=== PATIENT | male | born 1950 | race Caucasian/White ===

== ENCOUNTER 2023-10-12 18:34 | Emergency (ER) | payer MEDICARE, SELFPAY ==
[2023-10-12 18:38] VITALS: BP 168/75; PULSE 60; TEMP 36.6; O2SAT 96; BMI 31.6
--- NOTE | 2023-10-12 18:58 | XR_ITS ---
[facility] [id number] Patient Name: JOSÉ LUIS ENRIQUEZ MRN: [id number] date: 1950 Sex: M Assigned Patient Location: ER Current Patient Location: ED.MAIN Accession/Order Number: [id number] Exam Date: 10/12/2023 19:34 Report Date: 10/12/2023 21:35 At the request of: NOEMI BUCKLEY Procedure: XR foot LT min 3V XR foot LT min 3V 10/12/2023 7:34 PM EDT CLINICAL INDICATION: Left foot pain COMPARISON: 05/02/2022 TECHNIQUE: 3 views of the left foot. FINDINGS: Extensive postsurgical changes are redemonstrated with plate and screw fixation involving the mid and hindfoot with osteoarthritic changes. Lucencies are noted surrounding the paired hindfoot screws and compared midfoot screws. There are edematous changes of the lateral foot. No definite lytic lesions are seen. There is soft tissue edema of the lateral foot. Vascular calcifications are also present. XR/XR foot LT min 3V IMPRESSION: No definite lytic changes. There are lucencies noted surrounding the paired hindfoot and midfoot screws which may be related to loosening or infection. Three-phase bone scan as clinically warranted. Electronically authenticated by: RAD GRIGGS Date: 10/12/2023 21:35
[2023-10-12 19:24] LABS: Basophils Absolute Auto 0.1 10^3/uL (0.0-0.1); Basophils Percent Auto 0.9 % (0.2-2.0); Eosinophils Absolute Auto 0.4 10^3/uL (0.0-0.7); Eosinophils Percent Auto 4.4 % (0.9-7.0); Hematocrit 35.1 % (42.0-54.0); Immature Granulocytes Abs Auto 0.07 10^3/uL (0.00-0.03); Immature Granulocytes Pct Auto 0.8 % (0.0-0.5); Lymphocytes Absolute Auto 1.7 10^3/uL (1.2-3.8); Lymphocytes Percent Auto 19.6 % (20.5-60.0); Mean Corpuscular HGB Conc 31.3 g/dL (29.9-35.2); Mean Corpuscular Hemoglobin 28.1 pg (25.9-34.0); Mean Corpuscular Volume 89.8 fL (80.0-94.0); Mean Platelet Volume 8.8 fL (9.5-13.5); Monocytes Absolute Auto 0.6 10^3/uL (0.3-0.8); Monocytes Percent Auto 7.2 % (1.7-12.0); Neutrophils Absolute Auto 5.8 10^3/uL (1.4-6.5); Neutrophils Percent Auto 67.1 % (43.0-75.0); Platelet Count 276 10^3/uL (150-450); Red Blood Count 3.91 10^6/uL (4.70-6.10); Red Cell Distribution Width 15.2 % (11.0-15.0); White Blood Count 8.7 10^3/uL (4.0-11.0)
[2023-10-12 19:44] LABS: Alanine Aminotransferase 24 U/L (16-63); Albumin Globulin Ratio 0.8; Albumin Level 3.5 g/dL (3.4-5.0); Alkaline Phosphatase 91 U/L (46-116); Aspartate Amino Transferase 22 U/L (15-37); BUN Creatinine Ratio 15.7; Bilirubin Total 0.3 mg/dL (0.2-1.0); Calcium 8.9 mg/dL (8.5-10.1); Carbon Dioxide 28.3 mmol/L (21.0-32.0); Chloride 104 mmol/L (98-107); Estimated GFR (African America 54 (>=60); Estimated GFR (Non-African Ame 45 (>=60); Globulin 4.2 g/dL; Glucose 215 mg/dL (74-106); Potassium 4.3 mmol/L (3.5-5.1); Sodium 143 mmol/L (136-145); Total Protein 7.7 g/dL (6.4-8.2)
[2023-10-12] MEDS: VANCOMYCIN HCL 1,000 MG in 0.9 % SODIUM CHLORIDE 250 ML 250 MG IV (19:45)
[2023-10-12 19:47] VITALS: BP 148/74; PULSE 60; O2SAT 96
--- NOTE | 2023-10-12 19:51 | ED_ITS ---
Documented by User: Araceli Izabella 10/12/23 20:41 HPI - Extremity Problem General Chief complaint: Extremity Problem, Nontraumatic Stated complaint: LOWER EXTREMITY PAIN-SORE ON L FOOT/FRANCESCA Time Seen by Provider: 10/12/23 18:58 Source: patient Mode of arrival: Wheelchair History of Present Illness HPI Narrative: -year-old male with a history of peripheral neuropathy and type 2 diabetes presents here with a chief complaint of ulceration to the left lateral aspect of his foot. Patient had history of osteomyelitis with reconstructive surgery to this foot 3 years ago. Patient recently got a new diabetic shoe and had some blistering noted. He has an Measuring 1.5 x 1 cm in length and width of induration. Minimal fluctuance is noted in the sole of the foot. Patient states he Takes amoxicillin daily for this foot. He has seen Dr. Ma for reconstruction in the past. Patient's noted the blood on his sock today. They tried to call Francesca's office but he was closed. Patient denies any nausea fever or chills. Related Data Previous Rx's ?Medication ?Instructions ?Recorded amoxicillin 500 mg-potassium 1 tab PO Q12H #20 tabs 10/12/23 clavulanate 125 mg tablet (Augmentin) sulfamethoxazole 800 1 tab PO BID 10 days #20 tabs 10/12/23 mg-trimethoprim 160 mg tablet (Bactrim DS) Allergies Allergy/AdvReac Type Severity Reaction Status Date / Time No Known Drug Allergies Allergy Verified 10/12/23 18:46 Review of Systems ROS Narrative All Systems are negative except as noted/marked.All systems reviewed and otherwise negative Exam Narrative Exam Narrative: Nurses note and vital signs reviewed and patient is not hypoxic. General: The patient appears well and in no apparent distress. Patient is resting comfortably on cart. Skin: Warm, dry, no pallor noted. There is no rash noted. Head: Normocephalic, atraumatic Eye: Normal conjunctiva, no drainage, EOMI. PERRL Respiratory: Patient is in no distress, no accessory muscle use, lungs are clear to auscultation, no wheezing, rales or rhonchi Back: non-tender, no CVA tenderness bilaterally to percussion. GI: Normal bowel sounds, no tenderness to palpation, no masses appreciated. No rebound, guarding, or rigidity noted. Musculoskeletal: 1.5x1 cm ulceration to the left foot lateral asect. The patient has no evidence of calf tenderness, no pitting edema, symmetrical pulses noted bilaterally Neurological: A&O x4, normal speech Psychiatric: Cooperative Constitutional Vital Signs, click to edit/add: Last Vital Signs Temp 98 F 10/12/23 18:38 Pulse 60 10/12/23 19:47 Resp 18 10/12/23 19:47 BP 148/74 H 10/12/23 19:47 Pulse Ox 96 10/12/23 19:47 O2 Del Method Room Air 10/12/23 19:47 Course Vital Signs Vital signs: Vital Signs Temperature 98 F 10/12/23 18:38 Pulse Rate 60 10/12/23 18:38 Respiratory Rate 20 10/12/23 18:38 Blood Pressure 168/75 H 10/12/23 18:38 Pulse Oximetry 96 10/12/23 18:38 Temperature 98 F 10/12/23 18:38 Pulse Rate 60 10/12/23 19:47 Respiratory Rate 18 10/12/23 19:47 Blood Pressure 148/74 H 10/12/23 19:47 Pulse Oximetry 96 10/12/23 19:47 Oxygen Delivery Method Room Air 10/12/23 19:47 MDM - Extremity (Nontraumatic) Lab Data Labs: Lab Results 10/12/23 Range/Units 19:13 WBC 8.7 (4.0-11.0) 10^3/uL RBC 3.91 L (4.70-6.10) 10^6/uL Hgb 11.0 L (14.0-18.0) g/dL Hct 35.1 L (42.0-54.0) % MCV 89.8 (80.0-94.0) fL MCH 28.1 (25.9-34.0) pg MCHC 31.3 (29.9-35.2) g/dL RDW 15.2 H (11.0-15.0) % Plt Count 276 (150-450) 10^3/uL MPV 8.8 L (9.5-13.5) fL Neut % (Auto) 67.1 (43.0-75.0) % Lymph % (Auto) 19.6 L (20.5-60.0) % Mcpherson % (Auto) 7.2 (1.7-12.0) % Eos % (Auto) 4.4 (0.9-7.0) % Baso % (Auto) 0.9 (0.2-2.0) % Neut # (Auto) 5.8 (1.4-6.5) 10^3/uL Lymph # (Auto) 1.7 (1.2-3.8) 10^3/uL Mcpherson # (Auto) 0.6 (0.3-0.8) 10^3/uL Eos # (Auto) 0.4 (0.0-0.7) 10^3/uL Baso # (Auto) 0.1 (0.0-0.1) 10^3/uL Abs Immat Gran (auto) 0.07 H (0.00-0.03) 10^3/uL Imm/Tot Granulo (auto) 0.8 H (0.0-0.5) % ESR 89 H (<=20) mm/hr Sodium 143 (136-145) mmol/L Potassium 4.3 (3.5-5.1) mmol/L Chloride 104 (98-107) mmol/L Carbon Dioxide 28.3 (21.0-32.0) mmol/L Anion Gap 15.0 BUN 24.0 H (7.0-18.0) mg/dL Creatinine 1.53 H (0.70-1.30) mg/dL Est GFR ( Amer) 54 L (>=60) Est GFR (Non-Af Amer) 45 L (>=60) BUN/Creatinine Ratio 15.7 Glucose 215 H (74-106) mg/dL Calcium 8.9 (8.5-10.1) mg/dL Total Bilirubin 0.3 (0.2-1.0) mg/dL AST 22 (15-37) U/L ALT 24 (16-63) U/L Alkaline Phosphatase 91 (46-116) U/L C-Reactive Protein <0.50 (<=0.50) mg/dL Total Protein 7.7 (6.4-8.2) g/dL Albumin 3.5 (3.4-5.0) g/dL Globulin 4.2 g/dL Albumin/Globulin Ratio 0.8 Imaging Data Foot x-ray: Radiologist's impression: ITS Impressions Foot X-Ray 10/12/23 18:58 IMPRESSION: No definite lytic changes. There are lucencies noted surrounding the paired hindfoot and midfoot screws which may be related to loosening or infection. Three-phase bone scan as clinically warranted. Electronically authenticated by: RAD GRIGGS Date: 10/12/2023 21:35 Discharge Plan Discharge Stand Alone Forms: Portal Instructions Chief Complaint: Extremity Problem, Nontraumatic Clinical Impression: Foot ulcer Patient Disposition: Home, Self-Care Time of Disposition Decision: 21:45 Condition: Good Mode of Transportation: Private Vehicle Prescriptions / Home Meds: New sulfamethoxazole-trimethoprim [Bactrim DS] 800-160 mg tablet 1 tab PO BID 10 Days Qty: 20 0RF amoxicillin-pot clavulanate [Augmentin] 500-125 mg tablet 1 tab PO Q12H Qty: 20 0RF Print Language: Greek Instructions: Foot Ulcers in a Person with Diabetes (ED) Referrals: JANET PAEZ [Primary Care Provider] - 1 week Jude Ma DPM [Physician] - 10/15/23 (call for appointment sunday) Documented by User: Remberto Angeles MD 10/12/23 21:47 HPI - Extremity Problem General Chief complaint: Extremity Problem, Nontraumatic Stated complaint: LOWER EXTREMITY PAIN-SORE ON L FOOT/FRANCESCA Time Seen by Provider: 10/12/23 18:58 Related Data Previous Rx's ?Medication ?Instructions ?Recorded amoxicillin 500 mg-potassium 1 tab PO Q12H #20 tabs 10/12/23 clavulanate 125 mg tablet (Augmentin) sulfamethoxazole 800 1 tab PO BID 10 days #20 tabs 10/12/23 mg-trimethoprim 160 mg tablet (Bactrim DS) Allergies Allergy/AdvReac Type Severity Reaction Status Date / Time No Known Drug Allergies Allergy Verified 10/12/23 18:46 Exam Constitutional Vital Signs, click to edit/add: Last Vital Signs Temp 98 F 10/12/23 18:38 Pulse 60 10/12/23 19:47 Resp 18 10/12/23 19:47 BP 148/74 H 10/12/23 19:47 Pulse Ox 96 10/12/23 19:47 O2 Del Method Room Air 10/12/23 19:47 Course Vital Signs Vital signs: Vital Signs Temperature 98 F 10/12/23 18:38 Pulse Rate 60 10/12/23 18:38 Respiratory Rate 20 10/12/23 18:38 Blood Pressure 168/75 H 10/12/23 18:38 Pulse Oximetry 96 10/12/23 18:38 Temperature 98 F 10/12/23 18:38 Pulse Rate 60 10/12/23 19:47 Respiratory Rate 18 10/12/23 19:47 Blood Pressure 148/74 H 10/12/23 19:47 Pulse Oximetry 96 10/12/23 19:47 Oxygen Delivery Method Room Air 10/12/23 19:47 MDM - Extremity (Nontraumatic) MDM Narrative Medical decision making narrative: Blood work is nonspecific, ESR is elevated and WBC is normal. X-ray findings are discussed with the patient. He was given IV vancomycin here and prescribed Augmentin and Bactrim. He has an appointment with Dr. Ma in 3 days, Sunday, October 14. He will keep that appointment. Treatment diagnosis and follow- up were discussed with the patient Differential Diagnosis Differential diagnosis: Likely other (Abs thus, cellulitis, osteomyelitis) Lab Data Attestation: I reviewed the patient's lab results. Labs: Lab Results 10/12/23 Range/Units 19:13 WBC 8.7 (4.0-11.0) 10^3/uL RBC 3.91 L (4.70-6.10) 10^6/uL Hgb 11.0 L (14.0-18.0) g/dL Hct 35.1 L (42.0-54.0) % MCV 89.8 (80.0-94.0) fL MCH 28.1 (25.9-34.0) pg MCHC 31.3 (29.9-35.2) g/dL RDW 15.2 H (11.0-15.0) % Plt Count 276 (150-450) 10^3/uL MPV 8.8 L (9.5-13.5) fL Neut % (Auto) 67.1 (43.0-75.0) % Lymph % (Auto) 19.6 L (20.5-60.0) % Mcpherson % (Auto) 7.2 (1.7-12.0) % Eos % (Auto) 4.4 (0.9-7.0) % Baso % (Auto) 0.9 (0.2-2.0) % Neut # (Auto) 5.8 (1.4-6.5) 10^3/uL Lymph # (Auto) 1.7 (1.2-3.8) 10^3/uL Mcpherson # (Auto) 0.6 (0.3-0.8) 10^3/uL Eos # (Auto) 0.4 (0.0-0.7) 10^3/uL Baso # (Auto) 0.1 (0.0-0.1) 10^3/uL Abs Immat Gran (auto) 0.07 H (0.00-0.03) 10^3/uL Imm/Tot Granulo (auto) 0.8 H (0.0-0.5) % ESR 89 H (<=20) mm/hr Sodium 143 (136-145) mmol/L Potassium 4.3 (3.5-5.1) mmol/L Chloride 104 (98-107) mmol/L Carbon Dioxide 28.3 (21.0-32.0) mmol/L Anion Gap 15.0 BUN 24.0 H (7.0-18.0) mg/dL Creatinine 1.53 H (0.70-1.30) mg/dL Est GFR ( Amer) 54 L (>=60) Est GFR (Non-Af Amer) 45 L (>=60) BUN/Creatinine Ratio 15.7 Glucose 215 H (74-106) mg/dL Calcium 8.9 (8.5-10.1) mg/dL Total Bilirubin 0.3 (0.2-1.0) mg/dL AST 22 (15-37) U/L ALT 24 (16-63) U/L Alkaline Phosphatase 91 (46-116) U/L C-Reactive Protein <0.50 (<=0.50) mg/dL Total Protein 7.7 (6.4-8.2) g/dL Albumin 3.5 (3.4-5.0) g/dL Globulin 4.2 g/dL Albumin/Globulin Ratio 0.8 Imaging Data Foot x-ray: Radiologist's impression: ITS Impressions Foot X-Ray 10/12/23 18:58
[2023-10-12 19:59] LABS: Erythrocyte Sedimentation Rate 89 mm/hr (<=20)
[2023-10-12 20:00] LABS: C Reactive Protein <0.50 mg/dL (<=0.50)
[2023-10-12 21:58] VITALS: BP 154/70; PULSE 60; O2SAT 96
[2023-10-13 19:22] LABS: A. calcoaceticus-baumannii Cpx NOT DETECTED (NOT DETECTE); Bacteroides fragilis NOT DETECTED (NOT DETECTE); Candida albicans NOT DETECTED (NOT DETECTE); Candida auris NOT DETECTED (NOT DETECTE); Candida glabrata NOT DETECTED (NOT DETECTE); Candida krusei NOT DETECTED (NOT DETECTE); Candida parapsilosis NOT DETECTED (NOT DETECTE); Candida tropicalis NOT DETECTED (NOT DETECTE); Cryptococcus neoformans/gattii NOT DETECTED (NOT DETECTE); Enterobacter cloacae complex NOT DETECTED (NOT DETECTE); Enterobacterales NOT DETECTED (NOT DETECTE); Enterococcus faecalis NOT DETECTED (NOT DETECTE); Enterococcus faecium NOT DETECTED (NOT DETECTE); Haemophilus influenzae NOT DETECTED (NOT DETECTE); Klebsiella aerogenes NOT DETECTED (NOT DETECTE); Klebsiella pneumoniae group NOT DETECTED (NOT DETECTE); Listeria monocytogenes NOT DETECTED (NOT DETECTE); Neisseria meningitidis NOT DETECTED (NOT DETECTE); Proteus spp. NOT DETECTED (NOT DETECTE); Pseudomonas aeruginosa NOT DETECTED (NOT DETECTE); Salmonella spp. NOT DETECTED (NOT DETECTE); Serratia marcescens NOT DETECTED (NOT DETECTE); Staphylococcus epidermidis NOT DETECTED (NOT DETECTE); Staphylococcus lugdunensis NOT DETECTED (NOT DETECTE); Stenotrophomonas maltophilia NOT DETECTED (NOT DETECTE); Streptococcus agalactiae NOT DETECTED (NOT DETECTE); Streptococcus pneumoniae NOT DETECTED (NOT DETECTE); Streptococcus pyogenes NOT DETECTED (NOT DETECTE); Streptococcus spp. NOT DETECTED (NOT DETECTE)
[2023-10-13 20:19] LABS: Staphylococcus spp. DETECTED (NOT DETECTE)
[2023-10-13 20:36] LABS: Source BLOOD
== END 2023-10-12 22:31 | disposition home or self-care (01) ==
PROVIDERS: Physician Assistant; Emergency Provider Emergency Medicine; PCP Student in an Organized Health Care Education/Training Program
DX: E11.621 Type 2 diabetes mellitus with foot ulcer (principal); L97.529 Non-pressure chronic ulcer of other part of left foot with unspecified severity; E11.42 Type 2 diabetes mellitus with diabetic polyneuropathy
CPT/HCPCS: 36415; 73630; 80053; 85025; 85652; 86140; 87040; 87070; 87150; 87186; 96365; 99284; J3370

== ENCOUNTER 2023-10-15 15:12 | Outpatient (OUT) | payer MEDICARE, SELFPAY | END 2023-10-15 15:13 | disposition home or self-care (01) | LOC: WC 15:12 | PROVIDERS: PCP Student in an Organized Health Care Education/Training Program; Visit Provider Physician Assistant | DX: E11.621 Type 2 diabetes mellitus with foot ulcer (principal); L97.422 Non-pressure chronic ulcer of left heel and midfoot with fat layer exposed | CPT/HCPCS: A6213; G0463 ==

== ENCOUNTER 2023-10-22 15:19 | Outpatient (OUT) | payer MEDICARE, SELFPAY | END 2023-10-22 15:20 | disposition home or self-care (01) | LOC: WC 15:19 | PROVIDERS: PCP Student in an Organized Health Care Education/Training Program; Visit Provider Physician Assistant | DX: E11.621 Type 2 diabetes mellitus with foot ulcer (principal); L97.422 Non-pressure chronic ulcer of left heel and midfoot with fat layer exposed | CPT/HCPCS: 29445; A6213 ==

== ENCOUNTER 2023-10-26 09:30 | Outpatient (OUT) | payer MEDICARE, SELFPAY | END 2023-10-26 09:31 | disposition home or self-care (01) | LOC: WC 10-31 09:03 | PROVIDERS: PCP Student in an Organized Health Care Education/Training Program; Visit Provider Podiatrist Foot & Ankle Surgery | DX: E11.621 Type 2 diabetes mellitus with foot ulcer (principal); L97.422 Non-pressure chronic ulcer of left heel and midfoot with fat layer exposed | CPT/HCPCS: A6213; G0463 ==

== ENCOUNTER 2023-11-06 15:44 | Outpatient (OUT) | payer MEDICARE, SELFPAY | END 2023-11-06 15:45 | disposition home or self-care (01) | LOC: WC 15:44 | PROVIDERS: PCP Student in an Organized Health Care Education/Training Program; Visit Provider Podiatrist Foot & Ankle Surgery | DX: E11.621 Type 2 diabetes mellitus with foot ulcer (principal); L97.422 Non-pressure chronic ulcer of left heel and midfoot with fat layer exposed | CPT/HCPCS: 11043; A6213 ==

== ENCOUNTER 2023-11-07 19:40 | Inpatient (IN) | payer MEDICARE, SELFPAY ==
[2023-11-07 19:45] VITALS: BP 134/64; PULSE 60; TEMP 36.8; O2SAT 94; BMI 31.6
--- NOTE | 2023-11-07 19:54 | XR_ITS ---
The [address] [address] Patient Name: JOSÉ LUIS ENRIQUEZ MRN: [id number] date: 1950 Sex: M Assigned Patient Location: ER Current Patient Location: ED.MAIN Accession/Order Number: [id number] Exam Date: 11/07/2023 20:00 Report Date: 11/07/2023 21:17 At the request of: DIMA MATAMOROS Procedure: XR foot LT min 3V EXAM: XR foot LT min 3V , 11/07/2023 HISTORY: foot infection, surgery to diabetic ulcer on 5mtp COMPARISON: Previous x-ray from 10/12/2023 TECHNIQUE: X-rays of the left foot 3 views. FINDINGS: Extensive fixation hardware and surgical changes are seen in the left foot which appears without significant change compared to previous imaging. Underlying osteopenia and degenerative changes are noted. Hallux valgus deformity. Degenerative changes at the interphalangeal and metatarsophalangeal joints of the first digit. No obvious evidence of osteomyelitis. XR/XR foot LT min 3V IMPRESSION: No radiographic evidence of acute osteomyelitis left foot. Extensive postsurgical and degenerative changes with osteopenia left foot. Electronically authenticated by: LORENA BURK Date: 11/07/2023 21:17
--- NOTE | 2023-11-07 19:55 | ED.GENADUL1 ---
HPI HPI - General Adult General Chief complaint: Wound/Laceration Stated complaint: wound check Time Seen by Provider: 11/07/23 19:40 Source: patient Mode of arrival: Wheelchair Limitations: no limitations History of Present Illness HPI narrative: Patient is a 72-year-old male with a history of diabetes and peripheral neuropathy who presents to the emergency department for redness and pain to the left foot. He has a history of Charcot foot, he has had diabetic foot ulcers debrided in the past and does have a history of osteomyelitis. He saw Dr. Tk Aguayo's office yesterday for debridement of a wound to the left lateral foot over the fifth metatarsal. There was minimal surrounding erythema prior to the surgery but today the patient woke up with worsening redness, swelling and pain over the foot. His daughter feels as though the left leg is warm but there has been no redness of the leg. Patient has not had any fevers or vomiting. No drainage. He takes amoxicillin as a chronic maintenance medication and is back on that medication since his surgery in the office yesterday. He was not prescribed any additional or different antibiotics. Related Data Home Medications ?Medication ?Instructions ?Recorded ?Confirmed alprazolam 0.25 mg tablet 0.25 mg PO .Q8 PRN anxiety 11/07/23 11/07/23 amiodarone 200 mg tablet 200 mg PO DAILY 11/07/23 11/07/23 amlodipine 5 mg tablet 5 mg PO DAILY 11/07/23 11/07/23 apixaban 5 mg tablet (Eliquis) 5 mg PO BID 11/07/23 11/07/23 aripiprazole 10 mg tablet 10 mg PO DAILY 11/07/23 11/07/23 atorvastatin 80 mg tablet 80 mg PO DAILY 11/07/23 11/07/23 carbidopa 25 mg-levodopa 100 mg 1 tab PO QID 11/07/23 11/07/23 tablet cyanocobalamin (vitamin B-12) 1,000 mcg IM .Q 30 Days 11/07/23 11/07/23 1,000 mcg/mL injection solution empagliflozin 10 mg tablet 10 mg PO DAILY 11/07/23 11/07/23 (Jardiance) enalapril maleate 10 mg tablet 10 mg PO Q12H 11/07/23 11/07/23 furosemide 20 mg tablet mg 11/07/23 glimepiride 2 mg tablet 2 mg PO TID 11/07/23 11/07/23 insulin aspart U-100 100 unit/mL 10 unit subcut .QHS 11/07/23 11/07/23 (3 mL) subcutaneous pen (Novolog FlexPen U-100 Insulin aspart) isosorbide mononitrate 60 mg 60 mg PO DAILY 11/07/23 11/07/23 tablet,extended release 24 hr lamotrigine 200 mg tablet 200 mg PO DAILY 11/07/23 11/07/23 levothyroxine 150 mcg tablet mcg 11/07/23 levothyroxine 175 mcg tablet 175 mcg PO QAM 11/07/23 11/07/23 metformin 1,000 mg tablet 1,000 mg PO BID 11/07/23 11/07/23 pantoprazole 40 mg tablet,delayed 40 mg PO DAILY 11/07/23 11/07/23 release potassium chloride 20 mEq 20 meq PO DAILY 11/07/23 11/07/23 tablet,extended release spironolactone 25 mg tablet 25 mg PO DAILY 11/07/23 11/07/23 tamsulosin 0.4 mg capsule 0.4 mg PO Q24H 11/07/23 11/07/23 torsemide 20 mg tablet 20 mg PO DAILY 11/07/23 11/07/23 trihexyphenidyl 2 mg tablet 2 mg PO DAILY 11/07/23 11/07/23 umeclidinium 62.5 mcg-vilanterol 1 inh inhalation Q24H 11/07/23 11/07/23 25 mcg/actuation powdr for inhalation (Anoro Ellipta) warfarin 4 mg tablet 4 mg PO DAILY 11/07/23 11/07/23 Previous Rx's ?Medication ?Instructions ?Recorded amoxicillin 500 mg-potassium 1 tab PO Q12H #20 tabs 10/12/23 clavulanate 125 mg tablet (Augmentin) Allergies Allergy/AdvReac Type Severity Reaction Status Date / Time No Known Drug Allergies Allergy Verified 11/07/23 19:45 Opioid HPI Opioid Management Most Recent Opioid Data: No Data to Display Review of Systems ROS Constitutional Denies: fever or chills Ears, nose, mouth, and throat Denies: throat pain or nasal congestion Respiratory Denies: shortness of breath Gastrointestinal Denies: nausea or vomiting Musculoskeletal Denies: back pain Integumentary/Breast Reports: redness, skin pain and skin tenderness; Denies: rash Hematologic/Lymphatic Denies: easy bruising or easy bleeding Exam Narrative Exam Narrative: Gen.: Awake, alert, in no distress Head: Normocephalic, atraumatic ENT: Moist mucous membranes Respiratory: No respiratory distress Extremities: 3 x 2 cm ulcerated area to the left lateral foot over the fifth metatarsal. No bony exposure noted. Blanching erythema and edema noted over the lateral and dorsal aspect of the left foot. No swelling or redness noted to the plantar aspect of the left foot. No red streaking to the leg. Psych: Normal mood and affect Neuro: No focal neuro deficit Skin: Warm, dry, intact Constitutional Vital Signs, click to edit/add: Last Vital Signs Temp 98.2 F 11/07/23 19:45 Pulse 60 11/07/23 19:45 Resp 18 11/07/23 19:45 BP 134/64 11/07/23 19:45 Pulse Ox 94 L 11/07/23 19:45 O2 Del Method Room Air 11/07/23 19:45 Course Vital Signs Vital signs: Vital Signs Temperature 98.2 F 11/07/23 19:45 Pulse Rate 60 11/07/23 19:45 Respiratory Rate 18 11/07/23 19:45 Blood Pressure 134/64 11/07/23 19:45 Pulse Oximetry 94 L 11/07/23 19:45 Oxygen Delivery Method Room Air 11/07/23 19:45 Temperature 98.2 F 11/07/23 19:45 Pulse Rate 60 11/07/23 19:45 Respiratory Rate 18 11/07/23 19:45 Blood Pressure 134/64 11/07/23 19:45 Pulse Oximetry 94 L 11/07/23 19:45 Oxygen Delivery Method Room Air 11/07/23 19:45 Medical Decision Making MDM Narrative Medical decision making narrative: Lab studies show normal white blood cell count although CRP and sed rates are elevated with stable chronic kidney disease. X-rays do not show any evidence of abscess or osteomyelitis at this time. Patient treated with IV Zosyn and vancomycin and case was discussed with Dr. Cruz for podiatry. We will observe the patient overnight for IV antibiotics and podiatry will see the patient in the morning, possible procedure versus conservative management. Patient verbalizes understanding. Stable at time of admission to the hospitalist for observation. Medical Records Medical records reviewed: Yes I reviewed the patient's medical records Lab Data Lab results reviewed: Yes I reviewed the patient's lab results Labs: Lab Results 11/07/23 Range/Units 20:11 WBC 9.2 (4.0-11.0) 10^3/uL RBC 3.65 L (4.70-6.10) 10^6/uL Hgb 10.2 L (14.0-18.0) g/dL Hct 33.3 L (42.0-54.0) % MCV 91.2 (80.0-94.0) fL MCH 27.9 (25.9-34.0) pg MCHC 30.6 (29.9-35.2) g/dL RDW 14.3 (11.0-15.0) % Plt Count 265 (150-450) 10^3/uL MPV 9.2 L (9.5-13.5) fL Neut % (Auto) 70.6 (43.0-75.0) % Lymph % (Auto) 18.1 L (20.5-60.0) % Collin % (Auto) 8.4 (1.7-12.0) % Eos % (Auto) 1.7 (0.9-7.0) % Baso % (Auto) 0.5 (0.2-2.0) % Neut # (Auto) 6.5 (1.4-6.5) 10^3/uL Lymph # (Auto) 1.7 (1.2-3.8) 10^3/uL Collin # (Auto) 0.8 (0.3-0.8) 10^3/uL Eos # (Auto) 0.2 (0.0-0.7) 10^3/uL Baso # (Auto) 0.1 (0.0-0.1) 10^3/uL Abs Immat Gran (auto) 0.06 H (0.00-0.03) 10^3/uL Imm/Tot Granulo (auto) 0.7 H (0.0-0.5) % ESR 107 H (<=20) mm/hr Sodium 140 (136-145) mmol/L Potassium 4.1 (3.5-5.1) mmol/L Chloride 102 (98-107) mmol/L Carbon Dioxide 29.3 (21.0-32.0) mmol/L Anion Gap 12.8 BUN 25.0 H (7.0-18.0) mg/dL Creatinine 1.80 H (0.70-1.30) mg/dL Est GFR ( Amer) 45 L (>=60) Est GFR (Non-Af Amer) 37 L (>=60) BUN/Creatinine Ratio 13.9 Glucose 252 H (74-106) mg/dL Lactate 3.6 H* (0.4-2.0) mmol/L Calcium 8.4 L (8.5-10.1) mg/dL C-Reactive Protein 2.65 H (<=0.50) mg/dL Imaging Data XR foot: Attestation: I have reviewed the pertinent imaging results. Discharge Plan Discharge Chief Complaint: Wound/Laceration Patient Disposition: Admitted as Observation Time of Disposition Decision: 21:03
--- NOTE | 2023-11-07 20:13 | PC.NURSE ---
Wound to left outer foot, round/oval in shape with white center with slight redness surrounding, serous drainage to old dressing.
[2023-11-07 20:38] LABS: Basophils Absolute Auto 0.1 10^3/uL (0.0-0.1); Basophils Percent Auto 0.5 % (0.2-2.0); Eosinophils Absolute Auto 0.2 10^3/uL (0.0-0.7); Eosinophils Percent Auto 1.7 % (0.9-7.0); Hematocrit 33.3 % (42.0-54.0); Hemoglobin 10.2 g/dL (14.0-18.0); Immature Granulocytes Abs Auto 0.06 10^3/uL (0.00-0.03); Immature Granulocytes Pct Auto 0.7 % (0.0-0.5); Lymphocytes Absolute Auto 1.7 10^3/uL (1.2-3.8); Lymphocytes Percent Auto 18.1 % (20.5-60.0); Mean Corpuscular HGB Conc 30.6 g/dL (29.9-35.2); Mean Corpuscular Hemoglobin 27.9 pg (25.9-34.0); Mean Corpuscular Volume 91.2 fL (80.0-94.0); Mean Platelet Volume 9.2 fL (9.5-13.5); Monocytes Absolute Auto 0.8 10^3/uL (0.3-0.8); Monocytes Percent Auto 8.4 % (1.7-12.0); Neutrophils Absolute Auto 6.5 10^3/uL (1.4-6.5); Neutrophils Percent Auto 70.6 % (43.0-75.0); Platelet Count 265 10^3/uL (150-450); Red Blood Count 3.65 10^6/uL (4.70-6.10); Red Cell Distribution Width 14.3 % (11.0-15.0); White Blood Count 9.2 10^3/uL (4.0-11.0)
[2023-11-07 20:41] LABS: Erythrocyte Sedimentation Rate 107 mm/hr (<=20)
[2023-11-07 20:55] LABS: Anion Gap 12.8; BUN Creatinine Ratio 13.9; C Reactive Protein 2.65 mg/dL (<=0.50); Calcium 8.4 mg/dL (8.5-10.1); Carbon Dioxide 29.3 mmol/L (21.0-32.0); Chloride 102 mmol/L (98-107); Estimated GFR (African America 45 (>=60); Estimated GFR (Non-African Ame 37 (>=60); Glucose 252 mg/dL (74-106); Potassium 4.1 mmol/L (3.5-5.1); Sodium 140 mmol/L (136-145)
[2023-11-07 21:02] LABS: Lactate/Lactic Acid 3.6 mmol/L (0.4-2.0)
[2023-11-07] MEDS: PIPERACILLIN SODIUM/TAZOBACTAM 3.375 GM in 0.9 % SODIUM CHLORIDE 50 ML IV (21:27)
[2023-11-07 21:31] VITALS: BP 119/50; PULSE 60; O2SAT 94
[2023-11-07] MEDS: VANCOMYCIN HCL 1,500 MG in 0.9 % SODIUM CHLORIDE 500 ML 250 MG IV (22:08)
[2023-11-07 22:27] VITALS: BP 158/78; PULSE 60; TEMP 36.9; O2SAT 95; BMI 31.8
--- OUTSIDE RECORDS SUMMARY | 2023-11-07 22:27 | XMS_ITS | CCD ---
Author Organization [facility] Care Team Providers Care Mimeographer Name Role Phone Unavailable Unavailable Mona Baker Unavailable Mona Baker MD Primary Care Provider Mona Baker Primary Care Physician [phone] Luna Frank Unavailable Unavailable January Bravo Unavailable Unavailable Giselle Kelly Unavailable Unavailable Mona Baker MD Primary Care Provider [phone] Janusz Ruiz Unavailable MD Mona Baker Primary Care Provider Unavaila MD Janusz Contreras Emergency Provider [phone] DO Janusz Davidson Admit Provider [phone] DO Janusz Davidson Attending Provider [phone] MD Bill Mcgee Other Provider [phone] MD Andi Ware Attending Provider DO Janusz Davidson Other Provider Bill Mcgee Unavailable Dr. Mona Baker Primary Care Unavail able Dr. Jackie Mcginnis Attending Unavailable SnehalDr. Francisco chau Referring Unavailabl e Dr. Mona Baker Primary Care Unavail able Dr. Jackie Mcginnis Attending Unavailable JOHN PAUL PRINCE Admitting Unavailable JOHN PAUL PRINCE Attending Unavailable JANET BAKER Primary Care Unavailable JOHN PAUL PRINCE Admitting Unavailable HIGHLANDER, JOHN PAUL James Attending Unavailable OLIVIA, [facility] Care Unavailable ENOC BACA Consulting Unavailable HIGHLANDER, JOHN PAUL James Consulting Unavailable HIGHLANDER, JOHN PAUL James Admitting Unavailable HIGHLANDER, JOHN PAUL James Attending Unavailable OLIVIA, [facility] Care Unavailable HIGHLANDER, JOHN PAUL James Admitting Unavailable OLIVIA, [facility] Care Unavailable HIGHLANDER, JOHN PAUL James Attending Unavailable HIGHLANDER, JOHN PAUL James Admitting Unavailable HIGHLANDER, JOHN PAUL James Attending Unavailable OLIVIA, [facility] Care Unavailable HIGHLANDER, JOHN PAUL James Admitting Unavailable HIGHLANDER, JOHN PAUL James Attending Unavailable OLIVIA, [facility] Unavailable ZIEBER, DR TERRY Caputo Consulting Unavailable HIGHLANDER, JOHN PAUL James Consulting Unavailable HIGHLANDER, JOHN PAUL James Admitting Unavailable OLIVIA, [facility] Care Unavailable HIGHLANDER, JOHN PAUL James Attending Unavailable HIGHLANDER, JOHN PAUL James Admitting Unavailable OLIVIA, [facility] Care Unavailable HIGHLANDER, JOHN PAUL James Attending Unavailable HIGHLANDER, JOHN PAUL James Admitting Unavailable HIGHLANDER, JOHN PAUL James Attending Unavailable OLIVIA, [facility] Care Unavailable HIGHLANDER, JOHN PAUL James Admitting Unavailable HIGHLANDER, JOHN PAUL James Attending Unavailable OLIVIA, [facility] Care Unavailable HIGHLANDER, JOHN PAUL James Admitting Unavailable HIGHLANDER, JOHN PAUL James Attending Unavailable OLIVIA, [facility] Care Unavailable HIGHLANDER, JOHN PAUL James Admitting Unavailable HIGHLANDER, JOHN PAUL James Attending Unavailable OLIVIA, [facility] Unavailable ZIEBER, DR TERRY Caputo Consulting Unavailable [facility]UL James Consulting Un[facility] [place] [facility], Dr. Mona Jules Primary Care Unavail able Kilbane, Dr. Mejia Attending Unavailable Kilbane, Dr. Mejia Referring Unavailable Olivia, Dr. Mona Jules Primary Care Unavail able Kilbane, Dr. Mejia Attending Unavailable Kilbane, Dr. Mejia Referring Unavailable Olivia, Dr. Mona Jules Primary Care Unavail able Olivia, Dr. Mona Jules Primary Care Unavail able Olivia, Dr. Mona Jules Primary Care Unavail able Olivia, Dr. Mona Jules Primary Care Unavail able Felipa Milligan Attending Unavailable Felipa Milligan Referring Unavailable MilliganFelipa mario Referring Unavailable Olivia, Dr. Mona Jules Primary Care Unavail able Felipa Milligan Attending Unavailable Olivia MD Mona Edwards Primary Care Provider Elly Hayes Unavailable [phone] MD Olivia [place] Primary Care Provider Unavaila MD Lorenzo Quinn Emergency Provider [phone] MD Olivia Mona Primary Care Provider MD Lorenzo Petty Emergency Provider MD Bill Mcgee Attending Provider Bill Mcgee Admitting Unavailable Bill Mcgee Attending Unavailable Olivia, [facility] Care Unavailable Lorenzo Petty Admitting Unavailable Lorenzo Petty Attending Unavailable Olivia, [facility] Care Unavailable KEISHA BRAMBILA Attending Unavailable OLIVIA, [facility] Care Unavailable KEISHA BRAMBILA Attending Unavailable OLIVIA, [facility] Care Unavailable Olivia MD [facility] Primary [facility] Provider JACKIE MCGINNIS Attending Unavailable OLIVIA, [facility] Care Unavailable MILLIGANFELIPA Attending Unavailable EYAD MIMS Referring Unavailable OLIVIA, [facility] Care Unavailable MILLIGANFELIPA Referring Unavailable OLIVIA, [facility] Care Unavailable ABEBA PETTY Attending Unavailable MILLIGANFELIPA Attending Unavailable MILLIGANFELIPA Referring Unavailable OLIVIA, [facility] Care Unavailable OLIVIA, MONA M Attending Unavailable RUSPRINCESS LARSON Attending Unavailable OLIVIA, MONA M Attending Unavailable RUSHERPRINCESS Attending Unavailable OLIVIAMONA M Attending Unavailable OLIVIA, MONA M Attending Unavailable RUSHERPRINCESS Attending Unavailable OLIVIA, MONA M Referring Unavailable OLIVIA, MONA M Attending Unavailable RUSPRINCESS LARSON Attending Unavailable Olivia MD [facility] Provider YE LOBO Attending Unavailable OLIVIA, [facility] Care Unavailable Armani Yarbrough Attending Unavailable Armani Yarbrough Admitting Unavailable Eyad Mims Consulting Unavailable Gissel HINDS Admitting Unavailable Delvin SANTANA Attending Unavailable McGuinn, Eyad P Consulting Unavailable McGuinn, Eyad P Consulting Unavailable McGuinn, Eyad P Consulting Unavailable McGuinn, Eyad P Consulting Unavailable McGuinn, Eyad P Consulting Unavailable McGuinn, Eyad P Consulting Unavailable McGuinn, Eyad P Consulting Unavailable McGuinn, Eyad P Consulting Unavailable Erik Rosi Admitting Unavailable Olaf SINCLAIR Attending Unavailable Blank, Janusz Woods Admitting Unavailable Blank, Janusz Woods Attending Unavailable Armani Yarbrough Attending Unavailable Linnea, Armani Attending Unavailable NONE, XXXX Referring Unavailable Nicolás Diggs Attending Unavailable WARE, Andi R Admitting Unavailable WARE, Andi R Referring Unavailable WARE, Andi R Attending Unavailable WARE, Andi Caputo Attending Unavailable WARE, Andi R Admitting Unavailable WARE, Andi R Referring Unavailable Milligan, Felipa Referring Unavailable Milligan, Felipa Attending Unavailable Milligan, Felipa Admitting Unavailable McGuinn, Eyad P Admitting Unavailable McGuinn, Eyad P Referring Unavailable McGuinn, Eyad P Attending Unavailable McGuinn, Eyad P Attending Unavailable McGuinn, Eyad P Admitting Unavailable McGuinn, Eyad P Referring Unavailable McGuinn, Eyad Leahy Attending Unavailable McGuinn, Eyad P Admitting Unavailable McGuinn, Eyad P Referring Unavailable WARE, Andi R Admitting Unavailable WARE, Andi R Referring Unavailable WARE, Andi R Attending Unavailable NAVJOTIRKEISHA Carter Referring Unavailable QUIRK, KEISHA James Attending Unavailable NAVJOTIRKEISHA Carter Admitting Unavailable OliviaMona kennedy Attending Unavailable OliviaMona Admitting Unavailable Milligan, Felipa Attending Unavailable Milligan, Felipa Admitting Unavailable Blank, Janusz S Attending Unavailable Blank, Janusz S Admitting Unavailable Blank, Janusz Woods Admitting Unavailable Blank, Janusz Woods Attending Unavailable WARE, Andi Caputo Attending Unavailable WARE, Andi R Referring Unavailable QUIRKKEISHA Attending Unavailable QUIRKKEISHA Admitting Unavailable WARE, Andi R Admitting Unavailable WARE, Andi R Attending Unavailable Allergies Allergy Classification Reported Allergen(s) Allergy Type Date of Onset Reaction(s) Facility (6 sources) Piperacillin / tazobactam; Translations: [PIPERACILLIN-HARITHA OBACTAM] Drug Allergy 1 GI Intolerance [facility] (1 source) Piperacillin / tazobactam Drug Allergy 1 [facility] Repository (2 sources) Piperacillin / tazobactam Drug Allergy 1 [facility] [employer] Medications Current Medications Medication Drug Class(es) Dates Sig (Normalized) Sig (Original) acetaminophen 325 mg oral tablet (20 sources) Start: 01-28-2018 End: 05-12-2022 take 2 tablets by mouth every six hours as needed for pain acetaminophen 325 mg Tab 650 mg = 2 tab(s), Oral, q6hr, PRN Pain, Refills(s) 0, Pain Start Date: 01/28/18 Status: Ordered acetaminophen (T ylenol) 325 mg tablet Take by mouth every 6 hours if needed for mild pain (1 - 3). Active [id number] 200 actuat albuterol 0.09 mg/actuat metered dose inhaler (20 sources) beta2-Adrenergic Agonist Start: 02-10-2021 take 2 puff(s) by inhalation every four hours albuterol 90 mcg/actuation inhaler Inhale 2 puffs every 4 hours if needed. 02/10/2021 Active Start: 02-10-2021 take 2 puff(s) by mo uth every four hours as needed Albuterol Sulfate HFA 108 (90 Base) MCG/ACT Inhalation Aerosol Solution INHALE 2 PUFFS BY MOUTH EVERY 4 HOURS NEEDED Quantity: 9 Refills: 0 Ordered: 10-Feb-2021 DO Start : 10-Feb-2021 Active Start: 12-07-2019 take 2 puff(s) by in halation every four hours Pro-Air HFA CFC free 90 mcg/inh MDI 2 puff(s), Inhalation, q4hr Shortness of breath or wheezing, Refill(s) 0 Start Date: 12/07/19 Status: Ordered Start: 02-05-2018 take 1 puff(s) by in halation every four hours Albuterol Sulfate Active 2 PUFF INHALATION Q4H February 05, 2018 12:00am ProAir HFA Activ e take 2 puff(s) by in halation every six hours as needed for wheezing albuterol 108 (90 Base) MCG/ACT inhaler Inhale 2 puffs every 6 hours as needed for wheezing. 0 Active albuterol 0.833 mg/ml / ipratropium bromide 0.167 mg/ml inhalation solution (13 sources) Anticholinergic, beta2-Adrenergic Agonist Start: 03-13-2023 take 3 mL by inhalation four times daily DuoNeb 2.5 mg-0.5 mg/3 mL Soln-Inh 3 mL, Inhalation, QID, 1 EA, Refill(s) 0, [facility], 172.7, cm, 03/09/23 15:05:00 EDT, Height/Length Dosing, 104.5, kg, 03/09/23 15:05:00 EDT, Weight Dosing Start Date: 03/13/23 Status: Ordered ALPRAZolam 0.25 mg oral tablet (20 sources) Benzodiazepine Start: 05-12-2022 End: 09-06-2023 take 1 tablet by mouth twice daily Alprazolam (Xanax) 0.25 mg Tablet Discontinued 0.25 MG PO Twice daily June 17, 2023 1:00am September 06, 2023 7:26am Start: 10-10-2021 End: 10-15-2021 take 1 tablet by mouth twice daily Xanax 0.25 mg Tab 0.25 mg = 1 tab(s), Oral, BID, F41.9 anxiety, X 5 day(s), # 10 tab(s), Refills(s) 0 Start Date: 10/10/21 Stop Date: 10/15/21 Status: Ordered Start: 09-27-2021 End: 10-30-2023 take 1 tablet by mouth three times daily as needed for anxiety alprazolam 0.25 mg Tab 0.25 mg = 1 tab(s), Oral, TID, PRN anxiety, # 30 tab(s), Refills(s) 2, other reason (Rx) Start Date: 02/13/22 Status: Ordered Start: 06-21-2021 End: 09-27-2021 take 1 tablet by mouth twice daily as needed for anxiety ALPRAZolam (XANAX) 0.25 MG tablet Indications: Generalized anxiety disorder Take 1 (one) tablet (0.25 mg total) by mouth 2 (two) times a day as needed for anxiety . 180 tablet 0 06/21/2021 09/27/2021 Discontinued (Reorder) Start: 12-21-2020 take 0.25 mg by mout h once daily Alprazolam Active 0.25 MG PO every day at noon May 12, 2022 12:00am Start: 12-21-2020 ALPRAZolam 0.2 5 MG Oral Tablet Quantity: 60 Refills: 0 Ordered: 21-Dec-2020 DO Start : 21-Dec-2020 Active Start: 02-05-2018 End: 02-24-2021 take 1 tablet by mouth twice daily Alprazolam (Xanax) 0.25 mg Tablet Discontinued 0.25 MG PO Twice daily February 05, 2018 12:00am February 24, 2021 10:57am amiodarone hydrochloride 200 mg oral tablet (20 sources) Antiarrhythmic Start: 03-13-2023 End: 10-17-2023 take 1.5 tablets by mouth once daily amiodarone (Pacerone) 200 mg tablet Indications: Paroxysmal atrial fibrillation (Multi) Take 1.5 tablets (300 mg) by mouth once daily. 135 tablet 1 03/13/2023 10/17/2023 Discontinued (Other) Start: 05-10-2022 take 300 mg by mouth once zhanna y amiodarone 300 mg, Oral, Daily, Refills(s) 0 Start Date: 05/10/22 Status: Ordered Start: 05-10-2021 End: 01-07-2022 Amiodarone (Pacerone) 200 mg tablet Active 300 MG PO Every morning May 10, 2021 12:00am Start: 05-05-2021 take 200 mg by mouth once zhanna y amiodarone 200 mg, Oral, Daily, Refills(s) 0 Start Date: 05/10/22 Status: Ordered Start: 03-16-20[facility] (Pacerone) 200 mg tablet Active 200 MG PO Twice daily May 10, 2021 12:00am Start: 03-15-2021 take 2 tablets by [facility] twice daily Amiodarone HCl - 200 MG Oral Tablet TAKE 2 TABLETS TWO TIMES DAILY Quantity: 120 Refills: 5 Ordered: 15-Mar-2021 Felipa Milligan MD Start : 15-Mar-2021 Active take 3 tablets by mo [facility] once daily amiodarone (Pacerone) 100 MG tablet Take 300 mg by mouth daily. 0 Active take 1.5 tablets by mouth once daily Amiodarone HCl - 200 MG Oral Tablet TAKE 1.5 TABLET Daily Quantity: 135 Refills: 3 Ordered: 22-Sep-2022 Felipa Milligan MD Active amoxicillin 500 mg oral capsule (20 sources) Penicillin-class Antibacterial Start: 02-24-2021 take 500 mg by mouth once daily Amoxicillin Active 500 MG PO Daily February 24, 2021 12:00am Start: 11-03-2020 take 1 capsule by [facility] twice daily amoxicillin 500 mg Cap 500 mg = 1 cap(s), Oral, BID, Dr. Ruiz, Refills(s) 0 Start Date: 02/22/22 Status: Ordered Start: 11-03-2020 Amoxicillin 50 0 MG Oral Capsule Quantity: 180 Refills: 0 Ordered: 25-Feb-2021 DO Start : 03-Nov-2020 Active take 1 tablet by lashawn once daily amoxicillin (Amoxil) 500 MG tablet Take 500 mg by mouth daily. 0 Active Anoro Ellipta 62.5 mcg-25 mc g inhalation powder (20 sources) Start: 04-09-2023 End: 10-06-2023 Anoro Ellipta 62.5 mcg-25 mc g inhalation powder 1 inh, Inhalation, Daily for 30 day(s), 30 blister(s), Refill(s) 5, [facility], 177, cm, 04/09/23 9:40:00 EST, Height/Length Dosing, 99.6, kg, 04/09/23 9:40:00 EST, Weight Dosing Start Date: 04/09/23 Stop Date: 10/06/23 Status: Ordered Start: 03-31-2022 End: 09-27-2022 Anoro Ellipta 62.5 mcg-25 mc g inhalation powder 1 inh, Inhalation, Daily for 30 day(s), 1 packet(s), Refill(s) 5, [facility], 178, cm, 03/31/22 9:44:00 EDT, Height/Length Dosing, 104.5, kg, 03/31/22 9:44:00 EDT, Weight Dosing Start Date: 03/31/22 Stop Date: 09/27/22 Status: Ordered Start: 08-03-2021 Anoro Ellipta 62.5 mcg-25 mcg inhalation powder 1 inh, Inhalation, Daily, 30 blister(s), Refill(s) 5, [facility] 1986, 178, cm, 08/03/21 11:33:00 EST, Height/Length Dosing, 102.7, kg, 08/03/21 11:33:00 EST, Weight Dosing Start Date: 08/03/21 Status: Ordered Start: 08-03-2021 End: 01-30-2022 Anoro Ellipta 62.5 mcg-25 mc g inhalation powder 1 inh, Inhalation, Daily for 30 day(s), 30 blister(s), Refill(s) 5, [facility] 1986, 178, cm, 08/03/21 11:33:00 EST, Height/Length Dosing, 102.7, kg, 08/03/21 11:33:00 EST, Weight Dosing Start Date: 08/03/21 Stop Date: 01/30/22 Status: Ordered Anoro Ellipta 62.5-25 MCG/INH (5 sources) take 1 puff(s) by inhalation once daily Anoro Ellipta 62.5-25 MCG/INH 1 puff Inhalation Once a day Active apixaban 5 mg oral tablet (20 sources) Factor Xa Inhibitor Start: 03-15-20 End: 10-17-19 take 1 tablet by mouth twice daily Eliquis 5 mg oral tablet 5 mg = 1 tab(s), Oral, BID, Refills(s) 0 Start Date: 04/07/21 Status: Ordered ARIPiprazole 10 mg oral tablet (20 sources) Atypical Antipsychotic Start: 10-30-19 take 1 tablet by mouth once daily ARIPiprazole (Abilify) 10 MG tablet Take 1 (one) tablet (10 mg total) by mouth daily . 90 tablet 1 10/30/2023 Active Start: 02-11-2022 take 2 tablets by [facility] once daily aripiprazole 5 mg Tab 10 mg = 2 tab(s), Oral, Daily, Refills(s) 0 Start Date: 02/11/22 Status: Ordered Start: 04-07-2021 End: 09-27-2021 take 15 mg by mouth once daily aripiprazole 15 mg, Ora l, Daily, Refills(s) 0 Start Date: 04/07/21 Status: Ordered Start: 02-04-2021 End: 10-30-2023 take 1 tablet by mouth once daily ARIPiprazole (Abilify) 20 MG tablet Take 1 (one) tablet (20 mg total) by mouth daily . 90 tablet 1 12/27/2021 10/30/2023 Discontinued (Reorder (Suppress CancelRx Message to Pharmacy)) Start: 02-04-2021 ARIPiprazole 2 0 MG Oral Tablet Quantity: 30 Refills: 0 Ordered: 08-Mar-2021 DO Start : 04-Feb-2021 Active Start: 08-02-2020 ARIPiprazole 1 5 MG Oral Tablet Quantity: 30 Refills: 0 Ordered: 24-Aug-2020 DO Start : 02-Aug-2020 Active Start: 02-05-2018 End: 04-04-2023 take 1 tablet by mouth once daily Aripiprazole (Abilify) 10 mg Tablet Active 10 MG PO every day at noon February 05, 2018 12:00am Start: 02-05-2018 Aripiprazole ( Abilify) 10 mg Tablet Active 15 MG PO Every morning February 04, 2018 11:00pm take 1 tablet by lashawn th once daily ARIPiprazole (Abilify) 10 mg disintegrating tablet Take 1 tablet (10 mg) by mouth once daily. Active ARIPiprazole (Abilify) 7.5 MG split tablet (2 sources) take 7 mg by mouth once daily ARIPiprazole (Abilify) 7.5 MG split tablet Take 7 mg by mouth daily. 0 Active aspirin 81 mg delayed release oral tablet (20 sources) Platelet Aggregation Inhibitor, Nonsteroidal Anti-inflammatory Drug Start: 8 End: 3 take 1 tablet by mouth once daily aspirin 81 mg Oral EC Tab 81 mg = 1 tab(s), Oral, Daily, # 30 tab(s), Refills(s) 0, Prophylaxis Start Date: 01/28/18 Status: Ordered Start: 01-28-2018 take 1 tablet by lashawn th once daily aspirin 81 mg Oral EC Tab 81 mg = 1 tab(s), Oral, Daily, # 30 tab(s), Refills(s) 0, Prophylaxis Start Date: 01/28/18 Status: Ordered take 1 tablet by lashawn th every twenty-four hours Aspirin 81 81 MG 1 tablet Orally Once a day Active atorvastatin 80 mg oral tablet (20 sources) HMG-CoA Reductase Inhibitor Start: 01-28-2018 take 1 tablet by mouth at bedtime atorvastatin 80 mg Tab 80 mg = 1 tab(s), Oral, Bedtime, # 30 tab(s), Refills(s) 0, High cholesterol Start Date: 01/28/18 Status: Ordered carbidopa 25 mg / levodopa 100 mg oral tablet (20 sources) Aromatic Amino Acid Decarboxylation Inhibitor, Aromatic Amino Acid Start: 05-12-2022 take 1 tablet by mouth four times daily Carbidopa-Levodop a (Sinemet) 25-100 mg Tablet Active 1 TAB PO Four times daily May 12, 2022 1:00am Start: 02-09-2022 take 1.5 tablets by mouth three times daily carbidopa-levodopa 25 mg-100 mg Tab 1.5 tab(s), Oral, TID, Refill(s) 0 Start Date: 02/09/22 Status: Ordered Start: 02-09-2022 carbidopa-levo dopa 25 mg-100 mg Tab Refill(s) 0 Start Date: 02/09/22 Status: Ordered take 1 tablet by lashawn th every eight hours Sinemet 10-100 MG 1 tablet Orally Three times a day Active carvedilol 25 mg oral tablet (20 sources) alpha-Adrenergic Valerio, beta-Adrenergic Valerio Start: 02-16-2021 Carvedilol 25 MG Oral Tablet Quantity: 180 Refills: 0 Ordered: 17-Feb-2021 DO Start : 16-Feb-2021 Active Start: 02-05-2018 take 1 tablet by lashawn th twice daily carvedilol 25 mg Tab 25 mg = 1 tab(s), Oral, BID, # 120 tab(s), Refills(s) 0, Pharmacy: [facility], 172, cm, 07/17/21 14:15:00 EST, Height/Length Dosing, 113, kg, 07/17/21 14:15:00 EST, Weight Dosing Start Date: 07/22/21 Status: Ordered Centrum Silver (5 sources) Centrum Silver O thiagoly Active cholecalciferol 0.025 mg oral tablet (20 sources) Vitamin D Start: 02-05-2018 take 1 tablet by mouth once daily Cholecalciferol (Vitamin D3) (Vitamin D3) 1,000 unit Tablet Active 1000 UNIT PO Daily February 05, 2018 12:00am cholecalciferol (Vitamin D-3) 25 MCG (1000 UT) capsule Take 1 capsule (25 mcg) by mouth. Active Vitamin D 1000 U NIT CAPS TAKE DIRECTED. Quantity: 0 Refills: 0 Ordered: 31-Jul-2022 DO Active Vitamin D 1000 U NIT CAPS TAKE DIRECTED. Quantity: 0 Refills: 0 Ordered: 29-Jun-2021 DO Active Co-Q10 100 mg oral capsule (20 sources) Start: 12-07-2019 take 1 capsule by mouth once daily Co-Q10 100 mg oral capsule 100 mg = 1 cap(s), Oral, Daily, Refills(s) 0 Start Date: 12/07/19 Status: Ordered Coenzyme S73-Qzysfku E (CoQ10 ST-100) 100-100 MG-UNIT capsule (2 sources) Coenzyme D45-Ouozlqn E (CoQ10 ST-100) 100-100 MG-UNIT capsule Take 100 mg by mouth daily. 0 Active CoQ10 100 MG (6 sources) CoQ10 100 MG as directed Orally Once a day Active empagliflozin 10 mg oral tablet (12 sources) Sodium-Glucose Cotransporter 2 Inhibitor Start: 09-22-2022 End: 04-04-2023 take 1 tablet by mouth once daily empagliflozin (Jardiance) 10 mg Indications: Ischemic cardiomyopathy Take 1 tablet (10 mg) by mouth once daily. 90 tablet 3 03/13/2023 04/04/2023 Discontinued (Ineffective) Start: 05-10-2020 Jardiance 25 M G Oral Tablet Quantity: 30 Refills: 0 Ordered: 07-Jun-2020 DO Start : 10-May-2020 Active enalapril maleate 10 mg oral tablet (20 sources) Angiotensin Converting Enzyme Inhibitor Start: 08-16-2021 take 1 tablet by mouth once daily Enalapril Maleate 10 MG Oral Tablet Take 1 tablet daily Quantity: 180 Refills: 3 Ordered: 16-Aug-2021 Felipa Milligan MD Start : 16-Aug-2021 Active Start: 02-05-2018 take 1 tablet by lashawn th twice daily enalapril 10 mg Tab 10 mg = 1 tab(s), Oral, BID, Refills(s) 0 Start Date: 10/14/21 Status: Ordered ferrous sulfate 325 mg oral tablet (20 sources) Start: 04-08-2021 take 1 tablet by mouth once daily ferrous sulfate 325 mg Tab 325 mg = 1 tab(s), Oral, Daily, # 90 tab(s), Refills(s) 0, Pharmacy: [facility], 176, cm, 04/07/21 11:30:00 EDT, Height/Length Dosing, 103, kg, 04/07/21 11:30:00 EDT, Weight Dosing Start Date: 04/08/21 Status: Ordered Start: 04-08-2021 take 1 tablet by lashawn three times daily ferrous sulfate 325 mg Tab 325 mg = 1 tab(s), Oral, TID, # 90 tab(s), Refills(s) 0, Pharmacy: [facility], 176, cm, 04/07/21 11:30:00 EDT, Height/Length Dosing, 103, kg, 04/07/21 11:30:00 EDT, Weight Dosing Start Date: 04/08/21 Status: Ordered Fish Oils (5 sources) take 1 capsule by mouth once daily Fish Oil [place]-3 1000 MG 1 capsule Orally Once a day Active Flax Seed Oil oral capsule (20 sources) Start: 01-28-2018 take 1 capsule by mouth once daily Flax Seed Oil oral capsule 1,000 mg, Oral, Daily, Refill(s) 0, Prophylaxis Start Date: 01/28/18 Status: Ordered Flaxseed extract (5 sources) Non-Standardized Food Allergenic Extract, Non-Standardized Plant Allergenic Extract Flaxseed (Linseed) 1300 MG Orally Active Flonase 0.05 mg/inh nasal spray (20 sources) Start: 11-04-2019 take 2 spray(s) nasal route once daily Flonase 0.05 mg/inh nasal spray 2 spray(s), Nasal, Daily, Refill(s) 0, each nostril Start Date: 11/04/19 Status: Ordered Start: 11-04-2019 take 1 spray(s) nasa l route twice daily Flonase 0.05 mg/inh nasal spray 1 spray(s), Nasal, BID Allergy symptoms, 16 gram, Refill(s) 0, each nostril Start Date: 11/04/19 Status: Ordered glimepiride 2 mg oral tablet (20 sources) Sulfonylurea Start: 11-22-2020 take 1 tablet by mouth twice daily glimepiride 2 mg Tab 2 mg = 1 tab(s), Oral, BID, Refills(s) 0 Start Date: 04/07/21 Status: Ordered Immodium (3 sources) Start: 07-25-2022 Immodium Activ e 1 TAB PO As Directed July 25, 2022 1:00am Start: 07-25-2022 Immodium Activ e 1 TAB PO As Directed July 25, 2022 12:00am insulin aspart, human (15 sources) Insulin Analog Start: 12-06-2019 inject 10 [IU] by subcutaneous injection once daily as needed NovoLog 10 unit(s), SubCutaneous, Daily, PRN Other (see comment), sliding scale, Refills(s) 0 Start Date: 12/06/19 Status: Ordered NovoLOG PenFill 100 UNIT/ML Subcutaneous Solution Cartridge USE DIRECTED. Quantity: 0 Refills: 0 Ordered: 16-Aug-2021 DO Active 3 ml insulin isophane, human 100 unt/ml pen injector (20 sources) Start: 10-21-2021 NovoLIN N Flex Pen 100 units/mL subcutaneous suspension 20 unit(s), SubCutaneous, BID, Refills(s) 0 Start Date: 10/21/21 Status: Ordered Start: 04-30-2021 NovoLIN N NPH U-100 Insulin 100 unit/mL injection INJECT 60 UNITS SUBCUTANEOUSLY IN THE MORNING AND 30 IN THE EVENING 0 04/30/2021 Active Start: 10-19-2020 insulin NPH, I sophane, (NovoLIN N NPH U-100 Insulin) 100 unit/mL injection Inject under the skin. 10/19/2020 Active Start: 10-19-2020 insulin NPH, I sophane, (NovoLIN N NPH U-100 Insulin) 100 unit/mL injection Inject under the skin. 0 10/19/2020 Active Start: 02-05-2018 inject 10 [IU] by verde bcutaneous injection twice daily Insulin Nph Isoph U-100 Human (Novolin N Nph U-100 Insulin) 100 unit/mL Suspension Active 10 UNIT SUBCUT Twice daily February 05, 2018 12:00am Start: 02-05-2018 End: 05-12-2022 Insulin Nph Isoph U-100 Selena n (Novolin N Nph U-100 Insulin) 100 unit/mL Suspension Discontinued 40 UNIT SUBCUT Every evening February 05, 2018 12:00am May 12, 2022 1:59pm Start: 02-05-2018 Insulin Nph Is oph U-100 Human (Novolin N Nph U-100 Insulin) 100 unit/mL Suspension Active 20 UNIT SUBCUT Twice daily February 04, 2018 11:00pm NovoLIN N 100 UN IT/ML 50 units ( Uses Relion Brand N vial) Subcutaneous bid for 30 days Active NovoLIN N 100 UN IT/ML 50 units ( Uses Relion Brand N vial) Subcutaneous bid for 30 days Active inject 10 [IU] by verde bcutaneous injection in the morning insulin NPH, Isophane, (NovoLIN N) 100 UNIT/ML injection Inject 10 Units under the skin in the morning and 10 Units in the evening. Inject before meals. 0 Active insulin isophane / insulin, regular, human (15 sources) Insulin Start: 10-06-2021 inject 30 [IU] by subcutaneous injection twice daily Novolin 70/30 30 unit(s), SubCutaneous, BID, Refill(s) 0 Start Date: 10/06/21 Status: Ordered Start: 10-06-2021 inject 15 [IU] by verde bcutaneous injection twice daily Novolin 70/30 15 unit(s), SubCutaneous, BID, Refill(s) 0 Start Date: 10/06/21 Status: Ordered Start: 04-07-2021 inject 45 [IU] by verde bcutaneous injection twice daily Novolin 70/30 See Instructions, Refill(s) 0, 45 unit(s) SubQ BID Start Date: 04/07/21 Status: Ordered insulin NPH-insu kevin regular 70/30 (NovoLIN 70/30 U-100 Insulin) 100 unit/mL (70-30) injection 40 units 0 Active Insulin Lispro (Humalog Kwikpen Insulin) 100 unit/mL Insulin Pen (4 sources) Start: 05-10-2021 inject 1 dose by subcutaneous injection three times daily at mealtime Insulin Lispro (Humalog Kwikpen Insulin) 100 unit/mL Insulin Pen Active 1 sliding scale dose SUBCUT 3 times per day with meals May 10, 2021 1:00am sliding scale only Start: 05-10-2021 inject 1 dose by sub cutaneous injection three times daily at mealtime Insulin Lispro (Humalog Kwikpen Insulin) 100 unit/mL Insulin Pen Active 1 sliding scale dose SUBCUT 3 times per day with meals May 10, 2021 12:00am sliding scale only 24 hr isosorbide mononitrate 60 mg extended release oral tablet (20 sources) Nitrate Vasodilator Start: 03-16-2021 isosorbide mononitrate (IMDUR) 60 MG 24 hr tablet Start: 02-05-2018 End: 05-12-2022 take 1 tablet by mouth once daily isosorbide mononitrate 60 mg ER Tab 60 mg = 1 tab(s), Oral, Daily Start Date: 10/14/21 Status: Ordered lamoTRIgine 200 mg oral tablet (20 sources) Mood Stabilizer, Anti-epileptic Agent Start: 08-03-2020 lamoTRIgine 200 MG Oral Tablet Quantity: 90 Refills: 0 Ordered: 17-Feb-2021 DO Start : 03-Aug-2020 Active Start: 02-05-2018 End: 10-30-2023 take 1 tablet by mouth once daily Lamictal 200 mg Tab 200 mg = 1 tab(s), Oral, Daily, Refills(s) 0 Start Date: 04/07/21 Status: Ordered levothyroxine sodium 0.075 mg oral tablet (20 sources) l-Thyroxine Start: 08-29-2023 take 1 tablet by mouth once daily levothyroxine 100 mcg (0.1 mg) Tab 100 mcg = 1 tab(s), Oral, Daily, Refills(s) 0 Start Date: 08/29/23 Status: Ordered Start: 08-29-2023 take 1 tablet by lashawn th once daily levothyroxine 75 mcg (0.075 mg) Tab 75 mcg = 1 tab(s), Oral, Daily, Refills(s) 0 Start Date: 08/29/23 Status: Ordered Start: 03-20-2023 take 175 ug by mouth once zhanna y Levothyroxine Active 175 MCG PO Daily September 06, 2023 12:00am Start: 05-12-2022 End: 09-06-2023 take 75 ug by mouth once daily in the morning Levothyroxine Discontinued 75 MCG PO Every morning May 12, 2022 1:00am September 06, 2023 7:29am Start: 05-12-2022 take 150 ug by mouth once daily in the morning Levothyroxine Active 150 MCG PO Every morning May 12, 2022 12:00am Start: 02-09-2022 take 1 tablet by lashawn th once daily levothyroxine 150 mcg (0.15 mg) Tab 150 mcg = 1 tab(s), Oral, Daily, Refills(s) 0 Start Date: 02/09/22 Status: Ordered Start: 01-27-2022 End: 04-04-2023 take 1 capsule by mouth once daily before mealtime levothyroxine (Tirosint) 150 mcg capsule Indications: High risk medication use , Hypothyroidism, adult Take 1 capsule (150 mcg) by mouth once daily in the morning. Take before meals. ON EMPTY STOMACH 90 capsule 3 03/13/2023 04/04/2023 Discontinued (Other) Start: 12-08-2021 take 1 tablet by lashawn th once daily Levothyroxine Sodium 125 MCG Oral Tablet TAKE 1 TABLET BY MOUTH ONCE DAILY FOR 30 DAYS Quantity: 30 Refills: 0 Ordered: 08-Dec-2021 DO Start : 08-Dec-2021 Active Start: 12-08-2021 End: 01-07-2022 take 1 tablet by mouth once daily levothyroxine 125 mcg (0.125 mg) Tab 125 mcg = 1 tab(s), Oral, Daily, X 30 day(s), # 30 tab(s), Refills(s) 0, Pharmacy: [facility], 177, cm, 12/06/21 20:43:00 EDT, Height/Length Dosing, 107.2, kg, 12/06/21 20:43:00 EDT, Weight Dosing Start Date: 12/08/21 Stop Date: 01/07/22 Status: Ordered Start: 11-29-2021 take 1 tablet by lashawn th once daily Levothyroxine Sodium 200 MCG Oral Tablet TAKE 1 TABLET DAILY DIRECTED. Quantity: 90 Refills: 3 Ordered: 29-Nov-2021 Eyad Mims MD Start : 29-Nov-2021 Active dose increase, fill at patients request. Start: 10-27-2021 take 1 tablet by lashawn th once daily levothyroxine 100 mcg (0.1 mg) Tab 100 mcg = 1 tab(s), Oral, Daily, # 30 tab(s), Refills(s) 0, Pharmacy: [facility], 178, cm, 10/14/21 16:31:00 EDT, Height/Length Dosing, 105, kg, 10/14/21 16:31:00 EDT, Weight Dosing Start Date: 10/27/21 Status: Ordered Start: 10-27-2021 take 1 tablet by lashawn th once daily levothyroxine 100 mcg (0.1 mg) Tab 100 mcg = 1 tab(s), Oral, Daily, # 30 tab(s), Refills(s) 0, Pharmacy: [facility], [facility] 1986, 178, cm, 10/14/21 16:31:00 EDT, Height/Length Dosing, 105, kg, 10/14/21 16:31:00 EDT, Weight Dosing Start Date: 10/27/21 Status: Ordered Start: 07-17-2021 take 75 ug by mouth once daily levothyroxine 75 mcg, Oral, Daily, Refills(s) 0 Start Date: 07/17/21 Status: Ordered Start: 10-19-2020 End: 05-12-2022 take 1 tablet by mouth once daily levothyroxine (SYNTHROID, LEVOTHROID) 75 MCG tablet Take 75 mcg by mouth daily . 0 05/05/2021 Active take 1 tablet by lashawn th every twenty-four hours Levothyroxine Sodium 200 MCG 1 tablet Orally Once a day Not-Taking loperamide hydrochloride 2 mg oral capsule (10 sources) Opioid Agonist End: 04-04-2023 take 1 capsule by mouth every twenty-four hours as needed loperamide (Imodium) 2 mg capsule Take 1 capsule (2 mg) by mouth once daily as needed for diarrhea. 0 04/04/2023 Discontinued (Other) take 1 tablet by lashawn th once as needed for diarrhea loperamide (Imodium A-D) 2 MG tablet Ant e 2 mg by mouth as needed for diarrhea. 0 Active metFORMIN hydrochloride 1000 mg oral tablet (20 sources) Biguanide Start: 10-21-2021 take 0.5 tablet by mouth twice daily metformin 1000 mg Tab See Instructions, 0.5 tab(s) Oral BID, Refills(s) 0 Start Date: 10/21/21 Status: Ordered Start: 10-19-2020 take 1 tablet by lashawn th twice daily at mealtime metFORMIN (GLUCOPHAGE) 1000 MG tablet Take 1,000 mg by mouth 2 (two) times a day with meals . 0 05/05/2021 Active Start: 02-05-2018 End: 02-24-2021 take 500 mg by mouth twice daily Metformin Discontinue d 500 MG PO Twice daily February 05, 2018 12:00am February 24, 2021 11:03am Start: 01-28-2018 take 2 tablets by mo [facility] twice daily metformin 500 mg Tab 1,000 mg = 2 tab(s), Oral, BID, # 60 tab(s), Refills(s) 0, Blood glucose Start Date: 01/28/18 Status: Ordered methylPREDNISolone 4 mg oral tablet (2 sources) Corticosteroid Start: 2021 End: 01-05-2022 Medrol 4 mg Tab = 1 packet(s), Oral, As Directed, as directed on package labeling, X 6 day(s), # 21 tab(s), Refills(s) 0, Pharmacy: [facility] #[id number], 177, cm, 12/30/21 15:24:00 EDT, Height/Length Dosing, 100.5, kg, 12/30/21 15:24:00 EDT, Weight Dosing Start Date: 12/30/21 Stop Date: 01/05/22 Status: Ordered Multiple Vitamins-Minerals (multivitamin with minerals) tablet (2 sources) take 1 tablet by mouth once daily Multiple Vitamins-Minerals (multivitamin with minerals) tablet Take 1 tablet by mouth daily. 0 Active Jlmigqsm-Jhb-Zacox-Vit K-Lycop (Men's 50 Plus Multivitamin) 400-20-370 mcg Tablet (8 sources) Start: 02-24-2021 take 50-400 tablets by mouth once daily in the morning Igcwlcnt-Wcc-Dkcsd -Vit K-Lycop (Men's 50 Plus Multivitamin) 400-20-370 mcg Tablet Active 2 TAB PO Every morning February 24, 2021 12:00am Start: 02-24-2021 take 50-400 tablets by mouth once daily in the morning Kannummg-Gxe-Zadiy-Vit K-Lycop (Men's 50 Plus Multivitamin) 400-20-370 mcg Tablet Active 2 TAB PO Every morning February 23, 2021 11:00pm Multivitamin preparation (1 source) take 1 tablet by mouth once daily Multivitamin - 1 tablet Orally Once a day Active Multivitamins and Minerals (20 sources) Start: 09-14-19 take 1 tablet by mouth once daily Multivitamins and Minerals 1 tablet, Oral, Daily, Prophylaxis Start Date: 09/14/11 Status: Ordered Nitro 0.4 mg Tab (20 sources) Start: 09-14-19 12 Nitro 0.4 mg Tab 1 tablet, SubLingual, q5min, PRN Chest pain, Chest pain Start Date: 09/14/11 Status: Ordered nitroglycerin 0.4 mg sublingual tablet (20 sources) Nitrate Vasodilator Start: 02-06-20 18 Nitroglycerin Active 0.4 MG SUBLINGUAL every 5 to 15 minutes February 05, 2018 12:00am Start: 09-14-2011 Nitro 0.4 mg T ab 1 tablet, SubLingual, q5min, PRN Chest pain, Chest pain Start Date: 09/14/11 Status: Ordered nitroGLYCERIN (N ITROSTAT) 0.4 MG SL tablet See Admin Instructions . 0 Active nitroglycerin (N itrostat) 0.[address] 0.3 mg under the tongue every 5 minutes as needed for chest pain. 0 Active pantoprazole 40 mg delayed release oral tablet (20 sources) Proton Pump Inhibitor Start: 11-16-2020 take 1 tablet by mouth once daily Pantoprazole [address] Tab 40 mg = 1 tab(s), Oral, Daily, Refills(s) 0 Start Date: 10/21/21 Status: Ordered Start: 04-17-2019 take 1 tablet by lashawn th once daily Pantoprazole [address] Tab 40 mg = 1 tab(s), Oral, Daily, Refills(s) 0 Start Date: 10/21/21 Status: Ordered pediatric multivitamin (Claudette i Bear Multivitamin) tablet,chewable (3 sources) pediatric multiv itamin (Gummi Bear Multivitamin) tablet,chewable Chew 2 tablets once daily. Active pediatric multiv itamin (Gummi Bear Multivitamin) tablet,chewable Chew 2 tablets once daily. 0 Active predniSONE 20 mg oral tablet (1 source) take 1 tablet by lashawn th once daily predniSONE (Deltasone) 20 mg tablet Take 1 tablet (20 mg) by mouth once daily. 0 Active Pro-Air HFA CFC free 90 mcg/inh MDI (9 sources) Start: 12-07-2019 take 2 puff(s) by inhalation every four hours Pro-Air HFA CFC free 90 mcg/inh MDI 2 puff(s), Inhalation, q4hr Shortness of breath or wheezing, Refill(s) 0 Start Date: 12/07/19 Status: Ordered saccharomyces boulardii 250 mg oral capsule (20 sources) Start: 03-09-2021 Florastor 250 MG Oral Capsule TAKE DIRECTED. Quantity: 0 Refills: 0 Ordered: 09-Mar-2021 DO Start : 09-Mar-2021 Active Start: 02-24-2021 End: 06-17-2023 take 1 capsule by mouth twice daily Saccharomyces Boulardii (Florastor) 250 mg Capsule Discontinued 250 MG PO Twice daily February 24, 2021 12:00am June 17, 2023 5:15pm Saccharomyces boulardii lyo (20 sources) Start: 02-09-2022 FLORASTOR 250M G CAP FLORASTOR 250MG CAP Start Date: 02/09/22 Status: Ordered Start: 01-16-2022 take 1 capsule by mo uth twice daily Florastor 250 MG 1 capsule Orally Twice a day for 90 days Jan, Active Start: 07-17-2021 take 250 mg by mouth twice navya ly Florastor 250 mg, Oral, BID, Refills(s) 0 Start Date: 07/17/21 Status: Ordered Start: 03-09-2021 Florastor CAPS TAKE 1 CAPSULE TWICE DAILY. Quantity: 0 Refills: 0 Ordered: 09-Mar-2021 DO Start : 09-Mar-2021 Active semaglutide 3 mg oral tablet (2 sources) End: 04-04-2023 take 1 tablet by mouth once daily semaglutide (Rybelsus) 3 mg tablet Take 1 tablet (3 mg) by mouth once daily. 0 04/04/2023 Discontinued (Other) spironolactone 25 mg oral tablet (20 sources) Aldosterone Antagonist Start: 03-13-2023 End: 10-17-2023 take 1 tablet by mouth once daily Aldactone 25 mg Tab 25 mg = 1 tab(s), Oral, Daily, # 30 tab(s), Refills(s) 0, Pharmacy: [facility], 172.7, cm, 03/09/23 15:05:00 EDT, Height/Length Dosing, 104.5, kg, 03/09/23 15:05:00 EDT, Weight Dosing Start Date: 03/13/23 Status: Ordered Start: 12-08-2021 End: 01-07-2022 Aldactone 25 mg Tab 12.5 mg = 0.5 tab(s), Oral, Daily, X 30 day(s), # 15 tab(s), Refills(s) 0, Pharmacy: [facility], 177, cm, 12/06/21 20:43:00 EDT, Height/Length Dosing, 107.2, kg, 12/06/21 20:43:00 EDT, Weight Dosing Start Date: 12/08/21 Stop Date: 01/07/22 Status: Ordered Start: 10-27-2021 take 1 tablet by lashawn th twice daily spironolactone 25 mg Tab 25 mg = 1 tab(s), Oral, BID, # 60 tab(s), Refills(s) 0, Pharmacy: [facility], 178, cm, 10/14/21 16:31:00 EDT, Height/Length Dosing, 105, kg, 10/14/21 16:31:00 EDT, Weight Dosing Start Date: 10/27/21 Status: Ordered Start: 07-22-2021 take 1 tablet by lashawn th twice daily spironolactone 25 mg Tab 25 mg = 1 tab(s), Oral, BID, # 120 tab(s), Refills(s) 0, Pharmacy: [facility], 172, cm, 07/17/21 14:15:00 EST, Height/Length Dosing, 113, kg, 07/17/21 14:15:00 EST, Weight Dosing Start Date: 07/22/21 Status: Ordered Start: 05-10-2021 End: 05-12-2022 take 12.5 mg by mouth once daily in the morning Spironolactone Discontinued 12.5 MG PO Every morning May 10, 2021 1:00am May 12, 2022 1:59pm Start: 05-05-2021 take 0.5 tablet by m outh once daily Spironolactone 25 MG Oral Tablet TAKE 0.5 TABLET Daily Quantity: 45 Refills: 3 Ordered: 05-May-2021 Felipa Milligan MD Start : 05-May-2021 Active new start Spironolactone T ABS take 12.5mg once daily Quantity: 0 Refills: 0 Ordered: 29-Jun-2021 DO Active torsemide 20 mg oral tablet (20 sources) Loop Diuretic Start: 08-29-2023 torsemide 20 m g Tab See Instructions, 1 tab(s) Oral Daily and then addtional 1 tab oral daily as needed for Leg swelling or weight gain of 3 pounds, # 60 tab(s), Refills(s) 0, Pharmacy: [facility], [facility] 1986, 177, cm, 08/27/23 20:45:00 EDT, Height/Length Dosing, 100.6, kg, 08/27/23 20:45:00 EDT, Weight Dosing Start Date: 08/29/23 Status: Ordered Start: 06-08-2023 take 1 tablet by lashawn th once daily torsemide 40 mg tablet Indications: Ischemic cardiomyopathy , Localized edema Take 40 mg by mouth once daily. 90 tablet 3 06/08/2023 Active Start: 03-13-2023 End: 04-04-2023 take 1 tablet by mouth once daily torsemide (Demadex) 20 mg tablet Indications: Hypertension, essential, benign , Ischemic cardiomyopathy Take 1 tablet (20 mg) by mouth once daily. 90 tablet 3 03/13/2023 04/04/2023 Discontinued (Other) Start: 05-14-2022 End: 09-06-2023 Torsemide Discontinued 20 MG PO Every morning 0 May 14, 2022 4:00pm September 06, 2023 7:28am Take Torsemide 20mg twice daily for 4 days then repeat lab work Start: 12-08-2021 End: 05-14-2022 take 20 mg by mouth once daily in the morning Torsemide Discontinued 20 MG PO Every morning May 12, 2022 1:00am May 14, 2022 4:00pm take 1 tablet by lashawn th once daily torsemide (Demadex) 10 mg tablet Take 1 tablet (10 mg) by mouth once daily. Active take 0.5 mg by mouth once daily torsemide (Demadex) 20 mg tablet Take 0.5 mg by mouth once daily. 0 Active take 2 tablets by mo uth once daily torsemide (Demadex) 20 MG tablet Take 40 mg by mouth daily. 0 Active triamcinolone acetonide 1 mg/ml topical cream (3 sources) Corticosteroid Start: 03-09-2022 End: 05-08-2022 triamcinolone topical 0.1% cream 1 eduardo, Topical, BID for 30 day(s), 60 gm, Refill(s) 1, Apply thin film to inside of foreskin twice daily., [facility], 177, cm, 03/09/22 14:32:00 EDT, Height/Length Dosing, 100, kg, 03/09/22 14:32:00 EDT, Weight Dosing Start Date: 03/09/22 Stop Date: 05/08/22 Status: Ordered trihexyphenidyl hydrochloride 2 mg oral tablet (20 sources) Start: 08-03-2020 End: 10-17-2023 take 1 tablet by mouth once daily at dinner trihexyphenidyL (ARTANE) 2 MG tablet Take 1 (one) tablet (2 mg total) by mouth daily with dinner . 30 tablet 2 12/27/2021 Active ubidecarenone 100 mg oral capsule (20 sources) Start: 05-12-2021 Coenzyme Q10 (Co Q-10) 100 mg Capsule Active 100 MG PO Daily May 12, 2021 1:00am Start: 12-07-2019 take 1 capsule by [facility] once daily Co-Q10 100 mg oral capsule 100 mg = 1 cap(s), Oral, Daily, Refills(s) 0 Start Date: 12/07/19 Status: Ordered Start: 02-05-2018 End: 05-12-2021 Coenzyme Q10 (Co Q-10) 150 m g Capsule Discontinued 150 MG PO Every morning February 05, 2018 12:00am May 12, 2021 1:28pm 7 actuat umeclidinium 0.0625 mg/actuat / vilanterol 0.025 mg/actuat dry powder inhaler (20 sources) Anticholinergic, beta2-Adrenergic Agonist Start: 05-12-2022 Umeclidinium-Vilanterol (Anoro Ellipta) 62.5-25 mcg/actuation blister with device Active 1 EACH INHALATION Every evening May 12, 2022 1:00am Start: 08-03-2021 End: 04-04-2023 umeclidinium-vilanteroL (Ano ro Ellipta) 62.5-25 mcg/actuation blister with device Inhale. 0 08/03/2021 04/04/2023 Discontinued (Other) take 1 puff(s) by inhalation once daily umeclidinium-vilanteroL (Anoro Ellipta) 62.5-25 mcg/actuation blister with device Inhale 1 puff once daily. Active take 1 puff(s) by inhalation once daily Anoro Ellipta 62.5-25 MCG/INH 1 puff Inhalation Once a day Active venlafaxine (Effexor) 12.5 MG split tablet (2 sources) venlafaxine (Eff exor) 12.5 MG split tablet Take 18.75 mg by mouth in the morning and 18.75 mg in the evening. Take with meals. 0 Active vitamin b12 1 mg/ml injectable solution (14 sources) Vitamin B12 Start: inject 1000 ug by intramuscular injection every month cyanocobalamin 1000 mcg/mL Inj 1,000 mcg = 1 mL, IntraMuscular, qMonth, syringes for B12 injections-3ml, 25 guage 1 inch quantity sufficient for injections., # 10 mL, Refills(s) 1, Pharmacy: [facility], 177, cm, 04/12/23 9:03:00 EST, Height/Length Dosing, 101.6, kg, 04/12/23 9:03:00 EST, Weight Dosing Start Date: 04/12/23 Status: Ordered Start: 04-12-2023 inject 1000 ug by in tramuscular injection every month cyanocobalamin 1000 mcg/mL Inj 1,000 mcg = 1 mL, IntraMuscular, qMonth, syringes for B12 injections-3ml, 25 guage 1 inch quantity sufficient for injections., # 10 mL, Refills(s) 1, Pharmacy: [facility], 177, cm, 04/12/23 9:03:00 EST, Height/Length Dosing, 101.6, kg, 04/12/23 9:03:00 EST, Weight Dosing Start Date: 04/12/23 Status: Ordered Vitamin B12 100 MCG as directed Orally Active take 1 tablet by mouth once zhanna y cyanocobalamin (Vitamin B-12) 1000 MCG tablet Take 1,000 mcg by mouth daily. 0 Active Vitamin C 500 mg Tab (6 sources) Start: 12-09-2019 Vitamin C 500 mg Tab 500 mg = 1 tab(s), Oral, BIDWM, # 60 tab(s), Refills(s) 0, Pharmacy: [facility], 176, cm, 12/08/19 9:27:00 EDT, Height/Length Measured, 103.8, kg, 12/09/19 5:06:00 EDT, Weight Measured Start Date: 12/09/19 Status: Ordered Vitamin D (6 sources) Start: 07-17-2021 Vitamin D 50,0 00 International_Unit, Oral, Daily, Refills(s) 0 Start Date: 07/17/21 Status: Ordered Vitamin D 2000 UNIT (6 sources) Start: 01-04-2015 Vitamin D 2000 UNIT Orally Jan, Active VITAMIN D, CHOLECALCIFEROL, PO (2 sources) take 1 dose by mouth once Vitamin D3 (11 sources) Start: 01-08-2023 take 1 tablet by mouth once daily Vitamin D3 one tab, Oral, Daily, Refills(s) 0 Start Date: 01/08/23 Status: Ordered Vitamin D3 1000 intl units oral tablet (20 sources) Start: 10-21-2021 take 1 tablet by mouth once daily Vitamin D3 1000 intl units oral tablet 25 mcg = 1 tab(s), Oral, Daily, Refills(s) 0 Start Date: 10/21/21 Status: Ordered warfarin sodium 4 mg oral tablet (1 source) Vitamin K Antagonist Start: 10-17-2023 End: 10-16-2024 warfarin (Coumadin) 4 mg tablet Indications: Paroxysmal atrial fibrillation (Multi) Take as directed per After Visit Summary. 14 tablet 10/17/2023 10/16/2024 Active Completed/Discontinued Medications Medication Drug Class(es) Dates Sig (Normalized) Sig (Original) acetaminophen 325 mg / HYDROcodone bitartrate 5 mg oral tablet (3 sources) Opioid Agonist Start: 07-25-2022 End: 06-17-2023 take 1 tablet by mouth twice daily Hydrocodone-Aceta minophen Discontinued 1 TAB PO Twice daily 7 July 25, 2022 June 17, 2023 5:16pm alendronic acid 70 mg oral tablet (3 sources) Bisphosphonate Start: 06-25-2020 take 1 tablet by mouth every week Alendronate Sodium 70 MG Oral Tablet TAKE 1 TABLET BY MOUTH ONCE A WEEK Quantity: 12 Refills: 0 Ordered: 19-Sep-2020 DO Start : 22-Kem-2021 Active amLODIPine 5 mg oral tablet (20 sources) Dihydropyridine Calcium Channel Valerio Start: 02-08-2021 End: 09-06-2023 take 1 tablet by mouth once daily in the morning Amlodipine (Norvasc) 5 mg tablet Discontinued 5 MG PO Every morning February 24, 2021 12:00am September 06, 2023 7:26am ascorbic acid 100 mg chewable tablet (20 sources) Vitamin C Start: 02-24-2021 End: 07-25-2022 take 300 mg by mouth once daily Ascorbic Acid (Vitamin C) Discontinued 300 MG PO Daily February 24, 2021 12:00am July 25, 2022 10:51am take 1 capsule by mouth twice da akvya ascorbic acid, vitamin C, 500 mg capsule Take 1 capsule by mouth 2 times a day. Active busPIRone hydrochloride 10 mg oral tablet (15 sources) Start: 06-12-2021 End: 06-21-2021 take 1 tablet by mouth twice daily busPIRone (BUSPAR) 10 MG tablet Take 10 mg by mouth 2 (two) times a day . 0 06/12/2021 06/21/2021 Discontinued Start: 05-10-2021 End: 05-12-2022 take 5 mg by mouth twice daily Buspirone Discontinued 5 MG PO Twice daily May 10, 2021 1:00am May 12, 2022 1:58pm ciprofloxacin 500 mg oral tablet (4 sources) Quinolone Antimicrobial Start: 03-23-2022 take 1 tablet by mouth once daily Cipro 500 mg Tab 500 mg = 1 tab(s), Oral, Daily, Take 1 tablet the day before the procedure and 1 tablet after the procedure, # 2 tab(s), Refills(s) 0, Pharmacy: [facility], 177, cm, 05/02/22 10:41:00 EST, Height/Length Dosing, 104.5, kg, 03/31/22 9:44:00 E... Start Date: 05/03/22 Status: Ordered clindamycin 300 mg oral capsule (9 sources) Lincosamide Antibacterial Start: 03-08-2021 take 2 capsules by mouth three times daily Clindamycin HCl - 300 MG Oral Capsule TAKE 2 CAPSULES BY MOUTH THREE TIMES DAILY FOR 2 DAYS Quantity: 12 Refills: 0 Ordered: 08-Mar-2021 DO Start : 08-Mar-2021 Active Start: 03-08-2021 End: 05-10-2021 take 600 mg by mouth three times daily Clindamycin Hcl Discontinued 600 MG PO Three times daily 05 05March 08, 2021 12:00am May 10, 2021 11:00am clopidogrel 75 mg oral tablet (9 sources) [id number] Platelet Inhibitor Start: 02-24-2021 End: 05-10-2021 take 75 mg by mouth once daily Clopidogrel Discontinued 75 MG PO Daily February 24, 2021 12:00am May 10, 2021 11:00am Start: 02-16-2021 Clopidogrel Bi sulfate 75 MG Oral Tablet Quantity: 90 Refills: 0 Ordered: 17-Feb-2021 DO Start : 16-Feb-2021 Active collagenase 0.25 unt/mg topical ointment (1 source) Collagen-specific Enzyme Start: 09-21-2020 Santyl 250 UNIT/GM External Ointment Quantity: 30 Refills: 0 Ordered: 21-Sep-2020 DO Start : 21-Sep-2020 Active Cranberry (20 sources) Non-Standardized Food Allergenic Extract, Non-Standardized Plant Allergenic Extract Start: 05-12-2022 End: 07-25-2022 take 400 mg by mouth twice daily at mealtime Cranberry Discontinued 400 MG PO Twice daily May 12, 2022 1:00am July 25, 2022 10:52am administer with meals Start: 05-12-2022 End: 07-25-2022 take 400 mg by mouth twice daily at mealtime Cranberry Discontinued 400 MG PO Twice daily May 12, 2022 12:00am July 25, 2022 9:52am administer with meals Start: 05-12-2022 take 400 mg by mouth twice daily at mealtime Cranberry Active 400 MG PO Twice daily May 12, 2022 12:00am administer with meals Start: 05-10-2022 take 1 capsule by [facility] once daily cranberry oral capsule See Instructions, Refill(s) 0, takes 1 capsule daily Start Date: 05/10/22 Status: Ordered 24 hr [id number] hydrochloride 120 mg extended release oral capsule (6 sources) Calcium Channel Valerio Start: 03-15-2021 take 1 capsule by mouth once daily dilTIAZem HCl ER Coated Beads 120 MG Oral Capsule Extended Release 24 Hour TAKE 1 CAPSULE ONCE DAILY. Quantity: 90 Refills: 3 Ordered: 15-Mar-2021 Felipa Milligan MD Start : 15-Mar-2021 Active doxazosin 1 mg oral tablet (5 sources) alpha-Adrenergi c Valerio take 1 tablet by mouth every twenty-four hours Doxazosin Mesylate 1 MG 1 tablet Orally Once a day Not-Taking doxycycline hyclate 100 mg oral capsule (17 sources) Tetracycline-cl ass Drug Start: 06-28-2023 take 1 capsule by mouth once daily doxycycline hyclate 100 mg Cap 100 mg = 1 cap(s), Oral, Daily, Take 1 pill the day before the procedure and 1 pill after the procedure, # 2 cap(s), Refills(s) 0, Pharmacy: [facility], 177, martina, 04/12/23 9:03:00 EST, Height/Length Dosing, 101.6, kg, 04/12/23 9:03:00 EST, Weight Dosing Start Date: 06/28/23 Status: Ordered Start: 01-01-2023 take 1 capsule by [facility] once daily doxycycline hyclate 100 mg Cap 100 mg = 1 cap(s), Oral, Daily, Take 1 pill the day before the procedure and 1 pill after the procedure, # 2 cap(s), Refills(s) 0, Pharmacy: [facility], 177, cm, 10/31/22 10:31:00 EDT, Height/Length Dosing, 100, kg, 09/22/22 12:09:00 EDT, Weight Dosing Start Date: 01/01/23 Status: Ordered Start: 10-26-2022 take 1 capsule by [facility] once daily doxycycline hyclate 100 mg Cap 100 mg = 1 cap(s), Oral, Daily, Take 1 pill the day before the procedure and 1 pill after the procedure, # 2 cap(s), Refills(s) 0, Pharmacy: [facility], 177, cm, 09/22/22 12:09:00 EDT, Height/Length Dosing, 100, kg, 09/22/22 12:09:00 EDT, W... Start Date: 10/26/22 Status: Ordered Start: 11-11-2020 take 1 tablet by [facility] once daily Doxycycline Hyclate 100 MG Oral Tablet TAKE 1 TABLET DAILY DIRECTED. Quantity: 0 Refills: 0 Ordered: 11-Nov-2020 DO Start : 11-Nov-2020 Active Start: 11-11-2020 Doxycycline Hy clate 100 MG Oral Tablet Quantity: 2 Refills: 0 Ordered: 11-Nov-2020 DO Start : 11-Nov-2020 Active enalapril maleate 5 mg / hydroCHLOROthiazide 12.5 mg oral tablet (5 sources) Thiazide Diuretic, Angiotensin Converting Enzyme Inhibitor take 1 tablet by mouth every twenty-four hours Enalapril-hydroCHLOROthiazide 5-12.5 MG 1 tablet Orally Once a day Not-Taking ergocalciferol 1.25 mg oral capsule (3 sources) Provitamin D2 Compound Sta rt: 1 take 1 capsule by mouth every week Vitamin D (Ergocalciferol) 1.25 MG (43993 UT) Oral Capsule TAKE 1 CAPSULE BY MOUTH ONCE A WEEK Quantity: 12 Refills: 0 Ordered: 19-Sep-2020 DO Start : 25-Jun-2020 Active fluconazole 200 mg oral tablet (3 sources) Azole Antifungal Sta rt: 1 take 1 tablet by mouth once daily Fluconazole 200 MG Oral Tablet TAKE 1 TABLET DAILY DIRECTED. Quantity: 0 Refills: 0 Ordered: 12-Jul-2020 DO Start : 12-Jul-2020 Active Start: 07-12-2020 Fluconazole 20 0 MG Oral Tablet Quantity: 7 Refills: 0 Ordered: 12-Jul-2020 DO Start : 12-Jul-2020 Active fluticasone propionate 0.05 mg/actuat metered dose nasal spray (20 sources) Corticosteroid Start: 05-12-2022 End: 06-17-2023 take 1 spray(s) nasal route once daily Fluticasone Propionate Discontinued 2 SPRAY INTRANASAL Daily May 12, 2022 1:00am June 17, 2023 5:16pm administer into each nostril Start: 11-04-2019 End: 04-04-2023 take 2 spray(s) nasal route once daily Flonase 0.05 mg/inh nasal spray 2 spray(s), Nasal, Daily, Refill(s) 0, each nostril Start Date: 11/04/19 Status: Ordered take 2 spray(s) nasa l route twice daily fluticasone (Flonase) 50 MCG/ACT nasal spray Administer 2 sprays into each nostril 2 times daily. Shake gently. Before first use, prime pump. After use, clean tip and replace cap. 0 Active Flonase 50 MCG/A CT SUSP USE DIRECTED. Quantity: 0 Refills: 0 Ordered: 22-Sep-2022 DO Active furosemide 20 mg oral tablet (20 sources) Loop Diuretic Start: 06-17-2023 End: 09-06-2023 take 1 tablet by mouth once daily Furosemide (Lasix) 20 mg tablet Discontinued 20 MG PO Daily 12 08June 17, 2023 1:00am September 06, 2023 7:27am Start: 10-27-2021 take 1 tablet by lashawn th once daily furosemide 40 mg Tab 40 mg = 1 tab(s), Oral, Daily, # 60 tab(s), Refills(s) 0, Pharmacy: [facility], 178, cm, 10/14/21 16:31:00 EDT, Height/Length Dosing, 105, kg, 10/14/21 16:31:00 EDT, Weight Dosing Start Date: 10/27/21 Status: Ordered Start: 07-22-2021 take 1 tablet by lashawn th twice daily furosemide 40 mg Tab 40 mg = 1 tab(s), Oral, BID, # 60 tab(s), Refills(s) 0, Pharmacy: [facility], 178, cm, 10/14/21 16:31:00 EDT, Height/Length Dosing, 105, kg, 10/14/21 16:31:00 EDT, Weight Dosing Start Date: 10/27/21 Status: Ordered Start: 12-16-2020 take 1 tablet by lashawn th once daily Furosemide 40 MG Oral Tablet TAKE 1 TABLET DAILY DIRECTED. Quantity: 0 Refills: 0 Ordered: 16-Dec-2020 DO Start : 16-Dec-2020 Active Start: 12-16-2020 Furosemide 40 MG Oral Tablet Quantity: 90 Refills: 0 Ordered: 16-Dec-2020 DO Start : 16-Dec-2020 Active Start: 07-29-2020 Furosemide 20 MG Oral Tablet Quantity: 90 Refills: 0 Ordered: 29-Jul-2020 DO Start : 29-Jul-2020 Active Start: 02-05-2018 End: 05-12-2022 take 2 tablets by mouth once daily in the morning Furosemide (Lasix) 20 mg Tablet Discontinued 40 MG PO Every morning February 05, 2018 12:00am May 12, 2022 1:58pm sodium hypochlorite 2.5 mg/ml topical solution (1 source) Start: 05-05-2020 HySept 0.25 % External Solution Quantity: 473 Refills: 0 Ordered: 03-Jun-2020 DO Start : 05-May-2020 Active Insulin Lispro (20 sources) Insulin Analog Start: 08-29-2023 End: 08-29-2023 Insulin Lispro Sliding Scale 0-10 Unit(s), Injection-Insulin, SubCutaneous, Start date 08/29/23 11:30:00 AM EDT Start Date: 08/29/23 Stop Date: 08/29/23 Status: Completed Start: 08-29-2023 End: 08-29-2023 Insulin Lispro Sliding Scale 0-10 Unit(s), Injection-Insulin, SubCutaneous, Start date 08/29/23 7:30:00 AM EDT Start Date: 08/29/23 Stop Date: 08/29/23 Status: Completed Start: 02-10-2022 End: 02-10-2022 HumaLOG Sliding Scale 0-10 U nits, Injection-Insulin, SubCutaneous, Start date 02/10/22 21:00:00 EDT Start Date: 02/10/22 Stop Date: 02/10/22 Status: Completed Start: 10-19-2021 End: 10-19-2021 Insulin Lispro Sliding Scale 0-10 Units, Injection-Insulin, SubCutaneous, Start date 10/19/21 11:30:00 EDT Start Date: 10/19/21 Stop Date: 10/19/21 Status: Completed Start: 10-13-2021 End: 10-13-2021 HumaLOG Sliding Scale 0-10 U nits, Injection-Insulin, SubCutaneous, Start date 10/13/21 7:30:00 EDT Start Date: 10/13/21 Stop Date: 10/13/21 Status: Completed Start: 10-12-2021 End: 10-12-2021 HumaLOG Sliding Scale 0-10 U nits, Injection-Insulin, SubCutaneous, Start date 10/12/21 21:00:00 EDT Start Date: 10/12/21 Stop Date: 10/12/21 Status: Completed Start: 10-10-2021 End: 10-10-2021 HumaLOG Sliding Scale 0-10 U nits, Injection-Insulin, SubCutaneous, Start date 10/10/21 21:00:00 EDT Start Date: 10/10/21 Stop Date: 10/10/21 Status: Completed Start: 07-17-2021 Humalog See In structions, 0-150 = no coverage 151-200 = 2 units 201-250 = 4 units 251-300 = 6 units 301-350 = 8 units 351-400 = 10 units with breakfast and lunch and dinner NO BEDTIME SCALE, Refills(s) 0 Start Date: 07/17/21 Status: Ordered Start: 05-10-2021 inject 1 dose by sub cutaneous injection three times daily at mealtime Insulin Lispro (Humalog Kwikpen Insulin) 100 unit/mL Insulin Pen Active 10 sliding scale dose SUBCUT 3 times per day with meals May 10, 2021 12:00am Start: 02-05-2018 End: 02-24-2021 Insulin Lispro (Humalog Kwik pen Insulin) 100 unit/mL Insulin Pen Discontinued 6 UNIT SUBCUT As Directed February 05, 2018 12:00am February 24, 2021 11:00am Start: 02-05-2018 End: 02-05-2018 Insulin Lispro (Humalog Ramone or Kwikpen U-100) 100 unit/mL Insulin Pen, Half-Unit Discontinued February 05, 2018 12:00am February 05, 2018 10:02am Start: 10-17-2016 Humalog U100 8 ,10,12 units according to meal size with sliding scale #2 for a total of 50 units Subcut AC for 30 days October, Active insulin lispro 1 00 unit/mL InPn every night at bedtime . 0 Active insulin lispro ( HumaLOG U-100 Insulin) 100 unit/mL injection Inject under the skin. Active Insulin Lispro ( HUMALOG SC) Inject under the skin. 0 Active insulin, regular, human 100 unt/ml injectable solution (16 sources) Insulin Start: 02-05-2018 End: 02-05-2018 Insulin Regular Human (Novolin R Regular U-100 Insuln) 100 unit/mL Solution Discontinued 50 UNIT SUBCUT Daily February 05, 2018 12:00am February 05, 2018 6:31pm Start: 02-05-2018 End: 02-05-2018 inject 30 [IU] by subcutaneous injection once daily at dinner Insulin Regular Human Discontinued 30 UNIT SUBCUT Daily February 05, 2018 12:00am February 05, 2018 6:30pm with dinner isosorbide dinitrate 10 mg oral tablet (4 sources) Nitrate Vasodilator Start: 10-08-2021 End: 10-08-2021 isosorbide dinitrate 10 mg Tab 60 mg = 6 tab(s), Tab, Oral, Start date 10/08/21 9:00:00 EDT, 10/06/21 22:05:00 EDT Start Date: 10/08/21 Stop Date: 10/08/21 Status: Completed Start: 10-16-2018 isosorbide din itrate 30 mg oral tablet 60 mg = 2 tab(s), Oral, Daily, Refills(s) 0, Chest pain Start Date: 10/16/18 Status: Ordered linseed oil 1000 mg oral capsule (20 sources) Start: 02-05-2018 End: 06-17-2023 take 1000 mg by mouth once daily in the morning Flaxseed Oil Discontinued 1000 MG PO Every morning February 05, 2018 12:00am June 17, 2023 5:16pm Flaxseed Oil 100 0 MG Oral Capsule TAKE DIRECTED. Quantity: 0 Refills: 0 Ordered: 29-Jun-2021 DO Active liothyronine sodium 0.05 mg oral tablet (8 sources) l-Triiodothyronine Start: 02-05-2018 End: 02-24-2021 take 50 ug by mouth once daily Liothyronine Discontinued 50 MCG PO Daily February 05, 2018 12:00am February 24, 2021 11:03am magnesium oxide 400 mg oral tablet (20 sources) Start: 02-05-2018 End: 05-12-2022 take 400 mg by mouth once daily in the morning Magnesium Oxide Discontinued 400 MG PO Every morning February 05, 2018 12:00am May 12, 2022 1:59pm Start: 09-14-2011 End: 06-17-2023 take 1 tablet by mouth once daily magnesium oxide 400 mg Tab 400 mg = 1 tab(s), Oral, Daily, Prophylaxis Start Date: 09/14/11 Status: Ordered take 1 capsule by [facility] every twenty-four hours Magnesium Oxide 400 MG 1 capsule Orally Once a day Active magnesium oxide (Mag-Ox) 400 mg tablet 400 mg daily. 0 Active melatonin 10 mg oral tablet (20 sources) Start: 10-23-2021 End: 07-25-2022 take 10 mg by mouth at bedtime Melatonin Discontinued 10 MG PO Bedtime May 12, 2022 1:00am July 25, 2022 10:52am Start: 07-17-2021 take 10 mg by mouth once daily at bedtime melatonin 10 mg, Oral, Once a day (at bedtime), Refills(s) 0 Start Date: 07/17/21 Status: Ordered Multi-Vitamin Gummies CHEW (6 sources) Multi-Vitamin Gu mmies CHEW TAKE 2 TABLET Daily Quantity: 0 Refills: 0 Ordered: 22-Sep-2022 DO Active nebulizer machine (13 sources) Start: 03-13-20 nebulizer machine nebulizer machine, See Instructions, 1 EA, 0, please provide machine with supplies, Supply Start Date: 03/13/23 Status: Ordered [place] 3 1200 MG (5 sources) take 1 capsule by mouth once daily [place] 3 1200 MG 1 capsule Orally Once a day Not-Taking ondansetron 4 mg oral tablet (6 sources) Serotonin-3 Receptor Antagonist Start: 06-25-19 Ondansetron HCl - 4 MG Oral Tablet Quantity: 28 Refills: 0 Ordered: 30-Jun-2020 DO Start : 25-Jun-2020 Active ondansetron (ZOF RAN) 4 MG tablet 1 tablet 0 Active oxyCODONE hydrochloride 5 mg oral tablet (1 source) Opioid Agonist Start: 06-25-2020 oxyCODONE HCl - 5 MG Oral Tablet Quantity: 28 Refills: 0 Ordered: 30-Jun-2020 DO Start : 25-Jun-2020 Active potassium chloride 20 meq powder for oral solution (20 sources) Start: 06-17-2023 End: 09-06-2023 take 20 mEq by mouth once daily Potassium Chloride Discontinued 20 MEQ PO Daily June 17, 2023 1:00am September 06, 2023 7:28am Start: 10-21-2021 take 1 capsule by [facility] once daily potassium chloride 10 mEq Cap-ER 10 mEq = 1 cap(s), Oral, Daily, Refills(s) 0 Start Date: 10/21/21 Status: Ordered Start: 10-21-2021 take 1 capsule by [facility] once daily potassium chloride 10 mEq Cap-ER 10 mEq = 1 cap(s), Oral, Daily, Refills(s) 0 Start Date: 10/21/21 Status: Ordered Start: 07-16-2019 potassium chlo ride 10 MEQ CR tablet Apply 1 tablet to the mouth or throat . 0 07/16/2019 Active Start: 02-05-2018 End: 05-12-2022 take 10 mEq by mouth once daily in the morning Potassium Chloride Discontinued 10 MEQ PO Every morning February 05, 2018 12:00am May 12, 2022 1:59pm sAXagliptin 5 mg oral tablet (5 sources) Dipeptidyl Peptidase 4 Inhibitor take 1 tablet by mouth every twenty-four hours Onglyza 5 MG 1 tablet Orally Once a day Not-Taking Sod Picosulf-Mag Ox-Citric Ac (1 source) Start: 08-15-19 End: 09-06-19 take 1 mL by mouth once daily Sod Picosulf-Mag Ox-Citric Ac (Clenpiq) 10 mg-3.5 gram- 12 gram/175 mL solution Discontinued 175 ML PO Daily 06 04August 15, 2023 12:00am September 06, 2023 7:28am please follow instructions provided by Dr. Mcgee's office. tamsulosin hydrochloride 0.4 mg oral capsule (20 sources) alpha-Adrenergic Valerio Start: 03-23-20 take 1 capsule by mouth once daily tamsulosin 0.4 mg Cap 30 EA, TAKE 1 CAPSULE BY MOUTH ONCE DAILY FOR 30 DAYS, Refills(s) 0 Start Date: 03/23/22 Status: Ordered Start: 02-19-2022 End: 03-21-2022 take 1 capsule by mouth once daily Flomax 0.4 mg Cap 0.4 mg = 1 cap(s), Oral, Daily, X 30 day(s), # 30 cap(s), Refills(s) 0, Pharmacy: [facility], 177.8, cm, 02/08/22 20:58:00 EDT, Height/Length Dosing, 110.4, kg, 02/08/22 20:58:00 EDT, Weight Dosing Start Date: 02/19/22 Stop Date: 03/21/22 Status: Ordered Start: 02-02-2022 End: 02-16-2022 Flomax 0.4 mg Cap 0.4 mg = 1 cap(s), Cap, Oral, Start date 02/11/22 9:00:00 EDT, 02/09/22 10:09:00 EDT Start Date: 02/11/22 Stop Date: 02/11/22 Status: Completed Start: 10-19-2021 End: 10-19-2021 Flomax 0.4 mg Cap 0.4 mg = 1 cap(s), Cap, Oral, Start date 10/19/21 9:00:00 EDT, 10/14/21 21:30:00 EDT Start Date: 10/19/21 Stop Date: 10/19/21 Status: Completed Start: 10-13-2021 End: 10-13-2021 Flomax 0.4 mg Cap 0.4 mg = 1 cap(s), Cap, Oral, Start date 10/13/21 9:00:00 EDT, 10/08/21 13:44:00 EDT Start Date: 10/13/21 Stop Date: 10/13/21 Status: Completed Start: 10-06-2021 take 1 capsule by [facility] once daily Flomax 0.4 mg Cap 0.4 mg = 1 cap(s), Oral, Daily, Refills(s) 0 Start Date: 10/06/21 Status: Ordered ticagrelor 90 mg oral tablet (8 sources) Start: 02-07-2018 End: 02-24-2021 take 1 tablet by mouth twice daily Ticagrelor (Brilinta) 90 mg Tablet Discontinued 90 MG PO Twice daily 180 90 February 07, 2018 12:00am February 24, 2021 11:05am traMADol hydrochloride 50 mg oral tablet (5 sources) Opioid Agonist take 1 tablet by mouth every six hours Ultram 50 MG 1 tablet as needed Orally every 6 hrs Not-Taking ubidecarenone 100 mg / vitamin e 5 unt oral capsule (10 sources) take 1 capsule by mouth once daily CoQ10 100 MG Oral Capsule TAKE 1 CAPSULE Daily Quantity: 0 Refills: 0 Ordered: 31-Jul-2022 DO Active vancomycin 100 mg/ml injectable solution (1 source) Glycopeptide Antibacterial Start: 07-26-2020 Vancomycin HCl - 10 GM Intravenous Solution Reconstituted Quantity: 1 Refills: 0 Ordered: 08-Sep-2020 DO Start : 26-Jul-2020 Active venlafaxine 75 mg oral tablet (20 sources) Serotonin and Norepinephrine Reuptake Inhibitor Start: 10-23-2021 venlafaxine 75 mg Tab 37.5 mg = 0.5 tab(s), Oral, BID, Refills(s) 0 Start Date: 10/23/21 Status: Ordered Start: 06-21-2021 End: 10-30-2023 take 0.5 tablet by mouth twice daily venlafaxine (EFFEXOR) 75 MG tablet 1/2 tab po BID . 45 tablet 1 12/27/2021 10/30/2023 Discontinued Start: 05-31-2021 End: 06-21-2021 take 1 tablet by mouth once daily venlafaxine (EFFEXOR) 75 MG tablet Take 75 mg by mouth daily . 0 05/31/2021 06/21/2021 Discontinued (Reorder) Start: 02-04-2021 End: 04-04-2023 take 0.5 tablet by mouth twice daily venlafaxine (Effexor) 37.5 mg tablet Take 0.5 tablets (18.75 mg) by mouth 2 times a day. 0 02/04/2021 04/04/2023 Discontinued (Other) Start: 02-04-2021 take 1 tablet by lashawn th twice daily Venlafaxine HCl - 37.5 MG Oral Tablet TAKE 1 TABLET BY MOUTH TWICE DAILY Quantity: 60 Refills: 0 Ordered: 08-Mar-2021 DO Start : 04-Feb-2021 Active Start: 03-23-2020 Venlafaxine HC l - 75 MG Oral Tablet TAKE 1 2 (ONE HALF) TABLET BY MOUTH TWICE DAILY Quantity: 90 Refills: 0 Ordered: 24-Apr-2020 DO Start : 23-Mar-2020 Active Start: 02-05-2018 End: 06-17-2023 take 18.75 mg by mouth twice daily Venlafaxine Discontinued 18.75 MG PO Twice daily February 05, 2018 12:00am June 17, 2023 5:15pm Start: 02-05-2018 take 37.5 mg by mout h twice daily Venlafaxine Active 37.5 MG PO Twice daily February 04, 2018 11:00pm Vitamin C CAPS (3 sources) Vitamin C CAPS T MICHELLE 3 CAPSULE Daily Quantity: 0 Refills: 0 Ordered: 29-Jun-2021 DO Active Problems Active Problems Problem Classification Problem Date Documented Da te Episodic/Chronic Acute and unspecified renal failure (2 sources) Acute renal failure syndrome; Translations: [Other acute kidney failure] Onset: 2 Episodic Anxiety disorders (20 sources) Generalized anxiety disorder; Translations: [Generalized anxiety disorder] Onset: 1 Chronic Asthma (7 sources) Seasonal asthma; Translations: [Unspecified asthma, uncomplicated] Onset: 2 Resolved: 8 01-28-2018 Chronic Cancer of bladder (20 sources) Malignant tumor of urinary bladder; Translations: [Malignant neoplasm of bladder, unspecified] Onset: 2 Chronic Cancer of bladder (4 sources) History of malignant neoplasm of bladder; Translations: [Personal history of malignant neoplasm of bladder] Onset: 3 Episodic Cancer; other and unspecified primary (20 sources) H/O: malignant neoplasm 08-02-2022 Episodic Cardiac dysrhythmias (20 sources) Paroxysmal ventricular tachycardia; Translations: [Paroxysmal ventricular tachycardia] Onset: 2 06-21-2021 Chronic Chronic kidney disease (20 sources) Chronic kidney disease stage 3; Translations: [Chronic kidney disease, stage 3 unspecified] Onset: 2 Chronic Chronic kidney disease (2 sources) Chronic kidney disease; Translations: [Chronic kidney disease, stage 3b (CMS/HCC)] Onset: 3 Chronic obstructive pulmonary disease and bronchiectasis (20 sources) Chronic obstructive lung disease; Translations: [Chronic airway obstruction, not elsewhere classified] Onset: 2 Chronic Chronic ulcer of skin (4 sources) Non-pressure chronic ulcer of left heel and midfoot limited to breakdown of skin; Translations: [Non-pressure chronic ulcer of other part of unspecified foot with unspecified severity] Onset: 3 Chronic Complication of device; implant or graft (20 sources) Arteriosclerosis of coronary artery bypass graft; Translations: [Coronary atherosclerosis of unspecified bypass graft] Onset: 3 Chronic Complications of surgical procedures or medical care (12 sources) Postoperative hemorrhage; Translations: [Postoperative hemorrhage] 05-12-2022 Episodic Conduction disorders (20 sources) Automatic implantable cardiac defibrillator in situ; Translations: [Automatic implantable cardiac defibrillator in situ] Onset: 3 12-07-2019 Chronic Congestive heart failure; nonhypertensive (20 sources) Congestive heart failure due to left ventricular systolic dysfunction; Translations: [Systolic heart failure] Onset: 2 Resolved: 8 01-28-2018 Chronic Coronary atherosclerosis and other heart disease (20 sources) Ischemic myocardial dysfunction; Translations: [Other specified forms of chronic ischemic heart disease] Onset: 2 12-07-2019 Chronic Deficiency and other anemia (6 sources) Anemia 11-04-2019 Episodic Deficiency and other anemia (20 sources) Chronic anemia 04-07-2021 Episodic Delirium, dementia, and amnestic and other cognitive disorders (2 sources) Dementia; Translations: [Mild dementia without behavioral disturbance, psychotic disturbance, mood disturbance, or anxiety, unspecified dementia type (HCC)] 03-20-2023 Chronic Diabetes mellitus with complications (20 sources) Type 2 diabetes mellitus with peripheral angiopathy; Translations: [Type 2 diabetes mellitus with diabetic peripheral angiopathy with gangrene] Onset: 2 Resolved: 2 06-21-2021 Chronic Diabetes mellitus without complication (20 sources) Diabetes mellitus; Translations: [Diabetes mellitus without mention of complication, type II or unspecified type, not stated as uncontrolled] Onset: 2 06-01-2020 Chronic Disorders of lipid metabolism (20 sources) Mixed hyperlipidemia; Translations: [Mixed hyperlipidemia] Onset: 2 06-21-2021 Chronic Esophageal disorders (20 sources) Gastroesophageal reflux disease; Translations: [Gastroesophageal reflux disease without esophagitis] Onset: 2 12-07-2019 Chronic Essential hypertension (20 sources) Benign essential hypertension; Translations: [Benign essential hypertension] Onset: 2 06-21-2021 Chronic Gastrointestinal hemorrhage (20 sources) Acute lower gastrointestinal hemorrhage; Translations: [Gastrointestinal hemorrhage, unspecified] Onset: 4 05-12-2022 Episodic Genitourinary symptoms and ill-defined conditions (20 sources) Disorder of urinary tract; Translations: [Dysuria] Onset: 2 10-21-2021 Episodic Hyperplasia of prostate (20 sources) Benign prostatic hypertrophy without outflow obstruction; Translations: [Benign prostatic hyperplasia without lower urinary tract symptoms] Onset: 2 Chronic Hypertension with complications and secondary hypertension (1 source) Hypertensive heart disease without heart failure; Translations: [HTN HEART DISEASE W/O HEART FAIL] Onset: 2 Chronic Infective arthritis and osteomyelitis (except that caused by tuberculosis or sexually transmitted disease) (11 sources) Osteomyelitis; Translations: [Osteomyelitis, unspecified] Onset: 2 Resolved: 2 Chronic Malaise and fatigue (20 sources) Asthenia; Translations: [Weakness] Onset: 2 Episodic Mood disorders (20 sources) Mild mixed bipolar I disorder; Translations: [Bipolar disorder, current episode mixed, mild] Onset: 2 Chronic Nutritional deficiencies (6 sources) Vitamin D deficiency; Translations: [Vitamin D deficiency, unspecified] Chronic Nutritional deficiencies (1 source) Cobalamin deficiency; Translations: [Deficiency of other specified B group vitamins] 03-20-2023 Episodic Occlusion or stenosis of precerebral arteries (20 sources) Carotid artery stenosis 04-07-2021 Chronic Osteoarthritis (2 sources) Primary osteoarthritis, left ankle and foot; Translations: [Unspecified osteoarthritis, unspecified site] Onset: 2 Chronic Other acquired deformities (20 sources) Contracture of ankle joint 02-17-2022 Chronic Other acquired deformities (1 source) Contracture, left ankle; Translations: [CONTRACTURE LEFT ANKLE] Onset: 3 Chronic Other aftercare (20 sources) Drug therapy finding; Translations: [Long-term (current) use of other medications] Episodic Other aftercare (5 sources) H/O: high risk medication; Translations: [Other correction (current) drug therapy] Episodic Other aftercare (6 sources) Long-term current use of insulin; Translations: [snf (current) use of insulin] Episodic Other aftercare (4 sources) snf (current) use of antibiotics Onset: 2 Resolved: 2 Episodic Other aftercare (20 sources) Long-term current use of anticoagulant; Translations: [long term care social worker (current) use of anticoagulants] Onset: 2 Episodic Other aftercare (4 sources) Encounter for follow-up examination after completed treatment for conditions other than malignant neoplasm; Translations: [ENC F/U EX AFTR CMPL TX NOT MAL ARMANDO] Onset: 3 Episodic Other aftercare (1 source) Polypharmacy ; Translations: [Other moth exterminator (current) drug therapy] 02-21-2023 Episodic Other aftercare (4 sources) Taking high risk medication; Translations: [Other correction (current) drug therapy] Onset: 3 02-23-2023 Episodic Other aftercare (1 source) Long-term current use of drug therapy; Translations: [Other moth exterminator (current) drug therapy] Onset: 4 Episodic Other aftercare (4 sources) Other correction (current) drug therapy; Translations: [Other correction (current) drug therapy] Onset: 3 Episodic Other and ill-defined heart disease (1 source) Heart disease, unspecified; Translations: [HEART DISEASE UNSPECIFIED] Onset: 2 Chronic Other and unspecified benign neoplasm (20 sources) Polyp of colon 12-07-2019 Episodic Other connective tissue disease (20 sources) Pain in limb 02-17-2022 Episodic Other connective tissue disease (5 sources) Pain in left foot; Translations: [PAIN IN LEFT FOOT] Onset: 2 Episodic Other diseases of kidney and ureters (2 sources) Urinary tract obstruction; Translations: [Other obstructive and reflux uropathy] Onset: 2 Episodic Other gastrointestinal disorders (1 source) Constipation, unspecified; Translations: [Constipation, unspecified] Onset: 2 Episodic Other gastrointestinal disorders (1 source) Diarrhea, unspecified Episodic Other gastrointestinal disorders (1 source) Diarrhea; Translations: [Diarrhea, unspecified] 08-03-2023 Episodic Other hereditary and degenerative nervous system conditions (12 sources) Restless legs; Translations: [Restless legs syndrome (RLS)] Onset: 3 02-23-2023 Chronic Other liver diseases (6 sources) Alkaline phosphatase raised 04-08-2021 Episodic Other lower respiratory disease (2 sources) Dyspnea; Translations: [Dyspnea, unspecified] Onset: 2 Episodic Other lower respiratory disease (1 source) Disorder of lung; Translations: [Other disorders of lung] Onset: 3 Episodic Other lower respiratory disease (1 source) Shortness of breath; Translations: [Shortness of breath] Onset: 4 Episodic Other male genital disorders (20 sources) Paraphimosis; Translations: [Paraphimosis] Onset: 2 Episodic Other male genital disorders (3 sources) Phimosis; Translations: [Phimosis] 07-25-2022 Episodic Other nervous system disorders (1 source) Metabolic encephalopathy; Translations: [Metabolic encephalopathy] Onset: 2 Chronic Other nervous system disorders (9 sources) Abnormal involuntary movement; Translations: [Abnormal involuntary movements] Episodic Other nervous system disorders (1 source) Tremor, unspecified; Translations: [Tremor, unspecified] Onset: 3 Episodic Other nervous system disorders (1 source) Other abnormal involuntary movements; Translations: [Other abnormal involuntary movements] Onset: 3 Episodic Other nervous system disorders (1 source) Impaired cognition; Translations: [Other symptoms and signs involving cognitive functions and awareness] 03-26-2023 Episodic Other non-traumatic joint disorders (20 sources) Charcot's joint of foot 04-08-2021 Chronic Other non-traumatic joint disorders (5 sources) Charcot's joint, left ankle and foot; Translations: [CHARCOTS JOINT LEFT ANKLE AND FO] Onset: 3 Chronic Other non-traumatic joint disorders (1 source) Pain in left ankle and joints of left foot; Translations: [PAIN IN LEFT ANKLE] Onset: 3 Episodic Other non-traumatic joint disorders (1 source) Stiffness of left foot, not elsewhere classified; Translations: [STIFFNESS LEFT FOOT NEC] Onset: 3 Episodic Other nutritional; endocrine; and metabolic disorders (20 sources) Body mass index 30+ - obesity; Translations: [Body Mass Index 33.0-33.9, adult] Onset: 4 10-16-2018 Chronic Other nutritional; endocrine; and metabolic disorders (20 sources) Obesity; Translations: [Obesity, unspecified] Onset: 2 01-28-2018 Chronic Other nutritional; endocrine; and metabolic disorders (6 sources) Obese class I; Translations: [Body mass index (BMI) 34.0-34.9, adult] Chronic Other nutritional; endocrine; and metabolic disorders (20 sources) Morbid obesity 02-17-2022 Chronic Other nutritional; endocrine; and metabolic disorders (2 sources) Obesity, unspecified; Translations: [Obesity, unspecified] Onset: 3 Chronic Other nutritional; endocrine; and metabolic disorders (2 sources) Body mass index (BMI) 32.0-32.9, adult; Translations: [Body mass index (BMI) 32.0-32.9, adult] Onset: 3 Chronic Other nutritional; endocrine; and metabolic disorders (2 sources) Body mass index (BMI) 33.0-33.9, adult; Translations: [Body mass index (BMI) 33.0-33.9, adult] Onset: 4 Chronic Parkinson`s disease (20 sources) Parkinson's disease; Translations: [Parkinson's disease] Onset: 2 Resolved: 3 Chronic Residual codes; unclassified (20 sources) Obstructive sleep apnea of adult; Translations: [Obstructive sleep apnea (adult)(pediatric)] Onset: 3 02-23-2023 Chronic Residual codes; unclassified (20 sources) Obstructive sleep apnea syndrome; Translations: [Obstructive sleep apnea (adult) (pediatric)] Onset: 2 10-23-2021 Chronic Residual codes; unclassified (1 source) Dependence on enabling machine or device; Translations: [Dependence on other enabling machines and devices] Onset: 2 Chronic Residual codes; unclassified (2 sources) Obstructive sleep apnea (adult) (pediatric); Translations: [Obstructive sleep apnea (adult) (pediatric)] Onset: 3 Chronic Residual codes; unclassified (2 sources) Patient encounter status; Translations: [Other specified health status] Onset: 2 Episodic Residual codes; unclassified (1 source) Procedure carried out on subject; Translations: [Encounter for prophylactic measures, unspecified] Onset: 2 Episodic Residual codes; unclassified (6 sources) Family history of cancer; Translations: [Family history of malignant neoplasm of prostate] Onset: 2 Episodic Residual codes; unclassified (20 sources) Family history of prostate cancer 03-23-2022 Episodic Residual codes; unclassified (1 source) Amnesia; Translations: [Other amnesia] 02-20-2023 Episodic Thyroid disorders (20 sources) Hypothyroidism; Translations: [Unspecified acquired hypothyroidism] Onset: 1 06-21-2021 Chronic Unclassified (4 sources) Parkinsonism; Translations: [Parkinsonism, unspecified Parkinsonism type] Onset: 3 03-26-2023 Chronic Unclassified (20 sources) Long-term current use of insulin 10-23-2021 Unclassified (20 sources) Patient encounter status 03-23-2022 Unclassified (1 source) Other ventricular tachycardia (Multi); Translations: [Other ventricular tachycardia (Multi)] Onset: 3 Unclassified (1 source) Other ventricular tachycardia (CMS/HCC); Translations: [Other ventricular tachycardia (CMS/HCC)] Onset: 3 Unclassified (1 source) Parkinsonism, unspecified; Translations: [Parkinsonism, unspecified] Onset: 3 Past or Other Problems Problem Classification Problem Date Documented Date Episodic/Chronic Acquired foot deformities (1 source) Other acquired deformities of left foot; Translations: [OTHER ACQUIRED DEFORMITIES LT FOOT] Onset: 12-01-2021 Episodic Coronary atherosclerosis and other heart disease (20 sources) Patient post percutaneous transluminal coronary angioplasty; Translations: [Percutaneous transluminal coronary angioplasty status] Onset: 02-23-2023 02-23-2023 Episodic Deficiency and other anemia (1 source) Anemia, unspecified; Translations: [ANEMIA UNSPECIFIED] Onset: 03-29-2022 Episodic Fluid and electrolyte disorders (15 sources) Hyperkalemia; Translations: [Hyperpotassemia] Onset: 02-23-2023 02-23-2023 Episodic Hemorrhoids (20 sources) Hemorrhoids without complication Resolved: 10-21-2021 01-28-2018 Episodic Mood disorders (3 sources) Mood disorders Onset: 12-15-2021 07-16-2022 Other circulatory disease (20 sources) History of atrial flutter; Translations: [Personal history of other diseases of circulatory system] Resolved: 05-05-2021 Episodic Other circulatory disease (20 sources) H/O: angina pectoris; Translations: [Personal history of other diseases of circulatory system] Resolved: 06-29-2021 Episodic Other connective tissue disease (9 sources) Transient neurological symptoms; Translations: [Other symptoms involving nervous and musculoskeletal systems] Onset: 02-23-2023 02-23-2023 Episodic Other connective tissue disease (2 sources) Other symptoms and signs involving the nervous system; Translations: [Other symptoms and signs involving the nervous system] Onset: 02-23-2023 Episodic Other injuries and conditions due to external causes (20 sources) At risk for falls ; Translations: [History of fall] Onset: 02-23-2023 02-23-2023 Episodic Other nervous system disorders (3 sources) Involuntary movement; Translations: [Unspecified abnormal involuntary movements] Onset: 02-23-2023 02-23-2023 Episodic Other nervous system disorders (2 sources) Other symptoms and signs involving cognitive functions and awareness; Translations: [Other symptoms and signs involving cognitive functions and awareness] Onset: 03-26-2023 Episodic Other non-traumatic joint disorders (1 source) Other instability, left foot; Translations: [OTHER INSTABILITY LEFT FOOT] Onset: 05-13-2022 Episodic Other nutritional; endocrine; and metabolic disorders (6 sources) H/O: metabolic disorder; Translations: [Personal history of other endocrine, metabolic, and immunity disorders] Resolved: 09-22-2022 Episodic Other screening for suspected conditions (not mental disorders or infectious disease) (20 sources) Cardiovascular stress test abnormal; Translations: [Other nonspecific abnormal results of function study of cardiovascular system] Onset: 03-23-2022 Resolved: 06-29-2021 Episodic Other skin disorders (5 sources) Corns and callosities; Translations: [CORNS AND CALLOSITIES] Onset: 03-24-2022 Episodic Residual codes; unclassified (2 sources) Other amnesia; Translations: [Other amnesia] Onset: 02-20-2023 Episodic Screening and history of mental health and substance abuse codes (20 sources) H/O: manic depressive disorder; Translations: [Personal history of affective disorders] Onset: 02-23-2023 02-23-2023 Episodic Comment on above: QUIT 11/2001; Unclassified (2 sources) Onset: 04-04-2023 Resolved: 10-17-2023 04-04-2023 Unclassified (1 source) Other ventricular tachycardia (Multi); Translations: [Other ventricular tachycardia (Multi)] Onset: 10-17-2023 Unclassified (1 source) Other ventricular tachycardia (CMS/HCC); Translations: [Other ventricular tachycardia (CMS/HCC)] Onset: 04-04-2023 Unclassified (1 source) Parkinsonism, unspecified; Translations: [Parkinsonism, unspecified] Onset: 03-26-2023 Varicose veins of lower extremity (1 source) Varicose veins of unspecified lower extremity with other complications; Translations: [VARICOSE VEINS OF UNS LE OTH COMP] Onset: 05-13-2022 Episodic Viral infection (1 source) Disease caused by 2019-nCoV; Translations: [COVID-19] Onset: 2021 Results Test Name Value Interpretation Reference Range Facility Pulmonary Function Studieson 11-02-2023 Pulmonary Function Studies [facility] Comment on above: Result Comment: Elec tronically Signed By: Caterina BROUSSARD, Nicolás Chavez\.br\Date and Time Signed: 11/01/23 23:16 EDT Insurance Correspondenceon 0 11-01-2023 Insurance Correspondence [id number]#1.00TIFF Normal [facility] Ambulatory Visit Summaryon 0 10-31-2023 Ambulatory Visit Summary [facility] Consent for Treatmenton 10-03 Consent for Treatment [id number]#1.00TIFF [facility] Oncology Progress Noteon Oncology Progress Note Normal [facility] Reference Lab Reporton 10-30 Reference Lab Report [id number]#1.00TIFF [facility] Consent for Treatmenton 10-03 Consent for Treatment [id number]#1.00TIFF [facility] Pulmonary Function Testson 0 10-24-2023 Pulmonary Function Tests [id number]#1.00TIFF [facility] ECG 12 Leadon 10-17-2023 ECG revealed atrial pacemaker rhythm, IVCD and nonspecific ST and T changes [facility] Work Phone: Erythropoiet Lvlon 4 Erythropoietin (EPO) Qn 27.1 mIU/mL High 2.6-18.5 [facility] Comment on above: Result Comment: ElectroCore UniCel DxI 800 Immunoassay SystemValues obtained with different assay methods or kits cannot be usedinterchangeably. Results cannot be interpreted as absolute evidenceof the presence or absence of malignant disease.Performed at: [facility] [place], [place] [id number] PhD Erick Nielsen Performed By: #### 2 356259, 12995472, 92095248, 535364912, 02218753 ####[facility] [address] [place] [address] Free K+L Lt Chains,Qn,Son Immunoglobulin light chains.kappa.free (S) [Mass/Vol] 51.2 mg/L High 3.3-19.4 [facility] Comment on above: Performed By: #### 2 478577, 75626233, 80723824, 726208692, 10902267 ####[facility] [address] [place] [address] Immunoglobulin light chains.kappa.free/Immu noglobulin light chains.lambda.free (S) [Mass ratio] 1.46 Invalid Interpretation Code 0.26-1.65 [facility] Comment on above: Result Comment: Perf ormed at: [employer] [place], [place] [id number] PhD Erick Neilsen Performed By: #### 2 594707, 81595666, 14396298, 654238485, 93893754 ####[facility] [address] [place] [address] Immunoglobulin light chains.lambda.free [Mass/Vol] 35.0 mg/L High 5.7-26.3 [facility] Comment on above: Performed By: #### 2 295711, 19859797, 41534974, 615938117, 79227504 ####[address] [place] [address] MARGUERITE and PE, Serumon 10-17-19 24 Albumin [Mass/Vol] 3.5 g/dL Invalid Interpretation Code 2.9-4.4 [facility] Comment on above: Performed By: #### 2 660705, 83679960, 40242485, 183643936, 45455201 ####[address] [place] [address] Albumin/Globulin [Mass ratio] 1.0 {ratio} Invalid Interpretation Code 0.7-1.7 [facility] Comment on above: Performed By: #### 2 433200, 17460805, 45323296, 752791581, 05884936 ####[address] [address] Alpha 1 globulin Elph [Mass/Vol] 0.2 g/dL Invalid Interpretation Code 0.0-0.4 [facility] Comment on above: Performed By: #### 2 071596, 45211824, 56730906, 237819229, 64579969 ####[address] [address] Alpha 2 globulin Elph [Mass/Vol] 1.2 g/dL High 0.4-1.0 [facility] Comment on above: Performed By: #### 2 244574, 72129337, 93000256, 321979129, 04444861 ####[address] [place] [address] Beta globulin Elph [Mass/Vol] 1.1 g/dL Invalid Interpretation Code 0.7-1.3 [facility] Comment on above: Performed By: #### 2 454822, 81986342, 57663238, 262540751, 68808586 ####[address] [place] [address] Gamma globulin Elph [Mass/Vol] 1.1 g/dL Invalid Interpretation Code 0.4-1.8 [facility] Comment on above: Performed By: #### 2 877624, 24203212, 76985245, 996398941, 19509108 ####[facility] [address] [place] [address] Globulin (S) [Mass/Vol] 3.6 g/dL Invalid Interpretation Code 2.2-3.9 [facility] Comment on above: Performed By: #### 2 838284, 67378542, 40604089, 066789758, 44284839 ####[facility] [address] [place] [address] IgA [Mass/Vol] 246 mg/dL Invalid Interpretation Code 61-108 [facility] Comment on above: Performed By: #### 2 093022, 21189763, 30213061, 229165104, 37619560 ####[facility] [address] [place] [address] IgG [Mass/Vol] 1031 mg/dL Invalid Interpretation Code 603-4598 [facility] Comment on above: Performed By: #### 2 663637, 13265044, 81530860, 412081331, 46464630 ####[facility] [address] [place] [address] IgM [Mass/Vol] 102 mg/dL Invalid Interpretation Code 15143 [facility] Comment on above: Performed By: #### 2 098174, 29147623, 56815591, 295983424, 54826834 ####[facility] [address] [place] [address] Interpretation IEP [Interp] Comment Invalid Interpretation Code [facility] Comment on above: Result Comment: No m onoclonality detected. Performed By: #### 2 930963, 30380622, 15562396, 544999859, 20266061 ####[facility] [address] [place] [address] Laboratory comment Alonso (Report) Comment Invalid Interpretation Code [facility] Comment on above: Result Comment: Prot ein electrophoresis scan will follow via computer, mail, orcourier delivery.Performed at: [facility] [place], [place] [id number] PhD Erick Nielsen Performed By: #### 2 217015, 66482113, 48922856, 879681441, 58253011 ####[facility] [address] [place] [address] Protein [Mass/Vol] 7.1 g/dL Invalid Interpretation Code 6.0-8.5 [facility] Comment on above: Performed By: #### 2 249808, 84263592, 85973966, 649821496, 65533142 ####[facility] [address] [place] [address] Protein.monoclonal Elph [Mass/Vol] Not Observed Invalid Interpretation Code Not Observed [facility] Comment on above: Performed By: #### 2 081550, 99701393, 09834079, 400667320, 12445586 ####[facility] [address] [place] [address] Methylmalonic Acidon 024 Methylmalonate [Moles/Vol] 178 nmol/L Invalid Interpretation Code 0-378 [facility] Comment on above: Result Comment: This test was developed and its performance characteristicsdetermined by [facility]. It has not been cleared or approvedby the Food and Drug Administration.Performed at: [address] [id number] MD Timoteo Breen Performed By: #### 2 742167, 33400193, 41647141, 715617158, 21849142 ####[facility] [address] [place] [address] Physician Orderon 10-17-2023 Physician Order [id number]#1.00TIFF Normal [facility] CBC w/ Auto Diffon 4 Basophils/100 WBC (Bld) 1.3 % Normal 0.0-2.0 [facility] Comment on above: Performed By: #### 2 262796, 0447247, 2277235, 4563478, 0909011, 5777716, 43827369 ####[address] [place] [address] Basophils/Leukocytes Auto (Bld) [Pure # fraction] 0.1 E9/L Normal 0.0-0.2 [facility] Comment on above: Performed By: #### 2 999783, 4496081, 8193604, 4723704, 7317742, 3013777, 19611952 ####[address] [address] Eosinophils (Bld) [#/Vol] 0.3 E9/L Normal 0.0-0.5 [facility] Comment on above: Performed By: #### 2 074273, 2420194, 1548262, 2591035, 7584027, 7469695, 55208991 ####[address] Eosinophils/100 WBC (Bld) 3.8 % Normal 0.0-8.0 [facility] Comment on above: Performed By: #### 2 019063, 2390994, 3323885, 0846704, 4210825, 4865778, 84544872 ####[id number] Erythrocyte distribution width (RBC) [Ratio] 16.5 % High 10.9-14.2 [facility] Comment on above: Performed By: #### 2 824340, 8278360, 9566724, 9088631, 1771595, 1965813, 17421547 ####[address] [place] [address] Hematocrit (Bld) [Volume fraction] 34.1 % Low 37.7-49.0 [facility] Comment on above: Performed By: #### 2 820880, 9802358, 1157070, 8069085, 1426915, 6120189, 89339583 ####[id number] Hemoglobin (Bld) [Mass/Vol] 11.2 g/dL Low 13.5-17.5 [facility] Comment on above: Performed By: #### 2 922325, 7826358, 7167942, 3989282, 1687513, 0895183, 40034216 ####[facility] [address] [place] [address] Lymphocytes (Bld) [#/Vol] 1.4 E9/L Normal 1.0-4.0 [facility] Comment on above: Performed By: #### 2 598235, 5878456, 3052115, 9292245, 7714344, 0213397, 32737731 ####[facility] [address] [place] [address] Lymphocytes/100 WBC (Bld) 16.6 % Normal 14.0-50.0 [facility] Comment on above: Performed By: #### 2 237147, 8685301, 9201900, 3567100, 1776054, 5497939, 35012107 ####[facility] [address] [place] [address] MCH (RBC) [Entitic mass] 28.6 pg Normal 27.0-34.0 [facility] Comment on above: Performed By: #### 2 658524, 2296398, 2981309, 4782919, 7925143, 2610291, 91463854 ####[facility] [address] [place] [address] MCHC (RBC) [Mass/Vol] 32.9 g/dL Normal 31.4-36.0 [facility] Comment on above: Performed By: #### 2 476410, 5847784, 3554113, 7132298, 7423927, 3026118, 51429399 ####[facility] [address] [place] [address] MCV (RBC) [Entitic vol] 86.9 fL Normal 80.0-100.0 [facility] Comment on above: Performed By: #### 2 832501, 0179555, 2720133, 0805593, 8505522, 0909339, 83694870 ####[address] [place] [address] Monocytes (Bld) [#/Vol] 0.5 E9/L Normal 0.2-1.0 [facility] Comment on above: Performed By: #### 2 484371, 3852984, 7483658, 9712893, 4655831, 4246087, 82815301 ####[address] [address] Neutrophils (Bld) [#/Vol] 5.9 E9/L Normal 2.0-7.5 [facility] Comment on above: Performed By: #### 2 415002, 4739581, 8082157, 7206573, 6622976, 6224135, 19387527 ####[address] [address] Neutrophils/100 WBC (Bld) 72.1 % Normal 36.0-75.0 [facility] Comment on above: Performed By: #### 2 317160, 3229964, 2719210, 4031989, 8800830, 2781431, 04727281 ####[address] [address] Platelet mean volume (Bld) [Entitic vol] 7.0 fL Normal 6.4-10.8 [facility] Comment on above: Performed By: #### 2 946917, 4109316, 6360970, 3346221, 7160711, 7361292, 90991376 ####[address] [address] Platelets (Bld) [#/Vol] 286.0 E9/L Normal 150.0-500. 0 [facility] Comment on above: Performed By: #### 2 745917, 6179707, 5199613, 3454277, 7298198, 9278434, 89899851 ####[address] [address] RBC (Bld) [#/Vol] 3.9 E12/L Low 4.3-5.9 [facility] Comment on above: Performed By: #### 2 791444, 9031461, 0800300, 6045396, 7494633, 4607602, 94651720 ####[facility] [address] [place] [address] WBC corrected for nucl RBC Auto (Bld) [#/Vol] 8.3 E9/L Normal 4.0-11.0 [facility] Comment on above: Performed By: #### 2 145874, 7943034, 7288350, 2264351, 4826685, 6156734, 69901486 ####[facility] [address] [place] [address] CHEMISTRYOrdered By: SYSTEM SYSTEM on 10-13-2023 Albumin [Mass/Vol] 4.2 g/dL Normal 3.3 - 5.0 gm/dL Remisol Chem Albumin/Globulin [Mass ratio] 1.4 {ratio} Normal 1.1 - 2.2 Remisol Chem ALP [Catalytic activity/Vol] 80 [iU]/d Normal 21 - 98 Int._Unit/ L [facility]isol Chem ALT No additional P-5'-P [Catalytic activity/Vol] 16 [iU]/d Normal 6 - 46 Int._Unit/ L [facility] Anion gap [Moles/Vol] 14 mmol/L Normal 6 - 16 mEq/L [facility] AST [Catalytic activity/Vol] 19 [iU]/d Normal 5 - 43 Int._Unit/ L [facility] Bilirubin [Mass/Vol] 0.4 mg/dL Normal 0.0 - 1 .1 mg/dL [facility] Calcium [Mass/Vol] 8.7 mg/dL Low 8.9 - 11. 1 mg/dL [facility] Chloride [Moles/Vol] 105 mmol/L Normal 101 - 1 11 mmol/L [facility] CO2 [Moles/Vol] 29 mmol/L Normal 21 - 31 mmol/L [facility] Creatinine [Mass/Vol] 1.3 mg/dL Normal 0.5 - 1.3 mg/dL [facility] eGFR 57 mL/min/1.73 m2 Low >=59mL/min /1.73 m2 [facility] Ferritin [Mass/Vol] 35 ng/mL Normal 24 - 336 ng/mL [facility] Globulin (S) [Mass/Vol] 3.1 g/dL Normal 1.4 - 4.0 gm/dL [facility] Glucose [Mass/Vol] 204 mg/dL High 55 - 199 mg/dL [facility] Iron [Mass/Vol] 60 ug/dL Normal 35 - 153 mcg/dL [facility] Iron binding capacity [Mass/Vol] 326 ug/dL Normal 250 - 400 mcg/dL [facility] Iron saturation [Mass fraction] 18 % Low 20 - 50 % [facility] Potassium [Moles/Vol] 4.1 mmol/L Normal 3.5 - 5.3 mmol/L [facility] Protein [Mass/Vol] 7.3 g/dL Normal 6.0 - 7.8 gm/dL [facility] Sodium [Moles/Vol] 144 mmol/L Normal 135 - 145 mmol/L [facility] Transferrin [Mass/Vol] 233 mg/dL Normal 200 - 370 mg/dL [facility] Urea nitrogen [Mass/Vol] 21 mg/dL Normal 5 - 21 mg/dL [facility] Urea nitrogen/Creatinine [Mass ratio] 16 mg/mg Normal 10 - 20 Remisol Chem CMPon 10-13-2023 Albumin [Mass/Vol] 4.2 g/dL Normal 3.3-5.0 [facility] Comment on above: Performed By: #### 2 304103, 2650043, 3498366, 0419552, 2247933, 1496402, 64955537 ####[facility] [address] [place] [address] Albumin/Globulin (S) [Mass conc ratio] 1.4 Normal 1.1-2.2 [facility] Comment on above: Performed By: #### 2 757830, 3083127, 0041484, 9203848, 6603932, 7523379, 31511121 ####[facility] [address] [place] [address] ALP [Catalytic activity/Vol] 80 Int._Unit/L Normal 21-98 [facility] Comment on above: Performed By: #### 2 487424, 9513176, 2599146, 4232354, 4319106, 2494489, 00287549 ####[facility] [address] [place] [address] ALT No additional P-5'-P [Catalytic activity/Vol] 16 Int._Unit/L Normal 6-46 [facility] Comment on above: Performed By: #### 2 872940, 1543712, 6238904, 2878764, 4771282, 4739148, 52462543 ####[facility] [address] [place] [address] Anion gap [Moles/Vol] 14 mmol/L Normal 6-16 [facility] Comment on above: Performed By: #### 2 959206, 3803731, 2200244, 5258108, 1371340, 0321051, 71699641 ####[address] [address] AST [Catalytic activity/Vol] 19 Int._Unit/L Normal 5-43 [facility] Comment on above: Performed By: #### 2 823137, 5804453, 7743531, 4642884, 2929223, 6078818, 18758067 ####[facility] [address] [place] [address] Bilirubin [Mass/Vol] 0.4 mg/dL Normal 0.0-1.1 [facility] Comment on above: Performed By: #### 2 416904, 3497577, 5152689, 4336959, 9568825, 9662472, 52104878 ####[facility] [address] [place] [address] Calcium [Mass/Vol] 8.7 mg/dL Low 8.9-11.1 [facility] Comment on above: Performed By: #### 2 691986, 5843168, 9741809, 1020406, 1055882, 3418848, 42748806 ####[facility] [address] [place] [address] Chloride [Moles/Vol] 105 mmol/L Normal 101-111 [facility] Comment on above: Performed By: #### 2 462163, 1688663, 7929333, 7102813, 4055445, 6292858, 76364087 ####[facility] [address] [place] [address] CO2 [Moles/Vol] 29 mmol/L Normal 21-31 [facility] Comment on above: Performed By: #### 2 846381, 1516435, 0758684, 1778297, 2494476, 7575333, 53301376 ####[facility] [address] [place] [address] Creatinine [Mass/Vol] 1.3 mg/dL Normal 0.5-1.3 [facility] Comment on above: Performed By: #### 2 123373, 8299287, 8753937, 5033053, 3898751, 3082899, 04577640 ####[facility] [address] [place] [address] Globulin (S) [Mass/Vol] 3.1 g/dL Normal 1.4-4.0 [facility] Comment on above: Performed By: #### 2 643801, 6218465, 4706100, 2626411, 8772515, 1295364, 99888808 ####[facility] [address] [place] [address] Glucose [Mass/Vol] 204 mg/dL High 55-199 [facility] Comment on above: Performed By: #### 2 809510, 8970443, 1463238, 1629225, 0834549, 2554128, 27208139 ####[facility] [address] [place] [address] Potassium [Moles/Vol] 4.1 mmol/L Normal 3.5-5.3 [facility] Comment on above: Performed By: #### 2 248671, 8313768, 2454492, 1697817, 7601970, 5254738, 68726768 ####[facility] [address] [place] [address] Protein [Mass/Vol] 7.3 g/dL Normal 6.0-7.8 [facility] Comment on above: Performed By: #### 2 790688, 4386199, 7331712, 2036248, 3667685, 0546313, 84213493 ####[facility] [address] [place] [address] Sodium [Moles/Vol] 144 mmol/L Normal 135-145 [facility] Comment on above: Performed By: #### 2 380757, 3404032, 2800845, 8145531, 5909416, 1906514, 86933080 ####[facility] [address] [place] [address] Urea nitrogen [Mass/Vol] 21 mg/dL Normal 5-21 [facility] Comment on above: Performed By: #### 2 982671, 4533218, 4747776, 1682390, 7576223, 5204267, 10584000 ####[facility] [address] [place] [address] Urea nitrogen/Creatinine [Mass ratio] 16 No Units Normal 10-20 [facility] Comment on above: Performed By: #### 2 188466, 9933213, 3482260, 0384595, 1003539, 6583138, 26059620 ####[facility] [address] [place] [address] Consent for Treatmenton 10-02 Consent for Treatment [id number] Normal [facility] Ferritinon 10-13-2023 Ferritin [Mass/Vol] 35 ng/mL Normal 24-336 [facility] Comment on above: Performed By: #### 2 164884, 0754455, 5080299, 2484530, 7862558, 0171578, 11113253 ####[facility] [address] [place] [address] HEMATOLOGYOrdered By: SYSTEM SYSTEM on 10-13-2023 Basophils/100 WBC (Bld) 1.3 % Normal 0.0 - 2.0 % Rem[facility] Heme Basophils/Leukocytes Auto (Bld) [Pure # fraction] 0.1 E9/L Normal 0.0 - 0.2 E9/L [facility] Eosinophils (Bld) [#/Vol] 0.3 E9/L Normal 0.0 - 0.5 E9/L [facility] Eosinophils/100 WBC (Bld) 3.8 % Normal 0.0 - 8.0 % [facility] Erythrocyte distribution width (RBC) [Ratio] 16.5 % High 10.9 - 14.2 % [facility] Hematocrit (Bld) [Volume fraction] 34.1 % Low 37.7 - 49.0 % [facility] Hemoglobin (Bld) [Mass/Vol] 11.2 g/dL Low 13.5 - 17.5 gm/dL [facility] Lymphocytes (Bld) [#/Vol] 1.4 E9/L Normal 1.0 - 4.0 E9/L [facility] Lymphocytes/100 WBC (Bld) 16.6 % Normal 14.0 - 50.0 % [facility] MCH (RBC) [Entitic mass] 28.6 pg Normal 27.0 - 34.0 pg [facility] MCHC (RBC) [Mass/Vol] 32.9 g/dL Normal 31.4 - 36.0 gm/dL [facility] MCV (RBC) [Entitic vol] 86.9 fL Normal 80.0 - 100.0 fL [facility] Monocytes (Bld) [#/Vol] 0.5 E9/L Normal 0.2 - 1.0 E9/L [facility] Monocytes/100 WBC (Bld) 6.2 % Normal 4.0 - 14.0 % [facility] Neutrophils (Bld) [#/Vol] 5.9 E9/L Normal 2.0 - 7.5 E9/L [facility] Neutrophils/100 WBC (Bld) 72.1 % Normal 36.0 - 75.0 % [facility] Platelet mean volume (Bld) [Entitic vol] 7.0 fL Normal 6.4 - 10.8 fL [facility] Platelets (Bld) [#/Vol] 286.0 E9/L Normal 150.0 - 500.0 E9/L [facility] RBC (Bld) [#/Vol] 3.9 E12/L Low 4.3 - 5.9 E12/L [facility] Reticulocytes/100 RBC (Bld) 1.5 % Normal 0.5 - 2.2 % [facility] WBC corrected for nucl RBC Auto (Bld) [#/Vol] 8.3 E9/L Normal 4.0 - 11.0 E9/L [facility] Ironon 10-13-2023 Iron [Mass/Vol] 60 microgram/dL Normal 35-153 [facility] Comment on above: Performed By: #### 2 411722, 3833177, 6882118, 9530225, 4983877, 6888064, 46687668 ####[facility] [address] [place] [address] Iron Saturationon 10-13-2023 Iron binding capacity [Mass/Vol] 326 microgram/dL Normal 250-400 [facility] Comment on above: Performed By: #### 2 053105, 4459255, 6488689, 7195298, 3662651, 9397209, 45914588 ####[address] [place] [address] Iron saturation [Mass fraction] 18 % Low 20-50 [facility] Comment on above: Performed By: #### 2 147189, 6823354, 1125947, 1250369, 2086238, 0510130, 30546734 ####[facility] [address] [place] [address] Retic Counton 10-13-2023 Reticulocytes/100 RBC (Bld) 1.5 % Normal .5-2.2 [facility] Comment on above: Performed By: #### 2 943383, 18251041, 30460697, 912867377, 49149193 ####[facility] [address] [place] [address] Transferrinon 10-13-2023 Transferrin [Mass/Vol] 233 mg/dL Normal 200-370 [facility] Comment on above: Performed By: #### 2 190246, 1124913, 8248055, 6211076, 7400641, 2415775, 42883789 ####[facility] [address] [place] [address] eGFRon 10-13-2023 eGFR 57 mL/min/1.73 m2 Low >=59 [facility] Comment on above: Order Comment: Order added by Discern Expert. Performed By: #### 2 260227, 4168121, 0261983, 9100184, 2967734, 1348548, 30442611 ####[facility] [address] [place] [address] 36on 09-25-2023 36 Left detailed messag e for pharmacy to remove Keisha brambila as prescriber for levothyroxine as this needs to go to his PCP . Normal [facility] 36 Rx sent for 90 days, no refills. PCP should've taken over prescribing this. Can you follow-up with pt's pharmacy to send future refill requests to PCP? Thx Normal [facility] Reminderson 09-25-2023 Reminders Normal [facility] UroVysion Fish and Urine Cyt o ([facility])on 09-25-2023 UVFISH & UC Diagnosis Info Invalid Interpretation Code [facility] Comment on above: Result Comment: A:Ur ine,Urine:Bladder WashDiagnosis Summary - No evidence of high grade urothelial carcinoma identified. Adequate cellularity for evaluation.Diagnosis Summary - The UroVysion FISH study detected normal copy numbers for chromosomes 3, 7, 17, and 9p21. 100 cells were analyzed in this evaluation. No evidence of aneuploidy for chromosomes 3, 7, or 17 or deletion of the 9p21 locus was found in cells present in this specimen. This test does not rule out the possibility of a low grade non-invasive papillary urothelial carcinoma. These findings should be correlated with cytology and cystoscopy results.* CPT 77524, 79449.Microscopic Notes -Microscopic Notes -Abnormal cells 9p21 deletions:Abnormal cells aneploid events:Total cells analyzed: 100Hematuria:Gross DescriptionSite ID:A color Yellow fixative Alcohol Received 100 mls of clear yellow fluid with the patient's name and, Urine on the vial.Electronically signed by : on: 07/23/2023 23:12:06 Performed By: #### 1 [id number] ####[facility] [address] [place] [address] CHEMISTRYOrdered By: SYSTEM SYSTEM on 09-12-2023 Albumin [Mass/Vol] 4.2 g/dL Normal 3.3 - 5.0 gm/dL [facility] Chem Albumin/Globulin [Mass ratio] 1.4 {ratio} Normal 1.1 - 2.2 [facility] Chem ALP [Catalytic activity/Vol] 73 [iU]/d Normal 21 - 98 Int._Unit/ L [facility] Chem ALT No additional P-5'-P [Catalytic activity/Vol] 12 [iU]/d Normal 6 - 46 Int._Unit/ L [facility] Chem Anion gap [Moles/Vol] 14 mmol/L Normal 6 - 16 mEq/L [facility] Chem AST [Catalytic activity/Vol] 11 [iU]/d Normal 5 - 43 Int._Unit/ L [facility] Chem Bilirubin [Mass/Vol] 0.4 mg/dL Normal 0.0 - 1 .1 mg/dL [facility] Chem Calcium [Mass/Vol] 9.2 mg/dL Normal 8.9 - 11. 1 mg/dL [facility] Chem Chloride [Moles/Vol] 103 mmol/L Normal 101 - 1 11 mmol/L [facility] Chem CO2 [Moles/Vol] 27 mmol/L Normal 21 - 31 mmol/L [facility] Chem Creatinine [Mass/Vol] 1.5 mg/dL High 0.5 - 1.3 mg/dL [facility] Chem eGFR 48 mL/min/1.73 m2 Low >=59mL/min /1.73 m2 [facility] Chem Globulin (S) [Mass/Vol] 3.0 g/dL Normal 1.4 - 4.0 gm/dL [facility] Chem Glucose [Mass/Vol] 142 mg/dL Normal 55 - 199 mg/dL [facility] Chem Potassium [Moles/Vol] 4.2 mmol/L Normal 3.5 - 5.3 mmol/L [facility] Chem Protein [Mass/Vol] 7.2 g/dL Normal 6.0 - 7.8 gm/dL [facility] Chem Sodium [Moles/Vol] 140 mmol/L Normal 135 - 145 mmol/L [facility] Chem Urea nitrogen [Mass/Vol] 21 mg/dL Normal 5 - 21 mg/dL [facility] Chem Urea nitrogen/Creatinine [Mass ratio] 14 mg/mg Normal 10 - 20 [facility] Chem CMPon 09-12-2023 Albumin [Mass/Vol] 4.2 g/dL Normal 3.3-5.0 [facility] Comment on above: Performed By: #### 2 611120, 69432947 ####[facility] [address] [place] [address] Albumin/Globulin (S) [Mass conc ratio] 1.4 Normal 1.1-2.2 [facility] Comment on above: Performed By: #### 2 493766, 21596202 ####[facility] [address] [place] [address] ALP [Catalytic activity/Vol] 73 Int._Unit/L Normal 21-98 [facility] Comment on above: Performed By: #### 2 696713, 71618462 ####[facility] [address] [place] [address] ALT No additional P-5'-P [Catalytic activity/Vol] 12 Int._Unit/L Normal 6-46 [facility] Comment on above: Performed By: #### 2 910854, 92162912 ####[facility] [address] [place] [address] Anion gap [Moles/Vol] 14 mmol/L Normal 6-16 [facility] Comment on above: Performed By: #### 2 578521, 02658723 ####[facility] [address] [place] [address] AST [Catalytic activity/Vol] 11 Int._Unit/L Normal 5-43 [facility] Comment on above: Performed By: #### 2 411467, 93269240 ####[facility] [address] [place] [address] Bilirubin [Mass/Vol] 0.4 mg/dL Normal 0.0-1.1 [facility] Comment on above: Performed By: #### 2 555135, 64729972 ####[facility] [address] [place] [address] Calcium [Mass/Vol] 9.2 mg/dL Normal 8.9-11.1 [facility] Comment on above: Performed By: #### 2 950159, 04083370 ####[facility] [address] [place] [address] Chloride [Moles/Vol] 103 mmol/L Normal 101-111 [facility] Comment on above: Performed By: #### 2 531969, 40070057 ####[facility] [address] [place] [address] CO2 [Moles/Vol] 27 mmol/L Normal 21-31 [facility] Comment on above: Performed By: #### 2 210981, 76242325 ####[address] [address] Creatinine [Mass/Vol] 1.5 mg/dL High 0.5-1.3 [facility] Comment on above: Performed By: #### 2 329642, 97273778 ####[facility] [address] [place] [address] Globulin (S) [Mass/Vol] 3.0 g/dL Normal 1.4-4.0 [facility] Comment on above: Performed By: #### 2 246224, 65693575 ####[facility] [address] [place] [address] Glucose [Mass/Vol] 142 mg/dL Normal 55-199 [facility] Comment on above: Performed By: #### 2 580087, 60420328 ####[facility] [address] [place] [address] Potassium [Moles/Vol] 4.2 mmol/L Normal 3.5-5.3 [facility] Comment on above: Performed By: #### 2 352166, 09305401 ####[facility] [address] [place] [address] Protein [Mass/Vol] 7.2 g/dL Normal 6.0-7.8 [facility] Comment on above: Performed By: #### 2 636546, 21587873 ####[facility] [address] [place] [address] Sodium [Moles/Vol] 140 mmol/L Normal 135-145 [facility] Comment on above: Performed By: #### 2 651093, 73305990 ####[facility] [address] [place] [address] Urea nitrogen [Mass/Vol] 21 mg/dL Normal 5-21 [facility] Comment on above: Performed By: #### 2 613182, 88131840 ####[address] [address] Urea nitrogen/Creatinine [Mass ratio] 14 No Units Normal 10-20 [facility] Comment on above: Performed By: #### 2 066638, 41803021 ####[address] [address] Consent for Treatmenton 09-02 Consent for Treatment [id number]#1.00TIFF Normal [facility] Physician Orderon 09-12-2023 Physician Order [id number]#1.00TIFF Normal [facility] eGFRon 09-12-2023 eGFR 48 mL/min/1.73 m2 Low >=59 [facility] Comment on above: Order Comment: Order added by Discern Expert. Performed By: #### 2 220395, 05469615 ####[facility] [address] [place] [address] Lab Reportson 09-07-2023 Lab Reports [id number]#1.00TIFF Normal [facility] Reference Lab Reporton 09-06 Reference Lab Report [id number]#1.00TIFF Normal [facility] Glucose Glucometer (BldC) [M ass/Vol]Ordered By: Bill Mcgee on 09-06-2023 Glucose [Mass/Vol] 126 mg/dL [facility] Comment on above: Random Glucose Refer ence Range is dependent on time and content of last meal. Glucose of more than 200 mg/dL in a nonstressed, ambulatory subject supports the diagnosis of Diabetes Mellitus. Glucose Poct Glucometerson 0 09-06-2023 Commemt1 Glu2: Cleaned Meter Normal [facility] Comment on above: Result Comment: PERF ORMED BY: [facility] [address] [place] [address] PATHOLOGIST INSTRUMENT ASSEMBLER ANUSHA MANCUSO M.D. Performed By: #### G LULS #### Point of Care testing , Glucose [Mass/Vol] 126 mg/dL Normal [facility] Comment on above: Result Comment: [place] om Glucose Reference Range is dependent on time and content of last meal. Glucose of more than 200 mg/dL in a nonstressed, ambulatory subject supports the diagnosis of Diabetes Mellitus. Performed By: #### G LULS #### Point of Care testing , Victor M 09-06-2023 L Specimen: Received: 09/06/23 Status: TAY Martínez Num: [id number] Spec Type: Surgical Subm Dr: Bill Mcgee MD Tissues: A Colon Biopsy (CECAL POLYP) B Colon Biopsy (SIGMOID POLYP) Procedures: HE/4, Gross/Micro L4/2 Age/ Patient Sex Location Account Attending Physician José Luis Faulkner 72/M [id number] Bill Mcgee MD SPEC NUM: RECD: 09/06/23 STATUS: TAY MARTÍNEZ NUM: [id number] BASIA: 09/06/23 DR: Bill Mcgee MD ENTERED: 09/06/[address] [facility] DR: SPEC TYPE: Surgical DEPT: S ORDERED: HE/4, Gross/Micro L4/2 ORDERED: JOSRBulmaro, Gross/Micro L4/2 Pathological Diagnosis A. Polyp, cecum, biopsy: Tubulovillous Adenoma. - Negative For High Grade Dysplasia And Malignancy. B. Polyp, sigmoid colon, biopsy: Tubular adenoma. - Negative For High Grade Dysplasia And Malignancy. Gross Description A. The specimen is labeled cecal polyp. Specimen consists of multiple soft tissue fragments 1 x 1 x 0.2 cm. All in 1 cassette. B. Specimen is labeled sigmoid polyp. Specimen consists of 2 polypoid tissue fragments 2 and 3 mm. All in 1 cassette. CPT Codes 16529g5 Specimen: Received: 09/06/23 Status: TAY Aníbal Num: [id number] Spec Type: Surgical Subm Dr: Bill Mcgee MD Tissues: A Colon Biopsy (CECAL POLYP) B Colon Biopsy (SIGMOID POLYP) Procedures: JOSR/Bulmaro, Gross/Micro L4/2 Patient: José Luis Faulkner [id number] (Continued) Signed (signature on file) Quirino Madrigal MD 09/07/23 1351 Normal [facility] No Panel InformationOrdered By: Bill Mcgee on 09-06-2023 Bedside Glucose Comment Glu2: cleaned meter [facility] General Message Officeon General Message Office Normal [facility] BMPon 08-29-2023 Anion gap [Moles/Vol] 10 mmol/L Normal 6-16 [facility] Comment on above: Performed By: #### 2 518086, 36258555 ####[facility] [address] [place] [address] Calcium [Mass/Vol] 8.1 mg/dL Low 8.9-11.1 [facility] Comment on above: Performed By: #### 2 507753, 13616374 ####[facility] [address] [place] [address] Chloride [Moles/Vol] 109 mmol/L Normal 101-111 [facility] Comment on above: Performed By: #### 2 142177, 55001176 ####[facility] [address] [place] [address] CO2 [Moles/Vol] 24 mmol/L Normal 21-31 [facility] Comment on above: Performed By: #### 2 597882, 98371338 ####[facility] [address] [place] [address] Creatinine [Mass/Vol] 1.4 mg/dL High 0.5-1.3 [facility] Comment on above: Performed By: #### 2 718781, 06146333 ####[facility] [address] [place] [address] Glucose [Mass/Vol] 118 mg/dL Normal 55-199 [facility] Comment on above: Performed By: #### 2 472731, 98408111 ####[facility] [address] [place] [address] Potassium [Moles/Vol] 4.5 mmol/L Normal 3.5-5.3 [facility] Comment on above: Performed By: #### 2 394158, 11628299 ####[facility] [address] [place] [address] Sodium [Moles/Vol] 138 mmol/L Normal 135-145 [facility] Comment on above: Performed By: #### 2 685835, 60426183 ####[facility] [address] [place] [address] Urea nitrogen [Mass/Vol] 26 mg/dL High 5-21 [facility] Comment on above: Performed By: #### 2 046651, 26601947 ####[facility] [address] [place] [address] Urea nitrogen/Creatinine [Mass ratio] 19 No Units Normal 10-20 [facility] Comment on above: Performed By: #### 2 089505, 99233641 ####[facility] [address] [place] [address] CHEMISTRYOrdered By: Lab ROP User on 08-29-2023 Glucose [Mass/Vol] 205 mg/dL High 55 - 99 mg/dL [facility] POC Subsection Comment on above: Result Comment: Kennedy espitia RN/ POC Device SN [id number] 1 Invalid Interpretation Code [facility] P[facility] Subsection POC User ID [id number] 1 Invalid Interpretation Code [facility] POC Subsection POC Username DAWN LANDA Invalid Interpretation Code [facility] P[facility] Subsection Glucose [Mass/Vol] 109 mg/dL High 55 - 99 mg/dL [facility] P[facility] Subsection Comment on above: Result Comment: Repe at Test POC Device SN [id number] 1 Invalid Interpretation Code [facility] POC Subsection POC User ID [id number] 1 Invalid Interpretation Code [facility] POC Subsection POC Username DAWN LANDA Invalid Interpretation Code [facility] P[facility] Subsection CHEMISTRYOrdered By: SYSTEM SYSTEM on 08-29-2023 Anion gap [Moles/Vol] 10 mmol/L Normal 6 - 16 mEq/L [facility] Chem Calcium [Mass/Vol] 8.1 mg/dL Low 8.9 - 11. 1 mg/dL [facility] Chloride [Moles/Vol] 109 mmol/L Normal 101 - 1 11 mmol/L [facility] CO2 [Moles/Vol] 24 mmol/L Normal 21 - 31 mmol/L [facility] Creatinine [Mass/Vol] 1.4 mg/dL High 0.5 - 1.3 mg/dL [facility] Chem eGFR 53 mL/min/1.73 m2 Low >=59mL/min /1.73 m2 [facility] Glucose [Mass/Vol] 118 mg/dL Normal 55 - 199 mg/dL [facility] Potassium [Moles/Vol] 4.5 mmol/L Normal 3.5 - 5.3 mmol/L [facility] Sodium [Moles/Vol] 138 mmol/L Normal 135 - 145 mmol/L [facility] Urea nitrogen [Mass/Vol] 26 mg/dL High 5 - 21 mg/dL [facility] Urea nitrogen/Creatinine [Mass ratio] 19 mg/mg Normal 10 - 20 [facility] Capillary Glucose POCon 08-03 Glucose [Mass/Vol] 205 mg/dL High 55-99 [facility] Comment on above: Result Comment: Kennedy espitia RN/ Performed By: #### 2 [id number] ####[address] [place] [address] Glucose [Mass/Vol] 109 mg/dL High 55-99 [facility] Comment on above: Result Comment: Repe at Test Performed By: #### 2 [id number] ####[address] [place] [address] Discharge Instructionson Discharge Instructions [id number]#1.00TIFF Normal [facility] Discharge Note-Nursingon Discharge Note-Nursing Normal [facility] Education Videoon GetWell Education Video What Is Atrial Fibrillation? Yes Patient Normal [facility] GetWell Education Video Yes Patient Caring for Your Urinary Catheter Normal [facility] GetWell Education Video Care in the Hospital: Preventing a Urinary Catheter Infection Normal [facility] GetWell Education Video Yes Patient Atrial Fibrillation: Managing Your Symptoms Normal [facility] GetWell Education Video Yes Patient Atrial Fibrillation: Living Well Normal [facility] GetWell Education Video Yes Patient Atrial Fibrillation: Feeling More in Control Normal [facility] GetWell Education Video Yes Patient Avoiding Infections in the Hospital Normal [facility] Inpatient Clinical Summaryon 08-29-2023 Inpatient Clinical Summary Normal [facility] Inpatient Patient Summaryon 08-29-2023 Inpatient Patient Summary [facility] Insurance Correspondence Off iceon 08-29-2023 Insurance Correspondence Office [id number]#1.00TIFF [facility] Interdisciplinary Note - Edwardo e Manageron 08-29-2023 Interdisciplinary Note - Dietitian Consultant [facility] Comment on above: Result Comment: Elec tronically Signed By: Estelita Sam RN\.br\Date and Time Signed: 08/29/23 10:35 EDT Message from Medicareon 08-03 Message from Medicare [id number]#1.00TIFF [facility] Monitor Recordon 08-29-2023 Monitor Record [id number]#1.00TIFF [facility] Progress Note-Physicianon Progress Note-Physician [facility] Comment on above: Result Comment: Elec tronically Signed By: JOSE BROUSSARD, Olaf\.br\Date and Time Signed: 08/29/23 09:58 EDT eGFRon 08-29-2023 eGFR 53 mL/min/1.73 m2 Low >=59 [facility] Comment on above: Order Comment: Order added by Discern Expert. Performed By: #### 2 [id number], [id number] ####[facility] [address] [place] [address] BMPon 08-28-2023 Anion gap [Moles/Vol] 15 mmol/L Normal 6-16 [facility] Comment on above: Performed By: #### 1 4485071, 6864484, 14471741, [id number] ####[facility] [address] [place] [address] Calcium [Mass/Vol] 8.3 mg/dL Low 8.9-11.1 [facility] Comment on above: Performed By: #### 1 2550233, 7125347, 61170300, 356767665 ####[facility] [address] [place] [address] Chloride [Moles/Vol] 107 mmol/L Normal 101-111 [facility] Comment on above: Performed By: #### 1 9206759, 6536294, 80163896, 377547974 ####[facility] [address] [address] CO2 [Moles/Vol] 23 mmol/L Normal 21-31 [facility] Comment on above: Performed By: #### 1 8761994, 9562894, 64284785, 127309200 ####[facility] [address] [place] [address] Creatinine [Mass/Vol] 2.1 mg/dL High 0.5-1.3 [facility] Comment on above: Performed By: #### 1 5416185, 0458291, 92883641, 082673512 ####[facility] [address] [place] [address] Glucose [Mass/Vol] 84 mg/dL Normal 55-199 [facility] Comment on above: Performed By: #### 1 2476317, 7264408, 94985047, 466490768 ####[facility] [address] [address] Potassium [Moles/Vol] 4.6 mmol/L Normal 3.5-5.3 [facility] Comment on above: Performed By: #### 1 3337277, 5754561, 39563739, 443767230 ####[facility] [address] [place] [address] Sodium [Moles/Vol] 140 mmol/L Normal 135-145 [facility] Comment on above: Performed By: #### 1 5962639, 9452816, 97670839, [id number] ####[facility] [address] [place] [address] Urea nitrogen [Mass/Vol] 51 mg/dL High 5-21 [facility] Comment on above: Performed By: #### 1 0696230, 9396376, 28384429, 680733421 ####[facility] [address] [place] [address] Urea nitrogen/Creatinine [Mass ratio] 24 No Units High 10-20 [facility] Comment on above: Performed By: #### 1 7714218, 0993119, 30016663, 695148751 ####[facility] [address] [place] [address] CHEMISTRYOrdered By: Lab ROP User on 08-28-2023 Glucose [Mass/Vol] 220 mg/dL High 55 - 99 mg/dL [facility] POC Subsection Comment on above: Result Comment: Kennedy espitia RN/ POC Device SN [id number] Invalid Interpretation Code [facility] POC Subsection POC User ID [id number] 1 Invalid Interpretation Code [facility] POC Subsection POC Username KIAN BROWN Invalid Interpretation Code [facility] POC Subsection CHEMISTRYOrdered By: SYSTEM SYSTEM on 08-28-2023 Anion gap [Moles/Vol] 15 mmol/L Normal 6 - 16 mEq/L [facility] Chem Calcium [Mass/Vol] 8.3 mg/dL Low 8.9 - 11. 1 mg/dL [facility] Chloride [Moles/Vol] 107 mmol/L Normal 101 - 1 11 mmol/L [facility] CO2 [Moles/Vol] 23 mmol/L Normal 21 - 31 mmol/L [facility] Chem Creatinine [Mass/Vol] 2.1 mg/dL High 0.5 - 1.3 mg/dL [facility] Chem eGFR 32 mL/min/1.73 m2 Low >=59mL/min /1.73 m2 [facility] Glucose [Mass/Vol] 84 mg/dL Normal 55 - 199 mg/dL [facility] Potassium [Moles/Vol] 4.6 mmol/L Normal 3.5 - 5.3 mmol/L [facility] Sodium [Moles/Vol] 140 mmol/L Normal 135 - 145 mmol/L [facility] Troponin 18.30 pg/mL Normal 15.90 - 38.40 pg/mL [facility] Comment on above: Interpretive Data: T he 95% CI (Confidence Interval) PPV (Positive Predictive Value) for myocardial infarction in females is 38 pg/mL, in males 51 pg/mL. The results should be used in conjunction with clinical conditions of myocardial infarction. (Access High Sensitivity Troponin I Instructions For Use, [employer], January 2018) Urea nitrogen [Mass/Vol] 51 mg/dL High 5 - 21 mg/dL [facility] Urea nitrogen/Creatinine [Mass ratio] 24 mg/mg High 10 - 20 [facility] Troponin 17.30 pg/mL Normal 15.90 - 38.40 pg/mL [facility] Comment on above: Interpretive Data: T he 95% CI (Confidence Interval) PPV (Positive Predictive Value) for myocardial infarction in females is 38 pg/mL, in males 51 pg/mL. The results should be used in conjunction with clinical conditions of myocardial infarction. (Access High Sensitivity Troponin I Instructions For Use, [employer], January 2018) CHEMISTRYOrdered By: Cris Luis on 08-28-2023 HbA1c (Bld) [Mass fraction] 8.9 % High <=5.9% [facility] ChemAutoSS Capillary Glucose POCon 08-03 Glucose [Mass/Vol] 220 mg/dL High 55-99 [facility] Comment on above: Result Comment: Kennedy SULLIVAN Performed By: #### 2 [id number] ####[facility] [address] [place] [address] Glucose [Mass/Vol] 185 mg/dL High 55-99 [facility] Comment on above: Result Comment: Kennedy SULLIVAN Performed By: #### 2 [id number] ####[facility] [address] [place] [address] Glucose [Mass/Vol] 137 mg/dL High 55-99 [facility] Comment on above: Result Comment: Kennedy espitia RN/ Performed By: #### 2 [id number] ####[facility] [address] [place] [address] Glucose [Mass/Vol] 78 mg/dL Normal 55-99 [facility] Comment on above: Result Comment: Kennedy espitia RN/ Performed By: #### 2 [id number] ####[facility] [address] [place] [address] ED Clinical Summaryon 2023 ED Clinical Summary Normal [facility] ED Note-Physicianon 08-28-19 ED Note-Physician Normal [facility] Comment on above: Result Comment: Elec tronically Signed By: Srinivasa Courtney DO\.br\Date and Time Signed: 08/27/23 23:01 EDT ED Patient Education Noteon 08-28-2023 ED Patient Education Note Normal [facility] ED Patient Summaryon 024 ED Patient Summary Normal [facility] TrfM7gwm 08-28-2023 HbA1c (Bld) [Mass fraction] 8.9 % High <=5.9 [facility] Comment on above: Performed By: #### 1 1107554, 8828659, 17041228, [id number] ####[facility] [address] [place] [address] Insurance Correspondence Off iceon 08-28-2023 Insurance Correspondence Office [id number] Normal [facility] Interdisciplinary Note - Edwardo e Manageron 08-28-2023 Interdisciplinary Note - Dietitian Consultant Normal [facility] Comment on above: Result Comment: Elec tronically Signed By: Estelita Sam RN\.br\Date and Time Signed: 08/28/23 10:51 EDT Interdisciplinary Note - PTo n 08-28-2023 Interdisciplinary Note - PT Normal [facility] Monitor Recordon 08-28-2023 Monitor Record [id number] Normal [facility] Monitor Record [id number] Normal [facility] Progress Note-Nurseon 2023 Progress Note-Nurse Normal Fishe [facility]arshal [facility] Progress Note-Physicianon Progress Note-Physician Normal [facility] Comment on above: Result Comment: Elec tronically Signed By: JOSE BROUSSARD, Olaf\.br\Date and Time Signed: 08/28/23 10:05 EDT Troponin 3 Hr.on 08-28-2023 Troponin 18.60 pg/mL Normal 15.90-38.4 0 [facility] Comment on above: Result Comment: The 95% CI (Confidence Interval) PPV (Positive Predictive Value) for myocardial infarction in females is 38 pg/mL, in males 51 pg/mL. The results should be used in conjunction with clinical conditions of myocardial infarction.(Access High Sensitivity Troponin I Instructions For Use, [employer], January 2018) Performed By: #### 1 [id number] ####[facility] [address] [place] [address] Troponin 6 Hr.on 08-28-2023 Troponin 17.30 pg/mL Normal 15.90-38.4 0 [facility] Comment on above: Result Comment: The 95% CI (Confidence Interval) PPV (Positive Predictive Value) for myocardial infarction in females is 38 pg/mL, in males 51 pg/mL. The results should be used in conjunction with clinical conditions of myocardial infarction.(Access High Sensitivity Troponin I Instructions For Use, [employer], January 2018) Performed By: #### 1 [id number] ####[facility] [address] [place] [address] Troponin 9 Hr.on 08-28-2023 Troponin 18.30 pg/mL Normal 15.90-38.4 0 [facility] Comment on above: Result Comment: The 95% CI (Confidence Interval) PPV (Positive Predictive Value) for myocardial infarction in females is 38 pg/mL, in males 51 pg/mL. The results should be used in conjunction with clinical conditions of myocardial infarction.(Access High Sensitivity Troponin I Instructions For Use, Milagro [place], January 2018) Performed By: #### 1 [id number], 1421753, 43696153, [id number] ####[facility] [address] [place] [address] URINALYSISOrdered By: SYSTEM SYSTEM on 08-28-2023 Color (U) Light-Yellow 1 (08/28/23 5:34 AM) Normal Yellow [facility] Auto SS Comment on above: Interpretive Data: M icroscopic readings are only performed on those samples that meet specific criteria set forth by [facility]. Glucose (U) [Mass/Vol] 4 mg/dL Invalid Interpretation Code Negativemg /dL [facility] Auto SS Ketones Ql (U) Negative Normal Negativemg /dL [facility] Auto SS UA Blood Negative Normal Negativemg /dL [facility] Auto SS UA Clarity Clear (08/28/23 5:34 AM) Normal Clear [facility] Auto SS UA Leuk Est Negative Normal NegativeLe u/uL [facility] Auto SS UA Nitrite Negative Normal Negativemg /dL [facility] Auto SS UA pH 5.0 *NA* (08/28/23 5:34 AM) Invalid Interpretation Code 5.0 - 9.0 [facility] Auto SS UA Protein Negative Normal Negativemg /dL [facility] Auto SS UA Spec Grav 1.017 *NA* (08/28/23 5:34 AM) Invalid Interpretation Code 1.005 - 1.030 [facility] Auto SS UA Urobilinogen Negative Normal Negativemg /dL [facility] Auto SS Urobilinogen (U) [Mass/Vol] Negative Normal Negativemg /dL [facility] Auto SS URINALYSISOrdered By: Alliso n Janet on 08-28-2023 UA Spec Desc Catheter (08/28/23 5:34 AM) Normal [facility] Auto SS US Renalon 08-28-2023 US Renal Normal [facility] XR Chest Single Viewon 08-27 XR Chest Single View Normal Fish [facility] eGFRon 08-28-2023 eGFR 32 mL/min/1.73 m2 Low >=59 [facility] Comment on above: Order Comment: Order added by Discern Expert. Performed By: #### 1 7768230, 3589448, 94837750, [id number] ####[facility] [address] [place] [address] BMPon 08-27-2023 Anion gap [Moles/Vol] 18 mmol/L High 6-16 [facility] Comment on above: Performed By: #### 2 092377, 09690609, 8147609, 6589190, 36773875, 42395182, 47431316 ####[facility] [address] [place] [address] Calcium [Mass/Vol] 8.5 mg/dL Low 8.9-11.1 [facility] Comment on above: Performed By: #### 2 439174, 23280457, 5462977, 4982577, 53788948, 70855637, 26367418 ####[facility] [address] [place] [address] Chloride [Moles/Vol] 103 mmol/L Normal 101-111 [facility] Comment on above: Performed By: #### 2 910259, 61997405, 4178542, 5305379, 59734800, 61704911, 19076372 ####[facility] [address] [place] [address] CO2 [Moles/Vol] 21 mmol/L Normal 21-31 [facility] Comment on above: Performed By: #### 2 307969, 45107608, 1680565, 7259194, 72873443, 29649661, 21569414 ####[facility] [address] [place] [address] Creatinine [Mass/Vol] 2.5 mg/dL High 0.5-1.3 [facility] Comment on above: Performed By: #### 2 796841, 79615978, 7050203, 9602987, 35708531, 41447631, 78811287 ####[facility] [address] [place] [address] Glucose [Mass/Vol] 182 mg/dL Normal 55-199 [facility] Comment on above: Performed By: #### 2 163379, 20654388, 3889359, 5505937, 14243741, 26748667, 50565961 ####[facility] [address] [place] [address] Potassium [Moles/Vol] 4.9 mmol/L Normal 3.5-5.3 [facility] Comment on above: Performed By: #### 2 503735, 05869300, 9914949, 8465730, 36704968, 14871594, 44653371 ####[facility] [address] [place] [address] Sodium [Moles/Vol] 137 mmol/L Normal 135-145 [facility] Comment on above: Performed By: #### 2 732560, 08066683, 7725836, 1521254, 46362924, 56251325, 79263213 ####[facility] [address] [place] [address] Urea nitrogen [Mass/Vol] 55 mg/dL High 5-21 [facility] Comment on above: Performed By: #### 2 239210, 77675295, 6635645, 1745331, 00620134, 86422999, 96808437 ####[facility] [address] [place] [address] Urea nitrogen/Creatinine [Mass ratio] 22 No Units High 10-20 [facility] Comment on above: Performed By: #### 2 356332, 32473182, 2272220, 3067473, 66803683, 94971513, 60744120 ####[facility] [address] [place] [address] BNPon 08-27-2023 Natriuretic peptide B (Bld) [Mass/Vol] 79 pg/mL Normal 5-80 [facility] Comment on above: Performed By: #### 2 182708, 81744398, 3960172, 4228190, 56961083, 60334445, 71760286 ####[facility] [place] 4494757 CBC w/ Auto Diffon 08-26- 4 Basophils/100 WBC (Bld) 1.4 % Normal 0.0-2.0 [facility] Comment on above: Performed By: #### 2 827605, 73865467, 1193817, 2961620, 77434573, 40101212, 05084022 ####[place] [address]2757 Basophils/Leukocytes Auto (Bld) [Pure # fraction] 0.1 E9/L Normal 0.0-0.2 [facility] Comment on above: Performed By: #### 2 889548, 45685562, 2234001, 5040839, 49093638, 09649466, 48991020 ####[place] [address]2757 Eosinophils (Bld) [#/Vol] 0.3 E9/L Normal 0.0-0.5 [facility] Comment on above: Performed By: #### 2 553602, 54257408, 2446820, 9562121, 08006224, 33627068, 13809057 ####[address] [address] Eosinophils/100 WBC (Bld) 3.6 % Normal 0.0-8.0 [facility] Comment on above: Performed By: #### 2 213525, 64651378, 3813250, 8722013, 97908904, 02175245, 83515938 ####[address] [address] Erythrocyte distribution width (RBC) [Ratio] 16.5 % High 10.9-14.2 [facility] Comment on above: Performed By: #### 2 732852, 42635381, 9245553, 6840971, 50736490, 62875775, 95302315 ####[address] [address] Hematocrit (Bld) [Volume fraction] 33.3 % Low 37.7-49.0 [facility] Comment on above: Performed By: #### 2 511301, 86485880, 4815168, 5506263, 19379531, 26803047, 48366056 ####[facility] [address] [place] [address] Hemoglobin (Bld) [Mass/Vol] 10.9 g/dL Low 13.5-17.5 [facility] Comment on above: Performed By: #### 2 702355, 40915911, 6115858, 5473137, 62224468, 32549310, 17464175 ####[facility] [address] [place] [address] Lymphocytes (Bld) [#/Vol] 1.9 E9/L Normal 1.0-4.0 [facility] Comment on above: Performed By: #### 2 678517, 98700792, 0813471, 5568084, 05061421, 08355349, 24453935 ####[address] [address] Lymphocytes/100 WBC (Bld) 23.6 % Normal 14.0-50.0 [facility] Comment on above: Performed By: #### 2 025063, 12711774, 7731686, 3921103, 80821975, 42574920, 06755564 ####[place] [address] [place] [address] MCH (RBC) [Entitic mass] 28.2 pg Normal 27.0-34.0 [facility] Comment on above: Performed By: #### 2 436319, 15869949, 1885531, 5502882, 63424862, 83903328, 02927206 ####[address] [address] MCHC (RBC) [Mass/Vol] 32.6 g/dL Normal 31.4-36.0 [facility] Comment on above: Performed By: #### 2 771078, 91117759, 4214839, 1389685, 22700216, 06555769, 74348038 ####[facility] [address] [place] [address] MCV (RBC) [Entitic vol] 86.4 fL Normal 80.0-100.0 [facility] Comment on above: Performed By: #### 2 740010, 84226409, 2523574, 6561846, 93823341, 46243533, 64513856 ####[place] [address] [place] [address] Monocytes (Bld) [#/Vol] 0.6 E9/L Normal 0.2-1.0 [facility] Comment on above: Performed By: #### 2 281694, 58902439, 5343348, 0497225, 01428608, 11137421, 22792798 ####[address] [address] Neutrophils (Bld) [#/Vol] 5.2 E9/L Normal 2.0-7.5 [facility] Comment on above: Performed By: #### 2 863947, 25443976, 5612472, 6952815, 47324344, 10930952, 02690725 ####[address] [address] Neutrophils/100 WBC (Bld) 63.7 % Normal 36.0-75.0 [facility] Comment on above: Performed By: #### 2 251955, 12842530, 7197944, 4200199, 70178471, 36491604, 78294818 ####[place] [address] [place] [address] Platelet 274.0 E9/L Normal 150.0-500. 0 [facility] Comment on above: Performed By: #### 2 753573, 12652966, 8026291, 5904128, 92464871, 79241121, 46600342 ####[facility] [address] [place] [address] Platelet mean volume (Bld) [Entitic vol] 7.1 fL Normal 6.4-10.8 [facility] Comment on above: Performed By: #### 2 528911, 78158217, 4909268, 8773346, 58577900, 06552822, 95743683 ####[facility] [address] [place] [address] RBC (Bld) [#/Vol] 3.9 E12/L Low 4.3-5.9 [facility] Comment on above: Performed By: #### 2 090541, 63378863, 1199091, 3965274, 58975512, 87404275, 19119664 ####[facility] [address] [place] [address] WBC corrected for nucl RBC Auto (Bld) [#/Vol] 8.1 E9/L Normal 4.0-11.0 [facility] Comment on above: Performed By: #### 2 954980, 16734123, 8602971, 1792934, 70599948, 81898822, 81344259 ####[facility] [address] [place] [address] CHEMISTRYOrdered By: SYSTEM SYSTEM on 08-27-2023 Troponin 18.60 pg/mL Normal 15.90 - 38.40 pg/mL [facility] Comment on above: Interpretive Data: T he 95% CI (Confidence Interval) PPV (Positive Predictive Value) for myocardial infarction in females is 38 pg/mL, in males 51 pg/mL. The results should be used in conjunction with clinical conditions of myocardial infarction. (Access High Sensitivity Troponin I Instructions For Use, [employer] [place], January 2018) Anion gap [Moles/Vol] 18 mmol/L High 6 - 16 mEq/L [facility] Calcium [Mass/Vol] 8.5 mg/dL Low 8.9 - 11. 1 mg/dL [facility] Chloride [Moles/Vol] 103 mmol/L Normal 101 - 1 11 mmol/L [facility] CO2 [Moles/Vol] 21 mmol/L Normal 21 - 31 mmol/L [facility] Creatinine [Mass/Vol] 2.5 mg/dL High 0.5 - 1.3 mg/dL [facility] eGFR 26 mL/min/1.73 m2 Low >=59mL/min /1.73 m2 [facility] Glucose [Mass/Vol] 182 mg/dL Normal 55 - 199 mg/dL [facility] Magnesium [Mass/Vol] 2.3 mg/dL Normal 1.3 - 2 .4 mg/dL [facility] Potassium [Moles/Vol] 4.9 mmol/L Normal 3.5 - 5.3 mmol/L [facility] Sodium [Moles/Vol] 137 mmol/L Normal 135 - 145 mmol/L [facility] Urea nitrogen [Mass/Vol] 55 mg/dL High 5 - 21 mg/dL [facility] Urea nitrogen/Creatinine [Mass ratio] 22 mg/mg High 10 - 20 [facility] CHEMISTRYOrdered By: Dania mejia on 08-27-2023 Natriuretic peptide B (Bld) [Mass/Vol] 79 pg/mL Normal 5 - 80 pg/mL [facility] COAGULATIONOrdered By: Jerrell Corey on 08-27-2023 aPTT Coag (PPP) [Time] 39.2 s High 25.1 - 36.5 second(s) [facility] Auto Coag Comment on above: Interpretive Data: Tosin shearer 15 days - 4 weeks 1 - 5 months 6 - 11 months 1 - 5 years 6 - 10 years 11 - 17 years PTT Mean: 35.4 (27.6-45.6) Mean: 33.5 (24.8-40.7) Mean: 32.4 (25.1-40.7) Mean: 31.6 (24.0-39.2) Mean: 31.6 (26.9-38.7) Mean: 31.0 (24.6-38.4) Pediatric Reference ranges were obtained from a study by Fei Yee et al. prepared from 1437 samples obtained at 7 different centers using the same coagulation reagent and instrumentation as [facility]. Currently there are no coagulation studies available worldwide for children to 14 days, and no normal ranges. Heparin therapeutic range (represented by Anti-Factor Xa activity of 0.2 - 0.4 U/mL) corresponds to PTT of 56.6 - 109.0 sec. INR Coag (PPP) [Relative time] 1.38 {INR} Invalid Interpretation Code [facility] Auto Coag Comment on above: Interpretive Data: I NR results are specifically intended to assess patients stabilized on long-term Anticoagulation therapy suggested INR s Less Intensive Anticoagulation 2.0 3.0 Conventional Range 3.0 4.5 PT Coag (PPP) [Time] 15.5 s High 9.4 - 1 2.5 second(s) [facility] Auto Coag Comment on above: Interpretive Data: 1 5 days - 4 weeks 1 - 5 months 6 -11 months 1-5 years 6-10 years 11 -17 years Mean: 11.2 (9.5-12.6) Mean: 11.0 (9.7-12.8) Mean: 11.0 (9.8-13.0) Mean: 11.3 (9.9-13.4) Mean: 11.7 (10.0-14.6) Mean: 11.8 (10.0 - 14.1) Pediatric Reference ranges were obtained from a study by Fei Yee et al. prepared from 1437 samples obtained at 7 different centers using the same coagulation reagent and instrumentation as [facility]. Currently there are no coagulation studies available worldwide for children to 14 days, and no normal ranges. Consent for Treatmenton 08-03 Consent for Treatment [id number] Normal [facility] HEMATOLOGYOrdered By: SYSTEM SYSTEM on 08-27-2023 Basophils/100 WBC (Bld) 1.4 % Normal 0.0 - 2.0 % [facility]e Basophils/Leukocytes Auto (Bld) [Pure # fraction] 0.1 E9/L Normal 0.0 - 0.2 E9/L [facility] Eosinophils (Bld) [#/Vol] 0.3 E9/L Normal 0.0 - 0.5 E9/L [facility] Eosinophils/100 WBC (Bld) 3.6 % Normal 0.0 - 8.0 % [facility] Erythrocyte distribution width (RBC) [Ratio] 16.5 % High 10.9 - 14.2 % [facility] Hematocrit (Bld) [Volume fraction] 33.3 % Low 37.7 - 49.0 % [facility] Hemoglobin (Bld) [Mass/Vol] 10.9 g/dL Low 13.5 - 17.5 gm/dL [facility] Lymphocytes (Bld) [#/Vol] 1.9 E9/L Normal 1.0 - 4.0 E9/L [facility] Lymphocytes/100 WBC (Bld) 23.6 % Normal 14.0 - 50.0 % [facility] MCH (RBC) [Entitic mass] 28.2 pg Normal 27.0 - 34.0 pg [facility] MCHC (RBC) [Mass/Vol] 32.6 g/dL Normal 31.4 - 36.0 gm/dL [facility] MCV (RBC) [Entitic vol] 86.4 fL Normal 80.0 - 100.0 fL [facility] Monocytes (Bld) [#/Vol] 0.6 E9/L Normal 0.2 - 1.0 E9/L [facility] Monocytes/100 WBC (Bld) 7.7 % Normal 4.0 - 14.0 % [facility] Neutrophils (Bld) [#/Vol] 5.2 E9/L Normal 2.0 - 7.5 E9/L [facility] Neutrophils/100 WBC (Bld) 63.7 % Normal 36.0 - 75.0 % [facility] Platelet 274.0 E9/L Normal 150.0 - 500.0 E9/L [facility] Platelet mean volume (Bld) [Entitic vol] 7.1 fL Normal 6.4 - 10.8 fL [facility] RBC (Bld) [#/Vol] 3.9 E12/L Low 4.3 - 5.9 E12/L [facility] WBC corrected for nucl RBC Auto (Bld) [#/Vol] 8.1 E9/L Normal 4.0 - 11.0 E9/L [facility] Influenza A&B Agon 4 Influenzae A Ag Negative Normal Negative [facility] Comment on above: Performed By: #### 1 [id number], [id number] ####[facility] [address] [place] [address] Influenzae B Ag Negative Normal Negative [facility] Comment on above: Result Comment: Test sensitivity and specificity vary for age group, specimen type, antigen types, and prevalence of disease. Test results must be evaluated in conjunction with other clinical data available to the physician. Individuals who received nasally administered Influenza A vaccine may have positive test results up to 3 days after vaccination. Performed By: #### 1 [id number], [id number] ####[facility] [address] [place] [address] MICRO OTHER TESTSOrdered By: Jerrell Corey on 08-27-2023 Influenzae A Ag Negative (08/27/23 9:02 PM) Normal Negative [facility] Sero Influenzae B Ag Negative 2 (08/27/23 9:02 PM) Normal Negative [facility] Comment on above: Interpretive Data: T est sensitivity and specificity vary for age group, specimen type, antigen types, and prevalence of disease. Test results must be evaluated in conjunction with other clinical data available to the physician. Individuals who received nasally administered Influenza A vaccine may have positive test results up to 3 days after vaccination. Rapid COV Int NEG Ctl Pass (08/27/23 9:02 PM) Normal [facility] Rapid COV Int POS Ctl Pass (08/27/23 9:02 PM) Normal [facility] SARS-CoV+SARS-CoV-2 (COVID-19) Ag IA.rapid Ql (Resp) Not Detected 12 (08/27/23 9:02 PM) Normal Not Detected [facility] Comment on above: Interpretive Data: T he Social [employer] Simplified Veritor System for Rapid Detection of SARS-CoV-2 is a chromatographic digital immunoassay intended for the direct and qualitative detection of SARS-CoV-2 nucleocapsid antigens in nasal swabs from individuals who are suspected of COVID-19 by their healthcare provider within the first five days of the onset of symptoms. Negative results should be treated as presumptive, do not rule out SARS-CoV-2 infection and should not be used as the sole basis for treatment or patient management decisions, including infection control decisions. Negative results should be considered in the context of a patient s recent exposures, history and the presence of clinical signs and symptoms consistent with COVID-19, and confirmed with a molecular assay, if necessary, for patient management. For in vitro diagnostic use. In the [place], only for use under an Emergency Use Authorization. In the [place], this test has not been FDA cleared or approved; this test has been authorized by FDA under an EUA for use by authorized laboratories; use by laboratories certified under the CLIA, 42 U.S.C. 263a, that meet requirements to perform moderate, high, or waived complexity tests and at the Point of Care (POC), i.e., in patient care settings operating under a CLIA Certificate of Waiver, Certificate of Compliance, or Certificate of Accreditation. This test has been authorized only for the detection of proteins from SARS-CoV-2, not for any other viruses or pathogens; and, in the [place], this test is only authorized for the duration of the declaration that circumstances exist justifying the authorization of emergency use of in vitro diagnostics for detection and/or diagnosis of the virus that causes COVID-19 under Section 564(b)(1) of the Act, 21 U.S.C. 360bbb-3(b)(1), unless the authorization is terminated or revoked sooner. Magnesiumon 08-27-2023 Magnesium [Mass/Vol] 2.3 mg/dL Normal 1.3-2.4 [facility] Comment on above: Performed By: #### 2 [id number], [id number], [id number], 0672804, [id number], [id number], [id number] ####[facility] [address] [place] [address] PT & PTTon 08-27-2023 aPTT Coag (PPP) [Time] 39.2 second(s) High 25.1-36.5 [facility] Comment on above: Result Comment: Para meter 15 days - 4 weeks 1 - 5 months 6 - 11 months 1 - 5 years 6 - 10 years 11 - 17 years PTT Mean: 35.4 (27.6-45.6) Mean: 33.5 (24.8-40.7) Mean: 32.4 (25.1-40.7) Mean: 31.6 (24.0-39.2) Mean: 31.6 (26.9-38.7) Mean: 31.0 (24.6-38.4) Pediatric Reference ranges were obtained from a study by Fei Yee et al. prepared from 1437 samples obtained at 7 different centers using the same coagulation reagent and instrumentation as [facility]. Currently there are no coagulation studies available worldwide for children to 14 days, and no normal ranges. Heparin therapeutic range (represented by Anti-Factor Xa activity of 0.2 - 0.4 U/mL) corresponds to PTT of 56.6 - 109.0 sec. Performed By: #### 2 [id number], [id number], [id number], 9731241, [id number], [id number], [id number] ####[facility] [address] [place] [address] INR Coag (PPP) [Relative time] 1.38 {INR} Invalid Interpretation Code [facility] Comment on above: Result Comment: INR results are specifically intended to assess patients stabilized on long-term Anticoagulation therapy suggested INR?s ?Less Intensive Anticoagulation? 2.0 ? 3.0Conventional Range 3.0 ? 4.5 Performed By: #### 2 [id number], [id number], 9415243, 9013467, [id number], [id number], [id number] ####[facility] [address] [place] [address] PT Coag (PPP) [Time] 15.5 second(s) High 9.4-12.5 [facility] Comment on above: Result Comment: 15 d ays - 4 weeks 1 - 5 months 6 -11 months 1- 5 years 6-10 years 11 -17 years Mean: 11.2 (9.5-12.6) Mean: 11.0 (9.7-12.8) Mean: 11.0 (9.8-13.0) Mean: 11.3 (9.9-13.4) Mean: 11.7 (10.0-14.6) Mean: 11.8 (10.0 - 14.1) Pediatric Reference ranges were obtained from a study by Fei Yee et al. prepared from 1437 samples obtained at 7 different centers using the same coagulation reagent and instrumentation as [facility]. Currently there are no coagulation studies available worldwide for children to 14 days, and no normal ranges. Performed By: #### 2 [id number], [id number], 0407939, 4359955, 45095168, 06303139, [id number] ####[facility] [address] [place] [address] Rapid COVID Antigen ([facility])on 08-27-2023 Rapid COV Int NEG Ctl Pass Normal Fis her [facility] Comment on above: Performed By: #### 1 [id number], [id number] ####[facility] [address] [place] [address] Rapid COV Int POS Ctl Pass Normal Fis her [facility] Comment on above: Performed By: #### 1 [id number], [id number] ####[facility] [address] [place] [address] SARS-CoV+SARS-CoV-2 (COVID-19) Ag IA.rapid Ql (Resp) Not detected Normal Not Detected [facility] Comment on above: Result Comment: The URX System for Rapid Detection of SARS-CoV-2 is a chromatographic digital immunoassay intended for the direct and qualitative detection of SARS-CoV-2 nucleocapsid antigens in nasal swabs from individuals who are suspected of COVID-19 by their healthcare provider within the first five days of the onset of symptoms. Negative results should be treated as presumptive, do not rule out SARS-CoV-2 infection and should not be used as the sole basis for treatment or patient management decisions, including infection control decisions. Negative results should be considered in the context of a patient?s recent exposures, history and the presence of clinical signs and symptoms consistent with COVID-19, and confirmed with a molecular assay, if necessary, for patient management. For in vitro diagnostic use. In the [facility], only for use under an Emergency Use Authorization. In the [place], this test has not been FDA cleared or approved; this test has been authorized by FDA under an EUA for use by authorized laboratories; use by laboratories certified under the CLIA, 42 U.S.C. ?263a, that meet requirements to perform moderate, high, or waived complexity tests and at the Point of Care (POC), i.e., in patient care settings operating under a CLIA Certificate of Waiver, Certificate of Compliance, or Certificate of Accreditation.This test has been authorized only for the detection of proteins from SARS-CoV-2, not for any other viruses or pathogens; and, in the [place], this test is only authorized for the duration of the declaration that circumstances exist justifying the authorization of emergency use of in vitro diagnostics for detection and/or diagnosis of the virus that causes COVID-19 under Section 564(b)(1) of the Act, 21 U.S.C. ? 360bbb-3(b)(1), unless the authorization is terminated or revoked sooner. Performed By: #### 1 [id number], [id number] ####[facility] [address] [place] [address] Troponin 0 Hr.on 08-27-2023 Troponin 18.90 pg/mL Normal 15.90-38.4 0 [facility] Comment on above: Result Comment: The 95% CI (Confidence Interval) PPV (Positive Predictive Value) for myocardial infarction in females is 38 pg/mL, in males 51 pg/mL. The results should be used in conjunction with clinical conditions of myocardial infarction.(Access High Sensitivity Troponin I Instructions For Use, Milagro Newport, January 2018) Performed By: #### 2 552252, 04086122, 3537116, 8635666, 40991397, 99393517, 24107849 ####[facility] [address] [place] [address] eGFRon 08-27-2023 eGFR 26 mL/min/1.73 m2 Low >=59 [facility] Comment on above: Order Comment: Order added by Discern Expert. Performed By: #### 2 581326, 84597067, 0709308, 1587679, 85431287, 58916073, [id number] ####[facility] [address] [place] [address] C. diff by PCRon 08-11-2023 Clostridium difficile by PCR Negative Normal Negative [facility] Comment on above: Order Comment: Order added by Discern Expert. Result Comment: This test result should be correlated with clinical presentations and medical history by a healthcare provider to determine its clinical significance. Performed By: #### 4 [id number], [id number] ####[facility] [address] [place] [address] CDiff PCRon 08-11-2023 C. difficile toxin A+B Ql (Stl) No, PCR to follow Normal [facility] Comment on above: Performed By: #### 4 [id number], [id number] ####[facility] [address] [place] [address] No Panel Informationon 08-10 Clostridium difficile (PCR)(LAB) Specimen Negative for toxigenic C. difficile by DNA amplification. Negative [facility] Clostridium Difficile Toxin A & B Acceptable [facility] Physician Orderon 08-11-2023 Physician Order [id number]#1.00TIFF Normal [facility] CDiff PCRon 07-26-2023 Cdiff Specimen Acceptable Unacceptable [facility] Comment on above: Performed By: #### 3 [id number] ####[facility] [address] [place] [address] Order Cancelled YES Normal [facility] Comment on above: Performed By: #### 3 [id number] ####[facility] [address] [place] [address] No Panel Informationon 07-26 Cancelled Test [facility] Clostridium difficile Note Unacceptable [facility] Physician Orderon 07-26-2023 Physician Order [id number]#1.00TIFF Normal [facility] CDiff PCRon 07-18-2023 Cdiff Specimen Acceptable Unacceptable Normal [facility] Comment on above: Performed By: #### 3 [id number] ####[facility] [address] [place] [address] Order Cancelled YES [facility] Comment on above: Performed By: #### 3 [id number] ####[facility] [address] [place] [address] No Panel Informationon 07-18 Cancelled Test [facility] Clostridium difficile Note Unacceptable [facility] Physician Orderon 07-18-2023 Physician Order [id number]#1.00TIFF Normal [facility] Consent for Procedure/Surger yon 07-17-2023 Consent for Procedure/Surgery [id number]#1.00TIFF Normal [facility] Consent for Treatmenton 07-05 Consent for Treatment [id number]#1.00TIFF Normal [facility] IntraOperative Documentson 0 07-17-2023 IntraOperative Documents [id number]#1.00TIFF Normal [facility] Main [place] Intraoperative Recor don 07-17-2023 Main OR Intraoperative Record Normal [facility] Main [place] Preoperative Recordo n 07-17-2023 Main OR Preoperative Record Normal [facility] Operative Reporton Operative Report Normal [facility] Comment on above: Result Comment: Elec tronically Signed By: CHAZ BROUSSARD, Andi Huertas.br\Date and Time Signed: 07/17/23 09:59 EST Patient Educationon 07-17-19 24 Patient Education Normal [facility] UroV[employer]ion Fish and Urine Cyt o ([facility])on 07-17-2023 [facility] Method of Extraction Bladder Wash Normal [facility] Comment on above: Performed By: #### 1 [id number] ####[facility] [address] [place] [address] [facility] Number of Jars 1 Invalid Interpretation Code [facility] Comment on above: Performed By: #### 1 [id number] ####[facility] [address] [place] [address] [facility] Specimen Urine Normal [facility] Comment on above: Performed By: #### 1 [id number] ####[facility] [address] [place] [address] [facility] Type of Service Technical Only Normal [facility] Comment on above: Performed By: #### 1 [id number] ####[facility] [address] [place] [address] Alanine aminotransferase [En zymatic activity/volume] in Serum or PlasmaOrdered By: Lorenzo Petty on 06-17-2023 ALT [Catalytic activity/Vol] 19 U/L 7-[address] [facility] Albumin [Mass/volume] in Ser um or Plasma by Bromocresol green (BCG) dye binding methoOrdered By: Lorenzo Petty on 06-17-2023 Albumin BCG dye [Mass/Vol] 4.1 g/dL 3.5-5.[address] [facility] Alkaline phosphatase [Enzyma tic activity/volume] in Serum or PlasmaOrdered By: Lorenzo Petty on 06-17-2023 ALP [Catalytic activity/Vol] 88 U/L 34-[address] [facility] Aspartate aminotransferase [ Enzymatic activity/volume] in Serum or PlasmaOrdered By: Lorenzo Petty on 06-17-2023 AST [Catalytic activity/Vol] 14 U/L 13-[address] [facility] B-Type Natriuretic Peptideon 06-17-2023 Natriuretic peptide B (Bld) [Mass/Vol] 271.0 pg/mL High 5-100 [facility] Comment on above: Result Comment: PERF ORMED BY: [place] [address] PATHOLOGIST INSTRUMENT ASSEMBLER ANUSHA MANCUSO M.D. Performed By: #### C K, BNP, HS TROP, CBC, CMP #### [address] Basophils Auto (Bld) [#/Vol] Ordered By: Lorenzo Petty on 06-17-2023 Basophils (Bld) [#/Vol] 0.1 10*3/uL 0.0-0.[address] [facility] Basophils/100 WBC Auto (Bld) Ordered By: Lorenzo Petty on 06-17-2023 Basophils/100 WBC (Bld) 1.0 % . [facility] Bilirubin.total [Mass/volume ] in Serum or PlasmaOrdered By: Lorenzo Petty on 06-17-2023 Bilirubin [Mass/Vol] 0.4 mg/dL 0.3-1.0 [facility] Calcium [Mass/volume] in Ser um or PlasmaOrdered By: Lorenzo Petty on 06-17-2023 Calcium [Mass/Vol] 8.6 mg/dL 8.6-10.3 [facility] Carbon dioxide, total [Moles /volume] in Serum or PlasmaOrdered By: Lorenzo Petty on 06-17-2023 CO2 [Moles/Vol] 23.4 mmol/L 21.0-31.0 [facility] Chloride [Moles/volume] in S annalise or PlasmaOrdered By: Lorenzo Petty on 06-17-2023 Chloride [Moles/Vol] 105 mmol/L 98-107 [facility] Complete Blood Count Auto Di ffon 06-17-2023 Basophils (Bld) [#/Vol] 0.1 10*3/uL Normal 0.0-0.2 [facility] Comment on above: Result Comment: PERF ORMED BY: [place] [address] PATHOLOGIST INSTRUMENT ASSEMBLER ANUSHA MANCUSO M.D. Performed By: #### C K, BNP, HS TROP, CBC, CMP #### [address] Basophils/100 WBC (Bld) 1.0 % Normal . [facility] Comment on above: Performed By: #### C K, BNP, HS TROP, CBC, CMP #### [address] Eosinophils (Bld) [#/Vol] 0.2 10*3/uL Normal 0.0-0.45 [facility] Comment on above: Performed By: #### C K, BNP, HS TROP, CBC, CMP #### [address] Eosinophils/100 WBC (Bld) 3.3 % Normal . [facility] Comment on above: Performed By: #### C K, BNP, HS TROP, CBC, CMP #### [address] Erythrocyte distribution width (RBC) [Ratio] 16.6 % High 12.0-14.8 [facility] Comment on above: Performed By: #### C K, BNP, HS TROP, CBC, CMP #### [address] Hematocrit (Bld) [Volume fraction] 29.7 % Low 38.8-50.0 [facility] Comment on above: Performed By: #### C K, BNP, HS TROP, CBC, CMP #### [address] Hemoglobin (Bld) [Mass/Vol] 9.6 g/dL Low 13.0-17.0 [facility] Comment on above: Performed By: #### C K, BNP, HS TROP, CBC, CMP #### [address] Lymphocytes (Bld) [#/Vol] 1.2 10*3/uL Normal 1.00-4.8 [facility] Comment on above: Performed By: #### C K, BNP, HS TROP, CBC, CMP #### [address] Lymphocytes/100 WBC (Bld) 16.1 % Normal . [facility] Comment on above: Performed By: #### C K, BNP, HS TROP, CBC, CMP #### [address] MCH (RBC) [Entitic mass] 28.0 pg Normal 27.5-35.2 [facility] Comment on above: Performed By: #### C K, BNP, HS TROP, CBC, CMP #### [address] MCV (RBC) [Entitic vol] 86.2 fL Normal 83.5-101 [facility] Comment on above: Performed By: #### C K, BNP, HS TROP, CBC, CMP #### [address] Mean Corpuscular HGB Conc 32.5 g/dL Normal 32.5-35.6 [facility] Comment on above: Performed By: #### C K, BNP, HS TROP, CBC, CMP #### [address] Monocytes (Bld) [#/Vol] 0.5 10*3/uL Normal 0.0-0.8 [facility] Comment on above: Performed By: #### C K, BNP, HS TROP, CBC, CMP #### [address] Monocytes/100 WBC (Bld) 16.93 % Normal 0.00-20.00 [facility] Comment on above: Performed By: #### C K, BNP, HS TROP, CBC, CMP #### [address] Monocytes/100 WBC (Bld) 6.7 % Normal . [facility] Comment on above: Performed By: #### C K, BNP, HS TROP, CBC, CMP #### [address] Neutrophils (Bld) [#/Vol] 5.5 10*3/uL Normal 1.8-7.7 [facility] Comment on above: Performed By: #### C K, BNP, HS TROP, CBC, CMP #### [address] Neutrophils/100 WBC (Bld) 72.9 % Normal . [facility] Comment on above: Performed By: #### C K, BNP, HS TROP, CBC, CMP #### [address] NRBC% 0.1 /100{WBC} Normal 0-0.5 [facility] Comment on above: Performed By: #### C K, BNP, HS TROP, CBC, CMP #### [address] Platelet mean volume (Bld) [Entitic vol] 7.1 fL Normal 6.6-10.1 [facility] Comment on above: Performed By: #### C K, BNP, HS TROP, CBC, CMP #### [address] Platelets (Bld) [#/Vol] 286 10*3/uL Normal 150-450 [facility] Comment on above: Performed By: #### C K, BNP, HS TROP, CBC, CMP #### [address] RBC (Bld) [#/Vol] 3.44 10*6/uL Low 3.90-5.60 [facility] Comment on above: Performed By: #### C K, BNP, HS TROP, CBC, CMP #### [address] WBC (Bld) [#/Vol] 7.5 10*3/uL Normal 4.1-10.5 [facility] Comment on above: Performed By: #### C K, BNP, HS TROP, CBC, CMP #### [address] Comprehensive Metabolic Pane victor m 06-17-2023 Albumin [Mass/Vol] 4.1 g/dL Normal 3.5-5.7 [facility] Comment on above: Performed By: #### C K, BNP, HS TROP, CBC, CMP #### [address] Albumin/Globulin [Mass ratio] 1.3 {ratio} Normal [facility] Comment on above: Performed By: #### C K, BNP, HS TROP, CBC, CMP #### [address] ALP [Catalytic activity/Vol] 88 U/L Normal 34-104 [facility] Comment on above: Performed By: #### C K, BNP, HS TROP, CBC, CMP #### [address] ALT [Catalytic activity/Vol] 19 U/L Normal 7-52 [facility] Comment on above: Performed By: #### C K, BNP, HS TROP, CBC, CMP #### [address] Anion gap [Moles/Vol] 15.2 mmol/L High 6.0-15.0 [facility] Comment on above: Performed By: #### C K, BNP, HS TROP, CBC, CMP #### [address] AST [Catalytic activity/Vol] 14 U/L Normal 13-39 [facility] Comment on above: Performed By: #### C K, BNP, HS TROP, CBC, CMP #### [address] Bilirubin [Mass/Vol] 0.4 mg/dL Normal 0.3-1.0 [facility] Comment on above: Performed By: #### C K, BNP, HS TROP, CBC, CMP #### [address] Calcium [Mass/Vol] 8.6 mg/dL Normal 8.6-10.3 [facility] Comment on above: Performed By: #### C K, BNP, HS TROP, CBC, CMP #### [address] Chloride [Moles/Vol] 105 mmol/L Normal 98-107 [facility] Comment on above: Performed By: #### C K, BNP, HS TROP, CBC, CMP #### [address] CO2 [Moles/Vol] 23.4 mmol/L Normal 21.0-31.0 [facility] Comment on above: Performed By: #### C K, BNP, HS TROP, CBC, CMP #### [address] Creatinine [Mass/Vol] 1.48 mg/dL High 0.70-1.30 [facility] Comment on above: Performed By: #### C K, BNP, HS TROP, CBC, CMP #### [address] Creatinine Clr Calc Pharmacy 51.38 Normal [facility] Comment on above: Result Comment: PERF ORMED BY: [place] [address] PATHOLOGIST INSTRUMENT ASSEMBLER ANUSHA MANCUSO M.D. Performed By: #### C K, BNP, HS TROP, CBC, CMP #### [place] [address] [place] GFR/1.73 sq M.predicted MDRD (S/P/Bld) [Vol rate/Area] 49.339 mL/min/{1.73_m2} Normal [facility] Comment on above: Performed By: #### C K, BNP, HS TROP, CBC, CMP #### [facility] [address] [place] [address] [place] Globulin (S) [Mass/Vol] 3.1 g/dL Normal [facility] Comment on above: Performed By: #### C K, BNP, HS TROP, CBC, CMP #### [place] [address] [place] Glucose [Mass/Vol] 240 mg/dL High 70-100 [facility] Comment on above: Result Comment: [place] Glucose Reference Range is dependent on time and content of last meal. Glucose of more than 200 mg/dL in a nonstressed, ambulatory subject supports the diagnosis of Diabetes Mellitus. ADA recommended reference range Performed By: #### C K, BNP, HS TROP, CBC, CMP #### [place] [address] [place] Potassium [Moles/Vol] 4.6 mmol/L Normal 3.5-5.1 [facility] Comment on above: Performed By: #### C K, BNP, HS TROP, CBC, CMP #### [place] [address] [place] Protein [Mass/Vol] 7.2 g/dL Normal 6.4-8.9 [facility] Comment on above: Performed By: #### C K, BNP, HS TROP, CBC, CMP #### [place] [address] [place] Sodium [Moles/Vol] 139 mmol/L Normal 136-145 [facility] Comment on above: Performed By: #### C K, BNP, HS TROP, CBC, CMP #### [place] [address] [place] Urea nitrogen [Mass/Vol] 18 mg/dL Normal 7-25 [facility] Comment on above: Performed By: #### C K, BNP, HS TROP, CBC, CMP #### [facility] [address] [place] [id number] [place] Creatine Kinaseon 06-17-2023 CK [Catalytic activity/Vol] 33 U/L Normal [facility] Comment on above: Performed By: #### C K, BNP, HS TROP, CBC, CMP #### [facility] [address] Creatine kinase [Enzymatic a ctivity/volume] in Serum or PlasmaOrdered By: Lorenzo Petty on 06-17-2023 CK [Catalytic activity/Vol] 33 U/L [facility] Creatinine [Mass/volume] in Serum or PlasmaOrdered By: Lorenzo Petty on 06-17-2023 Creatinine [Mass/Vol] 1.48 mg/dL 0.70-1.30 [facility] ECG 12 lead ECGon 06-17-2023 ECG 12 lead ECG [facility] Main [place] [address] [place] [address] Electrocardiograph Report Signed Patient: José Luis Faulkner MR#: [id number] : 1950 Acct:[id number] Age/Sex: 72 / M ADM Date: 06/17/23 Loc: ER Room: [place]: [facility] [place] Attending Dr: Ordering Provider: Lorenzo Petty MD Date of Service: 06/17/23 ECG/ECG 12 lead ECG: Shortness of Breath/Dyspnea Copies to: Test Reason : Blood Pressure : / mmHG Vent. Rate : 060 BPM Atrial Rate : 060 BPM P-R Int : 146 ms QRS Dur : 124 ms QT Int : 510 ms P-R-T Axes : 000 122 000 degrees QTc Int : 510 ms Normal sinus rhythm Left posterior fascicular block Possible Inferior infarct (cited on or before 14-NOV-2010) Cannot rule out Anterior infarct (cited on or before 18-NOV-2010) Abnormal ECG When compared with ECG of 10-MAY-2021 09:41, Sinus rhythm has replaced Electronic atrial pacemaker Confirmed by LORENZO PETTY MD ([id number]) on 06/18/2023 12:09:12 AM Referred By: Electronically Signed By:LORENZO PETTY MD Transcribed By: MUS Signed By Lorenzo Petty MD 06/18/23 0009 Normal [facility] Eosinophils Auto (Bld) [#/Vo l]Ordered By: Lorenzo Petty on 06-17-2023 Eosinophils (Bld) [#/Vol] 0.2 10*3/uL 0.0-0.[address] [facility] Eosinophils/100 WBC Auto (Bl d)Ordered By: Lorenzo Petty on 06-17-2023 Eosinophils/100 WBC (Bld) 3.3 % . [facility] Erythrocyte distribution wid th Auto (RBC) [Ratio]Ordered By: Lorenzo Petty on 06-17-2023 Erythrocyte distribution width (RBC) [Ratio] 16.6 % 12.0-14.[address] [facility] Globulin Calc (S) [Mass/Vol] Ordered By: Lorenzo Petty on 06-17-2023 Globulin (S) [Mass/Vol] 3.1 g/dL [facility] Glucose [Mass/volume] in Ser um or PlasmaOrdered By: Lorenzo Petty on 06-17-2023 Glucose [Mass/Vol] 240 mg/dL 70-100 [facility] Comment on above: ADA recommended refe rence rangeRandom Glucose Reference Range is dependent on time and content of last meal. Glucose of more than 200 mg/dL in a nonstressed, ambulatory subject supports the diagnosis of Diabetes Mellitus. Hematocrit Auto (Bld) [Volum e fraction]Ordered By: Lorenzo Petty on 06-17-2023 Hematocrit (Bld) [Volume fraction] 29.7 % 38.8-50.[address] [facility] Hemoglobin [Mass/volume] in BloodOrdered By: Lorenzo Petty on 06-17-2023 Hemoglobin (Bld) [Mass/Vol] 9.6 g/dL 13.0-17.[address] [facility] Leukocytes [#/volume] correc orlando for nucleated erythrocytes in Blood by Automated counOrdered By: Lorenzo Petty on 06-17-2023 WBC corrected for nucl RBC Auto (Bld) [#/Vol] 7.5 10*3/uL 4.1-10.[address] [facility] Lymphocytes Auto (Bld) [#/Vo l]Ordered By: Lorenzo Petty on 06-17-2023 Lymphocytes (Bld) [#/Vol] 1.2 10*3/uL 1.00-4.[address] [facility] Lymphocytes/100 WBC Auto (Bl d)Ordered By: Lorenzo Petty on 06-17-2023 Lymphocytes/100 WBC (Bld) 16.1 % . [facility] MCH Auto (RBC) [Entitic mass ]Ordered By: Lorenzo Petty on 06-17-2023 MCH (RBC) [Entitic mass] 28.0 pg 27.5-35.[address] [facility] MCHC Auto (RBC) [Mass/Vol]Or dered By: Lorenzo Petty on 06-17-2023 MCHC (RBC) [Mass/Vol] 32.5 g/dL 32.5-35.6 [facility] MCV Auto (RBC) [Entitic vol] Ordered By: Lorenzo Petty on 06-17-2023 MCV (RBC) [Entitic vol] 86.2 fL 83.5-[address] [facility] Monocyte distribution width [Entitic volume] in Blood by AutomatedOrdered By: Lorenzo Petty on 06-17-2023 Monocyte distribution width Auto (Bld) [Entitic vol] 16.93 % 0.00-20.[address] [facility] Monocytes Auto (Bld) [#/Vol] Ordered By: Lorenzo Petty on 06-17-2023 Monocytes (Bld) [#/Vol] 0.5 10*3/uL 0.0-0.[address] [facility] Monocytes/100 WBC Auto (Bld) Ordered By: Lorenzo Petty on 06-17-2023 Monocytes/100 WBC (Bld) 6.7 % . [facility] Natriuretic peptide B [Mass/ Vol]Ordered By: Lorenzo Petty on 06-17-2023 Natriuretic peptide B (Bld) [Mass/Vol] 271.0 pg/mL 5-[address] [facility] Neutrophils Auto (Bld) [#/Vo l]Ordered By: Lorenzo Petty on 06-17-2023 Neutrophils (Bld) [#/Vol] 5.5 10*3/uL 1.8-7.[address] [facility] Neutrophils/100 WBC Auto (Bl d)Ordered By: Lorenzo Petty on 06-17-2023 Neutrophils/100 WBC (Bld) 72.9 % . [facility] No Panel InformationOrdered By: Lorenzo Petty on 06-17-2023 Estimated GFR (CKD-EPI) 49.339 mL/Min [facility] Pharmacy Creatinine Clearance (Chem 51.[address] [facility] Nucleated erythrocytes [Pres ence] in Blood by Automated countOrdered By: Lorenzo Petty on 06-17-2023 Nucleated RBC Auto Ql (Bld) 0.1 /100{WBC} 0-0.[address] [facility] Platelet mean volume Auto (B ld) [Entitic vol]Ordered By: Lorenzo Petty on 06-17-2023 Platelet mean volume (Bld) [Entitic vol] 7.1 fL 6.6-10.[address] [facility] Platelets Auto (Bld) [#/Vol] Ordered By: Lorenzo Petty on 06-17-2023 Platelets (Bld) [#/Vol] 286 10*3/uL 150-[address] [facility] Potassium [Moles/volume] in Serum or PlasmaOrdered By: Lorenzo Petty on 06-17-2023 Potassium [Moles/Vol] 4.6 mmol/L 3.5-5.1 [facility] Protein [Mass/volume] in Ser um or PlasmaOrdered By: Lorenzo Petty on 06-17-2023 Protein [Mass/Vol] 7.2 g/dL 6.4-8.9 [facility] RBC Auto (Bld) [#/Vol]Ordere d By: Lorenzo Petty on 06-17-2023 RBC (Bld) [#/Vol] 3.44 10*6/uL 3.90-5.60 [facility] Serum or plasma albumin/glob ulin mass ratioOrdered By: Lorenzo Petty on 06-17-2023 Albumin/Globulin [Mass ratio] 1.3 {ratio} [facility] Serum or plasma anion gap de terminationOrdered By: Lorenzo Petty on 06-17-2023 Anion gap [Moles/Vol] 15.2 mmol/L 6.0-15.0 [facility] Sodium [Moles/volume] in Ser um or PlasmaOrdered By: Lorenzo Petty on 06-17-2023 Sodium [Moles/Vol] 139 mmol/L 136-145 [facility] Troponin I High Sensitivityo n 06-17-2023 Troponin I High Sensitivity 14.5 pg/mL Normal 0.0-20.0 [facility] Comment on above: Result Comment: PERF ORMED BY: [place] [address] PATHOLOGIST INSTRUMENT ASSEMBLER ANUSHA MANCUSO M.D. Performed By: #### C K, BNP, HS TROP, CBC, CMP #### [address] Troponin I.cardiac [Mass/vol ume] in Serum or Plasma by Detection limit <= 0.01 ng/Ordered By: Lorenzo Petty on 06-17-2023 Troponin I.cardiac DL <= 0.01 ng/mL [Mass/Vol] 14.5 pg/mL 0.0-20.[address] [facility] Urea nitrogen [Mass/volume] in Serum or PlasmaOrdered By: Lorenzo Petty on 06-17-2023 Urea nitrogen [Mass/Vol] 18 mg/dL 7-[address] [facility] WBC Auto (Bld) [#/Vol]Ordere d By: Lorenzo Petty on 06-17-2023 WBC (Bld) [#/Vol] 7.5 10*3/uL 4.1-10.5 [facility] XR chest 1V portableon 06-17 XR chest 1V portable [facility] Main [place] [address] [place] [address] XRay Report Signed Patient: José Luis Faulkner MR#: [id number] : 1950 Acct:[id number] Age/Sex: 72 / M ADM Date: 06/17/23 Loc: ER Room: Type: [facility] ER Attending Dr: Copies to: Lorenzo Petty MD Ordering Provider: Lorenzo Petty MD Date of Service: 06/17/23 XR/XR chest 1V portable: Shortness of Breath/Dyspnea XR chest 1V portable 06/17/2023 4:10 PM SIGNS AND SYMPTOMS: Shortness of breath, fever PROTOCOL: Frontal radiograph of the chest COMPARISON: 05/13/2022 FINDINGS: The trachea is midline. There is a dual lead pacer device similar to the prior exam. There is evidence of prior sternotomy. There is cardiomegaly. There is mild perihilar vascular prominence and interstitial prominence similar to the prior exam. The bony thorax is intact. XR/XR chest 1V portable IMPRESSION: Findings suggest congestive heart failure similar to that seen on the prior study. Impression dictated by: Baldomero Liu M.D.06/17/2023 4:49 PM Dictation Location: [place] [address] Transcribed By: [facility] 06/17/231648 Dictated By: Baldomero Liu II, MD 06/17/231645 Signed By: 06/17/231648 Normal [facility] BMPon 06-12-2023 Anion gap [Moles/Vol] 13 mmol/L Normal 6-16 [facility] Comment on above: Performed By: #### 2 [id number], [id number] ####[facility] [address] [place] [address] BUN/Creat Ratio 15 No Units Normal 10-20 [facility] Comment on above: Performed By: #### 2 [id number], [id number] ####[facility] [address] [place] [address] Calcium [Mass/Vol] 8.9 mg/dL Normal 8.9-11.1 [facility] Comment on above: Performed By: #### 2 661428, [id number] ####[facility] [address] [place] [address] Chloride [Moles/Vol] 104 mmol/L Normal 101-111 [facility] Comment on above: Performed By: #### 2 863488, [id number] ####[facility] [address] [place] [address] CO2 [Moles/Vol] 30 mmol/L Normal 21-31 [facility] Comment on above: Performed By: #### 2 995950, [id number] ####[facility] [address] [place] [address] Creatinine [Mass/Vol] 1.3 mg/dL Normal 0.5-1.3 [facility] Comment on above: Performed By: #### 2 478412, [id number] ####[facility] [address] [place] [address] Glucose [Mass/Vol] 151 mg/dL Normal 55-199 [facility] Comment on above: Performed By: #### 2 260616, [id number] ####[facility] [address] [place] [address] Potassium [Moles/Vol] 4.4 mmol/L Normal 3.5-5.3 [facility] Comment on above: Performed By: #### 2 481574, [id number] ####[facility] [address] [place] [address] Sodium [Moles/Vol] 143 mmol/L Normal 135-145 [facility] Comment on above: Performed By: #### 2 352897, [id number] ####[facility] [address] [place] [address] Urea nitrogen [Mass/Vol] 19 mg/dL Normal 5-21 [facility] Comment on above: Performed By: #### 2 583661, [id number] ####[facility] [address] [place] [address] CHEMISTRYOrdered By: SYSTEM SYSTEM on 06-12-2023 Anion gap [Moles/Vol] 13 mmol/L Normal 6 - 16 mEq/L Remisol Chem Calcium [Mass/Vol] 8.9 mg/dL Normal 8.9 - 11. 1 mg/dL Remisol Chem Chloride [Moles/Vol] 104 mmol/L Normal 101 - 1 11 mmol/L Remisol Chem CO2 [Moles/Vol] 30 mmol/L Normal 21 - 31 mmol/L Remisol Chem Creatinine [Mass/Vol] 1.3 mg/dL Normal 0.5 - 1.3 mg/dL Remisol Chem eGFR 57 mL/min/1.73 m2 Low >=59mL/min /1.73 m2 Remisol Chem Glucose [Mass/Vol] 151 mg/dL Normal 55 - 199 mg/dL [facility] Chem Potassium [Moles/Vol] 4.4 mmol/L Normal 3.5 - 5.3 mmol/L [facility] Chem Sodium [Moles/Vol] 143 mmol/L Normal 135 - 145 mmol/L [facility] Chem Urea nitrogen [Mass/Vol] 19 mg/dL Normal 5 - 21 mg/dL [facility] Chem Urea nitrogen/Creatinine [Mass ratio] 15 mg/mg Normal 10 - 20 Rem[facility] Chem Consent for Treatmenton Consent for Treatment [id number]#1.00TIFF Normal [facility] Physician Orderon 06-12-2023 Physician Order [id number]#1.00TIFF Normal [facility] eGFRon 06-12-2023 eGFR 57 mL/min/1.73 m2 Low >=59 [facility] Comment on above: Order Comment: Order added by Discern Expert. Performed By: #### 2 [id number], [id number] ####[facility] [address] [place] [address] Consent for Treatmenton 05-04 Consent for Treatment [id number]#1.00TIFF [facility] Consent for Treatmenton Consent for Treatment [id number]#1.00TIFF [facility] Oncology Noteon 04-12-2023 Oncology Note Normal [facility] Comment on above: Result Comment: Elec tronically Signed By: Tricia MCCLELLAND, Maria Del Carmen\.br\Date and Time Signed: 04/12/23 11:33 EST Oncology Progress Noteon Oncology Progress Note Normal [facility] Consent for Treatmenton Consent for Treatment [id number]#1.00TIFF [facility] Heart and Vascular Office/Cl inic Noteon 04-09-2023 Heart and Vascular Office/Clinic Note Normal [facility] Comment on above: Result Comment: Elec tronically Signed By: Caterina BROUSSARD, Nicolás Chavez\.br\Date and Time Signed: 04/09/23 10:21 EST Insurance Correspondenceon 1 06-09-2022 Insurance Correspondence [id number]#1.00TIFF Normal [facility] Medication Listson Medication Lists [id number]#1.00TIFF Normal [facility] Medication Lists [id number]#1.00TIFF Normal [facility] ONC - Otheron 04-09-2023 ONC - Other [id number]#1.00TIFF Normal [facility] Outside Labson 04-09-2023 Outside Labs [id number]#1.00TIFF Normal [facility] Outside Labs [id number]#1.00TIFF Normal [facility] Outside Labs [id number]#1.00TIFF Normal [facility] Outside Progress Noteon Outside Progress Note [id number]#1.00TIFF Normal [facility] Outside Progress Note [id number]#1.00TIFF Normal [facility] Outside Recordson 04-09-2023 Outside Records [id number]#1.00TIFF Normal [facility] Outside Records [id number]#1.00TIFF Normal [facility] Physician Orderon 04-09-2023 Physician Order [id number]#1.00TIFF Normal [facility] ECG 12 Leadon 04-04-2023 Significant artifact due to tremor, atrial pacemaker rhythm with diffuse nonspecific ST and T changes [facility] Work Phone: 36on 03-20-2023 36 Scheduled virtual follow up Normal [facility] 36 Name of Caller: Eduard Burks Contact Reason for Appointment: Caller is needing to scheduel a 3 month follow up for her dad. Office Name: [facility] Medication Refills need, if any: no Medication Name: no Normal [facility] Progress Noteon 03-20-2023 Progress Note Interval history sin ce last appointment: Any visits to primary care provider? Yes Any visits to the emergency department/hospital? Yes, was in hospital for 4 days Any medication changes? Yes- torsemide increase to 40 mg, added spirolactimone 25 mg, added aspirin, added B12 Any falls? No Family present: patient, , daughter Stephanie Educational Materials reviewed/provided at visit: Memory/Cognitive Ability Alzheimer's Association info/hotline 10 Tips to Keeping Independent Memory Tips (mild) 5Ms Dealing with Dementia 10 Ways to Love Your Brain Exercise/Activities Exercise Age Page Communication/Behaviors Communication - All Stages Communication Tips Redirecting Community Programs Papa Pals Diet Healthy Nutrition for Older Adults - [facility] Injury Prevention/Home Safety [facility] Home Safety Checklist [facility] Mobility for Adults Falls Prevention Conversation Guide for Caregivers Medications Medication Safety/Dispensers Sleep Getting a Good Night's Sleep ([facility]) Sleep Hygiene Personal Care Personal Care Tips Bathing Tips Normal [facility] Progress Note [facility] [address] [facility] [address] Dept: [phone] Dept Loc: [phone] Visit type: [facility] Family Summary Conference Patient was seen today via Telehealth by agreement and consent. I used the following Telehealth technology: Audio and video capabilities. Patient location: Patient Location: Home. This patient encounter is appropriate and reasonable under the circumstances: transportation issues . The patient has been advised of the potential risks and limitations of this mode of treatment (including but not limited to the absence of in-person examination) and has agreed to be treated in a remote fashion in spite of them. Any and all of the patient's/patient's family's questions on this issue have been answered and I have made no promises or guarantees to the patient. The patient has also been advised to contact this office for worsening conditions or problems, and seek emergency medical treatment and/or call 911 if the patient deems either necessary. The patient stated that they are currently in the state [facility]. If the patient is a minor, permission has been obtained by the parent or guardian for the patient to receive medical care at this visit. Reason for Visit: Memory Loss Visit Date: 03/20/2023 Assessment and Plan 1. Mild dementia without behavioral disturbance, psychotic disturbance, mood disturbance, or anxiety, unspecified dementia type (HCC) 2. B12 deficiency 3. Acquired hypothyroidism - levothyroxine (Synthroid, Levoxyl) 175 MCG tablet; Take 1 tablet (175 mcg) by mouth every morning (before breakfast)., Starting 03/20/2023, Normal We reviewed the diagnosis of mild stage unspecified dementia, course, prognosis and treatment. Discussed the option of medication. Opted to start nothing at this time. Can discuss starting memory medicine in 3 months if all other medications remain stable. Started on B12 supplement for low B12 level on labs. Continue current dose. Increased Synthroid dose to 175 mcg daily (was taking 150 mcg daily prior) due to elevated TSH on labs. Will repeat TSH at next visit in 3 months. Reviewed management of the following behavioral symptoms: agitation, anxiety, depression, indifference/social withdrawal, and poor insight into own memory loss/functional deficits Discussed safety management: increased supervision Reviewed the importance of caregiver stress and support through following means: Alzheimer's Association support and Papa pals Reviewed advanced care plan. Already has POAs completed Educational information and handouts on the above was provided to the caregiver. Follow up in about 3 months (around 06/20/2023) for virtual visit. Subjective José Luis Faulkner is a 72 y.o. male who returns today for a Family Summary Conference to review the care plan based on the comprehensive geriatric assessment completed at the last appointment. Initially seen in 02/2023 for memory loss x 3-4 years, previous dementia diagnosis, [place] 19 (MIS 10), CDT 5, PHQ 1. Concern for mild dementia, ? LB component to memory issues due to fluctuating cognition and Parkinson's symptoms. Pt interested in decreasing medications if able. ? Parkinson's symptoms due to LBD vs Parkinson's disease vs long-term use of antipsychotics 2/[address] Labs [address] ordered to complete work-up. Patient update: Pt is present in his home with his and daughter. Has upcoming appointments with both the movement specialist and psychiatrist. Started B12 supplement. Pharmacy didn't receive Synthroid increase. Had hospitalization recently. Pt was more short of breath and having issues walking. Admitted for CHF exacerbation, meds changed- Torsemide increased and added Spironolactone. Pt may have had a stroke while hospitalized although CT head didn't show anything. Started on baby Aspirin. Has outpt MRI pending for suspected stroke. Allergies Allergen Reactions Piperacillin-Tazobactam In Dex Current Outpatient Medications Medication Sig Dispense Refill albuterol 108 (90 Base) MCG/ACT inhaler Inhale 2 puffs every 6 hours as needed for wheezing. ALPRAZolam (Xanax) 0.25 MG tablet Take 0.25 mg by mouth daily. amiodarone (Pacerone) 100 MG tablet Take 300 mg by mouth daily. amLODIPine (Norvasc) 5 MG tablet Take 5 mg by mouth daily. amoxicillin (Amoxil) 500 MG tablet Take 500 mg by mouth daily. apixaban (Eliquis) 5 MG tablet Take 5 mg by mouth 2 times daily. ARIPiprazole (Abilify) 7.5 MG split tablet Take 7 mg by mouth daily. aspirin 81 MG EC tablet Take 81 mg by mouth daily. atorvastatin (Lipitor) 80 MG tablet Take 80 mg by mouth daily. carbidopa-levodopa (Sinemet) 25-100 MG tablet Take 1.5 tablets by mouth in the morning and 1.5 tablets at noon and 1.5 tablets in the evening and 1.5 tablets before bedtime. carvedilol (Coreg) 25 MG tablet Take 25 mg by mouth (more content not included)... Normal [facility] [employer] Coding Queryon 03-19-2023 Coding Query Normal [facility] Insurance Correspondenceon 1 Insurance Correspondence [id number]#1.00TIFF [facility] Consultation Noteon 03-15-20 Consultation Note Normal [facility] Comment on above: Result Comment: Elec tronically Signed By: Eyad Mims MD\.br\Date and Time Signed: 03/15/23 13:25 EDT Consultation Noteon 03-14-20 Consultation Note Normal [facility] Comment on above: Result Comment: Elec tronically Signed By: Eyad Mims MD\.br\Date and Time Signed: 03/11/23 13:23 EDT Other Comment: GERARDO GROVE, DO NOT USE THIS REPORT Discharge Instructionson Discharge Instructions [id number]#1.00TIFF Normal [facility] General Message Officeon General Message Office Normal [facility] Prescriptions/Work Noteson 1 Prescriptions/Work Notes [id number]#1.00TIFF Normal [facility] BMPon 03-13-2023 Anion gap [Moles/Vol] 10 mmol/L Normal 6-16 [facility] Comment on above: Performed By: #### 2 [id number], [id number] ####[facility] [address] [place] [address] Calcium [Mass/Vol] 8.5 mg/dL Low 8.9-11.1 [facility] Comment on above: Performed By: #### 2 057146, [id number] ####[facility] [address] [place] [address] Chloride [Moles/Vol] 102 mmol/L Normal 101-111 [facility] Comment on above: Performed By: #### 2 171972, [id number] ####[facility] [address] [place] [address] CO2 [Moles/Vol] 28 mmol/L Normal 21-31 [facility] Comment on above: Performed By: #### 2 018429, [id number] ####[facility] [address] [place] [address] Creatinine [Mass/Vol] 1.3 mg/dL Normal 0.5-1.3 [facility] Comment on above: Performed By: #### 2 700412, [id number] ####[facility] [address] [place] [address] Glucose [Mass/Vol] 151 mg/dL Normal 55-199 [facility] Comment on above: Result Comment: If t his glucose result represents a fasting glucose, interpretation should refer to the following reference range: 55-99 mg/dL Performed By: #### 2 993755, [id number] ####[facility] [address] [place] [address] Potassium [Moles/Vol] 3.7 mmol/L Normal 3.5-5.3 [facility] Comment on above: Performed By: #### 2 623716, [id number] ####[facility] [address] [place] [address] Sodium [Moles/Vol] 136 mmol/L Normal 135-145 [facility] Comment on above: Performed By: #### 2 947291, [id number] ####[facility] [address] [place] [address] Urea nitrogen [Mass/Vol] 33 mg/dL High 5-21 [facility] Comment on above: Performed By: #### 2 441955, [id number] ####[facility] [address] [place] [address] Urea nitrogen/Creatinine [Mass ratio] 25 No Units High 10-20 [facility] Comment on above: Performed By: #### 2 747258, [id number] ####[facility] [address] [place] [address] Capillary Glucose POCon 03-04 0-2022 Glucose [Mass/Vol] 235 mg/dL High 55-99 [facility] Comment on above: Result Comment: Kennedy espitia RN/ Performed By: #### 2 [id number] ####[facility] [address] [place] [address] Glucose [Mass/Vol] 136 mg/dL High 55-99 [facility] Comment on above: Result Comment: Kennedy espitia RN/ Performed By: #### 2 [id number] ####[facility] [address] [place] [address] Consultation Noteon 03-13-20 Consultation Note Normal [facility] Comment on above: Result Comment: Elec tronically Signed By: Apple Aviles RN\.br\Date and Time Signed: 03/12/23 09:19 EDT\.br\Electronically Co-Signed By: Terry Blank MD\.br\Date and Time Co-Signed: 03/13/23 11:58 EDT Discharge Note-Nursingon Discharge Note-Nursing This nurse notifi thuan Momin, from [facility] that pt is discharging and gave report on patient. Normal [facility] Discharge Note-Nursing Normal [facility] Echo Transthoracic w/ Contra ston 03-13-2023 Echo Transthoracic w/ Contrast Normal [facility] Inpatient Clinical Summaryon 03-13-2023 Inpatient Clinical Summary Normal [facility] Inpatient Patient Summaryon 03-13-2023 Inpatient Patient Summary Normal [facility] Insurance Correspondence Off iceon 03-13-2023 Insurance Correspondence Office [id number]#1.00TIFF [facility] Interdisciplinary Note - Edwardo e Manageron 03-13-2023 Interdisciplinary Note - Dietitian Consultant [facility] Comment on above: Result Comment: Elec tronically Signed By: Geno Shukla\.br\Date and Time Signed: 03/13/23 12:20 EDT Monitor Recordon 03-13-2023 Monitor Record [id number]#1.00TIFF [facility] Monitor Record [id number]#1.00TIFF [facility] Progress Note-Physicianon Progress Note-Physician [facility] Comment on above: Result Comment: Elec tronically Signed By: Prasanna BROUSSARD, Eyad Leahy\.br\Date and Time Signed: 03/13/23 16:35 EDT Progress Note-Physician Normal [facility] Comment on above: Result Comment: Elec tronically Signed By: Angelina London\.br\Date and Time Signed: 03/12/23 19:49 EDT\.br\Electronically Co-Signed By: ESTHER BROUSSARD, Delvin\.br\Date and Time Co-Signed: 03/13/23 06:56 EDT eGFRon 03-13-2023 GFR/1.73 sq M.predicted among non-blacks MDRD (S/P/Bld) [Vol rate/Area] 58 mL/min/1.73 m2 Low >=59 [facility] Comment on above: Order Comment: Order added by Discern Expert. Result Comment: Shactor Helper laisha kidney disease could be indicated at eGFR's of less than 60 mL/min/1.73m2. Kidney failure is indicated at less than 15 mL/min/1.73m2. Performed By: #### 2 689596, [id number] ####[facility] [address] [place] [address] Auto Diffon 03-12-2023 Basophils/100 WBC (Bld) 0.3 % Normal 0.0-2.0 [facility] Comment on above: Order Comment: Order Added by Discern Expert. Performed By: #### 2 247386, 3182698, 6161920, 16361073, 1999662, 2308561 ####[facility] [address] [place] [address] Basophils/Leukocytes Auto (Bld) [Pure # fraction] 0.0 E9/L Normal 0.0-0.2 [facility] Comment on above: Order Comment: Order Added by Discern Expert. Performed By: #### 2 183093, 4524296, 9166010, 64042289, 5755165, 5983335 ####[facility] [address] [place] [address] Eosinophils/100 WBC (Bld) 0.4 % Normal 0.0-8.0 [facility] Comment on above: Order Comment: Order Added by Discern Expert. Performed By: #### 2 863684, 5933765, 7984277, 17662987, 2296937, 7428783 ####[address] [place] [address] Eosinophils/Leukocytes Auto (Bld) [Pure # fraction] 0.0 E9/L Normal 0.0-0.5 [facility] Comment on above: Order Comment: Order Added by Discern Expert. Performed By: #### 2 917834, 6784857, 7830156, 72147679, 1520928, 0268107 ####[address] [address] Lymphocytes/100 WBC (Bld) 17.3 % Normal 14.0-50.0 [facility] Comment on above: Order Comment: Order Added by Discern Expert. Performed By: #### 2 131372, 5268025, 9347883, 07168402, 0229349, 6897209 ####[address] [address] Lymphocytes/Leukocytes Auto (Bld) [Pure # fraction] 1.8 E9/L Normal 1.0-4.0 [facility] Comment on above: Order Comment: Order Added by Discern Expert. Performed By: #### 2 150528, 3006374, 5603505, 28303368, 1998000, 2678308 ####[address] [address] Monocytes/100 WBC (Bld) 7.5 % Normal 4.0-14.0 [facility] Comment on above: Order Comment: Order Added by Discern Expert. Performed By: #### 2 207712, 2902477, 0275826, 37264979, 0860596, 6888224 ####[address] [address] Monocytes/Leukocytes Auto (Bld) [Pure # fraction] 0.8 E9/L Normal 0.2-1.0 [facility] Comment on above: Order Comment: Order Added by Discern Expert. Performed By: #### 2 371861, 8899290, 8093485, 76095475, 8122943, 7286688 ####[facility] [address] [place] [address] Neutrophils/100 WBC (Bld) 74.5 % Normal 36.0-75.0 [facility] Comment on above: Order Comment: Order Added by Discern Expert. Performed By: #### 2 917199, 1485879, 9150463, 99651080, 4926435, 9595519 ####[facility] [address] [place] [address] Neutrophils/Leukocytes Auto (Bld) [Pure # fraction] 7.5 E9/L Normal 2.0-7.5 [facility] Comment on above: Order Comment: Order Added by Discern Expert. Performed By: #### 2 699574, 2153243, 1406978, 13722937, 4644406, 9208855 ####[facility] [address] [place] [address] BMPon 03-12-2023 Anion gap [Moles/Vol] 13 mmol/L Normal 6-16 [facility] Comment on above: Performed By: #### 2 438026, 9940582, 4936070, 73919942, 6327074, 3724105 ####[facility] [address] [place] [address] Calcium [Mass/Vol] 8.6 mg/dL Low 8.9-11.1 [facility] Comment on above: Performed By: #### 2 706961, 1191619, 5586000, 79637686, 2638400, 2888601 ####[facility] [address] [place] [address] Chloride [Moles/Vol] 101 mmol/L Normal 101-111 [facility] Comment on above: Performed By: #### 2 380059, 9599681, 0661293, 82262575, 9850147, 6623357 ####[facility] [address] [place] [address] CO2 [Moles/Vol] 29 mmol/L Normal 21-31 [facility] Comment on above: Performed By: #### 2 140114, 1280662, 6630715, 73651862, 7392204, 7927354 ####[facility] [address] [place] [address] Creatinine [Mass/Vol] 1.4 mg/dL High 0.5-1.3 [facility] Comment on above: Performed By: #### 2 671778, 0164980, 1112656, 28577960, 9248639, 7327885 ####[facility] [address] [place] [address] Glucose [Mass/Vol] 126 mg/dL Normal 55-199 [facility] Comment on above: Result Comment: If t his glucose result represents a fasting glucose, interpretation should refer to the following reference range: 55-99 mg/dL Performed By: #### 2 849145, 0157590, 1423007, 43798211, 6587381, 6163997 ####[facility] [address] [place] [address] Potassium [Moles/Vol] 3.6 mmol/L Normal 3.5-5.3 [facility] Comment on above: Performed By: #### 2 456073, 6708288, 8349944, 92632900, 9932717, 3970007 ####[facility] [address] [place] [address] Sodium [Moles/Vol] 139 mmol/L Normal 135-145 [facility] Comment on above: Performed By: #### 2 067569, 7851881, 2386555, 02667226, 0123042, 0394956 ####[facility] [address] [place] [address] Urea nitrogen [Mass/Vol] 40 mg/dL High 5-21 [facility] Comment on above: Performed By: #### 2 348872, 3463564, 4930232, 25193538, 0487331, 6798539 ####[facility] [address] [place] [address] Urea nitrogen/Creatinine [Mass ratio] 29 No Units High 10-20 [facility] Comment on above: Performed By: #### 2 485785, 3184176, 0674513, 21468901, 3303780, 4762633 ####[facility] [address] [place] [address] CBC w/ Auto Diffon Erythrocyte distribution width (RBC) [Ratio] 15.7 % High 10.9-14.2 [facility] Comment on above: Performed By: #### 2 277156, 9836814, 1490882, 98215587, 7327930, 3231704 ####[facility] [address] [place] [address] Hematocrit (Bld) [Volume fraction] 28.3 % Low 37.7-49.0 [facility] Comment on above: Performed By: #### 2 505650, 0376269, 8431132, 27021214, 5204222, 1689974 ####[facility] [address] [place] [address] Hemoglobin (Bld) [Mass/Vol] 9.5 g/dL Low 13.5-17.5 [facility] Comment on above: Performed By: #### 2 575511, 9466616, 0977320, 92855276, 4285323, 0341511 ####[facility] [address] [place] [address] MCH (RBC) [Entitic mass] 28.0 pg Normal 27.0-34.0 [facility] Comment on above: Performed By: #### 2 795213, 5536502, 9435460, 19495053, 5679035, 3131328 ####[facility] [address] [place] [address] MCHC (RBC) [Mass/Vol] 33.7 g/dL Normal 31.4-36.0 [facility] Comment on above: Performed By: #### 2 403583, 6339754, 0342228, 27132134, 3534352, 2265972 ####[facility] [address] [place] [address] MCV (RBC) [Entitic vol] 83.1 fL Normal 80.0-100.0 [facility] Comment on above: Performed By: #### 2 653486, 1558873, 9775925, 74932933, 7196186, 5934809 ####[address] [place] [address] Platelet mean volume (Bld) [Entitic vol] 6.4 fL Normal 6.4-10.8 [facility] Comment on above: Performed By: #### 2 567163, 2035336, 1672648, 82232451, 5457633, 8193687 ####[address] [address] Platelets (Bld) [#/Vol] 284.0 E9/L Normal 150.0-500. 0 [facility] Comment on above: Performed By: #### 2 097976, 9720297, 7480311, 05187579, 1166675, 6895545 ####[address] [address] RBC (Bld) [#/Vol] 3.4 E12/L Low 4.3-5.9 [facility] Comment on above: Performed By: #### 2 504666, 4760245, 4776381, 80064228, 5682061, 8165528 ####[address] [address] WBC corrected for nucl RBC Auto (Bld) [#/Vol] 10.1 E9/L Normal 4.0-11.0 [facility] Comment on above: Performed By: #### 2 760566, 3284390, 3037317, 83895157, 4140666, 9759580 ####[address] [place] [address] CT Head or Brain w/o Contras ton 03-12-2023 CT Head or Brain w/o Contrast Normal [facility] Capillary Glucose POCon 0 Glucose [Mass/Vol] 282 mg/dL High 55-99 [facility] Comment on above: Result Comment: Kennedy SULLIAVN Performed By: #### 2 80727130 ####[facility] [address] [place] [address] Glucose [Mass/Vol] 319 mg/dL High 55-99 [facility] Comment on above: Result Comment: Kennedy SULLIVAN Performed By: #### 2 45676818 ####[facility] [address] [place] [address] Glucose [Mass/Vol] 186 mg/dL High 55-99 [facility] Comment on above: Result Comment: Kennedy SULLIVAN Performed By: #### 2 46283559 ####[facility] [address] [place] [address] Glucose [Mass/Vol] 105 mg/dL High 55-99 [facility] Comment on above: Result Comment: Kennedy SULLIVAN Performed By: #### 2 06251280 ####[facility] [address] [place] [address] Glucose [Mass/Vol] 235 mg/dL High 55-99 [facility] Comment on above: Result Comment: Kennedy SULLIVAN Performed By: #### 2 76848691 ####[facility] [address] [place] [address] Insurance Correspondence Off iceon 03-12-2023 Insurance Correspondence Office [id number]#1.00TIFF [facility] Interdisciplinary Note - Edwardo e Manageron 03-12-2023 Interdisciplinary Note - Dietitian Consultant Normal [facility] Comment on above: Result Comment: Elec tronically Signed By: Jane Maria.ricardo\Date and Time Signed: 03/12/23 14:51 EDT Interdisciplinary Note - Rocky n 03-12-2023 Interdisciplinary Note - OT Normal [facility] Interdisciplinary Note - PTo n 03-12-2023 Interdisciplinary Note - PT Normal [facility] Lipid Panelon 03-12-2023 Cholesterol [Mass/Vol] 122 mg/dL Normal 120-200 [facility] Comment on above: Performed By: #### 2 260514, 0280374, 5921012, 20793394, 9445826, 5201961 ####[facility] [address] [place] [address] Cholesterol in HDL [Mass/Vol] 39 mg/dL Invalid Interpretation Code [facility] Comment on above: Result Comment: HDL > or equal to 60 mg/dL: Low cardiovascular riskHDL < 40 mg/dL : High cardiovascular risk Performed By: #### 2 840148, 1711182, 1093711, 67252957, 2638986, 4988616 ####[facility] [address] [place] [address] Cholesterol in LDL [Mass/Vol] 60 mg/dL Normal <=129 [facility] Comment on above: Performed By: #### 2 956311, 7664666, 3186475, 58730434, 9432518, 9149405 ####[facility] [address] [place] [address] Cholesterol in VLDL [Mass/Vol] 19 mg/dL Normal 7-40 [facility] Comment on above: Performed By: #### 2 911738, 7740278, 5226544, 41203683, 6844189, 7635159 ####[facility] [address]law[address] [address] Triglyceride [Mass/Vol] 95 mg/dL Normal <=149 [facility] Comment on above: Performed By: #### 2 732983, 4973943, 7492788, 10486900, 4159121, 8446207 ####[facility] [address] [place] [address] Magnesiumon 03-12-2023 Magnesium [Mass/Vol] 2.4 mg/dL Normal 1.3-2.4 [facility] Comment on above: Performed By: #### 2 783859, 4362868, 0311734, 13191059, 6528298, 3670675 ####[facility] [address] [place] [address] Message from Medicareon 10-0 Message from Medicare [id number]#1.00TIFF Normal [facility] Progress Note-Physicianon Progress Note-Physician Normal [facility] Comment on above: Result Comment: Elec tronically Signed By: Eyad Mims MD\.br\Date and Time Signed: 03/12/23 18:04 EDT Progress Note-Physician Normal [facility] Comment on above: Result Comment: Elec tronically Signed By: Adni HERNANDEZ DO\.br\Date and Time Signed: 03/12/23 00:59 EDT US Carotid Duplex Bilateralo n 03-12-2023 US Carotid Duplex Bilateral Normal [facility] eGFRon 03-12-2023 GFR/1.73 sq M.predicted among non-blacks MDRD (S/P/Bld) [Vol rate/Area] 53 mL/min/1.73 m2 Low >=59 [facility] Comment on above: Order Comment: Order added by Discern Expert. Result Comment: Shactor Helper laisha kidney disease could be indicated at eGFR's of less than 60 mL/min/1.73m2. Kidney failure is indicated at less than 15 mL/min/1.73m2. Performed By: #### 2 721964, 1076461, 3369155, 91167816, 9825835, 6798025 ####[facility] [address] [place] [address] Auto Diffon 03-11-2023 Basophils/100 WBC (Bld) 0.2 % Normal 0.0-2.0 [facility] Comment on above: Order Comment: Order Added by Discern Expert. Performed By: #### 2 385646, 3262849, 3043992, 83145975 ####[facility] [address] [place] [address] Basophils/Leukocytes Auto (Bld) [Pure # fraction] 0.0 E9/L Normal 0.0-0.2 [facility] Comment on above: Order Comment: Order Added by Discern Expert. Performed By: #### 2 956286, 4014182, 9147636, 70403731 ####[address] [address] Eosinophils/100 WBC (Bld) 0.2 % Normal 0.0-8.0 [facility] Comment on above: Order Comment: Order Added by Jayesh Expert. Performed By: #### 2 455211, 4010735, 2410077, 05825690 ####[address] [address] Eosinophils/Leukocytes Auto (Bld) [Pure # fraction] 0.0 E9/L Normal 0.0-0.5 [facility] Comment on above: Order Comment: Order Added by Jayesh Expert. Performed By: #### 2 398957, 7193758, 8640931, 42087732 ####[address] [address] Lymphocytes/100 WBC (Bld) 12.9 % Low 14.0-50.0 [facility] Comment on above: Order Comment: Order Added by Jayesh Expert. Performed By: #### 2 041305, 8295023, 7313994, 22179613 ####[address] [address] Lymphocytes/Leukocytes Auto (Bld) [Pure # fraction] 1.2 E9/L Normal 1.0-4.0 [facility] Comment on above: Order Comment: Order Added by Jayesh Expert. Performed By: #### 2 226373, 9807314, 4656437, 16715314 ####[address] [place] [address] Monocytes/100 WBC (Bld) 6.5 % Normal 4.0-14.0 [facility] Comment on above: Order Comment: Order Added by Jayesh Expert. Performed By: #### 2 714691, 2384628, 0152723, 27257912 ####[address] [address] Monocytes/Leukocytes Auto (Bld) [Pure # fraction] 0.6 E9/L Normal 0.2-1.0 [facility] Comment on above: Order Comment: Order Added by Discern Expert. Performed By: #### 2 151434, 0735593, 3143459, 16668497 ####[facility] [address] [place] [address] Neutrophils/100 WBC (Bld) 80.2 % High 36.0-75.0 [facility] Comment on above: Order Comment: Order Added by Discern Expert. Performed By: #### 2 968031, 6271010, 4495570, 67058511 ####[facility] [address] [place] [address] Neutrophils/Leukocytes Auto (Bld) [Pure # fraction] 7.6 E9/L High 2.0-7.5 [facility] Comment on above: Order Comment: Order Added by Discern Expert. Performed By: #### 2 058647, 1330371, 8199245, 08385669 ####[facility] [address] [place] [address] BMPon 03-11-2023 Anion gap [Moles/Vol] 17 mmol/L High 6-16 [facility] Comment on above: Performed By: #### 2 953602, 2678902, 5393659, 28873867 ####[facility] [address] [place] [address] Calcium [Mass/Vol] 9.0 mg/dL Normal 8.9-11.1 [facility] Comment on above: Performed By: #### 2 875978, 0521279, 8335993, 17450699 ####[facility] [address] [place] [address] Chloride [Moles/Vol] 99 mmol/L Low 101-111 [facility] Comment on above: Performed By: #### 2 430401, 9041775, 8252296, 15092122 ####[facility] [address] [place] [address] CO2 [Moles/Vol] 26 mmol/L Normal 21-31 [facility] Comment on above: Performed By: #### 2 063384, 4795100, 1124555, 62933797 ####[facility] [address] [place] [address] Creatinine [Mass/Vol] 1.6 mg/dL High 0.5-1.3 [facility] Comment on above: Performed By: #### 2 548553, 7384519, 1522112, 86325510 ####[facility] [address] [place] [address] Glucose [Mass/Vol] 142 mg/dL Normal 55-199 [facility] Comment on above: Result Comment: If t his glucose result represents a fasting glucose, interpretation should refer to the following reference range: 55-99 mg/dL Performed By: #### 2 602401, 7490539, 1133720, 51680772 ####[facility] [address] [place] [address] Potassium [Moles/Vol] 3.7 mmol/L Normal 3.5-5.3 [facility] Comment on above: Performed By: #### 2 587377, 6900022, 6494270, 87187813 ####[facility] [address] [place] [address] Sodium [Moles/Vol] 138 mmol/L Normal 135-145 [facility] Comment on above: Performed By: #### 2 701440, 5561826, 4457923, 57330621 ####[facility] [address] [place] [address] Urea nitrogen [Mass/Vol] 37 mg/dL High 5-21 [facility] Comment on above: Performed By: #### 2 506290, 1027122, 0699580, 15278555 ####[facility] [address] [place] [address] Urea nitrogen/Creatinine [Mass ratio] 23 No Units High 10-20 [facility] Comment on above: Performed By: #### 2 967964, 7412929, 0489820, 94081275 ####[address] [place] [address] CBC w/ Auto Diffon 3 Erythrocyte distribution width (RBC) [Ratio] 15.4 % High 10.9-14.2 [facility] Comment on above: Performed By: #### 2 643982, 7292651, 3689356, 04901506 ####[address] [address] Hematocrit (Bld) [Volume fraction] 30.0 % Low 37.7-49.0 [facility] Comment on above: Performed By: #### 2 763860, 2743724, 6138721, 02454595 ####[address] Hemoglobin (Bld) [Mass/Vol] 9.8 g/dL Low 13.5-17.5 [facility] Comment on above: Performed By: #### 2 547850, 7673316, 2800445, 15033806 ####[address] [address] MCH (RBC) [Entitic mass] 27.6 pg Normal 27.0-34.0 [facility] Comment on above: Performed By: #### 2 673958, 2855021, 6228679, 17291269 ####[address] [address] MCHC (RBC) [Mass/Vol] 32.8 g/dL Normal 31.4-36.0 [facility] Comment on above: Performed By: #### 2 123536, 4057327, 8429317, 82932997 ####[address] [address] MCV (RBC) [Entitic vol] 84.2 fL Normal 80.0-100.0 [facility] Comment on above: Performed By: #### 2 584632, 5844717, 7696310, 73893889 ####[address] [address] Platelet mean volume (Bld) [Entitic vol] 7.1 fL Normal 6.4-10.8 [facility] Comment on above: Performed By: #### 2 059094, 4632473, 7135371, 30906051 ####[facility] [address] [place] [address] Platelets (Bld) [#/Vol] 288.0 E9/L Normal 150.0-500. 0 [facility] Comment on above: Performed By: #### 2 736829, 3139539, 0247704, 22715295 ####[facility] [address] [place] [address] RBC (Bld) [#/Vol] 3.6 E12/L Low 4.3-5.9 [facility] Comment on above: Performed By: #### 2 670430, 2374377, 3043020, 94196002 ####[facility] [address] [place] [address] WBC corrected for nucl RBC Auto (Bld) [#/Vol] 9.5 E9/L Normal 4.0-11.0 [facility] Comment on above: Performed By: #### 2 591716, 9436913, 3055081, 48142812 ####[facility] [address] [place] [address] Capillary Glucose POCon 10-0 Glucose [Mass/Vol] 298 mg/dL High 55-[address] [place] [address] Comment on above: Result Comment: Chela nohemi Meter Performed By: #### 2 02306565 ####[facility] [address] [place] [address] Glucose [Mass/Vol] 318 mg/dL High 55-99 [facility] Comment on above: Result Comment: Kennedy SULLIVAN Performed By: #### 2 55769195 ####[facility] [address] [place] [address] Glucose [Mass/Vol] 268 mg/dL High [address] Comment on above: Result Comment: Kennedy SULLIVAN Performed By: #### 2 47501793 ####[facility] [address] [place] [address] Interdisciplinary Note - Edwardo e Manageron 03-11-2023 Interdisciplinary Note - Dietitian Consultant [facility] Comment on above: Result Comment: Elec tronically Signed By: Geno Shukla\.br\Date and Time Signed: 03/11/23 12:18 EDT Monitor Recordon 03-11-2023 Monitor Record [id number]#1.00TIFF [facility] Monitor Record [id number]#1.00TIFF [facility] Monitor Record [id number]#1.00TIFF [facility] Monitor Record [id number]#1.00TIFF [facility] Progress Note-Physicianon Progress Note-Physician [facility] Comment on above: Result Comment: Elec tronically Signed By: Eyad Mims MD\.br\Date and Time Signed: 03/11/23 15:08 EDT Progress Note-Physician [facility] Comment on above: Result Comment: Elec tronically Signed By: Angelina London\.br\Date and Time Signed: 03/11/23 09:57 EDT\.br\Electronically Co-Signed By: Felix Dc DO\.br\Date and Time Co-Signed: 03/11/23 14:29 EDT eGFRon 03-11-2023 GFR/1.73 sq M.predicted among non-blacks MDRD (S/P/Bld) [Vol rate/Area] 45 mL/min/1.73 m2 Low >=59 [facility] Comment on above: Order Comment: Order added by Discern Expert. Result Comment: Shactor Helper laisha kidney disease could be indicated at eGFR's of less than 60 mL/min/1.73m2. Kidney failure is indicated at less than 15 mL/min/1.73m2. Performed By: #### 2 271440, 3782630, 1102875, 31036972 ####[facility] [address] [place] [address] BMPon 03-10-2023 Anion gap [Moles/Vol] 14 mmol/L Normal 6-16 [facility] Comment on above: Performed By: #### 2 554566, 61243106, 1116801, 2715892 ####[facility] [address] [place] [address] Calcium [Mass/Vol] 8.6 mg/dL Low 8.9-11.1 [facility] Comment on above: Performed By: #### 2 694302, 71718109, 8998451, 2717329 ####[facility] [address] [place] [address] Chloride [Moles/Vol] 98 mmol/L Low 101-111 [facility] Comment on above: Performed By: #### 2 510560, 33345687, 9010901, 5391055 ####[facility] [address] [place] [address] CO2 [Moles/Vol] 28 mmol/L Normal 21-31 [facility] Comment on above: Performed By: #### 2 403836, 70872069, 8733467, 6087875 ####[facility] [address] [place] [address] Creatinine [Mass/Vol] 1.5 mg/dL High 0.5-1.3 [facility] Comment on above: Performed By: #### 2 945816, 62809800, 6182159, 3873576 ####[facility] [address] [place] [address] Glucose [Mass/Vol] 300 mg/dL High 55-199 [facility] Comment on above: Result Comment: If t his glucose result represents a fasting glucose, interpretation should refer to the following reference range: 55-99 mg/dL Performed By: #### 2 408720, 16623600, 2435171, 7929675 ####[facility] [address] [place] [address] Potassium [Moles/Vol] 4.0 mmol/L Normal 3.5-5.3 [facility] Comment on above: Performed By: #### 2 878638, 23766000, 0182723, 9175861 ####[facility] [address] [place] [address] Sodium [Moles/Vol] 136 mmol/L Normal 135-145 [facility] Comment on above: Performed By: #### 2 120981, 81014278, 5308558, 8567144 ####[facility] [address] [place] [address] Urea nitrogen [Mass/Vol] 32 mg/dL High 5-21 [facility] Comment on above: Performed By: #### 2 399183, 05882038, 2536591, 4148879 ####[facility] [address] [place] [address] Urea nitrogen/Creatinine [Mass ratio] 21 No Units High 10-20 [facility] Comment on above: Performed By: #### 2 626264, 99853572, 0618174, 0735047 ####[facility] [address] [place] [address] CBC w/Indiceson 03-10-2023 Erythrocyte distribution width (RBC) [Ratio] 15.6 % High 10.9-14.2 [facility] Comment on above: Performed By: #### 2 008921, 91523526, 3613785, 5566882 ####[facility] [address] [place] [address] Hematocrit (Bld) [Volume fraction] 30.0 % Low 37.7-49.0 [facility] Comment on above: Performed By: #### 2 854163, 66254322, 0320429, 0598795 ####[facility] [address] [place] [address] Hemoglobin (Bld) [Mass/Vol] 10.1 g/dL Low 13.5-17.5 [facility] Comment on above: Performed By: #### 2 265440, 64635690, 9848894, 9043793 ####[facility] [address] [place] [address] MCH (RBC) [Entitic mass] 28.1 pg Normal 27.0-34.0 [facility] Comment on above: Performed By: #### 2 257762, 97255839, 8107551, 3158450 ####[address] [address] MCHC (RBC) [Mass/Vol] 33.6 g/dL Normal 31.4-36.0 [facility] Comment on above: Performed By: #### 2 803911, 62675020, 8060826, 4960280 ####[place] [address] MCV (RBC) [Entitic vol] 83.5 fL Normal 80.0-100.0 [facility] Comment on above: Performed By: #### 2 478338, 13270916, 1461188, 4226362 ####[address] [address] Platelet mean volume (Bld) [Entitic vol] 6.8 fL Normal 6.4-10.8 [facility] Comment on above: Performed By: #### 2 034117, 33571423, 9807554, 9706975 ####[address] [address] Platelets (Bld) [#/Vol] 284.0 E9/L Normal 150.0-500. 0 [facility] Comment on above: Performed By: #### 2 447419, 74189418, 1835072, 9108428 ####[place] [address] [place] [address] RBC (Bld) [#/Vol] 3.6 E12/L Low 4.3-5.9 [facility] Comment on above: Performed By: #### 2 048860, 62337761, 1130111, 7195596 ####[facility] [address] [place] [address] WBC corrected for nucl RBC Auto (Bld) [#/Vol] 9.8 E9/L Normal 4.0-11.0 [facility] Comment on above: Performed By: #### 2 578413, 17744553, 2400792, 1168167 ####[facility] [address] [place] [address] Capillary Glucose POCon 0 Glucose [Mass/Vol] 231 mg/dL High 55-99 [facility] Comment on above: Result Comment: Chela nohemi Meter Performed By: #### 2 76486369 ####[address] [address] [place] [address] Glucose [Mass/Vol] 232 mg/dL High 55-99 [facility] Comment on above: Result Comment: Kennedy espitia RN/ Performed By: #### 2 67004227 ####[facility] [address] [place] [address] Glucose [Mass/Vol] 309 mg/dL High 55-99 [facility] Comment on above: Result Comment: Kennedy SULLIVAN Performed By: #### 2 21878637 ####[facility] [address] [place] [address] Glucose [Mass/Vol] 276 mg/dL High 55-99 [facility] Comment on above: Result Comment: eKnnedy SULLIVAN Performed By: #### 2 77835063 ####[facility] [address] [place] [address] Glucose [Mass/Vol] 420 mg/dL High 55-99 [facility] Comment on above: Result Comment: Kennedy SULLIVAN Performed By: #### 2 12584987 ####[facility] [address] [place] [address] Consultation Noteon 03-10-20 Consultation Note Normal [facility] Comment on above: Result Comment: Elec tronically Signed By: Eayd Mims MD\.br\Date and Time Signed: 03/10/23 18:32 EDT Influenza A&B Agon Influenzae A Ag Negative Normal Negative [facility] Comment on above: Performed By: #### 1 [id number], 93964848, 4567052352 ####[facility] [address] [place] [address] Influenzae B Ag Negative Normal Negative [facility] Comment on above: Result Comment: Test sensitivity and specificity vary for age group, specimen type, antigen types, and prevalence of disease. Test results must be evaluated in conjunction with other clinical data available to the physician. Individuals who received nasally administered Influenza A vaccine may have positive test results up to 3 days after vaccination. Performed By: #### 1 [id number], 62434986, [id number] ####[facility] [address] [place] [address] Interdisciplinary Note - Edwardo e Manageron 03-10-2023 Interdisciplinary Note - Dietitian Consultant Normal [facility] Comment on above: Result Comment: Elec tronically Signed By: Geno Shukla\.br\Date and Time Signed: 03/10/23 12:39 EDT Magnesiumon 03-10-2023 Magnesium [Mass/Vol] 2.1 mg/dL Normal 1.3-2.4 [facility] Comment on above: Performed By: #### 2 913069, 85013354, 3507368, 7243753 ####[facility] [address] [place] [address] Monitor Recordon 03-10-2023 Monitor Record [id number]#1.00TIFF Normal [facility] Monitor Record [id number]#1.00TIFF Normal [facility] Monitor Record [id number]#1.00TIFF Normal [facility] Procalcitoninon 03-10-2023 Procalcitonin <.05 Normal .00-.50 [facility] Comment on above: Result Comment: <0.5 ng/mL Low risk of severe sepsis and/or shock>2.0 ng/mL High risk of severe sepsis and/or shockConcentrations under 0.5 ng/mL do not exclude local infections or systemic infections in their initial stages (e.g.. under six hours from onset of illness). PCT concentrations between 0.5 and 2.0 ng/mL should be interpreted with consideration of the patient's history. In this range, it is recommended to retest PCT within 6 to 24 hours. Performed By: #### 2 [id number], 07975913 ####[facility] [address] [place] [address] Progress Note-Nurseon 2022 Progress Note-Nurse patient unsure of ho me medications. States my daughter Stephanie is a nurse and she manages all of my medications, you can give her a call. This RN attempted to call twice. No answer. Voicemail left. Normal [facility] Progress Note-Physicianon Progress Note-Physician Normal [facility] Comment on above: Result Comment: Elec tronically Signed By: Angelina London\.br\Date and Time Signed: 03/10/23 15:51 EDT\.br\Electronically Co-Signed By: Felix Dc DO\.br\Date and Time Co-Signed: 03/10/23 18:30 EDT Rapid COVID Antigen ([facility])on 03-10-2023 Rapid COV Int NEG Ctl Pass Normal [facility] Comment on above: Performed By: #### 1 [id number], 72747671, 5041060044 ####[facility] [address] [place] [address] Rapid COV Int POS Ctl Pass Normal [facility] Comment on above: Performed By: #### 1 009953977, 34188362, 4691086929 ####[facility] [address] [place] [address] SARS-CoV+SARS-CoV-2 (COVID-19) Ag IA.rapid Ql (Resp) Not detected Normal Not Detected [facility] Comment on above: Result Comment: The [employer] Simplified Veritor? System for Rapid Detection of SARS-CoV-2 is a chromatographic digital immunoassay intended for the direct and qualitative detection of SARS-CoV-2 nucleocapsid antigens in nasal swabs from individuals who are suspected of COVID-19 by their healthcare provider within the first five days of the onset of symptoms. Negative results should be treated as presumptive, do not rule out SARS-CoV-2 infection and should not be used as the sole basis for treatment or patient management decisions, including infection control decisions. Negative results should be considered in the context of a patient?s recent exposures, history and the presence of clinical signs and symptoms consistent with COVID-19, and confirmed with a molecular assay, if necessary, for patient management. For in vitro diagnostic use. In the [place], only for use under an Emergency Use Authorization. In the [place], this test has not been FDA cleared or approved; this test has been authorized by FDA under an EUA for use by authorized laboratories; use by laboratories certified under the CLIA, 42 U.S.C. ?263a, that meet requirements to perform moderate, high, or waived complexity tests and at the Point of Care (POC), i.e., in patient care settings operating under a CLIA Certificate of Waiver, Certificate of Compliance, or Certificate of Accreditation.This test has been authorized only for the detection of proteins from SARS-CoV-2, not for any other viruses or pathogens; and, in the [facility], this test is only authorized for the duration of the declaration that circumstances exist justifying the authorization of emergency use of in vitro diagnostics for detection and/or diagnosis of the virus that causes COVID-19 under Section 564(b)(1) of the Act, 21 U.S.C. ? 360bbb-3(b)(1), unless the authorization is terminated or revoked sooner. Performed By: #### 1 [id number], 39812308, [id number] ####[facility] [address] [place] [address] Respiratory Panel by PCRon 1 Adenovirus DNA JOLANTA+non-probe Ql (Nph) Not detected Normal [facility] Comment on above: Result Comment: Test ing was performed using nucleic acid amplification including Influenza A, Influenza A H1, Influenza A H3, Influenza B, RSV A, RSV B, Adenovirus, Human Metapneumovirus, Parainfluenza 1,2,3, and 4, Rhinovirus, Bordetella parapertussis/bronchiseptica, Bordetella holmesii, and Bordetella pertussis. Performed By: #### 1 392494974, 71114024, [id number] ####[address] [place] [address] B. parapertussis DNA JOLANTA+probe Ql (Upper resp) Not detected Normal Not Detected [facility] Comment on above: Performed By: #### 1 217270579, 79975768, 4612139737 ####[address] [address] B. pertussis DNA JOLANTA+probe Ql (Upper resp) Not detected Normal Not Detected [facility] Comment on above: Performed By: #### 1 824063356, 06540868, 8545072260 ####[address] [address] FLUAV H1 RNA JOLANTA+non-probe Ql (Nph) Not detected Normal [facility] Comment on above: Performed By: #### 1 524365084, 16920745, 4258298784 ####[address] [address] FLUAV H3 RNA JOLANTA+non-probe Ql (Nph) Not detected Normal [facility] Comment on above: Performed By: #### 1 998663423, 81323739, 7418179538 ####[address] [place] [address] FLUAV RNA JOLANTA+non-probe Ql (Nph) Not detected Normal [facility] Comment on above: Performed By: #### 1 940541241, 91804439, 5910853001 ####[address] [place] [address] FLUBV RNA JOLANTA+non-probe Ql (Nph) Not detected Normal [facility] Comment on above: Performed By: #### 1 445150267, 81201508, 1747034206 ####[address] [address] Human Metapneumovirus Not detected Normal [facility] Comment on above: Result Comment: This test result should be correlated with clinical presentations and medical history by a healthcare provider to determine its clinical significance. Performed By: #### 1 259248775, 57594486, 6259715579 ####[place] [address] Parainfluenza virus 1 RNA JOLANTA+non-probe Ql (Nph) Not detected Normal [facility] Comment on above: Performed By: #### 1 505722338, 42099124, 5762980454 ####[place] [address] Parainfluenza virus 2 RNA JOLANTA+non-probe Ql (Nph) Not detected Normal [facility] Comment on above: Performed By: #### 1 207453698, 76943210, 0826220069 ####[place] [address] Parainfluenza virus 3 RNA JOLANTA+non-probe Ql (Nph) Not detected Normal [facility] Comment on above: Performed By: #### 1 701918517, 33010845, 4305971124 ####[place] [address] Parainfluenza virus 4 RNA JOLANTA+non-probe Ql (Nph) Not detected Normal [facility] Comment on above: Performed By: #### 1 115440941, 57560758, 4614986749 ####[address] [address] Resp Panel Intrl QC Pass [facility] Comment on above: Performed By: #### 1 046173037, 58269217, 0269458758 ####[address] [place] [address] Rhinovirus+Enterovirus RNA JOLANTA+non-probe Ql (Nph) Not detected Normal [facility] Comment on above: Performed By: #### 1 949800553, 03897749, 7552689748 ####[facility] [address] [place] [address] RSV RNA JOLANTA+non-probe Ql (Nph) Not detected Normal [facility] Comment on above: Performed By: #### 1 228177625, 16558834, 1064638770 ####[facility] [address] [place] [address] Troponin 9 Hr.on 03-10-2023 Troponin I.cardiac [Mass/Vol] 12.60 pg/mL Low 15.90-38.4 0 [facility] Comment on above: Result Comment: The 95% CI (Confidence Interval) PPV (Positive Predictive Value) for myocardial infarction in females is 38 pg/mL, in males 51 pg/mL. The results should be used in conjunction with clinical conditions of myocardial infarction.(Access High Sensitivity Troponin I Instructions For Use, Milagro Wander, January 2018) Performed By: #### 2 [id number], [id number] ####[address] [address] eGFRon 03-10-2023 GFR/1.73 sq M.predicted among non-blacks MDRD (S/P/Bld) [Vol rate/Area] 49 mL/min/1.73 m2 Low >=59 [facility] Comment on above: Order Comment: Order added by Discern Expert. Result Comment: Shactor Helper laisha kidney disease could be indicated at eGFR's of less than 60 mL/min/1.73m2. Kidney failure is indicated at less than 15 mL/min/1.73m2. Performed By: #### 2 918489, 82260049, 2428770, 2743578 ####[facility] [address] [place] [address] Auto Diffon 03-09-2023 Basophils/100 WBC (Bld) 1.1 % Normal 0.0-2.0 [facility] Comment on above: Order Comment: Order Added by Discern Expert. Performed By: #### 2 278156, 25393216, 09694688, 70290564, 2452770, 2945334, 88127689 ####[facility] [address] [place] [address] Basophils/Leukocytes Auto (Bld) [Pure # fraction] 0.1 E9/L Normal 0.0-0.2 [facility] Comment on above: Order Comment: Order Added by Discern Expert. Performed By: #### 2 759402, 87302251, 24144094, 83954056, 3780646, 6135290, 31752833 ####[address] [place] [address] Eosinophils/100 WBC (Bld) 4.1 % Normal 0.0-8.0 [facility] Comment on above: Order Comment: Order Added by Discern Expert. Performed By: #### 2 686600, 91540142, 23088981, 08203746, 9555873, 9155649, 89694557 ####[address] [place] [address] Eosinophils/Leukocytes Auto (Bld) [Pure # fraction] 0.3 E9/L Normal 0.0-0.5 [facility] Comment on above: Order Comment: Order Added by Discern Expert. Performed By: #### 2 176504, 09444184, 79847613, 38179066, 8583633, 3894899, 41597992 ####[address] [place] [address] Lymphocytes/100 WBC (Bld) 18.5 % Normal 14.0-50.0 [facility] Comment on above: Order Comment: Order Added by Discern Expert. Performed By: #### 2 674485, 66305876, 49899861, 30847751, 8549219, 1322174, 95996516 ####[address] [place] [address] Lymphocytes/Leukocytes Auto (Bld) [Pure # fraction] 1.5 E9/L Normal 1.0-4.0 [facility] Comment on above: Order Comment: Order Added by Discern Expert. Performed By: #### 2 193388, 73128999, 65067402, 18946132, 4301354, 4731522, 04393207 ####[facility] [address] [place] [address] Monocytes/100 WBC (Bld) 7.4 % Normal 4.0-14.0 [facility] Comment on above: Order Comment: Order Added by Discern Expert. Performed By: #### 2 198124, 77764609, 22238950, 15196705, 3457507, 5877262, 56592224 ####[address] [place] [address] Monocytes/Leukocytes Auto (Bld) [Pure # fraction] 0.6 E9/L Normal 0.2-1.0 [facility] Comment on above: Order Comment: Order Added by Jayesh Expert. Performed By: #### 2 245097, 85538051, 75360540, 41386411, 0250783, 7739426, 72808218 ####[facility] [address] [place] [address] Neutrophils/100 WBC (Bld) 68.9 % Normal 36.0-75.0 [facility] Comment on above: Order Comment: Order Added by Jayesh Expert. Performed By: #### 2 201191, 51827017, 35301738, 22193894, 5831086, 5560154, 60184294 ####[facility] [address] [place] [address] Neutrophils/Leukocytes Auto (Bld) [Pure # fraction] 5.6 E9/L Normal 2.0-7.5 [facility] Comment on above: Order Comment: Order Added by Jayesh Expert. Performed By: #### 2 789802, 23393515, 91286151, 16987569, 5868616, 3929795, 85708244 ####[facility] [address] [place] [address] BMPon 03-09-2023 Creatinine [Mass/Vol] 1.4 mg/dL High 0.5-1.3 [facility] Comment on above: Performed By: #### 2 063941, 97355067, 53955133, 92371744, 3039580, 2791436, 32971858 ####[facility] [address] [place] [address] Urea nitrogen [Mass/Vol] 28 mg/dL High 5-21 [facility] Comment on above: Performed By: #### 2 754777, 43512378, 61074971, 99512506, 3979231, 3414900, 68059598 ####[facility] [address] [place] [address] Urea nitrogen/Creatinine [Mass ratio] 20 No Units Normal 10-20 [facility] Comment on above: Performed By: #### 2 904320, 58072804, 25649186, 25583680, 8953020, 4226991, 08254962 ####[facility] [address] [place] [address] Anion gap [Moles/Vol] 12 mmol/L Normal 6-16 [facility] Comment on above: Performed By: #### 2 341677, 84896126, 62228991, 83060927, 5352497, 6644524, 55973537 ####[facility] [address] [place] [address] Calcium [Mass/Vol] 8.8 mg/dL Low 8.9-11.1 [facility] Comment on above: Performed By: #### 2 751826, 14381033, 32357963, 84795915, 5123677, 1150958, 17925643 ####[facility] [address] [place] [address] Chloride [Moles/Vol] 99 mmol/L Low 101-111 [facility] Comment on above: Performed By: #### 2 313154, 40737465, 51642845, 80408180, 9696482, 5786281, 02726110 ####[facility] [address] [place] [address] CO2 [Moles/Vol] 29 mmol/L Normal 21-31 [facility] Comment on above: Performed By: #### 2 440076, 93160440, 16083531, 95546170, 4382277, 9422098, 36006546 ####[facility] [address] [place] [address] Glucose [Mass/Vol] 200 mg/dL High 55-199 [facility] Comment on above: Result Comment: If t his glucose result represents a fasting glucose, interpretation should refer to the following reference range: 55-99 mg/dL Performed By: #### 2 652008, 64507973, 84651613, 64677065, 6759201, 6148278, 21880504 ####[facility] [address] [place] [address] Potassium [Moles/Vol] 4.4 mmol/L Normal 3.5-5.3 [facility] Comment on above: Performed By: #### 2 468452, 84940172, 11434760, 01879590, 1552341, 7394923, 51737312 ####[facility] [address] [place] [address] Sodium [Moles/Vol] 136 mmol/L Normal 135-145 [facility] Comment on above: Performed By: #### 2 147918, 58847740, 35429355, 64890434, 4188659, 1899523, 76939933 ####[facility] [address] [place] [address] BNPon 03-09-2023 Natriuretic peptide B (Bld) [Mass/Vol] 97 pg/mL High 5-80 [facility] Comment on above: Performed By: #### 2 011873, 55748782, 09591570, 64441896, 0289232, 3856136, 51208837 ####[facility] [address] [place] [address] CBC w/ Auto Diffon 3 Erythrocyte distribution width (RBC) [Ratio] 15.8 % High 10.9-14.2 [facility] Comment on above: Performed By: #### 2 610227, 71275676, 77814300, 67789186, 6300735, 5327056, 94244736 ####[facility] [address] [place] [address] Hematocrit (Bld) [Volume fraction] 29.2 % Low 37.7-49.0 [facility] Comment on above: Performed By: #### 2 269573, 56379609, 29456877, 53143932, 7164627, 9934701, 09606943 ####[facility] [address] [place] [address] Hemoglobin (Bld) [Mass/Vol] 9.5 g/dL Low 13.5-17.5 [facility] Comment on above: Performed By: #### 2 022898, 71451405, 10595723, 86622922, 2066911, 2257645, 45995640 ####[facility] [address] [place] [address] MCH (RBC) [Entitic mass] 27.4 pg Normal 27.0-34.0 [facility] Comment on above: Performed By: #### 2 982462, 67525680, 16951131, 99877676, 8152439, 5261768, 08945712 ####[facility] [address] [place] [address] MCHC (RBC) [Mass/Vol] 32.7 g/dL Normal 31.4-36.0 [facility] Comment on above: Performed By: #### 2 867729, 06577266, 00946031, 72489234, 4596068, 0235574, 24383116 ####[facility] [address] [place] [address] MCV (RBC) [Entitic vol] 83.6 fL Normal 80.0-100.0 [facility] Comment on above: Performed By: #### 2 217224, 59018298, 64575541, 60751230, 6299896, 4906366, 13745994 ####[facility] [address] [place] [address] Platelet mean volume (Bld) [Entitic vol] 6.4 fL Normal 6.4-10.8 [facility] Comment on above: Performed By: #### 2 248493, 55488787, 56119125, 84167704, 8090494, 4508336, 15553040 ####[address] [place] [address] Platelets (Bld) [#/Vol] 276.0 E9/L Normal 150.0-500. 0 [facility] Comment on above: Performed By: #### 2 049097, 67850258, 33799023, 63719715, 9039172, 7752842, 13073199 ####[address] [place] [address] RBC (Bld) [#/Vol] 3.5 E12/L Low 4.3-5.9 [facility] Comment on above: Performed By: #### 2 384117, 18570672, 04547321, 67481139, 6177353, 1554376, 78230197 ####[address] [place] [address] WBC corrected for nucl RBC Auto (Bld) [#/Vol] 8.2 E9/L Normal 4.0-11.0 [facility] Comment on above: Performed By: #### 2 148795, 88273565, 74498106, 20410496, 7881733, 9828157, [id number] ####[address] [place] [address] CT Head or Brain w/o Contras ton 03-09-2023 CT Head or Brain w/o Contrast Normal [facility] Consent for Treatmenton 0 Consent for Treatment [id number] Normal [facility] Consent for Treatment [id number] Normal [facility] ED Clinical Summaryon 2022 ED Clinical Summary Normal Scott caputo [facility] ED Note-Physicianon 03-09-20 ED Note-Physician Normal [facility] Comment on above: Result Comment: Elec tronically Signed By: Xavi BROUSSARD, Tyrel\.br\Date and Time Signed: 03/09/23 18:43 EDT ED Patient Education Noteon 03-09-2023 ED Patient Education Note Normal [facility] ED Patient Summaryon 023 ED Patient Summary Normal [facility] Monitor Recordon 03-09-2023 Monitor Record [id number] Normal [facility] Monitor Record [id number]#[id number] Normal [facility] PT & PTTon 03-09-2023 aPTT Coag (PPP) [Time] 37.6 second(s) High 25.1-36.5 [facility] Comment on above: Result Comment: Para meter 15 days - 4 weeks 1 - 5 months 6 - 11 months 1 - 5 years 6 - 10 years 11 - 17 years PTT Mean: 35.4 (27.6-45.6) Mean: 33.5 (24.8-40.7) Mean: 32.4 (25.1-40.7) Mean: 31.6 (24.0-39.2) Mean: 31.6 (26.9-38.7) Mean: 31.0 (24.6-38.4) Pediatric Reference ranges were obtained from a study by Fei Yee et al. prepared from 1437 samples obtained at 7 different centers using the same coagulation reagent and instrumentation as [facility]. Currently there are no coagulation studies available worldwide for children to 14 days, and no normal ranges. Heparin therapeutic range (represented by Anti-Factor Xa activity of 0.2 - 0.4 U/mL) corresponds to PTT of 56.6 - 109.0 sec. Performed By: #### 2 [id number], 02307374, 78372624, 85256074, 6712570, 3273430, 79887552 ####[facility] [address] [place] [address] INR Coag (PPP) [Relative time] 1.4 {INR} Invalid Interpretation Code [facility] Comment on above: Result Comment: INR results are specifically intended to assess patients stabilized on long-term Anticoagulation therapy suggested INR?s ?Less Intensive Anticoagulation? 2.0 ? 3.0Conventional Range 3.0 ? 4.5 Performed By: #### 2 232013, 13211973, 83331519, 92430207, 8189299, 7114949, 74035267 ####[facility] [address] [place] [address] PT Coag (PPP) [Time] 15.9 second(s) High 9.4-12.5 [facility] Comment on above: Result Comment: 15 d ays - 4 weeks 1 - 5 months 6 -11 months 1- 5 years 6-10 years 11 -17 years Mean: 11.2 (9.5-12.6) Mean: 11.0 (9.7-12.8) Mean: 11.0 (9.8-13.0) Mean: 11.3 (9.9-13.4) Mean: 11.7 (10.0-14.6) Mean: 11.8 (10.0 - 14.1) Pediatric Reference ranges were obtained from a study by Fei Yee et al. prepared from 1437 samples obtained at 7 different centers using the same coagulation reagent and instrumentation as [facility]. Currently there are no coagulation studies available worldwide for children to 14 days, and no normal ranges. Performed By: #### 2 689994, 07513150, 97480834, 92603175, 3870907, 0696298, 53176360 ####[facility] [address] [place] [address] Pre-Arrival Noteon Pre-Arrival Note Normal [facility] Troponin 0 Hr.on 03-09-2023 Troponin I.cardiac [Mass/Vol] 14.30 pg/mL Low 15.90-38.4 0 [facility] Comment on above: Result Comment: The 95% CI (Confidence Interval) PPV (Positive Predictive Value) for myocardial infarction in females is 38 pg/mL, in males 51 pg/mL. The results should be used in conjunction with clinical conditions of myocardial infarction.(Access High Sensitivity Troponin I Instructions For Use, [employer], January 2018) Performed By: #### 2 302559, 72398934, 25977594, 12770491, 8866345, 8022777, 86739854 ####[facility] [address] [place] [address] Troponin 3 Hr.on 03-09-2023 Troponin I.cardiac [Mass/Vol] 16.60 pg/mL Normal 15.90-38.4 0 [facility] Comment on above: Result Comment: The 95% CI (Confidence Interval) PPV (Positive Predictive Value) for myocardial infarction in females is 38 pg/mL, in males 51 pg/mL. The results should be used in conjunction with clinical conditions of myocardial infarction.(App[employer]eta High Sensitivity Troponin I Instructions For Use, [employer], January 2018) Performed By: #### 1 [id number] ####[facility] [address] [place] [address] Troponin 6 Hr.on 03-09-2023 Troponin I.cardiac [Mass/Vol] 14.70 pg/mL Low 15.90-38.4 0 [facility] Comment on above: Result Comment: The 95% CI (Confidence Interval) PPV (Positive Predictive Value) for myocardial infarction in females is 38 pg/mL, in males 51 pg/mL. The results should be used in conjunction with clinical conditions of myocardial infarction.(App[employer]eta High Sensitivity Troponin I Instructions For Use, [employer], January 2018) Performed By: #### 1 [id number] ####[facility] [address] [place] [address] XR Chest Single Viewon 03-09 XR Chest Single View Normal [facility] eGFRon 03-09-2023 GFR/1.73 sq M.predicted among non-blacks MDRD (S/P/Bld) [Vol rate/Area] 53 mL/min/1.73 m2 Low >=59 [facility] Comment on above: Order Comment: Order added by Discern Expert. Result Comment: Shactor Helper laisha kidney disease could be indicated at eGFR's of less than 60 mL/min/1.73m2. Kidney failure is indicated at less than 15 mL/min/1.73m2. Performed By: #### 2 015080, 08794967, 89990443, 36849399, 5886430, 3254785, 68610612 ####[facility] [address] [place] [address] CBC w/Indiceson 03-02-2023 Erythrocyte distribution width (RBC) [Ratio] 15.5 % High 10.9-14.2 [facility] Comment on above: Performed By: #### 1 1277239, 7285605, 5073874, 6008341, 8280550, 4638502 ####[facility] [address] [place] [address] Hematocrit (Bld) [Volume fraction] 29.4 % Low 37.7-49.0 [facility] Comment on above: Performed By: #### 1 3262883, 1132522, 3406681, 7893216, 6077129, 2056321 ####[facility] [address] [place] [address] Hemoglobin (Bld) [Mass/Vol] 9.8 g/dL Low 13.5-17.5 [facility] Comment on above: Performed By: #### 1 2407375, 9754556, 3990471, 8689733, 8867826, 7313501 ####[facility] [address] [place] [address] MCH (RBC) [Entitic mass] 28.4 pg Normal 27.0-34.0 [facility] Comment on above: Performed By: #### 1 6312198, 7388104, 2906872, 3719844, 4338197, 6691844 ####[facility] [address] [place] [address] MCHC (RBC) [Mass/Vol] 33.2 g/dL Normal 31.4-36.0 [facility] Comment on above: Performed By: #### 1 8382913, 2478052, 4274848, 6810516, 6894956, 7242187 ####[facility] [address] [place] [address] MCV (RBC) [Entitic vol] 85.6 fL Normal 80.0-100.0 [facility] Comment on above: Performed By: #### 1 1374831, 5086246, 8195963, 1685202, 2260642, 6039679 ####[address] [place] [address] Platelet mean volume (Bld) [Entitic vol] 6.7 fL Normal 6.4-10.8 [facility] Comment on above: Performed By: #### 1 1283155, 8543729, 5659537, 3404823, 6320133, 2951477 ####[address] [address] Platelets (Bld) [#/Vol] 272.0 E9/L Normal 150.0-500. 0 [facility] Comment on above: Performed By: #### 1 9068322, 9525089, 0497145, 0185382, 0100970, 8460661 ####[address] [address] RBC (Bld) [#/Vol] 3.4 E12/L Low 4.3-5.9 [facility] Comment on above: Performed By: #### 1 0509064, 2462978, 9473535, 1563475, 4544993, 6866384 ####[address] [place] [address] WBC corrected for nucl RBC Auto (Bld) [#/Vol] 9.3 E9/L Normal 4.0-11.0 [facility] Comment on above: Performed By: #### 1 0351584, 0095908, 8229707, 2104415, 3839134, 4032631 ####[facility] [address] [place] [address] CHEMISTRYOrdered By: SYSTEM SYSTEM on 03-02-2023 Albumin [Mass/Vol] 3.5 g/dL Normal 3.3 - 5.0 gm/dL [facility] Albumin/Globulin [Mass ratio] 0.9 {ratio} Low 1.1 - 2.2 [facility] ALP [Catalytic activity/Vol] 83 [iU]/d Normal 21 - 98 Int._Unit/ L [facility] ALT No additional P-5'-P [Catalytic activity/Vol] 10 [iU]/d Normal 6 - 46 Int._Unit/ L [facility] Anion gap [Moles/Vol] 12 mmol/L Normal 6 - 16 mEq/L [facility] AST [Catalytic activity/Vol] 20 [iU]/d Normal 5 - 43 Int._Unit/ L [facility] Bilirubin [Mass/Vol] 0.5 mg/dL Normal 0.0 - 1 .1 mg/dL [facility] Calcium [Mass/Vol] 8.8 mg/dL Low 8.9 - 11. 1 mg/dL [facility] Chloride [Moles/Vol] 108 mmol/L Normal 101 - 1 11 mmol/L [facility] CO2 [Moles/Vol] 24 mmol/L Normal 21 - 31 mmol/L [facility] Cobalamin (Vitamin B12) [Mass/Vol] 265 pg/mL Normal 50 - 1500 pg/mL [facility] Creatinine [Mass/Vol] 1.2 mg/dL Normal 0.5 - 1.3 mg/dL [facility] Folate [Mass/Vol] 14.7 ng/mL Normal >=6.7ng/mL [facility] GFR/1.73 sq M.predicted among non-blacks MDRD (S/P/Bld) [Vol rate/Area] 63 mL/min/1.73 m2 Normal >=59mL/min /1.73 m2 [facility] Comment on above: Interpretive Data: C hronic kidney disease could be indicated at eGFR's of less than 60 mL/min/1.73m2. Kidney failure is indicated at less than 15 mL/min/1.73m2. Globulin (S) [Mass/Vol] 3.9 g/dL Normal 1.4 - 4.0 gm/dL [facility] Glucose [Mass/Vol] 302 mg/dL High 55 - 199 mg/dL [facility] Comment on above: Interpretive Data: I f this glucose result represents a fasting glucose, interpretation should refer to the following reference range: 55-99 mg/dL Potassium [Moles/Vol] 4.6 mmol/L Normal 3.5 - 5.3 mmol/L [facility] Protein [Mass/Vol] 7.4 g/dL Normal 6.0 - 7.8 gm/dL [facility] Sodium [Moles/Vol] 139 mmol/L Normal 135 - 145 mmol/L [facility] TSH Qn 9.87 m[IU]/L High 0.34 - 5.60 mcIU/mL [facility] Urea nitrogen [Mass/Vol] 21 mg/dL Normal 5 - 21 mg/dL [facility] Urea nitrogen/Creatinine [Mass ratio] 18 mg/mg Normal 10 - 20 [facility] CMPon 03-02-2023 Albumin [Mass/Vol] 3.5 g/dL Normal 3.3-5.0 [facility] Comment on above: Performed By: #### 1 5784568, 3332509, 7206363, 1920165, 8571402, 6444108 ####[facility] [address] [place] [address] Albumin/Globulin (S) [Mass conc ratio] 0.9 Low 1.1-2.2 [facility] Comment on above: Performed By: #### 1 9127838, 6584776, 7746103, 7728467, 3919578, 1585387 ####[facility] [address] [place] [address] ALP [Catalytic activity/Vol] 83 Int._Unit/L Normal 21-98 [facility] Comment on above: Performed By: #### 1 8107962, 8638334, 8416385, 0820141, 0204519, 0692310 ####[facility] [address] [place] [address] ALT No additional P-5'-P [Catalytic activity/Vol] 10 Int._Unit/L Normal 6-46 [facility] Comment on above: Performed By: #### 1 1889263, 9711712, 1951952, 0112591, 9690697, 1680855 ####[facility] [address] [place] [address] Anion gap [Moles/Vol] 12 mmol/L Normal 6-16 [facility] Comment on above: Performed By: #### 1 9100778, 6858119, 4320291, 9217358, 1859592, 4523756 ####[facility] [address] [place] [address] AST [Catalytic activity/Vol] 20 Int._Unit/L Normal 5-43 [facility] Comment on above: Performed By: #### 1 3591892, 9893542, 1160456, 8173784, 7179634, 7808822 ####[facility] [address] [place] [address] Bilirubin [Mass/Vol] 0.5 mg/dL Normal 0.0-1.1 [facility] Comment on above: Performed By: #### 1 0988655, 1109715, 7832447, 9595903, 0458132, 5791717 ####[facility] [address] [place] [address] Calcium [Mass/Vol] 8.8 mg/dL Low 8.9-11.1 [facility] Comment on above: Performed By: #### 1 8827868, 1729348, 0256180, 8998681, 5087923, 2425892 ####[facility] [address] [place] [address] Chloride [Moles/Vol] 108 mmol/L Normal 101-111 [facility] Comment on above: Performed By: #### 1 1056633, 1313836, 8476492, 2396638, 4558660, 4040700 ####[facility] [address] [place] [address] CO2 [Moles/Vol] 24 mmol/L Normal 21-31 [facility] Comment on above: Performed By: #### 1 0250731, 0454009, 7946021, 9860355, 2441690, 0849042 ####[facility] [address] [place] [address] Creatinine [Mass/Vol] 1.2 mg/dL Normal 0.5-1.3 [facility] Comment on above: Performed By: #### 1 2938878, 3685281, 1608398, 6782324, 0863989, 0527990 ####[facility] [address] [place] [address] Globulin (S) [Mass/Vol] 3.9 g/dL Normal 1.4-4.0 [facility] Comment on above: Performed By: #### 1 1563005, 6863486, 3523200, 3084167, 1597179, 8992277 ####[facility] [address] [place] [address] Glucose [Mass/Vol] 302 mg/dL High 55-199 [facility] Comment on above: Result Comment: If t his glucose result represents a fasting glucose, interpretation should refer to the following reference range: 55-99 mg/dL Performed By: #### 1 0468901, 7191268, 8500091, 8318967, 0401197, 9392758 ####[facility] [address] [place] [address] Potassium [Moles/Vol] 4.6 mmol/L Normal 3.5-5.3 [facility] Comment on above: Performed By: #### 1 1329745, 3097290, 9062936, 5760401, 3416833, 3162667 ####[facility] [address] [place] [address] Protein [Mass/Vol] 7.4 g/dL Normal 6.0-7.8 [facility] Comment on above: Performed By: #### 1 7670868, 8403926, 1896220, 1336533, 0939804, 0144982 ####[facility] [address] [place] [address] Sodium [Moles/Vol] 139 mmol/L Normal 135-145 [facility] Comment on above: Performed By: #### 1 2939766, 5679023, 7464661, 7893946, 8489516, 6162284 ####[facility] [address] [place] [address] Urea nitrogen [Mass/Vol] 21 mg/dL Normal 5-21 [facility] Comment on above: Performed By: #### 1 0310287, 8098570, 5176039, 4662581, 7348125, 8985994 ####[facility] [address] [place] [address] Urea nitrogen/Creatinine [Mass ratio] 18 No Units Normal 10-20 [facility] Comment on above: Performed By: #### 1 9787017, 9758109, 3844090, 4728191, 5475407, 9920516 ####[facility] [address] [place] [address] Consent for Treatmenton 02-03 Consent for Treatment [id number]:127 Normal [facility] Folateon 03-02-2023 Folate [Mass/Vol] 14.7 ng/mL Normal >=6.7 [facility] Comment on above: Performed By: #### 1 7588656, 0377175, 0996381, 1711607, 9173807, 4186008 ####[facility] [address] [place] [address] HEMATOLOGYOrdered By: Jane Rasmussen on 03-02-2023 Erythrocyte distribution width (RBC) [Ratio] 15.5 % High 10.9 - 14.2 % [facility] Hematocrit (Bld) [Volume fraction] 29.4 % Low 37.7 - 49.0 % [facility] Hemoglobin (Bld) [Mass/Vol] 9.8 g/dL Low 13.5 - 17.5 gm/dL [facility] MCH (RBC) [Entitic mass] 28.4 pg Normal 27.0 - 34.0 pg [facility] MCHC (RBC) [Mass/Vol] 33.2 g/dL Normal 31.4 - 36.0 gm/dL [facility] MCV (RBC) [Entitic vol] 85.6 fL Normal 80.0 - 100.0 fL [facility] Platelet mean volume (Bld) [Entitic vol] 6.7 fL Normal 6.4 - 10.8 fL [facility] Platelets (Bld) [#/Vol] 272.0 E9/L Normal 150.0 - 500.0 E9/L [facility] RBC (Bld) [#/Vol] 3.4 E12/L Low 4.3 - 5.9 E12/L [facility] WBC corrected for nucl RBC Auto (Bld) [#/Vol] 9.3 E9/L Normal 4.0 - 11.0 E9/L [facility] Physician Orderon 03-02-2023 Physician Order [id number]#[id number]:127 Normal [facility] TSHon 03-02-2023 TSH Qn 9.87 m[IU]/L High 0.34-5.60 [facility] Comment on above: Performed By: #### 1 2354505, 1160979, 1249708, 1339570, 0557119, 4675011 ####[facility] [address] [place] [address] Vit B12on 03-02-2023 Cobalamin (Vitamin B12) [Mass/Vol] 265 pg/mL Normal 50-1500 [facility] Comment on above: Performed By: #### 1 6871811, 0747984, 6449671, 6667416, 7967174, 5874185 ####[facility] [address] [place] [address] eGFRon 03-02-2023 GFR/1.73 sq M.predicted among non-blacks MDRD (S/P/Bld) [Vol rate/Area] 63 mL/min/1.73 m2 Normal >=59 [facility] Comment on above: Order Comment: Order added by Discern Expert. Result Comment: Shactor Helper laisha kidney disease could be indicated at eGFR's of less than 60 mL/min/1.73m2. Kidney failure is indicated at less than 15 mL/min/1.73m2. Performed By: #### 1 7938730, 5837229, 2306826, 7566524, 7496794, 7399791 ####[facility] [address] [place] [address] Physician Orderon 02-26-2023 Physician Order [id number]:127 Normal [facility] Physician Orderon 02-23-2023 Physician Order [id number]#[id number]:127 Normal [facility] Office Visiton 02-20-2023 Follow-up visit [id number] Daniel Chambers 1950 Date Provider Department Center 02/20/2023 KEISHA STOUT [facility] CS None No family history on file Level of Service:31650 OK OFFICE/OUTPATIENT NEW MODERATE MDM 45-59 MINUTES Reason for Visit and Comments: Memory Loss [66] Normal [facility] Progress Noteon 02-20-2023 Progress Note [facility] [address] [facility] [address] Dept: [phone] Dept Loc: [phone] Visit type: [facility] Initial Assessment Visit Date: 02/21/2023 Reason for Visit: Memory Loss Assessment and Plan 1. Memory loss - CBC - Comprehensive metabolic panel - Vitamin B12 - Folate - TSH - CT head wo IV contrast 2. Parkinsonism, unspecified Parkinsonism type 3. Bipolar disorder, in partial remission, most recent episode mixed (CMS/HCC) (HCC) 4. Polypharmacy - Mental status change with cognitive deficits in the following areas: Visuospatial/executive function, attention, language, delayed recall (MIS 10), orientation which have been slowly progressive over time with subsequent impairment in function. History and exam are concerning for Mild to moderate stage unspecified dementia. ? LB component to memory loss given fluctuating cognition, parkinson's symptoms. Have ordered labs and head CT to complete the assessment. Will review results at the Family Summary Conference. Bipolar disorder- Mood is not well controlled at this time. Suspect multifactorial- from medication adjustments +/- memory issues +/- lack of independence. Defer to psychiatrist for medication adjustment. Pt is frustrated with the lack of communication between his current psychiatrist and movement specialist. Re-establishing with previous psychiatrist in April. Parkinsonism- Unclear if due to LBD, chronic antipsychotics for bipolar, or primary Parkinson's disease. Continue Sinemet at current dose. Follows with movement specialist currently. Polypharmacy- Pt interested in decreasing medication burden. Will discuss in more detail at [facility] with pt and family. Follow up in about 4 weeks (around 03/20/2023) for virtual summary visit. Subjective HPI: José Luis Faulkner is a 72 y.o. male who presents to the [facility] for a comprehensive geriatric assessment. The patient is new to me. Referred to office for dementia. Paper records given to me for pt's visit today. Last seen by Dr. Baker? on 11/21/22. PMH: Afib s/p AICD, DM2, HTN, HLD, hypothyroidism, bipolar disorder (on Abilify x 12 years), parkinsonism, RLS, JASMIN, stage 3B CKD, Vtach (paroxysmal), COPD, anemia, charcot arthritis of left foot, GERD, anxiety, OA L knee, chronic osteomyelitis left foot (MSSA), CHF, urinary retention, previous LAWANDA, h/o ND, bladder cancer- stage 0, chronic diarrhea Pt having worsening tremor despite lowering Abilify dose, responded to Sinemet so suspect underlying Parkinson's disease. Less likely DLB since he isn't having visual hallucinations (though possibly treated with Abilify). Diagnosed with moderate dementia by Neuro in the past. H/o abrupt onset L-sided facial droop and slurred speech but never went to ED. Fluctuating BP readings. Referred to Stroke neurologist. Sinemet increased to 25-100 mg 1.5 tabs TID (7am- 11am- 3pm- 7pm) Continue working with Dr. Massey (psychiatrist) to lower Abilify or wean off if possible. Recommend against driving due to dementia. History obtained from caregiver(s): Pt is here with cousins Raza and Christian. They defer to pt's daughter for questions re: memory concerns and functional deficits. Call to daughter Stephanie today. Short term memory loss: Examples of difficulties patient is experiencing: - Pt does not drive, doctor told him he couldn't drive anymore, happened around the time that he was having issues with foot infection, no specific driving incidents - Dtr Tamara helps pt with his appointments, was having trouble remembering things discussed in appointments - Repetitive with questions, forgets within a few hours but other times he is sharp - Forgets important dates/milestones, like his son's birthday - At times he forgets that he has a young grandson, dtr had to remind him that she had a baby, this is an extreme example of pt's memory issues per dtr - Gets disoriented with dates, sometimes doesn't know the right year - More confused when he's sick - More anxious at times, not sure if it's due to bipolar medications being changed or part of his dementia Severity (as seen by the provider based on caregiver history): mild, Duration- symptoms started over last 3-4 years, Timing- slowly progressive, all day everyday, no difference whether morning or night, fluctuates but most of the time he has some element of forgetfulness, Context- (give details of any yes answers) history of stroke- No, incident of mouth droop and one-sided weakness that happened last summer, went to ED but wasn't able to undergo MRI due to his defibrillator, unknown if he's ever had a stroke, drooping/weakness is more pronounced at times, was referred to a stroke doctor in [place] but doesn't want to go history of head trauma- No, history of seizures- No, history of toxin exposures- No, history o (more content not included)... Normal [facility] Progress Note [facility] Social History Present at visit: patient, on phone- daughter Stephanie Marital status: Children: 2 children (both local) Living arrangement: with spouse, with daughter's family, own home Household safety problems: leaves water running, some falls Concerning Behaviors: Hallucinations when he is in hospital Wandering potential: No Pets: Yes, 2 dogs, 4 cats- daughter cares for pets Guns in the home: None Elder abuse: At Risk, has given out information over the phone, never got scammed Alcohol/Tobacco/Marijuana/D rug Use History: none service: Neither pt or spouse/partner Highest level of education: college 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 Activities: rides scooter outside, visits grandson/family, watches tv/movies/sports, goes to car shows with cousin Exercise: none Finances: has adequate savings, gets Social Security income, assisted Healthcare Power of Industrial Servicer: Yes: spouse- Alicia, then daughter Stephanie Financial Power of Industrial Servicer: Yes: spouse- Alicia, then daughter Stephanie Living Will: Yes Guardian: No Code Status: Full Code Primary Caregiver: daughter Stephanie Current care plan/supervision: family is with patient 24 hours Community resources: None Caregiver stressors: daughter denies too much stress Goals for care: evaluate memory As a Caregiver, What Matters Most to You: Disease education >>02/20/23 Patient and live in home with daughter and family. Daughter is main caregiver and providing much care for patient. He is having memory issues but also has many other medical issues that could be contributing factors. Functional Status (I: Independent, A: Assisted, D: Dependent) ADLs I A D Notes Bathing [] [x] [] Daughter assists patient with bathing, mostly helping in/out Dressing [] [x] [] Daughter assists with dressing Toileting [] [x] [] Some urinary incontinence, uses Depends, some bowel accidents, needs some help with clean up if bowel accident Transfers [] [x] [] Needs some help up/down- has lift chair Feeding [x] [] [] No issues Ambulation [] [x] [] Uses cane or walker Assistive devices: Bedside Commode, Cane, Electric Scooter, Grab bars, Hearing aids, Lift chair, Rollator, Shower chair, Walker, and Wheelchair IADLs I A D Telephone [] [x] [] Can call and answer the phone, family sets up appointments, needs reminders Transportation [] [] [x] Driving safety concerns: Not currently driving, Primary Care Physician told patient not to drive Shopping [] [] [x] Daughter shops Meal prep [] [] [x] Spouse or daughter puts food in front of him Housework [] [] [x] Daughter cleans Medications [] [] [x] Daughter sets up pill box, spouse/daughter reminds, sometimes administers, daughter manages his insulin Finances [] [x] [] Spouse pays bills (always has), patient can use debit card but not using much Educational materials will be provided at next visit: Memory/Cognitive Ability Alzheimer's [employer] info/hotline 10 Tips to Keeping Independent Memory Tips (mild) 5Ms Dealing with Dementia 10 Ways to Love Your Brain Exercise/Activities Exercise Age Page Communication/Behaviors Communication - All Stages Communication Tips Redirecting Community Programs Papa Pals Diet Healthy Nutrition for Older Adults - [facility] Injury Prevention/Home Safety [facility] Home Safety Checklist [facility] Mobility for Adults Falls Prevention Conversation Guide for Caregivers Medications Medication Safety/Dispensers Sleep Getting a Good Night's Sleep ([facility]) Sleep Hygiene Personal Care Personal Care Tips Bathing Tips [address] 02-16-2023 36 Scheduled 02/20/2023. [address] 02-15-2023 36 Name of Caller: Eduard burns Contact Reason for Appointment: New Patient Office Name: [facility] Services Medication Refills need, if any: na Medication Name: Na [facility] Consent for Treatmenton 02-02 Consent for Treatment [id number]:127 [facility] UroVysion Fish and Urine Cyt o ([facility])on 02-06-2023 UVFISH & UC Revision Information Invalid Interpretation Code [facility] Comment on above: Result Comment: Urszula ection Reason -[ Buddy Dawn, 02/06/23 - 08:01 ] Corrected report issued to update PMS/PWS. The diagnosis remains unchanged.Correction Notes - Performed By: #### 1 [id number] ####[facility] [address] [place] [address] Consent for Procedure/Surger yon 01-16-2023 Consent for Procedure/Surgery [id number]#[id number]:127 [facility] Consent for Treatmenton 01-02 Consent for Treatment [id number]:127 Normal [facility] IntraOperative Documentson 0 01-16-2023 IntraOperative Documents [id number]#[id number]:127 Normal [facility] Main OR Intraoperative Recor don 01-16-2023 Main OR Intraoperative Record Normal [facility] Main OR Preoperative Recordo n 01-16-2023 Main OR Preoperative Record Normal [facility] Operative Reporton Operative Report Normal [facility] Comment on above: Result Comment: Elec tronically Signed By: CHAZ BROUSSARD, Andi Huertas.br\Date and Time Signed: 01/16/23 10:39 EDT Outpatient Surgery Discharge Instructionon 01-16-2023 Outpatient Surgery Discharge Instruction [id number]:127 Normal [facility] Patient Educationon 01-17-20 Patient Education Normal [facility] UroVysion Fish and Urine Cyt o ([facility])on 01-16-2023 [facility] Method of Extraction Cystoscopy Normal [facility] Comment on above: Performed By: #### 1 [id number] ####[facility] [address] [place] [address] [facility] Number of Jars 1 Invalid Interpretation Code [facility] Comment on above: Performed By: #### 1 [id number] ####[facility] [address] [place] [address] [facility] Specimen Cystoscopy Normal [facility] Comment on above: Performed By: #### 1 [id number] ####[facility] [address] [place] [address] [facility] Type of Service Technical Only Normal [facility] Comment on above: Performed By: #### 1 [id number] ####[facility] [address] [place] [address] CT Abdomen/Pelvis w/ Contras ton 12-13-2022 CT Abdomen/Pelvis w/ Contrast Normal [facility] Consent for Treatmenton 12-02 Consent for Treatment [id number]#[id number]:127 Normal [facility] Pre-Certification Formon Pre-Certification Form [id number]#[id number]:127 Normal [facility] C Urineon 11-26-2022 Bacteria identified Cx Nom (U) Normal [facility] Comment on above: Performed By: #### 2 [id number] ####[facility] [address] [place] [address] BUNon 11-24-2022 Urea nitrogen [Mass/Vol] 32 mg/dL High 5-21 [facility] Comment on above: Performed By: #### 2 [id number] ####[facility] [address] [place] [address] CHEMISTRYOrdered By: SYSTEM SYSTEM on 11-24-2022 Creatinine [Mass/Vol] 1.3 mg/dL Normal 0.5 - 1.3 mg/dL [facility] Remisol GFR/1.73 sq M.predicted among non-blacks MDRD (S/P/Bld) [Vol rate/Area] 58 mL/min/1.73 m2 Low >=59mL/min /1.73 m2 [facility] Chem S Urea nitrogen [Mass/Vol] 32 mg/dL High 5 - 21 mg/dL [facility] Remisol Consent for Treatmenton 11-03 Consent for Treatment [id number]:127 Normal [facility] Creatinineon 11-24-2022 Creatinine [Mass/Vol] 1.3 mg/dL Normal 0.5-1.3 [facility] Comment on above: Performed By: #### 2 [id number], [id number] ####[facility] [address] [place] [address] eGFRon 11-24-2022 GFR/1.73 sq M.predicted among non-blacks MDRD (S/P/Bld) [Vol rate/Area] 58 mL/min/1.73 m2 Low >=59 [facility] Comment on above: Order Comment: Order added by Discern Expert. Result Comment: Shactor Helper laisha kidney disease could be indicated at eGFR's of less than 60 mL/min/1.73m2. Kidney failure is indicated at less than 15 mL/min/1.73m2. Performed By: #### 2 [id number] ####[facility] [address] [place] [address] Office Visit (Neuro-Movement )on 11-20-2022 Follow-up visit Chief Complaint fuv Adult Risk Screening Initial Fall Risk Screening: JOSÉ LUIS has fallen in the last 6 months. Pain Scale: On a scale of 0 to 10, the patient rates the pain at 5. Tobacco Screening: Has not used tobacco in the past 6 months. Has not tried to quit or thought about quitting tobacco. Depression/Suicide Screening: He does not have a risk of suicide. He has not had thoughts of harming others. Active Problems Problems Abnormal involuntary movements (781.0) (R25.9) AICD (automatic cardioverter/defibrillator) present (V45.02) (Z95.810) Atherosclerosis of coronary artery bypass graft of ass[place] sioux heart without angina pectoris (414.05) (I25.810) Class 1 obesity with body mass index (BMI) of 32.0 to 32.9 in adult (278.00,V85.32) (E66.9,Z68.32) COPD (chronic obstructive pulmonary disease) (496) (J44.9) Diabetes mellitus (250.00) (E11.9) Former smoker (V15.82) (Z87.891) QUIT 11/2001 High risk medication use (V58.69) (Z79.899) History of manic depressive disorder (V11.1) (Z86.59) Hypertension, essential, benign (401.1) (I10) Hypothyroidism, adult (244.9) (E03.9) Ischemic cardiomyopathy (414.8) (I25.5) Mixed hyperlipidemia (272.2) (E78.2) Obstructive sleep apnea, adult (327.23) (G47.33) Paroxysmal atrial fibrillation (427.31) (I48.0) Risk for falls (V15.88) (Z91.81) RLS (restless legs syndrome) (333.94) (G25.81) S/P CABG (coronary artery bypass graft) (V45.81) (Z95.1) S/P PTCA (percutaneous transluminal coronary angioplasty) (V45.82) (Z98.61) Stage 3b chronic kidney disease (585.3) (N18.32) Ventricular tachycardia (paroxysmal) (427.1) (I47.29) Past Medical History Problems History of Abnormal stress test (794.39) (R94.39) Resolved Date: 29 Jun 2021 History of angina pectoris (V12.59) (Z86.79) Resolved Date: 29 Jun 2021 History of atrial flutter (V12.59) (Z86.79) Resolved Date: 05 May 2021 History of hyperkalemia (V12.29) (Z86.39) Resolved Date: 22 Sep 2022 History of Parkinsonism (332.0) (G20) Resolved Date: 22 Sep 2022 Surgical History Problems History of Bladder surgery History of Cardiac catheterization History of Cataract surgery History of Complete colonoscopy Managed By: Guzman Will DO History of Coronary artery bypass graft History of Foot arthrodesis History of Foot surgery LEFT FOOT RECON History of Mastoidectomy History of Pacemaker insertion History of PICC line insertion Family History Mother No pertinent family history Father No pertinent family history Sister Family history of valvular heart disease (V17.49) (Z82.49) Brother No pertinent family history Social History Problems Daily caffeine consumption, 2-3 servings a day YETTI CUP OF COFFEE DAILY, PROTIEN SHAKE WITH COFFEE Former smoker (V15.82) (Z87.891) QUIT 11/2001 No alcohol use No illicit drug use Allergies Medication No Known Drug Allergies Recorded By: Angelina Hoover; 02/28/2021 3:09:25 PM Current Meds Medication NameInstruction Albuterol Sulfate HFA 108 (90 Base) MCG/ACT Inhalation Aerosol SolutionINHALE 2 PUFFS BY MOUTH EVERY 4 HOURS NEEDED Amiodarone HCl - 200 MG Oral TabletTAKE 1.5 TABLET Daily amLODIPine Besylate 5 MG Oral TabletTAKE 1 TABLET BY MOUTH EVERY DAY Amoxicillin 500 MG Oral CapsuleTake 1 capsule twice daily Anoro Ellipta 62.5-25 MCG/INH AEPBas directed ARIPiprazole 10 MG Oral TabletTAKE 1 TABLET DAILY. Atorvastatin Calcium 80 MG Oral Tablettake 1 tablet by mouth at bedtime Carbidopa-Levodopa 25-100 MG Oral TabletTAKE 1.5 TABLET 3 times daily Carvedilol 25 MG Oral TabletTAKE 1 TABLET TWICE DAILY. CoQ10 100 MG Oral CapsuleTAKE 1 CAPSULE Daily Eliquis 5 MG Oral TabletTAKE ONE TABLET TWO TIMES DAILY Enalapril Maleate 10 MG Oral TabletTake 1 tablet twice daily Flaxseed Oil 1000 MG Oral CapsuleTAKE 1 CAPSULE Daily Flomax 0.4 MG Oral Capsule (Tamsulosin HCl)TAKE 1 CAPSULE Daily Flonase 50 MCG/ACT SUSP (Fluticasone Propionate)USE DIRECTED. Florastor CAPSTAKE 1 CAPSULE TWICE DAILY. Glimepiride 2 MG Oral TabletTAKE 1 TABLET BY MOUTH TWICE DAILY HumaLOG 100 UNIT/ML Subcutaneous Solution CartridgeUSE DIRECTED. Imodium 2 MG CAPS (Loperamide HCl)TAKE 1 CAPSULE Daily prn Isosorbide Mononitrate ER 60 MG Oral Tablet Extended Release 24 HourTAKE 1 TABLET Daily Jardiance 10 MG Oral TabletTAKE 1 TABLET BY MOUTH ONCE DAILY lamoTRIgine 200 MG Oral TabletTAKE 1 TABLET DAILY. Levothyroxine Sodium 150 MCG Oral CapsuleTAKE 1 CAPSULE BY MOUTH EVERY MORNING BEFORE BREAKFAST ON EMPTY STOMACH Magnesium Oxide 400 MG Oral TabletTAKE 1 TABLET DAILY. metFORMIN HCl - 1000 MG Oral TabletTAKE 1 TABLET BY MOUTH TWICE DAILY WITH MEALS Multi-Vitamin Gummies CHEWTAKE 2 TABLET Daily Nitroglycerin 0.4 [address] Tablet SublingualPL[address] 1 TABLET UNDER THE TONGUE EVERY 5 MINUTES FOR UP TO 3 DOSES NEEDED FOR CHEST PAIN.CALL 911 IF PAIN PERSISTS. NovoLIN N ReliOn 100 UNIT/ML Subcutaneous SuspensionUSE DIRECTED. Pant (more content not included)... Normal [facility] Follow-up visit Provider Impressions Venkatesh Gil is a 71 year old right-handed male with a history of atrial fibrillation s/p AICD, T2DM, HTN, HLD, hypothyroidism, and bipolar disorder (on Abilify x12 years), who presents for follow up of parkinsonism. Though DaTscan was read as negative, possibly less uptake in the left side. We discussed that this could also be false negative. He continues to have some worsening of tremor despite further lowering Abilify dose and has responded to carbidopa/levodopa, so we still suspect underlying Parkinson's disease. Less likely DLB as he denies VH (though possibly treated with Abilify). He continues to work with his psychiatrist Dr. Massey to lower the dose of Abilify slowly and has remained stable in terms of mood symptoms. For memory, we would like to obtain records from his Neurologist Dr. Martinez as his daughter reports he has had memory testing including MoCA when he was diagnosed with moderate dementia. Report from CT head in October 2021 was previously reviewed, and notes small chronic white matter changes bilaterally. We may consider starting medication for memory at the next visit (will hold off until we get records). The abrupt onset of left-sided facial droop and slurred speech is concerning for possible stroke. He had been advised to go to the ED at the time of symptom onset, but he declined. He has since had fluctuating symptoms which could be blood pressure related (has checked BP during episodes which was about 120 systolic) or metabolic causing recrudescence of symptoms. We will place a referral for Stroke neurologist for evaluation. He is unable to have MRI due to pacemaker. PLAN - Increase carbidopa/levodopa 25-100 mg to 1.5 tabs 4 times daily (7 am - 11 am - 3 pm - 7 pm) - Referral to Stroke neurologist - An important part of the treatment is exercise. We recommend 20-30 minutes of moderate to high intensity cardiovascular exercise at least 3 times per week. Stationary bike can be considered if you have pain or balance issues. - We recommend against driving due to dementia - Follow up in 4 months Patient Discussion/Summary Thank you for your visit today. You were seen by Dr. Clinton and Dr. Mcginnis. The DaTscan was read by radiology as normal, though it is possible that this was a false negative. We still think Parkinson's disease is most likely. We would like to try increasing your carbidopa/levodopa to 1.5 tabs 4 times per day. Continue working with Dr. Massey to lower Abilify or wean off if possible. For the left-sided facial droop and slurred speech that you had, we recommend that you see a stroke doctor as we suspect this might have been due to a stroke. PLAN - Increase carbidopa/levodopa 25-100 mg to 1.5 tabs 4 times daily (7 am - 11 am - 3 pm - 7 pm) - Referral to Stroke neurologist - An important part of the treatment is exercise. We recommend 20-30 minutes of moderate to high intensity cardiovascular exercise at least 3 times per week. Stationary bike can be considered if you have pain or balance issues. - We recommend against driving due to dementia - Follow up in 4 months Attending Note I saw and evaluated the patient. I personally obtained the tay and critical portions of the history and physical exam or was physically present for tay and critical portions performed by the trainee. I reviewed the trainee's documentation and discussed the patient with the trainee. I agree with the trainee's medical decision making, as documented on the trainee's note. Comments/Additional Findings: Parkinsonism - likely partly drug induced, but response to levodopa, and asymmetry on exam argues for IPD as well. Justen scan read as negative, but looks like slightly reduced in putamen on personal review. Had spoken to daughter over weekend in past due to sudden onset facial droop and slurring of speech - advised ED - pt declined. advised again that should go to ed. Plan as listed above. For the Evaluation and Management of this patient, the level of Medical Decision Making for this visit was determined based on the following: The level of COMPLEXITY AND NUMBER OF PROBLEMS ADDRESSED was [ MODERATE,] as determined by: MODERATE: one chronic illnesses with exacerbation, progression or side effect of Rx. The AMOUNT/COMPLEXITY OF DATA TO REVIEW (reviewed, ordered or call for) was [, LIMITED] as determined by: LIMITED: my review of unique test results. The level of RISK OF COMPLICATIONS was [, MODERATE,] as determined by: MODERATE: prescription drug management. Thus, the level of medical decision making (based on the lower of the two highest elements) was determined to be , MODERATE,]. Therefore the appropriate E/M code for this encounter is /91869,. Diagnoses/Problems Assessed Transient neurological symptoms (781.99) (R29.818) Parkinsonism (332.0) (G20) Orders Parkinsonism Renew: Carbidopa-Levodopa 25-100 MG Oral Tablet; TAKE 1.5 TABLET 4 times daily Transient neurological symptoms Neurolo (more content not included)... Normal [facility] Consent for Treatmenton Consent for Treatment [id number]#1.00CD:127 Normal [facility] Office Visit (Cardiology)on 09-22-2022 Follow-up visit Diagnoses/Problems Assessed Diabetes mellitus (250.00) (E11.9) COPD (chronic obstructive pulmonary disease) (496) (J44.9) Ventricular tachycardia (paroxysmal) (427.1) (I47.29) Stage 3b chronic kidney disease (585.3) (N18.32) Paroxysmal atrial fibrillation (427.31) (I48.0) S/P CABG (coronary artery bypass graft) (V45.81) (Z95.1) S/P PTCA (percutaneous transluminal coronary angioplasty) (V45.82) (Z98.61) Obstructive sleep apnea, adult (327.23) (G47.33) Mixed hyperlipidemia (272.2) (E78.2) Ischemic cardiomyopathy (414.8) (I25.5) Hypothyroidism, adult (244.9) (E03.9) Hypertension, essential, benign (401.1) (I10) History of manic depressive disorder (V11.1) (Z86.59) High risk medication use (V58.69) (Z79.899) AICD (automatic cardioverter/defibrillator) present (V45.02) (Z95.810) Atherosclerosis of coronary artery bypass graft of ass[place] and sioux heart without angina pectoris (414.05) (I25.810) Class 1 obesity with body mass index (BMI) of 32.0 to 32.9 in adult (278.00,V85.32) (E66.9,Z68.32) Former smoker (V15.82) (Z87.891) QUIT 11/2001 Abnormal involuntary movements (781.0) (R25.9) Orders Class 1 obesity with body mass index (BMI) of 32.0 to 32.9 in adult Healthy Weight Tips; Status:Complete - Retrospective Authorization; Done: 22Sep2022 Some eating tips that can help you lose weight.; Status:Complete - Retrospective Authorization; Done: 22Sep2022 Diabetes mellitus, Ischemic cardiomyopathy Start: Jardiance 10 MG Oral Tablet; TAKE 1 TABLET BY MOUTH ONCE DAILY Hypertension, essential, benign Renew: amLODIPine Besylate 5 MG Oral Tablet; TAKE 1 TABLET BY MOUTH EVERY DAY Hypothyroidism, adult Renew: Levothyroxine Sodium 150 MCG Oral Capsule; TAKE 1 CAPSULE BY MOUTH EVERY MORNING BEFORE BREAKFAST ON EMPTY STOMACH SocHx: Former smoker Tobacco Use Screening; Status:Complete; Done: [id number] Ventricular tachycardia (paroxysmal) IO EKG Electrocardiogram- 12 Lead; Status:Complete; Done: [id number] Patient Instructions Please bring all medicines, vitamins, and herbal supplements with you when you come to the office. Prescriptions will not be filled unless you are compliant with your follow up appointments or have a follow up appointment scheduled as per instruction of your physician. Refills should be requested at the time of your visit. Amiodarone follow up as directed Follow up in 6-7 months Device check as directed per [facility] protocol Chief Complaint JOSÉ LUIS GIL is being seen for a 6 month follow-up of. Patient is in the office for follow-up for the problems noted below accompanied by his . He was seen by neurology recently and imaging studies revealed no indication of Parkinson's disease but he does have significant tremor in the right upper extremity. The patient has uncontrolled diabetes managed by his PCP. I suggested starting Jardiance if he can afford it 10 mg daily. His device in the pacemaker clinic evaluation was unremarkable he has AICD in place. EKG today confirmed atrial pacemaker rhythm. He is on amiodarone therapy with no ventricular or atrial arrhythmias amiodarone testing has been in place. He does have hyperlipidemia under control and his blood pressure is under control as well. He has no angina orthopnea PND or lower extremity edema. He is ambulating independently using a walker. Has not needed nitroglycerin use lately. ASSESSMENT AND PLAN: 1. Severe coronary artery disease, status post bypass surgery in the remote past, cardiac catheterization May 2021 revealed patent ZAVALA and 2 other vein grafts, the last graft was occluded but there was excellent collaterals. Medical therapy was recommended. We will continue aggressive risk factor management for CAD continue nitrates 2. ischemic cardiomyopathy stage C, functional class II NYHA for CHF, ejection fraction February 2022 was 50-55% significantly better from before, continue Coreg, enalapril and Aldactone 4. AICD in place for primary prevention purposes, being monitored in the Pacemaker Clinic. 5. Diabetes, managed by PCP. A1c is still above target. I suggested adding Jardiance 10 mg daily if he can afford it. 6. Hyperlipidemia, on medical therapy, under control. 7. Hypothyroidism, on replacement therapy. Under control 8. Sleep apnea on CPAP machine. 9. Right upper extremity tremor evaluated by neurology was felt not to be Parkinson's and may be related to his bipolar disorder medication which has been weaned off gradually 10. History of ventricular tachycardia with no recurrent events, currently on amiodarone therapy 11. Paroxysmal atrial fibrillation, currently his EKG showed atrial pacemaker rhythm he is on amiodarone. We will continue Eliquis and amiodarone therapy. We will continue amiodarone surveillance testing 12. COPD stable 13. 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 Obesity, patient was encouraged to reduce caloric consumption especially from snacks 15. High risk medication with (more content not included)... Normal [facility] Tobacco Screening.on 023 Adult depression screening assessment No [facility] shopp 600 DO Work Phone: Fall risk assessment a) No falls within the last year [facility]ista 600 DO Work Phone: Tobacco use status [facility] b) No [facility] sho[address] 600 DO Work Phone: DATSCAN INJECTIONon 08-31-19 23 DATSCAN INJECTION Patient Name: JOSÉ LUIS GIL STUDY: DATSCAN INJECTION; DATSCAN IOFLUPANE IODINE 123; 08/30/2022 2:43 pm INDICATION: right rest tremor, asymmetric rigidity and bradykinesia. on Abilify, parkinson's disease vs drug-induced parkinsonism G20: Parkinsonism. COMPARISON: None. ACCESSION NUMBER(S): [id number]; [id number] ORDERING CLINICIAN: FRANCISCO CLINTON TECHNIQUE: DIVISION OF NUCLEAR MEDICINE Iodine-123 ioflupane (DaTscan) Brain imaging with tomography (SPECT) The patient discontinued possibly interfering medications and received an oral thyroid-blocking agent to minimize thyroid radiopharmaceutical uptake. The patient received an intravenous dose of 4.5 millicuries (mCi) of Iodine-123 ioflupane and emission tomographic (SPECT) images of the brain were acquired at 4 hours and 4 minutes later for striatal dopamine transporter visualization. FINDINGS: There is a normal distribution of radiopharmaceutical activity within the caudate nuclei and putamina bilaterally. This normal pattern lowers the likelihood of a parkinsonian syndrome as a cause of tremor. IMPRESSION: 1. Normal brain I-123 ioflupane (DaTscan) study without evidence of Parkinsonian Syndrome. I personally reviewed the images/study and I agree with the findings as stated. This study was interpreted at [facility], [place], [place]. Electronically signed by: MIRZA TRINH MD Normal [facility] No Panel Informationon 08-30 FINAL REPORT Interpreted by: MIRZA TRINH MD and LUCILA RODRIGUEZ MD 08/30/22 14:54 Patient Name: JOSÉ LUIS GIL STUDY: DATSCAN INJECTION; DATSCAN IOFLUPANE IODINE 123; 08/30/2022 2:43 pm INDICATION: right rest tremor, asy Normal [facility] Work Phone: Office Visit (Neuro-Movement )on 07-31-2022 Follow-up visit Provider Impressions Venkatesh Gil is a 71 year old right-handed male with a history of atrial fibrillation s/p AICD, T2DM, HTN, HLD, hypothyroidism, and bipolar disorder (on Abilify), who presents for evaluation of parkinsonism. On exam, he has findings of asymmetric rest tremor (R>L), rigidity, bradykinesia (L>R), hypomimia, and shuffling gait with absent armswing bilaterally and FOG upon turns and initiation of gait. As his symptoms have progressed despite reduction in Abilify dose, we suspect that he has underlying Parkinson's disease. Less likely DLB as he denies VH (though possibly treated with Abilify), and he has fluctuating cognition. We would like to obtain records from his Neurologist Dr. Martinez as his daughter reports he has had memory testing including MoCA when he was diagnosed with moderate dementia. Report from CT head in October 2021 was reviewed, and notes small chronic white matter changes bilaterally. We may consider starting medication for memory at the next visit. At this time, we will focus on Parkinson's symptoms and increase carbidopa/levodopa. We have also ordered DaTscan to confirm IPD vs drug-induced parkinsonism. As they have been told conflicting information from their psychiatrist and neurologist regarding Abilify, they are interested in speaking with Dr. Jon on whether Abilify would be able to be stopped or whether he still requires this for prevention of manic episodes. PLAN - Increase carbidopa/levodopa 25-100 mg to 1.5 tabs 3 times daily - A referral has been placed to see Dr. Jon who a psychiatrist who frequently sees people with Parkinson's disease. - DaTscan to confirm diagnosis of Parkinson's disease vs drug-induced parkinsonism - Please sign record release form so that we can obtain records including MoCA (memory testing) from your Neurologist Dr. Martinez. - Follow up in 3-4 months Patient Discussion/Summary Thank you for your visit today. You were seen by Dr. Clinton and Dr. Mcginnis. You do have signs of parkinsonism on exam including the rest tremor in your right hand, muscle stiffness, slowed movements, and difficulty with gait and balance. The Abilify may cause some of these symptoms, but as your symptoms have continued to worsen despite reducing the dose of Abilify, we suspect that you have Parkinson's disease. We will obtain a DaTscan which can confirm a diagnosis of underlying Parkinson's disease. Due to fluctuating cognition, dementia with Lewy bodies is also a consideration, but this is considered less likely at this time. To help treat the parkinsonism, we recommend increasing the carbidopa/levodopa to 1.5 tabs 3 times daily. 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 The carbidopa/levodopa may help with the head tilt. For memory, next time we can consider adding a medication for memory. We will only make one change at a time. PLAN - Increase carbidopa/levodopa 25-100 mg to 1.5 tabs 3 times daily - A referral has been placed to see Dr. Jon who a psychiatrist who frequently sees people with Parkinson's disease. - DaTscan to confirm diagnosis of Parkinson's disease vs drug-induced parkinsonism - Please sign record release form so that we can obtain records including MoCA (memory testing) from your Neurologist Dr. Martinez. - Follow up in 3-4 months Attending Note I saw and evaluated the patient. I personally obtained the tay and critical portions of the history and physical exam or was physically present for tay and critical portions performed by the trainee. I reviewed the trainee's documentation and discussed the patient with the trainee. I agree with the trainee's medical decision making, as documented on the trainee's note. Comments/Additional Findings: Here for eval of parkinsonism - suspect neurodegenerative - PD vs DLB and also a contribution from drug induced parkinsonism. Plan as listed above. For the Evaluation and Management of this patient, the level of Medical Decision Making for this visit was determined based on the following: The level of COMPLEXITY AND NUMBER OF PROBLEMS ADDRESSED was [ MODERATE] as determined by: one chronic illnesses with exacerbation, progression or side effect of Rx. The AMOUNT/COMPLEXITY OF DATA TO REVIEW (reviewed, ordered or call for) was [, MODERATE, ] as determined by: MODERATE (need one of the three): my review of prior external notes and testing results as well as ordering a new unique test. The level of RISK OF COMPLICATIONS was [MODERATE,] as determined by: MODERATE: prescription drug management. Thus, the level of medical decision making (based on the lower of the two highest elements) was determined to be [, MODERATE,. Therefore the [place] [address] . Diagnoses/Problems Assessed Parkinsonism (332.0) (G20) Abnormal involuntary movements (781.0) (R25.9) RLS (restless legs syndrome) (333.94) (G25.81) Orders [employer]rosc[employer] (more content not included)... Normal [facility] Activated partial thrombopla stin time (aPTT) in platelet poor plasma by coagulation aOrdered By: Andi Ware on 07-25-2022 aPTT Coag (PPP) [Time] 29.6 s 25.1-36.5 [facility] Glucose Glucometer (BldC) [M ass/Vol]Ordered By: Andi Ware on 07-25-2022 Glucose [Mass/Vol] 194 mg/dL [facility] Comment on above: Random Glucose Refer ence Range is dependent on time and content of last meal. Glucose of more than 200 mg/dL in a nonstressed, ambulatory subject supports the diagnosis of Diabetes Mellitus. Laboratory - CoagulationOrde red By: Andi Ware on 07-25-2022 PT Coag (PPP) [Time] 11.4 s 9.0-12.9 [facility] No Panel InformationOrdered By: Andi Ware on 07-25-2022 Bedside Glucose Comment Glu2: cleaned meter [facility] Platelet poor plasma interna tional normalized ratio (INR) by coagulation assay (relatOrdered By: Andi Ware on 07-25-2022 INR Coag (PPP) [Relative time] 1.0 {INR} [facility] Comment on above: INR Therapeutic Rang e A) Pre- and Peroperative OAT started two weeks before surgery. NOT HIP SURGERY: 1.5 - 2.5 HIP SURGERY: 2 - 3B) Primary and secondary prevention of venous THROMBOSIS: 2 - 3C) Active venous thrombosis, pulmonary embolismand prevention of recurrent venous thrombosis: 2 - 3D) Prevention of arterial thromboembolismincluding patients with mechanical heart valves: 3 - 4.5 Activated partial thrombopla stin time (aPTT) in platelet poor plasma by coagulation aOrdered By: Andi Ware on 07-11-2022 aPTT Coag (PPP) [Time] 34.3 s 25.1-36.5 [facility] Basophils Auto (Bld) [#/Vol] Ordered By: Andi Ware on 07-11-2022 Basophils (Bld) [#/Vol] 0.1 10*3/uL 0.0-0.[address] [facility] Basophils/100 WBC Auto (Bld) Ordered By: Andi Ware on 07-11-2022 Basophils/100 WBC (Bld) 1.0 % . [facility] Creatinine and Glomerular fi ltration rate.predicted panel (S/P/Bld)Ordered By: Andi Ware on 07-11-2022 Creatinine [Mass/Vol] 1.55 mg/dL 0.64-1.27 [facility] Eosinophils Auto (Bld) [#/Vo l]Ordered By: Andi Ware on 07-11-2022 Eosinophils (Bld) [#/Vol] 0.2 10*3/uL 0.0-0.[address] [facility] Eosinophils/100 WBC Auto (Bl d)Ordered By: Andi Ware on 07-11-2022 Eosinophils/100 WBC (Bld) 2.9 % . [facility] Erythrocyte distribution wid th Auto (RBC) [Ratio]Ordered By: Andi Ware on 07-11-2022 Erythrocyte distribution width (RBC) [Ratio] 16.3 % 12.0-14.[address] [facility] Estimated glomerular filtrat ion rate (GFR) non- AmericanOrdered By: Andi Ware on 07-11-2022 GFR/1.73 sq M.predicted among non-blacks MDRD (S/P/Bld) [Vol rate/Area] 44 mL/Min [facility] Hematocrit Auto (Bld) [Volum e fraction]Ordered By: Andi Ware on 07-11-2022 Hematocrit (Bld) [Volume fraction] 32.9 % 38.8-50.[address] [facility] Hemoglobin [Mass/volume] in BloodOrdered By: Andi Ware on 07-11-2022 Hemoglobin (Bld) [Mass/Vol] 10.8 g/dL 13.0-17.[address] [facility] Laboratory - CoagulationOrde red By: Andi Ware on 07-11-2022 PT Coag (PPP) [Time] 14.1 s 9.0-12.9 [facility] Leukocytes [#/volume] correc [place] for nucleated erythrocytes in Blood by Automated counOrdered By: Andi Ware on 07-11-2022 WBC corrected for nucl RBC Auto (Bld) [#/Vol] 8.2 10*3/uL 4.1-10.[address] [facility] Lymphocytes Auto (Bld) [#/Vo l]Ordered By: Andi Ware on 07-11-2022 Lymphocytes (Bld) [#/Vol] 1.6 10*3/uL 1.00-4.[address] [facility] Lymphocytes/100 WBC Auto (Bl d)Ordered By: Andi Ware on 07-11-2022 Lymphocytes/100 WBC (Bld) 19.4 % . [facility] MCH Auto (RBC) [Entitic mass ]Ordered By: Andi Ware on 07-11-2022 MCH (RBC) [Entitic mass] 27.1 pg 27.5-35.[address] [facility] MCHC Auto (RBC) [Mass/Vol]Or dered By: Andi Ware on 07-11-2022 MCHC (RBC) [Mass/Vol] 32.7 g/dL 32.5-35.6 [facility] MCV Auto (RBC) [Entitic vol] Ordered By: Andi Ware on 07-11-2022 MCV (RBC) [Entitic vol] 83.1 fL 83.5-[address] [facility] Monocytes Auto (Bld) [#/Vol] Ordered By: Andi Ware on 07-11-2022 Monocytes (Bld) [#/Vol] 0.6 10*3/uL 0.0-0.[address] [facility] Monocytes/100 WBC Auto (Bld) Ordered By: Andi Ware on 07-11-2022 Monocytes/100 WBC (Bld) 7.3 % . [facility] Neutrophils Auto (Bld) [#/Vo l]Ordered By: Andi Ware on 07-11-2022 Neutrophils (Bld) [#/Vol] 5.7 10*3/uL 1.8-7.[address] [facility] Neutrophils/100 WBC Auto (Bl d)Ordered By: Andi Ware on 07-11-2022 Neutrophils/100 WBC (Bld) 69.4 % . [facility] No Panel InformationOrdered By: Andi Ware on 07-11-2022 Estimated GFR () 53 mL/Min [facility] Comment on above: GFR estimated refere nce range: According to KDOQI guidelines, <60 ml/min/1.73m2 is sufficient to diagnose a patient with chronic kidney disease. Pharmacy Creatinine Clearance (Chem N/A [facility] Nucleated erythrocytes [Pres ence] in Blood by Automated countOrdered By: Andi Ware on 07-11-2022 Nucleated RBC Auto Ql (Bld) 0.1 /100{WBC} 0-0.[address] [facility] Platelet mean volume Auto (B ld) [Entitic vol]Ordered By: Andi Ware on 07-11-2022 Platelet mean volume (Bld) [Entitic vol] 6.9 fL 6.6-10.[address] [facility] Platelet poor plasma interna tional normalized ratio (INR) by coagulation assay (relatOrdered By: Andi Ware on 07-11-2022 INR Coag (PPP) [Relative time] 1.2 {INR} [facility] Comment on above: INR Therapeutic Rang e A) Pre- and Peroperative OAT started two weeks before surgery. NOT HIP SURGERY: 1.5 - 2.5 HIP SURGERY: 2 - 3B) Primary and secondary prevention of venous THROMBOSIS: 2 - 3C) Active venous thrombosis, pulmonary embolismand prevention of recurrent venous thrombosis: 2 - 3D) Prevention of arterial thromboembolismincluding patients with mechanical heart valves: 3 - 4.5 Platelets Auto (Bld) [#/Vol] Ordered By: Andi Ware on 07-11-2022 Platelets (Bld) [#/Vol] 286 10*3/uL 150-[address] [facility] RBC Auto (Bld) [#/Vol]Ordere d By: Andi Ware on 07-11-2022 RBC (Bld) [#/Vol] 3.97 10*6/uL 3.90-5.60 [facility] Serum or plasma anion gap de terminationOrdered By: Andi Ware on 07-11-2022 Anion gap [Moles/Vol] 16.4 mmol/L 6.0-15.0 [facility] Serum or plasma calcium hakan urement (mass/volume)Ordered By: Andi Ware on 07-11-2022 Calcium [Mass/Vol] 9.0 mg/dL 8.2-10.2 [facility] Serum or plasma chloride akbar surement (moles/volume)Ordered By: Andi Waer on 07-11-2022 Chloride [Moles/Vol] 100 mmol/L 95-114 [facility] Serum or plasma glucose hakan urement (mass/volume)Ordered By: Andi Ware on 07-11-2022 Glucose [Mass/Vol] 176 mg/dL 70-100 [facility] Comment on above: ADA recommended refe rence rangeRandom Glucose Reference Range is dependent on time and content of last meal. Glucose of more than 200 mg/dL in a nonstressed, ambulatory subject supports the diagnosis of Diabetes Mellitus. Serum or plasma potassium me asurement (moles/volume)Ordered By: Andi Ware on 07-11-2022 Potassium [Moles/Vol] 4.6 mmol/L 3.5-5.1 [facility] Serum or plasma sodium measu rement (moles/volume)Ordered By: Andi Ware on 07-11-2022 Sodium [Moles/Vol] 136 mmol/L 136-146 [facility] Serum or plasma total carbon dioxide measurement (moles/volume)Ordered By: Andi Ware on 07-11-2022 CO2 [Moles/Vol] 24.2 mmol/L 22.0-30.0 [facility] Serum or plasma urea nitroge n measurement (mass/volume)Ordered By: Andi Ware on 07-11-2022 Urea nitrogen [Mass/Vol] 28 mg/dL 9-[address] [facility] WBC Auto (Bld) [#/Vol]Ordere d By: Andi Ware on 07-11-2022 WBC (Bld) [#/Vol] 8.2 10*3/uL 4.1-10.5 [facility] Activated partial thrombopla stin time (aPTT) in platelet poor plasma by coagulation aOrdered By: Andi Ware on 05-23-2022 aPTT Coag (PPP) [Time] 29.9 s 25.1-36.5 [facility] Glucose Glucometer (BldC) [M ass/Vol]Ordered By: Andi Ware on 05-23-2022 Glucose [Mass/Vol] 200 mg/dL [facility] Comment on above: Random Glucose Refer ence Range is dependent on time and content of last meal. Glucose of more than 200 mg/dL in a nonstressed, ambulatory subject supports the diagnosis of Diabetes Mellitus. Laboratory - CoagulationOrde red By: Andi Ware on 05-23-2022 PT Coag (PPP) [Time] 12.8 s 9.0-12.9 [facility] No Panel InformationOrdered By: Andi Ware on 05-23-2022 Bedside Glucose Comment Glu2: cleaned meter [facility] Platelet poor plasma interna tional normalized ratio (INR) by coagulation assay (relatOrdered By: Andi Ware on 05-23-2022 INR Coag (PPP) [Relative time] 1.1 {INR} [facility] Comment on above: INR Therapeutic Rang e A) Pre- and Peroperative OAT started two weeks before surgery. NOT HIP SURGERY: 1.5 - 2.5 HIP SURGERY: 2 - 3B) Primary and secondary prevention of venous THROMBOSIS: 2 - 3C) Active venous thrombosis, pulmonary embolismand prevention of recurrent venous thrombosis: 2 - 3D) Prevention of arterial thromboembolismincluding patients with mechanical heart valves: 3 - 4.5 Basophils Auto (Bld) [#/Vol] Ordered By: Janusz Davidson on 05-19-2022 Basophils (Bld) [#/Vol] 0.1 10*3/uL 0.0-0.[address] [facility] Basophils/100 WBC Auto (Bld) Ordered By: Janusz Davidson on 05-19-2022 Basophils/100 WBC (Bld) 0.9 % . [facility] COVID-19 SOFIAOrdered By: Jaswinder Ware on 05-19-2022 SARS-CoV+SARS-CoV-2 (COVID-19) Ag IA.rapid Ql (Resp) Negative Negative [facility] Comment on above: This is a duplicate Lelo SARS Antigen (SHAKIRA) result to be used for statistical tracking purpose only. Creatinine and Glomerular fi ltration rate.predicted panel (S/P/Bld)Ordered By: Janusz Davidson on 05-19-2022 Creatinine [Mass/Vol] 1.37 mg/dL 0.64-1.27 [facility] Eosinophils Auto (Bld) [#/Vo l]Ordered By: Janusz Davidson on 05-19-2022 Eosinophils (Bld) [#/Vol] 0.3 10*3/uL 0.0-0.[address] [facility] Eosinophils/100 WBC Auto (Bl d)Ordered By: Janusz Davidson on 05-19-2022 Eosinophils/100 WBC (Bld) 3.8 % . [facility] Erythrocyte distribution wid th Auto (RBC) [Ratio]Ordered By: Janusz Davidson on 05-19-2022 Erythrocyte distribution width (RBC) [Ratio] 16.6 % 12.0-14.[address] [facility] Estimated glomerular filtrat ion rate (GFR) non- AmericanOrdered By: Janusz Davidson on 05-19-2022 GFR/1.73 sq M.predicted among non-blacks MDRD (S/P/Bld) [Vol rate/Area] 51 mL/Min [facility] Hematocrit Auto (Bld) [Volum e fraction]Ordered By: Janusz Davidson on 05-19-2022 Hematocrit (Bld) [Volume fraction] 33.3 % 38.8-50.[address] [facility] Hemoglobin [Mass/volume] in BloodOrdered By: Janusz Davidson on 05-19-2022 Hemoglobin (Bld) [Mass/Vol] 10.6 g/dL 13.0-17.[address] [facility] Leukocytes [#/volume] correc [place] for nucleated erythrocytes in Blood by Automated counOrdered By: Janusz Davidson on 05-19-2022 WBC corrected for nucl RBC Auto (Bld) [#/Vol] 8.2 10*3/uL 4.1-10.[address] [facility] Lymphocytes Auto (Bld) [#/Vo l]Ordered By: Janusz Davidson on 05-19-2022 Lymphocytes (Bld) [#/Vol] 1.3 10*3/uL 1.00-4.[address] [facility] Lymphocytes/100 WBC Auto (Bl d)Ordered By: Janusz Davidson on 05-19-2022 Lymphocytes/100 WBC (Bld) 16.3 % . [facility] MCH Auto (RBC) [Entitic mass ]Ordered By: Janusz Davidson on 05-19-2022 MCH (RBC) [Entitic mass] 26.9 pg 27.5-35.[address] [facility] MCHC Auto (RBC) [Mass/Vol]Or dered By: Janusz Davidson on 05-19-2022 MCHC (RBC) [Mass/Vol] 31.8 g/dL 32.5-35.6 [facility] MCV Auto (RBC) [Entitic vol] Ordered By: Janusz Davidson on 05-19-2022 MCV (RBC) [Entitic vol] 84.5 fL 83.5-[address] [facility] Monocytes Auto (Bld) [#/Vol] Ordered By: Janusz Davidson on 05-19-2022 Monocytes (Bld) [#/Vol] 0.6 10*3/uL 0.0-0.[address] [facility] Monocytes/100 WBC Auto (Bld) Ordered By: Janusz Davidson on 05-19-2022 Monocytes/100 WBC (Bld) 6.9 % . [facility] Neutrophils Auto (Bld) [#/Vo l]Ordered By: Janusz Davidson on 05-19-2022 Neutrophils (Bld) [#/Vol] 5.9 10*3/uL 1.8-7.[address] [facility] Neutrophils/100 WBC Auto (Bl d)Ordered By: Janusz Davidson on 05-19-2022 Neutrophils/100 WBC (Bld) 72.1 % . [facility] No Panel InformationOrdered By: Janusz Davidson on 05-19-2022 Estimated GFR () > 60 mL/Min [facility] Comment on above: GFR estimated refere nce range: According to KDOQI guidelines, <60 ml/min/1.73m2 is sufficient to diagnose a patient with chronic kidney disease. Pharmacy Creatinine Clearance (Chem N/A [facility] No Panel InformationOrdered By: Andi Ware on 05-19-2022 SARS Antigen (LFIA) [facility] SARS Antigen (LFIA) [facility] Nucleated erythrocytes [Pres ence] in Blood by Automated countOrdered By: Janusz Davidson on 05-19-2022 Nucleated RBC Auto Ql (Bld) 0.1 /100{WBC} 0-0.[address] [facility] Platelet mean volume Auto (B ld) [Entitic vol]Ordered By: Janusz Davidson on 05-19-2022 Platelet mean volume (Bld) [Entitic vol] 7.1 fL 6.6-10.[address] [facility] Platelets Auto (Bld) [#/Vol] Ordered By: Janusz Davidson on 05-19-2022 Platelets (Bld) [#/Vol] 315 10*3/uL 150-[address] [facility] RBC Auto (Bld) [#/Vol]Ordere d By: Janusz Davidson on 05-19-2022 RBC (Bld) [#/Vol] 3.94 10*6/uL 3.90-5.60 [facility] Serum or plasma anion gap de terminationOrdered By: Janusz Davidson on 05-19-2022 Anion gap [Moles/Vol] 13.5 mmol/L 6.0-15.0 [facility] Serum or plasma calcium hakan urement (mass/volume)Ordered By: Janusz Davidson on 05-19-2022 Calcium [Mass/Vol] 8.9 mg/dL 8.2-10.2 [facility] Serum or plasma chloride akbar surement (moles/volume)Ordered By: Janusz Davidson on 05-19-2022 Chloride [Moles/Vol] 100 mmol/L 95-114 [facility] Serum or plasma glucose hakan urement (mass/volume)Ordered By: Janusz Davidson on 05-19-2022 Glucose [Mass/Vol] 188 mg/dL 70-100 [facility] Comment on above: ADA recommended refe rence rangeRandom Glucose Reference Range is dependent on time and content of last meal. Glucose of more than 200 mg/dL in a nonstressed, ambulatory subject supports the diagnosis of Diabetes Mellitus. Serum or plasma potassium me asurement (moles/volume)Ordered By: Janusz Davidson on 05-19-2022 Potassium [Moles/Vol] 4.3 mmol/L 3.5-5.1 [facility] Serum or plasma sodium measu rement (moles/volume)Ordered By: Janusz Davidson on 05-19-2022 Sodium [Moles/Vol] 139 mmol/L 136-146 [facility] Serum or plasma total carbon dioxide measurement (moles/volume)Ordered By: Janusz Davidson on 05-19-2022 CO2 [Moles/Vol] 29.8 mmol/L 22.0-30.0 [facility] Serum or plasma urea nitroge n measurement (mass/volume)Ordered By: Janusz Davidson on 05-19-2022 Urea nitrogen [Mass/Vol] 21 mg/dL 9-[address] [facility] WBC Auto (Bld) [#/Vol]Ordere d By: Janusz Davidson on 05-19-2022 WBC (Bld) [#/Vol] 8.2 10*3/uL 4.1-10.5 [facility] Basophils Auto (Bld) [#/Vol] Ordered By: Janusz Davidson on 05-14-2022 Basophils (Bld) [#/Vol] 0.1 10*3/uL 0.0-0.[address] [facility] Basophils/100 WBC Auto (Bld) Ordered By: Janusz Davidson on 05-14-2022 Basophils/100 WBC (Bld) 1.1 % . [facility] Creatinine and Glomerular fi ltration rate.predicted panel (S/P/Bld)Ordered By: Janusz Davidson on 05-14-2022 Creatinine [Mass/Vol] 1.27 mg/dL 0.64-1.27 [facility] Eosinophils Auto (Bld) [#/Vo l]Ordered By: Janusz Davidson on 05-14-2022 Eosinophils (Bld) [#/Vol] 0.2 10*3/uL 0.0-0.[address] [facility] Eosinophils/100 WBC Auto (Bl d)Ordered By: Janusz Davidson on 05-14-2022 Eosinophils/100 WBC (Bld) 2.5 % . [facility] Erythrocyte distribution wid th Auto (RBC) [Ratio]Ordered By: Janusz Davidson on 05-14-2022 Erythrocyte distribution width (RBC) [Ratio] 15.7 % 12.0-14.[address] [facility] Estimated glomerular filtrat ion rate (GFR) non- AmericanOrdered By: Janusz Davidson on 05-14-2022 GFR/1.73 sq M.predicted among non-blacks MDRD (S/P/Bld) [Vol rate/Area] 56 mL/Min [facility] Glucose Glucometer (BldC) [M ass/Vol]Ordered By: Janusz Davidson on 05-14-2022 Glucose [Mass/Vol] 226 mg/dL [facility] Comment on above: Random Glucose Refer ence Range is dependent on time and content of last meal. Glucose of more than 200 mg/dL in a nonstressed, ambulatory subject supports the diagnosis of Diabetes Mellitus. Hematocrit Auto (Bld) [Volum e fraction]Ordered By: Janusz Davidson on 05-14-2022 Hematocrit (Bld) [Volume fraction] 26.8 % 38.8-50.[address] [facility] Hemoglobin [Mass/volume] in BloodOrdered By: Janusz Davidson on 05-14-2022 Hemoglobin (Bld) [Mass/Vol] 8.8 g/dL 13.0-17.[address] [facility] Leukocytes [#/volume] correc [place] for nucleated erythrocytes in Blood by Automated counOrdered By: Janusz Davidson on 05-14-2022 WBC corrected for nucl RBC Auto (Bld) [#/Vol] 6.6 10*3/uL 4.1-10.[address] [facility] Lymphocytes Auto (Bld) [#/Vo l]Ordered By: Janusz Davidson on 05-14-2022 Lymphocytes (Bld) [#/Vol] 1.2 10*3/uL 1.00-4.[address] [facility] Lymphocytes/100 WBC Auto (Bl d)Ordered By: Janusz Davidson on 05-14-2022 Lymphocytes/100 WBC (Bld) 18.1 % . [facility] MCH Auto (RBC) [Entitic mass ]Ordered By: Janusz Davidson on 05-14-2022 MCH (RBC) [Entitic mass] 27.5 pg 27.5-35.[address] [facility] MCHC Auto (RBC) [Mass/Vol]Or dered By: Janusz Davidson on 05-14-2022 MCHC (RBC) [Mass/Vol] 32.9 g/dL 32.5-35.6 [facility] MCV Auto (RBC) [Entitic vol] Ordered By: Janusz Davidson on 05-14-2022 MCV (RBC) [Entitic vol] 83.5 fL 83.5-[address] [facility] Monocytes Auto (Bld) [#/Vol] Ordered By: Janusz Davidson on 05-14-2022 Monocytes (Bld) [#/Vol] 0.5 10*3/uL 0.0-0.[address] [facility] Monocytes/100 WBC Auto (Bld) Ordered By: Janusz Davidson on 05-14-2022 Monocytes/100 WBC (Bld) 7.4 % . [facility] Neutrophils Auto (Bld) [#/Vo l]Ordered By: Janusz Davidson on 05-14-2022 Neutrophils (Bld) [#/Vol] 4.7 10*3/uL 1.8-7.[address] [facility] Neutrophils/100 WBC Auto (Bl d)Ordered By: Janusz Davidson on 05-14-2022 Neutrophils/100 WBC (Bld) 70.9 % . [facility] No Panel InformationOrdered By: Janusz Davidson on 05-14-2022 Bedside Glucose Comment Glu2: cleaned meter [facility] Estimated GFR () > 60 mL/Min [facility] Comment on above: GFR estimated refere nce range: According to KDOQI guidelines, <60 ml/min/1.73m2 is sufficient to diagnose a patient with chronic kidney disease. Pharmacy Creatinine Clearance (Chem 66.[address] [facility] Nucleated erythrocytes [Pres ence] in Blood by Automated countOrdered By: Janusz Davidson on 05-14-2022 Nucleated RBC Auto Ql (Bld) 0.1 /100{WBC} 0-0.[address] [facility] Platelet mean volume Auto (B ld) [Entitic vol]Ordered By: Janusz Davidson on 05-14-2022 Platelet mean volume (Bld) [Entitic vol] 6.9 fL 6.6-10.[address] [facility] Platelets Auto (Bld) [#/Vol] Ordered By: Janusz Davidson on 05-14-2022 Platelets (Bld) [#/Vol] 230 10*3/uL 150-[address] [facility] RBC Auto (Bld) [#/Vol]Ordere d By: Janusz Davidson on 05-14-2022 RBC (Bld) [#/Vol] 3.20 10*6/uL 3.90-5.60 [facility] Serum or plasma anion gap de terminationOrdered By: Janusz Davidson on 05-14-2022 Anion gap [Moles/Vol] 11.0 mmol/L 6.0-15.0 [facility] Serum or plasma calcium hakan urement (mass/volume)Ordered By: Janusz Davidson on 05-14-2022 Calcium [Mass/Vol] 8.3 mg/dL 8.2-10.2 [facility] Serum or plasma chloride akbar surement (moles/volume)Ordered By: Janusz Davidson on 05-14-2022 Chloride [Moles/Vol] 100 mmol/L 95-114 [facility] Serum or plasma glucose hakan urement (mass/volume)Ordered By: Janusz Davidson on 05-14-2022 Glucose [Mass/Vol] 161 mg/dL 70-100 [facility] Comment on above: ADA recommended refe rence rangeRandom Glucose Reference Range is dependent on time and content of last meal. Glucose of more than 200 mg/dL in a nonstressed, ambulatory subject supports the diagnosis of Diabetes Mellitus. Serum or plasma potassium me asurement (moles/volume)Ordered By: Janusz Davidson on 05-14-2022 Potassium [Moles/Vol] 3.9 mmol/L 3.5-5.1 [facility] Serum or plasma sodium measu rement (moles/volume)Ordered By: Janusz Davidson on 05-14-2022 Sodium [Moles/Vol] 136 mmol/L 136-146 [facility] Serum or plasma total carbon dioxide measurement (moles/volume)Ordered By: Janusz Davidson on 05-14-2022 CO2 [Moles/Vol] 28.9 mmol/L 22.0-30.0 [facility] Serum or plasma urea nitroge n measurement (mass/volume)Ordered By: Janusz Davidson on 05-14-2022 Urea nitrogen [Mass/Vol] 18 mg/dL 9-[address] [facility] WBC Auto (Bld) [#/Vol]Ordere d By: Janusz Davidson on 05-14-2022 WBC (Bld) [#/Vol] 6.6 10*3/uL 4.1-10.5 [facility] Activated partial thrombopla stin time (aPTT) in platelet poor plasma by coagulation aOrdered By: Janusz Reed on 05-12-2022 aPTT Coag (PPP) [Time] 37.3 s 25.1-36.5 [facility] Basophils Auto (Bld) [#/Vol] Ordered By: Janusz Reed on 05-12-2022 Basophils (Bld) [#/Vol] 0.1 10*3/uL 0.0-0.[address] [facility] Basophils/100 WBC Auto (Bld) Ordered By: Janusz Reed on 05-12-2022 Basophils/100 WBC (Bld) 1.0 % . [facility] Body fluid albumin measureme nt (mass/volume)Ordered By: Janusz Reed on 05-12-2022 Albumin (Body fld) [Mass/Vol] 3.7 g/dL 3.2-5.[address] [facility] Creatinine and Glomerular fi ltration rate.predicted panel (S/P/Bld)Ordered By: Janusz Reed on 05-12-2022 Creatinine [Mass/Vol] 1.31 mg/dL 0.64-1.27 [facility] Eosinophils Auto (Bld) [#/Vo l]Ordered By: Janusz Reed on 05-12-2022 Eosinophils (Bld) [#/Vol] 0.2 10*3/uL 0.0-0.[address] [facility] Eosinophils/100 WBC Auto (Bl d)Ordered By: Janusz Reed on 05-12-2022 Eosinophils/100 WBC (Bld) 2.4 % . [facility] Erythrocyte distribution wid th Auto (RBC) [Ratio]Ordered By: Janusz Reed on 05-12-2022 Erythrocyte distribution width (RBC) [Ratio] 15.9 % 12.0-14.[address] [facility] Estimated glomerular filtrat ion rate (GFR) non- AmericanOrdered By: Janusz Reed on 05-12-2022 GFR/1.73 sq M.predicted among non-blacks MDRD (S/P/Bld) [Vol rate/Area] 54 mL/Min [facility] Globulin Calc (S) [Mass/Vol] Ordered By: Janusz Reed on 05-12-2022 Globulin (S) [Mass/Vol] 3.6 g/dL [facility] Hematocrit Auto (Bld) [Volum e fraction]Ordered By: Janusz Reed on 05-12-2022 Hematocrit (Bld) [Volume fraction] 29.3 % 38.8-50.[address] [facility] Hemoglobin [Mass/volume] in BloodOrdered By: Janusz Reed on 05-12-2022 Hemoglobin (Bld) [Mass/Vol] 9.4 g/dL 13.0-17.[address] [facility] Laboratory - Chemistry and C hemistry - challengeOrdered By: Janusz Davidson on 05-12-2022 Natriuretic peptide B (Bld) [Mass/Vol] 177.0 pg/mL 5-[address] [facility] Laboratory - CoagulationOrde red By: Janusz Reed on 05-12-2022 PT Coag (PPP) [Time] 19.4 s 9.0-12.9 [facility] Leukocytes [#/volume] correc [place] for nucleated erythrocytes in Blood by Automated counOrdered By: Janusz Reed on 05-12-2022 WBC corrected for nucl RBC Auto (Bld) [#/Vol] 8.0 10*3/uL 4.1-10.[address] [facility] Lymphocytes Auto (Bld) [#/Vo l]Ordered By: Janusz Reed on 05-12-2022 Lymphocytes (Bld) [#/Vol] 1.2 10*3/uL 1.00-4.[address] [facility] Lymphocytes/100 WBC Auto (Bl d)Ordered By: Janusz Reed on 05-12-2022 Lymphocytes/100 WBC (Bld) 15.3 % . [facility] MCH Auto (RBC) [Entitic mass ]Ordered By: Janusz Reed on 05-12-2022 MCH (RBC) [Entitic mass] 27.2 pg 27.5-35.[address] [facility] MCHC Auto (RBC) [Mass/Vol]Or dered By: Janusz Reed on 05-12-2022 MCHC (RBC) [Mass/Vol] 32.1 g/dL 32.5-35.6 [facility] MCV Auto (RBC) [Entitic vol] Ordered By: Janusz Reed on 05-12-2022 MCV (RBC) [Entitic vol] 84.9 fL 83.5-[address] [facility] Monocyte distribution width [Entitic volume] in Blood by AutomatedOrdered By: Janusz Reed on 05-12-2022 Monocyte distribution width Auto (Bld) [Entitic vol] 17.98 % 0.00-20.[address] [facility] Monocytes Auto (Bld) [#/Vol] Ordered By: Janusz Reed on 05-12-2022 Monocytes (Bld) [#/Vol] 0.4 10*3/uL 0.0-0.[address] [facility] Monocytes/100 WBC Auto (Bld) Ordered By: Janusz Reed on 05-12-2022 Monocytes/100 WBC (Bld) 5.6 % . [facility] Neutrophils Auto (Bld) [#/Vo l]Ordered By: Janusz Reed on 05-12-2022 Neutrophils (Bld) [#/Vol] 6.1 10*3/uL 1.8-7.[address] [facility] Neutrophils/100 WBC Auto (Bl d)Ordered By: Janusz Reed on 05-12-2022 Neutrophils/100 WBC (Bld) 75.7 % . [facility] No Panel InformationOrdered By: Janusz Reed on 05-12-2022 Estimated GFR () > 60 mL/Min [facility] Comment on above: GFR estimated refere nce range: According to KDOQI guidelines, <60 ml/min/1.73m2 is sufficient to diagnose a patient with chronic kidney disease. Pharmacy Creatinine Clearance (Chem 59.[address] [facility] Nucleated erythrocytes [Pres ence] in Blood by Automated countOrdered By: Janusz Reed on 05-12-2022 Nucleated RBC Auto Ql (Bld) 0.0 /100{WBC} 0-0.[address] [facility] Platelet mean volume Auto (B ld) [Entitic vol]Ordered By: Janusz Reed on 05-12-2022 Platelet mean volume (Bld) [Entitic vol] 7.2 fL 6.6-10.[address] [facility] Platelet poor plasma interna tional normalized ratio (INR) by coagulation assay (relatOrdered By: Janusz Reed on 05-12-2022 INR Coag (PPP) [Relative time] 1.7 {INR} [facility] Comment on above: INR Therapeutic Rang e A) Pre- and Peroperative OAT started two weeks before surgery. NOT HIP SURGERY: 1.5 - 2.5 HIP SURGERY: 2 - 3B) Primary and secondary prevention of venous THROMBOSIS: 2 - 3C) Active venous thrombosis, pulmonary embolismand prevention of recurrent venous thrombosis: 2 - 3D) Prevention of arterial thromboembolismincluding patients with mechanical heart valves: 3 - 4.5 Platelets Auto (Bld) [#/Vol] Ordered By: Janusz Reed on 05-12-2022 Platelets (Bld) [#/Vol] 264 10*3/uL 150-[address] [facility] Protein [Mass/volume] in Ser um or PlasmaOrdered By: Janusz Reed on 05-12-2022 Protein [Mass/Vol] 7.3 g/dL 6.1-7.9 [facility] RBC Auto (Bld) [#/Vol]Ordere d By: Janusz Reed on 05-12-2022 RBC (Bld) [#/Vol] 3.46 10*6/uL 3.90-5.60 [facility] Serum or plasma alanine del valle otransferase measurement without P-5'-P (enzymatic activiOrdered By: Janusz Reed on 05-12-2022 ALT No additional P-5'-P [Catalytic activity/Vol] 24 U/L 10-[address] [facility] Serum or plasma albumin/glob ulin mass ratioOrdered By: Janusz Reed on 05-12-2022 Albumin/Globulin [Mass ratio] 1.0 {ratio} [facility] Serum or plasma alkaline lula sphatase measurement (enzymatic activity/volume)Ordered By: Janusz Reed on 05-12-2022 ALP [Catalytic activity/Vol] 79 U/L 32-[address] [facility] Serum or plasma anion gap de terminationOrdered By: Janusz Reed on 05-12-2022 Anion gap [Moles/Vol] 17.7 mmol/L 6.0-15.0 [facility] Serum or plasma aspartate am inotransferase measurement (enzymatic activity/volume)Ordered By: Janusz Reed on 05-12-2022 AST [Catalytic activity/Vol] 22 U/L 10-[address] [facility] Serum or plasma calcium hakan urement (mass/volume)Ordered By: Janusz Reed on 05-12-2022 Calcium [Mass/Vol] 8.9 mg/dL 8.2-10.2 [facility] Serum or plasma chloride akbar surement (moles/volume)Ordered By: Janusz Reed on 05-12-2022 Chloride [Moles/Vol] 100 mmol/L 95-114 [facility] Serum or plasma glucose hakan urement (mass/volume)Ordered By: Janusz Reed on 05-12-2022 Glucose [Mass/Vol] 174 mg/dL 70-100 [facility] Comment on above: ADA recommended refe rence rangeRandom Glucose Reference Range is dependent on time and content of last meal. Glucose of more than 200 mg/dL in a nonstressed, ambulatory subject supports the diagnosis of Diabetes Mellitus. Serum or plasma potassium me asurement (moles/volume)Ordered By: Janusz Reed on 05-12-2022 Potassium [Moles/Vol] 4.3 mmol/L 3.5-5.1 [facility] Serum or plasma sodium measu rement (moles/volume)Ordered By: Janusz Reed on 05-12-2022 Sodium [Moles/Vol] 138 mmol/L 136-146 [facility] Serum or plasma total biliru bin measurement (mass/volume)Ordered By: Janusz Reed on 05-12-2022 Bilirubin [Mass/Vol] 0.8 mg/dL 0.3-1.2 [facility] Serum or plasma total carbon dioxide measurement (moles/volume)Ordered By: Janusz Reed on 05-12-2022 CO2 [Moles/Vol] 24.6 mmol/L 22.0-30.0 [facility] Serum or plasma urea nitroge n measurement (mass/volume)Ordered By: Janusz Reed on 05-12-2022 Urea nitrogen [Mass/Vol] 20 mg/dL 9-[address] [facility] WBC Auto (Bld) [#/Vol]Ordere d By: Janusz Reed on 05-12-2022 WBC (Bld) [#/Vol] 8.0 10*3/uL 4.1-10.5 [facility] Office Visit (Cardiology)on 03-15-2022 Follow-up visit Diagnoses/Problems Assessed Stage 3b chronic kidney disease (585.3) (N18.32) Atherosclerosis of coronary artery bypass graft of [place] heart without angina pectoris (414.05) (I25.810) Hypertension, essential, benign (401.1) (I10) Ischemic cardiomyopathy (414.8) (I25.5) Mixed hyperlipidemia (272.2) (E78.2) Paroxysmal atrial fibrillation (427.31) (I48.0) S/P PTCA (percutaneous transluminal coronary angioplasty) (V45.82) (Z98.61) Diabetes mellitus (250.00) (E11.9) AICD (automatic cardioverter/defibrillator) present (V45.02) (Z95.810) Ventricular tachycardia (paroxysmal) (427.1) (I47.29) Class 1 obesity with body mass index (BMI) of 33.0 to 33.9 in adult (278.00,V85.33) (E66.9,Z68.33) High risk medication use (V58.69) (Z79.899) History of manic depressive disorder (V11.1) (Z86.59) Hypothyroidism, adult (244.9) (E03.9) Obstructive sleep apnea, adult (327.23) (G47.33) S/P CABG (coronary artery bypass graft) (V45.81) (Z95.1) Orders Atherosclerosis of coronary artery bypass graft of [place] heart without angina pectoris, Hypertension, essential, benign, Ischemic cardiomyopathy Renew: Enalapril Maleate 10 MG Oral Tablet; Take 1 tablet twice daily Atherosclerosis of coronary artery bypass graft of [place] heart without angina pectoris, Paroxysmal atrial fibrillation Renew: Carvedilol 25 MG Oral Tablet; TAKE 1 TABLET TWICE DAILY Class 1 obesity with body mass index (BMI) of 33.0 to 33.9 in adult Healthy Weight Tips; Status:Complete; Done: [id number] Some eating tips that can help you lose weight.; Status:Complete; Done: [id number] Hypertension, essential, benign Renew: amLODIPine Besylate 5 MG Oral Tablet; TAKE 1 TABLET BY MOUTH EVERY DAY Paroxysmal atrial fibrillation Renew: Eliquis 5 MG Oral Tablet; TAKE ONE TABLET TWO TIMES DAILY IO EKG Electrocardiogram- 12 Lead; Status:Complete; Done: [id number] Patient Instructions Please bring all medicines, vitamins, and herbal supplements with you when you come to the office. Prescriptions will not be filled unless you are compliant with your follow up appointments or have a follow up appointment scheduled as per instruction of your physician. Refills should be requested at the time of your visit. Amiodarone follow-up as scheduled per routine. Pacemaker/Defibrillator Routine Follow-up. Follow up in 6 months Chief Complaint JOSÉ LUIS GIL is being seen for a 4 month follow-up of. Patient is in the office for follow-up for the problems noted below accompanied by his . Today's visit was a good 1 since she is looking better and feeling better and recent echocardiogram from February 2022 showed ejection fraction between 50 and 55%. Which is an improvement from previously. He has had no AICD discharges. His pacemaker check is due. His diabetes is under better control. He has no volume overload and denies any angina. His blood pressure is under control. His kidney function is stable in stage III. His lungs sounded normal his card examination was unremarkable he had no lower extremity edema. Recently his psychiatric medications have been withheld and reduced with improvement of his mental state. His gait is improving and he will be transitioned shortly from the walker to a cane. ASSESSMENT AND PLAN: 1. Severe coronary artery disease, status post bypass surgery in the remote past, cardiac catheterization May 2021 revealed patent ZAVALA and 2 other vein grafts, the last graft was occluded but there was excellent collaterals. Medical therapy was recommended. We will continue aggressive risk factor management for CAD continue nitrates 2. ischemic cardiomyopathy stage C, functional class II NYHA for CHF, ejection fraction February 2022 was 50-55% significantly better from before, continue Coreg, enalapril and Aldactone 4. AICD in place for primary prevention purposes, being monitored in the [facility]. 5. Diabetes, managed by endocrinology. 6. Hyperlipidemia, on medical therapy, under control. 7. Hypothyroidism, on replacement therapy. 8. Sleep apnea on CPAP machine. 9. Significant frailty, physical therapy work with the patient twice weekly, he will be transitioned next week from a walker to a cane, advised patient to avoid falling down since he is anticoagulated 10. History of ventricular tachycardia with no recurrent events, currently on amiodarone therapy 11. Paroxysmal atrial fibrillation, currently his EKG showed atrial pacemaker rhythm he is on amiodarone. We will continue Eliquis and amiodarone therapy. We will continue amiodarone surveillance testing 12. COPD based on recent assessed by pulmonary medicine on medical therapy and stable 13. Manic depressive disorder on medical therapy followed by psychiatry Surgical History Problems History of Cardiac catheterization History of Cataract surgery History of Complete colonoscopy Managed By: Guzman Will DO A History of Coronary artery bypass graft History of Foot arthrodesis Histor (more content not included)... Normal [employer] Tobacco Screening.on 022 Fall risk assessment a) No falls within the last year [facility] [employer] [address] Work Phone: Tobacco use status CP b) [facility] [address] Work Phone: CHEMISTRYOrdered By: Lab ROP User on 02-10-2022 Glucose [Mass/Vol] 89 mg/dL Normal 55 - 99 mg/dL [facility] POC Subsection Comment on above: Result Comment: Kennedy papitothuan RN/MD POC Device SN [id number] Invalid Interpretation Code [facility] POC Subsection POC User ID [id number] Invalid Interpretation Code [facility] POC Subsection POC Username MEDINA MOLINA Invalid Interpretation Code [facility] POC Subsection Glucose [Mass/Vol] 130 mg/dL High 55 - 99 mg/dL [facility] POC Subsection Comment on above: Result Comment: Kennedy papitothuan RN/MD POC Device SN [id number] Invalid Interpretation Code [facility] POC Subsection POC User ID [id number] Invalid Interpretation Code [facility] POC Subsection POC Username MEDINA MOLINA Invalid Interpretation Code [facility] POC Subsection Glucose [Mass/Vol] 113 mg/dL High 55 - 99 mg/dL [facility] POC Subsection Comment on above: Result Comment: Kennedy papitothuan RN/MD POC Device SN [id number] Invalid Interpretation Code [facility] POC Subsection POC User ID [id number] Invalid Interpretation Code [facility] POC Subsection POC Username MEDINA MOLINA Invalid Interpretation Code [facility] POC Subsection CHEMISTRYOrdered By: SYSTEM SYSTEM on 02-10-2022 Anion gap [Moles/Vol] 11 mmol/L Normal 6 - 16 mEq/L [facility] Remisol Calcium [Mass/Vol] 8.4 mg/dL Low 8.9 - 11. 1 mg/dL [facility] Remisol Chloride [Moles/Vol] 104 mmol/L Normal 101 - 1 11 mmol/L [facility] CO2 [Moles/Vol] 29 mmol/L Normal 21 - 31 mmol/L [facility] Remisol Creatinine [Mass/Vol] 1.2 mg/dL Normal 0.5 - 1.3 mg/dL [facility] Remisol GFR/1.73 sq M.predicted among blacks MDRD (S/P/Bld) [Vol rate/Area] mL/min/1.73 m2 Normal >=59mL/min /1.73 m2 [facility] Chem S GFR/1.73 sq M.predicted among non-blacks MDRD (S/P/Bld) [Vol rate/Area] 59 mL/min/1.73 m2 Normal >=59mL/min /1.73 m2 [facility] Chem S Glucose [Mass/Vol] 70 mg/dL Normal 55 - 199 mg/dL [facility] Remisol Magnesium [Mass/Vol] 2.2 mg/dL Normal 1.3 - 2 .4 mg/dL [facility] Remisol Potassium [Moles/Vol] 4.4 mmol/L Normal 3.5 - 5.3 mmol/L [facility] Remisol Sodium [Moles/Vol] 140 mmol/L Normal 135 - 145 mmol/L [facility] Urea nitrogen [Mass/Vol] 22 mg/dL High 5 - 21 mg/dL [facility] Urea nitrogen/Creatinine [Mass ratio] 18 mg/mg Normal 10 - 20 [facility] Remisol CHEMISTRYOrdered By: Spiracur SYSTEM on 02-09-2022 CK [Catalytic activity/Vol] 35 [iU]/d Normal 14 - 261 Int._Unit/ L [facility] Rem[facility] CRP [Mass/Vol] 0.9 mg/dL Normal <=1.9mg/dL [facility] Cholesterol [Mass/Vol] 92 mg/dL Low 120 - 200 mg/dL [facility] Cholesterol in HDL [Mass/Vol] 33 mg/dL Invalid Interpretation Code [facility] Remisol Cholesterol in LDL [Mass/Vol] 38 mg/dL Normal <=129mg/dL [facility] Cholesterol in VLDL [Mass/Vol] 23 mg/dL Normal 7 - 40 mg/dL [facility] Cobalamin (Vitamin B12) [Mass/Vol] 245 pg/mL Normal 50 - 1500 pg/mL [facility] Folate [Mass/Vol] 9.8 ng/mL Normal >=6.7ng/mL [facility] Free T4 [Mass/Vol] 0.55 ng/dL Low 0.58 - 1.64 ng/dL [facility] Triglyceride [Mass/Vol] 114 mg/dL Normal <=149mg/dL [facility] Troponin I.cardiac [Mass/Vol] 17.40 pg/mL Normal 15.90 - 38.40 pg/mL [facility] TSH Qn 70.00 m[IU]/L High 0.34 - 5.60 mcIU/mL [facility] Lactate [Mass/Vol] 2.2 mmol/L Normal 0.5 - 2.2 mmol/L [facility] CHEMISTRYOrdered By: Sohan Arevalo on 02-09-2022 HbA1c (Bld) [Mass fraction] 8.2 % High <=5.9% [facility] ChemAutoSS Reference Laboratory Testing Ordered By: Generated DomainUser on 02-09-2022 Reagin Ab RPR Ql (S) Non-Reactive Invalid Interpretation Code Non Reactive [facility] SendOutsSS Comment on above: Result Comment: Perf ormed at: [facility] [address] [id number] PhD Erick Nielsen CHEMISTRYOrdered By: SYSTEM SYSTEM on 02-08-2022 Albumin [Mass/Vol] 3.4 g/dL Normal 3.3 - 5.0 gm/dL [facility] Remisol Albumin/Globulin [Mass ratio] 0.9 {ratio} Low 1.1 - 2.2 [facility] ALP [Catalytic activity/Vol] 76 [iU]/d Normal 21 - 98 Int._Unit/ L [facility] ALT No additional P-5'-P [Catalytic activity/Vol] 20 [iU]/d Normal 6 - 46 Int._Unit/ L [facility] Anion gap [Moles/Vol] 14 mmol/L Normal 6 - 16 mEq/L [facility] AST [Catalytic activity/Vol] 19 [iU]/d Normal 5 - 43 Int._Unit/ L [facility] Bilirubin [Mass/Vol] 0.2 mg/dL Normal 0.0 - 1 .1 mg/dL [facility] Calcium [Mass/Vol] 8.7 mg/dL Low 8.9 - 11. 1 mg/dL [facility] Chloride [Moles/Vol] 105 mmol/L Normal 101 - 1 11 mmol/L [facility] CO2 [Moles/Vol] 26 mmol/L Normal 21 - 31 mmol/L [facility] Creatinine [Mass/Vol] 1.6 mg/dL High 0.5 - 1.3 mg/dL [facility] Remisol GFR/1.73 sq M.predicted among blacks MDRD (S/P/Bld) [Vol rate/Area] 52 mL/min/1.73 m2 Low >=59mL/min /1.73 m2 [facility] Chem S GFR/1.73 sq M.predicted among non-blacks MDRD (S/P/Bld) [Vol rate/Area] 43 mL/min/1.73 m2 Low >=59mL/min /1.73 m2 [facility] Chem S Globulin (S) [Mass/Vol] 3.8 g/dL Normal 1.4 - 4.0 gm/dL [facility] Glucose [Mass/Vol] 210 mg/dL High 55 - 199 mg/dL [facility] Remisol Lactate [Mass/Vol] 2.9 mmol/L High 0.5 - 2.2 mmol/L [facility] Potassium [Moles/Vol] 4.7 mmol/L Normal 3.5 - 5.3 mmol/L [facility] Protein [Mass/Vol] 7.2 g/dL Normal 6.0 - 7.8 gm/dL [facility] Sodium [Moles/Vol] 140 mmol/L Normal 135 - 145 mmol/L [facility] Urea nitrogen [Mass/Vol] 25 mg/dL High 5 - 21 mg/dL [facility] Urea nitrogen/Creatinine [Mass ratio] 16 mg/mg Normal 10 - 20 [facility] HEMATOLOGYOrdered By: SYSTEM SYSTEM on 02-08-2022 Basophils/100 WBC (Bld) 1.3 % Normal 0.0 - 2.0 % [facility] HemeAutoSS Basophils/Leukocytes Auto (Bld) [Pure # fraction] 0.1 E9/L Normal 0.0 - 0.2 E9/L [facility] HemeAutoSS Eosinophils/100 WBC (Bld) 2.3 % Normal 0.0 - 8.0 % [facility] HemeAutoSS Eosinophils/Leukocytes Auto (Bld) [Pure # fraction] 0.2 E9/L Normal 0.0 - 0.5 E9/L [facility]eAutoSS Lymphocytes/100 WBC (Bld) 19.0 % Normal 14.0 - 50.0 % [facility] HemeAutoSS Lymphocytes/Leukocytes Auto (Bld) [Pure # fraction] 1.6 E9/L Normal 1.0 - 4.0 E9/L [facility]eAutoSS Monocytes/100 WBC (Bld) 6.5 % Normal 4.0 - 14.0 % [facility] HemeAutoSS Monocytes/Leukocytes Auto (Bld) [Pure # fraction] 0.6 E9/L Normal 0.2 - 1.0 E9/L [facility]eAuto[facility] Neutrophils/100 WBC (Bld) 70.9 % Normal 36.0 - 75.0 % [facility] HemeAutoSS Neutrophils/Leukocytes Auto (Bld) [Pure # fraction] 6.0 E9/L Normal 2.0 - 7.5 E9/L [facility] HemeAutoSS HEMATOLOGYOrdered By: Lynn Gonzales on 02-08-2022 Erythrocyte distribution width (RBC) [Ratio] 16.0 % High 10.9 - 14.2 % [facility] HemeAutoSS Hematocrit (Bld) [Volume fraction] 25.6 % Low 37.7 - 49.0 % [facility] HemeAutoSS Hemoglobin (Bld) [Mass/Vol] 8.7 g/dL Low 13.5 - 17.5 gm/dL [facility] MCH (RBC) [Entitic mass] 29.9 pg Normal 27.0 - 34.0 pg [facility] MCHC (RBC) [Mass/Vol] 33.8 g/dL Normal 31.4 - 36.0 gm/dL [facility] MCV (RBC) [Entitic vol] 88.4 fL Normal 80.0 - 100.0 fL [facility] Platelet mean volume (Bld) [Entitic vol] 7.0 fL Normal 6.4 - 10.8 fL [facility] Platelets (Bld) [#/Vol] 292.0 E9/L Normal 150.0 - 500.0 E9/L [facility] RBC (Bld) [#/Vol] 2.9 E12/L Low 4.3 - 5.9 E12/L [facility] Sed Rate Automated 88 mm/h High 0 - 19 mm/hr [facility] WBC corrected for nucl RBC Auto (Bld) [#/Vol] 8.5 E9/L Normal 4.0 - 11.0 E9/L [facility] Comment on above: Result Comment: Slid e reviewed by AD. URINALYSISOrdered By: Jb jeter on 02-08-2022 Bilirubin Ql (U) Negative (02/08/22 9:15 PM) Normal Negative [facility] Clarity (U) Clear (02/08/22 9:15 PM) Normal Clear [facility] Color (U) Yellow (02/08/22 9:15 PM) Normal Yellow [facility] Crystals LM Ql (Urine sed) Present (02/08/22 9:15 PM) Normal [facility] Epithelial cells.squamous LM.HPF (Urine sed) [#/Area] 0-2 /HPF Normal 0-2/HPF [facility] Glucose Test strip (U) [Mass/Vol] 1+ *ABN* (02/08/22 9:15 PM) Invalid Interpretation Code Negative [facility] Hemoglobin Ql (U) Negative (02/08/22 9:15 PM) Normal Negative [facility] Ketones (U) [Mass/Vol] Negative (02/08/22 9:15 PM) Normal Negative [facility] Auto SS [place].plasma/[place] .RBC (Bld) [Mass ratio] 0-3 /HPF Normal 0-3/HPF [facility] Nitrite Ql (U) Negative (02/08/22 9:15 PM) Normal Negative [facility] pH (U) 5.0 *NA* (02/08/22 9:15 PM) Invalid Interpretation Code 5.0 - 9.0 [facility] Protein (U) [Mass/Vol] Negative (02/08/22 9:15 PM) Normal Negative [facility] Specific gravity (U) [Rel density] >=1.030 *NA* (02/08/22 9:15 PM) Invalid Interpretation Code 1.005 - 1.030 [facility] UA Spec Desc Suazo (02/08/22 9:15 PM) Normal [facility] UA Auto SS Urobilinogen Qn (U) [id number] {Gabby'U}/dL Normal 0.0 - 1.0 EU/dL [facility] WBC Auto Ql (U) Negative (02/08/22 9:15 PM) Normal Negative [facility] WBC LM.HPF (Urine sed) [#/Area] 0-5 /HPF Normal 0-5/HPF [facility] CHEMISTRYOrdered By: SYSTEM SYSTEM on 02-02-2022 Anion gap [Moles/Vol] 14 mmol/L Normal 6 - 16 mEq/L [facility] Calcium [Mass/Vol] 8.5 mg/dL Low 8.9 - 11. 1 mg/dL [facility] Chloride [Moles/Vol] 100 mmol/L Low 101 - 1 11 mmol/L [facility] CO2 [Moles/Vol] 27 mmol/L Normal 21 - 31 mmol/L [facility] Creatinine [Mass/Vol] 1.6 mg/dL High 0.5 - 1.3 mg/dL [facility] GFR/1.73 sq M.predicted among blacks MDRD (S/P/Bld) [Vol rate/Area] 52 mL/min/1.73 m2 Low >=59mL/min /1.73 m2 [facility] Chem S GFR/1.73 sq M.predicted among non-blacks MDRD (S/P/Bld) [Vol rate/Area] 43 mL/min/1.73 m2 Low >=59mL/min /1.73 m2 [facility] Chem S Glucose [Mass/Vol] 225 mg/dL High 55 - 199 mg/dL [facility] Potassium [Moles/Vol] 4.8 mmol/L Normal 3.5 - 5.3 mmol/L [facility] Sodium [Moles/Vol] 136 mmol/L Normal 135 - 145 mmol/L [facility] Troponin I.cardiac [Mass/Vol] 16.20 pg/mL Normal 15.90 - 38.40 pg/mL [facility] Urea nitrogen [Mass/Vol] 33 mg/dL High 5 - 21 mg/dL [facility] Urea nitrogen/Creatinine [Mass ratio] 21 mg/mg High 10 - 20 [facility] CHEMISTRYOrdered By: Radha Vera on 02-02-2022 Natriuretic peptide B (Bld) [Mass/Vol] 125 pg/mL High 5 - 80 pg/mL [facility] HEMATOLOGYOrdered By: SYSTEM SYSTEM on 02-02-2022 Basophils/100 WBC (Bld) 0.3 % Normal 0.0 - 2.0 % [facility] Basophils/Leukocytes Auto (Bld) [Pure # fraction] 0.0 E9/L Normal 0.0 - 0.2 E9/L [facility] Eosinophils/100 WBC (Bld) 3.7 % Normal 0.0 - 8.0 % [facility] Eosinophils/Leukocytes Auto (Bld) [Pure # fraction] 0.3 E9/L Normal 0.0 - 0.5 E9/L [facility] Lymphocytes/100 WBC (Bld) 20.4 % Normal 14.0 - 50.0 % [facility] Lymphocytes/Leukocytes Auto (Bld) [Pure # fraction] 1.4 E9/L Normal 1.0 - 4.0 E9/L [facility] Monocytes/100 WBC (Bld) 7.6 % Normal 4.0 - 14.0 % [facility] Monocytes/Leukocytes Auto (Bld) [Pure # fraction] 0.5 E9/L Normal 0.2 - 1.0 E9/L [facility] Neutrophils/100 WBC (Bld) 68.0 % Normal 36.0 - 75.0 % [facility] Neutrophils/Leukocytes Auto (Bld) [Pure # fraction] 4.8 E9/L Normal 2.0 - 7.5 E9/L [facility] HEMATOLOGYOrdered By: Claudy Vera on 02-02-2022 Erythrocyte distribution width (RBC) [Ratio] 15.9 % High 10.9 - 14.2 % [facility] Hematocrit (Bld) [Volume fraction] 27.6 % Low 37.7 - 49.0 % [facility] Hemoglobin (Bld) [Mass/Vol] 9.0 g/dL Low 13.5 - 17.5 gm/dL [facility] MCH (RBC) [Entitic mass] 29.1 pg Normal 27.0 - 34.0 pg [facility] MCHC (RBC) [Mass/Vol] 32.7 g/dL Normal 31.4 - 36.0 gm/dL [facility] MCV (RBC) [Entitic vol] 88.9 fL Normal 80.0 - 100.0 fL [facility] Platelet mean volume (Bld) [Entitic vol] 7.1 fL Normal 6.4 - 10.8 fL [facility] Platelets (Bld) [#/Vol] 233.0 E9/L Normal 150.0 - 500.0 E9/L [facility] RBC (Bld) [#/Vol] 3.1 E12/L Low 4.3 - 5.9 E12/L [facility] WBC corrected for nucl RBC Auto (Bld) [#/Vol] 7.1 E9/L Normal 4.0 - 11.0 E9/L [facility] URINALYSISOrdered By: Samir Brewer on 02-02-2022 Bilirubin Ql (U) Negative (9/1/22 2:54 PM) Normal Negative [facility] Clarity (U) Clear (02/02/22 2:54 PM) Normal Clear [facility] Color (U) Yellow (02/02/22 2:54 PM) Normal Yellow [facility] Epithelial cells.squamous LM.HPF (Urine sed) [#/Area] 0-2 /HPF Normal 0-2/HPF [facility] Glucose Test strip (U) [Mass/Vol] Negative (02/02/22 2:54 PM) Normal Negative [facility] Hemoglobin Ql (U) Negative (02/02/22 2:54 PM) Normal Negative [facility] Ketones (U) [Mass/Vol] Negative (02/02/22 2:54 PM) Normal Negative [facility] Auto SS [place].plasma/[place] .RBC (Bld) [Mass ratio] 0-3 /HPF Normal 0-3/HPF [facility] Nitrite Ql (U) Negative (02/02/22 2:54 PM) Normal Negative [facility] pH (U) 5.5 *NA* (02/02/22 2:54 PM) Invalid Interpretation Code 5.0 - 9.0 [facility] Protein (U) [Mass/Vol] Negative (02/02/22 2:54 PM) Normal Negative [facility] Specific gravity (U) [Rel density] 1.020 *NA* (02/02/22 2:54 PM) Invalid Interpretation Code 1.005 - 1.030 [facility] UA Spec Desc Clean Catch (02/02/22 2:54 PM) Normal [facility] Urobilinogen Qn (U) [id number] {Gabby'U}/dL Normal 0.0 - 1.0 EU/dL [facility] WBC Auto Ql (U) Negative (02/02/22 2:54 PM) Normal Negative [facility] WBC LM.HPF (Urine sed) [#/Area] 0-5 /HPF Normal 0-5/HPF [facility] CHEMISTRYOrdered By: SYSTEM SYSTEM on 01-23-2022 Cobalamin (Vitamin B12) [Mass/Vol] 279 pg/mL Normal 50 - 1500 pg/mL [facility] TSH Qn 39.24 m[IU]/L High 0.34 - 5.60 mcIU/mL [facility] CHEMISTRYOrdered By: SYSTEM SYSTEM on 2021 Troponin I.cardiac [Mass/Vol] 18.90 pg/mL Normal 15.90 - 38.40 pg/mL [facility] Anion gap [Moles/Vol] 14 mmol/L Normal 6 - 16 mEq/L [facility] Calcium [Mass/Vol] 8.4 mg/dL Low 8.9 - 11. 1 mg/dL [facility] Chloride [Moles/Vol] 104 mmol/L Normal 101 - 1 11 mmol/L [facility] CO2 [Moles/Vol] 23 mmol/L Normal 21 - 31 mmol/L [facility] Creatinine [Mass/Vol] 1.8 mg/dL High 0.5 - 1.3 mg/dL [facility] GFR/1.73 sq M.predicted among blacks MDRD (S/P/Bld) [Vol rate/Area] 45 mL/min/1.73 m2 Low >=59mL/min /1.73 m2 [facility] S GFR/1.73 sq M.predicted among non-blacks MDRD (S/P/Bld) [Vol rate/Area] 37 mL/min/1.73 m2 Low >=59mL/min /1.73 m2 [facility] Chem S Glucose [Mass/Vol] 130 mg/dL Normal 55 - 199 mg/dL [facility] Potassium [Moles/Vol] 4.3 mmol/L Normal 3.5 - 5.3 mmol/L [facility] Sodium [Moles/Vol] 137 mmol/L Normal 135 - 145 mmol/L [facility] Troponin I.cardiac [Mass/Vol] 18.90 pg/mL Normal 15.90 - 38.40 pg/mL [facility] Urea nitrogen [Mass/Vol] 37 mg/dL High 5 - 21 mg/dL [facility] Urea nitrogen/Creatinine [Mass ratio] 21 mg/mg High 10 - 20 [facility] COAGULATIONOrdered By: Minerva Hill on 2021 aPTT Coag (PPP) [Time] 37.8 s High 25.1 - 36.5 second(s) [facility] INR Coag (PPP) [Relative time] 1.7 {INR} Invalid Interpretation Code [facility] PT Coag (PPP) [Time] 19.7 s High 10.2 - 12.9 second(s) [facility] HEMATOLOGYOrdered By: SYSTEM SYSTEM on 2021 Basophils/100 WBC (Bld) 0.8 % Normal 0.0 - 2.0 % [facility] Basophils/Leukocytes Auto (Bld) [Pure # fraction] 0.1 E9/L Normal 0.0 - 0.2 E9/L [facility] Eosinophils/100 WBC (Bld) 2.7 % Normal 0.0 - 8.0 % [facility] Eosinophils/Leukocytes Auto (Bld) [Pure # fraction] 0.2 E9/L Normal 0.0 - 0.5 E9/L [facility] Lymphocytes/100 WBC (Bld) 13.5 % Low 14.0 - 50.0 % [facility] Lymphocytes/Leukocytes Auto (Bld) [Pure # fraction] 0.9 E9/L Low 1.0 - 4.0 E9/L [facility] Monocytes/100 WBC (Bld) 10.0 % Normal 4.0 - 14.0 % [facility] Monocytes/Leukocytes Auto (Bld) [Pure # fraction] 0.7 E9/L Normal 0.2 - 1.0 E9/L [facility] Neutrophils/100 WBC (Bld) 73.0 % Normal 36.0 - 75.0 % [facility] Neutrophils/Leukocytes Auto (Bld) [Pure # fraction] 5.1 E9/L Normal 2.0 - 7.5 E9/L [facility] HEMATOLOGYOrdered By: Jane Rasmussen on 2021 Erythrocyte distribution width (RBC) [Ratio] 15.5 % High 10.9 - 14.2 % [facility] Hematocrit (Bld) [Volume fraction] 25.9 % Low 37.7 - 49.0 % [facility] Hemoglobin (Bld) [Mass/Vol] 8.7 g/dL Low 13.5 - 17.5 gm/dL [facility] MCH (RBC) [Entitic mass] 29.7 pg Normal 27.0 - 34.0 pg [facility] MCHC (RBC) [Mass/Vol] 33.4 g/dL Normal 31.4 - 36.0 gm/dL [facility] MCV (RBC) [Entitic vol] 88.7 fL Normal 80.0 - 100.0 fL [facility] Platelet mean volume (Bld) [Entitic vol] 6.6 fL Normal 6.4 - 10.8 fL [facility] Platelets (Bld) [#/Vol] 194.0 E9/L Normal 150.0 - 500.0 E9/L [facility] RBC (Bld) [#/Vol] 2.9 E12/L Low 4.3 - 5.9 E12/L [facility] WBC corrected for nucl RBC Auto (Bld) [#/Vol] 7.0 E9/L Normal 4.0 - 11.0 E9/L [facility] CHEMISTRYOrdered By: SYSTEM SYSTEM on 12-19-2021 Anion gap [Moles/Vol] 16 mmol/L Normal 6 - 16 mEq/L [facility] Calcium [Mass/Vol] 8.5 mg/dL Low 8.9 - 11. 1 mg/dL [facility] Chloride [Moles/Vol] 102 mmol/L Normal 101 - 1 11 mmol/L [facility] CO2 [Moles/Vol] 23 mmol/L Normal 21 - 31 mmol/L [facility] Creatinine [Mass/Vol] 2.0 mg/dL High 0.5 - 1.3 mg/dL [facility] GFR/1.73 sq M.predicted among blacks MDRD (S/P/Bld) [Vol rate/Area] 40 mL/min/1.73 m2 Low >=59mL/min /1.73 m2 [facility] S GFR/1.73 sq M.predicted among non-blacks MDRD (S/P/Bld) [Vol rate/Area] 33 mL/min/1.73 m2 Low >=59mL/min /1.73 m2 [facility] S Glucose [Mass/Vol] 297 mg/dL High 55 - 199 mg/dL [facility] Potassium [Moles/Vol] 6.2 mmol/L Invalid Interpretation Code 3.5 - 5.3 mmol/L [facility] Comment on above: Result Comment: Crit ical Result verified by repeat analysis\Critical Result S_K:6.2 Called to RIVKA SOUZA AT OFFICE by MINERVA HILL And Read Back For Confirmation at: 12/19/2021 14:02:36 Sodium [Moles/Vol] 135 mmol/L Normal 135 - 145 mmol/L [facility] Urea nitrogen [Mass/Vol] 53 mg/dL High 5 - 21 mg/dL [facility] Urea nitrogen/Creatinine [Mass ratio] 26 mg/mg High 10 - 20 [facility] Office Visit (Cardiology)on 12-15-2021 Follow-up visit Diagnoses/Problems Assessed Atherosclerosis of coronary artery bypass graft of [place] heart without angina pectoris (414.05) (I25.810) Ventricular tachycardia (paroxysmal) (427.1) (I47.2) Ischemic cardiomyopathy (414.8) (I25.5) AICD (automatic cardioverter/defibrillator) present (V45.02) (Z95.810) Paroxysmal atrial fibrillation (427.31) (I48.0) High risk medication use (V58.69) (Z79.899) Mixed hyperlipidemia (272.2) (E78.2) Hypertension, essential, benign (401.1) (I10) Diabetes mellitus (250.00) (E11.9) Former smoker (V15.82) (Z87.891) QUIT 11/2001 COPD (chronic obstructive pulmonary disease) (496) (J44.9) History of manic depressive disorder (V11.1) (Z86.59) Hypothyroidism, adult (244.9) (E03.9) Obstructive sleep apnea, adult (327.23) (G47.33) Risk for falls (V15.88) (Z91.81) S/P CABG (coronary artery bypass graft) (V45.81) (Z95.1) S/P PTCA (percutaneous transluminal coronary angioplasty) (V45.82) (Z98.61) Orders Atherosclerosis of coronary artery bypass graft of [place] heart without angina pectoris Renew: Aspirin EC 81 MG Oral Tablet Delayed Release; TAKE 1 TABLET DAILY Atherosclerosis of coronary artery bypass graft of [place] heart without angina pectoris, Ischemic cardiomyopathy, Paroxysmal atrial fibrillation Basic Metabolic Panel; Status:Active - Retrospective Authorization; Requested for:[id number]; Health Maintenance Depression Follow-up Visit Outpatient Patient to followup with pcp if symptoms worsen or persist. Follow with pcp /psych Status: Complete - Retrospective Authorization Done: [id number] Paroxysmal atrial fibrillation IO EKG Electrocardiogram- 12 Lead; Status:Complete; Done: [id number] SocHx: Former smoker Tobacco Use Screening; Status:Complete; Done: [id number] Patient Instructions By signing my name below, Maria Del Carmen Moss Lpn, Scribe, attest that this documentation has been prepared under the direction and in the presence of Dr. Felipa Milligan MD. All medical record entries made by the [place] were at my direction and personally dictated by me. I have reviewed the chart and agree that the record accurately reflects my personal performance of the history, physical exam, discussion and plan. Please bring all medicines, vitamins, and herbal supplements with you when you come to the office. Prescriptions will not be filled unless you are compliant with your follow up appointments or have a follow up appointment scheduled as per instruction of your physician. Refills should be requested at the time of your visit. Patient provided Falls Prevention education sheet. Follow up in 4 months The provider reviewed the following test(s) and result(s) with the patient: ECG Chief Complaint JOSÉ LUIS GIL is being seen for a 4 month follow-up of. Patient is in the office for follow-up for the problems noted below. I saw him in the hospital last weekend when he was there for increasing lower extremity edema and dyspnea. He was switched to torsemide for diuresis and was discharged home in stable condition. He has been declining recently with inability to exercise or to function. His cardiac status has been stable with no indication of decompensated heart failure or active CAD. He has had no further atrial fibrillation on amiodarone and his defibrillator has been stable as well. He has major depression and has bipolar disorder and follows with psychiatry. His depression score came back quite high which is very significant but contributing to his decline. His lungs sounded normal his heart was regular he had no lower extremity edema and his blood pressure was normal. He was very comfortable in his wheelchair. His daughter who is a nurse was with him today and explained to her in details my views of her father's case. I offered no changes in medical therapy for the time being. ASSESSMENT AND PLAN: 1. Severe coronary artery disease, status post bypass surgery in the remote past, cardiac catheterization May 2021 revealed patent ZAVALA and 2 other vein grafts, the last graft was occluded but there was excellent collaterals. Medical therapy was recommended. We will continue aggressive risk factor management for CAD continue nitrates 2. ischemic cardiomyopathy stage C, functional class II NYHA for CHF, continue Coreg, enalapril and Aldactone 4. AICD in place for primary prevention purposes, being monitored in [facility]. 5. Diabetes, managed by endocrinology. 6. Hyperlipidemia, on medical therapy, under control. 7. Hypothyroidism, on replacement therapy. 8. Sleep apnea on CPAP machine. 9. Patient is at risk for falls, education provided to prevent future falls with emphasis on utilizing the walker instead of the cane, physical therapy is working with the patient 10. History of ventricular tachycardia with no recurrent events, currently on amiodarone therapy 11. Paroxysmal atrial fibrillation, currently his EKG showed atrial pacemaker rhythm he is on amiodarone. We will continue Eliquis (more content not included)... Normal [facility] Tobacco Screening.on 022 Adult depression screening assessment Yes [facility] Visto [facility] Work Phone: Fall risk assessment b) One or more fall s in the last year [facility] Visto [facility] Work Phone: Tobacco use status [facility] b) No [facility] plista 600 DO Work Phone: Tobacco Screening. 1-Several days [facility] plista 600 DO Work Phone: [phone] Tobacco Screening. 0-Not at all [facility] [address] DO Work Phone: Tobacco Screening. 3-Nearly every day [facility] plista 600 DO Work Phone: Tobacco Screening. Somewhat Difficult [facility] plista 600 DO Work Phone: CHEMISTRYOrdered By: SYSTEM SYSTEM on 12-06-2021 Anion gap [Moles/Vol] 17 mmol/L High 6 - 16 mEq/L [facility] Calcium [Mass/Vol] 8.8 mg/dL Low 8.9 - 11. 1 mg/dL [facility] Chloride [Moles/Vol] 100 mmol/L Low 101 - 1 11 mmol/L [facility] CO2 [Moles/Vol] 26 mmol/L Normal 21 - 31 mmol/L [facility] Creatinine [Mass/Vol] 1.6 mg/dL High 0.5 - 1.3 mg/dL [facility] GFR/1.73 sq M.predicted among blacks MDRD (S/P/Bld) [Vol rate/Area] 52 mL/min/1.73 m2 Low >=59mL/min /1.73 m2 [facility] S GFR/1.73 sq M.predicted among non-blacks MDRD (S/P/Bld) [Vol rate/Area] 43 mL/min/1.73 m2 Low >=59mL/min /1.73 m2 [facility] Chem S Glucose [Mass/Vol] 196 mg/dL Normal 55 - 199 mg/dL [facility] Potassium [Moles/Vol] 4.6 mmol/L Normal 3.5 - 5.3 mmol/L [facility] Sodium [Moles/Vol] 138 mmol/L Normal 135 - 145 mmol/L [facility] Urea nitrogen [Mass/Vol] 38 mg/dL High 5 - 21 mg/dL [facility] Urea nitrogen/Creatinine [Mass ratio] 24 mg/mg High 10 - 20 [facility] CHEMISTRYOrdered By: SYSTEM SYSTEM on 11-07-2021 Anion gap [Moles/Vol] 16 mmol/L Normal 6 - 16 mEq/L [facility] AST [Catalytic activity/Vol] 26 [iU]/d Normal 5 - 43 Int._Unit/ L [facility] Calcium [Mass/Vol] 8.9 mg/dL Normal 8.9 - 11. 1 mg/dL [facility] Chloride [Moles/Vol] 100 mmol/L Low 101 - 1 11 mmol/L [facility] Cholesterol [Mass/Vol] 132 mg/dL Normal 120 - 200 mg/dL [facility] Cholesterol in HDL [Mass/Vol] 36 mg/dL Invalid Interpretation Code [facility] Cholesterol in LDL [Mass/Vol] 60 mg/dL Normal <=129mg/dL [facility] Cholesterol in VLDL [Mass/Vol] 47 mg/dL High 7 - 40 mg/dL [facility] CO2 [Moles/Vol] 27 mmol/L Normal 21 - 31 mmol/L [facility] Creatinine [Mass/Vol] 1.6 mg/dL High 0.5 - 1.3 mg/dL [facility] GFR/1.73 sq M.predicted among blacks MDRD (S/P/Bld) [Vol rate/Area] 52 mL/min/1.73 m2 Low >=59mL/min /1.73 m2 [facility] Chem S GFR/1.73 sq M.predicted among non-blacks MDRD (S/P/Bld) [Vol rate/Area] 43 mL/min/1.73 m2 Low >=59mL/min /1.73 m2 [facility] Chem S Glucose [Mass/Vol] 173 mg/dL Normal 55 - 199 mg/dL [facility] Potassium [Moles/Vol] 4.7 mmol/L Normal 3.5 - 5.3 mmol/L [facility] Sodium [Moles/Vol] 138 mmol/L Normal 135 - 145 mmol/L [facility] Triglyceride [Mass/Vol] 235 mg/dL High <=149mg/dL [facility] TSH Qn 38.68 m[IU]/L High 0.34 - 5.60 mcIU/mL [facility] Urea nitrogen [Mass/Vol] 24 mg/dL High 5 - 21 mg/dL [facility] Urea nitrogen/Creatinine [Mass ratio] 15 mg/mg Normal 10 - 20 [facility] CHEMISTRYOrdered By: Lab ROP User on 10-19-2021 Glucose [Mass/Vol] 269 mg/dL High 55 - 99 mg/dL [facility] POC Subsection Comment on above: Result Comment: Chela nohemi Meter POC Device SN [id number] Invalid Interpretation Code FT POC Subsection POC User ID [id number] Invalid Interpretation Code FT POC Subsection POC Username HOMA MCCLELLAND Invalid Interpretation Code [facility] POC Subsection Glucose [Mass/Vol] 192 mg/dL High 55 - 99 mg/dL [facility] POC Subsection Comment on above: Result Comment: Chela nohemi Meter POC Device SN [id number] Invalid Interpretation Code FT POC Subsection POC User ID [id number] Invalid Interpretation Code [facility] POC Subsection POC Username HOMA MCCLELLAND Invalid Interpretation Code [facility] POC Subsection CHEMISTRYOrdered By: Lab ROP User on 10-18-2021 Glucose [Mass/Vol] 224 mg/dL High 55 - 99 mg/dL [facility] POC Subsection POC Device SN [id number] Invalid Interpretation Code [facility] POC Subsection POC User ID [id number] Invalid Interpretation Code [facility] POC Subsection POC Username RAY JEAN Invalid Interpretation Code [facility] POC Subsection CHEMISTRYOrdered By: SYSTEM SYSTEM on 10-16-2021 Anion gap [Moles/Vol] 12 mmol/L Normal 6 - 16 mEq/L [facility]isol Calcium [Mass/Vol] 8.8 mg/dL Low 8.9 - 11. 1 mg/dL [facility] Chloride [Moles/Vol] 103 mmol/L Normal 101 - 1 11 mmol/L [facility] CO2 [Moles/Vol] 27 mmol/L Normal 21 - 31 mmol/L [facility] Creatinine [Mass/Vol] 1.1 mg/dL Normal 0.5 - 1.3 mg/dL [facility] Remisol GFR/1.73 sq M.predicted among blacks MDRD (S/P/Bld) [Vol rate/Area] mL/min/1.73 m2 Normal >=59mL/min /1.73 m2 [facility] Chem S GFR/1.73 sq M.predicted among non-blacks MDRD (S/P/Bld) [Vol rate/Area] mL/min/1.73 m2 Normal >=59mL/min /1.73 m2 [facility] Chem S Glucose [Mass/Vol] 214 mg/dL High 55 - 199 mg/dL [facility] Remisol Potassium [Moles/Vol] 4.5 mmol/L Normal 3.5 - 5.3 mmol/L [facility] Remisol Sodium [Moles/Vol] 137 mmol/L Normal 135 - 145 mmol/L [facility] Remisol Urea nitrogen [Mass/Vol] 21 mg/dL Normal 5 - 21 mg/dL [facility] Remisol Urea nitrogen/Creatinine [Mass ratio] 19 mg/mg Normal 10 - 20 [facility] Remisol CHEMISTRYOrdered By: SYSTEM SYSTEM on 10-14-2021 Anion gap [Moles/Vol] 17 mmol/L High 6 - 16 mEq/L [facility] Remisol Calcium [Mass/Vol] 8.6 mg/dL Low 8.9 - 11. 1 mg/dL [facility] Chloride [Moles/Vol] 105 mmol/L Normal 101 - 1 11 mmol/L [facility] CO2 [Moles/Vol] 24 mmol/L Normal 21 - 31 mmol/L [facility] Creatinine [Mass/Vol] 1.5 mg/dL High 0.5 - 1.3 mg/dL [facility] GFR/1.73 sq M.predicted among blacks MDRD (S/P/Bld) [Vol rate/Area] 56 mL/min/1.73 m2 Low >=59mL/min /1.73 m2 [facility] Chem S GFR/1.73 sq M.predicted among non-blacks MDRD (S/P/Bld) [Vol rate/Area] 46 mL/min/1.73 m2 Low >=59mL/min /1.73 m2 [facility] Chem S Glucose [Mass/Vol] 125 mg/dL Normal 55 - 199 mg/dL [facility] Potassium [Moles/Vol] 4.7 mmol/L Normal 3.5 - 5.3 mmol/L [facility] Sodium [Moles/Vol] 141 mmol/L Normal 135 - 145 mmol/L [facility] Remisol Troponin I.cardiac [Mass/Vol] 11.00 pg/mL Low 15.90 - 38.40 pg/mL [facility] Remisol Urea nitrogen [Mass/Vol] 33 mg/dL High 5 - 21 mg/dL [facility] Remisol Urea nitrogen/Creatinine [Mass ratio] 22 mg/mg High 10 - 20 [facility] Remisol HEMATOLOGYOrdered By: SYSTEM SYSTEM on 10-14-2021 Basophils/100 WBC (Bld) 0.8 % Normal 0.0 - 2.0 % [facility] HemeAutoSS Basophils/Leukocytes Auto (Bld) [Pure # fraction] 0.1 E9/L Normal 0.0 - 0.2 E9/L [facility] HemeAutoSS Eosinophils/100 WBC (Bld) 2.8 % Normal 0.0 - 8.0 % [facility] HemeAutoSS Eosinophils/Leukocytes Auto (Bld) [Pure # fraction] 0.2 E9/L Normal 0.0 - 0.5 E9/L [facility] HemeAutoSS Lymphocytes/100 WBC (Bld) 20.8 % Normal 14.0 - 50.0 % [facility] HemeAutoSS Lymphocytes/Leukocytes Auto (Bld) [Pure # fraction] 1.8 E9/L Normal 1.0 - 4.0 E9/L [facility] HemeAutoSS Monocytes/100 WBC (Bld) 8.2 % Normal 4.0 - 14.0 % [facility] HemeAutoSS Monocytes/Leukocytes Auto (Bld) [Pure # fraction] 0.7 E9/L Normal 0.2 - 1.0 E9/L [facility] HemeAutoSS Neutrophils/100 WBC (Bld) 67.4 % Normal 36.0 - 75.0 % [facility] Neutrophils/Leukocytes Auto (Bld) [Pure # fraction] 5.8 E9/L Normal 2.0 - 7.5 E9/L [facility] HEMATOLOGYOrdered By: Pita Monahan on 10-14-2021 Erythrocyte distribution width (RBC) [Ratio] 17.5 % High 10.9 - 14.2 % [facility] Hematocrit (Bld) [Volume fraction] 29.2 % Low 37.7 - 49.0 % [facility] Hemoglobin (Bld) [Mass/Vol] 10.0 g/dL Low 13.5 - 17.5 gm/dL [facility] MCH (RBC) [Entitic mass] 29.6 pg Normal 27.0 - 34.0 pg [facility] MCHC (RBC) [Mass/Vol] 34.1 g/dL Normal 31.4 - 36.0 gm/dL [facility] MCV (RBC) [Entitic vol] 86.7 fL Normal 80.0 - 100.0 fL [facility] Platelet mean volume (Bld) [Entitic vol] 6.3 fL Low 6.4 - 10.8 fL [facility] Platelets (Bld) [#/Vol] 292.0 E9/L Normal 150.0 - 500.0 E9/L [facility] RBC (Bld) [#/Vol] 3.4 E12/L Low 4.3 - 5.9 E12/L [facility] WBC corrected for nucl RBC Auto (Bld) [#/Vol] 8.5 E9/L Normal 4.0 - 11.0 E9/L [facility] CHEMISTRYOrdered By: Yvon Decker on 10-13-2021 Glucose [Mass/Vol] 194 mg/dL High 55 - 99 mg/dL [facility] POC Subsection Comment on above: Result Comment: Kennedy papitothuan RN/MD POC Device SN [id number] Invalid Interpretation Code [facility] POC Subsection POC User ID [id number] Invalid Interpretation Code [facility] POC Subsection POC Username Estelita Hernandez Invalid Interpretation Code [facility] POC Subsection Glucose [Mass/Vol] 170 mg/dL High 55 - 99 mg/dL [facility] POC Subsection Comment on above: Result Comment: Kennedy papitothuan RN/MD POC Device SN [id number] Invalid Interpretation Code [facility] POC Subsection POC User ID [id number] Invalid Interpretation Code [facility] POC Subsection POC Username Estelita Hernandez Invalid Interpretation Code [facility] POC Subsection CHEMISTRYOrdered By: Lab ROP User on 10-12-2021 Glucose [Mass/Vol] 249 mg/dL High 55 - 99 mg/dL [facility] POC Subsection Comment on above: Result Comment: Kennedy papitothuan RN/MD POC Device SN [id number] Invalid Interpretation Code [facility] POC Subsection POC User ID [id number] Invalid Interpretation Code [facility] POC Subsection POC Username KULDEEP HERNANDEZ Invalid Interpretation Code [facility] POC Subsection CHEMISTRYOrdered By: SYSTEM SYSTEM on 10-11-2021 Anion gap [Moles/Vol] 12 mmol/L Normal 6 - 16 mEq/L [facility] Remisol Calcium [Mass/Vol] 9.0 mg/dL Normal 8.9 - 11. 1 mg/dL [facility] Chloride [Moles/Vol] 103 mmol/L Normal 101 - 1 11 mmol/L [facility] CO2 [Moles/Vol] 27 mmol/L Normal 21 - 31 mmol/L [facility] Creatinine [Mass/Vol] 1.1 mg/dL Normal 0.5 - 1.3 mg/dL [facility] GFR/1.73 sq M.predicted among blacks MDRD (S/P/Bld) [Vol rate/Area] mL/min/1.73 m2 Normal >=59mL/min /1.73 m2 [facility] Chem S GFR/1.73 sq M.predicted among non-blacks MDRD (S/P/Bld) [Vol rate/Area] mL/min/1.73 m2 Normal >=59mL/min /1.73 m2 [facility] Chem S Glucose [Mass/Vol] 150 mg/dL Normal 55 - 199 mg/dL [facility] Potassium [Moles/Vol] 4.5 mmol/L Normal 3.5 - 5.3 mmol/L [facility] Sodium [Moles/Vol] 137 mmol/L Normal 135 - 145 mmol/L [facility] Urea nitrogen [Mass/Vol] 26 mg/dL High 5 - 21 mg/dL [facility] Urea nitrogen/Creatinine [Mass ratio] 24 mg/mg High 10 - 20 [facility] HEMATOLOGYOrdered By: Spiracur SYSTEM on 10-11-2021 Basophils/100 WBC (Bld) 0.5 % Normal 0.0 - 2.0 % [facility] Basophils/Leukocytes Auto (Bld) [Pure # fraction] 0.1 E9/L Normal 0.0 - 0.2 E9/L [facility] Eosinophils/100 WBC (Bld) 2.1 % Normal 0.0 - 8.0 % [facility] Eosinophils/Leukocytes Auto (Bld) [Pure # fraction] 0.2 E9/L Normal 0.0 - 0.5 E9/L [facility] Lymphocytes/100 WBC (Bld) 15.3 % Normal 14.0 - 50.0 % [facility] Lymphocytes/Leukocytes Auto (Bld) [Pure # fraction] 1.5 E9/L Normal 1.0 - 4.0 E9/L [facility] Monocytes/100 WBC (Bld) 8.3 % Normal 4.0 - 14.0 % [facility] Monocytes/Leukocytes Auto (Bld) [Pure # fraction] 0.8 E9/L Normal 0.2 - 1.0 E9/L [facility] Neutrophils/100 WBC (Bld) 73.8 % Normal 36.0 - 75.0 % [facility] Neutrophils/Leukocytes Auto (Bld) [Pure # fraction] 7.4 E9/L Normal 2.0 - 7.5 E9/L [facility] HEMATOLOGYOrdered By: Marlee Pacheco on 10-11-2021 Erythrocyte distribution width (RBC) [Ratio] 17.3 % High 10.9 - 14.2 % [facility] Hematocrit (Bld) [Volume fraction] 32.7 % Low 37.7 - 49.0 % [facility] Hemoglobin (Bld) [Mass/Vol] 10.8 g/dL Low 13.5 - 17.5 gm/dL [facility] MCH (RBC) [Entitic mass] 28.8 pg Normal 27.0 - 34.0 pg [facility] MCHC (RBC) [Mass/Vol] 32.9 g/dL Normal 31.4 - 36.0 gm/dL [facility] MCV (RBC) [Entitic vol] 87.5 fL Normal 80.0 - 100.0 fL [facility] Platelet mean volume (Bld) [Entitic vol] 6.8 fL Normal 6.4 - 10.8 fL [facility] Platelets (Bld) [#/Vol] 241.0 E9/L Normal 150.0 - 500.0 E9/L [facility] RBC (Bld) [#/Vol] 3.7 E12/L Low 4.3 - 5.9 E12/L [facility] WBC corrected for nucl RBC Auto (Bld) [#/Vol] 10.0 E9/L Normal 4.0 - 11.0 E9/L [facility] CHEMISTRYOrdered By: Sohan Sosa on 10-08-2021 Anion gap [Moles/Vol] 11 mmol/L Normal 6 - 16 mEq/L [facility] Calcium [Mass/Vol] 8.3 mg/dL Low 8.9 - 11. 1 mg/dL [facility] Chloride [Moles/Vol] 103 mmol/L Normal 101 - 1 11 mmol/L [facility] CO2 [Moles/Vol] 27 mmol/L Normal 21 - 31 mmol/L [facility] Creatinine [Mass/Vol] 1.4 mg/dL High 0.5 - 1.3 mg/dL [facility] Comment on above: Result Comment: Resu lt S_CREA:1.40 Called to MAYURI WOMACK AT 3N by TABATHA SOSA And Read Back For Confirmation at: 10/08/2021 06:06:20 Glucose [Mass/Vol] 132 mg/dL Normal 55 - 199 mg/dL [facility] Potassium [Moles/Vol] 4.6 mmol/L Normal 3.5 - 5.3 mmol/L [facility] Sodium [Moles/Vol] 136 mmol/L Normal 135 - 145 mmol/L [facility] Urea nitrogen [Mass/Vol] 31 mg/dL High 5 - 21 mg/dL [facility] Urea nitrogen/Creatinine [Mass ratio] 22 mg/mg High 10 - 20 [facility] CHEMISTRYOrdered By: SYSTEM SYSTEM on 10-08-2021 GFR/1.73 sq M.predicted among blacks MDRD (S/P/Bld) [Vol rate/Area] 60 mL/min/1.73 m2 Normal >=59mL/min /1.73 m2 [facility] Chem S GFR/1.73 sq M.predicted among non-blacks MDRD (S/P/Bld) [Vol rate/Area] 50 mL/min/1.73 m2 Low >=59mL/min /1.73 m2 [facility] Chem S Laboratory - Microbiology an d Antimicrobial susceptibilityon 10-08-2021 Bacteria identified Cx Nom (U) 2,000 cfu/ml Mixed skin contaminants [facility] CHEMISTRYOrdered By: SYSTEM SYSTEM on 10-07-2021 25-hydroxyvitamin D3 [Mass/Vol] 33.9 ng/mL Normal 30.0 - 100.0 ng/mL [facility] Anion gap [Moles/Vol] 12 mmol/L Normal 6 - 16 mEq/L [facility] Calcium [Mass/Vol] 8.4 mg/dL Low 8.9 - 11. 1 mg/dL [facility] Chloride [Moles/Vol] 102 mmol/L Normal 101 - 1 11 mmol/L [facility] CO2 [Moles/Vol] 30 mmol/L Normal 21 - 31 mmol/L [facility] Cobalamin (Vitamin B12) [Mass/Vol] 249 pg/mL Normal 50 - 1500 pg/mL [facility] Creatinine [Mass/Vol] 1.9 mg/dL High 0.5 - 1.3 mg/dL [facility] Folate [Mass/Vol] 11.0 ng/mL Normal >=6.7ng/mL [facility] GFR/1.73 sq M.predicted among blacks MDRD (S/P/Bld) [Vol rate/Area] 42 mL/min/1.73 m2 Low >=59mL/min /1.73 m2 [facility] Chem S GFR/1.73 sq M.predicted among non-blacks MDRD (S/P/Bld) [Vol rate/Area] 35 mL/min/1.73 m2 Low >=59mL/min /1.73 m2 [facility] Chem S Glucose [Mass/Vol] 135 mg/dL Normal 55 - 199 mg/dL [facility] Magnesium [Mass/Vol] 2.1 mg/dL Normal 1.3 - 2 .4 mg/dL [facility] Potassium [Moles/Vol] 4.7 mmol/L Normal 3.5 - 5.3 mmol/L [facility] Sodium [Moles/Vol] 139 mmol/L Normal 135 - 145 mmol/L [facility] Urea nitrogen [Mass/Vol] 44 mg/dL High 5 - 21 mg/dL [facility] Urea nitrogen/Creatinine [Mass ratio] 23 mg/mg High 10 - 20 [facility] Remisol Reference Laboratory Testing Ordered By: Generated DomainUser on 10-07-2021 Reagin Ab RPR Ql (S) Non-Reactive Invalid Interpretation Code Non Reactive [facility] SendOutsSS Comment on above: Result Comment: Perf ormed at: [facility] [address] [id number] PhD Erick Nielsen URINALYSISOrdered By: Shannon Dobbs on 10-07-2021 Bilirubin Ql (U) Negative (10/07/21 4:00 PM) Normal Negative [facility] UA Auto SS Clarity (U) Clear (10/07/21 4:00 PM) Normal Clear [facility] UA Auto SS Color (U) Yellow (10/07/21 4:00 PM) Normal Yellow [facility] UA Auto SS Epithelial cells.squamous LM.HPF (Urine sed) [#/Area] 0-2 /HPF Normal 0-2/HPF [facility] UA Auto SS Glucose Test strip (U) [Mass/Vol] Negative (10/07/21 4:00 PM) Normal Negative [facility] UA Auto SS Hemoglobin Ql (U) Trace *ABN* (10/07/21 4:00 PM) Invalid Interpretation Code Negative [facility] UA Auto SS Ketones (U) [Mass/Vol] Negative (10/07/21 4:00 PM) Normal Negative [facility] UA Auto SS [place].plasma/[place] .RBC (Bld) [Mass ratio] 0-3 /HPF Normal 0-3/HPF [facility] UA Auto SS Nitrite Ql (U) Negative (10/07/21 4:00 PM) Normal Negative [facility] UA Auto SS pH (U) 6.0 *NA* (10/07/21 4:00 PM) Invalid Interpretation Code 5.0 - 9.0 [facility] UA Auto SS Protein (U) [Mass/Vol] Negative (10/07/21 4:00 PM) Normal Negative [facility] UA Auto SS Specific gravity (U) [Rel density] 1.010 *NA* (10/07/21 4:00 PM) Invalid Interpretation Code 1.005 - 1.030 [facility] UA Auto SS UA Spec Desc Catheter (10/07/21 4:00 PM) Normal [facility] UA Auto SS Urobilinogen Qn (U) 0.4884352 {Gabby'U}/dL Normal 0.0 - 1.0 EU/dL [facility] UA Auto SS WBC Auto Ql (U) Negative (10/07/21 4:00 PM) Normal Negative [facility] UA Auto SS WBC LM.HPF (Urine sed) [#/Area] 0-5 /HPF Normal 0-5/HPF [facility] UA Auto SS CHEMISTRYOrdered By: Jb gant on 10-06-2021 Amphetamines Screen method >1000 ng/mL Ql (U) Negative (10/06/21 8:50 PM) Normal Negative [facility] Barbiturates Screen Ql (U) Negative (10/06/21 8:50 PM) Normal Negative [facility] Benzodiazepines Ql (U) Positive 1 *ABN* (10/06/21 8:50 PM) Invalid Interpretation Code Negative [facility] Comment on above: Result Comment: Crit ical Result verified by repeat analysis\No confirmation requested by Physican\Unconfirmed by alternate method\Critical Result UD_BENZ:POS Called to YADY ABBOTT AT by JB CUEVAS And Read Back For Confirmation at: 10/06/2021 21:26:59 Cocaine Ql (U) Negative (10/06/21 8:50 PM) Normal Negative [facility] Opiates Screen Ql (U) Negative (10/06/21 8:50 PM) Normal Negative [facility] Phencyclidine Screen method >25 ng/mL Ql (U) Negative (10/06/21 8:50 PM) Normal Negative [facility] Tetrahydrocannabinol Screen method >50 ng/mL Ql (U) Negative (10/06/21 8:50 PM) Normal Negative [facility] Albumin [Mass/Vol] 4.0 g/dL Normal 3.3 - 5.0 gm/dL [facility] Albumin/Globulin [Mass ratio] 1.1 {ratio} Normal 1.1 - 2.2 [facility] ALP [Catalytic activity/Vol] 65 [iU]/d Normal 21 - 98 Int._Unit/ L [facility] ALT No additional P-5'-P [Catalytic activity/Vol] 60 [iU]/d High 6 - 46 Int._Unit/ L [facility] Anion gap [Moles/Vol] 15 mmol/L Normal 6 - 16 mEq/L [facility] AST [Catalytic activity/Vol] 27 [iU]/d Normal 5 - 43 Int._Unit/ L [facility] Bilirubin [Mass/Vol] 0.5 mg/dL Normal 0.0 - 1 .1 mg/dL [facility] Calcium [Mass/Vol] 8.6 mg/dL Low 8.9 - 11. 1 mg/dL [facility] Chloride [Moles/Vol] 98 mmol/L Low 101 - 1 11 mmol/L [facility] CO2 [Moles/Vol] 26 mmol/L Normal 21 - 31 mmol/L [facility] Creatinine [Mass/Vol] 2.1 mg/dL High 0.5 - 1.3 mg/dL [facility] Ferritin [Mass/Vol] 233 ng/mL Normal 24 - 336 ng/mL [facility] Globulin (S) [Mass/Vol] 3.6 g/dL Normal 1.4 - 4.0 gm/dL [facility] Glucose [Mass/Vol] 267 mg/dL High 55 - 199 mg/dL [facility] Iron [Mass/Vol] 52 ug/dL Normal 35 - 153 mcg/dL [facility] Iron binding capacity [Mass/Vol] 324 ug/dL Normal 250 - 400 mcg/dL [facility] Iron saturation [Mass fraction] 16 % Low 20 - 50 % [facility] Potassium [Moles/Vol] 4.9 mmol/L Normal 3.5 - 5.3 mmol/L [facility] Protein [Mass/Vol] 7.6 g/dL Normal 6.0 - 7.8 gm/dL [facility] Sodium [Moles/Vol] 134 mmol/L Low 135 - 145 mmol/L [facility] Transferrin [Mass/Vol] 232 mg/dL Normal 200 - 370 mg/dL [facility] Urea nitrogen [Mass/Vol] 49 mg/dL High 5 - 21 mg/dL [facility] Urea nitrogen/Creatinine [Mass ratio] 23 mg/mg High 10 - 20 [facility] Free T4 [Mass/Vol] 0.68 ng/dL Normal 0.58 - 1.64 ng/dL [facility] CHEMISTRYOrdered By: SYSTEM SYSTEM on 10-06-2021 GFR/1.73 sq M.predicted among blacks MDRD (S/P/Bld) [Vol rate/Area] 38 mL/min/1.73 m2 Low >=59mL/min /1.73 m2 [facility] Chem S GFR/1.73 sq M.predicted among non-blacks MDRD (S/P/Bld) [Vol rate/Area] 31 mL/min/1.73 m2 Low >=59mL/min /1.73 m2 [facility] Chem S Albumin [Mass/Vol] 3.9 g/dL Normal 3.3 - 5.0 gm/dL [facility] Albumin/Globulin [Mass ratio] 1.1 {ratio} Normal 1.1 - 2.2 [facility] ALP [Catalytic activity/Vol] 65 [iU]/d Normal 21 - 98 Int._Unit/ L [facility] ALT No additional P-5'-P [Catalytic activity/Vol] 63 [iU]/d High 6 - 46 Int._Unit/ L [facility] AST [Catalytic activity/Vol] 29 [iU]/d Normal 5 - 43 Int._Unit/ L [facility] Bilirubin [Mass/Vol] 0.5 mg/dL Normal 0.0 - 1 .1 mg/dL [facility] Bilirubin.direct [Mass/Vol] mg/dL Normal 0.1 - 0.4 mg/dL [facility] Bilirubin.indirect [Mass or moles/Vol] Unable to Calculate mg/dL Invalid Interpretation Code 0.1 - 0.9 mg/dL [facility] Ethanol [Mass/Vol] mg/dL Normal <=7mg/dL [facility] Globulin (S) [Mass/Vol] 3.6 g/dL Normal 1.4 - 4.0 gm/dL [facility] Magnesium [Mass/Vol] 2.0 mg/dL Normal 1.3 - 2 .4 mg/dL [facility] Protein [Mass/Vol] 7.5 g/dL Normal 6.0 - 7.8 gm/dL [facility] Troponin I.cardiac [Mass/Vol] 13.40 pg/mL Low 15.90 - 38.40 pg/mL [facility] TSH Qn 31.54 m[IU]/L High 0.34 - 5.60 mcIU/mL [facility] COAGULATIONOrdered By: Jose R Dobbs on 10-06-2021 aPTT Coag (PPP) [Time] 37.2 s High 25.1 - 36.5 second(s) [facility] Auto Coag INR Coag (PPP) [Relative time] 1.5 {INR} Invalid Interpretation Code [facility] Auto Coag PT Coag (PPP) [Time] 17.5 s High 10.2 - 12.9 second(s) [facility] Auto Coag FT Blood GasesOrdered By: Ra layne Monique on 10-06-2021 a/A Ratio Art 79.70 % Normal >=0.80% [facility] Resp Auto SS AaDO2 Art 19.4 mm[Hg] High 5.0 - 15.0 mmHg [facility] Resp Auto SS Allens Test Positive (10/06/21 6:03 PM) Normal [facility] Resp Auto SS Base Excess Arterial 1.8 mmol/L Low >=2.8mm ol/ L [facility] Resp Auto SS cCa2+ Art 4.47 mg/dL Normal 4.40 - 5.30 mg/dL [facility] Resp Auto SS cCl- Art 101.0 mmol/L Normal 101.0 - 111.0 mmol/L [facility] Resp Auto SS cGlu Art 269 mg/dL High 55 - 99 mg/dL [facility] Resp Auto SS cK+ Art 5.0 mmol/L Normal 3.5 - 5.3 mmol/L [facility] Resp Auto SS cLac Art 1.9 mmol/L Normal 0.5 - 2.2 mmol/L [facility] Resp Auto SS manager park+ Art 139.0 mmol/L Normal 135.0 - 145.0 mmol/L [facility] Resp Auto SS Drawn by RLG Invalid Interpretation Code [facility] Resp Auto SS FCOHb Art % Low 1.5 - 4.9 % [facility] Resp Auto SS FIO2 BG 21 Invalid Interpretation Code [facility] Resp Auto SS FMetHb Art 0.9 % Normal 0.0 - 1.9 % [facility] Resp Auto SS FO2Hb Art 92.6 % Low 93.0 - 100.0 % [facility] Resp Auto SS HCO3 (Bld) [Moles/Vol] 25.9 mmol/L Normal 22.0 - 26.0 mmol/L [facility] Resp Auto SS Hemoglobin (Bld) [Mass/Vol] 10.6 g/dL Low 12.0 - 17.0 gm/dL [facility] Resp Auto SS P CO2 Arterial 44.8 mm[Hg] Normal 35.0 - 45.0 mmHg [facility] Resp Auto SS P O2 Arterial 75.9 mm[Hg] Low 80.0 - 100.0 mmHg [facility] Resp Auto SS pH Arterial 7.391 Normal 7.350 - 7.450 [facility] Resp Auto SS Sample Site R Radial (10/06/21 6:03 PM) Normal [facility] Resp Auto SS Sample Type Arterial Draw (10/06/21 6:03 PM) Normal [facility] Resp Auto SS HEMATOLOGYOrdered By: SYSTEM SYSTEM on 10-06-2021 Basophils/100 WBC (Bld) 1.0 % Normal 0.0 - 2.0 % [facility]eAutoSS Basophils/Leukocytes Auto (Bld) [Pure # fraction] 0.1 E9/L Normal 0.0 - 0.2 E9/L [facility] Eosinophils/100 WBC (Bld) 3.4 % Normal 0.0 - 8.0 % [facility] Eosinophils/Leukocytes Auto (Bld) [Pure # fraction] 0.2 E9/L Normal 0.0 - 0.5 E9/L [facility] Lymphocytes/100 WBC (Bld) 23.3 % Normal 14.0 - 50.0 % [facility] Lymphocytes/Leukocytes Auto (Bld) [Pure # fraction] 1.6 E9/L Normal 1.0 - 4.0 E9/L [facility] Monocytes/100 WBC (Bld) 7.7 % Normal 4.0 - 14.0 % [facility] Monocytes/Leukocytes Auto (Bld) [Pure # fraction] 0.5 E9/L Normal 0.2 - 1.0 E9/L [facility] Neutrophils/100 WBC (Bld) 64.6 % Normal 36.0 - 75.0 % [facility] Neutrophils/Leukocytes Auto (Bld) [Pure # fraction] 4.5 E9/L Normal 2.0 - 7.5 E9/L [facility] Basophils/100 WBC (Bld) 1.2 % Normal 0.0 - 2.0 % [facility] Basophils/Leukocytes Auto (Bld) [Pure # fraction] 0.1 E9/L Normal 0.0 - 0.2 E9/L [facility] Eosinophils/100 WBC (Bld) 3.3 % Normal 0.0 - 8.0 % [facility] Eosinophils/Leukocytes Auto (Bld) [Pure # fraction] 0.2 E9/L Normal 0.0 - 0.5 E9/L [facility] Lymphocytes/100 WBC (Bld) 21.3 % Normal 14.0 - 50.0 % [facility] Lymphocytes/Leukocytes Auto (Bld) [Pure # fraction] 1.6 E9/L Normal 1.0 - 4.0 E9/L [facility] Monocytes/100 WBC (Bld) 7.0 % Normal 4.0 - 14.0 % [facility] Monocytes/Leukocytes Auto (Bld) [Pure # fraction] 0.5 E9/L Normal 0.2 - 1.0 E9/L [facility] Neutrophils/100 WBC (Bld) 67.2 % Normal 36.0 - 75.0 % [facility] Neutrophils/Leukocytes Auto (Bld) [Pure # fraction] 5.0 E9/L Normal 2.0 - 7.5 E9/L [facility] HEMATOLOGYOrdered By: Minerva Hill on 10-06-2021 Erythrocyte distribution width (RBC) [Ratio] 17.6 % High 10.9 - 14.2 % [facility] Hematocrit (Bld) [Volume fraction] 33.0 % Low 37.7 - 49.0 % [facility] Hemoglobin (Bld) [Mass/Vol] 10.8 g/dL Low 13.5 - 17.5 gm/dL [facility] MCH (RBC) [Entitic mass] 28.6 pg Normal 27.0 - 34.0 pg [facility] MCHC (RBC) [Mass/Vol] 32.7 g/dL Normal 31.4 - 36.0 gm/dL [facility] MCV (RBC) [Entitic vol] 87.5 fL Normal 80.0 - 100.0 fL [facility] Platelet mean volume (Bld) [Entitic vol] 6.8 fL Normal 6.4 - 10.8 fL [facility] Platelets (Bld) [#/Vol] 235.0 E9/L Normal 150.0 - 500.0 E9/L [facility] RBC (Bld) [#/Vol] 3.8 E12/L Low 4.3 - 5.9 E12/L [facility] WBC corrected for nucl RBC Auto (Bld) [#/Vol] 7.0 E9/L Normal 4.0 - 11.0 E9/L [facility] Erythrocyte distribution width (RBC) [Ratio] 17.8 % High 10.9 - 14.2 % [facility] Hematocrit (Bld) [Volume fraction] 32.6 % Low 37.7 - 49.0 % [facility] Hemoglobin (Bld) [Mass/Vol] 10.7 g/dL Low 13.5 - 17.5 gm/dL [facility] MCH (RBC) [Entitic mass] 28.7 pg Normal 27.0 - 34.0 pg [facility] MCHC (RBC) [Mass/Vol] 32.9 g/dL Normal 31.4 - 36.0 gm/dL [facility] MCV (RBC) [Entitic vol] 87.3 fL Normal 80.0 - 100.0 fL [facility] Platelet mean volume (Bld) [Entitic vol] 6.9 fL Normal 6.4 - 10.8 fL [facility] Platelets (Bld) [#/Vol] 233.0 E9/L Normal 150.0 - 500.0 E9/L [facility] RBC (Bld) [#/Vol] 3.7 E12/L Low 4.3 - 5.9 E12/L [facility] HemeAutoSS WBC corrected for nucl RBC Auto (Bld) [#/Vol] 7.4 E9/L Normal 4.0 - 11.0 E9/L [facility] HemeAutoSS Laboratory - Microbiology an d Antimicrobial susceptibilityon 10-06-2021 Bacteria identified Cx Nom (U) 1,000 cfu/ml Mixed skin contaminants [facility] MICRO OTHER TESTSOrdered By: Jb Cuevas on 10-06-2021 Rapid COV Int NEG Ctl Pass (10/06/21 8:55 PM) Normal [facility] Man Sero Rapid COV Int POS Ctl Pass (10/06/21 8:55 PM) Normal [facility] SARS-CoV+SARS-CoV-2 (COVID-19) Ag IA.rapid Ql (Resp) Not Detected (10/06/21 8:55 PM) Normal Not Detected [facility] No Panel Informationon 10-06 Blood Culture Charcoal No growth at 6 da ys. Final to follow at 7 days. [facility] Blood Culture Charcoal No growth at 6 da ys. Final to follow at 7 days. [facility] URINALYSISOrdered By: Jb jeter on 10-06-2021 Bilirubin Ql (U) Negative (10/06/21 8:50 PM) Normal Negative [facility] UA Auto SS Clarity (U) Clear (10/06/21 8:50 PM) Normal Clear [facility] UA Auto SS Color (U) Yellow (10/06/21 8:50 PM) Normal Yellow [facility] UA Auto SS Crystals LM Ql (Urine sed) Present (10/06/21 8:50 PM) Normal [facility] UA Auto SS Epithelial cells.squamous LM.HPF (Urine sed) [#/Area] 0-2 /HPF Normal 0-2/HPF [facility] UA Auto SS Glucose Test strip (U) [Mass/Vol] Trace *ABN* (10/06/21 8:50 PM) Invalid Interpretation Code Negative [facility] UA Auto SS Hemoglobin Ql (U) Negative (10/06/21 8:50 PM) Normal Negative [facility] UA Auto SS Ketones (U) [Mass/Vol] Negative (10/06/21 8:50 PM) Normal Negative [facility] UA Auto SS [place].plasma/[place] .RBC (Bld) [Mass ratio] 0-3 /HPF Normal 0-3/HPF [facility] UA Auto SS Mucus Ql (Urine sed) Trace (10/06/21 8:50 PM) Normal [facility] UA Auto SS Nitrite Ql (U) Negative (10/06/21 8:50 PM) Normal Negative [facility] UA Auto SS pH (U) 5.5 *NA* (10/06/21 8:50 PM) Invalid Interpretation Code 5.0 - 9.0 [facility] UA Auto SS Protein (U) [Mass/Vol] Negative (10/06/21 8:50 PM) Normal Negative [facility] UA Auto SS Specific gravity (U) [Rel density] 1.010 *NA* (10/06/21 8:50 PM) Invalid Interpretation Code 1.005 - 1.030 [facility] UA Auto SS UA Spec Desc Clean Catch (10/06/21 8:50 PM) Normal [facility] UA Auto SS Urobilinogen Qn (U) [id number] {Gabby'U}/dL Normal 0.0 - 1.0 EU/dL [facility] UA Auto SS WBC Auto Ql (U) Trace *ABN* (10/06/21 8:50 PM) Invalid Interpretation Code Negative [facility] UA Auto SS WBC LM.HPF (Urine sed) [#/Area] 0-5 /HPF Normal 0-5/HPF [facility] UA Auto SS CHEMISTRYOrdered By: SYSTEM SYSTEM on 08-31-2021 Albumin [Mass/Vol] 4.3 g/dL Normal 3.3 - 5.0 gm/dL [facility] Remisol Albumin/Globulin [Mass ratio] 1.0 {ratio} Low 1.1 - 2.2 [facility] Remisol ALP [Catalytic activity/Vol] 88 [iU]/d Normal 21 - 98 Int._Unit/ L [facility] Rem[facility] ALT No additional P-5'-P [Catalytic activity/Vol] 54 [iU]/d High 6 - 46 Int._Unit/ L [facility] Rem[facility] Anion gap [Moles/Vol] 15 mmol/L Normal 6 - 16 mEq/L [facility] AST [Catalytic activity/Vol] 32 [iU]/d Normal 5 - 43 Int._Unit/ L [facility] Bilirubin [Mass/Vol] 0.6 mg/dL Normal 0.0 - 1 .1 mg/dL [facility] Calcium [Mass/Vol] 9.2 mg/dL Normal 8.9 - 11. 1 mg/dL [facility] Chloride [Moles/Vol] 98 mmol/L Low 101 - 1 11 mmol/L [facility] CO2 [Moles/Vol] 26 mmol/L Normal 21 - 31 mmol/L [facility] Creatinine [Mass/Vol] 1.3 mg/dL Normal 0.5 - 1.3 mg/dL [facility] Ferritin [Mass/Vol] 297 ng/mL Normal 24 - 336 ng/mL [facility] Remisol GFR/1.73 sq M.predicted among blacks MDRD (S/P/Bld) [Vol rate/Area] mL/min/1.73 m2 Normal >=59mL/min /1.73 m2 [facility] Chem S GFR/1.73 sq M.predicted among non-blacks MDRD (S/P/Bld) [Vol rate/Area] 54 mL/min/1.73 m2 Low >=59mL/min /1.73 m2 [facility] S Globulin (S) [Mass/Vol] 4.4 g/dL High 1.4 - 4.0 gm/dL [facility] Remisol Glucose [Mass/Vol] 134 mg/dL Normal 55 - 199 mg/dL [facility] Iron [Mass/Vol] 59 ug/dL Normal 35 - 153 mcg/dL [facility] Iron binding capacity [Mass/Vol] 329 ug/dL Normal 250 - 400 mcg/dL [facility] Rem[facility] Iron saturation [Mass fraction] 18 % Low 20 - 50 % [facility] Potassium [Moles/Vol] 4.7 mmol/L Normal 3.5 - 5.3 mmol/L [facility] Remisol Protein [Mass/Vol] 8.7 g/dL High 6.0 - 7.8 gm/dL [facility] Sodium [Moles/Vol] 134 mmol/L Low 135 - 145 mmol/L [facility] Transferrin [Mass/Vol] 235 mg/dL Normal 200 - 370 mg/dL [facility] Urea nitrogen [Mass/Vol] 28 mg/dL High 5 - 21 mg/dL [facility] Rem[facility] Urea nitrogen/Creatinine [Mass ratio] 22 mg/mg High 10 - 20 [facility] Remisol HEMATOLOGYOrdered By: SYSTEM SYSTEM on 08-31-2021 Basophils/100 WBC (Bld) 1.3 % Normal 0.0 - 2.0 % [facility] HemeAutoSS Basophils/Leukocytes Auto (Bld) [Pure # fraction] 0.1 E9/L Normal 0.0 - 0.2 E9/L [facility] HemeAutoSS Eosinophils/100 WBC (Bld) 2.1 % Normal 0.0 - 8.0 % [facility] HemeAutoSS Eosinophils/Leukocytes Auto (Bld) [Pure # fraction] 0.2 E9/L Normal 0.0 - 0.5 E9/L [facility] HemeAutoSS Lymphocytes/100 WBC (Bld) 17.4 % Normal 14.0 - 50.0 % [facility] HemeAutoSS Lymphocytes/Leukocytes Auto (Bld) [Pure # fraction] 1.7 E9/L Normal 1.0 - 4.0 E9/L [facility] HemeAutoSS Monocytes/100 WBC (Bld) 6.7 % Normal 4.0 - 14.0 % [facility] HemeAutoSS Monocytes/Leukocytes Auto (Bld) [Pure # fraction] 0.6 E9/L Normal 0.2 - 1.0 E9/L [facility] HemeAutoSS Neutrophils/100 WBC (Bld) 72.5 % Normal 36.0 - 75.0 % [facility] HemeAutoSS Neutrophils/Leukocytes Auto (Bld) [Pure # fraction] 7.0 E9/L Normal 2.0 - 7.5 E9/L [facility] HemeAutoSS HEMATOLOGYOrdered By: [place]a [place] on 08-31-2021 Erythrocyte distribution width (RBC) [Ratio] 18.7 % High 10.9 - 14.2 % [facility] Hematocrit (Bld) [Volume fraction] 35.4 % Low 37.7 - 49.0 % [facility] Hemoglobin (Bld) [Mass/Vol] 11.8 g/dL Low 13.5 - 17.5 gm/dL [facility] MCH (RBC) [Entitic mass] 28.0 pg Normal 27.0 - 34.0 pg [facility] MCHC (RBC) [Mass/Vol] 33.5 g/dL Normal 31.4 - 36.0 gm/dL [facility] MCV (RBC) [Entitic vol] 83.7 fL Normal 80.0 - 100.0 fL [facility] Platelet mean volume (Bld) [Entitic vol] 6.5 fL Normal 6.4 - 10.8 fL [facility] Platelets (Bld) [#/Vol] 312.0 E9/L Normal 150.0 - 500.0 E9/L [facility] RBC (Bld) [#/Vol] 4.2 E12/L Low 4.3 - 5.9 E12/L [facility] WBC corrected for nucl RBC Auto (Bld) [#/Vol] 9.6 E9/L Normal 4.0 - 11.0 E9/L [facility] Tobacco Screening.on 022 Adult depression screening assessment No [facility] shopp 600 DO Work Phone: Fall risk assessment b) One or more fall s in the last year [facility] DO Work Phone: Tobacco use status CPH[facility] b) No [facility] shopp 600 DO Work Phone: Comprehensive Metabolic Pane victor m 08-11-2021 Albumin [Mass/Vol] 4.6 g/dL Normal 3.6-5.1 Susan mcclelland [employer] Comment on above: Performed By: #### C MP #### [facility] [address], [place] [id number] Albumin/Globulin [Mass ratio] 1.6 {ratio} Normal 1.0-2.5 [facility] Specialist Comment on above: Performed By: #### C MP #### [facility] [address], [place] [id number] ALP [Catalytic activity/Vol] 101 U/L Normal 40-129 [facility] Comment on above: Performed By: #### C MP #### [facility] [address], [place] [id number] ALT [Catalytic activity/Vol] 26 U/L Normal 9-46 [facility] [employer] Comment on above: Result Comment: 05/04 Female reference range changed. Performed By: #### C MP #### [facility] [address], [place] [id number] Anion gap [Moles/Vol] 20 mmol/L Normal 12-20 [facility] Comment on above: Result Comment: Effe ctive 06/09/2019 reference range changed. Performed By: #### C MP #### [facility] [address], [place] [id number] AST [Catalytic activity/Vol] 17 U/L Normal 10-40 [facility] Comment on above: Performed By: #### C MP #### [facility] [address], [place] [id number] BUN/CREA 19 Ratio Normal 6-22 [facility] Comment on above: Performed By: #### C MP #### [facility] [address], [place] [id number] Calcium [Mass/Vol] 9.0 mg/dL Normal 8.6-10.2 [facility] Comment on above: Performed By: #### C MP #### [facility] [address], [place] [id number] Chloride [Moles/Vol] 101 mmol/L Normal 98-107 [facility] Comment on above: Performed By: #### C MP #### [facility] [address], [place] [id number] CO2 [Moles/Vol] 24 mmol/L Normal 20-31 [facility] Comment on above: Performed By: #### C MP #### [facility] [address], [place] [id number] Creatinine [Mass/Vol] 1.4 mg/dL Normal 0.7-1.4 [facility] Comment on above: Performed By: #### C MP #### [facility] [address], [place] [id number] eGFRAA 63 mL/min/1.73m2 Normal >60 [facility] Comment on above: Performed By: #### C MP #### [facility] [address], [place] [id number] eGFRNAA 52 mL/min/1.73m2 Low >60 [facility] Comment on above: Performed By: #### C MP #### [facility] [address], [place] [id number] Globulin (S) [Mass/Vol] 2.8 g/dL Normal 1.9-3.7 [facility] Comment on above: Performed By: #### C MP #### [facility] [address], [place] [id number] Glucose [Mass/Vol] 197 mg/dL High 65-99 [facility] Specialist Comment on above: Result Comment: For FASTING Glucose --- ADA reference ranges: Normal 65-99 mg/dl Prediabetes 100-125 Diabetes >/= 126 Performed By: #### C MP #### [facility] [address], [place] [id number] Potassium [Moles/Vol] 5.1 mmol/L Normal 3.5-5.5 [facility] Comment on above: Performed By: #### C MP #### [facility] [address], [place] [id number] Protein [Mass/Vol] 7.4 g/dL Normal 6.1-8.1 [facility] Specialist Comment on above: Performed By: #### C MP #### [facility] [address], [place] [id number] Sodium [Moles/Vol] 140 mmol/L Normal 135-146 [facility] Specialist Comment on above: Performed By: #### C MP #### [facility] [address], [place] [id number] TBIL <0.3 Normal [facility] Comment on above: Performed By: #### C MP #### [facility] [address], [place] [id number] Urea nitrogen [Mass/Vol] 25 mg/dL Normal 7-25 [facility] Comment on above: Performed By: #### C MP #### [facility] [address], [place] [id number] Complete Blood Count with Au to Diffon 07-27-2021 Basophils (Bld) [#/Vol] 0.11 10*3/uL Normal 0.00-0.20 [facility] Comment on above: Performed By: #### C BCAD, CMP #### [facility] [address], [place] [id number] Basophils/100 WBC (Bld) 0.9 % Normal [facility] Comment on above: Performed By: #### Talya HUNT, CMP #### [facility] [address], [place] [id number] Eosinophils (Bld) [#/Vol] 0.24 10*3/uL Normal 0.02-0.50 [facility] [employer] Comment on above: Performed By: #### C MARILEE, CMP #### [facility] [address], [place] [id number] Eosinophils/100 WBC (Bld) 2.1 % Normal [facility] [employer] Comment on above: Performed By: #### Talya HUNT, CMP #### [facility] [address], [place] [id number] Erythrocyte distribution width (RBC) [Ratio] 16.9 % High 11.0-15.0 [facility] [employer] Comment on above: Performed By: #### Talya HUNT, CMP #### [facility] [address], [place] [id number] Hematocrit (Bld) [Volume fraction] 35.1 % Low 38.5-50.0 [facility] [employer] Comment on above: Performed By: #### Talya HUNT, CMP #### [facility] [address], [place] [id number] Hemoglobin (Bld) [Mass/Vol] 10.7 g/dL Low 13.0-17.1 [facility] [employer] Comment on above: Performed By: #### C BCAJacob, CMP #### [facility] [address], [place] [id number] Lymphocytes (Bld) [#/Vol] 2.0 10*3/uL Normal 0.9-3.9 [facility] Comment on above: Performed By: #### C BCAJacob, CMP #### [facility] [address], [place] [id number] Lymphocytes/100 WBC (Bld) 17.4 % Normal [facility] [employer] Comment on above: Performed By: #### C MARILEE, CMP #### [facility] [address], [place] [id number] MCH (RBC) [Entitic mass] 26.8 pg Low 27.0-33.0 [facility] Comment on above: Performed By: #### C MARILEE, CMP #### [facility] [address], [place] [id number] MCHC (RBC) [Mass/Vol] 30.5 g/dL Low 32.0-36.0 [facility] Comment on above: Performed By: #### C BCAJacob, CMP #### [facility] [address], [place] [id number] MCV (RBC) [Entitic vol] 88 fL Normal 80-100 [facility] Comment on above: Performed By: #### C BCAJacob, CMP #### [facility] [address], [place] [id number] Monocytes (Bld) [#/Vol] 0.8 10*3/uL Normal 0.2-0.9 [facility] Comment on above: Performed By: #### C BCAJacob, CMP #### [facility] [address], [place] [id number] Monocytes/100 WBC (Bld) 6.4 % Normal [facility] Comment on above: Performed By: #### C MARILEE, CMP #### [facility] [address], [place] [id number] Neutrophils (Bld) [#/Vol] 8.4 10*3/uL High 1.5-7.8 [facility] Comment on above: Performed By: #### C BCAD, CMP #### [facility] [address], [place] [id number] Neutrophils/100 WBC (Bld) 71.9 % Normal [facility] Comment on above: Performed By: #### C BCAD, CMP #### [facility] [address], [place] [id number] Platelet mean volume (Bld) [Entitic vol] 9.00 fL Normal 7.50-12.50 [facility] Comment on above: Performed By: #### C BCAD, CMP #### [facility] [address], [place] [id number] Platelets (Bld) [#/Vol] 406 10*3/uL High 140-400 [facility] Comment on above: Performed By: #### C BCAD, CMP #### [facility] [address], [place] [id number] RBC (Bld) [#/Vol] 3.99 10*6/uL Low 4.20-5.80 [facility] Comment on above: Performed By: #### C BCAD, CMP #### [facility] [address], [place] [id number] RDW-SD 54.1 fL High 37.0-50.0 [facility] Comment on above: Performed By: #### C BCAD, CMP #### [facility] [address], [place] [id number] WBC (Bld) [#/Vol] 11.7 10*3/uL High 3.8-11.0 [facility] Comment on above: Performed By: #### C BCAD, CMP #### [facility] [address], [place] [id number] Comprehensive Metabolic Pane [facility] 07-27-2021 Albumin [Mass/Vol] 4.7 g/dL Normal 3.6-5.1 [facility] Comment on above: Performed By: #### C BCAD, CMP #### [facility] [address], [place] [id number] Albumin/Globulin [Mass ratio] 1.5 {ratio} Normal 1.0-2.5 [facility] Comment on above: Performed By: #### C BCAD, CMP #### [facility] [address], [place] [id number] ALP [Catalytic activity/Vol] 137 U/L High 40-129 [facility] Comment on above: Performed By: #### C BCAD, CMP #### [facility] [address], [place] [id number] ALT [Catalytic activity/Vol] 43 U/L Normal 9-46 [facility] Comment on above: Result Comment: 05/04 Female reference range changed. Performed By: #### C BCAD, CMP #### [facility] [address], [place] [id number] Anion gap [Moles/Vol] 27 mmol/L High 12-20 [facility] Specialist Comment on above: Result Comment: Effkrystle ctive 06/09/2019 reference range changed. Performed By: #### C BCAD, CMP #### [facility] [address], [place] [id number] AST [Catalytic activity/Vol] 30 U/L Normal 10-40 [facility] Comment on above: Performed By: #### C BCAD, CMP #### [facility] [address], [place] [id number] Bilirubin [Mass/Vol] 0.32 mg/dL Normal 0.30-1.20 [facility] Comment on above: Performed By: #### C BCAD, CMP #### [facility] [address], [place] [id number] BUN/CREA 29 Ratio High 6-22 [facility] Comment on above: Performed By: #### C BCAD, CMP #### [facility] [address], [place] [id number] Calcium [Mass/Vol] 9.3 mg/dL Normal 8.6-10.2 [facility] Comment on above: Performed By: #### C BCAD, CMP #### [facility] [address], [place] [id number] Chloride [Moles/Vol] 93 mmol/L Low 98-107 [facility] Comment on above: Performed By: #### C BCAD, CMP #### [facility] [address], [place] [id number] CO2 [Moles/Vol] 21 mmol/L Normal 20-31 [facility] Comment on above: Performed By: #### C BCAD, CMP #### [facility] [address], [place] [id number] Creatinine [Mass/Vol] 1.7 mg/dL High 0.7-1.4 [facility] Comment on above: Performed By: #### C BCAD, CMP #### [facility] [address], [place] [id number] eGFRAA 49 mL/min/1.73m2 Low >60 [facility] Comment on above: Performed By: #### C BCAD, CMP #### [facility] [address], [place] [id number] eGFRNAA 40 mL/min/1.73m2 Low >60 [facility] Comment on above: Performed By: #### C BCAD, CMP #### [facility] [address], [place] [id number] Globulin (S) [Mass/Vol] 3.2 g/dL Normal 1.9-3.7 [facility] [employer] Comment on above: Performed By: #### C BCAD, CMP #### [facility] [address], [place] [id number] Glucose [Mass/Vol] 260 mg/dL High 65-99 [facility] [employer] Comment on above: Result Comment: For FASTING Glucose --- ADA reference ranges: Normal 65-99 mg/dl Prediabetes 100-125 Diabetes >/= 126 Performed By: #### C BCAD, CMP #### [facility] [address], [place] [id number] Potassium [Moles/Vol] 5.4 mmol/L Normal 3.5-5.5 [facility] Comment on above: Performed By: #### C BCAD, CMP #### [facility] [address], [place] [id number] Protein [Mass/Vol] 7.9 g/dL Normal 6.1-8.1 [facility] [employer] Comment on above: Performed By: #### C BCAD, CMP #### [facility] [address], [place] [id number] Sodium [Moles/Vol] 136 mmol/L Normal 135-146 [facility] [employer] Comment on above: Performed By: #### C BCAD, CMP #### [facility] [address], [place] [id number] Urea nitrogen [Mass/Vol] 49 mg/dL High 7-25 [facility] [employer] Comment on above: Performed By: #### C BCAD, CMP #### [facility] [address], [place] [id number] Tobacco Screening.on 022 Fall risk assessment b) One or more fall s in the last year [facility] Miley oliveros 600 DO Work Phone: Tobacco use status CP b) [facility] Miley oliveros 600 DO Work Phone: Laboratory - Microbiology an d Antimicrobial susceptibilityon 05-10-2021 SARS-CoV-2 (COVID-19) RNA JOLANTA+probe Ql (Unsp spec) [facility] Marcus PattenA [place] Work Phone: Tobacco Screening.on 021 Fall risk assessment a) No falls within the last year [facility] Marcus PattenA [place] Work Phone: Tobacco use status [facility] b) No [facility] [place]attenA [place] Work Phone: No Panel Informationon 04-27 Normal [facility] Marcus PattenA [place] Work Phone: Falls Risk Screeningon 03-15 Fall risk assessment b) One or more fall s in the last year [facility] Marcus Patten DO Work Phone: Heart Rate Bounding [facility] Marcus Patten DO Work Phone: IO EKG Electrocardiogram- 12 Leadon 03-15-2021 IO EKG Electrocardiogram- 12 Lead See Scanned Document [facility] Marcus Patten DO Work Phone: Vital Signs Date Time Vital Sign Value Performing Clinician Facility 10-31-2023 13:56-0400 Body temperature 98.6 [degF] Armani Yarbrough [facility] 10-31-2023 13:56-0400 Diastolic blood pressure 66 mm[Hg] Armani Yarbrough [facility] 10-31-2023 13:56-0400 Heart rate 59 /min Armani Yarbrough [facility] 10-31-2023 13:56-0400 Mean blood pressure 81 mm[Hg] Armani Yarbrough [facility] 10-31-2023 13:56-0400 Respiratory rate 16 /min Armani Yarbrough [facility] 10-31-2023 13:56-0400 SaO2% (BldA) [Mass fraction] 95 % Armani Yarbrough [facility] 10-31-2023 13:56-0400 Systolic blood pressure 112 mm[Hg] Armani Yarbrough [facility] 10-30-2023 11:18-0400 Body height 177.8 cm Ye Lobo MD Work Phone: [facility] 10-30-2023 11:18-0400 Body mass index (BMI) [Ratio] 32.57 kg/m2 Ye Lobo MD Work Phone: [facility] 10-30-2023 11:18-0400 Body weight 102.97 kg Ye Lobo MD Work Phone: [facility] 10-30-2023 11:18-0400 Diastolic blood pressure 63 mm[Hg] Ye Lobo MD Work Phone: [facility] 10-30-2023 11:18-0400 Heart rate 68 /min Ye Lobo MD Work Phone: [facility] 10-30-2023 11:18-0400 Respiratory rate 16 /min Ye Lobo MD Work Phone: [facility] 10-30-2023 11:18-0400 SaO2% (BldA) [Mass fraction] 94 % Ye Lobo MD Work Phone: [facility] 10-30-2023 11:18-0400 Systolic blood pressure 130 mm[Hg] Ye Lobo MD Work Phone: [facility] 10-17-2023 10:38-0400 Body height 177.8 cm Felipa Milligan MD Work Phone: [facility] 10-17-2023 10:38-0400 Body mass index (BMI) [Ratio] 32.28 kg/m2 Felipa Milligan MD Work Phone: [facility] 10-17-2023 10:38-0400 Body weight 102.06 kg Felipa Milligan MD Work Phone: [facility] 10-17-2023 10:38-0400 Diastolic blood pressure 66 mm[Hg] Felipa Milligan MD Work Phone: [facility] 10-17-2023 10:38-0400 Heart rate 60 /min Felipa Milligan MD Work Phone: [facility] 10-17-2023 10:38-0400 Systolic blood pressure 126 mm[Hg] Felipa Milligan MD Work Phone: [facility] 09-06-2023 09:01-0400 Diastolic blood pressure 57 mm[Hg] MD Mona Baker Work Phone: [facility] 09-06-2023 09:01-0400 Heart rate 60 /min MD Mona Baker Work Phone: [facility] 09-06-2023 09:01-0400 Respiratory rate 16 /min MD Mona Baker Work Phone: [facility] 09-06-2023 09:01-0400 SaO2% (BldA) [Mass fraction] 96 % MD Mona Baker Work Phone: [facility] 09-06-2023 09:01-0400 Systolic blood pressure 124 mm[Hg] MD Mona Baker Work Phone: [facility] 09-06-2023 07:29-0400 Body height 177.8 cm MD Mona Baker Work Phone: [facility] 09-06-2023 07:29-0400 Body weight 99.79 kg MD Mona Baker Work Phone: [facility] 08-29-2023 15:00-0400 Hourly Rounding Rosifozia Valencia [facility] 08-29-2023 15:00-0400 Promise to Return [facility] 08-29-2023 14:00-0400 Diastolic blood pressure 61 mm[Hg] [facility] 08-29-2023 14:00-0400 Heart rate 61 /min [facility] 08-29-2023 14:00-0400 Hourly Rounding [facility] 08-29-2023 14:00-0400 Promise to Return [facility] 08-29-2023 14:00-0400 Systolic blood pressure 124 mm[Hg] [facility] 08-29-2023 13:00-0400 Hourly Rounding [facility] 08-29-2023 13:00-0400 Promise to Return [facility] 08-29-2023 11:59-0400 gluc 205 mg/dL [facility] 08-29-2023 11:33-0400 Heart rate 60 /min [facility] 08-29-2023 11:33-0400 SaO2% (BldA) [Mass fraction] 98 % [facility] 08-29-2023 11:32-0400 Respiratory rate 17 /min [facility] 08-29-2023 11:25-0400 Diastolic blood pressure 67 mm[Hg] [facility] 08-29-2023 11:25-0400 Mean blood pressure 90 mm[Hg] [facility] 08-29-2023 11:25-0400 Systolic blood pressure 136 mm[Hg] [facility] 08-29-2023 11:25-0400 Body temperature 98.42 [degF] [facility] 08-29-2023 08:27-0400 gluc 109 mg/dL [facility] 08-29-2023 08:14-0400 Heart rate 60 /min [facility] 08-29-2023 08:14-0400 SaO2% (BldA) [Mass fraction] 96 % [facility] 08-29-2023 08:14-0400 Respiratory rate 20 /min [facility] 08-29-2023 08:08-0400 Diastolic blood pressure 82 mm[Hg] [facility] 08-29-2023 08:08-0400 Mean blood pressure 96 mm[Hg] [facility] 08-29-2023 08:08-0400 Systolic blood pressure 125 mm[Hg] [facility] 08-29-2023 08:08-0400 Body temperature 98.42 [degF] [facility] 08-29-2023 08:08-0400 Mean blood pressure 96 mm[Hg] [facility] 08-29-2023 00:05-0400 Blood Pressure Location [facility] 08-29-2023 00:05-0400 Body temperature 98.42 [degF] [facility] 08-29-2023 00:05-0400 Respiratory rate 16 /min [facility] 08-29-2023 00:05-0400 SaO2% (BldA) [Mass fraction] 94 % [facility] 08-28-2023 20:19-0400 Body temperature 98.06 [degF] [facility] 08-28-2023 20:19-0400 Mean blood pressure 76 mm[Hg] [facility] 08-28-2023 15:00-0400 gluc 185 mg/dL [facility] 08-28-2023 15:00-0400 Respiratory rate 18 /min [facility] 08-28-2023 04:00-0400 Body temperature 98.24 [degF] [facility] 08-28-2023 04:00-0400 Heart rate 60 /min [facility] 08-28-2023 04:00-0400 Mean blood pressure 87 mm[Hg] [facility] 08-28-2023 01:49-0400 Blood Pressure Location [facility] 08-28-2023 01:49-0400 Body temperature 97.52 [degF] [facility] 08-28-2023 01:49-0400 Heart rate 60 /min [facility] 08-28-2023 01:25-0400 Mean blood pressure 88 mm[Hg] [facility] 08-28-2023 01:25-0400 Respiratory rate 10 /min [facility] 08-28-2023 00:45-0400 Respiratory rate 12 /min [facility] 08-27-2023 20:38-0400 Heart rate 60 /min [facility] 07-16-2023 13:15-0500 Body height 177.8 cm Janusz Ruiz Other [employer] Other 07-16-2023 13:15-0500 Body mass index (BMI) [Ratio] 32.71 kg/m2 Janusz Ruiz Other [employer] Other 07-16-2023 13:15-0500 Body temperature 97.4 [degF] Janusz Ruiz Other [employer] Other 07-16-2023 13:15-0500 Body weight 103.42 kg Janusz Ruiz Other [employer] Other 07-16-2023 13:15-0500 Diastolic blood pressure 55 mm[Hg] Janusz Ruiz Other [facility] [employer] Other 07-16-2023 13:15-0500 Systolic blood pressure 146 mm[Hg] Janusz Ruiz Other [employer] [facility] [employer] Other 06-17-2023 16:29-0500 Inhaled oxygen flow rate 2 L/min MD Dunn [facility] 06-17-2023 16:27-0500 SaO2% (BldA) [Mass fraction] 96 % Mona [facility] 06-17-2023 15:56-0500 Heart rate 60 /min [facility]-17-[facility]23 15:53-0500 Body height 172.72 cm [facility] 06-17-2023 15:53-0500 Body weight 104.77 kg [facility] 06-17-2023 15:52-0500 Body temperature 98.3 [degF] MD Mona Baker [facility] 06-17-2023 15:52-0500 Diastolic blood pressure 67 mm[Hg] [facility] 06-17-2023 15:52-0500 Respiratory rate 18 /min Mona [facility] 06-17-2023 15:52-0500 Systolic blood pressure 146 mm[Hg] [facility] 04-12-2023 09:00-0500 Blood Pressure Location Armani Yarbrough [facility] 04-12-2023 09:00-0500 Body temperature 97.88 [degF] Armani Yarbrough [facility] 04-12-2023 09:00-0500 Diastolic blood pressure 64 mm[Hg] Armani Yarbrough [facility] 04-12-2023 09:00-0500 Heart rate 60 /min Armani Yarbrough [facility] 04-12-2023 09:00-0500 Mean blood pressure 80 mm[Hg] Armani Yarbrough [facility] 04-12-2023 09:00-0500 Respiratory rate 18 /min Armani Yarbrough [facility] 04-12-2023 09:00-0500 SaO2% (BldA) [Mass fraction] 95 % Armani Yarbrough [facility] 04-12-2023 09:00-0500 Systolic blood pressure 113 mm[Hg] Armani Yarbrough [facility] 04-09-2023 09:23-0500 Blood Pressure Location Basem Diggs [facility] 04-09-2023 09:23-0500 Diastolic blood pressure 58 mm[Hg] Basem Diggs [facility] 04-09-2023 09:23-0500 Heart rate 60 /min Basem Diggs [facility] 04-09-2023 09:23-0500 SaO2% (BldA) [Mass fraction] 98 % [facility] 04-09-2023 09:23-0500 Systolic blood pressure 105 mm[Hg] Basem Diggs [facility] 04-04-2023 12:08-0400 Body height 177.8 cm Felipa Milligan MD Work Phone: [facility] 04-04-2023 12:08-0400 Body mass index (BMI) [Ratio] 31.71 kg/m2 Felipa Milligan MD Work Phone: [facility] 04-04-2023 12:08-0400 Body weight 100.25 kg Felipa Milligan MD Work Phone: [facility] 04-04-2023 12:08-0400 Diastolic blood pressure 62 mm[Hg] Felipa Milligan MD Work Phone: [facility] 04-04-2023 12:08-0400 Heart rate 60 /min Felipa Milligan MD Work Phone: [facility] 04-04-2023 12:08-0400 Systolic blood pressure 110 mm[Hg] Felipa Milligan MD Work Phone: [facility] 03-26-2023 13:31-0400 Body height 177.8 cm Jackie Mcginnis MD Work Phone: [facility] 03-26-2023 13:31-0400 Body mass index (BMI) [Ratio] 31.71 kg/m2 Jackie Mcginnis MD Work Phone: [facility] 03-26-2023 13:31-0400 Body weight 100.25 kg Jackie Mcginnis MD Work Phone: [facility] 03-26-2023 13:31-0400 Diastolic blood pressure 64 mm[Hg] Jackie Mcginnis MD Work Phone: [facility] 03-26-2023 13:31-0400 Heart rate 58 /min Jackie Mcginnis MD Work Phone: [facility] 03-26-2023 13:31-0400 Systolic blood pressure 139 mm[Hg] Jackie Mcginnis MD Work Phone: [facility] 02-20-2023 14:17-0400 Diastolic blood pressure 67 mm[Hg] Keisha Brambila DELIVERER MERCHANDISE - ONLINE EDITOR Work Phone: [facility] [employer] 02-20-2023 14:17-0400 Heart rate 60 /min Keisha Brambila DELIVERER MERCHANDISE - ONLINE EDITOR Work Phone: [facility] [employer] 02-20-2023 14:17-0400 Systolic blood pressure 146 mm[Hg] Keisha Brambila DELIVERER MERCHANDISE - ONLINE EDITOR Work Phone: [facility] [employer] 02-20-2023 14:16-0400 Body height 172.7 cm Keisha Brambila DELIVERER MERCHANDISE - ONLINE EDITOR Work Phone: [employer] 02-20-2023 14:16-0400 Body mass index (BMI) [Ratio] 34.85 kg/m2 Keisha Brambila DELIVERER MERCHANDISE - ONLINE EDITOR Work Phone: [facility] [employer] 02-20-2023 14:16-0400 Body weight 103.96 kg Keisha Brambila DELIVERER MERCHANDISE - ONLINE EDITOR Work Phone: [employer] 01-15-2023 13:00-0400 Body height 177.8 cm Janusz Ruiz Other [employer] Other 01-15-2023 13:00-0400 Body mass index (BMI) [Ratio] 33.14 kg/m2 Janusz Ruiz Other [employer] Other 01-15-2023 13:00-0400 Body temperature 97.7 [degF] Janusz Ruiz Other [employer] Other 01-15-2023 13:00-0400 Body weight 104.78 kg Janusz Ruiz Other [employer] Other 01-15-2023 13:00-0400 Diastolic blood pressure 56 mm[Hg] Janusz Ruiz Other [employer] Other 01-15-2023 13:00-0400 Systolic blood pressure 145 mm[Hg] Janusz Ruiz Other [employer] Other 11-20-2022 15:12-0400 Body height 177.8 cm Mona Baker Work Phone: [facility]Rlittllpw-Tzewns ke [address] Work Phone: 11-20-2022 15:12-0400 Body mass index (BMI) [Ratio] 32.86 kg/m2 Mona Madrigalgles Work Phone: XY-Szssgbngs-Opvhri ke B 101 Work Phone: 11-20-2022 15:12-0400 Body surface area Derived from formula 2.21 m2 Mona M Olivia Work Phone: YW-Wzfqcdqrp-Ffmnrc ke B 101 Work Phone: 11-20-2022 15:12-0400 Body weight 103.87 kg Mona M Olivia Work Phone: PR-Mdweaghdf-Vmyaua ke B 101 Work Phone: 11-20-2022 15:12-0400 Diastolic blood pressure 54 mm[Hg] Mona M Olivia Work Phone: EJ-Doqvbrdeo-Lxfxhl ke B 101 Work Phone: 11-20-2022 15:12-0400 Heart rate 59 /min Mona M Olivia Work Phone: OC-Ctzsherxo-Spyqwp ke B 101 Work Phone: 11-20-2022 15:12-0400 Systolic blood pressure 128 mm[Hg] Mona M Olivia Work Phone: TM-Yvyzuqaeu-Atlalz ke B [address] Work Phone: 09-22-2022 15:18-0400 Body height 177.8 cm Mona M Olivia Work Phone: [facility] DO Work Phone: 09-22-2022 15:18-0400 Body mass index (BMI) [Ratio] 32 kg/m2 Mona M Olivia Work Phone: [facility] DO Work Phone: 09-22-2022 15:18-0400 Body surface area Derived from formula 2.19 m2 Mona M Olivia Work Phone: [facility] [address] DO Work Phone: 09-22-2022 15:18-0400 Body weight 101.15 kg Mona M Olivia Work Phone: [facility] [address] DO Work Phone: 09-22-2022 15:18-0400 Diastolic blood pressure 66 mm[Hg] Mona M Olivia Work Phone: [facility] [address] DO Work Phone: 09-22-2022 15:18-0400 Heart rate 60 /min Mona M Olivia Work Phone: [facility] [address] DO Work Phone: 09-22-2022 15:18-0400 Systolic blood pressure 128 mm[Hg] Mona M Olivia Work Phone: [facility] [address] DO Work Phone: 09-22-2022 12:02-0400 Blood Pressure Location Andi WARE [facility] 09-22-2022 12:02-0400 Diastolic blood pressure 63 mm[Hg] Andi WARE [facility] 09-22-2022 12:02-0400 Heart rate 69 /min Andi WARE [facility] 09-22-2022 12:02-0400 Respiratory rate 16 /min Andi WARE [facility] 09-22-2022 12:02-0400 Systolic blood pressure 112 mm[Hg] Andi WARE [facility] 08-16-2022 13:35-0400 Blood Pressure Location Andi WARE [facility] 08-16-2022 13:35-0400 Diastolic blood pressure 54 mm[Hg] Andikari WARE [facility] 08-16-2022 13:35-0400 Heart rate 65 /min Andi WARE [facility] 08-16-2022 13:35-0400 Systolic blood pressure 124 mm[Hg] Andi WARE [facility] 08-09-2022 15:39-0500 Blood Pressure Location Andikari WARE [facility] 08-09-2022 15:39-0500 Diastolic blood pressure 67 mm[Hg] Andi WARE [facility] 08-09-2022 15:39-0500 Heart rate 63 /min Andikari WARE [facility] 08-09-2022 15:39-0500 Systolic blood pressure 141 mm[Hg] Andikari WARE [facility] 07-31-2022 11:34-0500 Body height 177.8 cm Mona [employer] Work Phone: SQ-Zsimamlcj-Tlosqb ke B 101 DO Work Phone: 07-31-2022 11:34-0500 Body mass index (BMI) [Ratio] 32.57 kg/m2 Mona [employer] Olivia Work Phone: YL-Ghoezkkhc-Jaaxmq ke B 101 DO Work Phone: 07-31-2022 11:34-0500 Body surface area Derived from formula 2.2 m2 Mona [employer] Olivia Work Phone: SC-Gxjtdfujv-Vbmnnv ke B 101 DO Work Phone: 07-31-2022 11:34-0500 Body weight 102.97 kg Mona Baker Work Phone: [facility] B 101 DO Work Phone: 07-31-2022 11:34-0500 Diastolic blood pressure 62 mm[Hg] Mona Baker Work Phone: [facility] ke B 101 DO Work Phone: 07-31-2022 11:34-0500 Heart rate 58 /min Mona Baker Work Phone: [facility] ke B 101 DO Work Phone: 07-31-2022 11:34-0500 Systolic blood pressure 137 mm[Hg] Mona Baker Work Phone: [facility] B 239 DO Work Phone: 07-25-2022 13:25-0500 Diastolic blood pressure 58 mm[Hg] MD Mona Baker [facility] 07-25-2022 13:25-0500 Heart rate 60 /min MD Mona Baker [facility] 07-25-2022 13:25-0500 Respiratory rate 16 /min MD Mona Baker [facility] 07-25-2022 13:25-0500 SaO2% (BldA) [Mass fraction] 92 % [facility] 07-25-2022 13:25-0500 Systolic blood pressure 117 mm[Hg] MD Mona Baker [facility] 07-25-2022 12:13-0500 Body temperature 98.1 [degF] [facility]-25-[facility]22 12:13-0500 Inhaled oxygen flow rate 8 L/min [facility] 07-25-2022 10:54-0500 Body height 177.8 cm MD [facility] 07-25-2022 10:54-0500 Body mass index (BMI) [Ratio] 32.5 kg/m2 MD Mona Baker [facility] 07-25-2022 10:54-0500 Body weight 102.96 kg MD Mona Baker [facility] 07-17-2022 13:15-0500 Body height 177.8 cm Janusz Ruiz Other [employer] Other 07-17-2022 13:15-0500 Body mass index (BMI) [Ratio] 32.71 kg/m2 Janusz Ruiz Other [employer] [facility] [employer] Other 07-17-2022 13:15-0500 Body temperature 97.4 [degF] Janusz Ruiz Other [employer] Other 07-17-2022 13:15-0500 Body weight 103.42 kg Janusz Ruiz Other [employer] Other 07-17-2022 13:15-0500 Diastolic blood pressure 55 mm[Hg] Janusz Ruiz Other [employer] Other 07-17-2022 13:15-0500 Systolic blood pressure 129 mm[Hg] Janusz Ruiz Other [employer] Other 05-23-2022 12:03-0500 Diastolic blood pressure 65 mm[Hg] MD Mona Baker [facility] 05-23-2022 12:03-0500 Heart rate 60 /min MD Mona Baker [facility] 05-23-2022 12:03-0500 Respiratory rate 14 /min MD Mona Baker [facility] 05-23-2022 12:03-0500 SaO2% (BldA) [Mass fraction] 93 % [facility] 05-23-2022 12:03-0500 Systolic blood pressure 127 mm[Hg] MD Mona Baker [facility] 05-23-2022 10:41-0500 Inhaled oxygen flow rate 6 L/min MD Mona Baker [facility] 05-23-2022 10:36-0500 Body temperature 97 [degF] MD Mona Baker [facility] 05-23-2022 09:07-0500 Body mass index (BMI) [Ratio] 33 kg/m2 MD Mona Baker [facility] 05-23-2022 08:47-0500 Body height 177.8 cm MD Mona Baker [facility] 05-23-2022 08:47-0500 Body weight 104.32 kg MD Mona Baker [facility] 05-14-2022 16:15-0500 Heart rate 63 /min MD Mona Baker [facility] 05-14-2022 16:15-0500 Respiratory rate 20 /min Monaandi Baker [facility] 05-14-2022 16:00-0500 Body temperature 97.8 [degF] MD Mona Baker [facility] 05-14-2022 16:00-0500 Diastolic blood pressure 71 mm[Hg] MD Mona Baker [facility] 05-14-2022 16:00-0500 SaO2% (BldA) [Mass fraction] 95 % MD [facility] 05-14-2022 16:00-0500 Systolic blood pressure 136 mm[Hg] MD Mona Baker [facility] 05-14-2022 08:00-0500 Inhaled oxygen flow rate 3 L/min MD Mona Baker [facility] 05-14-2022 06:00-0500 Body weight 116 kg MD Mona Baker [facility] 05-12-2022 15:19-0500 Body height 177.8 cm MD Mona Baker [facility] 05-12-2022 15:04-0500 Body temperature 97.5 [degF] MD Mona Baker [facility] 05-12-2022 14:30-0500 Diastolic blood pressure 63 mm[Hg] MD Mona [facility] 05-12-2022 14:30-0500 Heart rate 60 /min [facility] 05-12-2022 14:30-0500 Respiratory rate 20 /min MD Mona Madrigalgles [facility] 05-12-2022 14:30-0500 SaO2% (BldA) [Mass fraction] 95 % Mona [facility] 05-12-2022 14:30-0500 Systolic blood pressure 130 mm[Hg] [facility] 05-12-2022 10:46-0500 Body height 175.26 cm Mona [facility] 05-12-2022 10:46-0500 Body weight 104.32 kg Mona [facility] 03-31-2022 09:42-0400 Blood Pressure Location Basem Diggs [facility] 03-31-2022 09:42-0400 Diastolic blood pressure 64 mm[Hg] Basem Diggs [facility] 03-31-2022 09:42-0400 Heart rate 60 /min Basem Diggs [facility] 03-31-2022 09:42-0400 SaO2% (BldA) [Mass fraction] 97 % Basem Diggs [facility] 03-31-2022 09:42-0400 Systolic blood pressure 142 mm[Hg] Basem Diggs [facility] 03-23-2022 09:12-0400 Blood Pressure Location Deshawn Gaffney [facility] 03-23-2022 09:12-0400 Diastolic blood pressure 82 mm[Hg] Deshawn Gaffney [facility] 03-23-2022 09:12-0400 Heart rate 60 /min Deshawn Gaffney [facility] 03-23-2022 09:12-0400 Systolic blood pressure 149 mm[Hg] Deshawn Gaffney [facility] 03-15-2022 10:28-0400 Body height 177.8 cm Mona M [facility] Work Phone: 03-15-2022 10:28-0400 Body mass index (BMI) [Ratio] 33 kg/m2 Mona M Olivia [facility] Work Phone: 03-15-2022 10:28-0400 Body surface area Derived from formula 2.22 m2 Mona M Olivia Work [facility]: [facility] Work Phone: 03-15-2022 10:28-0400 Body weight 104.33 kg Mona M Olivia [facility] Work Phone: 03-15-2022 10:28-0400 Diastolic blood pressure 60 mm[Hg] Mona M Olivia [facility] Work Phone: 03-15-2022 10:28-0400 Heart rate 60 /min [facility]a M [facility] Work Phone: 03-15-2022 10:28-0400 Systolic blood pressure 130 mm[Hg] [facility]a M [facility] Work Phone: 03-09-2022 14:31-0400 Blood Pressure Location Deshawn Gaffney [facility] 03-09-2022 14:31-0400 Diastolic blood pressure 69 mm[Hg] Deshawn Gaffney [facility] 03-09-2022 14:31-0400 Heart rate 60 /min Deshawn Gaffney [facility] 03-09-2022 14:31-0400 Systolic blood pressure 125 mm[Hg] Deshawn Gaffney [facility] 02-11-2022 15:00-0400 Hourly Rounding Ronobir GUZMAN [facility] 02-11-2022 15:00-0400 Promise to Return Ronobir GUZMAN [facility] 02-11-2022 14:00-0400 Body temperature 98.06 [degF] Ronobir GUZMAN [facility] 02-11-2022 14:00-0400 Hourly Rounding Ronobir GUZMAN [facility] 02-11-2022 14:00-0400 Promise to Return Ronobir GUZMAN [facility] 02-11-2022 13:00-0400 Hourly Rounding Ronobir GUZMAN [facility] 02-11-2022 13:00-0400 Promise to Return Ronobir GUZMAN [facility] 02-11-2022 11:27-0400 Blood Pressure Location Ronobir GUZMAN [facility] 02-11-2022 11:27-0400 Body temperature 97.88 [degF] Ronobir GUZMAN [facility] 02-11-2022 11:27-0400 BP/Pulse Patient Position Ronobir GUZMAN [facility] 02-11-2022 11:27-0400 Diastolic blood pressure 71 mm[Hg] Ronobir GUZMAN [facility] 02-11-2022 11:27-0400 Heart rate 60 /min Ronobir GUZMAN [facility] 02-11-2022 11:27-0400 Mean blood pressure 87 mm[Hg] Ronobir GUZMAN [facility] 02-11-2022 11:27-0400 Respiratory rate 18 /min Ronobir GUZMAN [facility] 02-11-2022 11:27-0400 SaO2% (BldA) [Mass fraction] 98 % Ronobir GUZMAN [facility] 02-11-2022 11:27-0400 Systolic blood pressure 119 mm[Hg] Ronobir GUZMAN [facility] 02-11-2022 10:30-0400 Diastolic blood pressure 71 mm[Hg] Ronobir GUZMAN [facility] 02-11-2022 10:30-0400 Heart rate 60 /min Ronobir GUZMAN [facility] 02-11-2022 10:30-0400 Mean blood pressure 87 mm[Hg] Ronobir GUZMAN [facility] 02-11-2022 10:30-0400 Respiratory rate 18 /min Ronobir UGZMAN [facility] 02-11-2022 10:30-0400 Systolic blood pressure 119 mm[Hg] Ronobir GUZMAN [facility] 02-11-2022 08:57-0400 Diastolic blood pressure 67 mm[Hg] Ronobir GUZMAN [facility] 02-11-2022 08:57-0400 Systolic blood pressure 127 mm[Hg] Ronobir GUZMAN [facility] 02-11-2022 07:50-0400 SaO2% (BldA) [Mass fraction] 95 % Ronobir GUZMAN [facility] 02-11-2022 07:40-0400 Body temperature 98.24 [degF] Ronobir GUZMAN [facility] 02-11-2022 07:40-0400 Heart rate 60 /min Ronobir GUZMAN [facility] 02-11-2022 07:40-0400 Mean blood pressure 87 mm[Hg] Ronobir GUZMAN [facility] 02-11-2022 07:40-0400 Respiratory rate 18 /min Ronobir GUZMAN [facility] 02-11-2022 07:40-0400 SaO2% (BldA) [Mass fraction] 96 % Ronobir GUZMAN [facility] 02-11-2022 07:00-0400 gluc 75 mg/dL Ronobir GUZMAN [facility] 02-11-2022 02:14-0400 Heart rate 61 /min Ronobir GUZMAN [facility] 02-11-2022 02:14-0400 Mean blood pressure 78 mm[Hg] Ronobir GUZMAN [facility] 02-10-2022 21:38-0400 gluc 97 mg/dL Ronobir GUZMAN [facility] 02-10-2022 21:38-0400 Heart rate 60 /min Ronobir GUZMAN [facility] 02-10-2022 19:41-0400 Mean blood pressure 74 mm[Hg] Ronobir GUZMAN [facility] 02-09-2022 04:00-0400 Respiratory rate 16 /min Ronobir GUZMAN [facility] 02-09-2022 00:30-0400 Respiratory rate 11 /min Ronobir GUZMAN [facility] 02-08-2022 23:16-0400 Respiratory rate 13 /min Ronobir GUZMAN [facility] 02-02-2022 16:00-0400 Diastolic blood pressure 77 mm[Hg] Lorenzo Zina [facility] 02-02-2022 16:00-0400 Mean blood pressure 95 mm[Hg] Lorenzo Zina [facility] 02-02-2022 16:00-0400 SaO2% (BldA) [Mass fraction] 99 % Lorenzo Zina [facility] 02-02-2022 16:00-0400 Systolic blood pressure 131 mm[Hg] Lorenzo Zina [facility] 02-02-2022 15:00-0400 Diastolic blood pressure 65 mm[Hg] Lorenzo Zina [facility] 02-02-2022 15:00-0400 Mean blood pressure 85 mm[Hg] Lorenzo Zina [facility] 02-02-2022 15:00-0400 Respiratory rate 14 /min Lorenzo Zina [facility] 02-02-2022 15:00-0400 Systolic blood pressure 124 mm[Hg] Lorenzo Zina [facility] 02-02-2022 14:00-0400 Diastolic blood pressure 91 mm[Hg] Lorenzo Zina [facility] 02-02-2022 14:00-0400 Mean blood pressure 99 mm[Hg] Lorenzo Izaguirre [facility] 02-02-2022 14:00-0400 Respiratory rate 13 /min Lorenzo Izaguirre [facility] 02-02-2022 14:00-0400 SaO2% (BldA) [Mass fraction] 98 % Lorenzo Izaguirre [facility] 02-02-2022 14:00-0400 Systolic blood pressure 116 mm[Hg] Lorenzo Izaguirre [facility] 02-02-2022 12:24-0400 Body temperature 98.06 [degF] Lorenzo Izaguirre [facility] 02-02-2022 12:24-0400 Heart rate 60 /min Lorenzo Izaguirre [facility] 02-02-2022 12:24-0400 Respiratory rate 16 /min Lorenzo Izaguirre [facility] 01-16-2022 15:00-0400 Body height 177.8 cm Janusz Ruiz Other [employer] Other 01-16-2022 15:00-0400 Body mass index (BMI) [Ratio] 32.48 kg/m2 Janusz Ruiz Other [employer] Other 01-16-2022 15:00-0400 Body temperature 97.2 [degF] Janusz Ruiz Other [employer] Other 01-16-2022 15:00-0400 Body weight 102.7 kg Janusz Ruiz Other [employer] Other 01-16-2022 15:00-0400 Diastolic blood pressure 54 mm[Hg] Janusz Ruiz Other [employer] Other 01-16-2022 15:00-0400 Respiratory rate 18 /min Janusz Ruiz Other [employer] Other 01-16-2022 15:00-0400 SaO2% (BldA) [Mass fraction] 96 % Janusz Ruiz Other [employer] Other 01-16-2022 15:00-0400 Systolic blood pressure 123 mm[Hg] Janusz Ruiz Other [employer] Other 2021 20:00-0400 Body temperature 98.24 [degF] Lorenzo Rosee [facility] 2021 20:00-0400 Diastolic blood pressure 67 mm[Hg] Lorenzo Zina [facility] 2021 20:00-0400 Mean blood pressure 91 mm[Hg] Lorenzo Zina [facility] 2021 20:00-0400 Respiratory rate 15 /min Lorenzo Zina [facility] 2021 20:00-0400 Systolic blood pressure 140 mm[Hg] Lorenzo Zina [facility] 2021 19:00-0400 Body temperature 98.6 [degF] Lorenzo Zina [facility] 2021 19:00-0400 Diastolic blood pressure 57 mm[Hg] Lorenzo Zina [facility] 2021 19:00-0400 Heart rate 56 /min Lorenzo Zina [facility] 2021 19:00-0400 Mean blood pressure 84 mm[Hg] Lorenzo Rosee [facility] 2021 19:00-0400 Respiratory rate 16 /min Lorenzo Rosee [facility] 2021 19:00-0400 Systolic blood pressure 139 mm[Hg] Lorenzo Zina [facility] 2021 18:30-0400 Diastolic blood pressure 69 mm[Hg] Lorenzo Rosee [facility] 2021 18:30-0400 Heart rate 60 /min Lorenzo Rosee [facility] 2021 18:30-0400 Mean blood pressure 89 mm[Hg] Lorenzo Rosee [facility] 2021 18:30-0400 Respiratory rate 18 /min Lorenzo Rosee [facility] 2021 18:30-0400 SaO2% (BldA) [Mass fraction] 96 % Lorenzo Rosee [facility] 2021 18:30-0400 Systolic blood pressure 128 mm[Hg] Lorenzo Rosee [facility] 2021 17:30-0400 Respiratory rate 18 /min Lorenzo Rosee [facility] 2021 15:30-0400 Heart rate 63 /min Lorenzo Rosee [facility] 2021 15:21-0400 Body temperature 99.14 [degF] Lorenzo Zina [facility] 12-15-2021 11:14-0400 Body height 172.72 cm Mona M Olivia Work Phone: [facility] [address] DO Work Phone: 12-15-2021 11:14-0400 Body mass index (BMI) [Ratio] Medical Reason Not Done Mona Ed Olivia Work Phone: [facility] [address] DO Work Phone: 12-15-2021 11:14-0400 Diastolic blood pressure 58 mm[Hg] Mona Ed Olivia Work Phone: [facility] [address] DO Work Phone: 12-15-2021 11:14-0400 Heart rate 60 /min Mona M Olivia Work Phone: [facility] DO Work Phone: 12-15-2021 11:14-0400 Systolic blood pressure 100 mm[Hg] Mona Ed Olivia Work Phone: [facility] [address] DO Work Phone: 12-15-2021 11:14-0400 11 1 Mona M Olivia Work Phone: [facility] DO Work Phone: Comment on above: [id number] TS 11-07-2021 00:00-0400 60 1 Mona M Olivia Work Phone: [facility] DO Work Phone: Comment on above: [employer] 10-19-2021 15:35-0400 Hourly Rounding Hasan AMIR [facility] 10-19-2021 15:35-0400 Promise to Return Hasan AMIR [facility] 10-19-2021 14:42-0400 Hourly Rounding Hasan AMIR [facility] 10-19-2021 14:42-0400 Promise to Return Hasan AMIR [facility] 10-19-2021 14:10-0400 gluc 269 mg/dL Hasan AMIR [facility] 10-19-2021 11:31-0400 Blood Pressure Location Hasan AMIR [facility] 10-19-2021 11:31-0400 Body temperature 98.06 [degF] Hasan AMIR [facility] 10-19-2021 11:31-0400 BP/Pulse Patient Position Hasan AMIR [facility] 10-19-2021 11:31-0400 Diastolic blood pressure 74 mm[Hg] Hasan AMIR [facility] 10-19-2021 11:31-0400 Heart rate 61 /min Hasan AMIR [facility] 10-19-2021 11:31-0400 Mean blood pressure 95 mm[Hg] Hasan AMIR [facility] 10-19-2021 11:31-0400 SaO2% (BldA) [Mass fraction] 97 % Hasan AMIR [facility] 10-19-2021 11:31-0400 Systolic blood pressure 136 mm[Hg] Hasan AMIR [facility] 10-19-2021 08:27-0400 Diastolic blood pressure 82 mm[Hg] Hasan AMIR [facility] 10-19-2021 08:27-0400 Systolic blood pressure 136 mm[Hg] Hasan AMIR [facility] 10-19-2021 08:12-0400 Blood Pressure Location Hasan AMIR [facility] 10-19-2021 08:12-0400 Body temperature 97.52 [degF] Hasan AMIR [facility] 10-19-2021 08:12-0400 BP/Pulse Patient Position Hasan AMIR [facility] 10-19-2021 08:12-0400 Diastolic blood pressure 67 mm[Hg] Hasan AMIR [facility] 10-19-2021 08:12-0400 Heart rate 60 /min Hasan AMIR [facility] 10-19-2021 08:12-0400 Mean blood pressure 87 mm[Hg] Hasan AMIR [facility] 10-19-2021 08:12-0400 Respiratory rate 16 /min Hasan AMIR [facility] 10-19-2021 08:12-0400 SaO2% (BldA) [Mass fraction] 97 % Hasan AMIR [facility] 10-19-2021 08:12-0400 Systolic blood pressure 129 mm[Hg] Hasan AMIR [facility] 10-19-2021 01:00-0400 Blood Pressure Location Hasan AMIR [facility] 10-19-2021 01:00-0400 Body temperature 98.24 [degF] Hasan AMIR [facility] 10-19-2021 01:00-0400 BP/Pulse Patient Position Hasan AMIR [facility] 10-19-2021 01:00-0400 Heart rate 60 /min Hasan AMIR [facility] 10-19-2021 01:00-0400 Mean blood pressure 88 mm[Hg] Hasan AMIR [facility] 10-19-2021 01:00-0400 Respiratory rate 18 /min Hasan AMIR [facility] 10-19-2021 01:00-0400 SaO2% (BldA) [Mass fraction] 96 % Hasan AMIR [facility] 10-18-2021 20:00-0400 gluc 224 mg/dL Hasan AMIR [facility] 10-18-2021 19:31-0400 Mean blood pressure 87 mm[Hg] Hasan AMIR [facility] 10-18-2021 19:00-0400 Heart rate 65 /min Hasan AMIR [facility] 10-18-2021 07:00-0400 gluc 255 mg/dL Hasan AMIR [facility] 10-18-2021 03:00-0400 Mean blood pressure 86 mm[Hg] Hasan AMIR [facility] 10-16-2021 19:00-0400 Mean blood pressure 94 mm[Hg] Hasan AMIR [facility] 10-14-2021 19:47-0400 Heart rate 60 /min Hasan AMIR [facility] 10-14-2021 16:28-0400 Heart rate 60 /min Hasan AMIR [facility] 10-13-2021 13:46-0400 Hourly Rounding Ronobir GUZMAN [facility] 10-13-2021 13:46-0400 Promise to Return Ronobir GUZMAN [facility] 10-13-2021 12:41-0400 Hourly Rounding Ronobir GUZMAN [facility] 10-13-2021 12:41-0400 Promise to Return Ronobir GUZMAN [facility] 10-13-2021 11:06-0400 Body temperature 98.42 [degF] Ronobir GUZMAN [facility] 10-13-2021 11:06-0400 Diastolic blood pressure 67 mm[Hg] Ronobir GUZMAN [facility] 10-13-2021 11:06-0400 Heart rate 59 /min Ronobir GUZMAN [facility] 10-13-2021 11:06-0400 Mean blood pressure 90 mm[Hg] Ronobir GUZMAN [facility] 10-13-2021 11:06-0400 SaO2% (BldA) [Mass fraction] 94 % Ronobir GUZMAN [facility] 10-13-2021 11:06-0400 Systolic blood pressure 138 mm[Hg] Ronobir GUZMAN [facility] 10-13-2021 08:25-0400 gluc 170 mg/dL Ronobir GUZMAN [facility] 10-13-2021 08:19-0400 Diastolic blood pressure 69 mm[Hg] Ronobir GUZMAN [facility] 10-13-2021 08:19-0400 Systolic blood pressure 129 mm[Hg] Ronobir GUZMAN [facility] 10-13-2021 08:11-0400 Heart rate 61 /min Ronobir GUZMAN [facility] 10-13-2021 08:11-0400 Respiratory rate 18 /min Ronobir GUZMAN [facility] 10-13-2021 08:06-0400 Heart rate 60 /min Ronobir GUZMAN [facility] 10-13-2021 08:06-0400 Respiratory rate 18 /min Ronobir GUZMAN [facility] 10-13-2021 07:21-0400 Blood Pressure Location Ronobir GUZMAN [facility] 10-13-2021 07:21-0400 Body temperature 98.06 [degF] Ronobir GUZMAN [facility] 10-13-2021 07:21-0400 BP/Pulse Patient Position Ronobir GUZMAN [facility] 10-13-2021 07:21-0400 Diastolic blood pressure 69 mm[Hg] Ronobir GUZMAN [facility] 10-13-2021 07:21-0400 Mean blood pressure 89 mm[Hg] Ronobir GUZMAN [facility] 10-13-2021 07:21-0400 Respiratory rate 18 /min Ronobir GUZMAN [facility] 10-13-2021 07:21-0400 SaO2% (BldA) [Mass fraction] 95 % Ronobir GUZMAN [facility] 10-13-2021 07:21-0400 Systolic blood pressure 129 mm[Hg] Ronobir GUZMAN [facility] 10-13-2021 04:00-0400 Body temperature 97.88 [degF] Ronobir GUZMAN [facility] 10-12-2021 20:29-0400 gluc 249 mg/dL Ronobir GUZMAN [facility] 10-12-2021 17:50-0400 Mean blood pressure 80 mm[Hg] Ronobir GUZMAN [facility] 10-12-2021 11:51-0400 Body temperature 97.16 [degF] Ronobir GUZMAN [facility] 10-12-2021 07:51-0400 Blood Pressure Location Ronobir GUZMAN [facility] 10-12-2021 07:51-0400 BP/Pulse Patient Position Ronobir GUZMAN [facility] 10-12-2021 07:51-0400 Mean blood pressure 98 mm[Hg] Ronobir GUZMAN [facility] 10-11-2021 16:06-0400 Blood Pressure Location Ronobir GUZMAN [facility] 10-11-2021 16:06-0400 BP/Pulse Patient Position Ronobir GUZMAN [facility] 10-11-2021 00:18-0400 Mean blood pressure 80 mm[Hg] Ronobir GUZMAN [facility] 10-10-2021 20:54-0400 gluc 194 mg/dL Ronobir GUZMAN [facility] 10-10-2021 19:00-0400 Mean blood pressure 74 mm[Hg] Ronobir GUZMAN [facility] 10-08-2021 08:27-0400 Heart rate 64 /min Ronobir GUZMAN [facility] 10-07-2021 04:15-0400 Heart rate 60 /min Ronobir GUZMAN [facility] 10-07-2021 00:36-0400 Heart rate 60 /min Ronobir GUZMAN [facility] 10-06-2021 18:03-0400 SaO2% (BldA) [Mass fraction] 93.3 % Ronobir GUZMAN [facility] Resp Auto SS 09-27-2021 13:05-0400 Body height 172.7 cm Upsylvain Lobo MD Work Phone: [facility] 09-27-2021 13:05-0400 Diastolic blood pressure 73 mm[Hg] Upsylvain Lobo MD Work Phone: [facility] 09-27-2021 13:05-0400 Heart rate 60 /min Upsylvain Lobo MD Work Phone: [facility] 09-27-2021 13:05-0400 Respiratory rate 16 /min Upsylvain Lobo MD Work Phone: [facility] 09-27-2021 13:05-0400 SaO2% (BldA) [Mass fraction] 94 % Upsylvain Lobo MD Work Phone: [facility] 09-27-2021 13:05-0400 Systolic blood pressure 144 mm[Hg] Ye Lobo MD Work Phone: [facility] 08-16-2021 12:32-0400 Diastolic blood pressure 60 mm[Hg] Mona M Olivia Work Phone: [facility] [employer] 600 DO Work Phone: 08-16-2021 12:32-0400 Systolic blood pressure 105 mm[Hg] Mona M Olivia Work Phone: [facility] [employer] 600 DO Work Phone: 08-16-2021 12:11-0400 Body height 175.26 cm Mona M Olivia Work Phone: [facility] [employer] 600 DO Work Phone: 08-16-2021 12:11-0400 Body mass index (BMI) [Ratio] 34.56 kg/m2 Mona M Olivia Work Phone: [facility] [address] DO Work Phone: 08-16-2021 12:11-0400 Body surface area Derived from formula 2.21 m2 Mona M Olivia Work Phone: [facility] [address] DO Work Phone: 08-16-2021 12:11-0400 Body weight 106.14 kg Mona M Olivia Work Phone: [facility] 600 DO Work Phone: 08-16-2021 12:11-0400 Diastolic blood pressure 74 mm[Hg] [facility] M [facility]: [facility] Work Phone: 08-16-2021 12:11-0400 Heart rate 60 /min [facility] M [facility] Work Phone: 08-16-2021 12:11-0400 Systolic blood pressure 140 mm[Hg] [facility] M [facility] Work Phone: 08-05-2021 13:23-0500 Body height 175.26 cm Mona M Olivia Work Phone: [facility] 600 DO Work Phone: 08-05-2021 13:23-0500 Body mass index (BMI) [Ratio] 33.37 kg/m2 Mona M Olivia [facility]: [facility] DO Work Phone: 08-05-2021 13:23-0500 Body surface area Derived from formula 2.18 m2 Mona M Olivia Work [facility]: [facility] DO Work Phone: 08-05-2021 13:23-0500 Body weight 102.51 kg Mona M Olivia [facility]: [facility] Work Phone: 08-05-2021 13:23-0500 Diastolic blood pressure 65 mm[Hg] Mona M Olivia [facility]: [facility] DO Work Phone: 08-05-2021 13:23-0500 Heart rate 60 /min Mona M Olivia Work [facility]: [facility] Work Phone: 08-05-2021 13:23-0500 Systolic blood pressure 134 mm[Hg] Mona M Olivia Work Phone: [facility] DO Work Phone: 07-19-2021 11:11-0500 40 1 [facility] M [facility] Work Phone: Comment on above: [id number] 06-29-2021 11:08-0500 Body height 175.26 cm Mona M Olivia Work [facility]: [facility] DO Work Phone: 06-29-2021 11:08-0500 Body mass index (BMI) [Ratio] 35.15 kg/m2 Mona M Olivia Work Phone: [facility] DO Work Phone: 06-29-2021 11:08-0500 Body surface area Derived from formula 2.22 m2 Mona M Olivia Work Phone: [facility] 600 DO Work Phone: 06-29-2021 11:08-0500 Body weight 107.96 kg Mona M Olivia Work Phone: [facility] 600 DO Work Phone: 06-29-2021 11:08-0500 Diastolic blood pressure 76 mm[Hg] Mona M Olivia Work Phone: [facility] 600 DO Work Phone: 06-29-2021 11:08-0500 Heart rate 93 /min Mona M Olivia Work Phone: [facility] 600 DO Work Phone: 06-29-2021 11:08-0500 Systolic blood pressure 118 mm[Hg] Mona Ed Olivia Work Phone: [facility] 600 DO Work Phone: 06-21-2021 12:27-0500 Body height 172.7 cm Ye Lobo MD Work Phone: [facility] 06-21-2021 12:27-0500 Body mass index (BMI) [Ratio] 35.61 kg/m2 Ye Lobo MD Work Phone: [facility] 06-21-2021 12:27-0500 Body weight 106.23 kg Ye Lobo MD Work Phone: [facility] 06-21-2021 12:27-0500 Diastolic blood pressure 67 mm[Hg] Ye Lobo MD Work Phone: [facility] 06-21-2021 12:27-0500 Heart rate 95 /min Ye Lobo MD Work Phone: [facility] 06-21-2021 12:27-0500 Respiratory rate 16 /min Ye Lobo MD Work Phone: [facility] 06-21-2021 12:27-0500 SaO2% (BldA) [Mass fraction] 91 % Ye Lobo MD Work Phone: [facility] 06-21-2021 12:27-0500 Systolic blood pressure 119 mm[Hg] Ye Lobo MD Work Phone: [facility] 05-10-2021 09:44-0500 66 1 Mona M Olivia Work Phone: [facility] [address] [place] Work Phone: Comment on above: FSL 05-05-2021 11:38-0500 Body height 172.72 cm Mona M Olivia Work Phone: [facility] [address] [place] Work Phone: 05-05-2021 11:38-0500 Body mass index (BMI) [Ratio] 35.94 kg/m2 Mona [employer] Olivia Work Phone: [facility] [address] [place] Work Phone: 05-05-2021 11:38-0500 Body surface area Derived from formula 2.19 m2 Mona M Olivia Work Phone: [facility] [address] [place] Work Phone: 05-05-2021 11:38-0500 Body weight 107.23 kg Mona M Olivia Work Phone: [facility] [address] [place] Work Phone: 05-05-2021 11:38-0500 Diastolic blood pressure 90 mm[Hg] Mona M Olivia Work Phone: [facility] [address] [place] Work Phone: 05-05-2021 11:38-0500 Heart rate 60 /min Mona M Olivia Work Phone: [facility] [address] [place] Work Phone: 05-05-2021 11:38-0500 Systolic blood pressure 150 mm[Hg] Mona M Olivia Work Phone: [facility] [address] [place] Work Phone: 04-27-2021 12:30-0500 31 1 Mona M Olivia Work Phone: [facility] [address] [place] Work Phone: Comment on above: [id number] 03-22-2021 08:24-0400 Body height 172.72 cm Mona M Olivia Work Phone: [facility] [address] DO Work Phone: 03-22-2021 08:24-0400 Body mass index (BMI) [Ratio] 36.8 kg/m2 Mona Ward Olivia Work Phone: [facility] [address] DO Work Phone: 03-22-2021 08:24-0400 Body surface area Derived from formula 2.22 m2 Mona M Olivia Work Phone: [facility] 250 DO Work Phone: 03-22-2021 08:24-0400 Body weight 109.77 kg Mona M Olivia Work Phone: [facility] 250 DO Work Phone: 03-22-2021 08:24-0400 Diastolic blood pressure 64 mm[Hg] Mona M Olivia Work Phone: [facility] 250 DO Work Phone: 03-22-2021 08:24-0400 Heart rate 80 /min Mona M Olivia Work Phone: [facility] 250 DO Work Phone: 03-22-2021 08:24-0400 Systolic blood pressure 126 mm[Hg] Mona Madrigalgles Work Phone: [facility] [address] DO Work Phone: 03-15-2021 13:59-0400 Diastolic blood pressure 70 mm[Hg] Mona Ward Olivia Work Phone: [facility] [place] 250 DO Work Phone: 03-15-2021 13:59-0400 Systolic blood pressure 100 mm[Hg] Mona Ed Olivia Work Phone: [facility] [place] 250 DO Work Phone: 03-15-2021 13:58-0400 Body height 172.72 cm Mona Madrigalgles Work Phone: [facility] [place] 250 DO Work Phone: 03-15-2021 13:58-0400 Body mass index (BMI) [Ratio] 35.73 kg/m2 Mona Madrigalgles Work Phone: [facility] [place] 250 DO Work Phone: 03-15-2021 13:58-0400 Body surface area Derived from formula 2.19 m2 Mona Ward Olivia Work Phone: [facility] [place] 250 DO Work Phone: 03-15-2021 13:58-0400 Body temperature 98.7 [degF] Mona Ed Olivia Work Phone: [facility] [address] DO Work Phone: 03-15-2021 13:58-0400 Body weight 106.6 kg Mona M Olivia Work Phone: [facility] [place] 250 DO Work Phone: 03-15-2021 13:58-0400 Diastolic blood pressure 78 mm[Hg] Mona M Olivia Work Phone: [facility] [address] DO Work Phone: 03-15-2021 13:58-0400 Heart rate 100 /min Mona M Olivia Work Phone: [facility] 250 DO Work Phone: 03-15-2021 13:58-0400 Systolic blood pressure 118 mm[Hg] Mona M Olivia Work Phone: [facility] 250 DO Work Phone: 03-15-2021 13:48-0400 Diastolic blood pressure 70 mm[Hg] Mona M Olivia Work Phone: [facility] 250 DO Work Phone: 03-15-2021 13:48-0400 Systolic blood pressure 100 mm[Hg] Mona M Olivia Work Phone: [facility] [address] DO Work Phone: 03-15-2021 13:39-0400 Body height 172.72 cm Mona M Olivia Work Phone: [facility] 250 DO Work Phone: 03-15-2021 13:39-0400 Body mass index (BMI) [Ratio] 35.73 kg/m2 Mona M Olivia Work Phone: [facility] 250 DO Work Phone: 03-15-2021 13:39-0400 Body surface area Derived from formula 2.19 m2 Mona M Olivia Work Phone: [facility] 250 DO Work Phone: 03-15-2021 13:39-0400 Body temperature 98.7 [degF] Mona Ward Olivia Work Phone: [facility] [address] DO Work Phone: 03-15-2021 13:39-0400 Body weight 106.6 kg Mona Ed Olivia Work Phone: [facility] 250 DO Work Phone: 03-15-2021 13:39-0400 Diastolic blood pressure 78 mm[Hg] Mona Ward Olivia Work Phone: [facility] 250 DO Work Phone: 03-15-2021 13:39-0400 Heart rate 100 /min Mona Ward Olivia Work Phone: [facility] 250 DO Work Phone: 03-15-2021 13:39-0400 Systolic blood pressure 118 mm[Hg] Mona Ward Olivia Work Phone: [facility] 250 DO Work Phone: 02-09-2021 14:57-0400 72 1 Felipa Milligan MD Work Phone: [facility] 250 DO Work Phone: Comment on above: [id number] Encounters Encounter Date Encounter Type Care Provider Facility Start: 10-31-2023 End: 11-01-2023 ambulatory Armani Yarbrough Facility:[facility] Start: 10-31-2023 End: 10-31-2023 Patient encounter procedure Armani Yarbrough [facility] Start: 10-30-2023 End: 10-30-2023 ambulatory YE LOBO [facility] Start: 10-30-2023 End: 10-30-2023 Office outpatient visit 25 minutes Ye Lobo MD Work Phone: [facility] Comment on above: Bipolar 1 disorder, manic, full remission (HCC) (Primary Dx); Generalized anxiety disorder; Long-term use of high-risk medication Start: 10-26-2023 End: 10-26-2023 ambulatory PRINCESS DOS SANTOS Not Available Start: 10-24-2023 End: 10-25-2023 ambulatory Felipa Milligan Facility:[facility] Start: 10-24-2023 End: 10-24-2023 Patient encounter procedure Felipa Milligan [facility] Start: 10-23-2023 End: 10-23-2023 ambulatory MONA BAKER Not Available Start: 10-17-2023 End: 10-17-2023 ambulatory [facility] Amb[facility] Start: 10-17-2023 End: 10-17-2023 Office outpatient visit 25 minutes Felipa Milligan MD Work Phone: [facility] Comment on above: 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 (Primary Dx); Ventricular tachycardia (paroxysmal) (Multi); Ischemic cardiomyopathy; AICD (automatic cardioverter/defibrillator) present; S/P PTCA (percutaneous transluminal coronary angioplasty); Hypertension, essential, benign; Paroxysmal atrial fibrillation (Multi); Mixed hyperlipidemia; High risk medication use; S/P CABG (coronary artery bypass graft); Type 2 diabetes mellitus without complication, unspecified whether moth exterminator insulin use (Multi); Class 1 obesity without serious comorbidity with body mass index (BMI) of 32.0 to 32.9 in adult, unspecified obesity type; Mild dementia without behavioral disturbance, psychotic disturbance, mood disturbance, or anxiety, unspecified dementia type (Multi) Start: 10-13-2023 End: 10-14-2023 ambulatory Armani Yarbrough Facility:[facility] Start: 10-13-2023 End: 10-13-2023 Patient encounter procedure Armani Yarbrough [facility] Start: 09-24-2023 End: 09-24-2023 ambulatory PRINCESS DOS SANTOS Not Available Start: 09-12-2023 End: 09-13-2023 ambulatory Mona Baker Facility:[facility] Start: 09-12-2023 End: 09-12-2023 Patient encounter procedure Mona Baker [facility] Start: 09-12-2023 End: 09-12-2023 ambulatory MONA BAKER Not Available Start: 09-06-2023 End: 09-06-2023 ambulatory Bill Mcgee Facility:[facility] Start: 09-06-2023 Non-patient / Non-visit MD Travon Baker Work Phone: [facility] Work Phone: Start: 09-06-2023 End: 09-06-2023 Admission to same day surgery center MD Mona Baker Work Phone: [facility] Work Phone: Start: 09-06-2023 End: 09-06-2023 ambulatory MD Mona Baker Work Phone: [facility] Work Phone: Start: 08-27-2023 End: 08-29-2023 Evaluation and management of inpatient Rosi Valencia [facility] Start: 08-27-2023 End: 08-27-2023 ambulatory MONA BAKER Not Available Start: 08-22-2023 End: 08-22-2023 ambulatory PRINCESS DOS SANTOS Not Available Start: 08-11-2023 End: 08-12-2023 ambulatory Janusz Ruiz Facility:[facility] Start: 08-11-2023 End: 08-11-2023 Lab Drop off Janusz Ruiz [facility] Start: 08-11-2023 Non-patient / Non-visit MD Travon Baker Work Phone: [facility] Work Phone: Start: 07-26-2023 End: 07-27-2023 ambulatory Janusz Ruiz Facility:[facility] Start: 07-26-2023 End: 07-26-2023 Lab Drop off Janusz Ruiz [facility] Start: 07-26-2023 Non-patient / Non-visit MD Travon Baker Work Phone: [facility] Work Phone: Start: 07-25-2023 End: 07-25-2023 ambulatory PRINCESS Woods LEVON Not Available Start: 07-20-2023 ambulatory Andi Cashi ty:BARRY Weaver Start: 07-18-2023 End: 07-19-2023 ambulatory Janusz Ruiz Facility:[facility] Start: 07-18-2023 End: 07-18-2023 Lab Drop off Janusz Woods Sara [facility] Start: 07-18-2023 Non-patient / Non-visit MD Travon Baker Work Phone: [facility] Work Phone: Start: 07-17-2023 End: 07-18-2023 ambulatory Andi WARE Facility:[facility] Start: 07-17-2023 End: 07-17-2023 Patient encounter procedure Andi WARE [facility] Start: 07-16-2023 End: 07-16-2023 ambulatory Janusz Ruiz Other [facility] [address] [employer] Other Start: 07-16-2023 Office outpatient vi sit 25 minutes Janusz Ruiz [facility] Start: 06-25-2023 End: 06-25-2023 ambulatory MONA BAKER Not Available Start: 06-20-2023 End: 06-22-2023 ambulatory [facility] Ambulatory Start: 06-17-2023 End: 06-17-2023 Emergency department patient visit Lorenzo Petty Facility:[facility] Start: 06-17-2023 End: 06-17-2023 Emergency department patient visit MD Mona Baker [facility] Work Phone: Start: 06-12-2023 End: 06-13-2023 ambulatory Felipa Milligan Facility:[facility] Start: 06-12-2023 End: 06-12-2023 Patient encounter procedure Felipa Sandovalim [facility] Start: 05-17-2023 End: 05-18-2023 ambulatory Eyad Mims Facility:[facility] Start: 05-17-2023 End: 08-17-2023 Pre-admission assessment Leo [facility] Start: 04-30-2023 End: 04-30-2023 ambulatory MONA BAKER Not Available Start: 04-12-2023 End: 04-13-2023 ambulatory Armani Yarbrough Facility:[facility] Start: 04-12-2023 End: 04-12-2023 Patient encounter procedure Armanijustice Cainflaquito [facility] Start: 04-09-2023 End: 04-10-2023 ambulatory XXXX NONE Facility:[facility] Start: 04-09-2023 End: 04-09-2023 Patient encounter procedure Nicolás Diggs [facility] Start: 04-04-2023 End: 04-04-2023 ambulatory LEO [facility] Ambulatory Start: 04-04-2023 End: 04-04-2023 Office outpatient visit 25 minutes Felipa Milligan MD Work Phone: [facility] Comment on above: 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; S/P PTCA (percutaneous transluminal coronary angioplasty); Ventricular tachycardia (paroxysmal) (CMS/HCC); AICD (automatic cardioverter/defibrillator) present; Hypertension, essential, benign; Ischemic cardiomyopathy; Paroxysmal atrial fibrillation (CMS/HCC); Mixed hyperlipidemia; Stage 3b chronic kidney disease (CMS/HCC); S/P CABG (coronary artery bypass graft); Transient neurological symptoms; Obstructive sleep apnea, adult Start: 03-28-2023 End: 03-28-2023 ambulatory Janusz Ruiz Other [employer] Other Start: 03-28-2023 Telephone encounter Janusz Ruiz [facility] Start: 03-26-2023 End: 03-26-2023 ambulatory [facility] Amb[facility] Start: 03-26-2023 End: 03-26-2023 Office outpatient visit 25 minutes Jackie Mcginnis MD Work Phone: [facility] Comment on above: Parkinsonism, unspec ified Parkinsonism type (Primary Dx); Cognitive impairment Start: 03-20-2023 End: 03-20-2023 ambulatory [facility] [facility] Start: 03-20-2023 End: 03-20-2023 Office outpatient visit 25 minutes Keisha Brambila [employer] - ONLINE [employer]OR Work Phone: [facility] Comment on above: Mild dementia withou t behavioral disturbance, psychotic disturbance, mood disturbance, or anxiety, unspecified dementia type (HCC) (Primary Dx); B12 deficiency; Acquired hypothyroidism Start: 03-09-2023 End: 03-13-2023 Evaluation and management of inpatient Eyad Mims Facility:[facility] Start: 03-09-2023 End: 03-10-2023 ambulatory KEISHA BRAMBILA Facility:[facility] Start: 03-02-2023 End: 03-03-2023 ambulatory KEISHA BRAMBILA Facility:[facility] Start: 03-02-2023 End: 03-02-2023 Patient encounter procedure KEISHA BRAMBILA [facility] Start: 02-20-2023 End: 02-20-2023 ambulatory [facility] Start: 02-20-2023 End: 02-20-2023 Office outpatient new 45 minutes Keisha Brambila DELIVER[employer] - ONLINE EDITOR Work Phone: [facility] Comment on above: Memory loss (Primary Dx); Parkinsonism, unspecified Parkinsonism type; Bipolar disorder, in partial remission, most recent episode mixed (CMS/HCC) (HCC); Polypharmacy Start: 02-15-2023 Telephone encounter Fariba Talya Garner DO Work Phone: [facility] Comment on above: Appointment Start: 02-15-2023 End: 02-16-[address] Mona Baker Facility: Start: 02-15-2023 End: 02-15-2023 Patient encounter procedure Eyad Mims [facility] Start: 01-16-2023 End: 01-17-2023 ambulatory Andi WARE Facility:[facility] Start: 01-16-2023 End: 01-16-2023 Patient encounter procedure Andi WARE [facility] Start: 01-15-2023 End: 01-15-2023 ambulatory Janusz Ruiz Other [employer] Other Start: 01-15-2023 Office outpatient vi sit 25 minutes Janusz Ruiz [facility] Infectious Disease Start: 01-08-2023 Rx Renewal Mona Camarillo s Work Phone: [facility] 250 DO Work Phone: Start: 12-13-2022 Telephone encounter Mona saucedo Work Phone: [facility] 600 DO Work Phone: Start: 12-13-2022 End: 12-14-2022 ambulatory Andi WARE Facility:[facility] Start: 12-13-2022 End: 12-13-2022 Patient encounter procedure Andi WARE [facility] Start: 11-24-2022 End: 11-25-2022 ambulatory Andi WARE Facility:[facility] Start: 11-24-2022 End: 11-24-2022 Patient encounter procedure Andi Harshal WARE [facility] Start: 11-20-2022 Patient encounter procedure Mona Baker Work Phone: QN-Gtzlsqymy-Jeailkpv B 211 Work Phone: Start: 11-20-[address] Mona Carvajal Facility:[id number] Start: 11-09-2022 End: 11-10-[address] Mona Baker Facility: Start: 10-31-2022 End: 10-31-2022 Patient encounter procedure Andi Harshal WARE [facility] Start: 09-22-2022 Office outpatient vi sit 40 minutes Mona Baker Work Phone: [facility] 600 DO Work Phone: Start: 09-22-[address] Mona Carvajal Facility: Start: 09-22-2022 End: 09-22-2022 Patient encounter procedure Andi Harshal WARE [facility] Start: 09-19-2022 End: 09-20-2022 ambulatory JOHN PAUL PRINCE Facility:H1 Start: 09-04-2022 Chart Update Mona Camarillo s Work Phone: UV-Mmzmlgcey-Lploiiyv B 101 Work Phone: Start: 08-30-2022 Telephone encounter Mona saucedo Work Phone: MB-Ipgbehult-Wvzkylbm 204 Movement Disorders Work Phone: Start: 08-30-[address] Francisco yanez [facility] Facility:1 Start: 08-29-2022 End: 08-30-2022 ambulatory [facility] Facility:H1 Start: 08-23-2022 End: 08-23-2022 Patient encounter procedure Andi WARE [facility] Start: 08-22-[address] Mona Carvajal Facility:[id number] Start: 08-18-2022 End: 08-19-2022 ambulatory [facility] Facility:H1 Start: 08-16-2022 End: 08-16-2022 Patient encounter procedure Andi WARE [facility] Start: 08-10-[address] Mona Carvajal Facility:[id number] Start: 08-10-2022 End: 08-10-2022 Patient encounter procedure Eyad Mims [facility] Start: 08-09-2022 End: 08-09-2022 Patient encounter procedure Andi WARE [facility] Start: 08-08-2022 End: 08-09-2022 ambulatory [facility] Facility:H1 Start: 08-01-2022 End: 08-02-2022 ambulatory [facility] Facility:H1 Start: 07-31-2022 Office outpatient ne w 45 minutes Mona Baker Work Phone: PM-Tlobgijnd-FGVRO [place] 5 Work Phone: Start: 07-31-2022 Patient encounter procedure Mona Baker Work Phone: JG-Sharwexmb-Tayvkcgg B 101 DO Work Phone: Start: 07-31-[address] Mona Carvajal Facility:[id number] Start: 07-28-2022 End: 07-29-2022 ambulatory JOHN PAUL PRINCE Facility: Start: 07-25-2022 End: 07-25-2022 Admission to same day surgery center MD Mona Baker [facility] [place] Start: 07-25-2022 End: 07-25-2022 ambulatory MD Mona Baker [facility] Work Phone: Start: 07-24-2022 End: 08-16-2022 Pre-admission assessment Andi WARE [facility] Start: 07-17-2022 End: 07-17-2022 ambulatory Janusz Ruiz Other [employer] Other Start: 07-17-2022 Office outpatient vi sit 25 minutes Janusz Ruiz [facility] Infectious Disease Start: 07-11-2022 End: 07-11-2022 ambulatory MD Mona Baker [facility] Work Phone: Start: 07-11-2022 End: 07-11-2022 Patient encounter procedure MD Mona Baker [facility] Slm-Kdh-Stkoeshg Testing Work Phone: Start: 06-02-2022 End: 06-02-2022 Patient encounter procedure Andi WARE [facility] Start: 05-23-2022 End: 05-23-2022 Admission to same day surgery center MD Mona Baker [facility] [place] Start: 05-23-2022 End: 05-23-2022 ambulatory MD Mona Baker [facility] Work Phone: Start: 05-19-2022 End: 05-19-2022 ambulatory MD Mona Baker [facility] Work Phone: Start: 05-19-2022 End: 05-19-2022 Patient encounter procedure MD Mona [facility] Xsp-Iyr-Jikylibu Testing Start: 05-15-2022 End: 05-15-2022 ambulatory Bill Mcgee Other [facility] 556 Fitness Other Start: 05-15-2022 Telephone encounter Bill Mcgee [facility] G[facility] Start: 05-12-2022 End: 05-14-2022 Evaluation and management of inpatient MD Mona Baker [facility] Start: 05-12-2022 End: 05-14-2022 observation encounter MD Mona Baker [facility] Work Phone: Start: 05-11-2022 End: 06-23-2022 Pre-admission assessment Felipa Milligan [facility] Start: 05-10-2022 Patient encounter procedure Mona Baker Work Phone: [facility] 250 DO Work Phone: Start: 05-08-2022 End: 05-08-2022 Patient encounter procedure Nicolás Diggs [facility] Start: 05-02-2022 End: 05-03-2022 ambulatory [facility] Facility:H1 Start: 03-31-2022 End: 03-31-2022 Patient encounter procedure Nicolás Diggs [facility] Start: 03-24-2022 End: 03-25-2022 ambulatory [facility] Facility:H1 Start: 03-23-2022 End: 03-23-2022 Patient encounter procedure Deshawn Gaffney [facility] Start: 03-15-2022 Office outpatient vi sit 25 minutes Mona Baker Work Phone: [facility] 600 DO Work Phone: Start: 03-15-2022 ambulatory Felipa Sandovalim Facility :[id number] Start: 03-10-2022 End: 03-11-2022 ambulatory [facility] Facility:H1 Start: 03-09-2022 End: 03-09-2022 Patient encounter procedure Deshawn Gaffney [facility] Start: 03-03-2022 End: 03-04-2022 ambulatory [facility] Facility:H1 Start: 02-17-2022 End: 02-17-2022 [facility] Start: 02-13-2022 End: 02-13-2022 Off-Site [facility] Start: 02-08-2022 End: 02-11-2022 Observation Gissel HINDS [facility] Start: 02-07-2022 End: 02-14-2022 Pre-admission assessment Nicolás Diggs [facility] Start: 02-02-2022 End: 02-02-2022 Emergency department patient visit Lorenzo Izaguirre [facility] Start: 01-27-2022 Telephone encounter Mona saucedo Work Phone: [facility] 250 DO Work Phone: Start: 01-16-2022 End: 01-16-2022 ambulatory Janusz Ruiz Other [facility] [address] [employer] Other Start: 01-16-2022 Office outpatient vi sit 25 minutes Janusz Ruiz [facility] Start: 01-04-2022 End: 01-04-2022 Patient encounter procedure Mona De Los Santoses [facility] Start: 2021 End: 2021 Emergency department patient visit Lorenzo Izaguirre [facility] Start: 2021 Telephone encounter Mon[facility]endez lewis [facility] Work Phone: Start: 12-27-2021 End: 12-27-2021 Office outpatient visit 15 minutes Ye Lobo MD Work Phone: [facility] Comment on above: Bipolar 1 disorder, manic, mild (HCC) (Primary Dx); Generalized anxiety disorder; Long-term use of high-risk medication Start: 12-20-2021 Telephone encounter Mona [facility]endez lewis [facility] Work Phone: Start: 12-19-2021 End: 01-24-2022 Recurring Leo Milligan [facility] Start: 12-15-2021 Office outpatient vi sit 40 minutes Mona Baker Work Phone: [facility] 600 DO Work Phone: Start: 12-06-2021 End: 12-06-2021 Patient encounter procedure Mona De Los Santoses [facility] Start: 11-29-2021 AUDIT Mona Madrigalgle s [facility] Work Phone: Start: 11-22-2021 Rx Renewal Mona Madrigalgle s Work Phone: [facility] 250 DO Work Phone: Start: 11-11-2021 End: 11-12-2021 ambulatory [facility] Facility:H1 Start: 11-04-2021 End: 11-05-2021 ambulatory [facility] Facility:H1 Start: 10-28-2021 Rx Renewal Mona woods Work Phone: [facility] 250 DO Work Phone: Start: 10-27-2021 End: 10-27-2021 [facility]Site [facility] Start: 10-20-2021 End: 10-20-2021 Off-Site [facility] Start: 10-14-2021 End: 10-19-2021 Observation Delvin SANTANA [facility] Start: 10-11-2021 End: 11-02-2021 Pre-admission assessment Lawson MATHIS [facility] Start: 10-06-2021 End: 10-13-2021 Observation Gissel HINDS [facility] Start: 09-27-2021 End: 09-27-2021 Office outpatient visit 25 minutes Upsylvain Lobo MD Work Phone: [facility] Comment on above: Bipolar 1 disorder, manic, mild (HCC) (Primary Dx); Generalized anxiety disorder; Long-term use of high-risk medication Start: 09-21-2021 End: 11-08-2021 Pre-admission assessment Felipa Milligan [facility] Start: 09-20-2021 Patient encounter procedure [facility] Work Phone: Start: 09-16-2021 End: 12-09-2021 Pre-admission assessment Eyad Leahy Garyafiabeau [facility] Start: 08-31-2021 End: 08-31-2021 Patient encounter procedure Bess Carpenter [facility] Start: 08-16-2021 Office outpatient vi sit 25 minutes Mona Baker Work Phone: [facility] 600 DO Work Phone: Start: 07-25-2021 Rx Renewal Mona Madrigalkonstantinkrystle s Work Phone: [facility] 250 DO Work Phone: Start: 07-14-2021 End: 10-14-2021 Pre-admission assessment Armani Yarbrough [facility] Start: 06-29-2021 Office outpatient vi sit 25 minutes Mona Baker Work Phone: [facility] 600 DO Work Phone: Start: 06-29-2021 Patient encounter procedure Mona Baker Work Phone: [facility] 600 DO Work Phone: Start: 06-21-2021 End: 06-21-2021 Office outpatient visit 25 minutes Ye Lobo MD Work Phone: [facility] Comment on above: Bipolar 1 disorder, mixed, mild (HCC) (Primary Dx); Generalized anxiety disorder; Long-term use of high-risk medication Start: 06-17-2021 Patient encounter procedure Mona Baker Work Phone: [facility] [address] [place] Work Phone: Start: 05-26-2021 Patient encounter procedure Mona Madrigalgles Work Phone: [facility] [address] [place] Work Phone: Start: 05-12-2021 SURGNONUH, Provider: Felipa Milligan, Status: Pen, Time: 1:00 PM Mona Baker Work Phone: [facility] 250[address] [place] Work Phone: Start: 05-10-2021 Chart Update Mona De Los Santose s Work Phone: [facility] 250[address] [place] Work Phone: Start: 05-05-2021 FUV, Provider: Felipa Milligan, Status: Pen, Time: 11:20 AM Mona Baker Work Phone: [facility] [address] [place] Work Phone: Start: 04-27-2021 Patient encounter procedure Mona De Los Santoses Work Phone: [facility] 250[address] [place] Work Phone: Start: 04-18-2021 Telephone encounter Mona M Ru ggles Work Phone: [facility] 250[address] [place] Work Phone: Start: 03-30-2021 Telephone encounter Mona M Ru ggles Work Phone: [facility] 250 DO Work Phone: Start: 03-22-2021 Patient encounter procedure Mona Ward Olivia Work Phone: [facility] 250 DO Work Phone: Start: 03-16-2021 Telephone encounter Moan Ward Ru ggles Work Phone: [facility] 250 DO Work Phone: Start: 03-15-2021 Office outpatient vi sit 25 minutes Mona Baker Work Phone: [facility] 250 DO Work Phone: Start: 03-11-2021 Rx Renewal Felipa Milligan MD Work Phone: [facility] 600 DO Work Phone: Start: 03-10-2021 Rx Renewal Felipa Milligan MD Work Phone: [facility] 250 DO Work Phone: Procedures Date Procedure Procedure Detail Performing Clinician Start: 10-17-2023 ECG 12-LEAD JACKIE KI LBANE Start: 10-17-2023 FOLLOW UP IN CARDIOLOGY JACKIE MCGINNIS Start: 10-17-2023 Ecg routine ecg w/le ast 12 lds w/i&r Felipa Milligan MD Work Phone: Start: 09-06-2023 [facility] MD Mona duong Work Phone: Start: 06-20-2023 HOLTER OR EVENT CARD IAC MONITOR JACKIE MCGINNIS Start: 06-20-2023 ECG 12-LEAD JACKIE KI LBANE Start: 06-17-2023 Plain chest X-ray MD Bharat Baker Start: 04-04-2023 ECG 12-LEAD JACKIE KI LBANE Start: 04-04-2023 FOLLOW UP IN CARDIOLOGY JACKIE MCGINNIS Start: 04-04-2023 Ecg routine ecg w/le ast 12 lds w/i&r Felipa Milligan MD Work Phone: Start: 02-23-2023 History of coronary artery bypass grafting S/P CABG (coronary artery bypass graft) Jackie Mcginnis MD Work Phone: Start: 02-20-2023 Adult depression scr eening assessment Keisha Brambila DELIVERER [employer] - ONLINE EDITOR Work Phone: Start: 07-25-2022 Circumcision MD Mona duong Start: 07-25-2022 Circumcision Andi CHATTERJEE Start: 05-23-2022 Cystoscopy and transurethral resection of bladder tumor MD Mona Baker Start: 05-23-2022 Transurethral resect ion of bladder neoplasm Andi WARE Start: 05-19-2022 SARS Antigen (LFIA) MD Mona Baker Start: 05-13-2022 Plain chest X-ray MD Bharat Baker Start: 11-10-2021 Cardiac catheterization Mona Baker Start: 04-06-2021 Cardioversion Felipa robertson Start: 03-04-2021 Defibrillator, devic e (physical object) Felipa Milligan Start: 03-04-2021 Pacemaker catheter, device (physical object) Felipa Milligan Start: 12-08-2019 Incision AND drainage H randolph Milligan Comment on above: Left foot Left foot Start: 04-04-2019 Total colonoscopy Fidel Milligan MD Work Phone: Start: 02-25-2018 Placement of stent Jamel Milligan Start: 09-08-2016 Excision skin lesion RUE Felipa Milligan Start: 01-17-2016 Cataract extraction with lens implantation, right eye. Felipa Milligan Start: 04-15-2014 Colonoscopy Jackie cordova MD Work Phone: Arthrodesis of foot Felipa flores MD Work Phone: Cardiac catheterization Jamel Milligan MD Work Phone: Cardiac catheterization Jamel Milligan Cardiovascular stres s test using pharmacologic stress agent Felipa Milligan Cataract surgery Felipa bonilla MD Work Phone: Colonoscopy and biop sy of colon Felipa Milligan Coronary artery bypa ss graft Felipa Milligan MD Work Phone: Coronary artery bypa ss graft Felipa Milligan Comment on above: x4 x4 Coronary artery bypa ss grafts x 4 CABG x 4 - Coronary artery bypass grafts x 4( Confirmed ) Felipa Milligan Cystoscopy Andi WARE Endoscopy and biopsy of upper gastrointestinal tract Felipa Milligan History of coronary artery bypass grafting S/P CABG (coronary artery bypass graft) Felipa Milligan MD Work Phone: History of coronary artery bypass grafting S/P CABG (coronary artery bypass graft) Felipa Milligan MD Work Phone: History of coronary artery bypass grafting S/P CABG (coronary artery bypass graft) Felipa Milligan MD Work Phone: Insertion of pacemak er pulse generator Felipa Milligan MD Work Phone: Insertion of periphe rally inserted central catheter Felipa Milligan MD Work Phone: Mastoidectomy Felipa Milligan MD Work Phone: Mastoidectomy Felipa Milligan Operation on bladder Mona Baker Work Phone: Operative procedure on foot Felipa Milligan MD Work Phone: Comment on above: LEFT FOOT RECON; Placement of stent Stent placeme nt( Confirmed ) Felipa Milligan Plan of Treatment Date Care Activity Detail Author Start: 04-15-2024 Screening for malignant neoplasm of colon [facility] Start: 04-03-2024 End: 04-03-2024 Patient encounter procedure 04/03/2024 11:00 AM EDT Office Visit [facility] [address] [place] [address] [place] [address] Felipa Milligan MD [address] [facility], [place] [address] [place] [address] [facility] Start: 03-12-2024 Echocardiography Echocardiogram [facility] Start: 02-21-2024 Depression Screening Depression Screening [facility] Start: 01-29-2024 End: 01-29-2024 Telemedicine consultation with patient 01/29/2024 11:00 AM EDT Telemedicine [facility] [address] [place] [id number] Ye Lobo MD [address] [address] [facility] Start: 01-17-2024 End: 10-16-2024 Alanine aminotransferase [Enzymatic activity/volume] in Serum or Plasma by With P-5'-P Alanine Aminotransferase Lab Routine Atherosclerosis of coronary artery bypass graft of [place] heart without angina pectoris Mixed hyperlipidemia Expected: 01/17/2024 (Approximate), Expires: 10/16/2024 [facility] Service Area Work Phone: Comment on above: Expected: 01/17/2024 (Approximate), Expi res: 10/16/2024 Start: 01-17-2024 End: 10-16-2024 Aspartate aminotransferase [Enzymatic activity/volume] in Serum or Plasma by With P-5'-P Aspartate Aminotransferase Lab Routine Atherosclerosis of coronary artery bypass graft of [place] si[place] heart without angina pectoris Mixed hyperlipidemia Expected: 01/17/2024 (Approximate), Expires: 10/16/2024 [facility] Work Phone: Comment on above: Expected: 01/17/2024 (Approximate), Expi res: 10/16/2024 Start: 01-17-2024 End: 10-16-2024 Basic metabolic 2000 panel - Serum or Plasma Basic Metabolic Panel Lab Routine Atherosclerosis of coronary artery bypass graft of [place] and si[place] heart without angina pectoris Paroxysmal atrial fibrillation (Multi) High risk medication use Expected: 01/17/2024 (Approximate), Expires: 10/16/2024 [facility] Work Phone: Comment on above: Expected: 01/17/2024 (Approximate), Expi res: 10/16/2024 Start: 01-17-2024 End: 10-16-2024 CBC panel - Blood by Automated count CBC Lab Routine Atherosclerosis of coronary artery bypass graft of [place] si[place] heart without angina pectoris Ischemic cardiomyopathy Paroxysmal atrial fibrillation (Multi) Expected: 01/17/2024 (Approximate), Expires: 10/16/2024 [facility] Work Phone: Comment on above: Expected: 01/17/2024 (Approximate), Expi res: 10/16/2024 Start: 01-17-2024 End: 10-16-2024 Lipid 1996 panel - Serum or Plasma Lipid Panel Lab Routine Atherosclerosis of coronary artery bypass graft of [place] heart without angina pectoris Mixed hyperlipidemia Expected: 01/17/2024 (Approximate), Expires: 10/16/2024 [facility] Work Phone: Comment on above: Expected: 01/17/2024 (Approximate), Expi res: 10/16/2024 Start: 01-17-2024 End: 10-16-2024 Thyrotropin [Units/volume] in Serum or Plasma Thyroid Stimulating Hormone Lab Routine Paroxysmal atrial fibrillation (Multi) S/P CABG (coronary artery bypass graft) Expected: 01/17/2024 (Approximate), Expires: 10/16/2024 [facility] Work Phone: Comment on above: Expected: 01/17/2024 (Approximate), Expi res: 10/16/2024 Start: 11-02-2023 Glaucoma screening Diabetic Eye Exam [facility] Start: 10-17-2023 End: 10-16-2024 Complete Pulmonary Function Test (Spirometry/DLCO/Lung Volumes) Complete Pulmonary Function Test (Spirometry/DLCO/Lung Volumes) PFT Routine Paroxysmal atrial fibrillation (Multi) High risk medication use Expected: 10/17/2023 (Approximate), Expires: 10/16/2024 [facility] Work Phone: Comment on above: Expected: 10/17/2023 (Approximate), Expi res: 10/16/2024 Start: 10-17-2023 End: 10-17-2023 Patient encounter procedure 10/17/2023 10:40 AM EDT Office Visit [facility] [address] [place] [address] [place] [address] Felipa Milligan MD [address] [facility] [place] [address] [place] [address] [facility] Start: 10-01-2023 End: 10-01-2023 Patient encounter procedure 10/01/2023 12:00 PM EDT Office Visit [facility] [address] [facility] [address] [place] [phone] Jackie Mcginnis MD [address] [facility] [address], [place] [address] [place] [address] [facility] Start: 09-06-[address] [facility] Start: 08-21-2023 Depresssion Monitoring Depresssion Monitoring [facility] Start: 07-20-2023 COVID-19 Vaccine ( season) COVID-19 Vaccine ( season) [facility] Start: 06-08-2023 End: 06-08-2023 Patient encounter procedure 06/08/2023 10:45 AM EST Office Visit [facility] [address] [place] [phone] Keisha Brambila, DELIVERER MERCHANDISE - ONLINE EDITOR [address] [place] [address] [place], [place] [id number] [facility] Start: 05-14-2023 Administration of herpes zoster vaccine Zoster Vaccines (2 of 2) [facility] Start: 05-14-2023 COVID-19 Vaccine (6 - Pfizer risk series) COVID-19 Vaccine (6 - Pfizer risk series) [facility] Start: 05-14-2023 COVID-19 Vaccine (6 - Pfizer series) COVID-19 Vaccine (6 - Pfizer series) [facility] Start: 05-14-2023 Zoster Vaccines (2 of 2) Zoster Vaccines (2 of 2) [facility] Start: 04-04-2023 End: 04-04-2023 Patient encounter procedure 04/04/2023 11:30 AM EDT Office Visit [facility] [address] [place] [address] [place] [address] Felipa Milligan MD [facility] [facility] [facility] [place] [address] [place] [address] [facility] Start: 03-26-2023 FUV, Provider: Jackie Mcginnis, Status: Pen, Time: 1:00 PM FUV, Provider: Jackie Mcginnis, Status: Pen, Time: 1:00 PM [facility] B 101 Work Phone: Start: 02-20-2023 End: 02-21-2024 CBC panel - Blood by Automated count CBC Lab Routine Memory loss Expected: 02/20/2023 (Approximate), Expires: 02/21/2024 [facility]: Comment on above: Expected: 02/20/2023 (Approximate), Expi res: 02/21/2024 Start: 02-20-2023 End: 02-21-2024 Cobalamin (Vitamin B12) [Mass/volume] in Serum or Plasma Vitamin B12 Lab Routine Memory loss Expected: 02/20/2023 (Approximate), Expires: 02/21/2024 [facility] [employer] Comment on above: Expected: 02/20/2023 (Approximate), Expi res: 02/21/2024 Start: 02-20-2023 End: 02-21-2024 Comprehensive metabolic 1998 panel - Serum or Plasma Comprehensive metabolic panel Lab Routine Memory loss Expected: 02/20/2023 (Approximate), Expires: 02/21/2024 [facility] [employer] Comment on above: Expected: 02/20/2023 (Approximate), Expi res: 02/21/2024 Start: 02-20-2023 End: 02-21-2024 CT Head WO contrast CT head wo IV contrast Imaging Routine Memory loss Expected: 02/20/2023, Expires: 02/21/2024 [facility] [employer] Comment on above: Expected: 02/20/2023, Expires: Start: 02-20-2023 End: 02-21-2024 Folate [Mass/volume] in Serum or Plasma Folate Lab Routine Memory loss Expected: 02/20/2023 (Approximate), Expires: 02/21/2024 [facility] [employer] Comment on above: Expected: 02/20/2023 (Approximate), Expi res: 02/21/2024 Start: 02-20-2023 End: 02-21-2024 Thyrotropin [Units/volume] in Serum or Plasma TSH Lab Routine Memory loss Expected: 02/20/2023 (Approximate), Expires: 02/21/2024 [facility] [employer] Comment on above: Expected: 02/20/2023 (Approximate), Expi res: 02/21/2024 Start: 02-20-2023 End: 02-20-2023 Patient encounter procedure 02/20/2023 1:45 PM EDT Office Visit [facility] [address] [place] [address] Keisha Brambila, BALTAZAR - ONLINE EDITOR [address] [phone] [facility] Start: 02-02-2023 COVID-19 Vaccine ( season) COVID-19 Vaccine ( season) [facility] Start: 02-02-2023 Influenza vaccination Influenza Vaccine (#1) [facility] Start: 11-20-2022 FUV, Provider: Jackie Mcginnis, Status: Pen, Time: 3:00 PM FUV, Provider: Jackie Mcginnis, Status: Pen, Time: 3:00 PM [facility]sbzysbms-VuafiJenn Aguilar 101 DO Work Phone: Start: 09-22-2022 FUV, Provider: Felipa Milligan, Status: Pen, Time: 3:00 PM FUV, Provider: Felipa Milligan, Status: Pen, Time: 3:00 PM [facility] Work Phone: Start: 09-22-2022 FUV, Provider: Felipa Milligan, Status: Pen, Time: 11:00 AM FUV, Provider: Felipa Milligan, Status: Pen, Time: 11:00 AM [facility] 600 DO Work Phone: Start: 07-31-2022 NPV, Provider: Jackie Mcginnis, Status: Pen, Time: 11:30 AM NPV, Provider: Jackie Mcginnis, Status: Pen, Time: 11:30 AM [facility] 250 DO Work Phone: Start: 07-25-2022 End: 07-25-[address] [facility] Start: 06-26-2022 NPV, Provider: Jackie Mcginnis, Status: Pen, Time: 1:00 PM NPV, Provider: Jackie Mcginnis, Status: Pen, Time: 1:00 PM [facility] 600 DO Work Phone: Start: 05-23-[address] [facility] Start: 05-23-[address] [facility] Start: 05-17-20[address] Blood [address] [facility] Start: 05-17-[address] [facility] Start: 05-16-[address] [facility] Start: 05-16-[address] [facility] Start: 05-15-[address] Blood [address] [facility] Start: 05-15-[address] [facility] Start: 05-14-[address] Blood [address] [facility] Start: 05-14-2022 End: 05-14-[address] [facility] Start: 05-13-20[address] Blood [address] [facility] Start: 05-13-[address] [facility] Start: 05-12-2022 Hospital admission [facility] Start: 05-12-2022 Referral to animal anatomy teacher [facility] Start: 05-12-[address] [facility] Start: 04-04-2022 End: 04-04-2022 Patient encounter procedure 04/04/2022 Office Visit Psychiatry Ye Lobo MD [address] [place] [id number] [facility] Start: 02-02-2022 Influenza vaccination Sequential Influenza Vaccine (#1) [facility] Start: 12-27-2021 End: 12-27-2021 Patient encounter procedure 12/27/2021 Office Visit Psychiatry Ye Lobo MD [address] [place] [id number] [facility] Start: 12-15-2021 FUV, Provider: Felipa Milligan, Status: Pen, Time: 10:40 AM FUV, Provider: Felipa Milligan, Status: Pen, Time: 10:40 AM [facility] 600 DO Work Phone: Start: 11-11-2021 History and physical examination, annual for health maintenance Wellness Visit [facility] Start: 09-27-2021 End: 09-27-2021 Patient encounter procedure 09/27/2021 Office Visit Psychiatry Ye Lobo MD [address] [place] [id number] [facility] Start: 09-20-2021 FUV, Provider: Felipa Milligan, Status: Pen, Time: 10:30 AM FUV, Provider: Felipa Milligan, Status: Pen, Time: 10:30 AM [facility] 250 DO Work Phone: Start: 09-13-2021 DTaP/Tdap/Td Vaccines (2 - Td or Tdap) DTaP/Tdap/Td Vaccines (2 - Td or Tdap) [facility] Start: 09-13-2021 Hemoglobin A1c measurement A1C [facility] Start: 09-13-2021 Tetanus vaccination Tetanus: Every 10yrs [facility] Start: 08-16-2021 FUV, Provider: Felipa Milligan, Status: Pen, Time: 11:30 AM FUV, Provider: Feliap Milligan, Status: Pen, Time: 11:30 AM [facility] 250 DO Work Phone: Start: 08-05-2021 EKG, Provider: RENETTA ALMEIDA CORROSION CONTROL ENGINEER 1,[id number], Status: Pen, Time: 1:30 PM EKG, Provider: RENETTA ALMEIDA CORROSION CONTROL ENGINEER 1,[id number], Status: Pen, Time: 1:30 PM [facility] 250 DO Work Phone: Start: 07-12-2021 FUV, Provider: Eyad Mims, Status: Pen, Time: 10:30 AM FUV, Provider: Eyad Mims, Status: Pen, Time: 10:30 AM [facility] 250 DO Work Phone: Start: 06-29-2021 FUV, Provider: Feilpa Milligan, Status: Pen, Time: 10:30 AM FUV, Provider: Felipa Milligan, Status: Pen, Time: 10:30 AM [facility] [address] [place] Work Phone: Start: 06-20-2021 COVID-19 Vaccine (4 - Booster for Pfizer series) COVID-19 Vaccine (4 - Booster for Pfizer series) [facility] Start: 06-20-2021 COVID-19 Vaccine (6 - Pfizer series) COVID-19 Vaccine (6 - Pfizer series) [facility] Start: 05-05-2021 FUV, Provider: Felipa Milligan, Status: Pen, Time: 11:20 AM FUV, Provider: Felipa Milligan, Status: Pen, Time: 11:20 [facility] [address] [place] Work Phone: Start: 05-02-2021 STRESSNUC2, Provider: ARVIND HHVI NUCLEAR 01,[id number], Status: Pen, Time: 12:30 PM STRESSNUC2, Provider: ARVIND HHVI NUCLEAR 01,[id number], Status: Pen, Time: 12:30 PM [facility] [address] [place] Work Phone: Start: 04-27-2021 STRESSNUC2, Provider: ARVIND HHVI NUCLEAR 01,[id number], Status: Pen, Time: 12:30 PM STRESSNUC2, Provider: ARVIND HHVI NUCLEAR 01,[id number], Status: Pen, Time: 12:30 PM [facility] [address] [place] Work Phone: Start: 03-22-2021 EKG, Provider: RENETTA ALMEIDA CORROSION CONTROL ENGINEER 1,[id number], Status: Pen, Time: 8:00 AM EKG, Provider: RENETTA ALMEIDA CORROSION CONTROL ENGINEER 1,[id number], Status: Pen, Time: 8:00 AM [facility] 250 DO Work Phone: Start: 03-15-2021 BPCHECK, Provider: RENETTA ALMEIDA CORROSION CONTROL ENGINEER 1,[id number], Status: Pen, Time: 1:45 PM BPCHECK, Provider: RENETTA ALMEIDA CORROSION CONTROL ENGINEER 1,[id number], Status: Pen, Time: 1:45 PM [facility] 250 DO Work Phone: Start: 07-16-2020 Pneumococcal Vaccine: 65+ Years (2 - PCV) Pneumococcal Vaccine: 65+ Years (2 - PCV) [facility] Start: 07-16-2020 Pneumococcal Vaccine: Age 65+ (2 - PCV) Pneumococcal Vaccine: Age 65+ (2 - PCV) [facility] Start: 07-16-2020 Pneumococcal Vaccine: Age 65+ (2 of 2 - PCV) Pneumococcal Vaccine: Age 65+ (2 of 2 - PCV) [facility] Start: 2013 Abdominal aortic aneurysm screening Abdominal Aortic Aneurysm (AAA) Screening [facility] Start: 2013 Fall risk assessment Falls Risk Assessment [facility] Start: 2013 Pneumococcal Vaccine: 65+ Years (1 - PCV) Pneumococcal Vaccine: 65+ Years (1 - PCV) [facility] Start: 2008 Hepatitis B Vaccines (1 of 3 - Risk 3-dose series) Hepatitis B Vaccines (1 of 3 - Risk 3-dose series) [facility] Start: 1998 Administration of herpes zoster vaccine Zoster Vaccines (1 of 2) [facility] Start: 1998 Screening for malignant neoplasm of colon [facility] Start: 1998 Zoster Vaccines (1 of 2) Zoster Vaccines (1 of 2) [facility] Start: 1970 DTaP/Tdap/Td Vaccines (1 - Tdap) DTaP/Tdap/Td Vaccines (1 - Tdap) [facility] Start: 12-31-1967 DTaP/Tdap/Td Vaccines (1 - Tdap) DTaP/Tdap/Td Vaccines (1 - Tdap) [facility] Start: 12-31-1967 Urine screening for protein Diabetes: Urine Protein Screening [facility] Start: 1966 Hepatitis C screening Hepatitis C Screening [facility] Start: 1960 Depression Screening Depression Screening [facility] Start: 1958 Diabetic foot examination [facility] Start: 1958 Glaucoma screening Diabetes: Retinopathy Screening [facility] Start: 1958 Microalbumin measurement, urine, quantitative Urine Microalbumin [facility] Start: 1958 Ophthalmic examination and evaluation Ophthalmology Exam [facility] Start: 1958 Preventive dental service Diabetes: Dental Exam [facility] Start: 1958 Urine screening for protein Urine Microalbumin [facility] Start: 12-31-1951 History and physical examination, annual for health maintenance Wellness Visit [facility] Start: 07-02-1949 COVID-19 Vaccine (#1) COVID-19 Vaccine (#1) [facility] Start: 1948 Creatinine measurement Creatinine Level [facility] Start: 1948 Hemoglobin A1c measurement [facility] Start: 1948 Lipid panel Lipid Panel [facility] Start: 1948 Medicare Advantage Annual Wellness Visit (AWV) Medicare Advantage Annual Wellness Visit (AWV) [facility] Start: 1948 Medicare Annual Wellness Visit Medicare Annual Wellness Visit (AWV) [facility] Start: 1948 Potassium measurement Potassium Level [facility] Start: 1948 Prostate specific antigen measurement PSA Level [facility] Start: 1948 Screening for malignant neoplasm of colon [facility] Start: 1948 Tetanus vaccination Tetanus: Every 10yrs [facility] Start: 1948 Thyroid stimulating hormone measurement TSH Level [facility] Patient Education [facility] Work Phone: Patient referral [facility] Work Phone: Immunizations Immunization Date Immunization Notes Care Provider Fa cility 04-03-2022 COVID-19 mRNA Bivale nt Booster (Pfizer) MD Mona Baker [facility] 04-03-2022 Flu vaccine, quadrivalent, high-dose, preservative free, age 65y+ (FLUZONE) Jackie Mcginnis MD Work Phone: [facility] Work Phone: 04-03-2022 influenza virus vacc ine, unspecified formulation Andi WARE [facility] 04-25-2021 Pfizer-BioNTech COVI D-19 Vacc 30 MCG/0.3ML Intramuscular Suspension Mona Baker Work Phone: [facility] 04-11-2021 influenza virus vacc ine, unspecified formulation Andi WARE [facility] 04-11-2021 influenza, injectabl e, quadrivalent, contains preservative [facility] [place] Work Phone: Comment on above: Series: 03-30-2021 Fluzone High-Dose Quadrivalent 0.7 ML Intramuscular Suspension Prefilled Syringe Mona Baker Work Phone: [facility] 600 DO Work Phone: 03-30-2021 influenza virus vacc ine, unspecified formulation Lawson MATHIS [facility] Comment on above: Result Comment: Rout e: Unknown Result Comment: Rout e: Unknown 03-21-2021 Pfizer-BioNTech COVI D-19 Vacc 30 MCG/0.3ML Intramuscular Suspension Mona Ward Olivia Work Phone: [facility] Comment on above: Series: 08-26-2020 Pfizer-BioNTech COVI D-19 Vacc 30 MCG/0.3ML Intramuscular Suspension; Translations: [Pfizer-BioNTech COVID-19 Vaccine] Mona Ward Olivia Work Phone: [facility] 600 DO Work Phone: Comment on above: Reason for Medicatio n: Prophylaxis Reason for Medicatio n: Prophylaxis 08-11-2020 Pfizer-BioNTech COVI D-19 Vacc 30 MCG/0.3ML Intramuscular Suspension Mona Ward Olivia Work Phone: [facility] Comment on above: Series: 07-29-2020 Pfizer-BioNTech COVI D-19 Vacc 30 MCG/0.3ML Intramuscular Suspension; Translations: [Pfizer-BioNTech COVID-19 Vaccine] Mona Ed Olivia Work Phone: [facility] [address] [place] Work Phone: Comment on above: Series: Reason for Medicatio n: Prophylaxis Reason for Medicatio n: Prophylaxis 03-28-2020 influenza virus vacc ine, unspecified formulation Andi WARE [facility] 03-28-2020 influenza, high dose seasonal, preservative-free Monaandi Baker Work Phone: [facility] [address] [place] Work Phone: 03-17-2020 influenza virus vacc ine, unspecified formulation Andi WARE [facility] 03-17-2020 influenza, seasonal, injectable Mona Baker Work Phone: [facility] 600 DO Work Phone: 02-25-2020 influenza virus vacc ine, unspecified formulation Felipa Milligan [facility] 02-21-2020 influenza virus vacc ine, unspecified formulation Andi WARE [facility] 02-21-2020 influenza, high dose seasonal, preservative-free Mona M Olivia Work Phone: [facility] 600 DO Work Phone: 07-16-2019 pneumococcal polysaccharide vaccine, 23 valent Mona M Olivia Work Phone: [facility] 600 DO Work Phone: Comment on above: Result Comment: Andrei dalton: Unknown Result Comment: Rout e: Unknown 03-20-2019 influenza virus vacc ine, unspecified formulation Andi WARE [facility] 03-20-2019 influenza, high dose seasonal, preservative-free Mona M Olivia Work Phone: [facility] 600 DO Work Phone: 03-04-2019 influenza virus vacc ine, unspecified formulation Mona M Olivia [facility] [address] [place] Work Phone: 02-26-2018 influenza virus vacc ine, unspecified formulation [facility]a M Olivia [facility] [place] Work Phone: 03-04-2017 influenza, high dose seasonal, preservative-free Mona M Olivia Work Phone: [facility] [address] [place] Work Phone: 04-04-2016 influenza virus vacc ine, unspecified formulation Mona M Olivia [facility] [place] Work Phone: 03-16-2015 influenza virus vacc ine, unspecified formulation Andi WARE [facility] 03-16-2015 influenza, seasonal, injectable Mona Ed Olivia [facility] DO Work Phone: 03-04-2015 influenza virus vacc ine, unspecified formulation Mona M Olivia [facility]: [facility] [address] [place] Work Phone: 03-04-2014 influenza virus vacc ine, unspecified formulation Mona Wadr Olivia Work Phone: [facility] [address] [place] Work Phone: 03-07-2013 influenza, seasonal, injectable Leo Milligan [facility] Comment on above: Early/Late Reason: N ursing Judgment Early/Late Reason: N ursing Judgment 03-04-2012 influenza virus vacc ine, unspecified formulation Mona Ward Olivia Work Phone: [facility] [address] [place] Work Phone: 09-14-2011 tetanus toxoid, redu kelsea diphtheria toxoid, and acellular pertussis vaccine, adsorbed Leo Milligan [facility] 06-04-2011 tetanus toxoid, adsorbed Cool na M Olivia Work Phone: [facility] [address] [place] Work Phone: 03-04-2011 influenza, high dose seasonal, preservative-free Jackie Mcginnis MD Work Phone: [facility] Work Phone: 03-04-2010 influenza, high dose seasonal, preservative-free Jackie Mcginnis MD Work Phone: [facility] Work Phone: 04-24-2009 novel influenza-H1N1 -09, preservative-free, injectable Mona Baker [facility] DO Work Phone: 06-04-2008 pneumococcal polysaccharide vaccine, 23 valent Mona Baker Work Phone: [facility] [address] [place] Work Phone: influenza virus vacc ine, unspecified formulation Mona Baker Work Phone: [facility] [address] [place] Work Phone: Comment on above: 2010 2009 2008 Payers Date Payer Category Payer Medicare [id number] 2023 Self-pay [id number] 2022 Medicare [id number] 5 1959 Medicare [id number] 2.1 6.840.1.251676.19 1948 Unknown [id number] 2.16.8 40.1.993809.3.579.2.1069 1948 Unknown [id number] 2.16.8 40.1.523931.3.579.2.1068 1948 Unknown [id number] 2.16.84 0.1.346407.3.579.2.593 1948 Unknown [id number] 2.16.84 0.1.894852.3.579.2.593 1948 Unknown [id number] 2.16.84 0.1.504646.3.579.2.593 1948 Unknown [id number] 2.16.84 0.1.977574.3.579.2.593 1948 Unknown [id number] 2.16.84 0.1.663297.3.579.2.593 1948 Unknown [id number] 2.16.84 0.1.852077.3.579.2.593 1948 Unknown [id number] 2.16.84 0.1.269690.3.579.2.593 1948 Unknown [id number] 2.16.84 0.1.181243.3.579.2.593 1948 Unknown [id number] 2.16.84 0.1.665717.3.579.2.593 1948 Unknown [id number] 2.16.84 0.1.888131.3.579.2.593 1948 Unknown [id number] 2.16.84 0.1.377369.3.579.2.593 1948 Unknown [id number] 2.16.84 0.1.120271.3.579.2.593 1948 Unknown [id number] 2. 840.1.533029.3.579.2.356 1948 Unknown [id number] 2. 840.1.631799.3.579.2.356 1948 Unknown [id number] 2. 840.1.217135.3.579.2.356 1948 Unknown [id number] .16 840.1.826424.3.579.2.356 1948 Unknown [id number] 2.16 840.1.999462.3.579.2.356 1948 Unknown [id number] 2. 840.1.516191.3.579.2.356 1948 Unknown [id number] 2.16. 840.1.630573.3.579.2.356 1948 Unknown [id number] 2.16.8 40.1.365821.3.579.2.1244 1948 Unknown [id number] 2.16.8 40.1.893401.3.579.2.1244 1948 Unknown [id number] 2.16.8 40.1.673649.3.579.2.1244 1948 Unknown [id number] 2.16.8 40.1.291440.3.579.2.1244 1948 Unknown [id number] 2.16.8 40.1.569302.3.579.2.1244 1948 Unknown [id number] 2.16.84 0.1.838936.3.579.2.1259 1948 Unknown [id number] 2.16.84 0.1.715589.3.579.2.125 1948 Unknown [id number] 2.16.84 0.1.926341.3.579.2.1259 1948 Unknown [id number] 2.16.84 0.1.445487.3.579.2.1259 1948 Unknown [id number] 2.16.84 0.1.992169.3.579.2.1259 1948 Unknown [id number] 2.16.84 0.1.445787.3.579.2.1259 1948 Unknown [id number] 2.16.84 0.1.463153.3.579.2.1259 1948 Unknown [id number] 2.16.84 0.1.023386.3.579.2.1259 1948 Unknown [id number] 2.16.840 .1.080310.3.579.2.1259 1948 Unknown [id number] 2.16. 840.1.641957.3.579.2.903 1948 Unknown [id number] 2.16.8 40.1.826161.3.579.2.72 1948 Unknown [id number] 2.16.8 40.1.932051.3.579.2. 1948 Unknown [id number] 2.16.8 40.1.481682.3.579.2.72 1948 Unknown [id number] 2.16.8 40.1.858333.3.579.2. 1948 Unknown [id number] 2.16.8 40.1.569830.3.579.2. 1948 Unknown [id number] 2.16.8 40.1.148645.3.579.2. 1948 Unknown [id number] 2.16.8 40.1.229912.3.579.2 1948 Unknown [id number] 2.16.8 40.1.488508.3.579.2. 1948 Unknown [id number] 2.16.8 40.1.597779.3.579.2. 1948 Unknown [id number] 2.16.8 40.1.607218.3.579.2. 1948 Unknown [id number] 2.16.8 40.1.414463.3.579.2. 1948 Unknown [id number] 2.16.8 40.1.220232.3.579.2. 1948 Unknown [id number] 2.16.8 40.1.926035.3.579.2. 1948 Unknown [id number] 2.16.8 40.1.949462.3.579.2. 1948 Unknown [id number] 2.16.8 40.1.321300.3.579.2 1948 Unknown [id number] 2.16.8 40.1.749384.3.579.2.727 1948 Unknown [id number] 2.16.8 40.1.244365.3.579.2.727 1948 Unknown [id number] 2.16.8 40.1.578778.3.579.2.72 1948 Unknown [id number] 2.16.8 40.1.813773.3.579.2.727 1948 Unknown [id number] 2.16.8 40.1.340666.3.579.2.727 1948 Unknown [id number] 2.16.8 40.1.645039.3.579.2.727 1948 Unknown [id number] 2.16.8 40.1.858274.3.579.2.727 Unknown Unknown HCAP/HFA/FAP Active [id number] Unknown [id number] 2.16.8 40.1.641025.3.579.2.531 Unknown [id number] 2.16.8 40.1.862663.3.579.2.531 Social History Date Type Detail Facility Start: 03-20-2023 End: 10-30-2023 No alcohol use No alcohol use [facility] Comment on above: QUIT 11/2001; YETTI CUP OF COFFEE DAILY, PROTIEN SHAKE WITH COFFEE; Start: 06-21-2021 End: 03-26-2023 Tobacco smoking status NHIS Never smoked tobacco [facility] Start: 06-21-2021 End: 10-17-2023 Tobacco use and exposure Smokeless tobacco non-user [facility] Start: 06-21-2021 End: 10-30-2023 Alcohol intake Ex-drinker (finding) [facility] Start: 1950 Sex Assigned At Not on file [facility] Start: 09-17-2021 End: 10-17-2023 Exposure to SARS-CoV-2 (event) Not sure [facility] Tobacco [facility] Comment on above: deies DENIES denies Start: 03-20-2023 End: 10-30-2023 Sex Assigned At Male [facility] Tobacco smoking status No Smoking Status Entered [facility] Start: 03-23-2022 End: 10-31-2023 Tobacco smoking status Ex-smoker (finding) [facility] Comment on above: The patient states, I quit smoking 22 years ago. Tobacco smoking status Never [facility] Comment on above: The patient states, I quit smoking 22 years ago. Start: 1950 Sex Assigned At Male Geron[facility] Tobacco smoking status NHIS Tobacco smoking consumption unknown [facility] [employer] End: 06-04-2000 History of tobacco use Current smoker [facility] End: 06-04-2000 History of tobacco use Cigarette Smoker [facility] Start: 03-26-2023 End: 10-17-2023 Alcohol intake Lifetime non-drinker (finding) [facility] Work Phone: Medical Equipment Procedure Code Equipment Code Equipment Origin al Text Equipment Identifier Dates Insertion, pacemaker Dual-chamber implantable defibrillator [id number] FDA Start: 03-08-2021 CL CLOSURE DEVIC E EXOSEAL 6F FDA Start: 02-05-2018 CL STENT SUSANNA 3.5 X 15 FDA Start: 02-06-2018 CL CLOSURE DEVIC E EXOSEAL 6F FDA Start: 02-05-2018 CL STENT SUSANNA 3.5 X 15 FDA Start: 02-06-2018 CL CLOSURE DEVIC E EXOSEAL 6F FDA Start: 02-05-2018 CL STENT SUSANNA 3.5 X 15 FDA Start: 02-06-2018 CL CLOSURE DEVIC E EXOSEAL 6F FDA Start: 02-05-2018 CL STENT SUSANNA 3.5 X 15 FDA Start: 02-06-2018 CL CLOSURE DEVIC E EXOSEAL 6F FDA Start: 02-05-2018 CL STENT SUSANNA 3.5 X 15 FDA Start: 02-06-2018 CL CLOSURE DEVIC E EXOSEAL 6F FDA Start: 02-05-2018 CL STENT SUSANNA 3.5 X 15 FDA Start: 02-06-2018 CL CLOSURE DEVIC E EXOSEAL 6F FDA Start: 02-05-2018 CL STENT SUSANNA 3.5 X 15 FDA Start: 02-06-2018 CL CLOSURE DEVIC E EXOSEAL 6F FDA Start: 02-05-2018 CL STENT SUSANNA 3.5 X 15 FDA Start: 02-06-2018 Goals Date Patient Goal Desired Activity /State Functional Status Date Assessment Result Facility 08-28-2023 Functional Status N/A [facility] 08-27-2023 Functional Status [facility] 07-17-2023 Functional Status N/A [facility] 04-09-2023 Functional Status No [facility] 01-08-2023 Functional Status N/A [facility] 09-22-2022 Functional Status N/A [facility] 08-23-2022 Functional Status N/A [facility] 08-16-2022 Functional Status N/A [facility] 08-09-2022 Functional Status N/A [facility] 06-02-2022 Functional Status N/A [facility] 05-14-2022 Functional status [facility] at [facility] Work Phone: 05-12-2022 Functional status Patient at [facility] Work Phone: 03-31-2022 Functional Status No [facility] 03-23-2022 Functional Status N/A [facility] 03-09-2022 Functional Status N/A [facility] 02-09-2022 Functional Status No [facility] 02-08-2022 Functional Status [facility] 02-02-2022 Functional Status N/A [facility] 2021 Functional Status Yes [facility] 12-15-2021 PHQ-9 [id number] Moderate (10-14) -[facility] DO Work Phone: Mental Status Date Assessment Result Facility 05-14-2022 Cognitive function Cognitive Sta s Patient at [facility] Work Phone: 05-12-2022 Cognitive function Cognitive Sta s Patient at [facility] Work Phone: Clinical Notes 07-23-2019 to 10-30-2023 Ye Lobo MD - 10/30/2023 11:21 AM Fiorella Milligan MD - 10/17/2023 10:40 AM EDTPatient Instructions Note Date & Type Note Facility 10-30-2023 Note BEHAVIORAL HEALTH PS YCHIATRIC PROGRESS NOTE Patient is here for psychotropic medication management visit. Date of service: 10/30/2023 Interval History: Patient is seen with his sibling. Patient reports with his last adjustments in his medications he is doing really well. He reports stable moods. He is denying any pervasive irritability or inflated moods. He is not endorsing any racing thoughts or flight of ideas. Sleep quality and quantity has been fair. His parkinsonian symptoms are being managed by his neurology. He has very mild tremor of upper extremities. Patient denies any falls. He denies pervasive sadness or anhedonia. He is enjoying his time with his family and friends. He is not withdrawn or isolated. He denies any feelings of hopelessness, helplessness or worthlessness. Hygiene and grooming has been fair. Patient needs minimal help with his ADLs. Denies any ongoing psychosis. His anxiety is managed fairly well with the help of as needed Xanax. Denies any ongoing drug or alcohol abuse. Patient denies any memory impairment. 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 Patient has been compliant. We will continue the current plan. Goals and objectives of treatment: Main mood stability Maintain good anxiety control Continue to monitor side effects Treatment compliance The following portions of the patient's history were reviewed and updated as appropriate: allergies, current medications, past family history, past medical history, past social history, past surgical history and problem list. Review of Systems Constitutional: Negative. HENT: Negative. Eyes: Negative. Respiratory: Negative. Cardiovascular: Negative. Gastrointestinal: Negative. Endocrine: Negative. Genitourinary: Negative. Allergic/Immunologic: Negative. Neurological: Positive for tremors. Hematological: Negative. AIMS exam completed: No abnormal involuntary movements noted PSYCHIATRIC EXAM: Grooming & Hygiene: Age appropriate, fair eye contact, fair grooming and hygiene , patient is using a wheelchair General Behavior: Cooperative and better engaged Psychomotor Activity: Upper extremity tremor mild Speech: Normal rate and tone Flow to Thought: Denies any ongoing racing thoughts or flight of ideas Thought Associations: Intact Content of Thought: No evidence of suicidal ideations / homicidal ideations / delusions / obsessions Mood: Good Affect: Appropriate and full range Insight: fair Judgment: fair Orientation: alert and oriented to person, place, time Memory: Recent intact Attention: Fair Concentration: Fair Language: Average Fund of Knowledge: Average Labs/ Diagnostic Imaging reviewed: None ASSESSMENT AND PLAN: Follow-up plan was discussed with patient. Impression/ Plan: Bipolar disorder type I, manic, mildin full remission Generalized anxiety disorder Diabetes type 2, hypertension, hyperlipidemia Current Global assessment of functionin Recommendations: Treatment Plan: Pharmacological management: Alternative medication plans were discussed with the patient/guardian. All relevant side effects and potential adverse effects were discussed with the patient/guardian. Standard cautions and potential benefits were discussed. FDA label and OFF label uses of medications were discussed. Patient/Guardian consented to the start/continuation of the following: Continue Abilify 10 mg p.o. daily Continue lamotrigine 200 mg p.o. daily Continue Xanax 0.25 mg p.o. 3 times daily as needed for anxiety Will monitor side effects and progress and adjust medications appropriately Crisis Intervention plan was discussed and agreed upon. Patient/Guardian will call 911 in case of emergency. Emergency contact information was provided to the patient/guardian. Laboratory and other tests: See orders. Psychotherapy: None Follow up as scheduled or return early if needed. School or community referral:: None Treatment Goals and Objectives discussed. Other Referrals/Consults/Psychological Testing: None Ye Lobo MD AUTHENTICATED BY YE LOBO, ON 10/30/2023 11:28:45 [facility] 10-30-2023 History of Present illness Narrative BEHAVIORAL HEALTH PSYCHIATRIC PROGRESS NOTE Patient is here for psychotropic medication management visit. Date of service: 10/30/2023 Interval History: Patient is seen with his sibling. Patient reports with his last adjustments in his medications he is doing really well. He reports stable moods. He is denying any pervasive irritability or inflated moods. He is not endorsing any racing thoughts or flight of ideas. Sleep quality and quantity has been fair. His parkinsonian symptoms are being managed by his neurology. He has very mild tremor of upper extremities. Patient denies any falls. He denies pervasive sadness or anhedonia. He is enjoying his time with his family and friends. He is not withdrawn or isolated. He denies any feelings of hopelessness, helplessness or worthlessness. Hygiene and grooming has been fair. Patient needs minimal help with his ADLs. Denies any ongoing psychosis. His anxiety is managed fairly well with the help of as needed Xanax. Denies any ongoing drug or alcohol abuse. Patient denies any memory impairment. 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 Patient has been compliant. We will continue the current plan. Goals and objectives of treatment: Main mood stability Maintain good anxiety control Continue to monitor side effects Treatment compliance The following portions of the patient's history were reviewed and updated as appropriate: allergies, current medications, past family history, past medical history, past social history, past surgical history and problem list. Review of Systems Constitutional: Negative. HENT: Negative. Eyes: Negative. Respiratory: Negative. Cardiovascular: Negative. Gastrointestinal: Negative. Endocrine: Negative. Genitourinary: Negative. Allergic/Immunologic: Negative. Neurological: Positive for tremors. Hematological: Negative. AIMS exam completed: No abnormal involuntary movements noted PSYCHIATRIC EXAM: Grooming & Hygiene: Age appropriate, fair eye contact, fair grooming and hygiene , patient is using a wheelchair General Behavior: Cooperative and better engaged Psychomotor Activity: Upper extremity tremor mild Speech: Normal rate and tone Flow to Thought: Denies any ongoing racing thoughts or flight of ideas Thought Associations: Intact Content of Thought: No evidence of suicidal ideations / homicidal ideations / delusions / obsessions Mood: Good Affect: Appropriate and full range Insight: fair Judgment: fair Orientation: alert and oriented to person, place, time Memory: Recent intact Attention: Fair Concentration: Fair Language: Average Fund of Knowledge: Average Labs/ Diagnostic Imaging reviewed: None ASSESSMENT AND PLAN: Follow-up plan was discussed with patient. Impression/ Plan: Bipolar disorder type I, manic, mildin full remission Generalized anxiety disorder Diabetes type 2, hypertension, hyperlipidemia Current Global assessment of functionin Recommendations: Treatment Plan: Pharmacological management: Alternative medication plans were discussed with the patient/guardian. All relevant side effects and potential adverse effects were discussed with the patient/guardian. Standard cautions and potential benefits were discussed. FDA label and OFF label uses of medications were discussed. Patient/Guardian consented to the start/continuation of the following: Continue Abilify 10 mg p.o. daily Continue lamotrigine 200 mg p.o. daily Continue Xanax 0.25 mg p.o. 3 times daily as needed for anxiety Will monitor side effects and progress and adjust medications appropriately Crisis Intervention plan was discussed and agreed upon. Patient/Guardian will call 911 in case of emergency. Emergency contact information was provided to the patient/guardian. Laboratory and other tests: See orders. Psychotherapy: None Follow up as scheduled or return early if needed. School or community referral:: None Treatment Goals and Objectives discussed. Other Referrals/Consults/Psychological Testing: None Ye Lobo MD documented in this encounter [facility] 10-17-2023 History of Present illness Narrative Cristo Gil is a 72 y.o. male Chief Complaint Follow-up HPI Patient is in the office for follow-up for the problems noted below. He has had no cardiac events since his last visit but was admitted to [facility] in August 2023 for symptoms of dyspnea. We were not consulted during the admission. His records were reviewed and the patient apparently at the time had advanced kidney disease but was not seen by nephrology. There was no adjustment of cardiac medications made. He is presently without any symptoms of volume overload no orthopnea PND or lower extremity edema no chest pain or angina pectoris. He has no fever he has a defibrillator in place which has been followed closely and has been in normal function. His kidney function requires adjustment of his diabetes medicine which I brought his attention and suggested following up with his PCP to make the adjustment specially in regard to the Jardiance and metformin. The patient cannot afford Eliquis anymore due to cost and therefore he will be switched to Coumadin therapy to be managed by the Coumadin clinic. EKG today revealed atrial pacemaker rhythm. He is on amiodarone to prevent atrial fibrillation. ASSESSMENT AND PLAN: 1. Severe coronary artery disease, status post bypass surgery in the remote past, cardiac catheterization May 2021 revealed patent ZAVALA and 2 other vein grafts, the last graft was occluded but there was excellent collaterals. Medical therapy was recommended. We will continue aggressive risk factor management for CAD continue nitrates 2. ischemic cardiomyopathy stage C, functional class II NYHA for CHF, ejection fraction March 2023 was 50-55%, current medical therapy will be left unchanged 4. AICD in place for primary prevention purposes, being monitored in the [facility]. 5. Diabetes, managed by PCP. A1c is on target 6. Hyperlipidemia, on medical therapy, under control. 7. Hypothyroidism, on replacement therapy. Under control, thyroid function will be followed periodically while on amiodarone 8. Sleep apnea on CPAP machine. 9. Parkinson's disease stable 10. History of ventricular tachycardia with no recurrent events, currently on amiodarone therapy 11. Paroxysmal atrial fibrillation, currently his EKG showed atrial pacemaker rhythm he is on amiodarone. At his request we will switch from Eliquis to Coumadin due to cost. 12. CVA with mild left-sided residual deficit followed by neurology 13. 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 Class I obesity, patient was encouraged to reduce caloric consumption especially from snacks 15. High risk medication with anticoagulation and amiodarone both have been monitored closely. 16. Early dementia with forgetfulness but no behavior changes Review of Systems Respiratory: Positive for shortness of breath. Neurological: Positive for dizziness. All other systems reviewed and are negative. EKG done in office today Vitals: 10/17/23 1038 BP: 126/66 BP Location: Left arm Patient Position: Sitting Pulse: 60 Weight: 102 kg (225 lb) Height: 1.778 m (5' 10 ) Objective Physical Exam Constitutional: Appearance: Normal appearance. HENT: Nose: Nose normal. Neck: Vascular: No carotid bruit. Cardiovascular: Rate and Rhythm: Normal rate. Pulses: Normal pulses. Heart sounds: Normal heart sounds. Pulmonary: Effort: Pulmonary effort is normal. Abdominal: General: Bowel sounds are normal. Palpations: Abdomen is soft. Musculoskeletal: General: Normal range of motion. Cervical back: Normal range of motion. Right lower leg: No edema. Left lower leg: No edema. Skin: General: Skin is warm and dry. Neurological: General: No focal deficit present. Mental Status: He is alert. Psychiatric: Mood and Affect: Mood normal. Behavior: Behavior normal. Thought Content: Thought content normal. Judgment: Judgment normal. Allergies Patient has no known allergies. Current Medications Current Outpatient Medications: acetaminophen (Tylenol) 325 mg tablet, Take by mouth every 6 hours if needed for mild pain (1 - 3)., Disp: , Rfl: albuterol 90 mcg/actuation inhaler, Inhale 2 puffs every 4 hours if needed., Disp: , Rfl: ALPRAZolam (Xanax) 0.25 mg tablet, Take 1 tablet (0.25 mg) by mouth 3 times a day as needed., Disp: , Rfl: amiodarone (Pacerone) 200 mg tablet, Take 1 tablet (200 mg) by mouth once daily., Disp: , Rfl: ARIPiprazole (Abilify) 10 mg disintegrating tablet, Take 1 tablet (10 mg) by mouth once daily., Disp: , Rfl: ascorbic acid, vitamin C, 500 mg capsule, Take 1 capsule by mouth 2 times a day., Disp: , Rfl: aspirin 81 mg EC tablet, Take 1 tablet (81 mg) by mouth once daily., Disp: , Rfl: atorvastatin (Lipitor) 80 mg tablet, Take 1 tablet (80 mg) by mouth once daily at bedtime., Disp: 90 tablet, Rfl: 3 carbidopa-levodopa (Sinemet) 25-100 mg tablet, Take 1.5 tablets by mouth 4 times a day., Disp: , Rfl: carvedilol (Coreg) 25 mg tablet, Take 1 tablet (25 mg) by mouth 2 times a day., Disp: 180 tablet, Rfl: 3 cholecalciferol (Vitamin D-3) 25 MCG (1000 UT) capsule, Take 1 capsule (25 mcg) by mouth., Disp: , Rfl: coenzyme Q-10 100 mg capsule, Take 1 capsule (100 mg) by mouth once daily., Disp: , Rfl: empagliflozin (Jardiance) 10 mg, Take 1 tablet (10 mg) by mouth once daily., Disp: , Rfl: enalapril (Vasotec) 10 mg tablet, Take 1 tablet (10 mg) by mouth 2 times a day., Disp: 180 tablet, Rfl: 3 glimepiride (Amaryl) 2 mg tablet, Take 1 tablet (2 mg) by mouth 2 times a day., Disp: , Rfl: insulin lispro (HumaLOG U-100 Insulin) 100 unit/mL injection, Inject under the skin., Disp: , Rfl: insulin NPH, Isophane, (NovoLIN N NPH U-100 Insulin) 100 unit/mL injection, Inject under the skin., Disp: , Rfl: isosorbide mononitrate ER (Imdur) 60 mg 24 hr tablet, Take 1 tablet (60 mg) by mouth once daily., Disp: 90 tablet, Rfl: 3 lamoTRIgine (LaMICtal) 200 mg tablet, Take 1 tablet (200 mg) by mouth once daily., Disp: , Rfl: levothyroxine (Synthroid, Levoxyl) 175 mcg tablet, Take 1 tablet (175 mcg) by mouth once daily in the morning. Take before meals., Disp: , Rfl: magnesium oxide (Mag-Ox) 400 mg (241.3 mg magnesium) tablet, Take 1 tablet (400 mg) by mouth once daily., Disp: , Rfl: metFORMIN (Glucophage) 1,000 mg tablet, Take 1 tablet (1,000 mg) by mouth 2 times daily (morning and late afternoon)., Disp: , Rfl: nitroglycerin (Nitrostat) 0.4 mg SL tablet, Place 1 tablet (0.4 mg) under the tongue every [address] 1 TABLET UNDER THE TONGUE EVERY 5 MINUTES FOR UP TO 3 DOSES NEEDED FOR CHEST PAIN.CALL 911 IF PAIN PERSISTS., Disp: , Rfl: pantoprazole (ProtoNix) 40 mg EC tablet, Take 1 tablet (40 mg) by mouth once daily., Disp: 90 tablet, Rfl: 3 pediatric multivitamin (Gummi Bear Multivitamin) tablet,chewable, Chew 2 tablets once daily., Disp: , Rfl: tamsulosin (Flomax) 0.4 mg 24 hr capsule, Take 1 capsule (0.4 mg) by mouth once daily., Disp: , Rfl: torsemide (Demadex) 10 mg tablet, Take 1 tablet (10 mg) by mouth once daily., Disp: , Rfl: torsemide 40 mg tablet, Take 40 mg by mouth once daily. (Patient taking differently: Take 10 mg by mouth once daily.), Disp: 90 tablet, Rfl: 3 umeclidinium-vilanteroL (Anoro Ellipta) 62.5-25 mcg/actuation blister with device, Inhale 1 puff once daily., Disp: , Rfl: warfarin (Coumadin) 4 mg tablet, Take as directed per After Visit Summary., Disp: 14 tablet, Rfl: 0 Assessment/Plan 1. Atherosclerosis of coronary artery bypass graft of [place] heart without angina pectoris Follow Up In Cardiology Follow Up In Cardiology Alanine Aminotransferase Aspartate Aminotransferase Basic Metabolic Panel CBC Lipid Panel 2. Ventricular tachycardia (paroxysmal) (Multi) Follow Up In Cardiology 3. Ischemic cardiomyopathy CBC 4. AICD (automatic cardioverter/defibrillator) present 5. S/P PTCA (percutaneous transluminal coronary angioplasty) Follow Up In Cardiology 6. Hypertension, essential, benign 7. Paroxysmal atrial fibrillation (Multi) ECG 12 Lead Basic Metabolic Panel CBC Thyroid Stimulating Hormone warfarin (Coumadin) 4 mg tablet Complete Pulmonary Function Test (Spirometry/DLCO/Lung Volumes) 8. Mixed hyperlipidemia Alanine Aminotransferase Aspartate Aminotransferase Lipid Panel 9. High risk medication use Basic Metabolic Panel Complete Pulmonary Function Test (Spirometry/DLCO/Lung Volumes) 10. S/P CABG (coronary artery bypass graft) Thyroid Stimulating Hormone 11. Type 2 diabetes mellitus without complication, unspecified whether correction insulin use (Multi) 12. Class 1 obesity without serious comorbidity with body mass index (BMI) of 32.0 to 32.9 in adult, unspecified obesity type 13. Mild dementia without behavioral disturbance, psychotic disturbance, mood disturbance, or anxiety, unspecified dementia type (Multi) Scribe Attestation By signing my name below, Maria Del Carmen Moss LPN, Scribe attest that this documentation has been prepared under the direction and in the presence of Felipa Milligan MD. Provider Attestation - Scribe documentation All medical record entries made by the Scribe were at my direction and personally dictated by me. I have reviewed the chart and agree that the record accurately reflects my personal performance of the history, physical exam, discussion and plan. documented in this encounter [facility] Work Phone: 10-17-2023 Instructions Maria Del Carmen Campbell LPN - 10/17/2023 10:40 AM EDT Please bring all medicines, vitamins, and herbal supplements with you when you come to the office. Prescriptions will not be filled unless you are compliant with your follow up appointments or have a follow up appointment scheduled as per instruction of your physician. Refills should be requested at the time of your visit. Coumadin 4 mg daily at night INR 5 days later at [facility] Start coumadin 2 days before running out of Eliquis. Follow up 6 months BMI was above normal measurement. Current weight: 102 kg (225 lb) Weight change since last visit (-) denotes wt loss -6.2 lbs Weight loss needed to achieve BMI 25: 51.1 Lbs Weight loss needed to achieve BMI 30: 16.4 Lbs Provided instructions on dietary changes. documented in this encounter [facility] Work Phone: 09-06-2023 Procedure note [facility] 08-29-2023 Note [facility] Comment on above: Result Comment: Elec tronically Signed By: Olaf SINCLAIR MD\.br\Date and Time Signed: 08/29/23 13:22 EDT 08-29-2023 Evaluation + Plan note [facility] [place] from: Title:Discharge Note Author:Olaf SINCLAIR MD ate:08/29/23 Stable. Home. Discharge Diet(s): Calorie Controlled- 1800 Calorie Diet, Low Sodium- 2000 mg (08/29/23 10:04:00) Prescriptions Aldactone 25 mg Tab, 25 mg= 1 tab(s), Oral, Daily alprazolam 0.25 mg Tab, 0.25 mg= 1 tab(s), Oral, TID, PRN, 2 refills, Still taking, not as prescribed: BID scheduled 0800 and 1600 Anoro Ellipta 62.5 mcg-25 mcg inhalation powder, 1 inh, Inhalation, Daily, 5 refills carvedilol 25 mg Tab, 25 mg= 1 tab(s), Oral, BID cyanocobalamin 1000 mcg/mL Inj, 1000 mcg= 1 mL, IntraMuscular, qMonth, 1 refills DuoNeb 2.5 mg-0.5 mg/3 mL Soln-Inh, 3 mL, Inhalation, QID nebulizer machine, See Instructions torsemide 20 mg Tab, See Instructions Home acetaminophen 325 mg Tab, 650 mg= 2 tab(s), Oral, q6hr, PRN amiodarone, 300 mg, Oral, Daily amoxicillin 500 mg Cap, 500 mg= 1 cap(s), Oral, BID aripiprazole 5 mg Tab, 10 mg= 2 tab(s), Oral, Daily aspirin 81 mg Oral EC Tab, 81 mg= 1 tab(s), Oral, Daily atorvastatin 80 mg Tab, 80 mg= 1 tab(s), Oral, Bedtime carbidopa-levodopa 25 mg-100 mg Tab, 1.5 tab(s), Oral, TID, Still taking, not as prescribed: QID 0800, 1200, 1600, 2000 Co-Q10 100 mg oral capsule, 100 mg= 1 cap(s), Oral, Daily Eliquis 5 mg oral tablet, 5 mg= 1 tab(s), Oral, BID enalapril 10 mg Tab, 10 mg= 1 tab(s), Oral, BID glimepiride 2 mg Tab, 2 mg= 1 tab(s), Oral, BID Humalog, See Instructions isosorbide mononitrate 60 mg ER Tab, 60 mg= 1 tab(s), Oral, Daily Lamictal 200 mg Tab, 200 mg= 1 tab(s), Oral, Daily levothyroxine 100 mcg (0.1 mg) Tab, 100 mcg= 1 tab(s), Oral, Daily levothyroxine 75 mcg (0.075 mg) Tab, 75 mcg= 1 tab(s), Oral, Daily magnesium oxide 400 mg Tab, 400 mg= 1 tab(s), Oral, Daily metformin 1000 mg Tab, 1000 mg= 1 tab(s), Oral, BID Multivitamins and Minerals, 1 tablet, Oral, Daily Nitro 0.4 mg Tab, 1 tablet, SubLingual, q5min, PRN NovoLIN N FlexPen 100 units/mL subcutaneous suspension, 20 unit(s), SubCutaneous, BID, Not taking: holding d/t hypoglycemia with jardiance per Dr. Baker Pantoprazole [address] Tab, 40 mg= 1 tab(s), Oral, Daily Pro-Air HFA CFC free 90 mcg/inh MDI, 2 puff(s), Inhalation, q4hr, PRN tamsulosin 0.4 mg Cap Vitamin D3 1000 intl units oral tablet, 25 mcg= 1 tab(s), Oral, Daily With When Contact Information Felipa Milligan Within 2 to 4 weeks [facility] [address] [place] [address]- Business (1) Additional Instructions: Call for followup appointment Mona Baker Within 5 to 7 days [address] [place] [address]- Business (1) Additional Instructions: Call for followup appointment Hypertension, Adult Acute Kidney Injury, Adult Extracted from: Title:APSO Note Author:JOSE BROUSSARD, Mbanefo Date: 72-year-old male with histor y of coronary artery disease, chronic systolic congestive heart failure status post AICD placement, Parkinson's disease, COPD, bipolar disorder, paroxysmal atrial fibrillation, hypertension, chronic kidney disease, chronic osteomyelitis 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 1. LAWANDA (acute kidney injury) (N17.9: Acute kidney failure, unspecified) Acute kidney injury on chronic kidney disease secondary to ATN from diuretics and ADWOA inhibitor. Present on admission. Resolved. Treated with IV fluid. Renal ultrasound negative. Ordered: Hospital Discharge Day > 30 Min 10028 2. Dyspnea (R06.00: Dyspnea, unspecified) Related to generalized weakness. Resolved. Ordered: Hospital Discharge Day > 30 Min 27979 3. Hypertension (I10: Essential (primary) hypertension) Blood pressure well-controlled. Continue on Coreg, isosorbide. Enalapril on hold.-May resume at discharge. Ordered: Hospital Discharge Day > 30 Min 38466 4. PAF (paroxysmal atrial fibrillation) (I48.0: Paroxysmal atrial fibrillation) Rate controlled. Continue on amiodarone, Coreg and Eliquis. Ordered: 5. Chronic systolic heart failure (I50.22: Chronic systolic (congestive) heart failure) Clinically stable. Continue on isosorbide. May resume Aldactone and Bumex at discharge. Ordered: Hospital Discharge Day > 30 Min 99487 6. CAD (coronary artery disease) (I25.10: Atherosclerotic heart disease of [place] coronary artery without angina pectoris) Status post CABG. Continue on aspirin, Lipitor and Coreg. 7. Parkinsonian syndrome (G20: Parkinson's disease) On Sinemet. 8. Bipolar I disorder, mild, current or most recent episode depressed, in full remission, with mixed features (F31.76: Bipolar disorder, in full remission, most recent episode depressed) On Lamictal. 9. Presence of combination internal cardiac defibrillator (ICD) and pacemaker (Z95.810: Presence of automatic (implantable) cardiac defibrillator) Supportive care. 10. Stage III chronic kidney disease (N18.30: Chronic kidney disease, stage 3 unspecified) Secondary to hypertensive and diabetic nephropathy. 11. Obese (E66.9: Obesity, unspecified) Recommend therapeutic lifestyle modification changes. 12. On deep vein thrombosis (DVT) prophylaxis (Z79.899: Other moth exterminator (current) drug therapy) Eliquis. Disposition: Home today. 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 1. LAWANDA (acute kidney injury) (N17.9: Acute kidney failure, unspecified) Acute kidney injury on chronic kidney disease secondary to ATN from diuretics and ADWOA I. Present on admission. Improving. Avoiding nephrotoxic drugs. Treating with IV fluid. Renal ultrasound pending. Ordered: [facility] Hospital Care/Day Moderate 35 Minutes 59141 2. Dyspnea (R06.00: Dyspnea, unspecified) Related to generalized weakness. Improved. Ordered: [facility] Hospital Care/Day Moderate 35 Minutes 42516 3. Hypertension (I10: Essential (primary) hypertension) Blood pressure well-controlled. Continue on Coreg, isosorbide. Enalapril on hold. Ordered: [facility] Hospital Care/Day Moderate 35 Minutes 21348 4. PAF (paroxysmal atrial fibrillation) (I48.0: Paroxysmal atrial fibrillation) Rate controlled. Continue on amiodarone, Coreg and Eliquis. Ordered: [facility] Hospital Care/Day Moderate 35 Minutes 15737 5. Chronic systolic heart failure (I50.22: Chronic systolic (congestive) heart failure) Clinically dry. Continue on isosorbide. Aldactone on hold. Bumex on hold. Ordered: [facility] Hospital Care/Day Moderate 35 Minutes 44577 6. CAD (coronary artery disease) (I25.10: Atherosclerotic heart disease of [place] coronary artery without angina pectoris) Status post CABG. Continue on aspirin, Lipitor and Coreg. 7. Parkinsonian syndrome (G20: Parkinson's disease) On Sinemet. 8. Bipolar I disorder, mild, current or most recent episode depressed, in full remission, with mixed features (F31.76: Bipolar disorder, in full remission, most recent episode depressed) On Lamictal. 9. Presence of combination internal cardiac defibrillator (ICD) and pacemaker (Z95.810: Presence of automatic (implantable) cardiac defibrillator) Chronic. Supportive care. 10. Stage III chronic kidney disease (N18.30: Chronic kidney disease, stage 3 unspecified) Secondary to hypertensive and diabetic nephropathy. 11. Obese (E66.9: Obesity, unspecified) Recommend therapeutic lifestyle modification changes. 12. On deep vein thrombosis (DVT) prophylaxis (Z79.899: Other moth exterminator (current) drug therapy) Eliquis. Disposition: Hopefully home in a.m after adequate hydration and improvement in renal functions. I discussed the diagnosis and plan of care with the patient at the bedside. Moderate level of MDM based on addressing above issues. This documentation was transcribed using voice recognition software. Several attempts were made to ensure accuracy. However inadvertent computerized quarry plant crusher operator errors may be present. Olaf Sinclair. Hospitalist. Orders: albuterol-ipratropium, 3 mL, Soln-Inh, Inhalation, QID PRN Shortness of breath or wheezing, Routine, Start date 08/28/23 8:21:00 EDT alprazolam, 0.25 mg = 1 tab(s), Tab, Oral, TID PRN Anxiety, Routine, Start date 08/28/23 8:21:00 EDT, 08/28/23 8:21:00 EDT amiodarone, 200 mg = 1 tab(s), Tab, Oral, Daily, Routine, Start date 08/28/23 9:00:00 EDT, 08/28/23 8:21:00 EDT amoxicillin, 500 mg = 1 cap(s), Cap, Oral, BID, Routine, Start date 08/28/23 9:00:00 EDT apixaban, 5 mg = 1 tab(s), Tab, Oral, BID, Routine, Start date 08/28/23 9:00:00 EDT, 08/28/23 8:22:00 EDT aripiprazole, 10 mg = 2 tab(s), Tab, Oral, Daily, Routine, Start date 08/28/23 9:00:00 EDT, 08/28/23 8:22:00 EDT aspirin, 81 mg = 1 tab(s), Tab-EC, Oral, Daily, Routine, Start date 08/28/23 9:00:00 EDT, 08/28/23 8:22:00 EDT atorvastatin, 80 mg = 2 tab(s), Tab, Oral, Bedtime, Routine, Start date 08/28/23 21:00:00 EDT, 08/28/23 8:22:00 EDT carbidopa-levodopa, 1.5 tab(s), Tab, Oral, QID, NOW, Start date 08/28/23 8:46:00 EDT carvedilol, 25 mg = 1 tab(s), Tab, Oral, BID, Routine, Start date 08/28/23 9:00:00 EDT, 08/28/23 8:23:00 EDT cholecalciferol, 25 mcg = 1 tab(s), Tab, Oral, Daily, Routine, Start date 08/28/23 9:00:00 EDT, 08/28/23 8:23:00 EDT glimepiride, 2 mg = 1 tab(s), Tab, Oral, BID, Routine, Start date 08/28/23 9:00:00 EDT, 08/28/23 8:24:00 EDT isosorbide mononitrate, 60 mg = 1 tab(s), Tab-ER, Oral, Daily, Routine, Start date 08/28/23 9:00:00 EDT, 08/28/23 8:24:00 EDT lamotrigine, 200 mg = 1 tab(s), Tab, Oral, Daily, Routine, Start date 08/28/23 9:00:00 EDT, 08/28/23 8:24:00 EDT levothyroxine, 100 mcg = 1 tab(s), Tab, Oral, Daily, Routine, Start date 08/29/23 6:30:00 EDT, 08/28/23 8:24:00 EDT levothyroxine, 75 mcg = 1 tab(s), Tab, Oral, Daily for 30 day(s), Stop date 09/28/23 6:29:00 EDT, Start date 08/29/23 6:30:00 EDT magnesium oxide, 400 mg = 1 tab(s), Tab, Oral, Daily, Routine, Start date 08/28/23 9:00:00 EDT, 08/28/23 8:24:00 EDT pantoprazole, 40 mg = 1 tab(s), Tab-DR, Oral, Daily, Routine, Start date 08/28/23 9:00:00 EDT Extracted from: Title:Admission H & P Author:Rosi Valencia MD Date:08/28/23 1. Dyspnea (R06.00: Dyspnea, unspecified) Subjective complaint. Possibly related to weakness. No hypoxia. Flu and COVID negative. BNP normal. EF 50-55%. On Eliquis so risk of PE low. 2. LAWANDA (acute kidney injury) (N17.9: Acute kidney failure, unspecified) Possibly related to dehydration. Creatinine 2.5 (baseline 1.3) Ordered NS at 100 cc/hr Bladder scan ordered. Home meds unknown. Hold any nephrotoxic meds including diuretics 3. Hypertension (I10: Essential (primary) hypertension) Normotensive 4. PAF (paroxysmal atrial fibrillation) (I48.0: Paroxysmal atrial fibrillation) Rate controlled Amiodarone, Eliquis 5. Chronic systolic heart failure (I50.22: Chronic systolic (congestive) heart failure) BNP normal. Last EF 50-55% Torsemide, Aldactone s/p ICD and pacer Follows with [facility] 6. CAD (coronary artery disease) (I25.10: Atherosclerotic heart disease of [place] coronary artery without angina pectoris) With hx bypass 7. Parkinsonian syndrome (G20: Parkinson's disease) Sinemet 8. Bipolar I disorder, mild, current or most recent episode depressed, in full remission, with mixed features (F31.76: Bipolar disorder, in full remission, most recent episode depressed) Continue home meds 9. Presence of combination internal cardiac defibrillator (ICD) and pacemaker (Z95.810: Presence of automatic (implantable) cardiac defibrillator) Addendum by Romel Valencia MD on August 28, 2023 04:55:50 EDT Bladder scan 665cc. Suazo ordered. Patient reports issues with retention in the past. Has needed a Suazo before. Extracted from: Title:ED Note Author:Srinivasa Courtney DO Date :08/27/23 LAWANDA (acute kidney injury) (N 17.9: Acute kidney failure, unspecified) Dyspnea (R06.00: Dyspnea, unspecified) Orders: Sodium Chloride 0.9% intravenous solution 500 mL, 500 mL, IV, 500 mL/hr, STAT, Start date 08/27/23 21:37:00 EDT, 1 hour(s), Total volume (mL): 500, 100.6 kg, 2.22, m2 B-Type Natriuretic Peptide Basic Metabolic Panel CBC w/ Auto Diff ECG 12 Lead Adult ECG 12 Lead Adult ED Cardiac Monitoring eGFR Extra SST Tube Influenza A&B Ag Magnesium Level Oxygen Saturation Oxygen Therapy PT & PTT Rapid COVID Antigen ([facility] [place] Saline Lock Insert Troponin 0 Hr. Troponin 3 Hr. Troponin 6 Hr. Troponin 9 Hr. XR Chest Single View Future Appointments Appointment Date:10/11/2023 02:15:00 PM Scheduled Provider:Armani Yarbrough DO Location:[facility]ONCOLOGY Appointment Type:ONC Office Visit 30 ([facility]) Appointment Date:10/22/2023 10:30:00 AM Scheduled Provider:Caterina BROUSSARD, Nicolás Chavez Location:[facility] Appointment Type:Pulmonary Follow Up ([facility]) Future Scheduled Tests Laboratory* Erythropoietin Level 07/13/23 * MARGUERITE and PE, Serum 07/13/23 * Methylmalonic Acid 07/13/23 * Free K+L Lt Chains,Qn,S 07/13/23 * CBC w/ Auto Diff 07/13/23 * CBC w/ Auto Diff 10/11/23 * Comprehensive Metabolic Panel 07/13/23 * Comprehensive Metabolic Panel 10/11/23 * Ferritin 07/13/23 * Ferritin 10/11/23 * Iron Level 07/13/23 * Iron Level 10/11/23 * Iron Percent Saturation 07/13/23 * Iron Percent Saturation 10/11/23 * Reticulocyte Count 07/13/23 * Transferrin 07/13/23 * Transferrin 10/11/23 Radiology* CT Chest w/o Contrast 04/09/23 * MRI Brain w/o Contrast 03/15/23 [facility]03-27-2024 Hospital Discharge instructions Patient Education 08/29/2023 11:38:59 Hypertension, Adult Hypertension, Adult High blood pressure (hypertension) is when the force of blood pumping through the arteries is too strong. The arteries are the blood vessels that carry blood from the heart throughout the body. Hypertension forces the heart to work harder to pump blood and may cause arteries to become narrow or stiff. Untreated or uncontrolled hypertension can lead to a heart attack, heart failure, a stroke, kidney disease, and other problems. A blood pressure reading consists of a higher number over a lower number. Ideally, your blood pressure should be below 120/80. The first ( top ) number is called the systolic pressure. It is a measure of the pressure in your arteries as your heart beats. The second ( bottom ) number is called the diastolic pressure. It is a measure of the pressure in your arteries as the heart relaxes. What are the causes? The exact cause of this condition is not known. There are some conditions that result in high bloodpressure. What increases the risk? Certain factors may make you more likely to develop high blood pressure. Some of these risk factorsare under your control, including: Smoking. Not getting enough exercise or physical activity. Being overweight. Having too much fat, sugar, calories, or salt (sodium) in your diet. Drinking too much alcohol. Other risk factors include: Having a personal history of heart disease, diabetes, high cholesterol, or kidney disease. Stress. Having a family history of high blood pressure and high cholesterol. Having obstructive sleep apnea. Age. The risk increases with age. What are the signs or symptoms? High blood pressure may not cause symptoms. Very high blood pressure (hypertensive crisis) may cause: Headache. Fast or irregular heartbeats (palpitations). Shortness of breath. Nosebleed. Nausea and vomiting. Vision changes. Severe chest pain, dizziness, and seizures. How is this diagnosed? This condition is diagnosed by measuring your blood pressure while you are seated, with your arm resting on a flat surface, your legs uncrossed, and your feet flat on the floor. The cuff of the bloodpressure monitor will be placed directly against the skin of your upper arm at the level of your heart. Blood pressure should be measured at least twice using the same arm. Certain conditions can cause a difference in blood pressure between your right and left arms. If you have a high blood pressure reading during one visit or you have normal blood pressure with other risk factors, you may be asked to: Return on a different day to have your blood pressure checked again. Monitor your blood pressure at home for 1 week or longer. If you are diagnosed with hypertension, you may have other blood or imaging tests to help your health care provider understand your overall risk for other conditions. How is this treated? This condition is treated by making healthy lifestyle changes, such as eating healthy foods, exercising more, and reducing your alcohol intake. You may be referred for counseling on a healthy diet and physical activity. Your health care provider may prescribe medicine if lifestyle changes are not enough to get your blood pressure under control and if: Your systolic blood pressure is above 130. Your diastolic blood pressure is above 80. Your personal target blood pressure may vary depending on your medical conditions, your age, and other factors. Follow these instructions at home: Eating and drinking Eat a diet that is high in fiber and potassium, and low in sodium, added sugar, and fat. An exampleof this eating plan is called the DASH diet. DASH stands for Dietary Approaches to Stop Hypertension. To eat this way: ?Eat plenty of fresh fruits and vegetables. Try to fill one half of your plate at each meal with fruits and vegetables. ?Eat whole grains, such as whole-wheat pasta, brown rice, or whole-grain bread. Fill about one fourth of your plate with whole grains. ?Eat or drink low-fat dairy products, such as skim milk or low-fat yogurt. ?Avoid fatty cuts of meat, processed or cured meats, and poultry with skin. Fill about one fourth of your plate with lean proteins, such as fish, chicken without skin, beans, eggs, or tofu. ?Avoid pre-made and processed foods. These tend to be higher in sodium, added sugar, and fat. Reduce your daily sodium intake. Many people with hypertension should eat less than 1,500 mg of sodium a day. Do not drink alcohol if: ?Your health care provider tells you not to drink. ?You are , may be , or are planning to become . If you drink alcohol: ?Limit how much you have to: ?0 1 drink a day for women. ?0 2 drinks a day for men. ?Know how much alcohol is in your drink. In the [place] one drink equals one 12 oz bottle of beer (355 mL), one 5 oz glass of wine (148 mL), or one 1 oz glass of hard liquor (44 mL). Lifestyle Work with your health care provider to maintain a healthy body weight or to lose weight. Ask what an ideal weight is for you. Get at least 30 minutes of exercise that causes your heart to beat faster (aerobic exercise) most days of the week. Activities may include walking, swimming, or biking. Include exercise to strengthen your muscles (resistance exercise), such as Pilates or lifting weights, as part of your weekly exercise routine. Try to do these types of exercises for 30 minutes at least 3 days a week. Do not use any products that contain nicotine or tobacco. These products include cigarettes, chewing tobacco, and vaping devices, such as e-cigarettes. If you need help quitting, ask your health careprovider. Monitor your blood pressure at home as told by your health care provider. Keep all follow-up visits. This is important. Medicines Take [id number] and prescription medicines only as told by your health care provider. Follow directions carefully. Blood pressure medicines must be taken as prescribed. Do not skip doses of blood pressure medicine. Doing this puts you at risk for problems and can makethe medicine less effective. Ask your health care provider about side effects or reactions to medicines that you should watch for. Contact a health care provider if you: Think you are having a reaction to a medicine you are taking. Have headaches that keep coming back (recurring). Feel dizzy. Have swelling in your ankles. Have trouble with your vision. Get help right away if you: Develop a severe headache or confusion. Have unusual weakness or numbness. Feel faint. Have severe pain in your chest or abdomen. Vomit repeatedly. Have trouble breathing. These symptoms may be an emergency. Get help right away. Call 911. Do not wait to see if the symptoms will go away. Do not drive yourself to the hospital. Summary Hypertension is when the force of blood pumping through your arteries is too strong. If this condition is not controlled, it may put you at risk for serious complications. Your personal target blood pressure may vary depending on your medical conditions, your age, and other factors. For most people, a normal blood pressure is less than 120/80. Hypertension is treated with lifestyle changes, medicines, or a combination of both. Lifestyle changes include losing weight, eating a healthy, low-sodium diet, exercising more, and limiting alcohol. This information is not intended to replace advice given to you by your health care provider. Make sure you discuss any questions you have with your health care provider. Document Revised: 03/28/2022 Document Reviewed: 03/28/2022 [employer] Patient Education 2022 [employer]. 08/29/2023 11:38:50 Acute Kidney Injury, Adult Acute Kidney Injury, Adult Acute kidney injury is a sudden worsening of kidney function. The kidneys are a pair of organs thatdo many important jobs in the body, including: Make urine. Make hormones. Keep the right amount of fluids and chemicals in the body. This condition ranges from mild to severe. Over time, it may develop into long- lasting (chronic) kidney disease. Finding it and treating it early may keep it from becoming a long-lasting disease. What are the causes? Common causes of this condition include: A problem with blood flow to the kidneys. This may be caused by: ?Low blood pressure or shock. ?Blood loss. ?Heart and blood vessel disease. ?Severe abbott. ?Liver disease. Direct damage to the kidneys. This may be caused by: ?Certain medicines. ?A kidney infection. ?Poisoning. ?Being around or in contact with toxic substances. ?A wound from surgery. ?A hard, direct hit to the kidney area. A sudden block in urine flow. This may be caused by: ?Cancer. ?Kidney stones. ?An enlarged prostate. What increases the risk? Being older than age 65. Being female. Being in the hospital. This is especially true if you are very sick. Having certain conditions, such as: ?Long-lasting kidney or liver disease. ?Diabetes. ?Heart disease and heart failure. ?Lung disease. What are the signs or symptoms? This condition may not cause symptoms until it becomes severe. Symptoms can include: Feeling very tired or having trouble staying awake. Nausea or vomiting. Swelling (edema) of the face, legs, ankles, or feet. Pain in the belly or pain along the side of your stomach (flank). Urine changes, such as: ?Making little or no urine. ?Passing urine with a weak flow. Muscle twitches and cramps, most often in the legs. Confusion or trouble concentrating. Not feeling the urge to eat. Fever. How is this diagnosed? This condition may be diagnosed based on: Your symptoms. Your medical history. A physical exam. You may have other tests, such as: Blood tests. Urine tests. Imaging tests. A kidney biopsy. This involves removing a sample of kidney tissue to be looked at under a microscope. How is this treated? Treatment depends on the cause and how severe the condition is. In mild cases, treatment may not beneeded. The kidneys may heal on their own. In severe cases, treatment may include: Treating the cause of the kidney injury. This may mean that you have to change your medicines or the doses you take. Getting fluids through an IV tube. Having a small, thin tube (catheter) put in. This tube will drain urine and prevent blockages. Trying to keep problems from starting. This may mean not using certain medicines or not having tests done that could cause more kidney injury. In some cases, these treatments are also needed: Dialysis or continuous renal replacement therapy (CRRT). This treatment uses a machine to do the job of the kidneys. Surgery. This may be done to repair a damaged kidney. It could also be done to remove a blockage inthe urinary tract. Follow these instructions at home: Medicines Take [id number] and prescription medicines only as told by your health care provider. Do not take any new medicines unless approved by your health care provider. Many medicines can makekidney damage worse. Do not take any vitamin or mineral supplements unless approved by your health care provider. Some of these can make kidney damage worse. Lifestyle Make changes to your diet as told by your health care provider. You may need to eat less protein. Get to, and stay at, a healthy weight. If you need help, ask your health care provider. Start or keep up an exercise plan. Exercise at least 30 minutes a day, 5 days a week. Do not smoke or use any products that contain nicotine or tobacco. If you need help quitting, ask your health care provider. General instructions Keep track of your blood pressure. Tell your health care provider if you notice any changes. Keep your vaccines up to date. Ask your health care provider which vaccines you need. Keep all follow-up visits. Where to find more information [employer]: www.aakp.org National Kidney Foundation: www.kidney.org [employer]: www.akfinc.org Medical Education [place]: ?[employer]: www.lifeoptions.org ?[employer]: www.kidneyschool.org Contact a health care provider if: Your symptoms get worse. You have new symptoms such as: ?Headaches. ?Skin that is darker or canvas goods fabricator than normal. ?Easy bruising. ?Itchiness. ?Hiccups. ?Lack of menstrual periods. You have a fever. Get help right away if: You have symptoms of worsening kidney disease, such as: ?Chest pain. ?Shortness of breath. ?Seizures. ?Confusion or trouble thinking. ?Belly or back pain. You have pain or bleeding when you pass urine. You are making little or no urine. These symptoms may be an emergency. Get help right away. Call 911. Do not wait to see if the symptoms will go away. Do not drive yourself to the hospital. Summary Acute kidney injury is a sudden worsening of kidney function. This condition can be caused by problems with blood flow to the kidneys, damage to the kidneys, or a sudden block in urine flow. This condition may not cause symptoms until it becomes severe. Acute kidney injury can be diagnosed with blood tests, urine tests, imaging tests, and other tests. Treatment depends on the cause and how severe the condition is. This information is not intended to replace advice given to you by your health care provider. Make sure you discuss any questions you have with your health care provider. Document Revised: 08/28/2022 Document Reviewed: 03/30/2020 [employer] Patient Education 2022 [employer]. Follow Up Care 08/27/2023 20:36:44 With:Felipa Milligan Address: [facility] [address] [place] [address]- Business (1) When:2 to 4 weeks Comments:Call for followup appointment With:Mona Baker Address: [address] [place] [address]- Business (1) When:5 to 7 days Comments:Call for followup appointment [facility]03-26-2024 NoteFisher [facility] Of [facility] Medical CenterComment on above:Result Comment: Electronically Signed By: Erik BROUSSARD, Rosi\.br\Date and Time Signed: 08/28/23 04:56 [id number] Note [id number] [facility] Medical Center [facility]23 Hospital Discharge instructions Patient Education 07/17/2023 09:56:47 EU - Cystoscopy Discharge Instructions (CUSTOM) Cystoscopy Voiding after the procedure: there may be some pain, burning, urgency, frequency and blood tinged urine following the procedure. These symptoms usually resolve within 2-5 days. Drink the amount of fluid it takes to keep the urine pink to yellow or clear in color. Drinking enough water and fluids will help to ease any discomfort after your procedure. If you are having problems that seem out of the ordinary, please call. If unable to contact your physician and you feel it is an emergency, go to the nearest emergency room or call 911 Diet you may resume your normal diet. Activity you may resume your normal activities Call if you have a fever over 100 degrees. Follow Up Care 06/28/2023 13:30:26 With:Andi WARE Address: [facility] [address], [place] [address]- Business (1) When: Unknown Comments:Office will call to schedule follow up [facility]02-12-2024 Evaluation note* Encounter Date Diagnosis Assessment Notes Treatment Notes Treatment Clinical Notes Jul, Osteomyelitis of ankle and foot (ICD-10 - M86.9) Foot doing great with regard to concern of infection. Awating brace. Refills given. Jul, Charcot foot due to diabetes mellitus (ICD-10 - E11.610) Jul, Chronic antibiotic suppression (ICD-10 - Z79.2) Jul, Diarrhea of presumed infectious origin (ICD-10 - R19.7) Given lack of # of BM as well as other symptoms not sure if C.diff is reasonable given that he has been on this amoxicillin for quite some time. With the change of shoe coverer thought worthwhile checking. Told patient to hold off on imodium while this test is going to be done. Visto Other [id number] Hospital Discharge instructions Follow Up Care 04/12/2023 09:57:26 With:Armani Yarbrough DO, ONC Address: [facility] [address] [place] [phone]- [phone] Fax Business (1) When: Unknown Comments:plan iv iron. 2 or 3 doses.f/u in 1 year.epo cbc, cmp iron studies every three months. [facility]11-01-2023 History of Present illness Narrative* Felipa Milligan MD - 04/04/2023 11:30 AM EDT Subjective José Luis Gil is a 72 y.o. male Chief Complaint Hospital Follow-up HPI Patient is in the office with his for follow-up for the problems noted below. He was in the hospital last month with dyspnea. Also had a stroke and was seen by neurology. He is scheduled to havebrain MRI in the near future and follow-up with neurology. He still have mild residual deficit in the left upper/lower extremity. His Parkinson's is stable and he follows with neurology for that. He has no symptoms of heart failure at the present time and no lower extremity edema or pulmonary congestion his cardiac and pulm examinations were normal. Medical therapy was reviewed with him. His diabetes is under very good control on his present medical therapy. When he was in the hospital last month ejection fraction was measured at 50-55% ASSESSMENT AND PLAN: 1. Severe coronary artery disease, status post bypass surgery in the remote past, cardiac catheterization May 2021 revealed patent ZAVALA and 2 other vein grafts, the last graft was occluded but there was excellent collaterals. Medical therapy was recommended. We will continue aggressive risk factor management for CAD continue nitrates 2. ischemic cardiomyopathy stage C, functional class II NYHA for CHF, ejection fraction March 2023 was 50-55%, current medical therapy will be left unchanged 4. AICD in place for primary prevention purposes, being monitored in the [facility]. 5. Diabetes, managed by PCP. A1c is on target 6. Hyperlipidemia, on medical therapy, under control. 7. Hypothyroidism, on replacement therapy. Under control 8. Sleep apnea on CPAP machine. 9. Right upper extremity tremor evaluated by neurology was felt not to be Parkinson's and may be related to his bipolar disorder medication which has been weaned off gradually 10. History of ventricular tachycardia with no recurrent events, currently on amiodarone therapy 11. Paroxysmal atrial fibrillation, currently his EKG showed atrial pacemaker rhythm he is on amiodarone. We will continue Eliquis and amiodarone therapy. We will continue amiodarone surveillance testing 12. CVA occurred recently with mild left-sided residual deficit followed by neurology 13. 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 Class I obesity, patient was encouraged to reduce caloric consumption especially from snacks 15. High risk medication with Eliquis and amiodarone both have been monitored closely. 16. Parkinson's disease. Presently with ongoing tremor in the upper and lower extremities followed by PCP Review of Systems All other systems reviewed and are negative. Visit Vitals BP 110/62 (BP Location: Left arm, Patient Position: Sitting) Pulse 60 Ht 1.778 m (5' 10 ) Wt 100 kg (221 lb) BMI 31.71 kg/m Smoking Status Former BSA 2.22 m EKG done in office today Objective Physical Exam Constitutional: Appearance: Normal appearance. He is normal weight. HENT: Nose: Nose normal. Neck: Vascular: No carotid bruit. Cardiovascular: Rate and Rhythm: Normal rate. Pulses: Normal pulses. Heart sounds: Normal heart sounds. Pulmonary: Effort: Pulmonary effort is normal. Abdominal: General: Bowel sounds are normal. Palpations: Abdomen is soft. Genitourinary: Rectum: Normal. Musculoskeletal: General: Normal range of motion. Cervical back: Normal range of motion. Right lower leg: No edema. Left lower leg: No edema. Skin: General: Skin is warm and dry. Neurological: General: No focal deficit present. Mental Status: He is alert. Psychiatric: Mood and Affect: Mood normal. Behavior: Behavior normal. Thought Content: Thought content normal. Judgment: Judgment normal. Current Medications Current Outpatient Medications: acetaminophen (Tylenol) 325 mg tablet, Take by mouth every 6 hours if needed for mild pain (1 - 3)., Disp: , Rfl: albuterol 90 mcg/actuation inhaler, Inhale 2 puffs every 4 hours if needed., Disp: , Rfl: ALPRAZolam (Xanax) 0.25 mg tablet, Take 1 tablet (0.25 mg) by mouth once daily., Disp: , Rfl: amiodarone (Pacerone) 200 mg tablet, Take 1.5 tablets (300 mg) by mouth once daily., Disp: 135 tablet, Rfl: 1 amLODIPine (Norvasc) 5 mg tablet, Take 1 tablet (5 mg) by mouth once daily., Disp: 90 tablet, Rfl: 3 apixaban (Eliquis) 5 mg tablet, Take 1 tablet (5 mg) by mouth 2 times a day., Disp: 180 tablet, Rfl: 3 aspirin 81 mg EC tablet, Take 1 tablet (81 mg) by mouth once daily., Disp: , Rfl: atorvastatin (Lipitor) 80 mg tablet, Take 1 tablet (80 mg) by mouth once daily at bedtime., Disp: 90 tablet, Rfl: 3 carbidopa-levodopa (Sinemet) 25-100 mg tablet, Take 1.5 tablets by mouth 4 times a day., Disp: , Rfl: carvedilol (Coreg) 25 mg tablet, Take 1 tablet (25 mg) by mouth 2 times a day., Disp: 180 tablet, Rfl: 3 cholecalciferol (Vitamin D-3) 25 MCG (1000 UT) capsule, Take 1 capsule (25 mcg) by mouth., Disp: , Rfl: coenzyme Q-10 100 mg capsule, Take 1 capsule (100 mg) by mouth once daily., Disp: , Rfl: empagliflozin (Jardiance) 10 mg, Take 1 tablet (10 mg) by mouth once daily., Disp: , Rfl: enalapril (Vasotec) 10 mg tablet, Take 1 tablet (10 mg) by mouth 2 times a day., Disp: 180 tablet, Rfl: 3 glimepiride (Amaryl) 2 mg tablet, Take 1 tablet (2 mg) by mouth 2 times a day., Disp: , Rfl: insulin lispro (HumaLOG U-100 Insulin) 100 unit/mL injection, Inject under the skin., Disp: , Rfl: insulin NPH, Isophane, (NovoLIN N NPH U-100 Insulin) 100 unit/mL injection, Inject under the skin.,Disp: , Rfl: isosorbide mononitrate ER (Imdur) 60 mg 24 hr tablet, Take 1 tablet (60 mg) by mouth once daily., Disp: 90 tablet, Rfl: 3 lamoTRIgine (LaMICtal) 200 mg tablet, Take 1 tablet (200 mg) by mouth once daily., Disp: , Rfl: magnesium oxide (Mag-Ox) 400 mg (241.3 mg magnesium) tablet, Take 1 tablet (400 mg) by mouth once daily., Disp: , Rfl: metFORMIN (Glucophage) 1,000 mg tablet, Take 1 tablet (1,000 mg) by mouth 2 times a day with meals., Disp: , Rfl: nitroglycerin (Nitrostat) 0.4 mg SL tablet, Place 1 tablet (0.4 mg) under the tongue every [address] 1 TABLET UNDER THE TONGUE EVERY 5 MINUTES FOR UP TO 3 DOSES NEEDED FOR CHEST PAIN.CALL 911 IF PAIN PERSISTS., Disp: , Rfl: pantoprazole (ProtoNix) 40 mg EC tablet, Take 1 tablet (40 mg) by mouth once daily., Disp: 90 tablet, Rfl: 3 pediatric multivitamin (Gummi Bear Multivitamin) tablet,chewable, Chew 2 tablets once daily., Disp:, Rfl: predniSONE (Deltasone) 20 mg tablet, Take 1 tablet (20 mg) by mouth once daily., Disp: , Rfl: spironolactone (Aldactone) 25 mg tablet, Take 1 tablet (25 mg) by mouth once daily., Disp: , Rfl: tamsulosin (Flomax) 0.4 mg 24 hr capsule, Take 1 capsule (0.4 mg) by mouth once daily., Disp: , Rfl: torsemide (Demadex) 20 mg tablet, Take 0.5 mg by mouth once daily., Disp: , Rfl: ARIPiprazole (Abilify) 10 mg disintegrating tablet, Take 1 tablet (10 mg) by mouth once daily., Disp: , Rfl: ascorbic acid, vitamin C, 500 mg capsule, Take 1 capsule by mouth 2 times a day., Disp: , Rfl: levothyroxine (Synthroid, Levoxyl) 150 mcg tablet, Take 1 tablet (150 mcg) by mouth once daily in the morning. Take before meals., Disp: , Rfl: Assessment/Plan 1. Atherosclerosis of coronary artery bypass graft of assiniboine and sioux heart without angina pectoris Follow Up In Cardiology 2. S/P PTCA (percutaneous transluminal coronary angioplasty) 3. Ventricular tachycardia (paroxysmal) (CMS/HCC) 4. AICD (automatic cardioverter/defibrillator) present 5. Hypertension, essential, benign 6. Ischemic cardiomyopathy 7. Paroxysmal atrial fibrillation (CMS/HCC) 8. Mixed hyperlipidemia 9. Stage 3b chronic kidney disease (CMS/HCC) 10. S/P CABG (coronary artery bypass graft) 11. Transient neurological symptoms 12. Obstructive sleep apnea, adult [facility] Work Phone: [phone]) 682-487111-01-2023 Instructions* Patient Instructions* Maria Del Carmen Campbell LPN - 04/04/2023 11:30 AM EDT Please bring all medicines, vitamins, and herbal supplements with you when you come to the office. Prescriptions will not be filled unless you are compliant with your follow up appointments or have a follow up appointment scheduled as per instruction of your physician. Refills should be requested at the time of your visit. EKG done in office today Follow up 6 months [facility] Work Phone: 1([phone]) 252-350810-27-2023 Hospital Discharge instructions Follow Up Care 03/30/2023 14:59:20 With:Armani Yarbrough Address: [facility] [address] [place], [place] [address] [address]- [phone] Fax Business (1) When: Unknown Comments:iron studies epo. retic count, spep sflc, simmunfIXATION, mma in 3 months. f/u in 6 months cbc, cmp, iron studies prior . start iron every other day orally. b12 shot monthly, can be at home. [facility]10-25-2023 Evaluation note* Encounter Date Diagnosis Assessment Notes Treatment Notes Treatment Clinical Notes Mar, Osteomyelitis of ankle and foot (ICD-10 - M86.9) Visto Other [id number] History of Present illness Narrative* Jackie Mcginnis MD - 03/26/2023 1:30 PM EDT Subjective José Luis Gil is a right handed 72 y.o. year old male who presents with Parkinson's Disease. Patient is accompanied by: child daughter Visit type: follow up visit HPI Since last visit he was admitted to [facility] for CHF, during that time had an episode of transient L side of weakness/numbness. He has CT scan as well as CTA and carotid ultrasounds etc. He is due to have an MRI of the brain. He is on Asa 81 mg daily. He has now been seeing a Statistical Assistant as well. Prior hx: R handed male w bipolar disorder (on Abilify x12 years). He had tremor >10 years, and was previously diagnosed with Parkinson's disease vs drug-induced parkinsonism by Dr. Zac Martinez in 2021 and was started on carbidopa/levodopa. DaTscan in August was read as negative for parkinsonian syn drome ( He is accompanied by his daughter Stephanie who is an RN) PD medication regimen: Carbidopa/levodopa 25-100 mg to 1.5 tabs 4 times daily (7 am - 11 am - 3 pm - 7 pm) Onset 30 minutes. Wears off after about 5 hours. Has worsening tremor when he wears off, he does not always notice wearing off prior to his next dose. No nausea, or dyskinesias. Some orthostatic lightheadedness, stands slowly up slowly and does okay. VH - ? Has seen his daughter out by sangeeta, when she was not even home. This has occurred once, and then one episode of waking up from a nap - thought had pills ready - not sure if he was dreaming. Always happens around the time he has been sleeping. Motor symptoms review: Denies slowness of movements and states he feels his reaction time is still good. He states he was a little slow straight after the hospitalization. Denies muscle stiffness. Difficulty with balance in the morning.. Uses a walker and sometimes also a cane. No falls. Does not exercise other than walking. Non motor symptoms: Denies hyposmia/anosmia. No dysphagia or drooling. Denies hypophonia. No constipation or urinary symptoms (since bladder tumors removed in May 2022). Sleep is good. Sleeps in a recliner as he is able to breathe better. Uses O2 at nighttime as he used to remove CPAP during his sleep. Denies RBD symptoms. Daughter says he talks in his sleep and sometimes moves his upper body. Mood is fairly good. He states his mood has not worsened despite lowering of Abilify. Diagnosed with dementia within the last year, denies any changes. Saw geriatrics this year - diagnosed with moderate dementia. B12 was 279 (low) in January. TSH high at 30.12 in December 2021. Previous PD meds: -Trihexiphenidyl: stopped due to side effect of urinary retention Review of Systems All other system have been reviewed and are negative for complaint. Objective Neurological Exam MDS UPDRS 1st Score: Motor Examination Is the patient on medication for treating the symptoms of Parkinson's Disease?: Yes Patients receiving medication for treating the symptoms of Parkinson's Disease, baldomero the patient's clinical state.: On Is the patient on Levodopa?: Yes Speech: 0 Facial Expression: 1 Rigidty Neck: 1 Rigidty RUE: 2 Rigidity - LUE: 1 Rigidity RLE: 0 Rigidity LLE: 0 Finger Tapping Right Hand: 1 Finger Tapping Left Hand: 2 Hand Movements- Right Hand: 1 Hand Movements- Left Hand: 0 Pronatiaon-Supination Movments - Right Hand: 0 Pronatiaon-Supination Movments Left Hand: 0 Toe Tapping Right Foot: 2 Toe Tapping - Left Foot: 3 Leg Agility - Right Le Leg Agility - Left le Arising from Chair: 2 Gait: 3 Freezing of Gait: 0 Postural Stability: 2 Posture: 2 Global Spontanteity of Movment ( Body Bradykinesia): 1 Postural Tremor - Right Hand: 0 Postural Tremor - Left hand: 0 Kinetic Tremor - Right hand: 0 Kinetic Tremor - Left hand: 0 Rest Tremor Amplitude - RUE: 2 Rest Tremor Amplitude - LUE: 0 Rest Tremor Amplitude - RLE: 1 Rest Tremor Amplitude - LLE: 0 Rest Tremor Amplitude - Lip/Jaw: 0 Constancy of Rest Tremor: 3 MDS UPDRS Total Score: 35 Were dyskinesias (chorea or dystonia) present during examination?: No Hoen and Yahr Stage: 3 Assessment/Plan Diagnoses and all orders for this visit: Parkinsonism, unspecified Parkinsonism type Cognitive impairment 72 year old right-handed male with a history of atrial fibrillation s/p AICD, T2DM, HTN, HLD, hypothyroidism, and bipolar disorder (on Abilify x12 years), who presents for follow up of parkinsonism. Though DaTscan was read as negative, possibly less uptake in the left side. He has responded to carbidopa/levodopa. Drug induced parkinsonism clearly remains part of this, but could also be underlyingPD. . Less likely DLB as he denies VH (though possibly treated with Abilify). He continues to work with his psychiatrist Dr. Massey. Since last visit he has had an episode of L sided weakness, w residual L sided numbness. CT scan is negative, as is main stroke work up , has out patient MRI brain pending. His parkinsonism appears stable. Has had cognitive testing since last visit, so the family will bring these, in. As per daughter, the testing diagnosed him w moderate dementia. Can consider Cholinesterase inhibitor once have reviewed outside records. Plan: 1 . carbidopa/levodopa 25-100 mg to 1.5 tabs 4 times daily (7 am - 11 am - 3 pm - 7 pm) 2. Try to exercise as much as you can 3. Please send records from the memory test/switchboard and control room operator. 4. RTC in 6 months documented in this [facility] Work Phone: [phone]) 521-839710-23-2023 Instructions* Patient Instructions* Jackie Mcginnis MD - 03/26/2023 1:30 PM EDT It was nice to see you today. Plan: Continue current dose of carbidopa/levodopa 25/100 - one and half tab 4 times a day Try to exercise as much as you can Please send records from the memory test/switchboard and control room operator. RTC in 6 months documented in this [facility] Work Phone: 1(306) 707-106110-23-2023 NoteFishMt. Washington Pediatric HospitalComment on above:Result Comment: Electronically Signed By: Angelina London\.br\Date and Time Signed: 03/19/23 19:54 EDT\.br\Electronically Co-Signed By: Delvin SANTANA MD\.br\Date and Time Co-Signed: 03/26/23 07:00 [id number] History of Present illness Narrative* MONO Donaldson - 03/20/2023 8:45 AM EDT Interval history since last appointment: Any visits to primary care provider? Yes Any visits to the emergency department/hospital? Yes, was in hospital for 4 days Any medication changes? Yes- torsemide increase to 40 mg, added spirolactimone 25 mg, added aspirin, added B12 Any falls? No Family present: patient, , daughter Stephanie Educational Materials reviewed/provided at visit: Memory/Cognitive Ability Alzheimer's Association info/hotline 10 Tips to Keeping Independent Memory Tips (mild) 5Ms Dealing with Dementia 10 Ways to Love Your Brain Exercise/Activities Exercise Age Page Communication/Behaviors Communication - All Stages Communication Tips Redirecting Community Programs Papa Pals Diet Healthy Nutrition for Older Adults - [facility] Injury Prevention/Home Safety Summ Home Safety Checklist [facility] Mobility for Adults Falls Prevention Conversation Guide for Caregivers Medications Medication Safety/Dispensers Sleep Getting a Good Night's Sleep ([facility]) Sleep Hygiene Personal Care Personal Care Tips Bathing Tips * Keisha Brambila APRN - ABBY - 03/20/2023 8:45 AM EDT [facility] [address] [place] [address] Dept: [phone] Dept Loc: [phone] Visit type: [facility] Family Summary Conference Patient was seen today via Telehealth by agreement and consent. I used the following Telehealth technology: Audio and video capabilities. Patient location: Patient Location: Home. This patient encounter is appropriate and reasonable under the circumstances: transportation issues . The patient has been advised of the potential risks and limitations of this mode of treatment (including but not limited to the absence of in-person examination) and has agreed to be treated in a remote fashion in spite of them. Any and all of the patient's/patient's family's questions on this issue have been answered and I have made no promises or guarantees to the patient. The patient has also been advised tocontact this office for worsening conditions or problems, and seek emergency medical treatment and/or call 911 if the patient deems either necessary. The [facility] If the patient is a minor, permission has been obtained by the parent or guardian for the patient to receive medical care at this visit. Reason for Visit: Memory Loss Visit Date: 03/20/2023 Assessment and Plan 1. Mild dementia without behavioral disturbance, psychotic disturbance, mood disturbance, or anxiety, unspecified dementia type (HCC) 2. B12 deficiency 3. Acquired hypothyroidism - levothyroxine (Synthroid, Levoxyl) 175 MCG tablet; Take 1 tablet (175 mcg) by mouth every morning(before breakfast)., Starting Sun03/20/2023, Normal We reviewed the diagnosis of mild stage unspecified dementia, course, prognosis and treatment. Discussed the option of medication. Opted to start nothing at this time. Can discuss starting memory medicine in 3 months if all other medications remain stable. Started on B12 supplement for low B12 level on labs. Continue current dose. Increased Synthroid dose to 175 mcg daily (was taking 150 mcg daily prior) due to elevated TSH on labs. Will repeat TSH at next visit in 3 months. Reviewed management of the following behavioral symptoms: agitation, anxiety, depression, indifference/social withdrawal, and poor insight into own memory loss/functional deficits Discussed safety management: increased supervision Reviewed the importance of caregiver stress and support through following means: Alzheimer's Association support and Papa pals Reviewed advanced care plan. Already has POAs completed Educational information and handouts on the above was provided to the caregiver. Follow up in about 3 months (around 06/20/2023) for virtual visit. Cristo Sanchezellen Faulkner is a 72 y.o. male who returns today for a Family Summary Conference to review the care plan based on the comprehensive geriatric assessment completed at the last appointment. Initially seen in 02/2023 for memory loss x 3-4 years, previous dementia diagnosis, [place] 19 (MIS 10), CDT 5, PHQ 1. Concern for mild dementia, ? LB component to memory issues due to fluctuating cognition and Parkinson's symptoms. Pt interested in decreasing medications if able. ? Parkinson's symptoms due to LBD vs Parkinson's disease vs long-term use of antipsychotics 2/[address] ordered to complete work-up. Patient update: Pt is present in his home with his and daughter. Has upcoming appointments with both the movement specialist and psychiatrist. Started B12 supplement. Pharmacy didn't receive Synthroid increase. Had hospitalization recently. Pt was more short of breath and having issues walking. Admitted for CHF exacerbation, meds changed- Torsemide increased and added Spironolactone. Pt may have had a stroke while hospitalized although CT head didn't show anything. Started on baby Aspirin.Has outpt MRI pending for suspected stroke. Allergies Allergen Reactions Piperacillin-Tazobactam In Dex Current Outpatient Medications Medication Sig Dispense Refill albuterol 108 (90 Base) MCG/ACT inhaler Inhale 2 puffs every 6 hours as needed for wheezing. ALPRAZolam (Xanax) 0.25 MG tablet Take 0.25 mg by mouth daily. amiodarone (Pacerone) 100 MG tablet Take 300 mg by mouth daily. amLODIPine (Norvasc) 5 MG tablet Take 5 mg by mouth daily. amoxicillin (Amoxil) 500 MG tablet Take 500 mg by mouth daily. apixaban (Eliquis) 5 MG tablet Take 5 mg by mouth 2 times daily. ARIPiprazole (Abilify) 7.5 MG split tablet Take 7 mg by mouth daily. aspirin 81 MG EC tablet Take 81 mg by mouth daily. atorvastatin (Lipitor) 80 MG tablet Take 80 mg by mouth daily. carbidopa-levodopa (Sinemet) 25-100 MG tablet Take 1.5 tablets by mouth in the morning and 1.5 tablets at noon and 1.5 tablets in the evening and 1.5 tablets before bedtime. carvedilol (Coreg) 25 MG tablet Take 25 mg by mouth in the morning and 25 mg in the evening. Take with meals. Coenzyme T04-Igjepfu E (CoQ10 ST-100) 100-100 MG-UNIT capsule Take 100 mg by mouth daily. cyanocobalamin (Vitamin B-12) 1000 MCG tablet Take 1,000 mcg by mouth daily. enalapril (Vasotec) 10 MG tablet Take 10 mg by mouth in the morning and 10 mg in the evening. Flaxseed, Linseed, (Flaxseed Oil) 1000 MG capsule Take 1,000 mg by mouth daily. fluticasone (Flonase) 50 MCG/ACT nasal spray Administer 2 sprays into each nostril 2 times daily. Shake gently. Before first use, prime pump. After use, clean tip and replace cap. glimepiride (Amaryl) 2 MG tablet Take 2 mg by mouth in the morning and 2 mg in the evening. Insulin Lispro (HUMALOG SC) Inject under the skin. insulin NPH, Isophane, (NovoLIN N) 100 UNIT/ML injection Inject 10 Units under the skin in the morning and 10 Units in the evening. Inject before meals. Isosorbide Mononitrate (IMDUR PO) Take 60 mg by mouth daily. lamoTRIgine (LaMICtal) 200 MG tablet Take 200 mg by mouth daily. levothyroxine (Synthroid, Levoxyl) 175 MCG tablet Take 1 tablet (175 mcg) by mouth every morning (before breakfast). 90 tablet 1 loperamide (Imodium A-D) 2 MG tablet Take 2 mg by mouth as needed for diarrhea. magnesium oxide (Mag-Ox) 400 mg tablet 400 mg daily. metFORMIN (Glucophage) 1000 MG tablet Take 1,000 mg by mouth in the morning and 1,000 mg in the evening. Take with meals. Multiple Vitamins-Minerals (multivitamin with minerals) tablet Take 1 tablet by mouth daily. nitroglycerin (Nitrostat) 0.[address] 0.3 mg under the tongue every 5 minutes as needed for chest pain. pantoprazole (ProtoNix) 40 MG EC tablet Take 40 mg by mouth every morning (before breakfast). Do not crush, chew, or split. spironolactone (Aldactone) 25 MG tablet Take 25 mg by mouth daily. tamsulosin (Flomax) 0.4 MG 24 hr capsule Take 0.4 mg by mouth daily. torsemide (Demadex) 20 MG tablet Take 40 mg by mouth daily. umeclidinium-vilanterol (Anoro Ellipta) 62.5-25 MCG/ACT aerosol powder Inhale 1 puff Nightly. venlafaxine (Effexor) 12.5 MG split tablet Take 18.75 mg by mouth in the morning and 18.75 mg in the evening. Take with meals. VITAMIN D, CHOLECALCIFEROL, PO Take by mouth. Unknown dose No current facility-administered medications for this visit. Past Medical History: Diagnosis Date LAWANDA (acute kidney injury) ([facility]) Allergies Anemia Anxiety Arthritis Asthma Atrial fibrillation and flutter (HCC) Bipolar 1 disorder (HCC) Bladder cancer (HCC) CHF (congestive heart failure) (HCC) COPD (chronic obstructive pulmonary disease) (HCC) Coronary artery disease Dementia (HCC) Diabetes mellitus (HCC) Diarrhea GERD (gastroesophageal reflux disease) Hyperlipemia Hypertension Hypothyroidism Old myocardial infarction Osteoarthritis Osteomyelitis (HCC) Parkinson's disease Urinary retention Social History Tobacco Use Smoking status: Former Types: Cigarettes Smokeless tobacco: Never Substance Use Topics Alcohol use: Not on file Past Surgical History: Procedure Laterality Date BLADDER SURGERY CATARACT EXTRACTION Bilateral COLONOSCOPY CORONARY ARTERY BYPASS GRAFT CORONARY STENT PLACEMENT EGD (HISTORICAL) FOOT SURGERY Left 2020 triple arthrodesis and fusion/reconstruction to repair Charcot foot I&D PERIRECTAL ABSCESS (HISTORICAL) Left left foot abscess fron bone spur removal INSERT / REPLACE / REMOVE PACEMAKER replaced in 2008 and 2020 MASTOIDECTOMY (HISTORICAL) No family history on file. No family status information on file. Objective No physical exam performed Discussion only Data Reviewed and Summarized Problems and recommendations from initial assessment reviewed, Medications reviewed, Recent laboratory tests reviewed, and Recent diagnostic imaging reviewed Labs: No results found for: WBC , HGB , HCT , MCV , PLT No results found for: NA , K , CL , CO2 , BUN , CREATININE , GLUCOSE , CALCIUM , PROT , BILITOT , ALKPHOS , AST , ALT , LABGLOM , AGRATIO , GLOB No results found for: TSH No results found for: FOLATE No results found for: [id number] No results found for: RPR Imaging: head CT reviewed Testing: I reviewed the [place] CognitiveAssessment from the initial assessment with the patient and family. Total score was 19 out of 30. I spent total time of 39 minutes face to face with the patient and/or family discussing the diagnosis and importance of compliance with the treatment plan as well as documenting on the day of the visit. In addition, that total time includes the following: -Reviewing previous notes, -Reviewing labs, -Reviewing previous cognitive tests, -Obtaining and/or reviewing separately obtained history, -Ordering prescription medications, tests and procedures, -Communicating results to the patient/family/caregiver, -Counseling/educating the patient/family/caregiver, - Documenting clinical information in the patients electronic record, and - Coordination of care for the patient documented in this [facility]10-10-2023 Hospital Discharge instructions Follow Up Care 03/13/2023 15:59:25 With:Caterina BROUSSARD, Nicolás Chavez, [facility], AYAH Address: When:6 months [facility]10-07-2023 [facility] HospitalComment on above:Result Comment: Electronically Signed By: Gissel HINDS DO\.br\Date and Time Signed: 03/10/23 00:24 [id number] NoteMr. Chambers was seen today for memory/geriatric evaluation. Memory testing was below expected for age/education level. Before I can diagnose a memory problem, I need to rule out that something else isn't causing it. Blood work was ordered today to be drawn at lab convenient to you. Order printed today. Our referrals coordinator will work on getting you scheduled for head CT at your local hospital. I will have Ida call you or your daughter today to discuss details. Return in 4-6 weeks for Virtual summary visit via phone or [facility]09-19-2023 History of Present illness Narrative* MONO Donaldson - 02/20/2023 1:45 PM EDT Senior Services/Geriatrics Social History Present at visit: patient, on phone- daughter Stephanie Marital status: Children: 2 children (both local) Living arrangement: with spouse, with daughter's family, own home Household safety problems: leaves water running, some falls Concerning Behaviors: Hallucinations when he is in hospital Wandering potential: No Pets: Yes, 2 dogs, 4 cats- daughter cares for pets Guns in the home: None Elder abuse: At Risk, has given out information over the phone, never got scammed Alcohol/Tobacco/Marijuana/Drug Use History: none service: Neither pt or spouse/partner Highest level of education: college 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 Activities: rides scooter outside, visits grandson/family, watches tv/movies/sports, goes to car shows with cousin Exercise: none Finances: has adequate savings, gets Social Security income, assisted Healthcare Power of Industrial Servicer: Yes: spouse- Alicia, then daughter Stephanie Financial Power of Industrial Servicer: Yes: spouse- Alicia, then daughter Stephanie Living Will: Yes Guardian: No Code Status: Full Code Primary Caregiver: evon Raymundo Current care plan/supervision: family is with patient 24 hours Community resources: None Caregiver stressors: daughter denies too much stress Goals for care: evaluate memory As a Caregiver, What Matters Most to You: Disease education >>02/20/23 Patient and live in home with daughter and family. Daughter is main caregiverand providing much care for patient. He is having memory issues but also has many other medical issues that could be contributing factors. Functional Status (I: Independent, A: Assisted, D: Dependent) ADLs I A D Notes Bathing [] [x] [] Daughter assists patient with bathing, mostly helping in/out Dressing [] [x] [] Daughter assists with dressing Toileting [] [x] [] Some urinary incontinence, uses Depends, some bowel accidents, needs some help with clean up if bowel accident Transfers [] [x] [] Needs some help up/down- has lift chair Feeding [x] [] [] No issues Ambulation [] [x] [] Uses cane or walker Assistive devices: Bedside Commode, Cane, Electric Scooter, Grab bars, Hearing aids, Lift chair, Rollator, Shower chair, Walker, and Wheelchair IADLs I A D Telephone [] [x] [] Can call and answer the phone, family sets up appointments, needs reminders Transportation [] [] [x] Driving safety concerns: Not currently driving, Primary Care Physician told patient not to drive Shopping [] [] [x] Daughter shops Meal prep [] [] [x] Spouse or daughter puts food in front of him Housework [] [] [x] Daughter cleans Medications [] [] [x] Daughter sets up pill box, spouse/daughter reminds, sometimes administers, daughter manages his insulin Finances [] [x] [] Spouse pays bills (always has), patient can use debit card but not using much Educational materials will be provided at next visit: Memory/Cognitive Ability Alzheimer's Association info/hotline 10 Tips to Keeping Independent Memory Tips (mild) 5Ms Dealing with Dementia 10 Ways to Love Your Brain Exercise/Activities Exercise Age Page Communication/Behaviors Communication - All Stages Communication Tips Redirecting Community Programs Papa Pals Diet Healthy Nutrition for Older Adults - [facility] Injury Prevention/Home Safety Summ Home Safety Checklist [facility] Mobility for Adults Falls Prevention Conversation Guide for Caregivers Medications Medication Safety/Dispensers Sleep Getting a Good Night's Sleep ([facility]) Sleep Hygiene Personal Care Personal Care Tips Bathing Tips * Keisha Brambila APRN - ABBY - 02/20/2023 1:45 PM EDT Images from the original note were not included. [facility] [address] [id number] Dept: [phone] Dept Loc: [phone] Visit type: [facility] Initial Assessment Visit Date: 02/21/2023 Reason for Visit: Memory Loss Assessment and Plan 1. Memory loss - CBC - Comprehensive metabolic panel - Vitamin B12 - Folate - TSH - CT head wo IV contrast 2. Parkinsonism, unspecified Parkinsonism type 3. Bipolar disorder, in partial remission, most recent episode mixed (CMS/HCC) ([facility]) 4. Polypharmacy - Mental status change with cognitive deficits in the following areas: Visuospatial/executive function, attention, language, delayed recall (MIS 10), orientation which have been slowly progressive over time with subsequent impairment in function. History and exam are concerning for Mild to moderate stage unspecified dementia. ? LB component to memory loss given fluctuating cognition, parkinson's symptoms. Have ordered labs and head CT to complete the assessment. Will review results at the Family Summary Conference. Bipolar disorder- Mood is not well controlled at this time. Suspect multifactorial- from medicationadjustments +/- memory issues +/- lack of independence. Defer to psychiatrist for medication adjustment. Pt is frustrated with the lack of communication between his current psychiatrist and movement s pecialist. Re-establishing with previous psychiatrist in April. Parkinsonism- Unclear if due to LBD, chronic antipsychotics for bipolar, or primary Parkinson's disease. Continue Sinemet at current dose. Follows with movement specialist currently. Polypharmacy- Pt interested in decreasing medication burden. Will discuss in more detail at [facility] with pt and family. Follow up in about 4 weeks (around 03/20/2023) for virtual summary visit. Subjective HPI: José Luis Faulkner is a 72 y.o. male who presents to the [facility] for a comprehensive geriatric assessment. The patient is new to me. Referred to office for dementia. Paper records given to me for pt's visit today. Last seen by Dr. Baker? on 11/21/22. PMH: Afib s/p AICD, DM2, HTN, HLD, hypothyroidism, bipolar disorder (on Abilify x 12 years), parkinsonism, RLS, JASMIN, stage 3B CKD, Vtach (paroxysmal), COPD, anemia, charcot arthritis of left foot, GERD, anxiety, OA L knee, chronic osteomyelitis left foot (MSSA), CHF, urinary retention, previous LAWANDA, h/o ND, bladder cancer- stage 0, chronic diarrhea Pt having worsening tremor despite lowering Abilify dose, responded to Sinemet so suspect underlying Parkinson's disease. Less likely DLB since he isn't having visual hallucinations (though possibly treated with Abilify). Diagnosed with moderate dementia by Neuro in the past. H/o abrupt onset L-sided facial droop and slurred speech but never went to ED. Fluctuating BP readings. Referred to Strokeneurologist. Sinemet increased to 25-100 mg 1.5 tabs TID (7am- 11am- 3pm- 7pm) Continue working with Dr. Massey (psychiatrist) to lower Abilify or wean off if possible. Recommend against driving due to dementia. History obtained from caregiver(s): Pt is here with cousins Raza and Christian. They defer to pt's daughter for questions re: memory concerns and functional deficits. Call to daughter Stephanie today. Short term memory loss: Examples of difficulties patient is experiencing: - Pt does not drive, doctor told him he couldn't drive anymore, happened around the time that he was having issues with foot infection, no specific driving incidents - Dtr Tamara helps pt with his appointments, was having trouble remembering things discussed in appointments - Repetitive with questions, forgets within a few hours but other times he is sharp - Forgets important dates/milestones, like his son's birthday - At times he forgets that he has a young grandson, dtr had to remind him that she had a baby, thisis an extreme example of pt's memory issues per dtr - Gets disoriented with dates, sometimes doesn't know the right year - More confused when he's sick - More anxious at times, not sure if it's due to bipolar medications being changed or part of his dementia Severity (as seen by the provider based on caregiver history): mild, Duration- symptoms started over last 3-4 years, Timing- slowly progressive, all day everyday, no difference whether morning or night, fluctuates but most of the time he has some element of forgetfulness, Context- (give details of any yes answers) history of stroke- No, incident of mouth droop and one-sided weakness that happened last summer, went to ED but wasn't able to undergo MRI due to his defibrillator, unknown if he's ever had a stroke,drooping/weakness is more pronounced at times, was referred to a stroke doctor in [place] but doesn't want to go history of head trauma- No, history of seizures- No, history of toxin exposures- No, history of hospitalization or surgery that made memory worse- No History of COVID-19- Yes - in December 2021, symptoms: fever, cough, sore throat, headaches, body aches, had him on home oxygen already and treated at home History of cancer? - Yes - bladder cancer, stage 0, diagnosed in Fall 2021 and surgically removed tumor in April 2022 Hearing Loss? - Yes - has hearing aids but doesn't wear them Hearing Aids? -yes Associated signs and symptoms- delusions or hallucinations- Yes - hallucinations in the hospital but not at home; for example, he would see people and animals that aren't there paranoia- Yes - worries about someone breaking into the home, getting more extreme than his baseline, wants to lock up his tools in the garage Trouble sleeping? Yes - goes through periods of times when he doesn't sleep well and then other periods of time he can sleep fine; more daytime napping REM-related sleep disorder- yes - will move and talk in his sleep in the past History obtained from patient: Tremor started about 2 years ago. Seems to have improved a little with Sinemet but not a lot. Mood- up and down. Frustrated that he can't do what he used to. Upset thathe's no longer able to be independent anymore. More anxiety with medication changes. Appetite- OK. Sleep- good. Feels rested most of the time. Hearing Screen: HHIE-S: Able to identify : yes Current events: Current President? Biden Why were we wearing masks? GENE Reviewed progress notes completed by DOUGLAS (ROS)and social work. Allergies Allergen Reactions Piperacillin-Tazobactam In Dex Current Outpatient Medications Medication Sig Dispense Refill albuterol 108 (90 Base) MCG/ACT inhaler Inhale 2 puffs every 6 hours as needed for wheezing. ALPRAZolam (Xanax) 0.25 MG tablet Take 0.25 mg by mouth daily. amiodarone (Pacerone) 100 MG tablet Take 300 mg by mouth daily. amLODIPine (Norvasc) 5 MG tablet Take 5 mg by mouth daily. amoxicillin (Amoxil) 500 MG tablet Take 500 mg by mouth daily. apixaban (Eliquis) 5 MG tablet Take 5 mg by mouth 2 times daily. ARIPiprazole (Abilify) 7.5 MG split tablet Take 7 mg by mouth daily. atorvastatin (Lipitor) 80 MG tablet Take 80 mg by mouth daily. carbidopa-levodopa (Sinemet) 25-100 MG tablet Take 1 tablet by mouth 3 times daily. carvedilol (Coreg) 25 MG tablet Take 25 mg by mouth in the morning and 25 mg in the evening. Take with meals. Coenzyme Q96-Nbzlmwp E (CoQ10 ST-100) 100-100 MG-UNIT capsule Take 100 mg by mouth daily. enalapril (Vasotec) 10 MG tablet Take 10 mg by mouth in the morning and 10 mg in the evening. Flaxseed, Linseed, (Flaxseed Oil) 1000 MG capsule Take 1,000 mg by mouth daily. fluticasone (Flonase) 50 MCG/ACT nasal spray Administer 2 sprays into each nostril 2 times daily. Shake gently. Before first use, prime pump. After use, clean tip and replace cap. glimepiride (Amaryl) 2 MG tablet Take 2 mg by mouth in the morning and 2 mg in the evening. Insulin Lispro (HUMALOG SC) Inject under the skin. insulin NPH, Isophane, (NovoLIN N) 100 UNIT/ML injection Inject 10 Units under the skin in the morning and 10 Units in the evening. Inject before meals. Isosorbide Mononitrate (IMDUR PO) Take 60 mg by mouth daily. lamoTRIgine (LaMICtal) 200 MG tablet Take 200 mg by mouth daily. levothyroxine (Tirosint) 150 MCG capsule Take 150 mcg by mouth every morning (before breakfast). loperamide (Imodium A-D) 2 MG tablet Take 2 mg by mouth as needed for diarrhea. magnesium oxide (Mag-Ox) 400 mg tablet 400 mg daily. metFORMIN (Glucophage) 1000 MG tablet Take 1,000 mg by mouth in the morning and 1,000 mg in the evening. Take with meals. Multiple Vitamins-Minerals (multivitamin with minerals) tablet Take 1 tablet by mouth daily. nitroglycerin (Nitrostat) 0.[address] 0.3 mg under the tongue every 5 minutes as needed for chest pain. pantoprazole (ProtoNix) 40 MG EC tablet Take 40 mg by mouth every morning (before breakfast). Do not crush, chew, or split. tamsulosin (Flomax) 0.4 MG 24 hr capsule Take 0.4 mg by mouth daily. torsemide (Demadex) 20 MG tablet Take 20 mg by mouth daily. umeclidinium-vilanterol (Anoro Ellipta) 62.5-25 MCG/ACT aerosol powder Inhale 1 puff Nightly. venlafaxine (Effexor) 12.5 MG split tablet Take 18.75 mg by mouth in the morning and 18.75 mg in the evening. Take with meals. VITAMIN D, CHOLECALCIFEROL, PO Take by mouth. Unknown dose No current facility-administered medications for this visit. Past Medical History: Diagnosis Date LAWANDA (acute kidney injury) ([facility]) ([facility]) Allergies Anemia Anxiety Arthritis Asthma Atrial fibrillation and flutter (HCC) Bipolar 1 disorder (HCC) Bladder cancer (HCC) CHF (congestive heart failure) ([facility]) (HCC) COPD (chronic obstructive pulmonary disease) (HCC) Coronary artery disease Dementia (HCC) Diabetes mellitus (HCC) Diarrhea GERD (gastroesophageal reflux disease) Hyperlipemia Hypertension Hypothyroidism Old myocardial infarction Osteoarthritis Osteomyelitis (HCC) Parkinson's disease (HCC) Urinary retention Social History Tobacco Use Smoking status: Former Types: Cigarettes Smokeless tobacco: Never Substance Use Topics Alcohol use: Not on file Past Surgical History: Procedure Laterality Date BLADDER SURGERY CATARACT EXTRACTION Bilateral COLONOSCOPY CORONARY ARTERY BYPASS GRAFT CORONARY STENT PLACEMENT EGD (HISTORICAL) FOOT SURGERY Left 2020 triple arthrodesis and fusion/reconstruction to repair Charcot foot I&D PERIRECTAL ABSCESS (HISTORICAL) Left left foot abscess fron bone spur removal INSERT / REPLACE / REMOVE PACEMAKER replaced in 2008 and 2020 MASTOIDECTOMY (HISTORICAL) No family history on file. No family status information on file. Objective Vitals: 02/20/23 1416 02/20/23 1417 BP: 134/54 (!) 146/67 BP Location: Left arm Left arm Patient Position: Sitting Standing BP Cuff Size: Adult long Adult long Pulse: 60 60 Weight: 229 lb 3.2 oz (104 kg) Height: 5' 8 (1.727 m) Wt Readings from Last 3 Encounters: 02/20/23 229 lb 3.2 oz (104 kg) Physical Exam Constitutional: General: He is not in acute distress. Appearance: He is not ill-appearing. Comments: Elderly male. Pleasant and cooperative. Well kempt, well nourished. HENT: Head: Normocephalic. Comments: No glasses. Bilat hearing aids. Right Ear: External ear normal. Left Ear: External ear normal. Cardiovascular: Rate and Rhythm: Normal rate and regular rhythm. Heart sounds: Normal heart sounds. No murmur heard. Pulmonary: Effort: Pulmonary effort is normal. No respiratory distress. Breath sounds: Normal breath sounds. Abdominal: General: Abdomen is flat. Bowel sounds are normal. Palpations: Abdomen is soft. Tenderness: There is no abdominal tenderness. Musculoskeletal: General: Swelling (1+ BLE) present. Comments: Muscle strength 4/5 BLE, 4/5 BUE. Gait- normal step length and clearance. Pace slowed. Slightly kyphotic posture over rollator. Balance intact with standing and turns. Unable to assess arm swing due to rollator use. Skin: General: Skin is warm and dry. Neurological: General: No focal deficit present. Cranial Nerves: Cranial nerve deficit (hearing loss) present. Sensory: No sensory deficit. Motor: Weakness (see MS exam) present. Coordination: Coordination normal. Gait: Gait abnormal (see MS exam). Comments: Alert and oriented x 2(to self and time, doesn't know place but not familiar to this area). Knows current events and 911. Speech clear and appropriate. Follows commands. Resting, pill rolling tremor in R hand; tremor in R leg. Cogwheeling rigidity in BUE R>L. Psychiatric: Comments: Appropriate affect and behavior. Data Reviewed and Summarized Old records reviewed and summarized here: CT head- done 02/2022; IMPRESSION: THERE ARE NO ACUTE INTRACRANIAL CHANGES, NO SIGNIFICANT CHANGE SINCE THE PREVIOUS STUDY. No mass effect. Moderate prominence of sulci and ventricles similar to previous study indicating global cerebral atrophy. No acute ischemia, loss of hall-white matter differentiation or hypodense lesion. Labs: No results found for: WBC, HGB, HCT, MCV, PLT No results found for: NA, K, CL, CO2, BUN, CREATININE, GLUCOSE, CALCIUM, PROT, BILITOT, ALKPHOS, AST, ALT, LABGLOM, AGRATIO, GLOB No results found for: TSH No results found for: FOLATE No results found for: [id number] No results found for: RPR Testing: The following tests were performed at today's visit and scanned in to the chart: MoCA score: 19, MIS score: 10 Clock drawing score: 5 PHQ-9 score: 1 YARELIS score: not done I independently reviewed the [place] Cognitive Assessment from 02/21/2023. Test scanned in to the chart. I spent total time of 59 minutes face to face with the patient and/or family discussing the diagnosis and importance of compliance with the treatment plan as well as documenting on the day of the visit. In addition, that total time includes the following: -Reviewing previous notes, -Reviewing labs, -Obtaining and/or reviewing separately obtained history, -Ordering prescription medications, tests and procedures, -Counseling/educating the patient/family/caregiver, -Documenting clinical information in the patients electronic record, -Coordination of care for the patient, and -Performing a medically appropriate exam and/or evaluation documented in this [facility]09-19-2023 Instructions* Patient Instructions* BALTAZAR Bae CNP - 02/20/2023 1:45 PM EDT Mr. Chambers was seen today for memory/geriatric evaluation. Memory testing was below expected for age/education level. Before I can diagnose a memory problem, I need to rule out that something else isn't causing it. Blood work was ordered today to be drawn at lab convenient to you. Order printed today. Our referrals coordinator will work on getting you scheduled for head CT at your local hospital. I will have Ida call you or your daughter today to discuss details. Return in 4-6 weeks for Virtual summary visit via phone or MyChart. documented in this [facility]09-15-2023 Telephone encounter Note* Telephone Encounter - Ida Mosher - 02/16/2023 5:18 PM EDT Scheduled 02/20/2023. [id number] Miscellaneous Notes* Telephone Encounter - Ida Mosher - 02/16/2023 5:18 PM EDT Scheduled 02/20/2023. * Telephone Encounter - Michelle Blackmon - 02/15/2023 11:35 AM EDT Name of Caller: Stephanie Contact Reason for Appointment: New Patient Office Name: [facility] Medication Refills need, if any: na Medication Name: Andi documented in this [id number] Telephone encounter Note* Telephone Encounter - Michelle Blackmon - 02/15/2023 11:35 AM EDT Name of Caller: Stephanie Contact Reason for Appointment: New Patient Office Name: [facility] Medication Refills need, if any: na Medication Name: Na [facility] [id number] [id number] [facility]08-15-2023 Hospital Discharge instructions Patient Education 01/16/2023 10:37:42 [facility] - Cystoscopy Discharge Instructions (CUSTOM) Cystoscopy Voiding after the procedure: there may be some pain, burning, urgency, frequency and blood tinged urine following the procedure. These symptoms usually resolve within 2-5 days. Drink the amount of fluid it takes to keep the urine pink to yellow or clear in color. Drinking enough water and fluids will help to ease any discomfort after your procedure. If you are having problems that seem out of the ordinary, please call. If unable to contact your physician and you feel it is an emergency, go to the nearest emergency room or call 911 Diet you may resume your normal diet. Activity you may resume your normal activities Call if you have a fever over 100 degrees. Follow Up Care 01/01/2023 13:32:34 With:Andi WARE Address: [facility] [address], [place] [address]- Business (1) When: Unknown Comments:Office will call to schedule follow up [facility]08-14-2023 Evaluation note* Encounter Date Diagnosis Assessment Notes Treatment Notes Treatment Clinical Notes Jan, Osteomyelitis of ankle and foot (ICD-10 - M86.9) Once daily amoxicillin refilled. Probiotic refilled. No changes. Doing well clinically. Jan, Charcot foot due to diabetes mellitus (ICD-10 - E11.610) Jan, Chronic antibiotic suppression (ICD-10 - Z79.2) [facility] Other 05-30-2023 Hospital Discharge instructions Patient Education 10/31/2022 11:00:45 [facility] - Cystoscopy Discharge Instructions (CUSTOM) Cystoscopy Voiding after the procedure: there may be some pain, burning, urgency, frequency and blood tinged urine following the procedure. These symptoms usually resolve within 2-5 days. Drink the amount of fluid it takes to keep the urine pink to yellow or clear in color. Drinking enough water and fluids will help to ease any discomfort after your procedure. If you are having problems that seem out of the ordinary, please call. If unable to contact your physician and you feel it is an emergency, go to the nearest emergency room or call 911 Diet you may resume your normal diet. Activity you may resume your normal activities Call if you have a fever over 100 degrees. Follow Up Care 10/26/2022 09:53:51 With:Andi WARE Address: [facility] [address] [place] [address] Business (1) When:01/31/2023 11:00:22 Comments:For next cystoscopy in 3 months [facility]04-20-2023 Hospital Discharge instructions Patient Education 09/21/2022 16:03:12 Cancer Screening for Men Cancer Screening for Men A cancer screening is a test or exam that checks for cancer. Your health care provider will recommend specific cancer screenings based on your age, medical history (including risk factors), and family history of cancer. Work with your health care provider to create a cancer screening schedule that protects your health. Who should have screening? All men should be considered for screening of certain cancers, including colorectal cancer, prostate cancer, lung cancer, and skin cancer. Your health care provider may recommend screenings for othertypes of cancer if: You had cancer before. You have a family member with cancer. You have abnormal genes that could increase the risk of cancer. You have risk factors for certain cancers, such as current or past use of tobacco products, or being overweight. When you should be screened for cancer depends on: Your age. Your medical history and your family's medical history. Certain lifestyle factors, such as smoking or other use of tobacco products. Environmental exposure, such as to asbestos. How is screening done? Colorectal cancer All adults should have screenings starting at age 45 and continuing until age 75. Your health care provider may recommend screening before age 45. You will have tests every 1 10 years, depending on your results and the type of screening test. People at increased risk should start screening at an earlier age. Talk with your health care provider about which screening test is right for you and how often you should be screened. Colorectal cancer screening looks for cancer or for growths called polyps that often form before cancer starts. Tests to look for cancer or polyps include: Colonoscopy or flexible sigmoidoscopy. For these procedures, a flexible tube with a small camera isinserted into the rectum. CT colonography. This test uses X-rays and a contrast dye to check the colon for polyps. If a polypis found, you may need to have a colonoscopy so the polyp can be located and removed. Tests to look for cancer in the stool (feces) include: Guaiac-based fecal occult blood test (FOBT). This test can find blood in stool. It can be done at home with a kit. Fecal immunochemical test (FIT). This test can find blood in stool. For this test, you will need tocollect stool samples at home. Stool DNA test. This test looks for blood in stool and any changes in DNA that can lead to colon cancer. For this test, you will need to collect a stool sample at home and send it to a lab. Prostate cancer Prostate cancer screening for men with average risk may start at age 50. Men with risk factors may need to be screened earlier, at ages 40 45. Talk with your health care provider about whether screening is right for you and, if so, how often you should be screened. Prostate cancer screening is done with blood tests and a digital rectal exam. During this exam, a health care provider uses a gloved finger to check prostate size. You may need to be screened for prostate cancer if: You have risk factors for prostate cancer, such as being or having a close family member with prostate cancer. You have had gene changes or a genetic condition that was passed on to you from a parent (inherited). These gene changes or genetic conditions include BRCA1 or BRCA2 gene mutations or Miles syndrome. You have symptoms of prostate cancer, such as problems urinating or problems getting or keeping an erection (erectile dysfunction). When you have been screened for prostate cancer, future screening may be recommended based on the results of your blood tests. Lung cancer Lung cancer screening is done with a CT scan that looks for abnormal changes in the lungs. Discuss lung cancer screening with your health care provider if you are 50 80 years old and if any of the following apply to you: You currently smoke. You used to smoke heavily. You have a smoking history of 1 pack of cigarettes a day for 20 years or 2 packs a day for 10 years. You have quit smoking within the past 15 years. You may need to be screened every year if you smoke heavily or if you used to smoke. Skin cancer Skin cancer screening is done by checking the skin for unusual moles or spots and any changes in existing moles. Your health care provider should check your skin for signs of skin cancer at every physical exam. You should check your skin every month and tell your health care provider right away if anything looks unusual. Men with a xazgdi-malz-udnyyi risk for skin cancer may want to see a outreach specialist (pharmacognosist) for an annual body check. What are the benefits of screening? Cancer screening is done to look for cancer in the very early stages, before it spreads and becomesharder to treat and before you would start to notice symptoms. Finding cancer early improves the chances of successful treatment. It may save your life. Where to find more information [employer]: www.cancer.org Centers for Disease Control and Prevention: www.cdc.gov National Cancer [place]: www.cancer.gov Contact a health care provider if: You have concerns about any signs or symptoms of cancer. These may include: Skin problems. You may have: ?Moles of an unusual shape or color. ?Changes in existing moles. ?A sore on your skin that does not heal. Tiredness (fatigue) that does not go away. Losing weight without trying. Blood in your urine or stool. Problems with urination. You may have: ?Changes in urination habits. ?Painful urination. Painful ejaculation. Problems with coughing or breathing. These may include: ?Coughing or trouble breathing that does not go away. ?Coughing up blood. Frequent pain or cramping in your abdomen. Summary Your health care provider will recommend specific cancer screenings based on your age, medical history, and family history of cancer. Work with your health care provider to create a cancer screening schedule that protects your health. Finding cancer early improves the chances of successful treatment. It may save your life. Contact a health care provider if you have concerns about any signs or symptoms of cancer. This information is not intended to replace advice given to you by your health care provider. Make sure you discuss any questions you have with your health care provider. Document Revised: 10/17/2021 Document Reviewed: 04/16/2020 [employer] Patient Education 2022 [employer]. Follow Up Care 08/23/2022 10:38:51 With:CHAZ BROUSSARD, Andi Caputo, URL Address: [facility] [address] , [place] [address]- When: Unknown [facility] 03-22-2023 Hospital Discharge instructions Patient Education 08/23/2022 10:32:18 Paraphimosis Paraphimosis Paraphimosis is a serious condition that happens when the fold of skin that stretches over the tip of the penis (foreskin) becomes stuck when it is pulled back. This condition blocks blood from flowing away from the penis tip, and that causes swelling that gets worse and worse. Paraphimosis needs to be treated right away. What are the causes? This condition may be caused by: Leaving the foreskin pulled back after a procedure, such as after the placement of a catheter. A foreskin that is tighter than normal. A foreskin that has been pulled back for too long. A forceful pulling back of the foreskin. Infection under the foreskin. Trauma to the area, such as a hard hit to the tip of the penis. Having sex or masturbating. Hair or clothing that gets wrapped around the penis. What increases the risk? You are more likely to develop this condition if you: Have not had all of your foreskin removed. Have had frequent urological procedures. Have poor hygiene. Need help with daily hygiene from a caregiver. What are the signs or symptoms? Symptoms of this condition include: A foreskin that cannot be returned to its normal position. Pain, often at the tip of the penis. Swelling of the penis. Trouble urinating. Skin that is red or bluish at the tip of the penis. How is this diagnosed? This condition may be diagnosed based on your symptoms and a physical exam. How is this treated? This condition may be treated with: A procedure in which your health care provider manually moves the foreskin back into position over the tip of the penis. Swelling may first be reduced by: ?Applying ice to the area. ?Wrapping a bandage tightly around the penis. ?Using needles to drain any pus or blood that is causing the swelling. ?Applying a gauze soaked with certain medicines or solutions. ?Applying granulated sugar to the area. ?Injecting medicine into the foreskin to reduce swelling. Medicine to relieve pain. Medicine may be given by mouth, through an IV, or by an injection to the base of the penis (nerve block). A procedure in which a small incision is made in the tightened foreskin to free it and allow it to be pulled back into place (dorsal slit procedure). Surgery to remove the foreskin (circumcision). This may be done if the foreskin cannot be moved back into place. Most of the time, treatment can be done in a clinic or a health care provider's office. Follow these instructions at home: Lifestyle Follow instructions from your health care provider about avoiding sexual activity. Wear loose undergarments to avoid applying pressure to the area. General instructions Take myri-dih-fgrzkwc and prescription medicines only as told by your health care provider. Apply any creams to the affected area only as told by your health care provider. Follow instructions from your health care provider about how to take care of your wound. Make sure you: ?Wash your hands with soap and water before and after you change your bandage (dressing) if you were given one. If soap and water are not available, use hand supervisor bonding. ?Ask when you should remove your dressing. ?Ask whether the area can get wet. Keep all follow-up visits as told by your health care provider. This is important. Contact a health care provider if: The treated area of skin does not heal or it becomes more irritated, red, or bloody. Urination is difficult or painful. Pain in the penis continues, even after you take medicine for pain. You develop a fever. Summary Paraphimosis is a serious condition that happens when the fold of skin that stretches over the tip of the penis (foreskin) becomes stuck when it is pulled back. Paraphimosis needs to be treated rightaway. Take ntwj-ioj-galxwun and prescription medicines only as told by your health care provider. Apply any creams to the affected area only as told by your health care provider. Contact a health care provider if urination is difficult or painful, or if pain in the penis continues even after you take medicine for pain. Keep all follow-up visits as told by your health care provider. This is important. This information is not intended to replace advice given to you by your health care provider. Make sure you discuss any questions you have with your health care provider. Document Released: 03/18/2010 Document Revised: 10/30/2018 Document Reviewed: 10/30/2018 [employer] Patient Education 2020 [employer]. Follow Up Care 08/16/2022 14:04:38 With:CHAZ BROUSSARD, Andi Caputo, URL Address: [facility] [address] [place] [address]- [phone] When:09/23/2022 [facility] 03-15-2023 Hospital Discharge instructions Patient Education 08/16/2022 13:49:43 Paraphimosis Paraphimosis Paraphimosis is a serious condition that happens when the fold of skin that stretches over the tip of the penis (foreskin) becomes stuck when it is pulled back. This condition blocks blood from flowing away from the penis tip, and that causes swelling that gets worse and worse. Paraphimosis needs to be treated right away. What are the causes? This condition may be caused by: Leaving the foreskin pulled back after a procedure, such as after the placement of a catheter. A foreskin that is tighter than normal. A foreskin that has been pulled back for too long. A forceful pulling back of the foreskin. Infection under the foreskin. Trauma to the area, such as a hard hit to the tip of the penis. Having sex or masturbating. Hair or clothing that gets wrapped around the penis. What increases the risk? You are more likely to develop this condition if you: Have not had all of your foreskin removed. Have had frequent urological procedures. Have poor hygiene. Need help with daily hygiene from a caregiver. What are the signs or symptoms? Symptoms of this condition include: A foreskin that cannot be returned to its normal position. Pain, often at the tip of the penis. Swelling of the penis. Trouble urinating. Skin that is red or bluish at the tip of the penis. How is this diagnosed? This condition may be diagnosed based on your symptoms and a physical exam. How is this treated? This condition may be treated with: A procedure in which your health care provider manually moves the foreskin back into position over the tip of the penis. Swelling may first be reduced by: ?Applying ice to the area. ?Wrapping a bandage tightly around the penis. ?Using needles to drain any pus or blood that is causing the swelling. ?Applying a gauze soaked with certain medicines or solutions. ?Applying granulated sugar to the area. ?Injecting medicine into the foreskin to reduce swelling. Medicine to relieve pain. Medicine may be given by mouth, through an IV, or by an injection to the base of the penis (nerve block). A procedure in which a small incision is made in the tightened foreskin to free it and allow it to be pulled back into place (dorsal slit procedure). Surgery to remove the foreskin (circumcision). This may be done if the foreskin cannot be moved back into place. Most of the time, treatment can be done in a clinic or a health care provider's office. Follow these instructions at home: Lifestyle Follow instructions from your health care provider about avoiding sexual activity. Wear loose undergarments to avoid applying pressure to the area. General instructions Take rrwc-fer-mgsvcyy and prescription medicines only as told by your health care provider. Apply any creams to the affected area only as told by your health care provider. Follow instructions from your health care provider about how to take care of your wound. Make sure you: ?Wash your hands with soap and water before and after you change your bandage (dressing) if you were given one. If soap and water are not available, use hand supervisor bonding. ?Ask when you should remove your dressing. ?Ask whether the area can get wet. Keep all follow-up visits as told by your health care provider. This is important. Contact a health care provider if: The treated area of skin does not heal or it becomes more irritated, red, or bloody. Urination is difficult or painful. Pain in the penis continues, even after you take medicine for pain. You develop a fever. Summary Paraphimosis is a serious condition that happens when the fold of skin that stretches over the tip of the penis (foreskin) becomes stuck when it is pulled back. Paraphimosis needs to be treated rightaway. Take syor-cav-byqpxkf and prescription medicines only as told by your health care provider. Apply any creams to the affected area only as told by your health care provider. Contact a health care provider if urination is difficult or painful, or if pain in the penis continues even after you take medicine for pain. Keep all follow-up visits as told by your health care provider. This is important. This information is not intended to replace advice given to you by your health care provider. Make sure you discuss any questions you have with your health care provider. Document Released: 03/18/2010 Document Revised: 10/30/2018 Document Reviewed: 10/30/2018 [employer] Patient Education 2020 [employer]. Follow Up Care 08/09/2022 16:13:36 With:CHAZ BROUSSARD, Andi Caputo, URL Address: [facility] [address] , [place] [address]- When: Unknown [facility] 03-08-2023 Hospital Discharge instructions Patient Education 08/09/2022 15:57:56 Cancer Screening for Men Cancer Screening for Men A cancer screening is a test or exam that checks for cancer. Your health care provider will recommend specific cancer screenings based on your age, personal history, and family history of cancer. Work with your health care provider to create a cancer screening schedule that protects your health. Why is cancer screening done? Cancer screening is done to look for cancer in the very early stages, before it spreads and becomesharder to treat and before you would start to notice symptoms. Finding cancer early improves the chances of successful treatment. It may save your life. Who should be screened for cancer? All men should be screened for colorectal cancer and skin cancer. Your health care provider may recommend screenings for other types of cancer if: You had cancer before. You have a family member with cancer. You have abnormal genes that could increase the risk of cancer. You have risk factors for certain cancers, such as smoking. When you should be screened for cancer depends on: Your age. Your medical history and your family's medical history. Certain lifestyle factors, such as smoking. Environmental exposure, such as to asbestos. What are some common cancer screenings? Lung cancer Lung cancer screening is done with a CT scan that looks for abnormal cells in the lungs. Discuss lung cancer screening with your health care provider if you are 55 74 years old and if any of the following apply to you: You currently smoke. You used to smoke heavily. You have a smoking history of 1 pack a day for 30 years or 2 packs a day for 15 years. You have quit smoking within the past 15 years. If you smoke heavily or if you used to smoke, you may need to be screened every year. Prostate cancer Prostate cancer screening is done with blood tests and an exam in which a health care provider usesa gloved finger to check prostate size (digital rectal exam). You may need to be screened for prostate cancer if: You have risk factors of prostate cancer, such as being or having a close family member with prostate cancer. You have inherited gene changes or a genetic condition, including BRCA1 or BRCA2 gene mutations or Miles syndrome. You have symptoms of prostate cancer, such as problems urinating or erectile dysfunction. Prostate cancer screening for men with average risk may start at age 50. Men with risk factors may need to be screened earlier at age 40 45. Once you have been screened for prostate cancer, future screening may be recommended based on the results of your blood tests. Colorectal cancer All adults should have screening for colorectal cancer starting at age 50 and continuing until age 75. Your health care provider may recommend screening at age 45. You will have tests every 1 10 years, depending on your results and the type of screening test. If you have a family history of colon or rectal cancer or other risk factors, you may need to start having screenings earlier. Talk with your health care provider about which screening test is right for you and how often you should be screened. Colorectal cancer screening looks for cancer or for growths called polyps that often form before cancer starts. Tests to look for cancer or polyps include: Colonoscopy or flexible sigmoidoscopy. For these procedures, a flexible tube with a small camera isinserted into the rectum. CT colonography. This test uses X-rays and a contrast dye to check the colon for polyps. If a polypis found, you may need to have a colonoscopy so the polyp can be located and removed. Tests to look for cancer in the stool (feces) include: Guaiac-based fecal occult blood test (FOBT). This test detects blood in stool. It can be done at home with a kit. Fecal immunochemical test (FIT). This test detects blood in stool. For this test, you will need to collect stool samples at home. Stool DNA test. This test looks for blood in stool and any changes in DNA that can lead to colon cancer. For this test, you will need to collect a stool sample at home and send it to a lab. Skin cancer Skin cancer screening is done by checking the skin for unusual moles or spots and any changes in existing moles. Your health care provider should check your skin for signs of skin cancer at every physical exam. You should check your skin every month and tell your health care provider right away if anything looks unusual. Men with a tsyswt-alpe-khwvcw risk for skin cancer may want to see a outreach specialist (pharmacognosist) for an annual body check. Where to find more information [employer] Cancer [place]: https://www.cancer.gov/about-cancer/screening Centers for Disease Control and Prevention: https://www.cdc.gov/cancer/dcpc/prevention/screening.htm [employer]: https://www.cancer.org/latest-news/4-hodsdn-ugophszbs-rhxou-aec-hek.html Contact a health care provider if: You have concerns about any signs or symptoms of cancer, such as: ?Moles that have an unusual shape or color. ?Changes in existing moles. ?A sore on your skin that does not heal. ?Blood in your urine or stool. ?Fatigue that does not go away. ?Frequent pain or cramping in your abdomen. ?Coughing or trouble breathing that does not go away. ?Coughing up blood. ?Losing weight without trying. ?Changes in urination habits. ?Painful urination or ejaculation. Summary Be aware of and watch for signs and symptoms of cancer, especially symptoms of lung cancer, prostate cancer, colorectal cancer, and skin cancer. Early detection of cancer with cancer screening may save your life. Talk with your health care provider about your specific cancer risks. Work together with your health care provider to create a cancer screening plan that is right for you. This information is not intended to replace advice given to you by your health care provider. Make sure you discuss any questions you have with your health care provider. Document Released: 02/15/2017 Document Revised: 02/07/2019 Document Reviewed: 02/15/2017 [employer] Patient Education 2020 [employer]. Follow Up Care 08/09/2022 14:31:53 With:CHAZ BROUSSARD, Andi Caputo, URL Address: [facility] [address] [place] [address]- When: Unknown [facility] 03-01-2023 History of Present illness Narrative* Venkatesh Gil is a 71 year old right-handed male with bipolar disorder (on Abilify x12 years),who presents for follow up of parkinsonism. He had tremor >10 years, and was previously diagnosed with Parkinson's disease vs drug-induced parkinsonism by Dr. Zac Martinez in 2021 and was started on carbidopa/levodopa. DaTscan in August was negative for parkinsonian syndrome. DaTscan in August was read as negative for parkinsonian syndrome (. He is accompanied by his daughter Stephanie who is an RN. * Since last visit, he states the Abilify has been further reduced to 7.5 mg without any improvement in his rest tremor. He feels that the carbidopa/levodopa helps with his tremor, though he continues to have tremor. * Daughter states he had a left facial droop and slurred speech for which she called into the movement clinic and was advised to go to the ED for evaluation. He declined, and has since had some fluctuating left-sided facial droop and slurring of speech. He cannot get an MRI due to pacemaker. * He tried to schedule an appointment with Dr. Jon, but he was unable to get an appointment. He continues to see his psychiatrist Dr. Tejas Massey in [place]. * Denies slowness of movements and states he feels his reaction time is still good. Denies muscle stiffness. * Difficulty with balance in the morning. He fell over while sitting on his walker while he was gardening last month.He states this was because the handle of his walker fell. Does not exercise other than walking. Had 3 years of PT between home health and outpatient. His daughter states he was discharged due to poor balance. * Denies hyposmia/anosmia. * No dysphagia or drooling. Denies hypophonia. * No constipation or urinary symptoms (since bladder tumors removed in May). * Sleep is good. Sleeps in a recliner as he is able to breathe better. Uses O2 at nighttime as he used to remove CPAP during his sleep. Denies RBD symptoms. * Mood is fairly good. He states his mood has not worsened despite lowering of Abilify. * Diagnosed with dementia within the last year, denies any changes. No VH. B12 was 279 (low) in January. TSH high at 30.12 in December 2021. * Current PD meds: * -Carbidopa/levodopa 25-100 mg 1.5 tab TID (7-8 am, 12 pm, 4 pm) * Onset 60-90 minutes. Wears off after about 3 hours. Has worsening tremor when he wears off, he doesnot always notice wearing off prior to his next dose. No nausea, VH, or dyskinesias. Some orthostatic lightheadedness, stands slowly. * Previous PD meds: * -Trihexiphenidyl stopped due to side effect of urinary retention RM-Ojzhowbjd-Hlslamug B [facility] Work Phone: 1(192) 807-406002-13-2023 Evaluation note* Encounter Date Diagnosis Assessment Notes Treatment Notes Treatment Clinical Notes Jul, Osteomyelitis of ankle and foot (ICD-10 - M86.9) Decrease Amoxicillin to once daily dosing now. Maintain this dose as his new dose. Jul, Charcot foot due to diabetes mellitus (ICD-10 - E11.610) Jul, Chronic antibiotic suppression (ICD-10 - Z79.2) [facility] Other 2022 Hospital Discharge instructions Patient Education 06/02/2022 12:17:10 Circumcision Information Circumcision Information Boys are born with a fold of skin that covers the head of the penis (foreskin). This fold of skin is often removed shortly after with a surgery that is called circumcision. A circumcision may be done by health care providers who are involved in care. It may also be done by a specialist who cares for the urinary tract (urologist). Who should be circumcised? The decision to leave the foreskin on or to have it removed is a personal one. It is often based onreligious, social, or cultural beliefs. Circumcision is most often done in the first few days of life, but it may also be done later in life. In general: All healthy boys with a normal penis formation can be circumcised in the first few days after . Boys who are born early (prematurely) or who are ill should not be circumcised until they are olderand stronger. Boys with certain deformities of the penis or deformities of the opening of the penis (urethra) should not be circumcised. How is circumcision done? The penis and the area around it are cleansed well. An injection is given to numb the area. A numbing cream may be applied to the area. A special clamp or ring is attached to the penis and used to remove the foreskin. The area is then cleansed well again. Medicine and gauze are applied to it. What are the benefits of circumcision? When the foreskin is removed: The head of the penis is easier to wash. This lowers the risk for odors, swelling, and infection. Some men are less likely to: ?Carry the virus that causes genital warts (human papillomavirus or HPV). ?Contract HIV (human immunodeficiency virus). ?Develop cancer of the penis. ?Get urinary infections. ?Develop inflammation of the penis. What are the risks of circumcision? Circumcision is a safe procedure. However, problems may occur, including: Infection. Bleeding. Removal of too much or too little foreskin. This affects the appearance of the penis. Irritation and narrowing of the urinary opening. This is usually temporary. Scarring of the penis. This may affect the way the penis functions. Summary Boys are born with a fold of skin that covers the head of the penis (foreskin). This fold of skin is often removed shortly after with a surgery that is called circumcision. When the foreskin is removed, the head of the penis is easier to wash and keep clean. Some men who are circumcised are less likely to carry viruses, get urinary infections, or develop cancer of the penis. Circumcision is a safe procedure. However, problems may occur, including infection, bleeding, scarring, and irritation and narrowing of the opening of the penis. This information is not intended to replace advice given to you by your health care provider. Make sure you discuss any questions you have with your health care provider. Document Released: 05/18/2001 Document Revised: 11/04/2018 Document Reviewed: 11/04/2018 [employer] Patient Education 2020 [employer]. Follow Up Care 05/17/2022 11:48:41 With:CHAZ BROUSSARD, Andi Caputo, URL Address: [address] [place] [address]- When: Unknown [facility] [place] 12-11-2022 Discharge summary Author Janusz Davidson [facility] May 14, 2022 3:11pm Note Date/Time May 14, 2022 3:11pm [facility] [address] [place] [address] Discharge Summary Signed Patient: José Luis Faulkner MR #: [id number] : 1950 Acct:[id number] Age/Sex: 71 / M Adm Date: 2 Loc: Room: [address] [place] [address]: Janusz Davidson DO Copies to: Mona Davidson, ~ Providers Date of Discharge: 05/14/22 Discharging Provider: Janusz Davidson Primary Care Provider: Mona Baker Consults: 05/12/22 13:31 Consult to Gastroenterology Routine Discharge Diagnosis (1) Haemorrhage postprocedure: (2) Rectal bleeding: (3) Acute lower GI bleeding: Final Diagnosis Final Discharge Diagnosis: In addition to the above diagnoses: 4. Chronic kidney disease stage III 5. Peripheral edema 6. Chronic systolic congestive heart failure 7. Atrial fibrillation 8. Hypothyroidism 9. Parkinson's disease Summary Hospital Course Hospital course: This patient is a 71-year-old male who presented to the emergency department on 05/12/2022 with a chief complaint of rectal bleeding. Initial hemoglobin was noted to be 9.4. Hemodynamically remained stable. He was admitted for further observation and his home apixaban and aspirin were both held. Gastroenterology was consulted to see the patient. Recommended continued observation. This pastTuesday the patient and underwent a urologic procedure which was evaluating recorded bladder tumors. There was reportedly instrumentation within his rectumduring this procedure. The day following this he developed blood clots and had continued bleeding prompting his presentation to the ER. Over the duration of his stay his vitals remained stable. Clinically he reported no further bleeding. At this time it is recommended for him to continue holding his aspirin and Eliquis on discharge. He can resume his Eliquis in 5 days on 05/19/2022. He will have labs performed this same day including a BMP and CBC. He reports a large amount of weight gain and is exhibiting peripheral edema. Hehas no severe shortness of breath or hypoxia. He does have mild congestion on chest x-ray and an elevated BNP level. I advised him to take his torsemide 20 mg twice daily and then resume his regular 20 mg daily dosing on 05/19/2022. His renal function can be evaluated on BMP. His H&H has been relatively stable although has down trended a bit to 8.8 which I suspect is a delayed equilibration of his blood counts from his bleeding earlier on. I advised the patient to call gastroenterology office for his colonoscopy scheduling however at this time instrumentation could likely worsen his bleeding. I did offer him stool softeners however the patient and his family feel that the chronic antibiotics he takes keep his stools loose enough. He does not seem extremely constipated but has not had a bowel movement on day of discharge. I do not feelthat he is at risk for any more severe or ongoing bleeding. He should return tothe ER should he develop any severe refractory bleeding. Physical Examination: GENERAL APPEARANCE: Alert, up in bed AAOx3 CARDIAC: Normal S1 and S2. No S3, S4 or murmurs. LUNGS: Clear to auscultation bilaterally. no wheeze/rhonchi/rales ABDOMEN: Positive bowel sounds. Soft, nontender. No guarding or signs of an acute abdomen MUSCULOSKELETAL: No joint erythema or tenderness. EXTREMITIES: No clubbing, cyanosis.? 1-2+ pitting edema bilateral lower extremities. NEUROLOGICAL: No focal deficits SKIN: Skin normal color, texture and turgor with no lesions or eruptions. PSYCHIATRIC: Appropriate mood and affect 45 minutes were spent coordinating the discharge of this patient Time Spent with Patient Time spent providing/coordinating discharge services (# min): 45 Diagnostic Studies Completed and Pending Studies Pending studies at discharge: 05/15/22 05:00 Basic Metabolic Panel [CHEM] IN AM Complete Blood Count Auto Diff IN AM 05/16/22 05:00 Basic Metabolic Panel [CHEM] IN AM Complete Blood Count Auto Diff IN AM 05/17/22 05:00 Basic Metabolic Panel [CHEM] IN AM Complete Blood Count Auto Diff IN AM Labs on day of discharge: 05/14/22 11:38: POC Glucose 282, POC Glucose Comment Glu2: cleaned meter 05/14/22 07:29: POC Glucose 152, POC Glucose Comment Glu2: cleaned meter 05/14/22 05:59: PHA Creatinine Clear 66.09, Sodium 136, Potassium 3.9, Chloride 100, Carbon Dioxide 28.9, Anion Gap 11.0, BUN 18, Creatinine 1.27, Est GFR ( Amer) > 60, Est GFR (Non-Af Amer) 56, Glucose 161 H, Calcium 8.3 05/14/22 05:59: Corrected WBC 6.6, Uncorrected WBC Count 6.6, RBC 3.20 L, Hgb 8.8 L, Hct 26.8 L, MCV 83.5, MCH 27.5, MCHC 32.9, RDW 15.7 H, Plt Count 230, MPV 6.9, Neut % (Auto) 70.9, Lymph % (Auto) 18.1, Woods % (Auto) 7.4, Eos % (Auto) 2.5, Baso % (Auto) 1.1, Nucleat RBC Rel Count 0.1, Neut # (Auto) 4.7, Lymph # (Auto) 1.2, Woods # (Auto) 0.5, Eos # (Auto) 0.2, Baso # (Auto) 0.1 05/13/22 21:26: POC Glucose 255 05/13/22 16:28: POC Glucose 190, POC Glucose Comment Glu2: cleaned meter Exam Physical Exam Vital Signs: Temp Pulse Resp BP Pulse Ox O2 Del Method O2 Flow Rate 97.6 F 66 16 114/54 L 93 L Room Air 3 05/14/22 12:00 05/14/22 12:38 05/14/22 12:38 05/14/22 12:00 05/14/22 12:00 05/14/22 12:00 05/14/22 08:00 Discharge Plan Discharge Plan Patient Disposition: Home Prescriptions: Continued atorvastatin 80 mg Tablet 80 mg PO QHS carvedilol 25 mg Tablet 25 mg PO BID lamotrigine 200 mg Tablet 200 mg PO QAM enalapril maleate 10 mg Tablet 10 mg PO BID flaxseed oil 1,000 mg Capsule 1,000 mg PO QAM aripiprazole [Abilify] 10 mg Tablet 15 mg PO QAM albuterol sulfate 90 mcg/actuation Aerosol Powdr Breath Activated 2 puff INHALATION Q4H PRN (Reason: Shortness Of Breath Or Wheezing) venlafaxine 75 mg Tablet 37.5 mg PO BID nitroglycerin 0.4 mg Tablet, Sublingual 0.4 mg SUBLINGUAL Q5-15M PRN (Reason: Chest Pain) cholecalciferol (vitamin D3) [Vitamin D3] 1,000 unit Tablet 1,000 unit PO DAILY Novolin N NPH U-100 Insulin 100 unit/mL Suspension 20 unit SUBCUT BID metformin 1,000 mg Tablet 1,000 mg PO BID Hold Instructions: Resume on 05/14/21. amoxicillin 500 mg Capsule 500 mg PO BID glimepiride 2 mg tablet 2 mg PO BID Label Comments: TAKE 1 TABLET BY MOUTH TWICE DAILY pantoprazole 40 mg Tablet,Delayed Release (Dr/Ec) 40 mg PO QAM ascorbic acid (vitamin C) 100 mg Tablet,Chewable 300 mg PO DAILY Saccharomyces boulardii [Florastor] 250 mg Capsule 250 mg PO BID Men's 50 Plus Multivitamin 400-20-370 mcg Tablet 2 tab PO QAM amlodipine [Norvasc] 5 mg tablet 5 mg PO QAM Label Comments: TAKE 1 TABLET BY MOUTH ONCE DAILY amiodarone [Pacerone] 200 mg tablet 300 mg PO QAM insulin lispro [Humalog KwikPen Insulin] 100 unit/mL Insulin Pen 10 sliding scale dose SUBCUT TIDWMEAL PRN (Reason: dm) coenzyme Q10 [Co Q-10] 100 mg Capsule 100 mg PO DAILY cranberry 400 mg Capsule 400 mg PO BID Rx Instructions: administer with meals fluticasone propionate 50 mcg/actuation [place],Suspension 2 spray INTRANASAL DAILY PRN (Reason: Unknown) Rx Instructions: administer into each nostril torsemide 20 mg tablet 20 mg PO QAM Label Comments: TAKE 1 TABLET BY MOUTH ONCE DAILY DIRECTED isosorbide mononitrate 60 mg Tablet Extended Release 24 Hr 60 mg PO DAILY alprazolam 0.25 mg tablet 0.25 mg PO TID PRN (Reason: Unknown) Label Comments: TAKE 1 TABLET BY MOUTH THREE TIMES DAILY NEEDED FOR ANXIETY magnesium oxide 400 mg (241.3 mg magnesium) Tablet 400 mg PO DAILY tamsulosin [Flomax] 0.4 mg Capsule 0.4 mg PO DAILY levothyroxine 150 mcg tablet 150 mcg PO QAM Label Comments: TAKE 1 TABLET BY MOUTH IN THE MORNING BEFORE BREAKFAST ON AN EMPTY STOMACH carbidopa-levodopa [Sinemet] 25-100 mg Tablet 1 tab PO TID melatonin 10 mg Tablet 10 mg PO HS Anoro Ellipta 62.5-25 mcg/actuation blister with device 1 ea INHALATION QPM Label Comments: INHALE 1 PUFF BY MOUTH ONCE DAILY Held aspirin 81 mg Tablet,Delayed Release (Dr/Ec) 81 mg PO QAM Hold Instructions: hold until advised by PCP Eliquis 5 mg tablet 5 mg PO BID Hold Instructions: Resume on 05/19/22. Other Ambulatory Orders: Basic Metabolic Panel (Routine) Timeframe: 20220519 Location: Determined by Patient Ordered By: Janusz Davidson Complete Blood Count Auto Diff (Routine) Timeframe: 20220519 Location: Determined by Patient Ordered By: Janusz Davidson Follow Up: Andi Ware MD [Active Staff] - (Call office on Sunday to schedule follow-up with Urologist. ) Janusz Davidson DO [Active Staff - D.O.] - Bill Mcgee MD [Active Staff] - Mona Baker MD [Primary Care Provider] - (Call office on Sunday to schedule follow-up with your Primary Care Provider in 3-5 days. ) Documented By: Janusz Davidson DO 05/14/22 14 59 Signed By: <Electronically signed by Janusz Davidson DO> 05/14/[address] [place] [address] Work Phone: 1(446) 178-786012-11-2022 Progress note Author Bill Mcgee [facility] May 14, 2022 11:29am Note Date/Time May 14, 2022 11:29am [facility] [address] [place] [address] Gastroenterology PN Signed Patient: José Luis Faulkner MR #: [id number] : 1950 Acct:[id number] Age/Sex: 71 / M Adm Date: 2 Loc: Room: [address] [place] [address] Type: ADM INOo Attending Dr: Janusz Davidson DO Copies to: MD Mona Barakat MD, DO~ Date of Service: 05/14/2022 Subjective Subjective Narrative: No further bleeding overnight. No BM yet today Exam Physical Exam Vital Signs: Temp Pulse Resp BP Pulse Ox O2 Del Method O2 Flow Rate 97.2 F L 60 16 116/63 98 Room Air 3 05/14/22 08:00 05/14/22 08:22 05/14/22 08:22 05/14/22 08:00 05/14/22 08:00 05/14/22 08:28 05/14/22 08:00 Objective Allergies and Medications Allergies/Adverse Reactions: Allergies Allergy/AdvReac Type Severity Reaction Status Date / Time No Known Allergies Allergy Verified 05/12/22 10:55 Active Meds: Active Medications Generic Name Dose Route Start Last Admin Trade Name Freq PRN Reason Stop Dose Admin Albuterol 2.5 mg 05/12/22 15:06 Albuterol Neb 2.5 Mg/3 Ml Vial.Neb INHALATION 05/12/23 15:05 Q4H PRN Shortness Of Breath Or Wheezing Alprazolam 0.25 mg 05/12/22 13:26 Alprazolam 0.25 Mg Tablet PO 11/08/22 13:25 TID PRN Unknown Amiodarone HCl 300 mg 05/13/22 09:00 05/14/22 08:37 Amiodarone 100 Mg Tablet PO 05/13/23 08:59 300 mg QAM MELANIE Administration Amlodipine Besylate 5 mg 05/13/22 09:00 05/14/22 08:37 Amlodipine 5 Mg Tablet PO 05/13/23 08:59 5 mg QAM MELANIE Administration Amoxicillin 500 mg 05/12/22 21:00 05/14/22 08:37 Amoxicillin 500 Mg Capsule PO 500 mg BID MELANIE Administration Aripiprazole 15 mg 05/13/22 09:00 05/14/22 08:37 Aripiprazole 15 Mg Tablet PO 05/13/23 08:59 15 mg QAM MELANIE Administration Ascorbic Acid 500 mg 05/13/22 09:00 05/14/22 08:37 Ascorbic Acid 500 Mg Tablet PO 05/13/23 08:59 500 mg DAILY MELANIE Administration Atorvastatin Calcium 80 mg 05/12/22 22:00 05/13/22 22:12 Atorvastatin 80 Mg Tablet PO 05/12/23 21:59 80 mg QHS MELANIE Administration Carbidopa/Levodopa 1 tab 05/12/22 16:00 05/14/22 08:38 Carbidopa/Levodopa 25-100 Mg 1 Tab Tablet PO 05/12/23 15:59 1 tab TID@0800,1200,1600 MELANIE Administration Carvedilol 25 mg 05/12/22 21:00 05/14/22 08:37 Carvedilol 25 Mg Tablet PO 05/12/23 20:59 25 mg BID MELANIE Administration Enalapril Maleate 10 mg 05/12/22 21:00 05/14/22 08:37 Enalapril Maleate 10 Mg Tablet PO 05/12/23 20:59 10 mg BID MELANIE Administration Fluticasone Propionate 2 spray 05/12/22 13:26 Fluticasone Propionate Racine 120 Racine/16 Gm Bottle INTRANASAL 05/12/23 13:25 DAILY PRN Unknown Furosemide 40 mg 05/13/22 18:45 05/14/22 08:38 Furosemide 40 Mg/4 Ml Vial IV-PUSH 05/13/23 18:44 40 mg BID@0800,1600 MELANIE Administration Magnesium Sulfate 2 gm in 50 mls @ 25 mls/hr 05/12/22 13:30 Magnesium Sulf 2gm-*Swfi* IV 05/12/23 13:29 DAILY PRN Magnesium < 1.6 Insulin Human NPH 20 units 05/12/22 21:00 05/14/22 08:38 Insulin Nph Human Isophane 300 Units/3 Ml Insuln.Pen SUBCUT 05/12/23 20:59 20 units BID MELANIE Administration Ipratropium Howe 0.5 mg 05/12/22 16:00 05/14/22 08:22 Ipratropium Howe 0.5 Mg/2.5 Ml Vial.Neb INHALATION 05/12/23 15:59 0.5 mg QID.RESP MELANIE Administration Isosorbide Mononitrate 60 mg 05/13/22 06:00 05/14/22 05:46 Isosorbide Mononitrate 24hr Er 60 Mg Tab.Er.24h PO 05/13/23 05:59 60 mg DAILY.6A MELANIE Administration Lamotrigine 200 mg 05/13/22 09:00 05/14/22 08:38 Lamotrigine 100 Mg Tablet PO 05/13/23 08:59 200 mg QAM MELANIE Administration Levothyroxine Sodium 150 mcg 05/13/22 06:30 05/14/22 05:46 Levothyroxine 150 Mcg Tablet PO 05/13/23 06:29 150 mcg DAILY@0630 MELANIE Administration Melatonin 10 mg 05/12/22 22:00 05/13/22 22:12 Melatonin 5 Mg Tablet PO 05/12/23 21:59 10 mg QHS MELANIE Administration Nitroglycerin 0.4 mg 05/12/22 13:26 Nitroglycerin 0.4 Mg Tab.Subl SUBLINGUAL 05/12/23 13:25 Q5M PRN Chest Pain Omeprazole 20 mg 05/13/22 09:00 05/14/22 08:37 Omeprazole 20 Mg Capsule.Dr PO 05/13/23 08:59 20 mg DAILY MELANIE Administration Ondansetron HCl 4 mg 05/12/22 13:30 Ondansetron 4 Mg/2 Ml Vial IV-PUSH 05/12/23 13:29 Q4H PRN Nausea And Vomiting Potassium Chloride 40 meq 05/12/22 13:30 Potassium Chloride Er 20 Meq Tab.Er.Prt PO 05/12/23 13:29 DAILY PRN Hypokalemia Potassium Chloride 40 meq 05/12/22 13:30 Potassium Chloride Liquid 20 Meq/15 Ml Udc PO 05/12/23 13:29 DAILY PRN K < 3.8 Saccharomyces Boulardii 250 mg 05/12/22 21:00 05/14/22 08:38 Saccharomyces Boulardii 250 Mg Capsule PO 05/12/23 20:59 250 mg BID MELANIE Administration Fluticasone/Salmeterol 1 puff 05/12/22 21:00 05/14/22 08:22 Fluticasone/Salmeterol 113-14 Mcg 60 Puff Inhaler INHALATION 05/12/23 20:59 1 puff BID MELANIE Administration Sodium Chloride 0 ml 05/12/22 10:55 05/12/22 12:02 Sodium Chloride 0.9 % 10 Ml Syringe IV-PUSH 05/12/23 10:54 10 ml PRN PRN Administration Flush Tamsulosin HCl 0.4 mg 05/13/22 09:00 05/14/22 08:37 Tamsulosin 0.4 Mg Cap.Er.24h PO 05/13/23 08:59 0.4 mg DAILY MELANIE Administration Venlafaxine HCl 37.5 mg 05/12/22 21:00 05/14/22 08:37 Venlafaxine 37.5 Mg Tablet PO 05/12/23 20:59 37.5 mg BID MELANIE Administration Vitamin D 25 mcg 05/13/22 09:00 05/14/22 08:37 Cholecalciferol 25 Mcg (1,000 Units) Tablet PO 05/13/23 08:59 25 mcg DAILY MELANIE Administration A&P - Gastroenterology Assessment/Plan (1) Haemorrhage postprocedure: Status: Acute (2) Rectal bleeding: Code(s): K62.5 - Hemorrhage of anus and rectum Status: Acute (3) Acute lower GI bleeding: Code(s): K92.2 - Gastrointestinal hemorrhage, unspecified Status: Acute Plan Most likely his bleeding has stopped. I did speak with his urologist, Dr. Rico it appears he underwent transrectal bx. Mostly likely bleeding was from thisin the setting of resumption of his AC. If he has no further bleeding today, he is okay for discharge from a GI standpoint. I would recommend holding his Eliquis for an additional 5 days to allow healing in the rectum. He should continue follow up with his urologist and does not need GI follow up outpatient as this bleeding seems to have all been post-procedural. Thank you for this consult, I will peripherally follow pending discharge. Documented By: Bill Mcgee MD 05/14/221125 Signed By: <Electronically signed by Bill Mcgee MD> 05/14/221128 [facility] Work Phone: 1(298) 711-115212-10-2022 Progress note Author Janusz Davidson [facility] May 13, 2022 5:57pm Note Date/Time May 13, 2022 5:57pm [facility] [address] [place] [address] Hospitalist Progress Note Signed Patient: José Luis Faulkner MR #: [id number] : 1950 Acct:[id number] Age/Sex: 71 / M Adm Date: 2 Loc: Room: [address] [place] [address] Type: ADM INOo Attending Dr: Janusz Davidson DO Copies to: ~ Date of Service: 05/13/2022 Subjective Subjective Narrative: Patient was seen examined the bedside. No acute events overnight. He complainsof some mild left-sided facial droop that has been waxing and waning since his diagnosis of Parkinson's disease earlier this year. Physical Examination: GENERAL APPEARANCE: Alert, up in bed AAOx3 CARDIAC: Normal S1 and S2. No S3, S4 or murmurs. LUNGS: Clear to auscultation bilaterally. no wheeze/rhonchi/rales ABDOMEN: Positive bowel sounds. Soft, nontender. No guarding or signs of an acute abdomen MUSCULOSKELETAL: No joint erythema or tenderness. EXTREMITIES: No clubbing, cyanosis. 1-2+ pitting edema bilateral lower extremities. NEUROLOGICAL: No focal deficits SKIN: Skin normal color, texture and turgor with no lesions or eruptions. PSYCHIATRIC: Appropriate mood and affect Assessment and plan: 1. Lower GI bleed Hold aspirin and apixaban. CBC stable. Appreciate GI recommendations 2. Peripheral edema with history of congestive heart failure Brain natruretic peptide level is mildly elevated. No baseline to compare this to however. His chest x-ray appears stable in comparison to March 2021 film. Chronic CHF. Overall he seems to be on the volume overloaded side and received some IV fluids yesterday briefly. We will start IV Lasix monitor kidney function, electrolytes. 3. Chronic kidney disease stage III Appears to be pretty close to baseline. Will monitor with a.m. labs. 4. Atrial fibrillation Continue home amiodarone and carvedilol. Hold anticoagulation. 5. Hypothyroidism Continue home levothyroxine 150 mcg daily. 6. Parkinson's disease Mild resting tremor noted. Continue home carbidopa levodopa 1 tab 3 times daily. Exam Physical Exam Vital Signs: Temp Pulse Resp BP Pulse Ox O2 Del Method O2 Flow Rate 97.8 F 58 L 20 128/64 94 L Room Air 3 05/13/22 15:59 05/13/22 16:24 05/13/22 16:24 05/13/22 15:59 05/13/22 16:00 05/13/22 16:00 05/13/22 09:09 Objective Lab Results CBC & Chem 7: 05/13/22 04:47 05/13/22 04:47 Meds Allergies and Active Meds Allergies No Known Allergies Allergy (Verified 05/12/22 10:55) Active Meds: Active Medications Generic Name Dose Route Start Last Admin Trade Name Crystal PRN Reason Stop Dose Admin Albuterol 2.5 mg 05/12/22 15:06 Albuterol Neb 2.5 Mg/3 Ml Vial.Neb INHALATION 05/12/23 15:05 Q4H PRN Shortness Of Breath Or Wheezing Alprazolam 0.25 mg 05/12/22 13:26 Alprazolam 0.25 Mg Tablet PO 11/08/22 13:25 TID PRN Unknown Amiodarone HCl 300 mg 05/13/22 09:00 05/13/22 08:23 Amiodarone 100 Mg Tablet PO 05/13/23 08:59 300 mg QAM MELANIE Administration Amlodipine Besylate 5 mg 05/13/22 09:00 05/13/22 08:24 Amlodipine 5 Mg Tablet PO 05/13/23 08:59 5 mg QAM MELANIE Administration Amoxicillin 500 mg 05/12/22 21:00 05/13/22 08:26 Amoxicillin 500 Mg Capsule PO 500 mg BID MELANIE Administration Aripiprazole 15 mg 05/13/22 09:00 05/13/22 08:26 Aripiprazole 15 Mg Tablet PO 05/13/23 08:59 15 mg QAM MELANIE Administration Ascorbic Acid 500 mg 05/13/22 09:00 05/13/22 08:24 Ascorbic Acid 500 Mg Tablet PO 05/13/23 08:59 500 mg DAILY MELANIE Administration Atorvastatin Calcium 80 mg 05/12/22 22:00 05/12/22 21:12 Atorvastatin 80 Mg Tablet PO 05/12/23 21:59 80 mg QHS MELANIE Administration Carbidopa/Levodopa 1 tab 05/12/22 16:00 05/13/22 15:19 Carbidopa/Levodopa 25-100 Mg 1 Tab Tablet PO 05/12/23 15:59 1 tab TID@0800,1200,1600 MELANIE Administration Carvedilol 25 mg 05/12/22 21:00 05/13/22 08:24 Carvedilol 25 Mg Tablet PO 05/12/23 20:59 25 mg BID MELANIE Administration Enalapril Maleate 10 mg 05/12/22 21:00 05/13/22 08:24 Enalapril Maleate 10 Mg Tablet PO 05/12/23 20:59 10 mg BID MELANIE Administration Fluticasone Propionate 2 spray 05/12/22 13:26 Fluticasone Propionate Racine 120 Racine/16 Gm Bottle INTRANASAL 05/12/23 13:25 DAILY PRN Unknown Furosemide 40 mg 05/13/22 18:45 Furosemide 40 Mg/4 Ml Vial IV-PUSH 05/13/23 18:44 BID@0800,1600 MELANIE Magnesium Sulfate 2 gm in 50 mls @ 25 mls/hr 05/12/22 13:30 Magnesium Sulf 2gm-*Swfi* IV 05/12/23 13:29 DAILY PRN Magnesium < 1.6 Insulin Human NPH 20 units 05/12/22 21:00 05/13/22 08:26 Insulin Nph Human Isophane 300 Units/3 Ml Insuln.Pen SUBCUT 05/12/23 20:59 20 units BID MELANIE Administration Ipratropium Howe 0.5 mg 05/12/22 16:00 05/13/22 16:17 Ipratropium Howe 0.5 Mg/2.5 Ml Vial.Neb INHALATION 05/12/23 15:59 0.5 mg QID.RESP MELANIE Administration Isosorbide Mononitrate 60 mg 05/13/22 06:00 05/13/22 05:42 Isosorbide Mononitrate 24hr Er 60 Mg Tab.Er.24h PO 05/13/23 05:59 60 mg DAILY.6A MELANIE Administration Lamotrigine 200 mg 05/13/22 09:00 05/13/22 08:25 Lamotrigine 100 Mg Tablet PO 05/13/23 08:59 200 mg QAM MELANIE Administration Levothyroxine Sodium 150 mcg 05/13/22 06:30 05/13/22 05:42 Levothyroxine 150 Mcg Tablet PO 05/13/23 06:29 150 mcg DAILY@0630 MELANIE Administration Melatonin 10 mg 05/12/22 22:00 05/12/22 21:12 Melatonin 5 Mg Tablet PO 05/12/23 21:59 10 mg QHS MELANIE Administration Nitroglycerin 0.4 mg 05/12/22 13:26 Nitroglycerin 0.4 Mg Tab.Subl SUBLINGUAL 05/12/23 13:25 Q5M PRN Chest Pain Omeprazole 20 mg 05/13/22 09:00 05/13/22 08:25 Omeprazole 20 Mg Capsule.Dr PO 05/13/23 08:59 20 mg DAILY MELANIE Administration Ondansetron HCl 4 mg 05/12/22 13:30 Ondansetron 4 Mg/2 Ml Vial IV-PUSH 05/12/23 13:29 Q4H PRN Nausea And Vomiting Potassium Chloride 40 meq 05/12/22 13:30 Potassium Chloride Er 20 Meq Tab.Er.Prt PO 05/12/23 13:29 DAILY PRN Hypokalemia Potassium Chloride 40 meq 05/12/22 13:30 Potassium Chloride Liquid 20 Meq/15 Ml Udc PO 05/12/23 13:29 DAILY PRN K < 3.8 Saccharomyces Boulardii 250 mg 05/12/22 21:00 05/13/22 08:24 Saccharomyces Boulardii 250 Mg Capsule PO 05/12/23 20:59 250 mg BID MELANIE Administration Fluticasone/Salmeterol 1 puff 05/12/22 21:00 05/13/22 09:08 Fluticasone/Salmeterol 113-14 Mcg 60 Puff Inhaler INHALATION 05/12/23 20:59 1 puff BID MELANIE Administration Sodium Chloride 0 ml 05/12/22 10:55 05/12/22 12:02 Sodium Chloride 0.9 % 10 Ml Syringe IV-PUSH 05/12/23 10:54 10 ml PRN PRN Administration Flush Tamsulosin HCl 0.4 mg 05/13/22 09:00 05/13/22 08:23 Tamsulosin 0.4 Mg Cap.Er.24h PO 05/13/23 08:59 0.4 mg DAILY MELANIE Administration Venlafaxine HCl 37.5 mg 05/12/22 21:00 05/13/22 08:24 Venlafaxine 37.5 Mg Tablet PO 05/12/23 20:59 37.5 mg BID MELANIE Administration Vitamin D 25 mcg 05/13/22 09:00 05/13/22 08:24 Cholecalciferol 25 Mcg (1,000 Units) Tablet PO 05/13/23 08:59 25 mcg DAILY MELANIE Administration Documented By: Janusz Davidson DO 05/13/22 17 54 Signed By: <Electronically signed by Janusz Davidson DO> 05/13/22 7561 [facility] Work Phone: [phone] 269-956112-09-2022 History and physical note Author Janusz Davidson [facility] May 12, 2022 8:50pm Note Date/Time May 12, 2022 8 :50pm [facility] [address] [place] [address] Hospitalist H&P Signed Patient: José Luis Faulkner MR #: [id number] : 1950 Acct:[id number] Age/Sex: 71 / M Adm Date: 2 Loc: 4N Room: [address] [place] [address] Type: ADM IN Attending Dr: Janusz Davidson DO Copies to: Mona Davidson, ~ HPI DATE OF EXAMINATION: 05/12/22 CHIEF COMPLAINT: Rectal bleeding HISTORY OF PRESENT ILLNESS: This patient is a 71-year-old male who presented to the emergency department earlier today with complaints of rectal bleeding. He reportedly had a proceduredone with urology in which there was instrumentation of the rectum. Following this he had ongoing rectal bleeding that has persisted. In the emergency department he had stable vital signs and was breathing comfortably on room air. Chemistries showed mild renal insufficiency with a BUN and creatinine of 20/1.31. His daughter reports to me he has a history of chronic kidney disease stage III. Hemoglobin was reported at 9.4. Given the refractory nature of his bleeding and the fact that he takes aspirin and Eliquis he was admitted for further management of lower GI bleeding. Prior to my encounter with the patienthe was able to be seen by gastroenterology who recommended holding of his blood thinners and continued monitoring. The patient denies any increase in shortnessof breath, fatigue or dizziness. He does endorse worsening edema. He states hewas transitioned to torsemide for his kidney function but has recently had a fair degree of weight gain. Physical Examination: GENERAL APPEARANCE: Alert, up in bed AAOx3 CARDIAC: Normal S1 and S2. No S3, S4 or murmurs. LUNGS: Clear to auscultation bilaterally. no wheeze/rhonchi/rales ABDOMEN: Positive bowel sounds. Soft, nontender. No guarding or signs of an acute abdomen MUSCULOSKELETAL: No joint erythema or tenderness. EXTREMITIES: No clubbing, cyanosis. 1-2+ pitting edema bilateral lower extremities. NEUROLOGICAL: No focal deficits SKIN: Skin normal color, texture and turgor with no lesions or eruptions. PSYCHIATRIC: Appropriate mood and affect Assessment and plan: 1. Lower GI bleed Hold aspirin and apixaban. Monitor on telemetry. Check a.m. CBC. No signs of serious hemorrhage. Blood pressure and heart rate are both stable. 2. Peripheral edema with history of congestive heart failure Stop IV fluids initiated in the ED. Add on BNP level and check chest x-ray. Hehas no other symptoms of congestive heart failure at this time but he is agreeable to diuresis intravenously while inpatient to improve his recent weightgain. 3. Chronic kidney disease stage III Appears to be pretty close to baseline. Will monitor with a.m. labs. 4. Atrial fibrillation Continue home amiodarone and carvedilol. Hold anticoagulation. 5. Hypothyroidism Continue home levothyroxine 150 mcg daily. 6. Parkinson's disease Mild resting tremor noted. Continue home carbidopa levodopa 1 tab 3 times daily. Review of Systems Review of Systems All other systems reviewed & are negative unless noted below or in HPI PMFSH Vaccinated for COVID-19?: Yes Medical History (Updated 05/12/22 @ 15:52 by Bill Mcgee MD) Afib Anxiety Asthma Bipolar disorder Coronary artery disease Diabetes GERD (gastroesophageal reflux disease) Hearing impaired Hyperlipidemia Hypertension Hypothyroidism Ischemic cardiomyopathy Moderate dementia Myocardial infarct On home oxygen therapy 2-3lpm prn during the day, continuous at night Parkinson disease Seasonal allergies Sleep apnea does not uses CPAP Urinary retention Ventricular tachycardia Wears hearing aid in both ears Surgical History AICD (automatic cardioverter/defibrillator) present History of cardiac catheterization History of phacoemulsification of cataract of both eyes with intraocular lens implantation S/P CABG x 4 2000 S/P foot surgery, left h/o Charcot Stented coronary artery 2018 Family History Mother HTN (hypertension) Hyperlipidemia Colon cancer Father Prostate cancer Social History Smoking Status: Former smoker Tobacco Type: cigarettes Substance Use Type: None Social History Comments: Patient and spouse stay in in- law suite at [facility] home Meds Medications and Allergies Allergies No Known Allergies Allergy (Verified 05/12/22 10:55) Home Medications albuterol sulfate 90 mcg/actuation breath activated powder inhaler 2 puff inhalation Q4H PRN Shortness Of Breath Or Wheezing 02/05/18 [History Confirmed 05/12/22] aripiprazole 10 mg tablet (Abilify) 15 mg PO QAM bipolar disorder 02/05/18 [History Confirmed 05/12/22] aspirin 81 mg tablet,delayed release 81 mg PO QAM 02/05/18 [History Confirmed 05/12/22] atorvastatin 80 mg tablet 80 mg PO QHS hyperlipidemia 02/05/18 [History Confirmed 05/12/22] carvedilol 25 mg tablet 25 mg PO BID 02/05/18 [History Confirmed 05/12/22] cholecalciferol (vitamin D3) 25 mcg (1,000 unit) tablet (Vitamin D3) 1,000 unit PO DAILY 02/05/18 [History Confirmed 05/12/22] enalapril maleate 10 mg tablet 10 mg PO BID htn 02/05/18 [History Confirmed 05/12/22] flaxseed oil 1,000 mg capsule 1,000 mg PO QAM 02/05/18 [History Confirmed 05/12/22] insulin NPH isoph U-100 human 100 unit/mL subcutaneous suspension (Novolin N NPHU-100 Insulin isophane) 20 unit subcut BID diabetes 02/05/18 [History Confirmed 05/12/22] lamotrigine 200 mg tablet 200 mg PO QAM bipolar disorder 02/05/18 [History Confirmed 05/12/22] nitroglycerin 0.4 mg sublingual tablet 0.4 mg sublingual Q5-15M PRN Chest Pain 02/05/18 [History Confirmed 05/12/22] venlafaxine 75 mg tablet 37.5 mg PO BID bipolar disorder 02/05/18 [History Confirmed 05/12/22] Saccharomyces boulardii 250 mg capsule (Florastor) 250 mg PO BID colon health 02/24/21 [History Confirmed 05/12/22] amlodipine 5 mg tablet (Norvasc) 5 mg PO QAM 02/24/21 [History Confirmed 05/12/22] amoxicillin 500 mg capsule 500 mg PO BID h/o bone graft infection 02/24/21 [History Confirmed 05/12/22] ascorbic acid (vitamin C) 100 mg chewable tablet 300 mg PO DAILY 02/24/21 [History Confirmed 05/12/22] glimepiride 2 mg tablet 2 mg PO BID diabetes 02/24/21 [History Confirmed 05/12/22] metformin 1,000 mg tablet 1,000 mg PO BID diabetes 02/24/21 [History Confirmed 05/12/22] lndkoevvbcvd-xmw-vwlli acid-vit K-lycop 400 mcg-20 mcg-370 mcg tablet (Men's 50 Plus Multivitamin) 2 tab PO QAM 02/24/21 [History Confirmed 05/12/22] pantoprazole 40 mg tablet,delayed release 40 mg PO QAM 02/24/21 [History Confirmed 05/12/22] amiodarone 200 mg tablet (Pacerone) 300 mg PO QAM 05/10/21 [History Confirmed 05/12/22] apixaban 5 mg tablet (Eliquis) 5 mg PO BID 05/10/21 [History Confirmed 05/12/22] insulin lispro 100 unit/mL subcutaneous pen (Humalog KwikPen (U-100) Insulin) 10sliding scale dose subcut TIDWMEAL PRN dm 05/10/21 [History Confirmed 05/12/22] coenzyme Q10 100 mg capsule (Co Q-10) 100 mg PO DAILY 05/12/21 [History Confirmed 05/12/22] alprazolam 0.25 mg tablet 0.25 mg PO TID PRN Unknown 05/12/22 [History Confirmed 05/12/22] carbidopa 25 mg-levodopa 100 mg tablet (Sinemet) 1 tab PO TID 05/12/22 [History Confirmed 05/12/22] cranberry 400 mg capsule 400 mg PO BID 05/12/22 [History Confirmed 05/12/22] fluticasone propionate 50 mcg/actuation nasal spray,suspension 2 spray intranasal DAILY PRN Unknown 05/12/22 [History Confirmed 05/12/22] isosorbide mononitrate 60 mg tablet,extended release 24 hr 60 mg PO DAILY 05/12/22 [History Confirmed 05/12/22] levothyroxine 150 mcg tablet 150 mcg PO QAM 05/12/22 [History Confirmed 05/12/22] magnesium oxide 400 mg (241.3 mg magnesium) tablet 400 mg PO DAILY 05/12/22 [History Confirmed 05/12/22] melatonin 10 mg tablet 10 mg PO HS 05/12/22 [History Confirmed 05/12/22] tamsulosin 0.4 mg capsule (Flomax) 0.4 mg PO DAILY 05/12/22 [History Confirmed 05/12/22] torsemide 20 mg tablet 20 mg PO QAM 05/12/22 [History Confirmed 05/12/22] umeclidinium 62.5 mcg-vilanterol 25 mcg/actuation powdr for inhalation (Anoro Ellipta) 1 ea inhalation QPM 05/12/22 [History Confirmed 05/12/22] Exam Physical Exam Vital Signs: Temp Pulse Resp BP Pulse Ox O2 Del Method 97.6 F 58 L 18 138/62 95 Room Air 05/12/22 19:30 05/12/22 19:30 05/12/22 19:30 05/12/22 19:30 05/12/22 19:30 05/12/22 19:30 Results Lab Results Labs: Laboratory Last Values Corrected WBC 8.0 X10E3/uL (4.1-10.5) 05/12/22 11:45 Uncorrected WBC Count 8.0 x10E3/uL (4.1-10.5) 05/12/22 11:45 RBC 3.46 X10E6/uL (3.90-5.60) L 05/12/22 11:45 Hgb 9.4 g/dL (13.0-17.0) L 05/12/22 11:45 Hct 29.3 % (38.8-50.0) L 05/12/22 11:45 MCV 84.9 fl (83.5-101) 05/12/22 11:45 MCH 27.2 pg (27.5-35.2) L 05/12/22 11:45 MCHC 32.1 g/dL (32.5-35.6) L 05/12/22 11:45 RDW 15.9 % (12.0-14.8) H 05/12/22 11:45 Plt Count 264 x10E3/uL (150-450) 05/12/22 11:45 MPV 7.2 fl (6.6-10.1) 05/12/22 11:45 Neut % (Auto) 75.7 % (.) 05/12/22 11:45 Lymph % (Auto) 15.3 % (.) 05/12/22 11:45 Woods % (Auto) 5.6 % (.) 05/12/22 11:45 Eos % (Auto) 2.4 % (.) 05/12/22 11:45 Baso % (Auto) 1.0 % (.) 05/12/22 11:45 Nucleat RBC Rel Count 0.0 /100 WBC (0-0.5) 05/12/22 11:45 Neut # (Auto) 6.1 x10E3/uL (1.8-7.7) 05/12/22 11:45 Lymph # (Auto) 1.2 x10E3/uL (1.00-4.8) 05/12/22 11:45 Woods # (Auto) 0.4 x10E3/uL (0.0-0.8) 05/12/22 11:45 Eos # (Auto) 0.2 x10E3/uL (0.0-0.45) 05/12/22 11:45 Baso # (Auto) 0.1 x10E3/uL (0.0-0.2) 05/12/22 11:45 Monocyte Dist Width 17.98 % (0.00-20.00) 05/12/22 11:45 PT 19.4 Seconds (9.0-12.9) H 05/12/22 11:45 INR 1.7 05/12/22 11:45 APTT 37.3 Seconds (25.1-36.5) H 05/12/22 11:45 PHA Creatinine Clear 59.78 05/12/22 11:45 Sodium 138 mmol/L (136-146) 05/12/22 11:45 Potassium 4.3 mmol/L (3.5-5.1) 05/12/22 11:45 Chloride 100 mmol/L (95-114) 05/12/22 11:45 Carbon Dioxide 24.6 mmol/L (22.0-30.0) 05/12/22 11:45 Anion Gap 17.7 mEq/L (6.0-15.0) H 05/12/22 11:45 BUN 20 mg/dL (9-23) 05/12/22 11:45 Creatinine 1.31 mg/dL (0.64-1.27) H 05/12/22 11:45 Est GFR ( Amer) > 60 mL/Min 05/12/22 11:45 Est GFR (Non-Af Amer) 54 mL/Min 05/12/22 11:45 Glucose 174 mg/dL (70-100) H 05/12/22 11:45 POC Glucose 88 mg/dl 05/12/22 16:06 Calcium 8.9 mg/dL (8.2-10.2) 05/12/22 11:45 Total Bilirubin 0.8 mg/dL (0.3-1.2) 05/12/22 11:45 AST 22 U/L (10-42) 05/12/22 11:45 ALT 24 U/L (10-60) 05/12/22 11:45 Alkaline Phosphatase 79 U/L (32-92) 05/12/22 11:45 Total Protein 7.3 gm/dL (6.1-7.9) 05/12/22 11:45 Albumin 3.7 gm/dL (3.2-5.5) 05/12/22 11:45 Globulin 3.6 gm/dL 05/12/22 11:45 Albumin/Globulin Ratio 1.0 05/12/22 11:45 Blood Type A Positive 05/12/22 11:45 Blood Type Recheck A Positive 05/12/22 12: Antibody Screen Negative 05/12/22 11:45 Documented By: Janusz Davidson DO 05/12/22 20 43 Signed By: <Electronically signed by Janusz Davidson DO> 05/12/222049 [facility] Work Phone: [phone](665) 673-556912-09-2022 Consult note Author Bill Mcgee [facility] May 12, 2022 3:53pm Note Date/Time May 12, 2022 3 :46pm [facility] [address] [place] [address] Gastroenterology Consult Note Signed Patient: José Luis Faulkner MR #: [id number] : 1950 Acct:[id number] Age/Sex: 71 / M Adm Date: 2 Loc: 4N Room: [address] [place] [address] Type: ADM IN Attending Dr: Janusz Daivdson DO Copies to: MD Mona Barakat MD, ~ HPI Data of Consult Date of Consultation: 05/12/22 Requesting Physician: Janusz Davidson DO Consult Narrative History of present illness: Mr. Faulkner is a 71 year old male who was admitted with hematochezia. Whom Matt consulted for hematochezia. The patient has Parkinson's dementia and is not the greatest historian, however his daughter who is a nurse is at bedside and provides supplemental history. 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 Apparently these were biopsied. Per the daughter he also underwent a rectal procedure that required bowel prep by urology, she is not entirely sure but describes it as a rectal tube . The nextday he developed significant rectal bleeding with some blood clots. This continued for approximately 24 hours and he went to [facility]. He was placedin observation there and told by his urologist this was probably due to irritation and would resolve on its own. He was also evaluated by gastroenterology there who stated he did not need a scope and just needed outpatient follow-up. He has had about a gram drop in hemoglobin and continued to have rectal bleeding with passing of blood clots. He is on Eliquis. cc:: CC: Janusz Davidson DO Review of Systems Review of Systems Unobtainable due to mental condition PMFSH Vaccinated for COVID-19?: Yes Medical History (Updated 05/12/22 @ 15:52 by Bill Mcgee MD) Afib Anxiety Asthma Bipolar disorder Coronary artery disease Diabetes GERD (gastroesophageal reflux disease) Hearing impaired Hyperlipidemia Hypertension Hypothyroidism Ischemic cardiomyopathy Moderate dementia Myocardial infarct On home oxygen therapy 2-3lpm prn during the day, continuous at night Parkinson disease Seasonal allergies Sleep apnea does not uses CPAP Urinary retention Ventricular tachycardia Wears hearing aid in both ears Surgical History AICD (automatic cardioverter/defibrillator) present History of cardiac catheterization History of phacoemulsification of cataract of both eyes with intraocular lens implantation S/P CABG x 4 2000 S/P foot surgery, left h/o Charcot Stented coronary artery 2018 Family History Mother HTN (hypertension) Hyperlipidemia Colon cancer Father Prostate cancer Social History Smoking Status: Former smoker Tobacco Type: cigarettes Substance Use Type: None Social History Comments: Patient and spouse stay in in- law suite at daughters home Meds Medications and Allergies Allergies No Known Allergies Allergy (Verified 05/12/22 10:55) Home Medications albuterol sulfate 90 mcg/actuation breath activated powder inhaler 2 puff inhalation Q4H PRN Shortness Of Breath Or Wheezing 02/05/18 [History Confirmed 05/12/22] aripiprazole 10 mg tablet (Abilify) 15 mg PO QAM bipolar disorder 02/05/18 [History Confirmed 05/12/22] aspirin 81 mg tablet,delayed release 81 mg PO QAM 02/05/18 [History Confirmed 05/12/22] atorvastatin 80 mg tablet 80 mg PO QHS hyperlipidemia 02/05/18 [History Confirmed 05/12/22] carvedilol 25 mg tablet 25 mg PO BID 02/05/18 [History Confirmed 05/12/22] cholecalciferol (vitamin D3) 25 mcg (1,000 unit) tablet (Vitamin D3) 1,000 unit PO DAILY 02/05/18 [History Confirmed 05/12/22] enalapril maleate 10 mg tablet 10 mg PO BID htn 02/05/18 [History Confirmed 05/12/22] flaxseed oil 1,000 mg capsule 1,000 mg PO QAM 02/05/18 [History Confirmed 05/12/22] insulin NPH isoph U-100 human 100 unit/mL subcutaneous suspension (Novolin N NPHU-100 Insulin isophane) 20 unit subcut BID diabetes 02/05/18 [History Confirmed 05/12/22] lamotrigine 200 mg tablet 200 mg PO QAM bipolar disorder 02/05/18 [History Confirmed 05/12/22] nitroglycerin 0.4 mg sublingual tablet 0.4 mg sublingual Q5-15M PRN Chest Pain 02/05/18 [History Confirmed 05/12/22] venlafaxine 75 mg tablet 37.5 mg PO BID bipolar disorder 02/05/18 [History Confirmed 05/12/22] Saccharomyces boulardii 250 mg capsule (Florastor) 250 mg PO BID colon health 02/24/21 [History Confirmed 05/12/22] amlodipine 5 mg tablet (Norvasc) 5 mg PO QAM 02/24/21 [History Confirmed 05/12/22] amoxicillin 500 mg capsule 500 mg PO BID h/o bone graft infection 02/24/21 [History Confirmed 05/12/22] ascorbic acid (vitamin C) 100 mg chewable tablet 300 mg PO DAILY 02/24/21 [History Confirmed 05/12/22] glimepiride 2 mg tablet 2 mg PO BID diabetes 02/24/21 [History Confirmed 05/12/22] metformin 1,000 mg tablet 1,000 mg PO BID diabetes 02/24/21 [History Confirmed 05/12/22] rhhysuaqmmxx-pct-shymd acid-vit K-lycop 400 mcg-20 mcg-370 mcg tablet (Men's 50 Plus Multivitamin) 2 tab PO QAM 02/24/21 [History Confirmed 05/12/22] pantoprazole 40 mg tablet,delayed release 40 mg PO QAM 02/24/21 [History Confirmed 05/12/22] amiodarone 200 mg tablet (Pacerone) 300 mg PO QAM 05/10/21 [History Confirmed 05/12/22] apixaban 5 mg tablet (Eliquis) 5 mg PO BID 05/10/21 [History Confirmed 05/12/22] insulin lispro 100 unit/mL subcutaneous pen (Humalog KwikPen (U-100) Insulin) 10sliding scale dose subcut TIDWMEAL PRN dm 05/10/21 [History Confirmed 05/12/22] coenzyme Q10 100 mg capsule (Co Q-10) 100 mg PO DAILY 05/12/21 [History Confirmed 05/12/22] alprazolam 0.25 mg tablet 0.25 mg PO TID PRN Unknown 05/12/22 [History Confirmed 05/12/22] carbidopa 25 mg-levodopa 100 mg tablet (Sinemet) 1 tab PO TID 05/12/22 [History Confirmed 05/12/22] cranberry 400 mg capsule 400 mg PO BID 05/12/22 [History Confirmed 05/12/22] fluticasone propionate 50 mcg/actuation nasal spray,suspension 2 spray intranasal DAILY PRN Unknown 05/12/22 [History Confirmed 05/12/22] isosorbide mononitrate 60 mg tablet,extended release 24 hr 60 mg PO DAILY 05/12/22 [History Confirmed 05/12/22] levothyroxine 150 mcg tablet 150 mcg PO QAM 05/12/22 [History Confirmed 05/12/22] magnesium oxide 400 mg (241.3 mg magnesium) tablet 400 mg PO DAILY 05/12/22 [History Confirmed 05/12/22] melatonin 10 mg tablet 10 mg PO HS 05/12/22 [History Confirmed 05/12/22] tamsulosin 0.4 mg capsule (Flomax) 0.4 mg PO DAILY 05/12/22 [History Confirmed 05/12/22] torsemide 20 mg tablet 20 mg PO QAM 05/12/22 [History Confirmed 05/12/22] umeclidinium 62.5 mcg-vilanterol 25 mcg/actuation powdr for inhalation (Anoro Ellipta) 1 ea inhalation QPM 05/12/22 [History Confirmed 05/12/22] Exam Physical Exam Vital Signs: Temp Pulse Resp BP Pulse Ox O2 Del Method 97.8 F 60 18 132/69 96 Room Air 05/12/22 15:19 05/12/22 15:19 05/12/22 15:19 05/12/22 15:19 05/12/22 15:19 05/12/22 15:19 Const General: cooperative and comfortable HEENT Head: normocephalic and atraumatic Eyes Sclera: sclerae normal EOM: EOM intact bilaterally Neck Neck: normal visual inspection and trachea midline Resp Effort & Inspection: normal respiratory effort and able to speak in complete sentences GI Palpation: soft and nontender Other: On ERNESTINE in the right lateral decubitus position he has mucosal defect along the anterior rectal wall. There is some old blood in the rectal vault with scant bright red blood. Skin General: turgor normal and dry skin Neuro General: patient alert and patient awake Results Labs Labs: Laboratory Results - last 24 hr 05/12/22 05/12/22 05/12/22 11:45 11:45 11:45 Corrected WBC 8.0 Uncorrected WBC Count 8.0 RBC 3.46 L Hgb 9.4 L Hct 29.3 L MCV 84.9 MCH 27.2 L MCHC 32.1 L RDW 15.9 H Plt Count 264 MPV 7.2 Neut % (Auto) 75.7 Lymph % (Auto) 15.3 Woods % (Auto) 5.6 Eos % (Auto) 2.4 Baso % (Auto) 1.0 Nucleat RBC Rel Count 0.0 Neut # (Auto) 6.1 Lymph # (Auto) 1.2 Woods # (Auto) 0.4 Eos # (Auto) 0.2 Baso # (Auto) 0.1 Monocyte Dist Width 17.98 PT 19.4 H INR 1.7 APTT 37.3 H PHA Creatinine Clear 59.78 Sodium 138 Potassium 4.3 Chloride 100 Carbon Dioxide 24.6 Anion Gap 17.7 H BUN 20 Creatinine 1.31 H Est GFR ( Amer) > 60 Est GFR (Non-Af Amer) 54 Glucose 174 H Calcium 8.9 Total Bilirubin 0.8 AST 22 ALT 24 Alkaline Phosphatase 79 Total Protein 7.3 Albumin 3.7 Globulin 3.6 Albumin/Globulin Ratio 1.0 Blood Type Blood Type Recheck Antibody Screen 05/12/22 05/12/22 11:45 12:20 Corrected WBC Uncorrected WBC Count RBC Hgb Hct MCV MCH MCHC RDW Plt Count MPV Neut % (Auto) Lymph % (Auto) Woods % (Auto) Eos % (Auto) Baso % (Auto) Nucleat RBC Rel Count Neut # (Auto) Lymph # (Auto) Woods # (Auto) Eos # (Auto) Baso # (Auto) Monocyte Dist Width PT INR APTT PHA Creatinine Clear Sodium Potassium Chloride Carbon Dioxide Anion Gap BUN Creatinine Est GFR ( Amer) Est GFR (Non-Af Amer) Glucose Calcium Total Bilirubin AST ALT Alkaline Phosphatase Total Protein Albumin Globulin Albumin/Globulin Ratio Blood Type A Positive Blood Type Recheck A Positive Antibody Screen Negative A&P - Gastroenterology Assessment/Plan (1) Rectal bleeding: Code(s): K62.5 - Hemorrhage of anus and rectum Status: Acute (2) Haemorrhage postprocedure: Status: Acute Plan It is not entirely clear the procedure that he underwent. I suspect he may haveundergone transrectal biopsy and this is what has caused his bleeding while on Eliquis. There is only scant bright red blood in the rectal vault with palpablemucosal defect along the anterior wall of the rectum. I suspect the bleeding isslowing down at this point. I will try to contact his urologist Dr. Ware and obtain his operative report. -We will recommend we hold his aspirin and Eliquis through the weekend, monitor for further bleeding -If he continues to bleed through the then can consider flexible sigmoidoscopy for possible defect closure on Sunday. Thank you for this consult, I will peripherally follow through the . Documented By: Bill Mcgee MD 05/12/22 1536 Signed By: <Electronically signed by Bill Mcgee MD> 05/12/22 [id number] [facility] Work Phone: [phone] 103-808811-30-2022 NotePROCEDURE: XR FOOT LT MIN 3 VIEWS HISTORY: Pain in left foot COMPARISON: XR foot left 03/10/2022 FINDINGS: BONES:Mechanical fusion of the hindfoot, midfoot, and first tarsal-metatarsal joint via multiple screws and medial plate. Loss of plantar arch. SOFT TISSUES:Mild soft tissue swelling. EFFUSION:None visible. OTHER: Negative. IMPRESSION: 1. Stable surgical changes and advanced degenerative changes; no appreciable hardware fracture or acute bone abnormality. Electronically authenticated by: TERRY SHETTY Date: 2022-05-03 07:09[facility]10-20-2022 Evaluation + Plan note Future Scheduled Tests Laboratory* PSA Total 03/23/22 [facility]10-20-2022 Hospital Discharge instructions Patient Education 03/23/2022 09:56:58 Prostate Cancer Screening Prostate Cancer Screening The prostate is a walnut-sized gland that is located below the bladder and in front of the rectum in males. The function of the prostate (prostate gland) is to add fluid to semen during ejaculation. Prostate cancer is the second most common type of cancer in men. A screening test for cancer is a test that is done before cancer symptoms start. Screening can helpto identify cancer at an early stage, when the cancer can be treated more easily. The recommended prostate cancer screening test is a blood test called the prostate-specific antigen (PSA) test. PSA is a protein that is made in the prostate. As you age, your prostate naturally produces more PSA. Abnormally high PSA levels may be caused by: Prostate cancer. An enlarged prostate that is not caused by cancer (benign prostatic hyperplasia, BPH). This condition is very common in older men. A prostate gland infection (prostatitis). Medicines to assist with hair growth, such as finasteride. Depending on the PSA results, you may need more tests, such as: A physical exam to check the size of your prostate gland. Blood and imaging tests. A procedure to remove tissue samples from your prostate gland for testing (biopsy). Who should have screening? Screening recommendations vary based on age. If you are younger than age 40, screening is not recommended. If you are age 40 54 and you have no risk factors, screening is not recommended. If you are younger than age 55, ask your health care provider if you need screening if you have oneof these risk factors: ?Being of -[place] descent. ?Having a family history of prostate cancer. If you are age 55 69, talk with your health care provider about your need for screening and how often screening should be done. If you are older than age 70, screening is not recommended. This is because the risks that screening can cause are greater than the benefits that it may provide (risks outweigh the benefits). If you are at high risk for prostate cancer, your health care provider may recommend that you have screenings more often or start screening at a younger age. You may be at high risk if you: Are older than age 55. Are -Vincentian. Have a father, brother, or uncle who has been diagnosed with prostate cancer. The risk may be higher if your family member's cancer occurred at an early age. What are the benefits of screening? There is a small chance that screening may lower your risk of dying from prostate cancer. The chance is small because prostate cancer is typically a slow-growing cancer, and most men with prostate cancer from a different cause. What are the risks of screening? The main risk of prostate cancer screening is diagnosing and treating prostate cancer that would never have caused any symptoms or problems (overdiagnosis and overtreatment). PSA screening cannot tell you if your PSA is high due to cancer or a different cause. A prostate biopsy is the only procedure to diagnose prostate cancer. Even the results of a biopsy may not tell you if your cancer needs johnny treated. Slow-growing prostate cancer may not need any treatment other than monitoring, so diagnosing and treating it may cause unnecessary stress or other side effects. A prostate biopsy may also cause: Infection or fever. A false negative. This is a result that shows that you do not have prostate cancer when you actually do have prostate cancer. Questions to ask your health care provider When should I start prostate cancer screening? What is my risk for prostate cancer? How often do I need screening? What type of screening tests do I need? How do I get my test results? What do my results mean? Do I need treatment? Contact a health care provider if: You have difficulty urinating. You have pain when you urinate or ejaculate. You have blood in your urine or semen. You have pain in your back or in the area of your prostate. You have trouble getting or maintaining an erection (erectile dysfunction, ED). Summary Prostate cancer is a common type of cancer in men. The prostate (prostate gland) is located below the bladder and in front of the rectum. This gland adds fluid to semen during ejaculation. Prostate cancer screening may identify cancer at an early stage, when the cancer can be treated more easily. The prostate-specific antigen (PSA) test is the recommended screening test for prostate cancer. Discuss the risks and benefits of prostate cancer screening with your health care provider. If you are age 70 or older, screening is likely to lead to more risks than benefits (risks outweigh the benefits). This information is not intended to replace advice given to you by your health care provider. Make sure you discuss any questions you have with your health care provider. Document Released: 03/01/2018 Document Revised: 05/03/2018 Document Reviewed: 03/01/2018 [employer] Patient Education 2020 [employer]. [facility] 10-14-2022 Hospital Discharge instructions Follow Up Care 03/17/2022 12:37:20 With:Caterina BROUSSARD, Nicolás Chavez, PUL, AYAH Address: When:6 months [facility]10-07-2022 NotePROCEDURE: XR FOOT LT MIN 3 VIEWS COMPARISON: 11/04/2021 HISTORY: Pain FINDINGS: BONES:Stable postsurgical changes with subtalar fusion utilizing 2 screws. Forefoot, midfoot hindfoot fusion with multiple plates and screws . No acute fracture, dislocation or mechanical failure. There is lateral subluxation of the metatarsals in relation to the tarsal bones, unchanged SOFT TISSUES:Negative. No visible soft tissue swelling. EFFUSION:None visible. OTHER: Negative. IMPRESSION: Stable postsurgical and degenerative changes Electronically authenticated by: ENOC BACA Date: 2022-03-10 10:54[facility]10-06-2022 Hospital Discharge instructions Patient Education 03/09/2022 15:32:50 Acute Urinary Retention, Male, Woms-yy-Wesc Acute Urinary Retention, Male Acute urinary retention means that you cannot pee (urinate) at all, or that you pee too little and your bladder is not emptied completely. If it is not treated, it can lead to kidney damage or other serious problems. Follow these instructions at home: Take mlgd-bwa-wmdijma and prescription medicines only as told by your doctor. Ask your doctor what medicines you should stay away from. Do not take any medicine unless your doctor says it is okay to do so. If you were sent home with a tube that drains the bladder (catheter), take care of it as told by your doctor. Drink enough fluid to keep your pee clear or pale yellow. If you were given an antibiotic, take it as told by your doctor. Do not stop taking the antibiotic even if you start to feel better. Do not use any products that contain nicotine or tobacco, such as cigarettes and e-cigarettes. If you need help quitting, ask your doctor. Watch for changes in your symptoms. Tell your doctor about them. If told, track changes in your blood pressure at home. Tell your doctor about them. Keep all follow-up visits as told by your doctor. This is important. Contact a doctor if: You have spasms or you leak pee when you have spasms. Get help right away if: You have chills or a fever. You have a tube that drains the bladder and: ?The tube stops draining pee. ?The tube falls out. You have blood in your pee. Summary Acute urinary retention means that you have problems peeing. It may mean that you cannot pee at all, or that you pee too little. If this condition is not treated, it can lead to kidney damage or other serious problems. If you were sent home with a tube that drains the bladder, take care of it as told by your doctor. Monitor any changes in your symptoms. Tell your doctor about any changes. This information is not intended to replace advice given to you by your health care provider. Make sure you discuss any questions you have with your health care provider. Document Released: 11/06/2008 Document Revised: 08/07/2019 Document Reviewed: 06/22/2017 [employer] Patient Education 2020 [employer]. 03/09/2022 15:32:45 Paraphimosis Paraphimosis Paraphimosis is a serious condition that happens when the fold of skin that stretches over the tip of the penis (foreskin) becomes stuck when it is pulled back. This condition blocks blood from flowing away from the penis tip, and that causes swelling that gets worse and worse. Paraphimosis needs to be treated right away. What are the causes? This condition may be caused by: Leaving the foreskin pulled back after a procedure, such as after the placement of a catheter. A foreskin that is tighter than normal. A foreskin that has been pulled back for too long. A forceful pulling back of the foreskin. Infection under the foreskin. Trauma to the area, such as a hard hit to the tip of the penis. Having sex or masturbating. Hair or clothing that gets wrapped around the penis. What increases the risk? You are more likely to develop this condition if you: Have not had all of your foreskin removed. Have had frequent urological procedures. Have poor hygiene. Need help with daily hygiene from a caregiver. What are the signs or symptoms? Symptoms of this condition include: A foreskin that cannot be returned to its normal position. Pain, often at the tip of the penis. Swelling of the penis. Trouble urinating. Skin that is red or bluish at the tip of the penis. How is this diagnosed? This condition may be diagnosed based on your symptoms and a physical exam. How is this treated? This condition may be treated with: A procedure in which your health care provider manually moves the foreskin back into position over the tip of the penis. Swelling may first be reduced by: ?Applying ice to the area. ?Wrapping a bandage tightly around the penis. ?Using needles to drain any pus or blood that is causing the swelling. ?Applying a gauze soaked with certain medicines or solutions. ?Applying granulated sugar to the area. ?Injecting medicine into the foreskin to reduce swelling. Medicine to relieve pain. Medicine may be given by mouth, through an IV, or by an injection to the base of the penis (nerve block). A procedure in which a small incision is made in the tightened foreskin to free it and allow it to be pulled back into place (dorsal slit procedure). Surgery to remove the foreskin (circumcision). This may be done if the foreskin cannot be moved back into place. Most of the time, treatment can be done in a clinic or a health care provider's office. Follow these instructions at home: Lifestyle Follow instructions from your health care provider about avoiding sexual activity. Wear loose undergarments to avoid applying pressure to the area. General instructions Take woaw-xyj-piyujzd and prescription medicines only as told by your health care provider. Apply any creams to the affected area only as told by your health care provider. Follow instructions from your health care provider about how to take care of your wound. Make sure you: ?Wash your hands with soap and water before and after you change your bandage (dressing) if you were given one. If soap and water are not available, use hand supervisor bonding. ?Ask when you should remove your dressing. ?Ask whether the area can get wet. Keep all follow-up visits as told by your health care provider. This is important. Contact a health care provider if: The treated area of skin does not heal or it becomes more irritated, red, or bloody. Urination is difficult or painful. Pain in the penis continues, even after you take medicine for pain. You develop a fever. Summary Paraphimosis is a serious condition that happens when the fold of skin that stretches over the tip of the penis (foreskin) becomes stuck when it is pulled back. Paraphimosis needs to be treated rightaway. Take daic-fct-zuibukj and prescription medicines only as told by your health care provider. Apply any creams to the affected area only as told by your health care provider. Contact a health care provider if urination is difficult or painful, or if pain in the penis continues even after you take medicine for pain. Keep all follow-up visits as told by your health care provider. This is important. This information is not intended to replace advice given to you by your health care provider. Make sure you discuss any questions you have with your health care provider. Document Released: 03/18/2010 Document Revised: 10/30/2018 Document Reviewed: 10/30/2018 [employer] Patient Education 2020 [employer]. Follow Up Care 02/08/2022 09:36:02 With:[place] PA, Lannette A, URL Address:Unknown When: Unknown [facility] 09-10-2022 Evaluation + Plan noteExtracted from: Title:Discharge Note Author:MOIRA BROUSSARD, James Campuzano e:02/11/22 Discharge To, Anticipated II - Alf Unit Discharged to - Home with family care Discharge Diet(s): Calorie Controlled- 1800 Calorie Diet (02/11/22 11:19:00) Prescriptions alprazolam 0.25 mg Tab, 0.25 mg= 1 tab(s), Oral, TID Anoro Ellipta 62.5 mcg-25 mcg inhalation powder, 1 inh, Inhalation, Daily, 5 refills carvedilol 25 mg Tab, 25 mg= 1 tab(s), Oral, BID ferrous sulfate 325 mg Tab, 325 mg= 1 tab(s), Oral, Daily, Not taking Flomax 0.4 mg Cap, 0.4 mg= 1 cap(s), Oral, Daily torsemide 20 mg Tab, 20 mg= 1 tab(s), Oral, Daily Home acetaminophen 325 mg Tab, 650 mg= 2 tab(s), Oral, q6hr, PRN aripiprazole 20 mg oral tablet, 20 mg= 1 tab(s), Oral, Daily aspirin 81 mg Oral EC Tab, 81 mg= 1 tab(s), Oral, Daily atorvastatin 80 mg Tab, 80 mg= 1 tab(s), Oral, Bedtime carbidopa-levodopa 25 mg-100 mg Tab Co-Q10 100 mg oral capsule, 100 mg= 1 cap(s), Oral, Daily Eliquis 5 mg oral tablet, 5 mg= 1 tab(s), Oral, BID enalapril 10 mg Tab, 10 mg= 1 tab(s), Oral, BID Flax Seed Oil oral capsule, 1000 mg, Oral, Daily Flomax 0.4 mg Cap, 0.4 mg= 1 cap(s), Oral, Daily Flonase 0.05 mg/inh nasal spray, 2 spray(s), Nasal, Daily Florastor 250 mg oral capsule, 250 mg= 1 cap(s), Oral, BID FLORASTOR 250MG CAP, 0 glimepiride 2 mg Tab, 2 mg= 1 tab(s), Oral, BID Humalog, See Instructions isosorbide mononitrate 60 mg ER Tab, 60 mg= 1 tab(s), Oral, Daily Lamictal 200 mg Tab, 200 mg= 1 tab(s), Oral, Bedtime levothyroxine 150 mcg (0.15 mg) Tab magnesium oxide 400 mg Tab, 400 mg= 1 tab(s), Oral, Daily melatonin 10 mg oral tablet, 10 mg= 1 tab(s), Oral, Once a day (at bedtime) metformin 1000 mg Tab, 1000 mg= 1 tab(s), Oral, BID Multivitamins and Minerals, 1 tablet, Oral, Daily Nitro 0.4 mg Tab, 1 tablet, SubLingual, q5min, PRN NovoLIN N FlexPen 100 units/mL subcutaneous suspension, 20 unit(s), SubCutaneous, BID Pantoprazole [address] Tab, 40 mg= 1 tab(s), Oral, Daily potassium chloride 10 mEq Cap-ER, 10 mEq= 1 cap(s), Oral, Daily Pro-Air HFA CFC free 90 mcg/inh MDI, 2 puff(s), Inhalation, q4hr, PRN trihexyphenidyl 2 mg Tab, 2 mg= 1 tab(s), Oral, Daily venlafaxine 75 mg Tab, 37.5 mg= 0.5 tab(s), Oral, BID Vitamin D3 1000 intl units oral tablet, 25 mcg= 1 tab(s), Oral, Daily With When Contact Information Abhay BROUSSARD, ELVER Wood Within 2 to 4 weeks [address] [place] [id number] [place] [address]- Additional Instructions: Parkinson's Disease Acute Urinary Retention, Male discharge time >30 min Extracted from: Title:APSO Note- Neurology Author:Jeff Almeida RN Date:02/10/22 Reason for consult: Multiple ASSESSMENT: 1. Parkinsonism. Could just be drug-induced parkinsonism related to the aripiprazole 20 mg daily. His right upper extremity resting tremor has vanished with the slight increase in aripiprazole. Previously he was told he has tardive dyskinesia. He does have lipsmacking movements. Mildly increased tone. The left leaning could be postural changes. 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 He is concurrently on dopamine antagonist medication and dopamine agonist medication which I find problematic. 2. Acute on chronic weakness in the left lower extremity greater than the right lower extremity. Low suspicion for statin induced myopathy, myositis, polymyalgia rheumatica. CRP is negative. CK 35. LFTs are fine. 3. Urinary retention. Relatively low suspicion for any ERP ENGINEER cause. Cannot have MRI studies here because of defibrillator. CT of thoracic spine does not show any extraneous cause of any potential myelopathy. Reflexes mildly increased in the legs compared to the upper extremities but he has no sensory level and overall does not seem myelopathic. 4. Probable dementia, subtype unclear. PLAN: 1. He will need an outpatient MRI of his brain at least somewhere after discharge if his AICD is MRI conditional. 2. The CT head was unremarkable 3. The CT thoracic spine is unremarkable 4. Continue the Sinemet 25 100 mg 3 times daily with meals for now 5. Decrease the aripiprazole from 15 mg down to 10 mg, which is half of his home dose of 20 mg. Long-term, discontinuation of this medication should be considered. It sounds like he has some previous significant manic episodes that this medication did prevent/treat though. 6. The trihexyphenidyl has been discontinued in case it is contributing to urinary retention. 7. Outpatient neurology follow-up; no other inpatient recommendations from neurology at this time 8. I did recommend to him and his daughter Stephanie, who I spoke with on the phone twice and was updated, that at some point he seek a movement disorder neurology subspecialist evaluation given the presence of dopamine blocking medications, dopamine boosting medications, the possible cervical dystonia, and history of tardive dyskinesia. 1. Weakness (R53.1: Weakness) 2. Urinary retention (R33.9: Retention of urine, unspecified) 3. Parkinsons (G20: Parkinson's disease) 4. PAF (paroxysmal atrial fibrillation) (I48.0: Paroxysmal atrial fibrillation) 5. BPH with obstruction/lower urinary tract symptoms (N40.1: Benign prostatic hyperplasia with lower urinary tract symptoms) 6. Chronic GERD (K21.9: Gastro-esophageal reflux disease without esophagitis) 7. Hyperlipidemia, unspecified (E78.5: Hyperlipidemia, unspecified) 8. Hypertension (I10: Essential (primary) hypertension) 9. Hypothyroid (E03.9: Hypothyroidism, unspecified) 10. JASMIN on CPAP (G47.33: Obstructive sleep apnea (adult) (pediatric)) 11. DM2 (diabetes mellitus, type 2) (E11.9: Type 2 diabetes mellitus without complications) 12. DVT prophylaxis (Z29.9: Encounter for prophylactic measures, unspecified) Acute systolic CHF (congestive heart failure) (I50.21: Acute systolic (congestive) heart failure) Dependence on other enabling machines and devices (Z99.89: Dependence on other enabling machines and devices) Other obstructive and reflux uropathy (N13.8: Other obstructive and reflux uropathy) Extracted from: Title:Urology Consult Note Author:Radha WARE MD Date:02/09/22 Impression and Plan Impression: #1. This gentleman has acute urinary retention. The cause of this is unknown but I am sure is in part from Parkinson's disease. Plan: #1. I would definitely keep his Suazo catheter indwelling for a solid month. As an outpatient, we will put him through cystoscopy and urodynamics and then we will be able to make a good management plan for him. 20 minutes of clinical time was spent reviewing his chart and talking with the patient. Thank you for letting me take part in his care. Extracted from: Title:Consult Note-neurology Author:Beau Aviles RN Date:02/09/22 Reason for consult: ASSESSMENT: 1. Parkinsonism. Could just be drug-induced parkinsonism related to the aripiprazole 20 mg daily. Previously he was told he has tardive dyskinesia. He does have lipsmacking movements. He has right unilateral upper extremity resting tremor. Mildly increased tone. The left leaning could be postural changes. 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 He is concurrently on dopamine antagonist medication and dopamine agonist medication which I find problematic. 2. Acute on chronic weakness in the left lower extremity greater than the right lower extremity. Low suspicion for statin induced myopathy, myositis, polymyalgia rheumatica, though the latter two have to be a consideration with the ESR being 88. 3. Urinary retention. Could be prostatic. With everything else going on we will consider ERP ENGINEER causes such as brain pathology or thoracic myelopathy. He does have mildly increased reflexes in the lower extremities compared to the uppers. 4. Probable dementia, subtype unclear. PLAN: 1. He will need an MRI if his defibrillator is compatible. Unfortunately this cannot be done here. 2. CT head is revealed CT head is reviewed and is unremarkable 3. CT thoracic spine without contrast 4. Continue the Sinemet 25 100 mg 3 times daily with meals for now 5. Decrease the aripiprazole from 20 mg daily down to 15 mg daily. Long-term, discontinuation of this medication should be considered. It sounds like he has some previous significant manic episodes that this medication did prevent/treat though. 6. Stop the trihexyphenidyl in case it is contributing to urinary retention 7. Checking a CK. ESR 88. Checking CRP. 1. Weakness (R53.1: Weakness) 2. Urinary retention (R33.9: Retention of urine, unspecified) 3. Parkinsons (G20: Parkinson's disease) 4. PAF (paroxysmal atrial fibrillation) (I48.0: Paroxysmal atrial fibrillation) 5. BPH with obstruction/lower urinary tract symptoms (N40.1: Benign prostatic hyperplasia with lower urinary tract symptoms) 6. Chronic GERD (K21.9: Gastro-esophageal reflux disease without esophagitis) 7. Hyperlipidemia, unspecified (E78.5: Hyperlipidemia, unspecified) 8. Hypertension (I10: Essential (primary) hypertension) 9. Hypothyroid (E03.9: Hypothyroidism, unspecified) 10. JASMIN on CPAP (G47.33: Obstructive sleep apnea (adult) (pediatric)) 11. DM2 (diabetes mellitus, type 2) (E11.9: Type 2 diabetes mellitus without complications) 12. DVT prophylaxis (Z29.9: Encounter for prophylactic measures, unspecified) Dependence on other enabling machines and devices (Z99.89: Dependence on other enabling machines and devices) Other obstructive and reflux uropathy (N13.8: Other obstructive and reflux uropathy) Extracted from: Title:Admission H & P Author:Gissel HINDS DO Date:02/08/22 1. Weakness (R53.1: Weakness ) Unclear cause. Will consult neurology. Will check MRI/MRA head, brain, neck without contrast. Echocardiogram. Will check vitamin B12, folate, RPR, TSH with morning labs. Will check hemoglobin A1c and fasting lipid panel for risk stratification. We will have physical therapy and Occupational Therapy work with patient. 2. Urinary retention (R33.9: Retention of urine, unspecified) Suazo catheter placed in the emergency department. Patient did have 400 mL urine retained. We will ask urology to see patient. 3. Parkinsons (G20: Parkinson's disease) Supportive care. Await neurology input 4. PAF (paroxysmal atrial fibrillation) (I48.0: Paroxysmal atrial fibrillation) Currently normal sinus rhythm. Continue DOAC 5. BPH with obstruction/lower urinary tract symptoms (N40.1: Benign prostatic hyperplasia with lower urinary tract symptoms) Resume home medications once reconciled. 6. Chronic GERD (K21.9: Gastro-esophageal reflux disease without esophagitis) Continue PPI 7. Hyperlipidemia, unspecified (E78.5: Hyperlipidemia, unspecified) Resume home statin dose 8. Hypertension (I10: Essential (primary) hypertension) Hydralazine iv prn. see orders. Resume home medications once reconciled. 9. Hypothyroid (E03.9: Hypothyroidism, unspecified) Resume home Synthroid dose 10. JASMIN on CPAP (G47.33: Obstructive sleep apnea (adult) (pediatric)) Oxygen as needed. Patient states that he is noncompliant with the CPAP. 11. DM2 (diabetes mellitus, type 2) (E11.9: Type 2 diabetes mellitus without complications) Diabetic diet. Sliding scale insulin. 12. DVT prophylaxis (Z29.9: Encounter for prophylactic measures, unspecified) SCD, DOAC Orders: acetaminophen, 650 mg = 2 tab(s), Tab, Oral, q6hr PRN Pain, Routine, Start date 02/09/22 2:02:00 EDT, 02/09/22 2:02:00 EDT albuterol-ipratropium, 3 mL, Soln-Inh, Inhalation, QID PRN Dyspnea for 30 day(s), Stop date 03/11/22 1:55:00 EDT, Routine, Start date 02/09/22 1:56:00 EDT diphenhydrAMINE, 25 mg = 1 cap(s), Cap, Oral, q6hr PRN Itching, Routine, Start date 02/09/22 2:02:00 EDT, 02/09/22 2:02:00 EDT glucose, 50 mL, Soln-IV, IV Push, Once PRN Blood glucose, Routine, Start date 02/09/22 2:00:00 EDT hydrALAZINE, 10 mg = 0.5 mL, Injection, IV Push, q6hr PRN Other (see comment), Routine, Start date 02/09/22 2:02:00 EDT, 02/09/22 2:02:00 EDT ibuprofen, 800 mg = 1 tab(s), Tab, Oral, TID PRN Pain, Routine, Start date 02/09/22 2:02:00 EDT, 02/09/22 2:02:00 EDT insulin lispro, 0-10 Units, Injection-Insulin, SubCutaneous, QIDACHS, Routine, Start date 02/09/22 7:30:00 EDT ondansetron, 4 mg = 2 mL, Injection, IV Push, q6hr PRN Nausea, Routine, Start date 02/09/22 2:02:00 EDT, 02/09/22 2:02:00 EDT promethazine, 12.5 mg = 0.5 mL, Injection, IV Push, q6hr PRN Nausea, Routine, Start date 02/09/22 2:02:00 EDT, 02/09/22 2:02:00 EDT Ambulate with Assistance Below the Knee Intermittent Pneumatic Compression Device Cardiac Monitoring Communication Order Communication Order Physician to Nursing Consult to Neurology Consult to Urology Dysphagia Screen Echo Transthoracic Complete Evaluate Need For Continued Telemetry Folate Level HgbA1c Hypoglycemia Protocol Responsive Patient Hypoglycemia Protocol Unresponsive Patient Lipid Panel MRA Head w/o Contrast MRA Neck w/o Contrast MRI Brain w/o Contrast Neurological Assessment Neurological Assessment Notify Provider Vital Signs Notify Provider Vital Signs Occupational Therapy Evaluate Patient, Develop a Plan of Care and Implement Plan Oxygen Protocol Physical Therapy Evaluate Patient, Develop a Plan of Care and Implement Plan Place in Status Precautions Resuscitation Status - Full Routine Capillary Glucose POC RPR with Conf Rfx Stroke Education Stroke Quality Measures Troponin TSH With T4fr Reflex Vital Signs Vitamin B12 Level Weight Anticipated stay less than 2 midnights. Patient will be observation status. Extracted from: Title:ED Note Author:Matthew FOOTE, Prieto Babin Justen e:02/08/22 Parkinsons (G20: Parkinson's disease) Urinary retention (R33.9: Retention of urine, unspecified) Weakness (R53.1: Weakness) Orders: Automated Diff CBC w/ Auto Diff Comprehensive Metabolic Panel CT Head or Brain w/o Contrast ED Physician consult Hospitalist for continued care eGFR Extra Blue Tube Extra SST Tube Lactic Acid Lactic Acid Sedimentation Rate Automated UA With Cult Reflex Urinary Catheter Insertion XR Chest Single View Future Appointments Appointment Date:02/13/2022 02:00:00 PM Scheduled Provider:Nicolás Diggs MD Location[facility] Appointment Type:Pulmonary Follow Up (FT) Appointment Date:02/15/2022 02:30:00 PM Scheduled Provider: Location:.[facility] Appointment Type:PUL Pulmonary Function Test (FT) Appointment Date:02/15/2022 03:30:00 PM Scheduled Provider: Location:.XRAY Appointment Type:XR Chest (FT) Appointment Date:02/20/2022 10:00:00 AM Scheduled Provider:Deshawn Salinas Location:[facility] Appointment Type:URO New Patient Future Scheduled Tests Radiology* XR Chest 2 Views 02/15/22 [facility]09-10-2022 Hospital Discharge instructions Patient Education 02/11/2022 11:20:03 Parkinson's Disease Parkinson's Disease Parkinson's disease is a type of movement disorder. It is a long-term condition that gets worse over time (is progressive). Each person with Parkinson's disease is affected differently. This condition limits your ability to control movements and move your body normally. The condition can range from mild to severe. Parkinson's disease tends to get worse slowly over several years. What are the causes? Parkinson's disease results from a loss of brain cells (neurons) that make a brain chemical called dopamine. Dopamine is needed to control movement. As the condition gets worse, neurons make less dopamine. This makes it hard to move or control your movements. The exact cause of the loss of neurons and why they make less dopamine is not known. Factors related to genes and the environment may contribute to the cause of Parkinson's disease. What increases the risk? The following factors may make you more likely to develop this condition: Being male. Being age 60 or older. Having a family history of Parkinson's disease. Having had a traumatic brain injury. Having experienced depression. Having been exposed to toxins, such as pesticides. What are the signs or symptoms? Symptoms of this condition can vary. The main symptoms are related to movement. These include: A tremor or shaking while you are resting that you cannot control. Stiffness in your neck, arms, and legs (rigidity). Slowing of movement. You may lose facial expressions and have trouble making small movements that are needed to button clothing or brush your teeth. An abnormal walk. You may walk with short, shuffling steps. Loss of balance and stability when standing. You may sway, fall backward, and have trouble making turns. Other symptoms include: Mental or cognitive changes including depression, anxiety, having false beliefs (delusions), or seeing, hearing, or feeling things that do not exist (hallucinations). Trouble speaking or swallowing. Changes in bowel or bladder functions including constipation, having to go urgently or frequently, or not being able to control your bowel or bladder. Changes in sleep habits or trouble sleeping. Parkinson's disease may be graded by severity of your condition as mild, moderate, or advanced. Parkinson's disease progression is different for everyone. You may not progress to the advanced stage. Mild Parkinson's disease involves: ?Movement problems that do not affect daily activities. ?Movement problems on one side of the body. Moderate Parkinson's disease involves: ?Movement problems on both sides of the body. ?Slowing of movement. ?Coordination and balance problems. Advanced Parkinson's disease involves: ?Extreme difficulty walking. ?Inability to live alone safely. ?Signs of dementia, such as having trouble remembering things, doing daily tasks such as getting dressed, and problem solving. How is this diagnosed? This condition is diagnosed by a specialist. A diagnosis may be made based on symptoms, your medical history, and a physical exam. You may also have brain imaging tests to check for a loss of dopamine-producing areas of the brain. How is this treated? There is no cure for Parkinson's disease. Treatment focuses on managing your symptoms. Treatment may include: Medicines. Everyone responds to medicines differently. Your response may change advisor time. Work with your health care provider to find the best medicines for you. Speech, occupational, and physical therapy. Deep brain stimulation surgery to reduce tremors and other involuntary movements. Follow these instructions at home: Medicines Take qyxp-grl-wzlycdb and prescription medicines only as told by your health care provider. Avoid taking medicines that can affect thinking, such as pain or sleeping medicines. Eating and drinking Follow instructions from your health care provider about eating or drinking restrictions. Do not drink alcohol. Activity Talk with your health care provider about if it is safe for you to drive. Do exercises as told by your health care provider or physical therapist. Lifestyle Install grab bars and railings in your home to prevent falls. Do not use any products that contain nicotine or tobacco, such as cigarettes, e- cigarettes, and chewing tobacco. If you need help quitting, ask your health care provider. Consider joining a support group for people with Parkinson's disease. General instructions Work with your health care provider to determine what you need help with and what your safety needsare. Keep all follow-up visits as told by your health care provider, including any visits with a physical therapist, speech therapist, or occupational therapist. This is important. Contact a health care provider if: Medicines do not help your symptoms. You are unsteady or have fallen at home. You need more support to function well at home. You have trouble swallowing. You have severe constipation. You are having problems with side effects from your medicines. You feel confused, anxious, or depressed. Get help right away if you: Are injured after a fall. See or hear things that are not real. Cannot swallow without choking. Have chest pain or trouble breathing. Do not feel safe at home. Have thoughts about hurting yourself or others. If you ever feel like you may hurt yourself or others, or have thoughts about taking your own life,get help right away. You can go to your nearest emergency department or call: Your local emergency services (911 in the [place] A suicide crisis helpline, such as the National Suicide Prevention Lifeline at . Thisis open 24 hours a day. Summary Parkinson's disease is a long-term condition that gets worse over time. This condition limits your ability to control your movements and move your body normally. There is no cure for Parkinson's disease. Treatment focuses on managing your symptoms. Work with your health care provider to determine what you need help with and what your safety needsare. Keep all follow-up visits as told by your health care provider, including any visits with a physical therapist, speech therapist, or occupational therapist. This is important. This information is not intended to replace advice given to you by your health care provider. Make sure you discuss any questions you have with your health care provider. Document Released: 05/18/2001 Document Revised: 08/07/2019 Document Reviewed: 08/07/2019 [employer] Patient Education 2020 [employer]. 02/11/2022 11:19:59 Acute Urinary Retention, Male Acute Urinary Retention, Male Acute urinary retention is a condition in which a person is unable to pass urine. This can last fora short time or for a long time. If left untreated, it can result in kidney damage or other seriouscomplications. What are the causes? This condition may be caused by: Obstruction or narrowing of the tube that drains the bladder (urethra). This may be caused by surgery or problems with nearby organs, such as the prostate gland, which can press or squeeze the urethra. Problems with the nerves in the bladder. These can be caused by diseases, such as multiple sclerosis, or by spinal cord injuries. Certain medicines. Tumors in the area of the pelvis, bladder, or urethra. Diabetes. Degenerative cognitive conditions such as delirium or dementia. Bladder or urinary tract infection. Constipation. Blood in the urine (hematuria). Injury to the bladder or urethra. Psychological (psychogenic) conditions. Someone may hold his urine due to trauma or because he doesnot want to use the bathroom. What increases the risk? This condition is more likely to develop in older men. As men age, their prostate may become largerand may start pressing or squeezing on the bladder or the urethra. What are the signs or symptoms? Symptoms of this condition include: Trouble urinating. Pain in the lower abdomen. Symptoms usually come on slowly over a long period of time. How is this diagnosed? This condition is diagnosed based on a physical exam and a medical history. You may also have othertests, including: An ultrasound of the bladder or kidneys or both. Blood tests. A urine analysis. Additional tests may be needed such as an MRI, kidney, or bladder function tests. How is this treated? Treatment for this condition may include: Medicines. Placing a thin, sterile tube (catheter) into the bladder to drain urine out of the body. This is called an indwelling urinary catheter. After being inserted, the catheter is held in place with a small balloon that is filled with sterile water. Urine drains from the catheter into a collection bag outside of the body. Behavioral therapy. Treatment for any underlying conditions. If needed, you may be treated in the hospital for kidney function problems or to manage other complications. Follow these instructions at home: Take xhdx-hsl-bwsbywr and prescription medicines only as told by your health care provider. Avoid certain medicines, such as decongestants, antihistamines, and some prescription medicines. Do not take any medicine unless your health care provider has approved. If you were given an indwelling urinary catheter, take care of it as told by your health care provider. Drink enough fluid to keep your urine clear or pale yellow. If you were prescribed an antibiotic, take it as told by your health care provider. Do not stop taking the antibiotic even if you start to feel better. Do not use any products that contain nicotine or tobacco, such as cigarettes and e-cigarettes. If you need help quitting, ask your health care provider. Monitor any changes in your symptoms. Tell your health care provider about any changes. If instructed, monitor your blood pressure at home. Report changes as told by your health care provider. Keep all follow-up visits as told by your health care provider. This is important. Contact a health care provider if: You have uncomfortable bladder contractions that you cannot control (spasms) or you leak urine withthe spasms. Get help right away if: You have chills or fever. You have blood in your urine. You have a catheter and: ?Your catheter stops draining urine. ?Your catheter falls out. Summary Acute urinary retention is a condition in which a person is unable to pass urine. If left untreated, it can result in kidney damage or other serious complications. The cause of this condition may include an enlarged prostate. As men age, their prostate gland may become larger and may start pressing or squeezing on the bladder or the urethra. Treatment for this condition may include medicines and placement of an indwelling urinary catheter. Monitor any changes in your symptoms. Tell your health care provider about any changes. This information is not intended to replace advice given to you by your health care provider. Make sure you discuss any questions you have with your health care provider. Document Released: 08/27/2001 Document Revised: 05/03/2018 Document Reviewed: 06/22/2017 [employer] Patient Education 2020 [employer]. Follow Up Care 02/08/2022 20:46:13 With:Abhay BROUSSARD, ELVER Wood Address: [address] [address]- When:2 to 4 weeks [facility]09-01-2022 Hospital Discharge instructions Patient Education 02/02/2022 16:55:48 Dysuria Dysuria Dysuria is pain or discomfort while urinating. The pain or discomfort may be felt in the part of your body that drains urine from the bladder (urethra) or in the surrounding tissue of the genitals. The pain may also be felt in the groin area, lower abdomen, or lower back. You may have to urinate frequently or have the sudden feeling that you have to urinate (urgency). Dysuria can affect both men and women, but it is more common in women. Dysuria can be caused by many different things, including: Urinary tract infection. Kidney stones or bladder stones. Certain sexually transmitted infections (STIs), such as chlamydia. Dehydration. Inflammation of the tissues of the vagina. Use of certain medicines. Use of certain soaps or scented products that cause irritation. Follow these instructions at home: General instructions Watch your condition for any changes. Urinate often. Avoid holding urine for long periods of time. After a bowel movement or urination, women should cleanse from front to back, using each tissue only once. Urinate after sexual intercourse. Keep all follow-up visits as told by your health care provider. This is important. If you had any tests done to find the cause of dysuria, it is up to you to get your test results. Ask your health care provider, or the department that is doing the test, when your results will be ready. Eating and drinking Drink enough fluid to keep your urine pale yellow. Avoid caffeine, tea, and alcohol. They can irritate the bladder and make dysuria worse. In men, alcohol may irritate the prostate. Medicines Take vecq-dfn-occuxzr and prescription medicines only as told by your health care provider. If you were prescribed an antibiotic medicine, take it as told by your health care provider. Do notstop taking the antibiotic even if you start to feel better. Contact a health care provider if: You have a fever. You develop pain in your back or sides. You have nausea or vomiting. You have blood in your urine. You are not urinating as often as you usually do. Get help right away if: Your pain is severe and not relieved with medicines. You cannot eat or drink without vomiting. You are confused. You have a rapid heartbeat while at rest. You have shaking or chills. You feel extremely weak. Summary Dysuria is pain or discomfort while urinating. Many different conditions can lead to dysuria. If you have dysuria, you may have to urinate frequently or have the sudden feeling that you have tourinate (urgency). Watch your condition for any changes. Keep all follow-up visits as told by your health care provider. Make sure that you urinate often and drink enough fluid to keep your urine pale yellow. This information is not intended to replace advice given to you by your health care provider. Make sure you discuss any questions you have with your health care provider. 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 I ordered Florastor given somehow this had fallen off over the last 9 months and they feel it helped with regard to the frequency and consistency of his stools. Follow-up in 6 months unless sooner appointment is needed based on how his left foot is doing. At this point time we are just simply treating with chronic suppression due to his underlying hardware Jan, Charcot foot due to diabetes mellitus (ICD-10 - E11.610) Jan, Chronic antibiotic suppression (ICD-10 - Z79.2) [facility] Other 07-29-2022 Hospital Discharge instructions Patient Education 2021 20:32:43 Shortness of Breath, Adult Shortness of Breath, Adult Shortness of breath is when a person has trouble breathing enough air or when a person feels like she or he is having trouble breathing in enough air. Shortness of breath could be a sign of a medicalproblem. Follow these instructions at home: Pay attention to any changes in your symptoms. Do not use any products that contain nicotine or tobacco, such as cigarettes, e- cigarettes, and chewing tobacco. Do not smoke. Smoking is a common cause of shortness of breath. If you need help quitting, ask yourhealth care provider. Avoid things that can irritate your airways, such as: ?Mold. ?Dust. ?Air pollution. ?Chemical fumes. ?Things that can cause allergy symptoms (allergens), if you have allergies. Keep your living space clean and free of mold and dust. Rest as needed. Slowly return to your usual activities. Take czor-tjd-nrraxwc and prescription medicines only as told by your health care provider. This includes oxygen therapy and inhaled medicines. Keep all follow-up visits as told by your health care provider. This is important. Contact a health care provider if: Your condition does not improve as soon as expected. You have a hard time doing your normal activities, even after you rest. You have new symptoms. Get help right away if: Your shortness of breath gets worse. You have shortness of breath when you are resting. You feel light-headed or you faint. You have a cough that is not controlled with medicines. You cough up blood. You have pain with breathing. You have pain in your chest, arms, shoulders, or abdomen. You have a fever. You cannot walk up stairs or exercise the way that you normally do. These symptoms may represent a serious problem that is an emergency. Do not wait to see if the symptoms will go away. Get medical help right away. Call your local emergency services (911 in the [place] Do not drive yourself to the hospital. Summary Shortness of breath is when a person has trouble breathing enough air. It can be a sign of a medical problem. Avoid things that irritate your lungs, such as smoking, pollution, mold, and dust. Pay attention to changes in your symptoms and contact your health care provider if you have a hard time completing daily activities because of shortness of breath. This information is not intended to replace advice given to you by your health care provider. Make sure you discuss any questions you have with your health care provider. Document Released: 02/13/2002 Document Revised: 10/21/2018 Document Reviewed: 10/21/2018 [employer] Patient Education 2020 [employer]. 2021 20:32:43 COVID-19: How to Protect Yourself and Others - [facility] COVID-19: How to Protect Yourself and Others Know how it spreads There is currently no vaccine to prevent coronavirus disease 2019 (COVID-19). The best way to prevent illness is to avoid being exposed to this virus. The virus is thought to spread mainly from qvqnrj-jh-qadvps. ?Between people who are in close contact with one another (within about 6 feet). ?Through respiratory droplets produced when an infected person coughs, sneezes or talks. ?These droplets can land in the mouths or noses of people who are nearby or possibly be inhaled into the lungs. ?Some recent studies have suggested that COVID-19 may be spread by people who are not showing symptoms. Everyone should Clean your hands often Wash your hands often with soap and water for at least 20 seconds especially after you have been justice public place, or after blowing your nose, coughing, or sneezing. If soap and water are not readily available, use a hand supervisor bonding that contains at least 60% alcohol. Cover all surfaces of your hands and rub them together until they feel dry. Avoid touching your eyes, nose, and mouth with unwashed hands. Avoid close contact Limit contact with others as much as possible. Avoid close contact with people who are sick. Put distance between yourself and other people. ?Remember that some people without symptoms may be able to spread virus. ?This is especially important for people who are at higher risk of getting very sick.www.cdc.gov/cor onavirus/2019-ncov/rcmv-falxu-pderzclpibr/ashdlh-ov-sgsslz-risk.html Cover your mouth and nose with a cloth face cover when around others You could spread COVID-19 to others even if you do not feel sick. Everyone should wear a cloth face covering in public settings and when around people not living in their household, especially when social distancing is difficult to maintain. ?Cloth face coverings should not be placed on young children under age 2, anyone who has trouble breathing, or is unconscious, incapacitated or otherwise unable to remove the mask without assistance. The cloth face cover is meant to protect other people in case you are infected. Do NOT use a facemask meant for a healthcare worker. Continue to keep about 6 feet between yourself and others. The cloth face cover is not a substitutefor social distancing. Cover coughs and sneezes Always cover your mouth and nose with a tissue when you cough or sneeze or use the inside of your elbow. Throw used tissues in the trash. Immediately wash your hands with soap and water for at least 20 seconds. If soap and water are not readily available, clean your hands with a hand supervisor bonding that contains at least 60% alcohol. Clean and disinfect Clean AND disinfect frequently touched surfaces daily. This includes tables, doorknobs, light switches, countertops, handles, desks, phones, keyboards, toilets, faucets, and sinks. www.cdc.gov/coronav irus/2019-ncov/gnhdysx-jwfcqyc-mubw/beyvoeichzbm-rdxq-hhru.html If surfaces are dirty, clean them: Use detergent or soap and water prior to disinfection. Then, use a household disinfectant. You can see a list of EPA-registered household disinfectants here. cdc.gov/coronavirus 12/02/2019 This information is not intended to replace advice given to you by your health care provider. Make sure you discuss any questions you have with your health care provider. Document Released: 09/16/2019 Document Revised: 12/11/2019 Document Reviewed: 12/11/2019 [employer] Patient Education 2019 [employer] 2021 20:32:43 COVID-19 Frequently Asked Questions COVID-19 Frequently Asked Questions COVID-19 (coronavirus disease) is an infection that is caused by a large family of viruses. Some viruses cause illness in people and others cause illness in animals like camels, cats, and bats. In some cases, the viruses that cause illness in animals can spread to humans. Where did the coronavirus come from? In May 2019, [place] told the World Health Organization (WHO) of several cases of lung disease (human respiratory illness). These cases were linked to an open seafood and livestock market in the city of [facility]. The link to the seafood and livestock market suggests that the virus may have spread from animals to humans. However, since that first outbreak in May, the virus has also been shownto spread from person to person. What is the name of the disease and the virus? Disease name Early on, this disease was called novel coronavirus. This is because scientists determined that thedisease was caused by a new (novel) respiratory virus. The World Health Organization (WHO) has now named the disease COVID-19, or coronavirus disease. Virus name The virus that causes the disease is called severe acute respiratory syndrome coronavirus 2 (SARS-CoV-2). More information on disease and virus naming World Health Organization (WHO): www.who.int/emergencies/diseases/uokun-xynlqowrrwu-5356/technical-g uidance/zsrnlh-dmk-ixhkefzthyx-disease-(covid-2019)-tgv-csm-cmpxz-gxwk-hnnwsj-za Who is at risk for complications from coronavirus disease? Some people may be at higher risk for complications from coronavirus disease. This includes older adults and people who have chronic diseases, such as heart disease, diabetes, and lung disease. If you are at higher risk for complications, take these extra precautions: Avoid close contact with people who are sick or have a fever or cough. Stay at least 3 6 ft (1 2 m)away from them, if possible. Wash your hands often with soap and water for at least 20 seconds. Avoid touching your face, mouth, nose, or eyes. Keep supplies on hand at home, such as food, medicine, and cleaning supplies. Stay home as much as possible. Avoid social gatherings and travel. How does coronavirus disease spread? The virus that causes coronavirus disease spreads easily from person to person (is contagious). There are also cases of community-spread disease. This means the disease has spread to: People who have no known contact with other infected people. People who have not traveled to areas where there are known cases. It appears to spread from one person to another through droplets from coughing or sneezing. Can I get the virus from touching surfaces or objects? There is still a lot that we do not know about the virus that causes coronavirus disease. Scientists are basing a lot of information on what they know about similar viruses, such as: Viruses cannot generally survive on surfaces for long. They need a human body (host) to survive. It is more likely that the virus is spread by close contact with people who are sick (direct contact), such as through: ?Shaking hands or hugging. ?Breathing in respiratory droplets that travel through the air. This can happen when an infected person coughs or sneezes on or near other people. It is less likely that the virus is spread when a person touches a surface or object that has the virus on it (indirect contact). The virus may be able to enter the body if the person touches a surface or object and then touches his or her face, eyes, nose, or mouth. Can a person spread the virus without having symptoms of the disease? It may be possible for the virus to spread before a person has symptoms of the disease, but this ismost likely not the main way the virus is spreading. It is more likely for the virus to spread by being in close contact with people who are sick and breathing in the respiratory droplets of a sick person's cough or sneeze. What are the symptoms of coronavirus disease? Symptoms vary from person to person and can range from mild to severe. Symptoms may include: Fever. Cough. Tiredness, weakness, or fatigue. Fast breathing or feeling short of breath. These symptoms can appear anywhere from 2 to 14 days after you have been exposed to the virus. If you develop symptoms, call your health care provider. People with severe symptoms may need hospital care. If I am exposed to the virus, how long does it take before symptoms start? Symptoms of coronavirus disease may appear anywhere from 2 to 14 days after a person has been exposed to the virus. If you develop symptoms, call your health care provider. Should I be tested for this virus? Your health care provider will decide whether to test you based on your symptoms, history of exposure, and your risk factors. How does a health care provider test for this virus? Health care providers will collect samples to send for testing. Samples may include: Taking a swab of fluid from the nose. Taking fluid from the lungs by having you cough up mucus (sputum) into a sterile cup. Taking a blood sample. Taking a stool or urine sample. Is there a treatment or vaccine for this virus? Currently, there is no vaccine to prevent coronavirus disease. Also, there are no medicines like antibiotics or antivirals to treat the virus. A person who becomes sick is given supportive care, which means rest and fluids. A person may also relieve his or her symptoms by using bkzl-pmc-mrwnsbi medicines that treat sneezing, coughing, and runny nose. These are the same medicines that a person takes for the common cold. If you develop symptoms, call your health care provider. People with severe symptoms may need hospital care. What can I do to protect myself and my family from this virus? You can protect yourself and your family by taking the same actions that you would take to prevent the spread of other viruses. Take the following actions: Wash your hands often with soap and water for at least 20 seconds. If soap and water are not available, use alcohol-based hand supervisor bonding. Avoid touching your face, mouth, nose, or eyes. Cough or sneeze into a tissue, sleeve, or elbow. Do not cough or sneeze into your hand or the air. ?If you cough or sneeze into a tissue, throw it away immediately and wash your hands. Disinfect objects and surfaces that you frequently touch every day. Avoid close contact with people who are sick or have a fever or cough. Stay at least 3 6 ft (1 2 m)away from them, if possible. Stay home if you are sick, except to get medical care. Call your health care provider before you get medical care. Make sure your vaccines are up to date. Ask your health care provider what vaccines you need. What should I do if I need to travel? Follow travel recommendations from your local health authority, the CDC, and WHO. Travel information and advice Centers for Disease Control and Prevention (CDC): www.cdc.gov/coronavirus/2019-ncov/travelers/index.html World Health Organization (WHO): www.who.int/emergencies/diseases/vrmdx-dnwyyqwdgqk-5619/travel-advice Know the risks and take action to protect your health You are at higher risk of getting coronavirus disease if you are traveling to areas with an outbreak or if you are exposed to travelers from areas with an outbreak. Wash your hands often and practice good hygiene to lower the risk of catching or spreading the virus. What should I do if I am sick? General instructions to stop the spread of infection Wash your hands often with soap and water for at least 20 seconds. If soap and water are not available, use alcohol-based hand supervisor bonding. Cough or sneeze into a tissue, sleeve, or elbow. Do not cough or sneeze into your hand or the air. If you cough or sneeze into a tissue, throw it away immediately and wash your hands. Stay home unless you must get medical care. Call your health care provider or local health authority before you get medical care. Avoid public areas. Do not take public transportation, if possible. If you can, wear a mask if you must go out of the house or if you are in close contact with someonewho is not sick. Keep your home clean Disinfect objects and surfaces that are frequently touched every day. This may include: ?Counters and tables. ?Doorknobs and light switches. ?Sinks and faucets. ?Electronics such as phones, remote controls, keyboards, computers, and tablets. Wash dishes in hot, soapy water or use a fire protection equipment technician. Air-dry your dishes. Wash laundry in hot water. Prevent infecting other household members Let healthy household members care for children and pets, if possible. If you have to care for children or pets, wash your hands often and wear a mask. Sleep in a different bedroom or bed, if possible. Do not share personal items, such as razors, toothbrushes, deodorant, parks, brushes, towels, and washcloths. Where to find more information Centers for Disease Control and Prevention (CDC) Information and news updates: www.cdc.gov/coronavirus/2019-ncov World Health Organization (WHO) Information and news updates: www.who.int/emergencies/diseases/pkmfo-pdatqfxtfja-7891 Coronavirus health topic: www.who.int/health-topics/coronavirus Questions and answers on COVID-19: www.who.int/news-room/q-a-detail/w-n-qpgcnffaaxord Global tracker: [employer] (AAP) Information for families: www.healthychildren.org/[place]/health-issues/conditions/chest-lungs/Pages /3478-Ydzjz-Nnvhpwerczg.aspx The coronavirus situation is changing rapidly. Check your local health authority website or the CDCand WHO websites for updates and news. When should I contact a health care provider? Contact your health care provider if you have symptoms of an infection, such as fever or cough, andyou: ?Have been near anyone who is known to have coronavirus disease. ?Have come into contact with a person who is suspected to have coronavirus disease. ?Have traveled outside of the country. When should I get emergency medical care? Get help right away by calling your local emergency services (911 in the [place] if you have: ?Trouble breathing. ?Pain or pressure in your chest. ?Confusion. ?Blue-tinged lips and fingernails. ?Difficulty waking from sleep. ?Symptoms that get worse. Let the emergency medical personnel know if you think you have coronavirus disease. Summary A new respiratory virus is spreading from person to person and causing COVID-19 (coronavirus disease). The virus that causes COVID-19 appears to spread easily. It spreads from one person to another through droplets from coughing or sneezing. Older adults and those with chronic diseases are at higher risk of disease. If you are at higher risk for complications, take extra precautions. There is currently no vaccine to prevent coronavirus disease. There are no medicines, such as antibiotics or antivirals, to treat the virus. You can protect yourself and your family by washing your hands often, avoiding touching your face, and covering your coughs and sneezes. This information is not intended to replace advice given to you by your health care provider. Make sure you discuss any questions you have with your health care provider. Document Released: 09/16/2019 Document Revised: 09/16/2019 Document Reviewed: 09/16/2019 [employer] Patient Education 2019 [employer]. 2021 20:32:43 COVID-19 COVID-19 COVID-19 is a respiratory infection that is caused by a virus called severe acute respiratory syndrome coronavirus 2 (SARS-CoV-2). The disease is also known as coronavirus disease or novel coronavirus. In some people, the virus may not cause any symptoms. In others, it may cause a serious infection. The infection can get worse quickly and can lead to complications, such as: Pneumonia, or infection of the lungs. Acute respiratory distress syndrome or ARDS. This is fluid build-up in the lungs. Acute respiratory failure. This is a condition in which there is not enough oxygen passing from thelungs to the body. Sepsis or septic shock. This is a serious bodily reaction to an infection. Blood clotting problems. Secondary infections due to bacteria or fungus. The virus that causes COVID-19 is contagious. This means that it can spread from person to person through droplets from coughs and sneezes (respiratory secretions). What are the causes? This illness is caused by a virus. You may catch the virus by: Breathing in droplets from an infected person's cough or sneeze. Touching something, like a table or a doorknob, that was exposed to the virus (contaminated) and then touching your mouth, nose, or eyes. What increases the risk? Risk for infection You are more likely to be infected with this virus if you: Live in or travel to an area with a COVID-19 outbreak. Come in contact with a sick person who recently traveled to an area with a COVID-19 outbreak. Provide care for or live with a person who is infected with COVID-19. Risk for serious illness You are more likely to become seriously ill from the virus if you: Are 65 years of age or older. Have a long-term disease that lowers your body's ability to fight infection (immunocompromised). Live in a alf or long-term care facility. Have a long-term (chronic) disease such as: ?Chronic lung disease, including chronic obstructive pulmonary disease or asthma ?Heart disease. ?Diabetes. ?Chronic kidney disease. ?Liver disease. Are obese. What are the signs or symptoms? Symptoms of this condition can range from mild to severe. Symptoms may appear any time from 2 to 14days after being exposed to the virus. They include: A fever. A cough. Difficulty breathing. Chills. Muscle pains. A sore throat. Loss of taste or smell. Some people may also have stomach problems, such as nausea, vomiting, or diarrhea. Other people may not have any symptoms of COVID-19. How is this diagnosed? This condition may be diagnosed based on: Your signs and symptoms, especially if: ?You live in an area with a COVID-19 outbreak. ?You recently traveled to or from an area where the virus is common. ?You provide care for or live with a person who was diagnosed with COVID-19. A physical exam. Lab tests, which may include: ?A nasal swab to take a sample of fluid from your nose. ?A throat swab to take a sample of fluid from your throat. ?A sample of mucus from your lungs (sputum). ?Blood tests. Imaging tests, which may include, X-rays, CT scan, or ultrasound. How is this treated? At present, there is no medicine to treat COVID-19. Medicines that treat other diseases are being used on a trial basis to see if they are effective against COVID-19. Your health care provider will talk with you about ways to treat your symptoms. For most people, the infection is mild and can be managed at home with rest, fluids, and yuyp-fxj-yquuqzc medicines. Treatment for a serious infection usually takes places in a hospital intensive care unit (ICU). It may include one or more of the following treatments. These treatments are given until your symptoms improve. Receiving fluids and medicines through an IV. Supplemental oxygen. Extra oxygen is given through a tube in the nose, a face mask, or a godwin. Positioning you to lie on your stomach (prone position). This makes it easier for oxygen to get into the lungs. Continuous positive airway pressure (CPAP) or bi-level positive airway pressure (BPAP) machine. This treatment uses mild air pressure to keep the airways open. A tube that is connected to a motor delivers oxygen to the body. Ventilator. This treatment moves air into and out of the lungs by using a tube that is placed in your windpipe. Tracheostomy. This is a procedure to create a hole in the neck so that a breathing tube can be inserted. Extracorporeal membrane oxygenation (ECMO). This procedure gives the lungs a chance to recover by taking over the functions of the heart and lungs. It supplies oxygen to the body and removes carbon dioxide. Follow these instructions at home: Lifestyle If you are sick, stay home except to get medical care. Your health care provider will tell you how long to stay home. Call your health care provider before you go for medical care. Rest at home as told by your health care provider. Do not use any products that contain nicotine or tobacco, such as cigarettes, e- cigarettes, and chewing tobacco. If you need help quitting, ask your health care provider. Return to your normal activities as told by your health care provider. Ask your health care provider what activities are safe for you. General instructions Take sleg-rcl-hxrjfcc and prescription medicines only as told by your health care provider. Drink enough fluid to keep your urine pale yellow. Keep all follow-up visits as told by your health care provider. This is important. How is this prevented? There is no vaccine to help prevent COVID-19 infection. However, there are steps you can take to protect yourself and others from this virus. To protect yourself: Do not travel to areas where COVID-19 is a risk. The areas where COVID-19 is reported change often.To identify high-risk areas and travel restrictions, check the [facility] travel website: wwwnc.cdc.gov/travel/notices If you live in, or must travel to, an area where COVID-19 is a risk, take precautions to avoid infection. ?Stay away from people who are sick. ?Wash your hands often with soap and water for 20 seconds. If soap and water are not available, usean alcohol-based hand supervisor bonding. ?Avoid touching your mouth, face, eyes, or nose. ?Avoid going out in public, follow guidance from your state and local health authorities. ?If you must go out in public, wear a cloth face covering or face mask. ?Disinfect objects and surfaces that are frequently touched every day. This may include: ?Counters and tables. ?Doorknobs and light switches. ?Sinks and faucets. ?Electronics, such as phones, remote controls, keyboards, computers, and tablets. To protect others: If you have symptoms of COVID-19, take steps to prevent the virus from spreading to others. If you think you have a COVID-19 infection, contact your health care provider right away. Tell yourhealth care team that you think you may have a COVID-19 infection. Stay home. Leave your house only to seek medical care. Do not use public transport. Do not travel while you are sick. Wash your hands often with soap and water for 20 seconds. If soap and water are not available, use alcohol-based hand supervisor bonding. Stay away from other members of your household. Let healthy household members care for children andpets, if possible. If you have to care for children or pets, wash your hands often and wear a mask.If possible, stay in your own room, separate from others. Use a different bathroom. Make sure that all people in your household wash their hands well and often. Cough or sneeze into a tissue or your sleeve or elbow. Do not cough or sneeze into your hand or into the air. Wear a cloth face covering or face mask. Where to find more information Centers for Disease Control and Prevention: www.cdc.gov/coronavirus/2019-ncov/index.html World Health Organization: www.who.int/health-topics/coronavirus Contact a health care provider if: You live in or have traveled to an area where COVID-19 is a risk and you have symptoms of the infection. You have had contact with someone who has COVID-19 and you have symptoms of the infection. Get help right away if: You have trouble breathing. You have pain or pressure in your chest. You have confusion. You have bluish lips and fingernails. You have difficulty waking from sleep. You have symptoms that get worse. These symptoms may represent a serious problem that is an emergency. Do not wait to see if the symptoms will go away. Get medical help right away. Call your local emergency services (911 in the [place] Do not drive yourself to the hospital. Let the emergency medical personnel know if you think you have COVID-19. Summary COVID-19 is a respiratory infection that is caused by a virus. It is also known as coronavirus disease or novel coronavirus. It can cause serious infections, such as pneumonia, acute respiratory distress syndrome, acute respiratory failure, or sepsis. The virus that causes COVID-19 is contagious. This means that it can spread from person to person through droplets from coughs and sneezes. You are more likely to develop a serious illness if you are 65 years of age or older, have a weak immunity, live in a alf, or have chronic disease. There is no medicine to treat COVID-19. Your health care provider will talk with you about ways to treat your symptoms. Take steps to protect yourself and others from infection. Wash your hands often and disinfect objects and surfaces that are frequently touched every day. Stay away from people who are sick and wear amask if you are sick. This information is not intended to replace advice given to you by your health care provider. Make sure you discuss any questions you have with your health care provider. Document Released: 06/26/2019 Document Revised: 10/16/2019 Document Reviewed: 06/26/2019 [employer] Patient Education 2020 [employer]. Follow Up Care 2021 15:21:06 With:Mona Baker Address: [address] [place] [address]- Business (1) When:01/02/2022 19:16:15 Comments:Follow-up with your primary care provider in 3 to 5 days. If symptoms worsen, do not improve, or new symptoms arise please report back to emergency department for further evaluation. [facility]07-26-2022 History of Present illness Narrative* Ye Lobo MD - 12/27/2021 12:46 PM EDT BEHAVIORAL HEALTH PSYCHIATRIC PROGRESS NOTE Date of service: 12/27/2021 Interval History: Seen alone in session. Patient is doing significantly better with the adjustments. Patient reports he is feeling good, denies any irritability or agitation. Patient notes no persistent racing thoughts or flight of ideas. Motor activity is now within normal. He is not feeling restless or tense. Denies any ongoing increased busyness. Speech is not pressured Denies any ongoing sadness or depressive mood symptoms feeling helpless hopeless or worthless. Patient denies any ongoing active or passive morbid thoughts denies any ongoing suicidal ideation. Patient has had no new falls. Upper extremity tremor has reduced in frequency and intensity. Current denies ongoing drug abuse. Anxiety control is good. 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 Patient has been compliant. Patient is compliant. We will stay on the plan Goals and objectives of treatment: Main mood stability Maintain good anxiety control Continue to monitor side effects Treatment compliance The following portions of the patient's history were reviewed and updated as appropriate: allergies, current medications, past family history, past medical history, past social history, past surgicalhistory and problem list. Review of Systems Constitutional: Negative. HENT: Negative. Eyes: Negative. Respiratory: Negative. Cardiovascular: Negative. Gastrointestinal: Negative. Endocrine: Negative. Genitourinary: Negative. Allergic/Immunologic: Negative. Neurological: Positive for tremors. Hematological: Negative. AIMS exam completed: No abnormal involuntary movements noted PSYCHIATRIC EXAM: Grooming & Hygiene: Age appropriate, fair eye contact, fair grooming and hygiene , patient is using a wheelchair General Behavior: Cooperative and better engaged Psychomotor Activity: Upper extremity tremor reduced in intensity and frequency Speech: Normal rate and tone Flow to Thought: Denies any ongoing racing thoughts or flight of ideas Thought Associations: Intact Content of Thought: No evidence of suicidal ideations / homicidal ideations / delusions / obsessions Mood: Better Affect: Pleasant Insight: fair Judgment: fair Orientation: alert and oriented to person, place, time Memory: Recent intact Attention: Fair Concentration: Fair Language: Average Fund of Knowledge: Average Labs/ Diagnostic Imaging reviewed: None ASSESSMENT AND PLAN: Follow-up plan was discussed with patient. 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 All relevant side effects and potential adverse effects were discussed with the patient/guardian. Standard cautions and potential benefits were discussed. FDA label and OFF label uses of medications were discussed. Patient/Guardian consented to the start/continuation of the following: Continue Abilify to 20 mg p.o. daily Continue lamotrigine 200 mg p.o. daily Continue Artane 2 mg daily p.m. Continue Xanax 0.25 mg p.o. 3 times daily as needed for anxiety Will monitor side effects and progress and adjust medications appropriately Crisis Intervention plan was discussed and agreed upon. Patient/Guardian will call 911 in case of emergency. Emergency contact information was provided to the patient/guardian. Laboratory and other tests: See orders. Psychotherapy: None Follow up as scheduled or return early if needed. School or community referral:: None Treatment Goals and Objectives discussed. Other Referrals/Consults/Psychological Testing: None Ye Lobo documented in this [id number] NotePROCEDURE: XR FOOT LT MIN 3 VIEWS HISTORY: Pain in left foot ; open wound posterior to the heel COMPARISON: XR foot left 01/26/2021 FINDINGS: BONES:Prior midfoot and hindfoot fusion without evidence of hardware fracture or loosening. Advanced degenerative changes of the midfoot. No fracture or dislocation. No findings along the posterior calcaneus to suggest osteomyelitis. SOFT TISSUES:No visible soft tissue swelling. EFFUSION:None visible. OTHER: Negative. IMPRESSION: 1. Stable surgical changes without evidence of hardware failure or change in alignment. 2. No evidence of osteomyelitis. Electronically authenticated by: TERRY SHETTY Date: 2021-11-04 17:19[facility]05-25-2022 Hospital Discharge instructions Follow Up Care 10/26/2021 09:06:29 With:Mona Baker MD Address: [address] [place] [address]- When: Unknown [facility] 05-17-2022 Evaluation + Plan noteExtracted from: Title:Discharge Note Author:James PIZARRO MD Justen e:10/18/21 1. General weakness (R53.1: Weakness) 2. Diabetes (E11.9: Type 2 diabetes mellitus without complications) 3. Hypertension (I10: Essential (primary) hypertension) 4. CKD (chronic kidney disease), stage III (N18.30: Chronic kidney disease, stage 3 unspecified) 5. Hyperlipidemia (E78.5: Hyperlipidemia, unspecified) 6. Coronary artery disease (I25.10: Atherosclerotic heart disease of [place] coronary artery without angina pectoris) 7. PAF (paroxysmal atrial fibrillation) (I48.0: Paroxysmal atrial fibrillation) 8. Bipolar depression (F31.9: Bipolar disorder, unspecified) 9. Hypothyroid (E03.9: Hypothyroidism, unspecified) 10. BPH without urinary obstruction (N40.0: Benign prostatic hyperplasia without lower urinary tract symptoms) 11. Chronic GERD (K21.9: Gastro-esophageal reflux disease without esophagitis) 12. Obesity due to excess calories (E66.09: Other obesity due to excess calories) 13. No contraindication to deep vein thrombosis (DVT) prophylaxis (Z78.9: Other specified health status) Acute systolic CHF (congestive heart failure) (I50.21: Acute systolic (congestive) heart failure) COPD without exacerbation (J44.9: Chronic obstructive pulmonary disease, unspecified) Orders: alprazolam, 0.25 mg = 1 tab(s), Oral, TID, # 9 tab(s), Refills(s) 0 good TCU Prescriptions alprazolam 0.25 mg Tab, 0.25 mg= 1 tab(s), Oral, TID Anoro Ellipta 62.5 mcg-25 mcg inhalation powder, 1 inh, Inhalation, Daily, 5 refills carvedilol 25 mg Tab, 25 mg= 1 tab(s), Oral, BID ferrous sulfate 325 mg Tab, 325 mg= 1 tab(s), Oral, TID, Not taking furosemide 40 mg Tab, 40 mg= 1 tab(s), Oral, BID spironolactone 25 mg Tab, 25 mg= 1 tab(s), Oral, BID Vitamin C 500 mg Tab, 500 mg= 1 tab(s), Oral, BIDWM Home acetaminophen 325 mg Tab, 650 mg= 2 tab(s), Oral, q6hr, PRN amiodarone 200 mg Tab, 200 mg= 1 tab(s), Oral, BID amoxicillin 500 mg Cap, 500 mg= 1 cap(s), Oral, BID aripiprazole, 15 mg, Oral, Daily, Not taking: duplication aripiprazole 20 mg oral tablet, 20 mg= 1 tab(s), Oral, Daily aspirin 81 mg Oral EC Tab, 81 mg= 1 tab(s), Oral, Daily atorvastatin 80 mg Tab, 80 mg= 1 tab(s), Oral, Bedtime Co-Q10 100 mg oral capsule, 100 mg= 1 cap(s), Oral, Daily Eliquis 5 mg oral tablet, 5 mg= 1 tab(s), Oral, BID enalapril 10 mg Tab, 10 mg= 1 tab(s), Oral, BID Flax Seed Oil oral capsule, 1000 mg, Oral, Daily Flomax 0.4 mg Cap, 0.4 mg= 1 cap(s), Oral, Daily Flonase 0.05 mg/inh nasal spray, 1 spray(s), Nasal, BID, PRN Florastor, 250 mg, Oral, BID glimepiride 2 mg Tab, 2 mg= 1 tab(s), Oral, BID Humalog, See Instructions isosorbide mononitrate 60 mg ER Tab, 60 mg= 1 tab(s), Oral, Daily Lamictal 200 mg Tab, 200 mg= 1 tab(s), Oral, Daily levothyroxine, 75 mcg, Oral, Daily magnesium oxide 400 mg Tab, 400 mg= 1 tab(s), Oral, Daily melatonin, 10 mg, Oral, Once a day (at bedtime) metformin 500 mg Tab, 1000 mg= 2 tab(s), Oral, BID Multivitamins and Minerals, 1 tablet, Oral, Daily Nitro 0.4 mg Tab, 1 tablet, SubLingual, q5min, PRN Novolin 70/30, See Instructions, Not taking: duplication Novolin 70/30, 30 unit(s), SubCutaneous, BID, Self Directed NovoLog, 10 unit(s), SubCutaneous, Daily, PRN, Not taking pantoprazole, 40 mg, Oral, Daily Pro-Air HFA CFC free 90 mcg/inh MDI, 2 puff(s), Inhalation, q4hr, PRN trihexyphenidyl 2 mg Tab, 2 mg= 1 tab(s), Oral, Daily venlafaxine 37.5 mg Tab, 37.5 mg= 1 tab(s), Oral, BID Vitamin D, [address] International_Unit, Oral, Daily With When Contact Information Mona Olivia Within 3 to [address] [place] [address]- Business (1) Additional Instructions: Weakness, [id number] Weakness, Zbwl-ha-Pnwn discharge time > 30 min Extracted from: Title:APSO Note Author:ESTHER BROUSSARD, Delvin Date: 1. General weakness (R53.1: Weakness) - recent hospital admission, failed home health, PT/OT - CRM to assist with placement 2. Diabetes (E11.9: Type 2 diabetes mellitus without complications) - 70/30, SSI 3. Hypertension (I10: Essential (primary) hypertension) - coreg, imdur 4. CKD (chronic kidney disease), stage III (N18.30: Chronic kidney disease, stage 3 unspecified) - stable 5. Hyperlipidemia (E78.5: Hyperlipidemia, unspecified) - atorvastatin 6. Coronary artery disease (I25.10: Atherosclerotic heart disease of [place] coronary artery without angina pectoris) - ASA, coreg, imdur, statin 7. PAF (paroxysmal atrial fibrillation) (I48.0: Paroxysmal atrial fibrillation) - amiodarone, eliquis 8. Bipolar depression (F31.9: Bipolar disorder, unspecified) - lamictal, effexor, abilify, xanax 9. Hypothyroid (E03.9: Hypothyroidism, unspecified) - synthroid 10. BPH without urinary obstruction (N40.0: Benign prostatic hyperplasia without lower urinary tract symptoms) - flomax 11. Chronic GERD (K21.9: Gastro-esophageal reflux disease without esophagitis) - protonix 12. Obesity due to excess calories (E66.09: Other obesity due to excess calories) - BMI 32 - lifestyle modification, outpatient PCP follow up 13. No contraindication to deep vein thrombosis (DVT) prophylaxis (Z78.9: Other specified health status) - SCDs eliquis Orders: Basic Metabolic Panel Capillary Glucose POC Capillary Glucose POC Capillary Glucose POC eGFR Extra Lav Tube Incentive Spirometry Referral to Resource Center Referral to Resource Center Extracted from: Title:APSO Note Author:Delvin SANTANA MD Date: 1. General weakness (R53.1: Weakness) - recent hospital admission, failed home health, PT/OT - CRM to assist with placement Ordered: Initial Observation Care/Day Straight Fwd 30 min [id number] 2. Diabetes (E11.9: Type 2 diabetes mellitus without complications) - 70/30, SSI 3. Hypertension (I10: Essential (primary) hypertension) - coreg, imdur 4. CKD (chronic kidney disease), stage III (N18.30: Chronic kidney disease, stage 3 unspecified) - stable 5. Hyperlipidemia (E78.5: Hyperlipidemia, unspecified) - atorvastatin 6. Coronary artery disease (I25.10: Atherosclerotic heart disease of [place] coronary artery without angina pectoris) - ASA, coreg, imdur, statin 7. PAF (paroxysmal atrial fibrillation) (I48.0: Paroxysmal atrial fibrillation) - amiodarone, eliquis 8. Bipolar depression (F31.9: Bipolar disorder, unspecified) - lamictal, effexor, abilify, xanax 9. Hypothyroid (E03.9: Hypothyroidism, unspecified) - synthroid 10. BPH without urinary obstruction (N40.0: Benign prostatic hyperplasia without lower urinary tract symptoms) - flomax 11. Chronic GERD (K21.9: Gastro-esophageal reflux disease without esophagitis) - protonix 12. Obesity due to excess calories (E66.09: Other obesity due to excess calories) - BMI 32 - lifestyle modification, outpatient PCP follow up 13. No contraindication to deep vein thrombosis (DVT) prophylaxis (Z78.9: Other specified health status) - Janie eliquis Acute systolic CHF (congestive heart failure) (I50.21: Acute systolic (congestive) heart failure) COPD without exacerbation (J44.9: Chronic obstructive pulmonary disease, unspecified) Orders: acetaminophen, 650 mg = 2 tab(s), Tab, Oral, q6hr PRN Pain, Routine, Start date 10/14/21 17:46:00 EDT, 10/14/21 17:46:00 EDT Al hydroxide/Mg hydroxide/simethicone, 30 mL, Susp-Oral, Oral, q6hr PRN Indigestion, STAT, Start date 10/14/21 17:46:00 EDT bisacodyl, 10 mg = 1 supp, Supp, Rectal, Daily PRN Constipation, Routine, Start date 10/14/21 17:48:00 EDT, 10/14/21 17:48:00 EDT glucose, 40 mL, Soln-IV, IV Push, Once PRN Blood glucose, STAT, Start date 10/14/21 17:47:00 EDT insulin lispro, 0-10 Units, Injection-Insulin, SubCutaneous, QIDACHS, Routine, Start date 10/14/21 21:00:00 EDT magnesium hydroxide, 30 mL, Susp-Oral, Oral, q6hr PRN Constipation, STAT, Start date 10/14/21 17:46:00 EDT ondansetron, 4 mg = 2 mL, Injection, IV Push, q6hr PRN Nausea, Routine, Start date 10/14/21 17:46:00 EDT, 10/14/21 17:46:00 EDT polyethylene glycol 3350, 17 gram = 1 EA, Powder-Recon, Oral, Daily, Routine, Start date 10/14/21 17:47:00 EDT, 10/14/21 17:47:00 EDT Ambulate with Assistance Basic Metabolic Panel Below the Knee Intermittent Pneumatic Compression Device Capillary Glucose POC Capillary Glucose POC Diabetic/Calorie Control Diet Hypoglycemia Protocol Responsive Patient Hypoglycemia Protocol Unresponsive Patient Intake and Output Notify Provider Vital Signs Notify Provider Vital Signs Observation Care Discharge Day Occupational Therapy Evaluate Patient, Develop a Plan of Care and Implement Plan Oxygen Protocol Physical Therapy Evaluate Patient, Develop a Plan of Care and Implement Plan Place in Status Pulse Oximetry Referral to Resource Center Routine Capillary Glucose POC Vital Signs Weight Extracted from: Title:Admission H & P Author:Delvin SANTANA MD Date :10/14/21 1. General weakness (R53.1: Weakness) - recent hospital admission, failed home health, PT/OT - CRM to assist with placement 2. Diabetes (E11.9: Type 2 diabetes mellitus without complications) - 70/30, SSI 3. Hypertension (I10: Essential (primary) hypertension) - coreg, imdur 4. CKD (chronic kidney disease), stage III (N18.30: Chronic kidney disease, stage 3 unspecified) - stable 5. Hyperlipidemia (E78.5: Hyperlipidemia, unspecified) - atorvastatin 6. Coronary artery disease (I25.10: Atherosclerotic heart disease of [place] coronary artery without angina pectoris) - ASA, coreg, imdur, statin 7. PAF (paroxysmal atrial fibrillation) (I48.0: Paroxysmal atrial fibrillation) - amiodarone, eliquis 8. Bipolar depression (F31.9: Bipolar disorder, unspecified) - lamictal, effexor, abilify, xanax 9. Hypothyroid (E03.9: Hypothyroidism, unspecified) - synthroid 10. BPH without urinary obstruction (N40.0: Benign prostatic hyperplasia without lower urinary tract symptoms) - flomax 11. Chronic GERD (K21.9: Gastro-esophageal reflux disease without esophagitis) - protonix 12. Obesity due to excess calories (E66.09: Other obesity due to excess calories) - BMI 32 - lifestyle modification, outpatient PCP follow up 13. No contraindication to deep vein thrombosis (DVT) prophylaxis (Z78.9: Other specified health status) - SCDs, eliquis pt will be admitted for observation possible discharge in next 24 hours Orders: Observation Care Discharge Day Extracted from: Title:ED Note Author:Irvin Saldivar PA-C te:10/14/21 1. General weakness (R53.1: Weakness) Orders: ED Physician consult Hospitalist for continued care Future Appointments Appointment Date:11/07/2021 12:30:00 PM Scheduled Provider: Location:[facility]ARDIO Appointment Type:PUL Pulmonary Function Test (FT) Appointment Date:11/07/2021 01:30:00 PM Scheduled Provider: Location:[facility].XRAY Appointment Type:XR Chest (FT) Appointment Date:12/08/2021 10:00:00 AM Scheduled Provider: Location:[facility]ARDIO Appointment Type:NCV ICD (FT) Future Scheduled Tests Radiology* XR Chest 2 Views 11/07/21 [facility]05-16-2022 Hospital Discharge instructions Patient Education 10/17/2021 09:37:43 Weakness, Lflv-px-Yiwn Weakness Weakness is a lack of strength. You may feel weak all over your body (generalized), or you may feelweak in one part of your body (focal). There are many potential causes of weakness. Sometimes, the cause of your weakness may not be known. Some causes of weakness can be serious, so it is important to see your doctor. Follow these instructions at home: Activity Rest as needed. Try to get enough sleep. Most adults need 7 8 hours of sleep each night. Talk to your doctor about how much sleep you need each night. Do exercises, such as arm curls and leg raises, for 30 minutes at least 2 days a week or as told byyour doctor. Think about working with a physical therapist or skills trainer to help you get stronger. General instructions Take ejua-mcy-vpwjvqk and prescription medicines only as told by your doctor. Eat a healthy, well-balanced diet. This includes: ?Proteins to build muscles, such as lean meats and fish. ?Fresh fruits and vegetables. ?Carbohydrates to boost energy, such as whole grains. Drink enough fluid to keep your pee (urine) pale yellow. Keep all follow-up visits as told by your doctor. This is important. Contact a doctor if: Your weakness does not get better or it gets worse. Your weakness affects your ability to: ?Think clearly. ?Do your normal daily activities. Get help right away if you: Have sudden weakness on one side of your face or body. Have chest pain. Have trouble breathing or shortness of breath. Have problems with your vision. Have trouble talking or swallowing. Have trouble standing or walking. Are light-headed. Pass out (lose consciousness). Summary Weakness is a lack of strength. You may feel weak all over your body or just in one part of your body. There are many potential causes of weakness. Sometimes, the cause of your weakness may not be known. Rest as needed, and try to get enough sleep. Most adults need 7 8 hours of sleep each night. Eat a healthy, well-balanced diet. This information is not intended to replace advice given to you by your health care provider. Make sure you discuss any questions you have with your health care provider. Document Released: 05/03/2009 Document Revised: 12/25/2018 Document Reviewed: 12/25/2018 [employer] Patient Education 2020 [employer] 10/17/2021 09:37:43 Weakness, Dzhv-tm-Hodb Weakness Weakness is a lack of strength. You may feel weak all over your body (generalized), or you may feelweak in one part of your body (focal). There are many potential causes of weakness. Sometimes, the cause of your weakness may not be known. Some causes of weakness can be serious, so it is important to see your doctor. Follow these instructions at home: Activity Rest as needed. Try to get enough sleep. Most adults need 7 8 hours of sleep each night. Talk to your doctor about how much sleep you need each night. Do exercises, such as arm curls and leg raises, for 30 minutes at least 2 days a week or as told byyour doctor. Think about working with a physical therapist or skills trainer to help you get stronger. General instructions Take ijis-hgz-uhjghwz and prescription medicines only as told by your doctor. Eat a healthy, well-balanced diet. This includes: ?Proteins to build muscles, such as lean meats and fish. ?Fresh fruits and vegetables. ?Carbohydrates to boost energy, such as whole grains. Drink enough fluid to keep your pee (urine) pale yellow. Keep all follow-up visits as told by your doctor. This is important. Contact a doctor if: Your weakness does not get better or it gets worse. Your weakness affects your ability to: ?Think clearly. ?Do your normal daily activities. Get help right away if you: Have sudden weakness on one side of your face or body. Have chest pain. Have trouble breathing or shortness of breath. Have problems with your vision. Have trouble talking or swallowing. Have trouble standing or walking. Are light-headed. Pass out (lose consciousness). Summary Weakness is a lack of strength. You may feel weak all over your body or just in one part of your body. There are many potential causes of weakness. Sometimes, the cause of your weakness may not be known. Rest as needed, and try to get enough sleep. Most adults need 7 8 hours of sleep each night. Eat a healthy, well-balanced diet. This information is not intended to replace advice given to you by your health care provider. Make sure you discuss any questions you have with your health care provider. Document Released: 05/03/2009 Document Revised: 12/25/2018 Document Reviewed: 12/25/2018 [employer] Patient Education 2020 [employer] Follow Up Care 10/14/2021 16:14:12 With:Mona Baker Address: [address] [place] [address]- Business (1) When:3 to 5 days [facility]05-12-2022 Hospital Discharge instructions Patient Education 10/13/2021 12:21:24 Weakness Weakness Weakness is a lack of strength. You may feel weak all over your body (generalized), or you may feelweak in one specific part of your body (focal). Common causes of weakness include: Infection and immune system disorders. Physical exhaustion. Internal bleeding or other blood loss that results in a lack of red blood cells (anemia). Dehydration. An imbalance in mineral (electrolyte) levels, such as potassium. Heart disease, circulation problems, or stroke. Other causes include: Some medicines or cancer treatment. Stress, anxiety, or depression. Nervous system disorders. Thyroid disorders. Loss of muscle strength because of age or inactivity. Poor sleep quality or sleep disorders. The cause of your weakness may not be known. Some causes of weakness can be serious, so it is important to see your health care provider. Follow these instructions at home: Activity Rest as needed. Try to get enough sleep. Most adults need 7 8 hours of quality sleep each night. Talk to your health care provider about how much sleep you need each night. Do exercises, such as arm curls and leg raises, for 30 minutes at least 2 days a week or as told byyour health care provider. This helps build muscle strength. Consider working with a physical therapist or skills trainer who can develop an exercise plan to help you gain muscle strength. General instructions Take qaji-lts-fjohwff and prescription medicines only as told by your health care provider. Eat a healthy, well-balanced diet. This includes: ?Proteins to build muscles, such as lean meats and fish. ?Fresh fruits and vegetables. ?Carbohydrates to boost energy, such as whole grains. Drink enough fluid to keep your urine pale yellow. Keep all follow-up visits as told by your health care provider. This is important. Contact a health care provider if your weakness: Does not improve or gets worse. Affects your ability to think clearly. Affects your ability to do your normal daily activities. Get help right away if you: Develop sudden weakness, especially on one side of your face or body. Have chest pain. Have trouble breathing or shortness of breath. Have problems with your vision. Have trouble talking or swallowing. Have trouble standing or walking. Are light-headed or lose consciousness. Summary Weakness is a lack of strength. You may feel weak all over your body or just in one specific part of your body. Weakness can be caused by a variety of things. In some cases, the cause may be unknown. Rest as needed, and try to get enough sleep. Most adults need 7 8 hours of quality sleep each night. Eat a healthy, well-balanced diet. This information is not intended to replace advice given to you by your health care provider. Make sure you discuss any questions you have with your health care provider. Document Released: 05/21/2006 Document Revised: 12/25/2018 Document Reviewed: 12/25/2018 [employer] Patient Education 2020 [employer]. Follow Up Care 10/06/2021 17:41:21 With:Mona Baker Address: [place] [address]- Business (1) When:10/17/2021 10:40:00 [facility]05-12-2022 Evaluation + Plan noteExtracted from: Title:APSO Note Author:Delvin SANTANA MD Date: 1. Other acute kidney failur e (N17.8: Other acute kidney failure) - secondary to pre-renal causes - Cr decreased with IVF - acute kidney injury on CKD on admission as above Ordered: Sbsq Observation Care/Day Moderate 25 min 23920 2. CKD (chronic kidney disease), stage III (N18.30: Chronic kidney disease, stage 3 unspecified) - as above 3. Constipation in male (K59.00: Constipation, unspecified) - miralax daily - dulcolax suppository daily prn d/w patient and RN, will be given today 4. Acute metabolic encephalopathy (G93.41: Metabolic encephalopathy) - secondary to above, mental status at baseline 5. General weakness (R53.1: Weakness) - secondary to above - PT/OT recommends snf, CRM to assist with placement - pt has appeal with his insurance 6. Hypertension (I10: Essential (primary) hypertension) - coreg, imdur 7. Diabetes (E11.9: Type 2 diabetes mellitus without complications) - 70/30, SSI 8. Hyperlipidemia (E78.5: Hyperlipidemia, unspecified) - atorvastatin 9. Coronary artery disease (I25.10: Atherosclerotic heart disease of [place] coronary artery without angina pectoris) - ASA, coreg, imdur, statin 10. PAF (paroxysmal atrial fibrillation) (I48.0: Paroxysmal atrial fibrillation) - amiodarone, eliquis 11. Bipolar depression (F31.9: Bipolar disorder, unspecified) - lamictal, effexor, abilify, xanax 12. Hypothyroid (E03.9: Hypothyroidism, unspecified) - synthroid 13. BPH without urinary obstruction (N40.0: Benign prostatic hyperplasia without lower urinary tract symptoms) - flomax 14. Chronic GERD (K21.9: Gastro-esophageal reflux disease without esophagitis) - protonix 15. Obesity due to excess calories (E66.09: Other obesity due to excess calories) - BMI 32 - lifestyle modification, outpatient PCP follow up 16. No contraindication to deep vein thrombosis (DVT) prophylaxis (Z78.9: Other specified health status) - SCDs, eliquis Orders: bisacodyl, 10 mg = 1 supp, Supp, Rectal, Daily PRN Constipation, Routine, Start date 10/12/21 9:17:00 EDT, 10/12/21 9:17:00 EDT polyethylene glycol 3350, 17 gram = 1 EA, Powder-Recon, Oral, Daily, Routine, Start date 10/12/21 9:28:00 EDT Discharge with Home Health Extracted from: Title:APSO Note Author:ESTHER BROUSSARD, Delvin Date: 1. Other acute kidney failur e (N17.8: Other acute kidney failure) - secondary to pre-renal causes - Cr decreased with IVF - acute kidney injury on CKD on admission as above 2. CKD (chronic kidney disease), stage III (N18.30: Chronic kidney disease, stage 3 unspecified) - as above 3. Constipation in male (K59.00: Constipation, unspecified) - miralax daily - dulcolax suppository daily prn 4. Acute metabolic encephalopathy (G93.41: Metabolic encephalopathy) - secondary to above, mental status at baseline 5. General weakness (R53.1: Weakness) - secondary to above - PT/OT recommends snf, CRM to assist with placement 6. Hypertension (I10: Essential (primary) hypertension) - coreg, imdur 7. Diabetes (E11.9: Type 2 diabetes mellitus without complications) - 70/30, SSI 8. Hyperlipidemia (E78.5: Hyperlipidemia, unspecified) - atorvastatin 9. Coronary artery disease (I25.10: Atherosclerotic heart disease of [place] coronary artery without angina pectoris) - ASA, coreg, imdur, statin 10. PAF (paroxysmal atrial fibrillation) (I48.0: Paroxysmal atrial fibrillation) - amiodarone, eliquis 11. Bipolar depression (F31.9: Bipolar disorder, unspecified) - lamictal, effexor, abilify, xanax 12. Hypothyroid (E03.9: Hypothyroidism, unspecified) - synthroid 13. BPH without urinary obstruction (N40.0: Benign prostatic hyperplasia without lower urinary tract symptoms) - flomax 14. Chronic GERD (K21.9: Gastro-esophageal reflux disease without esophagitis) - protonix 15. Obesity due to excess calories (E66.09: Other obesity due to excess calories) - BMI 32 - lifestyle modification, outpatient PCP follow up 16. No contraindication to deep vein thrombosis (DVT) prophylaxis (Z78.9: Other specified health status) - SCDs, eliquis Orders: bisacodyl, 10 mg = 1 supp, Supp, Rectal, Daily PRN Constipation, Routine, Start date 10/12/21 9:17:00 EDT, 10/12/21 9:17:00 EDT polyethylene glycol 3350, 17 gram = 1 EA, Powder-Recon, Oral, Daily, Routine, Start date 10/12/21 9:17:00 EDT, 10/12/21 9:17:00 EDT Extracted from: Title:APSO Note Author:ESTHER BROUSSARD, Delvin Date: 1. Other acute kidney failur e (N17.8: Other acute kidney failure) - secondary to pre-renal causes - Cr decreased with IVF - acute kidney injury on CKD on admission as above Ordered: Sbsq Observation Care/Day Moderate 25 min 96276 2. CKD (chronic kidney disease), stage III (N18.30: Chronic kidney disease, stage 3 unspecified) - as above 3. Acute metabolic encephalopathy (G93.41: Metabolic encephalopathy) - secondary to above, mental status at baseline 4. General weakness (R53.1: Weakness) - secondary to above - PT/OT recommends snf, CRM to assist with placement 5. Hypertension (I10: Essential (primary) hypertension) - coreg, imdur 6. Diabetes (E11.9: Type 2 diabetes mellitus without complications) - 70/30, SSI 7. Hyperlipidemia (E78.5: Hyperlipidemia, unspecified) - atorvastatin 8. Coronary artery disease (I25.10: Atherosclerotic heart disease of [place] coronary artery without angina pectoris) - ASA, coreg, imdur, statin 9. PAF (paroxysmal atrial fibrillation) (I48.0: Paroxysmal atrial fibrillation) - amiodarone, eliquis 10. Bipolar depression (F31.9: Bipolar disorder, unspecified) - lamictal, effexor, abilify, xanax 11. Hypothyroid (E03.9: Hypothyroidism, unspecified) - synthroid 12. BPH without urinary obstruction (N40.0: Benign prostatic hyperplasia without lower urinary tract symptoms) - flomax 13. Chronic GERD (K21.9: Gastro-esophageal reflux disease without esophagitis) - protonix 14. Obesity due to excess calories (E66.09: Other obesity due to excess calories) - BMI 32 - lifestyle modification, outpatient PCP follow up 15. No contraindication to deep vein thrombosis (DVT) prophylaxis (Z78.9: Other specified health status) - Janie eliquis Extracted from: Title:APSO Note Author:ESTHER BROUSSARD, Hasshantell Date: 2 1. Other acute kidney failur e (N17.8: Other acute kidney failure) - secondary to pre-renal causes - Cr decreased with IVF - acute kidney injury on CKD on admission as above 2. CKD (chronic kidney disease), stage III (N18.30: Chronic kidney disease, stage 3 unspecified) - as above 3. Acute metabolic encephalopathy (G93.41: Metabolic encephalopathy) - secondary to above, mental status at baseline 4. General weakness (R53.1: Weakness) - secondary to above - PT/OT recommends snf, CRM to assist with placement 5. Hypertension (I10: Essential (primary) hypertension) - coreg, imdur 6. Diabetes (E11.9: Type 2 diabetes mellitus without complications) - 70/30, SSI 7. Hyperlipidemia (E78.5: Hyperlipidemia, unspecified) - atorvastatin 8. Coronary artery disease (I25.10: Atherosclerotic heart disease of [place] coronary artery without angina pectoris) - ASA, coreg, imdur, statin 9. PAF (paroxysmal atrial fibrillation) (I48.0: Paroxysmal atrial fibrillation) - amiodarone, eliquis 10. Bipolar depression (F31.9: Bipolar disorder, unspecified) - lamictal, effexor, abilify, xanax 11. Hypothyroid (E03.9: Hypothyroidism, unspecified) - synthroid 12. BPH without urinary obstruction (N40.0: Benign prostatic hyperplasia without lower urinary tract symptoms) - flomax 13. Chronic GERD (K21.9: Gastro-esophageal reflux disease without esophagitis) - protonix 14. Obesity due to excess calories (E66.09: Other obesity due to excess calories) - BMI 32 - lifestyle modification, outpatient PCP follow up 15. No contraindication to deep vein thrombosis (DVT) prophylaxis (Z78.9: Other specified health status) - SCDs, eliquis Orders: alprazolam, 0.25 mg = 1 tab(s), Oral, BID, F41.9 anxiety, X 5 day(s), # 10 tab(s), Refills(s) 0 Extracted from: Title:Admission H & P Author:Gissel HINDS DO Date:10/06/21 1. Acute kidney injury super imposed on chronic kidney disease (N17.9: Acute kidney failure, unspecified) Will hold nephrotoxic drugs. Recheck with morning labs. 2. Hypoxia (R09.02: Hypoxemia) Normal pulse oximetry here in the emergency department. Will monitor as noted. 3. JASMIN (obstructive sleep apnea) (G47.33: Obstructive sleep apnea (adult) (pediatric)) Patient states that his last sleep study was about 2 to 3 years ago. States that he has compliant with his CPAP at home. Patient states that he does not use oxygen with his CPAP. We will check nocturnal pulse oximetry to see if patient becomes hypoxic during the night. Patient will likely need a formal outpatient PSG. 4. Weakness (R53.1: Weakness) Unclear cause. We will ask physical therapy and Occupational Therapy to evaluate patient. Found 5. Penile bleeding (N48.89: Other specified disorders of penis) No evidence of active bleeding. Will monitor for recurrence. Urinalysis shows no hematuria. Will send urine culture. 6. Altered mental status (R41.82: Altered mental status, unspecified) At time of my exam patient's mentation appears to be completely appropriate. Will check TSH, vitamin B12, RPR, folate, vitamin D. Supportive care. 7. CKD (chronic kidney disease), stage III (N18.30: Chronic kidney disease, stage 3 unspecified) Baseline GFR 50-60 mils per minute and 8. Atrial fibrillation (I48.91: Unspecified atrial fibrillation) Currently normal sinus rhythm. Continue home medications. Continue DOAC. 9. Benign essential HTN (I10: Essential (primary) hypertension) Hydralazine iv prn. see orders. Resume home medications with holding parameters as noted. 10. CAD (coronary artery disease) (I25.10: Atherosclerotic heart disease of [place] coronary artery without angina pectoris) No active anginal complaints. Continue beta-valerio, statin, nitrate antiplatelet, DOAC. 11. Bipolar I disorder, mild, current or most recent episode depressed, in full remission, with mixed features (F31.76: Bipolar disorder, in full remission, most recent episode depressed) Supportive care. Continue home medications 12. Chronic GERD (K21.9: Gastro-esophageal reflux disease without esophagitis) Continue PPI 13. Hyperlipemia, mixed (E78.2: Mixed hyperlipidemia) Continue statin 14. Hypothyroid (E03.9: Hypothyroidism, unspecified) Continue Synthroid 15. Insulin use (long-term) in type 2 diabetes (E11.9: Type 2 diabetes mellitus without complications) Hold oral diabetic medications because of LAWANDA. Diabetic diet. Continue insulin as ordered. 16. DVT prophylaxis (Z29.9: Encounter for prophylactic measures, unspecified) SCD, DOAC Orders: acetaminophen, 650 mg = 2 tab(s), Tab, Oral, q6hr PRN Pain, Routine, Start date 10/06/21 22:12:00 EDT, 10/06/21 22:12:00 EDT albuterol-ipratropium, 3 mL, Soln-Inh, Inhalation, QID, Routine, Start date 10/07/21 8:00:00 EDT amiodarone, 200 mg = 1 tab(s), Tab, Oral, BID, NOW, Start date 10/06/21 22:02:00 EDT, 10/06/21 22:02:00 EDT apixaban, 5 mg = 1 tab(s), Tab, Oral, BID, NOW, Start date 10/06/21 22:02:00 EDT, 10/06/21 22:02:00 EDT aripiprazole, 20 mg = 4 tab(s), Tab, Oral, Daily, Routine, Start date 10/07/21 9:00:00 EDT, 10/06/21 22:03:00 EDT aspirin, 81 mg = 1 tab(s), Tab-EC, Oral, Daily, Routine, Start date 10/07/21 9:00:00 EDT, 10/06/21 22:03:00 EDT atorvastatin, 80 mg = 2 tab(s), Tab, Oral, Bedtime, NOW, Start date 10/06/21 22:03:00 EDT, 10/06/21 22:03:00 EDT diphenhydrAMINE, 25 mg = 1 cap(s), Cap, Oral, q6hr PRN Itching, Routine, Start date 10/06/21 22:12:00 EDT, 10/06/21 22:12:00 EDT enalapril, 10 mg = 1 tab(s), Tab, Oral, Daily, Routine, Start date 10/07/21 9:00:00 EDT, 10/06/21 22:04:00 EDT glucose, 40 mL, Soln-IV, IV Push, Once PRN Blood glucose, Routine, Start date 10/06/21 22:11:00 EDT hydrALAZINE, 10 mg = 0.5 mL, Injection, IV Push, q6hr PRN Other (see comment), Routine, Start date 10/06/21 22:12:00 EDT, 10/06/21 22:12:00 EDT insulin isophane-insulin regular, 15 unit(s) = 0.15 mL, Injection-Insulin, SubCutaneous, BID, NOW, Start date 10/06/21 22:04:00 EDT, 10/06/21 22:04:00 EDT insulin lispro, 0-10 Units, Injection-Insulin, SubCutaneous, QIDACHS, Routine, Start date 10/07/21 7:30:00 EDT isosorbide dinitrate, 60 mg = 6 tab(s), Tab, Oral, Daily, Routine, Start date 10/07/21 9:00:00 EDT, 10/06/21 22:05:00 EDT lamotrigine, 200 mg = 1 tab(s), Tab, Oral, Daily, Routine, Start date 10/07/21 9:00:00 EDT, 10/06/21 22:05:00 EDT levothyroxine, 75 microgram = 1 tab(s), Tab, Oral, Daily, Routine, Start date 10/07/21 6:30:00 EDT, 10/06/21 22:05:00 EDT magnesium oxide, 400 mg = 1 tab(s), Tab, Oral, Daily, Routine, Start date 10/07/21 9:00:00 EDT, 10/06/21 22:05:00 EDT melatonin, 9 mg = 3 tab(s), Tab, Oral, Bedtime PRN Insomnia, Routine, Start date 10/06/21 22:06:00 EDT, 10/06/21 22:06:00 EDT ondansetron, 4 mg = 2 mL, Injection, IV Push, q6hr PRN Nausea, Routine, Start date 10/06/21 22:12:00 EDT, 10/06/21 22:12:00 EDT pantoprazole, 40 mg, Tab-EC, Oral, Daily, Routine, Start date 10/07/21 9:00:00 EDT, 10/06/21 22:06:00 EDT promethazine, 12.5 mg = 0.5 mL, Injection, IV Push, q6hr PRN Nausea, Routine, Start date 10/06/21 22:12:00 EDT, 10/06/21 22:12:00 EDT tamsulosin, 0.4 mg = 1 cap(s), Cap, Oral, Daily, Routine, Start date 10/07/21 9:00:00 EDT, 10/06/21 22:06:00 EDT trihexyphenidyl, 2 mg = 1 tab(s), Tab, Oral, Daily, Routine, Start date 10/07/21 9:00:00 EDT, 10/06/21 22:06:00 EDT venlafaxine, 37.5 mg = 1 tab(s), Tab, Oral, BID, Routine, Start date 10/07/21 9:00:00 EDT, 10/06/21 22:06:00 EDT Ambulate with Assistance Basic Metabolic Panel Below the Knee Intermittent Pneumatic Compression Device Cardiac Monitoring Continuous Pulse Oximetry COVID-19 ([facility] [place] Diabetic/Calorie Control Diet Education Fall Risk Folate Level Hypoglycemia Protocol Responsive Patient Hypoglycemia Protocol Unresponsive Patient Magnesium Level Notify Provider Vital Signs Notify Provider Vital Signs Occupational Therapy Evaluate Patient, Develop a Plan of Care and Implement Plan Physical Therapy Evaluate Patient, Develop a Plan of Care and Implement Plan Place in Status Precautions Precautions Rapid COVID Antigen ([facility] [place]) Resuscitation Status - Full Routine Capillary Glucose POC RPR with Conf Rfx Urine Culture Vital Signs Vitamin B12 Level Vitamin D 25 Hydroxy Weight Anticipated stay less than 2 midnights. Patient will be observation status. Extracted from: Title:ED Note Author:Cecily Manzano, Annemarie Mtz te:10/06/21 1. Altered mental status (R4 1.82: Altered mental status, unspecified) 2. Weakness (R53.1: Weakness) 3. Acute kidney injury superimposed on chronic kidney disease (N17.9: Acute kidney failure, unspecified) Chronic kidney disease, unspecified (N18.9: Chronic kidney disease, unspecified) Orders: Automated Diff Basic Metabolic Panel Blood Culture Charcoal Blood Culture Charcoal Blood Gas Art, with Lytes, Gluc, Lact CBC w/ Auto Diff Continuous Pulse Oximetry CT Head or Brain w/o Contrast Drug Screen Urine ED Cardiac Monitoring eGFR Ethanol Level Extra SST Tube Free T4 Hepatic Function Panel Magnesium Level Orthostatic Vitals Signs Oxygen Therapy PT & PTT Routine Capillary Glucose POC Troponin 0 Hr. TSH With T4fr Reflex UA With Cult Reflex XR Chest Single View Future Appointments Appointment Date:10/14/2021 07:30:00 AM Scheduled Provider:Lawson MATHIS MD Location:Extended Care Appointment Type:EC TCU Appointment Date:10/20/2021 10:30:00 AM Scheduled Provider: Location:FT.CARDIO Appointment Type:PUL Pulmonary Function Test (FT) Appointment Date:10/20/2021 11:30:00 AM Scheduled Provider: Location:FT.XRAY Appointment Type:XR Chest (FT) Appointment Date:12/08/2021 10:00:00 AM Scheduled Provider: Location:FT.CARDIO Appointment Type:NCV ICD (FT) Future Scheduled Tests Radiology* XR Chest 2 Views 10/20/21 [facility]04-28-2022 History of Present illness Narrative* Ye Lobo MD - 09/29/2021 7:31 PM EDT BEHAVIORAL HEALTH PSYCHIATRIC PROGRESS NOTE Date of service: 09/27/2021 Interval History: Seen alone in session. Patient's daughter was on phone call during the interview For the last month or so patient has not been doing well according to her daughter. Patient has been more irritable, is having difficulty falling asleep, endorses increased racing thoughts and distractibility. Daughter also reported that patient has been more argumentative. Patient speech hyperverbal and the patient reports increased psychomotor agitation. He also has increased distractibility and reduced attention span and concentration. Denies any ongoing sadness or depressive mood symptoms denies any ongoing feelings of hopelessness or helplessness. Denies any ongoing active or passive suicidal ideation. Anxiety distress is mildly elevated. Appetite is still adequate. Patient has had a couple falls recently and he is using a walker. His tremors have not increased in intensity or frequency. Denies any ongoing drug abuse. 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 Patient has been compliant. We will optimize treatment. Patient has been compliant Goals and objectives of treatment: Improve and stabilize mood Improve anxiety control Treatment compliance The following portions of the patient's history were reviewed and updated as appropriate: allergies, current medications, past family history, past medical history, past social history, past surgicalhistory and problem list. Review of Systems Constitutional: Negative. HENT: Negative. Eyes: Negative. Respiratory: Negative. Cardiovascular: Negative. Gastrointestinal: Negative. Endocrine: Negative. Genitourinary: Negative. Allergic/Immunologic: Negative. Neurological: Positive for tremors. Hematological: Negative. AIMS exam completed: No abnormal involuntary movements noted PSYCHIATRIC EXAM: Grooming & Hygiene: Age appropriate, fair eye contact, fair grooming and hygiene General Behavior: Cooperative Psychomotor Activity: Tremor right > L upper extremity, restless Speech: Hyperverbal Flow to Thought: Increased racing thoughts Thought Associations: Intact Content of Thought: No evidence of suicidal ideations / homicidal ideations / delusions / obsessions Mood: Irritable Affect: Irritable Insight: fair Judgment: fair Orientation: alert and oriented to person, place, time Memory: Recent intact Attention: Distractible Concentration: Reduced Language: Average Fund of Knowledge: Average Labs/ Diagnostic Imaging reviewed: None ASSESSMENT AND PLAN: Follow-up plan was discussed with patient. 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 Patient was to stay on the Abilify Diabetes type 2, hypertension, hyperlipidemia Current Global assessment of functionin Recommendations: Treatment Plan: Pharmacological management: Alternative medication plans were discussed with the patient/guardian. All relevant side effects and potential adverse effects were discussed with the patient/guardian. Standard cautions and potential benefits were discussed. FDA label and OFF label uses of medications were discussed. Patient/Guardian consented to the start/continuation of the following: Increase Abilify to 20 mg p.o. daily Continue lamotrigine 200 mg p.o. daily Continue Artane 2 mg daily p.m. Adjust Xanax 0.25 mg p.o. 3 times daily as needed for anxiety Will monitor side effects and progress and adjust medications appropriately Crisis Intervention plan was discussed and agreed upon. Patient/Guardian will call 911 in case of emergency. Emergency contact information was provided to the patient/guardian. Laboratory and other tests: See orders. Psychotherapy: None Follow up as scheduled or return early if needed. School or community referral:: None Treatment Goals and Objectives discussed. Other Referrals/Consults/Psychological Testing: None Ye Lobo documented in this [id number] History of Present illness Narrative* Ye Lobo MD - 06/21/2021 12:26 PM EST BEHAVIORAL HEALTH PSYCHIATRIC PROGRESS NOTE 06/21/2021 José Luis Gil, a 70 y.o. male, to reestablish care at [facility]. Patient is a previously known patient, who was under my care for 8 years at [facility] Patient is referred by Mona Baker MD . Interval History: Patient is a 70-year-old , retired white male who resides in [facility] with his spouse. Patient was under my care for almost 7 years in [facility]. Patient stated that he was seeing psychNP who stopped his Xanax and started him on BuSpar and also did not prescribe Artane. Patient reported that over the last couple of months his moods have been more unstable with feelingmore irritable, at times depressed, reported having difficulty falling asleep and staying asleep, reports mild racing thoughts and distractibility. He has been feeling helpless and worthless but denies any ongoing feelings of hopelessness or any suicidal ideation intent or plan. Appetite is okay. Patient stated that this is the most unstable he has felt in the last 4-5 years. Reported excessive worrying, stated that BuSpar is not helping but rather affecting his moods negatively. Patient reported increasing breakthrough anxiety. Reports excessive worrying has made him feel more fatigued and tired during the day. Also reports feeling more tense and restless. Denies any ongoing increased goal-directed activities. Speech was within normal limits. Patient certainly has fairly anxious affect today. Patient denies any ongoing psychotic features. Patient denies any ongoingactive homicidal ideation. Denies any ongoing drug or alcohol abuse. Patient denies any worsening of his Abilify induced Parkinson's symptoms since he was last seen in [place]. No new stressors reported. Interpersonal issues were discussed: Support was provided Medications assessed: Patient is compliant. We will discontinue BuSpar and restart him on Xanax andArtane. Patient takes very low dose of Xanax 0.25 mg p.o. twice daily and that helps his anxiety control and improves his quality of life. Patient verbalized understanding of his mild Parkinson symptoms because Abilify. Patient destabilized in the past when his dose was reduced from 15 mg daily, that keeps patient's mood fairly stable. Patient wants to continue the same dose Goals and objectives of treatment: Improve and stabilize mood Improve anxiety control Treatment compliance The following portions of the patient's history were reviewed and updated as appropriate: allergies, current medications, past family history, past medical history, past social history, past surgicalhistory and problem list. Review of Systems Constitutional: Negative. HENT: Negative. Eyes: Negative. Respiratory: Negative. Cardiovascular: Negative. Gastrointestinal: Negative. Endocrine: Negative. Genitourinary: Negative. Allergic/Immunologic: Negative. Neurological: Positive for tremors. Hematological: Negative. AIMS exam completed: No abnormal involuntary movements noted PSYCHIATRIC EXAM: Grooming & Hygiene: Age appropriate, fair eye contact, fair grooming and hygiene General Behavior: Cooperative Psychomotor Activity: Walks with a cane, mild tremor of upper extremity R>L Speech: Normal rate and tone Flow to Thought: Racing thoughts Thought Associations: Intact Content of Thought: No evidence of suicidal ideations / homicidal ideations / delusions / obsessions Mood: Irritable, anxious Affect: anxious Insight: fair Judgment: fair Orientation: alert and oriented to person, place, time Memory: Recent intact Attention: Mildly distractible Concentration: Adequate Language: Average Fund of Knowledge: Average Labs/ Diagnostic Imaging reviewed: None ASSESSMENT AND PLAN: Follow-up plan was discussed with patient. 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 All relevant side effects and potential adverse effects were discussed with the patient/guardian. Standard cautions and potential benefits were discussed. FDA label and OFF label uses of medications were discussed. Patient/Guardian consented to the start/continuation of the following: Continue Abilify 15 mg p.o. daily Continue lamotrigine 200 mg p.o. daily Discontinue BuSpar Restart Artane 2 mg daily p.m. Restart Xanax 0.25 mg p.o. twice daily Will monitor side effects and progress and adjust medications appropriately Crisis Intervention plan was discussed and agreed upon. Patient/Guardian will call 911 in case of emergency. Emergency contact information was provided to the patient/guardian. Laboratory and other tests: See orders. Psychotherapy: None Follow up as scheduled or return early if needed. School or community referral:: None Treatment Goals and Objectives discussed. Other Referrals/Consults/Psychological Testing: None Ye Lobo documented in this [id number] Evaluation + Plan note Future Appointments Appointment Date:09/08/2021 10:00:00 AM Scheduled Provider: Location:FT.CARDIO Appointment Type:NCV ICD (FT) Appointment Date:10/13/2021 02:30:00 PM Scheduled Provider:Armani Yarbrough DO Location:.ONCOLOGY Appointment Type:ONC Office Visit 15 (FT) Future Scheduled Tests Laboratory* CBC w/ Auto Diff 10/11/21 * Comprehensive Metabolic Panel 10/11/21 * Ferritin 10/11/21 * Iron Level 10/11/21 * Iron Percent Saturation 10/11/21 [facility]05-09-2020 Evaluation + Plan note Future Appointments Appointment Date:08/16/2023 10:00:00 AM Scheduled Provider: Location:.CARDIO Appointment Type:NCV ICD (FT) Appointment Date:10/11/2023 02:15:00 PM Scheduled Provider:Armani Yarbrough DO Location:.ONCOLOGY Appointment Type:ONC Office Visit 30 (FT) Appointment Date:10/22/2023 10:30:00 AM Scheduled Provider:Nicolás Diggs MD Location[facility] Clinic Appointment Type:Pulmonary Follow Up (FT) Diagnostic Tests Pending * UroVysion Fish and Urine Cyto ([facility]) 07/17/23 Future Scheduled Tests Laboratory* Erythropoietin Level 07/13/23 * MARGUERITE and PE, Serum 07/13/23 * Methylmalonic Acid 07/13/23 * Free K+L Lt Chains,Qn,S 07/13/23 * CBC w/ Auto Diff 07/13/23 * CBC w/ Auto Diff 10/11/23 * Comprehensive Metabolic Panel 07/13/23 * Comprehensive Metabolic Panel 10/11/23 * Ferritin 07/13/23 * Ferritin 10/11/23 * Iron Level 07/13/23 * Iron Level 10/11/23 * Iron Percent Saturation 07/13/23 * Iron Percent Saturation 10/11/23 * Reticulocyte Count 07/13/23 * Transferrin 07/13/23 * Transferrin 10/11/23 Radiology* CT Chest w/o Contrast 04/09/23 * MRI Brain w/o Contrast 03/15/23 [facility]05-09-2020 Evaluation + Plan note Future Appointments Appointment Date:08/16/2023 10:00:00 AM Scheduled Provider: Location:.CARDIO Appointment Type:NCV ICD (FT) Appointment Date:10/11/2023 02:15:00 PM Scheduled Provider:Armani Yarbrough DO Location:.ONCOLOGY Appointment Type:ONC Office Visit 30 (FT) Appointment Date:10/22/2023 10:30:00 AM Scheduled Provider:Nicolás Diggs MD Location[facility] Appointment Type:Pulmonary Follow Up (FT) Future Scheduled Tests Laboratory* Erythropoietin Level 07/13/23 * MARGUERITE and PE, Serum 07/13/23 * Methylmalonic Acid 07/13/23 * Free K+L Lt Chains,Qn,S 07/13/23 * CBC w/ Auto Diff 07/13/23 * CBC w/ Auto Diff 10/11/23 * Comprehensive Metabolic Panel 07/13/23 * Comprehensive Metabolic Panel 10/11/23 * Ferritin 07/13/23 * Ferritin 10/11/23 * Iron Level 07/13/23 * Iron Level 10/11/23 * Iron Percent Saturation 07/13/23 * Iron Percent Saturation 10/11/23 * Reticulocyte Count 07/13/23 * Transferrin 07/13/23 * Transferrin 10/11/23 Radiology* CT Chest w/o Contrast 04/09/23 * MRI Brain w/o Contrast 03/15/23 [facility]03-15-2020 Evaluation + Plan note Future Appointments Appointment Date:08/10/2022 09:30:00 AM Scheduled Provider: [facility] Type:NCV ICD (FT) Appointment Date:08/16/2022 01:00:00 PM Scheduled Provider:Andi WARE MD Location:[facility] Appointment Type:URO Office Visit Appointment Date:08/30/2022 01:00:00 PM Scheduled Provider:Andi WARE MD Location:[facility] Appointment Type:URO Office Visit Future Scheduled Tests Laboratory* PSA Total 03/23/22 [facility] 02-19-2020 Evaluation + Plan note Future Appointments Appointment Date:02/15/2023 10:30:00 AM Scheduled Provider: [facility] Type:NCV ICD (FT) Appointment Date:07/23/2023 12:15:00 PM Scheduled Provider:Andi WARE MD Location:[facility] Appointment Type:URO Office Visit Diagnostic Tests Pending * UroVysion Fish and Urine Cyto ([facility]) 01/16/23 Future Scheduled Tests Laboratory* PSA Total 03/23/22 [facility]02-19-2020 Evaluation + Plan note Future Appointments Appointment Date:05/17/2023 10:30:00 AM Scheduled Provider: Location:.CARDIO Appointment Type:NCV ICD (FT) Appointment Date:07/23/2023 12:15:00 PM Scheduled Provider:Andi WARE MD Location:[facility] Appointment Type:URO Office Visit Appointment Date:10/11/2023 02:15:00 PM Scheduled Provider:Armani Yarbrough DO [facility] Type:ONC Office Visit 30 (FT) Appointment Date:10/22/2023 10:30:00 AM Scheduled Provider:Nicolás Diggs MD Location[facility] Appointment Type:Pulmonary Follow Up (FT) Future Scheduled Tests Laboratory* Erythropoietin Level 07/13/23 * MARGUERITE and PE, Serum 07/13/23 * Methylmalonic Acid 07/13/23 * Free K+L Lt Chains,Qn,S 07/13/23 * CBC w/ Auto Diff 07/13/23 * CBC w/ Auto Diff 10/11/23 * Comprehensive Metabolic Panel 07/13/23 * Comprehensive Metabolic Panel 10/11/23 * Ferritin 07/13/23 * Ferritin 10/11/23 * Iron Level 07/13/23 * Iron Level 10/11/23 * Iron Percent Saturation 07/13/23 * Iron Percent Saturation 10/11/23 * Reticulocyte Count 07/13/23 * Transferrin 07/13/23 * Transferrin 10/11/23 Radiology* CT Chest w/o Contrast 04/09/23 * MRI Brain w/o Contrast 03/15/23 [facility] - Reported* Parkinsonism * Neurologic Evaluation. [id number] [address] DO Work Phone: chiuw complaint Narrative - Reported* Parkinsonism * Neurologic Evaluation. [id number] [place] [address] Work Phone: chief complaint+Reason for visit Narrative* Chief Complaint rectal bleeding Reason for Visit Acute lower GI bleed ing Haemorrhage postprocedure Rectal bleeding [facility] Work Phone: Evaluation + Plan note Future Appointments Appointment Date:10/20/2021 10:30:00 AM Scheduled Provider: Location:.CARDIO Appointment Type:PUL Pulmonary Function Test (FT) Appointment Date:10/20/2021 11:30:00 AM Scheduled Provider: Location:FT.XRAY Appointment Type:XR Chest (FT) Appointment Date:12/08/2021 10:00:00 AM Scheduled Provider: Location:.CARDIO Appointment Type:NCV ICD (FT) Future Scheduled Tests Radiology* XR Chest 2 Views 10/20/21 [facility] Future Appointments Appointment Date:11/07/2021 12:30:00 PM Scheduled Provider: Location:FT.CARDIO Appointment Type:PUL Pulmonary Function Test (FT) Appointment Date:11/07/2021 01:30:00 PM Scheduled Provider: Location:.XRAY Appointment Type:XR Chest (FT) Appointment Date:12/08/2021 10:00:00 AM Scheduled Provider: Location:.CARDIO Appointment Type:NCV ICD (FT) Future Scheduled Tests Radiology* XR Chest 2 Views 11/07/21 [facility] Evaluation + Plan note Future Appointments Appointment Date:12/08/2021 10:00:00 AM Scheduled Provider: Location:.CARDIO Appointment Type:NCV ICD (FT) [facility] Future Appointments Appointment Date:02/20/2022 10:00:00 AM Scheduled Provider:Deshawn Salinas Location:[facility] Appointment Type:[facility]O [facility] + Plan [facility] Future Appointments Appointment Date:03/09/2022 02:00:00 PM Scheduled Provider:Deshawn Salinas Location:[facility] Future Appointments Appointment Date:03/23/2022 09:00:00 AM Scheduled Provider:Deshawn Salinas Location:[facility] Appointment Type:URO Office Visit [facility] Evaluation + Plan note Future Appointments Appointment Date:03/31/2022 09:30:00 AM Scheduled Provider:Nicolás Diggs MD Location:FT.Pulmonary Clinic Appointment Type:Pulmonary Follow Up (FT) Future Scheduled Tests Laboratory* PSA Total 03/23/22 [facility] Evaluation + Plan note Future Appointments Appointment Date:05/09/2022 10:30:00 AM Scheduled Provider: Location:[facility] Appointment Type:Urology FT Appointment Date:05/09/2022 11:45:00 AM Scheduled Provider: Location:[facility] Appointment Type:Urology FT Future Scheduled Tests Laboratory* PSA Total 03/23/22 [facility] Future Appointments Appointment Date:06/22/2022 12:45:00 PM Scheduled Provider: Location:.CARDIO Appointment Type:PUL Pulmonary Function Test (FT) Appointment Date:06/22/2022 01:45:00 PM Scheduled Provider: [facility] Type:XR Chest (FT) Appointment Date:07/20/2022 01:45:00 PM Scheduled Provider:Landon WILL MD Location[facility] Appointment Type:BAD Follow Up Future Scheduled Tests Laboratory* PSA Total 03/23/22 Radiology* XR Chest 2 Views 06/22/22 [facility] evaluation + Plan note Future Appointments Appointment Date:07/20/2022 01:45:00 PM Scheduled Provider:Landon WILL MD Location:[facility] Appointment Type:BADH Follow Up Future Scheduled Tests Laboratory* PSA Total 03/23/22 [facility] Future Appointments Appointment Date:08/16/2022 01:00:00 PM Scheduled Provider:Andi WARE MD Location:[facility] Appointment Type:URO Office Visit Appointment Date:08/30/2022 01:00:00 PM Scheduled Provider:Andi WARE MD Location:[facility] Appointment Type:URO Office Visit Future Scheduled Tests Laboratory* PSA Total 03/23/22 [facility] Future Appointments Appointment Date:08/23/2022 10:15:00 AM Scheduled Provider:Andi WARE MD Location:[facility] Appointment Type:URO Office Visit Appointment Date:08/30/2022 01:00:00 PM Scheduled Provider:Andi WARE MD Location:[facility] Appointment Type:URO Office Visit Appointment Date:11/09/2022 10:30:00 AM Scheduled Provider: Location:.CARDIO Appointment Type:NCV ICD (FT) Future Scheduled Tests Laboratory* PSA Total 03/23/22 [facility] Future Appointments Appointment Date:09/25/2022 11:15:00 AM Scheduled Provider:Andi WARE MD Location:[facility] Appointment Type:URO Office Visit Appointment Date:11/09/2022 10:30:00 AM Scheduled Provider: [facility] Type:NCV ICD (FT) Future Scheduled Tests Laboratory* PSA Total 03/23/22 [facility] Evaluation + Plan note Future Appointments Appointment Date:11/09/2022 10:30:00 AM Scheduled Provider: Location:.CARDIO Appointment Type:NCV ICD (FT) Future Scheduled Tests Laboratory* PSA Total 03/23/22 [facility] evaluation + Plan note Future Appointments Appointment Date:11/09/2022 10:30:00 AM Scheduled Provider: Location:FT.CARDIO Appointment Type:NCV ICD (FT) Diagnostic Tests Pending * UroVysion Fish and Urine Cyto ([facility]) 10/31/22 Future Scheduled Tests Laboratory* PSA Total 03/23/22 [facility] Future Appointments Appointment Date:02/15/2023 10:30:00 AM Scheduled Provider: Location:FT.CARDIO Appointment Type:NCV ICD (FT) Diagnostic Tests Pending * Urine Culture 11/24/22 Future Scheduled Tests Laboratory* PSA Total 03/23/22 Radiology* CT Abdomen/Pelvis w/ Contrast 11/24/22 [facility] Future Appointments Appointment Date:02/15/2023 10:30:00 AM Scheduled Provider: [facility] Type:NCV ICD (FT) Future Scheduled Tests Laboratory* PSA Total 03/23/22 [facility] + Plan note Future Appointments Appointment Date:07/23/2023 12:15:00 PM Scheduled Provider:Andi WARE MD [facility] Appointment Type:URO Office Visit Future Scheduled Tests Laboratory* PSA Total 03/23/22 [facility] + Plan note Future Appointments Appointment Date:03/09/2023 10:00:00 AM Scheduled Provider: [facility] Type:CT Head/Neck (FT) Appointment Date:05/17/2023 10:30:00 AM Scheduled Provider: [facility] Type:NCV ICD () Appointment Date:07/23/2023 12:15:00 PM Scheduled Provider:[facility] Office Visit Future Scheduled Tests Laboratory* PSA Total 03/23/22 Radiology* CT Head or Brain w/o Contrast 03/09/23 [facility] + Plan note Future Appointments Appointment Date:04/12/2023 09:00:00 AM Scheduled Provider:Armani Yarbrough DO [facility] Type:ONC Office Visit 30 (FT) Appointment Date:05/17/2023 10:30:00 AM Scheduled Provider: [facility] Type:NCV ICD (FT) Appointment Date:07/23/2023 12:15:00 PM Scheduled Provider:Andi WARE MD Location[facility] Appointment Type:URO Office Visit Appointment Date:10/22/2023 10:30:00 AM Scheduled Provider:Priya Diggs MD Kathy [facility] Type:Pulmonary Follow Up (FT) Future Scheduled Tests Radiology* CT Chest w/o Contrast 04/09/23 * MRI Brain w/o Contrast 03/15/23 [facility] + Plan note Future Appointments Appointment Date:07/23/2023 12:15:00 PM Scheduled Provider:Andi WARE MD Location:[facility] Appointment Type:URO Office Visit Appointment Date:08/16/2023 10:00:00 AM Scheduled Provider: [facility] Type:NCV ICD (FT) Appointment Date:10/11/2023 02:15:00 PM Scheduled Provider:Armani Yarbrough DO [facility] Type:ONC Office Visit 30 (FT) Appointment Date:10/22/2023 10:30:00 AM Scheduled Provider:Nicolás Diggs MD Location:.Pulmonary Clinic Appointment Type:Pulmonary Follow Up (FT) Future Scheduled Tests Laboratory* Erythropoietin Level 07/13/23 * MARGUERITE and PE, Serum 07/13/23 * Methylmalonic Acid 07/13/23 * Free K+L Lt Chains,Qn,S 07/13/23 * CBC w/ Auto Diff 07/13/23 * CBC w/ Auto Diff 10/11/23 * Comprehensive Metabolic Panel 07/13/23 * Comprehensive Metabolic Panel 10/11/23 * Ferritin 07/13/23 * Ferritin 10/11/23 * Iron Level 07/13/23 * Iron Level 10/11/23 * Iron Percent Saturation 07/13/23 * Iron Percent Saturation 10/11/23 * Reticulocyte Count 07/13/23 * Transferrin 07/13/23 * Transferrin 10/11/23 Radiology* CT Chest w/o Contrast 04/09/23 * MRI Brain w/o Contrast 03/15/23 [facility] Future Appointments Appointment Date:10/11/2023 02:15:00 PM Scheduled Provider:Armani Yarbrough DO [facility] Type:ONC Office Visit 30 (FT) Appointment Date:10/22/2023 10:30:00 AM Scheduled Provider:Nicolás Diggs MD Location:.P[facility] Clinic Appointment Type:Pulmonary Follow Up (FT) Future Scheduled Tests Laboratory* Erythropoietin Level 07/13/23 * MARGUERITE and PE, Serum 07/13/23 * Methylmalonic Acid 07/13/23 * Free K+L Lt Chains,Qn,S 07/13/23 * CBC w/ Auto Diff 07/13/23 * CBC w/ Auto Diff 10/11/23 * Comprehensive Metabolic Panel 07/13/23 * Comprehensive Metabolic Panel 10/11/23 * Ferritin 07/13/23 * Ferritin 10/11/23 * Iron Level 07/13/23 * Iron Level 10/11/23 * Iron Percent Saturation 07/13/23 * Iron Percent Saturation 10/11/23 * Reticulocyte Count 07/13/23 * Transferrin 07/13/23 * Transferrin 10/11/23 Radiology* CT Chest w/o Contrast 04/09/23 * MRI Brain w/o Contrast 03/15/23 [facility] Future Appointments Appointment Date:10/31/2023 01:45:00 PM Scheduled Provider:Armani Yarbrough DO [facility] Type:ONC Office Visit 30 (FT) Diagnostic Tests Pending * MARGUERITE and PE, Serum 10/13/23 * Erythropoietin Level 10/13/23 * Free K+L Lt Chains,Qn,S 10/13/23 * Methylmalonic Acid 10/13/23 Future Scheduled Tests Laboratory* CBC w/ Auto Diff 07/13/23 * Comprehensive Metabolic Panel 07/13/23 * Ferritin 07/13/23 * Iron Level 07/13/23 * Iron Percent Saturation 07/13/23 * Transferrin 07/13/23 Radiology* CT Chest w/o Contrast 04/09/23 * MRI Brain w/o Contrast 03/15/23 [facility] Future Appointments Appointment Date:10/31/2023 01:45:00 PM Scheduled Provider:Armani Yarbrough DO [facility] Type:ONC Office Visit 30 (FT) Appointment Date:11/09/2023 09:00:00 AM Scheduled Provider: [facility] Type:Anticoagulation Initial Assessment 58 (F Future Scheduled Tests Laboratory* CBC w/ Auto Diff 07/13/23 * Comprehensive Metabolic Panel 07/13/23 * Ferritin 07/13/23 * Iron Level 07/13/23 * Iron Percent Saturation 07/13/23 * Transferrin 07/13/23 Radiology* CT Chest w/o Contrast 04/09/23 * MRI Brain w/o Contrast 03/15/23 [facility] Future Appointments Appointment Date:11/09/2023 09:00:00 AM Scheduled Provider: [facility] Type:Anticoagulation Initial Assessment 58 (F Appointment Date:12/05/2023 10:00:00 AM Scheduled Provider:Nicolás Diggs MD Location:FT.Pulmonary Clinic Appointment Type:Pulmonary Follow Up (FT) Appointment Date:10/30/2024 01:45:00 PM Scheduled Provider:Armani Yarbrough DO Location:.ONCOLOGY Appointment Type:ONC Office Visit 30 (FT) Future Scheduled Tests Laboratory* Erythropoietin Level 01/24/24 * Erythropoietin Level 04/25/24 * Erythropoietin Level 07/26/24 * Erythropoietin Level 10/23/24 * CBC w/ Auto Diff 01/24/24 * CBC w/ Auto Diff 04/25/24 * CBC w/ Auto Diff 07/26/24 * CBC w/ Auto Diff 10/23/24 * Comprehensive Metabolic Panel 01/24/24 * Comprehensive Metabolic Panel 04/25/24 * Comprehensive Metabolic Panel 07/26/24 * Comprehensive Metabolic Panel 10/23/24 * Ferritin 01/24/24 * Ferritin 04/25/24 * Ferritin 07/26/24 * Ferritin 10/23/24 * Iron Level 01/24/24 * Iron Level 04/25/24 * Iron Level 07/26/24 * Iron Level 10/23/24 * Iron Percent Saturation 01/24/24 * Iron Percent Saturation 04/25/24 * Iron Percent Saturation 07/26/24 * Iron Percent Saturation 10/23/24 * Transferrin 01/24/24 * Transferrin 04/25/24 * Transferrin 07/26/24 * Transferrin 10/23/24 Radiology* CT Chest w/o Contrast 04/09/23 * MRI Brain w/o Contrast 03/15/23 [facility] Diagnosis Bipolar 1 disorder, mixed, mild (HCC)- Primary Generalized anxiety disorder Long-term use of high-risk medication [facility] Diagnosis Bipolar 1 disorder, manic, mild (HCC)- Primary Generalized anxiety disorder Long-term use of high-risk medication [facility]* Diagnosis Bipolar 1 disorder, manic, mild (HCC)- Primary Generalized anxiety disorder Long-term use of high-risk medication [facility]* Diagnosis Onset Date Resolution Status Acute lower GI bleeding acut e [facility] Work Phone: Evaluation note* Diagnosis Onset Date Resolution Status Acute lower GI bleeding acut e Haemorrhage postprocedure ac [place] Rectal bleeding acute [facility] Work Phone: Evaluation noteNo InformationNo[facility] [place] Other Evaluation note* Diagnosis Memory loss- Primary Parkinsonism, unspecified Parkinsonism type Bipolar disorder, in partial remission, most recent episode mixed (CMS/HCC) (HCC) Polypharmacy Issue of repeat prescriptions [facility] Diagnosis Mild dementia without behavioral disturbance, psychotic disturbance, mood disturbance, or anxiety, unspecified dementia type ([facility])- Primary B12 deficiency Acquired hypothyroidism Unspecified hypothyroidism [facility]* Diagnosis Parkinsonism, unspecified Parkinsonism type- Primary Cognitive impairment Unspecified persistent mental disorders due to conditions classified elsewhere documented in this encounter [facility] Work Phone: Evaluation note* Diagnosis Atherosclerosis of coronary artery bypass graft of [place] heart without angina pectoris S/P PTCA (percutaneous transluminal coronary angioplasty) Postsurgical percutaneous transluminal coronary angioplasty status Ventricular tachycardia (paroxysmal) (CMS/HCC) Paroxysmal ventricular tachycardia AICD (automatic cardioverter/defibrillator) present Automatic implantable cardiac defibrillator in situ Hypertension, essential, benign Essential hypertension, benign Ischemic cardiomyopathy Other specified forms of chronic ischemic heart disease Paroxysmal atrial fibrillation (CMS/HCC) Atrial fibrillation Mixed hyperlipidemia Stage 3b chronic kidney disease (CMS/HCC) S/P CABG (coronary artery bypass graft) Postsurgical aortocoronary bypass status Transient neurological symptoms Obstructive sleep apnea, adult documented in this encounter [facility] Work Phone: Evaluation noteNo assessment information available [facility] Work Phone: Evaluation note* Diagnosis Atherosclerosis of coronary artery bypass graft of [place] heart without angina pectoris- Primary Ventricular tachycardia (paroxysmal) (Multi) Paroxysmal ventricular tachycardia Ischemic cardiomyopathy Other specified forms of chronic ischemic heart disease AICD (automatic cardioverter/defibrillator) present Automatic implantable cardiac defibrillator in situ S/P PTCA (percutaneous transluminal coronary angioplasty) Postsurgical percutaneous transluminal coronary angioplasty status Hypertension, essential, benign Essential hypertension, benign Paroxysmal atrial fibrillation (Multi) Atrial fibrillation Mixed hyperlipidemia High risk medication use S/P CABG (coronary artery bypass graft) Postsurgical aortocoronary bypass status Type 2 diabetes mellitus without complication, unspecified whether correction insulin use (Multi) Class 1 obesity without serious comorbidity with body mass index (BMI) of 32.0 to 32.9 in adult, unspecified obesity type Mild dementia without behavioral disturbance, psychotic disturbance, mood disturbance, or anxiety, unspecified dementia type (Multi) documented in this encounter [facility] Work Phone: Evaluation note* Diagnosis Bipolar 1 disorder, manic, full remission (HCC)- Primary Generalized anxiety disorder Long-term use of high-risk medication [facility] Author Bill Mcgee [facility] September 06, 2023 8:14am Note Date/Time September 06, 2023 8:13 am [facility] [address] [place] [address] Gastroenterology H&P Signed Patient: José Luis Faulkner MR #: [id number] : 1950 Acct:[id number] Age/Sex: 72 / M Adm Date: 4 Loc: Room: Type: [facility] Attending Dr: Bill Mcgee MD Copies to: MD Mona Barakat MD~ Date of Service: 09/06/2023 HISTORY & PHYSICAL: Patient's history with special attention to the cardiovascular, pulmonary systems and the current problem was reviewed with the patient immediately prior to the procedure. Present medications and doses reviewed in the EMR. Allergies and pertinent laboratory tests were also reviewedat this time in the EMR. The physical examination, as below, was then performed. Indication, assessment and HPI: 72-year-old male presents for colonoscopy to evaluate history of rectal bleeding, on Eliquis. Family history of GI malignancy? No PHYSICAL EXAMINATION Mouth and Pharynx : Moist mucus membranes, normal dentition Cardiac: Regular rate, regular rhythm Pulmonary: Clear to auscultation bilaterally, no wheezing Neurological: Alert and oriented x3, no focal deficits noted Abdomen: Abdomen soft, non-tender REVIEW OF SYSTEMS Constitutional: Denies malaise, fevers Cardiovascular: Denies chest pain, palpitations Respiratory: Denies shortness of breath, wheezing Gastrointestinal: Per HPI Genitourinary: Denies dysuria, polyuria Musculoskeletal: Denies joint swelling, joint stiffness Neurological: Denies numbness, tingling Integumentary: Denies rashes, skin lesions Endocrine: Denies fatigue, weight loss Written informed consent obtained from the patient. Risks (including but not limited to perforation, infection, bloating, bleeding, need for emergent surgeryand loss of life), benefits and alternatives explained and questions answered. The patient verbalized understanding. Based on history patient is an appropriate candidate for the procedure. Bill Mcgee MD Documented By: Bill Mcgee MD 09/06/23 0812 Signed By: <Electronically signed by Bill Mcgee MD> 09/06/23 0814 [facility] Work Phone: Hisbthe general Narrative - Reported* Type Description Date Medical History CAD Medical History HYPOTHYROIDISM Medical History DEPRESSION Medical History TYPE II DIABETS Medical History AUTONOMIC DYSFUNCTION Medical History BRADYCARDIA Medical History HTN Medical History BI POLAR Medical History ASTHMA Medical History ANEMIA Medical History CHARCOT ARTHRITIS L FOOT Medical History OSTEO L KNEE Medical History PACEMAKER/DEFIB Medical History OSTEO L FOOT Medical History TARDIVE DYSKINESIA Surgical History QUAD BY PASS 2001 Surgical History HEART STENT X'S 2 SURGERY Surgical History PACEMAKER Surgical History CATARACT RT eye Surgical History EAR SURGERY RT Surgical History EGD Surgical History CATARACT LEFT Hospitalization History SEE ABOVE SURGERY Hospitalization History HYPOTENSION 07/2016 [facility] Other History of Present illness Narrative* Venkatehs Gil is a 71 year old right-handed male with a history of atrial fibrillation s/p AICD, T2DM, HTN, HLD, hypothyroidism, and bipolar disorder (on Abilify), who presents for evaluation ofparkinsonism. He is accompanied by his daughter Stephanie who is an RN. * Per daughter, he was seen at OSH for left sided weakness and right sided tremor. CT head and CTA head and neck were unremarkable. He was unable to have MRI due to pacemaker. He was seen by Dr. Zac Martinez who diagnosed him with Parkinson s disease vs drug-induced parkinsonism. He was started on carbidopa/levodopa. * Today, daughter states he had tremor for >10 years. They were told by psychiatrist that this could be a side effect of Abilify. He was started on trihexyphenidyl, but this was stopped due to side effect of urinary retention (had bladder tumors removed in May). He states the tremor is in theright hand and is present only at rest. Tremor goes away with activity or holding objects. Tremor is worse in the afternoon. * He endorses slowness of movements for the last 2 years. He denies any muscle stiffness. * He reports difficulty with balance. He reports FOG 2-3x per week, and mostly occurs when initiatinggait. Reports multiple falls, at least 1-2x per week (less frequently since starting carbidopa/levodopa). He uses a walker 60% of the time, and uses the cane during the morning when he feels better. He was discharged from home health due to motor decline. * Denies hyposmia/anosmia. * No dysphagia or drooling. Denies hypophonia. * No constipation or urinary symptoms (since bladder tumors removed in May). * Sleep is good. Sleeps in a recliner as he is able to breathe better. Uses O2 at nighttime as he used to remove CPAP during his sleep. Denies RBD symptoms. * Mood is fairly good. He has had decline in memory at least over the last year, and this has been fluctuating. While in the hospital, he could not remember that he had a grandchild, otherwise mostly short term memory problems. Diagnosed with dementia within the last year. No VH. B12 was 279 (low) in January. TSH high at 30.12 in December 2021. * Has been on Abilify for the last 12 years for Bipolar disorder. The dose was reduced from 20 mg to 10 mg over the summer. He continues to have motor decline despite the dose reduction. * Current PD meds: * -Carbidopa/levodopa 25-100 mg 1 tab TID (7-8 am, 12 pm, 4 pm) * Onset 45 60 minutes. Has worsening tremor when he wears off, he does not always notice wearing off prior to his next dose. * Previous PD meds: * -Trihexiphenidyl stopped due to side effect of urinary retention * Review of Systems: * - Pertinent positives: tremor, falls, slowness of movement * - Pertinent negatives: as per HPI * - 14 point ROS reviewed and otherwise negative except as stated above * Past Medical/Surgical History: * - Atrial fibrillation * - Bipolar disorder * - CAD * - COPD * - Diabetes mellitus type 2 * - HTN * - HLD * - Hypothyroidism * - Ischemic cardiomyopathy * - Sleep apnea on CPAP * - s/p CABG * - s/p AICD * - s/p mastoidectomy * Home Meds: * -Albuterol inhaler 2 puffs prn * -Alprazolam 0.25 mg prn * -Amiodarone 200 mg 1.5 tabs qd * -Amlodipine 5 mg qd * -Amoxicillin 500 mg BID * -Anoro Ellipta 62.5-25 mg * -Aripiprazole 10 mg qd * -ASA 81 mg qd * -Atorvastatin 80 mg qhs * -Carbidopa/levodopa 25-100 mg 1 tab TID * -Carvedilol 25 mg BID * -CoQ10 100 mg qd * -Eliquis 5 mg BID * -Enalapril 10 mg BID * -Flaxseed oil * -Flomax 0.4 mg qd * -Florastor 250 mg qd * -Glimepiride 2 mg BID * -Humalog 100 mg take as directed * -Isosorbide mononitrate ER 60 mg qd * -Lamotrigine 200 mg qd * -Levothyroxine 150 mcg qd * -Magnesium oxide 400 mg qd * -Metformin 1,000 mg BID * -Nitroglycerin 0.4 mg prn * -Novolin take as directed * -Pantoprazole 40 mg qd * -Torsemide 20 mg qd * -Venlafaxine 37.5 mg BID * -Vitamin C supplement * -Vitamin D supplement * Allergies: NKDA * Social History: * - Living situation: Lives with , daughter, son-in-law, and 2 grandkids. Lives in an in-law suite. * - Baseline function: Needs assistance with dressing, getting in and out of the shower. Able to toilet and feed self. manages finances. Stopped driving about 1 year ago. 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 * - Tobacco use: Quit smoking cigarettes in 2000. * - Alcohol use: None * - Illicit drug use: None * Family History: * - No family history of Parkinson s disease or tremor. Possibly dementia in older sister. [id number] [address] DO Work Phone: History of Present illness Narrative* Venkatesh Gil is a 71 year old right-handed male with a history of atrial fibrillation s/p AICD, T2DM, HTN, HLD, hypothyroidism, and bipolar disorder (on Abilify), who presents for evaluation ofparkinsonism. He is accompanied by his daughter Stephanie who is an RN. * Per daughter, he was seen at OSH for left sided weakness and right sided tremor. CT head and CTA head and neck were unremarkable. He was unable to have MRI due to pacemaker. He was seen by Dr. Zac Martinez who diagnosed him with Parkinson s disease vs drug-induced parkinsonism. He was started on carbidopa/levodopa. * Today, daughter states he had tremor for >10 years. They were told by psychiatrist that this could be a side effect of Abilify. He was started on trihexyphenidyl, but this was stopped due to side effect of urinary retention (had bladder tumors removed in May). He states the tremor is in theright hand and is present only at rest. Tremor goes away with activity or holding objects. Tremor is worse in the afternoon. * He endorses slowness of movements for the last 2 years. He denies any muscle stiffness. * He reports difficulty with balance. He reports FOG 2-3x per week, and mostly occurs when initiatinggait. Reports multiple falls, at least 1-2x per week (less frequently since starting carbidopa/levodopa). He uses a walker 60% of the time, and uses the cane during the morning when he feels better. He was discharged from home health due to motor decline. * Denies hyposmia/anosmia. * No dysphagia or drooling. Denies hypophonia. * No constipation or urinary symptoms (since bladder tumors removed in May). * Sleep is good. Sleeps in a recliner as he is able to breathe better. Uses O2 at nighttime as he used to remove CPAP during his sleep. Denies RBD symptoms. * Mood is fairly good. He has had decline in memory at least over the last year, and this has been fluctuating. While in the hospital, he could not remember that he had a grandchild, otherwise mostly short term memory problems. Diagnosed with dementia within the last year. No VH. B12 was 279 (low) in January. TSH high at 30.12 in December 2021. * Has been on Abilify for the last 12 years for Bipolar disorder. The dose was reduced from 20 mg to 10 mg over the summer. He continues to have motor decline despite the dose reduction. * Current PD meds: * -Carbidopa/levodopa 25-100 mg 1 tab TID (7-8 am, 12 pm, 4 pm) * Onset 45 60 minutes. Has worsening tremor when he wears off, he does not always notice wearing off prior to his next dose. * Previous PD meds: * -Trihexiphenidyl stopped due to side effect of urinary retention * Review of Systems: * - Pertinent positives: tremor, falls, slowness of movement * - Pertinent negatives: as per HPI * - 14 point ROS reviewed and otherwise negative except as stated above * Past Medical/Surgical History: * - Atrial fibrillation * - Bipolar disorder * - CAD * - COPD * - Diabetes mellitus type 2 * - HTN * - HLD * - Hypothyroidism * - Ischemic cardiomyopathy * - Sleep apnea on CPAP * - s/p CABG * - s/p AICD * - s/p mastoidectomy * Home Meds: * -Albuterol inhaler 2 puffs prn * -Alprazolam 0.25 mg prn * -Amiodarone 200 mg 1.5 tabs qd * -Amlodipine 5 mg qd * -Amoxicillin 500 mg BID * -Anoro Ellipta 62.5-25 mg * -Aripiprazole 10 mg qd * -ASA 81 mg qd * -Atorvastatin 80 mg qhs * -Carbidopa/levodopa 25-100 mg 1 tab TID * -Carvedilol 25 mg BID * -CoQ10 100 mg qd * -Eliquis 5 mg BID * -Enalapril 10 mg BID * -Flaxseed oil * -Flomax 0.4 mg qd * -Florastor 250 mg qd * -Glimepiride 2 mg BID * -Humalog 100 mg take as directed * -Isosorbide mononitrate ER 60 mg qd * -Lamotrigine 200 mg qd * -Levothyroxine 150 mcg qd * -Magnesium oxide 400 mg qd * -Metformin 1,000 mg BID * -Nitroglycerin 0.4 mg prn * -Novolin take as directed * -Pantoprazole 40 mg qd * -Torsemide 20 mg qd * -Venlafaxine 37.5 mg BID * -Vitamin C supplement * -Vitamin D supplement * Allergies: NKDA * Social History: * - Living situation: Lives with , daughter, son-in-law, and 2 grandkids. Lives in an in-law suite. * - Baseline function: Needs assistance with dressing, getting in and out of the shower. Able to toilet and feed self. manages finances. Stopped driving about 1 year ago. 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 * - Tobacco use: Quit smoking cigarettes in 2000. * - Alcohol use: None * - Illicit drug use: None * Family History: * - No family history of Parkinson s disease or tremor. Possibly dementia in older sister. [id number] [place] [address] Work Phone: Hospital course Narrative No data available for this section [facility] Discharge instructions No data available for this section [facility] Discharge instructions Additional Instructions Take Torsemide 20mg twice daily for 4 days then resume home dose and repeat labs [facility] Work Phone: Hospital Discharge instructions Additional Instructions DISCHARGE INSTRUCTIONS FOR BLADDER TUMOR, BLADDER BIOPSY -Even though there are no visible incisions, the bladder is quite raw on the inside, and you need to follow some instructions to minimize the risks of bleeding and disturbing the area over the next six weeks. -The catheter in the bladder will be irritating, sometimes causing a strong desire to urinate. Often patients will experience urine leakage around the catheter, as well as some blood in the urine. These same symptoms may persist even after the catheter is removed. -You have a leg bag to hold the urine, which will need to be emptied to avoid a urine backup. You may wash around the catheter entrance site with soap and water. You may also use an antibiotic ointment, such as Bacitracin or Neomycin. DIET -You may resume your normal diet, but you may want to avoid alcohol, carbonated drinks, caffeine, and spicy foods, which may increase the irritation from the surgery and the catheter. Drink plenty of water to keep the urine clear. ACTIVITY -You should limit any physical activity, especially over the first two weeks. -No heavy lifting or straining (10 pound limit). -No driving a car and limit long car rides for 1-2 weeks. -Showering is OK, even while the catheter is in. -Light activity, such as walking, is encouraged; as you are able (stairs are OK). BOWELS -Try to keep your bowel movements soft to minimize straining to have a bowel movement. -You may use a stool softener or over the counter laxative if needed. -Difficult bowel movements may lead to straining and bleeding from the prostate. MEDICATIONS -You may resume your home medications unless instructed otherwise. -[You may hold aspirin, ibuprofen, Coumadin (warfarin), and other blood thinners (we will discuss when to resume these medications).] -Take your prescribed medications as directed, including your antibiotics. THINGS TO WATCH FOR WHICH WOULD REQUIRE AN EMERGENCY ROOM VISIT OR CALL 911: (This is not a complete list) -Persistent or heavy bleeding or blood clots clogging the catheter. -Inability to urinate. -Fever over 101.5 degrees Farhenheit with or without chills. -Severe drug reactions, with itching, hives, or rash. FOLLOW UP -Please call the office to arrange for your post-operative appointment and to remove the catheter. [ ][facility] Work Phone: Hospital Discharge instructions Additional Instructions DISCHARGE INSTRUCTIONS FOR CIRCUMCISIONS The following instructions must be followed very closely: -If you need pain pills, start before pain becomes intense. Antibiotics and pain pills are frequently less upsetting to your stomach if you take them with food such as crackers or bread. -If you are having excessive or persistent pain, swelling, bleeding, nausea, vomiting, or any other problems, you should first call your surgeon for advice. If you are unable to contact your surgeon, seek help from a hospital emergency room. If you were given drugs to make you drowsy and/or pain medication, follow these instructions: -You should spend the remainder of the day and evening resting. -You should not attempt to walk, including going to the bathroom, without assistance. You may be lightheaded from the medications you received. -Eat light today to avoid nausea. You should be able to return to your normal diet 24-36 hours after surgery. -For the next 24 hours you should not consume alcohol, attempt to drive, use any power tools, sign important documents or make important personal or business decisions After that, do so if you feel perfectly normal and alert. -Follow carefully any verbal or written instructions your surgeon may have given you. FOLLOW UP -[Call the office to schedule a follow up appointment.] [ ][facility] Work Phone: Progress note No data available for this section [facility] Family History No Family History Records FoundUnknown Family Member Name Dates Details Family history of valvular h eart disease: Sister(V17.49, Z82.49) Status:Active No pertinent family history: Mother, Father, Brother(V49.89, Z78.9) Status:Active Unknown Family Member Name Dates Details Family history of valvular h eart disease: Sister(V17.49, Z82.49) Status:Active No pertinent family history: Mother, Father, Brother(V49.89, Z78.9) Status:Active Unknown Family Member Name Dates Details Family history of valvular h eart disease: Sister(V17.49, Z82.49) Status:Active No pertinent family history: Mother, Father, Brother(V49.89, Z78.9) Status:Active Unknown Family Member Name Dates Details Family history of valvular h eart disease: Sister(V17.49, Z82.49) Status:Active No pertinent family history: Mother, Father, Brother(V49.89, Z78.9) Status:Active Unknown Family Member Name Dates Details Family history of valvular h eart disease: Sister(V17.49, Z82.49) Status:Active No pertinent family history: Mother, Father, Brother(V49.89, Z78.9) Status:Active Unknown Family Member Name Dates Details Family history of valvular h eart disease: Sister(V17.49, Z82.49) Status:Active No pertinent family history: Mother, Father, Brother(V49.89, Z78.9) Status:Active Unknown Family Member Name Dates Details No pertinent family history: Mother, Father, Brother(V49.89, Z78.9) Status:Active Family history of valvular h eart disease: Sister(V17.49, Z82.49) Status:Active Unknown Family Member Name Dates Details Family history of valvular h eart disease: Sister(V17.49, Z82.49) Status:Active No pertinent family history: Mother, Father, Brother(V49.89, Z78.9) Status:Active Unknown Family Member Name Dates Details Family history of valvular h eart disease: Sister(V17.49, Z82.49) Status:Active No pertinent family history: Mother, Father, Brother(V49.89, Z78.9) Status:Active Unknown Family Member Name Dates Details No pertinent family history: Mother, Father, Brother(V49.89, Z78.9) Status:Active Family history of valvular h eart disease: Sister(V17.49, Z82.49) Status:Active Unknown Family Member Name Dates Details No pertinent family history: Mother, Father, Brother(V49.89, Z78.9) Status:Active Family history of valvular h eart disease: Sister(V17.49, Z82.49) Status:Active Unknown Family Member Name Dates Details Family history of valvular h eart disease: Sister(V17.49, Z82.49) Status:Active No pertinent family history: Mother, Father, Brother(V49.89, Z78.9) Status:Active Unknown Family Member Name Dates Details No pertinent family history: Mother, Father, Brother(V49.89, Z78.9) Status:Active Family history of valvular h eart disease: Sister(V17.49, Z82.49) Status:Active Unknown Family Member Name Dates Details Family history of valvular h eart disease: Sister(V17.49, Z82.49) Status:Active No pertinent family history: Mother, Father, Brother(V49.89, Z78.9) Status:Active Unknown Family Member Name Dates Details Family history of valvular h eart disease: Sister(V17.49, Z82.49) Status:Active No pertinent family history: Mother, Father, Brother(V49.89, Z78.9) Status:Active Unknown Family Member Name Dates Details Family history of valvular h eart disease: Sister(V17.49, Z82.49) Status:Active No pertinent family history: Mother, Father, Brother(V49.89, Z78.9) Status:Active Unknown Family Member Name Dates Details Family history of valvular h eart disease: Sister(V17.49, Z82.49) Status:Active No pertinent family history: Mother, Father, Brother(V49.89, Z78.9) Status:Active Unknown Family Member Name Dates Details No pertinent family history: Mother, Father, Brother(V49.89, Z78.9) Status:Active Family history of valvular h eart disease: Sister(V17.49, Z82.49) Status:Active Unknown Family Member Name Dates Details No pertinent family history: Mother, Father, Brother(V49.89, Z78.9) Status:Active Family history of valvular h eart disease: Sister(V17.49, Z82.49) Status:Active Unknown Family Member Name Dates Details Family history of valvular h eart disease: Sister(V17.49, Z82.49) Status:Active No pertinent family history: Mother, Father, Brother(V49.89, Z78.9) Status:Active Unknown Family Member Name Dates Details No pertinent family history: Mother, Father, Brother(V49.89, Z78.9) Status:Active Family history of valvular h eart disease: Sister(V17.49, Z82.49) Status:Active Unknown Family Member Name Dates Details No pertinent family history: Mother, Father, Brother(V49.89, Z78.9) Status:Active Family history of valvular h eart disease: Sister(V17.49, Z82.49) Status:Active Unknown Family Member Name Dates Details Family history of valvular h eart disease: Sister(V17.49, Z82.49) Status:Active No pertinent family history: Mother, Father, Brother(V49.89, Z78.9) Status:Active Unknown Family Member Name Dates Details Family history of valvular h eart disease: Sister(V17.49, Z82.49) Status:Active No pertinent family history: Mother, Father, Brother(V49.89, Z78.9) Status:Active Unknown Family Member Name Dates Details Family history of valvular h eart disease: Sister(V17.49, Z82.49) Status:Active No pertinent family history: Mother, Father, Brother(V49.89, Z78.9) Status:Active Relationship Condition Age at Onset Recorded Date/T lina Not Specified Hypertension Unknown Hyperlipidemia Unknown Malignant neoplasm of colon Unknown father Malignant neoplasm of prostate Unknown Relationship Condition Age at Onset Recorded Date/T ilna Not Specified Malignant neoplasm of colon Unknown Hyperlipidemia Unknown Hypertension Unknown father Malignant neoplasm of prostate Unknown brother Malignant neoplasm Unknown sister Malignant neoplasm Unknown brother Malignant neoplasm of prostate Unknown sister Type 2 diabetes mellitus Unknown sister Atrial fibrillation Unknown Unknown Family Member Name Dates Details Family history of valvular h eart disease: Sister(V17.49, Z82.49) Status:Active No pertinent family history: Mother, Father, Brother(V49.89, Z78.9) Status:Active Unknown Family Member Name Dates Details Family history of valvular h eart disease: Sister(V17.49, Z82.49) Status:Active No pertinent family history: Mother, Father, Brother(V49.89, Z78.9) Status:Active Unknown Family Member Name Dates Details Family history of valvular h eart disease: Sister(V17.49, Z82.49) Status:Active No pertinent family history: Mother, Father, Brother(V49.89, Z78.9) Status:Active Unknown Family Member Name Dates Details Family history of valvular h eart disease: Sister(V17.49, Z82.49) Status:Active No pertinent family history: Mother, Father, Brother(V49.89, Z78.9) Status:Active Unknown Family Member Name Dates Details Family history of valvular h eart disease: Sister(V17.49, Z82.49) Status:Active No pertinent family history: Mother, Father, Brother(V49.89, Z78.9) Status:Active Unknown Family Member Name Dates Details Family history of valvular h eart disease: Sister(V17.49, Z82.49) Status:Active No pertinent family history: Mother, Father, Brother(V49.89, Z78.9) Status:Active Relationship Condition Age at Onset Recorded Date/T lina Not Specified Malignant neoplasm of colon Unknown Hyperlipidemia Unknown Hypertension Unknown Unknown Malignant neoplasm Unknown father Malignant neoplasm of prostate Unknown brother Malignant neoplasm Unknown sister Malignant neoplasm Unknown brother Malignant neoplasm of prostate Unknown sister Type 2 diabetes mellitus Unknown sister Atrial fibrillation Unknown brother Diabetes mellitus Unknown sister Diabetes mellitus Unknown Chief Complaint * JOSÉ LUIS GIL is being seen for hypertension. * Patient was in the office today for follow-up for hypertension management. His blood pressure was noted to be normal. His heart rate was fast and he was totally asymptomatic. I did an EKG and I foundthat he was in atrial flutter with a heart rate 118 bpm. This is the first time we discover atrial flutter. The patient was advised to start taking amiodarone 200 mg twice daily along with Eliquis 5 mg twice daily. We will stop the Plavix and leave the aspirin. We will stop the amlodipine and use Cardizem CD 120 mg daily. ECG will be done next week. Follow-up cardioversion will be done if necessary. His lungs sounded normal. He had no cardiac murmurs. He had no significant lower extremity edema. Had no symptoms of chest pain or palpitations or dyspnea. Patient drove himself to the office today without a problem. I discussed the case on the phone with the patient's daughter who is a nurse. She understands completely the present situation. The patient is aware of what is happening his questions were answered to his satisfaction. He left the office in stable condition with no complaints. * Patient here for EKG due to Aflutter. Patient complains of SOB. Medication list reviewed and updated. * to Abeba Jones NP for review in Dr. Felipa Milligan MD absence * to Dr. Felipa Milligan MD for review upon return. * Enclosed you will find an order form to have your Pulmonary Functions Test done at [facility]. The specific time and date of your testing is indicated on the form. It is also necessary for you to have a chest x-ray as well as lab work. These tests are needed if you are on one of the following medications: Cordarone, Pacerone, or Amiodarone. * (If your testing is being performed at [facility] - please enter through the [facility] entrance - NOT the Emergency Room entrance. ) * If you are unable to keep the appointment that has been made for you, please contact our office at [phone] and press option #3 so that we may assist you in rescheduling. * Thank you for your compliance with this testing, * The Staff * [facility] * Note: You MAY NOT USE inhalers for 4 hours PRIOR to your Pulmonary Function Test. * [facility] 06/16/2021 @ 10:30 AM * Enclosed you will find an order form to have your Pulmonary Functions Test done at [facility]. The specific time and date of your testing is indicated on the form. It is also necessary for you to have a chest x-ray as well as lab work. These tests are needed if you are on one of the following medications: Cordarone, Pacerone, or Amiodarone. * (If your testing is being performed at [facility] - please enter through the [facility] entrance - NOT the Emergency Room entrance. ) * If you are unable to keep the appointment that has been made for you, please contact our office at [phone] and press option #3 so that we may assist you in rescheduling. * Thank you for your compliance with this testing, * The Staff * [facility] * Note: You MAY NOT USE inhalers for 4 hours PRIOR to your Pulmonary Function Test * [facility] 07/21/2021 @ 12:45 pm CATH RESULTS.* CATH RESULTS. * Patient is in the office accompanied by his after having recent cardiac catheterization by myself revealing that 3 bypasses were wide open and the fourth 1 was not working however his collaterals have been excellent and there is no myocardium at risk. He has no angina pectoris but has tendencyto fall and was encouraged to utilize a walker instead of the cane. His diabetes under better control. His pressure is normal. His ejection fraction around 45%. His rhythm is sinus rhythm confirmed by EKG today. He is currently on anticoagulation with Eliquis along with amiodarone therapy.. His lungs sounded normal he has no significant lower extremity edema and his blood pressure is normal. He reports no angina and his defibrillator has been followed closely in the pacemaker clinic. His labs have been followed closely with nephrology as well. * ASSESSMENT AND PLAN: * 1. Severe coronary artery disease, status post bypass surgery in the * remote past, it included ZAVALA graft to the LAD which was patent by cath 2018, saphenous vein graft to the right coronary artery which is patent and vein graft to the obtuse marginal which was patent in 2018. The patient has occluded mid LAD, proximal circumflex and proximal RCA. Currently there is no myocardium at risk, secondary prevention measures are in place and the patient has been compliant * 2. ischemic cardiomyopathy stage C, functional class III. Left ventricle ejection fraction is 45%. He is currently on guideline directed medical therapy for chronic systolic heart failure, the patient cannot afford Entresto. * 3. hypertension. Currently controlled. * 4. AICD in place for primary prevention purposes, being monitored in the Pacemaker Clinic. Battery change was done recently * 5. Diabetes, managed by endocrinology. * 6. Hyperlipidemia, on medical therapy, under control. * 7. Hypothyroidism, on replacement therapy. * 8. Sleep apnea on CPAP machine. * 9. Patient is at risk for falls, education provided to prevent future falls with emphasis on utilizing the walker instead of the cane * 10. History of ventricular tachycardia with no recurrent events, currently on amiodarone therapy * 11. Paroxysmal atrial fibrillation status post recent cardioversion April 2021. We will continueEliquis * Felipa Milligan MD, FACC * JOSÉ LUIS GIL is being seen for [facility]. * Is in the office for follow-up for recent admission to the hospital where he was seen by my associate Dr. Mims and the amiodarone was increased leading to return of rhythm to sinus from atrial fibrillation. His EKG revealed ventricular pacemaker rhythm. The patient has been stable relatively speaking and utilizes the walker for ambulation at home. I spoke on the phone with his daughter who is a nurse regarding my assessment and the next step in the planning. There has been no indication of worsening heart failure and no angina or AICD discharges. His weight apparently increased several pounds from when he left the hospital and apparently he is sneaking fluid above and beyond his limits. Education was provided that regard to the patient. He is currently anticoagulated. He was seen by pulmonary medicine and was told he has COPD and has been given therapy for that. His examination todayrevealed clear lungs. His card examination was normal. Most recent ejection fraction was 40%. Was ta dariusz off of the enalapril when he was in the hospital and will need to resume it given his LV dysfunction and hypertension. * ASSESSMENT AND PLAN: * 1. Severe coronary artery disease, status post bypass surgery in the remote past, cardiac catheterization May 2021 revealed patent ZAVALA and 2 other vein grafts, the last graft was occluded but there was excellent collaterals. Medical therapy was recommended. We will continue aggressive risk factor management for CAD * 2. ischemic cardiomyopathy stage C, functional class II NYHA for CHF, continue Coreg and Aldactone and add enalapril that was recently discontinued * 4. AICD in place for primary prevention purposes, being monitored in the Pacemaker Clinic. * 5. Diabetes, managed by endocrinology. * 6. Hyperlipidemia, on medical therapy, under control. * 7. Hypothyroidism, on replacement therapy. * 8. Sleep apnea on CPAP machine. * 9. Patient is at risk for falls, education provided to prevent future falls with emphasis on utilizing the walker instead of the cane * 10. History of ventricular tachycardia with no recurrent events, currently on amiodarone therapy * 11. Paroxysmal atrial fibrillation status post recent cardioversion April 2021. We will continueEliquis and amiodarone therapy. We will continue amiodarone surveillance testing * 12. COPD based on recent assessed by pulmonary medicine on medical therapy and stable * Enclosed you will find an order form to have your Pulmonary Functions Test done at [facility]. The specific time and date of your testing is indicated on the form. It is also necessary for you to have a chest x-ray as well as lab work. These tests are needed if you are on one of the following medications: Cordarone, Pacerone, or Amiodarone. * (If your testing is being performed at [facility] - please enter through the [facility] entrance - NOT the Emergency Room entrance. ) * If you are unable to keep the appointment that has been made for you, please contact our office at [phone] and press option #3 so that we may assist you in rescheduling. * Thank you for your compliance with this testing, * The Staff * [facility] * Note: You MAY NOT USE inhalers for 4 hours PRIOR to your Pulmonary Function Test * [facility] 10/20/2021 @ 10:30 AM * JOSÉ LUIS GIL is being seen for a 4 month follow-up of. * Patient is in the office for follow-up for the problems noted below. I saw him in the hospital lastweekend when he was there for increasing lower extremity edema and dyspnea. He was switched to torsemide for diuresis and was discharged home in stable condition. He has been declining recently with i nability to exercise or to function. His cardiac status has been stable with no indication of decompensated heart failure or active CAD. He has had no further atrial fibrillation on amiodarone and his defibrillator has been stable as well. He has major depression and has bipolar disorder and follows with psychiatry. His depression score came back quite high which is very significant but contributing to his decline. His lungs sounded normal his heart was regular he had no lower extremity edema and his blood pressure was normal. He was very comfortable in his wheelchair. His daughter who is a nurse was with him today and explained to her in details my views of her father's case. I offered no changes in medical therapy for the time being. * ASSESSMENT AND PLAN: * 1. Severe coronary artery disease, status post bypass surgery in the remote past, cardiac catheterization May 2021 revealed patent ZAVALA and 2 other vein grafts, the last graft was occluded but there was excellent collaterals. Medical therapy was recommended. We will continue aggressive risk factor management for CAD continue nitrates * 2. ischemic cardiomyopathy stage C, functional class II NYHA for CHF, continue Coreg, enalapril andAldactone * 4. AICD in place for primary prevention purposes, being monitored in the Pacemaker Clinic. * 5. Diabetes, managed by endocrinology. * 6. Hyperlipidemia, on medical therapy, under control. * 7. Hypothyroidism, on replacement therapy. * 8. Sleep apnea on CPAP machine. * 9. Patient is at risk for falls, education provided to prevent future falls with emphasis on utilizing the walker instead of the cane, physical therapy is working with the patient * 10. History of ventricular tachycardia with no recurrent events, currently on amiodarone therapy * 11. Paroxysmal atrial fibrillation, currently his EKG showed atrial pacemaker rhythm he is on amiodarone. We will continue Eliquis and amiodarone therapy. We will continue amiodarone surveillance testing * 12. COPD based on recent assessed by pulmonary medicine on medical therapy and stable * 13. High depression score on the background of bipolar disorder. Advised the daughter to check withpsychiatry on other changes needed in medical therapy. * 14. Severe debilitation caused by combination of factors. There is no decompensation on the cardiovascular and, emphasized the need for physical therapy and management of depression * JOSÉ LUIS GIL is being seen for a 4 month follow-up of. * Patient is in the office for follow-up for the problems noted below accompanied by his . Today's visit was a good 1 since she is looking better and feeling better and recent echocardiogram from February 2022 showed ejection fraction between 50 and 55%. Which is an improvement from previously. He has had no AICD discharges. His pacemaker check is due. His diabetes is under better control. He has no volume overload and denies any angina. His blood pressure is under control. His kidney function is stable in stage III. His lungs sounded normal his card examination was unremarkable he had no lower extremity edema. Recently his psychiatric medications have been withheld and reduced with improvement of his mental state. His gait is improving and he will be transitioned shortly from the walker to a cane. * ASSESSMENT AND PLAN: * 1. Severe coronary artery disease, status post bypass surgery in the remote past, cardiac catheterization May 2021 revealed patent ZAVALA and 2 other vein grafts, the last graft was occluded but there was excellent collaterals. Medical therapy was recommended. We will continue aggressive risk factor management for CAD continue nitrates * 2. ischemic cardiomyopathy stage C, functional class II NYHA for CHF, ejection fraction February 2022 was 50-55% significantly better from before, continue Coreg, enalapril and Aldactone * 4. AICD in place for primary prevention purposes, being monitored in the Pacemaker Clinic. * 5. Diabetes, managed by endocrinology. * 6. Hyperlipidemia, on medical therapy, under control. * 7. Hypothyroidism, on replacement therapy. * 8. Sleep apnea on CPAP machine. * 9. Significant frailty, physical therapy work with the patient twice weekly, he will be transitioned next week from a walker to a cane, advised patient to avoid falling down since he is anticoagulated * 10. History of ventricular tachycardia with no recurrent events, currently on amiodarone therapy * 11. Paroxysmal atrial fibrillation, currently his EKG showed atrial pacemaker rhythm he is on amiodarone. We will continue Eliquis and amiodarone therapy. We will continue amiodarone surveillance testing * 12. COPD based on recent assessed by pulmonary medicine on medical therapy and stable * 13. Manic depressive disorder on medical therapy followed by psychiatry * Enclosed you will find an order form to have your Pulmonary Functions Test done at [facility]. The specific time and date of your testing is indicated on the form. It is also necessary for you to have a chest x-ray as well as lab work. These tests are needed if you are on one of the following medications: Cordarone, Pacerone, or Amiodarone. * (If your testing is being performed at [facility] - please enter through the [facility] entrance - NOT the Emergency Room entrance. ) * If you are unable to keep the appointment that has been made for you, please contact our office at [phone] and press option #3 so that we may assist you in rescheduling. * Thank you for your compliance with this testing, * The Staff * [facility] * Note: You MAY NOT USE inhalers for 4 hours PRIOR to your Pulmonary Function Test * [facility] 06/08/2022 @ 12:45 pm * JOSÉ LUIS GIL is being seen for a 6 month follow-up of. * Patient is in the office for follow-up for the problems noted below accompanied by his . He wasseen by neurology recently and imaging studies revealed no indication of Parkinson's disease but hedoes have significant tremor in the right upper extremity. The patient has uncontrolled diabetes man aged by his PCP. I suggested starting Jardiance if he can afford it 10 mg daily. His device in the pacemaker clinic evaluation was unremarkable he has AICD in place. EKG today confirmed atrial pacemaker rhythm. He is on amiodarone therapy with no ventricular or atrial arrhythmias amiodarone testinghas been in place. He does have hyperlipidemia under control and his blood pressure is under control as well. He has no angina orthopnea PND or lower extremity edema. He is ambulating independently using a walker. Has not needed nitroglycerin use lately. * ASSESSMENT AND PLAN: * 1. Severe coronary artery disease, status post bypass surgery in the remote past, cardiac catheterization May 2021 revealed patent ZAVALA and 2 other vein grafts, the last graft was occluded but there was excellent collaterals. Medical therapy was recommended. We will continue aggressive risk factor management for CAD continue nitrates * 2. ischemic cardiomyopathy stage C, functional class II NYHA for CHF, ejection fraction February 2022 was 50-55% significantly better from before, continue Coreg, enalapril and Aldactone * 4. AICD in place for primary prevention purposes, being monitored in the Pacemaker Clinic. * 5. Diabetes, managed by PCP. A1c is still above target. I suggested adding Jardiance 10 mg daily ifhe can afford it. * 6. Hyperlipidemia, on medical therapy, under control. * 7. Hypothyroidism, on replacement therapy. Under control * 8. Sleep apnea on CPAP machine. * 9. Right upper extremity tremor evaluated by neurology was felt not to be Parkinson's and may be related to his bipolar disorder medication which has been weaned off gradually * 10. History of ventricular tachycardia with no recurrent events, currently on amiodarone therapy * 11. Paroxysmal atrial fibrillation, currently his EKG showed atrial pacemaker rhythm he is on amiodarone. We will continue Eliquis and amiodarone therapy. We will continue amiodarone surveillance testing * 12. COPD stable * 13. Manic depressive disorder on medical therapy followed by psychiatry * 14. Obesity, patient was encouraged to reduce caloric consumption especially from snacks 15. High risk medication with Eliquis and amiodarone both have been monitored closely. follow up for Parkinsonism. 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 Advance Directives and Living Will Advance Directive Response Recorded Date/ Time Advance Directives No February 01, 2018 10:21am Advance Directive Response Recorded Date/ Time Advance Directives No February 01, 2018 11:21am Summary Purpose Chief Complaint and Reason for Visit Chief Complaint rectal bleeding Reason for Visit Acute lower GI bleed ing Chief Complaint rectal bleeding bladder lesions, hematuria Reason for Visit Acute lower GI bleed ing Haemorrhage postprocedure Rectal bleeding Chief Complaint rectal bleeding bladder lesions, hematuria bladder lesions, hematuria Reason for Visit Acute lower GI bleed ing Haemorrhage postprocedure Rectal bleeding Chief Complaint rectal bleeding bladder lesions, hematuria bladder lesions, hematuria Phimosis Reason for Visit Acute lower GI bleed ing Haemorrhage postprocedure Rectal bleeding Chief Complaint rectal bleeding bladder lesions, hematuria bladder lesions, hematuria Phimosis Phimosis Reason for Visit Acute lower GI bleed ing Haemorrhage postprocedure Rectal bleeding Chief Complaint SOB Chief Complaint SOB rectal bleeding and diarrhea rectal bleeding and diarrhea Reason for Referral Specialty Diagnoses / Procedures Referred By Gutierrez hobbs Referred To Contact Diagnoses Paroxysmal atrial fibrillation (CMS/HCC) Procedures ECG 12 Lead Felipa Mliligan MD [address] [address], [place] [address] Referral ID Status Reason Start Date Expiration Date V isits Requested Visits Authorized [id number] Pending Review 04/04/2023 04/03/2024 1 1 Specialty Diagnoses / Procedures Referred By Gutierrez hobbs Referred To Contact Cardiology Diagnoses Atherosclerosis of coronary artery bypass graft of [place] heart without angina pectoris S/P PTCA (percutaneous transluminal coronary angioplasty) Ventricular tachycardia (paroxysmal) (CMS/HCC) Procedures Follow Up In Cardiology Felipa Milligan MD [address] [facility] 2, [address] [address] Felipa Milligan MD [address] [facility] 2, [address] [address] Referral ID Status Reason Start Date Expiration Date V isits Requested Visits Authorized [id number] Authorized 04/04/2023 04/03/2024 1 1 Specialty Diagnoses / Procedures Referred By Contac t Referred To Contact Radiology Diagnoses Memory loss Procedures CT head wo IV contrast Keisha Brambila, DEL[facility] [address] [address] Referral ID Status Reason Start Date Expiration Date V isits Requested Visits Authorized [id number] Pending Review 02/20/2023 08/19/2023 1 1 Additional Source Comments Reason for Visit (unrecogniz ed section and content) Reason Comments Medication Management Reason Onset Date Comments Appointment 02/15/2023 Reason Comments Memory Loss Specialty Diagnoses / Procedures Referred By Contac t Referred To Contact Geriatric Medicine Diagnoses dementia (per stephanie) Procedures geriatric assessment [facility] [address] [address] [facility] [address] [address] Referral ID Status Reason Start Date Expiration Date Visits Re quested Visits Authorized [id number] Closed 02/16/2023 08/15/2023 1 1 Reason Comments Memory Loss Reason Comments Parkinson's Disease Reason Comments Hospital Follow-up Specialty Diagnoses / Procedures Referred By Contac t Referred To Contact Cardiology Diagnoses Atherosclerosis of coronary artery bypass graft of [place] heart without angina pectoris Procedures Follow Up In Cardiology Eyad Mims MD [address] [facility] [address], [address] [address] Referral ID Status Reason Start Date Expiration Date V isits Requested Visits Authorized [id number] Authorized 03/14/2023 09/10/2023 1 1 Reason Comments Follow-up 6m Specialty Diagnoses / Procedures Referred By Contac t Referred To Contact Cardiology Diagnoses Atherosclerosis of coronary artery bypass graft of [place] heart without angina pectoris S/P PTCA (percutaneous transluminal coronary angioplasty) Ventricular tachycardia (paroxysmal) (Multi) Procedures Follow Up In Cardiology Felipa Milligan MD [address] [facility], [address] [place] [address] Felipa Milligan MD [address] [facility], [address] [place] [address] Referral ID Status Reason Start Date Expiration Date V isits Requested Visits Authorized [id number] Authorized 04/04/2023 04/03/2024 1 1 Care Teams (unrecognized sec tion and content) Mimeographer Relationship Specialty Start Date End Date Mona Baker MD [address] [place] [address] PCP - General Family Medicine 06/21/21 Mimeographer Relationship Specialty Start Date End Date Mona Baker MD [address] [place] [address] PCP - General Family Medicine 06/21/21 Team Status: Active Member Role Status Yanna Baker MD Primary Care Provider Active Janusz Reed MD Emergency Provider Active Janusz Davidson DO Admit Provider, Attending Provider Active Bill Mcgee MD Other Provider Active Team Status: Active Member Role Status Yanna Baker MD Primary Care Provider Active Team Status: Inactive Member Role Status Yanna Baker MD Primary Care Provider Active Janusz Reed MD Emergency Provider Active Janusz Davidson DO Admit Provider, Attending Provider Active Bill Mcgee MD Other Provider Active Team Status: Inactive Member Role Status Yanna Baker MD Primary Care Provider Active Andi Ware MD Attending Provider Active Janusz Davidson DO Other Provider Active Team Status: Inactive Member Role Status Yanna Baker MD Primary Care Provider Active Andi Ware MD Attending Provider Active Mimeographer Relationship Specialty Start Date End Date Mona Baker [address] [place] [address] PCP - General Family Medicine 02/16/23 Mimeographer Relationship Specialty Start Date End Date Mona Baker [address] [place] [address] PCP - General Family Medicine 02/16/23 Mimeographer Relationship Specialty Start Date End Date Mona Baker [address] [place] [address] PCP - General Family Medicine 02/16/23 Mimeographer Relationship Specialty Start Date End Date Mona Baker MD [address] [place] [address] PCP - General 06/04/14 Mimeographer Relationship Specialty Start Date End Date Mona Baker MD [address] [place] [address] PCP - General 06/04/14 Elly Hill, DELIVERER [employer]CH[employer]ISE[employer]ONLINE EDITOR [address] [facility], [address] [place] [address] [place] [address] Nurse Practitioner Neurology 03/30/23 Team Status: Inactive Member Role Status Dates Mona Baker MD Primary Care Provider Active Lorenzo Petty MD Emergency Provider Active Team Status: Inactive Member Role Status Dates Mona Baker MD Primary Care Provider Active Start: June 17, 2023 End: June 17, 2023 Lorenzo Petty MD Emergency Provider Active Star t: June 17, 2023 End: June 17, 2023 Team Status: Active Member Role Status Dates Mona Baker MD Primary Care Provider Active Start: July 18, 2023 Janusz Ruiz MD Attending Provider Active Sta rt: July 18, 2023 Team Status: Active Member Role Status Dates Mona Baker MD Primary Care Provider Active Start: July 26, 2023 Janusz Ruiz MD Attending Provider Active Sta rt: July 26, 2023 Team Status: Active Member Role Status Dates Mona Baker MD Primary Care Provider Active Start: August 11, 2023 Janusz Ruiz MD Attending Provider Active Sta rt: August 11, 2023 Team Status: Inactive Member Role Status Dates Mona Baker MD Primary Care Provider Active Start: September 06, 2023 End: September 06, 2023 Bill Mcgee MD Attending Provider Active S tart: September 06, 2023 End: September 06, 2023 Team Status: Active Member Role Status Dates Mona Baker MD Primary Care Provider Active Start: September 06, 2023 Bill Mcgee MD Attending Provider, Other Provide r Active Start: September 06, 2023 Mimeographer Relationship Specialty Start Date End Date Mona Baker MD [address] [place] [address] PCP - General 06/04/14 Elly Hill, DELIVERER [employer] EDITOR [address] [place] [address], [address] [place] [address] Nurse Practitioner Neurology 03/30/23 Mimeographer Relationship Specialty Start Date End Date Mona Baker MD [address] [place] [address] PCP - General Family Medicine 06/21/21 (unrecognized sect ion and content) No Status Records FoundNo Status Records FoundNo Status Records FoundNo Status Records FoundNo Status Records FoundNo Status Records FoundNo Status Records FoundNo Status Records FoundNo Status Records FoundNo Status Records FoundNo Status Records FoundNo Status Records Found INFORMATION SOURCE (unrecogn ized section and content) DATE CREATED AUTHOR 08/13/2021 [facility] DATE CREATED AUTHOR AUTHOR'S ORGANIZ ATION 08/22/2022 [facility] DATE CREATED AUTHOR AUTHOR'S ORGANIZ ATION 09/03/2022 [facility] DATE CREATED AUTHOR AUTHOR'S ORGANIZ ATION 10/05/2022 [facility] DATE CREATED AUTHOR AUTHOR'S ORGANIZ ATION 11/21/2022 [facility] DATE CREATED AUTHOR AUTHOR'S ORGANIZ ATION 03/08/2023 [facility] DATE CREATED AUTHOR AUTHOR'S ORGANIZ ATION 09/16/2023 [facility] DATE CREATED AUTHOR AUTHOR'S ORGANIZ ATION 09/26/2023 [facility] DATE CREATED AUTHOR AUTHOR'S ORGANIZ ATION 10/19/2023 [facility] DATE CREATED AUTHOR AUTHOR'S ORGANIZ ATION 10/28/2023 [facility] EP[facility] DATE CREATED AUTHOR AUTHOR'S ORGANIZ ATION 10/31/2023 [facility] DATE CREATED AUTHOR AUTHOR'S ORGANIZ ATION 11/02/2023 [facility] Goals (unrecognized section and content) Goals may be documented in a n alternate section FOR RECORDS PERTAINING TO PATIENTS WHO ARE OR HAVE BEEN ENROLLED IN A CHEMICAL DEPENDENCY/SUBSTANCEABUSE PROGRAM, SOME INFORMATION MAY BE OMITTED. This clinical summary was aggregated from multiple sources. Caution should be exercised in using it in the provision of clinical care. This summary normalizes information from multiple sources, and as a consequence, information in this document may materially change the coding, format and clinical context of patient data. In addition, data may be omitted in some cases. CLINICAL DECISIONS SHOULD BE BASED ON THE PRIMARY CLINICAL RECORDS. [employer] provides no warranty or guarantee of the accuracy or completeness of information in this document.
[2023-11-07 22:38] LABS: Glucometer 253 mg/dL (74-106)
[2023-11-07] MEDS: IPRATROPIUM/ALBUTEROL SULFATE 3 ML AMPUL.NEB IH (23:24)
[2023-11-07 23:30] VITALS: PULSE 60; O2SAT 95
[2023-11-07 23:31] VITALS: PULSE 60; O2SAT 98
[2023-11-07 23:46] LABS: Lactate/Lactic Acid 3.2 mmol/L (0.4-2.0)
[2023-11-08] VITALS (58 sets, daily range): BP systolic 144–167; BP diastolic 64–75; PULSE 59–76; TEMP 36.2–36.9; O2SAT 91–98
[2023-11-08] MEDS: CARBIDOPA/LEVODOPA 25 MG-100 MG TABLET 1 TAB PO (00:19)
[2023-11-08] MEDS: 0.9 % SODIUM CHLORIDE 1,000 ML 100 ML IV ×3 (01:00→23:38)
[2023-11-08] MEDS: IPRATROPIUM/ALBUTEROL SULFATE 3 ML AMPUL.NEB IH ×3 (04:02→22:32)
[2023-11-08] MEDS: PIPERACILLIN SODIUM/TAZOBACTAM 3.375 GM in 0.9 % SODIUM CHLORIDE 50 ML IV ×3 (04:11→21:52)
[2023-11-08 04:54] LABS: Basophils Absolute Auto 0.1 10^3/uL (0.0-0.1); Basophils Percent Auto 0.6 % (0.2-2.0); Eosinophils Absolute Auto 0.2 10^3/uL (0.0-0.7); Eosinophils Percent Auto 2.9 % (0.9-7.0); Hemoglobin 8.7 g/dL (14.0-18.0); Immature Granulocytes Abs Auto 0.05 10^3/uL (0.00-0.03); Immature Granulocytes Pct Auto 0.6 % (0.0-0.5); Lymphocytes Percent Auto 23.7 % (20.5-60.0); Mean Corpuscular HGB Conc 31.1 g/dL (29.9-35.2); Mean Corpuscular Hemoglobin 28.2 pg (25.9-34.0); Mean Corpuscular Volume 90.9 fL (80.0-94.0); Mean Platelet Volume 8.7 fL (9.5-13.5); Monocytes Absolute Auto 0.8 10^3/uL (0.3-0.8); Monocytes Percent Auto 9.1 % (1.7-12.0); Neutrophils Absolute Auto 5.3 10^3/uL (1.4-6.5); Neutrophils Percent Auto 63.1 % (43.0-75.0); Platelet Count 220 10^3/uL (150-450); Red Blood Count 3.08 10^6/uL (4.70-6.10); Red Cell Distribution Width 14.3 % (11.0-15.0); White Blood Count 8.3 10^3/uL (4.0-11.0)
[2023-11-08 05:17] LABS: Chol HDL Ratio 2.9; Cholesterol 125 mg/dL (<=200); HDL Cholesterol 43 mg/dL (40-60); LDL Cholesterol Calculated 55.4 mg/dL; Triglycerides 133 mg/dL (<=150); VLDL CHOLESTEROL 26.6 mg/dL
[2023-11-08 05:57] LABS: Glucometer 163 mg/dL (74-106)
[2023-11-08] MEDS: LACTATED RINGER'S SOLUTION 1,000 ML 50 ML IV (09:38)
[2023-11-08 09:43] LABS: Glucometer 140 mg/dL (74-106)
--- NOTE | 2023-11-08 09:44 | PM.CN ---
Consult Note: [facility] Data of Consult Consult date: 11/08/23 Requesting Physician: Shaikh Tiburcio MD Primary Care Provider: JANET PAEZ Consult Narrative Reason for consult: Left foot infection Narrative: Patient is a 72-year-old male with diabetes and history of left foot Charcot who is well-known to my practice and previously underwent left foot reconstruction years ago. He was last seen in the wound center approximately 2 weeks ago due to a new wound on his left fifth metatarsal base secondary to new diabetic shoes. At that visit he had no signs of infection and was treated with local wound care/debridement however patient relates that approximately week ago he started having increased redness, and swelling around the wound. He is on chronic suppression amoxicillin as managed by Dr. Ruiz from infectious disease. He presented to the emergency department yesterday due to this increased redness around his wound for concern of infection. He was ultimately admitted to the hospitalist but vital signs were stable and was afebrile. He had no leukocytosis but severe elevation in inflammatory markers which are concerning for deep space infection including acute osteomyelitis. X-rays upon admission were negative for acute osteo. He was admitted to the hospitalist and made n.p.o. overnight and was started on broad-spectrum IV antibiotics cc:: CC: Shaikh Tiburcio MD Review of Systems ROS Status of ROS 10 or more systems reviewed and unremarkable except as noted in history and below Constitutional Reports: fatigue and malaise Integumentary/Breast Reports: redness and non-healing lesion (Left foot wound with surrounding redness) [facility] Medical History (Updated 11/08/23 @ 09:52 by Jude Ma DPM) Hypothyroid ?E03.9 - Hypothyroidism, unspecified (ICD-10) Presence of combination internal cardiac defibrillator (ICD) and pacemaker ?Z95.810 - Presence of automatic (implantable) cardiac defibrillator (ICD-10) Bladder cancer ?C67.9 - Malignant neoplasm of bladder, unspecified (ICD-10) A-fib ?I48.91 - Unspecified atrial fibrillation (ICD-10) Chronic osteomyelitis ?M86.60 - Other chronic osteomyelitis, unspecified site (ICD-10) Asthma ?J45.909 - Unspecified asthma, uncomplicated (ICD-10) COPD (chronic obstructive pulmonary disease) ?J44.9 - Chronic obstructive pulmonary disease, unspecified (ICD-10) Bipolar 1 disorder ?F31.9 - Bipolar disorder, unspecified (ICD-10) HTN (hypertension) ?I10 - Essential (primary) hypertension (ICD-10) Heart attack ?I21.9 - Acute myocardial infarction, unspecified (ICD-10) Diabetes ?E11.9 - Type 2 diabetes mellitus without complications (ICD-10) Dementia ?F03.90 - Unspecified dementia, unspecified severity, without behavioral disturbance, psychotic disturbance, mood disturbance, and anxiety (ICD-10) Parkinsons disease ?G20.A1 - Parkinson's disease without dyskinesia, without mention of fluctuations (ICD-10) Surgical History (Updated 11/07/23 @ 22:44 by Sujata Richards) Hx of CABG ?Z95.1 - Presence of aortocoronary bypass graft (ICD-10) Hx of heart artery stent ?Z95.5 - Presence of coronary angioplasty implant and graft (ICD-10) Family History (Updated 11/07/23 @ 22:48 by Sujata Richards) Other Family history of cancer Family history of diabetes mellitus Family history of hypertension Social History (Updated 11/07/23 @ 22:49 by Sujata Richards) Within the past year, how often did you have a drink containing alcohol: never Within the past year, how many standard drinks containing alcohol did you have on a typical day: 1 or 2 Within the past year, how often did you have six or more drinks on one occasion: never Total score: 0 Score interpretation: A score less than 4 is consistent with normal alcohol consumption. Smoking status: Former smoker Non-prescribed substance use: denies use Previous occupational history: retired Highest level of school completed/degree received: Associate degree: academic program Are you now , , , , never or living with a partner: In a typical week, how many times do you talk on the telephone with family, friends, or neighbors: 3 or more times per week How often do you get together with friends or relatives: 3 or more times per week Little interest or pleasure in doing things: not at all Feeling down, depressed, or hopeless: not at all Feel stressed/tense/nervous/anxious/difficulty sleeping: not at all Do you think of yourself as: straight/heterosexual Gender Identity: male Meds Home Medications and Allergies Home Medications ?Medication ?Instructions ?Recorded ?Confirmed ?Type amoxicillin 500 mg-potassium 1 tab PO Q12H #20 tabs 10/12/23 11/07/23 Rx clavulanate 125 mg tablet (Augmentin) alprazolam 0.25 mg tablet 0.25 mg PO .Q8 PRN anxiety 11/07/23 11/07/23 History amiodarone 200 mg tablet 200 mg PO DAILY 11/07/23 11/07/23 History aripiprazole 10 mg tablet 10 mg PO DAILY 11/07/23 11/07/23 History aspirin 81 mg capsule 81 mg PO DAILY 11/07/23 11/07/23 History atorvastatin 80 mg tablet 80 mg PO DAILY 11/07/23 11/07/23 History carbidopa 25 mg-levodopa 100 mg 1 tab PO QID 11/07/23 11/07/23 History tablet cyanocobalamin (vitamin B-12) 1,000 mcg IM .Q 30 Days 11/07/23 11/07/23 History 1,000 mcg/mL injection solution enalapril maleate 10 mg tablet 10 mg PO Q12H 11/07/23 11/07/23 History glimepiride 2 mg tablet 1 mg PO TID 11/07/23 11/07/23 History insulin aspart U-100 100 unit/mL 10 unit subcut .QHS 11/07/23 11/07/23 History (3 mL) subcutaneous pen (Novolog FlexPen U-100 Insulin aspart) isosorbide mononitrate 60 mg 60 mg PO DAILY 11/07/23 11/07/23 History tablet,extended release 24 hr lamotrigine 200 mg tablet 200 mg PO DAILY 11/07/23 11/07/23 History levothyroxine 175 mcg tablet 175 mcg PO QAM 11/07/23 11/07/23 History metformin 1,000 mg tablet 500 mg PO BID 11/07/23 11/07/23 History pantoprazole 40 mg tablet,delayed 40 mg PO DAILY 11/07/23 11/07/23 History release tamsulosin 0.4 mg capsule 0.4 mg PO Q24H 11/07/23 11/07/23 History torsemide 20 mg tablet 20 mg PO DAILY 11/07/23 11/07/23 History trihexyphenidyl 2 mg tablet 2 mg PO DAILY 11/07/23 11/07/23 History umeclidinium 62.5 mcg-vilanterol 1 inh inhalation Q24H 11/07/23 11/07/23 History 25 mcg/actuation powdr for inhalation (Anoro Ellipta) Allergies Allergy/AdvReac Type Severity Reaction Status Date / Time No Known Drug Allergies Allergy Verified 11/07/23 19:45 Exam Narrative Exam Narrative: Skin: Full-thickness ulceration over the left fifth metatarsal base. Wound base is primarily fibrotic with 5 cm of surrounding erythema. There is no fluctuance or purulent drainage Vascular: Pedal pulses are faintly palpable, digital hair growth is absent, no calf pain on squeeze Neuro absent protective and vibratory sensation. No pain out of proportion Musculoskeletal: No hindfoot or medial column range of motion. There is prominence of the fifth metatarsal base. Ankle joint range of motion is without pain Constitutional Vital Signs, click to edit/add: Last Vital Signs Temp 98.2 F 11/08/23 08:16 Pulse 60 11/08/23 08:16 Resp 18 11/08/23 08:16 BP 167/75 H 11/08/23 08:16 Pulse Ox 94 L 11/08/23 08:16 O2 Del Method Nasal Cannula 11/08/23 08:16 O2 Flow Rate 2 11/08/23 08:16 Results Labs Labs: Short CBC 11/07/23 11/08/23 Range/Units 20:11 04:41 WBC 9.2 8.3 (4.0-11.0) 10^3/uL Hgb 10.2 L 8.7 L (14.0-18.0) g/dL Hct 33.3 L 28.0 L (42.0-54.0) % Plt Count 265 220 (150-450) 10^3/uL BMP 11/07/23 20:11 Sodium 140 Potassium 4.1 Chloride 102 Carbon Dioxide 29.3 BUN 25.0 H Creatinine 1.80 H Glucose 252 H Calcium 8.4 L Assessment and Plan Assessment and Plan (1) Cellulitis of left foot: (2) Ulcer of left foot with fat layer exposed: (3) Type 2 diabetes mellitus with foot ulcer: (4) Type 2 diabetes mellitus with diabetic polyneuropathy: Plan Patient seen and evaluated and patient has been n.p.o. since midnight I recommended operative I&D and written and verbal consent was obtained Patient is at high risk for deep space infection and need for major amputation Continue vancomycin and Zosyn Given the severe elevation inflammatory markers there is concern for acute osteomyelitis however x-rays obtained upon admission were inconclusive Will follow
--- NOTE | 2023-11-08 09:54 | PM.ORONB ---
Brief Operative Note Date of procedure: 11/08/23 Pre-op diagnosis general: Left foot ulcer with cellulitis possible osteomyelitis Post-op diagnosis: other (Left foot ulcer with cellulitis and acute osteomyelitis) Procedure: Procedure performed: Left foot ostectomy of fifth metatarsal, debridement of ulcer down to and including bone, application of short leg splint Indications for procedure: Please see consultation note Intraoperative findings: Wound with fibrotic base measured 3.1 x 2.5 cm. Erythema surrounding the wound measured 5 cm. Upon excision of the wound base there was a sinus that tracked down to the fifth metatarsal base. Upon debriding bone bone was soft and was prominent plantarly as well as laterally. The prominence was removed and the brevis tendon was debrided and its insertion left intact due to healthy appearing tendon. Bone of the fifth metatarsal was soft and osteopenic but there was no purulence or discoloration of the bone. Wound edges did bleed appropriately. Procedure in detail: Patient was identified in preoperative holding at which time correct side and site were marked and consent was obtained. Patient is receiving vancomycin and Zosyn on the floor therefore no additional antibiotics were given. Patient was brought back to the operating theater placed on table in supine position and general anesthesia was administered. The left foot and ankle were then prepped and draped in usual sterile fashion and a tourniquet was placed but was not inflated during the procedure. Formal timeout was performed. Attention to the wound on the left lateral foot the wound was excised and a 3-1 ellipse and upon excising the wound base a sinus was noted to track to the fifth metatarsal base. All nonviable soft tissue was completely excised to healthy bleeding tissue. The incision was extended slightly exposing the peroneus brevis tendon which had healthy appearing tendon. The bone exposed from the wound was then curetted and was notably soft therefore decision was made to excise the prominence of the fifth metatarsal and doing so dissection was taken plantarly along the surface of the fifth metatarsal base. An osteotome was then used to remove a portion of the lateral and plantar aspects of the fifth metatarsal which was then passed the back table to be sent to pathology. Surgical site was then irrigated with 3 L normal saline on pulse lavage. Outer gloves were removed and a clean rongeur was used to obtain a proximal specimen of the fifth metatarsal to be sent to microbiology. 1 g of vancomycin powder was placed onto the surgical site after irrigation then the wound edges were closed in 1 layer and several retention sutures were placed for hemostasis but the wound was left open to allow for any drainage. A dry sterile dressing followed by multiple layers of cast padding were applied from the forefoot to the popliteal fossa followed by a loosely applied layer of Leroy wrap's then additional layers of cast padding were applied followed by a posterior plaster splint which was held in place by Leroy wrap's. The foot and ankle were held in the neutral position was allowed to dry. Patient tolerated the procedure and anesthesia well was transferred to the recovery room. Postoperative plan: Transfer to medical surgical unit under the care of the hospitalist Continue broad-spectrum antibiotics Nonweightbearing while in the splint but will hopefully transition the patient to a total contact cast prior to discharge I discussed case with Dr. Ruiz (ID) who recommended augmentin and cipro upon d/c (while discontinuing amoxacillin) - will adjust antibiotics as outpatient based on culture results Will follow Anesthesia: General-LMA Surgeon: Jude Ma Label Remover: Darrel Cruz Estimated blood loss (mL): 25 Tourniquet time (min): 0 Pathology: other (bone from 5th metatarsal to pathology & microbiology) Condition: stable Disposition: PACU
--- NOTE | 2023-11-08 10:29 | CM.NOTE ---
Rounds made with Dr. Dey. To OR today with podiatry. Pt to remain in house and changed to Inpatient status due to failed outpatient treatment. No discharge today.
[2023-11-08] MEDS: BUPIVACAINE HCL 0.5% PF 50 MG/10 ML VIAL INJ (10:31)
[2023-11-08] MEDS: LIDOCAINE HCL 1% 100 MG/10 ML MDV INJ (10:32)
--- NOTE | 2023-11-08 10:39 | P.HP_ITS ---
HPI H&P: HPI History of Present Illness Chief complaint: wound check CELLULITIS LEFT FOOT Narrative: 72 y o male presented to ED last night swelling/pain/erythema around left foot ulcer. 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 He is also on oral augmentin for chronic supressive therapy for chronic OM of left foot. Patient was seen in ED for left foot diabetic ulcer last month and that's when he had just developed this ulcer around his left ankle. He follows up with pod as outpatient. 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 Upon evaluation in ED, he was noted to have elevated ESR, CRP, lactic acidosis and was admitted for treatment for cellulitis, diabetci foot infection/infected chronic diabetic ulcer. He was started on IV vancomycin/zosyn as he failed outpatient abx therapy and has multiple risk factors including T2DM, foot deformity and is at high risk of poor outcome, relapse and if untreated can lead to amputation. Patient was initially admitted as observation but given his prior hx, presentation, and the fact that he has failed outpatient therapy, already had ED visit for similar problem and underwent debridement for it, he was switched to inpatient as we anticipate that he will need inpatient stay, IV abx for >2 MN. He was being taken to OR this morning when I evaluated him this morning. Opioid HPI Opioid Management Most Recent Opioid Data: Last Pain Assessment 11/08/23 09:08 Last ORT Total Score 0 11/07/23 22:27 Last ORT Risk Category Low Risk 11/07/23 22:27 Review of Systems ROS Status of ROS 10 or more systems reviewed and unremark able except as noted in history and below [facility] Medical History (Updated 11/08/23 @ 10:59 by Shaikh Tiburcio MD) On Coumadin for atrial fibrillation ?I48.91 - Unspecified atrial fibrillation (ICD-10) ?Z79.01 - [facility] (current) use of anticoagulants (ICD-10) Hypothyroid ?E03.9 - Hypothyroidism, unspecified (ICD-10) Presence of combination internal cardiac defibrillator (ICD) and pacemaker ?Z95.810 - Presence of automatic (implantable) cardiac defibrillator (ICD-10) Bladder cancer ?C67.9 - Malignant neoplasm of bladder, unspecified (ICD-10) A-fib ?I48.91 - Unspecified atrial fibrillation (ICD-10) Chronic osteomyelitis ?M86.60 - Other chronic osteomyelitis, unspecified site (ICD-10) Asthma ?J45.909 - Unspecified asthma, uncomplicated (ICD-10) COPD (chronic obstructive pulmonary disease) ?J44.9 - Chronic obstructive pulmonary disease, unspecified (ICD-10) Bipolar 1 disorder ?F31.9 - Bipolar disorder, unspecified (ICD-10) HTN (hypertension) ?I10 - Essential (primary) hypertension (ICD-10) Heart attack ?I21.9 - Acute myocardial infarction, unspecified (ICD-10) Diabetes ?E11.9 - Type 2 diabetes mellitus without complications (ICD-10) Dementia ?F03.90 - Unspecified dementia, unspecified severity, without behavioral disturbance, psychotic disturbance, mood disturbance, and anxiety (ICD-10) Parkinsons disease ?G20.A1 - Parkinson's disease without dyskinesia, without mention of fluctuations (ICD-10) Surgical History (Updated 11/07/23 @ 22:44 by Sujata Richards) Hx of CABG ?Z95.1 - Presence of aortocoronary bypass graft (ICD-10) Hx of heart artery stent ?Z95.5 - Presence of coronary angioplasty implant and graft (ICD-10) Family History (Updated 11/07/23 @ 22:48 by Sujata Richards) Other Family history of cancer Family history of diabetes mellitus Family history of hypertension Social History (Updated 11/07/23 @ 22:49 by Sujata Richards) Within the past year, how often did you have a drink containing alcohol: never Within the past year, how many standard drinks containing alcohol did you have on a typical day: 1 or 2 Within the past year, how often did you have six or more drinks on one occasion: never Total score: 0 Score interpretation: A score less than 4 is consistent with normal alcohol consumption. Smoking status: Former smoker Non-prescribed substance use: denies use Previous occupational history: retired Highest level of school completed/degree received: Associate degree: academic program Are you now , , , , never or living with a partner: In a typical week, how many times do you talk on the telephone with family, friends, or neighbors: 3 or more times per week How often do you get together with friends or relatives: 3 or more times per week Little interest or pleasure in doing things: not at all Feeling down, depressed, or hopeless: not at all Feel stressed/tense/nervous/anxious/difficulty sleeping: not at all Do you think of yourself as: straight/heterosexual Gender Identity: male Meds Home Medications and Allergies Home Medications ?Medication ?Instructions ?Recorded ?Confirmed ?Type alprazolam 0.25 mg tablet 0.25 mg PO .Q8 PRN anxiety 11/07/23 11/07/23 History amiodarone 200 mg tablet 200 mg PO DAILY 11/07/23 11/07/23 History aripiprazole 10 mg tablet 10 mg PO DAILY 11/07/23 11/07/23 History aspirin 81 mg capsule 81 mg PO DAILY 11/07/23 11/07/23 History atorvastatin 80 mg tablet 80 mg PO DAILY 11/07/23 11/07/23 History carbidopa 25 mg-levodopa 100 mg 1.5 tab PO QID 11/07/23 11/08/23 History tablet cyanocobalamin (vitamin B-12) 1,000 mcg IM .Q 30 Days 11/07/23 11/07/23 History 1,000 mcg/mL injection solution enalapril maleate 10 mg tablet 10 mg PO Q12H 11/07/23 11/07/23 History glimepiride 2 mg tablet 1 mg PO BIDWM 11/07/23 11/08/23 History insulin aspart U-100 100 unit/mL 10 unit subcut .QHS 11/07/23 11/07/23 History (3 mL) subcutaneous pen (Novolog FlexPen U-100 Insulin aspart) isosorbide mononitrate 60 mg 60 mg PO DAILY 11/07/23 11/07/23 History tablet,extended release 24 hr lamotrigine 200 mg tablet 200 mg PO DAILY 11/07/23 11/07/23 History levothyroxine 175 mcg tablet 175 mcg PO QAM 11/07/23 11/07/23 History metformin 1,000 mg tablet 500 mg PO BID 11/07/23 11/07/23 History pantoprazole 40 mg tablet,delayed 40 mg PO DAILY 11/07/23 11/07/23 History release tamsulosin 0.4 mg capsule 0.4 mg PO Q24H 11/07/23 11/07/23 History torsemide 20 mg tablet 20 mg PO DAILY 11/07/23 11/07/23 History trihexyphenidyl 2 mg tablet 2 mg PO DAILY 11/07/23 11/07/23 History umeclidinium 62.5 mcg-vilanterol 1 inh inhalation Q24H 11/07/23 11/07/23 History 25 mcg/actuation powdr for inhalation (Anoro Ellipta) carvedilol 25 mg tablet 25 mg PO BID 11/08/23 11/08/23 History collagenase clostridium histo. 250 1 applic topical DAILY 11/08/23 11/08/23 History unit/gram topical ointment (Santyl) warfarin 4 mg tablet 4 mg PO .QD 11/08/23 11/08/23 History Allergies Allergy/AdvReac Type Severity Reaction Status Date / Time No Known Drug Allergies Allergy Verified 11/07/23 19:45 Exam Constitutional Vital Signs, click to edit/add: Last Vital Signs Temp 98.2 F 11/08/23 08:16 Pulse 60 11/08/23 08:16 Resp 18 11/08/23 08:16 BP 167/75 H 11/08/23 08:16 Pulse Ox 94 L 11/08/23 08:16 O2 Del Method Nasal Cannula 11/08/23 08:16 O2 Flow Rate 2 11/08/23 08:16 Documenting provider has reviewed patient's vital signs: yes Common normals: no apparent distress, average body habitus and oriented x3 General appearance: cooperative and comfortable Respiratory Common normals: normal respiratory effort, no use of accessory muscles and clear to auscultation bilaterally Effort & inspection: able to speak in complete sentences Cardio Common normals: no JVD, S1 normal heart sound and S2 normal heart sound GI Common normals: Normal to inspection, nondistended, normoactive bowel sounds present Extremity Other: left foot -charcots arthopathy/deformity. Ulcer at left lateral malleollus, painful with surrounding erythema. No discharge noted but according to patient had greyish/purulent discharge Neuro Common normals: oriented x3, moves all extremities and no focal motor deficits Psych Common normals: mental status grossly normal, denies homicidal ideation and denies suicidal ideation Results Labs Labs: Short CBC 11/07/23 11/08/23 Range/Units 20:11 04:41 WBC 9.2 8.3 (4.0-11.0) 10^3/uL Hgb 10.2 L 8.7 L (14.0-18.0) g/dL Hct 33.3 L 28.0 L (42.0-54.0) % Plt Count 265 220 (150-450) 10^3/uL [facility] 11/07/23 20:11 Sodium 140 Potassium 4.1 Chloride 102 Carbon Dioxide 29.3 BUN 25.0 H Creatinine 1.80 H Glucose 252 H Calcium 8.4 L Assessment and Plan Assessment and Plan (1) Cellulitis of left foot: Assessment and Plan: Left foot cellulitis, associated left foot ulcer, failed outpatient abx therapy. Podiatry consulted, patient taken to OR - awaiting operative report and further plan of care as per Pod (2) Ulcer of left foot with fat layer exposed: Assessment and Plan: No evidence of OM on XR. Podiatry on board. Patient taken to OR for debridement, floroscopic exam, possible I&D, bone biopsy. Awaiting OR report. On broad spectrum abx, c/w vanc/zosyn. (3) Type 2 diabetes mellitus with foot ulcer: Assessment and Plan: Diaebtic, on oral medications. D/c oral meds. SSI while inpatient. Monitor Blodo glucose closely. Qualifiers: Diabetes mellitus equipment operator intermodal yard insulin use: without equipment operator intermodal yard use Qualified Code(s): E11.621 - Type 2 diabetes mellitus with foot ulcer; L97.509 - Non-pressure chronic ulcer of other part of unspecified foot with unspecified severity (4) LAWANDA (acute kidney injury): Assessment and Plan: Serum cr elevated, likely LAWANDA. Monitor. On IVF. Hold torsemide (5) Anemia: Assessment and Plan: Anemia on work up, ordered iron profile. baseline Hb is 10-11 Qualifiers: Anemia type: unspecified type Qualified Code(s): D64.9 - Anemia, unspecified (6) Type 2 diabetes mellitus with diabetic polyneuropathy: Assessment and Plan: SSI while inpatient. Check A1C Qualifiers: Diabetes mellitus equipment operator intermodal yard insulin use: without group home use Qualified Code(s): E11.42 - Type 2 diabetes mellitus with diabetic polyneuropathy (7) Hypothyroid: Assessment and Plan: c/w synthyroid Qualifiers: Hypothyroidism type: unspecified Qualified Code(s): E03.9 - Hypothyroidism, unspecified (8) A-fib: Assessment and Plan: on amiodarone. Coumadin for stroke px. Qualifiers: Atrial fibrillation type: paroxysmal Qualified Code(s): I48.0 - Paroxysmal atrial fibrillation (9) COPD (chronic obstructive pulmonary disease): Assessment and Plan: Stable. No wheezing. duonebs as needed. Qualifiers: COPD type: unspecified COPD Qualified Code(s): J44.9 - Chronic obstructive pulmonary disease, unspecified (10) Bipolar 1 disorder: Assessment and Plan: Stable mood. C/w home medications (11) HTN (hypertension): Assessment and Plan: Stable. C/w home medications/. Qualifiers: Hypertension type: primary hypertension Qualified Code(s): I10 - Essential (primary) hypertension (12) Parkinsons disease: Assessment and Plan: Stable. C/w home meds Qualifiers: Dyskinesia presence: without dyskinesia Fluctuating manifestations: without fluctuating manifestations Qualified Code(s): G20.A1 - Parkinson's disease without dyskinesia, without mention of fluctuations (13) On Coumadin for atrial fibrillation: Assessment and Plan: Check INR. Pharmacy consulted for coumadin dosing. (14) Lactic acidosis: Assessment and Plan: improved with hydration. C/w IVF. Plan c/w IVF for LAWANDA, Broad spectrum IV abx for cellulitis, diabetic foot ulcer, follow up cultures. Monitor closely.
--- NOTE | 2023-11-08 10:46 | PC.NURSE ---
bovie pad and tourniquet applied but not used
[2023-11-08] MEDS: VANCOMYCIN HCL 1,000 MG VIAL 1000 MG TOPICAL (10:55)
[2023-11-08 11:11] LABS: Glucometer 165 mg/dL (74-106)
--- NOTE | 2023-11-08 11:13 | XR_ITS ---
The [address] [address] Patient Name: JOSÉ LUIS ENRIQUEZ MRN: [id number] date: 1950 Sex: M Assigned Patient Location: [place] Current Patient Location: [place] Accession/Order Number: [id number] Exam Date: 11/08/2023 12:00 Report Date: 11/08/2023 14:22 At the request of: JOHN COLLADO Procedure: XR foot LT min 3V EXAM: XR foot LT min 3V HISTORY: postop xr COMPARISON: 10/12/2023 FINDINGS/IMPRESSION: 1. No acute fracture or dislocation 2. Plate and screw fixation of the left mid foot extending to the first tarsometatarsal joint. There are other calcaneal and midfoot surgical fusion screws. No apparent hardware complication. 3. No ankle joint effusion. 4. No subcutaneous soft tissue edema about the foot. Electronically authenticated by: JERE REDDY Date: 11/08/2023 14:22
--- NOTE | 2023-11-08 11:17 | SWNOTE1 ---
SW attempted to see pt, but he was in the OR. SW to assess later today.
[2023-11-08 12:23] LABS: Glucometer 170 mg/dL (74-106)
[2023-11-08] MEDS: POTASSIUM CHLORIDE 10 MEQ ER TABLET 20 MEQ PO (13:06)
[2023-11-08] MEDS: OMEPRAZOLE 20 MG CAPSULE.DR PO (13:07)
[2023-11-08] MEDS: ASPIRIN 81 MG TAB.CHEW PO (13:07)
[2023-11-08] MEDS: LAMOTRIGINE 100 MG TABLET 200 MG PO (13:07)
[2023-11-08] MEDS: ISOSORBIDE MONONITRATE 60 MG TAB.ER.24H PO (13:07)
[2023-11-08] MEDS: AMIODARONE HCL 200 MG TABLET PO (13:07)
[2023-11-08] MEDS: INSULIN ASPART 300 UNIT/3 ML PEN SUBQ ×3 (13:08→21:48)
[2023-11-08 13:35] LABS: INR 1.02; Partial Thromboplastin Time 30.2 sec (22.3-36.2); Prothrombin Time 10.8 sec (9.0-11.6)
--- NOTE | 2023-11-08 14:34 | SWNOTE1 ---
GORDON met with pt, pt's , and pt's daughter in room. Pt is at home with his . Daughter also assists at the home as well. Pt has a ramp to get in to the home. Pt also has a lift chair, wheelchair, bedside commode, scooter, lift chair, and grab bars in the bathroom. Pt sleeps in the recliner at home. Pt has about 15-20 feet from chair to his bathroom. Pt was able to pivot transfer to chair to wheelchair. Family also voices on some days he can get up and walk with his walker as well. voiced he has Parkinson's and it depends on the day. SW spoke to them about discahrge planning. Pt's daughter voiced that he is supposed get a cast put on so that he can bear weight prior to being discharged. Pt has not worked with therapy yet, btu as of now he is NWB. She voiced with him being NWB right now, he may struggle with therapy. If he does get cast prior to discharge and is able to bear weight he may be alright to go home. Pt and family voiced the goal is for him to return home. Daughter did state he has been to rehab before, he went to [facility]. Pt has also had HH in past, but daughter and voiced he did the exercises when HH was there, but they could not get him to do them when HH was gone. is not to sure about having HH come back in. At this time I expressed to pt and family that we will see how therapy goes and then determine discharge plans. Important Message from Medicare reviewed and discussed with patient. Pt. verbalized understanding and signed the form. Original given to patient and copy placed in patient?s chart.
[2023-11-08 15:08] LABS: Percent Iron Saturation 13.6 %
[2023-11-08 15:10] LABS: Estimated Average Glucose 186 mg/dL; Glycohemoglobin A1C 8.1 % (4.5-6.2)
[2023-11-08 16:17] LABS: Glucometer 309 mg/dL (74-106)
[2023-11-08] MEDS: ATORVASTATIN CALCIUM 40 MG TABLET 80 MG PO (16:59)
[2023-11-08] MEDS: CARBIDOPA/LEVODOPA 25 MG-100 MG TABLET 1.5 TAB PO ×2 (16:59→20:22)
[2023-11-08] MEDS: ARIPIPRAZOLE 5 MG TABLET 10 MG PO (16:59)
[2023-11-08] MEDS: CARVEDILOL 25 MG TABLET PO (17:00)
[2023-11-08] MEDS: WARFARIN SODIUM 3 MG TABLET 6 MG PO (17:00)
[2023-11-08] MEDS: VANCOMYCIN HCL 1,250 MG in 0.9 % SODIUM CHLORIDE 250 ML 166.667000000000002 MG IV (17:02)
[2023-11-08 20:17] LABS: Glucometer 308 mg/dL (74-106)
[2023-11-08] MEDS: PREGABALIN 75 MG CAPSULE PO (20:22)
[2023-11-09] VITALS (16 sets, daily range): BP systolic 130–185; BP diastolic 63–85; PULSE 58–66; TEMP 36.7–37.3; O2SAT 91–97
[2023-11-09 04:08] LABS: Transferrin 195 mg/dL (177-329)
[2023-11-09] MEDS: IPRATROPIUM/ALBUTEROL SULFATE 3 ML AMPUL.NEB IH ×3 (04:15→16:35)
[2023-11-09 04:47] LABS: Basophils Percent Auto 0.1 % (0.2-2.0); Hematocrit 27.6 % (42.0-54.0); Hemoglobin 8.9 g/dL (14.0-18.0); Immature Granulocytes Abs Auto 0.07 10^3/uL (0.00-0.03); Immature Granulocytes Pct Auto 0.7 % (0.0-0.5); Lymphocytes Percent Auto 10.8 % (20.5-60.0); Mean Corpuscular HGB Conc 32.2 g/dL (29.9-35.2); Mean Corpuscular Hemoglobin 28.7 pg (25.9-34.0); Mean Platelet Volume 9.1 fL (9.5-13.5); Monocytes Absolute Auto 0.5 10^3/uL (0.3-0.8); Monocytes Percent Auto 5.5 % (1.7-12.0); Neutrophils Absolute Auto 7.9 10^3/uL (1.4-6.5); Neutrophils Percent Auto 82.9 % (43.0-75.0); Platelet Count 239 10^3/uL (150-450); Red Cell Distribution Width 13.9 % (11.0-15.0); White Blood Count 9.5 10^3/uL (4.0-11.0)
[2023-11-09 05:08] LABS: INR 1.03; Prothrombin Time 10.9 sec (9.0-11.6)
[2023-11-09 05:37] LABS: Alanine Aminotransferase 16 U/L (16-63); Albumin Globulin Ratio 0.7; Albumin Level 2.7 g/dL (3.4-5.0); Alkaline Phosphatase 89 U/L (46-116); Anion Gap 13.3; Aspartate Amino Transferase 23 U/L (15-37); BUN Creatinine Ratio 14.1; Bilirubin Total 0.4 mg/dL (0.2-1.0); Calcium 7.8 mg/dL (8.5-10.1); Carbon Dioxide 24.8 mmol/L (21.0-32.0); Chloride 105 mmol/L (98-107); Estimated GFR (African America 59 (>=60); Estimated GFR (Non-African Ame 49 (>=60); Glucose 180 mg/dL (74-106); Potassium 4.1 mmol/L (3.5-5.1); Sodium 139 mmol/L (136-145); Total Protein 6.7 g/dL (6.4-8.2)
[2023-11-09] MEDS: LEVOTHYROXINE SODIUM 175 MCG TABLET PO (05:51)
[2023-11-09] MEDS: PIPERACILLIN SODIUM/TAZOBACTAM 3.375 GM in 0.9 % SODIUM CHLORIDE 50 ML IV (05:52)
--- NOTE | 2023-11-09 08:23 | SWNOTE1 ---
SW checked PT note from yesterday and it is recommended for pt to have Home Health at discharge. SW to speak with pt and family today.
[2023-11-09] MEDS: AMIODARONE HCL 200 MG TABLET PO (09:29)
[2023-11-09] MEDS: INSULIN ASPART 300 UNIT/3 ML PEN SUBQ ×3 (09:29→17:48)
[2023-11-09] MEDS: TAMSULOSIN HCL 0.4 MG CAPSULE 0.400000000000000022 MG PO (09:29)
[2023-11-09] MEDS: ASPIRIN 81 MG TAB.CHEW PO (09:29)
[2023-11-09] MEDS: PREGABALIN 75 MG CAPSULE PO (09:30)
[2023-11-09] MEDS: OMEPRAZOLE 20 MG CAPSULE.DR PO (09:30)
[2023-11-09] MEDS: CARVEDILOL 25 MG TABLET PO ×2 (09:30→17:45)
[2023-11-09] MEDS: LAMOTRIGINE 100 MG TABLET 200 MG PO (09:30)
[2023-11-09] MEDS: ISOSORBIDE MONONITRATE 60 MG TAB.ER.24H PO (09:30)
[2023-11-09] MEDS: POTASSIUM CHLORIDE 10 MEQ ER TABLET 20 MEQ PO (09:30)
[2023-11-09] MEDS: CARBIDOPA/LEVODOPA 25 MG-100 MG TABLET 1.5 TAB PO ×3 (09:30→17:45)
--- NOTE | 2023-11-09 10:23 | W.PM.WC_ITS ---
Wound Consult Note Assessment and Plan (1) Cellulitis of left foot: (2) Ulcer of left foot with fat layer exposed: (3) Type 2 diabetes mellitus with foot ulcer: Qualifiers: Diabetes mellitus long term acute care registered nurse insulin use: without fpc use Qualified Code(s): E11.621 - Type 2 diabetes mellitus with foot ulcer; L97.509 - Non-pressure chronic ulcer of other part of unspecified foot with unspecified severity (4) LAWANDA (acute kidney injury): (5) Anemia: Qualifiers: Anemia type: unspecified type Qualified Code(s): D64.9 - Anemia, unspecified (6) Type 2 diabetes mellitus with diabetic polyneuropathy: Qualifiers: Diabetes mellitus long term acute care registered nurse insulin use: without fpc use Qualified Code(s): E11.42 - Type 2 diabetes mellitus with diabetic polyneuropathy (7) Hypothyroid: Qualifiers: Hypothyroidism type: unspecified Qualified Code(s): E03.9 - Hypothyroidism, unspecified (8) A-fib: Qualifiers: Atrial fibrillation type: paroxysmal Qualified Code(s): I48.0 - Paroxysmal atrial fibrillation (9) COPD (chronic obstructive pulmonary disease): Qualifiers: COPD type: unspecified COPD Qualified Code(s): J44.9 - Chronic obstructive pulmonary disease, unspecified (10) Bipolar 1 disorder: (11) HTN (hypertension): Qualifiers: Hypertension type: primary hypertension Qualified Code(s): I10 - Essential (primary) hypertension (12) Parkinsons disease: Qualifiers: Dyskinesia presence: without dyskinesia Fluctuating manifestations: without fluctuating manifestations Qualified Code(s): G20.A1 - Parkinson's disease without dyskinesia, without mention of fluctuations (13) On Coumadin for atrial fibrillation: (14) Lactic acidosis: Plan Consult: Apply TCC (Total Contact Cast) per Dr. Ma's orders Instructed by Dr. Ma to apply TCC post operatively to Mr. Faulkner. Removed RUBEN splint without complications. Patient had blood strike through on post op dressing. Removed dressing down to xeroform gauze. No odor, redness, pain noted. New gauze applied and TCC applied as per prefitter's directions. Patient tolerated well. Patient called family to bring his TCC boot to be applied around cast at discharge to assist with mobility/transfers. Updated Dr. Ma and Dr. Cruz regarding encounter. Merrill Ayoub MJN, RN, CWON
[2023-11-09] MEDS: ONDANSETRON PF 4 MG/2 ML VIAL IV (10:38)
--- NOTE | 2023-11-09 11:23 | SWNOTE1 ---
Total contact cast has been applied. SW to see how pt does with therapy.
[2023-11-09 11:37] LABS: Glucometer 202 mg/dL (74-106)
--- NOTE | 2023-11-09 11:46 | PM.DS1 ---
DS: Providers Provider Date of admission: 11/08/23 09:54 Primary care physician: JANET BAKER Admitting clinician: Shaikh Tiburcio Attending physician on admission: Shaikh Tiburcio Consults: 11/07/23 21:31 Consult to Podiatry Routine Consulting Provider: Jude Ma Reason for consultation: Cellulitis L foot Has provider been notified: Yes 11/08/23 11:13 Consult to Racking Machine Operator Routine Reason for consult:: Nursing Home Other reason:: Possible SNF, anticipate DC home Physical Therapy Eval and Treat Routine Reason for consultation: postop gait eval/fall risk, nwb LLE Attending physician on discharge: Shaikh Tiburcio Discharging clinician: Shaikh Tiburcio Anticipated date of discharge: 11/09/23 DS: Diagnosis Discharge Diagnosis (1) Cellulitis of left foot: Assessment and plan: s/p Left foot ostectomy of fifth metatarsal, debridement of ulcer down to and including bone, application of short leg splint, treated with IV vancomycin/zosyn. Podiatry discussed with ID provider that patient follows - added cipro/switched amoxicillin to augmentin for chronic suppressive therapy. he will need to f/u with ID and podiatry as outpatient. (2) Ulcer of left foot with fat layer exposed: Assessment and plan: s/p Left foot ostectomy of fifth metatarsal, debridement of ulcer down to and including bone, application of short leg splint F/u with Podiatry, ID. F/u bone cultures. (3) Type 2 diabetes mellitus with foot ulcer: Assessment and plan: Stable for discharge. No further inpatient work up /treatment necessary. F/u with Podiatry/ID as outpatient. Qualifiers: Diabetes mellitus nursing home insulin use: without nursing home use Qualified Code(s): E11.621 - Type 2 diabetes mellitus with foot ulcer; L97.509 - Non-pressure chronic ulcer of other part of unspecified foot with unspecified severity (4) LAWANDA (acute kidney injury): Assessment and plan: Resolved. (5) Anemia: Assessment and plan: Stable. More or less at baseline. Monitor/work up as outpaitent. Qualifiers: Anemia type: unspecified type Qualified Code(s): D64.9 - Anemia, unspecified (6) Type 2 diabetes mellitus with diabetic polyneuropathy: Assessment and plan: Polyneuropathy from T2 DM. At high risk of amputation/poor outcome from diabetic foot infection because of neuropathy and charcots deformity. Qualifiers: Diabetes mellitus nursing home insulin use: without intermediate manager use Qualified Code(s): E11.42 - Type 2 diabetes mellitus with diabetic polyneuropathy (7) Hypothyroid: Assessment and plan: c/w synthyroid Qualifiers: Hypothyroidism type: unspecified Qualified Code(s): E03.9 - Hypothyroidism, unspecified (8) A-fib: Assessment and plan: On amiodoarone and coumadin Qualifiers: Atrial fibrillation type: paroxysmal Qualified Code(s): I48.0 - Paroxysmal atrial fibrillation (9) COPD (chronic obstructive pulmonary disease): Assessment and plan: stable Qualifiers: COPD type: unspecified COPD Qualified Code(s): J44.9 - Chronic obstructive pulmonary disease, unspecified (10) Bipolar 1 disorder: Assessment and plan: c/w home medications (11) HTN (hypertension): Assessment and plan: c/w home medications/ Qualifiers: Hypertension type: primary hypertension Qualified Code(s): I10 - Essential (primary) hypertension (12) Parkinsons disease: Assessment and plan: well controlled. Qualifiers: Dyskinesia presence: without dyskinesia Fluctuating manifestations: without fluctuating manifestations Qualified Code(s): G20.A1 - Parkinson's disease without dyskinesia, without mention of fluctuations (13) On Coumadin for atrial fibrillation: Assessment and plan: c/w coumadin. will need close INR monitoring because of ciprofloxacin. (14) Lactic acidosis: Assessment and plan: resolved DS: Summary Hospital Course Hospital Course: 72 y o male presented to ED last night swelling/pain/erythema around left foot ulcer. He had outpatient debridement performed by his client care manager about a week ago and was treated with bactrim. He is also on oral augmentin for chronic suppressive therapy for chronic OM of left foot. Patient was seen in ED for left foot diabetic ulcer last month and that's when he had just developed this ulcer around his left ankle. Upon evaluation in ED, he was noted to have elevated ESR, CRP, lactic acidosis and was admitted for treatment for cellulitis, diabetic foot infection/infected chronic diabetic ulcer. He was started on IV vancomycin/zosyn as he failed outpatient abx therapy and has multiple risk factors including T2DM, foot deformity, neuropathy and is at high risk of poor outcome, relapse and if untreated can lead to amputation. Patient was initially admitted as observation but given his prior hx, presentation, and the fact that he has failed outpatient therapy, already had ED visit for similar problem and underwent debridement for it, he was switched to inpatient. Patient was taken to OR on 11/08/23 and underwent Left foot ostectomy of fifth metatarsal, debridement of ulcer down to and including bone, application of short leg splint Podiatry discussed his abx therapy with ID provider that patient follows as outpatient - he will be discharged on oral ciprofloxacin and his amoxicillin switched to augmentin. He will need to follow up with Podiatry and ID as outpatient and will need close monitoring of INR, renal function while on chronic abx. Bone cultures obtained will also need follow up and abx changed according to the cultures. Status at Discharge Overall status at discharge: patient is back to baseline Time Spent with Patient Time attestation: Total time spent providing and/or coordinating discharge services: Time spent: greater than 30 minutes Exam Constitutional Vital Signs, click to edit/add: Last Vital Signs Temp 98.0 F 11/09/23 08:24 Pulse 60 11/09/23 11:30 Resp 18 11/09/23 08:24 BP 165/78 H 11/09/23 08:24 Pulse Ox 93 L 11/09/23 11:30 O2 Del Method Room Air 11/09/23 11:30 O2 Flow Rate 2 11/09/23 04:15 Documenting provider has reviewed patient's vital signs: yes Common normals: no apparent distress, average body habitus and oriented x3 General appearance: cooperative and comfortable Respiratory Common normals: normal respiratory effort, no use of accessory muscles and clear to auscultation bilaterally Effort & inspection: able to speak in complete sentences Cardio Common normals: no JVD, S1 normal heart sound and S2 normal heart sound Extremity Other: left foot in post op dressing/cast Neuro Common normals: oriented x3, moves all extremities and no focal motor deficits Psych Common normals: mental status grossly normal, denies homicidal ideation and denies suicidal ideation DS: Data Data Completed and Pending Labs on day of discharge: Labs from last 24 hours 11/09/23 11/09/23 11/08/23 11:35 04:30 20:15 WBC 9.5 RBC 3.10 L Hgb 8.9 L Hct 27.6 L MCV 89.0 MCH 28.7 MCHC 32.2 RDW 13.9 Plt Count 239 MPV 9.1 L Neut % (Auto) 82.9 H Lymph % (Auto) 10.8 L [place] % (Auto) 5.5 Eos % (Auto) 0.0 L Baso % (Auto) 0.1 L Neut # (Auto) 7.9 H Lymph # (Auto) 1.0 L [place] # (Auto) 0.5 Eos # (Auto) 0.0 Baso # (Auto) 0.0 Abs Immat Gran (auto) 0.07 H Imm/Tot Granulo (auto) 0.7 H PT 10.9 INR 1.03 APTT Sodium 139 Potassium 4.1 Chloride 105 Carbon Dioxide 24.8 Anion Gap 13.3 BUN 20.0 H Creatinine 1.42 H Est GFR ( Amer) 59 L Est GFR (Non-Af Amer) 49 L BUN/Creatinine Ratio 14.1 Glucose 180 H Estimat Average Glucose Hemoglobin A1c Calcium 7.8 L Iron TIBC % Saturation Transferrin Ferritin Total Bilirubin 0.4 AST 23 ALT 16 Alkaline Phosphatase 89 Total Protein 6.7 Albumin 2.7 L Globulin 4.0 Albumin/Globulin Ratio 0.7 Vitamin B12 Folate POC Glucose 202 H 308 H 11/08/23 11/08/23 11/08/23 16:15 13:11 12:21 WBC RBC Hgb Hct MCV MCH MCHC RDW Plt Count MPV Neut % (Auto) Lymph % (Auto) [place] % (Auto) Eos % (Auto) Baso % (Auto) Neut # (Auto) Lymph # (Auto) [place] # (Auto) Eos # (Auto) Baso # (Auto) Abs Immat Gran (auto) Imm/Tot Granulo (auto) PT 10.8 INR 1.02 APTT 30.2 Sodium Potassium Chloride Carbon Dioxide Anion Gap BUN Creatinine Est GFR ( Amer) Est GFR (Non-Af Amer) BUN/Creatinine Ratio Glucose Estimat Average Glucose Hemoglobin A1c Calcium Iron 30.0 L TIBC 221.0 L % Saturation 13.6 Transferrin 195 Ferritin 111.0 Total Bilirubin AST ALT Alkaline Phosphatase Total Protein Albumin Globulin Albumin/Globulin Ratio Vitamin B12 589.0 Folate 13.20 POC Glucose 309 H 170 H 11/08/23 04:41 WBC RBC Hgb Hct MCV MCH MCHC RDW Plt Count MPV Neut % (Auto) Lymph % (Auto) [place] % (Auto) Eos % (Auto) Baso % (Auto) Neut # (Auto) Lymph # (Auto) [place] # (Auto) Eos # (Auto) Baso # (Auto) Abs Immat Gran (auto) Imm/Tot Granulo (auto) PT INR APTT Sodium Potassium Chloride Carbon Dioxide Anion Gap BUN Creatinine Est GFR ( Amer) Est GFR (Non-Af Amer) BUN/Creatinine Ratio Glucose Estimat Average Glucose 186 Hemoglobin A1c 8.1 H Calcium Iron TIBC % Saturation Transferrin Ferritin Total Bilirubin AST ALT Alkaline Phosphatase Total Protein Albumin Globulin Albumin/Globulin Ratio Vitamin B12 Folate POC Glucose Preliminary micro results at discharge 11/08/23 10:45 - Preliminary Bone Discharge Plan Discharge Disposition: Home, Self-Care Condition: Good Discharge Medications: New amoxicillin-pot clavulanate [Augmentin] 500-125 mg tablet 1 tab PO DAILY Qty: 30 0RF ciprofloxacin HCl [Cipro] 250 mg tablet 250 mg PO BID Qty: 60 0RF Continued alprazolam 0.25 mg tablet 0.25 mg PO .Q8 PRN (Reason: anxiety) amiodarone 200 mg tablet 200 mg PO DAILY aripiprazole 10 mg tablet 10 mg PO DAILY atorvastatin 80 mg tablet 80 mg PO DAILY Patient Comments: takes at dinner carbidopa-levodopa 25-100 mg tablet 1.5 tab PO QID Patient Comments: 0800,1200,1600,2000 cyanocobalamin (vitamin B-12) 1,000 mcg/mL solution 1,000 mcg IM .Q 30 Days enalapril maleate 10 mg tablet 10 mg PO BIDWM glimepiride 2 mg tablet 1 mg PO BIDWM insulin aspart U-100 [Novolog FlexPen U-100 Insulin] 100 unit/mL (3 mL) insulin pen 10 unit SUBCUT .QHS isosorbide mononitrate 60 mg tablet extended release 24 hr 60 mg PO DAILY lamotrigine 200 mg tablet 200 mg PO DAILY levothyroxine 175 mcg tablet 175 mcg PO QAM metformin 1,000 mg tablet 500 mg PO BID pantoprazole 40 mg tablet,delayed release (DR/EC) 40 mg PO DAILY tamsulosin 0.4 mg capsule 0.4 mg PO QAM torsemide 20 mg tablet 20 mg PO DAILY trihexyphenidyl 2 mg tablet 2 mg PO DAILY Patient Comments: at dinner Anoro Ellipta 62.5-25 mcg/actuation blister with device 1 inh INHALATION Q24H aspirin 81 mg capsule 81 mg PO DAILY carvedilol 25 mg tablet 25 mg PO BID Santyl 250 unit/gram ointment 1 applic TOPICAL DAILY warfarin 4 mg tablet 4 mg PO .QD Rx Instructions: VO DR BOYLE - [facility] TO DOSE ferrous sulfate [Feosol] 325 mg (65 mg iron) tablet 325 mg PO DAILY cholecalciferol (vitamin D3) [Vitamin D3] 25 mcg (1,000 unit) capsule 1,000 unit PO DAILY coenzyme Q10 [CoQ-10] 100 mg capsule 100 mg PO DAILY magnesium oxide 400 mg magnesium tablet 400 mg PO DAILY nitroglycerin 0.4 mg tablet, sublingual 0.4 mg sublingual Q5M PRN (Reason: chest pain) Rx Instructions: do not exceed 3 doses per episode insulin aspart U-100 [Novolog FlexPen U-100 Insulin] 100 unit/mL (3 mL) insulin pen 2 - 10 sliding scale dose subcut ACHS Discontinued amoxicillin 500 mg capsule 500 mg PO DAILY Activity: increase activity as tolerated Diet: advance to your usual diet Print Language: Ukrainian Forms: Portal Instructions Follow Up Appointments: November 11 @ 2:20pm with Dr. Baker [phone] November 16 @ 10:30am with [facility] [address] [place] [address] Owen Reddy [phone]
--- NOTE | 2023-11-09 11:51 | PT.DAILY ---
Physical Therapy Daily Note PT Daily Note/Assess Start: 11/09/23 11:46 Freq: Status: Active Protocol: Document 11/09/23 11:30 VICENTE (Rec: 11/09/23 11:50 VICENTE [id number]) Visit Not Completed Visit Not Completed Visit Not Completed Due to: Other Other Reason Visit Not Completed Patient now with cast. Awaiting daughter to bring in boot to allow for WB. Nursing and social work want patient seen to see how he tolerates WB, however boot is not in facility this AM. Social work to call and daughter and see if they can get boot here sooner. Physical Therapy Daily Note/Assessment Time In/Time Out Time In 11:30 Time Out 11:30 GG. Functional Abilities and Goals-Complete for Swing Bed Patients Only [id number]. Self-Care [id number]. Mobility
--- NOTE | 2023-11-09 12:06 | CM.NOTE ---
Rounds made with Dr. Dey. Potential discharge later today after seen by Podiatry.
--- NOTE | 2023-11-09 13:18 | SWNOTE1 ---
GORDON spoke to Sravani and pt can't bear weight until family brings in boot. SW let nursing know and therapy. GORDON spoke to pt's in regards to discharge. Pt was able to stand yesterday with walker without bearing weight. GORDON did let pt's know that he will be discharged today. GORDON asked her about home health. She again voiced that he will do it when they come in, but will not do exercises once they are gone. She is not sure about HH and would like GORDON to talk to her daughter. GORDON to call daughter after lunch.
[2023-11-09] MEDS: HYDRALAZINE HCL 20 MG/ML VIAL 10 MG IVP (13:42)
--- NOTE | 2023-11-09 14:06 | SWNOTE1 ---
SW called and left message for pt's daughter in regards to HH.
--- NOTE | 2023-11-09 14:57 | SWNOTE1 ---
Pt's daughter left voicemail for SW. She voiced she spoke to her father and at this time they do not want home health coming in. They decided he will be able to bear weight with boot and be able to pivot transfer. She stated in voicemail if they decide they want HH, they will reach out to PCP.
--- NOTE | 2023-11-09 17:17 | DIETREC ---
Recommend 30 mL PRO-stat BID, 1 packet Jonel BID, and 237 mL Ensure Original BID to ensure adequate nutrients for healing. [place] text to Dr. Dey.
[2023-11-09] MEDS: ARIPIPRAZOLE 5 MG TABLET 10 MG PO (17:44)
[2023-11-09] MEDS: WARFARIN SODIUM 3 MG TABLET 6 MG PO (17:45)
[2023-11-09] MEDS: TRIHEXYPHENIDYL HCL 2 MG TABLET PO (17:48)
[2023-11-09] MEDS: ATORVASTATIN CALCIUM 40 MG TABLET 80 MG PO (17:48)
[2023-11-09 17:55] LABS: Glucometer 189 mg/dL (74-106)
--- NOTE | 2023-11-16 12:31 | CM.DCFOLLOWU ---
Person spoke with:daughter How are you feeling? Better How is your pain? no complaints. Did you understand your discharge instructions? yes Do you have any questions about your discharge instructions? no Were you given any prescriptions at discharge? yes Were you able to get your prescriptions filled? yes Do you understand how to take your medications as ordered? yes Do you have any questions about your follow up appointment and do you plan to keep your follow up appointment? Yes. Dr. Ma seen yesterday. Is there anything else that you would like to discuss? No. Thank you. Questions/Comments/Concerns/Other:
== END 2023-11-09 19:37 | disposition home or self-care (01) | DRG 629 ==
LOC: ER 21:13 → MS 22:19
PROVIDERS: Nurse Practitioner Acute Care; Physician Assistant; Podiatrist Foot & Ankle Surgery; Admitting Provider Internal Medicine; Emergency Provider Emergency Medicine; PCP Student in an Organized Health Care Education/Training Program; Visit Provider Internal Medicine
PROC: 0QBP0ZZ Excision of Left Metatarsal, Open Approach (ICD-10-PCS; principal; 2023-11-08 11:55)
DX: E11.621 Type 2 diabetes mellitus with foot ulcer (principal); E87.20 Acidosis, unspecified; L03.116 Cellulitis of left lower limb; M86.672 Other chronic osteomyelitis, left ankle and foot; L97.422 Non-pressure chronic ulcer of left heel and midfoot with fat layer exposed; L97.522 Non-pressure chronic ulcer of other part of left foot with fat layer exposed; N17.9 Acute kidney failure, unspecified; D64.9 Anemia, unspecified; E11.42 Type 2 diabetes mellitus with diabetic polyneuropathy; E03.9 Hypothyroidism, unspecified; I48.0 Paroxysmal atrial fibrillation; J44.9 Chronic obstructive pulmonary disease, unspecified; F31.9 Bipolar disorder, unspecified; I10 Essential (primary) hypertension; F02.80 Dementia in other diseases classified elsewhere, unspecified severity, without behavioral disturbance, psychotic disturbance, mood disturbance, and anxiety; G20.A1 Parkinson's disease without dyskinesia, without mention of fluctuations; E11.69 Type 2 diabetes mellitus with other specified complication; G47.33 Obstructive sleep apnea (adult) (pediatric); E78.5 Hyperlipidemia, unspecified; B96.4 Proteus (mirabilis) (morganii) as the cause of diseases classified elsewhere; B95.61 Methicillin susceptible Staphylococcus aureus infection as the cause of diseases classified elsewhere; Z79.899 Other long term (current) drug therapy; Z87.891 Personal history of nicotine dependence; Z95.810 Presence of automatic (implantable) cardiac defibrillator; Z85.51 Personal history of malignant neoplasm of bladder; I25.2 Old myocardial infarction; Z95.1 Presence of aortocoronary bypass graft; Z95.5 Presence of coronary angioplasty implant and graft; Z79.82 Long term (current) use of aspirin; Z79.01 Long term (current) use of anticoagulants; Z79.4 Long term (current) use of insulin; Z79.890 Hormone replacement therapy; Z79.84 Long term (current) use of oral hypoglycemic drugs
CPT/HCPCS: 11043; 36415; 73630; 80048; 80053; 80061; 82607; 82728; 82746; 82948; 83036; 83540; 83550; 83605; 84466; 85025; 85610; 85652; 85730; 86140; 87040; 87070; 87102; 87116; 87150; 87186; 87205; 87206; 88304; 94640; 94761; 96361; 96365; 96366; 96367; 96375; 96376; 97110; 97162; 99285; 99999; A6213; G0378; J0131; J0360; J0665; J1100; J1885; J2405; J2543; J2704; J3010; J3370

== ENCOUNTER 2023-11-16 11:41 | Outpatient (OUT) | payer MEDICARE, SELFPAY | END 2023-11-16 11:42 | disposition home or self-care (01) | LOC: WC 11:41 | PROVIDERS: PCP Student in an Organized Health Care Education/Training Program; Visit Provider Podiatrist Foot & Ankle Surgery | DX: E11.621 Type 2 diabetes mellitus with foot ulcer (principal); L97.422 Non-pressure chronic ulcer of left heel and midfoot with fat layer exposed | CPT/HCPCS: 29445 ==

== ENCOUNTER 2023-11-23 11:37 | Outpatient (OUT) | payer MEDICARE, SELFPAY | END 2023-11-23 11:38 | disposition home or self-care (01) | LOC: WC 11:37 | PROVIDERS: PCP Student in an Organized Health Care Education/Training Program; Visit Provider Podiatrist Foot & Ankle Surgery | DX: E11.621 Type 2 diabetes mellitus with foot ulcer (principal); L97.422 Non-pressure chronic ulcer of left heel and midfoot with fat layer exposed | CPT/HCPCS: 29445 ==

== ENCOUNTER 2023-11-30 10:59 | Outpatient (OUT) | payer MEDICARE, SELFPAY | END 2023-11-30 11:00 | disposition home or self-care (01) | LOC: WC 10:59 | PROVIDERS: PCP Student in an Organized Health Care Education/Training Program; Visit Provider Podiatrist Foot & Ankle Surgery | DX: E11.621 Type 2 diabetes mellitus with foot ulcer (principal); L97.422 Non-pressure chronic ulcer of left heel and midfoot with fat layer exposed | CPT/HCPCS: G0463 ==

== ENCOUNTER 2023-12-21 11:54 | Outpatient (OUT) | payer MEDICARE, SELFPAY | END 2023-12-21 11:55 | disposition home or self-care (01) | LOC: WC 11:54 | PROVIDERS: PCP Student in an Organized Health Care Education/Training Program; Visit Provider Podiatrist Foot & Ankle Surgery | DX: E11.621 Type 2 diabetes mellitus with foot ulcer (principal); L97.422 Non-pressure chronic ulcer of left heel and midfoot with fat layer exposed; L84 Corns and callosities; E11.65 Type 2 diabetes mellitus with hyperglycemia | CPT/HCPCS: G0463 ==

== ENCOUNTER 2024-03-15 17:47 | Emergency (ER) | payer MEDICARE, SELFPAY ==
[2024-03-15 17:55] VITALS: BP 157/64; PULSE 60; TEMP 36.9; O2SAT 95; BMI 31.6
--- OUTSIDE RECORDS SUMMARY | 2024-03-15 18:01 | XMS_ITS | CCD ---
Author Organization [facility] Care Team Providers Care Supervisor Orchard Name Role Phone Unavailable Unavailable Mona Baker Unavailable Mona Baker MD Primary Care Provider [phone] Mona Baker Primary Care Physician Luna Frank Unavailable Unavailable January Bravo Unavailable Unavailable Giselle Kelly Unavailable Unavailable Mona Baker MD Primary Care Provider Janusz Ruiz Unavailable MD Mona Baker Primary Care Provider Unavaila MD Janusz Contreras Emergency Provider DO Janusz Davidson Admit Provider [phone] DO Janusz Davidson Attending Provider MD Bill Mcgee Other Provider [phone] MD Andi Ware Attending Provider DO Janusz Davidson Other Provider Bill Mcgee Unavailable Dr. Mona Baker Primary Care Unavail able Dr. Jackie Mcginnis Attending Unavailable SnehalDr. Francisco wade Referring Unavailabl e Dr. Mona Baker Primary Care Unavail able Dr. Jackie Mcginnis Attending Unavailable JOHN PAUL PRINCE Admitting Unavailable JOHN PAUL PRINCE Attending Unavailable JANET BAKER Primary Care Unavailable JOHN PAUL PRINCE Admitting Unavailable JOHN PAUL PRINCE Attending Unavailable JANET BAKER Primary Care Unavailable WEST[place] Consulting Unavailable HIGHLANDER, JOHN PAUL James Consulting Unavailable HIGHLANDER, JOHN PAUL James Admitting Unavailable HIGHLANDER, JOHN PAUL James Attending Unavailable OLIVIA, [facility] Care Unavailable HIGHLANDER, JOHN PAUL James Admitting Unavailable OLIVIA, [facility] Care Unavailable HIGHLANDER, JOHN PAUL James Attending Unavailable HIGHLANDER, JOHN PAUL James Admitting Unavailable HIGHLANDER, JOHN PAUL James Attending Unavailable OLIVIA, [facility] Care Unavailable HIGHLANDER, JOH NPAUL James Admitting Unavailable HIGHLANDER, JOHN PAUL James Attending Unavailable OLIVIA, [facility] Unavailable ZIEBERDR TERRY Consulting Unavailable HIGHLANDER, JOHN PAUL James Consulting Unavailable HIGHLANDER, JOHN PAUL James Admitting Unavailable OLIVIA, [facility] Care Unavailable HIGHLANDER, JOHN PAUL James Attending Unavailable HIGHLANDER, JOHN PAUL James Admitting Unavailable OLIVIA, [facility] Care Unavailable HIGHLANDER, JOHN PAUL James Attending Unavailable HIGHLANDER, JOHN PAUL James Admitting Unavailable HIGHLANDER, JOHN PAUL James Attending Unavailable OLIVIA, [facility] Care Unavailable HIGHLANDER, JOHN PAUL James Admitting Unavailable HIGHLANDER, JOHN PAUL James Attending Unavailable OLIVIA, [facility] Care Unavailable HIGHLANDER, JOHN PAUL James Admitting Unavailable HIGHLANDER, JOHN PAUL James Attending Unavailable OLIVIA, [facility] Care Unavailable HIGHLANDER, JOHN PAUL James Admitting Unavailable HIGHLANDER, JOHN PAUL James Attending Unavailable OLIVIA, [facility] Care Unavailable ZIEBERDR TERRY Consulting Unavailable HIGHLANDER, JOHN PAUL James Consulting [facility] Olivia, Dr. Mona Jules Primary Care [...] Unavailable MilliganFelipa mario Referring Unavailable Olivia, Dr. Moan Jules Primary Care Unavail able Felipa Milligan Attending Unavailable Olivia Mona BROUSSARD Primary Care Provider Sergio JACKN-ABBY Elly J Unavailable MD Olivia [place] Primary Care Provider Unavaila MD Cayden Quinn Emergency Provider [phone] MD Mona Baker Primary Care Provider [phone] MD Cayden Petty Emergency Provider [phone] MD Bill Mcgee Attending Provider KEISHA BRAMBILA Attending Unavailable OLIVIA, MONA Primary Care Unavailable KEISHA BRAMBILA Attending Unavailable OLIVIA, [facility] Care Unavailable Mona Baker MD Jane Primary Care Provider Olivia BROUSSARD Mona Primary Care Provider MD Olivia Mona Primary Care Provider [phone] HOA Prince Attending Provider [phone] Olivia, Mona Primary Care Unavailable Bill Mcgee Admitting Unavailable Bill Mcgee Attending Unavailable Olivia, Mona Primary Care Unavailable Cayden Petty Admitting Unavailable Cayden Petty Attending Unavailable John Paul Prince Admitting Unavailable John Paul Prince Attending Unavailable Olivia, Mona Primary Care Unavailable Armani Yarbrough Attending Unavailable Diggs, Basem G. Referring Unavailable Diggs, Basem G. Attending Unavailable Caterina Basem GOri Admitting Unavailable MD Olivia Mona Primary Care Provider Diggs, Basem G. Admitting Unavailable Diggs, Basem G. Attending Unavailable Diggs, Basem G. Referring Unavailable Milligan, Leo Referring Unavailable Milligan, Leo Attending Unavailable Milligan, Leo Admitting Unavailable NONE, XXXX Referring Unavailable Diggs, Basem G. Admitting Unavailable Diggs, Basem G. Attending Unavailable Diggs, Basem G. Attending Unavailable NONE, XXXX Referring Unavailable GEHLOT, UPENDER Attending Unavailable OLIVIA, MONA Primary Care Unavailable OLIVIA, MONA Primary Care Unavailable GEHLOT, UPENDER Attending Unavailable GEHLOT, UPENDER Attending Unavailable OLIVIA, MONA Primary Care Unavailable Armani Yarbrough Attending Unavailable Armani Yarbrough Admitting Unavailable WARE, Andi R Referring Unavailable WARE, Andi R Attending Unavailable Blank, Janusz S Admitting Unavailable Blank, Janusz S Attending Unavailable McGuinn, Jeremías P Referring Unavailable McGuinn, Jeremías P Attending Unavailable McGuinn, Jeremías P Admitting Unavailable McGuinn, Jeremías P Referring Unavailable McGuinn, Jeremías P Attending Unavailable McGuinn, Jeremías P Admitting Unavailable QUIRKKEISHA D Attending Unavailable QUIRKKEISHA D Admitting Unavailable Blank, Janusz S Attending Unavailable Blank, Janusz S Admitting Unavailable Blank, Janusz S Admitting Unavailable Blank, Janusz S Attending Unavailable OliviaMona kennedy Attending Unavailable Mona Baker Admitting Unavailable AntowiczArmani Attending Unavailable Armani Yarbrough Attending Unavailable MilliganFelipa Attending Unavailable Milligan, Leo Admitting Unavailable DO Gissel HINDS Admitting Unavailabl e McGuinn, Jeremías P Consulting Unavailable Delvin SANTANA Attending Unavailable McGuinn, Jeremías P Consulting Unavailable McGuinn, Jeremías P Consulting Unavailable McGuinn, Jeremías P Consulting Unavailable McGuinn, Jeremías P Consulting Unavailable McGuinn, Jeremías P Consulting Unavailable McGuinn, Jeremías P Consulting Unavailable McGuinn, Jeremías P Consulting Unavailable McGuinn, Jeremías P Consulting Unavailable Rosi Valencia Admitting Unavailable Olaf SINCLAIR Attending Unavailable Armani Yarbrough Attending Unavailable Nicolás Diggs Attending Unavailable NONE, XXXX Referring Unavailable WARE, Andi R Referring Unavailable WARERadhaAndi R Attending Unavailable CHAZ, Andi R Admitting Unavailable January Kaplan Attending Unavailable January Kaplan Admitting Unavailable January Kaplan Referring Unavailable MilliganJamelan Referring Unavailable MilliganFelipa Attending Unavailable MilliganFelipa Admitting Unavailable QUIRKKEISHA D Referring Unavailable QUIRKEISHA Carter Attending Unavailable KEISHA BRAMBILA Admitting Unavailable NONE, XXXX Referring Unavailable Nicolás Diggs Attending Unavailable WARE, Andi R Admitting Unavailable WARE, Andi R Attending Unavailable WARE, Andi R Referring Unavailable Nicolás Diggs Referring Unavailable Nicolás Diggs Attending Unavailable Annemarie Tony Attending Unavailable MD Paul Samaniego Admitting Unavaila ble MD Paul Samaniego Attending Unavaila ble [facility], XXXX Consulting Unavailable Boaz Teresa Attending Unavailable Olivia Mona BROUSSARD Primary Care Provider MD Paul Samaniego Admitting Unavaila ble Boaz Teresa Attending Unavailable [facility], [facility] Consulting Unavailable Milligan, Leo Consulting Unavailable MD Felipa Milligan Consulting Unavailable Milligan, Leo Consulting Unavailable Milligan, Leo Consulting Unavailable Milligan, Leo Consulting Unavailable Milligan, Leo Consulting Unavailable Milligan, Leo Consulting Unavailable Milligan, Leo Consulting Unavailable Milligan, Leo Consulting Unavailable Milligan, Leo Consulting Unavailable JACKIE MCGINNIS Attending Unavailable OLIVIA, MONA JANE Primary Care Unavailable MILLIGANFELIPA Attending Unavailable JEREMÍAS MIMS Referring Unavailable [facility] Unavailable MILLIGAN, FELIPA M Referring Unavailable [facility], [facility] Primary Care Unavailable ABEBA PETTY Attending Unavailable MILLIGANFELIPA Attending Unavailable MILLIGAN, FELIPA M Referring Unavailable [facility], [facility] Primary Care Unavailable OLIVIAOMNA Attending Unavailable RUSHERPRINCESS Attending Unavailable OLIVIAMONA Attending Unavailable RUSHERPRINCESS Attending Unavailable OLIVIAMONA Attending Unavailable OLIVIAMONA Attending Unavailable RUSHERPRINCESS S Attending Unavailable OLIVIAMONA Referring Unavailable OLIVIA, MONA Ward Attending Unavailable RUSHERPRINCESS Attending Unavailable OLIVIAMONA Attending Unavailable MICAELA TIWARI Attending Unavailable OLIVIAMONA Attending Unavailable CHAYO FERNANDEZ Attending Unavailable Allergies Allergy Classification Reported Allergen(s) Allergy Type Date of Onset Reaction(s) Facility (8 sources) Piperacillin / tazobactam; Translations: [PIPERACILLIN-TA ZOBACTAM] Drug Allergy 1 GI Intolerance [facility] (1 source) Piperacillin / tazobactam Drug Allergy 1 [facility] (2 sources) Piperacillin / tazobactam Drug Allergy 1 [facility] (3 sources) Piperacillin Sod-Tazobactam So Drug Intolerance 1 [facility] Medications Current Medications Medication Drug Class(es) Dates [...] for mild pain (1 - 3). Active [id number] 200 actuat albuterol 0.09 mg/actuat metered dose [...] PUFF INHALATION Q4H February 05, 2018 12:00am albuterol HFA (P roAir HFA) 90 mcg/act inhaler 2 puffs Active ProAir HFA Activ e take 2 puff(s) by in halation every six hours as needed for wheezing albuterol 108 (90 Base) MCG/ACT inhaler Inhale 2 puffs every 6 hours as needed for wheezing. 0 Active albuterol 0.833 mg/ml / ipratropium bromide 0.167 mg/ml inhalation solution (20 sources) Anticholinergic, beta2-Adrenergic Agonist Start: 04-02-2023 ipratropium-albuterol (Duo-Neb) 0.5-2.5 mg/3 mL nebulizer solution Indications: Mixed simple and mucopurulent chronic bronchitis (CMS/HCC) Take 3 mL by nebulization in the morning and 3 mL in the evening and 3 mL before bedtime. 180 mL 3 04/02/2023 Active Start: 03-13-2023 take 3 mL by inhalat ion four times daily DuoNeb 2.5 mg-0.5 mg/3 mL Soln-Inh 3 mL, Inhalation, QID, 1 EA, Refill(s) 0, [facility], 172.7, cm, 03/09/23 15:05:00 EDT, Height/Length Dosing, 104.5, kg, 03/09/23 15:05:00 EDT, Weight Dosing Start Date: 03/13/23 Status: Ordered ALPRAZolam 0.25 mg oral tablet (20 sources) Benzodiazepine Start: 09-25-2023 take 1 tablet by mouth in the morning ALPRAZolam (Xanax) 0.25 MG tablet Indications: Bipolar 1 disorder (CMS/HCC) Take 1 tablet (0.25 mg) by mouth in the morning and 1 tablet (0.25 mg) before bedtime. 60 tablet 09/25/2023 Active Start: 05-12-2022 End: 09-06-2023 take 1 tablet [...] Date: 10/15/21 Status: Ordered Start: 09-27-2021 End: 01-29-2024 take 1 tablet by mouth three times [...] morning May 10, 2021 12:00am Start: 05-05-2021 End: 09-11-2024 take 1 tablet by mouth in the morning amiodarone (Pacerone) 200 MG tablet Indications: PAF (paroxysmal atrial fibrillation) (CMS/HCC) Take 1 tablet (200 mg) by mouth in the morning. 09/12/2023 09/11/2024 Active Start: 03-16-2021 take 1 tablet by lashawn th twice daily Amiodarone (Pacerone) 200 mg tablet Active 200 MG PO Twice daily May 10, 2021 12:00am Start: 03-15-2021 take 2 tablets by mo ut twice daily Amiodarone HCl - 200 MG Oral Tablet TAKE 2 TABLETS TWO TIMES DAILY Quantity: 120 Refills: 5 Ordered: 15-Mar-2021 Felipa Milligan MD Start : 15-Mar-2021 Active take 3 tablets by mo ut once daily amiodarone (Pacerone) 100 MG tablet Take 300 mg by mouth daily. 0 Active take 1.5 tablets by mouth once daily Amiodarone HCl - 200 MG Oral Tablet TAKE 1.5 TABLET Daily Quantity: 135 Refills: 3 Ordered: 22-Sep-2022 Felipa Milligan MD Active amoxicillin 500 mg oral capsule (20 sources) Penicillin-class Antibacterial Start: 02-24-2021 End: 10-18-2023 take 500 mg by mouth once daily Amoxicillin Active 500 MG PO Daily 90 90 October 18, 2023 3:53pm Start: 11-03-2020 take 1 capsule by mo ut twice daily amoxicillin 500 mg Cap 500 mg = 1 cap(s), Oral, BID, Dr. Ruiz, Refills(s) 0 Start Date: 02/22/22 Status: Ordered Start: 11-03-2020 Amoxicillin 50 0 MG Oral Capsule Quantity: 180 Refills: 0 Ordered: 25-Feb-2021 DO Start : 03-Nov-2020 Active take 1 tablet by lashawn th once daily amoxicillin (Amoxil) 500 MG tablet Take 500 mg by mouth daily. 0 Active Anoro Ellipta 62.5 mcg-25 mc g inhalation powder (20 sources) Start: 04-09-2023 End: 10-06-2023 Anoro Ellipta 62.5 mcg-25 mc g inhalation powder 1 inh, Inhalation, Daily for 30 day(s), 30 blister(s), Refill(s) 5, [facility], 177, cm, 04/09/23 9:40:00 EST, Height/Length Dosing, 99.6, kg, 04/09/23 9:40:00 EST, Weight Dosing Start Date: 04/09/23 Stop Date: 10/06/23 Status: Ordered Start: 03-31-2022 End: 09-27-2022 Anoro Ellipta 62.5 mcg-25 mc g inhalation powder 1 inh, Inhalation, Daily for 30 day(s), 1 packet(s), Refill(s) 5, [facility], 178, cm, 03/31/22 9:44:00 EDT, Height/Length Dosing, 104.5, kg, 03/31/22 9:44:00 EDT, Weight Dosing Start Date: 03/31/22 Stop Date: 09/27/22 Status: Ordered Start: 08-03-2021 Anoro Ellipta 62.5 mcg-25 mcg inhalation powder 1 inh, Inhalation, Daily, 30 blister(s), Refill(s) 5, [facility], 178, cm, 08/03/21 11:33:00 EST, Height/Length Dosing, 102.7, kg, 08/03/21 11:33:00 EST, Weight Dosing Start Date: 08/03/21 Status: Ordered Start: 08-03-2021 End: 01-30-2022 Anoro Ellipta 62.5 mcg-25 mc g inhalation powder 1 inh, Inhalation, Daily for 30 day(s), 30 blister(s), Refill(s) 5, [facility], 178, cm, 08/03/21 11:33:00 EST, Height/Length Dosing, 102.7, kg, 08/03/21 11:33:00 EST, Weight Dosing Start Date: 08/03/21 Stop Date: 01/30/22 Status: Ordered Anoro Ellipta 62.5-25 MCG/INH (5 sources) take 1 puff(s) by inhalation once daily Anoro Ellipta 62.5-25 MCG/INH 1 puff Inhalation Once a day Active apixaban 5 mg oral tablet (20 sources) Factor Xa Inhibitor Start: 03-15-20 End: 03-06-20 take 1 tablet by mouth twice daily Eliquis 5 mg oral tablet 5 mg = 1 tab(s), Oral, BID, Refills(s) 0 Start Date: 04/07/21 Status: Ordered ARIPiprazole 10 mg oral tablet (20 sources) Atypical Antipsychotic Start: 09-25-19 End: 01-29-20 take 1 tablet by mouth once daily ARIPiprazole (Abilify) 10 MG tablet Indications: Bipolar 1 disorder (CMS/HCC) Take 1 tablet (10 mg) by mouth Daily 30 tablet 09/25/2023 Active Start: 02-11-2022 take 2 tablets by [facility] once daily aripiprazole 5 mg Tab 10 [...] 04, 2018 11:00pm [facility] ARIP[facility]ole (Abilify) 10 mg disintegrating tablet Take 1 tablet (10 mg) by mouth once daily. Active ARIPiprazole (Abilify) 7.5 MG split tablet (2 sources) take 7 mg by mouth once daily ARIPiprazole (Abilify) 7.5 MG split tablet Take 7 mg by mouth daily. 0 Active aspirin 81 mg delayed release oral tablet (20 sources) Platelet Aggregation Inhibitor, Nonsteroidal Anti-inflammatory Drug Start: End: 3 take 1 tablet by mouth [...] Acid Decarboxylation Inhibitor, Aromatic Amino Acid Start: 11-21-2023 End: 11-20-2024 carbidopa-levodopa (Sinemet) 25-100 MG tablet Indications: Parkinson's disease with dyskinesia and fluctuating manifestations (CMS/HCC) Take 1.5 tablets by mouth in the morning and 1.5 tablets at noon and 1.5 tablets in the evening and 1.5 tablets before bedtime. 540 tablet 3 11/21/2023 11/20/2024 Active Start: 05-12-2022 take 1 tablet by lashawn th four times daily Carbidopa-Levodopa (Sinemet) 25-100 mg Tablet Active 1 TAB PO Four times daily May 12, 2022 1:00am Start: 02-09-2022 take 1.5 tablets by mouth three times daily carbidopa-levodopa 25 mg-100 mg Tab 1.5 tab(s), Oral, TID, Refill(s) 0 Start Date: 02/09/22 Status: Ordered Start: 02-09-2022 carbidopa-levo dopa 25 mg-100 mg Tab Refill(s) 0 Start Date: 02/09/22 Status: Ordered take 1 tablet by lashawn every eight hours Sinemet 10-100 MG 1 tablet Orally Three times a day Active carvedilol 25 mg oral tablet (20 sources) alpha-Adrenergic Valerio, beta-Adrenergic Valerio Start: 02-16-2021 Carvedilol 25 MG Oral Tablet Quantity: 180 Refills: 0 Ordered: 17-Feb-2021 DO Start : 16-Feb-2021 Active Start: 02-05-2018 take 1 tablet by lashawn twice daily carvedilol 25 mg Tab 25 mg = 1 tab(s), Oral, BID, # 120 tab(s), Refills(s) 0, Pharmacy: [facility], 172, cm, 07/17/21 14:15:00 EST, Height/Length Dosing, 113, kg, 07/17/21 14:15:00 EST, Weight Dosing Start Date: 07/22/21 Status: Ordered carvedilol (Core g) 25 MG tablet every 12 (twelve) hours. Active Centrum Silver (5 sources) Centrum Silver O rally Active cholecalciferol 0.025 mg oral tablet (20 sources) Vitamin D Start: 02-05-2018 take 1 tablet by mouth once daily Cholecalciferol (Vitamin D3) (Vitamin D3) 1,000 unit Tablet Active 1000 UNIT PO Daily February 05, 2018 12:00am Cholecalciferol (VITAMIN D3 GUMMIES ADULT PO) Take by mouth. Active cholecalciferol (Vitamin D-3) 25 MCG (1000 UT) capsule Take 1 capsule (25 mcg) by mouth. Active Vitamin D 1000 U NIT CAPS TAKE DIRECTED. Quantity: 0 Refills: 0 Ordered: 31-Jul-2022 DO Active Vitamin D 1000 U NIT CAPS TAKE DIRECTED. Quantity: 0 Refills: 0 Ordered: 29-Jun-2021 DO Active ciprofloxacin 500 mg oral tablet (10 sources) Quinolone Antimicrobial Start: 01-23-2024 take 1 tablet by mouth once daily ciprofloxacin 500 mg Tab TAKE 1 TABLET BY MOUTH ONCE DAILY Start Date: 01/23/24 Status: Ordered Start: 12-26-2023 take 500 mg by mouth once daily Ciprofloxacin Hcl Active 500 MG PO Daily December 26, 2023 12:43pm Start: 11-26-2023 End: 11-26-2023 Ciprofloxacin Hcl Discontinu ed 250 MG PO November 26, 2023 12:00am November 26, 2023 4:07pm Start: 11-26-2023 End: 12-26-2023 take 500 mg by mouth twice daily Ciprofloxacin Hcl Discontinued 500 MG PO Twice daily November 26, 2023 12:00am December 26, 2023 12:43pm Start: 03-23-2022 take 1 tablet by lashawn th once daily Cipro 500 mg Tab 500 mg = 1 tab(s), Oral, Daily, Take 1 tablet the day before the procedure and 1 tablet after the procedure, # 2 tab(s), Refills(s) 0, Pharmacy: [facility], 177, cm, 05/02/22 10:41:00 EST, Height/Length Dosing, 104.5, kg, 03/31/22 9:44:00 E... Start Date: 05/03/22 Status: Ordered Co-Q10 100 mg oral capsule (20 sources) Start: 12-07-2019 take 1 capsule by mouth once daily Co-Q10 100 mg oral capsule 100 mg = 1 cap(s), Oral, Daily, Refills(s) 0 Start Date: 12/07/19 Status: Ordered Coenzyme F60-Bekgcup E (CoQ10 ST-100) 100-100 MG-UNIT capsule (2 sources) Coenzyme T46-Xjgejso E (CoQ10 ST-100) 100-100 MG-UNIT capsule Take 100 mg by mouth daily. 0 Active Continuous Blood Gluc Sensor (FreeStyle Sunny 2 Sensor) misc (3 sources) Start: 06-05-2023 Continuous Blo od Gluc Sensor (FreeStyle Sunny 2 Sensor) [facility] Indications: Type 2 diabetes mellitus without complication, without long-term current use of insulin ([facility]) 1 each every 14 (fourteen) days 6 each 3 06/05/2023 Active CoQ10 100 MG (6 sources) CoQ10 100 MG as directed Orally Once a day Active enalapril maleate 10 mg oral tablet (20 sources) Angiotensin Converting Enzyme Inhibitor Start: 08-16-2021 take 1 tablet by mouth once daily Enalapril Maleate 10 MG Oral Tablet Take 1 tablet daily Quantity: 180 Refills: 3 Ordered: 16-Aug-2021 Felipa Milligan MD Start : 16-Aug-2021 Active Start: 02-05-2018 take 1 tablet by lashawn twice daily enalapril 10 mg Tab 10 mg = 1 tab(s), Oral, BID, Refills(s) 0 Start Date: 10/14/21 Status: Ordered enalapril (Vasot ec) 10 MG tablet every 12 (twelve) hours. Active ferrous sulfate 325 mg oral tablet (20 sources) Start: 04-08-2021 take 1 tablet by mouth once daily ferrous sulfate 325 mg Tab 325 mg = 1 tab(s), Oral, Daily, # 90 tab(s), Refills(s) 0, Pharmacy: [facility], 176, cm, 04/07/21 11:30:00 EDT, Height/Length Dosing, 103, kg, 04/07/21 11:30:00 EDT, Weight Dosing Start Date: 04/08/21 Status: Ordered Start: 04-08-2021 take 1 tablet by [facility] three times daily ferrous sulfate 325 mg Tab 325 mg = 1 tab(s), Oral, TID, # 90 tab(s), Refills(s) 0, Pharmacy: [facility], 176, cm, 04/07/21 11:30:00 EDT, Height/Length Dosing, 103, kg, 04/07/21 11:30:00 EDT, Weight Dosing Start Date: 04/08/21 Status: Ordered Fish Oils (5 sources) take 1 capsule by mouth once daily Fish Oil [place]-3 1000 MG 1 capsule Orally Once a [...] each nostril Start Date: 11/04/19 Status: Ordered Immodium (6 sources) Start: 07-25-2022 Immodium Activ e 1 TAB PO As Directed July 25, 2022 1:00am Start: 07-25-2022 Immodium Activ e 1 TAB PO As Directed July 25, 2022 12:00am 3 ml insulin aspart, human 100 unt/ml pen injector (18 sources) Insulin Analog Start: 02-25-2024 inject 10 [IU] by subcutaneous injection once daily at bedtime NovoLOG FlexPen ReliOn 100 UNIT/ML pen Indications: Type 2 diabetes mellitus with other specified complication, with long-term current use of insulin ([facility]) INJECT 10 UNITS SUBCUTANEOUSLY ONCE DAILY AT BEDTIME 15 mL 02/25/2024 Active Start: 12-06-2019 inject 10 [IU] by verde bcutaneous injection once daily as needed NovoLog 10 [...] THE MORNING AND 30 IN THE EVENING 04/30/2021 Active Start: 10-19-2020 insulin NPH, I [...] Active insulin isophane / insulin, regular, human (17 sources) Insulin Start: 10-06-2021 inject 30 [IU] [...] Insulin) 100 unit/mL (70-30) injection 40 units Active Insulin Lispro (Humalog Kwikpen Insulin) 100 unit/mL Insulin Pen (7 sources) Start: 05-10-2021 inject 1 dose by [...] May 10, 2021 12:00am sliding scale only insulin syringe U-100 1 mL misc (3 sources) Start: 03-19-2023 End: 03-18-2024 inject 1 dose by subcutaneous injection in the morning insulin syringe U-100 1 mL misc Indications: Type 2 diabetes mellitus without complication, without long-term current use of insulin (CMS/HCC) Inject 1 each under the skin in the morning and 1 each before bedtime. Use as instructed. 180 each 3 03/19/2023 03/18/2024 Active 24 hr isosorbide mononitrate 60 mg extended release oral tablet (20 sources) Nitrate Vasodilator Start: 03-16-2021 isosorbide mononitrate (IMDUR) 60 MG 24 hr tablet 03/16/2021 Active Start: 02-05-2018 End: 05-12-2022 take 1 tablet by mouth once daily isosorbide mononitrate 60 mg ER Tab 60 mg = 1 tab(s), Oral, Daily Start Date: 10/14/21 Status: Ordered lamoTRIgine 200 mg oral tablet (20 sources) Mood Stabilizer, Anti-epileptic Agent Start: 08-03-2020 lamoTRIgine 200 MG Oral Tablet Quantity: 90 Refills: 0 Ordered: 17-Feb-2021 DO Start : 03-Aug-2020 Active Start: 02-05-2018 End: 01-29-2024 take 1 tablet by mouth once daily lamoTRIgine (LaMICtal) 200 MG tablet Indications: Bipolar 1 disorder (CMS/HCC) Take 1 tablet (200 mg) by mouth 1 (one) time each day at the same time 30 tablet 09/25/2023 Active levothyroxine sodium 0.175 mg oral tablet (20 sources) l-Thyroxine Start: [...] Date: 08/29/23 Status: Ordered Start: 03-20-2023 take 1 tablet by lashawn th before mealtime levothyroxine (Synthroid, Levoxyl) 175 MCG tablet Indications: Acquired hypothyroidism (CMS/HCC) Take 1 tablet (175 mcg) by mouth in the morning. Take before meals. 90 tablet 12/26/2023 Active Start: 05-12-2022 End: 09-06-2023 take 75 ug [...] day(s), # 30 tab(s), Refills(s) 0, Pharmacy: [facility], 177, cm, 12/06/21 20:43:00 EDT, Height/Length Dosing, 107.2, kg, 12/06/21 20:43:00 EDT, Weight Dosing Start Date: 12/08/21 Stop Date: 01/07/22 Status: Ordered Start: 11-29-2021 take 1 tablet by lashawn th once daily Levothyroxine Sodium 200 MCG Oral Tablet TAKE 1 TABLET DAILY DIRECTED. Quantity: 90 Refills: 3 Ordered: 29-Nov-2021 Jeremías Mims MD Start : 29-Nov-2021 Active dose increase, fill at patients request. Start: 10-27-2021 take 1 tablet by lashawn th once daily levothyroxine 100 mcg (0.1 mg) Tab 100 mcg = 1 tab(s), Oral, Daily, # 30 tab(s), Refills(s) 0, Pharmacy: [facility], 178, cm, 10/14/21 16:31:00 EDT, Height/Length Dosing, 105, kg, 10/14/21 16:31:00 EDT, Weight Dosing Start Date: 10/27/21 Status: Ordered Start: 10-27-2021 take 1 tablet by lashawn th once daily levothyroxine 100 mcg (0.1 mg) Tab 100 mcg = 1 tab(s), Oral, Daily, # 30 tab(s), Refills(s) 0, Pharmacy: [facility], 178, cm, 10/14/21 16:31:00 EDT, Height/Length Dosing, [...] Take 75 mcg by mouth daily . 05/05/2021 Active take 1 tablet by lashawn th every twenty-four hours Levothyroxine Sodium 200 MCG 1 tablet Orally Once a day Not-Taking loperamide hydrochloride 2 mg oral capsule (13 sources) Opioid Agonist End: 04-04-2023 take 1 capsule by mouth every twenty-four hours as needed loperamide (Imodium) 2 MG capsule Take 2 mg by mouth Daily as needed. Active take 1 tablet by lashawn th once as needed for diarrhea loperamide (Imodium A-D) 2 MG tablet Ant e 2 mg by mouth as needed for diarrhea. 0 Active memantine hydrochloride 5 mg oral tablet (3 sources) L-gfisxm-O-aspartate Receptor Antagonist Start: 11-21-2023 End: 11-20-2024 take 1 tablet by mouth in the morning memantine (Namenda) 5 MG tablet Indications: Mild Lewy body dementia without behavioral disturbance, psychotic disturbance, mood disturbance, or anxiety (CMS/HCC) Take 1 tablet (5 mg) by mouth in the morning and 1 tablet (5 mg) before bedtime. 120 tablet 2 11/21/2023 11/20/2024 Active metFORMIN hydrochloride 1000 mg oral tablet (20 sources) Biguanide Start: 02-19-2024 take 1 tablet by mouth twice daily at mealtime metFORMIN (Glucophage) 1000 MG tablet Indications: Type 2 diabetes mellitus with other specified complication, with long-term current use of insulin (CMS/HCC) TAKE 1 TABLET BY MOUTH TWICE DAILY WITH MEALS 180 tablet 02/19/2024 Active Start: 10-21-2021 take 0.5 tablet by m outh twice daily metformin 1000 mg Tab See Instructions, 0.5 tab(s) Oral BID, Refills(s) 0 Start Date: 10/21/21 Status: Ordered Start: 10-19-2020 take 1 tablet by lashawn th twice daily at mealtime metFORMIN (GLUCOPHAGE) 1000 MG tablet Take 1,000 mg by mouth 2 (two) times a day with meals . 05/05/2021 Active Start: 02-05-2018 End: 02-24-2021 take 500 mg by mouth twice daily Metformin Discontinued 500 MG PO Twice daily February 05, 2018 12:00am February 24, 2021 11:03am Start: 01-28-2018 take 2 tablets by [facility] twice daily metformin 500 mg Tab [...] 21 tab(s), Refills(s) 0, Pharmacy: [facility] #[id number], 177, cm, 12/30/21 15:24:00 EDT, Height/Length Dosing, 100.5, kg, 12/30/21 15:24:00 EDT, Weight Dosing Start Date: 12/30/21 Stop Date: 01/05/22 Status: Ordered Multiple Vitamins-Minerals (MULTI-VITAMIN GUMMIES PO) (3 sources) Multiple Vitamins-Minerals (MULTI-VITAMIN GUMMIES PO) Take by mouth. Active Multiple Vitamins-Minerals (multivitamin with minerals) tablet (2 sources) take 1 tablet by mouth once daily Multiple Vitamins-Minerals (multivitamin with minerals) tablet Take 1 tablet by mouth daily. 0 Active Atrewbbh-Zah-Fqski-Vit K-Lycop (Men's 50 Plus Multivitamin) 400-20-370 mcg Tablet (11 sources) Start: 02-24-2021 take 50-400 tablets by mouth once daily in the morning Uzypavsz-Aav-Sohii -Vit K-Lycop (Men's 50 Plus Multivitamin) 400-20-370 mcg Tablet Active 2 TAB PO Every morning February 24, 2021 12:00am Start: 02-24-2021 take 50-400 tablets by mouth once daily in the morning Vforgtyl-Fuz-Zbohx-Vit K-Lycop (Men's 50 Plus Multivitamin) 400-20-370 mcg [...] 0.4 mg Tab (20 sources) Start: 09-14-19 Nitro 0.4 mg Tab 1 tablet, SubLingual, q5min, PRN Chest pain, Chest pain Start Date: 09/14/11 Status: Ordered nitroglycerin 0.4 mg sublingual tablet (20 sources) Nitrate Vasodilator Start: 02-06-20 Nitroglycerin Active 0.4 MG SUBLINGUAL every 5 to 15 minutes February 05, 2018 12:00am Start: 09-14-2011 Nitro 0.4 mg T ab 1 tablet, SubLingual, q5min, PRN Chest pain, Chest pain Start Date: 09/14/11 Status: Ordered nitroGLYCERIN (N ITROSTAT) 0.4 MG SL tablet See Admin Instructions . Active nitroglycerin (N itrostat) 0.3 MG SL [...] Chew 2 tablets once daily. 0 Active Physical therapy (1 source) Start: 03-04-2024 Physical thera py Physical therapy, PT - evaluate, develop and implement treatment plan, Print Requisition, Supply Start Date: 03/04/24 Status: Ordered predniSONE 20 mg oral tablet (1 source) take 1 tablet by mouth once daily predniSONE (Deltasone) 20 mg tablet [...] Start: 01-16-2022 take 1 capsule by mo ut twice daily Florastor 250 MG 1 capsule [...] Daily, # 30 tab(s), Refills(s) 0, Pharmacy: [facility], 172.7, cm, 03/09/23 15:05:00 EDT, Height/Length Dosing, 104.5, kg, 03/09/23 15:05:00 EDT, Weight Dosing Start Date: 03/13/23 Status: Ordered Start: 12-08-2021 End: 01-07-2022 Aldactone 25 mg Tab 12.5 mg = 0.5 tab(s), Oral, Daily, X 30 day(s), # 15 tab(s), Refills(s) 0, Pharmacy: [facility], 177, cm, 12/06/21 20:43:00 EDT, Height/Length Dosing, 107.2, kg, 12/06/21 20:43:00 EDT, Weight Dosing Start Date: 12/08/21 Stop Date: 01/07/22 Status: Ordered Start: 10-27-2021 take 1 tablet by lashawn th twice daily spironolactone 25 mg Tab 25 mg = 1 tab(s), Oral, BID, # 60 tab(s), Refills(s) 0, Pharmacy: [facility], 178, cm, 10/14/21 16:31:00 EDT, Height/Length Dosing, 105, kg, 10/14/21 16:31:00 EDT, Weight Dosing Start Date: 10/27/21 Status: Ordered Start: 07-22-2021 take 1 tablet by lashawn th twice daily spironolactone 25 mg Tab 25 mg = 1 tab(s), Oral, BID, # 120 tab(s), Refills(s) 0, Pharmacy: [facility], 172, cm, 07/17/21 14:15:00 EST, Height/Length Dosing, 113, kg, 07/17/21 14:15:00 EST, Weight Dosing Start Date: 07/22/21 Status: Ordered Start: 05-10-2021 End: 05-12-2022 take 12.5 mg by mouth once daily in the morning Spironolactone Discontinued 12.5 MG PO Every morning May 10, 2021 1:00am May 12, 2022 1:59pm Start: 05-05-2021 take 0.5 tablet by m out once daily Spironolactone 25 MG Oral Tablet [...] pounds, # 60 tab(s), Refills(s) 0, Pharmacy: [facility], 177, cm, 08/27/23 20:45:00 EDT, Height/Length [...] daily. 0 Active take 2 tablets by [facility] once daily torsemide (Demadex) 20 MG tablet Take 40 mg by mouth daily. 0 Active triamcinolone acetonide 1 mg/ml topical cream (3 sources) Corticosteroid Start: 03-09-2022 End: 05-08-2022 triamcinolone topical 0.1% cream 1 eduardo, Topical, BID for 30 day(s), 60 gm, Refill(s) 1, Apply thin film to inside of foreskin twice daily., [facility], 177, cm, 03/09/22 14:32:00 EDT, Height/Length Dosing, 100, kg, 03/09/22 14:32:00 EDT, Weight Dosing Start Date: 03/09/22 Stop Date: 05/08/22 Status: Ordered trihexyphenidyl hydrochloride 2 mg oral tablet (20 sources) Start: 08-03-2020 End: 01-29-2024 take 1 tablet by mouth once daily trihexyphenidyl (Artane) 2 MG tablet Indications: Bipolar 1 disorder (CMS/HCC) Take 1 tablet (2 mg) by mouth Daily 30 tablet 09/25/2023 Active ubidecarenone 100 mg oral capsule (20 sources) Start: 05-12-2021 Coenzyme Q10 (Co Q-10) 100 mg Capsule Active 100 MG PO Daily May 12, 2021 1:00am Start: 12-07-2019 take 1 capsule by [facility] once daily Co-Q10 100 mg oral [...] Active vitamin b12 1 mg/ml injectable solution (20 sources) Vitamin B12 Start: 01-03-2024 Cyanocobalamin (Vitamin B-12 ) Active MCG IM January 03, 2024 12:00am Start: 04-12-2023 inject 1000 ug by in tramuscular injection every month cyanocobalamin 1000 mcg/mL Inj 1,000 mcg = 1 mL, IntraMuscular, qMonth, syringes for B12 injections-3ml, 25 guage 1 inch quantity sufficient for injections., # 10 mL, Refills(s) 1, Pharmacy: [facility], 177, cm, 04/12/23 9:03:00 EST, Height/Length Dosing, 101.6, kg, 04/12/23 9:03:00 EST, Weight Dosing Start Date: 04/12/23 Status: Ordered Start: 04-12-2023 inject 1000 ug by in tramuscular injection every month cyanocobalamin 1000 mcg/mL Inj 1,000 mcg = 1 mL, IntraMuscular, qMonth, syringes for B12 injections-3ml, 25 guage 1 inch quantity sufficient for injections., # 10 mL, Refills(s) 1, Pharmacy: [facility], 177, cm, 04/12/23 9:03:00 [...] BIDWM, # 60 tab(s), Refills(s) 0, Pharmacy: [facility], 176, cm, 12/08/19 9:27:00 [...] Ordered warfarin sodium 4 mg oral tablet (11 sources) Vitamin K Antagonist Start: 11-19-2023 Coumadin 4 mg Tab See Instructions, take 6mg on sunday, take 4m g all other days, # 96 tab(s), Refills(s) 1, Pharmacy: [facility], 172, cm, 10/31/23 14:00:00 EDT, Height/Length Dosing, 101.2, kg, 10/31/23 14:00:00 EDT, Weight Dosing Start Date: 11/19/23 Status: Ordered Start: 10-17-2023 End: 10-16-2024 warfarin (Coumadin) 4 mg tab let Indications: Paroxysmal atrial fibrillation (Multi) Take as directed per After Visit Summary. 14 tablet 10/17/2023 10/16/2024 Active Completed/Discontinued Medications Medication Drug Class(es) Dates Sig (Normalized) Sig (Original) acetaminophen 325 mg / HYDROcodone bitartrate 5 mg oral tablet (6 sources) Opioid Agonist Start: 07-25-2022 End: 06-17-2023 [...] Ordered: 19-Sep-2020 DO Start : 25-Jun-2020 Active amLODIPine 5 mg oral tablet (20 sources) Dihydropyridine Calcium Channel Valerio Start: 02-08-2021 End: 09-06-2023 take 1 tablet by mouth once daily in the morning Amlodipine (Norvasc) 5 mg tablet Discontinued 5 MG PO Every morning February 24, 2021 12:00am September 06, 2023 7:26am amoxicillin 500 mg / clavulanate 125 mg oral tablet (2 sources) Penicillin-class Antibacterial Start: 11-26-2023 End: 01-03-2024 take 1 tablet by mouth once daily Amoxicillin-Pot Clavulanate Discontinued 1 TAB PO Daily November 26, 2023 12:00am January 03, 2024 2:50pm ascorbic acid 100 mg chewable tablet (20 sources) Vitamin C Start: 02-24-2021 End: 07-25-2022 take 300 mg by mouth once daily Ascorbic Acid (Vitamin C) Discontinued 300 MG PO Daily February 24, 2021 12:00am July 25, 2022 10:51am take 1 capsule by mouth twice da kavya ascorbic acid, vitamin C, 500 mg capsule Take 1 capsule by mouth 2 times a day. Active busPIRone hydrochloride 10 mg oral tablet (18 sources) Start: 06-12-2021 End: 06-21-2021 take 1 tablet by mouth twice daily busPIRone (BUSPAR) 10 MG tablet Take 10 mg by mouth 2 (two) times a day . 0 06/12/2021 06/21/2021 Discontinued Start: 05-10-2021 End: 05-12-2022 take 5 mg by mouth twice daily Buspirone Discontinued 5 MG PO Twice daily May 10, 2021 1:00am May 12, 2022 1:58pm clindamycin 300 mg oral capsule (12 sources) Lincosamide Antibacterial Start: 03-08-2021 take 2 capsules by mouth three times daily Clindamycin HCl - 300 MG Oral Capsule TAKE 2 CAPSULES BY MOUTH THREE TIMES DAILY FOR 2 DAYS Quantity: 12 Refills: 0 Ordered: 08-Mar-2021 DO Start : 08-Mar-2021 Active Start: 03-08-2021 End: 05-10-2021 take 600 mg by mouth three times daily Clindamycin Hcl Discontinued 600 MG PO Three times daily 12 March 08, 2021 12:00am May 10, 2021 11:00am clopidogrel 75 mg oral tablet (12 sources) [id number] Platelet Inhibitor Start: 02-24-2021 End: [...] meals Start: 05-10-2022 take 1 capsule by [facility] once daily cranberry oral capsule See [...] day Not-Taking doxycycline hyclate 100 mg oral tablet (20 sources) Tetracycline-cl ass Drug Start: 12-11-2023 take 1 tablet by mouth twice daily doxycycline hyclate 100 mg Tab 100 mg = 1 tab(s), Oral, BID, Take 1 tablet the day before procedure and 1 tablet after procedure, # 2 tab(s), Refills(s) 0, Pharmacy: [facility], 172, cm, 12/05/23 10:16:00 EDT, Height/Length Dosing, 107.6, kg, 12/05/23 10:16:00 EDT, Weight Dosing Start Date: 12/11/23 Status: Ordered Start: 06-28-2023 take 1 capsule by [facility] once daily doxycycline hyclate 100 mg Cap 100 mg = 1 cap(s), Oral, Daily, Take 1 pill the day before the procedure and 1 pill after the procedure, # 2 cap(s), Refills(s) 0, Pharmacy: [facility], 177, cm, 04/12/23 9:03:00 EST, Height/Length Dosing, 101.6, kg, 04/12/23 9:03:00 EST, Weight Dosing Start Date: 06/28/23 Status: Ordered Start: 01-01-2023 take 1 capsule by [facility] once daily doxycycline hyclate 100 mg Cap 100 mg = 1 cap(s), Oral, Daily, Take 1 pill the day before the procedure and 1 pill after the procedure, # 2 cap(s), Refills(s) 0, Pharmacy: [facility], Neda, martina, 10/31/22 10:31:00 EDT, Height/Length Dosing, 100, kg, 09/22/22 12:09:00 EDT, Weight Dosing Start Date: 01/01/23 Status: Ordered Start: 10-26-2022 take 1 capsule by [facility] once daily doxycycline hyclate 100 mg Cap 100 mg = 1 cap(s), Oral, Daily, Take 1 pill the day before the procedure and 1 pill after the procedure, # 2 cap(s), Refills(s) 0, Pharmacy: [facility], 177, martina, 09/22/22 12:09:00 EDT, Height/Length Dosing, 100, kg, 09/22/22 12:09:00 EDT, W... Start Date: 10/26/22 Status: Ordered Start: 11-11-2020 take 1 tablet by [facility] once daily Doxycycline Hyclate 100 MG Oral Tablet TAKE 1 TABLET DAILY DIRECTED. Quantity: 0 Refills: 0 Ordered: 11-Nov-2020 DO Start : 11-Nov-2020 Active Start: 11-11-2020 Doxycycline Hy clate 100 MG Oral Tablet Quantity: 2 Refills: 0 Ordered: 11-Nov-2020 DO Start : 11-Nov-2020 Active empagliflozin 10 mg oral tablet (15 sources) Sodium-Glucose Cotransporter 2 Inhibitor Start: 06-25-2023 End: 06-24-2024 take 1 tablet by mouth in the morning empagliflozin (Jardiance) 10 MG Indications: Type 2 diabetes mellitus with other specified complication, with long-term current use of insulin (CMS/HCC) Take 1 tablet (10 mg) by mouth in the morning. 100 tablet 3 06/25/2023 03/06/2024 Discontinued (Therapy completed) Start: 09-22-2022 End: 04-04-2023 take 1 tablet by mouth once daily empagliflozin (Jardiance) 10 mg Indications: Ischemic cardiomyopathy Take 1 tablet (10 mg) by mouth once daily. 90 tablet 3 03/13/2023 04/04/2023 Discontinued (Ineffective) Start: 05-10-2020 Jardiance 25 M G Oral Tablet Quantity: 30 Refills: 0 Ordered: 07-Jun-2020 DO Start : 10-May-2020 Active enalapril maleate 5 mg / hydroCHLOROthiazide 12.5 mg oral tablet (5 sources) Thiazide Diuretic, Angiotensin Converting Enzyme Inhibitor take 1 tablet by mouth every twenty-four hours Enalapril-hydroCHLOROthiazide 5-12.5 MG 1 tablet Orally Once a day Not-Taking ergocalciferol 1.25 mg oral capsule (3 sources) Provitamin D2 Compound Sta rt: 1 take 1 capsule by mouth every week Vitamin D (Ergocalciferol) 1.25 MG (02478 UT) Oral Capsule TAKE 1 CAPSULE BY [...] each nostril Start Date: 11/04/19 Status: Ordered fluticasone (Jones nase) 50 MCG/ACT nasal spray Administer into each nostril. Shake gently. Before first use, prime pump. After use, clean tip and replace cap. Active take 2 spray(s) nasa l route twice [...] Start: 10-27-2021 take 1 tablet by lashawn once daily furosemide 40 mg Tab 40 mg = 1 tab(s), Oral, Daily, # 60 tab(s), Refills(s) 0, Pharmacy: [facility], 178, cm, 10/14/21 16:31:00 EDT, Height/Length Dosing, 105, kg, 10/14/21 16:31:00 EDT, Weight Dosing Start Date: 10/27/21 Status: Ordered Start: 07-22-2021 take 1 tablet by lashawn twice daily furosemide 40 mg Tab 40 mg = 1 tab(s), Oral, BID, # 60 tab(s), Refills(s) 0, Pharmacy: [facility], 178, cm, 10/14/21 16:31:00 EDT, Height/Length Dosing, 105, kg, 10/14/21 16:31:00 EDT, Weight Dosing Start Date: 10/27/21 Status: Ordered Start: 12-16-2020 take 1 tablet by lashawn once daily Furosemide 40 MG Oral Tablet [...] 05, 2018 12:00am May 12, 2022 1:58pm glimepiride 2 mg oral tablet (20 sources) Sulfonylurea Start: 11-22-2020 End: 06-24-2024 take 1 tablet by mouth in the morning glimepiride (Amaryl) 2 MG tablet Indications: Type 2 diabetes mellitus with other specified complication, with long-term current use of insulin (CMS/[facility]) Take 1 tablet (2 mg) by mouth in the morning and 1 tablet (2 mg) before bedtime. 200 tablet 3 06/25/2023 03/06/2024 Discontinued sodium hypochlorite 2.5 mg/ml topical solution (1 [...] for 30 days October, Active insulin lispro ( HumaLOG KWIKPEN) 100 UNIT/ML injection 1 (one) time each day at the same time. Active insulin lispro ( HumaLOG U-100 Insulin) 100 unit/mL injection Inject under the skin. Active Insulin Lispro ( HUMALOG SC) Inject under the skin. 0 Active insulin, regular, human 100 unt/ml injectable solution (20 sources) Insulin Start: 02-05-2018 End: 02-05-2018 Insulin [...] Active liothyronine sodium 0.05 mg oral tablet (11 sources) l-Triiodothyronine Start: 02-05-2018 End: 02-24-2021 take [...] 09/14/11 Status: Ordered take 1 capsule by [facility] every twenty-four hours Magnesium Oxide 400 [...] 0 Ordered: 22-Sep-2022 DO Active nebulizer machine (20 sources) Start: 03-13-20 nebulizer machine nebulizer machine, See Instructions, 1 EA, 0, please provide machine with supplies, Supply Start Date: 03/13/23 Status: Ordered [place] 3 1200 MG (5 sources) take 1 capsule by mouth once daily [place] 3 1200 MG 1 capsule Orally Once a day Not-Taking ondansetron 4 mg oral tablet (8 sources) Serotonin-3 Receptor Antagonist Start: 06-25-19 Ondansetron HCl - 4 MG Oral Tablet Quantity: 28 Refills: 0 Ordered: 30-Jun-2020 DO Start : 25-Jun-2020 Active ondansetron (ZOF RAN) 4 MG tablet 1 tablet Active oxyCODONE hydrochloride 5 mg oral tablet [...] 7:28am Start: 10-21-2021 take 1 capsule by [facility] once daily potassium chloride 10 mEq Cap-ER 10 mEq = 1 cap(s), Oral, Daily, Refills(s) 0 Start Date: 10/21/21 Status: Ordered Start: 10-21-2021 take 1 capsule by [facility] once daily potassium chloride 10 mEq Cap-ER 10 mEq = 1 cap(s), Oral, Daily, Refills(s) 0 Start Date: 10/21/21 Status: Ordered Start: 07-16-2019 potassium chlo ride 10 MEQ CR tablet Apply 1 tablet to the mouth or throat . 07/16/2019 Active Start: 02-05-2018 End: 05-12-2022 take [...] a day Not-Taking Sod Picosulf-Mag Ox-Citric Ac (4 sources) Start: 08-15-19 End: 09-06-19 take 1 mL by mouth once daily Sod Picosulf-Mag Ox-Citric Ac (Clenpiq) 10 mg-3.5 gram- 12 gram/175 mL solution Discontinued 175 ML PO Daily 06 04August 15, 2023 12:00am September 06, 2023 7:28am please follow instructions provided by Dr. Mcgee's office. tamsulosin hydrochloride 0.4 mg oral capsule (20 sources) alpha-Adrenergic Valerio Start: 03-04-20 End: 03-04-20 tamsulosin 0.4 mg Cap 0.4 mg = 1 cap(s), Cap, Oral, Start date 03/04/24 9:00:00 AM EDT, 03/02/24 17:59:00 EDT Start Date: 03/04/24 Stop Date: 03/04/24 Status: Completed Start: 03-23-2022 End: 09-11-2024 take 1 capsule by mouth once daily tamsulosin (Flomax) 0.4 MG 24 hr capsule Indications: Benign prostatic hyperplasia, unspecified whether lower urinary tract symptoms present Take 1 capsule (0.4 mg) by mouth Daily 90 capsule 3 09/12/2023 09/11/2024 Active Start: 02-19-2022 End: 03-21-2022 take 1 capsule by mouth once daily Flomax 0.4 mg Cap 0.4 mg = 1 cap(s), Oral, Daily, X 30 day(s), # 30 cap(s), Refills(s) 0, Pharmacy: [facility], 177.8, cm, 02/08/22 20:58:00 [...] Completed Start: 10-06-2021 take 1 capsule by [facility] once daily Flomax 0.4 mg Cap 0.4 mg = 1 cap(s), Oral, Daily, Refills(s) 0 Start Date: 10/06/21 Status: Ordered ticagrelor 90 mg oral tablet (11 sources) Start: 02-07-2018 End: 02-24-2021 take 1 [...] Classification Problem Date Documented Da te Episodic/Chronic Acquired foot deformities (3 sources) Acquired hammer toe of left foot; Translations: [Other hammer toe(s) (acquired), left foot] Onset: 3 03-09-2023 Chronic Acquired foot deformities (3 sources) Acquired hammer toe of right foot; Translations: [Other hammer toe(s) (acquired), right foot] Onset: 3 03-09-2023 Chronic Acute and unspecified renal failure (2 sources) Acute renal failure syndrome; Translations: [Other acute kidney failure] Onset: 2 Episodic Acute cerebrovascular disease (3 sources) Cerebrovascular accident; Translations: [Cerebral infarction, unspecified] Onset: 3 11-17-2023 Chronic Anxiety disorders (20 sources) Generalized anxiety disorder; [...] Onset: 2 Chronic Chronic ulcer of skin (5 sources) Non-pressure chronic ulcer of left heel and midfoot limited to breakdown of skin; Translations: [Non-pressure chronic ulcer of other part of unspecified foot with unspecified severity] Onset: 3 Chronic Complication of device; implant or graft (20 sources) Arteriosclerosis of coronary artery bypass graft; Translations: [Coronary atherosclerosis of unspecified bypass graft] Onset: 3 Chronic Complications of surgical procedures or medical care (15 sources) Postoperative hemorrhage; Translations: [Postoperative hemorrhage] 05-12-2022 [...] dementia, and amnestic and other cognitive disorders (5 sources) Dementia; Translations: [Mild dementia without behavioral disturbance, psychotic disturbance, mood disturbance, or anxiety, unspecified dementia type (HCC)] Onset: 2 03-20-2023 Chronic Diabetes mellitus with complications (20 [...] Chronic Hypertension with complications and secondary hypertension (8 sources) Hypertensive heart disease without heart failure; Translations: [Hypertensive crisis, unspecified] Onset: 2 Chronic Infective arthritis and osteomyelitis (except that caused by tuberculosis or sexually transmitted disease) (18 sources) Osteomyelitis; Translations: [Osteomyelitis, unspecified] Onset: 2 [...] sources) Carotid artery stenosis 04-07-2021 Chronic Osteoarthritis (8 sources) Primary osteoarthritis, left ankle and foot; Translations: [Unspecified osteoarthritis, unspecified site] Onset: 2 03-09-2023 Chronic Other acquired deformities (20 sources) Contracture of ankle joint 02-17-2022 Chronic Other acquired deformities (1 source) Contracture, left ankle; Translations: [CONTRACTURE LEFT ANKLE] Onset: 3 Chronic Other acquired deformities (3 sources) Contracture of joint of left ankle; Translations: [Contracture, left ankle] Onset: 3 03-09-2023 Chronic Other aftercare (20 sources) Drug therapy finding; Translations: [Long-term (current) use of other medications] Episodic Other aftercare (6 sources) H/O: high risk medication; Translations: [Other [facility] (current) drug therapy] Episodic Other aftercare (6 sources) Long-term current use of insulin; Translations: [intermodal dispatcher (current) use of insulin] Episodic Other aftercare (7 sources) skilled nursing (current) use of antibiotics; Translations: [Long-term (current) use of antibiotics] Onset: 2 Resolved: 2 Episodic Other aftercare (20 sources) Long-term current use of anticoagulant; Translations: [skilled nursing (current) use of anticoagulants] Onset: 2 Episodic Other aftercare (4 sources) Encounter for follow-up examination after completed treatment for conditions other than malignant neoplasm; Translations: [ENC F/U EX AFTR CMPL TX NOT MAL ARMANDO] Onset: 3 Episodic Other aftercare (1 source) Polypharmacy ; Translations: [Other intermodal dispatcher (current) drug therapy] 02-21-2023 Episodic Other aftercare (4 sources) Taking high risk medication; Translations: [Other [facility] (current) drug therapy] Onset: 3 02-23-2023 Episodic Other aftercare (1 source) Long-term current use of drug therapy; Translations: [Other intermodal dispatcher (current) drug therapy] Onset: 4 Episodic Other aftercare (3 sources) Long-term current use of antibiotic; Translations: [intermodal dispatcher (current) use of antibiotics] 10-18-2023 Episodic Other aftercare (2 sources) Post-discharge follow-up; Translations: [Encounter for follow-up examination after completed treatment for conditions other than malignant neoplasm] 03-06-2024 Episodic Other and ill-defined heart disease (1 [...] source) Diarrhea, unspecified Episodic Other gastrointestinal disorders (4 sources) Diarrhea; Translations: [Diarrhea, unspecified] 08-03-2023 Episodic Other hereditary and degenerative nervous system conditions (15 sources) Restless legs; Translations: [Restless legs syndrome (RLS)] Onset: 3 02-23-2023 Chronic Other liver diseases (6 sources) Alkaline phosphatase raised 04-08-2021 Episodic Other lower respiratory disease (2 sources) Dyspnea; Translations: [Dyspnea, unspecified] Onset: 2 Episodic Other lower respiratory disease (2 sources) Disorder of lung; Translations: [Other disorders of lung] Onset: 3 Episodic Other lower respiratory disease (7 sources) Restrictive lung disease 12-05-2023 Episodic Other lower respiratory disease (1 source) Solitary nodule of lung; Translations: [Solitary pulmonary nodule] Onset: 4 Episodic Other lower respiratory disease (3 sources) Nodule of lung 01-23-2024 Episodic Other male genital disorders (20 sources) Paraphimosis; Translations: [Paraphimosis] Onset: 2 Episodic Other male genital disorders (6 sources) Phimosis; Translations: [Phimosis] 07-25-2022 Episodic Other [...] Onset: 3 Chronic Other non-traumatic joint disorders (3 sources) Arthropathy associated with a neurological disorder; Translations: [Charcot's joint, unspecified site] Onset: 3 03-09-2023 Chronic Other non-traumatic joint disorders (1 source) [...] Chronic Other nutritional; endocrine; and metabolic disorders (8 sources) Obese class I; Translations: [Body mass index (BMI) 34.0-34.9, adult] 03-06-2024 Chronic Other nutritional; endocrine; and metabolic disorders [...] [Parkinson's disease] Onset: 2 Resolved: 3 Chronic Peripheral and visceral atherosclerosis (2 sources) Atherosclerosis of aorta; Translations: [Atherosclerosis of aorta] 03-06-2024 Chronic Residual codes; unclassified (20 sources) Obstructive [...] source) Amnesia; Translations: [Other amnesia] 02-20-2023 Episodic Respiratory failure; insufficiency; arrest (adult) (2 sources) [id number] respiratory failure; Translations: [Acute and chronic respiratory failure with hypoxia] Onset: 4 Chronic Respiratory failure; insufficiency; arrest (adult) (2 sources) Acute respiratory failure; Translations: [Acute respiratory failure with hypoxia] 03-06-2024 Episodic Thyroid disorders (20 sources) Hypothyroidism; Translations: [Unspecified acquired hypothyroidism] Onset: 1 06-21-2021 Chronic Unclassified (7 sources) Parkinsonism; Translations: [Parkinsonism, unspecified Parkinsonism type] [...] sources) Mood disorders Onset: 12-15-2021 07-16-2022 Other aftercare (4 sources) Other intermodal dispatcher (current) drug therapy; Translations: [Other mcc (current) drug therapy] Onset: 02-23-2023 Episodic Other circulatory disease (20 sources) History of atrial flutter; Translations: [Personal history of other diseases of circulatory system] Resolved: 05-05-2021 Episodic Other circulatory disease (20 sources) H/O: angina pectoris; Translations: [Personal history of other diseases of circulatory system] Resolved: 06-29-2021 Episodic Other connective tissue disease (12 sources) Transient neurological symptoms; Translations: [Other symptoms involving nervous and musculoskeletal systems] Onset: 02-23-2023 02-23-2023 Episodic Other connective tissue disease (2 sources) Other symptoms and signs involving the nervous system; Translations: [Other symptoms and signs involving the nervous system] Onset: 02-23-2023 Episodic Other diseases of veins and lymphatics (3 sources) Peripheral venous insufficiency; Translations: [Venous insufficiency (chronic) (peripheral)] Onset: 03-29-2023 03-29-2023 Episodic Other injuries and conditions due to external causes (20 sources) At risk for falls ; Translations: [History of fall] Onset: 02-23-2023 02-23-2023 Episodic Other lower respiratory disease (1 source) Shortness of breath; Translations: [Shortness of breath] Onset: 06-17-2023 Episodic Other nervous system disorders (6 sources) Involuntary movement; Translations: [Unspecified abnormal involuntary movements] Onset: 02-23-2023 02-23-2023 Episodic Other nervous system disorders (3 sources) Abnormal gait; Translations: [Unspecified abnormalities of gait and mobility] Onset: 03-09-2023 03-09-2023 Episodic Other nervous system disorders (2 sources) [...] Test Name Value Interpretation Reference Range Facility Coding Queryon 03-07-2024 Coding Query Coding Query From: Ophelia Hutton RN To: Boaz Teresa III, DO; Sent: 03/04/2024 15:19:24 EDT ! Subject: Coding Query Due Date/Time: 03/05/2024 15:19:00 EDT Caller Name: JOSÉ LUIS FAULKNER; Caller Number: Mauro , Jens The following labs are documented in the medical record: Date : 03/02 03/03 03/04 BUN : 18 29 31 CR : 1.1 1.5 1.4 eGFR: 70 48 52 03/04 Progress note :Lasix twice daily. Changed to daily/hold tonight's dose with the significant increase in creatinine Treatments: monitoring Based on your medical judgment, can you please clarify which, if any, of the following conditions are present? Select all that apply: [___]Acute kidney failure, unspecified [___]Other: In responding to this request, please exercise your independent professional judgement. The fact that a question is asked does not imply that any particular answer is desired or expected. Thank you!ophelia [id number] iatrogenic mild LAWANDA/azotemia due to diuresis From: Boaz Teresa III, DO To: Ophelia Hutton RN; Sent: 03/07/2024 15:08:41 EDT Subject: RE: Coding Query Caller Name: JOSÉ LUIS FAULKNER; Caller Number: Mauro , Jens [facility] General Message Officeon General Message Office General Message O ffice --- --- --- --- --- --- --- --- --- From: [facility] DirectInbox To: JOSÉ LUIS FAULKNER Sent: 03/05/24 02:30:26 AM EDT Subject: Discharge Summary Ready to View A summary regarding your recent visit is available in the Documents section of your health record. Normal [facility] BMPon 03-04-2024 Anion gap [Moles/Vol] 12 mmol/L Normal 6-16 [facility] Comment on above: Performed By: #### 2 [id number] #### [facility] [address] [place] [address] Calcium [Mass/Vol] 8.8 mg/dL Low 8.9-11.1 [facility] Comment on above: Performed By: #### 2 [id number] #### [facility] [address] [place] [address] Chloride [Moles/Vol] 100 mmol/L Low 101-111 [facility] Comment on above: Performed By: #### 2 [id number] #### [facility] [address] [place] [address] CO2 [Moles/Vol] 33 mmol/L High 21-31 [facility] Comment on above: Performed By: #### 2 [id number] #### [facility] [address] [place] [address] Creatinine [Mass/Vol] 1.4 mg/dL High 0.5-1.3 [facility] Comment on above: Performed By: #### 2 [id number] #### [facility] [address] [place] [address] Glucose [Mass/Vol] 137 mg/dL Normal 55-199 [facility] Comment on above: Performed By: #### 2 [id number] #### [facility] [address] [place] [address] Potassium [Moles/Vol] 3.7 mmol/L Normal 3.5-5.3 [facility] Comment on above: Performed By: #### 2 [id number] #### [facility] [address] [place] [address] Sodium [Moles/Vol] 141 mmol/L Normal 135-145 [facility] Comment on above: Performed By: #### 2 [id number] #### [facility] [address] [place] [address] Urea nitrogen [Mass/Vol] 31 mg/dL High 5-21 [facility] Comment on above: Performed By: #### 2 [id number] #### [facility] [address] [place] [address] Urea nitrogen/Creatinine [Mass ratio] 22 No Units High 10-20 [facility] Comment on above: Performed By: #### 2 [id number] #### [facility] [address] [place] [address] CBC w/ Auto Diffon 4 Basophils/100 WBC (Bld) 0.7 % Normal 0.0-2.0 [facility] Comment on above: Performed By: #### 2 [id number] #### [facility] [address] [place] [address] Basophils/Leukocytes Auto (Bld) [Pure # fraction] 0.1 E9/L Normal 0.0-0.2 [facility] Comment on above: Performed By: #### 2 [id number] #### [facility] [address] [place] [address] Eosinophils (Bld) [#/Vol] 0.2 E9/L Normal 0.0-0.5 [facility] Comment on above: Performed By: #### 2 [id number] #### [facility] [address] [place] [address] Eosinophils/100 WBC (Bld) 1.6 % Normal 0.0-8.0 [facility] Comment on above: Performed By: #### 2 [id number] #### [facility] [address] [place] [address] Erythrocyte distribution width (RBC) [Ratio] 15.4 % High 10.9-14.2 [facility] Comment on above: Performed By: #### 2 [id number] #### [facility] [address] [place] [address] Hematocrit (Bld) [Volume fraction] 28.9 % Low 37.7-49.0 [facility] Comment on above: Performed By: #### 2 [id number] #### [facility] [address] [place] [address] Hemoglobin (Bld) [Mass/Vol] 9.7 g/dL Low 13.5-17.5 [facility] Comment on above: Performed By: #### 2 [id number] #### [facility] [address] [place] [address] Lymphocytes (Bld) [#/Vol] 1.7 E9/L Normal 1.0-4.0 [facility] Comment on above: Performed By: #### 2 [id number] #### [facility] [address] [place] [address] Lymphocytes/100 WBC (Bld) 15.8 % Normal 14.0-50.0 [facility] Comment on above: Performed By: #### 2 [id number] #### [facility] [address] [place] [address] MCH (RBC) [Entitic mass] 29.4 pg Normal 27.0-34.0 [facility] Comment on above: Performed By: #### 2 [id number] #### [facility] [address] [place] [address] MCHC (RBC) [Mass/Vol] 33.6 g/dL Normal 31.4-36.0 [facility] Comment on above: Performed By: #### 2 [id number] #### [facility] [address] [place] [address] MCV (RBC) [Entitic vol] 87.7 fL Normal 80.0-100.0 [facility] Comment on above: Performed By: #### 2 [id number] #### [facility] [address] [place] [address] Monocytes (Bld) [#/Vol] 0.8 E9/L Normal 0.2-1.0 [facility] Comment on above: Performed By: #### 2 [id number] #### [facility] [address] [place] [address] Neutrophils (Bld) [#/Vol] 8.3 E9/L High 2.0-7.5 [facility] Comment on above: Performed By: #### 2 [id number] #### [facility] [address] [place] [address] Neutrophils/100 WBC (Bld) 75.0 % Normal 36.0-75.0 [facility] Comment on above: Performed By: #### 2 [id number] #### [facility] [address] [place] [address] Platelet mean volume (Bld) [Entitic vol] 6.4 fL Normal 6.4-10.8 [facility] Comment on above: Performed By: #### 2 [id number] #### [facility] [address] [place] [address] Platelets (Bld) [#/Vol] 319.0 E9/L Normal 150.0-500. 0 [facility] Comment on above: Performed By: #### 2 [id number] #### [facility] [address] [place] [address] RBC (Bld) [#/Vol] 3.3 E12/L Low 4.3-5.9 [facility] Comment on above: Performed By: #### 2 [id number] #### [facility] [address] [place] [address] WBC corrected for nucl RBC Auto (Bld) [#/Vol] 11.0 E9/L Normal 4.0-11.0 [facility] Comment on above: Performed By: #### 2 [id number] #### [facility] [address] [place] [address] CHEMISTRYOrdered By: Lab ROP User on 03-04-2024 Glucose [Mass/Vol] 249 mg/dL High 55 - 99 mg/dL [facility] [place] Subsection Comment on above: Result Comment: Kennedy espitia RN/ POC Device SN [id number] 1 Invalid Interpretation Code [facility] POC Subsection POC User ID [id number] 1 Invalid Interpretation Code FT POC Subsection POC Username DARLENE MCGARRY Invalid Interpretation Code [facility] POC Subsection Glucose [Mass/Vol] 141 mg/dL High 55 - 99 mg/dL [facility] POC Subsection Comment on above: Result Comment: Kennedy espitia RN/ POC Device SN [id number] 1 Invalid Interpretation Code [facility] POC Subsection POC User ID [id number] 1 Invalid Interpretation Code [facility] POC Subsection POC Username DARLENE MCGARRY Invalid Interpretation Code [facility] POC Subsection CHEMISTRYOrdered By: SYSTEM SYSTEM on 03-04-2024 Anion gap [Moles/Vol] 12 mmol/L Normal 6 - 16 mEq/L [facility] Calcium [Mass/Vol] 8.8 mg/dL Low 8.9 - 11. 1 mg/dL [facility] Chloride [Moles/Vol] 100 mmol/L Low 101 - 1 11 mmol/L [facility] CO2 [Moles/Vol] 33 mmol/L High 21 - 31 mmol/L [facility] Creatinine [Mass/Vol] 1.4 mg/dL High 0.5 - 1.3 mg/dL [facility] eGFR 52 mL/min/1.73 m2 Low >=59mL/min /1.73 m2 [facility] Glucose [Mass/Vol] 137 mg/dL Normal 55 - 199 mg/dL [facility] Potassium [Moles/Vol] 3.7 mmol/L Normal 3.5 - 5.3 mmol/L [facility] Sodium [Moles/Vol] 141 mmol/L Normal 135 - 145 mmol/L [facility] Urea nitrogen [Mass/Vol] 31 mg/dL High 5 - 21 mg/dL [facility] Urea nitrogen/Creatinine [Mass ratio] 22 mg/mg High 10 - 20 [facility] COAGULATIONOrdered By: Latasha Gonzales on 03-04-2024 INR Coag (PPP) [Relative time] 2.71 {INR} Invalid Interpretation Code [facility] Auto Coag Comment on above: Interpretive Data: I NR results are specifically intended to assess patients stabilized on long-term Anticoagulation therapy suggested INR s Less Intensive Anticoagulation 2.0 3.0 Conventional Range 3.0 4.5 PT Coag (PPP) [Time] 30.7 s High 9.4 - 1 2.5 second(s) [facility] Auto Coag Comment on above: Interpretive Data: [...] the same coagulation reagent and instrumentation as [facility]. Currently there are no coagulation studies available worldwide for children to 14 days, and no normal ranges. Capillary Glucose POCon 10-0 Glucose [Mass/Vol] 249 mg/dL High 55-99 [facility] Comment on above: Result Comment: Kennedy SULLIVAN Performed By: #### 2 [id number] #### [facility] [address] [place] [address] Glucose [Mass/Vol] 141 mg/dL High 55-99 [facility] Comment on above: Result Comment: Kennedy SULLIVAN Performed By: #### 2 [id number] #### [facility] [address] [place] [address] Discharge Note-Nursingon Discharge Note-Nursing Discharge Note-Nu rsing JOSÉ LUIS FAULKNER :1950 Visit Date:03/02/2024 Inpatient Discharge Instructions Your Care Team Admitting Physician - Aden BROUSSARD, Paul Regalado Consulting Physician - Danna BROUSSARD, Felipa [facility] Reason for Your Visit Shortness of breath Your Diagnosis Acute on chronic respiratory failure with hypoxia Acute on chronic heart failure with preserved ejection fraction COPD exacerbation Hypertensive crisis Hyperlipidemia, unspecified, Hyperlipidemia, unspecified PAF (paroxysmal atrial fibrillation) Parkinsonian syndrome Type 2 diabetes mellitus with hyperlipidemia Hypertension Diabetic foot ulcer Non-pressure chronic ulcer of other part of unspecified foot with unspecified severity Shortness of breath Tests Performed Echo Transthoracic w/ Contrast XR Chest Single View This Is Your Medications List Misc Prescription (Physical therapy) Misc Prescription (nebulizer machine) acetaminophen (acetaminophen 325 mg Tab) albuterol (Pro-Air HFA CFC free 90 mcg/inh MDI) albuterol-ipratropium (DuoNeb 2.5 mg-0.5 mg/3 mL Soln-Inh) alprazolam (alprazolam 0.25 mg Tab) amiodarone aripiprazole (aripiprazole 5 mg Tab) aspirin (aspirin 81 mg Oral EC Tab) atorvastatin (atorvastatin 80 mg Tab) carbidopa-levodopa (carbidopa-levodopa 25 mg-100 mg Tab) carvedilol (carvedilol 25 mg Tab) cholecalciferol (Vitamin D3 1000 intl units oral tablet) cyanocobalamin (cyanocobalamin 1000 mcg/mL Inj) enalapril (enalapril 10 mg Tab) glimepiride (glimepiride 2 mg Tab) isosorbide mononitrate (isosorbide mononitrate 60 mg ER Tab) lamotrigine (Lamictal 200 mg Tab) levothyroxine (levothyroxine 100 mcg (0.1 mg) Tab) levothyroxine (levothyroxine 75 mcg (0.075 mg) Tab) magnesium oxide (magnesium oxide 400 mg Tab) metformin (metformin 1000 mg Tab) multivitamin with minerals (Multivitamins and Minerals) nitroglycerin (Nitro 0.4 mg Tab) pantoprazole (Pantoprazole [address] Tab) tamsulosin (tamsulosin 0.4 mg Cap) torsemide (torsemide 20 mg Tab) trihexyphenidyl (trihexyphenidyl 2 mg Tab) ubiquinone (Co-Q10 100 mg oral capsule) warfarin (Coumadin 4 mg Tab) [Image Removed: STOP]Stop taking these medications apixaban (Eliquis 5 mg oral tablet) ciprofloxacin (ciprofloxacin 500 mg Tab) insulin isophane (NovoLIN N FlexPen 100 units/mL subcutaneous suspension) insulin lispro (Humalog) spironolactone (Aldactone 25 mg Tab) Procedure History Circumcision (07/25/2022), TURBT - Transurethral resection of bladder tumor (05/23/2022), Cardiac catheterisation (11/10/2021), Cardioversion (04/06/2021), Defibrillator, device (03/04/2021), Pacemaker catheter, device (03/04/2021), Incision AND drainage (12/08/2019), Stent placement (02/25/2018), Excision skin lesion RUE (09/08/2016), Cataract extraction with lens implantation, right eye. (01/17/2016), CABG - Coronary artery bypass graft, Cardiovascular stress test using pharmacologic stress agent, Colonoscopy and biopsy of colon, Cystoscopy, Esophagogastroduodenoscopy and biopsy, Mastoidectomy. Discharge Vitals Temperature (Axillary) 37 ?C Heart Rate (Monitored) 68 Respiratory Rate 20 Blood Pressure 106/64 Weight 100.3 kg What to do next Instructions From Your Doctor Event Name Event Result Discharge Activity Ambulate as tolerated Discharge Diet(s) Low Sodium- 2000 mg Pending Diagnostic Test Results None Discharge Instructions resume home medications, check weight daily and keep a log, return to ER if symptoms return or worsen Previously Scheduled Follow-Up Appointments Sunday 2:00 PM EDT With: Where: [facility] 2023 11:00 AM EST With: Where: [facility] 2024 1:40 PM EDT With: Armani Yarbrough DO Where: [facility] New Follow Up Appointments after Discharge Follow Up with Mona Baker When: 03/06/2024 01:20 PM EDT Where: [address] [place] [address]- Business (1) Follow Up with Mona Baker When: Within 7 to 10 days Comments: Call for followup appointment Where: [address] [place] [address]- Business (1) Medications What How Much When Why Instructions Next Dose New Misc Prescription (Physical therapy) 0 Parkinsonian syndrome PT - evaluate, develop and implement treatment plan Printed Prescription Unchanged acetaminophen (acetaminophen 325 mg Tab) 2 Tablets By Mouth Every 6 hours as needed for Pain As needed Unchanged albuterol (Pro-Air HFA CFC free 90 mcg/ inh MDI) 2 Puffs Inhalation Every 4 hours as needed for Shortness of breath or wheezing As needed after 4:00 PM Unchanged albuterol-ipratropium (DuoNeb 2.5 mg-0.5 mg/ 3 mL Soln-Inh) 3 Milliliter Inhalation 4 times a day Today at 4:00 PM Unchanged alprazolam (alprazolam 0.25 mg Tab) 1 Tablets By Mouth 3 times a day as needed for anxiety As needed Unchan (more content not included)... Normal [facility] HEMATOLOGYOrdered By: SYSTEM SYSTEM on 03-04-2024 Basophils/100 WBC (Bld) 0.7 % Normal 0.0 - 2.0 % [facility] Basophils/Leukocytes Auto (Bld) [Pure # fraction] 0.1 E9/L Normal 0.0 - 0.2 E9/L [facility] Eosinophils (Bld) [#/Vol] 0.2 E9/L Normal 0.0 - 0.5 E9/L [facility] Eosinophils/100 WBC (Bld) 1.6 % Normal 0.0 - 8.0 % [facility] Erythrocyte distribution width (RBC) [Ratio] 15.4 % High 10.9 - 14.2 % [facility] Hematocrit (Bld) [Volume fraction] 28.9 % Low 37.7 - 49.0 % [facility] Hemoglobin (Bld) [Mass/Vol] 9.7 g/dL Low 13.5 - 17.5 gm/dL [facility] Lymphocytes (Bld) [#/Vol] 1.7 E9/L Normal 1.0 - 4.0 E9/L [facility] Lymphocytes/100 WBC (Bld) 15.8 % Normal 14.0 - 50.0 % [facility] MCH (RBC) [Entitic mass] 29.4 pg Normal 27.0 - 34.0 pg [facility] MCHC (RBC) [Mass/Vol] 33.6 g/dL Normal 31.4 - 36.0 gm/dL [facility] MCV (RBC) [Entitic vol] 87.7 fL Normal 80.0 - 100.0 fL [facility] Monocytes (Bld) [#/Vol] 0.8 E9/L Normal 0.2 - 1.0 E9/L [facility] Monocytes/100 WBC (Bld) 6.9 % Normal 4.0 - 14.0 % [facility] Neutrophils (Bld) [#/Vol] 8.3 E9/L High 2.0 - 7.5 E9/L [facility] Neutrophils/100 WBC (Bld) 75.0 % Normal 36.0 - 75.0 % [facility] Platelet mean volume (Bld) [Entitic vol] 6.4 fL Normal 6.4 - 10.8 fL [facility] Platelets (Bld) [#/Vol] 319.0 E9/L Normal 150.0 - 500.0 E9/L [facility] RBC (Bld) [#/Vol] 3.3 E12/L Low 4.3 - 5.9 E12/L [facility] WBC corrected for nucl RBC Auto (Bld) [#/Vol] 11.0 E9/L Normal 4.0 - 11.0 E9/L [facility] Inpatient Clinical Summaryon 03-04-2024 Inpatient Clinical Summary Inpatient Clinical Summary [address] [address] Clinical Summary Person Information: Name: JOSÉ LUIS FAULKNER Age: 73 Years : 1950 Sex: Male PCP: Mona Baker MD Marital Status: Phone: [phone] Race: White Ethnicity: Non- or Language: Comoran Visit Id: Visit Reason: Shortness of breath; SOB Speciality: Acuity: Enc Type: Inpatient Med Service: Medical Arrival: 03/02/2024 08:07:40 Discharge: Dispo Type: Admitted as IP to this Hosp Address: [address] [place] [phone] Provider Notes: Diagnosis: 1:Acute on chronic respiratory failure with hypoxia; 2:Acute on chronic heart failure with preserved ejection fraction; 5:Hyperlipidemia, unspecified; 6:PAF (paroxysmal atrial fibrillation); 7:Parkinsonian syndrome; 8:Type 2 diabetes mellitus with hyperlipidemia; 9:Hypertension; 10:Diabetic foot ulcer; Hyperlipidemia, unspecified; Non-pressure chronic ulcer of other part of unspecified foot with unspecified severity Problems Active Pulmonary nodule JASMIN (obstructive sleep apnea) Restrictive lung disease COPD without exacerbation History of bladder cancer Bladder cancer Family history of prostate cancer Screening PSA (prostate specific antigen) Chronic anticoagulation Paraphimosis Urinary retention Pain in limb Morbid obesity Contracture of ankle joint Other obstructive and reflux uropathy Parkinsonian syndrome JASMIN on CPAP skilled nursing (current) use of insulin Weakness generalized BPH with obstruction/lower urinary tract symptoms Type 2 diabetes mellitus with hyperlipidemia Hyperlipidemia, unspecified Chronic systolic heart failure Hypertension PAF (paroxysmal atrial fibrillation) Charcot's joint of foot due to diabetes Chronic anemia Carotid artery stenosis Colon polyps CAD (coronary artery disease) Bipolar I disorder, mild, current or most recent episode depressed, in full remission, with mixed features Hypothyroid Chronic GERD Generalized anxiety disorder Obesity Presence of combination internal cardiac defibrillator (ICD) and pacemaker Smoking Status: Former Smoker Functional Status: Sensory Deficits: Hearing deficit, left ear, Hearing deficit, right ear History of Falls: Within last three months Mobility Assistance Prior to Admission: Independent ADLs: Independent Current Level of Assistance for Self-Care/Mobility: Cognitive Status: Oriented x 3 Allergies No Known Allergies Measurements: Height: 177.80 cm Weight: 100.3 kg Blood Pressure: 106 mmHg / 64 mmHg BMI: 33.02 kg/m2 Procedures No Procedures Documented Immunizations No Immunizations Documented This Visit Final Med List: acetaminophen (acetaminophen 325 mg Tab) 2 Tablets By Mouth every 6 hours as needed Pain. albuterol (Pro-Air HFA CFC free 90 mcg/inh MDI) 2 Puffs Inhalation every 4 hours as needed Shortness of breath or wheezing. albuterol-ipratropium (DuoNeb 2.5 mg-0.5 mg/3 mL Soln-Inh) 3 Milliliter Inhalation 4 times a day. Refills: 0. alprazolam (alprazolam 0.25 mg Tab) 1 Tablets By Mouth 3 times a day as needed anxiety. Refills: 2. amiodarone 200 Milligram By Mouth every day. aripiprazole (aripiprazole 5 mg Tab) 2 Tablets By Mouth every day. aspirin (aspirin 81 mg Oral EC Tab) 1 Tablets By Mouth every day. atorvastatin (atorvastatin 80 mg Tab) 1 Tablets By Mouth at bedtime. carbidopa-levodopa (carbidopa-levodopa 25 mg-100 mg Tab) 1.5 Tablets By Mouth 3 times a day. carvedilol (carvedilol 25 mg Tab) 1 Tablets By Mouth 2 times a day. Refills: 0. cholecalciferol (Vitamin D3 1000 intl units oral tablet) 1 Tablets By Mouth every day. cyanocobalamin (cyanocobalamin 1000 mcg/mL Inj) 1 Milliliter Intramuscular once a month. syringes for B12 injections-3ml, 25 guage 1 inch quantity sufficient for injections.. Refills: 1. enalapril (enalapril 10 mg Tab) 1 Tablets By Mouth 2 times a day. glimepiride (glimepiride 2 mg Tab) 1 Tablets By Mouth 2 times a day. isosorbide mononitrate (isosorbide mononitrate 60 mg ER Tab) 1 Tablets By Mouth every day. lamotrigine (Lamictal 200 mg Tab) 1 Tablets By Mouth every day. levothyroxine (levothyroxine 100 mcg (0.1 mg) Tab) 1 Tablets By Mouth every day. levothyroxine (levothyroxine 75 mcg (0.075 mg) Tab) 1 Tablets By Mouth every day. magnesium oxide (magnesium oxide 400 mg Tab) 1 Tablets By Mouth every day. metformin (metformin 1000 mg Tab) 0.5 tab(s) Oral BID. Misc Prescription (nebulizer machine) please provide machine with supplies. Refills: 0. Misc Prescription (Physical therapy) 0. PT - evaluate, develop and implement treatment plan. Refills: 0. multivitamin with minerals (Multivitamins and Minerals) 1 tablet By Mouth every day. nitroglycerin (Nitro 0.4 mg Tab) 1 tablet Sublingual every 5 minutes as needed Chest pain. (more content not included)... Normal [facility] Inpatient Patient Summaryon 03-04-2024 Inpatient Patient Summary Inpatient Patient Summary [place] [address] Patient Discharge Instructions PERSON INFORMATION Name: JOSÉ LUIS FAULKNER Date of : 1950 Current Date: 03/04/2024 13:35:29 PHYSICIANS Admitting Physician: Paul Samaniego MD Primary Care Physician: Mona Baker MD PCP Comment: Discharge Diagnosis: 1:Acute on chronic respiratory failure with hypoxia; 2:Acute on chronic heart failure with preserved ejection fraction; 5:Hyperlipidemia, unspecified; 6:PAF (paroxysmal atrial fibrillation); 7:Parkinsonian syndrome; 8:Type 2 diabetes mellitus with hyperlipidemia; 9:Hypertension; 10:Diabetic foot ulcer; Hyperlipidemia, unspecified; Non-pressure chronic ulcer of other part of unspecified foot with unspecified severity Condition at Discharge: Improved JOSÉ LUIS FAULKNER has been given the following list of follow-up instructions, prescriptions, and patient education materials: PATIENT FOLLOW-UP INFORMATION Diet: Low Sodium- 2000 mg Discharge Activity: Ambulate as tolerated Discharge Restrictions: Wound Care Instructions: Remove Your Dressing In Days Call Your Doctor For: IF UNABLE TO CONTACT YOUR PHYSICIAN AND YOU FEEL IT IS AN EMERGENCY, GO TO THE NEAREST EMERGENCY ROOM OR CALL 911 Home Treatment: Blood glucose monitoring Devices/Equipment: None, Blood glucose monitor Special Services: Additional Instructions: resume home medications, check weight daily and keep a log, return to ER if symptoms return or worsen Primary Care Physician to provide the following pending test results: None Follow up: With: Address: When: Mona [place] [address] [facility] (1) 03/06/2024 1:20 PM With: Address: When: [place] [address] [place] [address] [facility] (1) Within 7 to 10 days Comments: Call for followup appointment In the event that this physician does not participate in your insurance network, please consult with your insurance company to find a nearby participating provider. Type Location Start Finish State Anticoagulation Follow Up 15 (FT) FT.CARDIO 03/14/2024 2:00 PM 03/14/2024 2:15 PM Confirmed NCV Pacemaker (FT) FT.CARDIO 04/10/2024 11:00 AM 04/10/2024 11:15 AM Confirmed ONC Office Visit 30 (FT) FT.ONCOLOGY 10/30/2024 1:40 PM 10/30/2024 2:00 PM Confirmed Comment: MELY Moss NICOLAAS A, have received the attached patient education materials/instructions and have verbalized understanding: Patient Signature Date Clinican/Nurse Signature Date HERE ARE THE MEDICATION CHANGES THAT OCCURRED DURING YOUR HOSPITAL STAY New Medications Printed Prescriptions Misc Prescription (Physical therapy) 0. PT - evaluate, develop and implement treatment plan. Refills: 0. Last Dose: Ne xt Dose: Medications to Continue with No Changes Other Medications acetaminophen (acetaminophen 325 mg Tab) 2 Tablets By Mouth every 6 hours as needed Pain. Last Dose: Ne xt Dose: albuterol (Pro-Air HFA CFC free 90 mcg/inh MDI) 2 Puffs Inhalation every 4 hours as needed Shortness of breath or wheezing. Last Dose: Ne xt Dose: albuterol-ipratropium (DuoNeb 2.5 mg-0.5 mg/3 mL Soln-Inh) 3 Milliliter Inhalation 4 times a day. Refills: 0. Last Dose: Ne xt Dose: alprazolam (alprazolam 0.25 mg Tab) 1 Tablets By Mouth 3 times a day as needed anxiety. Refills: 2. Last Dose: Ne xt Dose: amiodarone 200 Milligram By Mouth every day. Last Dose: Ne xt Dose: aripiprazole (aripiprazole 5 mg Tab) 2 Tablets By Mouth every day. Last Dose: Ne xt Dose: aspirin (aspirin 81 mg Oral EC Tab) 1 Tablets By Mouth every day. Last Dose: Ne xt Dose: atorvastatin (atorvastatin 80 mg Tab) 1 Tablets By Mouth at bedtime. Last Dose: Ne xt Dose: carbidopa-levodopa (carbidopa-levodopa 25 mg-100 mg Tab) 1.5 Tablets By Mouth 3 times a day. Last Dose: Ne xt Dose: carvedilol (carvedilol 25 mg Tab) 1 Tablets By Mouth 2 times a day. Refills: 0. Last Dose: Ne xt Dose: cholecalciferol (Vitamin D3 1000 intl units oral tablet) 1 Tablets By Mouth every day. Last Dose: Ne xt Dose: cyanocobalamin (cyanocobalamin 1000 mcg/mL Inj) 1 Milliliter Intramuscular once a month. syringes for B12 injections-3ml, 25 guage 1 inch quantity sufficient for injections.. Refills: 1. Last Dose: (more content not included)... Normal [facility] Interdisciplinary Note - Edwardo e Manageron 03-04-2024 Interdisciplinary Note - Manager Of Software Development Interdisciplinary Note - Manager Of Software Development Patient is awake and alert in bed, previously rounded with Dr. Teresa and Cardiology to see. Pt is up in chair, off oxygen at this time. Pt does not have home oxygen. Pt is from home with and daughter, ANTON and grandchildren live in separate area of home. Declines any concerns or DC needs. PT= OPPT, pt is unsure if able to work around his daughter schedule whoe works from home, and states he and his no longer drive. Discussed over options of transportation and transportation list provided. PT has used senior bus in past., and will consider using again if needed. Declines any further concerns or DC needs. Declines any HH services or paramedicine. CRM following . PCP verified and insurance information reviewed and DME discussed. Contact information provided and white board updated. Normal [facility] Comment on above: Result Comment: Elec tronically Signed By: Flaco MCCLELLAND, Estelita\.br\Date and Time Signed: 03/04/24 09:09 EDT PTon 03-04-2024 INR Coag (PPP) [Relative time] 2.71 {INR} Invalid Interpretation Code [facility] Comment on above: Result Comment: INR results are specifically intended to assess patients stabilized on long-term Anticoagulation therapy suggested INR?s ?Less Intensive Anticoagulation? 2.0 ? 3.0 Conventional Range 3.0 ? 4.5 Performed By: #### 2 [id number] #### [facility] [address] [place] [address] PT Coag (PPP) [Time] 30.7 second(s) High 9.4-12.5 [facility] Comment on above: Result Comment: 15 d ays - 4 weeks 1 - 5 months 6 -11 months 1- 5 years 6-10 years 11 -17 years Mean: 11.2 (9.5-12.6) Mean: 11.0 (9.7-12.8) Mean: 11.0 (9.8-13.0) Mean: 11.3 (9.9-13.4) Mean: 11.7 (10.0-14.6) Mean: 11.8 (10.0 - 14.1) Pediatric Reference ranges were obtained from a study by bob Cortés al. prepared from 1437 samples obtained at 7 different centers using the same coagulation reagent and instrumentation as [facility]. Currently there are no coagulation studies available worldwide for children to 14 days, and no normal ranges. Performed By: #### 2 [id number] #### [facility] [address] [place] [address] eGFRon 03-04-2024 eGFR 52 mL/min/1.73 m2 Low >=59 [facility] Comment on above: Performed By: #### 1 [id number] #### [facility] [address] [place] [address] BMPOrdered By: SYSTEM SYSTEM on 03-03-2024 Anion gap [Moles/Vol] 12 mmol/L Normal 6 - 16 mEq/L [facility] Comment on above: Performed By: #### 2 [id number] #### [facility] [address] [place] [address] Calcium [Mass/Vol] 8.8 mg/dL Low 8.9 - 11. 1 mg/dL [facility] Comment on above: Performed By: #### 2 [id number] #### [facility] [address] [place] [address] Chloride [Moles/Vol] 99 mmol/L Low 101 - 1 11 mmol/L [facility] Comment on above: Performed By: #### 2 [id number] #### [facility] [address] [place] [address] CO2 [Moles/Vol] 32 mmol/L High 21 - 31 mmol/L [facility] Comment on above: Performed By: #### 2 [id number] #### [facility] [address] [place] [address] Creatinine [Mass/Vol] 1.5 mg/dL High 0.5 - 1.3 mg/dL [facility] Comment on above: Performed By: #### 2 [id number] #### [facility] [address] [place] [address] Glucose [Mass/Vol] 241 mg/dL High 55 - 199 mg/dL [facility] Comment on above: Performed By: #### 2 [id number] #### [facility] [address] [place] [address] Potassium [Moles/Vol] 4.3 mmol/L Normal 3.5 - 5.3 mmol/L [facility] Comment on above: Performed By: #### 2 [id number] #### [facility] [address] [place] [address] Sodium [Moles/Vol] 139 mmol/L Normal 135 - 145 mmol/L [facility] Comment on above: Performed By: #### 2 [id number] #### [facility] [address] [place] [address] Urea nitrogen [Mass/Vol] 29 mg/dL High 5 - 21 mg/dL [facility] Comment on above: Performed By: #### 2 [id number] #### [facility] [address] [place] [address] BMPon 03-03-2024 Urea nitrogen/Creatinine [Mass ratio] 19 No Units Normal 10-20 [facility] Comment on above: Performed By: #### 2 [id number] #### [facility] [address] [place] [address] CBC w/ Auto DiffOrdered By: SYSTEM SYSTEM on 03-03-2024 Basophils/100 WBC (Bld) 0.2 % Normal 0.0 - 2.0 % [facility] Comment on above: Performed By: #### 2 [id number] #### [facility] [address] [place] [address] Basophils/Leukocytes Auto (Bld) [Pure # fraction] 0.0 E9/L Normal 0.0 - 0.2 E9/L [facility] Comment on above: Performed By: #### 2 [id number] #### [facility] [address] [place] [address] Eosinophils (Bld) [#/Vol] 0.0 E9/L Normal 0.0 - 0.5 E9/L [facility] Comment on above: Performed By: #### 2 [id number] #### [facility] [address] [place] [address] Eosinophils/100 WBC (Bld) 0.0 % Normal 0.0 - 8.0 % [facility] Comment on above: Performed By: #### 2 [id number] #### [facility] [address] [place] [address] Erythrocyte distribution width (RBC) [Ratio] 15.5 % High 10.9 - 14.2 % [facility] Comment on above: Performed By: #### 2 [id number] #### [facility] [address] [place] [address] Hematocrit (Bld) [Volume fraction] 27.9 % Low 37.7 - 49.0 % [facility] Comment on above: Performed By: #### 2 [id number] #### [facility] [address] [place] [address] Hemoglobin (Bld) [Mass/Vol] 9.4 g/dL Low 13.5 - 17.5 gm/dL [facility] Comment on above: Performed By: #### 2 [id number] #### [facility] [address] [place] [address] Lymphocytes (Bld) [#/Vol] 0.8 E9/L Low 1.0 - 4.0 E9/L [facility] Comment on above: Performed By: #### 2 [id number] #### [facility] [address] [place] [address] Lymphocytes/100 WBC (Bld) 9.7 % Low 14.0 - 50.0 % [facility] Comment on above: Performed By: #### 2 [id number] #### [facility] [address] [place] [address] MCH (RBC) [Entitic mass] 29.4 pg Normal 27.0 - 34.0 pg [facility] Comment on above: Performed By: #### 2 [id number] #### [facility] [address] [place] [address] MCHC (RBC) [Mass/Vol] 33.7 g/dL Normal 31.4 - 36.0 gm/dL [facility] Comment on above: Performed By: #### 2 [id number] #### [facility] [address] [place] [address] MCV (RBC) [Entitic vol] 87.3 fL Normal 80.0 - 100.0 fL [facility] Comment on above: Performed By: #### 2 [id number] #### [facility] [address] [place] [address] Monocytes (Bld) [#/Vol] 0.7 E9/L Normal 0.2 - 1.0 E9/L [facility] Comment on above: Performed By: #### 2 [id number] #### [facility] [address] [place] [address] Neutrophils (Bld) [#/Vol] 7.1 E9/L Normal 2.0 - 7.5 E9/L [facility] Comment on above: Performed By: #### 2 [id number] #### [facility] [address] [place] [address] Neutrophils/100 WBC (Bld) 82.0 % High 36.0 - 75.0 % [facility] Comment on above: Performed By: #### 2 [id number] #### [facility] [address] [place] [address] 16025 Platelet mean volume (Bld) [Entitic vol] 6.7 fL Normal 6.4 - 10.8 fL [facility] Comment on above: Performed By: #### 2 [id number] #### [facility] [address] [place] [address] Platelets (Bld) [#/Vol] 323.0 E9/L Normal 150.0 - 500.0 E9/L [facility] Comment on above: Performed By: #### 2 [id number] #### [facility] [address] [place] [address] RBC (Bld) [#/Vol] 3.2 E12/L Low 4.3 - 5.9 E12/L [facility] Comment on above: Performed By: #### 2 [id number] #### [facility] [address] [place] [address] WBC corrected for nucl RBC Auto (Bld) [#/Vol] 8.7 E9/L Normal 4.0 - 11.0 E9/L [facility] Comment on above: Performed By: #### 2 [id number] #### [facility] [address] [place] [address] CHEMISTRYOrdered By: Lab ROP User on 03-03-2024 Glucose [Mass/Vol] 262 mg/dL High 55 - 99 mg/dL [facility] POC Subsection Comment on above: Result Comment: Kennedy SULLIVAN POC Device SN [id number] 1 Invalid Interpretation Code [facility] POC Subsection POC User ID [id number] 1 Invalid Interpretation Code [facility] POC Subsection POC Username LUIS ENRIQUE POWERS Invalid Interpretation Code [facility] POC Subsection CHEMISTRYOrdered By: SYSTEM SYSTEM on 03-03-2024 Urea nitrogen/Creatinine [Mass ratio] 19 mg/mg Normal 10 - 20 [facility] COAGULATIONOrdered By: Zay Saab on 03-03-2024 PT Coag (PPP) [Time] 23.0 s High 9.4 - 1 2.5 second(s) [facility] Auto Coag Comment on above: Interpretive Data: 1 5 days - 4 weeks 1 - 5 months 6 -11 months 1 5 years 6 10 years 11 -17 years Mean: 11.2 (9.5 12.6) Mean: 11.0 (9.7 12.8) Mean: 11.0 (9.8 13.0) Mean: 11.3 (9.9 13.4) Mean: 11.7 (10.0 14.6) Mean: 11.8 (10.0 - 14.1) Pediatric Reference ranges were obtained from a study by Fei Yee et al. prepared from 1437 samples obtained at 7 different centers using the same coagulation reagent and instrumentation as [facility]. Currently there are no coagulation studies available worldwide for children to 14 days, and no normal ranges. Capillary Glucose POCon 02-04 Glucose [Mass/Vol] 262 mg/dL High 55-99 [facility] Comment on above: Result Comment: Kennedy SULLIVAN Performed By: #### 2 [id number] #### [facility] [address] [place] [address] Glucose [Mass/Vol] 168 mg/dL High 55-99 [facility] Comment on above: Result Comment: Kennedy SULLIVAN Performed By: #### 2 [id number] #### [facility] [address] [place] [address] Glucose [Mass/Vol] 205 mg/dL High 55-99 [facility] Comment on above: Result Comment: Kennedy SULLIVAN Performed By: #### 2 [id number] #### [facility] [address] [place] [address] Glucose [Mass/Vol] 211 mg/dL High 55-99 [facility] Comment on above: Result Comment: Kennedy SULLIVAN Performed By: #### 2 [id number] #### [facility] [address] [place] [address] Free [id number] By: SYSTEM SY STEM on 03-03-2024 Free T4 [Mass/Vol] 1.07 ng/dL Normal 0.58 - 1.64 ng/dL [facility] Comment on above: Performed By: #### 2 [id number] #### [facility] [address] [place], [place] [id number] HEMATOLOGYOrdered By: SYSTEM SYSTEM on 03-03-2024 Monocytes/100 WBC (Bld) 8.1 % Normal 4.0 - 14.0 % [facility] Inpatient Clinical Summaryon 03-03-2024 Inpatient Clinical Summary Inpatient Clinical Summary [address] [address] Clinical Summary Person Information: Name: JOSÉ LUIS FAULKNER Age: 73 Years : 1950 Sex: Male PCP: Mona Baker MD Marital Status: Phone: [phone] Race: White Ethnicity: Non- or Language: Comoran Visit Id: Visit Reason: Shortness of breath; SOB Speciality: Acuity: Enc Type: Inpatient Med Service: Medical Arrival: 03/02/2024 08:07:40 Discharge: Dispo Type: Admitted as IP to this Hosp Address: [address] [place] [id number] Provider Notes: Diagnosis: 1:Acute on chronic respiratory failure with hypoxia; 2:Acute on chronic heart failure; 5:Hyperlipidemia, unspecified; 6:PAF (paroxysmal atrial fibrillation); 7:Parkinsonian syndrome; 8:Type 2 diabetes mellitus with hyperlipidemia; 9:Hypertension; 10:Diabetic foot ulcer; Acute systolic CHF (congestive heart failure); Hyperlipidemia, unspecified; Non-pressure chronic ulcer of other part of unspecified foot with unspecified severity Problems Active Pulmonary nodule JASMIN (obstructive sleep apnea) Restrictive lung disease COPD without exacerbation History of bladder cancer Bladder cancer Family history of prostate cancer Screening PSA (prostate specific antigen) Chronic anticoagulation Paraphimosis Urinary retention Pain in limb Morbid obesity Contracture of ankle joint Other obstructive and reflux uropathy Parkinsonian syndrome 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 Weakness generalized BPH with obstruction/lower urinary tract symptoms Type 2 diabetes mellitus with hyperlipidemia Hyperlipidemia, unspecified Chronic systolic heart failure Hypertension PAF (paroxysmal atrial fibrillation) Charcot's joint of foot due to diabetes Chronic anemia Carotid artery stenosis Colon polyps CAD (coronary artery disease) Bipolar I disorder, mild, current or most recent episode depressed, in full remission, with mixed features Hypothyroid Chronic GERD Generalized anxiety disorder Obesity Presence of combination internal cardiac defibrillator (ICD) and pacemaker Smoking Status: Former Smoker Functional Status: Sensory Deficits: Hearing deficit, left ear, Hearing deficit, right ear History of Falls: Within last three months Mobility Assistance Prior to Admission: Independent ADLs: Independent Current Level of Assistance for Self-Care/Mobility: Cognitive Status: Oriented x 3 Allergies No Known Allergies Measurements: Height: 177.80 cm Weight: 104.4 kg Blood Pressure: 149 mmHg / 69 mmHg BMI: 33.02 kg/m2 Procedures No Procedures Documented Immunizations No Immunizations Documented This Visit Final Med List: acetaminophen (acetaminophen 325 mg Tab) 2 Tablets By Mouth every 6 hours as needed Pain. albuterol (Pro-Air HFA CFC free 90 mcg/inh MDI) 2 Puffs Inhalation every 4 hours as needed Shortness of breath or wheezing. albuterol-ipratropium (DuoNeb 2.5 mg-0.5 mg/3 mL Soln-Inh) 3 Milliliter Inhalation 4 times a day. Refills: 0. alprazolam (alprazolam 0.25 mg Tab) 1 Tablets By Mouth 3 times a day as needed anxiety. Refills: 2. amiodarone 200 Milligram By Mouth every day. apixaban (Eliquis 5 mg oral tablet) 1 Tablets By Mouth 2 times a day. aripiprazole (aripiprazole 5 mg Tab) 2 Tablets By Mouth every day. aspirin (aspirin 81 mg Oral EC Tab) 1 Tablets By Mouth every day. atorvastatin (atorvastatin 80 mg Tab) 1 Tablets By Mouth at bedtime. carbidopa-levodopa (carbidopa-levodopa 25 mg-100 mg Tab) 1.5 Tablets By Mouth 3 times a day. carvedilol (carvedilol 25 mg Tab) 1 Tablets By Mouth 2 times a day. Refills: 0. cholecalciferol (Vitamin D3 1000 intl units oral tablet) 1 Tablets By Mouth every day. ciprofloxacin (ciprofloxacin 500 mg Tab) 1 Tablets. cyanocobalamin (cyanocobalamin 1000 mcg/mL Inj) 1 Milliliter Intramuscular once a month. syringes for B12 injections-3ml, 25 guage 1 inch quantity sufficient for injections.. Refills: 1. enalapril (enalapril 10 mg Tab) 1 Tablets By Mouth 2 times a day. glimepiride (glimepiride 2 mg Tab) 1 Tablets By Mouth 2 times a day. insulin isophane (NovoLIN N FlexPen 100 units/mL subcutaneous suspension) 20 Units Subcutaneous 2 times a day. insulin lispro (Humalog) 0-150 = no coverage 151-200 = 2 units 201-250 = 4 units 251-300 = 6 units 301-350 = 8 units 351-400 = 10 units with breakfast and lunch and dinner NO BEDTIME SCALE. isosorbide mononitrate (isosorbide mononitrate 60 mg ER Tab) 1 Tablets By Mouth every day. lamotrigine (Lamictal 200 mg Tab) 1 Tablets By Mouth every day. levothyroxine (levothyroxine 100 mcg (0.1 mg) Tab) 1 Tablets By Mouth every day. levothyroxine (levothyroxine 75 mcg (0.075 mg) Tab) 1 Tablets By Mouth every day. magnesium oxide (magnesium oxide 400 mg Tab) 1 Tabl (more content not included)... Normal [facility] Inpatient Patient Summaryon 03-03-2024 Inpatient Patient Summary Inpatient Patient Summary [address] [address] Patient Discharge Instructions PERSON INFORMATION Name: JOSÉ LUIS FAULKNER Date of : 1950 Current Date: 03/03/2024 09:43:23 PHYSICIANS Admitting Physician: Aden BROUSSARD, Paul Regalado Primary Care Physician: Mona Baker MD PCP Comment: Discharge Diagnosis: 1:Acute on chronic respiratory failure with hypoxia; 2:Acute on chronic heart failure; 5:Hyperlipidemia, unspecified; 6:PAF (paroxysmal atrial fibrillation); 7:Parkinsonian syndrome; 8:Type 2 diabetes mellitus with hyperlipidemia; 9:Hypertension; 10:Diabetic foot ulcer; Acute systolic CHF (congestive heart failure); Hyperlipidemia, unspecified; Non-pressure chronic ulcer of other part of unspecified foot with unspecified severity Condition at Discharge: JOSÉ LUIS FAULKNER has been given the following list of follow-up instructions, prescriptions, and patient education materials: PATIENT FOLLOW-UP INFORMATION Diet: Discharge Activity: Discharge Restrictions: Wound Care Instructions: Remove Your Dressing In Days Call Your Doctor For: IF UNABLE TO CONTACT YOUR PHYSICIAN AND YOU FEEL IT IS AN EMERGENCY, GO TO THE NEAREST EMERGENCY ROOM OR CALL 911 Home Treatment: Blood glucose monitoring Devices/Equipment: None, Blood glucose monitor Special Services: Additional Instructions: Primary Care Physician to provide the following pending test results: Follow up: In the event that this physician does not participate in your insurance network, please consult with your insurance company to find a nearby participating provider. Type Location Start Finish State Anticoagulation Follow Up 15 (FT) FT.CARDIO 03/14/2024 2:00 PM 03/14/2024 2:15 PM Confirmed NCV Pacemaker (FT) FT.CARDIO 04/10/2024 11:00 AM 04/10/2024 11:15 AM Confirmed ONC Office Visit 30 (FT) FT.ONCOLOGY 10/30/2024 1:40 PM 10/30/2024 2:00 PM Confirmed Comment: I, JOSÉ LUIS FAULKNER, have received the attached patient education materials/instructions and have verbalized understanding: Patient Signature Date Clinican/Nurse Signature Date HERE ARE THE MEDICATION CHANGES THAT OCCURRED DURING YOUR HOSPITAL STAY Medications to Continue with No Changes Other Medications acetaminophen (acetaminophen 325 mg Tab) 2 Tablets By Mouth every 6 hours as needed Pain. Last Dose: Ne xt Dose: albuterol (Pro-Air HFA CFC free 90 mcg/inh MDI) 2 Puffs Inhalation every 4 hours as needed Shortness of breath or wheezing. Last Dose: Ne xt Dose: albuterol-ipratropium (DuoNeb 2.5 mg-0.5 mg/3 mL Soln-Inh) 3 Milliliter Inhalation 4 times a day. Refills: 0. Last Dose: Ne xt Dose: alprazolam (alprazolam 0.25 mg Tab) 1 Tablets By Mouth 3 times a day as needed anxiety. Refills: 2. Last Dose: Ne xt Dose: amiodarone 200 Milligram By Mouth every day. Last Dose: Ne xt Dose: apixaban (Eliquis 5 mg oral tablet) 1 Tablets By Mouth 2 times a day. Last Dose: Ne xt Dose: aripiprazole (aripiprazole 5 mg Tab) 2 Tablets By Mouth every day. Last Dose: Ne xt Dose: aspirin (aspirin 81 mg Oral EC Tab) 1 Tablets By Mouth every day. Last Dose: Ne xt Dose: atorvastatin (atorvastatin 80 mg Tab) 1 Tablets By Mouth at bedtime. Last Dose: Ne xt Dose: carbidopa-levodopa (carbidopa-levodopa 25 mg-100 mg Tab) 1.5 Tablets By Mouth 3 times a day. Last Dose: Ne xt Dose: carvedilol (carvedilol 25 mg Tab) 1 Tablets By Mouth 2 times a day. Refills: 0. Last Dose: Ne xt Dose: cholecalciferol (Vitamin D3 1000 intl units oral tablet) 1 Tablets By Mouth every day. Last Dose: Ne xt Dose: ciprofloxacin (ciprofloxacin 500 mg Tab) 1 Tablets. Last Dose: Ne xt Dose: cyanocobalamin (cyanocobalamin 1000 mcg/mL Inj) 1 Milliliter Intramuscular once a month. syringes for B12 injections-3ml, 25 guage 1 inch quantity sufficient for injections.. Refills: 1. Last Dose: Ne xt Dose: enalapril (enalapril 10 mg Tab) 1 Tablets By Mouth 2 times a day. Last Dose: Ne xt Dose: glimepiride (glimepiride 2 mg Tab) 1 Tablets By Mouth 2 times a day. Last Dose: Ne xt Dose: insulin isophane (NovoLIN N FlexPen 100 units/mL subcutaneous suspension) 20 Unit (more content not included)... [facility] Interdisciplinary Note - Edwardo e Manageron 03-03-2024 Interdisciplinary Note - Manager Of Software Development Interdisciplinary Note - Manager Of Software Development Patient is alert in bed, previously rounded with Dr. Teresa. Pt is inpt admit with CHF exacerbation. PT is from home with and also daughter, NATON and 2 grandchildren live in a separate part of the house. Declines any anticipated concerns or DC needs. Pt had home oxygen from [facility], was recently taken away a few weeks ago as it was determined pt no longer needed at home. Pt is currently on 2L. will need to wean off oxygen or desat prior to DC. Pending therapy evals, Medicare rights reviewed, CRM folliowing. . PCP verified and insurance information reviewed and DME discussed. Contact information provided and white board updated. CRM returned to pt room to discuss therapy evals and OPPT vs HH at [facility] Comment on above: Result Comment: Elec tronically Signed By: Flaco MCCLELLAND, Estelita\.ricardo\Date and Time Signed: 03/03/24 14:55 EDT Interdisciplinary Note - Manager Of Software Development Interdisciplinary Note - Manager Of Software Development Patient is alert in bed, previously rounded with Dr. Teresa. Pt is inpt admit with CHF exacerbation. PT is from home with and also daughter, ANTON and 2 grandchildren live in a separate part of the house. Declines any anticipated concerns or DC needs. Pt had home oxygen from [employer], was recently taken away a few weeks ago as it was determined pt no longer needed at home. Pt is currently on 2L. will need to wean off oxygen or desat prior to DC. Pending therapy evals, Medicare rights reviewed, CRM folliowing. . PCP verified and insurance information reviewed and DME discussed. Contact information provided and white board updated. Normal [facility] Comment on above: Result Comment: Elec tronically Signed By: Flaco MCCLELLAND, Estelita\.ricardo\Date and Time Signed: 03/03/24 09:34 EDT Interdisciplinary Note - Rocky n 03-03-2024 Interdisciplinary Note - OT Interdisciplinary Note - OT OT AM-PAC six clicks score: . Pt completes ADL functional transfers CGA and tasks setup A. Pt has necessary bathroom DME for safety and family support. Pt's is present during eval and reports Pt has had multiple falls do to balance issues. It is recommended Pt receives an outpatient PT evaluation to further assess balance deficits. OT to follow Sunday-Sunday progressing as tolerates. No OT needs recommended at this time for discharge. Normal [facility] MagnesiumOrdered By: SYSTEM SYSTEM on 03-03-2024 Magnesium [Mass/Vol] 2.2 mg/dL Normal 1.3 - 2 .4 mg/dL [facility] Comment on above: Performed By: #### 2 [id number] #### [facility] [address] [place] [address] PTOrdered By: Sheree yanez on 03-03-2024 INR Coag (PPP) [Relative time] 2.04 {INR} Invalid Interpretation Code [facility] Auto Coag Comment on above: Result Comment: INR results are specifically intended to assess patients stabilized on long-term Anticoagulation therapy suggested INR?s ?Less Intensive Anticoagulation? 2.0 ? 3.0 Conventional Range 3.0 ? 4.5 Performed By: #### 2 [id number] #### [facility] [address] [place] [address] Interpretive Data: I NR results are specifically intended to assess patients stabilized on long-term Anticoagulation therapy suggested INR s Less Intensive Anticoagulation 2.0 3.0 Conventional Range 3.0 4.5 PTon 03-03-2024 PT Coag (PPP) [Time] 23.0 second(s) High 9.4-12.5 [facility] Comment on above: Result Comment: 15 d ays - 4 weeks 1 - 5 months 6 -11 months 1 ? 5 years 6 ? 10 years 11 -17 years Mean: 11.2 (9.5 ? 12.6) Mean: 11.0 (9.7 ? 12.8) Mean: 11.0 (9.8 ? 13.0) Mean: 11.3 (9.9 ? 13.4) Mean: 11.7 (10.0 ? 14.6) Mean: 11.8 (10.0 - 14.1) Pediatric Reference ranges were obtained from a study by Fei Yee et al. prepared from 1437 samples obtained at 7 different centers using the same coagulation reagent and instrumentation as [facility]. Currently there are no coagulation studies available worldwide for children to 14 days, and no normal ranges. Performed By: #### 2 [id number] #### [facility] [address] [place] [address] TSH With T4fr ReflexOrdered By: SYSTEM SYSTEM on 03-03-2024 TSH Qn 6.84 m[IU]/L High 0.34 - 5.60 mcIU/mL [facility] Comment on above: Performed By: #### 1 [id number] #### [facility] [address] [place] [address] eGFROrdered By: SYSTEM SYSTE M on 03-03-2024 eGFR 48 mL/min/1.73 m2 Low >=59mL/min /1.73 m2 [facility] Comment on above: Performed By: #### 1 [id number] #### [facility] [address] [place] [address] BMPon 03-02-2024 Anion gap [Moles/Vol] 13 mmol/L Normal 6-16 [facility] Comment on above: Performed By: #### 2 [id number] #### [facility] [address] [place] [address] Calcium [Mass/Vol] 8.6 mg/dL Low 8.9-11.1 [facility] Comment on above: Performed By: #### 2 [id number] #### [facility] [address] [place] [address] Chloride [Moles/Vol] 103 mmol/L Normal 101-111 [facility] Comment on above: Performed By: #### 2 [id number] #### [facility] [address] [place] [address] CO2 [Moles/Vol] 27 mmol/L Normal 21-31 [facility] Comment on above: Performed By: #### 2 [id number] #### [facility] [address] [place] [address] Creatinine [Mass/Vol] 1.1 mg/dL Normal 0.5-1.3 [facility] Comment on above: Performed By: #### 2 [id number] #### [facility] [address] [place] [address] Glucose [Mass/Vol] 178 mg/dL Normal 55-199 [facility] Comment on above: Performed By: #### 2 [id number] #### [facility] [address] [place] [address] Potassium [Moles/Vol] 4.2 mmol/L Normal 3.5-5.3 [facility] Comment on above: Performed By: #### 2 [id number] #### [facility] [address] [place] [address] Sodium [Moles/Vol] 139 mmol/L Normal 135-145 [facility] Comment on above: Performed By: #### 2 [id number] #### [facility] [address] [place] [address] Urea nitrogen [Mass/Vol] 18 mg/dL Normal 5-21 [facility] Comment on above: Performed By: #### 2 [id number] #### [facility] [address] [place] [address] Urea nitrogen/Creatinine [Mass ratio] 16 No Units Normal 10-20 [facility] Comment on above: Performed By: #### 2 [id number] #### [facility] [address] [place] [address] BNPon 03-02-2024 Int Ctr BNP Pass Normal [facility] Comment on above: Performed By: #### 1 [id number] #### [facility] [address] [place] [address] Natriuretic peptide B (Bld) [Mass/Vol] 454 pg/mL High 5-80 [facility] Comment on above: Performed By: #### 1 [id number] #### [facility] [address] [place] [address] Blood Gas Art, with Lytes, G satish, [place] 03-02-2024 a/A Ratio Art 45.20 % Normal >=0.80 [facility] Comment on above: Performed By: #### 4 [id number] #### [facility] [address] [place] [address] AaDO2 Art 77.0 mmHg High 5.0-15.0 [facility] Comment on above: Performed By: #### 4 [id number] #### [facility] [address] [place] [address] Allens Test Positive Normal [facility] Comment on above: Performed By: #### 4 [id number] #### [facility] [address] [place] [address] Base Excess Arterial 1.8 mmol/L Low >=2.8 [facility] Comment on above: Performed By: #### 4 [id number] #### [facility] [address] [place] [address] cCa2+ Art 4.60 mg/dL Normal 4.40-5.30 [facility] Comment on above: Performed By: #### 4 [id number] #### [facility] [address] [place] [address] cCl- Art 104.0 mmol/L Normal 101.0-111. 0 [facility] Comment on above: Performed By: #### 4 [id number] #### [facility] [address] [place] [address] cGlu Art 198 mg/dL High 55-99 [facility] Comment on above: Performed By: #### 4 [id number] #### [facility] [address] [place] [address] cK+ Art 4.4 mmol/L Normal 3.5-5.3 [facility] Comment on above: Performed By: #### 4 [id number] #### [facility] [address] [place] [address] cLac Art .7 mmol/L Normal .5-2.2 [facility] Comment on above: Performed By: #### 4 [id number] #### [facility] [address] [place] [address] disciplinary hearing officer+ Art 143.0 mmol/L Normal 135.0-145. 0 [facility] Comment on above: Performed By: #### 4 [id number] #### [facility] [address] [place] [address] Drawn by Norma Johnson Invalid Interpretation Code [facility] Comment on above: Performed By: #### 4 [id number] #### [facility] [address] [place] [address] FCOHb Art 1.4 % Low 1.5-4.9 [facility] Comment on above: Result Comment: Refe rence range Nonsmoker <1.5% Smoker <5.0% Heavy Smoker <9.0% Performed By: #### 4 [id number] #### [facility] [address] [place] [address] FIO2 BG 28 Invalid Interpretation Code [facility] Comment on above: Performed By: #### 4 [id number] #### [facility] [address] [place] [address] FMetHb Art <1.0 Normal 0.0-1.9 [facility] Comment on above: Performed By: #### 4 [id number] #### [facility] [address] [place] [address] FO2Hb Art 91.2 % Low 93.0-100.0 [facility] Comment on above: Performed By: #### 4 [id number] #### [facility] [address] [place] [address] HCO3 (Bld) [Moles/Vol] 25.9 mmol/L Normal 22.0-26.0 [facility] Comment on above: Performed By: #### 4 [id number] #### [facility] [address] [place] [address] Hemoglobin (Bld) [Mass/Vol] 9.9 g/dL Low 12.0-17.0 [facility] Comment on above: Performed By: #### 4 [id number] #### [facility] [address] [place] [address] Oxygen saturation in Blood 92.8 % Low 95.0-100.0 [facility] Comment on above: Performed By: #### 4 [id number] #### [facility] [address] [place] [address] P CO2 Arterial 47.2 mmHg High 35.0-45.0 [facility] Comment on above: Performed By: #### 4 [id number] #### [facility] [address] [place] [address] P O2 Arterial 63.5 mmHg Low 80.0-100.0 [facility] Comment on above: Performed By: #### 4 [id number] #### [facility] [address] [place] [address] pH Arterial 7.373 Normal 7.350-7.45 0 [facility] Comment on above: Performed By: #### 4 [id number] #### [facility] [address] [place] [address] Sample Site R Radial Normal [facility] Comment on above: Performed By: #### 4 [id number] #### [facility] [address] [place] [address] Sample Type Arterial Draw Normal [facility] Comment on above: Performed By: #### 4 [id number] #### [facility] [address] [place] [address] CBC w/ Auto Diffon 4 Basophils/100 WBC (Bld) 0.9 % Normal 0.0-2.0 [facility] Comment on above: Performed By: #### 2 [id number] #### [facility] [address] [place] [address] Basophils/Leukocytes Auto (Bld) [Pure # fraction] 0.1 E9/L Normal 0.0-0.2 [facility] Comment on above: Performed By: #### 2 [id number] #### [facility] [address] [place] [address] Eosinophils (Bld) [#/Vol] 0.2 E9/L Normal 0.0-0.5 [facility] Comment on above: Performed By: #### 2 [id number] #### [facility] [address] [place] [address] Eosinophils/100 WBC (Bld) 1.7 % Normal 0.0-8.0 [facility] Comment on above: Performed By: #### 2 [id number] #### [facility] [address] [place] [address] Erythrocyte distribution width (RBC) [Ratio] 15.6 % High 10.9-14.2 [facility] Comment on above: Performed By: #### 2 [id number] #### [facility] [address] [place] [address] Hematocrit (Bld) [Volume fraction] 30.2 % Low 37.7-49.0 [facility] Comment on above: Performed By: #### 2 [id number] #### [facility] [address] [place] [address] Hemoglobin (Bld) [Mass/Vol] 10.2 g/dL Low 13.5-17.5 [facility] Comment on above: Performed By: #### 2 [id number] #### [facility] [address] [place] [address] Lymphocytes (Bld) [#/Vol] 1.7 E9/L Normal 1.0-4.0 [facility] Comment on above: Performed By: #### 2 [id number] #### [facility] [address] [place] [address] Lymphocytes/100 WBC (Bld) 17.8 % Normal 14.0-50.0 [facility] Comment on above: Performed By: #### 2 [id number] #### [facility] [address] [place] [address] MCH (RBC) [Entitic mass] 29.9 pg Normal 27.0-34.0 [facility] Comment on above: Performed By: #### 2 [id number] #### [facility] [address] [place] [address] MCHC (RBC) [Mass/Vol] 33.9 g/dL Normal 31.4-36.0 [facility] Comment on above: Performed By: #### 2 [id number] #### [facility] [address] [place] [address] MCV (RBC) [Entitic vol] 88.1 fL Normal 80.0-100.0 [facility] Comment on above: Performed By: #### 2 [id number] #### [facility] [address] [place] [address] Monocytes (Bld) [#/Vol] 0.7 E9/L Normal 0.2-1.0 [facility] Comment on above: Performed By: #### 2 [id number] #### [facility] [address] [place] [address] Neutrophils (Bld) [#/Vol] 7.0 E9/L Normal 2.0-7.5 [facility] Comment on above: Performed By: #### 2 [id number] #### [facility] [address] [place] [address] Neutrophils/100 WBC (Bld) 72.7 % Normal 36.0-75.0 [facility] Comment on above: Performed By: #### 2 [id number] #### [facility] [address] [place] [address] Platelet 319.0 E9/L Normal 150.0-500. 0 [facility] Comment on above: Performed By: #### 2 [id number] #### [facility] [address] [place] [address] Platelet mean volume (Bld) [Entitic vol] 6.3 fL Low 6.4-10.8 [facility] Comment on above: Performed By: #### 2 [id number] #### [facility] [address] [place] [address] RBC (Bld) [#/Vol] 3.4 E12/L Low 4.3-5.9 [facility] Comment on above: Performed By: #### 2 [id number] #### [facility] [address] [place] [address] WBC corrected for nucl RBC Auto (Bld) [#/Vol] 9.6 E9/L Normal 4.0-11.0 [facility] Comment on above: Performed By: #### 2 [id number] #### [facility] [address] [place] [address] CHEMISTRYOrdered By: SYSTEM SYSTEM on 03-02-2024 Troponin HS 26.40 pg/mL Normal 15.90 - 38.40 pg/mL [facility] Comment on above: Interpretive Data: T he 95% CI (Confidence Interval) PPV (Positive Predictive Value) for myocardial infarction in females is 38 pg/mL, in males 51 pg/mL. The results should be used in conjunction with clinical conditions of myocardial infarction. (Access High Sensitivity Troponin I Instructions For Use, Milagro Spalding, January 2018) Anion gap [Moles/Vol] 13 mmol/L Normal 6 - 16 mEq/L [facility] Calcium [Mass/Vol] 8.6 mg/dL Low 8.9 - 11. 1 mg/dL [facility] Chloride [Moles/Vol] 103 mmol/L Normal 101 - 1 11 mmol/L [facility] CO2 [Moles/Vol] 27 mmol/L Normal 21 - 31 mmol/L [facility] Creatinine [Mass/Vol] 1.1 mg/dL Normal 0.5 - 1.3 mg/dL [facility] eGFR 70 mL/min/1.73 m2 Normal >=59mL/min /1.73 m2 [facility] Glucose [Mass/Vol] 178 mg/dL Normal 55 - 199 mg/dL [facility] Lactic Acid Lvl 1.1 mmol/L Normal 0.5 - 2.2 mmol/L [facility] Potassium [Moles/Vol] 4.2 mmol/L Normal 3.5 - 5.3 mmol/L [facility] Sodium [Moles/Vol] 139 mmol/L Normal 135 - 145 mmol/L Remisol Chem Troponin HS 26.00 pg/mL Normal 15.90 - 38.40 pg/mL [facility] Comment on above: Interpretive Data: T he 95% CI (Confidence Interval) PPV (Positive Predictive Value) for myocardial infarction in females is 38 pg/mL, in males 51 pg/mL. The results should be used in conjunction with clinical conditions of myocardial infarction. (Access High Sensitivity Troponin I Instructions For Use, Milagro Wander, January 2018) Urea nitrogen [Mass/Vol] 18 mg/dL Normal 5 - 21 mg/dL [facility] Urea nitrogen/Creatinine [Mass ratio] 16 mg/mg Normal 10 - 20 [facility] CHEMISTRYOrdered By: Sohan Sosa on 03-02-2024 Natriuretic peptide B (Bld) [Mass/Vol] 454 pg/mL High 5 - 80 pg/mL [facility] HemeManSS COAGULATIONOrdered By: Chioma Sosa on 03-02-2024 aPTT Coag (PPP) [Time] 46.0 s High 25.1 - 36.5 second(s) [facility] Auto Coag Comment on above: Interpretive Data: P arameter 15 days - 4 weeks 1 - 5 months 6 - 11 months 1 - 5 years 6 - 10 years 11 - 17 years PTT Mean: 35.4 (27.6-45.6) Mean: 33.5 (24.8-40.7) Mean: 32.4 (25.1-40.7) Mean: 31.6 (24.0-39.2) Mean: 31.6 (26.9-38.7) Mean: 31.0 (24.6-38.4) Pediatric Reference ranges were obtained from a study by bob Cortés al. prepared from 1437 samples obtained at 7 different centers using the same coagulation reagent and instrumentation as [facility]. Currently there are no coagulation studies available worldwide for children to 14 days, and no normal ranges. Heparin therapeutic range (represented by Anti-Factor Xa activity of 0.2 - 0.4 U/mL) corresponds to PTT of 56.6 - 109.0 sec. INR Coag (PPP) [Relative time] 2.23 {INR} Invalid Interpretation Code [facility] Comment on above: Interpretive Data: I NR results are specifically intended to assess patients stabilized on long-term Anticoagulation therapy suggested INR s Less Intensive Anticoagulation 2.0 3.0 Conventional Range 3.0 4.5 PT Coag (PPP) [Time] 25.2 s High 9.4 - 1 2.5 second(s) [facility] Auto Co[facility] Comment on above: Interpretive Data: 1 5 days - 4 weeks 1 - 5 months 6 -11 months 1-5 years 6-10 years 11 -17 years Mean: 11.2 (9.5-12.6) Mean: 11.0 (9.7-12.8) Mean: 11.0 (9.8-13.0) Mean: 11.3 (9.9-13.4) Mean: 11.7 (10.0-14.6) Mean: 11.8 (10.0 - 14.1) Pediatric Reference ranges were obtained from a study by bob Cortés al. prepared from 1437 samples obtained at 7 different centers using the same coagulation reagent and instrumentation as [facility]. Currently there are no coagulation studies available worldwide for children to 14 days, and no normal ranges. Capillary Glucose POCon 02-03 Glucose [Mass/Vol] 350 mg/dL High 55-99 [facility] Comment on above: Result Comment: Kennedy espitia RN/ Performed By: #### 2 [id number] #### [facility] [address] [place] [address] ED Clinical Summaryon 2023 ED Clinical Summary ED Clinical Summary [facility] [address] [place], [place] [address] ED Clinical Summary Person Information Name: JOSÉ LUIS FAULKNER [place] Age: 73 Years : 1950 Sex: Male Language: Comoran PCP: Mona Baker MD Marital Status: Phone: [phone] Visit Id: Visit Reason: Shortness of breath; SOB Speciality: Acuity: 1 Enc Type: Inpatient Med Service: Medical Arrival: 03/02/2024 08:07:40 Discharge: LOS: 000 04:14 Checkin: 03/02/2024 08:07:40 Checkout: 03/02/2024 12:21:02 Dispo Type: Admitted as IP to this [facility] EVENTS: Event Name Event Status Request Date/Time Start Date/Time Complete Date/Time Arrive Complete 03/02/2024 08:07:40 03/02/2024 08:07:40 03/02/2024 08:07:40 Document Home Meds Request 03/02/2024 08:07:40 Triage Complete 03/02/2024 08:07:40 03/02/2024 08:17:58 03/02/2024 08:17:58 Bed Assign Complete 03/02/2024 08:08:49 03/02/2024 08:08:49 03/02/2024 08:08:49 Dr Exam Complete 03/02/2024 08:08:49 03/02/2024 08:10:13 03/02/2024 08:10:13 RN Exam Complete 03/02/2024 08:08:49 03/02/2024 08:43:12 03/02/2024 08:43:12 EKG Complete 03/02/2024 08:09:18 03/02/2024 08:13:33 Registration Complete 03/02/2024 08:10:13 03/02/2024 08:18:53 03/02/2024 08:18:53 Pending Labs Inlab 03/02/2024 08:11:44 RT Tx/ABG Request 03/02/2024 08:11:44 Lab Inlab 03/02/2024 08:11:44 Meds Admin Complete 03/02/2024 08:11:44 03/02/2024 08:21:45 Patient Care Request 03/02/2024 08:11:44 X-Ray Complete 03/02/2024 08:11:44 03/02/2024 08:33:58 03/02/2024 08:48:18 RT Request 03/02/2024 08:11:44 RT Tx/ABG Request 03/02/2024 08:11:45 RT Tx/ABG Request 03/02/2024 08:11:45 Reg Complete Request 03/02/2024 08:18:53 Reg Bed Request Complete 03/02/2024 08:18:53 03/02/2024 08:18:53 03/02/2024 08:18:53 Pending Labs Complete 03/02/2024 08:29:27 03/02/2024 08:29:27 03/02/2024 08:50:53 Lab Complete 03/02/2024 08:29:27 03/02/2024 08:29:27 03/02/2024 08:50:53 Fall Risk Request 03/02/2024 08:43:13 Wet Read Request 03/02/2024 08:48:18 Meds Admin Complete 03/02/2024 08:55:36 03/02/2024 11:30:49 Consult Request 03/02/2024 09:16:18 Hospitalist Consult Request 03/02/2024 09:16:18 Pending Labs Complete 03/02/2024 09:23:11 03/02/2024 10:03:33 Admit Request 03/02/2024 09:27:28 Patient Care Request 03/02/2024 09:27:28 Patient Care Request 03/02/2024 09:27:30 Patient Care Request 03/02/2024 09:27:30 Patient Care Request 03/02/2024 09:27:30 Patient Care Request 03/02/2024 09:27:30 Medicare Form Complete 03/02/2024 09:27:31 03/02/2024 10:13:04 Patient Care Request 03/02/2024 09:27:31 Patient Care Request 03/02/2024 09:27:32 Meds Admin Request 03/02/2024 11:16:34 Patient Care Request 03/02/2024 11:21:29 Consult Request 03/02/2024 11:21:29 Pending Labs Request 03/02/2024 11:21:29 Lab Request 03/02/2024 11:21:29 Meds Admin Request 03/02/2024 11:21:29 RT Request 03/02/2024 11:21:29 Echo Request 03/02/2024 11:37:23 Inpatient Bed Ready Complete 03/02/2024 12:21:02 03/02/2024 12:21:02 03/02/2024 12:21:02 ADDRESS: [address] [place] [address] [place] [id number] PHYS DOC NOTES: MEDICAL INFORMATION: Prescriptions Given: Medications to Continue with No Changes Other Medications acetaminophen (acetaminophen 325 mg Tab) 2 Tablets By Mouth every 6 hours as needed Pain. albuterol (Pro-Air HFA CFC free 90 mcg/inh MDI) 2 Puffs Inhalation every 4 hours as needed Shortness of breath or wheezing. albuterol-ipratropium (DuoNeb 2.5 mg-0.5 mg/3 mL Soln-Inh) 3 Milliliter Inhalation 4 times a day. Refills: 0. alprazolam (alprazolam 0.25 mg Tab) 1 Tablets By Mouth 3 times a day as needed anxiety. Refills: 2. amiodarone 200 Milligram By Mouth every day. apixaban (Eliquis 5 mg oral tablet) 1 Tablets By Mouth 2 times a day. aripiprazole (aripiprazole 5 mg Tab) 2 Tablets By Mouth every day. aspirin (aspirin 81 mg Oral EC Tab) 1 Tablets By Mouth every day. atorvastatin (atorvastatin 80 mg Tab) 1 Tablets By Mouth at bedtime. carbidopa-levodopa (carbidopa-levodopa 25 mg-100 mg Tab) 1.5 Tablets By Mouth 3 times a day. carvedilol (carvedilol 25 mg Tab) 1 Tablets By Mouth 2 times a day. Refills: 0. cholecalciferol (Vitamin D3 1000 intl units oral tablet) 1 Tablets By Mouth every day. ciprofloxacin (ciprofloxacin 500 mg Tab) TAKE 1 TABLET BY MOUTH ONCE DAILY. ciprofloxacin (ciprofloxacin 500 mg Tab) 1 Tablets. cyanocobalamin (cyanocobalamin 1000 mcg/mL Inj) 1 Milliliter Intramuscular once a month. syringes for B12 injections-3ml, 25 guage 1 inch quantity sufficient for injections.. Refills: 1. doxycycline (doxycycline hyclate 100 mg Tab) 1 Tablets By Mouth 2 times a day. Take 1 tablet the day before procedure and 1 tablet after procedure. Refills: 0. enalapril (enalapril 10 mg Tab) 1 Tablets By Mouth 2 times a day. glimepiride (glimepiride 2 mg Tab) 1 Tablets By Mouth 2 times a day. insulin isophane (NovoLIN N FlexPen 100 units/mL subcutaneous suspension) 20 Units Subcutaneous 2 times a day. ins (more content not included)... Normal [facility] ED Note-Physicianon 03-02-20 ED Note-Physician ED Note-Physician Basic Information Time Seen: Annemarie Tony M.D. 03/02/2024 08:10 Chief Complaint Patient presents with several days of SOB with hx of COPD. pt recently taken off O2 about 3 weeks ago. Solumedrol given per [facility] History of Present Illness The patient is a 73-year-old male past medical history of COPD, restrictive lung disease, coronary artery disease, status post CABG, atrial fibrillation on Coumadin obstructive sleep apnea, hypertension, hyperlipidemia, diabetes mellitus, who presented to the emergency room via EMS for shortness of breath. The patient states he has been short of breath for past couple of days. His shortness of breath is worse with exertion. The patient denies any cough. The patient states he used to be on oxygen at nighttime, however he had a CT of his chest and they took him off of the oxygen. The patient denies any chest pain. He does report leg swelling. Per EMS the patient was found 89% on room air. He was put on 3 L of oxygen and saturation improved. EMS had given patient 125 mg of Solu-Medrol. The patient is saturating 88% on room air in the emergency room. The daughter states that he has been short of breath for past couple of days. She states the leg swelling is new for the past couple of days. She states he takes torsemide 20 mg daily. The patient denies any other associated symptoms. Review of Systems Additional ROS info: Except as noted in the above Review of Systems and in the History of Present Illness all other systems have been reviewed and are negative or noncontributory. Physical Exam Vitals & Measurements T: 36.9 ?C(Oral) HR: 62(Monitored) RR: 20 BP: 191/92 SpO2: 94% HT: 177 cm WT: 103 kg BMI: 32.88 General: alert, mild to moderate distress Skin: warm, dry, Head: no trauma, normocephalic Neck: Trachea midline, no tenderness, supple Eye: normal conjunctiva, sclera clear, PERRL, EOMI, vision unchanged ENMT: Oral mucosa moist, no pharyngeal erythema or exudate Cardiovascular: regular rate and rhythm, Respiratory: Lungs CTA, respirations non labored, breath sounds equal, Gastrointestinal: soft, non distended, no tenderness, no guarding Extremities: no deformity, no trauma, bilateral pitting edema, diabetic foot ulcer at the bottom of left foot. No signs of infection. Neurological: Alert and oriented, motor strength equal & normal bilaterally, sensation equal & normal bilaterally, speech normal, no focal neuro deficits Psychiatric: cooperative, affect appropriate for age, Medical Decision Making MEDICAL DECISION MAKING Number and Complexity of Problems Differential Diagnosis: [] [facility] Data External documents reviewed: [] My EKG interpretation: [] My CT interpretation: [] My X-ray interpretation: [] My Ultrasound interpretation: [] Decision rules/scores evaluated: [] Discussed with: Hospitalist Treatment and Disposition ED Course: The patient presented with shortness of breath. He was found to be hypoxic. The patient was put on 2 L of oxygen and his saturation improved. Blood gas reviewed. The chest x-ray shows pulmonary venous congestion. More likely his shortness of breath is due to exacerbation of his heart failure as well as COPD. The BN peptide is elevated. White count is normal. The EKG shows no acute ischemic changes. The patient was given breathing treatment. He has received Solu-Medrol by EMS. The patient was given Lasix 40 mg IV. He was given nitroglycerin. His blood pressure was elevated upon arrival which is improved with nitroglycerin. The case is discussed with the hospitalist and the patient will be admitted to the hospitalist services. Shared decision making: [] Code status: [] Critical Care Time: 40 minutes, critical care time is separate from any procedures that are performed. The following was considered in the determination of critical care but not limited to the level medical decision-making, intensive cardiac and/or respiratory monitor, frequent vital sign monitoring, evaluation of laboratory studies, evaluation of a radiographic studies, oxygen monitoring and constant monitoring. Assessment/Plan 1. Acute on chronic respiratory failure with hypoxia (J96.21: Acute and chronic respiratory failure with hypoxia) 2. Acute on chronic heart failure (I50.9: Heart failure, unspecified) COPD exacerbation (J44.1: Chronic obstructive pulmonary disease with (acute) exacerbation) Hypertensive crisis (I16.9: Hypertensive crisis, unspecified) Orders: albuterol-ipratropium, 3 mL, Soln-Inh, Inhalation, Once, Stop date 03/02/24 8:11:00 EDT, STAT, Start date 03/02/24 8:11:00 EDT furosemide, 40 mg = 4 mL, Injection, IV Push, Once, Stop date 03/02/24 8:54:00 EDT, STAT, Start date 03/02/24 8:54:00 EDT, 03/02/24 8:54:00 EDT nitroglycerin, 0.4 mg = 1 tab(s), Tab, SubLingual, q5min PRN Chest pain for 3 dose(s), Stop date Limited # of times, STAT, Start date 03/02/24 8:54:00 EDT, 03/02/24 8:54:00 EDT B-Type Natriuret (more content not included)... Normal [facility] Comment on above: Result Comment: Elec tronically Signed By: Annemarie Tony M.D.\.ricardo\Date and Time Signed: 03/02/24 12:11 EDT ED Patient Education Noteon 03-02-2024 ED Patient Education Note ED Patient Education Note Normal [facility] ED Patient Summaryon 024 ED Patient Summary ED Patient Summary [place] [id number] Patient Discharge Instructions Person Information Name: JOSÉ LUIS FAULKNER Age: 73 Years Arrival Date: 03/02/2024 08:07:40 Discharge Diagnosis: 1:Acute on chronic respiratory failure with hypoxia; 2:Acute on chronic heart failure; 5:Hyperlipidemia, unspecified; 6:PAF (paroxysmal atrial fibrillation); 7:Parkinsonian syndrome; 8:Type 2 diabetes mellitus with hyperlipidemia; 9:Hypertension; 10:Diabetic foot ulcer; Hyperlipidemia, unspecified; Non-pressure chronic ulcer of other part of unspecified foot with unspecified severity Primary Care Physician: Mona Baker MD Provider Information Primary Provider: Annemarie Tony M.D. Advanced Director:None The exam and treatment you received in the Emergency Department were for an urgent problem and are not intended as complete care. It is important that you follow up with a doctor, nurse practitioner, or physician?s assistant director of security for ongoing care. If your symptoms become worse or you do not improve as expected and you are unable to reach your usual health care provider, you should return to the Emergency Department. We are available 24 hours a day. JOSÉ LUIS FAULKNER has been given the following list of patient education materials, prescriptions and follow-up instructions: Follow-up Instructions: In the event that this physician does not participate in your insurance network, please consult with your insurance company to find a nearby participating provider. Patient Education Materials: A MESSAGE TO ALL PATIENTS REGARDING OPIOIDS PRESCRIPTION OPIOIDS: WHAT YOU NEED TO KNOW Prescription opioids can be used to help relieve [id number] pain and are often prescribed following a surgery or injury, or for certain health conditions. These medications can be an important part of the treatment but also come with serious risks. It is important to work with your healthcare provider to make sure you are getting the safest, most effective care. WHAT ARE THE RISKS AND SIDE EFFECTS OF OPIOID USE? Prescription opioids carry serious risks of addiction and overdose, especially with prolonged use. An opioid overdose, often marked by slowed breathing, can cause sudden . The use of prescription opioids can have a number of side effects as well, even when taken as directed: ? Tolerance?meaning you might need to take more of the medication for the same pain relief ? Physical dependence?meaning you have symptoms of withdrawal when a medication is stopped ? Increased sensitivity to pain ? Constipation ? Nausea, vomiting, and dry mouth ? Sleepiness and dizziness ? Confusion ? Depression ? Low levels of testosterone that can result in lower sex drive, energy, and strength ? Itching and sweating RISKS ARE GREATER WITH: ? History of drug misuse, substance use disorder, or overdose ? Mental health conditions (such as depression or anxiety) ? Sleep apnea ? Older age (65 years and older) ? Avoid alcohol while taking prescription opioids. Also, unless specifically advised by your health care provider, medications to avoid include: ? Benzodiazepines (such as Xanax or Valium) ? Muscle relaxants (such as Soma or Flexeril) ? Hypnotics (such as Ambien or Lunesta) ? Other prescription opioids KNOW YOUR OPTIONS Talk to your health care provider about ways to manage your pain that don?t involve prescription opioids. Some of these options may actually work better and have fewer risks and side effects. Options may include: ? Pain relievers such as acetaminophen, ibuprofen, and naproxen ? Some medication that are also used for depression or seizures ? Physical therapy and exercise ? Cognitive behavioral therapy, a psychological, goal-directed approach, in which patients learn how to modify physical, behavioral, and emotional triggers of pain and stress. IF YOU ARE PRESCRIBED OPIOIDS FOR PAIN: ? Never take opioids in greater amounts or more often than prescribed. ? Follow up with your primary health care provider. o Work together to create a plan on how to manage your pain. o Talk about ways to help manage your pain that don?t involve prescription opioids. o Talk about any and all concerns and side effects. ? Help prevent misuse and abuse o Never sell or share prescription opioids. o Never use another person?s prescription opioids. ? Store prescription opioids in a secure place and out of reach of others (this may include visitors, children, friends, and family). ? Safely dispose of unused prescription opioids: Find your community drug take-back program or your pharmacy mail-back program, or flush them down the toilet, following guidance from the Food and Drug Administration (www.fda.gov/Drugs/Resource sForYou). ? Visit www.cdc.gov/drugoverdose to learn (more content not included)... Normal [facility] FT Blood GasesOrdered By: Bill Lozano on 03-02-2024 a/A Ratio Art 45.20 % Normal >=0.80% [facility] Resp Auto SS AaDO2 Art 77.0 mm[Hg] High 5.0 - 15.0 mmHg [facility] Resp Auto SS Allens Test Positive (03/02/24 8:25 AM) Normal [facility] Resp Auto SS Base Excess Arterial 1.8 mmol/L Low >=2.8mm ol/ L FT Resp Auto SS cCa2+ Art 4.60 mg/dL Normal 4.40 - 5.30 mg/dL FT Resp Auto SS cCl- Art 104.0 mmol/L Normal 101.0 - 111.0 mmol/L [facility] Resp Auto SS cGlu Art 198 mg/dL High 55 - 99 mg/dL FT Resp Auto SS cK+ Art 4.4 mmol/L Normal 3.5 - 5.3 mmol/L [facility] Resp Auto SS cLac Art 0.7 mmol/L Normal 0.5 - 2.2 mmol/L [facility] Resp Auto SS disciplinary hearing officer+ Art 143.0 mmol/L Normal 135.0 - 145.0 mmol/L [facility] Resp Auto SS Drawn by Norma Johnson Invalid Interpretation Code [facility] Resp Auto SS FCOHb Art 1.4 % Low 1.5 - 4.9 % [facility] Resp Auto SS Comment on above: Interpretive Data: R eference range Nonsmoker <1.5% Smoker <5.0% Heavy Smoker <9.0% FIO2 BG 28 1 Invalid Interpretation Code [facility] Resp Auto SS FMetHb Art % Normal 0.0 - 1.9 % [facility] Resp Auto SS FO2Hb Art 91.2 % Low 93.0 - 100.0 % [facility] Resp Auto SS HCO3 (Bld) [Moles/Vol] 25.9 mmol/L Normal 22.0 - 26.0 mmol/L [facility] Resp Auto SS Hemoglobin (Bld) [Mass/Vol] 9.9 g/dL Low 12.0 - 17.0 gm/dL [facility] Resp Auto SS P CO2 Arterial 47.2 mm[Hg] High 35.0 - 45.0 mmHg [facility] Resp Auto SS P O2 Arterial 63.5 mm[Hg] Low 80.0 - 100.0 mmHg [facility] Resp Auto SS pH (Bld) 7.373 [pH] Normal 7.350 - 7.450 [facility] Resp Auto SS Sample Site R Radial (03/02/24 8:25 AM) Normal [facility] Resp Auto SS Sample Type Arterial Draw (03/02/24 8:25 AM) Normal [facility] Resp Auto SS HEMATOLOGYOrdered By: SYSTEM SYSTEM on 03-02-2024 Basophils/100 WBC (Bld) 0.9 % Normal 0.0 - 2.0 % Remisol Heme Basophils/Leukocytes Auto (Bld) [Pure # fraction] 0.1 E9/L Normal 0.0 - 0.2 E9/L Remisol Heme Eosinophils (Bld) [#/Vol] 0.2 E9/L Normal 0.0 - 0.5 E9/L Remisol Heme Eosinophils/100 WBC (Bld) 1.7 % Normal 0.0 - 8.0 % Remisol Heme Erythrocyte distribution width (RBC) [Ratio] 15.6 % High 10.9 - 14.2 % [facility] Heme Hematocrit (Bld) [Volume fraction] 30.2 % Low 37.7 - 49.0 % Remisol Heme Hemoglobin (Bld) [Mass/Vol] 10.2 g/dL Low 13.5 - 17.5 gm/dL [facility] Heme Lymphocytes (Bld) [#/Vol] 1.7 E9/L Normal 1.0 - 4.0 E9/L [facility] Heme Lymphocytes/100 WBC (Bld) 17.8 % Normal 14.0 - 50.0 % [facility] Heme MCH (RBC) [Entitic mass] 29.9 pg Normal 27.0 - 34.0 pg Remisol Heme MCHC (RBC) [Mass/Vol] 33.9 g/dL Normal 31.4 - 36.0 gm/dL Rem[facility] Heme MCV (RBC) [Entitic vol] 88.1 fL Normal 80.0 - 100.0 fL Rem[facility] Heme Monocytes (Bld) [#/Vol] 0.7 E9/L Normal 0.2 - 1.0 E9/L Remisol Heme Monocytes/100 WBC (Bld) 6.9 % Normal 4.0 - 14.0 % [facility] Heme Neutrophils (Bld) [#/Vol] 7.0 E9/L Normal 2.0 - 7.5 E9/L [facility] Heme Neutrophils/100 WBC (Bld) 72.7 % Normal 36.0 - 75.0 % [facility] Heme Platelet 319.0 E9/L Normal 150.0 - 500.0 E9/L [facility] Heme Platelet mean volume (Bld) [Entitic vol] 6.3 fL Low 6.4 - 10.8 fL Remisol Heme RBC (Bld) [#/Vol] 3.4 E12/L Low 4.3 - 5.9 E12/L Remisol Heme WBC corrected for nucl RBC Auto (Bld) [#/Vol] 9.6 E9/L Normal 4.0 - 11.0 E9/L Remisol Heme Lactic Acidon 03-02-2024 Lactic Acid Lvl 1.1 mmol/L Normal 0.5-2.2 [facility] Comment on above: Performed By: #### [id number] #### [facility] [address] [place] [address] MICRO OTHER TESTSOrdered By: Jyothi Marcella on 03-02-2024 Rapid COV Int NEG Ctl Pass (03/02/24 8:32 AM) Normal [facility] Man Sero Rapid COV Int POS Ctl Pass (03/02/24 8:32 AM) Normal [facility] SARS-CoV+SARS-CoV-2 (COVID-19) Ag IA.rapid Ql (Resp) Not Detected 15 (03/02/24 8:32 AM) Normal Not Detected [facility] Comment on above: Interpretive Data: [employer] Veritor System for Rapid Detection of SARS-CoV-2 [...] the authorization is terminated or revoked sooner. No Panel InformationOrdered By: [facility] MICROBIOLOGY on 03-02-2024 Blood Culture Charcoal No growth at 2 da ys. Final to follow at 7 days. [facility] Blood Culture Charcoal No growth at 2 da ys. Final to follow at 7 days. [facility] PT & PTTon 03-02-2024 aPTT Coag (PPP) [Time] 46.0 second(s) High 25.1-36.5 [facility] Comment on above: Result Comment: Para [...] the same coagulation reagent and instrumentation as [facility]. Currently there are no coagulation studies available worldwide for children to 14 days, and no normal ranges. Heparin therapeutic range (represented by Anti-Factor Xa activity of 0.2 - 0.4 U/mL) corresponds to PTT of 56.6 - 109.0 sec. Performed By: #### 1 [id number] #### [facility] [address] [place] [address] INR Coag (PPP) [Relative time] 2.23 {INR} Invalid Interpretation Code [facility] Comment on above: Result Comment: INR results are specifically intended to assess patients stabilized on long-term Anticoagulation therapy suggested INR?s ?Less Intensive Anticoagulation? 2.0 ? 3.0 Conventional Range 3.0 ? 4.5 Performed By: #### 1 [id number] #### [facility] [address] [place] [address] PT Coag (PPP) [Time] 25.2 second(s) High 9.4-12.5 [facility] Comment on above: Result Comment: 15 d ays - 4 weeks 1 - 5 months 6 -11 months 1- 5 years 6-10 years 11 -17 years Mean: 11.2 (9.5-12.6) Mean: 11.0 (9.7-12.8) Mean: 11.0 (9.8-13.0) Mean: 11.3 (9.9-13.4) Mean: 11.7 (10.0-14.6) Mean: 11.8 (10.0 - 14.1) Pediatric Reference ranges were obtained from a study by bob Cortés al. prepared from 1437 samples obtained at 7 different centers using the same coagulation reagent and instrumentation as [facility]. Currently there are no coagulation studies available worldwide for children to 14 days, and no normal ranges. Performed By: #### 1 [id number] #### [facility] [address] [place] [address] Pre-Arrival Noteon Pre-Arrival Note Pre-Arrival Note Pre-Arrival Summary Name: , [facility] Current Date: 03/02/2024 08:19:59 EDT Gender: Date of : Age: 73 Pre-Arrival Type: EMS ETA: 03/02/2024 08:27:00 EDT Primary Care Physician: Presenting Problem: SOB Pre-Arrival User: Leo MCCLELLAND, Eron Sotelo Referring Source: Location: [place] Completion Date/Time: 03/02/2024 07:57:00 [facility] Emergency Department Pre-Hospital Report Form Vital Signs: Pre-Hospital Report: Treatment in Route: Response to Treatment: Misc. Issues: Normal [facility] Rapid COVID Antigen ([facility])on 03-02-2024 Rapid COV Int NEG Ctl Pass Normal [facility] Comment on above: Performed By: #### 2 [id number] #### [facility] [address] [place] [address] Rapid COV Int POS Ctl Pass Normal [facility] Comment on above: Performed By: #### 2 [id number] #### [facility] [address] [place] [address] SARS-CoV+SARS-CoV-2 (COVID-19) Ag IA.rapid Ql (Resp) Not detected Normal Not Detected [facility] Comment on above: Result Comment: The [employer]? System for Rapid Detection of SARS-CoV-2 is [...] terminated or revoked sooner. Performed By: #### 2 [id number] #### [facility] [address] [place] [address] Troponin 0 Hr.on 03-02-2024 Troponin HS 26.00 pg/mL Normal 15.90-38.4 0 [facility] Comment on above: Result Comment: The 95% CI (Confidence Interval) PPV (Positive Predictive Value) for myocardial infarction in females is 38 pg/mL, in males 51 pg/mL. The results should be used in conjunction with clinical conditions of myocardial infarction. (Access High Sensitivity Troponin I Instructions For Use, [place], January 2018) Performed By: #### 1 [id number] #### [facility] [address] [place] [address] Troponin 1 Hr.on 03-02-2024 Troponin HS 26.40 pg/mL Normal 15.90-38.4 0 [facility] Comment on above: Order Comment: due @ 0919 Result Comment: The 95% CI (Confidence Interval) PPV (Positive Predictive Value) for myocardial infarction in females is 38 pg/mL, in males 51 pg/mL. The results should be used in conjunction with clinical conditions of myocardial infarction. (Access High Sensitivity Troponin I Instructions For Use, [place], January 2018) Performed By: #### 1 [id number] #### [facility] [address] [place] [address] UA with Cult Rflxon 03-02-20 24 Bilirubin Ql (U) Negative Normal Negative [facility] Comment on above: Performed By: #### 4 [id number] #### [facility] [address] [place] [address] Clarity (U) Clear Normal [facility] Comment on above: Performed By: #### 4 [id number] #### [facility] [address] [place] [address] Color (U) Light-Yellow Normal Yellow [facility] Comment on above: Result Comment: Micr oscopic readings are only performed on those samples that meet specific criteria set forth by [facility]. Performed By: #### 4 [id number] #### [facility] [address] [place] [address] Glucose Ql (U) Trace Abnormal Negative [facility] Comment on above: Performed By: #### 4 [id number] #### [facility] [address] [place] [address] Hemoglobin Auto test strip (U) [Mass/Vol] Negative Normal Negative [facility] Comment on above: Performed By: #### 4 [id number] #### [facility] [address] [place] [address] Ketones Auto test strip Ql (U) Negative Normal Negative [facility] Comment on above: Performed By: #### 4 [id number] #### [facility] [address] [place] [address] Leukocyte esterase Auto test strip Ql (U) Negative Normal Negative [facility] Comment on above: Performed By: #### 4 [id number] #### [facility] [address] [place] [address] Mucus Auto Ql (U) Trace Normal Negative [facility] Comment on above: Performed By: #### 4 [id number] #### [facility] [address] [place] [address] Nitrite Auto test strip Ql (U) Negative Normal Negative [facility] Comment on above: Performed By: #### 4 [id number] #### [facility] [address] [place] [address] pH (U) 5.5 [pH] Invalid Interpretation Code 5.0-9.0 [facility] Comment on above: Performed By: #### 4 [id number] #### [facility] [address] [place] [address] Protein Ql (U) 1+ mg/dL Abnormal Negative [facility] Comment on above: Performed By: #### 4 [id number] #### [facility] [address] [place] [address] RBC Ql (U) 0-3 Normal 0-3 [facility] Comment on above: Performed By: #### 4 [id number] #### [facility] [address] [place], [place] [id number] Specific gravity (U) [Rel density] 1.015 Invalid Interpretation Code 1.005-1.03 0 [facility] Comment on above: Performed By: #### 4 [id number] #### [facility] [address] [place] [address] Urobilinogen (U) [Mass/Vol] Negative Normal Negative [facility] Comment on above: Performed By: #### 4 [id number] #### [facility] [address] [place], [place] [id number] WBC Auto (Urine sed) [#/Area] 0-5 Normal 0-5 [facility] Comment on above: Performed By: #### 4 [id number] #### [facility] [address] [place] [address] Type of Urine collection method Clean Catch Normal [facility] Comment on above: Performed By: #### 4 [id number] #### [facility] [address] [place], [place] [id number] URINALYSISOrdered By: SYSTEM SYSTEM on 03-02-2024 Bilirubin Ql (U) Negative Normal Negativemg /dL [facility] [place] Auto SS Clarity (U) Clear (03/02/24 9:24 AM) Normal Clear [facility] Auto SS Color (U) Light-Yellow 1 (03/02/24 9:24 AM) Normal Yellow [facility] Auto SS Comment on above: Interpretive Data: M icroscopic readings are only performed on those samples that meet specific criteria set forth by [facility]. Glucose Ql (U) Trace mg/dL Invalid Interpretation Code Negativemg /dL [facility]A Auto SS Hemoglobin Auto test strip (U) [Mass/Vol] Negative Normal Negativemg /dL [facility] Auto SS Ketones Auto test strip Ql (U) Negative Normal Negativemg /dL [facility]A Auto SS Leukocyte esterase Auto test strip Ql (U) Negative Normal NegativeLe u/uL [facility] UA Auto SS Mucus Auto Ql (U) Trace graded/LPF Normal Negati vegr aded/LPF [facility] UA Auto SS Nitrite Auto test strip Ql (U) Negative Normal Negativemg /dL [facility]A Auto SS pH (U) 5.5 *NA* (03/02/24 9:24 AM) Invalid Interpretation Code 5.0 - 9.0 [facility]A Auto SS Protein Ql (U) 1+ mg/dL Invalid Interpretation Code Negativemg /dL [facility] Auto SS RBC Ql (U) 0-3 graded/HPF Normal 0-3graded/ HPF [facility] Auto SS Specific gravity (U) [Rel density] 1.015 *NA* (03/02/24 9:24 AM) Invalid Interpretation Code 1.005 - 1.030 [facility] UA Auto SS Urobilinogen (U) [Mass/Vol] Negative Normal Negativemg /dL [facility] UA Auto SS WBC Auto (Urine sed) [#/Area] 0-5 graded/HPF Normal 0-5graded/ HPF [facility] UA Auto SS URINALYSISOrdered By: Eron Bailey on 03-02-2024 UA Spec Desc Clean Catch (03/02/24 9:24 AM) Normal [facility] UA Auto SS XR Chest Single Viewon 03-02 XR Chest Single View Exam Date/Time: 03/02/2024 08:48 EDT Reason for Exam: Difficulty breathing Report IMPRESSION: CARDIOMEGALY WITH INTERSTITIAL EDEMA. CLINICAL HISTORY: Difficulty breathing COMPARISON: 08/27/2023 FINDINGS: Median sternotomy. Pacemaker generator and wires unchanged.. Cardiopericardial silhouette enlarged and unchanged. Pulmonary vasculature indistinct. Ordering Provider: Annemarie Tony FINAL REPORT Dictated: 03/02/2024 11:21 am Maxi Davis MD Signed (Electronic Signature): 03/02/2024 11:21 am Signed by: Maxi Davis MD Transcribed by: JUAN Technologist: HERIBERTO Technical Comments Radiation Dose: Ka,r in mGy = . DAP = . Normal [facility] eGFRon 03-02-2024 eGFR 70 mL/min/1.73 m2 Normal >=59 [facility] Comment on above: Performed By: #### 1 [id number] #### [facility] [address] [place] [address] POCT PT/INRon 02-22-2024 POCT INR 1.9 High .7-1.2 [facility] Comment on above: Performed By: #### 2 [id number] #### [facility] [address] [place] [address] POCT PT 21.1 second(s) High 8.0-15.0 [facility] Comment on above: Performed By: #### 2 [id number] #### [facility] [address] [place] [address] POCT INR 1.0 Normal .7-1.2 [facility] Comment on above: Performed By: #### 2 [id number] #### [facility] [address] [place] [address] POCT PT 12.1 second(s) Normal 8.0-15.0 [facility] Comment on above: Performed By: #### 2 [id number] #### [facility] [address] [place] [address] [facility] Fish and Urine Cyt o ([facility])on 02-19-2024 UVFISH & UC Diagnosis Info Invalid Interpretation Code [facility] Comment on above: Result Comment: A:Ur ine,Urine:Catheterized Interpretation - Adequate cellularity for evaluation. Interpretation - The [facility] FISH study detected normal copy numbers for chromosomes 3, 7, 17, and 9p21. 200 cells were analyzed in this evaluation. No evidence of aneuploidy for chromosomes 3, 7, or 17 or deletion of the 9p21 locus was found in cells present in this specimen. This test does not rule out the possibility of a low grade non-invasive papillary urothelial carcinoma. These findings should be correlated with cytology and cystoscopy results.* MicroScopic Description - MicroScopic Description - Electronically signed by : on: 02/19/2024 17:39:17 Performed By: #### 1 [id number] #### [facility] [address] [place] [address] Pulmonology Office/Clinic Radha tamez 02-15-2024 Pulmonology Office/Clinic Note Pulmonology Office/Clinic Note History of Present Illness Here for follow-up for COPD and post PET scan. The patient reports that his SOB has been relatively unchanged and is mostly with moderate to significant activities recently but still with limited activity. He denies wheezing, significant cough or sputum production. He had some weight gain recently but overall had lost a lot of weight over the past few years. He is compliant with his diuretics. He has as needed albuterol which he uses occasionally with some help. Quite smoking 1998. Review of Systems Constitutional: no fever, no chills, no sweats Respiratory: as per HPI Cardiovascular: no chest pain, no palpitations, no edema Gastrointestinal: no nausea, no vomiting, no diarrhea, no GI bleeding Genitourinary: no dysuria, no hematuria, no discharge, no pain Musculoskeletal: no back pain, no trauma Neurologic: no headache, no dizziness, no numbness, no weakness Heme/Lymph: no bleeding tendency, no bruising tendency, no petechiae, no swollen nodes Additional ROS info: Except as noted in the above Review of Systems and in the History of Present Illness all other systems have been reviewed and are negative or noncontributory. Physical Exam General: Awake and alert in no acute distress HEENT: NC, AT Neck: Supple no JVD Respiratory: Good breath sounds to both lung [place] without wheezing or crackles Cardiovascular: regular rate and rhythm, no murmurs Extremities: No edema. Procedure (02/06/2024 16:00 EDT NM PET w/ CT Scan Skull Base to Midthigh) IMPRESSION: LOW LIKELIHOOD OF MALIGNANCY OF AN APPROXIMATELY 2 CM RIGHT LOWER LOBE PULMONARY NODULE. A FOLLOW-UP LOW DOSE CHEST CT IS SUGGESTED IN 6 MONTHS. SMALL COLLECTION OF GAS WITHIN THE URINARY BLADDER, NOTED. NO OTHER SIGNIFICANT CHANGES FROM PRIOR STUDIES IDENTIFIED. [1] Assessment/Plan 1. COPD without exacerbation (J44.9: Chronic obstructive pulmonary disease, unspecified) PFT results were reviewed and predominantly suggestive of restrictive lung disease. Respiratory symptoms have been relatively stable with intermittent need for albuterol. Now off Anoro and off oxygen supplementation without significant issues. Will continue with as needed albuterol and monitor his respiratory status for any changes. 2. Pulmonary nodule (R91.1: Solitary pulmonary nodule) Total body PET scan was reviewed with the patient and his today. Minimal if any uptake was noted in the right lower lobe nodule, thus making malignancy unlikely. Given the above I will hold off on biopsy for now we will continue monitoring every 6 months for a total of 2 years to assure stabilization. Ordered: CT Chest w/o Contrast Follow-up With When Contact Information Caterina BROUSSARD, Nicolás Chavez, PUL, AYAH Within 6 months Additional Instructions: Problem List/Past Medical History Ongoing Bipolar I disorder, mild, current or most recent episode depressed, in full remission, with mixed features Bladder cancer BPH with obstruction/lower urinary tract symptoms CAD (coronary artery disease) Carotid artery stenosis Charcot's joint of foot due to diabetes Chronic anemia Chronic anticoagulation Chronic GERD Chronic systolic heart failure Colon polyps Contracture of ankle joint COPD without exacerbation Family history of prostate cancer Generalized anxiety disorder History of bladder cancer Hyperlipidemia, unspecified Hypertension 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 Morbid obesity Obesity JASMIN (obstructive sleep apnea) JASMIN on CPAP Other obstructive and reflux uropathy PAF (paroxysmal atrial fibrillation) Pain in limb Paraphimosis Parkinsonian syndrome Presence of combination internal cardiac defibrillator (ICD) and pacemaker Pulmonary nodule Restrictive lung disease Screening PSA (prostate specific antigen) Type 2 diabetes mellitus with hyperlipidemia Urinary retention Weakness generalized 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 (01/17/2016), CABG - Coronary artery bypass graft, Cardiovascular stress test using pharmacologic stress agent, Colonoscopy and biopsy of colon, Cystoscopy, Esophagogastroduodenoscopy and biopsy, Mastoidectomy. Medications acetaminophen 325 mg Tab, 650 mg= 2 tab(s), Oral, q6hr, PRN Aldactone 25 mg Tab, 25 mg= 1 tab(s), Oral, Daily alprazolam 0.25 mg Tab, 0.25 mg= 1 tab(s), Oral, TID, PRN, 2 refills amiodarone, 200 mg, (more content not included)... Normal [facility] NM PET w/ CT Scan Skull Base to Midthighon 02-10-2024 NM PET w/ CT Scan Skull Base to Midthigh Exam Date/Time: 02/06/2024 16:00 EDT Reason for Exam: Pulmonary nodule Report IMPRESSION: LOW LIKELIHOOD OF MALIGNANCY OF AN APPROXIMATELY 2 CM RIGHT LOWER LOBE PULMONARY NODULE. A FOLLOW-UP LOW DOSE CHEST CT IS SUGGESTED IN 6 MONTHS. SMALL COLLECTION OF GAS WITHIN THE URINARY BLADDER, NOTED. NO OTHER SIGNIFICANT CHANGES FROM PRIOR STUDIES IDENTIFIED. EXAM: NM PET w/ CT Scan Skull Base to Midthigh DATE: 02/06/2024 4:00 PM CLINICAL HISTORY: Pulmonary nodule. COMPARISON: Chest CT 12/20/[address] abdomen and pelvis 12/13/2022. TECHNIQUE: Following the administration of 14.02 millicuries of O01-Vceaclyyjuhxujrsjv (FDG), scans were obtained from the base of the skull to the mid thigh on a dedicated PET CT unit. Using the glassblower\X2019\s standard software, data were reconstructed using filtered back projection with and without attenuation correction. A low dose, noncontrast CT provided attenuation correction and anatomic localization. The patient\X2019\s baseline blood glucose was 118. FINDINGS: Mild hypermetabolism is present within an approximately 2 cm right lower lobe pulmonary nodule (SUV max 1.8), most likely postinflammatory/infectious rather than malignancy. A follow-up low dose chest CT is suggested in 6 months. A small collection of gas within the mild to moderately distended but otherwise unremarkable-appearing urinary bladder, possibly related to recent instrumentation/catheteriza tion or uncomplicated cystitis. There are no other abnormal areas of hypermetabolism are identified elsewhere within the chest, neck, abdomen or pelvis. Previously described and chronic findings have not significantly changed from the prior studies. Report Ordering Provider: Nicolás Diggs FINAL REPORT Dictated: 02/10/2024 9:21 am Per Arnold MD Signed (Electronic Signature): 02/10/2024 9:21 am Signed by: Per Arnold MD Transcribed by: JUAN Technologist: JEET Technical Comments Dose (mCi F-18 FDG): 13.5 Imaging Post Administration (mins): 50 Normal [facility] POCT PT/INRon 02-08-2024 POCT INR 1.7 High .7-1.2 [facility] Comment on above: Performed By: #### 2 [id number] #### [facility] [address] [place] [address] POCT PT 18.6 second(s) High 8.0-15.0 [facility] Comment on above: Performed By: #### 2 [id number] #### [facility] [address] [place] [address] Main OR Intraoperative Recor don 02-05-2024 Main OR Intraoperative Record Main OR Intraoperative Record IntraOp Document Type [facility] Summary Primary Physician: Andi WARE MD Finalized Date/Time: 02/05/24 11:34:06 Pt. Name: JOSÉ LUIS FAULKNER/Sex: 1950 Male Med Rec #: [id number] Physician: Andi WARE MD Financial #: [id number] Pt. Type: O Room/Bed: / Admit/Disch: 02/05/24 10:25:59 - Institution: Case Times FT[facility]O Entry 1 Patient Times In Room 02/05/24 11:26:00 Out Room 02/05/24 11:39:00 Procedure Times Start 02/05/24 11:28:00 Stop 02/05/24 11:32:00 Anesthesia Times Last Modified By: Jana MCCLELLAND, Linda Leahy 02/05/24 11:33:46 Case Attendance FT[facility]O Entry 1 Entry 2 Entry 3 Case Attendee CHAZ BROUSSARD, Andi Bates RN, Shahana Tuttle Role Performed Surgeon - Primary Pulmonary Function Technician - Primary Scrub - Primary Time In 02/05/24 11:26:00 02/05/24 11:26:00 02/05/24 11:26:00 Time Out 02/05/24 11:39:00 02/05/24 11:39:00 02/05/24 11:39:00 Procedure CYSTOSCOPY LOCAL(.) CYSTOSCOPY LOCAL(.) CYSTOSCOPY LOCAL(.) Comments Last Modified By: Jana MCCLELLAND, Linda Bates RN, Linda Bates RN, Linda Leahy 02/05/24 Marina Leahy 02/05/24 Marina Leahy 02/05/24 11:33:57 11:33:57 11:33:57 Surgical Procedures FT[facility]O Entry 1 Procedure Description Procedure CYSTOSCOPY LOCAL Modifiers . Surgeon Description CYSTOCOPY WITH FISH AND CYTOLOGY Primary Procedure Yes Primary Surgeon Andi WARE MD Start 02/05/24 11:28:00 Stop 02/05/24 11:32:00 Anesthesia Type Local Surgical Service Urology Wound Class 2 - Clean-Contaminated Last Modified By: Jana MCCLELLAND, Linda Leahy 02/05/24 11:33:56 General Case Data [facility] Pre-Care Text: Classifies surgical wound, implements aseptic technique, initiates traffic control Entry 1 Case Information OR URO 1 FT Case Level None Wound Class 2 - Clean-Contaminated Specialty Urology Preop Diagnosis HISTORY OF BLADDER Postop Same As Preop Yes CANCER Postop Diagnosis HISTORY OF BLADDER Outcomes Met? Yes CANCER Last Modified By: Jana MCCLELLAND, Linda Leahy 02/05/24 11:25:47 Post-Care Text: The patient is free from signs and symptoms of infection EU IntraOp - [facility] Pre-Care Text: Implements protective measures prior to operative or invasive procedure, confirms identity before the operative or invasive procedure, verifies operative procedure, surgical site, and laterality Entry 1 EU Perioperative Protocols Procedure(s) CYSTOSCOPY LOCAL(.) Patient Identity Birthday, ID Band Verified (select at Check, Patient least 2): Participation Consents / H and P H&P, Surgery/Procedure Operative Site N/A Verified Consent Marking Verified Surgical Site Yes Laterality Verified n/a Verified Procedure Verified Yes Correct Patient Yes Position Verified Availability Equipment, Medication Time Out Andi WARE MD, Verified (If Participants Jana MCCLELLAND, Linda Applicable) Kojo Shin Laura C Time Out Complete 02/05/24 11:28:00 Allergies Reviewed? Yes Allergies Reviewed Self/Patient With Body Position Supine Prep Area PENIS Prep Agents Betadine Solution Skin. Condition Unable to Visualize Description PARTIALLY CLOTHED Additional FISH Specimens Comment AND CYTOLOGY Specimens Collected Vitals - EU Blood Pressure 155/70 Pulse 60 bpm Respirations 18 br/min SPO2 I&O - EU Outcomes Met? Yes Last Modified By: Linda Bates RN 02/05/24 11:30:11 Post-Care Text: The patient is free from signs and symptoms of injury caused by extraneous objects Sign Out [facility] Entry 1 Before Patient Leaves OR Nurse verbally Yes Nurse verbally Yes confirms with the confirms with the team the name of team that the procedure(s) instrument, sponge, recorded and needle counts are correct (or N/A) Nurse verbally Yes Nurse verbally n/a confirms with the confirms with the team how the team whether there specimen is labeled are any equipment (including patient problems to be name), if applicable addressed Sign Out Complete 02/05/24 11:32:00 Last Modified By: Linda Bates RN 02/05/24 11:33:53 Case Comments Finalized By: Linda Bates RN Document Signatures Signed By: Linda Bates RN 02/05/24 11:34 Normal [facility] Main OR Preoperative Recordo n 02-05-2024 Main OR Preoperative Record Main OR Preoperative Record Holding Area Document Type [facility] Summary Primary Physician: Andi WARE MD Finalized Date/Time: 02/05/24 11:27:03 Pt. Name: JOSÉ LUIS FAULKNER/Sex: 1950 Male Med Rec #: [id number] Physician: Andi WARE MD Financial #: [id number] Pt. Type: O Room/Bed: / Admit/Disch: 02/05/24 10:25:59 - Institution: Case Times Holding [facility] Pre-Care Text: Verifies consent for planned procedure, identifies individual values and wishes concerning care, includes family members in perioperative teaching Secures patient's records' belongings, and valuables, maintains patient's dignity and privacy, and maintains patient confidentiality Entry 1 In Holding 02/05/24 10:44:00 Outcomes Met? Yes Last Modified By: Darlene Barroso LPN 02/05/24 10:44:10 Post-Care Text: The patient participates in decisions affecting his or her perioperative plan of care The patient's right to privacy is maintained Surgery Checklist FT[facility]O Entry 1 Patient Birthday, ID Band Procedure History and Physical, Identification: Check, Patient Verification: Surgical Consent, With Participation Patient NPO after Midnight: n/a Personal Items: Cataract Lens Implant, Defibrilator, Dentures, Pacemaker Limitations: stand by assist Skin Integrity Intact, Walker, Warm, & Dry Vitals - EU Blood Pressure 155/70 Pulse 60 bpm Respirations 18 br/min SPO2 Additional MIKE MCCLELLAND Reviewed Yes Specimens Collected Last Modified By: Linda Bates RN 02/05/24 11:27:02 Finalized By: Linda Bates RN Document Signatures Signed By: Darlene Barroso LPN 02/05/24 10:46 Linda Bates RN 02/05/24 11:27 Normal [facility] Operative Reporton Operative Report Operative Report Patient: JOSÉ LUIS FAULKNER Age: 73 years Sex: Male : 1950 Associated Diagnoses: None Author: Andi WARE MD Procedure Operative Information Details: Date/ Time: 02/05/2024 11:35:00. Pre-Op Dx: Hx of Bladder CA - Z85.51. Post-Op Dx: Same. Anesthesia Type: Local. Procedure: Local Cystoscopy. Complications: None. Risks/Benefits/Informed Consent: Surgical risks, benefits, details of the procedure have been explained to the patient, Full informed consent has been obtained. Intraoperative Information Prepped: Patient is brought back to the endoscopy suite, Patient is placed in supine position, Patient prepped in the usual fashion with Betadine solution, 2% Xylocaine Jelly is placed per Urethra, After waiting several minutes the Cystoscope is introduced. The Urethra is: Normal. The Prostatic Urethra is: Unobstructed. The Bladder is: Trabeculated (Mild (1), No bladder tumors.). The ureteral orifices: Show efflux of clear urine. Specimens Removed: Voided specimen sent for cytology. Devices Implanted: None. Removal: Cystoscope is removed, The patient tolerated it well. Postoperative Information Discharge: Patient is discharged home with antibiotic coverage, Follow up arranged. Normal [facility] Comment on above: Result Comment: Elec tronically Signed By: CHAZ BROUSSARD, Andi Mar\Date and Time Signed: 02/05/24 11:36 EDT Reminderson 02-05-2024 Reminders Normal [facility] Reminders Normal [facility] Uro[facility] Fish and Urine Cyt o ([facility])on 02-05-2024 [facility] Method of Extraction Catheterized Normal [facility] Comment on above: Performed By: #### 1 [id number] #### [facility] [address] [place] [address] [facility] Number of Jars 1 Invalid Interpretation Code [facility] Comment on above: Performed By: #### 1 [id number] #### [facility] [address] [place] [address] [facility] Specimen Urine Normal [facility] Comment on above: Performed By: #### 1 [id number] #### [facility] [address] [place] [address] [facility] Type of Service Technical Only Normal [facility] Comment on above: Performed By: #### 1 [id number] #### [facility] [address] [place] [address] Pulmonology Office/Clinic No joi 01-23-2024 Pulmonology Office/Clinic Note Pulmonology Office/Clinic Note Chief Complaint testing results History of Present Illness Here for follow-up for COPD and post CT of the chest and sleep study. The patient reports that his SOB has been relatively unchanged and is mostly with moderate to significant activities recently but still with limited activity. He denies wheezing, significant cough or sputum production. He had some weight gain recently but overall had lost a lot of weight over the past few years. He is compliant with his diuretics. He has as needed albuterol which he uses occasionally with some help. Still using oxygen as needed since his recent hospitalization. Quite smoking 1998. Still poorly compliant with his CPAP machine as he was removing his mask at night and is only. He is using oxygen at night with help and denies significant fatigue or daytime sleepiness. Review of Systems PHQ Score Initial Depression Screen Score: 0 SCORE Constitutional: no fever, no chills, no sweats Respiratory: as per HPI Cardiovascular: no chest pain, no palpitations, no edema Gastrointestinal: no nausea, no vomiting, no diarrhea, no GI bleeding Genitourinary: no dysuria, no hematuria, no discharge, no pain Musculoskeletal: no back pain, no trauma Neurologic: no headache, no dizziness, no numbness, no weakness Heme/Lymph: no bleeding tendency, no bruising tendency, no petechiae, no swollen nodes Additional ROS info: Except as noted in the above Review of Systems and in the History of Present Illness all other systems have been reviewed and are negative or noncontributory. Physical Exam Vitals & Measurements HR: 60(Peripheral) BP: 125/70 SpO2: 97% HT: 68 in HT: 172 cm WT: 107 kg WT: 235.4 lb BMI: 36.17 General: Awake and alert in no acute distress HEENT: NC, AT Neck: Supple no JVD Respiratory: Good breath sounds to both lung calhoun without wheezing or crackles Cardiovascular: regular rate and rhythm, no murmurs Extremities: No edema. Procedure IMPRESSION: Pulmonary function test results are suggestive of a mild degree of restrictive lung disease with a mild decrease in the diffusion capacity. This can be seen in intrinsic lung disease such as pulmonary fibrosis. When compared to the patient's prior pulmonary function test performed on May 08, 2022, there has been a mild improvement in the total lung capacity and the diffusion capacity since then. [1] (12/20/2023 12:[address] Chest w/o Contrast) IMPRESSION: 1.9 CM RIGHT LOWER LOBE NODULE. RECOMMEND FOLLOW-UP CT OF THE CHEST WITHOUT CONTRAST IN 3 MONTHS, PET/CT, OR TISSUE SAMPLING. [2] Assessment/Plan 1. COPD without exacerbation (J44.9: Chronic obstructive pulmonary disease, unspecified) PFT results were reviewed and predominantly suggestive of restrictive lung disease. Respiratory symptoms have been relatively stable with intermittent need for albuterol. Now off Anoro without significant issues. Will continue same. The patient's oxygen saturation is 97% on room air. He had no significant oxygen desaturation while asleep on his most recent sleep study. Okay to discontinue oxygen supplementation 2. Pulmonary nodule (R91.1: Solitary pulmonary nodule) CT scan of the chest was reviewed with the patient, and daughter today. There is a 1.9 cm right lower lobe nodule with relatively smooth edges. Based on the appearance it is somewhat less likely to be cancerous in nature. There is no prior CTs available except for the report from a CAT scan in 2011 which described atelectatic changes in the right base. Discussed with the patient treatment options. We decided to proceed with a total body PET scan and decide on biopsy versus observation based on the results. Ordered: NM PET w/ CT Scan Skull Base to Midthigh 3. JASMIN (obstructive sleep apnea) (G47.33: Obstructive sleep apnea (adult) (pediatric)) His sleep study results were reviewed and discussed with the patient today. No evidence of significant obstructive sleep apnea was noted. I suspect there is significant weight loss has helped with his underlying obstructive sleep apnea. Will discontinue CPAP. Follow-up With When Contact Information Caterina BROUSSARD, Nicolás Chavez, PUL, AYAH [address] [facility] ([facility]) [place] [address]- Additional Instructions: after his testing is completed Problem List/Past Medical History Ongoing Bipolar I disorder, mild, current or most recent episode depressed, in full remission, with mixed features Bladder cancer BPH with obstruction/lower urinary tract symptoms CAD (coronary artery disease) Carotid artery stenosis Charcot's joint of foot due to diabetes Chronic anemia Chronic anticoagulation Chronic GERD Chronic systolic heart failure Colon polyps Contracture of ankle joint COPD without exacerbation Family history of prostate cancer Generalized anxiety disorder History of bladder cancer Hyperlipidemia, unspecified Hypertension Hypothyroid (more content not included)... Normal [facility] POCT PT/INRon 01-11-2024 POCT INR 2.3 High .7-1.2 [facility] Comment on above: Performed By: #### 2 [id number] #### [facility] [address] [place] [address] POCT PT 23.6 second(s) High 8.0-15.0 [facility] Comment on above: Performed By: #### 2 [id number] #### [facility] [address] [place] [address] POCT PT/INRon 12-28-2023 POCT INR 2.1 High .7-1.2 [facility] Comment on above: Performed By: #### 2 [id number] #### [facility] [address] [place] [address] POCT PT 22.0 second(s) High 8.0-15.0 [facility] Comment on above: Performed By: #### 2 [id number] #### [facility] [address] [place] [address] CT Chest w/o Contraston 12-03 CT Chest w/o Contrast Exam Date/Time: 12/20/2023 12:20 EDT Reason for Exam: J44.9;Other (please specify) Report IMPRESSION: 1.9 CM RIGHT LOWER LOBE NODULE. RECOMMEND FOLLOW-UP CT OF THE CHEST WITHOUT CONTRAST IN 3 MONTHS, PET/CT, OR TISSUE SAMPLING. EXAM: CT Chest w/o Contrast History: COPD. History of smoking. Technique: Multiple contiguous axial images were obtained of the thorax from the thoracic inlet through the upper abdomen without IV contrast. Multiplanar reformats were obtained. Unless otherwise stated, incidental findings identified in this report do not require routine follow-up imaging. Comparison: Chest radiograph 03/09/2023 Findings: Visualized portion of the thyroid gland is within normal limits. No axillary, mediastinal, or hilar lymphadenopathy. No thoracic aortic aneurysm. Atherosclerotic calcification of the thoracic aorta. Heart size is mildly enlarged. No significant pericardial effusion. Postsurgical changes of CABG. Coronary artery calcifications/postsurgical changes are identified. Esophagus is within normal limits. A 1.9 cm pulmonary nodule of the right lower lobe partially abuts the posterior pleura. No consolidation, pleural effusion, or pneumothorax. Visualized upper abdomen demonstrates no acute abnormality. No acute osseous abnormality. No distinct bone lesion. Degenerative changes of the thoracic spine. All CT scans at this facility use dose modulation, iterative reconstruction, and/or weight based dosing when appropriate to reduce radiation dose to as low as reasonably achievable. Report Ordering Provider: Nicolás Diggs FINAL REPORT Dictated: 12/24/2023 12:39 pm Miguel Young DO Signed (Electronic Signature): 12/24/2023 12:39 pm Signed by: Miguel Young DO Transcribed by: JUAN Technologist: Normal [facility] POCT PT/INRon 12-21-2023 POCT INR 2.5 High .7-1.2 [facility] Comment on above: Performed By: #### 2 [id number] #### [facility] [address] [facility] [place] [address] POCT PT 25.8 second(s) High 8.0-15.0 [facility] Comment on above: Performed By: #### 2 [id number] #### [facility] [address] [facility] [place] [address] POCT PT/INRon 12-14-2023 POCT INR 4.0 High .7-1.2 [facility] Comment on above: Performed By: #### 2 [id number] #### [facility] [address] [facility] [place] [address] POCT PT 39.3 second(s) High 8.0-15.0 [facility] Comment on above: Performed By: #### 2 [id number] #### [facility] [address] [facility] [place] [address] Reminderson 12-11-2023 Reminders Normal [facility] Office/Cl inic Noteon 12-05-2023 Heart and Vascular Office/Clinic Note [facility] Office/Clinic Note Chief Complaint her for PFT results History of Present Illness Here for follow-up for COPD and JASMIN. Here with and with his daughter over the phone as well on speaker (poor historian as he is becoming more forgetful). The patient reports that his SOB has been relatively unchanged and is mostly with moderate to significant activities recently but still with limited activity. He denies wheezing, significant cough or sputum production. He had some weight gain since his last visit. He is compliant with his diuretics. He has been using Anoro and as needed albuterol with some help. Now using oxygen as needed since his recent hospitalization. He has been having issues with the cost of Anoro recently. Quite smoking 1998. Still poorly compliant with his CPAP machine as he was removing his mask at night and is only. He is using oxygen at night with help and denies significant fatigue or daytime sleepiness Review of Systems Constitutional: no fever, no chills, no sweats Respiratory: as per HPI Cardiovascular: no chest pain, no palpitations, no edema Gastrointestinal: no nausea, no vomiting, no diarrhea, no GI bleeding Genitourinary: no dysuria, no hematuria, no discharge, no pain Musculoskeletal: no back pain, no trauma Heme/Lymph: no bleeding tendency, no bruising tendency, no petechiae, no swollen nodes Additional ROS info: Except as noted in the above Review of Systems and in the History of Present Illness all other systems have been reviewed and are negative or noncontributory. Physical Exam Vitals & Measurements HR: 61(Peripheral) RR: 16 BP: 126/70 SpO2: 96% HT: 68 in HT: 172 cm WT: 107.6 kg WT: 236.72 lb BMI: 36.37 General: Awake and alert in no acute distress HEENT: NC, AT Neck: Supple no JVD Respiratory: Good breath sounds to both lung calhoun without wheezing or crackles Cardiovascular: regular rate and rhythm, no murmurs Extremities: No edema. Procedure IMPRESSION: Pulmonary function test results are suggestive of a mild degree of restrictive lung disease with a mild decrease in the diffusion capacity. This can be seen in intrinsic lung disease such as pulmonary fibrosis. When compared to the patient's prior pulmonary function test performed on May 08, 2022, there has been a mild improvement in the total lung capacity and the diffusion capacity since then. [1] (08/27/2023 21:14 EDT XR Chest Single View) IMPRESSION: NO EVIDENCE OF ACTIVE CARDIOPULMONARY DISEASE, BY PORTABLE CHEST RADIOGRAPHY. [2] Assessment/Plan 1. COPD without exacerbation (J44.9: Chronic obstructive pulmonary disease, unspecified) With repeated PFTs again showing no significant obstructive lung disease with mostly restrictive lung disease component. Did not get a CT of the chest to evaluate his lung parenchyma yet. Given the high cost of Anoro and the above, I will discontinue Anoro for now and use albuterol on as-needed basis. Will reevaluate if his symptoms change. Ordered: CT Chest w/o Contrast 2. Restrictive lung disease (J98.4: Other disorders of lung) PFT results were reviewed and discussed with the patient. Mild restrictive lung disease with a mild decrease in diffusion capacity, however this has somewhat improved when compared to his most recent PFT back in May 2022. His most recent chest x-ray was reviewed and appeared unremarkable. He did not get his CAT scan done yet for unclear reasons. I will reorder his CT to rule out pulmonary fibrosis due to amiodarone use and reevaluate based on that. Ordered: CT Chest w/o Contrast CT Chest w/o Contrast 3. JASMIN (obstructive sleep apnea) (G47.33: Obstructive sleep apnea (adult) (pediatric)) With poor compliance and tolerance to CPAP. Significant underlying cardiac issues. He is interested in pursuing alternative treatment such as inspire. I will repeat his sleep study to evaluate the severity and decide on treatment based on the results. In the meantime he was encouraged to continue to try to use CPAP as tolerated. 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 Normal [facility] Comment on above: Result Comment: Elec tronically Signed By: Nicolás Diggs MD\.br\Date and Time Signed: 12/05/23 10:47 EDT POCT PT/INRon 12-04-2023 POCT INR 2.4 High .7-1.2 [facility] Comment on above: Performed By: #### 2 [id number] #### [facility] [address] [place] [address] POCT PT 25.0 second(s) High 8.0-15.0 [facility] Comment on above: Performed By: #### 2 [id number] #### [facility] [address] [address] Coding Summary.on 11-26-2023 Coding Summary. PNULOxrn54NWd9yEs+PG hlYWQ+P C7BPREvS31izAErbC3gI2WQLGnF UqypYVSDHIoPVtOssfFjZT8vfLG jZXJu IC8+VC9lKALjXglyrWHwi4X8sUU 5V52wut7sXCvuwTX9VNUnPzXjmp tvw6gghOv2CYgjHjicNhHy XKTwgH83OPG8pQ02Gx80lVMxpJY da3ohvHq9WuExCEZxEAW3zVpnGY xvp5BoILHlA59djNVmj1F6 ZUEeiKvwgFXnRfNoxFT5cL7rONv tgjxvj2rgxhsxQqj7ka03jCHim1 X0qPL5Z6YemwF7OYSjqULg UglfnSUXqE5zpoxnz7skqtupSfA lALAwNMx0GCg7PATqwYeyEfSfCU 36WSG9KPKkytXjY0RvEJOo vKhjXbG0k7B8Cd2PW5FURljpM4G NTUFSWTwvdGQ+CU81au17A9PzGw rfVro8DWWmJPV8tXN9rX2e CDDvLMpfn5H1eHO9I0PjhgGecx3 qy6xcWKItDOxkC38dgGAvj3W8FR WdwWP1IFBtgVhyLhItcJ31 Oyc+ZBKnkZreg9AxVainz1bpo6n ykAd8AeovYQHmogMtbKzrLCS0v4 TkZo9eQQPgtIG0fCI5tP2i CtOyMuU9NDdqC160SoBhhGGhSlc xW84gI8WleMV+TCCaFuw8ORKctI tiGJ7hG8XqLZXotcfptGAd iAhmNQ4hIFMylpmqITBxbD6uMFE kW0z3OwVeTjI2IPptT3YrLSZgsy jvOe59hK1hIwUmVqW8EHgq Y1CzciH5ECQnuIEiYIynRWH4F62 vt9I1BIDkJLRfBOE7rRU6eT8coF lnbjogbGVmdDsgdmVydGlj HZyqPWgqY342HOBzxDjwYnFtSIe uZyBEYXRlOiAgMDYvMjQvMjAyND wvdGQ+EAFdOPL2mYqoLNXj mDRtXEhmLz9tqXsktOkfDT9yTZN tmzegKKOuyP4wQYMkgNGjgVnoWP 4dJBQyomnxv936BvCeYMR6 DKNexEUwB2OpyZ0gIoGuGQOkMPA iU4DxpFMsBIegO655IGtlKqS5JA ZjevTjD8DjMNGrkFpkDnK3 y3D0Ui6Fa9ZdvqnkR1QiiLZjCxH fQcyiMDe5P7JvTrucxZR+PC90YW FvON01GEe0ECI5xDjpNBbs VTFmZ3KthD7pCiRdKXGzOMXyVjr +PHRhYmxlIHdpZHRoPScxMDAlJy QbgQwiTQ8dNp3xCVSjUDMp uBmlfTAjMaQcs8pyZLBpWFfbTX8 cjFtyC0UhsCJ9JUFnq0r9By08M0 3gC7PreOE+DMAncHB1rOR7 iC9tUvKgZmH2VXueI918TiIyyTQ jLqipo6glt5kwjGp8ZlP2CUQocs JubNgwWSN2m5UlEj65W42u IHdpZHRoPSIxNSUiIHZhbGlnbj0 kjY1gUa5+FLIbnQG7mUE8tL0rWv VxKoJ5PRicB072YrPhtUCq Ycyed3aqk1fddZl3XcQoKCRsfcZ syOilEUO4p3UcRr06B3BaoRnjf6 TzDpj5zr40cWMxe2V5eEU1 A2VaTRWsbpzugLZnvGhvJX8hBWG rgqamTQWefJ0wTGEkX2q4XdJrJf N5KRqaN2SrjvD3OHCmqJUc OMSsjYRAeO9vkwvve2xjxhplOkV gSZLrFVz7ZQn1OSZhiYnaFcJkHB R7BqK8TEE3iOTsnH4nbMmj ighdmB3fXbo+JXF1tAFstSLCEG0 lOjwvdGQ+ANLwPWW6zLxrTXslIQ RtxB8fOBVkP6c6XiHaUyQ0 VNpxW9QqliG3GKWxjDGeVFBwlFP WdG0bntrat7ktyejtAvErJWZfNW g1BGk9OFVlgBnaPzZnKYJ3 IxV0NPA3dONbsJ0tyOzevoemhO0 wOyc+YtercJguBCY7LZk0J8IxGj a9JRCjpUonAX5bqRFuBTjc Kx1fnFiafQxsMW4zDOMdczlvg37 0HiLre5vhPFXoiMAbFKhoCTK1G3 6an4F4TEShYNQeYVL7yGZ8 pG9jzWioqsaegFMurGpymvLcmFv zCXmjJEcjV021OYErtRqmOqEzHE x8N4GoIff6RTKapAviNY4b xKReIDmoSk6yuIsnuUrpYO2qQNI dwvcpt676IiEop9yrLDOplNDnNA oqFOM3Q36xi5E9JXTnOIXq VFP4eUY7eA9rfSuzwarlrWMkqSe yqoPwwNokIRcdVRicJ934AZHbzO avSoVemWf7N6TcDpt6YZGk mMyaSU7ekAHkWYheKg8nrSsbtLh fTO8hHWPzwcijr280KmAnb2xmXM MqdGTpUWqbDHR5C29mv7G7 UCGnPZQrZHQ3pVP1rK8ebCleqam gbGVmdDsgdmVydGljYWwtYWxpZ2 46IHRvcDsnPlBhdGllbnQg NQptPFc8W4NeDcbaeBZ+UZ43QDC yFY01oPJruEDth0pmmNw5HhNuSL FeTSY3zJyeQKjxo8ZsVHGb V27ghDQpg8J1YTRrfLrpeHIqPxW ipTU0qW9wIKvexlrkf3nuhzwfTb rod1huhc01fN22I50jXMvp YAFfTNBcHLHuQBQsuXsdsd2ggF9 wIi8+SAOjiAG0wKX9kV2rOMJaOx R5ADbpQ683OuDkfYXlThzm h3gmo3vvjDr7ElE6YLLigvRzcQc gVKK1h4KjPa67Q22sGGqdOKRaMK KjBLGzZYMvkSunkx1mxP3h Ii8+CXVaiLQ7vSB6oS9nFgAiOhX 8SGfsJ808PeZrfTJeRljiG91kI5 JvdXA+ZQMyUdb9EXHuaNqn XM1nwSEkNOxtQv3mIOB2WmUeFuK vQVfnB3WwUZJwqxgvyarzrGP7WR OiBPCtcF06Wl9rpZtfYDGo pUWBlD5kterws5ygqwndDxOvVZK eZLq0CCa7EIMltGszLnSrVMJ1Kv N8USP0dMWlxF4anFvhichd yI7cU8FtNICkzxucWo58vJ7bSrO oSqI2ABnlPzc+VkFOIEdJRVNFTi rjEpmRQ4pTHAFdBYoxhIV+ JWCzCYC3zWbmNYtrHPAgwB0fVWK dB6e3IsOeFpO9TJftF5MpQCVfik uxGa96pU9tGlPdQvX8ULst F7BhgxH5UBZjeFEhYXmmDCZ7R21 jn8U1XUMgXGHnQAV5hAZ8fK7guP lnbjogbGVmdDsgdmVydGlj SGjsPHroQ132DQAhfUfjHoU1SlJ 3IoQ5OCm4C1FnOvc2GVCnnBpoKR 0bcSXfDQjqNf8ljYlcxDon AS2rXHZzzdxbSMLnfV9lCRTnzHY olMbePK0nFWVebmxvi305NgSaBS B5YFYzjDWzN0ZccG4aGnEw ZBWdERAlT6MkrHWzJQcsM757DUe aBfW3TKKolsJdP2DlRYWjdPjwFe Z9n3N8Rb62VOOWIRNkuceh dGQ+QYGfDSF4fAwyHBhzMNLdwD3 qJWLpY3m9TyIiAyM5UActQ0RrOT LszcirPw48jW1nAhJxBbJ9 SEniI5LdqdH0FSMmjRGdZNncECQ 2T99yr8Z5GIGdOMWvHID3dUU8lZ 1hbGlnbjogbGVmdDsgdmVy aJjxGWekPYotZ582OHIuyNlxTt9 yzOR1R8GbLoa5FGXhlPmxQY6miA EgSXhyEw3eqMlimJxxAD4x MOWnnnoxTCYnnW8rLJCulRWqcLz kPU3qVOFcgwbmk600WzIdROY4QT NtyBLaH8GnzV0wRiYtXRVl CTHhH8QpkZKjGYjlA392FQtxQkU 7KSBszgQfM7EkNFAzgHefFrX0q4 C0Hn9LwJRtGZAaAS56PR41 GC64Z9ZgFazpyFLccAV+PHRhYmx lIHdpZHRoPScxMDAlJyBzdHlsZT 3rTk2fCZRvQGUdnNhedUOx RxIwm2wgXXFwVVsjEP4pvYpuP7S xdIA2BPEdy8w1Gu22C09sA8DsoR A+YTNliTG6pJB4tZ2gUnGf ZrQ2FIotE047XaHmeCBnCvvmd8v qy4dhqIo4JsGeOCQzkgDacExaVF N2j2AoFr44M24jPEqbGUMk RMJmTLJpSYIazYcvyr7nwM7fHl7 +XAHuiGY4aRE7lG6yVaFsQvA1VH roX117ExSlaEAkXefrH46q L9BajPS+UKHcRem9UPFkvVedBL7 zkDMqXRubVv5mWOT3GeXnTnYwCS ozB3TxTRQxcawghccfxIZ7 OWMzLLBrcT07Wg9jmYypNp0gXEI oQXE3KEPaySCdW0YjbV0tOnJqKE FyHMKjI9KkoKRfWZbxV245 IBtoOxM3KIFwsfGpI8JkEZHubLf gLeY4t8M3Qh7AoPwdfACrWE7aZs PxOJv5R0PdPtx0FYGzlPun XG7mjNBqRKmuIz4emRkavDkaJU9 wLYGwcsazl810OeLbr8llYVTstD DbGEwaOLQ5Z30nt5K6MRPw RYEnMYP8jLE7jP2bnMreelcutYU ysBdmewQuoSczNUwzATzvA983MS QxsSqzNsLCPlu2Z3AoTes3 OQUavTuvFO2llWOkTLbvFu2fgAa ecIflTA8iAUOphkqia006ZeHej1 suWXRjgEFiADonQHB0M45i e0E0XKJxSNZcAYV5cYX8jV1rkQd nbjogbGVmdDsgdmVydGljYWwtYW mjH816DLPulYycJn6KLbb5 V2DiVbx4AFAwmWkbQK4meWUaSIs sNm5uoXbsoFojVY4zYKSoqmqmm1 50EoWrg5slXOUswTTkTEgf RRC9X62zg9E6FUVnORDnKWP3qJI 8lQ7rrHsofyvsyDYufCrxdwRekI yyEStvMTvlN421OFArqLpk PlBheWVyOjwvdGQ+NB93ip29G1F sMcwiLdm3NDOqKOA9lDV0gV6jIG QrDLqka8H5iKP8A7DhkeUt wm9ir7cnERRcH (more content not included)... Normal [facility] POCT PT/INRon 11-23-2023 POCT INR 1.5 High .7-1.2 [facility] Comment on above: Performed By: #### 2 [id number] #### [facility] [address] [place] [address] POCT PT 16.5 second(s) High 8.0-15.0 [facility] Comment on above: Performed By: #### 2 [id number] #### [facility] [address] [place] [address] Consent for Treatmenton 11-03 Consent for Treatment [id number] Normal [facility] Medication Refillon 11-19-19 Medication Refill Patient: JOSÉ LUIS FAULKNER Age: 72 years Sex: Male : 1950 Associated Diagnoses: None Author: January Wells Subjective Coumadin refill, 4mg, 96 tabs, 1 refill Health Status Allergies: Allergic Reactions (Selected) No Known Allergies, Allergies (1) Active Severity Reaction No Known Allergies None Documented Current medications: (Selected) Inpatient Medications Ordered Zero Hour: Day of Tx Future Sodium Chloride 0.9% Maintenance (DoT) 250 mL: 250 mL, IV, 20 mL/hr, for 12 hour(s), Stop date 11/23/23 1:59:00 EDT, Routine, Start date 11/22/23 14:00:00 EDT, 12.5 hour(s), Total volume (mL): 250, 101.2 kg, 2.2, m2, Days 8 Zero Hour: Day of Tx ferric carboxymaltose (DoT): 750 mg = 15 mL, Injection, IV Piggyback, Day of Tx, Routine, Start date 11/22/23, 460 mL/hr, Infuse over 15 minute(s) heparin lock flush 100 units/mL (DoT): 500 unit(s) = 5 mL, Soln-IV, IV Push, REGIMEN As Directed PRN Other (see comment) for 12 hour(s), Stop date 11/23/23 1:59:00 EDT, Routine, Start date 11/22/23 14:00:00 EDT, 0 Prescriptions Prescribed Aldactone 25 mg Tab: 25 mg = 1 tab(s), Oral, Daily, # 30 tab(s), Refills(s) 0, Pharmacy: [facility], 172.7, cm, 03/09/23 15:05:00 EDT, Height/Length Dosing, 104.5, kg, 03/09/23 15:05:00 EDT, Weight Dosing Coumadin 4 mg Tab: See Instructions, take 6mg on sunday, take 4m g all other days, # 96 tab(s), Refills(s) 1, Pharmacy: [facility], 172, cm, 10/31/23 14:00:00 EDT, Height/Length Dosing, 101.2, kg, 10/31/23 14:00:00 EDT, Weight Dosing DuoNeb 2.5 mg-0.5 mg/3 mL Soln-Inh: 3 mL, Inhalation, QID, 1 EA, Refill(s) 0, [facility], 172.7, cm, 03/09/23 15:05:00 EDT, Height/Length Dosing, 104.5, kg, 03/09/23 15:05:00 EDT, Weight Dosing alprazolam 0.25 mg Tab: 0.25 mg = 1 tab(s), Oral, TID, PRN anxiety, # 30 tab(s), Refills(s) 2, other reason (Rx) carvedilol 25 mg Tab: 25 mg = 1 tab(s), Oral, BID, # 120 tab(s), Refills(s) 0, Pharmacy: [facility], 172, cm, 07/17/21 14:15:00 EST, Height/Length Dosing, 113, kg, 07/17/21 14:15:00 EST, Weight Dosing cyanocobalamin 1000 mcg/mL Inj: 1,000 mcg = 1 mL, IntraMuscular, qMonth, syringes for B12 injections-3ml, 25 guage 1 inch quantity sufficient for injections., # 10 mL, Refills(s) 1, Pharmacy: [facility], 177, cm, 04/12/23 9:03:00 EST, Height/Length Dosing, 101.6, kg, 11/0... nebulizer machine: nebulizer machine, See Instructions, 1 EA, 0, please provide machine with supplies, Supply torsemide 20 mg Tab: See Instructions, 1 tab(s) Oral Daily and then addtional 1 tab oral daily as needed for Leg swelling or weight gain of 3 pounds, # 60 tab(s), Refills(s) 0, Pharmacy: [facility], 177, cm, 08/27/23 20:45:00 EDT, Height/Length Dosing, 100.6, k... Documented Medications Documented Co-Q10 100 mg oral capsule: 100 mg = 1 cap(s), Oral, Daily, Refills(s) 0 Eliquis 5 mg oral tablet: 5 mg = 1 tab(s), Oral, BID, Refills(s) 0 Humalog: See Instructions, 0-150 = no coverage 151-200 = 2 units 201-250 = 4 units 251-300 = 6 units 301-350 = 8 units 351-400 = 10 units with breakfast and lunch and dinner NO BEDTIME SCALE, Refills(s) 0 Lamictal 200 mg Tab: 200 mg = 1 tab(s), Oral, Daily, Refills(s) 0 Multivitamins and Minerals: 1 tablet, Oral, Daily, Prophylaxis Nitro 0.4 mg Tab: 1 tablet, SubLingual, q5min, PRN Chest pain, Chest pain NovoLIN N FlexPen 100 units/mL subcutaneous suspension: 20 unit(s), SubCutaneous, BID, Refills(s) [address] Tab: 40 mg = 1 tab(s), Oral, Daily, Refills(s) 0 Pro-Air HFA CFC free 90 mcg/inh MDI: 2 puff(s), Inhalation, q4hr Shortness of breath or wheezing, Refill(s) 0 Vitamin D3 1000 intl units oral tablet: 25 mcg = 1 tab(s), Oral, Daily, Refills(s) 0 acetaminophen 325 mg Tab: 650 mg = 2 tab(s), Oral, q6hr, PRN Pain, Refills(s) 0, Pain amiodarone: 200 mg, Oral, Daily, Refills(s) 0 amoxicillin 500 mg Cap: 500 mg = 1 cap(s), Oral, BID, Dr. Ruiz, Refills(s) 0 aripiprazole 5 mg Tab: 10 mg = 2 tab(s), Oral, Daily, Refills(s) 0 aspirin 81 mg Oral EC Tab: 81 mg = 1 tab(s), Oral, Daily, # 30 tab(s), Refills(s) 0, Prophylaxis atorvastatin 80 mg Tab: 80 mg = 1 tab(s), Oral, Bedtime, # 30 tab(s), Refills(s) 0, High cholesterol carbidopa-levodopa 25 mg-100 mg Tab: 1.5 tab(s), Oral, TID, Refill(s) 0 enalapril 10 mg Tab: 10 mg = 1 tab(s), Oral, BID, Refills(s) 0 glimepiride 2 mg Tab: 2 mg = 1 tab(s), Oral, BID, Refills(s) 0 isosorbide mononitrate 60 mg ER Tab: 60 mg = 1 tab(s), Oral, Daily levothyroxine 100 mcg (0.1 mg) Tab: 100 mcg = 1 tab(s), Oral, Daily, Refills(s) 0 levothyroxine 75 mcg (0.075 mg) Tab: 75 mcg = 1 tab(s), Oral, Daily, Refills(s) 0 magnesium oxide 400 mg Tab: 400 mg = 1 tab(s), Oral, Daily, Prophylaxis metformin 1000 mg Tab: See Instructions, 0.5 tab(s) Oral BID, Refills(s) 0 tamsulosin 0.4 mg Cap: 30 EA, TAKE 1 CAPSULE BY MOUTH ONCE DAILY FOR 30 DAYS, Refills(s) 0, Home Medications (33) Active adwoa (more content not included)... Normal [facility] Physician Orderon 11-19-2023 Physician Order [id number]#1.00TIFF [facility] Consent for Treatmenton 11-02 Consent for Treatment [id number]#1.00TIFF [facility] POCT PT/INRon 11-16-2023 POCT INR 1.8 High .7-1.2 [facility] Comment on above: Performed By: #### 2 [id number] #### [facility] Laboratory [address] [place] [address] POCT PT 19.4 second(s) High 8.0-15.0 [facility] Comment on above: Performed By: #### 2 [id number] #### [facility] Laboratory [address] [place] [address] Consent for Treatmenton 11-02 Consent for Treatment [id number]#1.00TIFF [facility] Insurance Correspondenceon 11-01-2023 Insurance Correspondence [id number]#1.00TIFF [facility] Pulmonary Function Studieson 11-01-2023 Pulmonary Function Studies [facility] Comment on above: Result Comment: Elec tronically Signed By: Caterina BROUSSARD, Nicolás Chavez\.br\Date and Time Signed: 11/01/23 23:16 EDT Ambulatory Visit Summaryon 10-31-2023 Ambulatory Visit Summary [facility] Consent for Treatmenton 10-03 Consent for Treatment [id number]#1.00TIFF [facility] Oncology Progress Noteon Oncology Progress Note Normal [facility] Reference Lab Reporton 10-30 Reference Lab Report [id number]#1.00TIFF Normal [facility] Consent for Treatmenton 05-2 Consent for Treatment [id number]#1.00TIFF Normal [facility] Pulmonary Function Testson 0 10-24-2023 Pulmonary Function Tests [id number]#1.00TIFF Normal [facility] ECG 12 Leadon 10-17-2023 ECG revealed atrial pacemaker rhythm, IVCD and nonspecific ST and T changes [facility] Work Phone: Erythropoiet Lvlon 4 Erythropoietin (EPO) Qn 27.1 mIU/mL High 2.6-18.5 [facility] Comment on above: Result Comment: Bacula Systemsel DxI 800 Immunoassay SystemValues obtained with different assay methods or kits cannot be usedinterchangeably. Results cannot be interpreted as absolute evidenceof the presence or absence of malignant disease.Performed at: [facility] [place], [place] [id number] PhD Erick Nielsen Performed By: #### 2 702534, 45753244, 34760783, 037932878, 79307016 ####[facility] [address] [place] [address] Free K+L Lt Chains,Qn,Son Immunoglobulin light chains.kappa.free (S) [Mass/Vol] 51.2 mg/L High 3.3-19.4 [facility] Comment on above: Performed By: #### 2 398991, 67068973, 69942326, 801996982, 87515163 ####[facility] [address] [place] [address] Immunoglobulin light chains.kappa.free/Immu noglobulin light chains.lambda.free (S) [Mass ratio] 1.46 Invalid Interpretation Code 0.26-1.65 [facility] Comment on above: Result Comment: Perf ormed at: [facility] [place], [place] [id number] PhD Erick Nielsen Performed By: #### 2 383335, 57390070, 19780678, 852871683, 53472216 ####[address] [place] [address] Immunoglobulin light chains.lambda.free [Mass/Vol] 35.0 mg/L High 5.7-26.3 [facility] Comment on above: Performed By: #### 2 944749, 16625936, 59849603, 333696921, 89971823 ####[address] [address] MARGUERITE and PE, Serumon 10-17-19 Albumin [Mass/Vol] 3.5 g/dL Invalid Interpretation Code 2.9-4.4 [facility] Comment on above: Performed By: #### 2 136087, 13690726, 66671415, 322425415, 37898348 ####[address] [address] Albumin/Globulin [Mass ratio] 1.0 {ratio} Invalid Interpretation Code 0.7-1.7 [facility] Comment on above: Performed By: #### 2 553940, 35854380, 94457344, 085900994, 56536757 ####[address] [address] Alpha 1 globulin Elph [Mass/Vol] 0.2 g/dL Invalid Interpretation Code 0.0-0.4 [facility] Comment on above: Performed By: #### 2 705325, 05569027, 17705662, 294168489, 66487144 ####[address] [place] [address] Alpha 2 globulin Elph [Mass/Vol] 1.2 g/dL High 0.4-1.0 [facility] Comment on above: Performed By: #### 2 822260, 67961916, 05287041, 134062444, 25656576 ####[address] [place] [address] Beta globulin Elph [Mass/Vol] 1.1 g/dL Invalid Interpretation Code 0.7-1.3 [facility] Comment on above: Performed By: #### 2 397734, 95296540, 01309699, 998076142, 08594207 ####[facility] [address] [place] [address] Gamma globulin Elph [Mass/Vol] 1.1 g/dL Invalid Interpretation Code 0.4-1.8 [facility] Comment on above: Performed By: #### 2 124823, 95400142, 04767192, 660531838, 55512534 ####[facility] [address] [place] [address] Globulin (S) [Mass/Vol] 3.6 g/dL Invalid Interpretation Code 2.2-3.9 [facility] Comment on above: Performed By: #### 2 118541, 72278154, 35175295, 989069716, 93832145 ####[facility] [address] [place] [address] IgA [Mass/Vol] 246 mg/dL Invalid Interpretation Code 61-574 [facility] Comment on above: Performed By: #### 2 676407, 26686620, 11966297, 569288376, 28425544 ####[facility] [address] [place] [address] IgG [Mass/Vol] 1031 mg/dL Invalid Interpretation Code 6031617 [facility] Comment on above: Performed By: #### 2 730727, 06571491, 42905876, 789927411, 84081088 ####[facility] [address] [facility] [place] [address] IgM [Mass/Vol] 102 mg/dL Invalid Interpretation Code 15-143 [facility] Comment on above: Performed By: #### 2 812473, 11520206, 87166548, 736774728, 37601019 ####[facility] [address] [place] [address] Interpretation IEP [Interp] Comment Invalid Interpretation Code [facility] Comment on above: Result Comment: No m onoclonality detected. Performed By: #### 2 259349, 69635630, 64604458, 958142399, 66104757 ####[facility] [address] [place] [address] Laboratory comment Alonso (Report) Comment Invalid Interpretation Code [facility] Comment on above: Result Comment: Prot ein electrophoresis scan will follow via computer, mail, orcourier delivery.Performed at: [employer] [id number] PhD Erick Nielsen Performed By: #### 2 636454, 84430245, 33829934, 534584138, 80150407 ####[address] [place] [address] Protein [Mass/Vol] 7.1 g/dL Invalid Interpretation Code 6.0-8.5 [facility] Comment on above: Performed By: #### 2 574912, 11926315, 97702524, 218084837, 28184950 ####[facility] [address] [place] [address] Protein.monoclonal Elph [Mass/Vol] Not Observed Invalid Interpretation Code Not Observed [facility] Comment on above: Performed By: #### 2 375065, 48908405, 73924744, 211765902, 94486964 ####[facility] [address] [place] [address] Methylmalonic Acidon 024 Methylmalonate [Moles/Vol] 178 nmol/L Invalid Interpretation Code 0-378 [facility] Comment on above: Result Comment: This test was developed and its performance characteristicsdetermined by [employer]. It has not been cleared or approvedby the Food and Drug Administration.Performed at: [address] [id number] MD Timoteo Breen Performed By: #### 2 189048, 56327332, 03370754, 766879787, 92715217 ####[address] [place] [address] Physician Orderon 10-17-2023 Physician Order [id number]#1.00TIFF Normal [facility] CBC w/ Auto Diffon 4 Basophils/100 WBC (Bld) 1.3 % Normal 0.0-2.0 [facility] Comment on above: Performed By: #### 2 089928, 6619201, 8356389, 2485224, 4779637, 8952030, 87281365 ####[address] [address] Basophils/Leukocytes Auto (Bld) [Pure # fraction] 0.1 E9/L Normal 0.0-0.2 [facility] Comment on above: Performed By: #### 2 618326, 7816708, 6279421, 2715555, 3155032, 3168256, 70567798 ####[address] [address] Eosinophils (Bld) [#/Vol] 0.3 E9/L Normal 0.0-0.5 [facility] Comment on above: Performed By: #### 2 112203, 7584047, 6973841, 5057574, 3761255, 7394999, 66186502 ####[address] [address] Eosinophils/100 WBC (Bld) 3.8 % Normal 0.0-8.0 [facility] Comment on above: Performed By: #### 2 658190, 9961730, 8215383, 5184142, 7786175, 1374696, 11645367 ####[address] [address] Erythrocyte distribution width (RBC) [Ratio] 16.5 % High 10.9-14.2 [facility] Comment on above: Performed By: #### 2 354513, 5655058, 8411498, 4550937, 7320296, 0686329, 00263216 ####[facility] [address] [place] [address] Hematocrit (Bld) [Volume fraction] 34.1 % Low 37.7-49.0 [facility] Comment on above: Performed By: #### 2 162452, 7516753, 1621740, 3359303, 3626202, 8857842, 29547857 ####[address] [address] Hemoglobin (Bld) [Mass/Vol] 11.2 g/dL Low 13.5-17.5 [facility] Comment on above: Performed By: #### 2 394022, 9445177, 1524329, 5407157, 5363621, 1148509, 49465111 ####[address] [address] Lymphocytes (Bld) [#/Vol] 1.4 E9/L Normal 1.0-4.0 [facility] Comment on above: Performed By: #### 2 484473, 0062804, 0175072, 1300484, 4498854, 9525023, 43628751 ####[address] [address] Lymphocytes/100 WBC (Bld) 16.6 % Normal 14.0-50.0 [facility] Comment on above: Performed By: #### 2 298331, 5519300, 0894529, 9862467, 3121904, 6068602, 79538883 ####[facility] [address] [place] [address] MCH (RBC) [Entitic mass] 28.6 pg Normal 27.0-34.0 [facility] Comment on above: Performed By: #### 2 288506, 7116874, 0799845, 2839574, 3991468, 6764120, 57292114 ####[address] [address] MCHC (RBC) [Mass/Vol] 32.9 g/dL Normal 31.4-36.0 [facility] Comment on above: Performed By: #### 2 457119, 4558720, 3004570, 9872079, 0021459, 3427140, 65108977 ####[facility] [address] [place] [address] MCV (RBC) [Entitic vol] 86.9 fL Normal 80.0-100.0 [facility] Comment on above: Performed By: #### 2 708385, 8988907, 9633775, 7552690, 0113350, 4739390, 66550356 ####[address] [place] [address] Monocytes (Bld) [#/Vol] 0.5 E9/L Normal 0.2-1.0 [facility] Comment on above: Performed By: #### 2 698529, 0919997, 7516831, 3654249, 8266180, 5440082, 18448357 ####[address] [address] Neutrophils (Bld) [#/Vol] 5.9 E9/L Normal 2.0-7.5 [facility] Comment on above: Performed By: #### 2 797584, 9814420, 7771897, 8405409, 1225689, 0075461, 47806242 ####[address] [address] Neutrophils/100 WBC (Bld) 72.1 % Normal 36.0-75.0 [facility] Comment on above: Performed By: #### 2 409553, 6516175, 4849100, 4901952, 2791745, 5728947, 64679171 ####[address] [place] [address] Platelet mean volume (Bld) [Entitic vol] 7.0 fL Normal 6.4-10.8 [facility] Comment on above: Performed By: #### 2 065367, 8306186, 6475592, 2984441, 6372665, 7619549, 31036470 ####[facility] [address] [place] [address] Platelets (Bld) [#/Vol] 286.0 E9/L Normal 150.0-500. 0 [facility] Comment on above: Performed By: #### 2 904183, 6266415, 4864846, 4963435, 7539555, 3475156, 78212585 ####[facility] [address] [place] [address] RBC (Bld) [#/Vol] 3.9 E12/L Low 4.3-5.9 [facility] Comment on above: Performed By: #### 2 830582, 0110587, 4257549, 6271723, 9903858, 1761126, 89212539 ####[facility] [address] [place] [address] WBC corrected for nucl RBC Auto (Bld) [#/Vol] 8.3 E9/L Normal 4.0-11.0 [facility] Comment on above: Performed By: #### 2 094678, 9155012, 5039592, 7947054, 0980556, 4384914, 08819661 ####[facility] [address] [place] [address] CHEMISTRYOrdered By: SYSTEM SYSTEM on 10-13-2023 Albumin [...] 10-13-2023 Albumin [Mass/Vol] 4.2 g/dL Normal 3.3-5.0 [facility] Comment on above: Performed By: #### 2 628808, 4748318, 4809674, 0381871, 7821210, 3994625, 32998363 ####[facility] [address] [place] [address] Albumin/Globulin (S) [Mass conc ratio] 1.4 Normal 1.1-2.2 [facility] Comment on above: Performed By: #### 2 768930, 2807046, 3694091, 3228161, 6487143, 9546530, 33156523 ####[address] [place] [address] ALP [Catalytic activity/Vol] 80 Int._Unit/L Normal 21-98 [facility] Comment on above: Performed By: #### 2 351865, 5480219, 9602891, 1991187, 1074864, 8078152, 01164911 ####[address] [address] ALT No additional P-5'-P [Catalytic activity/Vol] 16 Int._Unit/L Normal 6-46 [facility] Comment on above: Performed By: #### 2 022501, 2368933, 7871147, 2144754, 8202092, 2104000, 34828609 ####[facility] [address] [place] [address] Anion gap [Moles/Vol] 14 mmol/L Normal 6-16 [facility] Comment on above: Performed By: #### 2 737461, 9710660, 9624849, 5362983, 8605428, 7098554, 15235813 ####[address] [address] AST [Catalytic activity/Vol] 19 Int._Unit/L Normal 5-43 [facility] Comment on above: Performed By: #### 2 888862, 9569880, 5256724, 7691028, 0501285, 1435438, 36205435 ####[facility] [address] [place] [address] Bilirubin [Mass/Vol] 0.4 mg/dL Normal 0.0-1.1 [facility] Comment on above: Performed By: #### 2 171305, 0369360, 6874560, 4592692, 5462132, 1001336, 21514922 ####[facility] [address] [place] [address] Calcium [Mass/Vol] 8.7 mg/dL Low 8.9-11.1 [facility] Comment on above: Performed By: #### 2 576675, 8528947, 2922497, 1298963, 2313239, 9694307, 96572744 ####[facility] [address] [place] [address] Chloride [Moles/Vol] 105 mmol/L Normal 101-111 [facility] Comment on above: Performed By: #### 2 992341, 0803811, 5360716, 5001861, 6002089, 8610761, 66158059 ####[facility] [address] [place] [address] CO2 [Moles/Vol] 29 mmol/L Normal 21-31 [facility] Comment on above: Performed By: #### 2 472838, 0592123, 1319483, 6101544, 1079863, 2994049, 79325042 ####[facility] [address] [place] [address] Creatinine [Mass/Vol] 1.3 mg/dL Normal 0.5-1.3 [facility] Comment on above: Performed By: #### 2 177763, 0143191, 8613744, 7038863, 4528117, 9220719, 01201398 ####[facility] [address] [place] [address] Globulin (S) [Mass/Vol] 3.1 g/dL Normal 1.4-4.0 [facility] Comment on above: Performed By: #### 2 011431, 4138291, 2802414, 8076382, 5949053, 1369988, 11813200 ####[facility] [address] [place] [address] Glucose [Mass/Vol] 204 mg/dL High 55-199 [facility] Comment on above: Performed By: #### 2 227068, 4395091, 8728875, 8173000, 2134043, 7456301, 79128153 ####[facility] [address] [place] [address] Potassium [Moles/Vol] 4.1 mmol/L Normal 3.5-5.3 [facility] Comment on above: Performed By: #### 2 733687, 0866421, 0508906, 7955231, 8328377, 0572644, 73014168 ####[facility] [address] [place] [address] Protein [Mass/Vol] 7.3 g/dL Normal 6.0-7.8 [facility] Comment on above: Performed By: #### 2 261930, 7846592, 5827909, 7318830, 1251508, 8775125, 93124979 ####[facility] [address] [place] [address] Sodium [Moles/Vol] 144 mmol/L Normal 135-145 [facility] Comment on above: Performed By: #### 2 646755, 1396455, 8396687, 0791098, 8899068, 5929842, 83791071 ####[facility] [address] [place] [address] Urea nitrogen [Mass/Vol] 21 mg/dL Normal 5-21 [facility] Comment on above: Performed By: #### 2 091467, 0617645, 0399503, 1663709, 9008475, 5050270, 59588490 ####[facility] [address] [place] [address] Urea nitrogen/Creatinine [Mass ratio] 16 No Units Normal 10-20 [facility] Comment on above: Performed By: #### 2 064082, 3560379, 7073198, 3486226, 4137159, 8119060, 00034679 ####[address] [place] [address] Consent for Treatmenton 10-02 Consent for Treatment [id number]#1.00TIFF Normal [facility] Ferritinon 10-13-2023 Ferritin [Mass/Vol] 35 ng/mL Normal 24-336 Fishkrystle caputo [facility] Comment on above: Performed By: #### 2 219224, 0240980, 1345764, 5532316, 8002817, 2827617, 71303533 ####[facility] [address] [place] [address] HEMATOLOGYOrdered By: SYSTEM SYSTEM on 10-13-2023 Basophils/100 [...] 10-13-2023 Iron [Mass/Vol] 60 microgram/dL Normal 35-153 [facility] Comment on above: Performed By: #### 2 457842, 4150520, 1893150, 3491967, 6442370, 7905039, 41480804 ####[facility] [address] [place] [address] Iron Saturationon 10-13-2023 Iron binding capacity [Mass/Vol] 326 microgram/dL Normal 250-400 [facility] Comment on above: Performed By: #### 2 866925, 6149246, 0919630, 4642854, 7195508, 6151649, 85742316 ####[facility] [address] [place] [address] Iron saturation [Mass fraction] 18 % Low 20-50 [facility] Comment on above: Performed By: #### 2 812819, 5318782, 2171867, 1359347, 9333331, 2734014, 12438351 ####[facility] [address] [place] [address] Retic Counton 10-13-2023 Reticulocytes/100 RBC (Bld) 1.5 % Normal .5-2.2 [facility] Comment on above: Performed By: #### 2 180560, 45044768, 32781294, 054627104, 94524300 ####[facility] [address] [place] [address] Transferrinon 10-13-2023 Transferrin [Mass/Vol] 233 mg/dL Normal 200-370 [facility] Comment on above: Performed By: #### 2 331958, 0467780, 5389962, 5458612, 4336321, 7229548, 13264442 ####[facility] [address] [place] [address] eGFRon 10-13-2023 eGFR 57 mL/min/1.73 m2 Low >=59 [facility] Comment on above: Order Comment: Order added by Discern Expert. Performed By: #### 2 934082, 2668762, 1510261, 8329470, 4253631, 6418264, 48728613 ####[facility] [address] [place] [address] 36on 09-25-2023 36 Left detailed messag e for pharmacy to remove Keisha brambila as prescriber for levothyroxine as this needs to go to his PCP . [facility] 36 Rx sent for 90 days, no refills. PCP should've taken over prescribing this. Can you follow-up with pt's pharmacy to send future refill requests to PCP? Thx Normal [facility] UroVysion Fish and Urine Cyt o ([facility])on 09-25-2023 UVFISH & UC Diagnosis Info Invalid Interpretation Code [facility] Comment on above: Result Comment: A:Ur [...] correlated with cytology and cystoscopy results.* CPT 93918, 74560.Microscopic Notes -Microscopic Notes -Abnormal cells 9p21 deletions:Abnormal cells aneploid events:Total cells analyzed: 100Hematuria:Gross DescriptionSite ID:A color Yellow fixative Alcohol Received 100 mls of clear yellow fluid with the patient's name and, Urine on the vial.Electronically signed by : on: 07/23/2023 23:12:06 Performed By: #### 1 [id number] ####[facility] [address] [place] [address] CHEMISTRYOrdered By: SYSTEM SYSTEM on 09-12-2023 Albumin [...] 09-12-2023 Albumin [Mass/Vol] 4.2 g/dL Normal 3.3-5.0 [facility] Comment on above: Performed By: #### 2 465262, 26539915 ####[facility] [address] [place] [address] Albumin/Globulin (S) [Mass conc ratio] 1.4 Normal 1.1-2.2 [facility] Comment on above: Performed By: #### 2 269134, 91223217 ####[facility] [address] [place] [address] ALP [Catalytic activity/Vol] 73 Int._Unit/L Normal 21-98 [facility] Comment on above: Performed By: #### 2 244164, 56454557 ####[facility] [address] [place] [address] ALT No additional P-5'-P [Catalytic activity/Vol] 12 Int._Unit/L Normal 6-46 [facility] Comment on above: Performed By: #### 2 000533, 61327596 ####[facility] [address] [place] [address] Anion gap [Moles/Vol] 14 mmol/L Normal 6-16 [facility] Comment on above: Performed By: #### 2 529376, 50778617 ####[facility] [address] [place] [address] AST [Catalytic activity/Vol] 11 Int._Unit/L Normal 5-43 [facility] Comment on above: Performed By: #### 2 144434, 42414495 ####[facility] [address] [place] [address] Bilirubin [Mass/Vol] 0.4 mg/dL Normal 0.0-1.1 [facility] Comment on above: Performed By: #### 2 747122, 71409583 ####[address] [address] Calcium [Mass/Vol] 9.2 mg/dL Normal 8.9-11.1 [facility] Comment on above: Performed By: #### 2 944278, 23457745 ####[address] [address] Chloride [Moles/Vol] 103 mmol/L Normal 101-111 [facility] Comment on above: Performed By: #### 2 240917, 86942148 ####[facility] [address] [place] [address] CO2 [Moles/Vol] 27 mmol/L Normal 21-31 [facility] Comment on above: Performed By: #### 2 539570, 30261120 ####[facility] [address] [place] [address] Creatinine [Mass/Vol] 1.5 mg/dL High 0.5-1.3 [facility] Comment on above: Performed By: #### 2 776094, 12810911 ####[facility] [address] [place] [address] Globulin (S) [Mass/Vol] 3.0 g/dL Normal 1.4-4.0 [facility] Comment on above: Performed By: #### 2 158308, 98077968 ####[facility] [address] [place] [address] Glucose [Mass/Vol] 142 mg/dL Normal 55-199 [facility] Comment on above: Performed By: #### 2 725784, 00019932 ####[facility] [address] [place] [address] Potassium [Moles/Vol] 4.2 mmol/L Normal 3.5-5.3 [facility] Comment on above: Performed By: #### 2 754492, 92817686 ####[facility] [address] [place] [address] Protein [Mass/Vol] 7.2 g/dL Normal 6.0-7.8 [facility] Comment on above: Performed By: #### 2 291422, [id number] ####[facility] [address] [place] [address] Sodium [Moles/Vol] 140 mmol/L Normal 135-145 [facility] Comment on above: Performed By: #### 2 546601, 39601819 ####[facility] [address] [place] [address] Urea nitrogen [Mass/Vol] 21 mg/dL Normal 5-21 [facility] Comment on above: Performed By: #### 2 311607, 20160669 ####[facility] [address] [place] [address] Urea nitrogen/Creatinine [Mass ratio] 14 No Units Normal 10-20 [facility] Comment on above: Performed By: #### 2 194311, 07889355 ####[facility] [address] [place] [address] Consent for Treatmenton 09-02 Consent for Treatment [id number]#1.00TIFF Normal [facility] Physician Orderon 09-12-2023 Physician Order [id number]#1.00TIFF Normal [facility] eGFRon 09-12-2023 eGFR 48 mL/min/1.73 m2 Low >=59 [facility] Comment on above: Order Comment: Order added by Discern Expert. Performed By: #### 2 762129, [id number] ####[facility] [address] [place] [address] Lab Reportson 09-07-2023 Lab Reports [id number]#1.00TIFF Normal [facility] Reference Lab Reporton 09-06 Reference Lab Report [id number]#1.00TIFF Normal [facility] Capillary blood glucose hakan urement by glucometer (mass/volume)Ordered By: Bill Mcgee on 09-06-2023 Glucose [Mass/Vol] 126 mg/dL [facility] Comment on above: Random Glucose Refer ence Range is dependent on time and content of last meal. Glucose of more than 200 mg/dL in a nonstressed, ambulatory subject supports the diagnosis of Diabetes Mellitus. Result Comment: [place] om Glucose Reference Range is dependent on time and content of last meal. Glucose of more than 200 mg/dL in a nonstressed, ambulatory subject supports the diagnosis of Diabetes Mellitus. Performed By: #### G LULS #### Point of Care testing , Glucose Poct Glucometerson 0 09-06-2023 Commemt1 Glu2: Cleaned Meter Normal [facility] Comment on above: Result Comment: PERF ORMED BY: [facility] [address] [place] [address] PATHOLOGIST COLD MILL INSPECTOR ANUSHA MANCUSO M.D. Performed By: #### G LULS #### Point of Care testing , Victor M 09-06-2023 L Specimen: Received: 09/06/23 Status: TAY Martínez Num: [id number] Spec Type: Surgical Subm Dr: Bill Mcgee MD Tissues: A Colon Biopsy (CECAL POLYP) B Colon Biopsy (SIGMOID POLYP) Procedures: HE/4, Gross/Micro L4/2 Age/ Patient Sex Location Account Attending Physician José Luis Faulkner 72/M [id number] Bill Mcgee MD SPEC NUM: RECD: 09/06/23 STATUS: TAY MARTÍNEZ NUM: [id number] BASIA: 09/06/23 DR: Bill Mcgee MD ENTERED: 09/06/[address] [facility] [address]: SPEC TYPE: Surgical DEPT: S ORDERED: HE/4, Gross/Micro L4/2 ORDERED: HE/4, Gross/Micro L4/2 Pathological Diagnosis A. Polyp, cecum, [...] mm. All in 1 cassette. CPT Codes 61479y9 Specimen: Received: 09/06/23 Status: TAY Aníbal Num: [id number] Spec Type: Surgical Subm Dr: Bill Mcgee MD Tissues: A Colon Biopsy (CECAL POLYP) B Colon Biopsy (SIGMOID POLYP) Procedures: HE/4, Gross/Micro L4/2 Patient: José Luis Faulkner [id number] (Continued) Signed (signature on file) Quirino Madrigal MD 09/07/23 1351 Normal [facility] No Panel InformationOrdered By: Bill Mcgee on 09-06-2023 Bedside Glucose Comment Glu2: cleaned meter [facility] General Message Officeon General Message Office Normal [facility] BMPon 08-29-2023 Anion gap [Moles/Vol] 10 mmol/L Normal 6-16 [facility] Comment on above: Performed By: #### 2 842263, [id number] ####[facility] [address] [place] [address] Calcium [Mass/Vol] 8.1 mg/dL Low 8.9-11.1 [facility] Comment on above: Performed By: #### 2 590696, 04300717 ####[facility] [address] [place] [address] Chloride [Moles/Vol] 109 mmol/L Normal 101-111 [facility] Comment on above: Performed By: #### 2 840659, 51642608 ####[facility] [address] [place] [address] CO2 [Moles/Vol] 24 mmol/L Normal 21-31 [facility] Comment on above: Performed By: #### 2 970239, 71099463 ####[facility] [address] [place] [address] Creatinine [Mass/Vol] 1.4 mg/dL High 0.5-1.3 [facility] Comment on above: Performed By: #### 2 607550, 96732827 ####[facility] [address] [place] [address] Glucose [Mass/Vol] 118 mg/dL Normal 55-199 [facility] Comment on above: Performed By: #### 2 739512, 86658307 ####[facility] [address] [place] [address] Potassium [Moles/Vol] 4.5 mmol/L Normal 3.5-5.3 [facility] Comment on above: Performed By: #### 2 942527, 17566269 ####[facility] [address] [place] [address] Sodium [Moles/Vol] 138 mmol/L Normal 135-145 [facility] Comment on above: Performed By: #### 2 415877, 58936633 ####[facility] [address] [place] [address] Urea nitrogen [Mass/Vol] 26 mg/dL High 5-21 [facility] Comment on above: Performed By: #### 2 636307, 28893478 ####[facility] [address] [place] [address] Urea nitrogen/Creatinine [Mass ratio] 19 No Units Normal 10-20 [facility] Comment on above: Performed By: #### 2 091483, 08725053 ####[facility] [address] [place] [address] CHEMISTRYOrdered By: Yvon LI User on 08-29-2023 Glucose [Mass/Vol] 205 mg/dL High 55 - 99 mg/dL [facility] P[facility] Subsection Comment on above: Result Comment: Kennedy espitia RN/ POC Device SN [id number] 1 Invalid Interpretation Code [facility] POC Subsection POC User ID [id number] 1 Invalid Interpretation Code [facility] POC Subsection POC Username DAWN LANDA Invalid Interpretation Code [facility] POC Subsection Glucose [Mass/Vol] 109 mg/dL High 55 - 99 mg/dL [facility] POC Subsection Comment on above: Result Comment: Repe at Test POC Device SN [id number] 1 Invalid Interpretation Code [facility] POC Subsection POC User ID [id number] 1 Invalid Interpretation Code [facility] POC Subsection POC Username DAWN LANDA JUSTIN Invalid Interpretation Code [facility] POC Subsection CHEMISTRYOrdered By: SYSTEM SYSTEM on [...] 08-03 Glucose [Mass/Vol] 205 mg/dL High 55-99 [facility] Comment on above: Result Comment: Kennedy espitia RN/ Performed By: #### 2 [id number] ####Alex [facility] [address] [place] [address] Glucose [Mass/Vol] 109 mg/dL High 55-99 [facility] Comment on above: Result Comment: Repe at Test Performed By: #### 2 [id number] ####[facility] [address] [place] [address] Discharge Instructionson Discharge Instructions [id number]#1.00TIFF [facility] Discharge Note-Nursingon Discharge Note-Nursing Normal [facility] GetWell Education Videoon GetWell Education Video What Is Atrial Fibrillation? Yes Patient Normal [facility] SpontaneouslyWell Education Video Yes Patient Caring for Your Urinary Catheter Normal [facility] GetWell Education Video Care in the Hospital: Preventing a Urinary Catheter Infection Normal [facility] SpontaneouslyWell Education Video Yes Patient Atrial Fibrillation: Managing Your Symptoms Normal [facility] SpontaneouslyWell Education Video Yes Patient Atrial Fibrillation: Living Well Normal [facility] SpontaneouslyWell Education Video Yes Patient Atrial Fibrillation: Feeling More in Control Normal [facility] SpontaneouslyWell Education Video Yes Patient Avoiding Infections in the Hospital Normal [facility] Inpatient Clinical Summaryon 08-29-2023 Inpatient Clinical Summary [facility] Inpatient Patient Summaryon 08-29-2023 Inpatient Patient Summary [facility] Insurance Correspondence Off iceon 08-29-2023 Insurance Correspondence Office [id number]#1.00TIFF [facility] Interdisciplinary Note - Edwardo e Manageron 08-29-2023 Interdisciplinary Note - Manager Of Software Development [facility] Comment on above: Result Comment: Elec tronically Signed By: Flaco MCCLELLAND, Estelita\.ricardo\Date and Time Signed: 08/29/23 10:35 EDT Message from Medicareon 08-03 Message from Medicare [id number]#1.00TIFF [facility] Monitor Recordon 08-29-2023 Monitor Record [id number]#1.00TIFF [facility] Progress Note-Physicianon Progress Note-Physician [facility] Comment on above: Result Comment: Elec tronically Signed By: JOSE BROUSSARD, Olaf\.br\Date and Time Signed: 08/29/23 09:58 EDT eGFRon 08-29-2023 eGFR 53 mL/min/1.73 m2 Low >=59 [facility] Comment on above: Order Comment: Order added by Discern Expert. Performed By: #### 2 333115, 07783032 ####[facility] [address] [place] [address] BMPon 08-28-2023 Anion gap [Moles/Vol] 15 mmol/L Normal 6-16 [facility] Comment on above: Performed By: #### 1 4777662, 1174530, 86987775, 262469321 ####[facility] [address] [place] [address] Calcium [Mass/Vol] 8.3 mg/dL Low 8.9-11.1 [facility] Comment on above: Performed By: #### 1 2344732, 9295863, 20383926, 052933609 ####[facility] [address] [place] [address] Chloride [Moles/Vol] 107 mmol/L Normal 101-111 [facility] Comment on above: Performed By: #### 1 9996846, 2878244, 58237510, 554871505 ####[facility] [address] [place] [address] CO2 [Moles/Vol] 23 mmol/L Normal 21-31 [facility] Comment on above: Performed By: #### 1 9991805, 0306638, 98255315, 994665667 ####[facility] [address] [place] [address] Creatinine [Mass/Vol] 2.1 mg/dL High 0.5-1.3 [facility] Comment on above: Performed By: #### 1 7303958, 9370023, 61551085, 273591215 ####[facility] [address] [place] [address] Glucose [Mass/Vol] 84 mg/dL Normal 55-199 [facility] Comment on above: Performed By: #### 1 3862324, 0246755, 85024248, 836485739 ####[facility] [address] [facility] [place] [address] Potassium [Moles/Vol] 4.6 mmol/L Normal 3.5-5.3 [facility] Comment on above: Performed By: #### 1 6645312, 9976871, 14301559, 236676413 ####[facility] [address] [place] [address] Sodium [Moles/Vol] 140 mmol/L Normal 135-145 [facility] Comment on above: Performed By: #### 1 1515020, 7561274, 80921498, 632295783 ####[facility] [address] [place] [address] Urea nitrogen [Mass/Vol] 51 mg/dL High 5-21 [facility] Comment on above: Performed By: #### 1 6413100, 1497642, 57746609, 600153716 ####[facility] [address] [place] [address] Urea nitrogen/Creatinine [Mass ratio] 24 No Units High 10-20 [facility] Comment on above: Performed By: #### 1 0746909, 7287013, 00663400, 983425991 ####[facility] [address] [place] [address] CHEMISTRYOrdered By: Lab ROP User on 08-28-2023 Glucose [Mass/Vol] 220 mg/dL High 55 - 99 mg/dL [facility] POC Subsection Comment on above: Result Comment: Kennedy espitia RN/ POC Device SN [id number] 1 Invalid Interpretation Code [facility] POC Subsection POC User ID [id number] 1 Invalid Interpretation Code [facility] POC Subsection POC Username KIAN BROWN Invalid Interpretation Code [facility] POC Subsection CHEMISTRYOrdered By: SYSTEM SYSTEM on [...] Sensitivity Troponin I Instructions For Use, [employer], January 2018) Urea nitrogen [Mass/Vol] 51 mg/dL [...] Sensitivity Troponin I Instructions For Use, [employer], January 2018) CHEMISTRYOrdered By: Cris Luis on 08-28-2023 HbA1c (Bld) [Mass fraction] 8.9 % High <=5.9% [facility] ChemAutoSS Capillary Glucose POCon 08-03 Glucose [Mass/Vol] 220 mg/dL High 55-99 [facility] Comment on above: Result Comment: Kennedy espitia RN/ Performed By: #### 2 [id number] ####[facility] [address] [place] [address] Glucose [Mass/Vol] 185 mg/dL High 55-99 [facility] Comment on above: Result Comment: Kennedy espitia RN/ Performed By: #### 2 93518066 ####[facility] [address] [place] [address] Glucose [Mass/Vol] 137 mg/dL High 55-99 [facility] Comment on above: Result Comment: Kennedy SULLIVAN Performed By: #### 2 18971910 ####[facility] [address] [place] [address] Glucose [Mass/Vol] 78 mg/dL Normal 55-99 [facility] Comment on above: Result Comment: Kennedy SULLIVAN Performed By: #### 2 47669305 ####[facility] [address] [place] [address] ED Clinical Summaryon 2023 ED Clinical Summary Normal [facility] ED Patient Education Noteon 08-28-2023 ED Patient Education Note Normal [facility] ED Patient Summaryon 024 ED Patient Summary Normal [facility] CwrA8bjn 08-28-2023 HbA1c (Bld) [Mass fraction] 8.9 % High <=5.9 [facility] Comment on above: Performed By: #### 1 4428368, 5828883, 87545356, 388029094 ####[facility] [address] [place] [address] Insurance Correspondence Off iceon 08-28-2023 Insurance Correspondence Office [id number]#1.00TIFF Normal [facility] Interdisciplinary Note - Edwardo e Manageron 08-28-2023 Interdisciplinary Note - Manager Of Software Development Normal [facility] Comment on above: Result Comment: Elec tronically Signed By: Flaco MCCLELLAND, Estelita\.br\Date and Time Signed: 08/28/23 10:51 EDT Interdisciplinary Note - PTo n 08-28-2023 Interdisciplinary Note - PT Normal [facility] Monitor Recordon 08-28-2023 Monitor Record [id number]#1.00TIFF Normal [facility] Monitor Record [id number]#1.00TIFF Normal [facility] Progress Note-Nurseon 2023 Progress Note-Nurse Normal [facility] Progress Note-Physicianon Progress Note-Physician Normal [facility] Comment on above: Result Comment: Elec tronically Signed By: JOSE BROUSSARD, Diazfo\.br\Date and Time Signed: 08/28/23 10:05 EDT Troponin 6 Hr.on 08-28-2023 Troponin 17.30 pg/mL Normal 15.90-38.4 0 [facility] Comment on above: Result Comment: The 95% CI (Confidence Interval) PPV (Positive Predictive Value) for myocardial infarction in females is 38 pg/mL, in males 51 pg/mL. The results should be used in conjunction with clinical conditions of myocardial infarction.(Access High Sensitivity Troponin I Instructions For Use, [employer], January 2018) Performed By: #### 1 [id number] ####[facility] [address] [place] [address] Troponin 9 Hr.on 08-28-2023 Troponin 18.30 pg/mL Normal 15.90-38.4 0 [facility] Comment on above: Result Comment: The 95% CI (Confidence Interval) PPV (Positive Predictive Value) for myocardial infarction in females is 38 pg/mL, in males 51 pg/mL. The results should be used in conjunction with clinical conditions of myocardial infarction.([employer] High Sensitivity Troponin I Instructions For Use, [employer], January 2018) Performed By: #### 1 9200917, 5092893, 08259118, [id number] ####[facility] [address] [place] [address] URINALYSISOrdered By: SYSTEM SYSTEM on 08-28-2023 Color (U) Light-Yellow 1 (08/28/23 5:34 AM) Normal Yellow [facility] UA Auto SS Comment on above: Interpretive Data: M icroscopic readings are only performed on those samples that meet specific criteria set forth by [facility] Laboratory. Glucose (U) [Mass/Vol] 4 mg/dL Invalid Interpretation Code Negativemg /dL [facility] UA Auto SS Ketones Ql (U) Negative Normal Negativemg /dL [facility] UA Auto SS UA Blood Negative Normal Negativemg /dL FT UA Auto SS UA Clarity Clear (08/28/23 5:34 AM) Normal Clear FT UA Auto SS UA Leuk Est Negative Normal NegativeLe u/uL FT UA Auto SS UA Nitrite Negative Normal Negativemg /dL [facility] UA Auto SS UA pH 5.0 *NA* (08/28/23 5:34 AM) Invalid Interpretation Code 5.0 - 9.0 [facility] UA Auto SS UA Protein Negative Normal Negativemg /dL [facility] UA Auto SS UA Spec Grav 1.017 *NA* (08/28/23 5:34 AM) Invalid Interpretation Code 1.005 - 1.030 [facility] UA Auto SS UA Urobilinogen Negative Normal Negativemg /dL [facility] UA Auto SS Urobilinogen (U) [Mass/Vol] Negative Normal Negativemg /dL [facility] UA Auto SS URINALYSISOrdered By: Lynn Gonzales on 08-28-2023 UA Spec Desc Catheter (08/28/23 5:34 AM) Normal [facility] UA Auto SS US Renalon 08-28-2023 US Renal Normal [facility] XR Chest Single Viewon 08-27 XR Chest Single View Normal Fish [facility] eGFRon 08-28-2023 eGFR 32 mL/min/1.73 m2 Low >=59 [facility] Comment on above: Order Comment: Order added by Discern Expert. Performed By: #### 1 8304128, 1626776, 59432336, 912181927 ####[facility] [address] [place] [address] BMPon 08-27-2023 Anion gap [Moles/Vol] 18 mmol/L High 6-16 [facility] Comment on above: Performed By: #### 2 636541, 5478172, 57751833, 84542981, 65749937, 8529996, 01622241 ####[facility] [address] [place] [address] Calcium [Mass/Vol] 8.5 mg/dL Low 8.9-11.1 [facility] Comment on above: Performed By: #### 2 817302, 0782465, 21325047, 54363982, 95276944, 4407847, 76073690 ####[facility] [address] [place] [address] Chloride [Moles/Vol] 103 mmol/L Normal 101-111 [facility] Comment on above: Performed By: #### 2 635078, 7557068, 19505200, 17759581, 24986682, 4966637, 59288361 ####[facility] [address] [place] [address] CO2 [Moles/Vol] 21 mmol/L Normal 21-31 [facility] Comment on above: Performed By: #### 2 940154, 6058045, 95986398, 66690163, 52959794, 5340061, 30309940 ####[facility] [address] [place] [address] Creatinine [Mass/Vol] 2.5 mg/dL High 0.5-1.3 [facility] Comment on above: Performed By: #### 2 997339, 8740200, 79573942, 72294510, 90463768, 3607925, 18204608 ####[facility] [address] [place] [address] Glucose [Mass/Vol] 182 mg/dL Normal 55-199 [facility] Comment on above: Performed By: #### 2 524823, 6995153, 44266449, 62211408, 95869189, 4980588, 99834980 ####[facility] [address] [place] [address] Potassium [Moles/Vol] 4.9 mmol/L Normal 3.5-5.3 [facility] Comment on above: Performed By: #### 2 958737, 6867399, 58054970, 31351950, 28778384, 9580730, 15358870 ####[facility] [address] [place] [address] Sodium [Moles/Vol] 137 mmol/L Normal 135-145 [facility] Comment on above: Performed By: #### 2 911609, 8718470, 40588833, 55500917, 99364177, 7629794, 05658699 ####[facility] [address] [place] [address] Urea nitrogen [Mass/Vol] 55 mg/dL High 5-21 [facility] Comment on above: Performed By: #### 2 657736, 8592053, 55905980, 19948630, 26431128, 2718775, 88749798 ####[facility] [address] [place] [address] Urea nitrogen/Creatinine [Mass ratio] 22 No Units High 10-20 [facility] Comment on above: Performed By: #### 2 179302, 6372105, 18630464, 00132858, 91894926, 0887669, 21498309 ####[facility] [address] [place] [address] BNPon 08-27-2023 Natriuretic peptide B (Bld) [Mass/Vol] 79 pg/mL Normal 5-80 [facility] Comment on above: Performed By: #### 2 784237, 6351175, 98101649, 77416509, 93001395, 4873689, 31670456 ####[facility] [address] [place] [address] CBC w/ Auto Diffon 4 Basophils/100 WBC (Bld) 1.4 % Normal 0.0-2.0 [facility] Comment on above: Performed By: #### 2 204835, 7961377, 00164654, 77689552, 45849086, 5337169, 77622516 ####[facility] [address] [place] [address] Basophils/Leukocytes Auto (Bld) [Pure # fraction] 0.1 E9/L Normal 0.0-0.2 [facility] Comment on above: Performed By: #### 2 068310, 8497535, 70198311, 29088033, 96902546, 7031168, 14537963 ####[address] [place] [address] Eosinophils (Bld) [#/Vol] 0.3 E9/L Normal 0.0-0.5 [facility] Comment on above: Performed By: #### 2 344901, 2763823, 33359604, 76396167, 81606963, 4168015, 04435425 ####[address] [place] [address] Eosinophils/100 WBC (Bld) 3.6 % Normal 0.0-8.0 [facility] Comment on above: Performed By: #### 2 114868, 3591741, 67007695, 08373277, 42785074, 5625065, 90183334 ####[address] [place] [address] Erythrocyte distribution width (RBC) [Ratio] 16.5 % High 10.9-14.2 [facility] Comment on above: Performed By: #### 2 389272, 8946585, 39018678, 41324626, 29571515, 1143759, 45070363 ####[address] [place] [address] Hematocrit (Bld) [Volume fraction] 33.3 % Low 37.7-49.0 [facility] Comment on above: Performed By: #### 2 961583, 2960762, 40745905, 61449424, 43562446, 2513256, 01524684 ####[address] [place] [address] Hemoglobin (Bld) [Mass/Vol] 10.9 g/dL Low 13.5-17.5 [facility] Comment on above: Performed By: #### 2 608567, 1553800, 63488227, 33849795, 88063870, 8694438, 95790856 ####[facility] [address] [place] [address] Lymphocytes (Bld) [#/Vol] 1.9 E9/L Normal 1.0-4.0 [facility] Comment on above: Performed By: #### 2 114190, 8548278, 68213908, 53942216, 46474235, 9140542, 97226395 ####[address] [place] [address] Lymphocytes/100 WBC (Bld) 23.6 % Normal 14.0-50.0 [facility] Comment on above: Performed By: #### 2 517568, 4953214, 87533177, 15567158, 93715276, 5038616, 68419096 ####[address] [address] MCH (RBC) [Entitic mass] 28.2 pg Normal 27.0-34.0 [facility] Comment on above: Performed By: #### 2 333170, 6275080, 83627189, 18971175, 98819387, 1002265, 01291594 ####[address] [address] MCHC (RBC) [Mass/Vol] 32.6 g/dL Normal 31.4-36.0 [facility] Comment on above: Performed By: #### 2 553362, 4870942, 59657472, 78663279, 95233140, 0225154, 64097806 ####[address] [address] MCV (RBC) [Entitic vol] 86.4 fL Normal 80.0-100.0 [facility] Comment on above: Performed By: #### 2 297343, 7904685, 05631364, 23593543, 99221549, 7821524, 63841007 ####[facility] [address] [place] [address] Monocytes (Bld) [#/Vol] 0.6 E9/L Normal 0.2-1.0 [facility] Comment on above: Performed By: #### 2 451538, 9102340, 64480493, 45367243, 23998461, 6344397, 31827291 ####[address] [place] [address] Neutrophils (Bld) [#/Vol] 5.2 E9/L Normal 2.0-7.5 [facility] Comment on above: Performed By: #### 2 739062, 2771902, 16315404, 97964585, 80532365, 1233518, 70217323 ####[address] [address] Neutrophils/100 WBC (Bld) 63.7 % Normal 36.0-75.0 [facility] Comment on above: Performed By: #### 2 511041, 3205600, 28768315, 61546563, 25908905, 0367782, 07185079 ####[address] [place] [address] Platelet 274.0 E9/L Normal 150.0-500. 0 [facility] Comment on above: Performed By: #### 2 559665, 2774988, 53147327, 18156541, 91183307, 0061338, 57708501 ####[address] [place] [address] Platelet mean volume (Bld) [Entitic vol] 7.1 fL Normal 6.4-10.8 [facility] Comment on above: Performed By: #### 2 713680, 2189565, 59265157, 02145860, 69459387, 6285634, 11113900 ####[facility] [address] [place] [address] RBC (Bld) [#/Vol] 3.9 E12/L Low 4.3-5.9 [facility] Comment on above: Performed By: #### 2 286099, 3512307, 56142584, 08037348, 14861179, 6881941, 48159473 ####[facility] [address] [place] [address] WBC corrected for nucl RBC Auto (Bld) [#/Vol] 8.1 E9/L Normal 4.0-11.0 [facility] Comment on above: Performed By: #### 2 379593, 3632765, 69780752, 97986055, 30525825, 0352306, 33023806 ####[facility] [address] [place] [address] CHEMISTRYOrdered By: SYSTEM SYSTEM on 08-27-2023 Troponin [...] Instructions For Use, Milagro Wander, January 2018) Anion gap [Moles/Vol] 18 mmol/L [...] 79 pg/mL Normal 5 - 80 pg/mL [facility] HemeAuburnSS COAGULATIONOrdered By: Jerrell Croey on 08-27-2023 aPTT Coag (PPP) [Time] 39.2 s High 25.1 - 36.5 second(s) [facility] Comment on above: Interpretive Data: [...] the same coagulation reagent and instrumentation as [facility]. Currently there are no coagulation studies available worldwide for children to 14 days, and no normal ranges. Heparin therapeutic range (represented by Anti-Factor Xa activity of 0.2 - 0.4 U/mL) corresponds to PTT of 56.6 - 109.0 sec. INR Coag (PPP) [Relative time] 1.38 {INR} Invalid Interpretation Code [facility] Comment on above: Interpretive Data: I NR results are specifically intended to assess patients stabilized on long-term Anticoagulation therapy suggested INR s Less Intensive Anticoagulation 2.0 3.0 Conventional Range 3.0 4.5 PT Coag (PPP) [Time] 15.5 s High 9.4 - 1 2.5 second(s) [facility] Comment on above: Interpretive Data: 1 5 days - 4 weeks 1 - 5 months 6 -11 months 1-5 years 6-10 years 11 -17 years Mean: 11.2 (9.5-12.6) Mean: 11.0 (9.7-12.8) Mean: 11.0 (9.8-13.0) Mean: 11.3 (9.9-13.4) Mean: 11.7 (10.0-14.6) Mean: 11.8 (10.0 - 14.1) Pediatric Reference ranges were obtained from a study by bob Cortés al. prepared from 1437 samples obtained at 7 different centers using the same coagulation reagent and instrumentation as [facility]. Currently there are no coagulation studies available worldwide for children to 14 days, and no normal ranges. Consent for Treatmenton 08-03 Consent for Treatment [id number]#1.00TIFF Normal [facility] ED Note-Physicianon 08-27-19 ED Note-Physician Normal [facility] Comment on above: Result Comment: Elec tronically Signed By: Srinivasa Courtney DObr\Date and Time Signed: 08/27/23 23:01 EDT HEMATOLOGYOrdered By: SYSTEM SYSTEM on 08-27-2023 Basophils/100 [...] 4 Influenzae A Ag Negative Normal Negative [facility] Comment on above: Performed By: #### 1 6744090, [id number] ####[facility] [address] [place] [address] Influenzae B Ag Negative Normal Negative [facility] Comment on above: Result Comment: Test sensitivity and specificity vary for age group, specimen type, antigen types, and prevalence of disease. Test results must be evaluated in conjunction with other clinical data available to the physician. Individuals who received nasally administered Influenza A vaccine may have positive test results up to 3 days after vaccination. Performed By: #### 1 8250528, [id number] ####[facility] [address] [place] [address] MICRO OTHER TESTSOrdered By: Jerrell Corey on 08-27-2023 Influenzae A Ag Negative (08/27/23 9:02 PM) Normal Negative [facility] Influenzae B Ag Negative 2 (08/27/23 9:02 PM) Normal Negative [facility] Comment on above: Interpretive [...] NEG Ctl Pass (08/27/23 9:02 PM) Normal [facility] Rapid COV Int POS Ctl Pass (08/27/23 9:02 PM) Normal [facility] SARS-CoV+SARS-CoV-2 (COVID-19) Ag IA.rapid Ql (Resp) Not Detected 12 (08/27/23 9:02 PM) Normal Not Detected [facility] Comment on above: Interpretive Data: T he Xcerion Veritor System for Rapid Detection of SARS-CoV-2 [...] in patient care settings operating under a [place] Certificate of Waiver, Certificate of Compliance, or [...] 08-27-2023 Magnesium [Mass/Vol] 2.3 mg/dL Normal 1.3-2.4 [facility] Comment on above: Performed By: #### 2 186515, 9575057, 03537139, 57575587, 49766205, 6212043, 66727879 ####[facility] [address] [place] [address] PT & PTTon 08-27-2023 aPTT Coag (PPP) [Time] 39.2 second(s) High 25.1-36.5 [facility] Comment on above: Result Comment: Para [...] the same coagulation reagent and instrumentation as [facility]. Currently there are no coagulation studies available worldwide for children to 14 days, and no normal ranges. Heparin therapeutic range (represented by Anti-Factor Xa activity of 0.2 - 0.4 U/mL) corresponds to PTT of 56.6 - 109.0 sec. Performed By: #### 2 511813, 3593815, 34651681, 85976908, 33052799, 9061152, 46486061 ####[facility] [address] [place] [address] INR Coag (PPP) [Relative time] 1.38 {INR} Invalid Interpretation Code [facility] Comment on above: Result Comment: INR results are specifically intended to assess patients stabilized on long-term Anticoagulation therapy suggested INR?s ?Less Intensive Anticoagulation? 2.0 ? 3.0Conventional Range 3.0 ? 4.5 Performed By: #### 2 209624, 3506011, 98066290, 43533057, 77088050, 8270888, 59342746 ####[facility] [address] [place] [address] PT Coag (PPP) [Time] 15.5 second(s) High 9.4-12.5 [facility] Comment on above: Result Comment: 15 [...] the same coagulation reagent and instrumentation as [facility]. Currently there are no coagulation studies available worldwide for children to 14 days, and no normal ranges. Performed By: #### 2 972292, 5050006, 50747259, 90675557, 88822661, 5277076, 74337429 ####[facility] [address] [place] [address] Rapid COVID Antigen ([facility])on 08-27-2023 Rapid COV Int NEG Ctl Pass Normal Fis [facility] Comment on above: Performed By: #### 1 0917688, [id number] ####Alex [facility] [address] [place] [address] Rapid COV Int POS Ctl Pass Normal Fis her [facility] Comment on above: Performed By: #### 1 5169204, [id number] ####[facility] [address] [place] [address] SARS-CoV+SARS-CoV-2 (COVID-19) Ag IA.rapid Ql (Resp) Not detected Normal Not Detected [facility] Comment on above: Result Comment: The Component[employer]? System for Rapid Detection of SARS-CoV-2 is [...] or revoked sooner. Performed By: #### 1 2973432, [id number] ####[facility] [address] [place] [address] Troponin 0 Hr.on 08-27-2023 Troponin 18.90 pg/mL Normal 15.90-38.4 0 [facility] Comment on above: Result Comment: The 95% CI (Confidence Interval) PPV (Positive Predictive Value) for myocardial infarction in females is 38 pg/mL, in males 51 pg/mL. The results should be used in conjunction with clinical conditions of myocardial infarction.(Access High Sensitivity Troponin I Instructions For Use, [place], January 2018) Performed By: #### 2 000822, 4419668, 90631249, 83626086, 63883846, 7047401, 41932042 ####[address] [place] [address] Troponin 3 Hr.on 08-27-2023 Troponin 18.60 pg/mL Normal 15.90-38.4 0 [facility] Comment on above: Result Comment: The 95% CI (Confidence Interval) PPV (Positive Predictive Value) for myocardial infarction in females is 38 pg/mL, in males 51 pg/mL. The results should be used in conjunction with clinical conditions of myocardial infarction.(Access High Sensitivity Troponin I Instructions For Use, [place], January 2018) Performed By: #### 1 [id number] ####[facility] [address] [place] [address] eGFRon 08-27-2023 eGFR 26 mL/min/1.73 m2 Low >=59 [facility] Comment on above: Order Comment: Order added by Discern Expert. Performed By: #### 2 100393, 1587541, 91637736, 65606049, 07580002, 8461882, 72143153 ####[facility] [address] [place] [address] C. diff by PCRon 08-11-2023 Clostridium difficile by PCR Negative Normal Negative [facility] Comment on above: Order Comment: Order added by Discern Expert. Result Comment: This test result should be correlated with clinical presentations and medical history by a healthcare provider to determine its clinical significance. Performed By: #### 3 [id number], [id number] ####[facility] [address] [place] [address] CDiff PCRon 08-11-2023 C. difficile toxin A+B Ql (Stl) No, PCR to follow Normal [facility] Comment on above: Performed By: #### 3 [id number], [id number] ####[facility] [address] [place] [address] No Panel Informationon 08-10 Clostridium difficile (PCR)(LAB) Specimen Negative for toxigenic C. difficile by DNA amplification. Negative [facility] Clostridium Difficile Toxin A & B Acceptable [facility] Physician Orderon 08-11-2023 Physician Order [id number]#1.00TIFF Normal [facility] CDiff PCRon 07-26-2023 Cdiff Specimen Acceptable Unacceptable Normal [facility] Comment on above: Performed By: #### 3 [id number] ####[facility] [address] [place] [address] Order Cancelled YES Normal [facility] Comment on above: Performed By: #### 3 [id number] ####[facility] [address] [place] [address] No Panel Informationon 07-26 Cancelled Test [facility] Clostridium difficile Note Unacceptable [facility] Physician Orderon 07-26-2023 Physician Order [id number]#1.00TIFF Normal [facility] CDiff PCRon 07-18-2023 Cdiff Specimen Acceptable Unacceptable Normal [facility] Comment on above: Performed By: #### 3 [id number] ####[facility] [address] [place] [address] Order Cancelled YES Normal [facility] Comment on above: Performed By: #### 3 [id number] ####[facility] [address] [place] [address] No Panel Informationon 07-18 Cancelled Test [facility] Clostridium difficile Note Unacceptable [facility] Physician Orderon 07-18-2023 Physician Order [id number]#1.00TIFF Normal [facility] Consent for Procedure/Surger yon 07-17-2023 Consent for Procedure/Surgery [id number]#1.00TIFF Normal [facility] Consent for Treatmenton 07-05 Consent for Treatment [id number]#1.00TIFF [facility] IntraOperative Documentson 0 07-17-2023 IntraOperative Documents [id number]#1.00TIFF Normal [facility] Main [place] Intraoperative Recor don 07-17-2023 Main OR Intraoperative Record Normal [facility] Main [place] Preoperative Recordo n 07-17-2023 Main [place] Preoperative Record Normal [facility] Operative Reporton Operative Report Normal [facility] Comment on above: Result Comment: Elec tronically Signed By: CHAZ BROUSSARD, Andi Huertas.br\Date and Time Signed: 07/17/23 09:59 EST Patient Educationon 07-17-19 24 Patient Education Normal [facility] UroVysion Fish and Urine Cyt o ([facility])on 07-17-2023 [facility] Method of Extraction Bladder Wash Normal [facility] Comment on above: Performed By: #### 1 [id number] ####[facility] [address] [place] [address] [facility] Number of Jars 1 Invalid Interpretation Code [facility] Comment on above: Performed By: #### 1 [id number] ####[facility] [address] [place] [address] [facility] Specimen Urine Normal [facility] Comment on above: Performed By: #### 1 [id number] ####[facility] [address] [place] [address] [facility] Type of Service Technical Only Normal [facility] Comment on above: Performed By: #### 1 [id number] ####[facility] [address] Alanine aminotransferase [En zymatic activity/volume] in Serum or PlasmaOrdered By: Cayden Petty on 06-17-2023 ALT [Catalytic activity/Vol] 19 U/L Normal 7-52 [facility] Comment on above: Performed By: #### C K, BNP, HS TROP, CBC, CMP #### [facility] [address] [place] [address] [place] Albumin [Mass/volume] in Ser um or Plasma by Bromocresol green (BCG) dye binding methoOrdered By: Cayden Petty on 06-17-2023 Albumin BCG dye [Mass/Vol] 4.1 g/dL 3.5-5.7 [facility] Alkaline phosphatase [Enzyma tic activity/volume] in Serum or PlasmaOrdered By: Cayden Petty on 06-17-2023 ALP [Catalytic activity/Vol] 88 U/L Normal 34-104 [facility] Comment on above: Performed By: #### C K, BNP, HS TROP, CBC, CMP #### [facility] [address] Aspartate aminotransferase [ Enzymatic activity/volume] in Serum or PlasmaOrdered By: Cayden Petty on 06-17-2023 AST [Catalytic activity/Vol] 14 U/L Normal 13-39 [facility] Comment on above: Performed By: #### C K, BNP, HS TROP, CBC, CMP #### [facility] [address] [place] [address] [place] Automated basophil %Ordered By: Cayden Petty on 06-17-2023 Basophils/100 WBC (Bld) 1.0 % Normal . [facility] Comment on above: Performed By: #### C K, BNP, HS TROP, CBC, CMP #### [facility] [address] [place] [address] [place] Automated basophil countOrde red By: Cayden Petty on 06-17-2023 Basophils (Bld) [#/Vol] 0.1 10*3/uL Normal 0.0-0.2 [facility] Comment on above: Result Comment: PERF ORMED BY: [place] [address] PATHOLOGIST [employer] INSPECTOR ANUSHA MANCUSO M.D. Performed By: #### C K, BNP, HS TROP, CBC, CMP #### [address] Automated blood monocyte cou ntOrdered By: Cayden Petty on 06-17-2023 Monocytes (Bld) [#/Vol] 0.5 10*3/uL Normal 0.0-0.8 [facility] Comment on above: Performed By: #### C K, BNP, HS TROP, CBC, CMP #### [address] Automated eosinophil %Ordere d By: Cayden Petty on 06-17-2023 Eosinophils/100 WBC (Bld) 3.3 % Normal . [facility] Comment on above: Performed By: #### C K, BNP, HS TROP, CBC, CMP #### [address] Automated eosinophil countOr dered By: Cayden Petty on 06-17-2023 Eosinophils (Bld) [#/Vol] 0.2 10*3/uL Normal 0.0-0.45 [facility] Comment on above: Performed By: #### C K, BNP, HS TROP, CBC, CMP #### [address] Automated monocyte %Ordered By: Cayden Petty on 06-17-2023 Monocytes/100 WBC (Bld) 6.7 % Normal . [facility] Comment on above: Performed By: #### C K, BNP, HS TROP, CBC, CMP #### [address] Automated neutrophil %Ordere d By: Cayden Petty on 06-17-2023 Neutrophils/100 WBC (Bld) 72.9 % Normal . [facility] Comment on above: Performed By: #### C K, BNP, HS TROP, CBC, CMP #### [address] BNP ser/plasOrdered By: Cayden Petty on 06-17-2023 Natriuretic peptide B (Bld) [Mass/Vol] 271.0 pg/mL High 5-100 [facility] Comment on above: Result Comment: PERF ORMED BY: [place] [address] PATHOLOGIST [employer] M[employer] INSPECTOR ANUSHA MANCUSO M.D. Performed By: #### C K, BNP, HS TROP, CBC, CMP #### [address] Bilirubin.total [Mass/volume ] in Serum or PlasmaOrdered By: Cayden Petty on 06-17-2023 Bilirubin [Mass/Vol] 0.4 mg/dL Normal 0.3-1.0 [facility] Comment on above: Performed By: #### C K, BNP, HS TROP, CBC, CMP #### [address] Calcium [Mass/volume] in Ser um or PlasmaOrdered By: Cayden Petty on 06-17-2023 Calcium [Mass/Vol] 8.6 mg/dL Normal 8.6-10.3 [facility] Comment on above: Performed By: #### C K, BNP, HS TROP, CBC, CMP #### [place] [address] [place] Carbon dioxide, total [Moles /volume] in Serum or PlasmaOrdered By: Cayden Petty on 06-17-2023 CO2 [Moles/Vol] 23.4 mmol/L Normal 21.0-31.0 [facility] Comment on above: Performed By: #### C K, BNP, HS TROP, CBC, CMP #### [place] [address] [place] Chloride [Moles/volume] in S annalise or PlasmaOrdered By: Cayden Petty on 06-17-2023 Chloride [Moles/Vol] 105 mmol/L Normal 98-107 [facility] Comment on above: Performed By: #### C K, BNP, HS TROP, CBC, CMP #### [address] Complete Blood Count Auto Di ffon 06-17-2023 Mean Corpuscular HGB Conc 32.5 g/dL Normal 32.5-35.6 [facility] Comment on above: Performed By: #### C K, BNP, HS TROP, CBC, CMP #### [address] Monocytes/100 WBC (Bld) 16.93 % Normal 0.00-20.00 [facility] Comment on above: Performed By: #### C K, BNP, HS TROP, CBC, CMP #### [address] NRBC% 0.1 /100{WBC} Normal 0-0.5 [facility] Comment on above: Performed By: #### C K, BNP, HS TROP, CBC, CMP #### [address] Comprehensive Metabolic Pane victor m 06-17-2023 Albumin [Mass/Vol] 4.1 g/dL Normal 3.5-5.7 [facility] Comment on above: Performed By: #### C K, BNP, HS TROP, CBC, CMP #### [address] Creatinine Clr Calc Pharmacy 51.38 Normal [facility] Comment on above: Result Comment: PERF ORMED BY: [place] [address] PATHOLOGIST C[employer] M[employer] INSPECTOR ANUSHA MANCUSO M.D. Performed By: #### C K, BNP, HS TROP, CBC, CMP #### [address] GFR/1.73 sq M.predicted MDRD (S/P/Bld) [Vol rate/Area] 49.339 mL/min/{1.73_m2} Normal [facility] Comment on above: Performed By: #### C K, BNP, HS TROP, CBC, CMP #### [facility] [address] [place] [id number] [facility] Creatine kinase [Enzymatic a ctivity/volume] in Serum or PlasmaOrdered By: Cayden Petty on 06-17-2023 CK [Catalytic activity/Vol] 33 U/L Normal 30-223 [facility] Comment on above: Performed By: #### C K, BNP, HS TROP, CBC, CMP #### [facility] [address] Creatinine [Mass/volume] in Serum or PlasmaOrdered By: Cayden Petty on 06-17-2023 Creatinine [Mass/Vol] 1.48 mg/dL High 0.70-1.30 [facility] Comment on above: Performed By: #### C K, BNP, HS TROP, CBC, CMP #### [facility] [address] ECG 12 lead ECGon 06-17-2023 ECG 12 lead ECG [facility] Main [place] [address] [place] [address] Electrocardiograph Report Signed Patient: José Luis Faulkner MR#: [id number] : 1950 Acct:[id number] Age/Sex: 72 / M ADM Date: 06/17/23 Loc: ER Room: Type: [facility] ER Attending Dr: Ordering Provider: Cayden Petty MD Date of Service: 06/17/23 ECG/ECG [...] has replaced Electronic atrial pacemaker Confirmed by CAYDEN PETTY MD ([id number]) on 06/18/2023 12:09:12 AM Referred By: Electronically Signed By:CAYDEN PETTY MD Transcribed By: MUS Signed By Cayden Petty MD 06/18/23 0009 Normal [facility] Erythrocyte distribution wid th [Ratio] by Automated countOrdered By: Cayden Petty on 06-17-2023 Erythrocyte distribution width (RBC) [Ratio] 16.6 % High 12.0-14.8 [facility] Comment on above: Performed By: #### C K, BNP, HS TROP, CBC, CMP #### [facility] [address] Erythrocytes [#/volume] in B lood by Automated countOrdered By: Cayden Petty on 06-17-2023 RBC (Bld) [#/Vol] 3.44 10*6/uL Low 3.90-5.60 [facility] Comment on above: Performed By: #### C K, BNP, HS TROP, CBC, CMP #### [facility] [address] Glucose [Mass/volume] in Ser um or PlasmaOrdered By: Cayden Petty on 06-17-2023 Glucose [Mass/Vol] 240 mg/dL High 70-100 [facility] Comment on above: ADA recommended refe rence rangeRandom Glucose Reference Range is dependent on time and content of last meal. Glucose of more than 200 mg/dL in a nonstressed, ambulatory subject supports the diagnosis of Diabetes Mellitus. Result Comment: [place] om Glucose Reference Range is dependent on time and content of last meal. Glucose of more than 200 mg/dL in a nonstressed, ambulatory subject supports the diagnosis of Diabetes Mellitus. ADA recommended reference range Performed By: #### C K, BNP, HS TROP, CBC, CMP #### [facility] [address] Hematocrit [Volume Fraction] of Blood by Automated countOrdered By: Cayden Petty on 06-17-2023 Hematocrit (Bld) [Volume fraction] 29.7 % Low 38.8-50.0 [facility] Comment on above: Performed By: #### C K, BNP, HS TROP, CBC, CMP #### [facility] [address] [place] [address] [place] Hemoglobin [Mass/volume] in BloodOrdered By: Cayden Petty on 06-17-2023 Hemoglobin (Bld) [Mass/Vol] 9.6 g/dL Low 13.0-17.0 [facility] Comment on above: Performed By: #### C K, BNP, HS TROP, CBC, CMP #### [address] Leukocytes [#/volume] correc [place] for nucleated erythrocytes in Blood by Automated counOrdered By: Cayden Petty on 06-17-2023 WBC corrected for nucl RBC Auto (Bld) [#/Vol] 7.5 10*3/uL 4.1-10.5 [facility] Leukocytes [#/volume] in Blo od by Automated countOrdered By: Cayden Petty on 06-17-2023 WBC (Bld) [#/Vol] 7.5 10*3/uL Normal 4.1-10.5 [facility] Comment on above: Performed By: #### C K, BNP, HS TROP, CBC, CMP #### [address] Lymphocytes [#/volume] in Bl ood by Automated countOrdered By: Cayden Petty on 06-17-2023 Lymphocytes (Bld) [#/Vol] 1.2 10*3/uL Normal 1.00-4.8 [facility] Comment on above: Performed By: #### C K, BNP, HS TROP, CBC, CMP #### [place] [address] [place] Lymphocytes/100 leukocytes i n Blood by Automated countOrdered By: Cayden Petty on 06-17-2023 Lymphocytes/100 WBC (Bld) 16.1 % Normal . [facility] Comment on above: Performed By: #### C K, BNP, HS TROP, CBC, CMP #### [address] MCH [Entitic mass] by Automa orlando countOrdered By: Cayden Petty on 06-17-2023 MCH (RBC) [Entitic mass] 28.0 pg Normal 27.5-35.2 [facility] Comment on above: Performed By: #### C K, BNP, HS TROP, CBC, CMP #### [facility] [address] MCHC Auto (RBC) [Mass/Vol]Or dered By: Cayden Petty on 06-17-2023 MCHC (RBC) [Mass/Vol] 32.5 g/dL 32.5-35.6 [facility] MCV [Entitic volume] by Auto mated countOrdered By: Cayden Petty on 06-17-2023 MCV (RBC) [Entitic vol] 86.2 fL Normal 83.5-101 [facility] Comment on above: Performed By: #### C K, BNP, HS TROP, CBC, CMP #### [facility] [address] [place] [address] Monocyte distribution width [Entitic volume] in Blood by AutomatedOrdered By: Cayden Petty on 06-17-2023 Monocyte distribution width Auto (Bld) [Entitic vol] 16.93 % 0.00-20.00 [facility] Neutrophils [#/volume] in Bl ood by Automated countOrdered By: Cayden Petty on 06-17-2023 Neutrophils (Bld) [#/Vol] 5.5 10*3/uL Normal 1.8-7.7 [facility] Comment on above: Performed By: #### C K, BNP, HS TROP, CBC, CMP #### [facility] [address] [place] [address] No Panel InformationOrdered By: Cayden Petty on 06-17-2023 Estimated GFR (CKD-EPI) 49.339 mL/Min [facility] Creatinine Clearance (Chem 51.38 [facility] Nucleated erythrocytes [Pres ence] in Blood by Automated countOrdered By: Cayden Petty on 06-17-2023 Nucleated RBC Auto Ql (Bld) 0.1 /100{WBC} 0-0.5 [facility] Platelet mean volume [Entiti c volume] in Blood by Automated countOrdered By: Cayden Petty on 06-17-2023 Platelet mean volume (Bld) [Entitic vol] 7.1 fL Normal 6.6-10.1 [facility] Comment on above: Performed By: #### C K, BNP, HS TROP, CBC, CMP #### [address] Platelets [#/volume] in Bloo d by Automated countOrdered By: Cayden Petty on 06-17-2023 Platelets (Bld) [#/Vol] 286 10*3/uL Normal 150-450 [facility] Comment on above: Performed By: #### C K, BNP, HS TROP, CBC, CMP #### [address] Potassium [Moles/volume] in Serum or PlasmaOrdered By: Cayden Petty on 06-17-2023 Potassium [Moles/Vol] 4.6 mmol/L Normal 3.5-5.1 [facility] Comment on above: Performed By: #### C K, BNP, HS TROP, CBC, CMP #### [address] Protein [Mass/volume] in Ser um or PlasmaOrdered By: Cayden Petty on 06-17-2023 Protein [Mass/Vol] 7.2 g/dL Normal 6.4-8.9 [facility] Comment on above: Performed By: #### C K, BNP, HS TROP, CBC, CMP #### [address] Serum globulin measurement b y calculation (mass/volume)Ordered By: Cayden Petty on 06-17-2023 Globulin (S) [Mass/Vol] 3.1 g/dL [facility] Comment on above: Performed By: #### C K, BNP, HS TROP, CBC, CMP #### [address] Serum or plasma albumin/glob ulin mass ratioOrdered By: Cayden Petty on 06-17-2023 Albumin/Globulin [Mass ratio] 1.3 {ratio} [facility] Comment on above: Performed By: #### C K, BNP, HS TROP, CBC, CMP #### [address] Serum or plasma anion gap de terminationOrdered By: Cayden Petty on 06-17-2023 Anion gap [Moles/Vol] 15.2 mmol/L High 6.0-15.0 [facility] Comment on above: Performed By: #### C K, BNP, HS TROP, CBC, CMP #### [facility] [address] Sodium [Moles/volume] in Ser um or PlasmaOrdered By: Cayden Petty on 06-17-2023 Sodium [Moles/Vol] 139 mmol/L Normal 136-145 [facility] Comment on above: Performed By: #### C K, BNP, HS TROP, CBC, CMP #### [address] Troponin I High Sensitivityo n 06-17-2023 Troponin I High Sensitivity 14.5 pg/mL Normal 0.0-20.0 [facility] Comment on above: Result Comment: PERF ORMED BY: [place] [address] PATHOLOGIST COLD MILL INSPECTOR ANUSHA MANCUSO M.D. Performed By: #### C K, BNP, HS TROP, CBC, CMP #### [address] Troponin I.cardiac [Mass/vol ume] in Serum or Plasma by Detection limit <= 0.01 ng/Ordered By: Cayden Petty on 06-17-2023 Troponin I.cardiac DL <= 0.01 ng/mL [Mass/Vol] 14.5 pg/mL 0.0-20.0 [facility] Urea nitrogen [Mass/volume] in Serum or PlasmaOrdered By: Cayden Petty on 06-17-2023 Urea nitrogen [Mass/Vol] 18 mg/dL Normal 7-25 [facility] Comment on above: Performed By: #### C K, BNP, HS TROP, CBC, CMP #### [address] XR chest 1V portableon 06-17 XR chest 1V portable [facility] [address] [place] [address] XRay Report Signed Patient: José Luis Faulkner MR#: [id number] : 1950 Acct:[id number] Age/Sex: 72 / M ADM Date: 06/17/23 Loc: ER Room: Type: [facility] ER Attending Dr: Copies to: Cayden Petty MD Ordering Provider: Cyaden Petty MD Date of Service: 06/17/23 XR/XR [...] on the prior study. Impression dictated by: Carmen Liu M.D.06/17/2023 4:49 PM Dictation Location: [place] [address] Transcribed By: [facility] 06/17/231648 Dictated By: Carmen Liu II, MD 06/17/231645 Signed By: 06/17/231648 Normal [facility] BMPon 06-12-2023 Anion gap [Moles/Vol] 13 mmol/L Normal 6-16 [facility] Comment on above: Performed By: #### 2 206857, [id number] ####[facility] [address] [place] [address] BUN/Creat Ratio 15 No Units Normal 10-20 [facility] Comment on above: Performed By: #### 2 315636, [id number] ####[facility] [address] [place] [address] Calcium [Mass/Vol] 8.9 mg/dL Normal 8.9-11.1 [facility] Comment on above: Performed By: #### 2 379660, 49765074 ####[facility] [address] [place] [address] Chloride [Moles/Vol] 104 mmol/L Normal 101-111 [facility] Comment on above: Performed By: #### 2 579426, 42847618 ####[facility] [address] [place] [address] CO2 [Moles/Vol] 30 mmol/L Normal 21-31 [facility] Comment on above: Performed By: #### 2 608117, 15867635 ####[facility] [address] [place] [address] Creatinine [Mass/Vol] 1.3 mg/dL Normal 0.5-1.3 [facility] Comment on above: Performed By: #### 2 588807, 49703464 ####[facility] [address] [place] [address] Glucose [Mass/Vol] 151 mg/dL Normal 55-199 [facility] Comment on above: Performed By: #### 2 265515, 25073063 ####[facility] [address] [place] [address] Potassium [Moles/Vol] 4.4 mmol/L Normal 3.5-5.3 [facility] Comment on above: Performed By: #### 2 918787, 14505886 ####[facility] [address] [place] [address] Sodium [Moles/Vol] 143 mmol/L Normal 135-145 [facility] Comment on above: Performed By: #### 2 445863, 15524603 ####[facility] [address] [place] [address] Urea nitrogen [Mass/Vol] 19 mg/dL Normal 5-21 [facility] Comment on above: Performed By: #### 2 021135, 31185659 ####[facility] [address] [place] [address] CHEMISTRYOrdered By: SYSTEM SYSTEM on 06-12-2023 Anion [...] Consent for Treatmenton Consent for Treatment [id number]#1.00TIFF [facility] Physician Orderon 06-12-2023 Physician Order [id number]#1.00TIFF [facility] eGFRon 06-12-2023 eGFR 57 mL/min/1.73 m2 Low >=59 [facility] Comment on above: Order Comment: Order added by Discern Expert. Performed By: #### 2 160720, [id number] ####[facility] [address] [place] [address] Consent for Treatmenton 05-04 Consent for Treatment [id number]#1.00TIFF [facility] Consent for Treatmenton Consent for Treatment [id number]#1.00TIFF [facility] Oncology Noteon 04-12-2023 Oncology Note Normal [facility] Comment on above: Result Comment: Elec tronically Signed By: Maria Del Carmen Clarke RN\.br\Date and Time Signed: 04/12/23 11:33 EST Oncology Progress Noteon Oncology Progress Note Normal [facility] Consent for Treatmenton Consent for Treatment [id number]#1.00TIFF Normal [facility] Heart and Vascular Office/Cl inic Noteon 04-09-2023 Heart and Vascular Office/Clinic Note Normal [facility] Comment on above: Result Comment: Elec tronically Signed By: Caterina BROUSSARD, Nicolás Chavez\.br\Date and Time Signed: 04/09/23 10:21 EST Insurance Correspondenceon 1 06-09-2022 Insurance Correspondence [id number]#1.00TIFF Normal [facility] Medication Listson Medication Lists [id number]#1.00TIFF Normal [facility] Medication Lists [id number]#1.00TIFF Normal [facility] ONC - Otheron 04-09-2023 ONC - Other [id number]#1.00TIFF Normal [facility] Outside Labson 04-09-2023 Outside Labs [id number]#1.00TIFF Normal [facility] Outside Labs [id number]#1.00TIFF Normal [facility] Outside Labs [id number]#1.00TIFF Normal [facility] Outside Progress Noteon Outside Progress Note [id number]#1.00TIFF Normal [facility] Outside Progress Note [id number]#1.00TIFF Normal [facility] Outside Recordson 04-09-2023 Outside Records [id number]#1.00TIFF Normal [facility] Physician Orderon 04-09-2023 Physician Order [id number]#1.00TIFF Normal [facility] ECG 12 Leadon 04-04-2023 Significant artifact due to tremor, atrial pacemaker rhythm with diffuse nonspecific ST and T changes [facility] Work Phone: 36on 03-20-2023 36 Scheduled virtual follow up Normal [facility] 36 Name of Caller: Eduard Burks Contact Reason for Appointment: Caller is needing to scheduel a 3 month follow up for her dad. Office Name: Senior Services Medication Refills need, if any: no Medication Name: no Normal [facility] Progress Noteon 03-20-2023 Progress Note Interval history sin ce last appointment: Any visits to primary care provider? Yes Any visits to the emergency department/hospital? Yes, was in hospital for 4 days Any medication changes? Yes- torsemide increase to 40 mg, added spirolactimone 25 mg, added aspirin, added B12 Any falls? No Family present: patient, , daughter Zackary Educational Materials reviewed/provided at visit: Memory/Cognitive Ability [employer] info/hotline 10 Tips to Keeping Independent Memory Tips (mild) 5Ms Dealing with Dementia 10 Ways to Love Your Brain Exercise/Activities Exercise Age Page Communication/Behaviors Communication - All Stages Communication Tips Redirecting Community Programs Papa Pals Diet Healthy Nutrition for Older Adults - [facility] Injury Prevention/Home Safety [facility] Home Safety Checklist [facility] Mobility for Adults Falls Prevention Conversation Guide for Caregivers Medications Medication Safety/Dispensers Sleep [facility] a [facility] Sleep Hygiene Personal Care Personal Care Tips Bathing Tips Normal [facility] Progress Note [facility] [place] [address] Dept: [phone] Dept Loc: [phone] Visit type: [facility] Family Summary Conference Patient [...] stated that they are currently in the [facility]. If the patient is a minor, permission [...] by mouth every morning (before breakfast)., Starting Sun03/20/2023, Normal We reviewed the [...] loss x 3-4 years, previous dementia diagnosis, Daniels 19 (MIS 10), CDT 5, PHQ 1. [...] by mouth (more content not included)... Normal [facility] Coding Queryon 03-19-2023 Coding Query Normal [facility] Insurance Correspondenceon 1 Insurance Correspondence [id number]#1.00TIFF [facility] Consultation Noteon 03-15-20 Consultation Note Normal [facility] Comment on above: Result Comment: Elec tronically Signed By: Jeremías Mims MD\.br\Date and Time Signed: 03/15/23 13:25 EDT Consultation Noteon 03-14-20 Consultation Note Normal [facility] Comment on above: Result Comment: Elec tronically Signed By: Jeremías Mims MD\.br\Date and Time Signed: 03/11/23 13:23 EDT Other Comment: [employer] [place], DO NOT USE THIS REPORT Discharge Instructionson Discharge Instructions [id number]#1.00TIFF [facility] General Message Officeon General Message Office [facility] Prescriptions/Work Noteson Prescriptions/Work Notes [id number]#1.00TIFF [facility] BMPon 03-13-2023 Anion gap [Moles/Vol] 10 mmol/L Normal 11-17 [facility] Comment on above: Performed By: #### 2 246451, [id number] ####[facility] [address] [place] [address] Calcium [Mass/Vol] 8.5 mg/dL Low 8.9-11.1 [facility] Comment on above: Performed By: #### 2 570450, 25712471 ####[facility] [address] [place] [address] Chloride [Moles/Vol] 102 mmol/L Normal 101-111 [facility] Comment on above: Performed By: #### 2 901758, 56929842 ####[facility] [address] [place] [address] CO2 [Moles/Vol] 28 mmol/L Normal 21-31 [facility] Comment on above: Performed By: #### 2 578571, 81749653 ####[facility] [address] [place] [address] Creatinine [Mass/Vol] 1.3 mg/dL Normal 0.5-1.3 [facility] Comment on above: Performed By: #### 2 377638, 68113980 ####[facility] [address] [place] [address] Glucose [Mass/Vol] 151 mg/dL Normal 55-199 [facility] Comment on above: Result Comment: If t his glucose result represents a fasting glucose, interpretation should refer to the following reference range: 55-99 mg/dL Performed By: #### 2 209905, 23340882 ####[facility] [address] [place] [address] Potassium [Moles/Vol] 3.7 mmol/L Normal 3.5-5.3 [facility] Comment on above: Performed By: #### 2 863727, 04047591 ####[facility] [address] [place] [address] Sodium [Moles/Vol] 136 mmol/L Normal 135-145 [facility] Comment on above: Performed By: #### 2 470848, 08185170 ####[facility] [address] [place] [address] Urea nitrogen [Mass/Vol] 33 mg/dL High 5-21 [facility] Comment on above: Performed By: #### 2 657663, 18112503 ####[facility] [address] [place] [address] Urea nitrogen/Creatinine [Mass ratio] 25 No Units High 10-20 [facility] Comment on above: Performed By: #### 2 998014, 25250623 ####[facility] [address] [place] [address] Capillary Glucose POCon 03-04 Glucose [Mass/Vol] 235 mg/dL High 55- [facility] Comment on above: Result Comment: Kennedy espitia RN/ Performed By: #### 2 [id number] ####[facility] [address] [place] [address] Glucose [Mass/Vol] 136 mg/dL High 55-99 [facility] Comment on above: Result Comment: Kennedy espitia RN/ Performed By: #### 2 [id number] ####[facility] [address] [place] [address] Consultation Noteon 03-13-20 Consultation Note Normal [facility] Comment on above: Result Comment: Elec tronically Signed By: Apple Aviles RN\.br\Date and Time Signed: 03/12/23 09:19 EDT\.br\Electronically Co-Signed By: Terry Blank MD\.br\Date and Time Co-Signed: 03/13/23 11:58 EDT Discharge Note-Nursingon Discharge Note-Nursing This nurse notifi thuan Momni, from [facility] that pt is discharging and gave report on patient. Normal [facility] Discharge Note-Nursing Normal [facility] Echo Transthoracic w/ Contra ston 03-13-2023 Echo Transthoracic w/ Contrast Normal [facility] Inpatient Clinical Summaryon 03-13-2023 Inpatient Clinical Summary Normal [facility] Inpatient Patient Summaryon 03-13-2023 Inpatient Patient Summary Normal [facility] Insurance Correspondence Off iceon 03-13-2023 Insurance Correspondence Office [id number]#1.00TIFF [facility] Interdisciplinary Note - Edwardo e Manageron 03-13-2023 Interdisciplinary Note - Manager Of Software Development [facility] Comment on above: Result Comment: Elec tronically Signed By: Geno Shukla\.br\Date and Time Signed: 03/13/23 12:20 EDT Monitor Recordon 03-13-2023 Monitor Record [id number]#1.00TIFF Normal [facility] Monitor Record [id number]#1.00TIFF Normal [facility] Progress Note-Physicianon Progress Note-Physician Normal [facility] Comment on above: Result Comment: Elec tronically Signed By: Jeremías Mims MD\.br\Date and Time Signed: 03/13/23 16:35 EDT Progress Note-Physician Normal [facility] Comment on above: Result Comment: Elec tronically Signed By: Angelina London\.br\Date and Time Signed: 03/12/23 19:49 EDT\.br\Electronically Co-Signed By: Delvin SANTANA MD\.br\Date and Time Co-Signed: 03/13/23 06:56 EDT eGFRon 03-13-2023 GFR/1.73 sq M.predicted among non-blacks MDRD (S/P/Bld) [Vol rate/Area] 58 mL/min/1.73 m2 Low >=59 [facility] Comment on above: Order Comment: Order added by Discern Expert. Result Comment: Inspector Multifocal Lens laisha kidney disease could be indicated at eGFR's of less than 60 mL/min/1.73m2. Kidney failure is indicated at less than 15 mL/min/1.73m2. Performed By: #### 2 709449, [id number] ####[facility] [address] [place] [address] Auto Diffon 03-12-2023 Basophils/100 WBC (Bld) 0.3 % Normal 0.0-2.0 [facility] Comment on above: Order Comment: Order Added by Discern Expert. Performed By: #### 2 512724, 3269748, 0496997, 59470376, 8565138, 8097923 ####[facility] [address] [place] [address] Basophils/Leukocytes Auto (Bld) [Pure # fraction] 0.0 E9/L Normal 0.0-0.2 [facility] Comment on above: Order Comment: Order Added by Discern Expert. Performed By: #### 2 081233, 8454222, 7782274, 08316786, 0566079, 5212828 ####[facility] [address] [place] [address] Eosinophils/100 WBC (Bld) 0.4 % Normal 0.0-8.0 [facility] Comment on above: Order Comment: Order Added by Discern Expert. Performed By: #### 2 362504, 3233399, 2850705, 60016328, 0271686, 8867970 ####[address] [address] Eosinophils/Leukocytes Auto (Bld) [Pure # fraction] 0.0 E9/L Normal 0.0-0.5 [facility] Comment on above: Order Comment: Order Added by Jayesh Expert. Performed By: #### 2 945178, 4075535, 7586751, 58088607, 6346342, 3278200 ####[address] [place] [address] Lymphocytes/100 WBC (Bld) 17.3 % Normal 14.0-50.0 [facility] Comment on above: Order Comment: Order Added by Jayesh Expert. Performed By: #### 2 895576, 3037975, 1767655, 70172690, 0062546, 5234858 ####[address] [place] [address] Lymphocytes/Leukocytes Auto (Bld) [Pure # fraction] 1.8 E9/L Normal 1.0-4.0 [facility] Comment on above: Order Comment: Order Added by Jayesh Expert. Performed By: #### 2 291557, 5725479, 7525368, 77911738, 4420991, 2860917 ####[address] [place] [address] Monocytes/100 WBC (Bld) 7.5 % Normal 4.0-14.0 [facility] Comment on above: Order Comment: Order Added by Jayesh Expert. Performed By: #### 2 253062, 7361708, 3479933, 98597440, 7979796, 9851691 ####[facility] [address] [place] [address] Monocytes/Leukocytes Auto (Bld) [Pure # fraction] 0.8 E9/L Normal 0.2-1.0 [facility] Comment on above: Order Comment: Order Added by Discern Expert. Performed By: #### 2 053644, 0213737, 4954275, 69139135, 1619866, 5401936 ####[address] [place] [address] Neutrophils/100 WBC (Bld) 74.5 % Normal 36.0-75.0 [facility] Comment on above: Order Comment: Order Added by Jayesh Expert. Performed By: #### 2 709355, 9095176, 2262219, 51377184, 0142520, 3975028 ####[facility] [address] [place] [address] Neutrophils/Leukocytes Auto (Bld) [Pure # fraction] 7.5 E9/L Normal 2.0-7.5 [facility] Comment on above: Order Comment: Order Added by Jayesh Expert. Performed By: #### 2 149131, 6681142, 2537842, 65736101, 8117787, 1001127 ####[facility] [address] [place] [address] BMPon 03-12-2023 Anion gap [Moles/Vol] 13 mmol/L Normal 6-16 [facility] Comment on above: Performed By: #### 2 983937, 9406416, 1810652, 24563099, 4970863, 6082604 ####[facility] [address] [place] [address] Calcium [Mass/Vol] 8.6 mg/dL Low 8.9-11.1 [facility] Comment on above: Performed By: #### 2 821749, 7139870, 6674689, 91401864, 0710193, 3490710 ####[facility] [address] [place] [address] Chloride [Moles/Vol] 101 mmol/L Normal 101-111 [facility] Comment on above: Performed By: #### 2 005442, 8982313, 6636580, 31148568, 4367493, 7004972 ####[facility] [address] [place] [address] CO2 [Moles/Vol] 29 mmol/L Normal 21-31 [facility] Comment on above: Performed By: #### 2 106127, 0010200, 2535635, 88418740, 1179997, 1724051 ####[facility] [address] [place] [address] Creatinine [Mass/Vol] 1.4 mg/dL High 0.5-1.3 [facility] Comment on above: Performed By: #### 2 138108, 2280271, 0455063, 96896566, 9416696, 6281379 ####[facility] [address] [place] [address] Glucose [Mass/Vol] 126 mg/dL Normal 55-199 [facility] Comment on above: Result Comment: If t his glucose result represents a fasting glucose, interpretation should refer to the following reference range: 55-99 mg/dL Performed By: #### 2 215863, 8635822, 5451888, 69728720, 1678416, 7915979 ####[facility] [address] [place] [address] Potassium [Moles/Vol] 3.6 mmol/L Normal 3.5-5.3 [facility] Comment on above: Performed By: #### 2 929588, 1869754, 9666903, 69434212, 1459195, 1187464 ####[facility] [address] [place] [address] Sodium [Moles/Vol] 139 mmol/L Normal 135-145 [facility] Comment on above: Performed By: #### 2 005041, 1863231, 8896514, 23490839, 3711384, 2397102 ####[facility] [address] [place] [address] Urea nitrogen [Mass/Vol] 40 mg/dL High 5-21 [facility] Comment on above: Performed By: #### 2 122161, 0289306, 8182660, 41352936, 1082713, 4801529 ####[facility] [address] [place] [address] Urea nitrogen/Creatinine [Mass ratio] 29 No Units High 10-20 [facility] Comment on above: Performed By: #### 2 854582, 6743084, 1455786, 52538029, 1351425, 3430403 ####[facility] [address] [place] [address] CBC w/ Auto Diffon Erythrocyte distribution width (RBC) [Ratio] 15.7 % High 10.9-14.2 [facility] Comment on above: Performed By: #### 2 748926, 3476370, 3513176, 49795620, 2874113, 6990285 ####[facility] [address] [place] [address] Hematocrit (Bld) [Volume fraction] 28.3 % Low 37.7-49.0 [facility] Comment on above: Performed By: #### 2 558065, 0479927, 3507292, 76611434, 1973296, 1546046 ####[facility] [address] [place] [address] Hemoglobin (Bld) [Mass/Vol] 9.5 g/dL Low 13.5-17.5 [facility] Comment on above: Performed By: #### 2 740592, 6071743, 3622456, 82038158, 9049871, 6736778 ####[facility] [address] [place] [address] MCH (RBC) [Entitic mass] 28.0 pg Normal 27.0-34.0 [facility] Comment on above: Performed By: #### 2 868805, 5971414, 9517074, 62274315, 8112662, 3913510 ####[place] [address] MCHC (RBC) [Mass/Vol] 33.7 g/dL Normal 31.4-36.0 [facility] Comment on above: Performed By: #### 2 533039, 4528147, 5800178, 80872163, 1947968, 9769182 ####[place] [address] MCV (RBC) [Entitic vol] 83.1 fL Normal 80.0-100.0 [facility] Comment on above: Performed By: #### 2 653141, 1579801, 5009729, 66796831, 9715184, 2888645 ####[place] [address] Platelet mean volume (Bld) [Entitic vol] 6.4 fL Normal 6.4-10.8 [facility] Comment on above: Performed By: #### 2 021911, 8562559, 4490135, 56332528, 5997824, 6567817 ####[place] [address] Platelets (Bld) [#/Vol] 284.0 E9/L Normal 150.0-500. 0 [facility] Comment on above: Performed By: #### 2 404445, 9560383, 5398608, 37541441, 6079626, 3376603 ####[place] [address] RBC (Bld) [#/Vol] 3.4 E12/L Low 4.3-5.9 [facility] Comment on above: Performed By: #### 2 676437, 7278827, 3105488, 93022577, 9509205, 5228913 ####[facility] [address] [place] [address] WBC corrected for nucl RBC Auto (Bld) [#/Vol] 10.1 E9/L Normal 4.0-11.0 [facility] Comment on above: Performed By: #### 2 466452, 3370830, 1101223, 67082483, 2366313, 6115831 ####[facility] [address] [place] [address] CT Head or Brain w/o Contras ton 03-12-2023 CT Head or Brain w/o Contrast Normal [facility] Capillary Glucose POCon Glucose [Mass/Vol] 282 mg/dL High 55-99 [facility] Comment on above: Result Comment: Kennedy SULLIVAN Performed By: #### 2 99996154 ####[facility] [address] [place] [address] Glucose [Mass/Vol] 319 mg/dL High 55-99 [facility] Comment on above: Result Comment: Kennedy SULLIVAN Performed By: #### 2 43933609 ####[facility] [address] [place] [address] Glucose [Mass/Vol] 186 mg/dL High 55-99 [facility] Comment on above: Result Comment: Kennedy SULLIVAN Performed By: #### 2 49874585 ####[facility] [address] [place] [address] Glucose [Mass/Vol] 105 mg/dL High 55-99 [facility] Comment on above: Result Comment: Kennedy SULLIVAN Performed By: #### 2 04148731 ####[facility] [address] [place] [address] Insurance Correspondence Off iceon 03-12-2023 Insurance Correspondence Office [id number]#1.00TIFF [facility] Interdisciplinary Note - Edwardo e Manageron 03-12-2023 Interdisciplinary Note - Manager Of Software Development Normal [facility] Comment on above: Result Comment: Elec tronically Signed By: Downs, Jane R\.br\Date and Time Signed: 03/12/23 14:51 EDT Interdisciplinary Note - Rocky n 03-12-2023 Interdisciplinary Note - OT Normal [facility] Interdisciplinary Note - PTo n 03-12-2023 Interdisciplinary Note - PT Normal [facility] Lipid Panelon 03-12-2023 Cholesterol [Mass/Vol] 122 mg/dL Normal 120-200 [facility] Comment on above: Performed By: #### 2 340862, 9159446, 1482056, 59318024, 3479128, 8323368 ####[facility] [address] [place] [address] Cholesterol in HDL [Mass/Vol] 39 mg/dL Invalid Interpretation Code [facility] Comment on above: Result Comment: HDL > or equal to 60 mg/dL: Low cardiovascular riskHDL < 40 mg/dL : High cardiovascular risk Performed By: #### 2 096956, 5837280, 8365179, 30996626, 8184444, 4170276 ####[facility] [address] [place] [address] Cholesterol in LDL [Mass/Vol] 60 mg/dL Normal <=129 [facility] Comment on above: Performed By: #### 2 546294, 3107106, 4136316, 32902231, 9012403, 5675650 ####[facility] [address] [place] [address] Cholesterol in VLDL [Mass/Vol] 19 mg/dL Normal 7-40 [facility] Comment on above: Performed By: #### 2 605435, 7569181, 1408959, 75164477, 4392272, 7749606 ####[facility] [address] [place] [address] Triglyceride [Mass/Vol] 95 mg/dL Normal <=149 [facility] Comment on above: Performed By: #### 2 293176, 6578645, 9944583, 54386253, 1750209, 1648154 ####[facility] [address] [place] [address] Magnesiumon 03-12-2023 Magnesium [Mass/Vol] 2.4 mg/dL Normal 1.3-2.4 [facility] Comment on above: Performed By: #### 2 179078, 8202211, 2393529, 07241736, 0622840, 8595435 ####[facility] [address] [place] [address] Message from Medicareon Message from Medicare [id number]#1.00TIFF Normal [facility] Progress Note-Physicianon Progress Note-Physician Normal [facility] Comment on above: Result Comment: Elec tronically Signed By: Prasanna BROUSSARD, Jeremías Leahy\.br\Date and Time Signed: 03/12/23 18:04 EDT Progress Note-Physician Normal [facility] Comment on above: Result Comment: Elec tronically Signed By: Andi HERNANDEZ DO\.br\Date and Time Signed: 03/12/23 00:59 EDT US Carotid Duplex Bilateralo n 03-12-2023 US Carotid Duplex Bilateral Normal [facility] eGFRon 03-12-2023 GFR/1.73 sq M.predicted among non-blacks MDRD (S/P/Bld) [Vol rate/Area] 53 mL/min/1.73 m2 Low >=59 [facility] Comment on above: Order Comment: Order added by Discern Expert. Result Comment: Inspector Multifocal Lens laisha kidney disease could be indicated at eGFR's of less than 60 mL/min/1.73m2. Kidney failure is indicated at less than 15 mL/min/1.73m2. Performed By: #### 2 057453, 1719279, 9231358, 68929510, 6651492, 9162349 ####[facility] [address] [place] [address] Auto Diffon 03-11-2023 Basophils/100 WBC (Bld) 0.2 % Normal 0.0-2.0 [facility] Comment on above: Order Comment: Order Added by Discern Expert. Performed By: #### 2 074845, 3305589, 0675491, 69009464 ####[place] [address] [place] [address] Basophils/Leukocytes Auto (Bld) [Pure # fraction] 0.0 E9/L Normal 0.0-0.2 [facility] Comment on above: Order Comment: Order Added by Discern Expert. Performed By: #### 2 159983, 9063193, 2248789, 42756139 ####[address] [address] Eosinophils/100 WBC (Bld) 0.2 % Normal 0.0-8.0 [facility] Comment on above: Order Comment: Order Added by Discern Expert. Performed By: #### 2 847284, 0581874, 9585952, 25144490 ####[address] [address] Eosinophils/Leukocytes Auto (Bld) [Pure # fraction] 0.0 E9/L Normal 0.0-0.5 [facility] Comment on above: Order Comment: Order Added by Discern Expert. Performed By: #### 2 452074, 2283950, 8599228, 97627457 ####[address] [address] Lymphocytes/100 WBC (Bld) 12.9 % Low 14.0-50.0 [facility] Comment on above: Order Comment: Order Added by Jayesh Expert. Performed By: #### 2 867192, 6050990, 6475708, 64194232 ####[address] [address] Lymphocytes/Leukocytes Auto (Bld) [Pure # fraction] 1.2 E9/L Normal 1.0-4.0 [facility] Comment on above: Order Comment: Order Added by Jayesh Expert. Performed By: #### 2 530920, 0951540, 2933983, 83754887 ####[address] [address] Monocytes/100 WBC (Bld) 6.5 % Normal 4.0-14.0 [facility] Comment on above: Order Comment: Order Added by Discern Expert. Performed By: #### 2 191121, 2012919, 7325631, 65120576 ####[facility] [address] [place] [address] Monocytes/Leukocytes Auto (Bld) [Pure # fraction] 0.6 E9/L Normal 0.2-1.0 [facility] Comment on above: Order Comment: Order Added by Discern Expert. Performed By: #### 2 025442, 4073106, 0023397, 17918579 ####[facility] [address] [place] [address] Neutrophils/100 WBC (Bld) 80.2 % High 36.0-75.0 [facility] Comment on above: Order Comment: Order Added by Jayesh Expert. Performed By: #### 2 456428, 4664752, 3333753, 02241325 ####[facility] [address] [place] [address] Neutrophils/Leukocytes Auto (Bld) [Pure # fraction] 7.6 E9/L High 2.0-7.5 [facility] Comment on above: Order Comment: Order Added by Jayesh Expert. Performed By: #### 2 009349, 9335165, 7146310, 37472497 ####[facility] [address] [place] [address] BMPon 03-11-2023 Anion gap [Moles/Vol] 17 mmol/L High 6-16 [facility] Comment on above: Performed By: #### 2 861844, 4252980, 7819676, 20128671 ####[facility] [address] [place] [address] Calcium [Mass/Vol] 9.0 mg/dL Normal 8.9-11.1 [facility] Comment on above: Performed By: #### 2 035039, 3608623, 7414520, 99378971 ####[facility] [address] [place] [address] Chloride [Moles/Vol] 99 mmol/L Low 101-111 [facility] Comment on above: Performed By: #### 2 626365, 3138217, 8078409, 63679004 ####[facility] [address] [place] [address] CO2 [Moles/Vol] 26 mmol/L Normal 21-31 [facility] Comment on above: Performed By: #### 2 023472, 1501754, 2657108, 32227785 ####[facility] [address] [place] [address] Creatinine [Mass/Vol] 1.6 mg/dL High 0.5-1.3 [facility] Comment on above: Performed By: #### 2 488587, 7416302, 4495095, 36103727 ####[facility] [address] [place] [address] Glucose [Mass/Vol] 142 mg/dL Normal 55-199 [facility] Comment on above: Result Comment: If t his glucose result represents a fasting glucose, interpretation should refer to the following reference range: 55-99 mg/dL Performed By: #### 2 269417, 7222689, 9783656, 97738529 ####[facility] [address] [place] [address] Potassium [Moles/Vol] 3.7 mmol/L Normal 3.5-5.3 [facility] Comment on above: Performed By: #### 2 046789, 4443653, 1730822, 40563948 ####[facility] [address] [place] [address] Sodium [Moles/Vol] 138 mmol/L Normal 135-145 [facility] Comment on above: Performed By: #### 2 569175, 0123159, 8418311, 96396572 ####[facility] [address] [place] [address] Urea nitrogen [Mass/Vol] 37 mg/dL High 5-21 [facility] Comment on above: Performed By: #### 2 067040, 1025404, 0397592, 80880545 ####[facility] [address] [place] [address] Urea nitrogen/Creatinine [Mass ratio] 23 No Units High 10-20 [facility] Comment on above: Performed By: #### 2 969613, 3568368, 4185326, 48554340 ####[address] [address] CBC w/ Auto Diffon Erythrocyte distribution width (RBC) [Ratio] 15.4 % High 10.9-14.2 [facility] Comment on above: Performed By: #### 2 167051, 8978785, 0612723, 01331418 ####[address] [address] Hematocrit (Bld) [Volume fraction] 30.0 % Low 37.7-49.0 [facility] Comment on above: Performed By: #### 2 583538, 7006944, 8324554, 59255740 ####[address] [address] Hemoglobin (Bld) [Mass/Vol] 9.8 g/dL Low 13.5-17.5 [facility] Comment on above: Performed By: #### 2 102581, 3341448, 5868093, 87978984 ####[address] [address] MCH (RBC) [Entitic mass] 27.6 pg Normal 27.0-34.0 [facility] Comment on above: Performed By: #### 2 939942, 2265151, 9170335, 17949353 ####[address] [address] MCHC (RBC) [Mass/Vol] 32.8 g/dL Normal 31.4-36.0 [facility] Comment on above: Performed By: #### 2 484179, 1175523, 2326798, 14368151 ####[address] [address] MCV (RBC) [Entitic vol] 84.2 fL Normal 80.0-100.0 [facility] Comment on above: Performed By: #### 2 964143, 4441246, 3971881, 04873959 ####[facility] [address] [place] [address] Platelet mean volume (Bld) [Entitic vol] 7.1 fL Normal 6.4-10.8 [facility] Comment on above: Performed By: #### 2 517089, 9954249, 7410398, 12366606 ####[facility] [address] [place] [address] Platelets (Bld) [#/Vol] 288.0 E9/L Normal 150.0-500. 0 [facility] Comment on above: Performed By: #### 2 995238, 0271290, 1762632, 39879876 ####[address] [address] RBC (Bld) [#/Vol] 3.6 E12/L Low 4.3-5.9 [facility] Comment on above: Performed By: #### 2 724309, 2638429, 5308146, 91509073 ####[address] [address] WBC corrected for nucl RBC Auto (Bld) [#/Vol] 9.5 E9/L Normal 4.0-11.0 [facility] Comment on above: Performed By: #### 2 923512, 4142603, 4311171, 09150705 ####[place] [address] [place] [address] Capillary Glucose POCon 100 Glucose [Mass/Vol] 235 mg/dL High 55-99 [facility] Comment on above: Result Comment: Kennedy espitia RN/ Performed By: #### 2 20879288 ####[facility] [address] [place] [address] Glucose [Mass/Vol] 298 mg/dL High 55-99 [facility] Comment on above: Result Comment: Chela nohemi Meter Performed By: #### 2 15782540 ####[facility] [address] [place] [address] Glucose [Mass/Vol] 318 mg/dL High [address] Comment on above: Result Comment: Kennedy espitia RN/ Performed By: #### 2 46111285 ####[facility] [address] [place] [address] Glucose [Mass/Vol] 268 mg/dL High 55-99 [facility] Comment on above: Result Comment: Kennedy espitia RN/ Performed By: #### 2 23088747 ####[facility] [address] [place] [address] Interdisciplinary Note - Edwardo e Manageron 03-11-2023 Interdisciplinary Note - Manager Of Software Development [facility] Comment on above: Result Comment: Elec tronically Signed By: Geno Shukla\.br\Date and Time Signed: 03/11/23 12:18 EDT Monitor Recordon 03-11-2023 Monitor Record [id number]#1.00TIFF [facility] Monitor Record [id number]#1.00TIFF [facility] Monitor Record [id number]#1.00TIFF [facility] Monitor Record [id number]#1.00TIFF [facility] Progress Note-Physicianon Progress Note-Physician [facility] Comment on above: Result Comment: Elec tronically Signed By: Prasanna BROUSSARD, Jeremías Leahy\.br\Date and Time Signed: 03/11/23 15:08 EDT Progress Note-Physician [facility] Comment on above: Result Comment: Elec tronically Signed By: Angelina London\.br\Date and Time Signed: 03/11/23 09:57 EDT\.br\Electronically Co-Signed By: Felix Dc DO.br\Date and Time Co-Signed: 03/11/23 14:29 EDT eGFRon 03-11-2023 GFR/1.73 sq M.predicted among non-blacks MDRD (S/P/Bld) [Vol rate/Area] 45 mL/min/1.73 m2 Low >=59 [facility] Comment on above: Order Comment: Order added by Discern Expert. Result Comment: Inspector Multifocal Lens laisha kidney disease could be indicated at eGFR's of less than 60 mL/min/1.73m2. Kidney failure is indicated at less than 15 mL/min/1.73m2. Performed By: #### 2 552014, 7725877, 8345787, 47160584 ####[facility] [address] [place] [address] BMPon 03-10-2023 Anion gap [Moles/Vol] 14 mmol/L Normal 6-16 [facility] Comment on above: Performed By: #### 2 999295, 16873920, 3465801, 6250712 ####[facility] [address] [place] [address] Calcium [Mass/Vol] 8.6 mg/dL Low 8.9-11.1 [facility] Comment on above: Performed By: #### 2 990803, 46839315, 6344046, 9271745 ####[facility] [address] [place] [address] Chloride [Moles/Vol] 98 mmol/L Low 101-111 [facility] Comment on above: Performed By: #### 2 673845, 81001278, 2655808, 7812692 ####[facility] [address] [place] [address] CO2 [Moles/Vol] 28 mmol/L Normal 21-31 [facility] Comment on above: Performed By: #### 2 269129, 85842823, 5373744, 5936020 ####[facility] [address] [place] [address] Creatinine [Mass/Vol] 1.5 mg/dL High 0.5-1.3 [facility] Comment on above: Performed By: #### 2 116997, 71810104, 8030953, 8661603 ####[facility] [address] [place] [address] Glucose [Mass/Vol] 300 mg/dL High 55-199 [facility] Comment on above: Result Comment: If t his glucose result represents a fasting glucose, interpretation should refer to the following reference range: 55-99 mg/dL Performed By: #### 2 975717, 68172121, 6317729, 2976071 ####[facility] [address] [place] [address] Potassium [Moles/Vol] 4.0 mmol/L Normal 3.5-5.3 [facility] Comment on above: Performed By: #### 2 907462, 96753296, 4074027, 4670213 ####[facility] [address] [place] [address] Sodium [Moles/Vol] 136 mmol/L Normal 135-145 [facility] Comment on above: Performed By: #### 2 243588, 45450258, 6153809, 3799152 ####[facility] [address] [place] [address] Urea nitrogen [Mass/Vol] 32 mg/dL High 5-21 [facility] Comment on above: Performed By: #### 2 241971, 56922336, 3693196, 5631024 ####[facility] [address] [place] [address] Urea nitrogen/Creatinine [Mass ratio] 21 No Units High 10-20 [facility] Comment on above: Performed By: #### 2 293386, 88054650, 9730339, 0586868 ####[facility] [address] [place] [address] CBC w/Indiceson 03-10-2023 Erythrocyte distribution width (RBC) [Ratio] 15.6 % High 10.9-14.2 [facility] Comment on above: Performed By: #### 2 115504, 60915702, 5776276, 3104303 ####[facility] [address] [place] [address] Hematocrit (Bld) [Volume fraction] 30.0 % Low 37.7-49.0 [facility] Comment on above: Performed By: #### 2 232398, 70281365, 3758457, 4001123 ####[place] [address] Hemoglobin (Bld) [Mass/Vol] 10.1 g/dL Low 13.5-17.5 [facility] Comment on above: Performed By: #### 2 227820, 54224757, 0623353, 9685197 ####[place] [address] MCH (RBC) [Entitic mass] 28.1 pg Normal 27.0-34.0 [facility] Comment on above: Performed By: #### 2 514113, 20019791, 8375686, 0510633 ####[place] [address] MCHC (RBC) [Mass/Vol] 33.6 g/dL Normal 31.4-36.0 [facility] Comment on above: Performed By: #### 2 874720, 21046600, 2435032, 4294417 ####[place] [address] MCV (RBC) [Entitic vol] 83.5 fL Normal 80.0-100.0 [facility] Comment on above: Performed By: #### 2 120697, 39042733, 8411632, 5005204 ####[address] [address] Platelet mean volume (Bld) [Entitic vol] 6.8 fL Normal 6.4-10.8 [facility] Comment on above: Performed By: #### 2 559336, 22713039, 2219662, 1642989 ####[facility] [address] [place] [address] Platelets (Bld) [#/Vol] 284.0 E9/L Normal 150.0-500. 0 [facility] Comment on above: Performed By: #### 2 974813, 63808989, 4925992, 5623045 ####[facility] [address] [place] [address] RBC (Bld) [#/Vol] 3.6 E12/L Low 4.3-5.9 [facility] Comment on above: Performed By: #### 2 203024, 97830838, 0592911, 4186578 ####[facility] [address] [place] [address] WBC corrected for nucl RBC Auto (Bld) [#/Vol] 9.8 E9/L Normal 4.0-11.0 [facility] Comment on above: Performed By: #### 2 701295, 78927106, 9012876, 8432917 ####[facility] [address] [place] [address] Capillary Glucose POCon 10-0 Glucose [Mass/Vol] 231 mg/dL High 55-99 [facility] Comment on above: Result Comment: Chela nohemi Meter Performed By: #### 2 82174501 ####[facility] [address] [place] [address] Glucose [Mass/Vol] 232 mg/dL High 55-99 [facility] Comment on above: Result Comment: Kennedy SULLIVAN Performed By: #### 2 17462234 ####[facility] [address] [place] [address] Glucose [Mass/Vol] 309 mg/dL High 55-99 [facility] Comment on above: Result Comment: Kennedy SULLIVAN Performed By: #### 2 90214443 ####[facility] [address] [place] [address] Glucose [Mass/Vol] 276 mg/dL High 55-99 [facility] Comment on above: Result Comment: Kennedy SULLIVAN Performed By: #### 2 66597234 ####[facility] [address] [place] [address] Glucose [Mass/Vol] 420 mg/dL High 55-99 [facility] Comment on above: Result Comment: Kennedy SULLIVAN Performed By: #### 2 [id number] ####[facility] [address] [place] [address] Consultation Noteon 03-10-20 Consultation Note Normal [facility] Comment on above: Result Comment: Elec tronically Signed By: Prasanna BROUSSARD, Jeremías Leahy\mary\Date and Time Signed: 03/10/23 18:32 EDT Influenza A&B Agon 3 Influenzae A Ag Negative Normal Negative [facility] Comment on above: Performed By: #### 1 [id number], 02652906, [id number] ####[address] [place] [address] Influenzae B Ag Negative Normal Negative [facility] Comment on above: Result Comment: Test sensitivity and specificity vary for age group, specimen type, antigen types, and prevalence of disease. Test results must be evaluated in conjunction with other clinical data available to the physician. Individuals who received nasally administered Influenza A vaccine may have positive test results up to 3 days after vaccination. Performed By: #### 1 [id number], 47654515, [id number] ####[address] [place] [address] Interdisciplinary Note - Edwardo e Manageron 03-10-2023 Interdisciplinary Note - Manager Of Software Development Normal [facility] Comment on above: Result Comment: Elec tronically Signed By: Geno Shukla\mary\Date and Time Signed: 03/10/23 12:39 EDT Magnesiumon 03-10-2023 Magnesium [Mass/Vol] 2.1 mg/dL Normal 1.3-2.4 [facility] Comment on above: Performed By: #### 2 549373, 56251586, 8873287, 1527033 ####[facility] [address] [place] [address] Monitor Recordon 03-10-2023 Monitor Record [id number]#1.00TIFF Normal [facility] Monitor Record [id number]#1.00TIFF Normal [facility] Monitor Record [id number]#1.00TIFF Normal [facility] Procalcitoninon 03-10-2023 Procalcitonin <.05 Normal .00-.50 [facility] Comment on above: Result Comment: <0.5 [...] 6 to 24 hours. Performed By: #### 1 [id number], [id number] ####[facility] [address] [place] [address] Progress Note-Physicianon Progress Note-Physician Normal [facility] Comment on above: Result Comment: Elec tronically Signed By: Angelina London\.br\Date and Time Signed: 03/10/23 15:51 EDT\.br\Electronically Co-Signed By: Felix Dc DO.br\Date and Time Co-Signed: 03/10/23 18:30 EDT Rapid COVID Antigen ([facility])on 03-10-2023 Rapid COV Int NEG Ctl Pass Normal [facility] Comment on above: Performed By: #### 1 [id number], 27264263, [id number] ####[facility] [address] [place] [address] Rapid COV Int POS Ctl Pass Normal [facility] Comment on above: Performed By: #### 1 [id number], 87485066, [id number] ####[facility] [address] [place] [address] SARS-CoV+SARS-CoV-2 (COVID-19) Ag IA.rapid Ql (Resp) Not detected Normal Not Detected [facility] Comment on above: Result Comment: The ComponentLab? System for Rapid Detection of SARS-CoV-2 is [...] or revoked sooner. Performed By: #### 1 [id number], 80541766, [id number] ####[address] [place] [address] Respiratory Panel by PCRon Adenovirus DNA JOLANTA+non-probe Ql (Nph) Not detected Normal [facility] Comment on above: Result Comment: Test ing was performed using nucleic acid amplification including Influenza A, Influenza A H1, Influenza A H3, Influenza B, RSV A, RSV B, Adenovirus, Human Metapneumovirus, Parainfluenza 1,2,3, and 4, Rhinovirus, Bordetella parapertussis/bronchiseptica, Bordetella holmesii, and Bordetella pertussis. Performed By: #### 1 [id number], 44566849, [id number] ####[address] [address] B. parapertussis DNA JOLANTA+probe Ql (Upper resp) Not detected Normal Not Detected [facility] Comment on above: Performed By: #### 1 [id number], 48524088, 9883753610 ####[address] [place] [address] B. pertussis DNA JOLANTA+probe Ql (Upper resp) Not detected Normal Not Detected [facility] Comment on above: Performed By: #### 1 955137415, 53848820, 4285959847 ####[address] [place] [address] FLUAV H1 RNA JOLANTA+non-probe Ql (Nph) Not detected Normal [facility] Comment on above: Performed By: #### 1 391832619, 04340679, 8756929196 ####[address] [place] [address] FLUAV H3 RNA JLOANTA+non-probe Ql (Nph) Not detected Normal [facility] Comment on above: Performed By: #### 1 541573329, 50866788, 0687400043 ####[address] [address] FLUAV RNA JOLANTA+non-probe Ql (Nph) Not detected Normal [facility] Comment on above: Performed By: #### 1 681112836, 45050569, 0266693747 ####[facility] [address] [place] [address] FLUBV RNA JOLANTA+non-probe Ql (Nph) Not detected Normal [facility] Comment on above: Performed By: #### 1 856655341, 27092988, 4083868432 ####[address] [place] [address] Human Metapneumovirus Not detected Normal F [facility] Comment on above: Result Comment: This test result should be correlated with clinical presentations and medical history by a healthcare provider to determine its clinical significance. Performed By: #### 1 [id number], 36569325, [id number] ####[address] [address] Parainfluenza virus 1 RNA JOLANTA+non-probe Ql (Nph) Not detected Normal [facility] Comment on above: Performed By: #### 1 835702082, 62691424, 9366510850 ####[address] [place] [address] Parainfluenza virus 2 RNA JOLANTA+non-probe Ql (Nph) Not detected Normal [facility] Comment on above: Performed By: #### 1 787577149, 34686873, 2606495355 ####[address] [place] [address] Parainfluenza virus 3 RNA JOLANTA+non-probe Ql (Nph) Not detected Normal [facility] Comment on above: Performed By: #### 1 598737132, 21586216, 0695370639 ####[address] [place] [address] Parainfluenza virus 4 RNA JOLANTA+non-probe Ql (Nph) Not detected Normal [facility] Comment on above: Performed By: #### 1 836814393, 21554718, 1523688237 ####[facility] [address] [place] [address] Resp Panel Intrl QC Pass Normal [facility] Comment on above: Performed By: #### 1 [id number], 97785847, 1667877344 ####[facility] [address] [place] [address] Rhinovirus+Enterovirus RNA JOLANTA+non-probe Ql (Nph) Not detected Normal [facility] Comment on above: Performed By: #### 1 724752394, 57596374, 3950803270 ####[facility] [address] [place] [address] RSV RNA JOLANTA+non-probe Ql (Nph) Not detected Normal [facility] Comment on above: Performed By: #### 1 [id number], 58408636, 3378587878 ####[address] [place] [address] Troponin 9 Hr.on 03-10-2023 Troponin I.cardiac [Mass/Vol] 12.60 pg/mL Low 15.90-38.4 0 [facility] Comment on above: Result Comment: The 95% CI (Confidence Interval) PPV (Positive Predictive Value) for myocardial infarction in females is 38 pg/mL, in males 51 pg/mL. The results should be used in conjunction with clinical conditions of myocardial infarction.(Access High Sensitivity Troponin I Instructions For Use, Milagro Wander, January 2018) Performed By: #### 1 [id number], [id number] ####[facility] [address] [place] [address] eGFRon 03-10-2023 GFR/1.73 sq M.predicted among non-blacks MDRD (S/P/Bld) [Vol rate/Area] 49 mL/min/1.73 m2 Low >=59 [facility] Comment on above: Order Comment: Order added by Discern Expert. Result Comment: Inspector Multifocal Lens laisha kidney disease could be indicated at eGFR's of less than 60 mL/min/1.73m2. Kidney failure is indicated at less than 15 mL/min/1.73m2. Performed By: #### 2 611522, 74476352, 9138983, 3278650 ####[facility] [address] [place] [address] Auto Diffon 03-09-2023 Basophils/100 WBC (Bld) 1.1 % Normal 0.0-2.0 [facility] Comment on above: Order Comment: Order Added by Discern Expert. Performed By: #### 1 9388508, 68803286, 18085060, 5263837, 1027750, 90078684, 8557488 ####[address] [address] Basophils/Leukocytes Auto (Bld) [Pure # fraction] 0.1 E9/L Normal 0.0-0.2 [facility] Comment on above: Order Comment: Order Added by Discern Expert. Performed By: #### 1 9382904, 95490450, 90299671, 5859645, 8582350, 15095509, 8970326 ####[address] [address] Eosinophils/100 WBC (Bld) 4.1 % Normal 0.0-8.0 [facility] Comment on above: Order Comment: Order Added by Discern Expert. Performed By: #### 1 7421118, 48043623, 52852092, 2875767, 2536656, 04055483, 6985918 ####[address] [address] Eosinophils/Leukocytes Auto (Bld) [Pure # fraction] 0.3 E9/L Normal 0.0-0.5 [facility] Comment on above: Order Comment: Order Added by Discern Expert. Performed By: #### 1 5445583, 82404111, 99044110, 9133310, 0112078, 59661521, 1433087 ####[address] [address] Lymphocytes/100 WBC (Bld) 18.5 % Normal 14.0-50.0 [facility] Comment on above: Order Comment: Order Added by Discern Expert. Performed By: #### 1 6452288, 08334233, 34949582, 4771654, 2085627, 52630016, 5682287 ####[address] [place] [address] Lymphocytes/Leukocytes Auto (Bld) [Pure # fraction] 1.5 E9/L Normal 1.0-4.0 [facility] Comment on above: Order Comment: Order Added by Discern Expert. Performed By: #### 1 5030040, 61215884, 39275241, 4608552, 1656748, 11321984, 5079419 ####[address] [place] [address] Monocytes/100 WBC (Bld) 7.4 % Normal 4.0-14.0 [facility] Comment on above: Order Comment: Order Added by Discern Expert. Performed By: #### 1 0919747, 81757357, 54618794, 1080684, 2388984, 50013703, 6929219 ####[address] [address] Monocytes/Leukocytes Auto (Bld) [Pure # fraction] 0.6 E9/L Normal 0.2-1.0 [facility] Comment on above: Order Comment: Order Added by Discern Expert. Performed By: #### 1 6386455, 65136069, 31671372, 4032198, 0752570, 57394799, 8269166 ####[address] [address] Neutrophils/100 WBC (Bld) 68.9 % Normal 36.0-75.0 [facility] Comment on above: Order Comment: Order Added by Discern Expert. Performed By: #### 1 1006344, 86728733, 12006650, 1865125, 4271966, 95951813, 5303245 ####[address] [place] [address] Neutrophils/Leukocytes Auto (Bld) [Pure # fraction] 5.6 E9/L Normal 2.0-7.5 [facility] Comment on above: Order Comment: Order Added by Discern Expert. Performed By: #### 1 9969255, 30140931, 71365501, 5615318, 9780971, 29116468, 5581385 ####[facility] [address] [place] [address] BMPon 03-09-2023 Creatinine [Mass/Vol] 1.4 mg/dL High 0.5-1.3 [facility] Comment on above: Performed By: #### 1 2068926, 75774700, 85528883, 5205626, 0953300, 70943453, 2061961 ####[facility] [address] [place] [address] Urea nitrogen [Mass/Vol] 28 mg/dL High 5-21 [facility] Comment on above: Performed By: #### 1 1680807, 91738057, 95761703, 2695499, 5683980, 36209971, 3053528 ####[facility] [address] [place] [address] Urea nitrogen/Creatinine [Mass ratio] 20 No Units Normal 10-20 [facility] Comment on above: Performed By: #### 1 7981615, 12136603, 12439796, 2307590, 4905752, 40149202, 9461111 ####[facility] [address] [place] [address] Anion gap [Moles/Vol] 12 mmol/L Normal 6-16 [facility] Comment on above: Performed By: #### 1 8303562, 74063376, 68353124, 7071656, 9957678, 14479526, 3376341 ####[facility] [address] [place] [address] Calcium [Mass/Vol] 8.8 mg/dL Low 8.9-11.1 [facility] Comment on above: Performed By: #### 1 4735355, 95144378, 57152427, 0201292, 1637904, 39172468, 1555442 ####[facility] [address] [place] [address] Chloride [Moles/Vol] 99 mmol/L Low 101-111 [facility] Comment on above: Performed By: #### 1 9255070, 35947050, 17549207, 9526936, 2551787, 42553811, 5032581 ####[facility] [address] [place] [address] CO2 [Moles/Vol] 29 mmol/L Normal 21-31 [facility] Comment on above: Performed By: #### 1 4066161, 84484958, 07957400, 4794385, 1966413, 26527157, 6741987 ####[facility] [address] [place] [address] Glucose [Mass/Vol] 200 mg/dL High 55-199 [facility] Comment on above: Result Comment: If t his glucose result represents a fasting glucose, interpretation should refer to the following reference range: 55-99 mg/dL Performed By: #### 1 6926869, 54196038, 12570975, 3461204, 7853009, 53389012, 8755931 ####[facility] [address] [place] [address] Potassium [Moles/Vol] 4.4 mmol/L Normal 3.5-5.3 [facility] Comment on above: Performed By: #### 1 3240313, 09269888, 40850799, 4593310, 3769474, 34013226, 4830949 ####[facility] [address] [place] [address] Sodium [Moles/Vol] 136 mmol/L Normal 135-145 [facility] Comment on above: Performed By: #### 1 6449465, 51107892, 73820076, 8240149, 0546743, 23152254, 2592401 ####[facility] [address] [place] [address] BNPon 03-09-2023 Natriuretic peptide B (Bld) [Mass/Vol] 97 pg/mL High 5-80 [facility] Comment on above: Performed By: #### 1 3581200, 47404720, 53275210, 2156032, 6265562, 81897981, 6036534 ####[facility] [address] [place] [address] CBC w/ Auto Diffon 3 Erythrocyte distribution width (RBC) [Ratio] 15.8 % High 10.9-14.2 [facility] Comment on above: Performed By: #### 1 4863228, 48554692, 95116975, 3968452, 8306385, 28761276, 7999799 ####[facility] [address] [place] [address] Hematocrit (Bld) [Volume fraction] 29.2 % Low 37.7-49.0 [facility] Comment on above: Performed By: #### 1 0305213, 71313792, 56947594, 0889334, 5847217, 78546349, 0656013 ####[facility] [address] [place] [address] Hemoglobin (Bld) [Mass/Vol] 9.5 g/dL Low 13.5-17.5 [facility] Comment on above: Performed By: #### 1 8775658, 48732691, 93293131, 3369378, 8279122, 43966143, 7110270 ####[facility] [address] [place] [address] MCH (RBC) [Entitic mass] 27.4 pg Normal 27.0-34.0 [facility] Comment on above: Performed By: #### 1 8402543, 61354890, 51910734, 1377676, 6136218, 75956430, 8473724 ####[address] [place] [address] MCHC (RBC) [Mass/Vol] 32.7 g/dL Normal 31.4-36.0 [facility] Comment on above: Performed By: #### 1 5962661, 15830360, 43215172, 9939927, 8938905, 51051882, 6867619 ####[address] [place] [address] MCV (RBC) [Entitic vol] 83.6 fL Normal 80.0-100.0 [facility] Comment on above: Performed By: #### 1 9882579, 84643855, 99141155, 3550318, 3462990, 81394245, 0433163 ####[address] [place] [address] Platelet mean volume (Bld) [Entitic vol] 6.4 fL Normal 6.4-10.8 [facility] Comment on above: Performed By: #### 1 9235563, 04287503, 72367872, 5056305, 3332144, 12758552, 9808020 ####[address] [address] Platelets (Bld) [#/Vol] 276.0 E9/L Normal 150.0-500. 0 [facility] Comment on above: Performed By: #### 1 0363767, 49888377, 56615071, 4650315, 9846159, 22147638, 2026644 ####[address] [address] RBC (Bld) [#/Vol] 3.5 E12/L Low 4.3-5.9 [facility] Comment on above: Performed By: #### 1 7261752, 20033456, 94704466, 5600582, 1014050, 03884781, 2052752 ####[address] [place] [address] WBC corrected for nucl RBC Auto (Bld) [#/Vol] 8.2 E9/L Normal 4.0-11.0 [facility] Comment on above: Performed By: #### 1 2914195, 94013061, 93037622, 5516318, 4241468, 92764325, 0018139 ####[address] [address] [address] Head or Brain w/o Contras ton 03-09-2023 CT Head or Brain w/o Contrast Normal [facility] Consent for Treatmenton 0 Consent for Treatment [id number]#1.00TIFF Normal [facility] Consent for Treatment [id number]#1.00TIFF Normal [facility] ED Clinical Summaryon 2022 ED Clinical Summary Normal Mikee maría [facility] ED Note-Physicianon 03-09-20 ED Note-Physician Normal [facility] Comment on above: Result Comment: Elec tronically Signed By: Xavi BROUSSARD, Tyrel\.br\Date and Time Signed: 03/09/23 18:43 EDT ED Patient Education Noteon 03-09-2023 ED Patient Education Note Normal [facility] ED Patient Summaryon 023 ED Patient Summary Normal [facility] Monitor Recordon 03-09-2023 Monitor Record [id number]#1.00TIFF Normal [facility] Monitor Record [id number]#1.00TIFF Normal [facility] PT & PTTon 03-09-2023 aPTT Coag (PPP) [Time] 37.6 second(s) High 25.1-36.5 [facility] Comment on above: Result Comment: Para meter 15 days - 4 weeks 1 - 5 months 6 - 11 months 1 - 5 years 6 - 10 years 11 - 17 years PTT Mean: 35.4 (27.6-45.6) Mean: 33.5 (24.8-40.7) Mean: 32.4 (25.1-40.7) Mean: 31.6 (24.0-39.2) Mean: 31.6 (26.9-38.7) Mean: 31.0 (24.6-38.4) Pediatric Reference ranges were obtained from a study by bob Cortés al. prepared from 1437 samples obtained at 7 different centers using the same coagulation reagent and instrumentation as [facility]. Currently there are no coagulation studies available worldwide for children to 14 days, and no normal ranges. Heparin therapeutic range (represented by Anti-Factor Xa activity of 0.2 - 0.4 U/mL) corresponds to PTT of 56.6 - 109.0 sec. Performed By: #### 1 8264013, 83542414, 10756843, 0768340, 0942167, 31129379, 1678555 ####[facility] [address] [place] [address] INR Coag (PPP) [Relative time] 1.4 {INR} Invalid Interpretation Code [facility] Comment on above: Result Comment: INR results are specifically intended to assess patients stabilized on long-term Anticoagulation therapy suggested INR?s ?Less Intensive Anticoagulation? 2.0 ? 3.0Conventional Range 3.0 ? 4.5 Performed By: #### 1 7607211, 13553837, 34299142, 1241768, 2853374, 54278323, 5699930 ####[facility] [address] [place] [address] PT Coag (PPP) [Time] 15.9 second(s) High 9.4-12.5 [facility] Comment on above: Result Comment: 15 [...] the same coagulation reagent and instrumentation as [facility]. Currently there are no coagulation studies available worldwide for children to 14 days, and no normal ranges. Performed By: #### 1 0714420, 03352744, 53206455, 6183273, 2197471, 20627597, 9972748 ####[facility] [address] [place] [address] Pre-Arrival Noteon 3 Pre-Arrival Note Normal [facility] Progress Note-Nurseon 2022 Progress Note-Nurse patient unsure of ho me medications. States my daughter Zackary is a nurse and she manages all of my medications, you can give her a call. This RN attempted to call twice. No answer. Voicemail left. Normal [facility] Troponin 0 Hr.on 03-09-2023 Troponin I.cardiac [Mass/Vol] 14.30 pg/mL Low 15.90-38.4 0 [facility] Comment on above: Result Comment: The 95% CI (Confidence Interval) PPV (Positive Predictive Value) for myocardial infarction in females is 38 pg/mL, in males 51 pg/mL. The results should be used in conjunction with clinical conditions of myocardial infarction.(Over[employer]fm High Sensitivity Troponin I Instructions For Use, [place], January 2018) Performed By: #### 1 1721333, 98165039, 24972976, 3095071, 7895158, 76223839, 9872885 ####[facility] [address] [place] [address] Troponin 3 Hr.on 03-09-2023 Troponin I.cardiac [Mass/Vol] 16.60 pg/mL Normal 15.90-38.4 0 [facility] Comment on above: Result Comment: The 95% CI (Confidence Interval) PPV (Positive Predictive Value) for myocardial infarction in females is 38 pg/mL, in males 51 pg/mL. The results should be used in conjunction with clinical conditions of myocardial infarction.(Access High Sensitivity Troponin I Instructions For Use, [place], January 2018) Performed By: #### 1 [id number] ####[facility] [address] [place] [address] Troponin 6 Hr.on 03-09-2023 Troponin I.cardiac [Mass/Vol] 14.70 pg/mL Low 15.90-38.4 0 [facility] Comment on above: Result Comment: The 95% CI (Confidence Interval) PPV (Positive Predictive Value) for myocardial infarction in females is 38 pg/mL, in males 51 pg/mL. The results should be used in conjunction with clinical conditions of myocardial infarction.(Access High Sensitivity Troponin I Instructions For Use, Milagro Wander, January 2018) Performed By: #### 1 [id number] ####[facility] [address] [place] [address] XR Chest Single Viewon 03-09 XR Chest Single View Normal Fish er [facility] eGFRon 03-09-2023 GFR/1.73 sq M.predicted among non-blacks MDRD (S/P/Bld) [Vol rate/Area] 53 mL/min/1.73 m2 Low >=59 [facility] Comment on above: Order Comment: Order added by Discern Expert. Result Comment: Inspector Multifocal Lens laisha kidney disease could be indicated at eGFR's of less than 60 mL/min/1.73m2. Kidney failure is indicated at less than 15 mL/min/1.73m2. Performed By: #### 1 6186689, 98916080, 27593467, 5308230, 7602480, 79147603, 1438163 ####[address] [place] [address] CBC w/Indiceson 03-02-2023 Erythrocyte distribution width (RBC) [Ratio] 15.5 % High 10.9-14.2 [facility] Comment on above: Performed By: #### 2 058903, 7976419, 27873621, 2949603, 9926102, 3484115 ####[address] [place] [address] Hematocrit (Bld) [Volume fraction] 29.4 % Low 37.7-49.0 [facility] Comment on above: Performed By: #### 2 570431, 5799169, 70903848, 2228742, 9314091, 3604114 ####[address] [place] [address] Hemoglobin (Bld) [Mass/Vol] 9.8 g/dL Low 13.5-17.5 [facility] Comment on above: Performed By: #### 2 227575, 3474838, 09452319, 5459330, 1941008, 4019068 ####[facility] [address] [address] MCH (RBC) [Entitic mass] 28.4 pg Normal 27.0-34.0 [facility] Comment on above: Performed By: #### 2 740865, 2360803, 31685993, 4229313, 7998293, 9605329 ####[address] [address] MCHC (RBC) [Mass/Vol] 33.2 g/dL Normal 31.4-36.0 [facility] Comment on above: Performed By: #### 2 737148, 3503644, 98733016, 2099066, 8269816, 1158031 ####[address] MCV (RBC) [Entitic vol] 85.6 fL Normal 80.0-100.0 [facility] Comment on above: Performed By: #### 2 665952, 2308292, 19449662, 4633464, 1517200, 5281960 ####[address] [address] Platelet mean volume (Bld) [Entitic vol] 6.7 fL Normal 6.4-10.8 [facility] [facility] Comment on above: Performed By: #### 2 388817, 2670153, 33723259, 1412620, 5107818, 7281076 ####[place] [id number] Platelets (Bld) [#/Vol] 272.0 E9/L Normal 150.0-500. 0 [facility] Comment on above: Performed By: #### 2 899669, 6785856, 08961501, 9090362, 5041908, 1928799 ####[place] [id number] RBC (Bld) [#/Vol] 3.4 E12/L Low 4.3-5.9 [facility] Comment on above: Performed By: #### 2 472117, 3142327, 38350093, 8784636, 9717031, 1816228 ####[facility] [address] [place] [address] WBC corrected for nucl RBC Auto (Bld) [#/Vol] 9.3 E9/L Normal 4.0-11.0 [facility] Comment on above: Performed By: #### 2 208807, 3028514, 72046051, 8779556, 9599866, 3775341 ####[facility] [address] [place] [address] CHEMISTRYOrdered By: SYSTEM SYSTEM on 03-02-2023 Albumin [...] 63 mL/min/1.73 m2 Normal >=59mL/min /1.73 m2 [facility] Chem S Comment on above: Interpretive Data: C hronic kidney disease could be indicated at eGFR's of less than 60 mL/min/1.73m2. Kidney failure is indicated at less than 15 mL/min/1.73m2. Globulin (S) [Mass/Vol] 3.9 g/dL Normal 1.4 - 4.0 gm/dL [facility] Remisol Glucose [Mass/Vol] 302 mg/dL High 55 - 199 mg/dL [facility] Comment on above: Interpretive Data: I [...] 21 mg/dL Normal 5 - 21 mg/dL [facility] Remisol Urea nitrogen/Creatinine [Mass ratio] 18 mg/mg Normal 10 - 20 [facility] CMPon 03-02-2023 Albumin [Mass/Vol] 3.5 g/dL Normal 3.3-5.0 [facility] Comment on above: Performed By: #### 2 388689, 6747021, 55793969, 9731723, 1311340, 8736946 ####[facility] [address] [place] [address] Albumin/Globulin (S) [Mass conc ratio] 0.9 Low 1.1-2.2 [facility] Comment on above: Performed By: #### 2 553365, 4997965, 15847691, 0997006, 3203237, 8645794 ####[facility] [address] [place] [address] ALP [Catalytic activity/Vol] 83 Int._Unit/L Normal 21-98 [facility] Comment on above: Performed By: #### 2 528618, 7408545, 76720591, 7656101, 4987962, 2278639 ####[facility] [address] [place] [address] ALT No additional P-5'-P [Catalytic activity/Vol] 10 Int._Unit/L Normal 6-46 [facility] Comment on above: Performed By: #### 2 591990, 0180897, 94971749, 2513094, 4927628, 2354605 ####[facility] [address] [place] [address] Anion gap [Moles/Vol] 12 mmol/L Normal 6-16 [facility] Comment on above: Performed By: #### 2 719326, 1640375, 54199563, 4027259, 2728199, 1619410 ####[facility] [address] [place] [address] AST [Catalytic activity/Vol] 20 Int._Unit/L Normal 5-43 [facility] Comment on above: Performed By: #### 2 770404, 0314455, 68597774, 7078932, 9330140, 0396312 ####[facility] [address] [place] [address] Bilirubin [Mass/Vol] 0.5 mg/dL Normal 0.0-1.1 [facility] Comment on above: Performed By: #### 2 503603, 2906789, 49768598, 1855152, 4091821, 6073609 ####[facility] [address] [place] [address] Calcium [Mass/Vol] 8.8 mg/dL Low 8.9-11.1 [facility] Comment on above: Performed By: #### 2 116032, 0907962, 43165931, 1391650, 7590211, 8170826 ####[facility] [address] [place] [address] Chloride [Moles/Vol] 108 mmol/L Normal 101-111 [facility] Comment on above: Performed By: #### 2 561582, 4186080, 07305704, 0436900, 3502209, 1946836 ####[facility] [address] [place] [address] CO2 [Moles/Vol] 24 mmol/L Normal 21-31 [facility] Comment on above: Performed By: #### 2 304353, 6198586, 13156012, 0165289, 5029060, 8555657 ####[facility] [address] [place] [address] Creatinine [Mass/Vol] 1.2 mg/dL Normal 0.5-1.3 [facility] Comment on above: Performed By: #### 2 151970, 0167083, 09594692, 4448577, 5997852, 4206262 ####[facility] [address] [place] [address] Globulin (S) [Mass/Vol] 3.9 g/dL Normal 1.4-4.0 [facility] Comment on above: Performed By: #### 2 132302, 7424090, 40047838, 6444613, 0020144, 0909833 ####[facility] [address] [place] [address] Glucose [Mass/Vol] 302 mg/dL High 55-199 [facility] Comment on above: Result Comment: If t his glucose result represents a fasting glucose, interpretation should refer to the following reference range: 55-99 mg/dL Performed By: #### 2 832648, 1942628, 93363929, 4343999, 3727019, 8936960 ####[facility] [address] [place] [address] Potassium [Moles/Vol] 4.6 mmol/L Normal 3.5-5.3 [facility] Comment on above: Performed By: #### 2 828741, 6830724, 53287901, 0372463, 3805363, 8368325 ####[facility] [address] [place] [address] Protein [Mass/Vol] 7.4 g/dL Normal 6.0-7.8 [facility] Comment on above: Performed By: #### 2 656068, 1060141, 86427119, 6761849, 2982347, 7629532 ####[facility] [address] [place] [address] Sodium [Moles/Vol] 139 mmol/L Normal 135-145 [facility] Comment on above: Performed By: #### 2 263384, 8373316, 66867470, 4997485, 0997311, 1621756 ####[place] [address] [place] [address] Urea nitrogen [Mass/Vol] 21 mg/dL Normal 5-21 [facility] Comment on above: Performed By: #### 2 024617, 7536091, 13043951, 8613814, 7816892, 1908405 ####[facility] [address] [place] [address] Urea nitrogen/Creatinine [Mass ratio] 18 No Units Normal 10-20 [facility] Comment on above: Performed By: #### 2 810081, 6891302, 15724097, 8237111, 5462515, 0852924 ####[facility] [address] [place] [address] Consent for Treatmenton 02-03 Consent for Treatment [id number]:127 Normal [facility] Folateon 03-02-2023 Folate [Mass/Vol] 14.7 ng/mL Normal >=6.7 [facility] Comment on above: Performed By: #### 2 836645, 0571686, 19930922, 6699140, 1633698, 7771205 ####[facility] [address] [place] [address] HEMATOLOGYOrdered By: Jane Rasmussen on 03-02-2023 Erythrocyte distribution width (RBC) [Ratio] 15.5 % High 10.9 - 14.2 % [facility] HemeAutoSS Hematocrit (Bld) [Volume fraction] 29.4 % Low 37.7 - 49.0 % [facility]eAutoSS Hemoglobin (Bld) [Mass/Vol] 9.8 g/dL Low 13.5 - 17.5 gm/dL [facility]eAutoSS MCH (RBC) [Entitic mass] 28.4 pg Normal 27.0 - 34.0 pg [facility]eAutoSS MCHC (RBC) [Mass/Vol] 33.2 g/dL Normal 31.4 - 36.0 gm/dL [facility]eAutoSS MCV (RBC) [Entitic vol] 85.6 fL Normal 80.0 - 100.0 fL [facility]eAuto[facility] Platelet mean volume (Bld) [Entitic vol] 6.7 fL Normal 6.4 - 10.8 fL [facility]eAutoSS Platelets (Bld) [#/Vol] 272.0 E9/L Normal 150.0 - 500.0 E9/L [facility]eAutoSS RBC (Bld) [#/Vol] 3.4 E12/L Low 4.3 - 5.9 E12/L [facility]eAutoSS WBC corrected for nucl RBC Auto (Bld) [#/Vol] 9.3 E9/L Normal 4.0 - 11.0 E9/L [facility]eAutoSS Physician Orderon 03-02-2023 Physician Order [id number]#[id number]:127 Normal [facility] TSHon 03-02-2023 TSH Qn 9.87 m[IU]/L High 0.34-5.60 [facility] Comment on above: Performed By: #### 2 369089, 5831103, 51912819, 4287183, 3835569, 1980921 ####[facility] [address] [place] [address] Vit B12on 03-02-2023 Cobalamin (Vitamin B12) [Mass/Vol] 265 pg/mL Normal 50-1500 [facility] Comment on above: Performed By: #### 2 825019, 6067156, 09503445, 8863892, 8806764, 9766417 ####[facility] [address] [place] [address] eGFRon 03-02-2023 GFR/1.73 sq M.predicted among non-blacks MDRD (S/P/Bld) [Vol rate/Area] 63 mL/min/1.73 m2 Normal >=59 [facility] Comment on above: Order Comment: Order added by Discern Expert. Result Comment: Inspector Multifocal Lens laisha kidney disease could be indicated at eGFR's of less than 60 mL/min/1.73m2. Kidney failure is indicated at less than 15 mL/min/1.73m2. Performed By: #### 2 467747, 4644404, 73266516, 0937507, 8776936, 9007335 ####[facility] [address] [place] [address] Physician Orderon 02-26-2023 Physician Order [id number]#[id number]:127 Normal [facility] Physician Orderon 02-23-2023 Physician Order [id number]#[id number]:127 Normal [facility] Office Visiton 02-20-2023 Follow-up visit [id number] Daniel Chambers 1950 M Date Provider Department Center 02/20/2023 [facility] None No family history on file Level of Service:[address] [place] OFFICE/OUTPATIENT NEW MODERATE MDM 45-59 MINUTES Reason for Visit and Comments: Memory Loss [66] Normal [facility] Progress Noteon 02-20-2023 Progress Note [facility] [address] [place] [address] Dept: [phone] Dept Loc: [phone] Visit type: [facility] Initial Assessment Visit Date: 02/21/2023 Reason for Visit: Memory Loss Assessment and Plan 1. Memory loss - CBC - Comprehensive metabolic panel - Vitamin B12 - Folate - TSH - CT head wo IV contrast 2. Parkinsonism, unspecified Parkinsonism type 3. Bipolar disorder, in partial remission, most recent episode mixed (CMS/HCC) ([facility]) 4. Polypharmacy - Mental status change with [...] burden. Will discuss in more detail at [facility] with pt and family. Follow up in about 4 weeks (around 03/20/2023) for virtual summary visit. Subjective HPI: José Luis Faulkner is a 72 y.o. male who presents to the [facility] for a comprehensive geriatric [...] (MSSA), CHF, urinary retention, previous LAWANDA, h/o DE, bladder cancer- stage 0, chronic diarrhea Pt [...] concerns and functional deficits. Call to daughter Zackary today. Short term memory loss: Examples of [...] was referred to a stroke doctor in [place] but doesn't want to go history of head trauma- No, history of seizures- No, history of toxin exposures- No, history o (more content not included)... 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 Activities: rides scooter outside, visits grandson/family, watches tv/movies/sports, goes to car shows with cousin Exercise: none Finances: has adequate savings, gets Social Security income, [facility] Power of Snowmaker: Yes: spouse- Alicia, then daughter Zackary Financial Power of Snowmaker: Yes: spouse- Alicia, then daughter Zackary Living Will: Yes Guardian: No Code Status: [...] Diet Healthy Nutrition for Older Adults - [facility] Injury Prevention/Home Safety [facility] Home Safety Checklist [facility] Mobility for Adults Falls Prevention Conversation Guide for Caregivers Medications Medication Safety/Dispensers Sleep Getting a Good Night's Sleep ([facility]) Sleep Hygiene Personal Care Personal Care Tips Bathing Tips Normal [place] [address]on 02-16-2023 36 Scheduled 02/20/2023. Normal [place] [address]on 02-15-2023 36 Name of Caller: Eduard burns Contact Reason for Appointment: New Patient Office Name: [facility] Services Medication Refills need, if any: na Medication Name: Na Normal [facility] Consent for Treatmenton 02-02 Consent for Treatment [id number]#[id number]:127 Normal [facility] CHEMISTRYOrdered By: SYSTEM SYSTEM on 11-24-2022 Creatinine [Mass/Vol] 1.3 mg/dL Normal 0.5 - 1.3 mg/dL [facility] Remisol GFR/1.73 sq M.predicted among non-blacks MDRD (S/P/Bld) [Vol rate/Area] 58 mL/min/1.73 m2 Low >=59mL/min /1.73 m2 [facility] Chem S Urea nitrogen [Mass/Vol] 32 mg/dL High 5 - 21 mg/dL [facility] Remisol Office Visit (Neuro-Movement )on 11-20-2022 Follow-up visit [...] 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 Pant (more content not included)... Normal [facility] Follow-up visit Provider Impressions Venkatesh Gil [...] appropriate E/M code for this encounter is /77587,. Diagnoses/Problems Assessed Transient neurological symptoms (781.99) (R29.818) Parkinsonism (332.0) (G20) Orders Parkinsonism Renew: Carbidopa-Levodopa 25-100 MG Oral Tablet; TAKE 1.5 TABLET 4 times daily Transient neurological symptoms Neurolo (more content not included)... 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) Class 1 obesity with body mass index (BMI) of 32.0 to 32.9 in adult (278.00,V85.32) (E66.9,Z68.32) Former smoker (V15.82) (Z87.891) QUIT 11/2001 Abnormal involuntary movements (781.0) (R25.9) Orders Class 1 obesity with body mass index (BMI) of 32.0 to 32.9 in adult Healthy Weight Tips; Status:Complete - Retrospective Authorization; Done: [id number] Some eating tips that can help you lose weight.; Status:Complete - Retrospective Authorization; Done: [id number] Diabetes mellitus, Ischemic cardiomyopathy Start: Jardiance 10 MG Oral Tablet; TAKE 1 TABLET BY MOUTH ONCE DAILY Hypertension, essential, benign Renew: amLODIPine Besylate 5 MG Oral Tablet; TAKE 1 TABLET BY MOUTH EVERY DAY Hypothyroidism, adult Renew: Levothyroxine Sodium 150 MCG Oral Capsule; TAKE 1 CAPSULE BY MOUTH EVERY MORNING BEFORE BREAKFAST ON EMPTY STOMACH SocHx: Former smoker Tobacco Use Screening; Status:Complete; Done: [id number] Ventricular tachycardia (paroxysmal) IO EKG Electrocardiogram- 12 Lead; Status:Complete; Done: [id number] Patient Instructions Please bring all medicines, vitamins, [...] 6-7 months Device check as directed per [facility] protocol Chief Complaint JOSÉ LUIS GIL [...] medication with (more content not included)... Normal [facility] Tobacco Screening.on 023 Adult depression screening assessment No [facility] [place] [address] DO Work Phone: Fall risk assessment a) No falls within the last year [facility] lk 600 DO Work Phone: Tobacco use status [facility] b) No [facility] lk 600 DO Work Phone: DATSCAN INJECTIONon 08-31-19 23 DATSCAN INJECTION Patient Name: JOSÉ LUIS GIL STUDY: DATSCAN INJECTION; DATSCAN IOFLUPANE IODINE 123; 08/30/2022 2:43 pm INDICATION: right rest tremor, asymmetric rigidity and bradykinesia. on Abilify, parkinson's disease vs drug-induced parkinsonism G20: Parkinsonism. COMPARISON: None. ACCESSION NUMBER(S): [id number]; [id number] ORDERING CLINICIAN: FRANCISCO CLINTON TECHNIQUE: DIVISION OF [...] as stated. This study was interpreted at [facility], [place], [place]. Electronically signed by: MIRZA TRINH MD Normal [facility] No Panel Informationon 08-30 FINAL REPORT Interpreted by: MIRZA TRINH MD and LUCILA RODRIGUEZ MD 08/30/22 14:54 Patient Name: JOSÉ LUIS GIL STUDY: DATSCAN INJECTION; DATSCAN IOFLUPANE IODINE 123; 08/30/2022 2:43 pm INDICATION: right rest tremor, asy Normal [facility] [address] Work Phone: Office Visit (Neuro-Movement )on [...] appropriate [place] [address] . Diagnoses/Problems Assessed Parkinsonism (332.0) (G20) Abnormal involuntary movements (781.0) (R25.9) RLS (restless legs syndrome) (333.94) (G25.81) Orders Atheroscle (more content not included)... Normal [facility] Activated partial thrombopla stin time (aPTT) in platelet poor plasma by coagulation aOrdered By: Andi Ware on 07-25-2022 aPTT Coag (PPP) [Time] 29.6 s 25.1-36.5 Fi [facility] Glucose Glucometer (BldC) [M ass/Vol]Ordered By: Andi Ware on 07-25-2022 Glucose [Mass/Vol] 194 mg/dL [facility] Comment on above: Random Glucose Refer ence Range is dependent on time and content of last meal. Glucose of more than 200 mg/dL in a nonstressed, ambulatory subject supports the diagnosis of Diabetes Mellitus. Laboratory - CoagulationOrde red By: Andi Ware on 07-25-2022 PT Coag (PPP) [Time] 11.4 s 9.0-12.9 [facility] No Panel InformationOrdered By: Andi Ware on 07-25-2022 Bedside Glucose Comment Glu2: cleaned meter [facility] Platelet poor plasma interna tional normalized ratio (INR) by coagulation assay (relatOrdered By: Andi Ware on 07-25-2022 INR Coag (PPP) [Relative time] 1.0 {INR} [facility] Comment on above: INR Therapeutic Rang e [...] Coag (PPP) [Time] 34.3 s 25.1-36.5 Fi [facility] Basophils Auto (Bld) [#/Vol] Ordered By: Andi Ware on 07-11-2022 Basophils (Bld) [#/Vol] 0.1 10*3/uL 0.0-0.2 [facility] Basophils/100 WBC Auto (Bld) Ordered By: Andi Ware on 07-11-2022 Basophils/100 WBC (Bld) 1.0 % . [facility] Creatinine and Glomerular fi ltration rate.predicted panel (S/P/Bld)Ordered By: Andi Ware on 07-11-2022 Creatinine [Mass/Vol] 1.55 mg/dL 0.64-1.27 [facility] Eosinophils Auto (Bld) [#/Vo l]Ordered By: Andi Ware on 07-11-2022 Eosinophils (Bld) [#/Vol] 0.2 10*3/uL 0.0-0.45 [facility] Eosinophils/100 WBC Auto (Bl d)Ordered By: Andi Ware on 07-11-2022 Eosinophils/100 WBC (Bld) 2.9 % . [facility] Erythrocyte distribution wid th Auto (RBC) [Ratio]Ordered By: Andi Ware on 07-11-2022 Erythrocyte distribution width (RBC) [Ratio] 16.3 % 12.0-14.8 [facility] Estimated glomerular filtrat ion rate (GFR) non- AmericanOrdered By: Andi Ware on 07-11-2022 GFR/1.73 sq M.predicted among non-blacks MDRD (S/P/Bld) [Vol rate/Area] 44 mL/Min [facility] Hematocrit Auto (Bld) [Volum e fraction]Ordered By: Andi Ware on 07-11-2022 Hematocrit (Bld) [Volume fraction] 32.9 % 38.8-50.0 [facility] Hemoglobin [Mass/volume] in BloodOrdered By: Andi Ware on 07-11-2022 Hemoglobin (Bld) [Mass/Vol] 10.8 g/dL 13.0-17.0 [facility] Laboratory - CoagulationOrde red By: Andi Ware on 07-11-2022 PT Coag (PPP) [Time] 14.1 s 9.0-12.9 [facility] Leukocytes [#/volume] correc [place] for nucleated erythrocytes in Blood by Automated counOrdered By: Andi Ware on 07-11-2022 WBC corrected for nucl RBC Auto (Bld) [#/Vol] 8.2 10*3/uL 4.1-10.5 [facility] Lymphocytes Auto (Bld) [#/Vo l]Ordered By: Andi Ware on 07-11-2022 Lymphocytes (Bld) [#/Vol] 1.6 10*3/uL 1.00-4.8 [facility] Lymphocytes/100 WBC Auto (Bl d)Ordered By: Andi Ware on 07-11-2022 Lymphocytes/100 WBC (Bld) 19.4 % . [facility] MCH Auto (RBC) [Entitic mass ]Ordered By: Andi Ware on 07-11-2022 MCH (RBC) [Entitic mass] 27.1 pg 27.5-35.2 [facility] MCHC Auto (RBC) [Mass/Vol]Or dered By: Andi Ware on 07-11-2022 MCHC (RBC) [Mass/Vol] 32.7 g/dL 32.5-35.6 [facility] MCV Auto (RBC) [Entitic vol] Ordered By: Andi Ware on 07-11-2022 MCV (RBC) [Entitic vol] 83.1 fL 83.5-101 [facility] Monocytes Auto (Bld) [#/Vol] Ordered By: Andi Ware on 07-11-2022 Monocytes (Bld) [#/Vol] 0.6 10*3/uL 0.0-0.8 [facility] Monocytes/100 WBC Auto (Bld) Ordered By: Andi Ware on 07-11-2022 Monocytes/100 WBC (Bld) 7.3 % . [facility] Neutrophils Auto (Bld) [#/Vo l]Ordered By: Andi Ware on 07-11-2022 Neutrophils (Bld) [#/Vol] 5.7 10*3/uL 1.8-7.7 [facility] Neutrophils/100 WBC Auto (Bl d)Ordered By: Andi Ware on 07-11-2022 Neutrophils/100 WBC (Bld) 69.4 % . [facility] No Panel InformationOrdered By: Andi Ware on 07-11-2022 Estimated GFR () 53 mL/Min [facility] Comment on above: GFR estimated refere nce range: According to KDOQI guidelines, <60 ml/min/1.73m2 is sufficient to diagnose a patient with chronic kidney disease. Pharmacy Creatinine Clearance (Chem N/A [facility] Nucleated erythrocytes [Pres ence] in Blood by Automated countOrdered By: Andi Ware on 07-11-2022 Nucleated RBC Auto Ql (Bld) 0.1 /100{WBC} 0-0.5 [facility] Platelet mean volume Auto (B ld) [Entitic vol]Ordered By: Andi Ware on 07-11-2022 Platelet mean volume (Bld) [Entitic vol] 6.9 fL 6.6-10.1 [facility] Platelet poor plasma interna tional normalized ratio (INR) by coagulation assay (relatOrdered By: Andi Ware on 07-11-2022 INR Coag (PPP) [Relative time] 1.2 {INR} [facility] Comment on above: INR Therapeutic Rang e [...] 07-11-2022 Platelets (Bld) [#/Vol] 286 10*3/uL 150-450 [facility] RBC Auto (Bld) [#/Vol]Ordere d By: Andi Ware on 07-11-2022 RBC (Bld) [#/Vol] 3.97 10*6/uL 3.90-5.60 [facility] Serum or plasma anion gap de terminationOrdered By: Andi Ware on 07-11-2022 Anion gap [Moles/Vol] 16.4 mmol/L 6.0-15.0 [facility] Serum or plasma calcium hakan urement (mass/volume)Ordered By: Andi Ware on 07-11-2022 Calcium [Mass/Vol] 9.0 mg/dL 8.2-10.2 [facility] Serum or plasma chloride akbar surement (moles/volume)Ordered By: Andi Ware on 07-11-2022 Chloride [Moles/Vol] 100 mmol/L 95-114 [facility] Serum or plasma glucose hakan urement (mass/volume)Ordered By: Andi Ware on 07-11-2022 Glucose [Mass/Vol] 176 mg/dL 70-100 [facility] Comment on above: ADA recommended refe rence rangeRandom Glucose Reference Range is dependent on time and content of last meal. Glucose of more than 200 mg/dL in a nonstressed, ambulatory subject supports the diagnosis of Diabetes Mellitus. Serum or plasma potassium me asurement (moles/volume)Ordered By: Andi Ware on 07-11-2022 Potassium [Moles/Vol] 4.6 mmol/L 3.5-5.1 [facility] Serum or plasma sodium measu rement (moles/volume)Ordered By: Andi Ware on 07-11-2022 Sodium [Moles/Vol] 136 mmol/L 136-146 [facility] Serum or plasma total carbon dioxide measurement (moles/volume)Ordered By: Adni Ware on 07-11-2022 CO2 [Moles/Vol] 24.2 mmol/L 22.0-30.0 [facility] Serum or plasma urea nitroge n measurement (mass/volume)Ordered By: Andi Ware on 07-11-2022 Urea nitrogen [Mass/Vol] 28 mg/dL 9-23 [facility] WBC Auto (Bld) [#/Vol]Ordere d By: Andi Ware on 07-11-2022 WBC (Bld) [#/Vol] 8.2 10*3/uL 4.1-10.5 [facility] Activated partial thrombopla stin time (aPTT) in platelet poor plasma by coagulation aOrdered By: Andi Ware on 05-23-2022 aPTT Coag (PPP) [Time] 29.9 s 25.1-36.5 [facility] Glucose Glucometer (BldC) [M ass/Vol]Ordered By: Andi Ware on 05-23-2022 Glucose [Mass/Vol] 200 mg/dL [facility] Comment on above: Random Glucose Refer ence Range is dependent on time and content of last meal. Glucose of more than 200 mg/dL in a nonstressed, ambulatory subject supports the diagnosis of Diabetes Mellitus. Laboratory - CoagulationOrde red By: Andi Ware on 05-23-2022 PT Coag (PPP) [Time] 12.8 s 9.0-12.9 [facility] No Panel InformationOrdered By: Andi Ware on 05-23-2022 Bedside Glucose Comment Glu2: cleaned meter [facility] Platelet poor plasma interna tional normalized ratio (INR) by coagulation assay (relatOrdered By: Andi Ware on 05-23-2022 INR Coag (PPP) [Relative time] 1.1 {INR} [facility] Comment on above: INR Therapeutic Rang e [...] 05-19-2022 Basophils (Bld) [#/Vol] 0.1 10*3/uL 0.0-0.2 [facility] Basophils/100 WBC Auto (Bld) Ordered By: Janusz Davidson on 05-19-2022 Basophils/100 WBC (Bld) 0.9 % . [facility] COVID-19 SOFIAOrdered By: Jaswinder Ware on 05-19-2022 SARS-CoV+SARS-CoV-2 (COVID-19) Ag IA.rapid Ql (Resp) Negative Negative [facility] Comment on above: This is a duplicate Lelo SARS Antigen (SHAKIRA) result to be used for statistical tracking purpose only. Creatinine and Glomerular fi ltration rate.predicted panel (S/P/Bld)Ordered By: Janusz Davidson on 05-19-2022 Creatinine [Mass/Vol] 1.37 mg/dL 0.64-1.27 [facility] Eosinophils Auto (Bld) [#/Vo l]Ordered By: Janusz Davidson on 05-19-2022 Eosinophils (Bld) [#/Vol] 0.3 10*3/uL 0.0-0.45 [facility] Eosinophils/100 WBC Auto (Bl d)Ordered By: Janusz Davidson on 05-19-2022 Eosinophils/100 WBC (Bld) 3.8 % . [facility] Erythrocyte distribution wid th Auto (RBC) [Ratio]Ordered By: Janusz Davidson on 05-19-2022 Erythrocyte distribution width (RBC) [Ratio] 16.6 % 12.0-14.8 [facility] Estimated glomerular filtrat ion rate (GFR) non- AmericanOrdered By: Janusz Davidson on 05-19-2022 GFR/1.73 sq M.predicted among non-blacks MDRD (S/P/Bld) [Vol rate/Area] 51 mL/Min [facility] Hematocrit Auto (Bld) [Volum e fraction]Ordered By: Janusz Davidson on 05-19-2022 Hematocrit (Bld) [Volume fraction] 33.3 % 38.8-50.0 [facility] Hemoglobin [Mass/volume] in BloodOrdered By: Janusz Davidson on 05-19-2022 Hemoglobin (Bld) [Mass/Vol] 10.6 g/dL 13.0-17.0 [facility] Leukocytes [#/volume] correc [place] for nucleated erythrocytes in Blood by Automated counOrdered By: Janusz Davidson on 05-19-2022 WBC corrected for nucl RBC Auto (Bld) [#/Vol] 8.2 10*3/uL 4.1-10.5 [facility] Lymphocytes Auto (Bld) [#/Vo l]Ordered By: Janusz Davidson on 05-19-2022 Lymphocytes (Bld) [#/Vol] 1.3 10*3/uL 1.00-4.8 [facility] Lymphocytes/100 WBC Auto (Bl d)Ordered By: Janusz Davidson on 05-19-2022 Lymphocytes/100 WBC (Bld) 16.3 % . [facility] MCH Auto (RBC) [Entitic mass ]Ordered By: Janusz Davidson on 05-19-2022 MCH (RBC) [Entitic mass] 26.9 pg 27.5-35.2 [facility] MCHC Auto (RBC) [Mass/Vol]Or dered By: Janusz Davidson on 05-19-2022 MCHC (RBC) [Mass/Vol] 31.8 g/dL 32.5-35.6 [facility] MCV Auto (RBC) [Entitic vol] Ordered By: Janusz Davidson on 05-19-2022 MCV (RBC) [Entitic vol] 84.5 fL 83.5-101 [facility] Monocytes Auto (Bld) [#/Vol] Ordered By: Janusz Davidson on 05-19-2022 Monocytes (Bld) [#/Vol] 0.6 10*3/uL 0.0-0.8 [facility] Monocytes/100 WBC Auto (Bld) Ordered By: Janusz Davidson on 05-19-2022 Monocytes/100 WBC (Bld) 6.9 % . [facility] Neutrophils Auto (Bld) [#/Vo l]Ordered By: Janusz Davidson on 05-19-2022 Neutrophils (Bld) [#/Vol] 5.9 10*3/uL 1.8-7.7 [facility] Neutrophils/100 WBC Auto (Bl d)Ordered By: Janusz Davidson on 05-19-2022 Neutrophils/100 WBC (Bld) 72.1 % . [facility] No Panel InformationOrdered By: Janusz Davidson on 05-19-2022 Estimated GFR () > 60 mL/Min [facility] Comment on above: GFR estimated refere nce range: According to KDOQI guidelines, <60 ml/min/1.73m2 is sufficient to diagnose a patient with chronic kidney disease. Pharmacy Creatinine Clearance (Chem N/A [facility] No Panel InformationOrdered By: Andi Ware on 05-19-2022 SARS Antigen (LFIA) [facility] SARS Antigen (LFIA) [facility] Nucleated erythrocytes [Pres ence] in Blood by Automated countOrdered By: Janusz Davidson on 05-19-2022 Nucleated RBC Auto Ql (Bld) 0.1 /100{WBC} 0-0.5 [facility] Platelet mean volume Auto (B ld) [Entitic vol]Ordered By: Janusz Davidson on 05-19-2022 Platelet mean volume (Bld) [Entitic vol] 7.1 fL 6.6-10.1 [facility] Platelets Auto (Bld) [#/Vol] Ordered By: Janusz Davidson on 05-19-2022 Platelets (Bld) [#/Vol] 315 10*3/uL 150-450 [facility] RBC Auto (Bld) [#/Vol]Ordere d By: Janusz Davidson on 05-19-2022 RBC (Bld) [#/Vol] 3.94 10*6/uL 3.90-5.60 [facility] Serum or plasma anion gap de terminationOrdered By: Janusz Davidson on 05-19-2022 Anion gap [Moles/Vol] 13.5 mmol/L 6.0-15.0 [facility] Serum or plasma calcium hakan urement (mass/volume)Ordered By: Janusz Davidson on 05-19-2022 Calcium [Mass/Vol] 8.9 mg/dL 8.2-10.2 [facility] Serum or plasma chloride akbar surement (moles/volume)Ordered By: Janusz Davidson on 05-19-2022 Chloride [Moles/Vol] 100 mmol/L 95-114 [facility] Serum or plasma glucose hakan urement (mass/volume)Ordered By: Janusz Davidson on 05-19-2022 Glucose [Mass/Vol] 188 mg/dL 70-100 [facility] Comment on above: ADA recommended refe rence rangeRandom Glucose Reference Range is dependent on time and content of last meal. Glucose of more than 200 mg/dL in a nonstressed, ambulatory subject supports the diagnosis of Diabetes Mellitus. Serum or plasma potassium me asurement (moles/volume)Ordered By: Janusz Davidson on 05-19-2022 Potassium [Moles/Vol] 4.3 mmol/L 3.5-5.1 [facility] Serum or plasma sodium measu rement (moles/volume)Ordered By: Janusz Davidson on 05-19-2022 Sodium [Moles/Vol] 139 mmol/L 136-146 [facility] Serum or plasma total carbon dioxide measurement (moles/volume)Ordered By: Janusz Davidson on 05-19-2022 CO2 [Moles/Vol] 29.8 mmol/L 22.0-30.0 [facility] Serum or plasma urea nitroge n measurement (mass/volume)Ordered By: Janusz Davidson on 05-19-2022 Urea nitrogen [Mass/Vol] 21 mg/dL 9-23 [facility] WBC Auto (Bld) [#/Vol]Ordere d By: Janusz Davidson on 05-19-2022 WBC (Bld) [#/Vol] 8.2 10*3/uL 4.1-10.5 [facility] Basophils Auto (Bld) [#/Vol] Ordered By: Janusz Davidson on 05-14-2022 Basophils (Bld) [#/Vol] 0.1 10*3/uL 0.0-0.2 [facility] Basophils/100 WBC Auto (Bld) Ordered By: Janusz Davidson on 05-14-2022 Basophils/100 WBC (Bld) 1.1 % . [facility] Creatinine and Glomerular fi ltration rate.predicted panel (S/P/Bld)Ordered By: aJnusz Davidson on 05-14-2022 Creatinine [Mass/Vol] 1.27 mg/dL 0.64-1.27 [facility] Eosinophils Auto (Bld) [#/Vo l]Ordered By: Janusz Davidson on 05-14-2022 Eosinophils (Bld) [#/Vol] 0.2 10*3/uL 0.0-0.45 [facility] Eosinophils/100 WBC Auto (Bl d)Ordered By: Janusz Davidson on 05-14-2022 Eosinophils/100 WBC (Bld) 2.5 % . [facility] Erythrocyte distribution wid th Auto (RBC) [Ratio]Ordered By: Janusz Davidson on 05-14-2022 Erythrocyte distribution width (RBC) [Ratio] 15.7 % 12.0-14.8 [facility] Estimated glomerular filtrat ion rate (GFR) non- AmericanOrdered By: Janusz Davidson on 05-14-2022 GFR/1.73 sq M.predicted among non-blacks MDRD (S/P/Bld) [Vol rate/Area] 56 mL/Min [facility] Glucose Glucometer (BldC) [M ass/Vol]Ordered By: Janusz Davidson on 05-14-2022 Glucose [Mass/Vol] 226 mg/dL [facility] Comment on above: Random Glucose Refer ence Range is dependent on time and content of last meal. Glucose of more than 200 mg/dL in a nonstressed, ambulatory subject supports the diagnosis of Diabetes Mellitus. Hematocrit Auto (Bld) [Volum e fraction]Ordered By: Janusz Davidson on 05-14-2022 Hematocrit (Bld) [Volume fraction] 26.8 % 38.8-50.0 [facility] Hemoglobin [Mass/volume] in BloodOrdered By: Janusz Davidson on 05-14-2022 Hemoglobin (Bld) [Mass/Vol] 8.8 g/dL 13.0-17.0 [facility] Leukocytes [#/volume] correc [place] for nucleated erythrocytes in Blood by Automated counOrdered By: Janusz Davidson on 05-14-2022 WBC corrected for nucl RBC Auto (Bld) [#/Vol] 6.6 10*3/uL 4.1-10.5 [facility] Lymphocytes Auto (Bld) [#/Vo l]Ordered By: Janusz Davidson on 05-14-2022 Lymphocytes (Bld) [#/Vol] 1.2 10*3/uL 1.00-4.8 [facility] Lymphocytes/100 WBC Auto (Bl d)Ordered By: Janusz Davidson on 05-14-2022 Lymphocytes/100 WBC (Bld) 18.1 % . [facility] MCH Auto (RBC) [Entitic mass ]Ordered By: Janusz Davidson on 05-14-2022 MCH (RBC) [Entitic mass] 27.5 pg 27.5-35.2 [facility] MCHC Auto (RBC) [Mass/Vol]Or dered By: Janusz Davidson on 05-14-2022 MCHC (RBC) [Mass/Vol] 32.9 g/dL 32.5-35.6 [facility] MCV Auto (RBC) [Entitic vol] Ordered By: Janusz Davidson on 05-14-2022 MCV (RBC) [Entitic vol] 83.5 fL 83.5-101 [facility] Monocytes Auto (Bld) [#/Vol] Ordered By: Janusz Davidson on 05-14-2022 Monocytes (Bld) [#/Vol] 0.5 10*3/uL 0.0-0.8 [facility] Monocytes/100 WBC Auto (Bld) Ordered By: Janusz Davidson on 05-14-2022 Monocytes/100 WBC (Bld) 7.4 % . [facility] Neutrophils Auto (Bld) [#/Vo l]Ordered By: Janusz Davidson on 05-14-2022 Neutrophils (Bld) [#/Vol] 4.7 10*3/uL 1.8-7.7 [facility] Neutrophils/100 WBC Auto (Bl d)Ordered By: Janusz Davidson on 05-14-2022 Neutrophils/100 WBC (Bld) 70.9 % . [facility] No Panel InformationOrdered By: Janusz Davidson on 05-14-2022 Bedside Glucose Comment Glu2: cleaned meter [facility] Estimated GFR () > 60 mL/Min [facility] Comment on above: GFR estimated refere nce range: According to KDOQI guidelines, <60 ml/min/1.73m2 is sufficient to diagnose a patient with chronic kidney disease. Pharmacy Creatinine Clearance (Chem 66.09 [facility] Nucleated erythrocytes [Pres ence] in Blood by Automated countOrdered By: Janusz Davidson on 05-14-2022 Nucleated RBC Auto Ql (Bld) 0.1 /100{WBC} 0-0.5 [facility] Platelet mean volume Auto (B ld) [Entitic vol]Ordered By: Janusz Davidson on 05-14-2022 Platelet mean volume (Bld) [Entitic vol] 6.9 fL 6.6-10.1 [facility] Platelets Auto (Bld) [#/Vol] Ordered By: Janusz Davidson on 05-14-2022 Platelets (Bld) [#/Vol] 230 10*3/uL 150-450 [facility] RBC Auto (Bld) [#/Vol]Ordere d By: Janusz Davidson on 05-14-2022 RBC (Bld) [#/Vol] 3.20 10*6/uL 3.90-5.60 [facility] Serum or plasma anion gap de terminationOrdered By: Janusz Davidson on 05-14-2022 Anion gap [Moles/Vol] 11.0 mmol/L 6.0-15.0 [facility] Serum or plasma calcium hakan urement (mass/volume)Ordered By: Janusz Davidson on 05-14-2022 Calcium [Mass/Vol] 8.3 mg/dL 8.2-10.2 [facility] Serum or plasma chloride akbar surement (moles/volume)Ordered By: Janusz Davidson on 05-14-2022 Chloride [Moles/Vol] 100 mmol/L 95-114 [facility] Serum or plasma glucose hakan urement (mass/volume)Ordered By: Janusz Davidson on 05-14-2022 Glucose [Mass/Vol] 161 mg/dL 70-100 [facility] Comment on above: ADA recommended refe rence rangeRandom Glucose Reference Range is dependent on time and content of last meal. Glucose of more than 200 mg/dL in a nonstressed, ambulatory subject supports the diagnosis of Diabetes Mellitus. Serum or plasma potassium me asurement (moles/volume)Ordered By: Janusz Davidson on 05-14-2022 Potassium [Moles/Vol] 3.9 mmol/L 3.5-5.1 [facility] Serum or plasma sodium measu rement (moles/volume)Ordered By: Janusz Davidson on 05-14-2022 Sodium [Moles/Vol] 136 mmol/L 136-146 [facility] Serum or plasma total carbon dioxide measurement (moles/volume)Ordered By: Janusz Davidson on 05-14-2022 CO2 [Moles/Vol] 28.9 mmol/L 22.0-30.0 [facility] Serum or plasma urea nitroge n measurement (mass/volume)Ordered By: Janusz Davidson on 05-14-2022 Urea nitrogen [Mass/Vol] 18 mg/dL 9-23 [facility] WBC Auto (Bld) [#/Vol]Ordere d By: Janusz Davidson on 05-14-2022 WBC (Bld) [#/Vol] 6.6 10*3/uL 4.1-10.5 [facility] Activated partial thrombopla stin time (aPTT) in platelet poor plasma by coagulation aOrdered By: Janusz Reed on 05-12-2022 aPTT Coag (PPP) [Time] 37.3 s 25.1-36.5 [facility] Basophils Auto (Bld) [#/Vol] Ordered By: Janusz Reed on 05-12-2022 Basophils (Bld) [#/Vol] 0.1 10*3/uL 0.0-0.2 [facility] Basophils/100 WBC Auto (Bld) Ordered By: Janusz Reed on 05-12-2022 Basophils/100 WBC (Bld) 1.0 % . [facility] Body fluid albumin measureme nt (mass/volume)Ordered By: Janusz Reed on 05-12-2022 Albumin (Body fld) [Mass/Vol] 3.7 g/dL 3.2-5.5 [facility] Creatinine and Glomerular fi ltration rate.predicted panel (S/P/Bld)Ordered By: Janusz Reed on 05-12-2022 Creatinine [Mass/Vol] 1.31 mg/dL 0.64-1.27 [facility] Eosinophils Auto (Bld) [#/Vo l]Ordered By: Janusz Reed on 05-12-2022 Eosinophils (Bld) [#/Vol] 0.2 10*3/uL 0.0-0.45 [facility] Eosinophils/100 WBC Auto (Bl d)Ordered By: Janusz Reed on 05-12-2022 Eosinophils/100 WBC (Bld) 2.4 % . [facility] Erythrocyte distribution wid th Auto (RBC) [Ratio]Ordered By: Janusz Reed on 05-12-2022 Erythrocyte distribution width (RBC) [Ratio] 15.9 % 12.0-14.8 [facility] Estimated glomerular filtrat ion rate (GFR) non- AmericanOrdered By: Janusz Reed on 05-12-2022 GFR/1.73 sq M.predicted among non-blacks MDRD (S/P/Bld) [Vol rate/Area] 54 mL/Min [facility] Globulin Calc (S) [Mass/Vol] Ordered By: Janusz Reed on 05-12-2022 Globulin (S) [Mass/Vol] 3.6 g/dL [facility] Hematocrit Auto (Bld) [Volum e fraction]Ordered By: Janusz Reed on 05-12-2022 Hematocrit (Bld) [Volume fraction] 29.3 % 38.8-50.0 [facility] Hemoglobin [Mass/volume] in BloodOrdered By: Janusz Reed on 05-12-2022 Hemoglobin (Bld) [Mass/Vol] 9.4 g/dL 13.0-17.0 [facility] - Chemistry and C hemistry - challengeOrdered By: Janusz Davidson on 05-12-2022 Natriuretic peptide B (Bld) [Mass/Vol] 177.0 pg/mL 5-100 [facility] - CoagulationOrde red By: Janusz Reed on 05-12-2022 PT Coag (PPP) [Time] 19.4 s 9.0-12.9 [facility] Leukocytes [#/volume] correc [place] for nucleated erythrocytes in Blood by Automated counOrdered By: Janusz Reed on 05-12-2022 WBC corrected for nucl RBC Auto (Bld) [#/Vol] 8.0 10*3/uL 4.1-10.5 [facility] Lymphocytes Auto (Bld) [#/Vo l]Ordered By: Janusz Reed on 05-12-2022 Lymphocytes (Bld) [#/Vol] 1.2 10*3/uL 1.00-4.8 [facility] Lymphocytes/100 WBC Auto (Bl d)Ordered By: Janusz Reed on 05-12-2022 Lymphocytes/100 WBC (Bld) 15.3 % . [facility] MCH Auto (RBC) [Entitic mass ]Ordered By: Janusz Reed on 05-12-2022 MCH (RBC) [Entitic mass] 27.2 pg 27.5-35.2 [facility] MCHC Auto (RBC) [Mass/Vol]Or dered By: Janusz Reed on 05-12-2022 MCHC (RBC) [Mass/Vol] 32.1 g/dL 32.5-35.6 [facility] MCV Auto (RBC) [Entitic vol] Ordered By: Janusz Reed on 05-12-2022 MCV (RBC) [Entitic vol] 84.9 fL 83.5-101 [facility] Monocyte distribution width [Entitic volume] in Blood by AutomatedOrdered By: Janusz Reed on 05-12-2022 Monocyte distribution width Auto (Bld) [Entitic vol] 17.98 % 0.00-20.00 [facility] Monocytes Auto (Bld) [#/Vol] Ordered By: Janusz Reed on 05-12-2022 Monocytes (Bld) [#/Vol] 0.4 10*3/uL 0.0-0.8 [facility] Monocytes/100 WBC Auto (Bld) Ordered By: Janusz Reed on 05-12-2022 Monocytes/100 WBC (Bld) 5.6 % . [facility] Neutrophils Auto (Bld) [#/Vo l]Ordered By: Janusz Reed on 05-12-2022 Neutrophils (Bld) [#/Vol] 6.1 10*3/uL 1.8-7.7 [facility] Neutrophils/100 WBC Auto (Bl d)Ordered By: Janusz Reed on 05-12-2022 Neutrophils/100 WBC (Bld) 75.7 % . [facility] No Panel InformationOrdered By: Janusz Reed on 05-12-2022 Estimated GFR () > 60 mL/Min [facility] Comment on above: GFR estimated refere nce range: According to KDOQI guidelines, <60 ml/min/1.73m2 is sufficient to diagnose a patient with chronic kidney disease. Pharmacy Creatinine Clearance (Chem 59.78 [facility] Nucleated erythrocytes [Pres ence] in Blood by Automated countOrdered By: Janusz Reed on 05-12-2022 Nucleated RBC Auto Ql (Bld) 0.0 /100{WBC} 0-0.5 [facility] Platelet mean volume Auto (B ld) [Entitic vol]Ordered By: Janusz Reed on 05-12-2022 Platelet mean volume (Bld) [Entitic vol] 7.2 fL 6.6-10.1 [facility] Platelet poor plasma interna tional normalized ratio (INR) by coagulation assay (relatOrdered By: Janusz Reed on 05-12-2022 INR Coag (PPP) [Relative time] 1.7 {INR} [facility] Comment on above: INR Therapeutic Rang e [...] 05-12-2022 Platelets (Bld) [#/Vol] 264 10*3/uL 150-450 [facility] Protein [Mass/volume] in Ser um or PlasmaOrdered By: Janusz Reed on 05-12-2022 Protein [Mass/Vol] 7.3 g/dL 6.1-7.9 [facility] RBC Auto (Bld) [#/Vol]Ordere d By: Janusz Reed on 05-12-2022 RBC (Bld) [#/Vol] 3.46 10*6/uL 3.90-5.60 [facility] Serum or plasma alanine del valle otransferase measurement without P-5'-P (enzymatic activiOrdered By: Janusz Reed on 05-12-2022 ALT No additional P-5'-P [Catalytic activity/Vol] 24 U/L 10-60 [facility] Serum or plasma albumin/glob ulin mass ratioOrdered By: Janusz Reed on 05-12-2022 Albumin/Globulin [Mass ratio] 1.0 {ratio} [facility] Serum or plasma alkaline lula sphatase measurement (enzymatic activity/volume)Ordered By: Janusz Reed on 05-12-2022 ALP [Catalytic activity/Vol] 79 U/L 32-92 [facility] Serum or plasma anion gap de terminationOrdered By: Janusz Reed on 05-12-2022 Anion gap [Moles/Vol] 17.7 mmol/L 6.0-15.0 [facility] Serum or plasma aspartate am inotransferase measurement (enzymatic activity/volume)Ordered By: Janusz Reed on 05-12-2022 AST [Catalytic activity/Vol] 22 U/L 10-42 [facility] Serum or plasma calcium hakan urement (mass/volume)Ordered By: Janusz Reed on 05-12-2022 Calcium [Mass/Vol] 8.9 mg/dL 8.2-10.2 [facility] Serum or plasma chloride akbar surement (moles/volume)Ordered By: Janusz Reed on 05-12-2022 Chloride [Moles/Vol] 100 mmol/L 95-114 [facility] Serum or plasma glucose hakan urement (mass/volume)Ordered By: Janusz Reed on 05-12-2022 Glucose [Mass/Vol] 174 mg/dL 70-100 [facility] Comment on above: ADA recommended refe rence rangeRandom Glucose Reference Range is dependent on time and content of last meal. Glucose of more than 200 mg/dL in a nonstressed, ambulatory subject supports the diagnosis of Diabetes Mellitus. Serum or plasma potassium me asurement (moles/volume)Ordered By: Janusz Reed on 05-12-2022 Potassium [Moles/Vol] 4.3 mmol/L 3.5-5.1 [facility] Serum or plasma sodium measu rement (moles/volume)Ordered By: Janusz Reed on 05-12-2022 Sodium [Moles/Vol] 138 mmol/L 136-146 [facility] Serum or plasma total biliru bin measurement (mass/volume)Ordered By: Janusz Reed on 05-12-2022 Bilirubin [Mass/Vol] 0.8 mg/dL 0.3-1.2 [facility] Serum or plasma total carbon dioxide measurement (moles/volume)Ordered By: Janusz Reed on 05-12-2022 CO2 [Moles/Vol] 24.6 mmol/L 22.0-30.0 [facility] Serum or plasma urea nitroge n measurement (mass/volume)Ordered By: Janusz Reed on 05-12-2022 Urea nitrogen [Mass/Vol] 20 mg/dL 02-24 [facility] WBC Auto (Bld) [#/Vol]Ordere d By: Janusz Reed on 05-12-2022 WBC (Bld) [#/Vol] 8.0 10*3/uL 4.1-10.5 [facility] Office Visit (Cardiology)on 03-15-2022 Follow-up visit Diagnoses/Problems Assessed Stage 3b chronic kidney disease (585.3) (N18.32) 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 (414.05) (I25.810) Hypertension, [...] 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, Hypertension, essential, benign, Ischemic cardiomyopathy Renew: Enalapril Maleate 10 MG Oral Tablet; Take 1 tablet twice daily 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, Paroxysmal atrial fibrillation Renew: Carvedilol 25 MG Oral Tablet; TAKE 1 TABLET TWICE DAILY Class 1 obesity with body mass index (BMI) of 33.0 to 33.9 in adult Healthy Weight Tips; Status:Complete; Done: 15Mar2022 Some eating tips that can help you lose weight.; Status:Complete; Done: 15Mar2022 Hypertension, essential, benign Renew: amLODIPine Besylate 5 MG Oral Tablet; TAKE 1 TABLET BY MOUTH EVERY DAY Paroxysmal atrial fibrillation Renew: Eliquis 5 MG Oral Tablet; TAKE ONE TABLET TWO TIMES DAILY IO EKG Electrocardiogram- 12 Lead; Status:Complete; Done: 15Mar2022 Patient Instructions Please bring all medicines, vitamins, [...] arthrodesis Histor (more content not included)... Normal [facility] Tobacco Screening.on 022 Fall risk assessment a) No falls within the last year [facility] [employer] 600 DO Work Phone: Tobacco use status [facility] b) No [facility] [employer] 600 DO Work Phone: CHEMISTRYOrdered By: Lab ROP User on 02-10-2022 Glucose [Mass/Vol] 89 mg/dL Normal 55 - 99 mg/dL [facility] [place] Subsection Comment on above: Result Comment: Kennedy SULLIVAN POC Device SN [id number] Invalid Interpretation Code [facility] POC Subsection POC User ID [id number] Invalid Interpretation Code [facility] POC Subsection POC Username MEDINA MOLINA Invalid Interpretation Code [facility] POC Subsection Glucose [Mass/Vol] 130 mg/dL High 55 - 99 mg/dL [facility] Subsection Comment on above: Result Comment: Kennedy espitia RN/ POC Device SN [id number] Invalid Interpretation Code [facility] POC Subsection POC User ID [id number] Invalid Interpretation Code [facility] POC Subsection POC Username MEDINA MOLINA Invalid Interpretation Code [facility] POC Subsection Glucose [Mass/Vol] 113 mg/dL High 55 - 99 mg/dL [facility] Subsection Comment on above: Result Comment: Kennedy espitia RN/ POC Device SN [id number] Invalid Interpretation Code [facility] POC Subsection POC User ID [id number] Invalid Interpretation Code [facility] POC Subsection POC Username MEDINA MOLINA Invalid Interpretation Code [facility] [place] Subsection CHEMISTRYOrdered By: SYSTEM SYSTEM on 02-10-2022 Anion gap [Moles/Vol] 11 mmol/L Normal 6 - 16 mEq/L [facility] Calcium [Mass/Vol] 8.4 mg/dL Low 8.9 - 11. 1 mg/dL [facility] Chloride [Moles/Vol] 104 mmol/L Normal 101 - 1 11 mmol/L [facility] CO2 [Moles/Vol] 29 mmol/L Normal 21 - 31 mmol/L [facility] Creatinine [Mass/Vol] 1.2 mg/dL Normal 0.5 - 1.3 mg/dL [facility] Remisol GFR/1.73 sq M.predicted among blacks MDRD (S/P/Bld) [Vol rate/Area] mL/min/1.73 m2 Normal >=59mL/min /1.73 m2 [facility] Chem S GFR/1.73 sq M.predicted among non-blacks MDRD (S/P/Bld) [Vol rate/Area] 59 mL/min/1.73 m2 Normal >=59mL/min /1.73 m2 [facility] Chem S Glucose [Mass/Vol] 70 mg/dL Normal 55 - 199 mg/dL [facility] Magnesium [Mass/Vol] 2.2 mg/dL Normal 1.3 - 2 .4 mg/dL [facility] Potassium [Moles/Vol] 4.4 mmol/L Normal 3.5 - 5.3 mmol/L [facility] Sodium [Moles/Vol] 140 mmol/L Normal 135 - 145 mmol/L [facility] Urea nitrogen [Mass/Vol] 22 mg/dL High 5 - 21 mg/dL [facility] Urea nitrogen/Creatinine [Mass ratio] 18 mg/mg Normal 10 - 20 [facility] Remisol CHEMISTRYOrdered By: SYSTEM SYSTEM on 02-09-2022 CK [Catalytic activity/Vol] 35 [...] (S) Non-Reactive Invalid Interpretation Code Non Reactive [facility] SendOutsSS Comment on above: Result Comment: Perf ormed at: [facility] [address] [id number] PhD Erick Nielsen CHEMISTRYOrdered By: SYSTEM SYSTEM [...] 43 mL/min/1.73 m2 Low >=59mL/min /1.73 m2 [facility] S Globulin (S) [Mass/Vol] 3.8 g/dL Normal 1.4 - 4.0 gm/dL [facility] Remisol Glucose [Mass/Vol] 210 mg/dL High 55 [...] ratio] 16 mg/mg Normal 10 - 20 [facility] Remisol HEMATOLOGYOrdered By: SYSTEM SYSTEM on 02-08-2022 [...] 1.0 E9/L [facility] HemeAutoSS Neutrophils/100 WBC (Bld) 70.9 % Normal 36.0 - 75.0 % [facility] HemeAutoSS Neutrophils/Leukocytes Auto (Bld) [Pure # fraction] 6.0 E9/L Normal 2.0 - 7.5 E9/L [facility] HemeAutoSS HEMATOLOGYOrdered By: Lynn Gonzales on 02-08-2022 Erythrocyte distribution width (RBC) [Ratio] 16.0 % High 10.9 - 14.2 % [facility] HemeAutoSS Hematocrit (Bld) [Volume fraction] 25.6 % Low 37.7 - 49.0 % [facility] HemeAutoSS Hemoglobin (Bld) [Mass/Vol] 8.7 g/dL Low 13.5 - 17.5 gm/dL [facility] HemeAutoSS MCH (RBC) [Entitic mass] 29.9 pg Normal 27.0 - 34.0 pg [facility] HemeAutoSS MCHC (RBC) [Mass/Vol] 33.8 g/dL Normal 31.4 - 36.0 gm/dL [facility] HemeAutoSS MCV (RBC) [Entitic vol] 88.4 fL Normal 80.0 - 100.0 fL [facility] HemeAutoSS Platelet mean volume (Bld) [Entitic vol] 7.0 fL Normal 6.4 - 10.8 fL [facility] [...] PM) Normal Negative [facility] UA Auto SS [place].plasma/[place] .RBC (Bld) [Mass ratio] 0-3 /HPF Normal [...] [facility] UA Auto SS UA Spec Desc Suazo (02/08/22 9:15 PM) Normal [facility] UA Auto SS Urobilinogen Qn (U) 0.0040332 {Gabby'U}/dL Normal 0.0 - 1.0 EU/dL [facility] [...] 43 mL/min/1.73 m2 Low >=59mL/min /1.73 m2 [facility] Chem S Glucose [Mass/Vol] 225 mg/dL High [...] 125 pg/mL High 5 - 80 pg/mL [facility] HemeManSS HEMATOLOGYOrdered By: SYSTEM SYSTEM on 02-02-2022 [...] 27.6 % Low 37.7 - 49.0 % [facility] HemeAutoSS Hemoglobin (Bld) [Mass/Vol] 9.0 g/dL Low [...] Brewer on 02-02-2022 Bilirubin Ql (U) Negative (02/02/22 2:54 PM) Normal [...] PM) Normal Negative [facility] UA Auto SS [place].plasma/[place] .RBC (Bld) [Mass ratio] 0-3 /HPF Normal [...] [facility] UA Auto SS Urobilinogen Qn (U) 0.3983332 {Gabby'U}/dL Normal 0.0 - 1.0 EU/dL [facility] [...] mg/dL Low 8.9 - 11. 1 mg/dL [facility] Remisol Chloride [Moles/Vol] 104 mmol/L Normal 101 - 1 11 mmol/L [facility] CO2 [Moles/Vol] 23 mmol/L Normal 21 - 31 mmol/L [facility] Creatinine [Mass/Vol] 1.8 mg/dL High 0.5 - 1.3 mg/dL [facility] GFR/1.73 sq M.predicted among blacks MDRD (S/P/Bld) [Vol rate/Area] 45 mL/min/1.73 m2 Low >=59mL/min /1.73 m2 [facility] Chem S GFR/1.73 sq M.predicted among non-blacks MDRD (S/P/Bld) [Vol rate/Area] 37 mL/min/1.73 m2 Low >=59mL/min /1.73 m2 [facility] Chem S Glucose [Mass/Vol] 130 mg/dL Normal 55 - 199 mg/dL [facility] Potassium [Moles/Vol] 4.3 mmol/L Normal 3.5 - 5.3 mmol/L [facility] Sodium [Moles/Vol] 137 mmol/L Normal 135 - 145 mmol/L [facility] Troponin I.cardiac [Mass/Vol] 18.90 pg/mL Normal 15.90 - 38.40 pg/mL [facility] Urea nitrogen [Mass/Vol] 37 mg/dL High 5 - 21 mg/dL [facility] [...] 0.8 % Normal 0.0 - 2.0 % [facility] HemeAutoSS Basophils/Leukocytes Auto (Bld) [Pure # fraction] [...] 33 mL/min/1.73 m2 Low >=59mL/min /1.73 m2 [facility] Chem S Glucose [Mass/Vol] 297 mg/dL High [...] 135 mmol/L Normal 135 - 145 mmol/L [facility] Urea nitrogen [Mass/Vol] 53 mg/dL High 5 - 21 mg/dL [facility] Rem[facility] Urea nitrogen/Creatinine [Mass ratio] 26 mg/mg High 10 - 20 [facility] Remisol Office Visit (Cardiology)on 12-15-2021 Follow-up visit Diagnoses/Problems Assessed 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 (414.05) (I25.810) Ventricular [...] 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 Renew: Aspirin EC 81 MG Oral Tablet Delayed Release; TAKE 1 TABLET DAILY 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, Ischemic cardiomyopathy, Paroxysmal atrial fibrillation Basic Metabolic Panel; Status:Active - Retrospective Authorization; Requested for:[id number]; Health Maintenance Depression Follow-up Visit Outpatient Patient to followup with pcp if symptoms worsen or persist. Follow with pcp /psych Status: Complete - Retrospective Authorization Done: [id number] Paroxysmal atrial fibrillation IO EKG Electrocardiogram- 12 Lead; Status:Complete; Done: [id number] SocHx: Former smoker Tobacco Use Screening; Status:Complete; Done: [id number] Patient Instructions By signing my name below, Maria Del Carmen Moss Lpn,Scribe, attest that this documentation has been prepared [...] he is on amiodarone. We will continue Bryant (more content not included)... Normal [facility] Tobacco Screening.on 022 Adult depression screening assessment Yes [facility] [employer] luc[employer]na 600 DO Work Phone: Fall risk assessment b) One or more fall s in the last year [facility] [employer] lucierna 600 DO Work Phone: Tobacco use status CPHS b) No [facility] [employer] oliveros 600 DO Work Phone: [phone] Tobacco Screening. 1-Several days [facility] [employer] oliveros 600 DO Work Phone: [phone] Tobacco Screening. 0-Not at all [facility] [employer] lucierna 600 DO Work Phone: Tobacco Screening. 3-Nearly every day [facility] [employer] oliveros 600 DO Work Phone: Tobacco Screening. Somewhat Difficult [facility] [employer] oliveros 600 DO Work Phone: CHEMISTRYOrdered By: SYSTEM SYSTEM on 12-06-2021 Anion gap [Moles/Vol] 17 mmol/L High 6 - 16 mEq/L [facility] Remisol Calcium [Mass/Vol] 8.8 mg/dL Low [...] 43 mL/min/1.73 m2 Low >=59mL/min /1.73 m2 [facility] Chem S Glucose [Mass/Vol] 196 mg/dL Normal 55 - 199 mg/dL [facility] [...] 47 mg/dL High 7 - 40 mg/dL [facility] CO2 [Moles/Vol] 27 mmol/L Normal 21 - 31 mmol/L [facility] Creatinine [Mass/Vol] 1.6 mg/dL High 0.5 - 1.3 mg/dL [facility] GFR/1.73 sq M.predicted among blacks MDRD (S/P/Bld) [Vol rate/Area] 52 mL/min/1.73 m2 Low >=59mL/min /1.73 m2 [facility] Chem S GFR/1.73 sq M.predicted among non-blacks MDRD (S/P/Bld) [Vol rate/Area] 43 mL/min/1.73 m2 Low >=59mL/min /1.73 m2 [facility] Chem S Glucose [Mass/Vol] 173 mg/dL Normal 55 - 199 mg/dL [facility] Remisol Potassium [Moles/Vol] 4.7 mmol/L Normal 3.5 - 5.3 mmol/L [facility] Sodium [Moles/Vol] 138 mmol/L Normal 135 - 145 mmol/L [facility] Remisol Triglyceride [Mass/Vol] 235 mg/dL High <=149mg/dL [facility] Remisol TSH Qn 38.68 m[IU]/L High 0.34 - 5.60 mcIU/mL [facility] Remisol Urea nitrogen [Mass/Vol] 24 mg/dL High 5 - 21 mg/dL [facility] Remisol Urea nitrogen/Creatinine [Mass ratio] 15 mg/mg Normal 10 - 20 [facility] Remisol CHEMISTRYOrdered By: Lab ROP User on 10-19-2021 Glucose [Mass/Vol] 269 mg/dL High 55 - 99 mg/dL [facility] POC Subsection Comment on above: Result Comment: Hcela nohemi Meter POC Device SN [id number] Invalid Interpretation Code [facility] POC Subsection POC User ID [id number] Invalid Interpretation Code [facility] POC Subsection POC Username HOMA MCCLELLAND Invalid Interpretation Code [facility] POC Subsection Glucose [Mass/Vol] 192 mg/dL High 55 - 99 mg/dL [facility] POC Subsection Comment on above: Result Comment: Chela nohemi Meter POC Device SN [id number] Invalid Interpretation Code [facility] POC Subsection POC User ID [id number] Invalid Interpretation Code [facility] POC Subsection POC Username HOMA MCCLELLAND Invalid Interpretation Code [facility] POC Subsection CHEMISTRYOrdered By: Lab ROP User on 10-18-2021 Glucose [Mass/Vol] 224 mg/dL High 55 - 99 mg/dL [facility] POC Subsection POC Device SN [id number] Invalid Interpretation Code [facility] POC Subsection POC User ID [id number] Invalid Interpretation Code [facility] POC Subsection POC Username RAY JEAN Invalid Interpretation Code [facility] POC Subsection CHEMISTRYOrdered By: SYSTEM SYSTEM on 10-16-2021 Anion gap [Moles/Vol] 12 mmol/L Normal 6 - 16 mEq/L [facility] Calcium [Mass/Vol] 8.8 mg/dL Low 8.9 - 11. 1 mg/dL [facility] Chloride [Moles/Vol] 103 mmol/L Normal 101 - 1 11 mmol/L [facility] CO2 [Moles/Vol] 27 mmol/L Normal 21 - 31 mmol/L [facility] Creatinine [Mass/Vol] 1.1 mg/dL Normal 0.5 - 1.3 mg/dL [facility] GFR/1.73 sq M.predicted among blacks MDRD (S/P/Bld) [Vol rate/Area] mL/min/1.73 m2 Normal >=59mL/min /1.73 m2 [facility] Chem S GFR/1.73 sq M.predicted among non-blacks MDRD (S/P/Bld) [Vol rate/Area] mL/min/1.73 m2 Normal >=59mL/min /1.73 m2 [facility] Chem S Glucose [Mass/Vol] 214 mg/dL High 55 - 199 mg/dL [facility] Potassium [Moles/Vol] 4.5 mmol/L Normal 3.5 - 5.3 mmol/L [facility] Sodium [Moles/Vol] 137 mmol/L Normal 135 - 145 mmol/L [facility] Urea nitrogen [Mass/Vol] 21 mg/dL Normal 5 - 21 mg/dL [facility] Urea nitrogen/Creatinine [Mass ratio] 19 mg/mg Normal 10 - 20 [facility] CHEMISTRYOrdered By: SYSTEM SYSTEM on 10-14-2021 Anion gap [Moles/Vol] 17 mmol/L High 6 - 16 mEq/L [facility] Calcium [Mass/Vol] 8.6 mg/dL Low [...] 56 mL/min/1.73 m2 Low >=59mL/min /1.73 m2 [facility] Chem S GFR/1.73 sq M.predicted among non-blacks MDRD (S/P/Bld) [Vol rate/Area] 46 mL/min/1.73 m2 Low >=59mL/min /1.73 m2 [facility] Chem S Glucose [Mass/Vol] 125 mg/dL Normal 55 - 199 mg/dL [facility] Potassium [Moles/Vol] 4.7 mmol/L Normal 3.5 - 5.3 mmol/L [facility] Sodium [Moles/Vol] 141 mmol/L Normal 135 - 145 mmol/L [facility] Troponin I.cardiac [Mass/Vol] 11.00 pg/mL Low 15.90 - 38.40 pg/mL [facility] Urea nitrogen [Mass/Vol] 33 mg/dL High 5 - 21 mg/dL [facility] Urea nitrogen/Creatinine [Mass ratio] 22 mg/mg [...] 5.8 E9/L Normal 2.0 - 7.5 E9/L [facility] HemeAutoSS HEMATOLOGYOrdered By: Pita Monahan on 10-14-2021 Erythrocyte distribution width (RBC) [Ratio] 17.5 % High 10.9 - 14.2 % [facility] HemeAutoSS Hematocrit (Bld) [Volume fraction] 29.2 % Low 37.7 - 49.0 % [facility] HemeAutoSS Hemoglobin (Bld) [Mass/Vol] 10.0 g/dL Low [...] 11.0 E9/L [facility] HemeAutoSS CHEMISTRYOrdered By: Yvon ROP User on 10-13-2021 Glucose [Mass/Vol] 194 mg/dL High 55 - 99 mg/dL [facility] POC Subsection Comment on above: Result Comment: Kennedy espitia RN/ POC Device SN [id number] Invalid Interpretation Code [facility] POC Subsection POC User ID [id number] Invalid Interpretation Code [facility] POC Subsection POC Username Gabinoelvia Estelita Invalid Interpretation Code [facility] POC Subsection Glucose [Mass/Vol] 170 mg/dL High 55 - 99 mg/dL [facility] POC Subsection Comment on above: Result Comment: Kennedy espitia RN/ POC Device SN [id number] Invalid Interpretation Code [facility] POC Subsection POC User ID [id number] Invalid Interpretation Code [facility] POC Subsection POC Username Estelita Hernandez Invalid Interpretation Code [facility] POC Subsection CHEMISTRYOrdered By: Lab ROP User on 10-12-2021 Glucose [Mass/Vol] 249 mg/dL High 55 - 99 mg/dL [facility] POC Subsection Comment on above: Result Comment: Kennedy espitia RN/ POC Device SN [id number] Invalid Interpretation Code [facility] POC Subsection POC User ID [id number] Invalid Interpretation Code [facility] POC Subsection POC Username KULDEEP HERNANDEZ Invalid Interpretation Code [facility] POC Subsection CHEMISTRYOrdered By: SYSTEM SYSTEM on 10-11-2021 Anion gap [Moles/Vol] 12 mmol/L Normal 6 - 16 mEq/L [facility] Calcium [Mass/Vol] 9.0 mg/dL Normal 8.9 - 11. 1 mg/dL [facility] Chloride [Moles/Vol] 103 mmol/L Normal 101 - 1 11 mmol/L [facility] CO2 [Moles/Vol] 27 mmol/L Normal 21 - 31 mmol/L [facility] Creatinine [Mass/Vol] 1.1 mg/dL Normal 0.5 - 1.3 mg/dL [facility] GFR/1.73 sq M.predicted among blacks MDRD (S/P/Bld) [Vol rate/Area] mL/min/1.73 m2 Normal >=59mL/min /1.73 m2 [facility] Chem S GFR/1.73 sq M.predicted among non-blacks MDRD (S/P/Bld) [Vol rate/Area] mL/min/1.73 m2 Normal >=59mL/min /1.73 m2 [facility] Chem S Glucose [Mass/Vol] 150 mg/dL Normal 55 - 199 mg/dL [facility] Potassium [Moles/Vol] 4.5 mmol/L Normal 3.5 - 5.3 mmol/L [facility] Sodium [Moles/Vol] 137 mmol/L Normal 135 - 145 mmol/L [facility] Urea nitrogen [Mass/Vol] 26 mg/dL High 5 - 21 mg/dL [facility] Urea nitrogen/Creatinine [Mass ratio] 24 mg/mg High 10 - 20 [facility] HEMATOLOGYOrdered By: SYSTEM SYSTEM on 10-11-2021 Basophils/100 WBC (Bld) 0.5 [...] 136 mmol/L Normal 135 - 145 mmol/L [facility] Urea nitrogen [Mass/Vol] 31 mg/dL High 5 - 21 mg/dL [facility] Urea nitrogen/Creatinine [Mass ratio] 22 mg/mg High 10 - 20 [facility] CHEMISTRYOrdered By: SYSTEM SYSTEM on 10-08-2021 GFR/1.73 sq M.predicted among blacks MDRD (S/P/Bld) [Vol rate/Area] 60 mL/min/1.73 m2 Normal >=59mL/min /1.73 m2 [facility] Chem S GFR/1.73 sq M.predicted among non-blacks MDRD (S/P/Bld) [Vol rate/Area] 50 mL/min/1.73 m2 Low >=59mL/min /1.73 m2 [facility] Chem S Laboratory - Microbiology an d Antimicrobial susceptibilityon 10-08-2021 Bacteria identified Cx Nom (U) 2,000 cfu/ml Mixed skin contaminants [facility] CHEMISTRYOrdered By: SYSTEM SYSTEM on 10-07-2021 25-hydroxyvitamin [...] Rem[facility] Folate [Mass/Vol] 11.0 ng/mL Normal >=6.7ng/mL [facility] GFR/1.73 sq M.predicted among blacks MDRD (S/P/Bld) [Vol rate/Area] 42 mL/min/1.73 m2 Low >=59mL/min /1.73 m2 [facility] Chem S GFR/1.73 sq M.predicted among non-blacks MDRD (S/P/Bld) [Vol rate/Area] 35 mL/min/1.73 m2 Low >=59mL/min /1.73 m2 [facility] Chem S Glucose [Mass/Vol] 135 mg/dL Normal 55 - 199 mg/dL [facility] Magnesium [Mass/Vol] 2.1 mg/dL Normal 1.3 - 2 .4 mg/dL [facility] Potassium [Moles/Vol] 4.7 mmol/L Normal 3.5 - 5.3 mmol/L [facility] Sodium [Moles/Vol] 139 mmol/L Normal 135 - 145 mmol/L [facility] Urea nitrogen [Mass/Vol] 44 mg/dL High 5 - 21 mg/dL [facility] Urea nitrogen/Creatinine [Mass ratio] 23 mg/mg High 10 - 20 [facility] Reference Laboratory Testing Ordered By: Ember DomainUser on 10-07-2021 Reagin Ab RPR Ql (S) Non-Reactive Invalid Interpretation Code Non Reactive [facility] SendOutsSS Comment on above: Result Comment: Perf ormed at: [facility] [address] [id number] PhD Erick Nielsen URINALYSISOrdered By: Shannon Dobbs [...] PM) Normal Negative [facility] UA Auto SS [place].plasma/[place] .RBC (Bld) [Mass ratio] 0-3 /HPF Normal [...] [facility] UA Auto SS Urobilinogen Qn (U) 0.2646690 {Gabby'U}/dL Normal 0.0 - 1.0 EU/dL [facility] [...] Result UD_BENZ:POS Called to YADY ABBOTT AT ER by JB CUEVAS And Read Back For [...] 38 mL/min/1.73 m2 Low >=59mL/min /1.73 m2 [facility] Chem S GFR/1.73 sq M.predicted among non-blacks MDRD (S/P/Bld) [Vol rate/Area] 31 mL/min/1.73 m2 Low >=59mL/min /1.73 m2 [facility] Chem S Albumin [Mass/Vol] 3.9 g/dL Normal [...] 1.9 mmol/L Normal 0.5 - 2.2 mmol/L [facility] Resp Auto SS disciplinary hearing officer+ Art 139.0 mmol/L Normal 135.0 - 145.0 mmol/L [facility] Resp Auto SS Drawn by RLG Invalid Interpretation Code [facility] Resp Auto SS FCOHb Art % Low 1.5 - 4.9 % [facility] Resp Auto SS FIO2 BG 21 Invalid Interpretation Code [facility] Resp Auto SS FMetHb Art 0.9 % Normal 0.0 - 1.9 % [facility] Resp Auto SS FO2Hb Art 92.6 % Low 93.0 - 100.0 % [facility] Resp Auto SS HCO3 (Bld) [Moles/Vol] 25.9 mmol/L Normal 22.0 - 26.0 mmol/L [facility] Resp Auto SS Hemoglobin (Bld) [Mass/Vol] 10.6 g/dL Low 12.0 - 17.0 gm/dL [facility] Resp Auto SS P CO2 Arterial 44.8 mm[Hg] Normal 35.0 - 45.0 mmHg FT Resp Auto SS P O2 Arterial 75.9 mm[Hg] Low 80.0 - 100.0 mmHg [facility] Resp Auto SS pH Arterial 7.391 Normal 7.350 - 7.450 [facility] Resp Auto SS Sample Site R Radial (10/06/21 6:03 PM) Normal [facility] Resp Auto SS Sample Type Arterial Draw (10/06/21 6:03 PM) Normal [facility] Resp Auto SS HEMATOLOGYOrdered By: SYSTEM SYSTEM on 10-06-2021 Basophils/100 WBC (Bld) 1.0 % Normal 0.0 - 2.0 % [facility] HemeAutoSS Basophils/Leukocytes Auto (Bld) [Pure # fraction] 0.1 E9/L Normal 0.0 - 0.2 E9/L [facility] HemeAutoSS Eosinophils/100 WBC (Bld) 3.4 % Normal 0.0 - 8.0 % [facility] HemeAutoSS Eosinophils/Leukocytes Auto (Bld) [Pure # fraction] 0.2 E9/L Normal 0.0 - 0.5 E9/L [facility] HemeAutoSS Lymphocytes/100 WBC (Bld) 23.3 % Normal 14.0 - 50.0 % [facility] [...] 7.4 E9/L Normal 4.0 - 11.0 E9/L [facility] HemeAutoSS Laboratory - Microbiology an d Antimicrobial susceptibilityon 10-06-2021 Bacteria identified Cx Nom (U) 1,000 cfu/ml Mixed skin contaminants [facility] MICRO OTHER TESTSOrdered By: Jb Cuevas on 10-06-2021 Rapid COV Int NEG Ctl Pass (10/06/21 8:55 PM) Normal [facility] Man Sero Rapid COV Int POS Ctl Pass (10/06/21 8:55 PM) Normal [facility] Man Sero SARS-CoV+SARS-CoV-2 (COVID-19) Ag IA.rapid Ql (Resp) Not Detected (10/06/21 8:55 PM) Normal Not Detected [facility] Man Sero No Panel Informationon 10-06 Blood Culture Charcoal No growth at 6 da ys. Final to follow at 7 days. [facility] Blood Culture Charcoal No growth at 6 da ys. Final to follow at 7 days. [facility] URINALYSISOrdered By: Jb jeter on 10-06-2021 Bilirubin [...] PM) Normal Negative [facility] UA Auto SS [place].plasma/[place] .RBC (Bld) [Mass ratio] 0-3 /HPF Normal [...] [facility] UA Auto SS Urobilinogen Qn (U) 0.0738797 {Gabby'U}/dL Normal 0.0 - 1.0 EU/dL [facility] [...] 54 mL/min/1.73 m2 Low >=59mL/min /1.73 m2 [facility] Chem S Globulin (S) [Mass/Vol] 4.4 g/dL [...] 83.7 fL Normal 80.0 - 100.0 fL [facility] HemeAutoSS Platelet mean volume (Bld) [Entitic vol] 6.5 fL Normal 6.4 - 10.8 fL [facility] HemeAutoSS Platelets (Bld) [#/Vol] 312.0 E9/L Normal 150.0 - 500.0 E9/L [facility] HemeAutoSS RBC (Bld) [#/Vol] 4.2 E12/L Low 4.3 - 5.9 E12/L [facility] HemeAutoSS WBC corrected for nucl RBC Auto (Bld) [#/Vol] 9.6 E9/L Normal 4.0 - 11.0 E9/L [facility] HemeAutoSS Tobacco Screening.on 022 Adult depression screening assessment No [facility] domo 600 DO Work Phone: Fall risk assessment b) One or more fall s in the last year [facility] dom[facility] 600 DO Work Phone: Tobacco use status CPHS b) No [facility] domo 600 DO Work Phone: Comprehensive Metabolic Pane victor m 08-11-2021 Albumin [Mass/Vol] 4.6 g/dL Normal 3.6-5.[address] [facility] [address] [facility] Comment on above: Performed By: #### C MP #### [facility] [address], [place] [id number] Albumin/Globulin [Mass ratio] 1.6 {ratio} Normal 1.0-2.5 [facility] Comment on above: Performed By: #### C MP #### [facility] [address], [place] [id number] ALP [Catalytic activity/Vol] 101 U/L Normal 40-129 [facility] Comment on above: Performed By: #### C MP #### [facility] [address], [place] [id number] ALT [Catalytic activity/Vol] 26 U/L Normal 9-46 [facility] Comment on above: Result Comment: 05/04 Female reference range changed. Performed By: #### C MP #### [facility] [address], [place] [id number] Anion gap [Moles/Vol] 20 mmol/L Normal 12-20 [facility] Comment on above: Result Comment: Effe ctive 06/09/2019 reference range changed. Performed By: #### C MP #### [facility] [address], [place] [id number] AST [Catalytic activity/Vol] 17 U/L Normal 10-40 [facility] Comment on above: Performed By: #### C MP #### [facility] [address] [place], [place] [id number] BUN/CREA 19 Ratio Normal 6-22 [facility] Comment on above: Performed By: #### C MP #### [facility] [address], [place] [id number] Calcium [Mass/Vol] 9.0 mg/dL Normal 8.6-10.2 [facility] [address] [facility] Comment on above: Performed By: #### C MP #### [facility] [address], [place] [id number] Chloride [Moles/Vol] 101 mmol/L Normal 98-107 [facility] Comment on above: Performed By: #### C MP #### [facility] [address], [place] [id number] CO2 [Moles/Vol] 24 mmol/L Normal 20-31 [facility] Comment on above: Performed By: #### C MP #### [facility] [address], [place] [id number] Creatinine [Mass/Vol] 1.4 mg/dL Normal 0.7-1.4 [facility] Comment on above: Performed By: #### C MP #### [facility] [address], [place] [id number] eGFRAA 63 mL/min/1.73m2 Normal >60 [facility] Comment on above: Performed By: #### C MP #### [facility] [address], [place] [id number] eGFRNAA 52 mL/min/1.73m2 Low >60 [facility] Comment on above: Performed By: #### C MP #### [facility] [address], [place] [id number] Globulin (S) [Mass/Vol] 2.8 g/dL Normal 1.9-3.7 [facility] Comment on above: Performed By: #### C MP #### [facility] [address], [place] [id number] Glucose [Mass/Vol] 197 mg/dL High 65-99 [facility] [address] [facility] Comment on above: Result Comment: For FASTING Glucose --- ADA reference ranges: Normal 65-99 mg/dl Prediabetes 100-125 Diabetes >/= 126 Performed By: #### C MP #### [facility] [address], [place] [id number] Potassium [Moles/Vol] 5.1 mmol/L Normal 3.5-5.5 [facility] Comment on above: Performed By: #### C MP #### [facility] [address], [place] [id number] Protein [Mass/Vol] 7.4 g/dL Normal 6.1-8.1 [facility] Specialist Comment on above: Performed By: #### C MP #### [facility] [address], [place] [id number] Sodium [Moles/Vol] 140 mmol/L Normal 135-146 [facility] Specialist Comment on above: Performed By: #### C MP #### [facility] [address], [place] [id number] TBIL <0.3 Normal [facility] Comment on above: Performed By: #### C MP #### [facility] [address], [place] [id number] Urea nitrogen [Mass/Vol] 25 mg/dL Normal 7-25 [facility] Comment on above: Performed By: #### C MP #### [facility] [address], [place] [id number] Complete Blood Count with Au to Diffon 07-27-2021 Basophils (Bld) [#/Vol] 0.11 10*3/uL Normal 0.00-0.20 [facility] Comment on above: Performed By: #### C BCAD, CMP #### [facility] [address], [place] [id number] Basophils/100 WBC (Bld) 0.9 % Normal [facility] Comment on above: Performed By: #### C BCAD, CMP #### [facility] [address], [place] [id number] Eosinophils (Bld) [#/Vol] 0.24 10*3/uL Normal 0.02-0.50 [facility] Comment on above: Performed By: #### C BCAD, CMP #### [facility] [address], [place] [id number] Eosinophils/100 WBC (Bld) 2.1 % Normal [facility] Comment on above: Performed By: #### C MARILEE, CMP #### [facility] [address], [place] [id number] Erythrocyte distribution width (RBC) [Ratio] 16.9 % High 11.0-15.0 [facility] Comment on above: Performed By: #### C MARILEE, CMP #### [facility] [address], [place] [id number] Hematocrit (Bld) [Volume fraction] 35.1 % Low 38.5-50.0 [facility] Comment on above: Performed By: #### C MARILEE, CMP #### [facility] [address], [place] [id number] Hemoglobin (Bld) [Mass/Vol] 10.7 g/dL Low 13.0-17.1 [facility] Comment on above: Performed By: #### C MARILEE, CMP #### [facility] [address], [place] [id number] Lymphocytes (Bld) [#/Vol] 2.0 10*3/uL Normal 0.9-3.9 [facility] Comment on above: Performed By: #### C MARILEE, CMP #### [facility] [address], [place] [id number] Lymphocytes/100 WBC (Bld) 17.4 % Normal [facility] Comment on above: Performed By: #### C MARILEE, CMP #### [facility] [address], [place] [id number] MCH (RBC) [Entitic mass] 26.8 pg Low 27.0-33.0 [facility] Comment on above: Performed By: #### C BCAJacob, CMP #### [facility] [address], [place] [id number] MCHC (RBC) [Mass/Vol] 30.5 g/dL Low 32.0-36.0 [facility] Comment on above: Performed By: #### C MARILEE, CMP #### [facility] [address], [place] [id number] MCV (RBC) [Entitic vol] 88 fL Normal 80-100 [facility] Comment on above: Performed By: #### Talya HUNT, CMP #### [facility] [address], [place] [id number] Monocytes (Bld) [#/Vol] 0.8 10*3/uL Normal 0.2-0.9 [facility] Comment on above: Performed By: #### Talya HUNT, CMP #### [facility] [address], [place] [id number] Monocytes/100 WBC (Bld) 6.4 % Normal [facility] Comment on above: Performed By: #### Talya HUNT, CMP #### [facility] Laboratory [address], [place] [id number] Neutrophils (Bld) [#/Vol] 8.4 10*3/uL High 1.5-7.8 [facility] Comment on above: Performed By: #### Talya HUNT, CMP #### [facility] [address], [place] [id number] Neutrophils/100 WBC (Bld) 71.9 % Normal [facility] Comment on above: Performed By: #### Talya HUNT, CMP #### [facility] [address], [place] [id number] Platelet mean volume (Bld) [Entitic vol] 9.00 fL Normal 7.50-12.50 [facility] Comment on above: Performed By: #### Talya HUNT, CMP #### [facility] [address], [place] [id number] Platelets (Bld) [#/Vol] 406 10*3/uL High 140-400 [facility] Comment on above: Performed By: #### Talya HUNT, CMP #### [facility] [address], [place] [id number] RBC (Bld) [#/Vol] 3.99 10*6/uL Low 4.20-5.80 [facility] Specialist Comment on above: Performed By: #### Talya HUNT, CMP #### [facility] [address], [place] [id number] RDW-SD 54.1 fL High 37.0-50.0 [facility] Comment on above: Performed By: #### C BCAD, CMP #### [facility] [address], [place] [id number] WBC (Bld) [#/Vol] 11.7 10*3/uL High 3.8-11.[address] [facility] Comment on above: Performed By: #### C BCAD, CMP #### [facility] [address], [place] [id number] Comprehensive Metabolic Pane victor m 07-27-2021 Albumin [Mass/Vol] 4.7 g/dL Normal 3.6-5.1 [facility] Comment on above: Performed By: #### C BCAD, CMP #### [facility] [address], [place] [id number] Albumin/Globulin [Mass ratio] 1.5 {ratio} Normal 1.0-2.5 [facility] Specialist Comment on above: Performed By: #### C BCAD, CMP #### [facility] [address], [place] [id number] ALP [Catalytic activity/Vol] 137 U/L High 40-129 [facility] Specialist Comment on above: Performed By: #### C BCAD, CMP #### [facility] [address], [place] [id number] ALT [Catalytic activity/Vol] 43 U/L Normal 9-46 [facility] Specialist Comment on above: Result Comment: 05/04 Female reference range changed. Performed By: #### C BCAD, CMP #### [facility] [address], [place] [id number] Anion gap [Moles/Vol] 27 mmol/L High 12-20 [facility] Comment on above: Result Comment: Effe ctive 06/09/2019 reference range changed. Performed By: #### C BCAD, CMP #### [facility] [address], [place] [id number] AST [Catalytic activity/Vol] 30 U/L Normal 10-40 [facility] Specialist Comment on above: Performed By: #### C BCAD, CMP #### [facility] [address], [place] [id number] Bilirubin [Mass/Vol] 0.32 mg/dL Normal 0.30-1.20 [facility] Comment on above: Performed By: #### C BCAD, CMP #### [facility] [address], [place] [id number] BUN/CREA 29 Ratio High 6-22 [facility] Comment on above: Performed By: #### C BCAD, CMP #### [facility] [address], [place] [id number] Calcium [Mass/Vol] 9.3 mg/dL Normal 8.6-10.2 [facility] Comment on above: Performed By: #### C BCAD, CMP #### [facility] [address], [place] [id number] Chloride [Moles/Vol] 93 mmol/L Low 98-107 [facility] Comment on above: Performed By: #### C BCAD, CMP #### [facility] [address], [place] [id number] CO2 [Moles/Vol] 21 mmol/L Normal 20-31 [facility] Comment on above: Performed By: #### C BCAD, CMP #### [facility] [address], [place] [id number] Creatinine [Mass/Vol] 1.7 mg/dL High 0.7-1.4 [facility] Comment on above: Performed By: #### C BCAD, CMP #### [facility] [address], [place] [id number] eGFRAA 49 mL/min/1.73m2 Low >60 [facility] Comment on above: Performed By: #### C BCAD, CMP #### [facility] [address], [place] [id number] eGFRNAA 40 mL/min/1.73m2 Low >60 [facility] Comment on above: Performed By: #### C BCAD, CMP #### [facility] [address], [place] [id number] Globulin (S) [Mass/Vol] 3.2 g/dL Normal 1.9-3.[address] [facility] [address] [facility] Comment on above: Performed By: #### C BCAD, CMP #### [facility] [address], [place] [id number] Glucose [Mass/Vol] 260 mg/dL High 65-[address] [facility] Comment on above: Result Comment: For FASTING Glucose --- ADA reference ranges: Normal 65-99 mg/dl Prediabetes 100-125 Diabetes >/= 126 Performed By: #### C BCAD, CMP #### [facility] [address], [place] [id number] Potassium [Moles/Vol] 5.4 mmol/L Normal 3.5-5.5 [facility] Specialist Comment on above: Performed By: #### C BCAD, CMP #### [facility] [address], [place] [id number] Protein [Mass/Vol] 7.9 g/dL Normal 6.1-8.[address] [facility] Comment on above: Performed By: #### C BCAD, CMP #### [facility] [address], [place] [id number] Sodium [Moles/Vol] 136 mmol/L Normal 135-[address] [facility] [address] [facility] Comment on above: Performed By: #### C BCAD, CMP #### [facility] [address], [place] [id number] Urea nitrogen [Mass/Vol] 49 mg/dL High 7-[address] [facility] [address] [facility] Comment on above: Performed By: #### C BCAD, CMP #### [facility] [address], [place] [id number] Tobacco Screening.on 022 Fall risk assessment b) One or more fall s in the last year [facility] 600 DO Work Phone: Tobacco use status [facility] b) No [facility] lucierna 600 DO Work Phone: Laboratory - Microbiology an d Antimicrobial susceptibilityon 05-10-2021 SARS-CoV-2 (COVID-19) RNA JOLANTA+probe Ql (Unsp spec) [facility] [address] [place] Work Phone: Tobacco Screening.on 021 Fall risk assessment a) No falls within the last year [facility] Marcus PattenA [place] Work Phone: Tobacco use status CP b) No [facility] PattenA [place] Work Phone: No Panel Informationon 04-27 Normal [facility] Marcus PattenA [place] Work Phone: Falls Risk Screeningon 03-15 Fall risk assessment b) One or more fall s in the last year [facility] [employer] Patten DO Work Phone: Heart Rate Bounding [facility] Marcus Patten DO Work Phone: IO EKG Electrocardiogram- 12 Leadon 03-15-2021 IO EKG Electrocardiogram- 12 Lead See Scanned Document [facility] [employer] NetworksEwelina Patten DO Work Phone: Vital Signs Date Time Vital Sign Value Performing Clinician Facility 03-06-2024 13:46-0400 Body height 177.8 cm Mona Baker MD Work Phone: [facility] 03-06-2024 13:46-0400 Body mass index (BMI) [Ratio] 31.6 kg/m2 Mona Baker MD Work Phone: [facility] 03-06-2024 13:46-0400 Body temperature 97.81 [degF] Mona Baker MD Work Phone: [facility] 03-06-2024 13:46-0400 Body weight 99.88 kg Mona Baker MD Work Phone: [facility] 03-06-2024 13:46-0400 Diastolic blood pressure 70 mm[Hg] Moan Baker MD Work Phone: [facility] 03-06-2024 13:46-0400 Heart rate 60 /min Mona Baker MD Work Phone: [facility] 03-06-2024 13:46-0400 SaO2% (BldA) [Mass fraction] 97 % Mona Baker MD Work Phone: [facility] 03-06-2024 13:46-0400 Systolic blood pressure 120 mm[Hg] Mona Baker MD Work Phone: [facility] 03-04-2024 14:00-0400 Hourly Rounding [facility] 03-04-2024 14:00-0400 Promise to Return [facility] 03-04-2024 13:23-0400 Hourly Rounding [facility] 03-04-2024 13:23-0400 Promise to Return [facility] 03-04-2024 12:45-0400 Heart rate 68 /min [facility] 03-04-2024 12:45-0400 Respiratory rate 20 /min [facility] 03-04-2024 12:38-0400 Heart rate 67 /min [facility] 03-04-2024 12:38-0400 Respiratory rate 20 /min [facility] 03-04-2024 12:00-0400 Hourly Rounding [facility] 03-04-2024 12:00-0400 Promise to Return [facility] 03-04-2024 11:15-0400 Heart rate 60 /min [facility] 03-04-2024 11:15-0400 SaO2% (BldA) [Mass fraction] 94 % [facility] 03-04-2024 11:14-0400 Diastolic blood pressure 64 mm[Hg] [facility] 03-04-2024 11:14-0400 Mean blood pressure 78 mm[Hg] [facility] 03-04-2024 11:14-0400 Systolic blood pressure 106 mm[Hg] [facility] 03-04-2024 11:13-0400 Body temperature 98.6 [degF] [facility] 03-04-2024 09:34-0400 SaO2% (BldA) [Mass fraction] 94 % [facility] 03-04-2024 08:41-0400 Respiratory rate 18 /min [facility] 03-04-2024 08:41-0400 SaO2% (BldA) [Mass fraction] 100 % [facility] 03-04-2024 08:16-0400 Diastolic blood pressure 70 mm[Hg] [facility] 03-04-2024 08:16-0400 Systolic blood pressure 144 mm[Hg] [facility] 03-04-2024 07:44-0400 Diastolic blood pressure 70 mm[Hg] [facility] 03-04-2024 07:44-0400 Mean blood pressure 95 mm[Hg] [facility] 03-04-2024 07:44-0400 Systolic blood pressure 144 mm[Hg] [facility] 03-04-2024 07:44-0400 Body temperature 98.06 [degF] [facility] 03-04-2024 02:21-0400 Blood Pressure Location [facility] 03-04-2024 02:21-0400 Body temperature 98.24 [degF] [facility] 03-04-2024 02:21-0400 Mean blood pressure 84 mm[Hg] [facility] 03-03-2024 21:42-0400 Mean blood pressure 89 mm[Hg] [facility] 03-03-2024 21:41-0400 Body temperature 98.06 [degF] [facility] 03-03-2024 05:00-0400 Blood Pressure Location [facility] 03-03-2024 05:00-0400 Body temperature 97.52 [degF] [facility] 03-03-2024 05:00-0400 Mean blood pressure 113 mm[Hg] [facility] 03-03-2024 05:00-0400 Respiratory rate 18 /min [facility] 03-03-2024 00:00-0400 Blood Pressure Location [facility] 03-03-2024 00:00-0400 Mean blood pressure 107 mm[Hg] [facility] 03-03-2024 00:00-0400 Respiratory rate 18 /min [facility] 03-02-2024 12:30-0400 Body temperature 98.24 [degF] [facility] 03-02-2024 12:30-0400 Heart rate 63 /min [facility] 03-02-2024 11:54-0400 Respiratory rate 20 /min [facility] 03-02-2024 08:25-0400 SaO2% (BldA) [Mass fraction] 92.8 % [facility] 03-02-2024 08:08-0400 Heart rate 67 /min [facility] 01-23-2024 11:34-0400 Blood Pressure Location Nicolás Diggs [facility] 01-23-2024 11:34-0400 Diastolic blood pressure 70 mm[Hg] Nicolás Diggs [facility] 01-23-2024 11:34-0400 Heart rate 60 /min Basem Diggs [facility] 01-23-2024 11:34-0400 SaO2% (BldA) [Mass fraction] 97 % Basem Diggs [facility] 01-23-2024 11:34-0400 Systolic blood pressure 125 mm[Hg] Basem Diggs [facility] 01-03-2024 14:51-0400 Body height 177.8 cm MD Mona Baker Work Phone: [facility] 01-03-2024 14:51-0400 Body mass index (BMI) [Ratio] 32.5 kg/m2 MD Mona Baker Work Phone: [facility] 01-03-2024 14:51-0400 Body temperature 97.8 [degF] MD Mona Baker Work Phone: [facility] 01-03-2024 14:51-0400 Body weight 102.96 kg MD Mona Baker Work Phone: [facility] 01-03-2024 14:51-0400 Diastolic blood pressure 73 mm[Hg] MD Mona Baker Work Phone: [facility] 01-03-2024 14:51-0400 Heart rate 60 /min MD Mona Baker Work Phone: [facility] 01-03-2024 14:51-0400 Systolic blood pressure 160 mm[Hg] MD Mona Baker Work Phone: [facility] 12-05-2023 10:09-0400 Diastolic blood pressure 70 mm[Hg] Basem Diggs [facility] 12-05-2023 10:09-0400 Heart rate 61 /min Basem Diggs [facility] 12-05-2023 10:09-0400 Respiratory rate 16 /min Basem Diggs [facility] 12-05-2023 10:09-0400 SaO2% (BldA) [Mass fraction] 96 % Basem Diggs [facility] 12-05-2023 10:09-0400 Systolic blood pressure 126 mm[Hg] Basem Diggs [facility] 11-26-2023 13:56-0400 Body height 177.8 cm MD Mona Baker Work Phone: [facility] 11-26-2023 13:56-0400 Body mass index (BMI) [Ratio] 33 kg/m2 MD Mona Baker Work Phone: [facility] 11-26-2023 13:56-0400 Body temperature 98.5 [degF] MD Mona Baker Work Phone: [facility] 11-26-2023 13:56-0400 Body weight 104.32 kg MD Mona Baker Work Phone: [facility] 11-26-2023 13:56-0400 Diastolic blood pressure 52 mm[Hg] MD Mona Baker Work Phone: [facility] 11-26-2023 13:56-0400 Heart rate 59 /min MD Mona Baker Work Phone: [facility] 11-26-2023 13:56-0400 Systolic blood pressure 125 mm[Hg] MD Mona Baker Work Phone: [facility] 11-22-2023 14:00-0400 Blood Pressure Location Aramni Yarbrough [facility] 11-22-2023 14:00-0400 Body temperature 98.24 [degF] Armani Yarbrough [facility] 11-22-2023 14:00-0400 Diastolic blood pressure 71 mm[Hg] Armani Yarbrough [facility] 11-22-2023 14:00-0400 Heart rate 59 /min [facility] 11-22-2023 14:00-0400 Respiratory rate 18 /min [facility] 11-22-2023 14:00-0400 SaO2% (BldA) [Mass fraction] 92 % [facility] 11-22-2023 14:00-0400 Systolic blood pressure 145 mm[Hg] [facility] 11-15-2023 14:42-0400 Blood Pressure [facility] 11-15-2023 14:42-0400 Body temperature 98.6 [degF] [facility] 11-15-2023 14:42-0400 Diastolic blood pressure 73 mm[Hg] [facility] 11-15-2023 14:42-0400 Heart rate 58 /min [facility] 11-15-2023 14:42-0400 Mean blood pressure 99 mm[Hg] Armanijustice Yarbrough [facility] 11-15-2023 14:42-0400 Respiratory rate 16 /min Armanijustice Yarbrough [facility] 11-15-2023 14:42-0400 SaO2% (BldA) [Mass fraction] 94 % [facility] 11-15-2023 14:42-0400 Systolic blood pressure 152 mm[Hg] [facility] 10-31-2023 13:56-0400 Body temperature 98.6 [degF] [facility] 10-31-2023 13:56-0400 Diastolic blood pressure 66 mm[Hg] [facility] 10-31-2023 13:56-0400 Heart rate 59 /min Armani Yarbrough [facility] 10-31-2023 13:56-0400 Mean blood pressure 81 mm[Hg] Armani Yarbrough [facility] 10-31-2023 13:56-0400 Respiratory rate 16 /min Armani Yarbrough [facility] 10-31-2023 13:56-0400 SaO2% (BldA) [Mass fraction] 95 % Armani Yarbrough [facility] 10-31-2023 13:56-0400 Systolic blood pressure 112 mm[Hg] Armani Yarbrough [facility] 10-30-2023 11:18-0400 Body height 177.8 cm Ye Lobo MD Work Phone: [facility] 10-30-2023 11:18-0400 Body mass index (BMI) [Ratio] 32.57 kg/m2 Ye Lobo MD Work Phone: [facility] 10-30-2023 11:18-0400 Body weight 102.97 kg Ye Lobo MD Work Phone: [facility] 10-30-2023 11:18-0400 Diastolic blood pressure 63 mm[Hg] Ye Lobo MD Work Phone: [facility] 10-30-2023 11:18-0400 Heart rate 68 /min Ye Lobo MD Work Phone: [facility] 10-30-2023 11:18-0400 Respiratory rate 16 /min Ye Lobo MD Work Phone: [facility] 10-30-2023 11:18-0400 SaO2% (BldA) [Mass fraction] 94 % Ye Lobo MD Work Phone: [facility] 10-30-2023 11:18-0400 Systolic blood pressure 130 mm[Hg] Ye Lobo MD Work Phone: [facility] 10-18-2023 15:30-0400 Body height 177.8 cm MD Mona Baker Work Phone: [facility] 10-18-2023 15:30-0400 Body mass index (BMI) [Ratio] 32.5 kg/m2 MD Mona Baker Work Phone: [facility] 10-18-2023 15:30-0400 Body temperature 97.8 [degF] MD Mona Baker Work Phone: [facility] 10-18-2023 15:30-0400 Body weight 103 kg MD Mona Baker Work Phone: [facility] 10-18-2023 15:30-0400 Diastolic blood pressure 59 mm[Hg] MD Mona Baker Work Phone: [facility] 10-18-2023 15:30-0400 Heart rate 59 /min MD Mona Baker Work Phone: [facility] 10-18-2023 15:30-0400 Systolic blood pressure 134 mm[Hg] MD Mona Baker Work Phone: [facility] 10-17-2023 10:38-0400 Body height 177.8 cm Felipa Milligan MD Work Phone: [facility] 10-17-2023 10:38-0400 Body mass index (BMI) [Ratio] 32.28 kg/m2 Felipa Milligan MD Work Phone: [facility] 10-17-2023 10:38-0400 Body weight 102.06 kg Felipa Milligan MD Work Phone: [facility] 10-17-2023 10:38-0400 Diastolic blood pressure 66 mm[Hg] Felipa Milligan MD Work Phone: [facility] 10-17-2023 10:38-0400 Heart rate 60 /min Felipa Milligan MD Work Phone: [facility] 10-17-2023 10:38-0400 Systolic blood pressure 126 mm[Hg] Felipa Milligan MD Work Phone: [facility] 09-06-2023 09:01-0400 Diastolic blood pressure 57 mm[Hg] MD Mona Baker Work Phone: [facility] 09-06-2023 09:01-0400 Heart rate 60 /min MD Mona Baker Work Phone: [facility] 09-06-2023 09:01-0400 Respiratory rate 16 /min MD Mona Baker Work Phone: [facility] 09-06-2023 09:01-0400 SaO2% (BldA) [Mass fraction] 96 % MD Mona Bakre Work Phone: [facility] 09-06-2023 09:01-0400 Systolic blood pressure 124 mm[Hg] MD Mona Baker Work Phone: [facility] 09-06-2023 07:29-0400 Body height 177.8 cm MD Mona Baker Work Phone: [facility] 09-06-2023 07:29-0400 Body weight 99.79 kg MD Mona Baker Work Phone: [facility] 08-29-2023 15:00-0400 Hourly Rounding [facility] 08-29-2023 15:00-0400 Promise to Return [facility] 08-29-2023 14:00-0400 Diastolic blood pressure 61 mm[Hg] [facility] 08-29-2023 14:00-0400 Heart rate 61 /min [facility] 08-29-2023 14:00-0400 Hourly Rounding [facility] 08-29-2023 14:00-0400 Promise to Return [facility] 08-29-2023 14:00-0400 Systolic blood pressure 124 mm[Hg] [facility] 08-29-2023 13:00-0400 Hourly Rounding [facility] 08-29-2023 13:00-0400 Promise to Return [facility] 08-29-2023 11:59-0400 gluc 205 mg/dL [facility] 08-29-2023 11:33-0400 Heart rate 60 /min [facility] 08-29-2023 11:33-0400 SaO2% (BldA) [Mass fraction] 98 % [facility] 08-29-2023 11:32-0400 Respiratory rate 17 /min [facility] 08-29-2023 11:25-0400 Diastolic blood pressure 67 mm[Hg] [facility] 08-29-2023 11:25-0400 Mean blood pressure 90 mm[Hg] [facility] 08-29-2023 11:25-0400 Systolic blood pressure 136 mm[Hg] [facility] 08-29-2023 11:25-0400 Body temperature 98.42 [degF] [facility] 08-29-2023 08:27-0400 gluc 109 mg/dL [facility] 08-29-2023 08:14-0400 Heart rate 60 /min [facility] 08-29-2023 08:14-0400 SaO2% (BldA) [Mass fraction] 96 % [facility] 08-29-2023 08:14-0400 Respiratory rate 20 /min [facility] 08-29-2023 08:08-0400 Diastolic blood pressure 82 mm[Hg] [facility] 08-29-2023 08:08-0400 Mean blood pressure 96 mm[Hg] [facility] 08-29-2023 08:08-0400 Systolic blood pressure 125 mm[Hg] [facility] 08-29-2023 08:08-0400 Body temperature 98.42 [degF] [facility] 08-29-2023 08:08-0400 Mean blood pressure 96 mm[Hg] [facility] 08-29-2023 00:05-0400 Blood Pressure Location [facility] 08-29-2023 00:05-0400 Body temperature 98.42 [degF] [facility] 08-29-2023 00:05-0400 Respiratory rate 16 /min [facility] 08-29-2023 00:05-0400 SaO2% (BldA) [Mass fraction] 94 % [facility] 08-28-2023 20:19-0400 Body temperature 98.06 [degF] [facility] 08-28-2023 20:19-0400 Mean blood pressure 76 mm[Hg] [facility] 08-28-2023 15:00-0400 gluc 185 mg/dL [facility] 08-28-2023 15:00-0400 Respiratory rate 18 /min [facility] 08-28-2023 04:00-0400 Body temperature 98.24 [degF] [facility] 08-28-2023 04:00-0400 Heart rate 60 /min [facility] 08-28-2023 04:00-0400 Mean blood pressure 87 mm[Hg] [facility] 08-28-2023 01:49-0400 Blood Pressure Location [facility] 08-28-2023 01:49-0400 Body temperature 97.52 [degF] [facility] 08-28-2023 01:49-0400 Heart rate 60 /min Rosi [facility] 08-28-2023 01:25-0400 Mean blood pressure 88 mm[Hg] Rosi [facility] 08-28-2023 01:25-0400 Respiratory rate 10 /min [facility] 08-28-2023 00:45-0400 Respiratory rate 12 /min [facility] 08-27-2023 20:38-0400 Heart rate 60 /min [facility] 07-16-2023 13:15-0500 Body height 177.8 cm Janusz Ruiz Other [employer] [facility] [employer] Other 07-16-2023 13:15-0500 Body mass index (BMI) [Ratio] 32.71 kg/m2 Janusz Ruiz Other [employer] Other 07-16-2023 13:15-0500 Body temperature 97.4 [degF] Janusz Ruiz Other [employer] Other 07-16-2023 13:15-0500 Body weight 103.42 kg Janusz Ruiz Other [employer] Other 07-16-2023 13:15-0500 Diastolic blood pressure 55 mm[Hg] Janusz Ruiz Other [employer] Other 07-16-2023 13:15-0500 Systolic blood pressure 146 mm[Hg] Janusz Ruiz Other [employer] Other 06-17-2023 16:29-0500 Inhaled oxygen flow rate 2 L/min MD Mona Baker [facility] 06-17-2023 16:27-0500 SaO2% (BldA) [Mass fraction] 96 % MD Mona [facility] 06-17-2023 15:56-0500 Heart rate 60 /min Monaandi Baker [facility] 06-17-2023 15:53-0500 Body height 172.72 cm Monaandi Baker [facility] 06-17-2023 15:53-0500 Body weight 104.77 kg Mona Olivia [facility] 06-17-2023 15:52-0500 Body temperature 98.3 [degF] MD Mona Baker [facility] 06-17-2023 15:52-0500 Diastolic blood pressure 67 mm[Hg] [facility] 06-17-[facility]23 15:52-0500 Respiratory rate 18 /min MD Mona Baker [facility] 06-17-2023 15:52-0500 Systolic blood pressure 146 mm[Hg] Mona [facility] 04-12-2023 09:00-0500 [facility] 04-12-[facility] 09:00-0500 Body temperature 97.88 [degF] [facility] 04-12-2023 09:00-0500 Diastolic blood pressure 64 mm[Hg] [facility] 04-12-2023 09:00-0500 Heart rate 60 /min [facility] 04-12-2023 09:00-0500 Mean blood pressure 80 mm[Hg] [facility] 04-12-2023 09:00-0500 Respiratory rate 18 /min [facility] 04-12-2023 09:00-0500 SaO2% (BldA) [Mass fraction] 95 % [facility] 04-12-2023 09:00-0500 Systolic blood pressure 113 mm[Hg] [facility] 04-09-2023 09:23-0500 Blood Pressure Location Basem [facility] 04-09-2023 09:23-0500 Diastolic blood pressure 58 mm[Hg] [employer] [facility] 04-09-2023 09:23-0500 Heart rate 60 /min [employer] [facility] 04-09-2023 09:23-0500 SaO2% (BldA) [Mass fraction] 98 % [employer] [facility] 04-09-2023 09:23-0500 Systolic blood pressure 105 mm[Hg] [employer] [facility] 04-04-2023 12:08-0400 Body height 177.8 cm Felipa Milligan MD Work Phone: [facility] 04-04-2023 12:08-0400 Body mass index (BMI) [Ratio] 31.71 kg/m2 Felipa Milligan MD Work Phone: [facility] 04-04-2023 12:08-0400 Body weight 100.25 kg Felipa Milligan MD Work Phone: [facility] 04-04-2023 12:08-0400 Diastolic blood pressure 62 mm[Hg] Felipa Milligan MD Work Phone: [facility] 04-04-2023 12:08-0400 Heart rate 60 /min Felipa Milligan MD Work Phone: [facility] 04-04-2023 12:08-0400 Systolic blood pressure 110 mm[Hg] Felipa Milligan MD Work Phone: [facility] 03-26-2023 13:31-0400 Body height 177.8 cm Jackie Mcginnis MD Work Phone: [facility] 03-26-2023 13:31-0400 Body mass index (BMI) [Ratio] 31.71 kg/m2 Jackie Mcginnis MD Work Phone: [facility] 03-26-2023 13:31-0400 Body weight 100.25 kg Jackie Mcginnis MD Work Phone: [facility] 03-26-2023 13:31-0400 Diastolic blood pressure 64 mm[Hg] Jackie Mcginnis MD Work Phone: [facility] 03-26-2023 13:31-0400 Heart rate 58 /min Jackie Mcginnis MD Work Phone: [facility] 03-26-2023 13:31-0400 Systolic blood pressure 139 mm[Hg] Jackie Mcginnis MD Work Phone: [facility] 02-20-2023 14:17-0400 Diastolic blood pressure 67 mm[Hg] Keisha Littleirk MANAGER AGRICULTURAL - FURNITURE SANDER Work Phone: [employer] 02-20-2023 14:17-0400 Heart rate 60 /min Keisha Littleirk MANAGER AGRICULTURAL - FURNITURE SANDER Work Phone: [employer] 02-20-2023 14:17-0400 Systolic blood pressure 146 mm[Hg] Keisha Littleirk MANAGER AGRICULTURAL - FURNITURE SANDER Work Phone: [employer] 02-20-2023 14:16-0400 Body height 172.7 cm Keisha Littleirk MANAGER AGRICULTURAL - FURNITURE SANDER Work Phone: [employer] 02-20-2023 14:16-0400 Body mass index (BMI) [Ratio] 34.85 kg/m2 Keisha Littleiremma MANAGER AGRICULTURAL - FURNITURE SANDER Work Phone: [employer] 02-20-2023 14:16-0400 Body weight 103.96 kg Keisha Littleiremma MANAGER AGRICULTURAL - FURNITURE SANDER Work Phone: [employer] 01-15-2023 13:00-0400 Body height 177.8 cm Janusz Ruiz Other [employer] Other 01-15-2023 13:00-0400 Body mass index (BMI) [Ratio] 33.14 kg/m2 Janusz Ruiz Other [employer] Other 01-15-2023 13:00-0400 Body temperature 97.7 [degF] Janusz Ruiz Other [employer] Other 01-15-2023 13:00-0400 Body weight 104.78 kg Jnausz Ruiz Other [employer] Other 01-15-2023 13:00-0400 Diastolic blood pressure 56 mm[Hg] Janusz Ruiz Other [employer] Other 01-15-2023 13:00-0400 Systolic blood pressure 145 mm[Hg] Janusz Ruiz Other [employer] Other 11-20-2022 15:12-0400 Body height 177.8 cm Mona Jens Olivia Work Phone: IX-Vnpcuaiwm-Jffomf ke B 101 Work Phone: 11-20-2022 15:12-0400 Body mass index (BMI) [Ratio] 32.86 kg/m2 Mona M Olivia Work Phone: ER-Prdckhmgm-Vkvnqp ke B 101 Work Phone: 11-20-2022 15:12-0400 Body surface area Derived from formula 2.21 m2 Mona M Olivia Work Phone: PP-Gpdybxqkj-Rztpvp ke B 101 Work Phone: 11-20-2022 15:12-0400 Body weight 103.87 kg Mona M Olivia Work Phone: WN-Cslaqgdbs-Ifkrcz ke B 101 Work Phone: 11-20-2022 15:12-0400 Diastolic blood pressure 54 mm[Hg] Mona M Olivia Work Phone: XE-Udmqjqwnr-Egwpfh ke B 101 Work Phone: 11-20-2022 15:12-0400 Heart rate 59 /min Mona M Olivia Work Phone: IA-Ttddruvol-Bxnbfk ke B 101 Work Phone: 11-20-2022 15:12-0400 Systolic blood pressure 128 mm[Hg] Mona M Olivia Work Phone: FB-Foslitwih-Ndgmgi ke B 101 Work Phone: 09-22-2022 15:18-0400 Body height 177.8 cm Mona M Olivia Work Phone: [facility] 600 DO Work Phone: 09-22-2022 15:18-0400 Body mass index (BMI) [Ratio] 32 kg/m2 Mona M Olivia Work Phone: [facility] 600 DO Work Phone: 09-22-2022 15:18-0400 Body surface area Derived from formula 2.19 m2 Mona M Olivia Work Phone: [facility] 600 DO Work Phone: 09-22-2022 15:18-0400 Body weight 101.15 kg Mona M Olivia Work Phone: [facility] 600 DO Work Phone: 09-22-2022 15:18-0400 Diastolic blood pressure 66 mm[Hg] Mona M Olivia Work Phone: [facility] 600 DO Work Phone: 09-22-2022 15:18-0400 Heart rate 60 /min [facility] M [facility] 600 DO Work Phone: 09-22-2022 15:18-0400 Systolic blood pressure 128 mm[Hg] Mona Baker Work Phone: [facility] 600 DO Work Phone: 09-22-2022 12:02-0400 Blood Pressure Location Andi WARE [facility] 09-22-2022 12:02-0400 Diastolic blood pressure 63 mm[Hg] Andi WARE [facility] 09-22-2022 12:02-0400 Heart rate 69 /min Andi WARE [facility] 09-22-2022 12:02-0400 Respiratory rate 16 /min Andi WARE [facility] 09-22-2022 12:02-0400 Systolic blood pressure 112 mm[Hg] Andi WARE [facility] 08-16-2022 13:35-0400 Blood Pressure Location Andi WARE [facility] 08-16-2022 13:35-0400 Diastolic blood pressure 54 mm[Hg] Andi WARE [facility] 08-16-2022 13:35-0400 Heart rate 65 /min Andi WARE [facility] 08-16-2022 13:35-0400 Systolic blood pressure 124 mm[Hg] Andi WARE [facility] 08-09-2022 15:39-0500 Blood Pressure Location Andi WARE [facility] 08-09-2022 15:39-0500 Diastolic blood pressure 67 mm[Hg] Andi WARE [facility] 08-09-2022 15:39-0500 Heart rate 63 /min Andi WARE [facility] 08-09-2022 15:39-0500 Systolic blood pressure 141 mm[Hg] Andi WARE [facility] 07-31-2022 11:34-0500 Body height 177.8 cm Mona M Olivia Work Phone: OJ-Azvntaody-Asjgrv ke B 101 DO Work Phone: 07-31-2022 11:34-0500 Body mass index (BMI) [Ratio] 32.57 kg/m2 Mona M Olivia Work Phone: VH-Gkcdvavtv-Jeyfbk ke B 101 DO Work Phone: 07-31-2022 11:34-0500 Body surface area Derived from formula 2.2 m2 Mona M Olivia Work Phone: AC-Qhgansibn-Keuopp ke B 101 DO Work Phone: 07-31-2022 11:34-0500 Body weight 102.97 kg Mona M Olivia Work Phone: ZW-Rivbzdawc-Rbrbqi ke B 101 DO Work Phone: 07-31-2022 11:34-0500 Diastolic blood pressure 62 mm[Hg] Mona M Olivia Work Phone: FO-Ftfyvdsfz-Dbibfd ke B 101 DO Work Phone: 07-31-2022 11:34-0500 Heart rate 58 /min Mona M Olivia Work Phone: NJ-Wjtucxzwz-Gyanma ke B 101 DO Work Phone: 07-31-2022 11:34-0500 Systolic blood pressure 137 mm[Hg] Mona Baker Work Phone: [facility] 101 DO Work Phone: 07-25-2022 13:25-0500 Diastolic blood pressure 58 mm[Hg] [facility] 13:25-0500 Heart rate 60 /min Mona Olivia [facility] 07-25-2022 13:25-0500 Respiratory rate 16 /min Mona [facility] 07-25-2022 13:25-0500 SaO2% (BldA) [Mass fraction] 92 % Mona [facility] 07-25-2022 13:25-0500 Systolic blood pressure 117 mm[Hg] Mona [facility] 07-25-2022 12:13-0500 Body temperature 98.1 [degF] MD Dunn [facility] 07-25-2022 12:13-0500 Inhaled oxygen flow rate 8 L/min Mona [facility] 07-25-2022 10:54-0500 Body height 177.8 cm MD Dunn Olivia [facility] 07-25-2022 10:54-0500 Body mass index (BMI) [Ratio] 32.5 kg/m2 MD Dunn [facility] 07-25-2022 10:54-0500 Body weight 102.96 kg Mona [facility] 07-17-2022 13:15-0500 Body height 177.8 cm Janusz Ruiz Other [employer] Other 07-17-2022 13:15-0500 Body mass index (BMI) [Ratio] 32.71 kg/m2 Janusz Ruiz Other [employer] Other 07-17-2022 13:15-0500 Body temperature 97.4 [degF] Janusz Ruiz Other [employer] Other 07-17-2022 13:15-0500 Body weight 103.42 kg Janusz Ruiz Other [employer] Other 07-17-2022 13:15-0500 Diastolic blood pressure 55 mm[Hg] Janusz Ruiz Other [employer] Other 07-17-2022 13:15-0500 Systolic blood pressure 129 mm[Hg] Janusz Ruiz Other [employer] Other 05-23-2022 12:03-0500 Diastolic blood pressure 65 mm[Hg] MD Mona Baker [facility] 05-23-2022 12:03-0500 Heart rate 60 /min MD Mona Baker [facility] 05-23-2022 12:03-0500 Respiratory rate 14 /min [facility]-23-[facility]22 12:03-0500 SaO2% (BldA) [Mass fraction] 93 % [facility]-23-[facility]22 12:03-0500 Systolic blood pressure 127 mm[Hg] MD Mona Baker [facility] 05-23-2022 10:41-0500 Inhaled oxygen flow rate 6 L/min MD Mona Baker [facility] 05-23-2022 10:36-0500 Body temperature 97 [degF] MD Mona Baker [facility] 05-23-2022 09:07-0500 Body mass index (BMI) [Ratio] 33 kg/m2 MD Mona Baker [facility] 05-23-2022 08:47-0500 Body height 177.8 cm MD Mona Baker [facility] 05-23-2022 08:47-0500 Body weight 104.32 kg [facility]-14-2022 16:15-0500 Heart rate 63 /min MD Mona Baker [facility] 05-14-2022 16:15-0500 Respiratory rate 20 /min MD Mona Baker [facility] 05-14-2022 16:00-0500 Body temperature 97.8 [degF] MD Mona Baker [facility] 05-14-2022 16:00-0500 Diastolic blood pressure 71 mm[Hg] MD Mona Baker [facility] 05-14-2022 16:00-0500 SaO2% (BldA) [Mass fraction] 95 % MD Mona Baker [facility] 05-14-2022 16:00-0500 Systolic blood pressure 136 mm[Hg] MD Mona Baker [facility] 05-14-2022 08:00-0500 Inhaled oxygen flow rate 3 L/min MD Mona Baker [facility] 05-14-2022 06:00-0500 Body weight 116 kg MD Mona Baker [facility] 05-12-2022 15:19-0500 Body height 177.8 cm MD Mona Baker [facility] 05-12-2022 15:04-0500 Body temperature 97.5 [degF] MD Mona Baker [facility] 05-12-2022 14:30-0500 Diastolic blood pressure 63 mm[Hg] MD Mona Baker [facility] 05-12-2022 14:30-0500 Heart rate 60 /min MD Mona Baker [facility] 05-12-2022 14:30-0500 Respiratory rate 20 /min MD Mona Baker [facility] 05-12-2022 14:30-0500 SaO2% (BldA) [Mass fraction] 95 % MD Mona Baker [facility] 05-12-2022 14:30-0500 Systolic blood pressure 130 mm[Hg] MD Mona Baker [facility] 05-12-2022 10:46-0500 Body height 175.26 cm MD Mona Baker [facility] 05-12-2022 10:46-0500 Body weight 104.32 kg MD Mona Baker [facility] 03-31-2022 09:42-0400 Blood Pressure Location Basem [facility] 03-31-2022 09:42-0400 Diastolic blood pressure 64 mm[Hg] [facility] 03-31-2022 09:42-0400 Heart rate 60 /min [facility] 03-31-2022 09:42-0400 SaO2% (BldA) [Mass fraction] 97 % [facility] 03-31-2022 09:42-0400 Systolic blood pressure 142 mm[Hg] [facility] 03-23-2022 09:12-0400 Blood Pressure Location Deshawn Gaffney [facility] 03-23-2022 09:12-0400 Diastolic blood pressure 82 mm[Hg] Deshawn Gaffney [facility] 03-23-2022 09:12-0400 Heart rate 60 /min Deshawn Gaffney [facility] 03-23-2022 09:12-0400 Systolic blood pressure 149 mm[Hg] Deshawn Gaffney [facility] 03-15-2022 10:28-0400 Body height 177.8 cm Mona Madrigalgles Work Phone: [facility] 600 DO Work Phone: 03-15-2022 10:28-0400 Body mass index (BMI) [Ratio] 33 kg/m2 Mona [facility]les Work Phone: [facility] 600 DO Work Phone: 03-15-2022 10:28-0400 Body surface area Derived from formula 2.22 m2 Mona M Olivia Work [facility]: [facility] 600 DO Work Phone: 03-15-2022 10:28-0400 Body weight 104.33 kg Mona M Olivia Work Phone: [facility] 600 DO Work Phone: 03-15-2022 10:28-0400 Diastolic blood pressure 60 mm[Hg] Mona M Olivia Work Phone: [facility] DO Work Phone: 03-15-2022 10:28-0400 Heart rate 60 /min Mona M Olivia Work Phone: [facility] DO Work Phone: 03-15-2022 10:28-0400 Systolic blood pressure 130 mm[Hg] Mona M Olivia Work Phone: [facility] DO Work Phone: 03-09-2022 14:31-0400 Blood Pressure Location Deshawn Gaffney [facility] 03-09-2022 14:31-0400 Diastolic blood pressure 69 mm[Hg] Deshawn Gaffney [facility] 03-09-2022 14:31-0400 Heart rate 60 /min Deshawn Gaffney [facility] 03-09-2022 14:31-0400 Systolic blood pressure 125 mm[Hg] Deshawn Gaffney [facility] 02-11-2022 15:00-0400 Hourly Rounding Gissel HINDS [facility] 02-11-2022 15:00-0400 Promise to Return Ronobir GUZMAN [facility] 02-11-2022 14:00-0400 Body temperature 98.06 [degF] Ronobir GUZMAN [facility] 02-11-2022 14:00-0400 Hourly Rounding Ronobir GUZMAN [facility] 02-11-2022 14:00-0400 Promise to Return Ronobir GUZMAN [facility] 02-11-2022 13:00-0400 Hourly Rounding Ronobir GUZMAN [facility] 02-11-2022 13:00-0400 Promise to Return Ronobir GUZMAN [facility] 02-11-2022 11:27-0400 Blood Pressure Location Ronobir GUZMAN [facility] 02-11-2022 11:27-0400 Body temperature 97.88 [degF] Ronobir GUZMAN [facility] 02-11-2022 11:27-0400 BP/Pulse Patient Position Ronobir GUZMAN [facility] 02-11-2022 11:27-0400 Diastolic blood pressure 71 mm[Hg] Ronobir GUZMAN [facility] 02-11-2022 11:27-0400 Heart rate 60 /min Ronobir GUZMAN [facility] 02-11-2022 11:27-0400 Mean blood pressure 87 mm[Hg] Ronobir GUZMAN [facility] 02-11-2022 11:27-0400 Respiratory rate 18 /min Ronobir GUZMAN [facility] 02-11-2022 11:27-0400 SaO2% (BldA) [Mass fraction] 98 % Ronobir GUZMAN [facility] 02-11-2022 11:27-0400 Systolic blood pressure 119 mm[Hg] Ronobir GUZMAN [facility] 02-11-2022 10:30-0400 Diastolic blood pressure 71 mm[Hg] Ronobir GUZMAN [facility] 02-11-2022 10:30-0400 Heart rate 60 /min Ronobir GUZMAN [facility] 02-11-2022 10:30-0400 Mean blood pressure 87 mm[Hg] Ronobir GUZMAN [facility] 02-11-2022 10:30-0400 Respiratory rate 18 /min Ronobir GUZMAN [facility] 02-11-2022 10:30-0400 Systolic blood pressure 119 mm[Hg] Ronobir GUZMAN [facility] 02-11-2022 08:57-0400 Diastolic blood pressure 67 mm[Hg] Ronobir GUZMAN [facility] 02-11-2022 08:57-0400 Systolic blood pressure 127 mm[Hg] Ronobir GUZMAN [facility] 02-11-2022 07:50-0400 SaO2% (BldA) [Mass fraction] 95 % Ronobir GUZMAN [facility] 02-11-2022 07:40-0400 Body temperature 98.24 [degF] Ronobir GUZMAN [facility] 02-11-2022 07:40-0400 Heart rate 60 /min Ronobir GUZMAN [facility] 02-11-2022 07:40-0400 Mean blood pressure 87 mm[Hg] Ronobir GUZMAN [facility] 02-11-2022 07:40-0400 Respiratory rate 18 /min Ronobir GUZMAN [facility] 02-11-2022 07:40-0400 SaO2% (BldA) [Mass fraction] 96 % Ronobir GUZMAN [facility] 02-11-2022 07:00-0400 gluc 75 mg/dL Ronobir GUZMAN [facility] 02-11-2022 02:14-0400 Heart rate 61 /min Ronobir GUZMAN [facility] 02-11-2022 02:14-0400 Mean blood pressure 78 mm[Hg] Ronobir GUZMAN [facility] 02-10-2022 21:38-0400 gluc 97 mg/dL Ronobir GUZMAN [facility] 02-10-2022 21:38-0400 Heart rate 60 /min Ronobir GUZMAN [facility] 02-10-2022 19:41-0400 Mean blood pressure 74 mm[Hg] Ronobir GUZMAN [facility] 02-09-2022 04:00-0400 Respiratory rate 16 /min Ronobir GUZMAN [facility] 02-09-2022 00:30-0400 Respiratory rate 11 /min Ronobir GUZMAN [facility] 02-08-2022 23:16-0400 Respiratory rate 13 /min Ronobir GUZMAN [facility] 02-02-2022 16:00-0400 Diastolic blood pressure 77 mm[Hg] Cayden Zina [facility] 02-02-2022 16:00-0400 Mean blood pressure 95 mm[Hg] Cayden Zina [facility] 02-02-2022 16:00-0400 SaO2% (BldA) [Mass fraction] 99 % Cayden Zina [facility] 02-02-2022 16:00-0400 Systolic blood pressure 131 mm[Hg] Cayden Zina [facility] 02-02-2022 15:00-0400 Diastolic blood pressure 65 mm[Hg] Cayden Zina [facility] 02-02-2022 15:00-0400 Mean blood pressure 85 mm[Hg] Cayden Zina [facility] 02-02-2022 15:00-0400 Respiratory rate 14 /min Cayden Zina [facility] 02-02-2022 15:00-0400 Systolic blood pressure 124 mm[Hg] Cayden Zina [facility] 02-02-2022 14:00-0400 Diastolic blood pressure 91 mm[Hg] Cayden Zina [facility] 02-02-2022 14:00-0400 Mean blood pressure 99 mm[Hg] Cayden Zina [facility] 02-02-2022 14:00-0400 Respiratory rate 13 /min Cayden Zina [facility] 02-02-2022 14:00-0400 SaO2% (BldA) [Mass fraction] 98 % Cayden Zina [facility] 09-01-2022 14:00-0400 Systolic blood pressure 116 mm[Hg] Cayden Izaguirre [facility] 02-02-2022 12:24-0400 Body temperature 98.06 [degF] Cayden Izaguirre [facility] 02-02-2022 12:24-0400 Heart rate 60 /min Cayden Izaguirre [facility] 02-02-2022 12:24-0400 Respiratory rate 16 /min Cayden Izaguirre [facility] 01-16-2022 15:00-0400 Body height 177.8 cm Janusz Ruiz Other [employer] [facility] [employer] Other 01-16-2022 15:00-0400 Body mass index (BMI) [Ratio] 32.48 kg/m2 Janusz Ruiz Other [employer] Other 01-16-2022 15:00-0400 Body temperature 97.2 [degF] Janusz Ruiz Other [employer] Other 01-16-2022 15:00-0400 Body weight 102.7 kg Janusz Ruiz Other [employer] Other 01-16-2022 15:00-0400 Diastolic blood pressure 54 mm[Hg] Janusz Ruiz Other [employer] Other 01-16-2022 15:00-0400 Respiratory rate 18 /min Janusz Ruiz Other [employer] Other 01-16-2022 15:00-0400 SaO2% (BldA) [Mass fraction] 96 % Janusz Ruiz Other [employer] Other 01-16-2022 15:00-0400 Systolic blood pressure 123 mm[Hg] Janusz Ruiz Other [facility] [employer] Other 2021 20:00-0400 Body temperature 98.24 [degF] Cayden Zina [facility] 2021 20:00-0400 Diastolic blood pressure 67 mm[Hg] Cayden Zina [facility] 2021 20:00-0400 Mean blood pressure 91 mm[Hg] Cayden Zina [facility] 2021 20:00-0400 Respiratory rate 15 /min Cayden Zina [facility] 2021 20:00-0400 Systolic blood pressure 140 mm[Hg] Cayden Zina [facility] 2021 19:00-0400 Body temperature 98.6 [degF] Cayden Zina [facility] 2021 19:00-0400 Diastolic blood pressure 57 mm[Hg] Cayden Zina [facility] 2021 19:00-0400 Heart rate 56 /min Cayden Zina [facility] 2021 19:00-0400 Mean blood pressure 84 mm[Hg] Cayden Zina [facility] 2021 19:00-0400 Respiratory rate 16 /min Cayden Zina [facility] 2021 19:00-0400 Systolic blood pressure 139 mm[Hg] Cayden Zina [facility] 2021 18:30-0400 Diastolic blood pressure 69 mm[Hg] Acyden Zina [facility] 2021 18:30-0400 Heart rate 60 /min Cayden Izaguirre [facility] 2021 18:30-0400 Mean blood pressure 89 mm[Hg] Cayden Izaguirre [facility] 2021 18:30-0400 Respiratory rate 18 /min Cayden Izaguirre [facility] 2021 18:30-0400 SaO2% (BldA) [Mass fraction] 96 % Cayden Izaguirre [facility] 2021 18:30-0400 Systolic blood pressure 128 mm[Hg] Cayden Izaguirre [facility] 2021 17:30-0400 Respiratory rate 18 /min Cayden Izaguirre [facility] 2021 15:30-0400 Heart rate 63 /min Cayden Izaguirre [facility] 2021 15:21-0400 Body temperature 99.14 [degF] Cayden Izaguirre [facility] 12-15-2021 11:14-0400 Body height 172.72 cm Mona Ward [employer] Work Phone: [facility] [employer] 600 DO Work Phone: 12-15-2021 11:14-0400 Body mass index (BMI) [Ratio] Medical Reason Not Done Mona M [employer] Work Phone: [facility] [employer] 600 DO Work Phone: 12-15-2021 11:14-0400 Diastolic blood pressure 58 mm[Hg] Mona Ward Olivia Work Phone: [facility] [employer] 600 DO Work Phone: 12-15-2021 11:14-0400 Heart rate 60 /min Mona M Olivia Work Phone: [facility] 600 DO Work Phone: 12-15-2021 11:14-0400 Systolic blood pressure 100 mm[Hg] Mona M Olivia Work Phone: [facility] 600 DO Work Phone: 12-15-2021 11:14-0400 11 1 Mona M Olivia Work Phone: [facility] 600 DO Work Phone: Comment on above: [id number] TS 11-07-2021 00:00-0400 60 1 Mona M Olivia Work Phone: [facility] 250 DO Work Phone: Comment on above: [facility]SL[facility] 10-19-2021 15:35-0400 Hourly Rounding Hasan AMIR [facility] 10-19-2021 15:35-0400 Promise to Return Hasan AMIR [facility] 10-19-2021 14:42-0400 Hourly Rounding Hasan [facility]IR [facility] 10-19-2021 14:42-0400 Promise to Return Hasan [facility]IR [facility] 10-19-2021 14:10-0400 gluc 269 mg/dL Hasan [facility] 10-19-2021 11:31-0400 Blood Pressure Location Hasan [facility] 10-19-2021 11:31-0400 Body temperature 98.06 [degF] Hasan [facility] 10-19-2021 11:31-0400 BP/Pulse Patient Position [facility]an [facility] 10-19-2021 11:31-0400 Diastolic blood pressure 74 mm[Hg] Hasan [facility] 10-19-2021 11:31-0400 Heart rate 61 /min Hasan [facility] 10-19-2021 11:31-0400 Mean blood pressure 95 mm[Hg] Hasan [facility] 10-19-2021 11:31-0400 SaO2% (BldA) [Mass fraction] 97 % Hasan [facility] 10-19-2021 11:31-0400 Systolic blood pressure 136 mm[Hg] Hasan [facility] 10-19-2021 08:27-0400 Diastolic blood pressure 82 mm[Hg] Hasan [facility] 10-19-2021 08:27-0400 Systolic blood pressure 136 mm[Hg] Hasan [facility] 10-19-2021 08:12-0400 Blood Pressure Location Hasan [facility] 10-19-2021 08:12-0400 Body temperature 97.52 [degF] [facility]an [facility] 10-19-2021 08:12-0400 BP/Pulse Patient Position Hasan [facility] 10-19-2021 08:12-0400 Diastolic blood pressure 67 mm[Hg] Hasan [facility] 10-19-2021 08:12-0400 Heart rate 60 /min Hasan [facility] 10-19-2021 08:12-0400 Mean blood pressure 87 mm[Hg] [facility]an [facility] 10-19-2021 08:12-0400 Respiratory rate 16 /min Hasan [facility] 10-19-2021 08:12-0400 SaO2% (BldA) [Mass fraction] 97 % Hasan [facility] 10-19-2021 08:12-0400 Systolic blood pressure 129 mm[Hg] [facility]an [facility] 10-19-2021 01:00-0400 Blood Pressure Location [facility]an [facility] 10-19-2021 01:00-0400 Body temperature 98.24 [degF] [facility]an [facility] 10-19-2021 01:00-0400 BP/Pulse Patient Position [facility]an [facility] 10-19-2021 01:00-0400 Heart rate 60 /min Hasan [facility] 10-19-2021 01:00-0400 Mean blood pressure 88 mm[Hg] [facility] 10-19-2021 01:00-0400 Respiratory rate 18 /min Hasan [facility] 10-19-2021 01:00-0400 SaO2% (BldA) [Mass fraction] 96 % Hasan [facility] 10-18-2021 20:00-0400 gluc 224 mg/dL Hasan [facility] 10-18-2021 19:31-0400 Mean blood pressure 87 mm[Hg] [facility] 10-18-2021 19:00-0400 Heart rate 65 /min [facility]an [facility] 10-18-2021 07:00-0400 gluc 255 mg/dL [facility]an [facility] 10-18-2021 03:00-0400 Mean blood pressure 86 mm[Hg] [facility] 10-16-2021 19:00-0400 Mean blood pressure 94 mm[Hg] [facility] 10-14-2021 19:47-0400 Heart rate 60 /min Hasan [facility] 10-14-2021 16:28-0400 Heart rate 60 /min [facility]an [facility] 10-13-2021 13:46-0400 Hourly Rounding Ronobir GUZMAN [facility] 10-13-2021 13:46-0400 Promise to Return Ronobir GUZMAN [facility] 10-13-2021 12:41-0400 Hourly Rounding Ronobir GUZMAN [facility] 10-13-2021 12:41-0400 Promise to Return Ronobir GUZMAN [facility] 10-13-2021 11:06-0400 Body temperature 98.42 [degF] Ronobir GUZMAN [facility] 10-13-2021 11:06-0400 Diastolic blood pressure 67 mm[Hg] Ronobir GUZMAN [facility] 10-13-2021 11:06-0400 Heart rate 59 /min Ronobir GUZMAN [facility] 10-13-2021 11:06-0400 Mean blood pressure 90 mm[Hg] Ronobir GUZMAN [facility] 10-13-2021 11:06-0400 SaO2% (BldA) [Mass fraction] 94 % Ronobir GUZMAN [facility] 10-13-2021 11:06-0400 Systolic blood pressure 138 mm[Hg] Ronobir GUZMAN [facility] 10-13-2021 08:25-0400 gluc 170 mg/dL Ronobir GUZMAN [facility] 10-13-2021 08:19-0400 Diastolic blood pressure 69 mm[Hg] Ronobir GUZMAN [facility] 10-13-2021 08:19-0400 Systolic blood pressure 129 mm[Hg] Ronobir GUZMAN [facility] 10-13-2021 08:11-0400 Heart rate 61 /min Ronobir GUZMAN [facility] 10-13-2021 08:11-0400 Respiratory rate 18 /min Ronobir GUZMAN [facility] 10-13-2021 08:06-0400 Heart rate 60 /min Ronobir GUZMAN [facility] 10-13-2021 08:06-0400 Respiratory rate 18 /min Ronobir GUZMAN [facility] 10-13-2021 07:21-0400 Blood Pressure Location Ronobir GUZMAN [facility] 10-13-2021 07:21-0400 Body temperature 98.06 [degF] Ronobir GUZMAN [facility] 10-13-2021 07:21-0400 BP/Pulse Patient Position Ronobir GUZMAN [facility] 10-13-2021 07:21-0400 Diastolic blood pressure 69 mm[Hg] Ronobir GUZMAN [facility] 10-13-2021 07:21-0400 Mean blood pressure 89 mm[Hg] Ronobir GUZMAN [facility] 10-13-2021 07:21-0400 Respiratory rate 18 /min Ronobir GUZMAN [facility] 10-13-2021 07:21-0400 SaO2% (BldA) [Mass fraction] 95 % Ronobir GUZMAN [facility] 10-13-2021 07:21-0400 Systolic blood pressure 129 mm[Hg] Ronobir GUZMAN [facility] 10-13-2021 04:00-0400 Body temperature 97.88 [degF] Ronobir GUZMAN [facility] 10-12-2021 20:29-0400 gluc 249 mg/dL Ronobir GUZMAN [facility] 10-12-2021 17:50-0400 Mean blood pressure 80 mm[Hg] Ronobir GUZMAN [facility] 10-12-2021 11:51-0400 Body temperature 97.16 [degF] Ronobir GUZMAN [facility] 10-12-2021 07:51-0400 Blood Pressure Location Ronobir GUZMAN [facility] 10-12-2021 07:51-0400 BP/Pulse Patient Position Ronobir GUZMAN [facility] 10-12-2021 07:51-0400 Mean blood pressure 98 mm[Hg] Ronobir GUZMAN [facility] 10-11-2021 16:06-0400 Blood Pressure Location Ronobir GUZMAN [facility] 10-11-2021 16:06-0400 BP/Pulse Patient Position Ronobir GUZMAN [facility] 10-11-2021 00:18-0400 Mean blood pressure 80 mm[Hg] Ronobir GUZMAN [facility] 10-10-2021 20:54-0400 gluc 194 mg/dL Ronobir GUZMAN [facility] 10-10-2021 19:00-0400 Mean blood pressure 74 mm[Hg] Ronobir GUZMAN [facility] 10-08-2021 08:27-0400 Heart rate 64 /min Ronobir GUZMAN [facility] 10-07-2021 04:15-0400 Heart rate 60 /min Ronobir GUZMAN [facility] 10-07-2021 00:36-0400 Heart rate 60 /min Ronobir GUZMAN [facility] 10-06-2021 18:03-0400 SaO2% (BldA) [Mass fraction] 93.3 % Ronobir GUZMAN [facility] Auto SS 09-27-2021 13:05-0400 Body height 172.7 cm Upender Yamil BROUSSARD Work Phone: [facility] 09-27-2021 13:05-0400 Diastolic blood pressure 73 mm[Hg] Upender Gehlot MD Work Phone: [facility] 09-27-2021 13:05-0400 Heart rate 60 /min Ye Lobo MD Work Phone: [facility] 09-27-2021 13:05-0400 Respiratory rate 16 /min Ye Lobo MD Work Phone: [facility] 09-27-2021 13:05-0400 SaO2% (BldA) [Mass fraction] 94 % Ye Lobo MD Work Phone: [facility] 09-27-2021 13:05-0400 Systolic blood pressure 144 mm[Hg] Ye Lobo MD Work Phone: [facility] 08-16-2021 12:32-0400 Diastolic blood pressure 60 mm[Hg] Mona Ward Olivia Work Phone: [facility] [employer] [address] DO Work Phone: 08-16-2021 12:32-0400 Systolic blood pressure 105 mm[Hg] Mona Jens Olivia Work Phone: [facility] [employer] [address] DO Work Phone: 08-16-2021 12:11-0400 Body height 175.26 cm Mona M Olivia Work Phone: [facility] [employer] [address] DO Work Phone: 08-16-2021 12:11-0400 Body mass index (BMI) [Ratio] 34.56 kg/m2 Mona M Olivia Work Phone: [facility] [employer] [address] DO Work Phone: 08-16-2021 12:11-0400 Body surface area Derived from formula 2.21 m2 Mona M Olivia Work Phone: [facility] [employer] [address] DO Work Phone: 08-16-2021 12:11-0400 Body weight 106.14 kg Mona M Olivia Work Phone: [facility] [address] DO Work Phone: 08-16-2021 12:11-0400 Diastolic blood pressure 74 mm[Hg] Mona M Olivia Work Phone: [facility] [address] DO Work Phone: 08-16-2021 12:11-0400 Heart rate 60 /min Mona M Olivia Work Phone: [facility] [address] DO Work Phone: 08-16-2021 12:11-0400 Systolic blood pressure 140 mm[Hg] Mona M [facility] [address] DO Work Phone: 08-05-2021 13:23-0500 Body height 175.26 cm Mona M Olivia Work [facility]: [facility] [address] DO Work Phone: 08-05-2021 13:23-0500 Body mass index (BMI) [Ratio] 33.37 kg/m2 Mona M Olivia Work Phone: [facility] Work Phone: 08-05-2021 13:23-0500 Body surface area Derived from formula 2.18 m2 Mona M Olivia Work Phone: [facility] Work Phone: 08-05-2021 13:23-0500 Body weight 102.51 kg Mona M Olivia Work Phone: [facility] 600 DO Work Phone: 08-05-2021 13:23-0500 Diastolic blood pressure 65 mm[Hg] Mona M Olivia Work Phone: [facility] [address] DO Work Phone: 08-05-2021 13:23-0500 Heart rate 60 /min Mona M Olivia Work Phone: [facility] [address] DO Work Phone: 08-05-2021 13:23-0500 Systolic blood pressure 134 mm[Hg] Mona M Olivia Work Phone: [facility] 600 DO Work Phone: 07-19-2021 11:11-0500 40 1 Mona M Olivia Work Phone: [facility] 250 DO Work Phone: Comment on above: [id number] 06-29-2021 11:08-0500 Body height 175.26 cm Mona M Olivia Work Phone: [facility] [address] DO Work Phone: 06-29-2021 11:08-0500 Body mass index (BMI) [Ratio] 35.15 kg/m2 Mona M Olivia Work Phone: [facility] 600 DO Work Phone: 06-29-2021 11:08-0500 Body surface area Derived from formula 2.22 m2 Mona M Olivia Work Phone: [facility] 600 DO Work Phone: 06-29-2021 11:08-0500 Body weight 107.96 kg Mona M Olivia Work Phone: [facility] 600 DO Work Phone: 06-29-2021 11:08-0500 Diastolic blood pressure 76 mm[Hg] Mona M Olivia [facility]: [facility] [address] DO Work Phone: 06-29-2021 11:08-0500 Heart rate 93 /min Mona M Olivia Work Phone: [facility] 600 DO Work Phone: 06-29-2021 11:08-0500 Systolic blood pressure 118 mm[Hg] Mona M Olivia Work Phone: [facility] 600 DO Work Phone: 06-21-2021 12:27-0500 Body height 172.7 cm Upsylvain Lobo MD Work Phone: [facility] 06-21-2021 12:27-0500 Body mass index (BMI) [Ratio] 35.61 kg/m2 Ye Lobo MD Work Phone: [facility] 06-21-2021 12:27-0500 Body weight 106.23 kg Upsylvain Lobo MD Work Phone: [facility] 06-21-2021 12:27-0500 Diastolic blood pressure 67 mm[Hg] Ye Lobo MD Work Phone: [facility] 06-21-2021 12:27-0500 Heart rate 95 /min Ye Lobo MD Work Phone: [facility] 06-21-2021 12:27-0500 Respiratory rate 16 /min Ye Lobo MD Work Phone: [facility] 06-21-2021 12:27-0500 SaO2% (BldA) [Mass fraction] 91 % Ye oLbo MD Work Phone: [facility] 06-21-2021 12:27-0500 Systolic blood pressure 119 mm[Hg] Ye Lobo MD Work Phone: [facility] 05-10-2021 09:44-0500 66 1 Mona M Olivia Work Phone: [facility] [address] [place] Work Phone: Comment on above: [facility]SL[facility] 05-05-2021 11:38-0500 Body height 172.72 cm Mona M Olivia Work Phone: [facility] [address] [place] Work Phone: 05-05-2021 11:38-0500 Body mass index (BMI) [Ratio] 35.94 kg/m2 Mona M Olivia Work Phone: [facility] [address] [place] Work Phone: 05-05-2021 11:38-0500 Body surface area Derived from formula 2.19 m2 Mona M Olivia Work Phone: [facility] [address] [place] Work Phone: 05-05-2021 11:38-0500 Body weight 107.23 kg Mona M Olivia Work Phone: [facility] [address] [place] Work Phone: 05-05-2021 11:38-0500 Diastolic blood pressure 90 mm[Hg] Mona M Olivia Work Phone: [facility] [address] [place] Work Phone: 05-05-2021 11:38-0500 Heart rate 60 /min Mona M Olivia Work Phone: [facility] [address] [place] Work Phone: 05-05-2021 11:38-0500 Systolic blood pressure 150 mm[Hg] Mona M Olivia Work Phone: [facility] [address] [place] Work Phone: 04-27-2021 12:30-0500 31 1 Mona M Olivia Work Phone: [facility] [address] [place] Work Phone: Comment on above: [id number] 03-22-2021 08:24-0400 Body height 172.72 cm Mona M Olivia Work Phone: [facility] [address] [place] Work Phone: 03-22-2021 08:24-0400 Body mass index (BMI) [Ratio] 36.8 kg/m2 Mona M Olivia Work Phone: [facility] [address] Work Phone: 03-22-2021 08:24-0400 Body surface area Derived from formula 2.22 m2 Mona M Olivia Work Phone: [facility] [address] Work Phone: 03-22-2021 08:24-0400 Body weight 109.77 kg Mona M Olivia Work Phone: [facility] [address] Work Phone: 03-22-2021 08:24-0400 Diastolic blood pressure 64 mm[Hg] Mona M Olivia Work Phone: [facility] [address] [place] Work Phone: 03-22-2021 08:24-0400 Heart rate 80 /min Mona M Olivia Work Phone: [facility] [address] Work Phone: 03-22-2021 08:24-0400 Systolic blood pressure 126 mm[Hg] Mona M Olivia Work Phone: [facility] [address] [place] Work Phone: 03-15-2021 13:59-0400 Diastolic blood pressure 70 mm[Hg] Mona M Olivia Work Phone: [facility] [address] Work Phone: 03-15-2021 13:59-0400 Systolic blood pressure 100 mm[Hg] Mona M Olivia Work Phone: [facility] [address] DO Work Phone: 03-15-2021 13:58-0400 Body height 172.72 cm Mona M Olivia Work Phone: [facility] [address] Work Phone: 03-15-2021 13:58-0400 Body mass index (BMI) [Ratio] 35.73 kg/m2 Mona M Olivia Work Phone: [facility] [address] Work Phone: 03-15-2021 13:58-0400 Body surface area Derived from formula 2.19 m2 Mona M Olivia Work Phone: [facility] [address] Work Phone: 03-15-2021 13:58-0400 Body temperature 98.7 [degF] Mona M Olivia Work Phone: [facility] [address] Work Phone: 03-15-2021 13:58-0400 Body weight 106.6 kg Mona M Olivia Work Phone: [facility] [address] Work Phone: 03-15-2021 13:58-0400 Diastolic blood pressure 78 mm[Hg] Mona M Olivia Work Phone: [facility] [address] Work Phone: 03-15-2021 13:58-0400 Heart rate 100 /min Mona M Olivia Work Phone: [facility] [address] DO Work Phone: 03-15-2021 13:58-0400 Systolic blood pressure 118 mm[Hg] Mona M Olivia Work Phone: [facility] [address] DO Work Phone: 03-15-2021 13:48-0400 Diastolic blood pressure 70 mm[Hg] Mona M Olivia Work Phone: [facility] [address] Work Phone: 03-15-2021 13:48-0400 Systolic blood pressure 100 mm[Hg] Mona M Olivia Work Phone: [facility] [address] Work Phone: 03-15-2021 13:39-0400 Body height 172.72 cm Mona M Olivia Work Phone: [facility] [address] Work Phone: 03-15-2021 13:39-0400 Body mass index (BMI) [Ratio] 35.73 kg/m2 Mona M Olivia Work Phone: [facility] [address] Work Phone: 03-15-2021 13:39-0400 Body surface area Derived from formula 2.19 m2 Mona M Olivia Work Phone: [facility] [address] Work Phone: 03-15-2021 13:39-0400 Body temperature 98.7 [degF] Mona M Olivia Work Phone: [facility] [address] Work Phone: 03-15-2021 13:39-0400 Body weight 106.6 kg Mona M Olivia Work Phone: [facility] [address] DO Work Phone: 03-15-2021 13:39-0400 Diastolic blood pressure 78 mm[Hg] Mona M Olivia Work Phone: [facility] [address] DO Work Phone: 03-15-2021 13:39-0400 Heart rate 100 /min Mona Baker Work Phone: [facility] [address] DO Work Phone: 03-15-2021 13:39-0400 Systolic blood pressure 118 mm[Hg] Mona Baker Work Phone: [facility] [address] Work Phone: 02-09-2021 14:57-0400 72 1 Felipa Milligan MD Work Phone: [facility] [address] Work Phone: Comment on above: FSLDL Encounters Encounter Date Encounter Type Care Provider Facility Start: 03-12-2024 End: 03-12-2024 ambulatory CHAYO FERNANDEZ Not Available Start: 03-06-2024 End: 03-06-2024 ambulatory MONA Ward OLIVIA Not Available Start: 03-06-2024 End: 03-06-2024 Transitional care manage srvc 7 day discharge Mona Baker MD Work Phone: [facility] Comment on above: Hospital discharge f ollow-up (Primary Dx); Acute hypoxic respiratory failure (CMS/HCC); Acute on chronic heart failure, unspecified heart failure type (CMS/HCC); Stage 3a chronic kidney disease (HCC) (CMS/HCC); BMI 31.0-31.9,adult; Obesity (BMI 30.0-34.9); Atherosclerosis of aorta (CMS/HCC) Start: 03-04-2024 End: 03-04-2024 Telephone encounter Mona Baker MD Work Phone: [facility] Comment on above: Hospital Follow-up Start: 03-02-2024 End: 03-04-2024 Evaluation and management of inpatient MD Paul Samaniego [place] Start: 03-02-2024 Emergency department patient visit Annemarie Tony Facility[place] Start: 03-02-2024 End: 03-04-2024 Evaluation and management of inpatient Paul Samaniego [facility] Start: 02-15-2024 End: 02-15-2024 ambulatory XXXX NONE [place] Start: 02-06-2024 ambulatory Nicolás Diggs Facilit y:[facility] Start: 02-05-2024 End: 02-05-2024 ambulatory Andi WARE Facility[place] Start: 02-05-2024 End: 02-05-2024 Patient encounter procedure Andi WARE [facility] Start: 01-29-2024 End: 01-29-2024 Office outpatient visit 15 minutes Ye Lobo MD Work Phone: [facility] Comment on above: Bipolar 1 disorder, manic, full remission (HCC) (Primary Dx); Long-term use of high-risk medication; Generalized anxiety disorder Start: 01-29-2024 End: 01-29-2024 ambulatory [facility] Start: 01-29-2024 End: 01-29-2024 Telemedicine consultation with patient Ye Lobo MD Work Phone: [facility] Comment on above: Generalized anxiety disorder (Primary Dx) Start: 01-23-2024 End: 01-23-2024 ambulatory Nicolás Caballerod Facility[place] Start: 01-23-2024 End: 01-23-2024 Patient encounter procedure Nicolás Caballerod [facility] Start: 01-10-2024 End: 01-10-2024 ambulatory Leo Milligan Facility[place] Start: 01-10-2024 End: 01-10-2024 Patient encounter procedure Felipa Milligan [facility] Start: 01-03-2024 End: 01-03-2024 ambulatory MD Mona Baker Work Phone: [facility] Work Phone: Start: 01-03-2024 End: 01-03-2024 Patient encounter procedure MD Mona Baker Work Phone: [facility] Infectious Disease Work Phone: Start: 12-27-2023 End: 12-27-2023 ambulatory Nicolás Diggs Facility[place] Start: 12-27-2023 End: 12-27-2023 Patient encounter procedure Nicolás Diggs [facility] Start: 12-20-2023 End: 12-20-2023 ambulatory Nicolás Diggs [place] Start: 12-20-2023 End: 12-20-2023 Patient encounter procedure Nicolás Diggs [facility] Start: 12-05-2023 End: 12-05-2023 ambulatory XXXX NONE Facility[place] Start: 12-05-2023 End: 12-05-2023 Patient encounter procedure Nicolás Diggs [facility] Start: 11-26-2023 End: 11-26-2023 ambulatory MD Mona Baker Work Phone: [facility] Work Phone: Start: 11-26-2023 End: 11-26-2023 Patient encounter procedure MD Mona Baker Work Phone: [facility] Work Phone: Start: 11-22-2023 End: 11-22-2023 ambulatory Armani Yarbrough Facility[place] Start: 11-22-2023 End: 11-22-2023 Patient encounter procedure Armani Yarbrough [facility] Start: 11-21-2023 End: 11-21-2023 ambulatory MICAELA TIWARI Not Available Start: 11-16-2023 ambulatory January Kaplan Facility: [facility] Start: 11-15-2023 End: 11-15-2023 ambulatory Armani Yarbrough Facility[place] Start: 11-15-2023 End: 11-15-2023 Patient encounter procedure Armani Yarbrough [facility] Start: 11-12-2023 End: 11-12-2023 ambulatory MONA BAKER Not Available Start: 11-08-2023 End: 11-08-2023 ambulatory MD Mona Baker Work Phone: [facility] Work Phone: Start: 11-08-2023 End: 11-08-2023 Departed Referred MD Mona Baker Work Phone: [facility] Start: 10-31-2023 End: 10-31-2023 ambulatory Armani Yarbrough Facility[place] Start: 10-31-2023 End: 10-31-2023 Patient encounter procedure Armanijustice Yarbrough [facility] Start: 10-30-2023 End: 10-30-2023 Office outpatient visit 25 minutes Ye Lobo MD Work Phone: [facility] Comment on above: Bipolar 1 disorder, manic, full remission (HCC) (Primary Dx); Generalized anxiety disorder; Long-term use of high-risk medication Start: 10-30-2023 End: 10-30-2023 ambulatory YE LOBO [facility] Start: 10-26-2023 End: 10-26-2023 ambulatory PRINCESS DOS SANTOS Not Available Start: 10-24-2023 End: 10-24-2023 ambulatory Felipa Milligan [place] Start: 10-24-2023 End: 10-24-2023 Patient encounter procedure Felipa Milligan [facility] Start: 10-23-2023 End: 10-23-2023 ambulatory MONA BAKER Not Available Start: 10-18-2023 End: 10-18-2023 Patient encounter procedure MD Mona Baker Work Phone: [facility] Infectious Disease Work Phone: Start: 10-17-2023 End: 10-17-2023 Office outpatient visit 25 minutes Felipa Milligan MD Work Phone: [facility] Comment on above: 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 of [place] heart without angina pectoris (Primary Dx); Ventricular tachycardia (paroxysmal) (Multi); Ischemic cardiomyopathy; AICD (automatic cardioverter/defibrillator) present; S/P PTCA (percutaneous transluminal coronary angioplasty); Hypertension, essential, benign; Paroxysmal atrial fibrillation (Multi); Mixed hyperlipidemia; High risk medication use; S/P CABG (coronary artery bypass graft); Type 2 diabetes mellitus without complication, unspecified whether intermodal dispatcher insulin use (Multi); Class 1 obesity without serious comorbidity with body mass index (BMI) of 32.0 to 32.9 in adult, unspecified obesity type; Mild dementia without behavioral disturbance, psychotic disturbance, mood disturbance, or anxiety, unspecified dementia type (Multi) Start: 10-17-2023 End: 10-17-2023 ambulatory [facility] Ambulatory Start: 10-13-2023 End: 10-13-2023 ambulatory Armani Yarbrough Facility[place] Start: 10-13-2023 End: 10-13-2023 Patient encounter procedure Armani Yarbrough [facility] Start: 09-24-2023 End: 09-24-2023 ambulatory PRINCESS DOS SANTOS Not Available Start: 09-12-2023 End: 09-12-2023 ambulatory Mona Baker Facility[place] Start: 09-12-2023 End: 09-12-2023 Patient encounter procedure Mona Baker [facility] Start: 09-12-2023 End: 09-12-2023 ambulatory MONA Jens BAKER Not Available Start: 09-06-2023 Non-patient / Non-visit MD Travon Baker Work Phone: [facility] Gastroenterology Work Phone: Start: 09-06-2023 End: 09-06-2023 Admission to same day surgery center MD Mona Baker Work Phone: [facility] Work Phone: Start: 09-06-2023 End: 09-06-2023 ambulatory MD Mona Baker Work Phone: [facility] Work Phone: Start: 08-27-2023 End: 08-29-2023 Evaluation and management of inpatient Rosi Valencia [facility] Start: 08-27-2023 End: 08-27-2023 ambulatory MONA BAKER Not Available Start: 08-22-2023 End: 08-22-2023 ambulatory PRINCESS S LEVON Not Available Start: 08-11-2023 End: 08-11-2023 ambulatory Janusz S Blank Facility[place] Start: 08-11-2023 End: 08-11-2023 Lab Drop off Janusz S Blank [facility] Start: 08-11-2023 Non-patient / Non-visit MD Travon Baker Work Phone: [facility] Work Phone: Start: 07-26-2023 End: 07-26-2023 ambulatory Janusz S Blank Facility[place] Start: 07-26-2023 End: 07-26-2023 Lab Drop off Janusz S Blank [facility] Start: 07-26-2023 Non-patient / Non-visit MD Travon Baker Work Phone: [facility] Work Phone: Start: 07-25-2023 End: 07-25-2023 ambulatory PRINCESS Jamil LEVON Not Available Start: 07-20-2023 ambulatory Andi WARE Facili ty:[facility]ARR[facility] Start: 07-18-2023 End: 07-18-2023 ambulatory Janusz Ruiz [place] Start: 07-18-2023 End: 07-18-2023 Lab Drop off Janusz Ruiz [facility] Start: 07-18-2023 Non-patient / Non-visit MD Travon Baker Work Phone: [facility] Work Phone: Start: 07-17-2023 End: 07-17-2023 ambulatory Andi WARE Facility[place] Start: 07-17-2023 End: 07-17-2023 Patient encounter procedure Andi WARE [facility] Start: 07-16-2023 End: 07-16-2023 ambulatory Janusz Ruiz Other [facility] [employer]™ Other Start: 07-16-2023 Office outpatient vi sit 25 minutes Janusz Ruiz [facility] Infectious Disease Start: 06-25-2023 End: 06-25-2023 ambulatory MONA BAKER Not Available Start: 06-20-2023 End: 06-22-2023 ambulatory [facility] Ambulatory Start: 06-17-2023 End: 06-17-2023 Emergency department patient visit MD Mona Baker [facility] Work Phone: Start: 06-12-2023 End: 06-12-2023 ambulatory Felipa Milligan Facility[place] Start: 06-12-2023 End: 06-12-2023 Patient encounter procedure Felipa Milligan [facility] Start: 05-17-2023 End: 08-17-2023 Pre-admission assessment Felipa Milligan [facility] Start: 05-17-2023 End: 05-17-2023 ambulatory Jeremías Mims Facility[place] Start: 04-30-2023 End: 04-30-2023 ambulatory MONA Ward OLIVIA Not Available Start: 04-12-2023 End: 04-12-2023 ambulatory Armani Yarbrough Facility[place] Start: 04-12-2023 End: 04-12-2023 Patient encounter procedure Armani Yarbrough [facility] Start: 04-09-2023 End: 04-09-2023 ambulatory Priyajens MendozaOri Diggs Facility:[facility] Start: 04-09-2023 End: 04-09-2023 Patient encounter procedure Nicolás Caballerod [facility] Start: 04-04-2023 End: 04-04-2023 Office outpatient visit 25 minutes Felipa Milligan MD Work Phone: [facility] Comment on above: 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 of [place] heart without angina pectoris; S/P PTCA (percutaneous transluminal coronary angioplasty); Ventricular tachycardia (paroxysmal) (CMS/HCC); AICD (automatic cardioverter/defibrillator) present; Hypertension, essential, benign; Ischemic cardiomyopathy; Paroxysmal atrial fibrillation (CMS/HCC); Mixed hyperlipidemia; Stage 3b chronic kidney disease (CMS/HCC); S/P CABG (coronary artery bypass graft); Transient neurological symptoms; Obstructive sleep apnea, adult Start: 04-04-2023 End: 04-04-2023 [facility] Start: 03-28-2023 End: 03-28-2023 ambulatory Janusz Ruiz Other [employer] Other Start: 03-28-2023 Telephone encounter Janusz Mendoza Infectious Disease Start: 03-26-2023 End: 03-26-2023 Office outpatient visit 25 minutes Jackie Mcginnis MD Work Phone: [facility] Comment on above: Parkinsonism, unspec ified Parkinsonism type (Primary Dx); Cognitive impairment Start: 03-26-2023 End: 03-26-2023 ambulatory [facility] Start: 03-20-2023 End: 03-20-2023 ambulatory KEISHA [facility] Start: 03-20-2023 End: 03-20-2023 Office outpatient visit 25 minutes Keisha Brambila MANAGER AGRICULTURAL - FURNITURE SANDER Work Phone: [facility] Comment on above: Mild dementia withou t behavioral disturbance, psychotic disturbance, mood disturbance, or anxiety, unspecified dementia type (HCC) (Primary Dx); B12 deficiency; Acquired hypothyroidism Start: 03-09-2023 End: 03-13-2023 Evaluation and management of inpatient DO Gissel HINDS Facility[place] Start: 03-09-2023 End: 03-09-2023 ambulatory KEISHA BRAMBILA Facility[place] Start: 03-02-2023 End: 03-02-2023 ambulatory KEISHA BRAMBILA Facility:[facility] Start: 03-02-2023 End: 03-02-2023 Patient encounter procedure KEISHA BRAMBILA [facility] Start: 02-20-2023 End: 02-20-2023 ambulatory KEISHA NIMAEmma [facility] Start: 02-20-2023 End: 02-20-2023 Office outpatient new 45 minutes Keisha Brambila MANAGER AGRICULTURAL - FURNITURE SANDER Work Phone: [facility] Ger[facility] Comment on above: Memory loss (Primary Dx); Parkinsonism, unspecified Parkinsonism type; Bipolar disorder, in partial remission, most recent episode mixed (CMS/HCC) (HCC); Polypharmacy Start: 02-15-2023 Telephone encounter Fariba Garner DO Work Phone: [facility] Ger[facility] Comment on above: Appointment Start: 02-15-[address] Mona Carvajal Facility: Start: 02-15-2023 End: 02-15-2023 ambulatory Jeremías Mims Facility[place] Start: 02-15-2023 End: 02-15-2023 Patient encounter procedure Jeremías Mims [facility] Start: 01-16-2023 End: 01-16-2023 Patient encounter procedure Andi WARE [facility] Start: 01-15-2023 End: 01-15-2023 ambulatory Janusz Ruiz Other [employer] Other Start: 01-15-2023 Office outpatient vi sit 25 minutes Janusz Ruiz [facility] Infectious Disease Start: 01-08-2023 Rx Renewal Mona Camarillo s Work Phone: [facility] 250 DO Work Phone: Start: 12-13-2022 Telephone encounter Mona saucedo Work Phone: [facility] 600 DO Work Phone: Start: 12-13-2022 End: 12-13-2022 Patient encounter procedure Andi WARE [facility] Start: 11-24-2022 End: 11-24-2022 Patient encounter procedure Andi WARE [facility] Start: 11-20-2022 Patient encounter procedure Mona Baker Work Phone: [facility] [address] Work Phone: Start: 11-20-[address] Mona Carvajal Facility:[id number] Start: 11-09-[address] Mona Carvajal Facility: Start: 10-31-2022 End: 10-31-2022 Patient encounter procedure Andi WARE [facility] Start: 09-22-2022 Office outpatient vi sit 40 minutes Mona Baker Work Phone: [facility] 600 DO Work Phone: Start: 09-22-[address] Mona Carvajal Facility: Start: 09-22-2022 End: 09-22-2022 Patient encounter procedure Andi WARE [facility] Start: 09-19-2022 End: 09-20-2022 ambulatory JOHN PAUL James [facility] Facility:H1 Start: 09-04-2022 Chart Update Mona Camarillo s Work Phone: NP-Jpaxgkevs-Sfgqxxie B 101 Work Phone: Start: 08-30-2022 Telephone encounter Mona saucedo Work Phone: MS-Huhiviuqb-Urixdnrz 204 Movement Disorders Work Phone: Start: 08-30-[address] Francisco yanez Snehal Facility:7 Start: 08-29-2022 End: 08-30-2022 ambulatory JOHN PAUL James [facility] Facility:H1 Start: 08-23-2022 End: 08-23-2022 Patient encounter procedure Andi WARE [facility] Kevin Start: 08-22-[address] Mona Carvajal Facility:[id number] Start: 08-18-2022 End: 08-19-2022 ambulatory JOHN PAUL James [facility] Facility:H1 Start: 08-16-2022 End: 08-16-2022 Patient encounter procedure Andi WARE [facility] Kevin Start: 08-10-[address] Mona Carvajal Facility:[id number] Start: 08-10-2022 End: 08-10-2022 Patient encounter procedure Jeremías Mims [facility] Start: 08-09-2022 End: 08-09-2022 Patient encounter procedure Andi WARE [facility] Kevin Start: 08-08-2022 End: 08-09-2022 ambulatory JOHN PAUL James [facility] Facility:H1 Start: 08-01-2022 End: 08-02-2022 ambulatory JOHN PAUL James [facility] Facility:H1 Start: 07-31-2022 Office outpatient ne w 45 minutes Mona Baker Work Phone: [facility]-Phhwgqdwg-XREUK [place] 5 Work Phone: Start: 07-31-2022 Patient encounter procedure Mona Baker Work Phone: EO-Tbgbzcsir-Pqjfsxhm B 101 DO Work Phone: Start: 07-31-[address] Mona Carvajal Facility:[id number] Start: 07-28-2022 End: 07-29-2022 ambulatory JOHN PAUL James [facility] Facility:H1 Start: 07-25-2022 End: 07-25-2022 Admission to same day surgery center MD Mona Baker [facility] [place] Start: 07-25-2022 End: 07-25-2022 ambulatory MD Mona Baker [facility] Work Phone: Start: 07-24-2022 End: 08-16-2022 Pre-admission assessment Andi WARE [facility] Start: 07-17-2022 End: 07-17-2022 ambulatory Janusz Ruiz Other [employer] Other Start: 07-17-2022 Office outpatient vi sit 25 minutes Janusz LUCAS Infectious Disease Start: 07-11-2022 End: 07-11-2022 ambulatory MD oMna Baker [facility] Work Phone: Start: 07-11-2022 End: 07-11-2022 Patient encounter procedure MD Mona Baker [facility] Ytp-Mhj-Imqzwopl Testing Work Phone: Start: 06-02-2022 End: 06-02-2022 Patient encounter procedure Andi Caputo [facility] Start: 05-23-2022 End: 05-23-2022 Admission to same day surgery center MD Mona Baker [facility] [place] Start: 05-23-2022 End: 05-23-2022 ambulatory MD Mona Baker [facility] Work Phone: Start: 05-19-2022 End: 05-19-2022 ambulatory MD Mona Baker [facility] Work Phone: Start: 05-19-2022 End: 05-19-2022 Patient encounter procedure MD Mona Baker [facility] Vnp-Sxj-Nfutkxsy Testing Start: 05-15-2022 End: 05-15-2022 ambulatory Bill Mcgee Other [employer] Other Start: 05-15-2022 Telephone encounter Bill Mcgee [facility] G[facility] Start: 05-12-2022 End: 05-14-2022 Evaluation and management of inpatient MD Mona Baker [facility] Start: 05-12-2022 End: 05-14-2022 observation encounter MD Mona Baker [facility] Work Phone: Start: 05-11-2022 End: 06-23-2022 Pre-admission assessment Felipa Milligan [facility] Start: 05-10-2022 Patient encounter procedure Mona Madrigalgles Work Phone: [facility] DO Work Phone: Start: 05-08-2022 End: 05-08-2022 Patient encounter procedure Nicolás Diggs [facility] Start: 05-02-2022 End: 05-03-2022 ambulatory [facility] Facility:H1 Start: 03-31-2022 End: 03-31-2022 Patient encounter procedure Nicolás Diggs [facility] Start: 03-24-2022 End: 03-25-2022 ambulatory [facility] Facility:H1 Start: 03-23-2022 End: 03-23-2022 Patient encounter procedure Deshawn Gaffney [facility] [place] Start: 03-15-2022 Office outpatient vi sit 25 minutes Mona Baker Work Phone: [facility] DO Work Phone: Start: 03-15-2022 ambulatory Felipa Milligan Facility :[id number] Start: 03-10-2022 End: 03-11-2022 ambulatory [facility] Facility:H1 Start: 03-09-2022 End: 03-09-2022 Patient encounter procedure Deshawn Gaffney [facility] Start: 03-03-2022 End: 03-04-2022 ambulatory [facility] Facility:H1 Start: 02-17-2022 End: 02-17-2022 [facility] Start: 02-13-2022 End: 02-13-2022 Off-Site [facility] Start: 02-08-2022 End: 02-11-2022 Observation Gissel HINDS [facility] Start: 02-07-2022 End: 02-14-2022 Pre-admission assessment Nicolás Diggs [facility] Start: 02-02-2022 End: 02-02-2022 Emergency department patient visit Cayden Izaguirre [facility] Start: 01-27-2022 Telephone encounter Mona saucedo Work Phone: [facility] 250 DO Work Phone: Start: 01-16-2022 End: 01-16-2022 ambulatory Janusz Ruiz Other [facility] [employer]™ Other Start: 01-16-2022 Office outpatient vi sit 25 minutes Janusz LUCAS Infectious Disease Start: 01-04-2022 End: 01-04-2022 Patient encounter procedure Mona Baker [facility] Start: 2021 End: 2021 Emergency department patient visit Cayden Izaguirre [facility] Start: 2021 Telephone encounter Mona saucedo Work Phone: [facility] DO Work Phone: Start: 12-27-2021 End: 12-27-2021 Office outpatient visit 15 minutes Ye Lobo MD Work Phone: [facility] Comment on above: Bipolar 1 disorder, manic, mild (HCC) (Primary Dx); Generalized anxiety disorder; Long-term use of high-risk medication Start: 12-20-2021 Telephone encounter Mona saucedo Work Phone: [facility] 250 DO Work Phone: Start: 12-19-2021 End: 01-24-2022 Recurring Felipa Sandovalim [facility] Start: 12-15-2021 Office outpatient vi sit 40 minutes Mona Baker Work Phone: [facility] 600 DO Work Phone: Start: 12-06-2021 End: 12-06-2021 Patient encounter procedure Mona Baker [facility] Start: 11-29-2021 AUDIT Mona Ward Ruggle s Work Phone: [facility] 250 DO Work Phone: Start: 11-22-2021 Rx Renewal Mona Ward Ruggle s Work Phone: [facility] 250 DO Work Phone: Start: 11-11-2021 End: 11-12-2021 ambulatory [facility] Facility:H1 Start: 11-04-2021 End: 11-05-2021 ambulatory [facility] Facility:H1 Start: 10-28-2021 Rx Renewal Mona Ward Ruggle s Work Phone: [facility] 250 DO Work Phone: Start: 10-27-2021 End: 10-27-2021 [facility]Site [facility] Start: 10-20-2021 End: 10-20-2021 Off-Site [facility] Start: 10-14-2021 End: 10-19-2021 Observation Delvin METCALFMaría [facility] Start: 10-11-2021 End: 11-02-2021 Pre-admission assessment Lawson MATHIS [facility] Start: 10-06-2021 End: 10-13-2021 Observation Gissel HINDS [facility] Start: 09-27-2021 End: 09-27-2021 Office outpatient visit 25 minutes Ye Lobo MD Work Phone: [facility] Comment on above: Bipolar 1 disorder, manic, mild (HCC) (Primary Dx); Generalized anxiety disorder; Long-term use of high-risk medication Start: 09-21-2021 End: 11-08-2021 Pre-admission assessment Felipa Milligan [facility] Start: 09-20-2021 Patient encounter procedure Mona Baker Work Phone: [facility] 600 DO Work Phone: Start: 09-16-2021 End: 12-09-2021 Pre-admission assessment Jeremías Mims [facility] Start: 08-31-2021 End: 08-31-2021 Patient encounter procedure Bess Serrano Jayden [facility] Start: 08-16-2021 Office outpatient vi sit 25 minutes Mona Baker Work Phone: [facility] 600 DO Work Phone: Start: 07-25-2021 Rx Renewal Mona De Los Santose s Work Phone: [facility] 250 DO Work Phone: Start: 07-14-2021 End: 10-14-2021 Pre-admission assessment Armani Cainflaquito [facility] Start: 06-29-2021 Office outpatient vi sit 25 minutes Mona Madrigalgles Work Phone: [facility] 600 DO Work Phone: Start: 06-29-2021 Patient encounter procedure Mona De Los Santoses Work Phone: [facility] 600 DO Work Phone: Start: 06-21-2021 End: 06-21-2021 Office outpatient visit 25 minutes Ye Lobo MD Work Phone: [facility] Comment on above: Bipolar 1 disorder, mixed, mild (HCC) (Primary Dx); Generalized anxiety disorder; Long-term use of high-risk medication Start: 06-17-2021 Patient encounter procedure Mona Madrigalgles Work Phone: [facility] [address] [place] Work Phone: Start: 05-26-2021 Patient encounter procedure Mona Madrigalgles Work Phone: [facility] [address] [place] Work Phone: Start: 05-12-2021 [facility], Provider: Felipa Milligan, Status: Pen, Time: 1:00 PM Mona Madrigalgles Work Phone: [facility] [address] [place] Work Phone: Start: 05-10-2021 Chart Update Mona Madrigalgle s Work Phone: [facility] [place] Work Phone: Start: 05-05-2021 [facility], Provider: Felipa Milligan, Status: Pen, Time: 11:20 AM Mona Madrigalgles Work Phone: [facility] [address] [place] Work Phone: Start: 04-27-2021 Patient encounter procedure Mona Madrigalgles Work Phone: [facility] [address] [place] Work Phone: Start: 04-18-2021 Telephone encounter Mona Mendez ggles Work Phone: [facility] [address] [place] Work Phone: Start: 03-30-2021 Telephone encounter Mona Mendez ggles Work Phone: [facility] 250 DO Work Phone: Start: 03-22-2021 Patient encounter procedure Mona Madrigalgles Work Phone: [facility] 250 DO Work Phone: Start: 03-16-2021 Telephone encounter Mona Mendez ggles Work Phone: [facility] 250 DO Work Phone: Start: 03-15-2021 Office outpatient vi sit 25 minutes Mona Madrigalgles Work Phone: [facility] 250 DO Work Phone: Start: 03-11-2021 Rx Renewal Felipa Milligan MD Work Phone: [facility] 600 DO Work Phone: Start: 03-10-2021 Rx Renewal Felipa Milligan MD Work Phone: [facility] 250 DO Work Phone: Procedures Date Procedure Procedure Detail Performing Clinician Start: 10-17-2023 ECG 12-LEAD JACKIE CORDOVA Start: 10-17-2023 FOLLOW UP IN CARDIOLOGY JACKIE MCGINNIS Start: 10-17-2023 Ecg routine ecg w/le ast 12 lds w/i&r Felipa Milligan MD Work Phone: Start: 09-06-2023 Colonoscopy MD Mona duong Work Phone: Start: 06-20-2023 HOLTER OR EVENT CARD IAC MONITOR JACKIE MCGINNIS Start: 06-20-2023 ECG 12-LEAD JACKIE ANDERSONANE Start: 06-17-2023 Plain chest X-ray MD Bharat Baker Start: 04-04-2023 ECG 12-LEAD JACKIE CORDOVA Start: 04-04-2023 FOLLOW UP IN CARDIOLOGY JACKIE MCGINNIS Start: 04-04-2023 Ecg routine ecg w/le ast 12 lds w/i&r Felipa Milligan MD Work Phone: Start: 02-23-2023 History of coronary artery bypass grafting S/P CABG (coronary artery bypass graft) Jackie Mcginnis MD Work Phone: Start: 02-20-2023 Adult depression scr eening assessment Keisha Brambila MANAGER AGRICULTURAL - FURNITURE SANDER Work Phone: Start: 07-25-2022 Circumcision MD Mona [...] on above: Left foot Left foot Start: 07-30-2019 Colonoscopy Mona vazquez MD Work Phone: Start: 04-04-2019 Total colonoscopy Fidel Milligan MD [...] Mastoidectomy Felipa Milligan Operation on bladder Mona Ward Olivia Work Phone: Operative procedure on foot Felipa Milligan MD Work Phone: Comment on above: LEFT FOOT RECON; Placement of stent Stent placeme nt( Confirmed ) Felipa Milligan Plan of Treatment Date Care Activity Detail Author Start: 07-30-2029 Screening for malignant neoplasm of colon [facility] Start: 06-12-2024 Urine screening for protein Diabetes: Urine Protein Screening [facility] Start: 04-15-2024 Screening for malignant neoplasm of colon [facility] Start: 04-03-2024 End: 04-03-2024 Patient encounter procedure 04/03/2024 11:00 AM EDT Office Visit [place] [address] [place] [address] [place] [address] Felipa Milligan MD [address] [facility], [place] [address] [place] [address] [facility] Start: 03-12-2024 Echocardiography Echocardiogram [facility] Start: 03-12-2024 End: 03-12-2024 Patient encounter procedure 03/12/2024 10:40 AM EDT Office Visit [facility] [address] [place] [address] Chayo Fernandez PA [address] [place] [address] [facility] Start: 03-06-2024 End: 03-06-2024 Patient encounter procedure 03/06/2024 1:20 PM EDT Office Visit [facility] [address] [place] [address] Mona Baker MD [address] [place] [address] [facility] Start: 02-28-2024 Hemoglobin A1c measurement A1C [facility] Start: 02-21-2024 Depression Screening Depression Screening [facility] Start: 02-03-2024 Influenza vaccination Influenza Vaccine (#1) [facility] Start: 01-29-2024 End: 01-29-2024 Telemedicine consultation with patient 01/29/2024 11:00 AM EDT Telemedicine [facility] [address] [place] [id number] Ye Lobo MD [facility] Alejo Liriano [address] [id number] [facility] Start: 01-17-2024 End: 10-16-2024 Alanine aminotransferase [Enzymatic activity/volume] in Serum or Plasma by With P-5'-P Alanine Aminotransferase Lab Routine 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 Mixed hyperlipidemia Expected: 01/17/2024 (Approximate), Expires: 10/16/2024 [facility] Service Area Work Phone: Comment on above: Expected: 01/17/2024 (Approximate), Expi res: 10/16/2024 Start: 01-17-2024 End: 10-16-2024 Aspartate aminotransferase [Enzymatic activity/volume] in Serum or Plasma by With P-5'-P Aspartate Aminotransferase Lab Routine 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 Mixed hyperlipidemia Expected: 01/17/2024 (Approximate), Expires: 10/16/2024 [facility] Work Phone: Comment on above: Expected: 01/17/2024 (Approximate), Expi res: 10/16/2024 Start: 01-17-2024 End: 10-16-2024 Basic metabolic 2000 panel - Serum or Plasma Basic Metabolic Panel Lab Routine 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 Paroxysmal atrial fibrillation (Multi) High risk medication use Expected: 01/17/2024 (Approximate), Expires: 10/16/2024 [facility] Work Phone: Comment on above: Expected: 01/17/2024 (Approximate), Expi res: 10/16/2024 Start: 01-17-2024 End: 10-16-2024 CBC panel - Blood by Automated count CBC Lab Routine 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 Ischemic cardiomyopathy Paroxysmal atrial fibrillation (Multi) Expected: 01/17/2024 (Approximate), Expires: 10/16/2024 [facility] Work Phone: Comment on above: Expected: 01/17/2024 (Approximate), Expi res: 10/16/2024 Start: 01-17-2024 End: 10-16-2024 Lipid 1996 panel - Serum or Plasma Lipid Panel Lab Routine 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 Mixed hyperlipidemia Expected: 01/17/2024 (Approximate), Expires: 10/16/2024 [facility] Work Phone: Comment on above: Expected: 01/17/2024 (Approximate), Expi res: 10/16/2024 Start: 01-17-2024 End: 10-16-2024 Thyrotropin [Units/volume] in Serum or Plasma Thyroid Stimulating Hormone Lab Routine Paroxysmal atrial fibrillation (Multi) S/P CABG (coronary artery bypass graft) Expected: 01/17/2024 (Approximate), Expires: 10/16/2024 [facility] Work Phone: Comment on above: Expected: 01/17/2024 (Approximate), Expi res: 10/16/2024 Start: 11-28-2023 Hemoglobin A1c measurement Diabetes: Hemoglobin A1C [facility] Start: 11-02-2023 Glaucoma screening [facility] Start: 10-17-2023 End: 10-16-2024 Complete Pulmonary Function Test (Spirometry/DLCO/Lung Volumes) Complete Pulmonary Function Test (Spirometry/DLCO/Lung Volumes) PFT Routine Paroxysmal atrial fibrillation (Multi) High risk medication use Expected: 10/17/2023 (Approximate), Expires: 10/16/2024 [facility] Work Phone: Comment on above: Expected: 10/17/2023 (Approximate), Expi res: 10/16/2024 Start: 10-17-2023 End: 10-17-2023 Patient encounter procedure 10/17/2023 10:40 AM EDT Office Visit [place] [address] [place] [address] [place] [address] Felipa Milligan MD [address] [facility] [address], [place] [address] [place] [address] [facility] Start: 10-01-2023 End: 10-01-2023 Patient encounter procedure 10/01/2023 12:00 PM EDT Office Visit [facility] [address] [place] [address] [place] [phone] Jackie Mcginnis MD [address] [facility] [place] [address] [place] [address] [facility] Start: 09-06-2023 [facility] Start: 08-21-2023 Depresssion Monitoring Depresssion Monitoring [facility] Start: 07-20-2023 COVID-19 Vaccine ( season) COVID-19 Vaccine ( season) [facility] Start: 06-08-2023 End: 06-08-2023 Patient encounter procedure 06/08/2023 10:45 AM EST Office Visit [facility] [address] [place] [phone] Keisha Brambila, MANAGER AGRICULTURAL - FURNITURE SANDER [address] [place] [address] [place] [address] [facility] Start: 05-14-2023 Administration of herpes zoster vaccine Zoster Vaccines (2 of 2) [facility] Start: 05-14-2023 COVID-19 Vaccine (6 - Pfizer risk series) COVID-19 Vaccine (6 - Pfizer risk series) [facility] Start: 05-14-2023 COVID-19 Vaccine (6 - Pfizer series) COVID-19 Vaccine (6 - Pfizer series) [facility] Start: 05-14-2023 Zoster Vaccines (2 of 2) Zoster Vaccines (2 of 2) [facility] Start: 04-04-2023 End: 04-04-2023 Patient encounter procedure 04/04/2023 11:30 AM EDT Office Visit [address] [place] [address] [place] [address] Felipa Milligan MD [address] [facility] [address], [place] [address] [place] [address] [facility] Start: 03-26-2023 FUV, Provider: Jackie Mcginnis, Status: Pen, Time: 1:00 PM FUV, Provider: Jackie Mcginnis, Status: Pen, Time: 1:00 PM O[facility]-Krttjvheu-Vxzrv ake [address] Work Phone: Start: 02-20-2023 End: 02-21-2024 CBC panel - Blood by Automated count CBC Lab Routine Memory loss Expected: 02/20/2023 (Approximate), Expires: 02/21/2024 [facility] [employer] [facility] Work Phone: Comment on above: Expected: 02/20/2023 (Approximate), Expi res: 02/21/2024 Start: 02-20-2023 End: 02-21-2024 Cobalamin (Vitamin B12) [Mass/volume] in Serum or Plasma Vitamin B12 Lab Routine Memory loss Expected: 02/20/2023 (Approximate), Expires: 02/21/2024 [facility] [employer] Comment on above: Expected: 02/20/2023 (Approximate), Expi res: 02/21/2024 Start: 02-20-2023 End: 02-21-2024 Comprehensive metabolic 1998 panel - Serum or Plasma Comprehensive metabolic panel Lab Routine Memory loss Expected: 02/20/2023 (Approximate), Expires: 02/21/2024 [facility] [employer] Comment on above: Expected: 02/20/2023 (Approximate), Expi res: 02/21/2024 Start: 02-20-2023 End: 02-21-2024 CT Head WO contrast CT head wo IV contrast Imaging Routine Memory loss Expected: 02/20/2023, Expires: 02/21/2024 [facility] [employer] Comment on above: Expected: 02/20/2023, Expires: Start: 02-20-2023 End: 02-21-2024 Folate [Mass/volume] in Serum or Plasma Folate Lab Routine Memory loss Expected: 02/20/2023 (Approximate), Expires: 02/21/2024 [facility] [employer] Comment on above: Expected: 02/20/2023 (Approximate), Expi res: 02/21/2024 Start: 02-20-2023 End: 02-21-2024 Thyrotropin [Units/volume] in Serum or Plasma TSH Lab Routine Memory loss Expected: 02/20/2023 (Approximate), Expires: 02/21/2024 [facility] [employer] Comment on above: Expected: 02/20/2023 (Approximate), Expi res: 02/21/2024 Start: 02-20-2023 End: 02-20-2023 Patient encounter procedure 02/20/2023 1:45 PM EDT Office Visit [facility] [address] [place] [address] Keisha Brambila, BALTAZAR - FURNITURE SANDER [address] [address] [facility] Start: 02-02-2023 COVID-19 Vaccine () [facility] Start: 02-02-2023 Influenza vaccination Influenza Vaccine (#1) [facility] Start: 11-20-2022 FUV, Provider: Jackie Mcginnis, Status: Pen, Time: 3:00 PM FUV, Provider: Jackie Mcginnis, Status: Pen, Time: 3:[address]Mselfsmeo-Ovlyw michelle [address] DO Work Phone: Start: 09-22-2022 FUV, Provider: Felipa Milligan, Status: Pen, Time: 3:00 PM FUV, Provider: Felipa Milligan, Status: Pen, Time: 3:00 PM NI-Weomnabxt-Kbhlz michelle B 101 DO Work Phone: Start: 09-22-2022 FUV, Provider: Felipa Milligan, Status: Pen, Time: 11:00 AM FUV, Provider: Felipa Milligan, Status: Pen, Time: 11:00 AM [facility] 600 DO Work Phone: Start: 07-31-2022 NPV, Provider: Jackie Mcginnis, Status: Pen, Time: 11:30 AM NPV, Provider: Jackie Mcginnis, Status: Pen, Time: 11:30 AM [facility] 250 DO Work Phone: Start: 07-25-2022 End: 07-25-2022 [facility] Start: 06-26-2022 NPV, Provider: Jackie Mcginnis, Status: Pen, Time: 1:00 PM NPV, Provider: Jackie Mcginnis, Status: Pen, Time: 1:00 PM [facility] Work Phone: Start: 05-23-2022 [facility] Start: 05-23-2022 [facility] Start: 05-17-2022 Blood chemistry [facility] Start: 05-17-2022 [facility] Start: 05-16-2022 Blood chemistry [facility] Start: 05-16-2022 [facility] Start: 05-15-2022 Blood chemistry [facility] Start: 05-15-2022 [facility] Start: 05-14-2022 Blood chemistry [facility] Start: 05-14-2022 End: 05-14-2022 [facility] Start: 05-13-2022 Blood chemistry [facility] Start: 05-13-2022 [facility] Start: 05-12-2022 Hospital admission [facility] Start: 05-12-2022 Referral to warehouse guard [facility] Start: 05-12-2022 [facility] Start: 04-04-2022 End: 04-04-2022 Patient encounter procedure 04/04/2022 Office Visit Psychiatry Ye Lobo MD [address] [facility] [address] [place] [id number] [facility] Start: 02-02-2022 Influenza vaccination Sequential Influenza Vaccine (#1) [facility] Start: 12-27-2021 End: 12-27-2021 Patient encounter procedure 12/27/2021 Office Visit Ye Ramirez MD [address] [facility] [address] [place] [address] [facility] Start: 12-15-2021 FUV, Provider: Felipa Milligan, Status: Pen, Time: 10:40 AM FUV, Provider: Felipa Milligan, Status: Pen, Time: 10:40 AM [facility] 600 DO Work Phone: Start: 11-11-2021 History and physical examination, annual for health maintenance Wellness Visit [facility] Start: 09-27-2021 End: 09-27-2021 Patient encounter procedure 09/27/2021 Office Visit Ye Ramirez MD [address] [facility] [address] [place] [address] [facility] Start: 09-20-2021 FUV, Provider: Felipa Milligan, Status: Pen, Time: 10:30 AM FUV, Provider: Felipa Milligan, Status: Pen, Time: 10:30 AM [facility] 250 DO Work Phone: Start: 09-13-2021 DTaP/Tdap/Td Vaccines (2 - Td or Tdap) DTaP/Tdap/Td Vaccines (2 - Td or Tdap) [facility] Start: 09-13-2021 Hemoglobin A1c measurement A1C [facility] Start: 09-13-2021 Tetanus vaccination Tetanus: Every 10yrs [facility] Start: 08-16-2021 FUV, Provider: Felipa Milligan, Status: Pen, Time: 11:30 AM FUV, Provider: Felipa Milligan, Status: Pen, Time: 11:30 AM [facility] 250 DO Work Phone: Start: 08-05-2021 EKG, Provider: RENETTA ALMEIDA INSPECTOR AND SORTER 1,[id number], Status: Pen, Time: 1:30 PM EKG, Provider: RENETTA ALMEIDA INSPECTOR AND SORTER 1,[id number], Status: Pen, Time: 1:30 PM [facility] 250 DO Work Phone: Start: 07-12-2021 FUV, Provider: Jeremías Mims, Status: Pen, Time: 10:30 AM FUV, Provider: Jeremías Mims, Status: Pen, Time: 10:30 AM [facility] 250 DO Work Phone: Start: 06-29-2021 FUV, Provider: Felipa Milligan, Status: Pen, Time: 10:30 AM FUV, Provider: Felipa Milligan, Status: Pen, Time: 10:30 AM [facility] [address] [place] Work Phone: Start: 06-20-2021 COVID-19 Vaccine (4 - Booster for Pfizer series) COVID-19 Vaccine (4 - Booster for Pfizer series) [facility] Start: 06-20-2021 COVID-19 Vaccine (6 - Pfizer series) COVID-19 Vaccine (6 - Pfizer series) [facility] Start: 05-05-2021 FUV, Provider: Felipa Milligan, Status: Pen, Time: 11:20 AM FUV, Provider: Felipa Milligan, Status: Pen, Time: 11:20 AM [facility] [address] [place] Work Phone: Start: 05-02-2021 STRESSNUC2, Provider: KEVIN HHVI NUCLEAR 01,[id number], Status: Pen, Time: 12:30 PM STRESSNUC2, Provider: KEVIN HHVI NUCLEAR 01,[id number], Status: Pen, Time: 12:30 PM [facility] [address] [place] Work Phone: Start: 04-27-2021 STRESSNUC2, Provider: KEVIN HHVI NUCLEAR 01,[id number], Status: Pen, Time: 12:30 PM STRESSNUC2, Provider: KEVIN HHVI NUCLEAR 01,[id number], Status: Pen, Time: 12:30 PM [facility] [address] [place] Work Phone: Start: 03-22-2021 EKG, Provider: RENETTA ALMEIDA INSPECTOR AND SORTER 1,[id number], Status: Pen, Time: 8:00 AM EKG, Provider: RENETTA ALMEIDA INSPECTOR AND SORTER 1,[id number], Status: Pen, Time: 8:00 AM [facility] 250 DO Work Phone: Start: 03-15-2021 BPCHECK, Provider: RENETTA ALMEIDA INSPECTOR AND SORTER 1,[id number], Status: Pen, Time: 1:45 PM BPCHECK, Provider: RENETTA ALMEIDA INSPECTOR AND SORTER 1,[id number], Status: Pen, Time: 1:45 PM [facility] 250 DO Work Phone: Start: 07-16-2020 Pneumococcal Vaccine: 65+ Years (2 - PCV) Pneumococcal Vaccine: 65+ Years (2 - PCV) [facility] Start: 07-16-2020 Pneumococcal Vaccine: Age 65+ (2 - PCV) Pneumococcal Vaccine: Age 65+ (2 - PCV) [facility] Start: 07-16-2020 Pneumococcal Vaccine: Age 65+ (2 of 2 - PCV) Pneumococcal Vaccine: Age 65+ (2 of 2 - PCV) [facility] Start: 2013 Abdominal aortic aneurysm screening Abdominal Aortic Aneurysm (AAA) Screening [facility] Start: 2013 Fall risk assessment Falls Risk Assessment [facility] Start: 2013 Pneumococcal Vaccine: 65+ Years (1 - PCV) Pneumococcal Vaccine: 65+ Years (1 - PCV) [facility] Start: 2008 Hepatitis B Vaccines (1 of 3 - Risk 3-dose series) Hepatitis B Vaccines (1 of 3 - Risk 3-dose series) [facility] Start: 1998 Administration of herpes zoster vaccine Zoster Vaccines (1 of 2) [facility] Start: 1998 Screening for malignant neoplasm of colon [facility] Start: 1998 Zoster Vaccines (1 of 2) Zoster Vaccines (1 of 2) [facility] Start: 1970 DTaP/Tdap/Td Vaccines (1 - Tdap) DTaP/Tdap/Td Vaccines (1 - Tdap) [facility] Start: 12-31-1967 DTaP/Tdap/Td Vaccines (1 - Tdap) DTaP/Tdap/Td Vaccines (1 - Tdap) [facility] Start: 12-31-1967 Urine screening for protein Diabetes: Urine Protein Screening [facility] Start: 1966 Hepatitis C screening Hepatitis C Screening [facility] Start: 1960 Depression Screening Depression Screening [facility] Start: 1958 Diabetic foot examination [facility] Start: 1958 Glaucoma screening Diabetes: Retinopathy Screening [facility] Start: 1958 Microalbumin measurement, urine, quantitative Urine Microalbumin [facility] Start: 1958 Ophthalmic examination and evaluation Ophthalmology Exam [facility] Start: 1958 Preventive dental service Diabetes: Dental Exam [facility] Start: 1958 Urine screening for protein Urine Microalbumin [facility] Start: 12-31-1951 History and physical examination, annual for health maintenance Wellness Visit [facility] Start: 12-31-1951 Medicare Wellness Visit Medicare Wellness Visit [facility] Start: 07-02-1949 COVID-19 Vaccine (#1) COVID-19 Vaccine (#1) [facility] Start: 1948 Creatinine measurement Creatinine Level [facility] Start: 1948 Hemoglobin A1c measurement [facility] Start: 1948 Lipid panel Lipid Panel [facility] Start: 1948 Medicare Advantage Annual Wellness Visit (AWV) Medicare Advantage Annual Wellness Visit (AWV) [facility] Start: 1948 Medicare Annual Wellness Visit Medicare Annual Wellness Visit (AWV) [facility] Start: 1948 Potassium measurement Potassium Level [facility] Start: 1948 Prostate specific antigen measurement PSA Level [facility] Start: 1948 Screening for malignant neoplasm of colon [facility] Start: 1948 Tetanus vaccination Tetanus: Every 10yrs [facility] Start: 1948 Thyroid stimulating hormone measurement TSH Level [facility] Patient Education [facility] Work Phone: Patient referral [facility] Work Phone: Immunizations Immunization Date Immunization Notes Care Provider [facility] 02-24-2024 influenza, high dose seasonal, preservative-free Mona Baker MD Work Phone: [facility] 02-24-2024 RSV, recombinant, protein subunit RSVpreF, adjuvant reconstitu, 120mcg/0.5mL, PF (Arexvy) Mona Baker MD Work Phone: [facility] 02-24-2024 zoster vaccine recombinant Mona Baker MD Work Phone: [facility] 03-19-2023 RSV, recombinant, protein subunit RSVpreF, adjuvant reconstitu, 120mcg/0.5mL, PF (Arexvy) Mona Baker MD Work Phone: [facility] 03-19-2023 SARS-COV-2 (COVID-19 ) vaccine, mRNA, spike protein, LNP, PF, 50 mcg/0.5 mL Mona Baker MD Work Phone: [facility] 03-19-2023 zoster vaccine recombinant Mona Baker MD Work Phone: [facility] 03-14-2023 Influenza, High-dose Seasonal, Quadrivalent, Preservative Free Mona Baker MD Work Phone: [facility] 03-14-2023 Pneumococcal Conjuga te PCV 20 Mona Baker MD Work Phone: [facility] 03-14-2023 influenza virus vacc ine, unspecified formulation Ye Lobo MD Work Phone: [facility] 04-03-2022 COVID-19 mRNA Bivale nt Booster (Pfizer) MD Mona Baker [facility] 04-03-2022 Flu vaccine, quadrivalent, high-dose, preservative free, age 65y+ (FLUZONE) Jackie Mcginnis MD Work Phone: [facility] Work Phone: 04-03-2022 influenza virus vacc ine, unspecified formulation Andi WARE [facility] 04-25-2021 Pfizer-BioNTech COVI D-19 Vacc 30 MCG/0.3ML Intramuscular Suspension Mona Baker Work Phone: [facility] 04-11-2021 influenza virus vacc ine, unspecified formulation Andi WARE [facility] 04-11-2021 influenza, injectabl e, quadrivalent, contains preservative [facility]a Baker [facility]: [facility] [place] Work Phone: Comment on above: Series: 03-30-2021 Fluzone High-Dose Quadrivalent 0.7 ML Intramuscular Suspension Prefilled Syringe Mona Baker Work Phone: [facility] DO Work Phone: 03-30-2021 influenza virus vacc ine, unspecified formulation Lawson MATHIS [facility] Comment on above: Result Comment: Rout e: Unknown Result Comment: Rout e: Unknown 03-21-2021 Pfizer-BioNTech COVI D-19 Vacc 30 MCG/0.3ML Intramuscular Suspension Mona Baker Work Phone: [facility] Comment on above: Series: 08-26-2020 Pfizer-BioNTech COVI D-19 Vacc 30 MCG/0.3ML Intramuscular Suspension; Translations: [Pfizer-BioNTech COVID-19 Vaccine] Mona Baker Work Phone: [facility] 600 DO Work Phone: Comment on above: Reason for Medicatio n: Prophylaxis Reason for Medicatio n: Prophylaxis 08-11-2020 Pfizer-BioNTech COVI D-19 Vacc 30 MCG/0.3ML Intramuscular Suspension Mona Baker Work Phone: [facility] Comment on above: Series: 07-29-2020 Pfizer-BioNTech COVI D-19 Vacc 30 MCG/0.3ML Intramuscular Suspension; Translations: [Pfizer-BioNTech COVID-19 Vaccine] Mona Baker Work Phone: [facility] [address] [place] Work Phone: Comment on above: Series: Reason for Medicatio n: Prophylaxis Reason for Medicatio n: Prophylaxis 03-28-2020 influenza virus vacc ine, unspecified formulation Andi WARE [facility] 03-28-2020 influenza, high dose seasonal, preservative-free Mona Madrigalgles Work Phone: [facility] [address] [place] Work Phone: 03-17-2020 influenza virus vacc ine, unspecified formulation Andi WARE [facility] 03-17-2020 influenza, seasonal, injectable Mona M Olivia Work Phone: [facility] 600 DO Work Phone: 02-25-2020 influenza virus vacc ine, unspecified formulation Felipa Sandovalim [facility] 02-21-2020 influenza virus vacc ine, unspecified formulation Andi WARE [facility] 02-21-2020 influenza, high dose seasonal, preservative-free Mona M Olivia Work Phone: [facility] 600 DO Work Phone: 07-16-2019 pneumococcal polysaccharide vaccine, 23 valent Mona Jens Olivia Work Phone: [facility] 600 DO Work Phone: Comment on above: Result Comment: Rout e: Unknown Result Comment: Rout e: Unknown 04-07-2019 influenza, seasonal, injectable, preservative free Mona Baker MD Work Phone: [facility] 03-20-2019 influenza virus vacc ine, unspecified formulation Andi WARE [facility] 03-20-2019 influenza, high dose seasonal, preservative-free Mona M Olivia [facility] Phone[facility] DO Work Phone: 03-04-2019 influenza virus vacc ine, unspecified formulation Mona M Olivia Work Phone: [facility] [address] [place] Work Phone: 02-26-2018 influenza virus vacc ine, unspecified formulation Mona M Olviia Work Phone: [facility] [place] Work Phone: 03-04-2017 influenza, high dose seasonal, preservative-free Mona Jens [facility] [place] Work Phone: 04-04-2016 influenza virus vacc ine, unspecified formulation Mona Jens Olivia Work Phone: [facility] [place] Work Phone: 03-16-2015 influenza virus vacc ine, unspecified formulation Andi WARE [facility] 03-16-2015 influenza, seasonal, injectable Mona Jens Olivia Work Phone: [facility] Work Phone: 03-04-2015 influenza virus vacc ine, unspecified formulation Mona Jens Olivia Work Phone: [facility] [address] [place] Work Phone: 03-04-2014 influenza virus vacc ine, unspecified formulation Mona Ward Olivia Work Phone: [facility] [address] [place] Work Phone: 03-07-2013 influenza, seasonal, injectable Leo Milligan [facility] Comment on above: Early/Late Reason: N ursing Judgment Early/Late Reason: N ursing Judgment 03-04-2012 influenza virus vacc ine, unspecified formulation Mona Jens Olivia Work Phone: [facility] [address] [place] Work Phone: 09-14-2011 tetanus toxoid, redu kelsea diphtheria toxoid, and acellular pertussis vaccine, adsorbed Leo Milligan [facility] 06-04-2011 tetanus toxoid, adsorbed Cool na M Olivia Work Phone: [facility] [address] [place] Work Phone: 03-04-2011 influenza, high dose seasonal, preservative-free Jackie Mcginnis MD Work Phone: [facility] Work Phone: 03-04-2010 influenza, high dose seasonal, preservative-free Jackie Mcginnis MD Work Phone: [facility] Work Phone: 04-24-2009 novel influenza-H1N1 -09, preservative-free, injectable Mona Jens Olivia Work Phone: [facility] DO Work Phone: 06-04-2008 pneumococcal polysaccharide vaccine, 23 valent Mona M Olivia Work Phone: [facility] [address] [place] Work Phone: influenza virus vacc ine, unspecified formulation Mona M Olivia Work Phone: [facility] [address] [place] Work Phone: Comment on above: 2010 2009 2008 Payers Date Payer Category Payer Medicare [id number] 2023 Self-pay [id number] 2022 Medicare [id number] 5 1959 Medicare [id number] 2.1 6.840.1.964280.19 1948 Unknown [id number] 2.16.8 40.1.951991.3.579.2.1069 1948 Unknown [id number] 2.16.8 40.1.613414.3.579.2.1068 1948 Unknown [id number] 2.16.84 0.1.755241.3.579.2.593 1948 Unknown [id number] 2.16.84 0.1.622698.3.579.2.593 1948 Unknown [id number] 2.16.84 0.1.401850.3.579.2.593 1948 Unknown [id number] 2.16.84 0.1.157682.3.579.2.593 1948 Unknown [id number] 2.16.84 0.1.289446.3.579.2.593 1948 Unknown [id number] 2.16.84 0.1.031904.3.579.2.593 1948 Unknown [id number] 2.16.84 0.1.686097.3.579.2.593 1948 Unknown [id number] 2.16.84 0.1.844302.3.579.2.593 1948 Unknown [id number] 2.16.84 0.1.229472.3.579.2.593 1948 Unknown [id number] 2.16.84 0.1.503863.3.579.2.593 1948 Unknown [id number] 2.16.84 0.1.308981.3.579.2.593 1948 Unknown [id number] 2.16.84 0.1.910292.3.579.2.593 1948 Unknown [id number] 2.16. 840.1.481527.3.579.2.356 1948 Unknown [id number] 2.16. 840.1.143330.3.579.2.356 1948 Unknown [id number] 2.16. 840.1.325154.3.579.2.356 1948 Unknown [id number] 2.16. 840.1.940367.3.579.2.356 1948 Unknown [id number] 2.16. 840.1.875900.3.579.2.356 1948 Unknown [id number] 2. 840.1.664545.3.579.2.356 1948 Unknown [id number] 2.16. 840.1.417139.3.579.2.356 1948 Unknown [id number] 2.16.8 40.1.594854.3.579.2.72 1948 Unknown [id number] 2.16.8 40.1.146312.3.579.2.72 1948 Unknown [id number] 2.16.8 40.1.399679.3.579.2.72 1948 Unknown [id number] 2.16.8 40.1.861878.3.579.2.72 1948 Unknown [id number] 2.16.8 40.1.206112.3.579.2.72 1948 Unknown [id number] 2.16.8 40.1.423115.3.579.2.72 1948 Unknown [id number] . 840.1.050826.3.579.2.903 1948 Unknown [id number] . 840.1.733976.3.579.2.903 1948 Unknown [id number] . 840.1.732824.3.579.2.903 1948 Unknown [id number] 2.16.8 40.1.943652.3.579.2.727 1948 Unknown [id number] 2.16.8 40.1.824577.3.579.2.72 1948 Unknown [id number] 2.16.8 40.1.405119.3.579.2.727 1948 Unknown [id number] 2.16.8 40.1.864145.3.579.2.727 1948 Unknown [id number] 2.16.8 40.1.592563.3.579.2.72 1948 Unknown [id number] 2.16.8 40.1.885927.3.579.2.72 1948 Unknown [id number] 2.16.8 40.1.024900.3.579.2. 1948 Unknown [id number] 2.16.8 40.1.520288.3.579.2. 1948 Unknown [id number] 2.16.8 40.1.541240.3.579.2. 1948 Unknown [id number] 2.16.8 40.1.246884.3.579.2 1948 Unknown [id number] 2.16.8 40.1.999071.3.579.2 1948 Unknown [id number] 2.16.8 40.1.208187.3.579.2. 1948 Unknown [id number] 2.16.8 40.1.672021.3.579.2. 1948 Unknown [id number] 2.16.8 40.1.403362.3.579.2.72 1948 Unknown [id number] 2.16.8 40.1.887287.3.579.2. 1948 Unknown [id number] 2.16.8 40.1.389539.3.579.2. 1948 Unknown [id number] 2.16.8 40.1.909174.3.579.2. 1948 Unknown [id number] 2.16.8 40.1.062631.3.579.2. 1948 Unknown [id number] 2.16.8 40.1.755118.3.579.2 1948 Unknown [id number] 2.16.8 40.1.718167.3.579.2.727 1948 Unknown [id number] 2.16.8 40.1.406392.3.579.2.727 1948 Unknown [id number] 2.16.8 40.1.463124.3.579.2.72 1948 Unknown [id number] 2.16.8 40.1.192006.3.579.2.72 1948 Unknown [id number] 2.16.8 40.1.769488.3.579.2.72 1948 Unknown [id number] 2.16.8 40.1.051874.3.579.2.72 1948 Unknown [id number] 2.16.8 40.1.055156.3.579.2.72 1948 Unknown [id number] 2.16.8 40.1.501771.3.579.2.727 1948 Unknown [id number] 2.16.8 40.1.019655.3.579.2.72 1948 Unknown [id number] 2.16.8 40.1.549527.3.579.2.727 1948 Unknown [id number] 2.16.8 40.1.799828.3.579.2.72 1948 Unknown [id number] 2.16.8 40.1.231168.3.579.2.72 1948 Unknown [id number] 2.16.8 40.1.882936.3.579.2.1244 1948 Unknown [id number] 2.16.8 40.1.910753.3.579.2.1244 1948 Unknown [id number] 2.16.8 40.1.956319.3.579.2.124 1948 Unknown [id number] 2.16.8 40.1.641780.3.579.2.1244 1948 Unknown [id number] 2.16.8 40.1.261334.3.579.2.1244 1948 Unknown [id number] 2.16.84 0.1.343471.3.579.2.1259 1948 Unknown [id number] 2.16.84 0.1.548803.3.579.2.1259 1948 Unknown [id number] 2.16.84 0.1.493982.3.579.2.125 1948 Unknown [id number] 2.16.84 0.1.076781.3.579.2.125 1948 Unknown [id number] 2.16.84 0.1.019611.3.579.2.9 1948 Unknown [id number] 2.16.84 0.1.267170.3.579.2.125 1948 Unknown [id number] 2.16.84 0.1.860162.3.579.2.125 1948 Unknown [id number] 2.16.84 0.1.139076.3.579.2.1258 1948 Unknown [id number] 2.16.84 0.1.454918.3.579.2.125 1948 Unknown [id number] 2.16.84 0.1.144217.3.579.2.125 1948 Unknown [id number] 2.16.84 0.1.354535.3.579.2.125 1948 Unknown [id number] 2.16.84 0.1.990087.3.579.2.125 1948 Unknown [id number] 2.16.840 .1.495487.3.579.2.1259 Unknown Unknown HCAP/HFA/FAP Active [id number] Unknown [id number] 2.16.8 40.1.600802.3.579.2.531 Unknown [id number] 2.16.8 40.1.737325.3.579.2.531 Unknown [id number] 2.16.8 40.1.027233.3.579.2.531 Social History Date Type Detail Facility Start: 03-20-2023 End: 04-30-2023 No alcohol use No alcohol use [facility] Comment on above: QUIT 11/2001; YETTI CUP OF COFFEE DAILY, PROTIEN SHAKE WITH COFFEE; Start: 06-21-2021 End: 12-05-2023 Tobacco smoking status NHIS Never smoked tobacco [facility] Start: 06-21-2021 End: 11-09-2022 Tobacco use and exposure Smokeless tobacco non-user [facility] Start: 06-21-2021 End: 01-29-2024 Alcohol intake Ex-drinker (finding) [facility] Start: 1950 Sex Assigned At Not on file [facility] Start: 09-17-2021 End: 10-17-2023 Exposure to SARS-CoV-2 (event) Not sure [facility] Tobacco [facility] Comment on above: deies DENIES denies Start: 03-20-2023 End: 04-30-2023 Sex Assigned At Male [facility] Tobacco smoking status No Smokin g Status Entered [facility] Start: 03-23-2022 End: 11-09-2022 Tobacco smoking status Ex-smoker (finding) [facility] Comment on above: The patient states, I quit smoking 22 years ago. Tobacco smoking status Never [facility] Comment on above: The patient states, I quit smoking 22 years ago. Start: 1950 Sex Assigned At Male [facility] Tobacco smoking stat NHIS Tobacco smoking consumption unknown [facility] End: 06-04-2000 History of tobacco use Current smoker [facility] End: 06-04-2000 History of tobacco use Cigarette Smoker [facility] Start: 03-26-2023 End: 03-06-2024 Alcohol intake Lifetime non-drinker (finding) [facility] Work Phone: Within the last year , have you been afraid of your partner or ex-partner? No [facility] Are you now , , , , never or living with a partner? [facility] How often to you hav e a drink containing alcohol? Monthly or less [facility] How many standard drinks containing alcohol do you have on a typical day? 1 or 2 [facility] How often do you hav e 6 or more drinks on 1 occasion? Never [facility] Do you feel stress - tense, restless, nervous, or anxious, or unable to sleep at night because your mind is troubled all the time - these days [OSQ] Not at all [facility] (I/We) worried wheth er (my/our) food would run out before (I/we) got money to buy more. Never true [facility] Start: 03-14-2023 Alcohol Comment Caffeine intak e: 1-2 cups per day [facility] Medical Equipment Procedure Code Equipment Code Equipment Origin al Text Equipment Identifier Dates Insertion, pacemaker Dual-chamber implantable defibrillator [id number] FDA Start: 03-08-2021 CL CLOSURE DEVIC E [...] /State Functional Status Date Assessment Result Facility 03-02-2024 Functional Status No [facility] 03-02-2024 Functional Status [facility] 02-05-2024 Functional Status N/A [facility] 01-23-2024 Functional Status N/A [facility] 12-05-2023 Functional Status N/A [facility] 08-28-2023 Functional Status N/A [facility] 08-27-2023 Functional Status [facility] 07-17-2023 Functional Status N/A [facility] 04-09-2023 Functional Status No [facility] 01-08-2023 Functional Status N/A [facility] 09-22-2022 Functional Status N/A [facility] 08-23-2022 Functional Status N/A [facility] 08-16-2022 Functional Status N/A [facility] 08-09-2022 Functional Status N/A [facility] 06-02-2022 Functional Status N/A [facility] 05-14-2022 Functional status Patient at Baseline [facility] Work Phone: 05-12-2022 Functional status Patient at Baseline [facility] Work Phone: 03-31-2022 Functional Status No [facility] 03-23-2022 Functional Status N/A [facility] 03-09-2022 Functional Status N/A [facility] 02-09-2022 Functional Status No [facility] 02-08-2022 Functional Status [facility] 02-02-2022 Functional Status N/A [facility] 2021 Functional Status Yes [facility] 12-15-2021 PHQ-9 [id number] Moderate (-) [facility] 600 DO Work Phone: Mental Status Date Assessment Result Facility 05-14-2022 Cognitive function Cognitive Sta tus Patient at Baseline [facility] Work Phone: 05-12-2022 Cognitive function Cognitive Sta tus Patient at Baseline [facility] Work Phone: Clinical Notes 07-23-2019 to 03-09-2024 Mona Baker MD - 03/06/2024 1:20 PM EDT Note Date & Type Note Facility 03-09-2024 Note Microbiology PROCEDURE: Blood Culture Charcoal [R1] SOURCE: Blood BODY SITE: Arm R COLLECTED DATE/TIME: 03/02/2024 08:19 EDT RECEIVED DATE/TIME: 03/02/2024 09:43 EDT START DATE/TIME: 03/02/2024 09:43 EDT FREE TEXT SOURCE: rt dorothy Tony M.D., Annemarie Tony M.D., Annemarie Wade FINAL REPORTS Final Report [] Verified Date/Time: 03/09/2024 11:46 EDT No growth at 7 days. Performing Locations R1: This test was performed at: [facility], [address] [place] [address], [id number], [facility] Comment on above: Performed By: #### 1 [id number] #### [facility] [address] [place] [id number] 03-09-2024 Note Microbiology PROCEDURE: Blood Culture Charcoal [R1] SOURCE: Blood BODY SITE: Arm L COLLECTED DATE/TIME: 03/02/2024 08:28 EDT RECEIVED DATE/TIME: 03/02/2024 09:43 EDT START DATE/TIME: 03/02/2024 09:43 EDT FREE TEXT SOURCE: lt ac Cecily Manzano, Annemarie Tony M.D., Annemarie Wade FINAL REPORTS Final Report [] Verified Date/Time: 03/09/2024 11:46 EDT No growth at 7 days. Performing Locations R1: This test was performed at: [facility], [address] [place] [address], [id number] [place] [address], [facility] Comment on above: Performed By: #### 1 [id number] #### [facility] [address] [place] [id number] 03-06-2024 History of Present illness Narrative Images from the original note were not included. Patient: José Luis Gil : 1950 PCP: Mona Baker MD José Luis Gil is a 73 y.o. male presenting today for follow-up after being discharged from the hospital 2 days ago. The main problem requiring admission was A/CRF 2/2 HF. The discharge summary and/or Transitional Care Management documentation was reviewed. Medication reconciliation was performed as indicated via the Carmen as Reviewed timestamp. José Luis Gil was contacted by Transitional Care Management services two days after his discharge. This encounter and supporting documentation was reviewed. Flowsheet Row Patient Outreach from 03/06/[address] [facility] with Kalpana Gomez LPN Hospital Information ED, Hospital or Fpc Facility Discharge? Hospital Patient has been contacted within two business days of discharge No Have two attempts been made to contact the patient within two business days of being discharged? Yes Diagnosis Acute on chronic respiratory failure with hypoxia, acute on chronic heart failure, COPD exacerbation, hypertensive crisis, PAF, Parkinson Syndrome, Type 2 DM with HLD, diabetic foot ulcer Discharge Date 03/04/24 Discharged To: Home Setting Discharge Hospital [facility] Engagement Admission Date 03/02/24 Medications Appointments Self Management Patient Teaching Wrap Up Wrap Up Additional Comments Had labs, CXR, Echo Review of Systems General: Denies fever, chills, fatigue, MCCARTHY or weight loss/gain CV: Denies CP, palpitations Resp: denies cough, SOB or wheezing GI: Denies abd pain/n/v/c/d Skin: Denies rash Neuro: Denies LH or dizziness Objective Vitals: 03/06/24 1346 BP: 120/70 Pulse: 60 Temp: 97.8 F SpO2: 97% Body mass index is 31.6 kg/m . Physical Exam General: alert & oriented, NAD Head: NC/AT Oral Cavity: MMM Skin: warm, dry Heart: RRR, No m/r/g, S1S2 nml Lungs: CTA b/l Abdomen: soft, ND/NT, BS wnl Musculoskeletal: walker use Extremities: no clubbing, cyanosis or edema Neurological: nonfocal, speech slowed at times Psych: mood/affect full range Assessment/Plan José Luis was seen today for hospital follow-up. Diagnoses and all orders for this visit: Hospital discharge follow-up (Primary) - Reviewed hospital course with pt and daughter Discussed sx tx, side effects of meds and concerning sx to monitor for. No changes in meds at this time Encouraged follow up with specialist as scheduled - Samples of farxiga given to pt and they are unable to afford jardiance - encouraged family to discuss with cardiology Acute hypoxic respiratory failure (CMS/HCC) - as above Acute on chronic heart failure, unspecified heart failure type (CMS/HCC) - as above Stage 3a chronic kidney disease (HCC) (CMS/HCC) - as above BMI 31.0-31.9,adult Obesity (BMI 30.0-34.9) - continue to monitor weight Follow up if symptoms worsen or fail to improve. documented in this encounter [facility] 03-04-2024 Hospital Discharge instructions Patient Education 03/04/2024 13:35:42 Heart Failure Exacerbation Heart Failure Exacerbation Heart failure is a condition in which the heart has trouble pumping blood. This may mean that the heart cannot pump enough blood out to the body or that the heart does not fill up with enough blood. When this happens, parts of the body do not get the blood and oxygen they need to function properly. This can cause symptoms such as breathing problems, tiredness (fatigue), swelling, and confusion. Heart failure exacerbation refers to heart failure symptoms that get worse. The symptoms may get worse suddenly or develop slowly over time. Heart failure exacerbation is a serious medical problem that should be treated right away. What are the causes? A heart failure exacerbation can be triggered by: Not taking your heart failure medicines correctly. Infections. Eating an unhealthy diet or a diet that is high in salt (sodium). Drinking too much fluid. Drinking alcohol. Using drugs, such as cocaine or methamphetamine. Not exercising. Other causes include: Other heart conditions such as an irregular heart rhythm (arrhythmia). Worsening heart valve function. Low blood counts (anemia). Other medical problems, such as kidney failure, thyroid problems, or diabetes mellitus. Sometimes the cause of the exacerbation is not known. What are the signs or symptoms? When heart failure symptoms suddenly or slowly get worse, this may be a sign of heart failure exacerbation. Symptoms of heart failure include: Shortness of breath during activity or exercise. A cough that does not go away. Swelling of the legs, ankles, feet, or abdomen. Losing or gaining weight for no reason. Trouble breathing when lying down. Increased heart rate or irregular heartbeat. Fatigue. Feeling light-headed, dizzy, or close to fainting. Nausea or lack of appetite. How is this diagnosed? This condition is diagnosed based on: Your symptoms and medical history. A physical exam. You may also have tests, including: Electrocardiogram (ECG). This test measures the electrical activity of your heart. Echocardiogram. This test uses sound waves to take a picture of your heart to see how well it works. Blood tests. Imaging tests, such as: ?Chest X-ray. ?MRI. ?Ultrasound. Stress test. This test examines how well your heart functions while you exercise on a treadmill or exercise bike. If you cannot exercise, medicines may be used to increase your heartbeat in place of exercise. Cardiac catheterization. During this test, a thin, flexible tube (catheter) is inserted into a blood vessel and threaded up to your heart. This test allows your health care provider to check the arteries that lead to your heart (coronary arteries). Right heart catheterization. During this test, the pressure in your heart is measured. How is this treated? This condition may be treated by: Adjusting your heart medicines. Maintaining a healthy lifestyle. This includes: ?Eating a heart-healthy diet that is low in sodium. ?Not using products that contain nicotine or tobacco. ?Regular exercise. ?Monitoring your fluid intake. ?Monitoring your weight and reporting changes to your health care provider. ?Not using alcohol or drugs. Treating sleep apnea, if you have this condition. Surgery. This may include: ?Placing a pacemaker to improve heart function (cardiac resynchronization therapy). ?Implanting a device that can correct heart rhythm problems (implantable cardioverter defibrillator). ?Implanting a pulmonary arterial pressure monitor to monitor your fluid balance. ?Connecting a device to your heart to help it pump blood (ventricular assist device). ?Heart transplant. Follow these instructions at home: Medicines Take invq-pfp-jzyswdx and prescription medicines only as told by your health care provider. Do not stop taking your medicines or change the amount you take. If you are having problems or side effects from your medicines, talk to your health care provider. If you are having difficulty paying for your medicines, contact a social worker masters or your clinic. There are many programs to assist with medicine costs. Talk to your health care provider before starting any new medicines or supplements. Make sure your health care provider and pharmacist have a list of all the medicines you are taking. Eating and drinking Avoid drinking alcohol. Eat a heart-healthy diet as told by your health care provider. This includes: ?Plenty of fruits and vegetables. ?Lean proteins. ?Low-fat dairy. ?Whole grains. ?Foods that are low in sodium. Activity Exercise regularly as told by your health care provider. Balance exercise with rest. Ask your health care provider what activities are safe for you. This includes sexual activity, exercise, and daily tasks at home or work. Lifestyle Do not use any products that contain nicotine or tobacco. These products include cigarettes, chewing tobacco, and vaping devices, such as e-cigarettes. If you need help quitting, ask your health care provider. Maintain a healthy weight. Ask your health care provider what weight is healthy for you. Consider joining a patient support group. This can help with emotional problems you may have, such as stress and anxiety. Do not use drugs. General instructions Stay up to date with vaccines. Talk to your health care provider about flu and pneumonia vaccines. Keep a list of medicines that you are taking. This may help in emergency situations. Keep all follow-up visits. This is important. Contact a health care provider if: You have questions about your medicines or you miss a dose. You feel anxious, depressed, or stressed. You develop swelling in your feet, ankles, legs, or abdomen. You develop a cough. You have a fever. You have trouble sleeping. You gain 2 3 lb (1 1.4 kg) in 24 hours or 5 lb (2.3 kg) in a week. Get help right away if: You have chest pain or pressure. You have shortness of breath while resting. You have severe fatigue. You are confused. You have severe dizziness. You have a rapid or irregular heartbeat. You have nausea or you vomit. You have a cough that is worse at night or you cannot lie flat. You have severe depression or sadness. These symptoms may represent a serious problem that is an emergency. Do not wait to see if the symptoms will go away. Get medical help right away. Call your local emergency services (911 in the [place] Do not drive yourself to the hospital. Summary When heart failure symptoms get worse, it is called heart failure exacerbation. Common causes of this condition include taking medicines incorrectly, infections, and drinking alcohol. This condition may be treated by adjusting medicines, maintaining a healthy lifestyle, or surgery. Do not stop taking your medicines or change the amount you take. If you are having problems or side effects from your medicines, talk to your health care provider. This information is not intended to replace advice given to you by your health care provider. Make sure you discuss any questions you have with your health care provider. Document Revised: 08/29/2022 Document Reviewed: 12/11/2020 [employer] Patient Education 2023 [employer]. Follow Up Care 03/02/2024 08:08:14 With:Mona Baker Address: [address] [place] [address]- Business (1) When:03/06/2024 13:20:00 With:Mona Baker Address: [address] [place] [address]- Business (1) When:7 to 10 days Comments:Call for followup appointment [facility] 03-04-2024 Note GetWell Learning Par ticipants Patient GetWell Understands Education Yes GetWell Education Video Avoiding COPD Triggers [facility] 03-04-2024 Note GetWell Learning Par ticipants Patient GetWell Understands Education Yes GetWell Education Video Heart Failure: Limiting Sodium [facility] 03-04-2024 Note GetWell Education Vi miguel COPD: How to Use a Nebulizer [employer] Learning Participants Patient GetWell Understands Education Yes [facility] 03-04-2024 Note GetWell Learning Par ticipants Patient GetWell Understands Education I need more education GetWell Education Video Avoiding Infections in the Hospital [facility] 03-04-2024 Evaluation + Plan note [place] from: Title:Progress Note * Author:Felipa Milligan MD Date:03/04/24 Impression and Plan 1 decompensated heart failure with near normal ejection fraction without acute ischemia or tachyarrhythmias. There could be an element of dietary nonadherence or medication nonadherence. Diastolic dysfunction simply can play a significant role in this presentation. Stop IV Lasix and use Demadex 40 mg daily. Home today 2 history of coronary artery bypass surgery and PCI with no recent intervention or indication of ischemia on noninvasive testing. He is on GDMT for chronic ischemic heart disease 3 s/p AICD and normal function. 4 longstanding type 2 diabetes with end organ damage 5 stage III chronic kidney disease with no progression 6 essential hypertension, currently controlled 7 mixed dyslipidemia on medical therapy under control 8 history of cerebrovascular disease and previous TIAs and strokes with minimal residual deficit, continue antiplatelet therapy and high intensity statin Extracted from: Title:Discharge Note Author:Virgil Teresa III, DO Date:03/04/24 Discharge To, Anticipated II - Home with responsible caregiver Discharged to - Home with family care Discharge Diet(s): Low Sodium- 2000 mg (03/04/24 13:33:00) Prescriptions alprazolam 0.25 mg Tab, 0.25 mg= 1 tab(s), Oral, TID, PRN, 2 refills carvedilol 25 mg Tab, 25 mg= 1 tab(s), Oral, BID Coumadin 4 mg Tab, See Instructions, 1 refills cyanocobalamin 1000 mcg/mL Inj, 1000 mcg= 1 mL, IntraMuscular, qMonth, 1 refills DuoNeb 2.5 mg-0.5 mg/3 mL Soln-Inh, 3 mL, Inhalation, QID nebulizer machine, See Instructions Physical therapy, 0 torsemide 20 mg Tab, See Instructions Home acetaminophen 325 mg Tab, 650 mg= 2 tab(s), Oral, q6hr, PRN amiodarone, 200 mg, Oral, Daily aripiprazole 5 mg Tab, 10 mg= 2 tab(s), Oral, Daily aspirin 81 mg Oral EC Tab, 81 mg= 1 tab(s), Oral, Daily atorvastatin 80 mg Tab, 80 mg= 1 tab(s), Oral, Bedtime carbidopa-levodopa 25 mg-100 mg Tab, 1.5 tab(s), Oral, TID Co-Q10 100 mg oral capsule, 100 mg= 1 cap(s), Oral, Daily enalapril 10 mg Tab, 10 mg= 1 tab(s), Oral, BID glimepiride 2 mg Tab, 2 mg= 1 tab(s), Oral, BID isosorbide mononitrate 60 mg ER Tab, 60 mg= 1 tab(s), Oral, Daily Lamictal 200 mg Tab, 200 mg= 1 tab(s), Oral, Daily levothyroxine 100 mcg (0.1 mg) Tab, 100 mcg= 1 tab(s), Oral, Daily levothyroxine 75 mcg (0.075 mg) Tab, 75 mcg= 1 tab(s), Oral, Daily magnesium oxide 400 mg Tab, 400 mg= 1 tab(s), Oral, Daily metformin 1000 mg Tab, See Instructions Multivitamins and Minerals, 1 tablet, Oral, Daily Nitro 0.4 mg Tab, 1 tablet, SubLingual, q5min, PRN Pantoprazole [address] Tab, 40 mg= 1 tab(s), Oral, Daily, Not taking Pro-Air HFA CFC free 90 mcg/inh MDI, 2 puff(s), Inhalation, q4hr, PRN tamsulosin 0.4 mg Cap trihexyphenidyl 2 mg Tab, 2 mg= 1 tab(s) Vitamin D3 1000 intl units oral tablet, 25 mcg= 1 tab(s), Oral, Daily With When Contact Information Mona Baker 03/06/2024 01:20 PM [place]T [address] [place] [address]- Business (1) Additional Instructions: Mona Baker Within 7 to [address] [place] [address]- Business (1) Additional Instructions: Call for followup appointment Heart Failure Exacerbation Extracted from: Title:APSO Note Author:Boaz Teresa III, DO Date:03/03/24 73-year-old male with [place] son's admitted for decompensated heart failure with preserved ejection fraction without acute ischemia or tachyarrhythmias. Diuresing well. Creatinine uptrending. Will continue diurese today and plan is for DC home tomorrow. On 2 L oxygen via nasal cannula. Will do O2 desat study if necessary if not weaned by tomorrow. 1. Acute on chronic respiratory failure with hypoxia (J96.21: Acute and chronic respiratory failure with hypoxia) 2 L nasal cannula currently. Continue to wean as tolerated with diuresis. Secondary to heart failure exacerbation Ordered: Basic Metabolic Panel CBC w/ Auto Diff [facility] Care/Day Moderate 35 Minutes 91697 2. Acute on chronic heart failure with preserved ejection fraction (I50.33: Acute on chronic diastolic (congestive) heart failure) Echo shows mild inferior wall hypokinesis, LV mild dilation, EF 45 to 50%, left atrium mildly dilated, pacer/defibrillator wire noted in right ventricle no significant valvular heart disease. Lasix twice daily. Changed to daily/hold tonight's dose with the significant increase in creatinine Unable to afford Jardiance so we will withhold. Otherwise we will continue guideline directed medical therapy including Imdur, ADWOA, beta-valerio, loop diuretic History of CABG with PCI with no recent intervention and AICD with normal function. Ordered: Basic Metabolic Panel CBC w/ Auto Diff [facility] Care/Day Moderate 35 Minutes 30599 3. COPD exacerbation (J44.1: Chronic obstructive pulmonary disease with (acute) exacerbation) Mild exacerbation. DuoNebs Ordered: [facility] Care/Day Moderate 35 Minutes 78417 4. Hypertensive crisis (I16.9: Hypertensive crisis, unspecified) Blood pressure significantly improved. Continue antihypertensives. Will switch IV Lasix to p.o. prior to discharge [facility] Moderate 35 Minutes 78195 5. Hyperlipidemia, unspecified, (E78.5: Hyperlipidemia, unspecified)Hyperlipidemia, unspecified High intensity statin 6. PAF (paroxysmal atrial fibrillation) (I48.0: Paroxysmal atrial fibrillation) Amiodarone, beta-valerio, has AICD 7. Parkinsonian syndrome (G20: Parkinson's disease) Carbidopa-levodopa 8. Type 2 diabetes mellitus with hyperlipidemia (E11.69: Type 2 diabetes mellitus with other specified complication) Glimepiride, BGT ACHS, sliding scale insulin as needed 9. Hypertension (I10: Essential (primary) hypertension) See #4 10. Diabetic foot ulcer (E11.621: Type 2 diabetes mellitus with foot ulcer) Wound appears cleared and does not look infected. Outpatient podiatry follow- up/wound care. Non-pressure chronic ulcer of other part of unspecified foot with unspecified severity (L97.509: Non-pressure chronic ulcer of other part of unspecified foot with unspecified severity) Orders: furosemide, 40 mg = 4 mL, Injection, IV Push, Daily, Routine, Start date 03/04/24 9:00:00 EDT, 03/03/24 14:55:00 EDT Capillary Glucose POC Capillary Glucose POC Change Attending Resuscitation Status - Full Extracted from: Title:Progress Note * Author:Felipa Milligan MD Date:03/03/24 Impression and Plan 1 decompensated heart failure with near normal ejection fraction without acute ischemia or tachyarrhythmias. There could be an element of dietary nonadherence or medication nonadherence. Diastolic dysfunction simply can play a significant role in this presentation. Continue IV Lasix, repeat chest x-ray tomorrow, continue other medications, potential discharge home tomorrow 2 history of coronary artery bypass surgery and PCI with no recent intervention or indication of ischemia on noninvasive testing. He is on GDMT for chronic ischemic heart disease 3 s/p AICD and normal function. 4 longstanding type 2 diabetes with end organ damage 5 stage III chronic kidney disease with no progression 6 essential hypertension, currently controlled 7 mixed dyslipidemia on medical therapy under control 8 history of cerebrovascular disease and previous TIAs and strokes with minimal residual deficit, continue antiplatelet therapy and high intensity statin Extracted from: Title:Cardiovascular Admission H&P * Author:Clint garcia MD, Feng Date:03/02/24 Impression and Plan 1. Acute on chronic systolic heart failure last echocardiogram reported ejection fraction in the normal range however upon review the echo personally I see some regional motion abnormality that was not reported in the inferior wall and I believe the ejection fraction had been overestimated. Patient on good guideline directed heart failure therapy 2. Coronary disease prior bypass surgery last ischemic evaluation was back in showing patent ZAVALA to the LAD and 2 vein graft medical therapy was recommended 3. Status post AICD implantation 4. Hyperlipidemia 5. Diabetes mellitus 6. Parkinson disease 7. Paroxysmal atrial fibrillation maintaining sinus rhythm with amiodarone on long-term anticoagulation Plan 1. Continue home medication 2. Loop diuretics 3. Repeat echocardiogram 4. Add Jardiance Extracted from: Title:Admission H & P Author:Delaney Samaniego MD Date:03/02/24 1. Acute on chronic respirat ory failure with hypoxia (J96.21: Acute and chronic respiratory failure with hypoxia) this is due to CHF and COPD supplemental oxygen as tolerated wean off as able per patient, he was on home oxygen at some point but this was discontinued Ordered: Initial Hospital Care/Day High 75 Minutes 83362 2. Acute on chronic heart failure (I50.9: Heart failure, unspecified) Improved breathing since IV diuresis was given in the ER lasix ordered 40 mg BID. Monitor intake and out put cardiac diet Echo ordered, Last Echo in system was done in march 2023. at that time Ef was 50-55% monitor daily weight consult placed to cardiology team Ordered: Initial Hospital Care/Day High 75 Minutes 56673 3. COPD exacerbation (J44.1: Chronic obstructive pulmonary disease with (acute) exacerbation) mild exacerbation will continue breathing treatment will try to avoid steroid since wheezing is not significant and may improve when appropriately diuresed. resume home breathing treatment Ordered: Initial Hospital Care/Day High 75 Minutes 18800 4. Hypertensive crisis (I16.9: Hypertensive crisis, unspecified) resume home meds when med rec is done Ordered: Initial Hospital Care/Day High 75 Minutes 11588 5. Hyperlipidemia, unspecified, (E78.5: Hyperlipidemia, unspecified)Hyperlipidemia, unspecified continue statin Ordered: Initial Hospital Care/Day High 75 Minutes 55552 6. PAF (paroxysmal atrial fibrillation) (I48.0: Paroxysmal atrial fibrillation) rate is well controlled continue home meds resume eliquis as DVT prophylaxis agent and for atrial fibrillation Ordered: Initial Hospital Care/Day High 75 Minutes 10377 7. Parkinsonian syndrome (G20: Parkinson's disease) continue med Ordered: Initial Hospital Care/Day High 75 Minutes 51390 8. Type 2 diabetes mellitus with hyperlipidemia (E11.69: Type 2 diabetes mellitus with other specified complication) elevated BGL this morning Solu-medrol given to patient may be contributing resume home medications accucheck achs Ordered: Initial Hospital Care/Day High 75 Minutes 64153 9. Hypertension (I10: Essential (primary) hypertension) poor control monitor and adjust home medications Ordered: Initial Hospital Care/Day High 75 Minutes 07674 10. Diabetic foot ulcer (E11.621: Type 2 diabetes mellitus with foot ulcer) wound appears clean and doesn't look infected. patient follows with podiatry daily localized wound care Ordered: Initial Hospital Care/Day High 75 Minutes 86020 Non-pressure chronic ulcer of other part of unspecified foot with unspecified severity (L97.509: Non-pressure chronic ulcer of other part of unspecified foot with unspecified severity) Orders: furosemide, 40 mg = 4 mL, Injection, IV Push, BID, NOW, Start date 03/02/24 11:20:00 EDT, 03/02/24 11:20:00 EDT ondansetron, 4 mg = 2 mL, Injection, IV Push, q6hr PRN Nausea, Routine, Start date 03/02/24 11:20:00 EDT, 03/02/24 11:20:00 EDT senna, 17.2 mg = 2 tab(s), Tab, Oral, BID PRN Other (see comment), Routine, Start date 03/02/24 11:20:00 EDT Ambulate with Assistance Basic Metabolic Panel Cardiac Diet Cardiac Monitoring CBC w/ Auto Diff Consult to Cardiology Echo Transthoracic Complete Heart Failure Quality Measures Intake and Output Magnesium Level Occupational Therapy Evaluate Patient, Develop a Plan of Care and Implement Plan Oxygen Protocol Physical Therapy Evaluate Patient, Develop a Plan of Care and Implement Plan TSH With T4fr Reflex Weight Extracted from: Title:ED Note Author:Cecily Manzano, Annemarie Mtz te:03/02/24 1. Acute on chronic respirat ory failure with hypoxia (J96.21: Acute and chronic respiratory failure with hypoxia) 2. Acute on chronic heart failure (I50.9: Heart failure, unspecified) COPD exacerbation (J44.1: Chronic obstructive pulmonary disease with (acute) exacerbation) Hypertensive crisis (I16.9: Hypertensive crisis, unspecified) Orders: albuterol-ipratropium, 3 mL, Soln-Inh, Inhalation, Once, Stop date 03/02/24 8:11:00 EDT, STAT, Start date 03/02/24 8:11:00 EDT furosemide, 40 mg = 4 mL, Injection, IV Push, Once, Stop date 03/02/24 8:54:00 EDT, STAT, Start date 03/02/24 8:54:00 EDT, 03/02/24 8:54:00 EDT nitroglycerin, 0.4 mg = 1 tab(s), Tab, SubLingual, q5min PRN Chest pain for 3 dose(s), Stop date Limited # of times, STAT, Start date 03/02/24 8:54:00 EDT, 03/02/24 8:54:00 EDT B-Type Natriuretic Peptide Basic Metabolic Panel Blood Culture Charcoal Blood Culture Charcoal Blood Gas Art, with Lytes, Gluc, Lact CBC w/ Auto Diff Continuous Pulse Oximetry ED Cardiac Monitoring ED Physician consult Hospitalist for continued care eGFR Lactic Acid Oxygen Therapy PT & PTT Rapid [place] [place] Saline Lock Insert Troponin 0 Hr. Troponin 1 Hr. UA with Cult Rflx XR Chest Single View Future Appointments Appointment Date:03/14/2024 02:00:00 PM Scheduled Provider: Location:[facility] Appointment Type:Anticoagulation Follow Up 15 (FT) Appointment Date:04/10/2024 11:00:00 AM Scheduled Provider: Location:.CARDIO Appointment Type:NCV Pacemaker (FT) Appointment Date:10/30/2024 01:40:00 PM Scheduled Provider:Armani Yarbrough DO Location:.ONCOLOGY Appointment [...] Transferrin 10/23/24 Radiology* CT Chest w/o Contrast 08/14/24 * CT Chest w/o Contrast 04/09/23 * MRI Brain w/o Contrast 03/15/23 [facility] 10-01-2024 NoteProgress Note-Physician Patient: JOSÉ LUIS FAULKNER Age: 73 years Sex: Male : 1950 Associated Diagnoses: None Author: Felipa Milligan MD Subjective Patient is feeling much better and with disappearance of the abnormal findings on the stress examination. He has no lower extremity edema. Vital signs are stable. Echocardiogram demonstrated near normal ejection fraction at 50% with mild inferior wall hypokinesis. No significant valvular abnormalities were seen. The patient cannot afford Jardiance on long-term basis and will be discontinued. Willcontinue IV Lasix until tomorrow, check chest x-ray tomorrow morning and if all looks good he can be discharged home Cardiology follow-up 03/04/2024: Patient is stable back to his baseline with no dyspnea at rest. Hislungs are clear, his vital signs are stable. Lab data were reviewed and are acceptable. IV Lasix will be discontinued and will be replaced by torsemide 40 mg daily. The patient cannot afford Jardiance therefore no prescriptions will be sent out for that. He is scheduled to see me at the end of the month in my office. This appointment will be kept unchanged. Daily weights at home and adherence to low-salt and 1800 cc of fluid restriction daily will be advocated. Health Status Allergies: Allergic Reactions (All) No Known Allergies Current medications: Home Medications (30) Active acetaminophen 325 mg Tab 650 mg = 2 tab(s), PRN, Oral, q6hr alprazolam 0.25 mg Tab 0.25 mg = 1 tab(s), PRN, Oral, TID amiodarone 200 mg, Oral, Daily aripiprazole 5 mg Tab 10 mg = 2 tab(s), Oral, Daily aspirin 81 mg Oral EC Tab 81 mg = 1 tab(s), Oral, Daily atorvastatin 80 mg Tab 80 mg = 1 tab(s), Oral, Bedtime carbidopa-levodopa 25 mg-100 mg Tab 1.5 tab(s), Oral, TID carvedilol 25 mg Tab 25 mg = 1 tab(s), Oral, BID Co-Q10 100 mg oral capsule 100 mg = 1 cap(s), Oral, Daily Coumadin 4 mg Tab See Instructions cyanocobalamin 1000 mcg/mL Inj 1,000 mcg = 1 mL, IntraMuscular, qMonth DuoNeb 2.5 mg-0.5 mg/3 mL Soln-Inh 3 mL, Inhalation, QID enalapril 10 mg Tab 10 mg = 1 tab(s), Oral, BID glimepiride 2 mg Tab 2 mg = 1 tab(s), Oral, BID isosorbide mononitrate 60 mg ER Tab 60 mg = 1 tab(s), Oral, Daily Lamictal 200 mg Tab 200 mg = 1 tab(s), Oral, Daily levothyroxine 100 mcg (0.1 mg) Tab 100 mcg = 1 tab(s), Oral, Daily levothyroxine 75 mcg (0.075 mg) Tab 75 mcg = 1 tab(s), Oral, Daily magnesium oxide 400 mg Tab 400 mg = 1 tab(s), Oral, Daily metformin 1000 mg Tab See Instructions Multivitamins and Minerals 1 tablet, Oral, Daily nebulizer machine See Instructions Nitro 0.4 mg Tab 1 tablet, PRN, SubLingual, q5min Pantoprazole [address] Tab 40 mg = 1 tab(s), Oral, Daily Physical therapy 0 Pro-Air HFA CFC free 90 mcg/inh MDI 2 puff(s), PRN, Inhalation, q4hr tamsulosin 0.4 mg Cap torsemide 20 mg Tab See Instructions trihexyphenidyl 2 mg Tab 2 mg = 1 tab(s) Vitamin D3 1000 intl units oral tablet 25 mcg = 1 tab(s), Oral, Daily , Medications (24) Active Scheduled: (19) albuterol-ipratropium 2.5 mg-0.5 mg/3 mL SOLN [F] 3 mL, Inhalation, QID amiodarone 200 mg Tab [F] 200 mg 1 tab(s), Oral, Daily ARIPiprazole 5 mg Tab [F] 10 mg 2 tab(s), Oral, Daily aspirin 81 mg Oral EC Tab [F] 81 mg 1 tab(s), Oral, Daily atorvastatin 40 mg Tab [F] 80 mg 2 tab(s), Oral, Bedtime carbidopa-levodopa 25 mg-100 mg Tab [F] 1.5 tab(s), Oral, TID carvedilol 25 mg Tab [F] 25 mg 1 tab(s), Oral, BID enalapril 10 mg Tab [F] 10 mg 1 tab(s), Oral, BID furosemide 10 mg/mL Inj 4 mL [F] 40 mg 4 mL, IV Push, Daily glimepiride 2 mg Tab [F] 2 mg 1 tab(s), Oral, BID insulin lispro 100 units/mL (HUMALOG) 10 mL SubQ inj [F] 0-10 Unit(s), SubCutaneous, QIDACHS isosorbide mononitrate 60 mg ER Tab [F] 60 mg 1 tab(s), Oral, Daily lamoTRIgine 200 mg Tab [F] 200 mg 1 tab(s), Oral, Daily levothyroxine 100 mcg (0.1 mg) Tab [F] 100 mcg 1 tab(s), Oral, Daily levothyroxine 75 mcg (0.075 mg) Tab [F] 75 mcg 1 tab(s), Oral, Daily pantoprazole [address] Tab [F] 40 mg 1 tab(s), Oral, Daily tamsulosin 0.4 mg Cap [F] 0.4 mg 1 cap(s), Oral, Daily warfarin 2 mg Tab [F] 2 mg 1 tab(s), Oral, Once warfarin PHARMACY TO DOSE [F] Pharmacy to dose, Oral, As Directed Continuous: (0) PRN: (5) acetaminophen 325 mg Tab UD [F] 650 mg 2 tab(s), Oral, q6hr ALPRAZolam 0.25 mg Tab [F] 0.25 mg 1 tab(s), Oral, TID dextrose 50% IV Ayanna 50 mL Abboject [F] 50 mL, IV Push, Once ondansetron 2 mg/mL Inj [F] 4 mg 2 mL, IV Push, q6hr senna 8.6 mg Tab [F] 17.2 mg 2 tab(s), Oral, BID Problem list: All Problems Weakness generalized / 87432930 / Confirmed At risk for falls / 810402249 / 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 / 1003307008 / Confirmed Carotid artery stenosis / 432555697 / Confirmed Charcot's joint of foot due to diabetes / 953125551 / Confirmed Chronic anemia / 924753740 / Confirmed COPD without exacerbation / 834325431 / Confirmed Chronic systolic h (more content not included)...[facility] Comment on above:Result Comment: Electronically Signed By: Danna BROUSSARD, Felipa\.br\Date and Time Signed: 03/04/24 13:55 [id number] NoteDischarge Summary Admission and Discharge Information Admit Date/Time:03/02/2024 09:27 Admitting Physician - Paul Samaniego MD Consulting Physician - Danna BROUSSARD, Felipa [facility], [facility] Admitting Diagnoses: 3. COPD exacerbation, 03/02/2024 4. Hypertensive crisis, 03/02/2024 Discharge Order Date Discharge Patient - Ordered -- 03/04/24 13:24:00 EDT, home Discharge Diagnoses 1. Acute on chronic respiratory failure with hypoxia, 03/02/2024 2. Acute on chronic heart failure with preserved ejection fraction, 03/03/2024 3. COPD exacerbation, 03/02/2024 4. Hypertensive crisis, 03/02/2024 5. Hyperlipidemia, unspecified, Hyperlipidemia, unspecified 6. PAF (paroxysmal atrial fibrillation), 03/02/2024 7. Parkinsonian syndrome, 03/02/2024 8. Type 2 diabetes mellitus with hyperlipidemia, 03/02/2024 9. Hypertension, 03/02/2024 10. Diabetic foot ulcer, 03/02/2024 Non-pressure chronic ulcer of other part of unspecified foot with unspecified severity, 03/02/2024 Shortness of breath, 03/02/2024 Procedure History Circumcision (07/25/2022), TURBT - Transurethral resection of bladder tumor (05/23/2022), Cardiac catheterisation (11/10/2021), Cardioversion (04/06/2021), Defibrillator, device (03/04/2021), Pacemaker catheter, device (03/04/2021), Incision AND drainage (12/08/2019), Stent placement (02/25/2018), Excision skin lesion RUE (09/08/2016), Cataract extraction with lens implantation, right eye. (01/17/2016), CABG - Coronary artery bypass graft, Cardiovascular stress test using pharmacologic stress agent, Colonoscopy and biopsy of colon, Cystoscopy, Esophagogastroduodenoscopy and biopsy, Mastoidectomy. Hospital Course The patient is a 73-year-old male with past medical history of Parkinson's, T2DM, heart failure with preserved ejection fraction, CAD with history of CABG and PCI with no recent intervention or indications of ischemia, paroxysmal A-fib on chronic anticoagulation, AICD, hypertension, CKD 3, hyperlipidemia, history of previous strokes and TIAs with minimal residual deficit who was admitted to [facility] on March 02, 2024 with acute hypoxic respiratory failure secondary to an acute heart failure exacerbation. On admission, EKG showed sinus rhythm with no evidence of new ischemia. Chest x-ray showed cardiomegaly with interstitial edema. Echo showed mild inferior wall hypokinesis, LV mildly dilated, EF 45 to 50%, left atrium mildly dilated, pacer/defibrillator wire noted in right ventricle. The patient was hypoxic and required approximately 3 L nasal cannula close gradually weaned during his admission. He was weaned to room air successfully prior to discharge. Cardiology was consulted and saw the patient during his admission. Patient was diuresed and was net negative greater than 4L over the course of his admission. Cardiology was consulted and saw the patient during his admission. Creatinine on admission was 1.1 with a previous baseline of 1.3. Creatinine and BUN trended up slightly with diuresis and was 1.4 on discharge. Cardiology recommended Jardiance in addition to current GDMT, however, the patient stated that he was in a donut hole and cannot afford Jardiance on a long-term basis. Patient was medically stable for discharge was on room air on 03/04/2024 and was cleared to discharge by cardiology. No medication changes were made on discharge. Patient was counseled to check daily weight and continued home torsemide with as needed torsemide for her weight gain. He should follow-up with his primary care physician in 7 to 10 days and continue all medications otherwise. Services Consulted Consult to Cardiology - Ordered -- 03/02/24 11:20:00 EDT, Consult and Co-manage, [facility] Physical Exam Vitals & Measurements T: 37 ?C(Axillary) TMIN: 36.5 ?C(Axillary) TMAX: 37 ?C(Axillary) HR: 68(Monitored) RR: 20 BP: 106/64 SpO2: 94% WT: 100.3 kg General: alert, no acute distress. Alert and conversational. Skin: warm, dry Head: no trauma, normocephalic Neck: Trachea midline, no adenopathy, no tenderness. no JVD Eye: normal conjunctiva, sclera clear ENMT: oral mucosa moist Cardiovascular: regular rate and rhythm, normal peripheral perfusion Respiratory: Lungs CTA with mild LLL crackles. respirations non labored Chest wall: no deformity. Gastrointestinal: soft, non distended, no tenderness, no guarding. Back: No tenderness, Normal ROM, Normal alignment. Extremities: no deformity, no trauma. no edema Neurological: oriented x 4, LOC appropriate for age, CN II-XII intact, motor strength equal & normal bilaterally, sensation equal & normal bilaterally, speech normal Psychiatric: cooperative, affect appropriate for age, normal judgement, normal psychiatric thoughts. Tests Performed Echo Transthoracic w/ Contrast XR Chest Single View Discharge Plan Discharge Disposition Discharge To, Anticipated II - Home with responsible caregiver Discharged to - Home with family care Discharge Diet Discharge D (more content not included)...[facility]:Result Comment: Electronically Signed By: Boaz Teresa III, DO\.ricardo\Date and Time Signed: 03/04/24 13:47 [id number] Telephone encounter Note* Telephone Encounter - Nettie Hernandez - 03/04/2024 1:34 PM EDT [facility] resp fail w hypoxia , chf, hyperlipodemia, admit 03/02 discharge 03/04, pt sched[id number] Miscellaneous Notes* Telephone Encounter - Nettie Hernandez - 03/04/2024 1:34 PM EDT [facility] – [place] calls to sched felicia for resp fail w hypoxia , chf, hyperlipodemia, admit 03/02 discharge 03/04, pt sched, closing enc documented in this encounterFitzgibbon [id number] NoteProgress Note - Pharmacy Pharmacy to Dose Warfarin Indication for warfarin therapy: Afib Target INR: 2-3 Ordering Provider: Aden Taking warfarin prior to admission: Yes Home Regimen: Sunday: 4mg Sunday: 4mg Sunday: 4mg Sunday: 4mg : 4mg Sunday: 4mg Sunday: 4mg Total Weekly Dose: 28mg INR values/Dose given: 03/02: INR 2.33 - 4mg 03/03: INR 2.04 - 4 mg 03/04: INR 2.71 Scheduled dose for today: Notes: 03/02: INR therapeutic. Patient [place] with [facility] [place]. Will continue home regimentoday. Discharge Recommendations: tbd Do to questionable compliance with amiodarone priort to admission and large jump in INR from yesterday, will dose more conservatively at 2 mg for todayTri[facility] NoteProgress Note-Physician Assessment/Plan 73-year-old male with Parkinson's admitted for decompensated heart failure with preserved ejection fraction without acute ischemia or tachyarrhythmias. Diuresing well. Creatinine uptrending. Will continue diurese today and plan is for DC home tomorrow. On 2 L oxygen via nasal cannula. Will do O2 desat study if necessary if not weaned by tomorrow. 1. Acute on chronic respiratory failure with hypoxia (J96.21: Acute and chronic respiratory failurewith hypoxia) 2 L nasal cannula currently. Continue to wean as tolerated with diuresis. Secondary to heart failure exacerbation Ordered: Basic Metabolic Panel CBC w/ Auto Diff [facility] Care/Day Moderate 35 Minutes 47316 2. Acute on chronic heart failure with preserved ejection fraction (I50.33: Acute on chronic diastolic (congestive) heart failure) Echo shows mild inferior wall hypokinesis, LV mild dilation, EF 45 to 50%, left atrium mildly dilated, pacer/defibrillator wire noted in right ventricle no significant valvular heart disease. Lasix twice daily. Changed to daily/hold tonight's dose with the significant increase in creatinine Unable to afford Jardiance so we will withhold. Otherwise we will continue guideline directed medical therapy including Imdur, ADWOA, beta-valerio, loop diuretic History of CABG with PCI with no recent intervention and AICD with normal function. Ordered: Basic Metabolic Panel CBC w/ Auto Diff [facility] Care/Day Moderate 35 Minutes 04496 3. COPD exacerbation (J44.1: Chronic obstructive pulmonary disease with (acute) exacerbation) Mild exacerbation. DuoNebs Ordered: [facility] Care/Day Moderate 35 Minutes 21432 4. Hypertensive crisis (I16.9: Hypertensive crisis, unspecified) Blood pressure significantly improved. Continue antihypertensives. Will switch IV Lasix to p.o. prior to discharge Ordered: [facility] Care/Day Moderate 35 Minutes 80412 5. Hyperlipidemia, unspecified, (E78.5: Hyperlipidemia, unspecified)Hyperlipidemia, unspecified High intensity statin 6. PAF (paroxysmal atrial fibrillation) (I48.0: Paroxysmal atrial fibrillation) Amiodarone, beta-valerio, has AICD 7. Parkinsonian syndrome (G20: Parkinson's disease) Carbidopa-levodopa 8. Type 2 diabetes mellitus with hyperlipidemia (E11.69: Type 2 diabetes mellitus with other specified complication) Glimepiride, BGT ACHS, sliding scale insulin as needed 9. Hypertension (I10: Essential (primary) hypertension) See #4 10. Diabetic foot ulcer (E11.621: Type 2 diabetes mellitus with foot ulcer) Wound appears cleared and does not look infected. Outpatient podiatry follow- up/wound care. Non-pressure chronic ulcer of other part of unspecified foot with unspecified severity (L97.509: Non-pressure chronic ulcer of other part of unspecified foot with unspecified severity) Orders: furosemide, 40 mg = 4 mL, Injection, IV Push, Daily, Routine, Start date 03/04/24 9:00:00 EDT, 03/03/24 14:55:00 EDT Capillary Glucose POC Capillary Glucose POC Change Attending Resuscitation Status - Full Subjective Significant net -3 L on I's and O's. Diuresing well per patient. Creatinine uptrending significantly from 1.1 to 1.5. Will diurese for 1 more day, but will hold this evening dose of Lasix. Patient reports good urine output. Still on 2 L nasal cannula and is not on oxygen at home. Would like to be off of oxygen prior to discharge. Tolerating diet. Pleasant and conversational on exam. Negative review of systems other than shortness of breath. No significant edema or JVD. Review of Systems Constitutional: no fever, no chills, no sweats, no weakness Respiratory: mild shortness of breath, no cough, no orthopnea, no wheezing Cardiovascular: no chest pain, no palpitations, no edema Additional ROS info: Except as noted in the above Review of Systems and in the History of Present Illness all other systems have been reviewed and are negative or noncontributory. Objective Vitals & Measurements T: 36.5 ?C(Axillary) TMIN: 36.4 ?C(Oral) TMAX: 37.3 ?C(Axillary) HR: 62(Monitored) RR: 16 BP: 149/69 SpO2: 95% Intake & Output This visit (24 hour periods starting at 07:00 EDT) 03/03/24 * 03/02/24 03/01/24 Total Summary Intake mL 5.3 488 -- Output mL 450 3,075 -- Fluid Balance -444.7 -2,587 -- Intake (3) Oral Intake mL -- 480 -- furosemide mL 4 8 -- perflutren mL 1.3 -- -- Total 5.3 488 -- Output (1) Urine Voided mL 450 3,075 -- Total 450 3,075 -- Counts (1) Stool Count -- 1 -- * This column has not completed the indicated time period. Physical Exam General: alert, no acute distress. Alert and conversational. Skin: warm, dry Head: no trauma, normocephalic Neck: Trachea midline, no adenopathy, no tenderness. no JVD Eye: normal conjunctiva, sclera clear ENMT: oral mucosa moist Cardiovascular: regular rate and rhythm, normal (more content not included)... [facility] HospitalComment on above:Result Comment: Electronically Signed By: Boaz Teresa III, DO.ricardo\Date and Time Signed: 03/03/24 15:25 [id number] NoteProgress Note-Physician Patient: JOSÉ LUIS FAULKNER Age: 73 years Sex: Male : 1950 Associated Diagnoses: None Author: Felipa Milligan MD Subjective Patient is feeling much better and with disappearance of the abnormal findings on the stress examination. He has no lower extremity edema. Vital signs are stable. Echocardiogram demonstrated near normal ejection fraction at 50% with mild inferior wall hypokinesis. No significant valvular abnormalities were seen. The patient cannot afford Jardiance on long-term basis and will be discontinued. Willcontinue IV Lasix until tomorrow, check chest x-ray tomorrow morning and if all looks good he can be discharged home Health Status Allergies: Allergic Reactions (All) No Known Allergies Current medications: Home Medications (34) Active acetaminophen 325 mg Tab 650 mg = 2 tab(s), PRN, Oral, q6hr Aldactone 25 mg Tab 25 mg = 1 tab(s), Oral, Daily alprazolam 0.25 mg Tab 0.25 mg = 1 tab(s), PRN, Oral, TID amiodarone 200 mg, Oral, Daily aripiprazole 5 mg Tab 10 mg = 2 tab(s), Oral, Daily aspirin 81 mg Oral EC Tab 81 mg = 1 tab(s), Oral, Daily atorvastatin 80 mg Tab 80 mg = 1 tab(s), Oral, Bedtime carbidopa-levodopa 25 mg-100 mg Tab 1.5 tab(s), Oral, TID carvedilol 25 mg Tab 25 mg = 1 tab(s), Oral, BID ciprofloxacin 500 mg Tab 500 mg = 1 tab(s) Co-Q10 100 mg oral capsule 100 mg = 1 cap(s), Oral, Daily Coumadin 4 mg Tab See Instructions cyanocobalamin 1000 mcg/mL Inj 1,000 mcg = 1 mL, IntraMuscular, qMonth DuoNeb 2.5 mg-0.5 mg/3 mL Soln-Inh 3 mL, Inhalation, QID Eliquis 5 mg oral tablet 5 mg = 1 tab(s), Oral, BID enalapril 10 mg Tab 10 mg = 1 tab(s), Oral, BID glimepiride 2 mg Tab 2 mg = 1 tab(s), Oral, BID Humalog See Instructions isosorbide mononitrate 60 mg ER Tab 60 mg = 1 tab(s), Oral, Daily Lamictal 200 mg Tab 200 mg = 1 tab(s), Oral, Daily levothyroxine 100 mcg (0.1 mg) Tab 100 mcg = 1 tab(s), Oral, Daily levothyroxine 75 mcg (0.075 mg) Tab 75 mcg = 1 tab(s), Oral, Daily magnesium oxide 400 mg Tab 400 mg = 1 tab(s), Oral, Daily metformin 1000 mg Tab See Instructions Multivitamins and Minerals 1 tablet, Oral, Daily nebulizer machine See Instructions Nitro 0.4 mg Tab 1 tablet, PRN, SubLingual, q5min NovoLIN N FlexPen 100 units/mL subcutaneous suspension 20 unit(s), SubCutaneous, BID Pantoprazole [address] Tab 40 mg = 1 tab(s), Oral, Daily Pro-Air HFA CFC free 90 mcg/inh MDI 2 puff(s), PRN, Inhalation, q4hr tamsulosin 0.4 mg Cap torsemide 20 mg Tab See Instructions trihexyphenidyl 2 mg Tab 2 mg = 1 tab(s) Vitamin D3 1000 intl units oral tablet 25 mcg = 1 tab(s), Oral, Daily , Medications (24) Active Scheduled: (19) albuterol-ipratropium 2.5 mg-0.5 mg/3 mL SOLN [F] 3 mL, Inhalation, QID amiodarone 200 mg Tab [F] 200 mg 1 tab(s), Oral, Daily ARIPiprazole 5 mg Tab [F] 10 mg 2 tab(s), Oral, Daily aspirin 81 mg Oral EC Tab [F] 81 mg 1 tab(s), Oral, Daily atorvastatin 40 mg Tab [F] 80 mg 2 tab(s), Oral, Bedtime carbidopa-levodopa 25 mg-100 mg Tab [F] 1.5 tab(s), Oral, TID carvedilol 25 mg Tab [F] 25 mg 1 tab(s), Oral, BID enalapril 10 mg Tab [F] 10 mg 1 tab(s), Oral, BID furosemide 10 mg/mL Inj 4 mL [F] 40 mg 4 mL, IV Push, BID glimepiride 2 mg Tab [F] 2 mg 1 tab(s), Oral, BID insulin lispro 100 units/mL (HUMALOG) 10 mL SubQ inj [F] 0-10 Unit(s), SubCutaneous, QIDACHS isosorbide mononitrate 60 mg ER Tab [F] 60 mg 1 tab(s), Oral, Daily lamoTRIgine 200 mg Tab [F] 200 mg 1 tab(s), Oral, Daily levothyroxine 100 mcg (0.1 mg) Tab [F] 100 mcg 1 tab(s), Oral, Daily levothyroxine 75 mcg (0.075 mg) Tab [F] 75 mcg 1 tab(s), Oral, Daily pantoprazole [address] Tab [F] 40 mg 1 tab(s), Oral, Daily tamsulosin 0.4 mg Cap [F] 0.4 mg 1 cap(s), Oral, Daily warfarin 4 mg Tab [F] 4 mg 1 tab(s), Oral, Once warfarin PHARMACY TO DOSE [F] Pharmacy to dose, Oral, As Directed Continuous: (0) PRN: (5) acetaminophen 325 mg Tab UD [F] 650 mg 2 tab(s), Oral, q6hr ALPRAZolam 0.25 mg Tab [F] 0.25 mg 1 tab(s), Oral, TID dextrose 50% IV Ayanna 50 mL Abboject [F] 50 mL, IV Push, Once ondansetron 2 mg/mL Inj [F] 4 mg 2 mL, IV Push, q6hr senna 8.6 mg Tab [F] 17.2 mg 2 tab(s), Oral, BID Problem list: All Problems Weakness generalized / 21833010 / Confirmed At risk for falls / 120285123 / 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 / 0202343177 / Confirmed Carotid artery stenosis / 520450177 / Confirmed Charcot's joint of foot due to diabetes / 863665111 / Confirmed Chronic anemia / 015437247 / Confirmed COPD without exacerbation / 409866043 / Confirmed Chronic systolic heart failure / [id number] / Confirmed Presence of combination internal cardiac defibrillator (ICD) and pacemaker / 6500428643 / Confirmed Contracture of ankle joint / 918201992 / Confirmed CAD (coronary artery disease) / 11445557 / Confirmed Bipolar I disorder, mild, current or most recent episode depressed, in full (more content not included)...[facility] HospitalComment on above:Result Comment: Electronically Signed By: Danna BROUSSARD, John.ricardo\Date and Time Signed: 03/03/24 14:51 [id number] NoteEchocardiology Procedure Exam Date/Time Accession # Ordering Dr. Lott Transthoracic w/ 03/03/2024 12:14 EDT [id number] Aden BROUSSARD, Paul Regalado Contrast CPT code C8929 Reason for Exam (Echo Transthoracic w/ Contrast) Congestive Heart Failure Report [address] [address] Adult Echocardiogram Report Name: JOSÉ LUIS FAULKNER Study Date: 03/03/2024 11:19 AM BP: 149/69 mmHg Patient Location: [address] [place] [address] Bed(s) [facility] HR: 55 : 1950 Gender: Male Height: 69.5 in Age: 73 yrs Ethnicity: [facility] Weight: 229 lb Reason For Study: Congestive Heart Failure BSA: 2.2 m2 History: High Cholesterol,HTN,Diabetes,SOB,CAD,Atrial Fibrillation,CABG,CHF,COPD,JASMIN,Stents,Obesi ty Ordering Physician: Diane^Fabricio Performed By: Daphnie Jimenez RDCS Interpretation Summary Mild inferior wall hypokinesis The left ventricle is mildly dilated. Ejection Fraction = 45-50%. The left atrium is mildly dilated. Pacer/Defibrillator wire noted in Right Ventricle. Procedure A complete two-dimensional transthoracic echocardiogram was performed using contrast (2D, M-mode, spectral and color flow Doppler). Study quality is fair. Left Ventricle The left ventricle is mildly dilated. Ejection Fraction = 45-50%. Mild inferior wall hypokinesis. Left Atrium The left atrium is mildly dilated. Right Atrium Echocardiology Report The right atrium is grossly normal. Right Ventricle The right ventricular systolic function is normal. Pacer/Defibrillator wire noted in Right Ventricle. Aortic Valve There is mild aortic valve thickening. Mitral Valve Mild thickening of the mitral valve leaflets. Tricuspid Valve The tricuspid valve is grossly normal. Pulmonic Valve The pulmonic valve is normal. Arteries The aortic root is normal in size. Venous The inferior vena cava is normal in size, and collapses normally with respiration. Effusion There is no pericardial effusion. There is no pleural effusion noted on this exam. MMode/2D Measurements & Calculations RVDd: 3.2 cm LVIDd: 5.6 cm FS: 23.0 % Ao root diam: 4.0 cm IVSd: 1.2 cm LVIDs: 4.3 cm EDV(Teich): 154.3 ml LVPWd: 1.2 cm ESV(Teich): 83.8 ml Ao root area: 12.5 cm2 EF(Teich): 45.7 % LA dimension: 4.0 cm asc Aorta Diam: 3.6 cm LVOT diam: 2.0 cm LVLd ap4: 10.7 cm EDV(MOD-sp2): 127.0 ml LVOT area: 3.1 cm2 EDV(MOD-sp4): 195.0 ml ESV(MOD-sp2): 60.1 ml LVLs ap4: 9.8 cm EF(MOD-sp2): 52.7 % ESV(MOD-sp4): 96.1 ml EF(MOD-sp4): 50.7 % SV(MOD-sp4): 98.9 ml RVIDd/LVIDd: 0.56 EF (MOD-bp): 52.6 % LA Vol Index: 37.5 ml/m2 Doppler Measurements & Calculations MV E max michelle: 77.1 cm/sec MV dec time: 0.23 sec Ao V2 max: 113.3 cm/sec LV V1 max P.3 mmHg MV A max michelle: 74.4 cm/sec Ao max P.1 mmHg LV V1 max: 75.9 cm/sec MV E/A: 1.0 Lat Peak E' Michelle: 7.4 cm/sec GERHARD(V,D): 2.1 cm2 E/E' Lat: 10.4 Med Peak E' Michelle: 5.1 cm/sec E/E' Med: 15.1 Echocardiology Report TR max michelle: 206.8 cm/sec RAP systole: 3.0 mmHg AV VR: 0.67 TR max P.1 mmHg RVSP(TR): 20.1 mmHg FINAL REPORT Dictated: 03/03/2024 11:19 am Felipa Milligan MD Signed (Electronic Signature): 03/03/2024 2:12 pm Signed by: Felipa Milligan MD Transcribed by: AR Technologist: Jazzy [facility]09-30-2024 Note Interdisciplinary Note - PT PT evaluation completed with [facility] of = services. Pt mod I with supine<>sit due to use of hand rails. CGA for sit<>stand with FWW due to reports of frequent LOB. Pt ambulated 8ftwith FWW and CGA. Once pt is DC, recommended to the patient and his family for outpatient for Parkinson's treatment to work on balance and fall prevention.[facility]09-30-2024 Note Progress Note - Pharmacy Pharmacy to Dose Warfarin Indication for warfarin therapy: Afib Target INR: 2-3 Ordering Provider: Aden Taking warfarin prior to admission: Yes Home Regimen: Sunday: 4mg Sunday: 4mg Sunday: 4mg Sunday: 4mg : 4mg Sunday: 4mg Sunday: 4mg Total Weekly Dose: 28mg INR values/Dose given: 03/02: INR 2.33 - 4mg 03/03: INR 2.04 Scheduled dose for today: 4mg Notes: 03/02: INR therapeutic. Patient follows with [facility] [place]. Will continue home regimentoday. Discharge Recommendations: tbBerto [facility]09-29-2024 NoteConsultation Note Patient: JOSÉ LUIS FAULKNER Age: 73 years Sex: Male : 1950 Associated Diagnoses: None Author: Raegan BROUSSARD, Feng Basic Information Cardiac consultation requested for evaluation for shortness of breath Chief Complaint 03/02/2024 12:30 EDT Shortness of breath 03/02/2024 8:08 EDT Patient presents with several days of SOB with hx of COPD. pt recently taken offO2 about 3 weeks ago. Solumedrol given per [facility] History of Present Illness Patient is known to our practice with known history of coronary artery disease, ischemic cardiomyopathy, congestive heart failure brought by family because of increasing weakness, fatigue, tiredness and increasing shortness of breath. He was evaluated in the emergency room with clinical picture consistent with mild heart failure. The patient denies chest pain. Patient report that his been unable to take care of himself with inability to stand or walk due to advanced Parkinson disease. The patient was evaluated in the emergency room with clinical picture consistent with mild heart failure. He denies chest pain. He describes some mild orthopnea and minor lower extremity edema Review of Systems Constitutional: Weakness, Fatigue. Eye: Negative. Ear/Nose/Mouth/Throat: Negative. Respiratory: Shortness of breath, Cough. Cardiovascular: Negative except as documented in history of present illness. Gastrointestinal: Negative. Genitourinary: Negative. Hematology/Lymphatics: Negative. Endocrine: Negative. Immunologic: Negative. Musculoskeletal: Weakness. Integumentary: Negative. Neurologic: Patient had Parkinson disease with difficulty with mobility gait and balance and tremor. All other systems are negative Health Status Allergies: Allergic Reactions (Selected) No Known Allergies Current medications: (Selected) Inpatient Medications Ordered Senokot 8.6 mg Tab: 17.2 mg = 2 tab(s), Tab, Oral, BID PRN Other (see comment), Routine, Start date03/02/24 11:20:00 EDT Zero Hour: Day of Tx Zero Hour: Day of Tx Zofran 4 mg/2 mL Injection: 4 mg = 2 mL, Injection, IV Push, q6hr PRN Nausea, Routine, Start date 03/02/24 11:20:00 EDT, 03/02/24 11:20:00 EDT furosemide 10 mg/mL Inj 4 mL: 40 mg = 4 mL, Injection, IV Push, BID, NOW, Start date 03/02/24 11:20:00 EDT, 03/02/24 11:20:00 EDT hydrALAZINE 20 mg/mL Inj: 10 mg = 0.5 mL, Injection, IV Push, Once, Stop date 03/02/24 11:16:00 EDT, STAT, Start date 03/02/24 11:16:00 EDT, 03/02/24 11:16:00 EDT Prescriptions Prescribed Aldactone 25 mg Tab: 25 mg = 1 tab(s), Oral, Daily, # 30 tab(s), Refills(s) 0, Pharmacy: [facility], 172.7, cm, 03/09/23 15:05:00 EDT, Height/Length Dosing, 104.5, kg, 03/09/23 15:05:00 EDT, Weight Dosing Coumadin 4 mg Tab: See Instructions, take 6mg on sunday, take 4m g all other days, # 96 tab(s), Refills(s) 1, Pharmacy: [facility], 172, cm, 10/31/23 14:00:00 EDT, Height/Length Dosing, 101.2, kg, 10/31/23 14:00:00 EDT, Weight Dosing DuoNeb 2.5 mg-0.5 mg/3 mL Soln-Inh: 3 mL, Inhalation, QID, 1 EA, Refill(s) 0, [facility], 172.7, cm, 03/09/23 15:05:00 EDT, Height/Length Dosing, 104.5, kg, 03/09/23 15:05:00 EDT, Weight Dosing alprazolam 0.25 mg Tab: 0.25 mg = 1 tab(s), Oral, TID, PRN anxiety, # 30 tab(s), Refills(s) 2, other reason (Rx) carvedilol 25 mg Tab: 25 mg = 1 tab(s), Oral, BID, # 120 tab(s), Refills(s) 0, Pharmacy: [facility] 1985, 172, cm, 07/17/21 14:15:00 EST, Height/Length Dosing, 113, kg, 07/17/21 14:15:00 EST, Weight Dosing cyanocobalamin 1000 mcg/mL Inj: 1,000 mcg = 1 mL, IntraMuscular, qMonth, syringes for B12 injections-3ml, 25 guage 1 inch quantity sufficient for injections., # 10 mL, Refills(s) 1, Pharmacy: [facility] 1985, 177, cm, 04/12/23 9:03:00 EST, Height/Length Dosing, 101.6, kg, 11/0... nebulizer machine: nebulizer machine, See Instructions, 1 EA, 0, please provide machine with supplies, Supply torsemide 20 mg Tab: See Instructions, 1 tab(s) Oral Daily and then addtional 1 tab oral daily as needed for Leg swelling or weight gain of 3 pounds, # 60 tab(s), Refills(s) 0, Pharmacy: [facility] 1985, 177, cm, 08/27/23 20:45:00 EDT, Height/Length Dosing, 100.6, k... Documented Medications Documented Co-Q10 100 mg oral capsule: 100 mg = 1 cap(s), Oral, Daily, Refills(s) 0 Eliquis 5 mg oral tablet: 5 mg = 1 tab(s), Oral, BID, Refills(s) 0 Humalog: See Instructions, 0-150 = no coverage 151-200 = 2 units 201-250 = 4 units 251-300 = 6 units 301-350 = 8 units 351-400 = 10 units with breakfast and lunch and dinner NO BEDTIME SCALE, Refills(s) 0 Lamictal 200 mg Tab: 200 mg = 1 tab(s), Oral, Daily, Refills(s) 0 Multivitamins and Minerals: 1 tablet, Oral, Daily, Prophylaxis Nitro 0.4 mg Tab: 1 tablet, SubLingual, q5min, PRN Chest pain, Chest pain NovoLIN N FlexPen 100 units/mL subcutaneous suspension: 20 unit(s), SubCutaneous, BID, Refills(s) [address] Tab: 40 m (more content not included)...[facility] HospitalComment on above:Result Comment: Electronically Signed By: Raegan BROUSSARD, Feng\.br\Date and Time Signed: 03/02/2416:47 [id number] NoteHistory and Physical Basic Information Admit Date/Time:03/02/2024 09:27 Chief Complaint Patient presents with several days of SOB with hx of COPD. pt recently taken off O2 about 3 weeks ago. Solumedrol given per [facility] History of Present Illness Mr. Hoffman presented to the hospital with complaint of shortness of breath. Onset was about 2 days ago. He noted associated cough. He denied fever and chills. He denied nausea or vomiting. He reported difficulty with completing adl since onset of his symptoms. In the ER the was found to have CHF exacerbation and wheezing and admitted for additional management. Review of Systems Constitutional: no fever, no chills, no sweats, no weakness Skin: no Jaundice, no rash, no lesions, nopetechiae ENMT: no ear pain, no sore throat, no congestion, no hoarseness Respiratory: moderate shortness of breath, no cough, no orthopnea, mild wheezing Cardiovascular: no chest pain, no palpitations, no edema Gastrointestinal: no nausea, no vomiting, no diarrhea, no GI bleeding Genitourinary: no dysuria, no hematuria, no discharge, no pain Musculoskeletal: no back pain, no trauma Neurologic: no headache, no dizziness, no numbness, no weakness Psychiatric: no sleeping problems, no irritability, no mood swings/depression. Heme/Lymph: no bleeding tendency, no bruising tendency, no petechiae, no swollen nodes Allergy/Immunologic: no seasonal allergies, no food allergies, no recurrent infections, no impairedimmunity Additional ROS info: Except as noted in the above Review of Systems and in the History of Present Illness all other systems have been reviewed and are negative or noncontributory. Scoring King Fall Risk Score: 70 High (03/02/24) Physical Exam Vitals & Measurements T: 36.9 ?C(Oral) HR: 59(Monitored) RR: 19 BP: 188/75 SpO2: 92% HT: 177 cm WT: 103 kg General: alert, no acute distress Skin: warm, dry Head: no trauma, normocephalic Neck: Trachea midline, no adenopathy, no tenderness Eye: normal conjunctiva, sclera clear ENMT: TM's clear, oral mucosa moist, no pharyngeal erythema or exudate Cardiovascular: regular rate and rhythm, normal peripheral perfusion Respiratory: Lungs expiratory wheezes, respirations non labored mild crackles on LL Base Chest wall: no deformity. Gastrointestinal: soft, non distended, no tenderness, no guarding. Back: No tenderness, Normal ROM, Normal alignment. Extremities: left sole diabetic foot ulcer Neurological: oriented x 4, LOC appropriate for age, CN II-XII intact, motor strength equal & normal bilaterally, sensation equal & normal bilaterally, speech normal Psychiatric: cooperative, affect appropriate for age, normal judgement, normal psychiatric thoughts. Lab Results WBC: 9.6 E9/L (03/02/24 08:19:00) RBC: 3.4 E12/L Low (03/02/24 08:19:00) HGB: 10.2 gm/dL Low (03/02/24 08:19:00) Hct: 30.2 % Low (03/02/24 08:19:00) MCV: 88.1 fL (03/02/24 08:19:00) MCH: 29.9 pg (03/02/24 08:19:00) MCHC: 33.9 gm/dL (03/02/24 08:19:00) RDW: 15.6 % High (03/02/24 08:19:00) Platelet: 319 E9/L (03/02/24 08:19:00) MPV: 6.3 fL Low (03/02/24 08:19:00) Neutro Auto: 72.7 % (03/02/24 08:19:00) Lymph Auto: 17.8 % (03/02/24 08:19:00) [place] Auto: 6.9 % (03/02/24 08:19:00) Eos Auto: 1.7 % (03/02/24 08:19:00) Basophil Auto: 0.9 % (03/02/24 08:19:00) Neutro Absolute: 7 E9/L (03/02/24 08:19:00) Lymph Absolute: 1.7 E9/L (03/02/24 08:19:00) [place] Absolute: 0.7 E9/L (03/02/24 08:19:00) Eos Absolute: 0.2 E9/L (03/02/24 08:19:00) Basophil Absolute: 0.1 E9/L (03/02/24 08:19:00) PT: 25.2 second(s) High (03/02/24 08:19:00) INR: 2.23 (03/02/24 08:19:00) PTT: 46 second(s) High (03/02/24 08:19:00) Glucose Lvl: 178 mg/dL (03/02/24 08:19:00) BUN: 18 mg/dL (03/02/24 08:19:00) Creatinine: 1.1 mg/dL (03/02/24 08:19:00) eGFR: 70 mL/min/1.73 m2 (03/02/24 08:19:00) BUN/Creat Ratio: 16 (03/02/24 08:19:00) Sodium Lvl: 139 mmol/L (03/02/24 08:19:00) Potassium Lvl: 4.2 mmol/L (03/02/24 08:19:00) Chloride: 103 mmol/L (03/02/24 08:19:00) CO2: 27 mmol/L (03/02/24 08:19:00) AGAP: 13 mEq/L (03/02/24 08:19:00) Calcium Lvl: 8.6 mg/dL Low (03/02/24 08:19:00) Lactic Acid Lvl: 1.1 mmol/L (03/02/24 08:19:00) Troponin HS: 26.4 pg/mL (03/02/24 09:25:00) BNP: 454 pg/mL High (03/02/24 08:19:00) UA Spec Desc: Clean Catch (03/02/24 09:24:00) UA Color: Light-Yellow (03/02/24 09:24:00) UA Clarity: Clear (03/02/24 09:24:00) UA Spec Grav: 1.015 (03/02/24 09:24:00) UA pH: 5.5 (03/02/24 09:24:00) UA Protein: 1+ Abnormal (03/02/24 09:24:00) UA Glucose: Trace Abnormal (03/02/24 09:24:00) UA Ketones: Negat (03/02/24 09:24:00) UA Bili: Negat (03/02/24 09:24:00) UA Blood: Negat (03/02/24 09:24:00) UA Nitrite: Negat (03/02/24 09:24:00) UA Urobilinogen: Negat (03/02/24 09:24:00) UA Leuk Est: Negat (03/02/24 09:24:00) UA RBC: 0-3 (03/02/24 09:24:00) UA WBC: 0-5 (03/02/24 09:24:00) UA Mucous: Trace (03/02/24 09:24:00) Rapid COVID Ag: Not Detected ( (more content not included)...[facility] HospitalComment on above:Result Comment: Electronically Signed By: Aden BROUSSARD, Paul Siddiqibr\Date and Time Signed: 03/02/24 11:49 [id number] NoteHistory and Physical Patient: JOSÉ LUIS FAULKNER Age: 73 years Sex: Male : 1950 Associated Diagnoses: None Author: January Wells Patient is seen today for their interval coumadin assessment in the [facility]. He is on Coumadin for PAF. He also has a pmhx Generalized anxiety disorder -History of bladder cancer- Hyperlipidemia- unspecified Hypertension- Hypothyroid- JASMIN (obstructive sleep apnea) -PAF (paroxysmal atrial fib rillation). Pt is followed by . Denies any melena, hematochezia, hematuria, gingival bleeding, hematoma's or prolonged epistaxis. We discussed the patient's coumadin therapy today. --Indication: PAF --Current coumadin pill being used: as above --Current dose of coumadin: as above --Side effects / complications of coumadin: Denies any problems with the use of coumadin -- denies any gum bleeds, nose bleeds, easy bruising, or other sequelae of coumadin toxicity. --Medication changes since last visit: none --OTC meds / herbal meds used since the last visit: none --Any change in diet since last visits, including vitamin-K rich foods: none --Compliance: no missed doses We also reviewed the patient's risk factors for bleeding using the Outpatient Bleeding Risk Index: 1. 65yo or older: yes 2. Hx of GI tract bleeding: no 3. Hx of stroke: yes 4. Serious co-morbid conditions (recent DE, anemia with Hct <30%, CRI with SCr > 1.5, DM): yes Score = 3/4 Risk (low = 0, mod = 1-2, high = 3-4): Health Status Allergies: Allergic Reactions (Selected) No Known Allergies, Allergies (1) Active Severity Reaction No Known Allergies None Documented Current medications: (Selected) Inpatient Medications Ordered Zero Hour: Day of Tx Zero Hour: Day of Tx Prescriptions Prescribed Aldactone 25 mg Tab: 25 mg = 1 tab(s), Oral, Daily, # 30 tab(s), Refills(s) 0, Pharmacy: [facility], 172.7, cm, 03/09/23 15:05:00 EDT, Height/Length Dosing, 104.5, kg, 03/09/23 15:05:00 EDT, Weight Dosing Coumadin 4 mg Tab: See Instructions, take 6mg on sunday, take 4m g all other days, # 96 tab(s), Refills(s) 1, Pharmacy: [facility] 1985, 172, cm, 10/31/23 14:00:00 EDT, Height/Length Dosing, 101.2, kg, 10/31/23 14:00:00 EDT, Weight Dosing DuoNeb 2.5 mg-0.5 mg/3 mL Soln-Inh: 3 mL, Inhalation, QID, 1 EA, Refill(s) 0, [facility] 1985, 172.7, cm, 03/09/23 15:05:00 EDT, Height/Length Dosing, 104.5, kg, 03/09/23 15:05:00 EDT, Weight Dosing alprazolam 0.25 mg Tab: 0.25 mg = 1 tab(s), Oral, TID, PRN anxiety, # 30 tab(s), Refills(s) 2, other reason (Rx) carvedilol 25 mg Tab: 25 mg = 1 tab(s), Oral, BID, # 120 tab(s), Refills(s) 0, Pharmacy: [facility] 1985, 172, cm, 07/17/21 14:15:00 EST, Height/Length Dosing, 113, kg, 07/17/21 14:15:00 EST, Weight Dosing cyanocobalamin 1000 mcg/mL Inj: 1,000 mcg = 1 mL, IntraMuscular, qMonth, syringes for B12 injections-3ml, 25 guage 1 inch quantity sufficient for injections., # 10 mL, Refills(s) 1, Pharmacy: [facility] 1985, 177, cm, 04/12/23 9:03:00 EST, Height/Length Dosing, 101.6, kg, 11... doxycycline hyclate 100 mg Tab: 100 mg = 1 tab(s), Oral, BID, Take 1 tablet the day before procedure and 1 tablet after procedure, # 2 tab(s), Refills(s) 0, Pharmacy: [facility] 1985, 172, cm, 12/05/23 10:16:00 EDT, Height/Length Dosing, 107.6, kg, 12/05/23 10:16:00 EDT, Weigh... nebulizer machine: nebulizer machine, See Instructions, 1 EA, 0, please provide machine with supplies, Supply torsemide 20 mg Tab: See Instructions, 1 tab(s) Oral Daily and then addtional 1 tab oral daily as needed for Leg swelling or weight gain of 3 pounds, # 60 tab(s), Refills(s) 0, Pharmacy: [facility], 177, cm, 08/27/23 20:45:00 EDT, Height/Length Dosing, 100.6, k... Documented Medications Documented Co-Q10 100 mg oral capsule: 100 mg = 1 cap(s), Oral, Daily, Refills(s) 0 Eliquis 5 mg oral tablet: 5 mg = 1 tab(s), Oral, BID, Refills(s) 0 Humalog: See Instructions, 0-150 = no coverage 151-200 = 2 units 201-250 = 4 units 251-300 = 6 units 301-350 = 8 units 351-400 = 10 units with breakfast and lunch and dinner NO BEDTIME SCALE, Refills(s) 0 Lamictal 200 mg Tab: 200 mg = 1 tab(s), Oral, Daily, Refills(s) 0 Multivitamins and Minerals: 1 tablet, Oral, Daily, Prophylaxis Nitro 0.4 mg Tab: 1 tablet, SubLingual, q5min, PRN Chest pain, Chest pain NovoLIN N FlexPen 100 units/mL subcutaneous suspension: 20 unit(s), SubCutaneous, BID, Refills(s) [address] Tab: 40 mg = 1 tab(s), Oral, Daily, Refills(s) 0 Pro-Air HFA CFC free 90 mcg/inh MDI: 2 puff(s), Inhalation, q4hr Shortness of breath or wheezing, Refill(s) 0 Vitamin D3 1000 intl units oral tablet: 25 mcg = 1 tab(s), Oral, Daily, Refills(s) 0 acetaminophen 325 mg Tab: 650 mg = 2 tab(s), Oral, q6hr, PRN Pain, Refills(s) 0, Pain amiodarone: 200 mg, Oral, Daily, Refills(s) 0 amoxicillin 500 mg Cap: 500 mg = 1 cap(s), Oral, BID, Dr. Bl (more content not included)...[facility] HospitalComment on above:Result Comment: Electronically Signed By: January Wells\.ricardo\Date and Time Signed: 02/22/24 14:04 [id number] Hospital Discharge instructions Patient Education 02/05/2024 11:34:36 EU - Cystoscopy Discharge Instructions (CUSTOM) Cystoscopy [...] fever over 100 degrees. Follow Up Care 12/11/2023 11:19:44 With:Andi WARE Address: [address] [place] [address] Business (1) When: Unknown Comments:Office will call to schedule follow up [facility] 09-03-2024 NotePatient Education Custom Cystoscopy ? Voiding after the procedure: there may be some pain, burning, urgency, frequency and blood tingedurine following the procedure. These symptoms usually resolve within 2-5 days. Drink the amount of fluid it takes to keep the urine pink to yellow or clear in color. Drinking enough water and fluids will help to ease any discomfort after your procedure. ? If you are having problems that seem out of the ordinary, please call. ? If unable to contact your physician and you feel it is an emergency, go to the nearest emergency room or call 911 ? Diet ? you may resume your normal diet. ? Activity ? you may resume your normal activities ? Call if you have a fever over 100 degrees.[facility] 01-29-2024 NoteDuplicate appointment AUTHENTICATED BY YE LOBO ON 01/29/2024 11:40:26[facility] 01-29-2024 History of Present illness Narrative* Ye Lobo MD - 01/29/2024 11:39 AM EDT Duplicate appointment documented in this [id number] NoteVideo Visit [facility] [id number] Video Visit [facility] 01/29/2024 Ye Lobo MD Provider Location: [facility] Patient Location Slide Maker: None Patient Location: Patient's Home Patient: José Luis Gil Date of : 1950 (73 y.o. male) PCP: Mona Baker MD Video Visit Consent Statement: I discussed risks, benefits and alternatives of a video visit telemedicine consultation with the patient (and any accompanying persons) including the risks that the patient's personal health details and medical records will be discussed over real-time, synchronous, interactive video/audio/telecommunication technology, the visit will not be recorded without the express consent of both the provider and the patient, and that there are inherent diagnostic limitations compared to fptr-db-okys evaluations. We elected to proceed with the video visit telemedicine consultation. Interval History: Patient seen in presence of her daughter. Daughter reports patient is doing well and she has no complaints or concerns to report. His sugar control and blood pressure is good. He denies having any falls. Patient's mood has been stable. Patient denies any irritability or pervasive sadness. He denies any ongoing racing thoughts or flight of ideas. Sleep quality and quantity is fair. Appetite is within normal limits. Patient denies any feelings of hopelessness. Denies any ongoing suicidal ideation. Needs some assistance with his ADLs. Anxiety control has been fair. Minimal tremor reported. 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 Patient has been compliant. We will continue the current plan. Goals and objectives of treatment: Maintain mood stability Maintain good anxiety control Continue [...] Endocrine: Negative. Genitourinary: Negative. Allergic/Immunologic: Negative. Neurological: Mild tremor of her right extremity Hematological: Negative. AIMS exam completed: No abnormal involuntary movements noted PSYCHIATRIC EXAM: General Behavior: Cooperative Speech: Normal rate and tone Flow to Thought: Denies any ongoing racing thoughts or flight of ideas Thought Associations: Intact Content of Thought: Denies any SI or HI Mood: Good Affect: Appropriate and full range Insight: fair Judgment: fair Orientation: alert and oriented to person, place, time Memory: Recent intact Attention: Fair Concentration: Fair Language: Average Fund of Knowledge: Average Labs/ Diagnostic Imaging reviewed: None ASSESSMENT AND PLAN: Follow-up plan was discussed with patient. Impression/ Plan: Bipolar disorder type I, manic, mild in full remission Generalized anxiety disorder Diabetes type [...] None Ye Lobo MD AUTHENTICATED BY YE LOBO ON 01/29/2024 11:45:55[facility] 01-29-2024 History of Present illness Narrative* Ye Lobo MD - 01/29/2024 11:31 AM EDT Video Visit [facility] [id number] Video Visit [facility] 01/29/2024 Ye Lobo MD Provider Location: [facility] Patient Location Slide Maker: None Patient Location: Patient's Home Patient: José Luis Gil Date of : 1950 (73 y.o. male) PCP: Mona Baker MD Video Visit Consent Statement: I discussed risks, benefits and alternatives of a video visit telemedicine consultation with the patient (and any accompanying persons) including the risks that the patient s personal health details and medical records will be discussed over real-time, synchronous, interactive video/audio/telecommunication technology, the visit will not be recorded without the express consent of both the provider and the patient, and that there are inherent diagnostic limitations compared to fyfn-nl-sbhl evaluations. We elected to proceed with the video visit telemedicine consultation. Interval History: Patient seen in presence of her daughter. Daughter reports patient is doing well and she has no complaints or concerns to report. His sugar control and blood pressure is good. He denies having any falls. Patient's mood has been stable. Patient denies any irritability or pervasive sadness. He denies anyongoing racing thoughts or flight of ideas. Sleep quality and quantity is fair. Appetite is within normal limits. Patient denies any feelings of hopelessness. Denies any ongoing suicidal ideation. Needs some assistance with his ADLs. Anxiety control has been fair. Minimal tremor reported. 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 Patient has been compliant. We will continue the current plan. Goals and objectives of treatment: Maintain mood stability Maintain good anxiety control Continue [...] Endocrine: Negative. Genitourinary: Negative. Allergic/Immunologic: Negative. Neurological: Mild tremor of her right extremity Hematological: Negative. AIMS exam completed: No abnormal involuntary movements noted PSYCHIATRIC EXAM: General Behavior: Cooperative Speech: Normal rate and tone Flow to Thought: Denies any ongoing racing thoughts or flight of ideas Thought Associations: Intact Content of Thought: Denies any SI or HI Mood: Good Affect: Appropriate and full range Insight: fair Judgment: fair Orientation: alert and oriented to person, place, time Memory: Recent intact Attention: Fair Concentration: Fair Language: Average Fund of Knowledge: Average Labs/ Diagnostic Imaging reviewed: None ASSESSMENT AND PLAN: Follow-up plan was discussed with patient. Impression/ Plan: Bipolar disorder type I, manic, mild in full remission Generalized anxiety disorder Diabetes type [...] None Ye Lobo MD documented in this [id number] Hospital Discharge instructions Follow Up Care 12/05/2023 10:49:04 With:Caterina BROUSSARD, Nicolás Chavez, PUL, AYAH Address: [address] [place] [address] [facility] ([facility] [place] [id number]- When: Unknown Comments:after his testing is completed [facility] 05-28-2024 NoteBEHAVIORAL HEALTH PSYCHIATRIC PROGRESS NOTE Patient is here [...] None Ye Lobo MD AUTHENTICATED BY YE LOBO ON 10/30/2023 11:28:45[facility] 10-30-2023 History of Present illness Narrative* Ye Lobo MD - 10/30/2023 11:21 AM EDT BEHAVIORAL HEALTH PSYCHIATRIC PROGRESS NOTE Patient is [...] None Ye Lobo MD documented in this [id number] Hospital Discharge instructions Follow Up Care 10/25/2023 09:24:55 With:Caterina BROUSSARD, Nicolás Chavez, PUL, AYAH Address: [address] [place] [address] Pul[facility] Clinic ([facility] [place] [id number]- When: Unknown Comments:after his testing is completed [facility]05-15-2024 History of Present illness Narrative* Felipa Milligan MD - 10/17/2023 10:40 AM EDT Subjective José Luis Gil is a 72 y.o. male Chief Complaint Follow-up HPI Patient is in the office for follow-up for the problems noted below. He has had no cardiac events since his last visit but was admitted to [facility] in August 2023 for symptoms of dyspnea. We were not consulted during the admission. His records were reviewed and the patient apparently at the timehad advanced kidney disease but was not seen by nephrology. There was no adjustment of cardiac medic ations made. He is presently without any symptoms [...] mouth 3 times a day as needed., Disp:, Rfl: amiodarone (Pacerone) 200 mg tablet, Take [...] Chew 2 tablets once daily., Disp:, Rfl: tamsulosin (Flomax) 0.4 mg 24 hr [...] 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 Follow Up In [...] 2 diabetes mellitus without complication, unspecified whether mcc insulin use (Multi) 12. Class 1 obesity [...] my direction and personally dictated by me. Ihave reviewed the chart and agree that the record accurately reflects my personal performance of the history, physical exam, discussion and plan. documented in this [facility] Work Phone: 1(562) 596-405305-15-2024 Instructions* Patient Instructions* Maria Del Carmen Campbell LPN - 10/17/2023 [...] at night INR 5 days later at [facility] Start coumadin 2 days before running out of Eliquis. Follow up 6 months BMI was above normal measurement. Current weight: 102 kg (225 lb) Weight change since last visit (-) denotes wt loss -6.2 lbs Weight loss needed to achieve BMI 25: 51.1 Lbs Weight loss needed to achieve BMI 30: 16.4 Lbs Provided instructions on dietary changes. [facility] Work Phone: 1(485) 708-226204-04-2024 [facility] Evaluation + Plan noteExtracted from: Title:Discharge Note Author:JOSE BROUSSARD, Olaf James ate:08/29/23 Stable. Home. Discharge Diet(s): Calorie Controlled- [...] Felipa Milligan Within 2 to 4 weeks [facility] [address] [place] [address]- Business (1) Additional Instructions: Call for followup appointment Mona Baker Within 5 to [address] [place] [address]- Business (1) Additional Instructions: Call for followup appointment Hypertension, Adult Acute Kidney Injury, Adult Extracted from: Title:APSO Note Author:JOSE BROUSSARD, Mbanefo Date: 72-year-old male with histor y of coronary artery disease, chronic systolic congestive heart failure status post AICD placement, Parkinson's disease, COPD, bipolar disorder, paroxysmal atrial fibrillation, hypertension, chronic kidney disease, chronic osteomyelitis of the foot secondary to diabetes mellitus/Charcot Jane syndrome, history of bladder cancer presented with [...] Ordered: Hospital Discharge Day > 30 Min 31915 2. Dyspnea (R06.00: Dyspnea, unspecified) Related to generalized weakness. Resolved. Ordered: Hospital Discharge Day > 30 Min 38754 3. Hypertension (I10: Essential (primary) hypertension) Blood pressure well-controlled. Continue on Coreg, isosorbide. Enalapril on hold.-May resume at discharge. Ordered: Hospital Discharge Day > 30 Min 63046 4. PAF (paroxysmal atrial fibrillation) (I48.0: Paroxysmal atrial fibrillation) Rate controlled. Continue on amiodarone, Coreg and Eliquis. Ordered: 5. Chronic systolic heart failure (I50.22: Chronic systolic (congestive) heart failure) Clinically stable. Continue on isosorbide. May resume Aldactone and Bumex at discharge. Ordered: Hospital Discharge Day > 30 Min 58807 6. CAD (coronary artery disease) (I25.10: Atherosclerotic heart disease of k[place] coronary artery without angina pectoris) Status post [...] deep vein thrombosis (DVT) prophylaxis (Z79.899: Other intermodal dispatcher (current) drug therapy) Eliquis. Disposition: Home today. Discharge time greater than 30 minutes Orders: Basic Metabolic Panel eGFR Extra Lav Tube Extracted from: Title:APSO Note Author:JOSE BROUSSARD, Jonoanefo Date: 72-year-old male with histor y of coronary artery disease, chronic systolic congestive heart failure status post AICD placement, Parkinson's disease, COPD, bipolar disorder, paroxysmal atrial fibrillation, hypertension, chronic kidney disease, chronic osteomyelitis of the foot secondary to diabetes mellitus/Charcot Jane syndrome, history of bladder cancer presented with [...] with IV fluid. Renal ultrasound pending. Ordered: [facility] Care/Day Moderate 35 Minutes 62600 2. Dyspnea (R06.00: Dyspnea, unspecified) Related to generalized weakness. Improved. Ordered: [facility] Care/Day Moderate 35 Minutes 69063 3. Hypertension (I10: Essential (primary) hypertension) Blood pressure well-controlled. Continue on Coreg, isosorbide. Enalapril on hold. Ordered: [facility] Care/Day Moderate 35 Minutes 54343 4. PAF (paroxysmal atrial fibrillation) (I48.0: Paroxysmal atrial fibrillation) Rate controlled. Continue on amiodarone, Coreg and Eliquis. Ordered: [facility] Care/Day Moderate 35 Minutes 05250 5. Chronic systolic heart failure (I50.22: Chronic systolic (congestive) heart failure) Clinically dry. Continue on isosorbide. Aldactone on hold. Bumex on hold. Ordered: [facility] Care/Day Moderate 35 Minutes 94219 6. CAD (coronary artery disease) (I25.10: Atherosclerotic heart disease of [place] coronary artery without angina pectoris) Status post [...] deep vein thrombosis (DVT) prophylaxis (Z79.899: Other mcc (current) drug therapy) Eliquis. Disposition: Hopefully home in a.m after adequate hydration and improvement in renal functions. I discussed the diagnosis and plan of care with the patient at the bedside. Moderate level of MDM based on addressing above issues. This documentation was transcribed using voice recognition software. Several attempts were made to ensure accuracy. However inadvertent computerized associate programmer analyst errors may be present. Olaf Sinclair. Hospitalist. [...] artery disease) (I25.10: Atherosclerotic heart disease of k[place] coronary artery without angina pectoris) With hx [...] of automatic (implantable) cardiac defibrillator) Addendum by Erik BROUSSARD, Romel agee on August 28, 2023 04:55:50 EDT Bladder scan 665cc. Suazo ordered. Patient reports issues with retention in the past. Has needed a Suazo before. Extracted from: Title:ED Note Author:rakeshfozia GREER Gurinderhenrry Monroy Date :08/27/23 LAWANDA (acute kidney injury) (N [...] Therapy PT & PTT Rapid COVID Antigen ([facility] Saline Lock Insert Troponin 0 Hr. Troponin 3 Hr. Troponin 6 Hr. Troponin 9 Hr. XR Chest Single View Future Appointments Appointment Date:10/11/2023 02:15:00 PM Scheduled Provider:Armani Yarbrough DO Location:[facility].ONCOLOGY Appointment Type:ONC Office Visit 30 ([facility]) Appointment Date:10/22/2023 10:30:00 AM Scheduled [facility] Appointment Type:Pulmonary Follow Up ([facility]) [...] 04/09/23 * MRI Brain w/o Contrast 03/15/23 [facility]03-27-2024 Hospital Discharge instructions Patient Education 08/29/2023 11:38:59 [...] follow-up visits. This is important. Medicines Take mikm-ybk-aegyseu and prescription medicines only as told by [...] provider. Document Revised: 03/28/2022 Document Reviewed: 03/28/2022 [employer] Patient Education 2022 [employer]. 08/29/2023 11:38:50 Acute Kidney Injury, Adult Acute [...] Follow these instructions at home: Medicines Take qwlt-iwn-ucpkwrq and prescription medicines only as told by [...] follow-up visits. Where to find more information [employer] Patients: www.aakp.org National Kidney Foundation: www.kidney.org [employer]: www.akfinc.org Medical Education Christine: ?[employer]: www.lifeoptions.org ?[employer]idney [employer]: www.kidneyschool.org Contact a health care provider if: Your symptoms get worse. You have new symptoms such as: ?Headaches. ?Skin that is darker or town clerk than normal. ?Easy bruising. ?Itchiness. ?Hiccups. ?Lack [...] provider. Document Revised: 08/28/2022 Document Reviewed: 03/30/2020 [employer] Patient Education 2022 [employer]. Follow Up Care 08/27/2023 20:36:44 With:Felipa Milligan Address: [facility] [address] [place] [address]- Business (1) When:2 to 4 weeks Comments:Call for followup appointment With:Mona Baker Address: [place] [address]- Business (1) When:5 to 7 days Comments:Call for followup appointment [facility]03-27-2024 NoteTrihealth Bethesda Butler HospitalComment on above:Result Comment: Electronically Signed By: OJUKOlaf SUAREZ MD\.br\Date and Time Signed: 08/29/23 13:22 [id number] CeTri[facility] Comment on above:Result Comment: Electronically Signed By: Rosi Valencia MD\.br\Date and Time Signed: 08/28/23 04:56 [id number] Hospital Discharge instructions Patient Education 07/17/2023 09:56:47 [...] WARE Address: [facility] [address] [address], [facility] [place] [address] [facility] (1) When: Unknown Comments:Office will call to schedule follow up [facility]02-13-2024 Note [id number] [facility] 07-16-2023 Evaluation note* Encounter Date Diagnosis Assessment Notes [...] quite some time. 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 Told patient to hold off on imodium while this test is going to be done. [employer] Other [id number] Hospital Discharge instructions Follow Up Care 04/12/2023 09:57:26 With:Armani Yarbrough DO, ONC Address: [facility] [place] [address]- [phone] Fax Business (1) When: Unknown Comments:plan iv iron. 2 or 3 doses.f/u in 1 year.epo cbc, cmp iron studies every three months. [facility]11-01-2023 History of Present illness Narrative* Felipa Milligan [...] 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 Follow Up In [...] Obstructive sleep apnea, [facility] Work Phone: 1(309) 165-688111-01-2023 Instructions* Patient Instructions* Maria Del Carmen Campbell [...] Follow up 6 months [facility] Work Phone: 1(733) 188-949410-27-2023 Hospital Discharge instructions Follow Up Care 03/30/2023 14:59:20 With:Armani Yarbrough Address: [facility] [address] [place] [phone]- [phone] Fax Business (1) When: Unknown Comments:iron studies epo. retic count, spep sflc, simmunfIXATION, mma in 3 months. f/u in 6 months cbc, cmp, iron studies prior . start iron every other day orally. b12 shot monthly, can be at home. [facility]10-25-2023 Evaluation note* Encounter Date Diagnosis Assessment Notes Treatment Notes Treatment Clinical Notes Mar, Osteomyelitis of ankle and foot (ICD-10 - M86.9) [employer] Other 10-23-2023 History of Present illness Narrative* Jackie Mcginnis MD - 03/26/2023 1:30 PM EDT Subjective José Luis Gil is a right handed 72 y.o. year old male who presents with Parkinson's Disease. Patient is accompanied by: child daughter Visit type: follow up visit HPI Since last visit he was admitted to [facility] for CHF, during that time had an episode of transient L side of weakness/numbness. He has CT scan as well as CTA and carotid ultrasounds etc. He is due to have an MRI of the brain. He is on Asa 81 mg daily. He has now been seeing a Industrial Controller as well. Prior hx: R handed male w bipolar disorder (on Abilify x12 years). He had tremor >10 years, and was previously diagnosed with Parkinson's disease vs drug-induced parkinsonism by Dr. Zac Martinez in 2021 and was started on carbidopa/levodopa. DaTscan in August was read as negative for parkinsonian syn drome ( He is accompanied by his daughter Zackary who is an RN) PD medication regimen: [...] for treating the symptoms of Parkinson's Disease, carmen the patient's clinical state.: On Is the [...] up , has out patient MRI brain pen ding. His parkinsonism appears stable. Has had cognitive [...] 3. Please send records from the memory test/workers compensation claims analyst. 4. RTC in 6 months [facility] Work Phone: 1([phone]) 522-505610-23-2023 Instructions* Patient Instructions* Jackie Mcginnis MD - 03/26/2023 1:30 PM EDT It was nice to see you today. Plan: Continue current dose of carbidopa/levodopa 25/100 - one and half tab 4 times a day Try to exercise as much as you can Please send records from the memory test/workers compensation claims analyst. RTC in 6 months [facility] Work Phone: 1([phone]) 180-533410-23-2023 NoteUnc Health Wayneer [facility] HospitalComment on above:Result Comment: Electronically Signed By: Arabella MENDIETA, Angelina Avendaño\.br\Date and Time Signed: 03/19/23 19:54 EDT\.br\Electronically Co-Signed By: Delvin SANTANA MD\.br\Date and Time Co-Signed: 03/26/23 07:00 [id number] History of Present illness Narrative* MONO Donaldson - 03/20/2023 8:45 AM EDT Interval history since last appointment: Any visits to primary care provider? Yes Any visits to the emergency department/hospital? Yes, was in hospital for 4 days Any medication changes? Yes- torsemide increase to 40 mg, added spirolactimone 25 mg, added aspirin, added B12 Any falls? No Family present: patient, , daughter Zackary Educational Materials reviewed/provided at visit: Memory/Cognitive Ability Alzheimer's Association info/hotline 10 Tips to Keeping Independent Memory Tips (mild) 5Ms Dealing with Dementia 10 Ways to Love Your Brain Exercise/Activities Exercise Age Page Communication/Behaviors Communication - All Stages Communication Tips Redirecting Community Programs Papa Pals Diet Healthy Nutrition for Older Adults - [place] Injury Prevention/Home Safety [place] Home Safety Checklist [facility] Mobility for Adults Falls Prevention Conversation Guide for Caregivers Medications Medication Safety/Dispensers Sleep Getting a Good Night's Sleep ([facility]) Sleep Hygiene Personal Care Personal Care Tips Bathing Tips * Keisha Brambila APRN - FURNITURE SANDER - 03/20/2023 8:45 AM EDT [facility] [address] [address] Dept: [phone] Dept Loc: [phone] Visit type: [facility] Family Summary Conference Patient [...] [facility] If the patient is a minor, permission [...] through following means: Alzheimer's Association support and Lenin pals Reviewed advanced care plan. Already has POAs completed Educational information and handouts on the above was provided to the caregiver. Follow up in about 3 months (around 06/20/2023) for virtual visit. Cristo Faulkner is a 72 y.o. male who returns today for a Family Summary Conference to review the care plan based on the comprehensive geriatric assessment completed at the last appointment. Initially seen in 02/2023 for memory loss x 3-4 years, previous dementia diagnosis, Daniels 19 (MIS 10), CDT 5, PHQ 1. [...] in the evening. Take with meals. Coenzyme E96-Rwjfxvy E (CoQ10 ST-100) 100-100 MG-UNIT capsule Take [...] History: Diagnosis Date LAWANDA (acute kidney injury) (HCC) Allergies Anemia Anxiety Arthritis Asthma Atrial fibrillation [...] found for: FOLATE No results found for: KPDHHIEG27 No results found for: RPR Imaging: head CT reviewed Testing: I reviewed the [place] CognitiveAssessment from the initial assessment with the [...] care for the patient documented in this [facility]10-10-2023 Hospital Discharge instructions Follow Up Care 03/13/2023 15:59:25 With:Caterina BROUSSARD, Nicolás Chavez, PUL, AYAH Address: When:6 months [facility]10-07-2023 NoteFishMercy Medical CenterComment on above:Result Comment: Electronically Signed By: Gissel HINDS DO\.br\Date and Time Signed: 03/10/23 00:24 [id number] NoteMr. 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 Activities: rides scooter outside, visits grandson/family, watches tv/movies/sports, goes to car shows with cousin Exercise: none Finances: has adequate savings, gets Social Security income, [facility] Power of Snowmaker: Yes: spouse- Alicia, then daughter Zackary Financial Power of Snowmaker: Yes: spouse- Alicia, then daughter Zackary Living Will: Yes Guardian: No Code Status: Full Code Primary Caregiver: daughter Zackary Current care plan/supervision: family is with patient [...] Diet Healthy Nutrition for Older Adults - [facility] Injury Prevention/Home Safety [facility] Home Safety Checklist [facility] Mobility for Adults Falls Prevention Conversation Guide for Caregivers Medications Medication Safety/Dispensers Sleep Getting a Good Night's Sleep ([facility]) Sleep Hygiene Personal Care Personal Care Tips Bathing Tips * Keisha Brambila APRN - FURNITURE SANDER - 02/20/2023 1:45 PM EDT Images from the original note were not included. [facility] [address] [address] Dept: [phone] Dept Loc: [phone] Visit type: [facility] Initial Assessment Visit Date: [...] burden. Will discuss in more detail at [facility] with pt and family. Follow up in about 4 weeks (around 03/20/2023) for virtual summary visit. Subjective HPI: José Luis Faulkner is a 72 y.o. male who presents to the [facility] for a comprehensive geriatric [...] (MSSA), CHF, urinary retention, previous LAWANDA, h/o DE, bladder cancer- stage 0, chronic diarrhea Pt [...] concerns and functional deficits. Call to daughter Zackary today. Short term memory loss: Examples of [...] was referred to a stroke doctor in [place] but doesn't want to go history of [...] GENE Reviewed progress notes completed by DOUGLAS (SAMANTHA)and social work. Allergies Allergen Reactions Piperacillin-Tazobactam In [...] in the evening. Take with meals. Coenzyme V16-Jnxpxbp E (CoQ10 ST-100) 100-100 MG-UNIT capsule Take [...] History: Diagnosis Date LAWANDA (acute kidney injury) (CMS/HCC) (HCC) Allergies Anemia Anxiety Arthritis Asthma Atrial fibrillation and flutter (HCC) Bipolar 1 disorder (HCC) Bladder cancer (HCC) CHF (congestive heart failure) (CMS/HCC) (HCC) COPD (chronic obstructive pulmonary disease) (HCC) [...] found for: FOLATE No results found for: SYLMVRWG55 No results found for: RPR Testing: The following tests were performed at today's visit and scanned in to the chart: MoCA score: 19, MIS score: 10 Clock drawing score: 5 PHQ-9 score: 1 YARELIS score: not done I independently reviewed the Adolph Cognitive Assessment from 02/21/2023. Test scanned in [...] appropriate exam and/or evaluation documented in this [facility]09-19-2023 Instructions* Patient Instructions* BALTAZAR Bae CNP - [...] via phone or MyChart. documented in this [facility]09-15-2023 Telephone encounter Note* Telephone Encounter - Ida Mosher - 02/16/2023 5:18 PM EDT Scheduled 02/20/2023. [facility] [id number] Miscellaneous Notes* Telephone Encounter - Ida Mosher - 02/16/2023 5:18 PM EDT Scheduled 02/20/2023. * Telephone Encounter - Michelle Blackmon - 02/15/2023 11:35 AM EDT Name of Caller: Zackary Contact Reason for Appointment: New Patient Office Name: Senior Services Medication Refills need, if any: na Medication Name: Na documented in this [facility]09-14-2023 Telephone encounter Note* Telephone Encounter - Michelle Blackmon - 02/15/2023 11:35 AM EDT Name of Caller: Zackary Contact Reason for Appointment: New Patient Office Name: Senior Services Medication Refills need, if any: na Medication Name: Na [facility] [id number] Hospital Discharge instructions Patient Education 01/16/2023 10:37:42 [...] Address: [facility] [address], [place] [address]- Business (1) When: Unknown Comments:Office will call to schedule follow up [facility]08-14-2023 Evaluation note* Encounter Date Diagnosis Assessment Notes Treatment Notes Treatment Clinical Notes Jan, Osteomyelitis of ankle and foot (ICD-10 - M86.9) Once daily amoxicillin refilled. Probiotic refilled. No changes. Doing well clinically. Jan, Charcot foot due to diabetes mellitus (ICD-10 - E11.610) Jan, Chronic antibiotic suppression (ICD-10 - Z79.2) [employer] Other 05-30-2023 Hospital Discharge instructions Patient Education [...] WARE Address: [facility] [address] [place] [address]- Business (1) When:01/31/2023 11:00:22 Comments:For next cystoscopy in 3 months [facility]04-20-2023 Hospital Discharge instructions Patient Education 09/21/2022 16:03:12 [...] if anything looks unusual. Men with a kaysca-agab-itbszq risk for skin cancer may want to see a networking specialist (dining room attendant cafeteria) for an annual body check. What are the benefits of screening? Cancer screening is done to look for cancer in the very early stages, before it spreads and becomesharder to treat and before you would start to notice symptoms. Finding cancer early improves the chances of successful treatment. It may save your life. Where to find more information [place] Cancer Society: www.cancer.org Centers for Disease Control and Prevention: www.cdc.gov National Cancer Christine: www.cancer.gov Contact a health care provider if: [...] provider. Document Revised: 10/17/2021 Document Reviewed: 04/16/2020 Elsevier Patient Education 2023 [employer]is microcaps. Follow Up Care 08/23/2022 10:38:51 With:CHAZ BROUSSARD, nAdi Caputo, URL Address: [facility] [address], [place] [address]- When: Unknown [facility] Hospital Discharge instructions Patient Education 08/23/2022 [...] pressure to the area. General instructions Take idnj-nxq-iclinvl and prescription medicines only as told by [...] and water are not available, use hand expanding machine operator. ?Ask when you should remove your dressing. [...] Paraphimosis needs to be treated rightaway. Take mzda-opw-ctxyrnt and prescription medicines only as told by [...] 03/18/2010 Document Revised: 10/30/2018 Document Reviewed: 10/30/2018 ElseRelevant Media Patient Education 2019 [employer]is microcaps. Follow Up Care 08/16/2022 14:04:38 With:CHAZ BROUSSARD, Andi Caputo, URL Address: [facility] [address] [place] [address]- [phone] When:09/23/2022 [facility] Kevin 03-15-2023 Hospital Discharge instructions Patient Education 08/16/2022 [...] pressure to the area. General instructions Take incc-bdz-buecsfk and prescription medicines only as told by [...] and water are not available, use hand expanding machine operator. ?Ask when you should remove your dressing. [...] Paraphimosis needs to be treated rightaway. Take irka-dka-kylhtdv and prescription medicines only as told by [...] 03/18/2010 Document Revised: 10/30/2018 Document Reviewed: 10/30/2018 [employer]ent[employer] Patient Education 2020 [employer]is [employer]caps. Follow Up Care 08/09/2022 16:13:36 With:CHAZ BROUSSARD, Andi Caputo, URL Address: [facility] [address] , [place] [address]- When: Unknown [facility] Kevin 03-08-2023 Hospital Discharge instructions Patient Education 08/09/2022 [...] if anything looks unusual. Men with a qpmrcw-mcwl-zexuxf risk for skin cancer may want to see a networking specialist (dining room attendant cafeteria) for an annual body check. Where to find more information National Cancer Christine: https://www.cancer.gov/about-cancer/screening Centers for Disease Control and Prevention: https://www.cdc.gov/cancer/dcpc/prevention/screening.htm [place] Cancer Society: https://www.cancer.org/latest-news/3-cvpihc-jttmndnxu-mxrsv-fjg-oje.html Contact a health care provider if: You [...] 02/15/2017 Document Revised: 02/07/2019 Document Reviewed: 02/15/2017 [employer] Patient Education 2020 [employer]. Follow Up Care 08/09/2022 14:31:53 With:CHAZ BROUSSARD, Andi Caputo, URL Address: [facility] [address] , [place] [address]- When: Unknown [facility] Kevin 03-01-2023 History of Present illness Narrative* Venkatesh [...] (. He is accompanied by his daughter Zackary who is an RN. * Since last [...] see his psychiatrist Dr. Tejas Massey in [place]. * Denies slowness of movements and states [...] due to side effect of urinary retention [facility] Work Phone: 1(278) 595-684802-13-2023 Evaluation note* Encounter Date Diagnosis Assessment Notes Treatment Notes Treatment Clinical Notes Jul, Osteomyelitis of ankle and foot (ICD-10 - M86.9) Decrease Amoxicillin to once daily dosing now. Maintain this dose as his new dose. Jul, Charcot foot due to diabetes mellitus (ICD-10 - E11.610) Jul, Chronic antibiotic suppression (ICD-10 - Z79.2) [employer] Other 2022 Hospital Discharge instructions Patient Education [...] 05/18/2001 Document Revised: 11/04/2018 Document Reviewed: 11/04/2018 ElseRelevant Media Patient Education 2020 [employer] Inc. Follow Up Care 05/17/2022 11:48:41 With:CHAZ BROUSSARD, Andi Caputo, URL Address: [address] [place] [address]- When: Unknown [facility] 12-11-2022 Discharge summary Author Janusz Davidson [facility] May 14, 2022 3:11pm Note Date/Time May 14, 2022 3:11pm [facility] [address] [place] [address] Discharge Summary Signed Patient: José Luis Faulkner MR #: [id number] : 1950 Acct:[id number] Age/Sex: 71 / M Adm Date: 2 Loc: Room: [address] [place] [address]: Janusz Davidson DO Copies to: Mona Davidson DO~ Providers Date of Discharge: 05/14/22 Discharging Provider: [...] % (Auto) 70.9, Lymph % (Auto) 18.1, [place] % (Auto) 7.4, Eos % (Auto) 2.5, Baso % (Auto) 1.1, Nucleat RBC Rel Count 0.1, Neut # (Auto) 4.7, Lymph # (Auto) 1.2, [place]uma # (Auto) 0.5, Eos # (Auto) 0.2, [...] administer with meals fluticasone propionate 50 mcg/actuation [place],Suspension 2 spray INTRANASAL DAILY PRN (Reason: Unknown) [...] <Electronically signed by Janusz Davidson DO> 05/14/[address] [place] [address] Work Phone: 1(167) 303-234712-11-2022 Progress note Author Bill Mcgee [facility] May 14, 2022 11:29am Note Date/Time May 14, 2022 11:29am [facility] [address] [place] [address] Gastroenterology PN Signed Patient: José Luis Faulkner MR #: [id number] : 1950 Acct:[id number] Age/Sex: 71 / M Adm Date: 2 Loc: 4N Room: 3H2309-6 Type: ADM INOo Attending Dr: Janusz Davidson [...] Dose Route Start Last Admin Trade Name Socratesq PRN Reason Stop Dose Admin Albuterol 2.5 [...] Propionate 2 spray 05/12/22 13:26 Fluticasone Propionate [place] 120 [place]/16 Gm Bottle INTRANASAL 05/12/23 13:25 DAILY PRN [...] 20:59 20 units BID MELANIE Administration Ipratropium Paoli 0.5 mg 05/12/22 16:00 05/14/22 08:22 Ipratropium [place] 0.5 Mg/2.5 Ml Vial.Neb INHALATION 05/12/23 15:59 [...] By: <Electronically signed by Bill Mcgee MD> 05/14/22 [facility] Work Phone: 1(515) 979-734512-10-2022 Progress note Author Janusz Davidson [facility] May 13, 2022 5:57pm Note Date/Time May 13, 2022 5:57pm [facility] [address] [place] [address] Hospitalist Progress Note Signed Patient: José Luis Faulkner MR #: [id number] : 1950 Acct:[id number] Age/Sex: 71 / M Adm Date: 2 Loc: Room: 6U0136-3 Type: ADM INOo Attending Dr: Janusz Davidson [...] 05/12/22 13:26 Alprazolam 0.25 Mg Tablet PO 06/07/23 13:25 TID PRN Unknown Amiodarone HCl 300 [...] Propionate 2 spray 05/12/22 13:26 Fluticasone Propionate [place] 120 [place]/16 Gm Bottle INTRANASAL 05/12/23 13:25 DAILY PRN [...] 20:59 20 units BID MELANIE Administration Ipratropium Paoli 0.5 mg 05/12/22 16:00 05/13/22 16:17 Ipratropium [place]oli 0.5 Mg/2.5 Ml Vial.Neb INHALATION 05/12/23 15:59 [...] <Electronically signed by Janusz Davidson DO> 05/13/22 1759 [facility] Work Phone: 1(190) 589-634612-09-2022 History and physical note Author Janusz Davidson [facility] May 12, 2022 8:50pm Note Date/Time May 12, 2022 8 :50pm [facility] [address] [place] [address] Hospitalist H&P Signed Patient: José Luis Faulkner MR #: [id number] : 1950 Acct:[id number] Age/Sex: 71 / M Adm Date: 2 Loc: 4N Room: 4W3178-4 Type: ADM IN Attending Dr: Janusz Davidson [...] negative unless noted below or in HPI [facility] Vaccinated for [facility]-19?: Yes Medical History (Updated [...] spouse stay in in- law suite at [facility] Meds Medications and Allergies Allergies [...] PO BID diabetes 02/24/21 [History Confirmed 05/12/22] btvlgceeyzlk-dan-thmzz acid-vit K-lycop 400 mcg-20 mcg-370 mcg tablet [...] % (Auto) 15.3 % (.) 05/12/22 11:45 Yuma % (Auto) 5.6 % (.) 05/12/22 11:45 Eos % (Auto) 2.4 % (.) 05/12/22 11:45 Baso % (Auto) 1.0 % (.) 05/12/22 11:45 Nucleat RBC Rel Count 0.0 /100 WBC (0-0.5) 05/12/22 11:45 Neut # (Auto) 6.1 x10E3/uL (1.8-7.7) 05/12/22 11:45 Lymph # (Auto) 1.2 x10E3/uL (1.00-4.8) 05/12/22 11:45 Yuma # (Auto) 0.4 x10E3/uL (0.0-0.8) 05/12/22 11:45 [...] 11:45 Blood Type Recheck A Positive 05/12/22 12:20 Antibody Screen Negative 05/12/22 11:45 Documented By: Janusz Davidson DO 05/12/22 20 43 Signed By: <Electronically signed by Janusz Davidson DO> 05/12/222049 [facility] Work Phone: 1(420) 939-353312-09-2022 Consult note Author Bill Mcgee [facility] May 12, 2022 3:53pm Note Date/Time May 12, 2022 3 :46pm [place] [address] Gastroenterology Consult Note Signed Patient: José Luis Faulkner MR #: [id number] : 1950 Acct:[id number] Age/Sex: 71 / M Adm Date: 2 Loc: 4N Room: 5S9199-5 Type: ADM IN Attending Dr: Janusz Davidson DO Copies to: MD Mona Barakat MD, DO~ HPI Data of Consult Date of Consultation: [...] approximately 24 hours and he went to [facility]. He was placedin observation there and told [...] He is on Eliquis. cc:: CC: Janusz Davidson, DO Review of Systems Review of Systems [...] PO BID diabetes 02/24/21 [History Confirmed 05/12/22] rxysfaoopgxc-cnd-tkgte acid-vit K-lycop 400 mcg-20 mcg-370 mcg tablet [...] % (Auto) 75.7 Lymph % (Auto) 15.3 Yuma % (Auto) 5.6 Eos % (Auto) 2.4 Baso % (Auto) 1.0 Nucleat RBC Rel Count 0.0 Neut # (Auto) 6.1 Lymph # (Auto) 1.2 [place]uma # (Auto) 0.4 Eos # (Auto) 0.2 [...] MPV Neut % (Auto) Lymph % (Auto) [place] % (Auto) Eos % (Auto) Baso % (Auto) Nucleat RBC Rel Count Neut # (Auto) Lymph # (Auto) [place] # (Auto) Eos # (Auto) Baso # [...] consult, I will peripherally follow through the weekend. Documented By: Bill Mcgee MD 05/12/22 6417 Signed By: <Electronically signed by Bill Mcgee MD> 05/12/22 2699 [facility] Work Phone: 1(245) 789-929911-30-2022 NotePROCEDURE: XR FOOT LT MIN 3 VIEWS [...] Electronically authenticated by: TERRY SHETTY Date: 2022-05-03 07:09[facility]10-20-2022 Evaluation + Plan note Future Scheduled Tests Laboratory* PSA Total 03/23/22 [facility]10-20-2022 Hospital Discharge instructions Patient Education 03/23/2022 09:56:58 [...] have oneof these risk factors: ?Being of -Belgian descent. ?Having a family history of prostate [...] you: Are older than age 55. Are -Belgian. Have a father, brother, or uncle who [...] 03/01/2018 Document Revised: 05/03/2018 Document Reviewed: 03/01/2018 [employer] Patient Education 2020 [employer] microcaps. [facility] 10-14-2022 Hospital Discharge instructions Follow Up Care 03/17/2022 12:37:20 With:Caterina BROUSSARD, Nicolás Chavez, PUL, AYAH Address: When:6 months [facility]10-07-2022 NotePROCEDURE: XR FOOT LT MIN 3 VIEWS [...] Electronically authenticated by: ENOC BACA Date: 2022-03-10 10:54[facility]10-06-2022 Hospital Discharge instructions Patient Education 03/09/2022 15:32:50 Acute Urinary Retention, Male, Vpvu-ar-Uyhg Acute Urinary Retention, Male Acute urinary retention means that you cannot pee (urinate) at all, or that you pee too little and your bladder is not emptied completely. If it is not treated, it can lead to kidney damage or other serious problems. Follow these instructions at home: Take tgin-pnd-udtatdq and prescription medicines only as told by [...] 11/06/2008 Document Revised: 08/07/2019 Document Reviewed: 06/22/2017 [employer] Patient Education 2020 [employer] 03/09/2022 15:32:45 Paraphimosis Paraphimosis Paraphimosis is a [...] pressure to the area. General instructions Take atla-qoh-favrhyv and prescription medicines only as told by [...] and water are not available, use hand expanding machine operator. ?Ask when you should remove your dressing. [...] Paraphimosis needs to be treated rightaway. Take imov-skr-ehaseiv and prescription medicines only as told by [...] 03/18/2010 Document Revised: 10/30/2018 Document Reviewed: 10/30/2018 [employer] Patient Education 2020 [employer]. Follow Up Care 02/08/2022 09:36:02 With:Deshawn Salinas, URL Address:Unknown When: Unknown [facility] 09-10-2022 Evaluation + Plan noteExtracted from: Title:Discharge Note Author:James PIZARRO MD e:02/11/22 Discharge To, Anticipated II - [facility] Discharged to - Home with family [...] ELVER Wood Within 2 to 4 weeks [address] [place] [address] [place] [address]- Additional Instructions: Parkinson's Disease Acute [...] Urinary retention. Relatively low suspicion for any LPN OR MEDICAL ASSISTANT cause. Cannot have MRI studies here because [...] did recommend to him and his daughter Zackary, who I spoke with on the phone [...] reflux uropathy) Extracted from: Title:Urology Consult Note Author:CHAZ BROUSSARD, Radha kari María Date:02/09/22 Impression and Plan Impression: #1. This [...] in his care. Extracted from: Title:Consult Note-neurology Author:Riri Aviles RN Date:02/09/22 Reason for consult: ASSESSMENT: [...] everything else going on we will consider LPN OR MEDICAL ASSISTANT causes such as brain pathology or thoracic [...] Future Appointments Appointment Date:02/13/2022 02:00:00 PM Scheduled Provider:Caterina BROUSSARD, Nicolás Chavez Location:FT.Pulmonary Clinic Appointment Type:Pulmonary Follow Up (FT) Appointment Date:02/15/2022 02:30:00 PM Scheduled Provider: Location:FT.CARDIO Appointment Type:PUL Pulmonary Function Test (FT) Appointment Date:02/15/2022 03:30:00 PM Scheduled Provider: Location:FT.XRAY Appointment Type:XR Chest (FT) Appointment Date:02/20/2022 10:00:00 AM Scheduled Provider:Deshawn Salinas Location: Appointment Type:URO New Patient Future Scheduled Tests Radiology* XR Chest 2 Views 02/15/22 [facility]09-10-2022 Hospital Discharge instructions Patient Education 02/11/2022 11:20:03 [...] responds to medicines differently. Your response may exchange trouble shooter time. Work with your health care provider to find the best medicines for you. Speech, occupational, and physical therapy. Deep brain stimulation surgery to reduce tremors and other involuntary movements. Follow these instructions at home: Medicines Take ssrh-swq-wkxgdyi and prescription medicines only as told by [...] 05/18/2001 Document Revised: 08/07/2019 Document Reviewed: 08/07/2019 [employer] Patient Education 2020 [employer] 02/11/2022 11:19:59 Acute Urinary Retention, Male Acute [...] complications. Follow these instructions at home: Take siqr-skp-cgsahsa and prescription medicines only as told by [...] 08/27/2001 Document Revised: 05/03/2018 Document Reviewed: 06/22/2017 [employer] Patient Education 2020 [employer]. Follow Up Care 02/08/2022 20:46:13 With:Terry Blank MD, NEU Address: [place] [id number]- When:2 to 4 weeks [facility]09-01-2022 Hospital Discharge instructions Patient Education 02/02/2022 16:55:48 [...] alcohol may irritate the prostate. Medicines Take aicy-gae-zrtsyqz and prescription medicines only as told by [...] 02/16/2005 Document Revised: 05/03/2018 Document Reviewed: 03/07/2018 [employer] Patient Education 2020 [employer]. Follow Up Care 02/02/2022 12:21:30 With:Mona Baker Address: [address] [place] [address]- Business (1) When:02/05/2022 15:28:10 [facility]08-22-2022 Evaluation + Plan note Diagnostic Tests Pending * Methylmalonic Acid 01/23/22 [facility]08-15-2022 Evaluation note* Encounter Date Diagnosis Assessment Notes [...] Jan, Chronic antibiotic suppression (ICD-10 - Z79.2) [facility] Other 07-29-2022 Hospital Discharge instructions Patient Education [...] Slowly return to your usual activities. Take otrl-iqv-nltygmw and prescription medicines only as told by [...] 02/13/2002 Document Revised: 10/21/2018 Document Reviewed: 10/21/2018 [employer] Patient Education 2020 [employer]. 2021 20:32:43 COVID-19: How to Protect Yourself and Others - CDC COVID-19: How to Protect Yourself and Others Know how it spreads There is currently no vaccine to prevent coronavirus disease 2019 (COVID-19). The best way to prevent illness is to avoid being exposed to this virus. The virus is thought to spread mainly from iqnlva-vn-vbfitq. ?Between people who are in close contact [...] are not readily available, use a hand expanding machine operator that contains at least 60% alcohol. Cover [...] at higher risk of getting very sick.www.cdc.gov/cor onavirus/2019-ncov/opse-xkbns-wggkqgogemc/ulrtvi-ol-rugcyg-risk.html Cover your mouth and nose with a [...] available, clean your hands with a hand expanding machine operator that contains at least 60% alcohol. Clean and disinfect Clean AND disinfect frequently touched surfaces daily. This includes tables, doorknobs, light switches, countertops, handles, desks, phones, keyboards, toilets, faucets, and sinks. www.cdc.gov/coronav irus/2019-ncov/ufbrkoo-cgniqag-gmbu/vtgaooqmcckc-byed-jwkp.html If surfaces are dirty, clean them: Use [...] 09/16/2019 Document Revised: 12/11/2019 Document Reviewed: 12/11/2019 [employer] Patient Education 2019 [employer]. 2021 20:32:43 COVID-19 Frequently Asked Questions COVID-19 [...] the coronavirus come from? In May 2019, [place] told the World Health Organization (WHO) of several cases of lung disease (human respiratory illness). These cases were linked to an open seafood and livestock market in the city of [facility]. The link to the seafood and livestock [...] and virus naming World Health Organization (WHO): www.who.int/emergencies/diseases/umvcp-ffxgdxegxtt-9757/technical-g uidance/dtxqdd-jyb-mppyrjhqvvg-disease-(covid-2019)-viq-hic-qtmyb-hmmz-plxfvf-ra Who is at risk for complications from [...] relieve his or her symptoms by using sxin-ksb-sranqqz medicines that treat sneezing, coughing, and runny [...] water are not available, use alcohol-based hand expanding machine operator. Avoid touching your face, mouth, nose, or [...] Prevention (CDC): www.cdc.gov/coronavirus/2019-ncov/travelers/index.html World Health Organization (WHO): www.who.int/emergencies/diseases/gghyl-orlfaxxnhaw-4657/travel-advice Know the risks and take action to [...] water are not available, use alcohol-based hand expanding machine operator. Cough or sneeze into a tissue, sleeve, [...] in hot, soapy water or use a auto service writer. Air-dry your dishes. Wash laundry in hot [...] Health Organization (WHO) Information and news updates: www.who.int/emergencies/diseases/kisyt-azrigdgtidl-5128 Coronavirus health topic: www.who.int/health-topics/coronavirus Questions and answers on COVID-19: www.who.int/news-room/q-a-detail/b-n-rgvbdukeesyxb Global tracker: [employer] [place] Academy [employer] (AAP) Information for families: www.healthychildren.org/[place]/health-issues/conditions/chest-lungs/Pages /6500-Grxne-Axjqzdcbofw.aspx The coronavirus situation is changing rapidly. Check [...] 09/16/2019 Document Revised: 09/16/2019 Document Reviewed: 09/16/2019 [employer] Patient Education 2019 [employer]. 2021 20:32:43 COVID-19 COVID-19 COVID-19 is a [...] managed at home with rest, fluids, and pkxr-lfc-dycwzdr medicines. Treatment for a serious infection usually [...] are safe for you. General instructions Take xbhl-wop-qkrdxdz and prescription medicines only as told by [...] high-risk areas and travel restrictions, check the CDC travel website: wwwnc.cdc.gov/travel/notices If you live in, or must travel to, an area where COVID-19 is a risk, take precautions to avoid infection. ?Stay away from people who are sick. ?Wash your hands often with soap and water for 20 seconds. If soap and water are not available, usean alcohol-based hand expanding machine operator. ?Avoid touching your mouth, face, eyes, or [...] water are not available, use alcohol-based hand expanding machine operator. Stay away from other members of your [...] 06/26/2019 Document Revised: 10/16/2019 Document Reviewed: 06/26/2019 [employer] Patient Education 2020 [employer]. Follow Up Care 2021 15:21:06 With:Mona Baker Address: [place] [address] Business (1) When:01/02/2022 19:16:15 Comments:Follow-up with your primary care provider in 3 to 5 days. If symptoms worsen, do not improve, or new symptoms arise please report back to emergency department for further evaluation. [facility]07-26-2022 History of Present illness Narrative* Ye Lobo [...] Testing: None Ye Lobo documented in this [id number] NotePROCEDURE: XR FOOT LT MIN 3 VIEWS [...] Electronically authenticated by: TERRY SHETTY Date: 2021-11-04 17:19[facility]05-25-2022 Hospital Discharge instructions Follow Up Care 10/26/2021 09:06:29 With:Olivia BROUSSARD, Mona Ward Address: [address] [place] [address]- When: Unknown [facility] [employer] [facility] 05-17-2022 Evaluation + Plan noteExtracted from: Title:Discharge Note Author:MOIRA BROUSSARD, James Justen e:10/18/21 1. General weakness (R53.1: Weakness) 2. Diabetes (E11.9: Type 2 diabetes mellitus without complications) 3. Hypertension (I10: Essential (primary) hypertension) 4. CKD (chronic kidney disease), stage III (N18.30: Chronic kidney disease, stage 3 unspecified) 5. Hyperlipidemia (E78.5: Hyperlipidemia, unspecified) 6. Coronary artery disease (I25.10: Atherosclerotic heart disease of [place] coronary artery without angina pectoris) 7. PAF [...] mg= 1 tab(s), Oral, BID Vitamin D, [address] [employer], Oral, Daily With When Contact Information Moan Olivia Within 3 to [address] [place] [address]- [facility] (1) Additional Instructions: Weakness, Jtxx-vn-Jnge Weakness, Hkzk-ph-Hzfc discharge time > 30 min Extracted from: Title:APSO Note Author:Delvin SANTANA MD [...] artery disease (I25.10: Atherosclerotic heart disease of [place] coronary artery without angina pectoris) - ASA, [...] specified health status) - SCDs, eliquis Orders: Basic Metabolic Panel Capillary Glucose POC Capillary Glucose POC Capillary Glucose POC eGFR Extra Lav Tube Incentive Spirometry Referral to Resource Center Referral to Resource Center Extracted from: Title:APSO Note Author:Delvin SANTANA MD Date: 1. General weakness (R53.1: Weakness) - recent hospital admission, failed home health, PT/OT - CRM to assist with placement Ordered: Initial Observation Care/Day Straight Fwd 30 min [id number] 2. Diabetes (E11.9: Type 2 diabetes mellitus without complications) - 70/30, SSI 3. Hypertension (I10: Essential (primary) hypertension) - coreg, imdur 4. CKD (chronic kidney disease), stage III (N18.30: Chronic kidney disease, stage 3 unspecified) - stable 5. Hyperlipidemia (E78.5: Hyperlipidemia, unspecified) - atorvastatin 6. Coronary artery disease (I25.10: Atherosclerotic heart disease of [place] coronary artery without angina pectoris) - ASA, [...] Other specified health status) - SCDs, eliquis Acute systolic CHF (congestive heart failure) [...] Provider Vital Signs Observation Care Discharge Day 07638 Occupational Therapy Evaluate Patient, Develop a Plan [...] artery disease (I25.10: Atherosclerotic heart disease of [place] coronary artery without angina pectoris) - ASA, [...] Tests Radiology* XR Chest 2 Views 11/07/21 [facility]05-16-2022 Hospital Discharge instructions Patient Education 10/17/2021 09:37:43 Weakness, Grze-rz-Ewbn Weakness Weakness is a lack of strength. [...] about working with a physical therapist or strainer mill operator to help you get stronger. General instructions Take msuz-dsz-vwejufy and prescription medicines only as told by [...] 05/03/2009 Document Revised: 12/25/2018 Document Reviewed: 12/25/2018 [employer] Patient Education 2020 [employer]. 10/17/2021 09:37:43 Weakness, Ajfd-mk-Edga Weakness Weakness is a lack of strength. [...] about working with a physical therapist or strainer mill operator to help you get stronger. General instructions Take wdaf-koi-fxsuyzy and prescription medicines only as told by [...] 05/03/2009 Document Revised: 12/25/2018 Document Reviewed: 12/25/2018 [employer] Patient Education 2020 [employer]. Follow Up Care 10/14/2021 16:14:12 With:Mona Baker Address: [address] [place] [address]- Business (1) When:3 to 5 days [facility]05-12-2022 Hospital Discharge instructions Patient Education 10/13/2021 12:21:24 [...] Consider working with a physical therapist or strainer mill operator who can develop an exercise plan to help you gain muscle strength. General instructions Take wefj-qln-vjyicfi and prescription medicines only as told by [...] 05/21/2006 Document Revised: 12/25/2018 Document Reviewed: 12/25/2018 [employer] Patient Education 2020 [employer] Follow Up Care 10/06/2021 17:41:21 With:Mona Baker Address: [place] [place] [address]- Business (1) When:10/17/2021 10:40:00 [facility]05-12-2022 Evaluation + Plan noteExtracted from: Title:APSO Note Author:Delvin SANTANA MD Date: 1. Other acute kidney failur e (N17.8: Other acute kidney failure) - secondary to pre-renal causes - Cr decreased with IVF - acute kidney injury on CKD on admission as above Ordered: Sbsq Observation Care/Day Moderate 25 min [id number] 2. CKD (chronic kidney disease), stage III [...] artery disease (I25.10: Atherosclerotic heart disease of [place] coronary artery without angina pectoris) - ASA, [...] Health Extracted from: Title:APSO Note Author:ESTHER BROUSSARD, Hasshantell Date: 1. Other acute kidney failur e [...] artery disease (I25.10: Atherosclerotic heart disease of [place] coronary artery without angina pectoris) - ASA, [...] Ordered: Sbsq Observation Care/Day Moderate 25 min 18492 2. CKD (chronic kidney disease), stage III [...] artery disease (I25.10: Atherosclerotic heart disease of [place] coronary artery without angina pectoris) - ASA, [...] prophylaxis (Z78.9: Other specified health status) - bryant Lima Extracted from: Title:APSO Note Author:ESTHER BROUSSARD, Hasshantell [...] artery disease (I25.10: Atherosclerotic heart disease of [place] coronary artery without angina pectoris) - ASA, [...] artery disease) (I25.10: Atherosclerotic heart disease of [place] coronary artery without angina pectoris) No active [...] Device Cardiac Monitoring Continuous Pulse Oximetry COVID-19 [place] Diabetic/Calorie Control Diet Education Fall Risk Folate Level Hypoglycemia Protocol Responsive Patient Hypoglycemia Protocol Unresponsive Patient Magnesium Level Notify Provider Vital Signs Notify Provider Vital Signs Occupational Therapy Evaluate Patient, Develop a Plan of Care and Implement Plan Physical Therapy Evaluate Patient, Develop a Plan of Care and Implement Plan Place in Status Precautions Precautions Rapid COVID Antigen [place] Resuscitation Status - Full Routine Capillary Glucose [...] Date:10/14/2021 07:30:00 AM Scheduled Provider:Lawson MATHIS MD Location:[facility] Care Appointment Type:EC TCU Appointment Date:10/20/2021 10:30:00 AM Scheduled Provider: [facility] Type:[facility] Pulmonary Function Test (FT) Appointment Date:10/20/2021 11:30:00 AM Scheduled Provider: [facility] Type:XR Chest (FT) Appointment Date:12/08/2021 10:00:00 AM Scheduled Provider: [facility] Appointment Type:NCV ICD (FT) Future Scheduled Tests Radiology* XR Chest 2 Views 10/20/21 [facility]04-28-2022 History of Present illness Narrative* Ye Lobo [...] Testing: None Ye Lobo documented in this [id number] History of Present illness Narrative* Ye Lobo MD - 06/21/2021 12:26 PM EST [facility] PROGRESS NOTE 06/21/2021 José Luis Gil, a 70 y.o. male, to reestablish care at [facility]. Patient is a previously known patient, who was under my care for 8 years at [facility] Patient is referred by Mona Baker MD . Interval History: Patient is a 70-year-old , retired white male who resides in [facility] with his spouse. Patient was under my care for almost 7 years in [facility]. Patient stated that he was seeing [...] symptoms since he was last seen in [place]. No new stressors reported. Interpersonal issues were [...] Testing: None Ye Lobo documented in this [id number] Evaluation + Plan note Future Appointments Appointment Date:09/08/2021 10:00:00 AM Scheduled Provider: Location:FT.CARDIO Appointment Type:NCV ICD (FT) Appointment Date:10/13/2021 02:30:00 PM Scheduled Provider:Armani Yarbrough DO Location:FT.ONCOLOGY Appointment Type:ONC Office Visit 15 (FT) Future Scheduled Tests Laboratory* CBC w/ Auto Diff 10/11/21 * Comprehensive Metabolic Panel 10/11/21 * Ferritin 10/11/21 * Iron Level 10/11/21 * Iron Percent Saturation 10/11/21 [facility]05-09-2020 Evaluation + Plan note Future Appointments Appointment Date:08/16/2023 10:00:00 AM Scheduled Provider: Location:.CARDIO Appointment Type:NCV ICD (FT) Appointment Date:10/11/2023 02:15:00 PM Scheduled Provider:Armani Yarbrough DO Location:.ONCOLOGY Appointment Type:ONC Office Visit 30 (FT) Appointment Date:10/22/2023 10:30:00 AM Scheduled Provider:Nicolás Diggs MD Location:FT.Pulmonary Clinic Appointment Type:Pulmonary Follow Up (FT) Diagnostic [...] 04/09/23 * MRI Brain w/o Contrast 03/15/23 [facility]05-09-2020 Evaluation + Plan note Future Appointments Appointment [...] 04/09/23 * MRI Brain w/o Contrast 03/15/23 [facility]03-15-2020 Evaluation + Plan note Future Appointments Appointment Date:08/10/2022 09:30:00 AM Scheduled Provider: Location:FTOriCARDIO Appointment Type:NCV ICD (FT) Appointment Date:08/16/2022 01:00:00 PM Scheduled Provider:Andi WARE MD Location:[facility] Appointment Type:URO Office Visit Appointment Date:08/30/2022 01:00:00 PM Scheduled Provider:[facility] MD [facility] Office Visit Future Scheduled Tests Laboratory* PSA Total 03/23/22 [facility] [id number] Evaluation + Plan note Future Appointments Appointment Date:02/15/2023 10:30:00 AM Scheduled Provider: Location:[facility] Appointment Type:NCV ICD (FT) Appointment Date:07/23/2023 12:15:00 PM Scheduled Provider:[facility] Office Visit Diagnostic Tests Pending * UroVysion Fish and Urine Cyto ([facility]) 01/16/23 Future Scheduled Tests Laboratory* PSA Total 03/23/22 [facility]02-19-2020 Evaluation + Plan note Future Appointments Appointment Date:05/17/2023 10:30:00 AM Scheduled Provider: Location:[facility] Appointment Type:NCV ICD (FT) Appointment Date:07/23/2023 12:15:00 PM Scheduled Provider:[facility] Office Visit Appointment Date:10/11/2023 02:15:00 PM Scheduled Provider:Armani Yarbrough DO Location:FT.ONCOLOGY Appointment Type:ONC Office Visit 30 (FT) Appointment Date:10/22/2023 10:30:00 AM Scheduled Provider:Nicolás Diggs MD Location:FT.Pulmonary Clinic [...] 04/09/23 * MRI Brain w/o Contrast [facility]15[facility]23 [facility] N[facility] - Reported* Parkinsonism * Neurologic Evaluation. [facility]Y-[facility] [address] DO Work Phone: chief complaint Narrative - Reported* Parkinsonism * Neurologic Evaluation. PQ[facility] Work Phone: chief complaint+Reason for visit Narrative* Chief Complaint rectal bleeding Reason for Visit Acute lower GI bleed ing Haemorrhage postprocedure Rectal bleeding [facility] Work Phone: Evaluation + Plan note Future Appointments Appointment Date:10/20/2021 10:30:00 AM Scheduled Provider: Location:FT.CARDIO Appointment Type:PUL Pulmonary Function Test (FT) Appointment Date:10/20/2021 11:30:00 AM Scheduled Provider: Location:FT.XRAY Appointment Type:XR Chest (FT) Appointment Date:12/08/2021 10:00:00 AM Scheduled Provider: Location:FT.CARDIO Appointment Type:NCV ICD (FT) Future Scheduled Tests Radiology* XR Chest 2 Views 10/20/21 [facility] Future Appointments Appointment Date:11/07/2021 12:30:00 PM Scheduled Provider: Location:.CARDIO Appointment Type:PUL Pulmonary Function Test (FT) Appointment Date:11/07/2021 01:30:00 PM Scheduled Provider: Location:FT.XRAY Appointment Type:XR Chest (FT) Appointment Date:12/08/2021 10:00:00 AM Scheduled Provider: Location:.CARDIO Appointment Type:NCV ICD (FT) Future Scheduled Tests Radiology* XR Chest 2 Views 11/07/21 [facility] Evaluation + Plan note Future Appointments Appointment Date:12/08/2021 10:00:00 AM Scheduled Provider: [facility] Type:NCV ICD () [facility] Future Appointments Appointment Date:02/20/2022 10:00:00 AM Scheduled Provider:Deshawn Salinas Location: Appointment Type:URO New Patient [facility] Evaluation + Plan note Future Appointments Appointment Date:03/09/2022 02:00:00 PM Scheduled Provider:Deshawn Salinas Location: Appointment Type:URO New Patient [facility] modulRaluation + Plan note Future Appointments Appointment Date:03/23/2022 09:00:00 AM Scheduled Provider:Deshawn Salinas Location: Appointment Type:URO Office Visit [facility] Evaluation + Plan note Future Appointments Appointment Date:03/31/2022 09:30:00 AM Scheduled Provider:Nicolás Diggs MD Location:.Pulmonary Clinic Appointment Type:Pulmonary Follow Up (FT) Future Scheduled Tests Laboratory* PSA Total 03/23/22 [facility] Evaluation + Plan note Future Appointments Appointment Date:05/09/2022 10:30:00 AM Scheduled Provider: Location:[facility] Appointment Type:Urology FT Appointment Date:05/09/2022 11:45:00 AM Scheduled Provider: Location:[facility] Appointment Type:Urology FT Future Scheduled Tests Laboratory* PSA Total 03/23/22 [facility] Future Appointments Appointment Date:06/22/2022 12:45:00 PM Scheduled Provider: Location:.CARDIO Appointment Type:PUL Pulmonary Function Test (FT) Appointment Date:06/22/2022 01:45:00 PM Scheduled Provider: [facility] Type:XR Chest () Appointment Date:07/20/2022 01:45:00 PM Scheduled Provider:Landon WILL MD Location:[facility] Appointment Type:[facility] Follow Up Future Scheduled Tests Laboratory* PSA Total 03/23/22 Radiology* XR Chest 2 Views 06/22/22 [facility] evaluation + Plan note Future Appointments Appointment Date:07/20/2022 01:45:00 PM Scheduled Provider:Landon WILL MD Location:[facility] Appointment Type:BAD Follow Up Future Scheduled Tests Laboratory* PSA Total 03/23/22 [facility] Future App[facility]ments Appointment Date:08/16/2022 01:00:00 PM Scheduled Provider:Andi WARE MD [place] Appointment Type:URO Office Visit Appointment Date:08/30/2022 01:00:00 PM Scheduled Provider:Andi WARE MD Location[place] Appointment Type:URO Office Visit Future Scheduled Tests Laboratory* PSA Total [facility]23[facility]22 [facility] Future Appointments Appointment Date:08/23/2022 10:15:00 AM Scheduled Provider:Andi WARE MD Location[place] Appointment Type:URO Office Visit Appointment Date:08/30/2022 01:00:00 PM Scheduled Provider:Andi WARE MD Location[place] Appointment Type:URO Office Visit Appointment Date:11/09/2022 10:30:00 AM Scheduled Provider: Location:[facility] Appointment Type:NCV ICD (FT) Future Scheduled Tests Laboratory* PSA Total 03/23/22 [facility] Future Appointments Appointment Date:09/25/2022 11:15:00 AM Scheduled Provider:Andi WARE MD Location:[facility] Appointment Type:URO Office Visit Appointment Date:11/09/2022 10:30:00 AM Scheduled Provider: Location:.CARDIO Appointment Type:NCV ICD (FT) Future Scheduled Tests Laboratory* PSA Total 03/23/22 [facility] Evaluation + Plan note Future Appointments Appointment Date:11/09/2022 10:30:00 AM Scheduled Provider: Location:.CARDIO Appointment Type:NCV ICD (FT) Future Scheduled Tests Laboratory* PSA Total 03/23/22 [facility] evaluation + Plan note Future Appointments Appointment Date:11/09/2022 10:30:00 AM Scheduled Provider: Location:.CARDIO Appointment Type:NCV ICD (FT) Diagnostic Tests Pending * UroVysion Fish and Urine Cyto ([facility]) 10/31/22 Future Scheduled Tests Laboratory* PSA Total 03/23/22 [facility] Future Appointments Appointment Date:02/15/2023 10:30:00 AM Scheduled Provider: Location:.C[facility]IO Appointment Type:NCV ICD (FT) Diagnostic Tests Pending * Urine Culture 11/24/22 Future Scheduled Tests Laboratory* PSA Total 03/23/22 Radiology* CT Abdomen/Pelvis w/ Contrast 11/24/22 [facility] Future Appointments Appointment Date:02/15/2023 10:30:00 AM Scheduled Provider: Location:.CARDIO Appointment Type:NCV ICD (FT) Future Scheduled Tests Laboratory* PSA Total 03/23/22 [facility] Future Appointments Appointment Date:07/23/2023 12:15:00 PM Scheduled Provider:Andi WARE MD Location:[facility] Appointment Type:URO Office Visit Future Scheduled Tests Laboratory* PSA Total 03/23/22 [facility] Future Appointments Appointment Date:03/09/2023 10:00:00 AM Scheduled Provider: Location:.[facility] Appointment Type:CT Head/Neck (FT) Appointment Date:05/17/2023 10:30:00 AM Scheduled Provider: Location:.CARDIO Appointment Type:NCV ICD (FT) Appointment Date:07/23/2023 12:15:00 PM Scheduled Provider:Andi WARE MD Location:[facility] Appointment Type:URO Office Visit Future Scheduled Tests Laboratory* PSA Total 03/23/22 Radiology* CT Head or Brain w/o Contrast 03/09/23 [facility] Future Appointments Appointment Date:04/12/2023 09:00:00 AM Scheduled Provider:Armani Yarbrough DO [facility] Type:ONC Office Visit 30 (FT) Appointment Date:05/17/2023 10:30:00 AM Scheduled Provider: [facility] App[facility] Type:NCV ICD (FT) Appointment Date:07/23/2023 12:15:00 PM Scheduled Provider:Andi WARE MD Location:[facility] Appointment Type:URO Office Visit Appointment Date:10/22/2023 10:30:00 AM Scheduled Provider:Nicolás Diggs MD Location[facility] Appointment Type:Pulmonary Follow Up (FT) Future Scheduled Tests Radiology* CT Chest w/o Contrast 04/09/23 * MRI Brain w/o Contrast 03/15/23 [facility] Future Appointments Appointment Date:07/23/2023 12:15:00 PM Scheduled Provider:Andi WARE MD Location:[facility] Appointment Type:URO Office Visit Appointment Date:08/16/2023 10:00:00 AM Scheduled Provider: Location:.CARDIO [...] 04/09/23 * MRI Brain w/o Contrast 03/15/23 [facility] Future Appointments Appointment Date:10/11/2023 02:15:00 PM Scheduled Provider:Armani Yarbrough DO Location:FT.ONCOL[facility] Appointment Type:ONC Office Visit 30 (FT) Appointment Date:10/22/2023 10:30:00 AM Scheduled Provider:Nicolás Diggs MD Location:[facility] [...] 04/09/23 * MRI Brain w/o Contrast 03/15/23 [facility] Future Appointments Appointment Date:10/31/2023 01:45:00 PM Scheduled Provider:Armani Yarbrough DO [facility] Appoint[facility] Type:ONC Office Visit 30 (FT) Diagnostic [...] 04/09/23 * MRI Brain w/o Contrast 03/15/23 [facility] Future Appointments Appointment Date:10/31/2023 01:45:00 PM Scheduled Provider:Armani Yarbrough DO [facility] Appointment Type:ONC Office Visit 30 (FT) Appointment Date:11/09/2023 09:00:00 AM Scheduled Provider: [facility] Appoint[facility] Type:Anticoagulation Initial Assessment 58 (F Future Scheduled Tests Laboratory* CBC w/ Auto Diff 07/13/23 * Comprehensive Metabolic Panel 07/13/23 * Ferritin 07/13/23 * Iron Level 07/13/23 * Iron Percent Saturation 07/13/23 * Transferrin 07/13/23 Radiology* CT Chest w/o Contrast 04/09/23 * MRI Brain w/o Contrast 03/15/23 [facility] Future Appointments Appointment Date:11/09/2023 09:00:00 AM Scheduled Provider: [facility] App[facility] Type:Anticoagulation Initial Assessment 58 (F Appointment Date:12/05/2023 10:00:00 AM Scheduled Provider:Nicolás Diggs MD Location:.[facility] Appointment Type:Pulmonary Follow Up (FT) Appointment Date:10/30/2024 01:45:00 PM Scheduled Provider:Armani Yarbrough DO [facility] Appointment Type:ONC Office Visit 30 (FT) Future [...] 04/09/23 * MRI Brain w/o Contrast 03/15/23 [facility] Future Appointments Appointment Date:11/16/2023 02:45:00 PM Scheduled Provider: Location:.CARDIO Appointment Type:Anticoagulation Follow Up 15 (FT) Appointment Date:11/22/2023 02:00:00 PM Scheduled Provider: [facility] Appointment Type:ONC Injectafer (FT) Appointment Date:12/05/2023 10:00:00 AM Scheduled Provider:Caterina BROUSSARD, Nicolás Chavez Location:.[facility] Appointment Type:Pulmonary Follow Up (FT) [...] 04/09/23 * MRI Brain w/o Contrast 03/15/23 [facility] Future Appointments Appointment Date:11/23/2023 03:15:00 PM Scheduled Provider: [facility]oint[facility] Type:Anticoagulation Follow Up 15 (FT) Appointment Date:12/05/2023 10:00:00 AM Scheduled Provider:Nicolás Diggs MD [facility] Type:Pulmonary Follow Up (FT) Appointment Date:10/30/2024 01:40:00 PM Scheduled Provider:Armani Yarbrough DO Location:[facility] Appointment Type:ONC Office Visit 30 (FT) Future [...] 04/09/23 * MRI Brain w/o Contrast 03/15/23 [facility] Future Appointments Appointment Date:12/14/2023 11:45:00 AM Scheduled Provider: Location:.CARDIO Appointment Type:Anticoagulation Follow Up 15 (FT) Appointment Date:12/20/2023 12:00:00 PM Scheduled Provider: [facility] App[facility] Type:CT Chest (FT) Appointment Date:01/23/2024 11:00:00 AM Scheduled Provider:Nicolás Diggs MD Location:.[facility] Appointment Type:Pulmonary Follow Up (FT) Appointment Date:10/30/2024 01:40:00 PM Scheduled Provider:Armani Yarbrough DO Location:.ONCOLOGY Appointment [...] Transferrin 10/23/24 Radiology* CT Chest w/o Contrast 12/20/23 * CT Chest w/o Contrast 04/09/23 * MRI Brain w/o Contrast 03/15/23 [facility] Future Appointments Appointment Date:12/21/2023 11:45:00 AM Scheduled Provider: Location:.CARDIO Appointment Type:Anticoagulation Follow Up 15 (FT) Appointment Date:12/27/2023 08:15:00 PM Scheduled Provider: Location:.SLEEP LAB_ Appointment Type:SCI[facility] SPECIALIST Sleep Study PSG (FT) Appointment Date:01/10/2024 10:30:00 AM Scheduled Provider: [facility] Appoint[facility] Type:NCV ICD (FT) Appointment Date:01/23/2024 11:00:00 AM Scheduled Provider:Nicolás Diggs MD [facility] App[facility]ment Type:Pulmonary Follow Up (FT) Appointment Date:01/31/2024 09:30:00 AM Scheduled Provider: Location:[facility] Appointment Type:Urology CALL PAT FT Appointment Date:02/05/2024 11:00:00 AM Scheduled Provider: Location:[facility] Appointment Type:Urology FT Appointment Date:10/30/2024 01:40:00 PM Scheduled Provider:Armani Yarbrough DO [facility] Appointment Type:ONC Office Visit 30 () Future Scheduled Tests Laboratory* Erythropoietin Level 01/24/24 [...] 04/09/23 * MRI Brain w/o Contrast 03/15/23 [facility] Future Appointments Appointment Date:12/28/2023 01:45:00 PM Scheduled Provider: Location:.CARDIO Appointment Type:Anticoagulation Follow Up 15 (FT) Appointment Date:01/10/2024 10:30:00 AM Scheduled Provider: [facility] Appoint[facility] Type:NCV ICD (FT) Appointment Date:01/23/2024 11:00:00 AM Scheduled Provider:Nicolás Diggs MD [facility] Appointment Type:Pulmonary Follow Up (FT) Appointment Date:01/31/2024 09:30:00 AM Scheduled Provider: Location:[facility] Appointment Type:Urology CALL PAT FT Appointment Date:02/05/2024 11:00:00 AM Scheduled Provider: Location:[facility] Appointment Type:Urology FT Appointment Date:10/30/2024 01:40:00 PM Scheduled Provider:Armani Yarbrough DO [facility] Appointment Type:ONC Office Visit 30 (FT) Future [...] 04/09/23 * MRI Brain w/o Contrast 03/15/23 [facility] Evaluation + Plan note Future Appointments Appointment Date:01/11/2024 01:45:00 PM Scheduled Provider: Location:.CARDIO Appointment Type:Anticoagulation Follow Up 15 (FT) Appointment Date:01/23/2024 11:00:00 AM Scheduled Provider:Nicolás Diggs MD Location:.[facility] Appointment Type:Pulmonary Follow Up (FT) Appointment Date:01/31/2024 09:30:00 AM Scheduled Provider: Location:[facility] Appointment Type:Urology CALL PAT FT Appointment Date:02/05/2024 11:00:00 AM Scheduled Provider: Location:[facility] Appointment Type:Urology FT Appointment Date:04/10/2024 11:00:00 AM Scheduled Provider: [facility] Appoint[facility] Type:NCV Pacemaker (FT) Appointment Date:10/30/2024 01:40:00 PM Scheduled Provider:Armani Yarbrough DO Location:.ONCOLOGY Appointment [...] 04/09/23 * MRI Brain w/o Contrast 03/15/23 [facility] Evaluation + Plan note Future Appointments Appointment Date:01/31/2024 09:30:00 AM Scheduled Provider: Location:[facility] Appointment Type:Urology CALL PAT FT Appointment Date:02/05/2024 11:00:00 AM Scheduled Provider: Location:[facility] Appointment Type:Urology FT Appointment Date:02/08/2024 02:00:00 PM Scheduled Provider: Location:.CARDIO Appointment Type:Anticoagulation Follow Up 15 (FT) Appointment Date:04/10/2024 11:00:00 AM Scheduled Provider: Location:.CARDIO Appointment Type:NCV Pacemaker (FT) Appointment Date:10/30/2024 01:40:00 PM Scheduled Provider:Armani Yarbrough DO Location:.ONCOLOGY Appointment [...] * Transferrin 07/26/24 * Transferrin 10/23/24 Radiology* NM PET w/ CT Scan Skull Base to Midthigh 01/23/24 * CT Chest w/o Contrast 04/09/23 * MRI Brain w/o Contrast 03/15/23 [facility] Evaluation + Plan note Future Appointments Appointment Date:02/06/2024 04:00:00 PM Scheduled Provider: Location:.[facility] Appointment Type:NM PET w/ CT Scan Skull Base to Midthigh Appointment Date:02/08/2024 02:00:00 PM Scheduled Provider: Location:.CARDIO Appointment Type:Anticoagulation Follow Up 15 (FT) Appointment Date:04/10/2024 11:00:00 AM Scheduled Provider: [facility] Appoint[facility] Type:NCV Pacemaker (FT) Appointment Date:10/30/2024 01:40:00 PM Scheduled Provider:Armani Yarbrough DO [facility] Appointment Type:ONC Office Visit 30 (FT) Diagnostic Tests Pending * UroVysion Fish and Urine Cyto ([facility]) 02/05/24 Future Scheduled Tests Laboratory* Erythropoietin Level 01/24/24 [...] * Transferrin 07/26/24 * Transferrin 10/23/24 Radiology* NM PET w/ CT Scan Skull Base to Midthigh 02/06/24 * CT Chest w/o Contrast 04/09/23 * MRI Brain w/o Contrast 03/15/23 [facility] Evaluation note* Diagnosis Bipolar 1 disorder, mixed, mild (HCC)- Primary Generalized anxiety disorder Long-term use of high-risk medication [facility] Bipolar 1 disorder, manic, mild (HCC)- Primary Generalized anxiety disorder Long-term use of high-risk medication [facility] Diagnosis Bipolar 1 disorder, manic, mild (HCC)- Primary Generalized anxiety disorder Long-term use of high-risk medication [facility] Diagnosis Onset Date Resolution Status Acute lower GI bleeding acut e [facility] Work Phone: Evaluation note* Diagnosis Onset Date Resolution Status Acute lower GI bleeding acut e Haemorrhage postprocedure ac hoh Rectal bleeding acute [facility] Work Phone: Evaluation noteNo [facility] Other Evaluation note* Diagnosis Memory loss- Primary Parkinsonism, unspecified Parkinsonism type Bipolar disorder, in partial remission, most recent episode mixed (CMS/HCC) ([facility]) Polypharmacy Issue of repeat prescriptions [facility] Diagnosis Mild dementia without behavioral disturbance, psychotic disturbance, mood disturbance, or anxiety, unspecified dementia type (HCC)- Primary B12 deficiency Acquired hypothyroidism Unspecified hypothyroidism [facility]* Diagnosis Parkinsonism, unspecified Parkinsonism type- Primary Cognitive impairment Unspecified persistent mental disorders due to conditions classified elsewhere documented in this encounter [facility] Work Phone: Evaluation note* Diagnosis 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 S/P PTCA (percutaneous [...] sleep apnea, adult documented in this encounter [facility] Work Phone: Evaluation noteNo assessment information available [facility] Work Phone: Evaluation note* Diagnosis 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- Primary Ventricular tachycardia [...] 2 diabetes mellitus without complication, unspecified whether intermodal dispatcher insulin use (Multi) Class 1 obesity without serious comorbidity with body mass index (BMI) of 32.0 to 32.9 in adult, unspecified obesity type Mild dementia without behavioral disturbance, psychotic disturbance, mood disturbance, or anxiety, unspecified dementia type (Multi) documented in this encounter [facility] Work Phone: Evaluation note* Diagnosis Bipolar 1 disorder, manic, full remission (HCC)- Primary Generalized anxiety disorder Long-term use of high-risk medication [facility] Diagnosis Onset Date Resolution Status Chronic antibiotic suppression acute Osteomyelitis of ankle and foot [facility] Work Phone: evaluation note* Diagnosis Onset Date Resolution Status Chronic antibiotic suppression acute Osteomyelitis of ankle and foot acute Osteomyelitis of ankle and foot [facility] Work Phone: evaluation note* Diagnosis Generalized anxiety disorder- Primary [facility]* Diagnosis Bipolar 1 disorder, manic, full remission (HCC)- Primary Long-term use of high-risk medication Generalized anxiety disorder [facility] discharge follow-up- Primary Other follow-up examination Acute hypoxic respiratory failure (CMS/HCC) Acute on chronic heart failure, unspecified heart failure type (CMS/HCC) Stage 3a chronic kidney disease (HCC) (CMS/HCC) BMI 31.0-31.9,adult Obesity (BMI 30.0-34.9) Atherosclerosis of aorta (CMS/HCC) Atherosclerosis of aorta documented [facility] Author Bill Mcgee [facility] September 06, 2023 8:14am Note Date/Time September 06, 2023 8:13 am [facility] [address] [place] [address] Gastroenterology H&P Signed Patient: José Luis Faulkner MR #: [id number] : 1950 Acct:[id number] Age/Sex: 72 / M Adm Date: 4 Loc: Room: Type: [facility] Attending Dr: Bill Mcgee MD Copies to: [...] Mcgee MD Documented By: Bill Mcgee MD 09/06/23811 Signed By: <Electronically signed by Bill Mcgee MD> 09/06/23813 [facility] Work Phone: History general Narrative - Reported* Type Description Date [...] SEE ABOVE SURGERY Hospitalization History HYPOTENSION 07/2016 [employer] Other History of Present illness Narrative* Venkatesh Gil is a 71 year old right-handed male with a history of atrial fibrillation s/p AICD, T2DM, HTN, HLD, hypothyroidism, and bipolar disorder (on Abilify), who presents for evaluation ofparkinsonism. He is accompanied by his daughter Zackary who is an RN. * Per daughter, [...] 1 year ago. 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 * - Tobacco use: Quit smoking cigarettes in 2000. * - Alcohol use: None * - Illicit drug use: None * Family History: * - No family history of Parkinson s disease or tremor. Possibly dementia in older sister. [id number] [address] DO Work Phone: History of Present illness Narrative* Venkatesh Gil is a 71 year old right-handed male with a history of atrial fibrillation s/p AICD, T2DM, HTN, HLD, hypothyroidism, and bipolar disorder (on Abilify), who presents for evaluation ofparkinsonism. He is accompanied by his daughter Zackary who is an RN. * Per daughter, [...] 1 year ago. 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 * - Tobacco use: Quit smoking cigarettes in 2000. * - Alcohol use: None * - Illicit drug use: None * Family History: * - No family history of Parkinson s disease or tremor. Possibly dementia in older sister. [id number] [place] [facility] Work Phone: Hospital course Narrative No data available for this section [facility] No data available for this section [facility] Additional Instructions Take Torsemide 20mg twice daily for 4 days then resume home dose and repeat labs [facility] Work Phone: Hospital Discharge instructions Additional Instructions [...] appointment and to remove the catheter. [ ][facility] Work Phone: Hospital Discharge instructions Additional Instructions [...] to schedule a follow up appointment.] [ ][facility] Work Phone: Progress note No data available for this section [facility] Family History Unknown Family Member Name Dates Details Family [...] Diabetes mellitus Unknown sister Diabetes mellitus Unknown Relationship Condition Age at Onset Recorded Date/T lina mother Malignant neoplasm of colon Unknown Hyperlipidemia Unknown [...] have your Pulmonary Functions Test done at [facility]. The specific time and date of your testing is indicated on the form. It is also necessary for you to have a chest x-ray as well as lab work. These tests are needed if you are on one of the following medications: Cordarone, Pacerone, or Amiodarone. * (If your testing is being performed at [facility] - please enter through the [facility] entrance - NOT the Emergency Room entrance. ) * If you are unable to keep the appointment that has been made for you, please contact our office at [phone] and press option #3 so that we may assist you in rescheduling. * Thank you for your compliance with this testing, * The Staff * [facility] * Note: You MAY NOT USE inhalers for 4 hours PRIOR to your Pulmonary Function Test. * [facility] 06/16/2021 @ 10:30 AM * Enclosed you will find an order form to have your Pulmonary Functions Test done at [facility]. The specific time and date of your testing is indicated on the form. It is also necessary for you to have a chest x-ray as well as lab work. These tests are needed if you are on one of the following medications: Cordarone, Pacerone, or Amiodarone. * (If your testing is being performed at [facility] - please enter through the [facility] entrance - NOT the Emergency Room entrance. ) * If you are unable to keep the appointment that has been made for you, please contact our office at [phone] and press option #3 so that we may assist you in rescheduling. * Thank you for your compliance with this testing, * The Staff * [facility] * Note: You MAY NOT USE inhalers for 4 hours PRIOR to your Pulmonary Function Test * [facility] 07/21/2021 @ 12:45 pm CATH RESULTS.* CATH [...] We will continueEliquis * Felipa Milligan MD, [facility] * JOSÉ LUIS GIL is being seen for [facility]. * Is in the office for follow-up [...] have your Pulmonary Functions Test done at [facility]. The specific time and date of your testing is indicated on the form. It is also necessary for you to have a chest x-ray as well as lab work. These tests are needed if you are on one of the following medications: Cordarone, Pacerone, or Amiodarone. * (If your testing is being performed at [facility] - please enter through the [facility] entrance - NOT the Emergency Room entrance. ) * If you are unable to keep the appointment that has been made for you, please contact our office at [phone] and press option #3 so that we may assist you in rescheduling. * Thank you for your compliance with this testing, * The Staff * [facility] * Note: You MAY NOT USE inhalers for 4 hours PRIOR to your Pulmonary Function Test * [facility] 10/20/2021 @ 10:30 AM * JOSÉ LUIS GIL is being seen for a 4 month follow-up of. * Patient is in the office for follow-up for the problems noted below. I saw him in the hospital last when he was there for increasing lower [...] have your Pulmonary Functions Test done [facility] [facility]. The specific time and date of your testing is indicated on the form. It is also necessary for you to have a chest x-ray as well as lab work. These tests are needed if you are on one of the following medications: Cordarone, Pacerone, or Amiodarone. * (If your testing is being performed at [facility] - please enter through the [facility] entrance - NOT the Emergency Room entrance. ) * If you are unable to keep the appointment that has been made for you, please contact our office at [phone] and press option #3 so that we may assist you in rescheduling. * Thank you for your compliance with this testing, * The Staff * [facility] * Note: You MAY NOT USE inhalers for 4 hours PRIOR to your Pulmonary Function Test * [facility] 06/08/2022 @ 12:45 pm * JOSÉ LUIS [...] closely. follow up for Parkinsonism. Advance Directives Documents on File Type Date Recorded Patient Copy Clerk Expl anation Advance Directives and Living Will [...] bleeding and diarrhea rectal bleeding and diarrhea Chief Complaint rectal bleeding and diarrhea rectal bleeding and diarrhea Patient here for a 3 month f/u Unknown Reason for Visit Chronic antibiotic s uppression Osteomyelitis of ankle and foot Chief Complaint rectal bleeding and diarrhea rectal bleeding and diarrhea Patient here for a 3 month f/u Unknown TBH CULTURE RESULTS Reason for Visit Chronic antibiotic s uppression Osteomyelitis of ankle and foot Chief Complaint Patient here for a 3 month f/u Unknown TBH CULTURE RESULTS was in [facility] [place] Observation Reason for Visit Chronic antibiotic s uppression Osteomyelitis of ankle and foot Osteomyelitis of ankle and foot Reason for Referral Specialty Diagnoses / Procedures Referred By Gutierrez hobbs Referred To Contact Diagnoses Paroxysmal atrial fibrillation ([facility]) Procedures ECG 12 Lead Felipa Milligan MD [address] [place] [address] Referral ID Status Reason Start Date Expiration Date V isits Requested Visits Authorized [id number] Pending Review 04/04/2023 04/03/2024 1 1 Specialty Diagnoses / Procedures Referred By Gutierrez hobbs Referred To Contact Cardiology Diagnoses 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 S/P PTCA (percutaneous transluminal coronary angioplasty) Ventricular tachycardia (paroxysmal) ([facility]) Procedures Follow Up In Cardiology Felipa Milligan MD [address] [facility] [address], [address] [address] Felipa Milligan MD [address] [facility] [address], [address] [address] Referral ID Status Reason Start Date Expiration Date V isits Requested Visits Authorized [id number] Authorized 04/04/2023 04/03/2024 1 1 Specialty Diagnoses / Procedures Referred By Contac t Referred To Contact Radiology Diagnoses Memory loss Procedures CT head wo IV contrast Keisha Brambila, BALTAZAR - [address] [address] Referral ID Status Reason Start Date Expiration Date V isits Requested Visits Authorized [id number] Pending Review 02/20/2023 08/19/2023 1 1 Additional Source Comments Reason for Visit (unrecogniz ed section and content) Reason Comments Medication Management Reason Onset Date Comments Appointment 02/15/2023 Reason Comments Memory Loss Specialty Diagnoses / Procedures Referred By Contac t Referred To Contact Geriatric Medicine Diagnoses dementia (per zackary) Procedures geriatric assessment [address] [address] [address] Referral ID Status Reason Start Date Expiration Date Visits Re quested Visits Authorized [id number] Closed 02/16/2023 08/15/2023 1 1 Reason Comments Memory Loss Reason Comments Parkinson's Disease Reason Comments Hospital Follow-up Specialty Diagnoses / Procedures Referred By Contac t Referred To Contact Cardiology Diagnoses 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 Procedures Follow Up In Cardiology Jeremías Mims MD [address] [facility] [address], [address] [address] Referral ID Status Reason Start Date Expiration Date V isits Requested Visits Authorized [id number] Authorized 03/14/2023 09/10/2023 1 1 Reason Comments Follow-up 6m Specialty Diagnoses / Procedures Referred By Gutierrez t Referred To Contact Cardiology Diagnoses 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 S/P PTCA (percutaneous transluminal coronary angioplasty) Ventricular tachycardia (paroxysmal) (Multi) Procedures Follow Up In Cardiology Felipa Milligan MD [address] [place] [address] 2, [address] [address] Felipa Milligan MD [address] [facility], [place] [address] [place] [address] Referral ID Status Reason Start Date Expiration Date V isits Requested Visits Authorized [id number] Authorized 04/04/2023 04/03/2024 1 1 Reason Onset Date Comments Hospital Follow-up 03/04/2024 Reason Comments Hospital Follow-up Care Teams (unrecognized sec tion and content) Team Status: Active Member Role Status Yanna Baker MD Primary Care Provider Active Team Status: Inactive Member Role Status Yanna Baker MD Primary Care Provider Active Start: September 06, 2023 End: September 06, 2023 Bill Mcgee MD Attending Provider Active S tart: September 06, 2023 End: September 06, 2023 Team Status: Active Member Role Status Yanna Baker MD Primary Care Provider Active Start: September 06, 2023 Bill Mcgee MD Attending Provider, Other Provide r Active Start: September 06, 2023 Team Status: Inactive Member Role Status Yanna Baker MD Primary Care Provider Active Start: October 18, 2023 End: October 18, 2023 Janusz Ruiz MD Attending Provider Active Sta rt: October 18, 2023 End: October 18, 2023 Team Status: Inactive Member Role Status Yanna Baker MD Primary Care Provider Active Start: November 08, 2023 End: November 08, 2023 John Paul Prince DPM MS Attending Provider Active Start: November 08, 2023 End: November 08, 2023 Team Status: Inactive Member Role Status Yanna Baker MD Primary Care Provider Active Start: November 26, 2023 End: November 26, 2023 Janusz Ruiz MD Attending Provider Active Sta rt: November 26, 2023 End: November 26, 2023 Team Status: Active Member Role Status Dates Mona Baker MD Primary Care Provider Active Start: August 11, 2023 Janusz Ruiz MD Attending Provider Active Sta rt: August 11, 2023 Supervisor Orchard Relationship Specialty Start Date End Date Mona Baker MD [address] [place] [address] PCP - General Family Medicine 06/21/21 Supervisor Orchard Relationship Specialty Start Date End Date Mona Baker MD [address] [place] [address] PCP - General Family Medicine 06/21/21 Team [...] Active Andi Ware MD Attending Provider Active Supervisor Orchard Relationship Specialty Start Date End Date Mona Baker [address] [place] [address] PCP - General Family Medicine 02/16/23 Supervisor Orchard Relationship Specialty Start Date End Date Mona Baker [address] [place] [address] PCP - General Family Medicine 02/16/23 Supervisor Orchard Relationship Specialty Start Date End Date Mona Baker [address] [place] [address] PCP - General Family Medicine 02/16/23 Supervisor Orchard Relationship Specialty Start Date End Date Mona Baker MD [address] [place] [address] PCP - General 06/04/14 Supervisor Orchard Relationship Specialty Start Date End Date Mona Baker MD [address] [place] [facility] [place] [address] PCP - General 06/04/14 Elly Hill, MANAGER AGRICULTURAL-FURNITURE SANDER [address] [place] [address], [address], [place] [address] [place] [address] Nurse Practitioner Neurology 03/30/23 Team Status: Inactive Member Role Status Yanna Baker MD Primary Care Provider Active Cayden Petty MD Emergency Provider Active Team Status: Inactive Member Role Status Yanna Baker MD Primary Care Provider Active Start: June 17, 2023 End: June 17, 2023 Cayden Petty MD Emergency Provider Active Star t: June 17, 2023 End: June 17, 2023 Team Status: Active Member Role Status Yanna Baker MD Primary Care Provider Active Start: July 18, 2023 Janusz Ruiz MD Attending Provider Active Sta rt: July 18, 2023 Team Status: Active Member Role Status Yanna Baker MD Primary Care Provider Active Start: July 26, 2023 Janusz Ruiz MD Attending Provider Active Sta rt: July 26, 2023 Supervisor Orchard Relationship Specialty Start Date End Date Mona Baker MD [address] [place] [address] PCP - General 06/04/14 Elly Hill, MANAGER AGRICULTURAL[employer]FURNITURE SANDER [address] [facility], [address], [place] [address] [place] [address] Nurse Practitioner Neurology 03/30/23 Supervisor Orchard Relationship Specialty Start Date End Date Mona Baker MD [address] [place] [address] PCP - General Family Medicine 06/21/21 Team Status: Inactive Member Role Status Dates Mona Baker MD Primary Care Provider Active Start: January 03, 2024 End: January 03, 2024 Janusz Ruiz MD Attending Provider Active Sta rt: January 03, 2024 End: January 03, 2024 Supervisor Orchard Relationship Specialty Start Date End Date Mona Baker MD [address] [place] [address] PCP - General Family Medicine 06/21/21 Supervisor Orchard Relationship Specialty Start Date End Date Mona Baekr MD [address] [place] [address] PCP - General Family Medicine 07/25/23 Supervisor Orchard Relationship Specialty Start Date End Date Mona Baker MD [address] [place] [address] PCP - General Family Medicine 07/25/23 (unrecognized sect ion and content) No Status [...] section and content) DATE CREATED AUTHOR 08/13/[address] [facility] dical Specialist DATE CREATED AUTHOR AUTHOR'S ORGANIZ ATION 08/22/2022 [facility] DATE CREATED AUTHOR AUTHOR'S ORGANIZ ATION 09/03/2022 [facility] DATE CREATED AUTHOR AUTHOR'S ORGANIZ ATION 10/05/2022 [facility] DATE CREATED AUTHOR AUTHOR'S ORGANIZ ATION 11/21/2022 [employer] DATE CREATED AUTHOR AUTHOR'S ORGANIZ ATION 03/08/2023 [facility] DATE CREATED AUTHOR AUTHOR'S ORGANIZ ATION 09/26/2023 [facility] DATE CREATED AUTHOR AUTHOR'S ORGANIZ ATION 11/09/2023 [facility] DATE CREATED AUTHOR AUTHOR'S ORGANIZ ATION 11/25/2023 [facility] DATE CREATED AUTHOR AUTHOR'S ORGANIZ ATION 11/27/2023 [facility] DATE CREATED AUTHOR AUTHOR'S ORGANIZ ATION 12/26/2023 [facility] DATE CREATED AUTHOR AUTHOR'S ORGANIZ ATION 01/05/2024 [facility] DATE CREATED AUTHOR AUTHOR'S ORGANIZ ATION 01/19/2024 [facility] DATE CREATED AUTHOR AUTHOR'S ORGANIZ ATION 01/30/2024 [facility] DATE CREATED AUTHOR AUTHOR'S ORGANIZ ATION 01/31/2024 [facility] DATE CREATED AUTHOR AUTHOR'S ORGANIZ ATION 02/06/2024 [facility] DATE CREATED AUTHOR AUTHOR'S ORGANIZ ATION 02/10/2024 [facility] DATE CREATED AUTHOR AUTHOR'S ORGANIZ ATION 02/21/2024 [facility] DATE CREATED AUTHOR AUTHOR'S ORGANIZ ATION 02/25/2024 [facility] DATE CREATED AUTHOR AUTHOR'S ORGANIZ ATION 03/02/2024 [facility] DATE CREATED AUTHOR AUTHOR'S ORGANIZ ATION 03/03/2024 [facility] DATE CREATED AUTHOR AUTHOR'S ORGANIZ ATION 03/04/2024 [facility] DATE CREATED AUTHOR AUTHOR'S ORGANIZ ATION 03/05/2024 [facility] DATE CREATED AUTHOR AUTHOR'S ORGANIZ ATION 03/09/2024 [facility] DATE CREATED AUTHOR AUTHOR'S ORGANIZ ATION 03/10/2024 [facility] DATE CREATED AUTHOR AUTHOR'S ORGANIZ ATION 03/11/2024 [facility] DATE CREATED AUTHOR AUTHOR'S ORGANIZ ATION 03/14/[address] [facility] dical Specialists EPIC Goals (unrecognized section and content) Goals may [...] BE BASED ON THE PRIMARY CLINICAL RECORDS. [employer] provides no warranty or guarantee of the accuracy or completeness of information in this document.
--- NOTE | 2024-03-15 18:05 | PC.NURSE ---
pt sent by dr. denny for chronic left foot ulcer that seems to be getting worse. pt daughter states wound has been draining more and seem to have gotten bigger. Dr. Felix at bedside
--- NOTE | 2024-03-15 18:09 | XR_ITS ---
The [address] [address] Patient Name: JOSÉ LUIS ENRIQUEZ MRN: [id number] date: 1950 Sex: M Assigned Patient Location: ER Current Patient Location: ED.MAIN Accession/Order Number: [id number] Exam Date: 03/15/2024 18:25 Report Date: 03/15/2024 20:53 At the request of: HAIR CRAWFORD Procedure: XR foot FANNY 2V EXAM: XR foot FANNY 2V HISTORY: ulcer and infection COMPARISON: None. TECHNIQUE: 4 views of bilateral feet FINDINGS: Evaluation of the right foot demonstrates no acute fracture. Joint alignment is normal. Soft tissues are preserved. The soft tissues appear unremarkable. Evaluation of the left foot demonstrate extensive internal fixation of the hindfoot and midfoot with grossly normal alignment. Fracture versus surgical disruption of the proximal first metatarsal is seen. The hardware appears intact. No significant periprosthetic lucency seen. Degenerative changes of the midfoot are seen suggestive of neuropathic changes. Chronic osteomyelitis of the midfoot cannot be excluded on this examination. Please note MRI is more sensitive for detection of osteomyelitis. Soft tissue swelling of the left foot is seen. XR/XR foot FANNY 2V IMPRESSION: Degenerative changes of the midfoot are seen suggestive of neuropathic changes. Chronic osteomyelitis of the midfoot cannot be excluded on this examination. Please note MRI is more sensitive for detection of osteomyelitis. Soft tissue swelling of the left foot is seen. Evaluation of the left foot demonstrate extensive internal fixation of the hindfoot and midfoot with grossly normal alignment. Fracture versus surgical disruption of the proximal first metatarsal is seen. Electronically authenticated by: ABBIE HOBSON Date: 03/15/2024 20:53
--- NOTE | 2024-03-15 18:11 | ED.SKABFB1 ---
HPI - Skin/Abscess/Foreign Bdy General Chief complaint: Skin/Abscess/Foreign Body Stated complaint: Wound Check Time Seen by Provider: 03/15/24 18:03 Source: patient and family Mode of arrival: Wheelchair Limitations: no limitations History of Present Illness HPI narrative: The patient presented to us with a ulcer to his left foot also have another laceration developed in his right toe almost a week ago, the daughter at the bedside is concerned about infection and she mentioned that there was some foul smell on the dressing There was no fever or chills and the patient have some pain in the area of the ulcer in his left foot Regarding the patient's right foot the patient have a wound to the right big toe that he sustained a week ago while he was in the shower Related Data Home Medications ?Medication ?Instructions ?Recorded ?Confirmed alprazolam 0.25 mg tablet 0.25 mg PO .Q8 PRN anxiety 11/07/23 03/15/24 amiodarone 200 mg tablet 200 mg PO DAILY 11/07/23 03/15/24 aripiprazole 10 mg tablet 10 mg PO DAILY 11/07/23 03/15/24 aspirin 81 mg capsule 81 mg PO DAILY 11/07/23 03/15/24 atorvastatin 80 mg tablet 80 mg PO DAILY 11/07/23 03/15/24 carbidopa 25 mg-levodopa 100 mg 1.5 tab PO QID 11/07/23 03/15/24 tablet cyanocobalamin (vitamin B-12) 1,000 mcg IM .Q 30 Days 11/07/23 03/15/24 1,000 mcg/mL injection solution enalapril maleate 10 mg tablet 10 mg PO BIDWM 11/07/23 03/15/24 glimepiride 2 mg tablet 1 mg PO DAILY 11/07/23 03/15/24 insulin aspart U-100 100 unit/mL 10 unit subcut .QHS 11/07/23 03/15/24 (3 mL) subcutaneous pen (Novolog FlexPen U-100 Insulin aspart) isosorbide mononitrate 60 mg 60 mg PO DAILY 11/07/23 03/15/24 tablet,extended release 24 hr lamotrigine 200 mg tablet 200 mg PO DAILY 11/07/23 03/15/24 levothyroxine 175 mcg tablet 175 mcg PO QAM 11/07/23 03/15/24 metformin 1,000 mg tablet 1,000 mg PO DAILY 11/07/23 03/15/24 tamsulosin 0.4 mg capsule 0.4 mg PO QAM 11/07/23 11/08/23 torsemide 20 mg tablet 20 mg PO DAILY 11/07/23 11/07/23 trihexyphenidyl 2 mg tablet 2 mg PO DAILY 11/07/23 11/07/23 umeclidinium 62.5 mcg-vilanterol 1 inh inhalation Q24H 11/07/23 11/07/23 25 mcg/actuation powdr for inhalation (Anoro Ellipta) carvedilol 25 mg tablet 25 mg PO BID 11/08/23 03/15/24 cholecalciferol (vitamin D3) 25 1,000 unit PO DAILY 11/08/23 03/15/24 mcg (1,000 unit) capsule (Vitamin D3) coenzyme Q10 100 mg capsule 100 mg PO DAILY 11/08/23 03/15/24 (CoQ-10) insulin aspart U-100 100 unit/mL 2 - 10 sliding scale dose subcut 11/08/23 03/15/24 (3 mL) subcutaneous pen (Novolog ACHS FlexPen U-100 Insulin aspart) magnesium oxide 400 mg PO DAILY 11/08/23 03/15/24 nitroglycerin 0.4 mg sublingual 0.4 mg sublingual Q5M PRN chest 11/08/23 03/15/24 tablet pain warfarin 4 mg tablet 4 mg PO .QD 11/08/23 11/08/23 ciprofloxacin HCl 250 mg tablet 500 mg PO Q24H 03/15/24 03/15/24 (Cipro) Previous Rx's ?Medication ?Instructions ?Recorded oxycodone 5 mg tablet 5 mg PO Q8H PRN pain 7 days #21 11/09/23 tabs cephalexin 500 mg capsule 500 mg PO Q8H 7 days #21 caps 03/15/24 doxycycline hyclate 100 mg capsule 100 mg PO BID 7 days #14 caps 03/15/24 Allergies Allergy/AdvReac Type Severity Reaction Status Date / Time No Known Drug Allergies Allergy Verified 03/15/24 17:54 Review of Systems ROS Status of ROS 10 or more systems reviewed and unremarkable except as noted in history and below [facility] Medical History (Updated 03/15/24 @ 19:14 by Jaz Felix MD) Anemia ?D64.9 - Anemia, unspecified (ICD-10) Type 2 diabetes mellitus with diabetic polyneuropathy ?E11.42 - Type 2 diabetes mellitus with diabetic polyneuropathy (ICD-10) Type 2 diabetes mellitus with foot ulcer ?E11.621 - Type 2 diabetes mellitus with foot ulcer (ICD-10) ?L97.509 - Non-pressure chronic ulcer of other part of unspecified foot with unspecified severity (ICD-10) Ulcer of left foot with fat layer exposed ?L97.522 - Non-pressure chronic ulcer of other part of left foot with fat layer exposed (ICD-10) Diabetic foot ulcer ?E11.621 - Type 2 diabetes mellitus with foot ulcer (ICD-10) ?L97.509 - Non-pressure chronic ulcer of other part of unspecified foot with unspecified severity (ICD-10) Cellulitis of left foot ?L03.116 - Cellulitis of left lower limb (ICD-10) On Coumadin for atrial fibrillation ?I48.91 - Unspecified atrial fibrillation (ICD-10) ?Z79.01 - FPC (current) use of anticoagulants (ICD-10) Hypothyroid ?E03.9 - Hypothyroidism, unspecified (ICD-10) Presence of combination internal cardiac defibrillator (ICD) and pacemaker ?Z95.810 - Presence of automatic (implantable) cardiac defibrillator (ICD-10) Bladder cancer ?C67.9 - Malignant neoplasm of bladder, unspecified (ICD-10) A-fib ?I48.91 - Unspecified atrial fibrillation (ICD-10) Chronic osteomyelitis ?M86.60 - Other chronic osteomyelitis, unspecified site (ICD-10) Asthma ?J45.909 - Unspecified asthma, uncomplicated (ICD-10) COPD (chronic obstructive pulmonary disease) ?J44.9 - Chronic obstructive pulmonary disease, unspecified (ICD-10) Bipolar 1 disorder ?F31.9 - Bipolar disorder, unspecified (ICD-10) HTN (hypertension) ?I10 - Essential (primary) hypertension (ICD-10) Heart attack ?I21.9 - Acute myocardial infarction, unspecified (ICD-10) Diabetes ?E11.9 - Type 2 diabetes mellitus without complications (ICD-10) Dementia ?F03.90 - Unspecified dementia, unspecified severity, without behavioral disturbance, psychotic disturbance, mood disturbance, and anxiety (ICD-10) Parkinsons disease ?G20.A1 - Parkinson's disease without dyskinesia, without mention of fluctuations (ICD-10) Surgical History (Updated 11/07/23 @ 22:44 by Sujata Richards) Hx of CABG ?Z95.1 - Presence of aortocoronary bypass graft (ICD-10) Hx of heart artery stent ?Z95.5 - Presence of coronary angioplasty implant and graft (ICD-10) Family History (Updated 11/07/23 @ 22:48 by Sujata Richards) Other Family history of cancer Family history of diabetes mellitus Family history of hypertension Social History (Updated 11/07/23 @ 22:49 by Sujata Richards) Within the past year, how often did you have a drink containing alcohol: never Within the past year, how many standard drinks containing alcohol did you have on a typical day: 1 or 2 Within the past year, how often did you have six or more drinks on one occasion: never Total score: 0 Score interpretation: A score less than 4 is consistent with normal alcohol consumption. Smoking status: Former smoker Non-prescribed substance use: denies use Previous occupational history: retired Highest level of school completed/degree received: Associate degree: academic program Are you now , , , , never or living with a partner: In a typical week, how many times do you talk on the telephone with family, friends, or neighbors: 3 or more times per week How often do you get together with friends or relatives: 3 or more times per week Little interest or pleasure in doing things: not at all Feeling down, depressed, or hopeless: not at all Feel stressed/tense/nervous/anxious/difficulty sleeping: not at all Do you think of yourself as: straight/heterosexual Gender Identity: male Exam Narrative Exam Narrative: Nurses notes and vital signs reviewed and patient is not hypoxic. Bilateral foot examination: No vascular injury detected but the patient have a redness on the right big toe dorsum just proximal to the nailbed and the patient have healing ulcer at the tip of the big toe The patient also have a ulcer on the sole of the left foot measuring one by one and half centimeter oval in shape the ulcer is stage II looks healing with no signs of infection No redness no tenderness on palpation and the patient have no induration General: Well-appearing and in no apparent distress. Skin: Warm, dry, no pallor noted. No rash. Head: Normocephalic, atraumatic. Neck: Supple, non-tender. Eye: Pupils are equal, round and EOMI. No scleral icterus. Ears, Nose, Mouth, and Throat: TM are clear, no nasal mucosal hypertrophy. Oral mucosa is moist, no posterior oropharynx erythema, uvula is mid-line Cardiovascular: Regular Rate and Rhythm without murmur, gallop or rub. Respiratory: No accessory muscle use or respiratory distress. Lungs are clear to auscultation, no wheezing, rales or rhonchi Chest Wall: no tenderness Back: No midline thoracic or lumbar vertebral tenderness. No CVA tenderness GI: Abdomen is soft, non-distended. Normal bowel sounds. No masses appreciated. No tenderness to palpation. No rebound, guarding, or rigidity noted. Neurological: A&O x4. No cranial nerve dysfunction observed. No truncal ataxia. Moves all extremities. Sensation intact. Psychiatric: Cooperative and interactive. Normal mood and affect. Constitutional Vital Signs, click to edit/add: Last Vital Signs Temp 98.5 F 03/15/24 17:55 Pulse 60 03/15/24 17:55 Resp 18 03/15/24 17:55 BP 157/64 H 03/15/24 17:55 Pulse Ox 95 03/15/24 17:55 O2 Del Method Room Air 03/15/24 17:55 Course Vital Signs Vital signs: Vital Signs Temperature 98.5 F 03/15/24 17:55 Pulse Rate 60 03/15/24 17:55 Respiratory Rate 18 03/15/24 17:55 Blood Pressure 157/64 H 03/15/24 17:55 Pulse Oximetry 95 03/15/24 17:55 Oxygen Delivery Method Room Air 03/15/24 17:55 Temperature 98.5 F 03/15/24 17:55 Pulse Rate 60 03/15/24 17:55 Respiratory Rate 18 03/15/24 17:55 Blood Pressure 157/64 H 03/15/24 17:55 Pulse Oximetry 95 03/15/24 17:55 Oxygen Delivery Method Room Air 03/15/24 17:55 MDM - Skin/Abscess/Foreign Bdy MDM Narrative Medical decision making narrative: The patient presented to us with a chronic ulcer of his left foot but recently had another laceration to the tip of the toe on the right foot Right now it is only significant for very mild cellulitis to the right big toe on the right side and chronic healing ulcer of the left foot The patient chemistry showed no acute pathology and the patient CBC ,, showed no leukocytosis with a ESR elevated but it is at the lower level than the last time he was evaluated with similar test X-ray of the patient lower extremity were pending and they were signed out to Dr Angeles with plan to discharge patient with doxycycline and Keflex The patient was instructed to follow-up with Dr. Ma within few days and to come back in case of any worsening with the instruction to keep monitoring the redness in the right big toe, and to come back to the ER in case of any worsening Lab Data Labs: Lab Results 03/15/24 Range/Units 18:18 WBC 7.4 (4.0-11.0) 10^3/uL RBC 3.00 L (4.70-6.10) 10^6/uL Hgb 8.6 L (14.0-18.0) g/dL Hct 27.9 L (42.0-54.0) % MCV 93.0 (80.0-94.0) fL MCH 28.7 (25.9-34.0) pg MCHC 30.8 (29.9-35.2) g/dL RDW 14.9 (11.0-15.0) % Plt Count 244 (150-450) 10^3/uL MPV 9.1 L (9.5-13.5) fL Neut % (Auto) 72.0 (43.0-75.0) % Lymph % (Auto) 16.7 L (20.5-60.0) % Boyd % (Auto) 7.3 (1.7-12.0) % Eos % (Auto) 2.6 (0.9-7.0) % Baso % (Auto) 0.7 (0.2-2.0) % Neut # (Auto) 5.3 (1.4-6.5) 10^3/uL Lymph # (Auto) 1.2 (1.2-3.8) 10^3/uL Boyd # (Auto) 0.5 (0.3-0.8) 10^3/uL Eos # (Auto) 0.2 (0.0-0.7) 10^3/uL Baso # (Auto) 0.1 (0.0-0.1) 10^3/uL Abs Immat Gran (auto) 0.05 H (0.00-0.03) 10^3/uL Imm/Tot Granulo (auto) 0.7 H (0.0-0.5) % ESR 72 H (<=20) mm/hr Sodium 138 (136-145) mmol/L Potassium 4.6 (3.5-5.1) mmol/L Chloride 103 (98-107) mmol/L Carbon Dioxide 22.2 (21.0-32.0) mmol/L Anion Gap 17.4 BUN 19.0 H (7.0-18.0) mg/dL Creatinine 1.54 H (0.70-1.30) mg/dL Est GFR ( Amer) 54 L (>=60 mL/min/1.73m^2) Est GFR (Non-Af Amer) 44 L (>=60 mL/min/1.73m^2) BUN/Creatinine Ratio 12.3 Glucose 245 H (74-106) mg/dL Calcium 8.6 (8.5-10.1) mg/dL Total Bilirubin 0.5 (0.2-1.0) mg/dL AST 12 L (15-37) U/L ALT 9 L (16-63) U/L Alkaline Phosphatase 113 (46-116) U/L C-Reactive Protein <0.50 (<=0.50) mg/dL Total Protein 6.8 (6.4-8.2) g/dL Albumin 3.0 L (3.4-5.0) g/dL Globulin 3.8 g/dL Albumin/Globulin Ratio 0.8 Discharge Plan Discharge Chief Complaint: Skin/Abscess/Foreign Body Clinical Impression: Foot ulcer, Cellulitis Patient Disposition: Home, Self-Care Time of Disposition Decision: 19:14 Condition: Good Mode of Transportation: Private Vehicle Prescriptions / Home Meds: New cephalexin 500 mg capsule 500 mg PO Q8H 7 Days Qty: 21 0RF doxycycline hyclate 100 mg capsule 100 mg PO BID 7 Days Qty: 14 0RF No Action alprazolam 0.25 mg tablet 0.25 mg PO .Q8 PRN (Reason: anxiety) amiodarone 200 mg tablet 200 mg PO DAILY aripiprazole 10 mg tablet 10 mg PO DAILY atorvastatin 80 mg tablet 80 mg PO DAILY Patient Comments: takes at dinner carbidopa-levodopa 25-100 mg tablet 1.5 tab PO QID Patient Comments: 0800,1200,1600,2000 cyanocobalamin (vitamin B-12) 1,000 mcg/mL solution 1,000 mcg IM .Q 30 Days enalapril maleate 10 mg tablet 10 mg PO BIDWM glimepiride 2 mg tablet 1 mg PO DAILY insulin aspart U-100 [Novolog FlexPen U-100 Insulin] 100 unit/mL (3 mL) insulin pen 10 unit SUBCUT .QHS isosorbide mononitrate 60 mg tablet extended release 24 hr 60 mg PO DAILY lamotrigine 200 mg tablet 200 mg PO DAILY levothyroxine 175 mcg tablet 175 mcg PO QAM metformin 1,000 mg tablet 1,000 mg PO DAILY tamsulosin 0.4 mg capsule 0.4 mg PO QAM torsemide 20 mg tablet 20 mg PO DAILY trihexyphenidyl 2 mg tablet 2 mg PO DAILY Patient Comments: at dinner Anoro Ellipta 62.5-25 mcg/actuation blister with device 1 inh INHALATION Q24H aspirin 81 mg capsule 81 mg PO DAILY carvedilol 25 mg tablet 25 mg PO BID warfarin 4 mg tablet 4 mg PO .QD Rx Instructions: VO DR TAMAR Duron [facility] TO DOSE cholecalciferol (vitamin D3) [Vitamin D3] 25 mcg (1,000 unit) capsule 1,000 unit PO DAILY coenzyme Q10 [CoQ-10] 100 mg capsule 100 mg PO DAILY magnesium oxide 400 mg magnesium tablet 400 mg PO DAILY nitroglycerin 0.4 mg tablet, sublingual 0.4 mg sublingual Q5M PRN (Reason: chest pain) Rx Instructions: do not exceed 3 doses per episode insulin aspart U-100 [Novolog FlexPen U-100 Insulin] 100 unit/mL (3 mL) insulin pen 2 - 10 sliding scale dose subcut ACHS oxycodone 5 mg tablet 5 mg PO Q8H PRN (Reason: pain) 7 Days Qty: 21 0RF ciprofloxacin HCl [Cipro] 250 mg tablet 500 mg PO Q24H Print Language: Trinidadian Instructions: Cellulitis (ED) Referrals: JANET PAEZ [Primary Care Provider] - 1 week Jude Ma DPM [Physician] - As soon as possible Discharge Date/Time: 03/15/24 21:22
[2024-03-15 18:35] LABS: Basophils Absolute Auto 0.1 10^3/uL (0.0-0.1); Basophils Percent Auto 0.7 % (0.2-2.0); Eosinophils Absolute Auto 0.2 10^3/uL (0.0-0.7); Eosinophils Percent Auto 2.6 % (0.9-7.0); Hematocrit 27.9 % (42.0-54.0); Hemoglobin 8.6 g/dL (14.0-18.0); Immature Granulocytes Abs Auto 0.05 10^3/uL (0.00-0.03); Immature Granulocytes Pct Auto 0.7 % (0.0-0.5); Lymphocytes Absolute Auto 1.2 10^3/uL (1.2-3.8); Lymphocytes Percent Auto 16.7 % (20.5-60.0); Mean Corpuscular HGB Conc 30.8 g/dL (29.9-35.2); Mean Corpuscular Hemoglobin 28.7 pg (25.9-34.0); Mean Platelet Volume 9.1 fL (9.5-13.5); Monocytes Absolute Auto 0.5 10^3/uL (0.3-0.8); Monocytes Percent Auto 7.3 % (1.7-12.0); Neutrophils Absolute Auto 5.3 10^3/uL (1.4-6.5); Platelet Count 244 10^3/uL (150-450); Red Cell Distribution Width 14.9 % (11.0-15.0); White Blood Count 7.4 10^3/uL (4.0-11.0)
[2024-03-15 18:43] LABS: C Reactive Protein <0.50 mg/dL (<=0.50)
[2024-03-15 18:48] LABS: Alanine Aminotransferase 9 U/L (16-63); Albumin Globulin Ratio 0.8; Alkaline Phosphatase 113 U/L (46-116); Anion Gap 17.4; Aspartate Amino Transferase 12 U/L (15-37); BUN Creatinine Ratio 12.3; Bilirubin Total 0.5 mg/dL (0.2-1.0); Calcium 8.6 mg/dL (8.5-10.1); Carbon Dioxide 22.2 mmol/L (21.0-32.0); Chloride 103 mmol/L (98-107); Estimated GFR (African America 54 (>=60 mL/min/1.73m^2); Estimated GFR (Non-African Ame 44 (>=60 mL/min/1.73m^2); Globulin 3.8 g/dL; Glucose 245 mg/dL (74-106); Potassium 4.6 mmol/L (3.5-5.1); Sodium 138 mmol/L (136-145); Total Protein 6.8 g/dL (6.4-8.2)
[2024-03-15 19:09] LABS: Erythrocyte Sedimentation Rate 72 mm/hr (<=20)
[2024-03-15] MEDS: CEPHALEXIN 500 MG CAPSULE PO (19:59)
[2024-03-15] MEDS: DOXYCYCLINE MONOHYDRATE 100 MG CAPSULE PO (19:59)
--- NOTE | 2024-03-15 20:56 | ED_ITS ---
HPI HPI - General Adult General Chief complaint: Skin/Abscess/Foreign Body Stated complaint: Wound Check Time Seen by Provider: 03/15/24 18:03 Source: patient and family Mode of arrival: Wheelchair Limitations: no limitations History of Present Illness HPI narrative: The patient was initially seen by Dr. Felix and signed out to me after discussing the case with her thoroughly. Please see her full history and physical exam. Related Data Home Medications ?Medication ?Instructions ?Recorded ?Confirmed alprazolam 0.25 mg tablet 0.25 mg PO .Q8 PRN anxiety 11/07/23 03/15/24 amiodarone 200 mg tablet 200 mg PO DAILY 11/07/23 03/15/24 aripiprazole 10 mg tablet 10 mg PO DAILY 11/07/23 03/15/24 aspirin 81 mg capsule 81 mg PO DAILY 11/07/23 03/15/24 atorvastatin 80 mg tablet 80 mg PO DAILY 11/07/23 03/15/24 carbidopa 25 mg-levodopa 100 mg 1.5 tab PO QID 11/07/23 03/15/24 tablet cyanocobalamin (vitamin B-12) 1,000 mcg IM .Q 30 Days 11/07/23 03/15/24 1,000 mcg/mL injection solution enalapril maleate 10 mg tablet 10 mg PO BIDWM 11/07/23 03/15/24 glimepiride 2 mg tablet 1 mg PO DAILY 11/07/23 03/15/24 insulin aspart U-100 100 unit/mL 10 unit subcut .QHS 11/07/23 03/15/24 (3 mL) subcutaneous pen (Novolog FlexPen U-100 Insulin aspart) isosorbide mononitrate 60 mg 60 mg PO DAILY 11/07/23 03/15/24 tablet,extended release 24 hr lamotrigine 200 mg tablet 200 mg PO DAILY 11/07/23 03/15/24 levothyroxine 175 mcg tablet 175 mcg PO QAM 11/07/23 03/15/24 metformin 1,000 mg tablet 1,000 mg PO DAILY 11/07/23 03/15/24 tamsulosin 0.4 mg capsule 0.4 mg PO QAM 11/07/23 11/08/23 torsemide 20 mg tablet 20 mg PO DAILY 11/07/23 11/07/23 trihexyphenidyl 2 mg tablet 2 mg PO DAILY 11/07/23 11/07/23 umeclidinium 62.5 mcg-vilanterol 1 inh inhalation Q24H 11/07/23 11/07/23 25 mcg/actuation powdr for inhalation (Anoro Ellipta) carvedilol 25 mg tablet 25 mg PO BID 11/08/23 03/15/24 cholecalciferol (vitamin D3) 25 1,000 unit PO DAILY 11/08/23 03/15/24 mcg (1,000 unit) capsule (Vitamin D3) coenzyme Q10 100 mg capsule 100 mg PO DAILY 11/08/23 03/15/24 (CoQ-10) insulin aspart U-100 100 unit/mL 2 - 10 sliding scale dose subcut 11/08/23 03/15/24 (3 mL) subcutaneous pen (Novolog ACHS FlexPen U-100 Insulin aspart) magnesium oxide 400 mg PO DAILY 11/08/23 03/15/24 nitroglycerin 0.4 mg sublingual 0.4 mg sublingual Q5M PRN chest 11/08/23 03/15/24 tablet pain warfarin 4 mg tablet 4 mg PO .QD 11/08/23 11/08/23 ciprofloxacin HCl 250 mg tablet 500 mg PO Q24H 03/15/24 03/15/24 (Cipro) Previous Rx's ?Medication ?Instructions ?Recorded oxycodone 5 mg tablet 5 mg PO Q8H PRN pain 7 days #21 11/09/23 tabs cephalexin 500 mg capsule 500 mg PO Q8H 7 days #21 caps 03/15/24 doxycycline hyclate 100 mg capsule 100 mg PO BID 7 days #14 caps 03/15/24 Allergies Allergy/AdvReac Type Severity Reaction Status Date / Time No Known Drug Allergies Allergy Verified 03/15/24 17:54 Opioid HPI Opioid Management Most Recent Opioid Data: Last ORT Total Score 0 11/07/23 22:27 11/07/23 Last ORT Risk Category Low Risk 11/07/23 22:27 11/07/23 [facility] Medical History (Updated 03/15/24 @ 19:14 by Jaz Felix MD) Anemia ?D64.9 - Anemia, unspecified (ICD-10) Type 2 diabetes mellitus with diabetic polyneuropathy ?E11.42 - Type 2 diabetes mellitus with diabetic polyneuropathy (ICD-10) Type 2 diabetes mellitus with foot ulcer ?E11.621 - Type 2 diabetes mellitus with foot ulcer (ICD-10) ?L97.509 - Non-pressure chronic ulcer of other part of unspecified foot with unspecified severity (ICD-10) Ulcer of left foot with fat layer exposed ?L97.522 - Non-pressure chronic ulcer of other part of left foot with fat layer exposed (ICD-10) Diabetic foot ulcer ?E11.621 - Type 2 diabetes mellitus with foot ulcer (ICD-10) ?L97.509 - Non-pressure chronic ulcer of other part of unspecified foot with unspecified severity (ICD-10) Cellulitis of left foot ?L03.116 - Cellulitis of left lower limb (ICD-10) On Coumadin for atrial fibrillation ?I48.91 - Unspecified atrial fibrillation (ICD-10) ?Z79.01 - MCC (current) use of anticoagulants (ICD-10) Hypothyroid ?E03.9 - Hypothyroidism, unspecified (ICD-10) Presence of combination internal cardiac defibrillator (ICD) and pacemaker ?Z95.810 - Presence of automatic (implantable) cardiac defibrillator (ICD-10) Bladder cancer ?C67.9 - Malignant neoplasm of bladder, unspecified (ICD-10) A-fib ?I48.91 - Unspecified atrial fibrillation (ICD-10) Chronic osteomyelitis ?M86.60 - Other chronic osteomyelitis, unspecified site (ICD-10) Asthma ?J45.909 - Unspecified asthma, uncomplicated (ICD-10) COPD (chronic obstructive pulmonary disease) ?J44.9 - Chronic obstructive pulmonary disease, unspecified (ICD-10) Bipolar 1 disorder ?F31.9 - Bipolar disorder, unspecified (ICD-10) HTN (hypertension) ?I10 - Essential (primary) hypertension (ICD-10) Heart attack ?I21.9 - Acute myocardial infarction, unspecified (ICD-10) Diabetes ?E11.9 - Type 2 diabetes mellitus without complications (ICD-10) Dementia ?F03.90 - Unspecified dementia, unspecified severity, without behavioral disturbance, psychotic disturbance, mood disturbance, and anxiety (ICD-10) Parkinsons disease ?G20.A1 - Parkinson's disease without dyskinesia, without mention of fluctuations (ICD-10) Surgical History (Updated 11/07/23 @ 22:44 by Sujata Richards) Hx of CABG ?Z95.1 - Presence of aortocoronary bypass graft (ICD-10) Hx of heart artery stent ?Z95.5 - Presence of coronary angioplasty implant and graft (ICD-10) Family History (Updated 11/07/23 @ 22:48 by Sujata Richards) Other Family history of cancer Family history of diabetes mellitus Family history of hypertension Social History (Updated 11/07/23 @ 22:49 by Sujata Richards) Within the past year, how often did you have a drink containing alcohol: never Within the past year, how many standard drinks containing alcohol did you have on a typical day: 1 or 2 Within the past year, how often did you have six or more drinks on one occasion: never Total score: 0 Score interpretation: A score less than 4 is consistent with normal alcohol consumption. Smoking status: Former smoker Non-prescribed substance use: denies use Previous occupational history: retired Highest level of school completed/degree received: Associate degree: academic program Are you now , , , , never or living with a partner: In a typical week, how many times do you talk on the telephone with family, friends, or neighbors: 3 or more times per week How often do you get together with friends or relatives: 3 or more times per week Little interest or pleasure in doing things: not at all Feeling down, depressed, or hopeless: not at all Feel stressed/tense/nervous/anxious/difficulty sleeping: not at all Do you think of yourself as: straight/heterosexual Gender Identity: male Exam Constitutional Vital Signs, click to edit/add: Last Vital Signs Temp 98.5 F 03/15/24 17:55 Pulse 60 03/15/24 17:55 Resp 18 03/15/24 17:55 BP 157/64 H 03/15/24 17:55 Pulse Ox 95 03/15/24 17:55 O2 Del Method Room Air 03/15/24 17:55 Course Vital Signs Vital signs: Vital Signs Temperature 98.5 F 03/15/24 17:55 Pulse Rate 60 03/15/24 17:55 Respiratory Rate 18 03/15/24 17:55 Blood Pressure 157/64 H 03/15/24 17:55 Pulse Oximetry 95 03/15/24 17:55 Oxygen Delivery Method Room Air 03/15/24 17:55 Temperature 98.5 F 03/15/24 17:55 Pulse Rate 60 03/15/24 17:55 Respiratory Rate 18 03/15/24 17:55 Blood Pressure 157/64 H 03/15/24 17:55 Pulse Oximetry 95 03/15/24 17:55 Oxygen Delivery Method Room Air 03/15/24 17:55 Medical Decision Making MDM Narrative Medical decision making narrative: X-ray findings are discussed with the patient and family and he will follow-up with the podiatry promptly and was prescribed antibiotics by Dr. Felix. Lab Data Lab results reviewed: Yes I reviewed the patient's lab results Labs: Lab Results 03/15/24 Range/Units 18:18 WBC 7.4 (4.0-11.0) 10^3/uL RBC 3.00 L (4.70-6.10) 10^6/uL Hgb 8.6 L (14.0-18.0) g/dL Hct 27.9 L (42.0-54.0) % MCV 93.0 (80.0-94.0) fL MCH 28.7 (25.9-34.0) pg MCHC 30.8 (29.9-35.2) g/dL RDW 14.9 (11.0-15.0) % Plt Count 244 (150-450) 10^3/uL MPV 9.1 L (9.5-13.5) fL Neut % (Auto) 72.0 (43.0-75.0) % Lymph % (Auto) 16.7 L (20.5-60.0) % Harrison % (Auto) 7.3 (1.7-12.0) % Eos % (Auto) 2.6 (0.9-7.0) % Baso % (Auto) 0.7 (0.2-2.0) % Neut # (Auto) 5.3 (1.4-6.5) 10^3/uL Lymph # (Auto) 1.2 (1.2-3.8) 10^3/uL Harrison # (Auto) 0.5 (0.3-0.8) 10^3/uL Eos # (Auto) 0.2 (0.0-0.7) 10^3/uL Baso # (Auto) 0.1 (0.0-0.1) 10^3/uL Abs Immat Gran (auto) 0.05 H (0.00-0.03) 10^3/uL Imm/Tot Granulo (auto) 0.7 H (0.0-0.5) % ESR 72 H (<=20) mm/hr Sodium 138 (136-145) mmol/L Potassium 4.6 (3.5-5.1) mmol/L Chloride 103 (98-107) mmol/L Carbon Dioxide 22.2 (21.0-32.0) mmol/L Anion Gap 17.4 BUN 19.0 H (7.0-18.0) mg/dL Creatinine 1.54 H (0.70-1.30) mg/dL Est GFR ( Amer) 54 L (>=60 mL/min/1.73m^2) Est GFR (Non-Af Amer) 44 L (>=60 mL/min/1.73m^2) BUN/Creatinine Ratio 12.3 Glucose 245 H (74-106) mg/dL Calcium 8.6 (8.5-10.1) mg/dL Total Bilirubin 0.5 (0.2-1.0) mg/dL AST 12 L (15-37) U/L ALT 9 L (16-63) U/L Alkaline Phosphatase 113 (46-116) U/L C-Reactive Protein <0.50 (<=0.50) mg/dL Total Protein 6.8 (6.4-8.2) g/dL Albumin 3.0 L (3.4-5.0) g/dL Globulin 3.8 g/dL Albumin/Globulin Ratio 0.8 Imaging Data Bilateral foot x-rays: Radiologist's impression: ITS Impressions Foot X-Ray 03/15/24 18:09 IMPRESSION: Degenerative changes of the midfoot are seen suggestive of neuropathic changes. Chronic osteomyelitis of the midfoot cannot be excluded on this examination. Please note MRI is more sensitive for detection of osteomyelitis. Soft tissue swelling of the left foot is seen. Evaluation of the left foot demonstrate extensive internal fixation of the hindfoot and midfoot with grossly normal alignment. Fracture versus surgical disruption of the proximal first metatarsal is seen. Electronically authenticated by: ABBIE HOBSON Date: 03/15/2024 20:53 Discharge Plan Discharge Chief Complaint: Skin/Abscess/Foreign Body Clinical Impression: Foot ulcer, Cellulitis Patient Disposition: Home, Self-Care Time of Disposition Decision: 19:14 Condition: Good Mode of Transportation: Private Vehicle Prescriptions / Home Meds: New cephalexin 500 mg capsule 500 mg PO Q8H 7 Days Qty: 21 0RF doxycycline hyclate 100 mg capsule 100 mg PO BID 7 Days Qty: 14 0RF No Action alprazolam 0.25 mg tablet 0.25 mg PO .Q8 PRN (Reason: anxiety) amiodarone 200 mg tablet 200 mg PO DAILY aripiprazole 10 mg tablet 10 mg PO DAILY atorvastatin 80 mg tablet 80 mg PO DAILY Patient Comments: takes at dinner carbidopa-levodopa 25-100 mg tablet 1.5 tab PO QID Patient Comments: 0800,1200,1600,2000 cyanocobalamin (vitamin B-12) 1,000 mcg/mL solution 1,000 mcg IM .Q 30 Days enalapril maleate 10 mg tablet 10 mg PO BIDWM glimepiride 2 mg tablet 1 mg PO DAILY insulin aspart U-100 [Novolog FlexPen U-100 Insulin] 100 unit/mL (3 mL) insulin pen 10 unit SUBCUT .QHS isosorbide mononitrate 60 mg tablet extended release 24 hr 60 mg PO DAILY lamotrigine 200 mg tablet 200 mg PO DAILY levothyroxine 175 mcg tablet 175 mcg PO QAM metformin 1,000 mg tablet 1,000 mg PO DAILY tamsulosin 0.4 mg capsule 0.4 mg PO QAM torsemide 20 mg tablet 20 mg PO DAILY trihexyphenidyl 2 mg tablet 2 mg PO DAILY Patient Comments: at dinner Anoro Ellipta 62.5-25 mcg/actuation blister with device 1 inh INHALATION Q24H aspirin 81 mg capsule 81 mg PO DAILY carvedilol 25 mg tablet 25 mg PO BID warfarin 4 mg tablet 4 mg PO .QD Rx Instructions: TIBURCIO Duron [facility] TO DOSE cholecalciferol (vitamin D3) [Vitamin D3] 25 mcg (1,000 unit) capsule 1,000 unit PO DAILY coenzyme Q10 [CoQ-10] 100 mg capsule 100 mg PO DAILY magnesium oxide 400 mg magnesium tablet 400 mg PO DAILY nitroglycerin 0.4 mg tablet, sublingual 0.4 mg sublingual Q5M PRN (Reason: chest pain) Rx Instructions: do not exceed 3 doses per episode insulin aspart U-100 [Novolog FlexPen U-100 Insulin] 100 unit/mL (3 mL) insulin pen 2 - 10 sliding scale dose subcut ACHS oxycodone 5 mg tablet 5 mg PO Q8H PRN (Reason: pain) 7 Days Qty: 21 0RF ciprofloxacin HCl [Cipro] 250 mg tablet 500 mg PO Q24H Print Language: Latvian Instructions: Cellulitis (ED) Referrals: JANET PAEZ [Primary Care Provider] - 1 week Jude Ma DPM [Physician] - As soon as possible
== END 2024-03-15 21:22 | disposition home or self-care (01) ==
PROVIDERS: Emergency Medicine; Emergency Provider Emergency Medicine; PCP Student in an Organized Health Care Education/Training Program
DX: L97.529 Non-pressure chronic ulcer of other part of left foot with unspecified severity (principal); L03.031 Cellulitis of right toe; Z87.891 Personal history of nicotine dependence
CPT/HCPCS: 36415; 73620; 80053; 85025; 85652; 86140; 99284

== ENCOUNTER 2024-03-17 14:29 | Outpatient (OUT) | payer MEDICARE, SELFPAY | END 2024-03-17 14:30 | disposition home or self-care (01) | LOC: WC 14:30 | PROVIDERS: PCP Student in an Organized Health Care Education/Training Program; Visit Provider Podiatrist Foot & Ankle Surgery | DX: E11.621 Type 2 diabetes mellitus with foot ulcer (principal); L97.422 Non-pressure chronic ulcer of left heel and midfoot with fat layer exposed; L97.512 Non-pressure chronic ulcer of other part of right foot with fat layer exposed | CPT/HCPCS: 11043; 29445 ==

== ENCOUNTER 2024-03-21 11:54 | Outpatient (OUT) | payer MEDICARE, SELFPAY ==
--- OUTSIDE RECORDS SUMMARY | 2024-03-21 12:00 | XMS_ITS | CCD ---
Author Organization [facility] Care Team Providers Care Thread Cutter Name Role Phone Unavailable Unavailable Mona Baker Unavailable Mona Baker MD Primary Care Provider [phone] Mona Baker Primary Care Physician [phone] Luna Frank Unavailable Unavailable January Bravo Unavailable Unavailable Giselle Kelly Unavailable Unavailable Mona Baker MD Primary Care Provider Janusz Ruiz Unavailable MD Mona Baker Primary Care Provider Unavaila MD Janusz Contreras Emergency Provider DO Janusz Davidson Admit Provider [phone] DO Janusz Davidson Attending Provider [phone] MD Bill Mcgee Other Provider [phone] MD Andi Ware Attending Provider DO [...] Admitting Unavailable JOHN PAUL PRINCE Attending Unavailable OLIVIA, RICHMOND Primary Care Unavailable ENOC BACA Consulting Unavailable HIGHLANDER, JOHN PAUL James Consulting Unavailable HIGHLANDER, JOHN PAUL James Admitting Unavailable HIGHLANDER, JOHN PAUL James Attending Unavailable OLIVIA, [facility] Care Unavailable HIGHLANDER, JOHN PAUL James Admitting Unavailable OLIVIA, [facility] Care Unavailable HIGHLANDER, JOHN PAUL James Attending Unavailable HIGHLANDER, JOHN PAUL James Admitting Unavailable HIGHLANDER, JOHN PAUL James Attending Unavailable OLIVIA, [facility] Care Unavailable HIGHLANDER, JOHN PAUL James Admitting Unavailable HIGHLANDER, JOHN PAUL James Attending Unavailable OLIVIA, [facility] Unavailable ZIEBER, DR TERRY Caputo Consulting Unavailable HIGHLANDER, JOHN PAUL James Consulting Unavailable HIGHLANDER, JOHN PAUL James Admitting Unavailable OLIVIA, [facility] Care Unavailable HIGHLANDER, JOHN PAUL James Attending Unavailable HIGHLANDER, JOHN PAUL James Admitting Unavailable OLIVIA, [facility] Care Unavailable HIGHLANDER, JOHN PAUL James Attending Unavailable HIGHLANDER, JOHN PAUL James Admitting Unavailable HIGHLANDER, JOHN PAUL James Attending Unavailable OLIVIA, [facility] Care Unavailable HIGHLANDER, JOHN PAUL James Admitting Unavailable HIGHLANDER, JOHN PAUL James Attending Unavailable OLIVIA, [facility] Care Unavailable HIGHLANDER, JOHN PAUL James Admitting Unavailable HIGHLANDER, JOHN PAUL James Attending Unavailable OLIVIA, [facility] Unavailable [facility]ARE[facility], JOHN PAUL James Admitting Unavailable [facility] HEALTHCARE[facility]ER, JOHN PAUL James Attending Unavailable OLIVIA, [facility] Unavailable ZIEBER, DR TERRY Caputo Consulting Unavailable HIGHLANDER, JOHN PAUL James Consulting [facility] [phone] Olivia, Dr. Mona Jules Primary Care Unavail [...] Milligan Attending Unavailable Felipa Milligan Referring Unavailable Felipa Milligan Referring Unavailable Olivia, Dr. Mona Jules Primary Care Unavail able Felipa Milligan Attending Unavailable Olivia Mona BROUSSARD Primary Care Provider Sergio JACKN-WIRELESS WATCHER, Elly J Unavailable MD Olivia [place] Primary Care Provider Unavaila MD Cayden Quinn Emergency Provider MD Mona Baker Primary Care Provider [phone] MD Cayden Petty Emergency Provider MD Bill Mcgee Attending Provider [phone] KEISHA BRAMBILA Attending Unavailable OLIVIA, JOPPA Primary Care Unavailable KEISHA BRAMBILA Attending Unavailable OLIVIA, JOPPA Primary Care Unavailable Mona Baker MD Jane Primary Care Provider Olivia BROUSSARD [facility] Care Provider MD Olivia [place] Primary Care Provider HOA Prince Attending Provider [phone] Olivia, Mona Primary Care Unavailable Bill Mcgee Admitting Unavailable Bill Mcgee Attending Unavailable Olivia, [place] Primary Care Unavailable Cayden Petty Admitting Unavailable Cayden Petty Attending Unavailable John Paul Prince Admitting Unavailable John Paul Prince Attending Unavailable Olivia, Mona Primary Care Unavailable Armani Yarbrough Attending Unavailable Diggs, Basem G. Referring Unavailable Diggs, Basem G. Attending Unavailable Diggs, Basem GOri Admitting Unavailable MD Olivia Mona [...] Attending Unavailable OLIVIA, MONA Primary Care Unavailable NONE, XXXX Referring Unavailable Nicolás Diggs GOri Attending Unavailable Andi WARE Admitting Unavailable Andi WARE Attending Unavailable Andi WARE Referring Unavailable DiggsNicolás G. Referring Unavailable DiggsNicolás james G. Attending Unavailable Annemarie Tony Attending Unavailable MD [...] OLIVIA, MONA JANE Primary Care Unavailable MILLIGANFELIPA M Attending Unavailable JEREMÍAS MIMS Referring Unavailable OLIVIA, MONA JANE Primary Care Unavailable MILLIGAN, FELIPA M Referring Unavailable OLIVIA, MONA JANE Primary Care Unavailable ABEBA PETTY Attending Unavailable MILLIGANFELIPA Attending Unavailable MILLIGANFELIPA M Referring Unavailable OLIVIA, MONA JANE Primary Care Unavailable OLIVIAMONA Attending Unavailable RUSPRINCESS LARSON Attending Unavailable OLIVIAMONA Attending Unavailable RUSPRINCESS LARSON Attending Unavailable OLIVIAMONA Attending Unavailable OLIVIAMONA Attending Unavailable PRINCESS DOS SANTOS Attending Unavailable OLIVIAMONA Referring Unavailable OLIVIA, MONA Ward Attending Unavailable RUSPRINCESS LARSON Attending Unavailable OLIVIAMONA Attending Unavailable MICAELA TIWARI Attending Unavailable OLIVIAMONA Attending Unavailable CHAYO FERNANDEZ Attending Unavailable Milligan, Leo Admitting Unavailable Milligan, Leo Attending Unavailable OliviaMona Admitting Unavailable Olivia, Mona M Attending Unavailable WARE, Adni R Referring Unavailable WARE, Andi R Attending Unavailable Adamowicz, Armani Admitting Unavailable Adamowicz, Armani Attending Unavailable Blank, Janusz S Admitting Unavailable Blank, Janusz S Attending Unavailable Blank, Janusz S Admitting Unavailable Blank, Janusz S Attending Unavailable Blank, Janusz S Admitting Unavailable Blank, Janusz S Attending Unavailable JOSE, Olaf Attending Unavailable Rosi Mendez Admitting Unavailable Adamowicz, Armani Attending Unavailable Adamowicz, Armani Attending Unavailable Adamowicz, Armani Attending Unavailable Nicolás Diggs Attending Unavailable NONE, XXXX Referring Unavailable WARE, Andi R Referring Unavailable WARE, Andi R Admitting Unavailable WARE, Andi R Attending Unavailable Justi, ACNP January Admitting Unavailable Justi, ACNP January Attending Unavailable Justi, ACNP January Referring Unavailable Milligan, Leo Admitting Unavailable Milligan, Leo Attending Unavailable Danna, Leo Referring Unavailable Jeremías Mims Admitting Unavailable Jeremías Mims Attending Unavailable Jeremías Mims Referring Unavailable Allergies Allergy Classification Reported Allergen(s) Allergy Type Date of Onset Reaction(s) Facility (8 sources) Piperacillin / tazobactam; Translations: [PIPERACILLIN-TA ZOBACTAM] Drug Allergy 1 GI Intolerance [facility] (1 source) Piperacillin / tazobactam Drug Allergy 1 [facility] (2 sources) Piperacillin / tazobactam Drug Allergy 1 [facility] (6 sources) Piperacillin Sod-Tazobactam So Drug Intolerance 1 [facility] Healthcare Medications Current Medications Medication Drug Class(es) [...] for mild pain (1 - 3). Active [id number] 200 actuat albuterol 0.09 mg/actuat metered dose [...] mL, Inhalation, QID, 1 EA, Refill(s) 0, [facility], 172.7, cm, 03/09/23 15:05:00 [...] Start: 03-15-2021 take 2 tablets by mo uth twice daily Amiodarone HCl - 200 MG Oral Tablet TAKE 2 TABLETS TWO TIMES DAILY Quantity: 120 Refills: 5 Ordered: 15-Mar-2021 Felipa Milligan MD Start : 15-Mar-2021 Active take 3 tablets by [facility] once daily amiodarone (Pacerone) 100 MG tablet [...] 3:53pm Start: 11-03-2020 take 1 capsule by [facility] twice daily amoxicillin 500 mg Cap 500 mg = 1 cap(s), Oral, BID, Dr. Ruiz, Refills(s) 0 Start Date: 02/22/22 Status: Ordered Start: 11-03-2020 Amoxicillin 50 0 MG Oral Capsule Quantity: 180 Refills: 0 Ordered: 25-Feb-2021 DO Start : 03-Nov-2020 Active take 1 tablet by [facility] once daily amoxicillin (Amoxil) 500 MG tablet Take 500 mg by mouth daily. 0 Active Anoro Ellipta 62.5 mcg-25 mc g inhalation powder (20 sources) Start: 04-09-2023 End: 10-06-2023 Anoro Ellipta 62.5 mcg-25 mc g inhalation powder 1 inh, Inhalation, Daily for 30 day(s), 30 blister(s), Refill(s) 5, [facility], 177, cm, 04/09/23 9:40:00 EST, Height/Length Dosing, 99.6, kg, 04/09/23 9:40:00 EST, Weight Dosing Start Date: 04/09/23 Stop Date: 10/06/23 Status: Ordered Start: 03-31-2022 End: 09-27-2022 Anoro Ellipta 62.5 mcg-25 mc g inhalation powder 1 inh, Inhalation, Daily for 30 day(s), 1 packet(s), Refill(s) 5, [facility], 178, cm, 03/31/22 9:44:00 EDT, Height/Length Dosing, 104.5, kg, 03/31/22 9:44:00 EDT, Weight Dosing Start Date: 03/31/22 Stop Date: 09/27/22 Status: Ordered Start: 08-03-2021 Anoro Ellipta 62.5 mcg-25 mcg inhalation powder 1 inh, Inhalation, Daily, 30 blister(s), Refill(s) 5, [facility], 178, cm, 08/03/21 11:33:00 EST, Height/Length Dosing, 102.7, kg, 08/03/21 11:33:00 EST, Weight Dosing Start Date: 08/03/21 Status: Ordered Start: 08-03-2021 End: 01-30-2022 Anoro Ellipta 62.5 mcg-25 mc g inhalation powder 1 inh, Inhalation, Daily for 30 day(s), 30 blister(s), Refill(s) 5, [facility], 178, cm, 08/03/21 11:33:00 [...] sources) Atypical Antipsychotic Start: 09-25-19 End: 01-29-20 24 take 1 tablet by mouth once daily ARIPiprazole (Abilify) 10 MG tablet Indications: Bipolar 1 disorder (CMS/HCC) Take 1 tablet (10 mg) by mouth Daily 30 tablet 09/25/2023 Active Start: 02-11-2022 take 2 tablets by [facility] once daily aripiprazole 5 mg Tab 10 [...] BID, # 120 tab(s), Refills(s) 0, Pharmacy: [facility], 172, cm, 07/17/21 14:15:00 [...] Ciprofloxacin Hcl Active 500 MG PO Daily 30 December 26, 2023 12:43pm Start: 11-26-2023 End: 11-26-2023 Ciprofloxacin Hcl Discontinu ed 250 MG PO November 26, 2023 12:00am November 26, 2023 4:07pm Start: 11-26-2023 End: 12-26-2023 take 500 mg by mouth twice daily Ciprofloxacin Hcl Discontinued 500 MG PO Twice daily November 26, 2023 12:00am December 26, 2023 12:43pm Start: 03-23-2022 take 1 tablet by lashawn once daily Cipro 500 mg Tab 500 mg = 1 tab(s), Oral, Daily, Take 1 tablet the day before the procedure and 1 tablet after the procedure, # 2 tab(s), Refills(s) 0, Pharmacy: [facility], 177, cm, 05/02/22 10:41:00 EST, Height/Length Dosing, 104.5, kg, 03/31/22 9:44:00 E... Start Date: 05/03/22 Status: Ordered Co-Q10 100 mg oral capsule (20 sources) Start: 12-07-2019 take 1 capsule by mouth once daily Co-Q10 100 mg oral capsule 100 mg = 1 cap(s), Oral, Daily, Refills(s) 0 Start Date: 12/07/19 Status: Ordered Coenzyme A33-Iahwanq E (CoQ10 ST-100) 100-100 MG-UNIT capsule (2 sources) Coenzyme O01-Mkafcrq E (CoQ10 ST-100) 100-100 MG-UNIT capsule Take 100 mg by mouth daily. 0 Active Continuous Blood Gluc Sensor (FreeStyle Sunny 2 Sensor) misc (6 sources) Start: 06-05-2023 Continuous Blo od Gluc Sensor (FreeStyle Sunny 2 Sensor[place] [facility] [place]: Type 2 diabetes mellitus without complication, without long-term current use of insulin ([facility]) 1 each every 14 (fourteen) days [...] Daily, # 90 tab(s), Refills(s) 0, Pharmacy: [facility], 176, cm, 04/07/21 11:30:00 EDT, Height/Length Dosing, 103, kg, 04/07/21 11:30:00 EDT, Weight Dosing Start Date: 04/08/21 Status: Ordered Start: 04-08-2021 take 1 tablet by lashawn three times daily ferrous sulfate 325 mg Tab 325 mg = 1 tab(s), Oral, TID, # 90 tab(s), Refills(s) 0, Pharmacy: [facility], 176, cm, 04/07/21 11:30:00 EDT, Height/Length Dosing, 103, kg, 04/07/21 11:30:00 EDT, Weight Dosing Start Date: 04/08/21 Status: Ordered Fish Oils (5 sources) take 1 capsule by mouth once daily Fish Oil Bancroft-3 1000 MG 1 capsule Orally Once a [...] insulin aspart, human 100 unt/ml pen injector (20 sources) Insulin Analog Start: 02-25-2024 inject 10 [IU] by subcutaneous injection once daily at bedtime NovoLOG FlexPen ReliOn 100 UNIT/ML pen Indications: Type 2 diabetes mellitus with other specified complication, with long-term current use of insulin ([facility]) INJECT 10 UNITS SUBCUTANEOUSLY ONCE DAILY [...] only insulin syringe U-100 1 mL misc (6 sources) Start: 03-19-2023 End: 03-18-2024 inject 1 [...] day(s), # 30 tab(s), Refills(s) 0, Pharmacy: [facility], 177, cm, 12/06/21 20:43:00 [...] Daily, # 30 tab(s), Refills(s) 0, Pharmacy: [facility], 178, cm, 10/14/21 16:31:00 EDT, Height/Length Dosing, 105, kg, 10/14/21 16:31:00 EDT, Weight Dosing Start Date: 10/27/21 Status: Ordered Start: 10-27-2021 take 1 tablet by lashawn th once daily levothyroxine 100 mcg (0.1 mg) Tab 100 mcg = 1 tab(s), Oral, Daily, # 30 tab(s), Refills(s) 0, Pharmacy: [facility], 178, cm, 10/14/21 16:31:00 [...] Not-Taking loperamide hydrochloride 2 mg oral capsule (16 sources) Opioid Agonist End: 04-04-2023 take 1 [...] Active memantine hydrochloride 5 mg oral tablet (8 sources) D-aekpya-W-aspartate Receptor Antagonist Start: 11-21-2023 End: 11-20-2024 take 1 tablet by mouth in the morning memantine (Namenda) 5 MG tablet Indications: Cognitive impairment Take 1 tablet (5 mg) by mouth in the morning and 1 tablet (5 mg) before bedtime. 60 tablet 3 03/12/2024 Active metFORMIN hydrochloride 1000 mg oral tablet (20 sources) Biguanide Start: 02-19-2024 take 1 tablet by mouth twice daily at mealtime metFORMIN (Glucophage) 1000 MG tablet Indications: Type 2 diabetes mellitus with other specified complication, with long-term current use of insulin (CMS/HCC) TAKE 1 TABLET BY MOUTH TWICE DAILY WITH MEALS 180 tablet 02/19/2024 Active Start: 10-21-2021 take 0.5 tablet by [facility] twice daily metformin 1000 mg Tab See Instructions, 0.5 tab(s) Oral BID, Refills(s) 0 Start Date: 10/21/21 Status: Ordered Start: 10-19-2020 take 1 tablet by lashawn twice daily at mealtime metFORMIN (GLUCOPHAGE) 1000 MG tablet Take 1,000 mg by mouth 2 (two) times a day with meals . 05/05/2021 Active Start: 02-05-2018 End: 02-24-2021 take 500 mg by mouth twice daily Metformin Discontinued 500 MG PO Twice daily February 05, 2018 12:00am February 24, 2021 11:03am Start: 01-28-2018 take 2 tablets by mo [facility] twice daily metformin 500 [...] 21 tab(s), Refills(s) 0, Pharmacy: [id number], 177, cm, 12/30/21 15:24:00 EDT, Height/Length Dosing, 100.5, kg, 12/30/21 15:24:00 EDT, Weight Dosing Start Date: 12/30/21 Stop Date: 01/05/22 Status: Ordered Multiple Vitamins-Minerals (MULTI-VITAMIN GUMMIES PO) (6 sources) Multiple Vitamins-Minerals (MULTI-VITAMIN GUMMIES PO) Take by mouth. Active Multiple Vitamins-Minerals (multivitamin with minerals) tablet (2 sources) take 1 tablet by mouth once daily Multiple Vitamins-Minerals (multivitamin with minerals) tablet Take 1 tablet by mouth daily. 0 Active Lwwdmtyt-Vbk-Mbcuy-Vit K-Lycop (Men's 50 Plus Multivitamin) 400-20-370 mcg Tablet (11 sources) Start: 02-24-2021 take 50-400 tablets by mouth once daily in the morning Tkolervb-Qzj-Fewxe -Vit K-Lycop (Men's 50 Plus Multivitamin) 400-20-370 mcg Tablet Active 2 TAB PO Every morning February 24, 2021 12:00am Start: 02-24-2021 take 50-400 tablets by mouth once daily in the morning Ojwkejgk-Rbu-Mleef-Vit K-Lycop (Men's 50 Plus Multivitamin) 400-20-370 mcg [...] Ordered Start: 01-16-2022 take 1 capsule by [facility] twice daily Florastor 250 MG 1 capsule [...] Daily, # 30 tab(s), Refills(s) 0, Pharmacy: [facility], 172.7, cm, 03/09/23 15:05:00 EDT, Height/Length Dosing, 104.5, kg, 03/09/23 15:05:00 EDT, Weight Dosing Start Date: 03/13/23 Status: Ordered Start: 12-08-2021 End: 01-07-2022 Aldactone 25 mg Tab 12.5 mg = 0.5 tab(s), Oral, Daily, X 30 day(s), # 15 tab(s), Refills(s) 0, Pharmacy: [facility], 177, cm, 12/06/21 20:43:00 EDT, Height/Length Dosing, 107.2, kg, 12/06/21 20:43:00 EDT, Weight Dosing Start Date: 12/08/21 Stop Date: 01/07/22 Status: Ordered Start: 10-27-2021 take 1 tablet by lashawn twice daily spironolactone 25 mg Tab 25 mg = 1 tab(s), Oral, BID, # 60 tab(s), Refills(s) 0, Pharmacy: [facility], 178, cm, 10/14/21 16:31:00 EDT, Height/Length Dosing, 105, kg, 10/14/21 16:31:00 EDT, Weight Dosing Start Date: 10/27/21 Status: Ordered Start: 07-22-2021 take 1 tablet by [facility] twice daily spironolactone 25 mg Tab 25 mg = 1 tab(s), Oral, BID, # 120 tab(s), Refills(s) 0, Pharmacy: [facility], 172, cm, 07/17/21 14:15:00 [...] pounds, # 60 tab(s), Refills(s) 0, Pharmacy: [facility], 177, cm, 08/27/23 20:45:00 [...] Discontinued 20 MG PO Every morning 0 4 May 14, 2022 4:00pm September 06, 2023 [...] film to inside of foreskin twice daily., [facility], 177, cm, 03/09/22 14:32:00 [...] 1:00am Start: 12-07-2019 take 1 capsule by [facility] once daily Co-Q10 100 mg oral capsule [...] injections., # 10 mL, Refills(s) 1, Pharmacy: [facility], 177, cm, 04/12/23 9:03:00 EST, Height/Length Dosing, 101.6, kg, 04/12/23 9:03:00 EST, Weight Dosing Start Date: 04/12/23 Status: Ordered Start: 04-12-2023 inject 1000 ug by in tramuscular injection every month cyanocobalamin 1000 mcg/mL Inj 1,000 mcg = 1 mL, IntraMuscular, qMonth, syringes for B12 injections-3ml, 25 guage 1 inch quantity sufficient for injections., # 10 mL, Refills(s) 1, Pharmacy: [facility], 177, cm, 04/12/23 9:03:00 [...] BIDWM, # 60 tab(s), Refills(s) 0, Pharmacy: [facility], 176, cm, 12/08/19 9:27:00 EDT, Height/Length Measured, [...] Ordered warfarin sodium 4 mg oral tablet (14 sources) Vitamin K Antagonist Start: 11-19-2023 Coumadin 4 mg Tab See Instructions, take 6mg on sunday, take 4m g all other days, # 96 tab(s), Refills(s) 1, Pharmacy: [facility], 172, cm, 10/31/23 14:00:00 [...] meals Start: 05-10-2022 take 1 capsule by [facility] once daily cranberry oral capsule See Instructions, [...] procedure, # 2 tab(s), Refills(s) 0, Pharmacy: [facility], 172, cm, 12/05/23 10:16:00 EDT, Height/Length Dosing, 107.6, kg, 12/05/23 10:16:00 EDT, Weight Dosing Start Date: 12/11/23 Status: Ordered Start: 06-28-2023 take 1 capsule by [facility] once daily doxycycline hyclate 100 mg Cap 100 mg = 1 cap(s), Oral, Daily, Take 1 pill the day before the procedure and 1 pill after the procedure, # 2 cap(s), Refills(s) 0, Pharmacy: [facility], 177, cm, 04/12/23 9:03:00 EST, Height/Length Dosing, 101.6, kg, 04/12/23 9:03:00 EST, Weight Dosing Start Date: 06/28/23 Status: Ordered Start: 01-01-2023 take 1 capsule by [facility] once daily doxycycline hyclate 100 mg Cap 100 mg = 1 cap(s), Oral, Daily, Take 1 pill the day before the procedure and 1 pill after the procedure, # 2 cap(s), Refills(s) 0, Pharmacy: [facility], 177, cm, 10/31/22 10:31:00 EDT, Height/Length Dosing, 100, kg, 09/22/22 12:09:00 EDT, Weight Dosing Start Date: 01/01/23 Status: Ordered Start: 10-26-2022 take 1 capsule by [facility] once daily doxycycline hyclate 100 mg Cap 100 mg = 1 cap(s), Oral, Daily, Take 1 pill the day before the procedure and 1 pill after the procedure, # 2 cap(s), Refills(s) 0, Pharmacy: [facility], 177, cm, 09/22/22 12:09:00 EDT, Height/Length Dosing, 100, kg, 09/22/22 12:09:00 EDT, W... Start Date: 10/26/22 Status: Ordered Start: 11-11-2020 take 1 tablet by lashawn th once daily Doxycycline Hyclate 100 MG Oral [...] complication, with long-term current use of insulin ([facility]) Take 1 tablet (10 mg) by mouth [...] (3 sources) Provitamin D2 Compound Sta rt: take 1 capsule by mouth every week Vitamin D (Ergocalciferol) 1.25 MG (14832 UT) Oral Capsule TAKE 1 CAPSULE BY MOUTH ONCE A WEEK Quantity: 12 Refills: 0 Ordered: 19-Sep-2020 DO Start : 25-Jun-2020 Active fluconazole 200 mg oral tablet (3 sources) Azole Antifungal Sta rt: take 1 tablet by mouth once daily [...] Daily, # 60 tab(s), Refills(s) 0, Pharmacy: [facility], 178, martina, 10/14/21 16:31:00 EDT, Height/Length Dosing, 105, kg, 10/14/21 16:31:00 EDT, Weight Dosing Start Date: 10/27/21 Status: Ordered Start: 07-22-2021 take 1 tablet by [facility] twice daily furosemide 40 mg Tab 40 mg = 1 tab(s), Oral, BID, # 60 tab(s), Refills(s) 0, Pharmacy: [facility], 178, martina, 10/14/21 16:31:00 EDT, Height/Length Dosing, 105, kg, 10/14/21 16:31:00 EDT, Weight Dosing Start Date: 10/27/21 Status: Ordered Start: 12-16-2020 take 1 tablet by [facility] once daily Furosemide 40 MG Oral Tablet [...] complication, with long-term current use of insulin ([facility]/HCC) Take 1 tablet (2 mg) by mouth in the morning and 1 tablet (2 mg) before bedtime. 200 tablet 3 06/25/2023 03/06/2024 Discontinued take 1 tablet by mouth before me altime glimepiride (Amaryl) 1 MG tablet Take 1 mg by mouth in the morning. Take before meals. Active sodium hypochlorite 2.5 mg/ml topical solution (1 [...] 09/14/11 Status: Ordered take 1 capsule by [facility] every twenty-four hours Magnesium Oxide 400 MG [...] Active nebulizer machine (20 sources) Start: 03-13-20 23 nebulizer machine nebulizer machine, See Instructions, 1 EA, 0, please provide machine with supplies, Supply Start Date: 03/13/23 Status: Ordered Bancroft 3 1200 MG (5 sources) take 1 capsule by mouth once daily Bancroft 3 1200 MG 1 capsule Orally Once [...] 7:28am Start: 10-21-2021 take 1 capsule by [facility] once daily potassium chloride 10 mEq Cap-ER 10 mEq = 1 cap(s), Oral, Daily, Refills(s) 0 Start Date: 10/21/21 Status: Ordered Start: 10-21-2021 take 1 capsule by [facility] once daily potassium chloride 10 mEq Cap-ER [...] day(s), # 30 cap(s), Refills(s) 0, Pharmacy: [facility], 177.8, cm, 02/08/22 20:58:00 [...] Completed Start: 10-06-2021 take 1 capsule by [facility] once daily Flomax 0.4 mg Cap 0.4 [...] Start: 02-04-2021 take 1 tablet by lashawn twice daily Venlafaxine HCl - 37.5 MG [...] Documented Da te Episodic/Chronic Acquired foot deformities (6 sources) Acquired hammer toe of left foot; Translations: [Other hammer toe(s) (acquired), left foot] Onset: 3 03-09-2023 Chronic Acquired foot deformities (6 sources) Acquired hammer toe of right foot; Translations: [Other hammer toe(s) (acquired), right foot] Onset: 3 03-09-2023 Chronic Acquired foot deformities (3 sources) Other acquired deformities of left foot; Translations: [Left foot drop] Onset: 2 03-12-2024 Episodic Acute and unspecified renal failure (2 sources) Acute renal failure syndrome; Translations: [Other acute kidney failure] Onset: 2 Episodic Acute cerebrovascular disease (6 sources) Cerebrovascular accident; Translations: [Cerebral infarction, unspecified] [...] disease; Translations: [Chronic kidney disease, stage 3b ([facility]/HCC)] Onset: 3 Chronic obstructive pulmonary disease and [...] dementia, and amnestic and other cognitive disorders (10 sources) Dementia; Translations: [Mild dementia without behavioral disturbance, psychotic disturbance, mood disturbance, or anxiety, unspecified dementia type ([facility])] Onset: 2 03-20-2023 Chronic Diabetes mellitus with [...] sources) Carotid artery stenosis 04-07-2021 Chronic Osteoarthritis (14 sources) Primary osteoarthritis, left ankle and foot; Translations: [Unspecified osteoarthritis, unspecified site] Onset: 2 03-09-2023 Chronic Other acquired deformities (20 sources) Contracture of ankle joint 02-17-2022 Chronic Other acquired deformities (1 source) Contracture, left ankle; Translations: [CONTRACTURE LEFT ANKLE] Onset: 3 Chronic Other acquired deformities (6 sources) Contracture of joint of left ankle; Translations: [Contracture, left ankle] Onset: 3 03-09-2023 Chronic Other aftercare (20 sources) Drug therapy finding; Translations: [Long-term (current) use of other medications] Episodic Other aftercare (6 sources) H/O: high risk medication; Translations: [Other senior living (current) drug therapy] Episodic Other aftercare (6 sources) Long-term current use of insulin; Translations: [exterminator helper termite (current) use of insulin] Episodic Other aftercare (7 sources) exterminator helper termite (current) use of antibiotics; Translations: [Long-term (current) use of antibiotics] Onset: 2 Resolved: 2 Episodic Other aftercare (20 sources) Long-term current use of anticoagulant; Translations: [exterminator helper termite (current) use of anticoagulants] Onset: 2 Episodic Other aftercare (4 sources) Encounter for follow-up examination after completed treatment for conditions other than malignant neoplasm; Translations: [ENC F/U EX AFTR CMPL TX NOT MAL ARMANDO] Onset: 3 Episodic Other aftercare (1 source) Polypharmacy ; Translations: [Other senior living (current) drug therapy] 02-21-2023 Episodic Other aftercare (4 sources) Taking high risk medication; Translations: [Other watermelon harvesting supervisor (current) drug therapy] Onset: 3 02-23-2023 Episodic Other aftercare (1 source) Long-term current use of drug therapy; Translations: [Other senior living (current) drug therapy] Onset: 4 Episodic Other aftercare (3 sources) Long-term current use of antibiotic; Translations: [MCFP (current) use of antibiotics] 10-18-2023 Episodic Other aftercare (2 sources) Post-discharge follow-up; Translations: [Encounter for follow-up examination after completed treatment for conditions other than malignant neoplasm] 03-06-2024 Episodic Other and ill-defined heart disease (1 source) Heart disease, unspecified; Translations: [HEART DISEASE UNSPECIFIED] Onset: 2 Chronic Other and unspecified benign neoplasm (20 sources) Polyp of colon 12-07-2019 Episodic Other circulatory disease (2 sources) History of cerebrovascular accident; Translations: [Personal history of transient ischemic attack (TIA), and cerebral infarction without residual deficits] 03-12-2024 Episodic Other connective tissue disease (20 sources) [...] Other hereditary and degenerative nervous system conditions (18 sources) Restless legs; Translations: [Restless legs syndrome [...] Onset: 3 Episodic Other nervous system disorders (3 sources) Impaired cognition; Translations: [Other symptoms and signs involving cognitive functions and awareness] 03-26-2023 Episodic Other non-traumatic joint disorders (20 sources) Charcot's joint of foot 04-08-2021 Chronic Other non-traumatic joint disorders (5 sources) Charcot's joint, left ankle and foot; Translations: [CHARCOTS JOINT LEFT ANKLE AND FO] Onset: 3 Chronic Other non-traumatic joint disorders (6 sources) Arthropathy associated with a neurological disorder; [...] Respiratory failure; insufficiency; arrest (adult) (2 sources) Ldnzg-ms-hkhdsti respiratory failure; Translations: [Acute and chronic respiratory failure with hypoxia] Onset: 4 Chronic Respiratory failure; insufficiency; arrest (adult) (2 sources) Acute respiratory failure; Translations: [Acute respiratory failure with hypoxia] 03-06-2024 Episodic Thyroid disorders (20 sources) Hypothyroidism; Translations: [Unspecified acquired hypothyroidism] Onset: 1 06-21-2021 Chronic Unclassified (10 sources) Parkinsonism; Translations: [Parkinsonism, unspecified Parkinsonism type] [...] Problem Classification Problem Date Documented Date Episodic/Chronic Coronary atherosclerosis and other heart disease (20 [...] 12-15-2021 07-16-2022 Other aftercare (4 sources) Other senior living (current) drug therapy; Translations: [Other senior living (current) drug therapy] Onset: 02-23-2023 Episodic Other circulatory disease (20 sources) History of atrial flutter; Translations: [Personal history of other diseases of circulatory system] Resolved: 05-05-2021 Episodic Other circulatory disease (20 sources) H/O: angina pectoris; Translations: [Personal history of other diseases of circulatory system] Resolved: 06-29-2021 Episodic Other connective tissue disease (15 sources) Transient neurological symptoms; Translations: [Other symptoms involving nervous and musculoskeletal systems] Onset: 02-23-2023 02-23-2023 Episodic Other connective tissue disease (2 sources) Other symptoms and signs involving the nervous system; Translations: [Other symptoms and signs involving the nervous system] Onset: 02-23-2023 Episodic Other diseases of veins and lymphatics (6 sources) Peripheral venous insufficiency; Translations: [Venous insufficiency (chronic) (peripheral)] Onset: 03-29-2023 03-29-2023 Episodic Other injuries and conditions due to external causes (20 sources) At risk for falls ; Translations: [History of fall] Onset: 02-23-2023 02-23-2023 Episodic Other lower respiratory disease (1 source) Shortness of breath; Translations: [Shortness of breath] Onset: 06-17-2023 Episodic Other nervous system disorders (9 sources) Involuntary movement; Translations: [Unspecified abnormal involuntary movements] Onset: 02-23-2023 02-23-2023 Episodic Other nervous system disorders (6 sources) Abnormal gait; Translations: [Unspecified abnormalities of [...] Test Name Value Interpretation Reference Range Facility Patient Letter FTon 2023 Patient Letter [facility] Patient Letter [facility] March 14, 2024 JOSÉ LUIS FAULKNER [address] [facility] [place] [address] : 1950 Dear José Luis, This is a reminder that you are due for an appointment with [facility]. Please contact our office at [phone] to schedule an appointment at your earliest convenience. Thank you, [facility] Coding Queryon 03-07-2024 Coding Query Coding Query From: Ophelia Hutton RN To: Boaz Teresa III, DO; Sent: 03/04/2024 15:19:24 EDT ! Subject: Coding Query Due Date/Time: 03/05/2024 15:19:00 EDT Caller Name: JOSÉ LUIS FAULKNER; Caller Number: Mauro , M The following labs are documented in the [...] Caller Name: JOSÉ LUIS FAULKNER; Caller Number: H , M [facility] General Message Officeon General Message Office General Message O ffice --- --- --- --- --- --- --- --- --- From: Renetta [employer] To: JOSÉ LUIS FAULKNER Sent: 03/05/24 02:30:26 AM EDT Subject: Discharge Summary Ready to View A summary regarding your recent visit is available in the Documents section of your health record. [facility] BMPon 03-04-2024 Anion gap [Moles/Vol] 12 mmol/L Normal 6-[address] [facility] Comment on above: Performed By: #### 2 [id number] #### [facility] [address] [place] [address] Calcium [Mass/Vol] 8.8 mg/dL Low 8.9-11.1 [facility] Comment on above: Performed By: #### 2 [id number] #### [facility] [address] [place] [address] Chloride [Moles/Vol] 100 mmol/L Low 101-111 [facility] Comment on above: Performed By: #### 2 [id number] #### [facility] [address] [place] [address] CO2 [Moles/Vol] 33 mmol/L High 21-31 [facility] Comment on above: Performed By: #### 2 [id number] #### [facility] [address] [place] [address] Creatinine [Mass/Vol] 1.4 mg/dL High 0.5-1.[address] [facility] Comment on above: Performed By: #### 2 [id number] #### [facility] [address] [place] [address] Glucose [Mass/Vol] 137 mg/dL Normal 55-199 [facility] Comment on above: Performed By: #### 2 [id number] #### [facility] [address] [place] [address] Potassium [Moles/Vol] 3.7 mmol/L Normal 3.5-5.[address] [facility] Comment on above: Performed By: #### 2 [id number] #### [facility] [address] [place] [address] Sodium [Moles/Vol] 141 mmol/L Normal 135-145 [facility] Comment on above: Performed By: #### 2 [id number] #### [facility] [address] [place] [address] Urea nitrogen [Mass/Vol] 31 mg/dL High 5-21 [facility] Comment on above: Performed By: #### 2 580806 #### [facility] [address] [place] [address] Urea nitrogen/Creatinine [Mass ratio] 22 No Units High 10-20 [facility] Comment on above: Performed By: #### 2 [id number] #### [facility] [address] [place] [address] CBC w/ Auto Diffon 4 Basophils/100 WBC (Bld) 0.7 % Normal 0.0-2.0 [facility] Comment on above: Performed By: #### 2 [id number] #### [facility] [address] [place] [address] Basophils/Leukocytes Auto (Bld) [Pure # fraction] 0.1 E9/L Normal 0.0-0.2 [facility] Comment on above: Performed By: #### 2 [id number] #### [facility] [address] [place] [address] Eosinophils (Bld) [#/Vol] 0.2 E9/L Normal 0.0-0.5 [facility] Comment on above: Performed By: #### 2 [id number] #### [facility] [address] [place] [address] Eosinophils/100 WBC (Bld) 1.6 % Normal 0.0-8.0 [facility] Comment on above: Performed By: #### 2 615579 #### [facility] [address] [place] [address] Erythrocyte distribution width (RBC) [Ratio] 15.4 % High 10.9-14.2 [facility] Comment on above: Performed By: #### 2 748959 #### [facility] [address] [place] [address] Hematocrit (Bld) [Volume fraction] 28.9 % Low 37.7-49.0 [facility] Comment on above: Performed By: #### 2 300700 #### [facility] [address] [place] [address] Hemoglobin (Bld) [Mass/Vol] 9.7 g/dL Low 13.5-17.5 [facility] Comment on above: Performed By: #### 2 029721 #### [facility] [address] [place] [address] Lymphocytes (Bld) [#/Vol] 1.7 E9/L Normal 1.0-4.0 [facility] Comment on above: Performed By: #### 2 593862 #### [facility] [address] [place] [address] Lymphocytes/100 WBC (Bld) 15.8 % Normal 14.0-50.0 [facility] Comment on above: Performed By: #### 2 138795 #### [facility] [address] [place] [address] MCH (RBC) [Entitic mass] 29.4 pg Normal 27.0-34.0 [facility] Comment on above: Performed By: #### 2 [id number] #### [facility] [address] [place] [address] MCHC (RBC) [Mass/Vol] 33.6 g/dL Normal 31.4-36.[address] [facility] Comment on above: Performed By: #### 2 [id number] #### [facility] [address] [place] [address] MCV (RBC) [Entitic vol] 87.7 fL Normal 80.0-100.0 [facility] Comment on above: Performed By: #### 2 [id number] #### [facility] [address] [place] [address] Monocytes (Bld) [#/Vol] 0.8 E9/L Normal 0.2-1.0 [facility] Comment on above: Performed By: #### 2 686265 #### [facility] [address] [place] [address] Neutrophils (Bld) [#/Vol] 8.3 E9/L High 2.0-7.5 [facility] Comment on above: Performed By: #### 2 575461 #### [facility] [address] [place] [address] Neutrophils/100 WBC (Bld) 75.0 % Normal 36.0-75.0 [facility] Comment on above: Performed By: #### 2 791851 #### [facility] [address] [place] [address] Platelet mean volume (Bld) [Entitic vol] 6.4 fL Normal 6.4-10.8 [facility] Comment on above: Performed By: #### 2 508647 #### [facility] [address] [place] [address] Platelets (Bld) [#/Vol] 319.0 E9/L Normal 150.0-500. 0 [facility] Comment on above: Performed By: #### 2 771671 #### [facility] [address] [place] [address] RBC (Bld) [#/Vol] 3.3 E12/L Low 4.3-5.9 [facility] Comment on above: Performed By: #### 2 347063 #### [facility] [address] [place] [address] WBC corrected for nucl RBC Auto (Bld) [#/Vol] 11.0 E9/L Normal 4.0-11.0 [facility] Comment on above: Performed By: #### 2 [id number] #### [facility] [address] [place] [address] CHEMISTRYOrdered By: Yvon ROP User on 03-04-2024 Glucose [Mass/Vol] 249 mg/dL High 55 - 99 mg/dL [facility] POC Subsection Comment on above: Result Comment: Kennedy espitia RN/ POC Device SN [id number] 1 Invalid Interpretation Code [facility] POC Subsection POC User ID [id number] 1 Invalid Interpretation Code [facility] POC Subsection POC Username RINNER, DARLENE Invalid Interpretation Code [facility] POC Subsection Glucose [Mass/Vol] 141 mg/dL High 55 - 99 mg/dL [facility] POC Subsection Comment on above: Result Comment: Kennedy espitia RN/ POC Device SN [id number] 1 Invalid Interpretation Code [facility] POC Subsection POC User ID [id number] 1 Invalid Interpretation Code [facility] POC Subsection POC Username DARLENE MCGARRY Invalid Interpretation Code [facility] POC Subsection CHEMISTRYOrdered By: SYSTEM SYSTEM on [...] [Relative time] 2.71 {INR} Invalid Interpretation Code [facility] Auto Coag Comment on above: Interpretive Data: I NR results are specifically intended to assess patients stabilized on long-term Anticoagulation therapy suggested INR s Less Intensive Anticoagulation 2.0 3.0 Conventional Range 3.0 4.5 PT Coag (PPP) [Time] 30.7 s High 9.4 - 1 2.5 second(s) [facility] Auto Coag Comment on above: Interpretive Data: [...] the same coagulation reagent and instrumentation as [facility]. Currently there are no coagulation studies available worldwide for children to 14 days, and no normal ranges. Capillary Glucose POCon Glucose [Mass/Vol] 249 mg/dL High 55-99 [facility] Comment on above: Result Comment: Kennedy SULLIVAN Performed By: #### 2 [id number] #### [facility] [address] [place] [address] Glucose [Mass/Vol] 141 mg/dL High 55-99 [facility] Comment on above: Result Comment: Kennedy SULLIVAN Performed By: #### 2 [id number] #### [facility] [address] [place] [address] Discharge Note-Nursingon Discharge Note-Nursing Discharge Note-Cherelle starring JOSÉ LUIS FAULKNER :1950 Visit Date:03/02/2024 Inpatient Discharge Instructions Your Care Team Admitting Physician - Aden BROUSSARD, Paul Regalado Consulting Physician - Danna BROUSSARD, Felipa [facility] Reason for Your Visit Shortness of [...] 01:20 PM EDT Where: [address] [place] [address]- Business (1) Follow Up with Mona Baker When: Within 7 to 10 days Comments: Call for followup appointment Where: [address] [place] [address]- Business (1) Medications What How Much When [...] needed Unchan (more content not included)... [facility] HEMATOLOGYOrdered By: SYSTEM SYSTEM on 03-04-2024 [...] 03-04-2024 Inpatient Clinical Summary Inpatient Clinical Summary [address] [address] Clinical Summary Person Information: Name: JOSÉ LUIS FAULKNER Age: 73 Years : 1950 Sex: Male PCP: Mona Baker MD Marital Status: Phone: [phone] Race: White Ethnicity: Non- or Language: Citizen Of [place] Visit Id: Visit Reason: Shortness of breath; SOB Speciality: Acuity: Enc Type: Inpatient Med Service: Medical Arrival: 03/02/2024 08:07:40 Discharge: Dispo Type: Admitted as IP to this Hosp Address: [address] [place] [id number] Provider Notes: Diagnosis: 1:Acute on chronic respiratory [...] reflux uropathy Parkinsonian syndrome JASMIN on CPAP MCFP (current) use of insulin Weakness generalized BPH [...] Chest pain. (more content not included)... [facility] Inpatient Patient Summaryon 03-04-2024 Inpatient Patient Summary Inpatient Patient Summary [place] [address] Patient Discharge Instructions PERSON INFORMATION Name: JOSÉ LUIS FAULKNER Date of : 1950 Current Date: 03/04/2024 13:35:29 PHYSICIANS Admitting Physician: Aden BROUSSARD, Paul Regalado [...] None Follow up: With: Address: When: [place] [place] [address] [place] (1) 03/06/2024 1:20 PM With: Address: When: [place] [address] [place] () Within 7 to 10 days Comments: Call [...] 1:40 PM 10/30/2024 2:00 PM Confirmed Comment: IMELY NICOLAAS A, have received the attached patient [...] Last Dose: (more content not included)... [facility] Interdisciplinary Note - Edwardo e Manageron 03-04-2024 Interdisciplinary Note - Recyclable Materials Sorter Interdisciplinary Note - Recyclable Materials Sorter Patient is awake and alert in bed, [...] information provided and white board updated. [facility] Comment on above: Result Comment: Elec tronically Signed By: Flaco MCCLELLAND, Estelita\.ricardo\Date and Time Signed: 03/04/24 09:09 EDT PTon 03-04-2024 INR Coag (PPP) [Relative time] 2.71 {INR} Invalid Interpretation Code [facility] Comment on above: Result Comment: INR results are specifically intended to assess patients stabilized on long-term Anticoagulation therapy suggested INR?s ?Less Intensive Anticoagulation? 2.0 ? 3.0 Conventional Range 3.0 ? 4.5 Performed By: #### 2 [id number] #### [facility] [address] [place] [address] PT Coag (PPP) [Time] 30.7 second(s) High 9.4-12.5 [facility] Comment on above: Result Comment: 15 [...] the same coagulation reagent and instrumentation as [facility]. Currently there are no coagulation studies available worldwide for children to 14 days, and no normal ranges. Performed By: #### 2 [id number] #### [facility] [address] [place] [address] eGFRon 03-04-2024 eGFR 52 mL/min/1.73 m2 Low >=59 [facility] Comment on above: Performed By: #### 1 [id number] #### [facility] [address] [place] [address] BMPOrdered By: SYSTEM SYSTEM on 03-03-2024 Anion gap [Moles/Vol] 12 mmol/L Normal 6 - 16 mEq/L [facility] Comment on above: Performed By: #### 2 [id number] #### [facility] [address] [place] [address] Calcium [Mass/Vol] 8.8 mg/dL Low 8.9 - 11. 1 mg/dL [facility] Comment on above: Performed By: #### 2 728197 #### [facility] [address] [place] [address] Chloride [Moles/Vol] 99 mmol/L Low 101 - 1 11 mmol/L [facility] Comment on above: Performed By: #### 2 923522 #### [facility] [address] [place] [address] CO2 [Moles/Vol] 32 mmol/L High 21 - 31 mmol/L [facility] Comment on above: Performed By: #### 2 686498 #### [facility] [address] [place] [address] Creatinine [Mass/Vol] 1.5 mg/dL High 0.5 - 1.3 mg/dL [facility] Comment on above: Performed By: #### 2 966292 #### [facility] [address] [place] [address] Glucose [Mass/Vol] 241 mg/dL High 55 - 199 mg/dL [facility] Comment on above: Performed By: #### 2 498795 #### [facility] [address] [place] [address] Potassium [Moles/Vol] 4.3 mmol/L Normal 3.5 - 5.3 mmol/L [facility] Comment on above: Performed By: #### 2 929621 #### [facility] [address] [place] [address] Sodium [Moles/Vol] 139 mmol/L Normal 135 - 145 mmol/L [facility] Comment on above: Performed By: #### 2 287048 #### [facility] [address] [place] [address] Urea nitrogen [Mass/Vol] 29 mg/dL High 5 - 21 mg/dL [facility] Comment on above: Performed By: #### 2 178657 #### [facility] [address] [place] [address] BMPon 03-03-2024 Urea nitrogen/Creatinine [Mass ratio] 19 No Units Normal 10-20 [facility] Comment on above: Performed By: #### 2 [id number] #### [facility] [address] [place] [address] CBC w/ Auto DiffOrdered By: SYSTEM SYSTEM on 03-03-2024 Basophils/100 WBC (Bld) 0.2 % Normal 0.0 - 2.0 % [facility] Comment on above: Performed By: #### 2 694745 #### [facility] [address] [place] [address] Basophils/Leukocytes Auto (Bld) [Pure # fraction] 0.0 E9/L Normal 0.0 - 0.2 E9/L [facility] Comment on above: Performed By: #### 2 101112 #### [facility] [address] [place] [address] Eosinophils (Bld) [#/Vol] 0.0 E9/L Normal 0.0 - 0.5 E9/L [facility] Comment on above: Performed By: #### 2 417150 #### [facility] [address] [place] [address] Eosinophils/100 WBC (Bld) 0.0 % Normal 0.0 - 8.0 % [facility] Comment on above: Performed By: #### 2 [id number] #### [facility] [address] [place] [address] Erythrocyte distribution width (RBC) [Ratio] 15.5 % High 10.9 - 14.2 % [facility] Comment on above: Performed By: #### 2 609676 #### [facility] [address] [place] [address] Hematocrit (Bld) [Volume fraction] 27.9 % Low 37.7 - 49.0 % [facility] Comment on above: Performed By: #### 2 438893 #### [facility] [address] [place] [address] Hemoglobin (Bld) [Mass/Vol] 9.4 g/dL Low 13.5 - 17.5 gm/dL [facility] Comment on above: Performed By: #### 2 558049 #### [facility] [address] [place] [address] Lymphocytes (Bld) [#/Vol] 0.8 E9/L Low 1.0 - 4.0 E9/L [facility] Comment on above: Performed By: #### 2 096829 #### [facility] [address] [place] [address] Lymphocytes/100 WBC (Bld) 9.7 % Low 14.0 - 50.0 % [facility] Comment on above: Performed By: #### 2 320463 #### [facility] [address] [place] [address] MCH (RBC) [Entitic mass] 29.4 pg Normal 27.0 - 34.0 pg [facility] Comment on above: Performed By: #### 2 610907 #### [facility] [address] [place] [address] MCHC (RBC) [Mass/Vol] 33.7 g/dL Normal 31.4 - 36.0 gm/dL [facility] Comment on above: Performed By: #### 2 244520 #### [facility] [address] [place] [address] MCV (RBC) [Entitic vol] 87.3 fL Normal 80.0 - 100.0 fL [facility] Comment on above: Performed By: #### 2 803793 #### [facility] [address] [place] [address] Monocytes (Bld) [#/Vol] 0.7 E9/L Normal 0.2 - 1.0 E9/L [facility] Comment on above: Performed By: #### 2 534118 #### [facility] [address] [place] [address] Neutrophils (Bld) [#/Vol] 7.1 E9/L Normal 2.0 - 7.5 E9/L [facility] Comment on above: Performed By: #### 2 724686 #### [facility] [address] [place] [address] Neutrophils/100 WBC (Bld) 82.0 % High 36.0 - 75.0 % [facility] Comment on above: Performed By: #### 2 [id number] #### [facility] [address] [place] [address] Platelet mean volume (Bld) [Entitic vol] 6.7 fL Normal 6.4 - 10.8 fL [facility] Comment on above: Performed By: #### 2 840311 #### [facility] [address] [place] [address] Platelets (Bld) [#/Vol] 323.0 E9/L Normal 150.0 - 500.0 E9/L [facility] Comment on above: Performed By: #### 2 488534 #### [facility] [address] [place] [address] RBC (Bld) [#/Vol] 3.2 E12/L Low 4.3 - 5.9 E12/L [facility] Comment on above: Performed By: #### 2 382946 #### [facility] [address] [place] [address] WBC corrected for nucl RBC Auto (Bld) [#/Vol] 8.7 E9/L Normal 4.0 - 11.0 E9/L [facility] Comment on above: Performed By: #### 2 [id number] #### [facility] [address] [place] [address] CHEMISTRYOrdered By: Lab ROP User on 03-03-2024 Glucose [Mass/Vol] 262 mg/dL High 55 - 99 mg/dL [facility] [facility] Subsection Comment on above: Result Comment: Kennedy SULLIVAN POC Device SN [id number] Invalid Interpretation Code [facility] Subsection POC User ID [id number] 1 Invalid Interpretation Code [facility] Subsection POC Username LUIS ENRIQUE POWERS Invalid Interpretation Code [facility] Subsection CHEMISTRYOrdered By: SYSTEM SYSTEM on 03-03-2024 Urea nitrogen/Creatinine [Mass ratio] 19 mg/mg Normal 10 - 20 Remisol Chem COAGULATIONOrdered By: Zay Saab on 03-03-2024 PT Coag (PPP) [Time] 23.0 s High 9.4 - 1 2.5 second(s) [facility] Auto Coag Comment on above: Interpretive Data: [...] the same coagulation reagent and instrumentation as [facility]. Currently there are no coagulation studies available worldwide for children to 14 days, and no normal ranges. Capillary Glucose POCon 02-04 Glucose [Mass/Vol] 262 mg/dL High 55-99 [facility] Comment on above: Result Comment: Kennedy SULLIVAN Performed By: #### 2 [id number] #### [facility] [address] [place] [address] Glucose [Mass/Vol] 168 mg/dL High 55-99 [facility] Comment on above: Result Comment: Kennedy SULLIVAN Performed By: #### 2 [id number] #### [facility] [address] [place] [address] Glucose [Mass/Vol] 205 mg/dL High 55-99 [facility] Comment on above: Result Comment: Kennedy SULLIVAN Performed By: #### 2 [id number] #### [facility] [address] [place] [address] Glucose [Mass/Vol] 211 mg/dL High 55-99 [facility] Comment on above: Result Comment: Kennedy SULLIVAN Performed By: #### 2 [id number] #### [facility] [address] [place] [address] Free [id number] By: SYSTEM SY STEM on 03-03-2024 Free T4 [Mass/Vol] 1.07 ng/dL Normal 0.58 - 1.64 ng/dL [facility] Chem Comment on above: Performed By: #### 2 [id number] #### [facility] [address] [place], [place] [address] HEMATOLOGYOrdered By: SYSTEM SYSTEM on 03-03-2024 Monocytes/100 WBC (Bld) 8.1 % Normal 4.0 - 14.0 % Remisol Heme Inpatient Clinical Summaryon 03-03-2024 Inpatient Clinical Summary Inpatient Clinical Summary [address] [address] Clinical Summary Person Information: Name: JOSÉ LUIS FAULKNER Age: 73 Years : 1950 Sex: Male PCP: Mona Baker MD Marital Status: Phone: [phone] Race: White Ethnicity: Non- or Language: Citizen Of [place] Visit Id: Visit Reason: Shortness of breath; SOB Speciality: Acuity: Enc Type: Inpatient Med Service: Medical Arrival: 03/02/2024 08:07:40 Discharge: Dispo Type: Admitted as IP to this Hosp Address: [address] [place] [id number] Provider Notes: Diagnosis: 1:Acute on chronic respiratory [...] reflux uropathy Parkinsonian syndrome JASMIN on CPAP MCFP (current) use of insulin Weakness generalized BPH [...] 1 Tabl (more content not included)... Normal [facility] Inpatient Patient Summaryon 03-03-2024 Inpatient Patient Summary Inpatient Patient Summary [address] [address] Patient Discharge Instructions PERSON INFORMATION Name: JOSÉ [...] 1:40 PM 10/30/2024 2:00 PM Confirmed Comment: IMELY NICOLAAS A, have received the attached patient [...] suspension) 20 Unit (more content not included)... [facility] Interdisciplinary Note - Edwardo e Manageron 03-03-2024 Interdisciplinary Note - Recyclable Materials Sorter Interdisciplinary Note - Recyclable Materials Sorter Patient is alert in bed, previously rounded with Dr. Teresa. Pt is inpt admit with CHF exacerbation. PT is from home with and also daughter, ANTON and 2 grandchildren live in a separate part of the house. Declines any anticipated concerns or DC needs. Pt had home oxygen from [facility], was recently taken away a few [...] therapy evals and OPPT vs HH at [facility] Comment on above: Result Comment: Elec tronically Signed By: Flaco MCCLELLAND, Estelita\.ricardo\Date and Time Signed: 03/03/24 14:55 EDT Interdisciplinary Note - Recyclable Materials Sorter Interdisciplinary Note - Recyclable Materials Sorter Patient is alert in bed, previously rounded with Dr. Teresa. Pt is inpt admit with CHF exacerbation. PT is from home with and also daughter, ANTON and 2 grandchildren live in a separate part of the house. Declines any anticipated concerns or DC needs. Pt had home oxygen from [employer], was recently taken away a few weeks ago as it was determined pt no longer needed at home. Pt is currently on 2L. will need to wean off oxygen or desat prior to DC. Pending therapy evals, Medicare rights reviewed, CRM grayiowing. . PCP verified and insurance information reviewed and DME discussed. Contact information provided and white board updated. Normal [facility] Comment on above: Result Comment: Elec [...] recommended at this time for discharge. Normal [facility] MagnesiumOrdered By: SYSTEM SYSTEM on 03-03-2024 Magnesium [Mass/Vol] 2.2 mg/dL Normal 1.3 - 2 .4 mg/dL [facility] Comment on above: Performed By: #### 2 [id number] #### [facility] [address] [place] [address] PTOrdered By: Sheree yanez on 03-03-2024 INR Coag (PPP) [Relative time] 2.04 {INR} Invalid Interpretation Code [facility] Auto Coag Comment on above: Result Comment: INR results are specifically intended to assess patients stabilized on long-term Anticoagulation therapy suggested INR?s ?Less Intensive Anticoagulation? 2.0 ? 3.0 Conventional Range 3.0 ? 4.5 Performed By: #### 2 [id number] #### [facility] [address] [place] [address] Interpretive Data: I NR results are specifically intended to assess patients stabilized on long-term Anticoagulation therapy suggested INR s Less Intensive Anticoagulation 2.0 3.0 Conventional Range 3.0 4.5 PTon 03-03-2024 PT Coag (PPP) [Time] 23.0 second(s) High 9.4-12.5 [facility] Comment on above: Result Comment: 15 [...] the same coagulation reagent and instrumentation as [facility]. Currently there are no coagulation studies available worldwide for children to 14 days, and no normal ranges. Performed By: #### 2 [id number] #### [facility] [address] [place] [address] TSH With T4fr ReflexOrdered By: SYSTEM SYSTEM on 03-03-2024 TSH Qn 6.84 m[IU]/L High 0.34 - 5.60 mcIU/mL [facility] Comment on above: Performed By: #### 1 [id number] #### [facility] [address] [place] [id number] eGFROrdered By: SYSTEM SYSTE M on 03-03-2024 eGFR 48 mL/min/1.73 m2 Low >=59mL/min /1.73 m2 [facility] Comment on above: Performed By: #### 1 [id number] #### [facility] [address] [place] [address] BMPon 03-02-2024 Anion gap [Moles/Vol] 13 mmol/L Normal 6-[address] [facility] Comment on above: Performed By: #### 2 [id number] #### [facility] [address] [place] [address] Calcium [Mass/Vol] 8.6 mg/dL Low 8.9-11.1 [facility] Comment on above: Performed By: #### 2 [id number] #### [facility] [address] [place] [address] Chloride [Moles/Vol] 103 mmol/L Normal 101-111 [facility] Comment on above: Performed By: #### 2 [id number] #### [facility] [address] [place] [address] CO2 [Moles/Vol] 27 mmol/L Normal 21-31 [facility] Comment on above: Performed By: #### 2 [id number] #### [facility] [address] [place] [address] Creatinine [Mass/Vol] 1.1 mg/dL Normal 0.5-1.[address] [facility] Comment on above: Performed By: #### 2 [id number] #### [facility] [address] [place] [address] Glucose [Mass/Vol] 178 mg/dL Normal 55-199 [facility] Comment on above: Performed By: #### 2 [id number] #### [facility] [address] [place] [address] Potassium [Moles/Vol] 4.2 mmol/L Normal 3.5-5.[address] [facility] Comment on above: Performed By: #### 2 [id number] #### [facility] [address] [place] [address] Sodium [Moles/Vol] 139 mmol/L Normal 135-145 [facility] Comment on above: Performed By: #### 2 [id number] #### [facility] [address] [place] [address] Urea nitrogen [Mass/Vol] 18 mg/dL Normal 5-21 [facility] Comment on above: Performed By: #### 2 [id number] #### [facility] [address] [place] [address] Urea nitrogen/Creatinine [Mass ratio] 16 No Units Normal 10-20 [facility] Comment on above: Performed By: #### 2 [id number] #### [facility] [address] [place] [address] BNPon 03-02-2024 Int Ctr BNP Pass Normal [facility] Comment on above: Performed By: #### 1 [id number] #### [facility] [address] [place] [address] Natriuretic peptide B (Bld) [Mass/Vol] 454 pg/mL High 5-80 [facility] Comment on above: Performed By: #### 1 [id number] #### [facility] [address] [place] [id number] Blood Gas Art, with Lytes, G satish, [place] 03-02-2024 a/A Ratio Art 45.20 % Normal >=0.80 [facility] Comment on above: Performed By: #### 4 [id number] #### [facility] [address] [place] [address] AaDO2 Art 77.0 mmHg High 5.0-15.0 [facility] Comment on above: Performed By: #### 4 [id number] #### [facility] [address] [place] [id number] Allens Test Positive Normal [facility] Comment on above: Performed By: #### 4 [id number] #### [facility] [address] [place] [address] Base Excess Arterial 1.8 mmol/L Low >=2.8 [facility] Comment on above: Performed By: #### 4 [id number] #### [facility] [address] [place] [address] cCa2+ Art 4.60 mg/dL Normal 4.40-5.30 [facility] Comment on above: Performed By: #### 4 [id number] #### [facility] [address] [place] [address] cCl- Art 104.0 mmol/L Normal 101.0-111. 0 [facility] Comment on above: Performed By: #### 4 [id number] #### [facility] [address] [place] [address] cGlu Art 198 mg/dL High 55-99 [facility] Comment on above: Performed By: #### 4 [id number] #### [facility] [address] [place] [address] cK+ Art 4.4 mmol/L Normal 3.5-5.3 [facility] Comment on above: Performed By: #### 4 [id number] #### [facility] [address] [place] [address] cLac Art .7 mmol/L Normal .5-2.2 [facility] Comment on above: Performed By: #### 4 [id number] #### [facility] [address] [place] [address] manufacturing quality manager+ Art 143.0 mmol/L Normal 135.0-145. 0 [facility] Comment on above: Performed By: #### 4 [id number] #### [facility] [address] [place] [address] Drawn by Norma Johnson Invalid Interpretation Code [facility] Comment on above: Performed By: #### 4 [id number] #### [facility] [address] [place] [address] FCOHb Art 1.4 % Low 1.5-4.9 [facility] Comment on above: Result Comment: Refe rence range Nonsmoker <1.5% Smoker <5.0% Heavy Smoker <9.0% Performed By: #### 4 [id number] #### [facility] [address] [place] [address] FIO2 BG 28 Invalid Interpretation Code [facility] Comment on above: Performed By: #### 4 [id number] #### [facility] [address] [place] [address] FMetHb Art <1.0 Normal 0.0-1.9 [facility] Comment on above: Performed By: #### 4 [id number] #### [facility] [address] [place] [address] FO2Hb Art 91.2 % Low 93.0-100.0 [facility] Comment on above: Performed By: #### 4 [id number] #### [facility] [address] [place] [address] HCO3 (Bld) [Moles/Vol] 25.9 mmol/L Normal 22.0-26.0 [facility] Comment on above: Performed By: #### 4 [id number] #### [facility] [address] [place] [address] Hemoglobin (Bld) [Mass/Vol] 9.9 g/dL Low 12.0-17.0 [facility] Comment on above: Performed By: #### 4 [id number] #### [facility] [address] [place] [address] Oxygen saturation in Blood 92.8 % Low 95.0-100.0 [facility] Comment on above: Performed By: #### 4 [id number] #### [facility] [address] [place] [address] P CO2 Arterial 47.2 mmHg High 35.0-45.0 [facility] Comment on above: Performed By: #### 4 [id number] #### [facility] [address] [place] [address] P O2 Arterial 63.5 mmHg Low 80.0-100.0 [facility] Comment on above: Performed By: #### 4 [id number] #### [facility] [address] [place] [address] pH Arterial 7.373 Normal 7.350-7.45 0 [facility] Comment on above: Performed By: #### 4 [id number] #### [facility] [address] [place] [address] Sample Site R Radial Normal [facility] Comment on above: Performed By: #### 4 [id number] #### [facility] [address] [place] [address] Sample Type Arterial Draw Normal [facility] Comment on above: Performed By: #### 4 [id number] #### [facility] [address] [place] [address] CBC w/ Auto Diffon 4 Basophils/100 WBC (Bld) 0.9 % Normal 0.0-2.0 [facility] Comment on above: Performed By: #### 2 [id number] #### [facility] [address] [place] [address] Basophils/Leukocytes Auto (Bld) [Pure # fraction] 0.1 E9/L Normal 0.0-0.2 [facility] Comment on above: Performed By: #### 2 [id number] #### [facility] [address] [place] [address] Eosinophils (Bld) [#/Vol] 0.2 E9/L Normal 0.0-0.5 [facility] Comment on above: Performed By: #### 2 [id number] #### [facility] [address] [place] [address] Eosinophils/100 WBC (Bld) 1.7 % Normal 0.0-8.0 [facility] Comment on above: Performed By: #### 2 [id number] #### [facility] [address] [place] [address] Erythrocyte distribution width (RBC) [Ratio] 15.6 % High 10.9-14.2 [facility] Comment on above: Performed By: #### 2 [id number] #### [facility] [address] [place] [address] Hematocrit (Bld) [Volume fraction] 30.2 % Low 37.7-49.0 [facility] Comment on above: Performed By: #### 2 [id number] #### [facility] [address] [place] [address] Hemoglobin (Bld) [Mass/Vol] 10.2 g/dL Low 13.5-17.5 [facility] Comment on above: Performed By: #### 2 [id number] #### [facility] [address] [place] [address] Lymphocytes (Bld) [#/Vol] 1.7 E9/L Normal 1.0-4.0 [facility] Comment on above: Performed By: #### 2 [id number] #### [facility] [address] [place] [address] Lymphocytes/100 WBC (Bld) 17.8 % Normal 14.0-50.0 [facility] Comment on above: Performed By: #### 2 [id number] #### [facility] [address] [place] [address] MCH (RBC) [Entitic mass] 29.9 pg Normal 27.0-34.0 [facility] Comment on above: Performed By: #### 2 [id number] #### [facility] [address] [place] [address] MCHC (RBC) [Mass/Vol] 33.9 g/dL Normal 31.4-36.[address] [facility] Comment on above: Performed By: #### 2 [id number] #### [facility] [address] [place] [address] MCV (RBC) [Entitic vol] 88.1 fL Normal 80.0-100.0 [facility] Comment on above: Performed By: #### 2 [id number] #### [facility] [address] [place] [address] Monocytes (Bld) [#/Vol] 0.7 E9/L Normal 0.2-1.0 [facility] Comment on above: Performed By: #### 2 [id number] #### [facility] [address] [place] [address] Neutrophils (Bld) [#/Vol] 7.0 E9/L Normal 2.0-7.5 [facility] Comment on above: Performed By: #### 2 [id number] #### [facility] [address] [place] [address] Neutrophils/100 WBC (Bld) 72.7 % Normal 36.0-75.0 [facility] Comment on above: Performed By: #### 2 [id number] #### [facility] [address] [place] [address] Platelet 319.0 E9/L Normal 150.0-500. 0 [facility] Comment on above: Performed By: #### 2 [id number] #### [facility] [address] [place] [address] Platelet mean volume (Bld) [Entitic vol] 6.3 fL Low 6.4-10.8 [facility] Comment on above: Performed By: #### 2 [id number] #### [facility] [address] [place] [address] RBC (Bld) [#/Vol] 3.4 E12/L Low 4.3-5.9 [facility] Comment on above: Performed By: #### 2 [id number] #### [facility] [address] [place] [address] WBC corrected for nucl RBC Auto (Bld) [#/Vol] 9.6 E9/L Normal 4.0-11.0 [facility] Comment on above: Performed By: #### 2 [id number] #### [facility] [address] [place] [address] CHEMISTRYOrdered By: SYSTEM SYSTEM on 03-02-2024 Troponin [...] Sensitivity Troponin I Instructions For Use, Milagro Carmen, January 2018) Anion gap [Moles/Vol] 13 mmol/L [...] Sensitivity Troponin I Instructions For Use, Milagro Carmen, January 2018) Urea nitrogen [Mass/Vol] 18 mg/dL Normal 5 - 21 mg/dL [facility] Urea nitrogen/Creatinine [Mass ratio] 16 mg/mg Normal 10 - 20 [facility] CHEMISTRYOrdered By: Sohan Sosa on 03-02-2024 Natriuretic peptide B (Bld) [Mass/Vol] 454 pg/mL High 5 - 80 pg/mL [facility] HemeManSS COAGULATIONOrdered By: Chioma Sosa on 03-02-2024 aPTT Coag (PPP) [Time] 46.0 s High 25.1 - 36.5 second(s) [facility] Auto Coag Comment on above: Interpretive Data: [...] the same coagulation reagent and instrumentation as [facility]. Currently there are no coagulation studies available worldwide for children to 14 days, and no normal ranges. Heparin therapeutic range (represented by Anti-Factor Xa activity of 0.2 - 0.4 U/mL) corresponds to PTT of 56.6 - 109.0 sec. INR Coag (PPP) [Relative time] 2.23 {INR} Invalid Interpretation Code [facility] Auto Coag Comment on above: Interpretive Data: I NR results are specifically intended to assess patients stabilized on long-term Anticoagulation therapy suggested INR s Less Intensive Anticoagulation 2.0 3.0 Conventional Range 3.0 4.5 PT Coag (PPP) [Time] 25.2 s High 9.4 - 1 2.5 second(s) [facility] Auto Coag Comment on above: Interpretive Data: [...] the same coagulation reagent and instrumentation as [facility]. Currently there are no coagulation studies available worldwide for children to 14 days, and no normal ranges. Capillary Glucose POCon 02-03 Glucose [Mass/Vol] 350 mg/dL High 55-99 [facility] Comment on above: Result Comment: Kennedy espitia RN/ Performed By: #### 2 [id number] #### [facility] [address] [place] [address] ED Clinical Summaryon 2023 ED Clinical Summary ED Clinical Summary [place] [id number] ED Clinical Summary Person Information Name: JOSÉ LUIS FAULKNER/[place] Age: 73 Years : 1950 Sex: Male Language: Citizen Of [place] PCP: Mona Baker MD Marital Status: Phone: [phone] Visit Id: Visit Reason: Shortness of breath; SOB Speciality: Acuity: 1 Enc Type: Inpatient Med Service: Medical Arrival: 03/02/2024 08:07:40 Discharge: LOS: 000 04:14 Checkin: 03/02/2024 08:07:40 Checkout: 03/02/2024 12:21:02 Dispo Type: Admitted as IP to this [facility] EVENTS: Event Name Event Status Request Date/Time [...] 03/02/2024 12:21:02 03/02/2024 12:21:02 03/02/2024 12:21:02 ADDRESS: [address] [place] [address] [facility] [place] [id number] PHYS DOC NOTES: MEDICAL INFORMATION: Prescriptions Given: [...] day. ins (more content not included)... Normal [facility] ED Note-Physicianon 03-02-20 ED Note-Physician ED Note-Physician Basic Information Time Seen: Annemarie Tony M.D. 03/02/2024 08:10 Chief Complaint Patient presents with several days of SOB with hx of COPD. pt recently taken off O2 about 3 weeks ago. Solumedrol given per [facility] History of Present Illness The patient is [...] and Complexity of Problems Differential Diagnosis: [] [facility] Data External documents reviewed: [] [...] B-Type Natriuret (more content not included)... Normal [facility] Comment on above: Result Comment: Elec tronically Signed By: Annemarie Tony M.D.\.ricardo\Date and Time Signed: 03/02/24 12:11 EDT ED Patient Education Noteon 03-02-2024 ED Patient Education Note ED Patient Education Note Normal [facility] ED Patient Summaryon 024 ED Patient Summary ED Patient Summary [place] [id number] Patient Discharge Instructions Person Information Name: JOSÉ LUIS FAULKNER Age: 73 Years [facility]: [id number] Arrival Date: 03/02/2024 08:07:40 Discharge Diagnosis: 1:Acute [...] Information Primary Provider: Annemarie Tony M.D. [employer] Associate:None The exam and treatment you received in the Emergency Department were for an urgent problem and are not intended as complete care. It is important that you follow up with a doctor, nurse practitioner, or physician?s roofer assistant for ongoing care. If your symptoms become [...] opioids can be used to help relieve vhffvyvj-zt-zeudqn pain and are often prescribed following a [...] to learn (more content not included)... Normal [facility] FT Blood GasesOrdered By: Bill Lozano on 03-02-2024 a/A Ratio Art 45.20 % Normal >=0.80% [facility] Resp Auto SS AaDO2 Art 77.0 mm[Hg] High 5.0 - 15.0 mmHg [facility] Resp Auto SS Allens Test Positive (03/02/24 8:25 AM) Normal [facility] Resp Auto SS Base Excess Arterial 1.8 mmol/L Low >=2.8mm ol/ L [facility] Resp Auto SS cCa2+ Art 4.60 mg/dL Normal 4.40 - 5.30 mg/dL [facility] Resp Auto SS cCl- Art 104.0 mmol/L Normal 101.0 - 111.0 mmol/L [facility] Resp Auto SS cGlu Art 198 mg/dL High 55 - 99 mg/dL [facility] Resp Auto SS cK+ Art 4.4 mmol/L Normal 3.5 - 5.3 mmol/L [facility] Resp Auto SS cLac Art 0.7 mmol/L Normal 0.5 - 2.2 mmol/L [facility] Resp Auto SS manufacturing quality manager+ Art 143.0 mmol/L Normal 135.0 - 145.0 mmol/L [facility] Resp Auto SS Drawn by Norma Johnson Invalid Interpretation Code [facility] Resp Auto SS FCOHb Art 1.4 % Low 1.5 - 4.9 % [facility] Resp Auto SS Comment on above: Interpretive Data: R eference range Nonsmoker <1.5% Smoker <5.0% Heavy Smoker <9.0% FIO2 BG 28 1 Invalid Interpretation Code [facility] Resp Auto SS FMetHb Art % Normal 0.0 - 1.9 % [facility] Resp Auto SS FO2Hb Art 91.2 % Low 93.0 - 100.0 % [facility] Resp Auto SS HCO3 (Bld) [Moles/Vol] 25.9 mmol/L Normal 22.0 - 26.0 mmol/L [facility] Resp Auto SS Hemoglobin (Bld) [Mass/Vol] 9.9 g/dL Low 12.0 - 17.0 gm/dL [facility] Resp Auto SS P CO2 Arterial 47.2 mm[Hg] High 35.0 - 45.0 mmHg [facility] Resp Auto SS P O2 Arterial 63.5 mm[Hg] Low 80.0 - 100.0 mmHg [facility] Resp Auto SS pH (Bld) 7.373 [pH] Normal 7.350 - 7.450 [facility] Resp Auto SS Sample Site R Radial (03/02/24 8:25 AM) Normal [facility] Resp Auto SS Sample Type Arterial Draw (03/02/24 8:25 AM) Normal [facility] Resp Auto SS HEMATOLOGYOrdered By: SYSTEM SYSTEM [...] Lactic Acid Lvl 1.1 mmol/L Normal 0.5-2.2 [facility] Comment on above: Performed By: #### 2 [id number] #### [facility] [address] [place] [address] MICRO OTHER TESTSOrdered By: Jyothi Naranjo on 03-02-2024 Rapid COV Int NEG Ctl Pass (03/02/24 8:32 AM) Normal [facility] Man Sero Rapid COV Int POS Ctl Pass (03/02/24 8:32 AM) Normal [facility] Sero SARS-CoV+SARS-CoV-2 (COVID-19) Ag IA.rapid Ql (Resp) Not Detected 15 (03/02/24 8:32 AM) Normal Not Detected [facility] Sero Comment on above: Interpretive Data: [employer] Daily Pic Veritor System for Rapid Detection of SARS-CoV-2 [...] or revoked sooner. No Panel InformationOrdered By: [facility]CRO[facility] on 03-02-2024 Blood Culture Charcoal No growth at 2 da ys. Final to follow at 7 days. [facility] Blood Culture Charcoal No growth at 2 da ys. Final to follow at 7 days. [facility] PT & PTTon 03-02-2024 aPTT Coag (PPP) [Time] 46.0 second(s) High 25.1-36.5 [facility] Comment on above: Result Comment: Para [...] the same coagulation reagent and instrumentation as [facility]. Currently there are no coagulation studies available worldwide for children to 14 days, and no normal ranges. Heparin therapeutic range (represented by Anti-Factor Xa activity of 0.2 - 0.4 U/mL) corresponds to PTT of 56.6 - 109.0 sec. Performed By: #### 1 [id number] #### [facility] [address] [place] [address] INR Coag (PPP) [Relative time] 2.23 {INR} Invalid Interpretation Code [facility] Comment on above: Result Comment: INR results are specifically intended to assess patients stabilized on long-term Anticoagulation therapy suggested INR?s ?Less Intensive Anticoagulation? 2.0 ? 3.0 Conventional Range 3.0 ? 4.5 Performed By: #### 1 [id number] #### [facility] [address] [place] [address] PT Coag (PPP) [Time] 25.2 second(s) High 9.4-12.5 [facility] Comment on above: Result Comment: 15 [...] the same coagulation reagent and instrumentation as [facility]. Currently there are no coagulation studies available worldwide for children to 14 days, and no normal ranges. Performed By: #### 1 [id number] #### [facility] [address] [place] [address] Pre-Arrival Noteon 4 Pre-Arrival Note Pre-Arrival Note Pre-Arrival Summary Name: , [facility] Current Date: 03/02/2024 08:19:59 EDT Gender: Date of : Age: 73 Pre-Arrival Type: EMS ETA: 03/02/2024 08:27:00 EDT Primary Care Physician: Presenting Problem: SOB Pre-Arrival User: Eorn Bailey RN Referring Source: Location: [place] Completion Date/Time: 03/02/2024 07:57:00 [facility] Emergency Department Pre-Hospital Report Form Vital Signs: Pre-Hospital Report: Treatment in Route: Response to Treatment: Misc. Issues: Normal [facility] Rapid COVID Antigen ([facility])on 03-02-2024 Rapid COV Int NEG Ctl Pass Normal [facility] Comment on above: Performed By: #### 2 [id number] #### [facility] [address] [place] [address] Rapid COV Int POS Ctl Pass Normal [facility] Comment on above: Performed By: #### 2 [id number] #### [facility] [address] [place] [address] SARS-CoV+SARS-CoV-2 (COVID-19) Ag IA.rapid Ql (Resp) Not detected Normal Not Detected [facility] Comment on above: Result Comment: The Well[employer]? System for Rapid Detection of SARS-CoV-2 is [...] or revoked sooner. Performed By: #### 2 [id number] #### [facility] [address] [place] [address] Troponin 0 Hr.on 03-02-2024 Troponin HS 26.00 pg/mL Normal 15.90-38.4 0 [facility] Comment on above: Result Comment: The 95% CI (Confidence Interval) PPV (Positive Predictive Value) for myocardial infarction in females is 38 pg/mL, in males 51 pg/mL. The results should be used in conjunction with clinical conditions of myocardial infarction. (Access High Sensitivity Troponin I Instructions For Use, [employer], January 2018) Performed By: #### 1 [id number] #### [facility] [address] [place] [address] Troponin 1 Hr.on 03-02-2024 Troponin HS 26.40 pg/mL Normal 15.90-38.4 0 [facility] Comment on above: Order Comment: due @ 0919 Result Comment: The 95% CI (Confidence Interval) PPV (Positive Predictive Value) for myocardial infarction in females is 38 pg/mL, in males 51 pg/mL. The results should be used in conjunction with clinical conditions of myocardial infarction. (Access High Sensitivity Troponin I Instructions For Use, [employer] 2018) Performed By: #### 1 [id number] #### [facility] [address] [place] [address] UA with Cult Rflxon 03-02-20 24 Bilirubin Ql (U) Negative Normal Negative [facility] Comment on above: Performed By: #### 4 [id number] #### [facility] [address] [place] [address] Clarity (U) Clear Normal Clear [facility] Comment on above: Performed By: #### 4 [id number] #### [facility] [address] [place] [address] Color (U) Light-Yellow Normal Yellow [facility] Comment on above: Result Comment: Micr oscopic readings are only performed on those samples that meet specific criteria set forth by [facility]. Performed By: #### 4 [id number] #### [facility] [address] [place] [address] Glucose Ql (U) Trace Abnormal Negative [facility] Comment on above: Performed By: #### 4 [id number] #### [facility] [address] [place] [address] Hemoglobin Auto test strip (U) [Mass/Vol] Negative Normal Negative [facility] Comment on above: Performed By: #### 4 [id number] #### [facility] [address] [place] [address] Ketones Auto test strip Ql (U) Negative Normal Negative [facility] Comment on above: Performed By: #### 4 [id number] #### [facility] [address] [place] [address] Leukocyte esterase Auto test strip Ql (U) Negative Normal Negative [facility] Comment on above: Performed By: #### 4 [id number] #### [facility] [address] [place] [address] Mucus Auto Ql (U) Trace Normal Negative [facility] Comment on above: Performed By: #### 4 [id number] #### [facility] [address] [place] [address] Nitrite Auto test strip Ql (U) Negative Normal Negative [facility] Comment on above: Performed By: #### 4 [id number] #### [facility] [address] [place] [address] pH (U) 5.5 [pH] Invalid Interpretation Code 5.0-9.0 [facility] Comment on above: Performed By: #### 4 [id number] #### [facility] [address] [place] [address] Protein Ql (U) 1+ mg/dL Abnormal Negative [facility] Comment on above: Performed By: #### 4 [id number] #### [facility] [address] [place] [address] RBC Ql (U) 0-3 Normal 0-3 [facility] Comment on above: Performed By: #### 4 [id number] #### [facility] [address] [place] [address] Specific gravity (U) [Rel density] 1.015 Invalid Interpretation Code 1.005-1.03 0 [facility] Comment on above: Performed By: #### 4 [id number] #### [facility] [address] [place] [address] Urobilinogen (U) [Mass/Vol] Negative Normal Negative [facility] Comment on above: Performed By: #### 4 [id number] #### [facility] [address] [place] [address] WBC Auto (Urine sed) [#/Area] 0-5 Normal 0-5 [facility] Comment on above: Performed By: #### 4 [id number] #### [facility] [address] [place] [address] Type of Urine collection method Clean Catch Normal [facility] Comment on above: Performed By: #### 4 [id number] #### [facility] [address] [place] [address] URINALYSISOrdered By: SYSTEM SYSTEM on 03-02-2024 Bilirubin Ql (U) Negative Normal Negativemg /dL FT UA Auto SS Clarity (U) Clear (03/02/24 9:24 AM) Normal Clear FT UA Auto SS Color (U) Light-Yellow 1 (03/02/24 9:24 AM) Normal Yellow [facility] Auto SS Comment on above: Interpretive Data: M icroscopic readings are only performed on those samples that meet specific criteria set forth by [facility]. Glucose Ql (U) Trace mg/dL Invalid Interpretation Code Negativemg /dL FT UA Auto SS Hemoglobin Auto test strip (U) [Mass/Vol] Negative Normal Negativemg /dL FT UA Auto SS Ketones Auto test strip Ql (U) Negative Normal Negativemg /dL FT UA Auto SS Leukocyte esterase Auto test strip Ql (U) Negative Normal NegativeLe u/uL FT UA Auto SS Mucus Auto Ql (U) Trace graded/LPF Normal Negati vegr aded/LPF FT UA Auto SS Nitrite Auto test strip Ql (U) Negative Normal Negativemg /dL [facility] UA Auto SS pH (U) 5.5 *NA* (03/02/24 9:24 AM) Invalid Interpretation Code 5.0 - 9.0 [facility] UA Auto SS Protein Ql (U) 1+ mg/dL Invalid Interpretation Code Negativemg /dL [facility] UA Auto SS RBC Ql (U) 0-3 graded/HPF Normal 0-3graded/ HPF [facility] UA Auto SS Specific gravity (U) [Rel density] 1.015 *NA* (03/02/24 9:24 AM) Invalid Interpretation Code 1.005 - 1.030 [facility] UA Auto SS Urobilinogen (U) [Mass/Vol] Negative Normal Negativemg /dL [facility] UA Auto SS WBC Auto (Urine sed) [#/Area] 0-5 graded/HPF Normal 0-5graded/ HPF [facility] UA Auto SS URINALYSISOrdered By: Eron Bailey on 03-02-2024 UA Spec Desc Clean Catch (03/02/24 9:24 AM) Normal [facility] UA Auto SS XR Chest Single Viewon 03-02 XR Chest Single View Exam Date/Time: 03/02/2024 08:48 EDT Reason for Exam: Difficulty breathing Report IMPRESSION: CARDIOMEGALY WITH INTERSTITIAL EDEMA. CLINICAL HISTORY: Difficulty breathing COMPARISON: 08/27/2023 FINDINGS: Median sternotomy. Pacemaker generator and wires unchanged.. Cardiopericardial silhouette enlarged and unchanged. Pulmonary vasculature indistinct. Ordering Provider: Annemarie Tony FINAL REPORT Dictated: 03/02/2024 11:21 am Signer Maxi BROUSSARD Signed (Electronic Signature): 03/02/2024 11:21 am Signed by: Maxi Davis MD Transcribed by: JUAN Technologist: HERIBERTO Technical Comments Radiation Dose: Ka,r in mGy = . DAP = . Normal [facility] eGFRon 03-02-2024 eGFR 70 mL/min/1.73 m2 Normal >=59 [facility] Comment on above: Performed By: #### 1 [id number] #### [facility] [address] [place] [address] POCT PT/INRon 02-22-2024 POCT INR 1.9 High .7-1.2 [facility] Comment on above: Performed By: #### 2 [id number] #### [facility] [address] [place] [address] POCT PT 21.1 second(s) High 8.0-15.0 [facility] Comment on above: Performed By: #### 2 [id number] #### [facility] [address] [place] [address] POCT INR 1.0 Normal .7-1.2 [facility] Comment on above: Performed By: #### 2 [id number] #### [facility] [address] [place] [address] POCT PT 12.1 second(s) Normal 8.0-15.0 [facility] Comment on above: Performed By: #### 2 [id number] #### [facility] [address] [place] [address] U[facility] Fish and Urine Cyt o ([facility])on 02-19-2024 UV[facility]ISH & UC Diagnosis Info Invalid Interpretation Code [facility] Comment on above: Result Comment: A:Ur [...] on: 02/19/2024 17:39:17 Performed By: #### 1 [id number] #### [facility] [address] [place] [address] Pulmonology Office/Clinic No joi 02-15-2024 Pulmonology Office/Clinic Note Pulmonology Office/Clinic Note [...] of bladder cancer Hyperlipidemia, unspecified Hypertension Hypothyroid MCFP (current) use of insulin Morbid obesity Obesity [...] 200 mg, (more content not included)... Normal [facility] NM PET w/ CT Scan Skull [...] Following the administration of 14.02 millicuries of V43-Hlxjzeoahnlxfqrvmo (FDG), scans were obtained from the base of the skull to the mid thigh on a dedicated PET CT unit. Using the renewals manager\X2019\s standard software, data were reconstructed using filtered [...] 13.5 Imaging Post Administration (mins): 50 Normal [facility] POCT PT/INRon 02-08-2024 POCT INR 1.7 High .7-1.2 [facility] Comment on above: Performed By: #### 2 [id number] #### [facility] [address] [place] [address] POCT PT 18.6 second(s) High 8.0-15.0 [facility] Comment on above: Performed By: #### 2 [id number] #### [facility] [address] [place] [address] Main OR Intraoperative Recor don 02-05-2024 Main OR Intraoperative Record Main OR Intraoperative Record IntraOp Document Type FTURO Summary Primary Physician: Andi WARE MD Finalized Date/Time: 02/05/24 11:34:06 Pt. Name: JOSÉ LUIS FAULKNER/Sex: 1950 Male Med Rec #: [id number] Physician: Andi WARE MD Financial #: [id number] Pt. 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 Name: JOSÉ LUIS FAULKNER/Sex: 1950 Male Med Rec #: [id number] Physician: Andi WARE MD Financial #: [id number] Pt. Type: O Room/Bed: / Admit/Disch: 02/05/24 [...] Limitations: stand by assist Skin Integrity Intact, [place], Warm, & Dry Vitals - EU Blood Pressure 155/70 Pulse 60 bpm Respirations 18 br/min SPO2 Additional MIKE MCCLELLAND Reviewed Yes Specimens Collected Last Modified By: Linda Bates RN 02/05/24 11:27:02 Finalized By: Linda Bates RN Document Signatures Signed By: Darlene Barroso LPN 02/05/24 10:46 Linda Bates RN 02/05/24 11:27 Normal [facility] Operative Reporton Operative Report Operative Report [...] home with antibiotic coverage, Follow up arranged. [facility] Comment on above: Result Comment: Elec tronically Signed By: MIGUELINA BROUSSARD, Andi Mar\Date and Time Signed: 02/05/24 11:36 EDT Reminderson 02-05-2024 Reminders Reminders From: Radha Henley To: EU - Recalls Miguelina; Sent: 12/11/2023 11:16:08 EDT Show up: 06/04/2024 11:16:00 EST Subject: Cysto/FISH/cytol Due Date/Time: 06/23/2024 11:16:00 EST Reminder/Recall Patient is due in August 2024 for 6 month cysto/fish/cytol (bt ck) Pt due in December 2024 for 10 month cysto/fish/cytol Normal [facility] Reminders Reminders From: Radha Henley To: EU - Recalls Miguelina; Sent: 02/05/2024 15:57:14 EDT Show up: 10/02/2024 15:57:00 EDT Subject: Cysto/fish/cytol Due Date/Time: 10/27/2024 15:57:00 EDT Reminder/Recall Patient needs 10 month Cysto/FISH/cytol (bt ck) December 2024 Normal [facility] UroVysion Fish and Urine Cyt o ([facility])on 02-05-2024 [facility] Method of Extraction Catheterized Normal [facility] Comment on above: Performed By: #### 1 [id number] #### [facility] [address] [place] [address] [facility] Number of Jars 1 Invalid Interpretation Code [facility] Comment on above: Performed By: #### 1 [id number] #### [facility] [address] [place] [address] [facility] Specimen Urine Normal [facility] Comment on above: Performed By: #### 1 [id number] #### [facility] [address] [place] [address] [facility] Type of Service Technical Only Normal [facility] Comment on above: Performed By: #### 1 [id number] #### [facility] [address] [place] [address] Pulmonology Office/Clinic No joi 01-23-2024 Pulmonology Office/Clinic [...] Caterina BROUSSARD, Nicolás Chavez, PUL, AYAH [address] [facility] [place] [address]- Additional Instructions: after his testing is completed [...] Hypertension Hypothyroid (more content not included)... Normal [facility] POCT PT/INRon 01-11-2024 POCT INR 2.3 High .7-1.2 [facility] Comment on above: Performed By: #### 2 [id number] #### [facility] [address] [place] [address] POCT PT 23.6 second(s) High 8.0-15.0 [facility] Comment on above: Performed By: #### 2 [id number] #### [facility] [address] [place] [address] POCT PT/INRon 12-28-2023 POCT INR 2.1 High .7-1.2 [facility] Comment on above: Performed By: #### 2 [id number] #### [facility] [address] [place] [address] POCT PT 22.0 second(s) High 8.0-15.0 [facility] Comment on above: Performed By: #### 2 [id number] #### [facility] [address] [place] [address] CT Chest w/o Contraston 12-03 CT Chest [...] Miguel Young DO Transcribed by: JUAN Technologist: YECENIA Normal [facility] POCT PT/INRon 12-21-2023 POCT INR 2.5 High .7-1.2 [facility] Comment on above: Performed By: #### 2 [id number] #### [facility] [address] [place] [address] POCT PT 25.8 second(s) High 8.0-15.0 [facility] Comment on above: Performed By: #### 2 [id number] #### [facility] [address] [place] [address] POCT PT/INRon 12-14-2023 POCT INR 4.0 High .7-1.2 [facility] Comment on above: Performed By: #### 2 [id number] #### [facility] [address] [place] [address] POCT PT 39.3 second(s) High 8.0-15.0 [facility] Comment on above: Performed By: #### 2 [id number] #### [facility] [address] [place] [address] Reminderson 12-11-2023 Reminders Reminders From: Radha Henley To: EU - Recalls Ware; Sent: 09/25/2023 08:35:57 EDT Show up: 11/03/2023 08:35:00 EDT Subject: Cysto/FISH/cytol Due Date/Time: 11/26/2023 08:35:00 EDT Reminder/Recall Patient is due in January for 6 month Cysto/FISH/cytol (bt ck) Spoke to pt and , pt sched for 02/05/24 at [facility]. 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 Normal [facility] Comment on above: Result Comment: Elec tronically Signed By: Caterina BROUSSARD, Nicolás Chavez\.br\Date and Time Signed: 12/05/23 10:47 EDT POCT PT/INRon 12-04-2023 POCT INR 2.4 High .7-1.2 [facility] Comment on above: Performed By: #### 2 [id number] #### [facility] [address] [place] [address] POCT PT 25.0 second(s) High 8.0-15.0 [facility] Comment on above: Performed By: #### 2 [id number] #### [facility] [address] [place] [address] Coding Summary.on 11-26-2023 Coding Summary. VQWMGgib35MRq2gQt+PG hlYWQ+P D2PILJuD03xcHXmrT0gS9SZQSqA JnsoNBRKOFdJFhYvhcVqBP0wtTW jZXJu IC8+MX2mPHWfFvlkjREph5K7yIS 3P01bsc6fUXdltMS1OMIgTnBrwh yiw6cavRn7HImaOkobEmWx KHIadQ68BCL3gO48Lv52iOGkcPV mv9hyeLl5NvLyNWGpKAI1nBndYN znl6ZdFDHhU66ekUNom8J7 HHEkcVmlaPDiOlIzfUE3hG8oAPj tmqeiu9sgptldZkv4bc12wSEzz6 O0sJV4Z0IglkN5WMYqqTKt ZluinGDKpP0qkzgrg1ymqhgcGwZ nAUYcIGf9BLx7SYZxvForVlMpGV 51JEM7OBBwxoAjO1FfRMOw bNfiWkU7v2Z7Fo1OJ1JDIfkfU7U NTUFSWTwvdGQ+QZ99fw68I5FjMd bgOsf6JJXvLFX0gVE4oH1c HKGrOIynd9E4hNV2Y2TgerXvgc8 cv8nmQGMgTJdjO97jxGMdl4T2AM VcnHP5FDLcgPegHbAsoV45 Oyc+BYHieDfob1LrWlbod8oma9q ytOe8RcrmNRFpanGhfGggPGX0p3 IeHo8pDBLenJZ8nFF2rW6d JqAoDiT7XKbzC176ScDfgQPoErj uD46mW6ZyrYU+ITBzEru2ZSTwzL itGH5jL8WdOSUgbumlsNQv eKoiGU6sRPVvwcpvGHSdmM8vZSR wQ3j8HcOrWvY2BUgpX3PbVECobq rtTv78uI3fOhQsIdK8AAxd K4KpdmX2IBBxcMPeOFhbZYD7J21 jo0O1NUBvIELzITZ5dRX9yW8oeY lnbjogbGVmdDsgdmVydGlj MDhvUCvsT094BUIvxZirJxGoZEw uZyBEYXRlOiAgMDYvMjQvMjAyND wvdGQ+ICWdYHT3cTouTWLx oCWsJXooDx0zvYtxfIvuXY0lIXK oeccaZJGyuZ3iDFZydGMpfCqeTW 8bRMJfyorbn579AcKoIHX8 FRTpvMKxC0MjqF5tZaZqGXPxBAS mO2QrmFMdVTcmA674FDarJqH4MR TgvdQcF4FwWLGhfAggYaL3 l9K7Sx8Ve1DrafmvI4HffYEuAoJ iNvqaIHt7Y9MbCrkibHG+PC90YW FjMM76HZv2DIB6iIwuBFtx QKJsZ1GdlX4gLyBlLVOrGMBsZda +PHRhYmxlIHdpZHRoPScxMDAlJy ZavDdzBC5dUo5gVUDeEUTc rJlagSPcYtLly5yzTIQwKGqyDI1 jcCqyA0EmjMR2NELlf8b2Mu50Z9 7zX4TyqZC+OFWqlNI0tNG0 tU3pMvGgLeC7PHdoX483RbSmySJ rGxttc6jqz8uemJb9YxL1SWSbrr GwbLevRKR3g4LkWt43M02t IHdpZHRoPSIxNSUiIHZhbGlnbj0 lcT4wSc2+ANBdyUC9xWZ2nO0iTv AcEyV5BOhyE070MySaiEYc Nbbmj8rry6rsnZb3PpZzRJOizsF cuFoqCNF8r2VhUa32S7HduIznw9 OpJpg7np69zDIgf1H3oFI2 A5UeWOKooxzelKOvcNntMX1iTHN wccvpOEWcqM0mAYKcN0d5SsDfWa G8KMwvK8LficQ0CIGjzHAr FPEbmLPLwG1yresdd7unbrpsFnX dGOPfVNb7UMb1IHHojTcgPdDnSE T6VxA6ZMG7tGMqxJ5soTnv koxrsB2wTre+XBG4aMYqbTJVSQ9 lOjwvdGQ+UAXiLKT9eUphOYoxAI XytZ5eMEWkE1a9HkUvOqW2 DUdhI9UpbxO7TQMepGBbQCVlyXV AwG1teopnn0ckhlgmWnNsVIUrTZ h3DLr5CPEbmOqlLkLtSTM5 QiO4WCR2aOFvpA8bjWinraruzH9 wOyc+RgwplXnoLUS0UEn8O8AcRi a5XMCbtFgsYM2ghMMwMOil Oe1ixBcahIsgNQ1kTSJiwmzmt09 4VnUmm6jrDNZyhFKqKJqiDQW8V4 8vy1L7WMVeZUKhLXM7vYQ2 nD8owIohqyiufNGhoXhocnLlqHl aHHyrKNgnO281SXGoqJapVpYjYE v4L1AoVis1KIIlmTgzMW0t mFOnXOamEg0swOubhBmzCL1iMNE xdzidb947JqFdz0ypZUJadMPeZN qqHZB0S36sa8C9EYEgHKKa UXU2bAA3wC9ptUeaxlchoCJhoYq gnaGikKfoPXbbWPewQ989RUNenP eiOsYggPj3N1JxCak7OOYg qTwiRY0zmTZmKBktWc0bwBufbOk zFQ2ySRRswxbnu473AdQih7paNO OxsUZoKVieGVN8E22er5N6 UUDtHBSmMPS8eRA7eJ7hrPhyemt gbGVmdDsgdmVydGljYWwtYWxpZ2 46IHRvcDsnPlBhdGllbnQg FDmlQHe1X6SpYpidbFN+XE01OKL yAZ78xYSoaMOzq6nlgRz8MgSxFM DdUKG4rAndNAwje7SgMYKi L62gsWZul8R7GFPhtBicjMOzMeL ssBO6hZ2kWGgqabpdi0lhkzreTg xpa8zdjt42eC72A58kXFsx DTEgMPBfOWVbYPYytJpxlo7hpY0 wIi8+KNJmeHY0hHT4bB4xOYUvRw B4QJunM476FaHjpJMnQsoy p3xnp6oimCz1YxS9DBXgecUhlDx jLEA4e9FeMj34A63gAHuaAEGxIB SqVQGnMUYaaCcwvj1wuI6w Ii8+IMLxtNL5bXO9jI5qVlWeQmG 9TCekO764DxTflLUcKmmcR04yB0 JvdXA+VMToYbo1YTDvjDpj OI4biRVsUTrjCz4lFSS5TbNhGpC nTFicH8FhDUNmmqzzlssryWM1IM NwAXAmcW53Is9qtOxjCWNt mSNJtJ8ldrkeb2zkltzyLdVaQMH kBDp3RWh4OANfeCmrPyEzWJN0Cd H0YTW4pZYjwZ5rdCxvfkvi aH7rZ2XoZCHbyhluRf51xY5cWwA jXnQ5VWjwLbg+VkFOIEdJRVNFTi hdFcwJH9mKYEPtSYnkwOX+ KEQpKYB8aSzbESzeTOXyhX1lMDC nJ4b4ZwKpTiT2WQlxJ5PsZCHqpa vgZu42bE2vXwEyDlO5JYgu T0AbfrA0KJZfzIXcBRweESY7V48 me9M0ZBAqLXNvNYB5zDU0kN8aoA lnbjogbGVmdDsgdmVydGlj UZtxVZlkN141XYPcnBqlRvJ2MkF 3KqJ2BJl1Y3IuFbe7GHQsaMkoSU 7nrMEiWDzyYi6mdOoyyIfz CF8mQTDmdlokBQRxaF2vNLGzuJW qvFbaOL9uGJJzuwhlr807XlJpTT P4QOKbkNLcW8NbkR8iXsDs DELrIPSnV5NrbHOiJCboQ533BRt pCmY3YAVtoeHqZ3AgBWDlxMrjQq N4m6H1Hi77OAOQXEBaujao dGQ+TGRhPOC6tXkmYRhlGPWifL5 eKGNnQ2p6SdQsSkC3AJpgZ4SsLH NmkrtoLy52oW5rZyLnJeQ7 HZjkG8NfnaU0OFFpvNVuQJubBDR 7E40ds7I8EQRnQFPhLYS5lIA5dY 1hbGlnbjogbGVmdDsgdmVy hJiyNAxrKKqwR780OCHrtWasTb2 knCZ7Q5RjSwi1YFEjkTzeFC7mhM XiPWxuIa8rxIzznEyzIR4v SNZcizpvQKUweH8jYXRyoUAxiWk rSM5tBRAxjewiv611DkHrWKR9FC WipHVsB3MqvT6zHuBuIFTu VYGdX2OnpLQdEQulT421QUzrOaU 8QZBcteGlO0EcACSylTnlOlO0w4 J7Ao3GaXGnHSZyQX83NX32 NA67T1NiJxzjmPVjvZV+PHRhYmx lIHdpZHRoPScxMDAlJyBzdHlsZT 5cLv9zJAQbYYYsjPdufACe PeQrm3smWQYqEFqvAQ5fuMiwG6R hoFB1MKMsh0o7Zh01V94tJ9FctK A+FMDchES5xOS1bZ3pLpRq DmP7OGvdZ576LyCckSUmOutph6r rq0yqaNp1EcHbKMUcrfIaeCicLW G7n6UyHa29G38vGDwdWUFg QXOfSXAzHTQqkLlexe7vuB7iUj7 +ETRlvJS3tJP9xB7oOqSfSaU2ZN biX815KyCdlJKjTxazX81j Y0DlyHX+FBRdQzd3VHBteMfwZI2 oxZMcISxsSq8rSKX7VmWuSrIeVG hhB6GyZOCkmxjfvzvrbEJ7 ZLTyJQZypT80Ga4qjVyzJb7wVMQ bUKM1GGRxlCHzZ6IyeB1qVkWwCL FjFODxC1FhyYCpQDycI002 WYmpVqA4WOAvcgQxH0ClAFTzgFw pLaW7v6C7Qb7YmNcdyBHtZZ5xYh HtIAl8F5TeJmn2HBBvxLbf JL4kqWIxHHqbAy5ogIhaiRhmFA0 cNITuxicmr320TaSud9ixQPVqxX GhJSznBNE1L06tv2X3OMLe TDBuFEP1wOS1yC5auHcwwjvrqSD oiDfcckMyqHweODvhLZbzH225SY OedXghExXPPnb4N6EjGri6 AEVxsWorHX0jxFKzQTruJi1mzRf muCksCW7nFXKprlxem809YxYym2 srXWKchLRqODgnMAU5S51m a7Q2NPOrSCXfKYZ7cFL8iK4fpTt nbjogbGVmdDsgdmVydGljYWwtYW mzB334TLGkfWhdYh3QQhu6 G5QmRip8NGGgzQjoAY6gxWPiCGn kVd2ycQbmpZhfIY3pHNCoulhde5 33WdEph8htXNPvzBMmIZcb FHF3T87cb6G3FCAwCNFgBTN7jXC 0oF4mbLfctsjojKApoCefkyEbwY ukAMbuFVqnA927XRYelLjl PlBheWVyOjwvdGQ+CN19bi50C7J aHqhnTzu9HNPdULI9pKM5cA8hYU TbGGamt1Y1cFR6I4IqulXf lc7ip6cnIMPcV (more content not included)... Normal [facility] POCT PT/INRon 11-23-2023 POCT INR 1.5 High .7-1.2 [facility] Comment on above: Performed By: #### 2 [id number] #### [facility] [address] [place] [address] POCT PT 16.5 second(s) High 8.0-15.0 [facility] Comment on above: Performed By: #### 2 [id number] #### [facility] [address] [place] [address] Consent for Treatmenton 11-03 Consent for Treatment [id number] Normal [facility] Medication Refillon 11-19-19 Medication Refill Patient: [...] Daily, # 30 tab(s), Refills(s) 0, Pharmacy: [facility], 172.7, cm, 03/09/23 15:05:00 EDT, Height/Length Dosing, 104.5, kg, 03/09/23 15:05:00 EDT, Weight Dosing Coumadin 4 mg Tab: See Instructions, take 6mg on sunday, take 4m g all other days, # 96 tab(s), Refills(s) 1, Pharmacy: [facility], 172, cm, 10/31/23 14:00:00 EDT, Height/Length Dosing, 101.2, kg, 10/31/23 14:00:00 EDT, Weight Dosing DuoNeb 2.5 mg-0.5 mg/3 mL Soln-Inh: 3 mL, Inhalation, QID, 1 EA, Refill(s) 0, [facility], 172.7, cm, 03/09/23 15:05:00 EDT, Height/Length Dosing, 104.5, kg, 03/09/23 15:05:00 EDT, Weight Dosing alprazolam 0.25 mg Tab: 0.25 mg = 1 tab(s), Oral, TID, PRN anxiety, # 30 tab(s), Refills(s) 2, other reason (Rx) carvedilol 25 mg Tab: 25 mg = 1 tab(s), Oral, BID, # 120 tab(s), Refills(s) 0, Pharmacy: [facility], 172, cm, 07/17/21 14:15:00 EST, Height/Length Dosing, 113, kg, 07/17/21 14:15:00 EST, Weight Dosing cyanocobalamin 1000 mcg/mL Inj: 1,000 mcg = 1 mL, IntraMuscular, qMonth, syringes for B12 injections-3ml, 25 guage 1 inch quantity sufficient for injections., # 10 mL, Refills(s) 1, Pharmacy: [facility], 177, cm, 04/12/23 9:03:00 EST, Height/Length Dosing, 101.6, kg, 11/0... nebulizer machine: nebulizer machine, See Instructions, 1 EA, 0, please provide machine with supplies, Supply torsemide 20 mg Tab: See Instructions, 1 tab(s) Oral Daily and then addtional 1 tab oral daily as needed for Leg swelling or weight gain of 3 pounds, # 60 tab(s), Refills(s) 0, Pharmacy: [facility], 177, cm, 08/27/23 20:45:00 [...] Active adwoa (more content not included)... [facility] Physician Orderon 11-19-2023 Physician Order [id number]#1.00TIFF [facility] Consent for Treatmenton 11-02 Consent for Treatment [id number]#1.00TIFF [facility] POCT PT/INRon 11-16-2023 POCT INR 1.8 High .7-1.2 [facility] Comment on above: Performed By: #### 2 [id number] #### [facility] [address] [place] [address] POCT PT 19.4 second(s) High 8.0-15.0 [facility] Comment on above: Performed By: #### 2 [id number] #### [facility] [address] [place] [address] Consent for Treatmenton 11-02 Consent for Treatment [id number]#1.00TIFF [facility] Insurance Correspondenceon 0 11-01-2023 Insurance Correspondence [id number]#1.00TIFF [facility] Pulmonary Function Studieson 11-01-2023 Pulmonary Function Studies PULMONARY FUNCTION TEST: 10/24/2023 REQUESTING PROVIDER: Felipa Milligan M.D., F.A.C.C. REASON FOR TESTING: High-risk medication. Spirometry results are acceptable and reproducible. The FVC was 2.5 liters or 64% of predicted. FEV1 was 1.73 liters or 59% of predicted with a ratio of 69%. Lung volumes showed a total lung capacity of 71% of predicted, residual volume of 94% of predicted with a ratio of 52%. Diffusion capacity for carbon monoxide was 58% of predicted and when adjusted to alveolar volume was 101% of predicted. IMPRESSION: Pulmonary function test results are suggestive [...] capacity and the diffusion capacity since then. READ BY: Nicolás Diggs M.D. ca Dictated: 10/30/2023 [id number] Transcribed: 11/01/2023 cc:Felipa Milligan M.D., FEvaCOri [facility] Comment on above: Result Comment: Elec tronically Signed By: Caterina BROUSSARD, Nicolás Shine.br\Date and Time Signed: 11/01/23 23:16 EDT Ambulatory Visit Summaryon 0 10-31-2023 Ambulatory Visit Summary JOSÉ LUIS FAULKNER :1950 Visit Date:10/31/2023 Ambulatory Visit Instructions Your Care Team Attending Physician - Linnea GREER, Armani Primary Care Physician - Olivia BROUSSARD, Mona Ward Primary Nurse - Daren MCCLELLAND, iLnda Corado RN, Hattie Carter This Is Your Medications List Misc Prescription (nebulizer machine) acetaminophen (acetaminophen 325 mg Tab) albuterol (Pro-Air HFA CFC free 90 mcg/inh MDI) albuterol-ipratropium (DuoNeb 2.5 mg-0.5 mg/3 mL Soln-Inh) alprazolam (alprazolam 0.25 mg Tab) amiodarone amoxicillin (amoxicillin 500 mg Cap) apixaban (Eliquis 5 mg oral tablet) aripiprazole (aripiprazole 5 mg Tab) aspirin (aspirin 81 mg Oral EC Tab) atorvastatin (atorvastatin 80 mg Tab) carbidopa-levodopa (carbidopa-levodopa 25 mg-100 mg Tab) carvedilol (carvedilol 25 mg Tab) cholecalciferol (Vitamin D3 1000 intl units oral tablet) cyanocobalamin (cyanocobalamin 1000 mcg/mL Inj) enalapril (enalapril 10 mg Tab) glimepiride (glimepiride 2 mg Tab) insulin isophane (NovoLIN N FlexPen 100 units/mL subcutaneous suspension) insulin lispro (Humalog) isosorbide mononitrate (isosorbide mononitrate 60 mg ER Tab) lamotrigine (Lamictal 200 mg Tab) levothyroxine (levothyroxine 100 mcg (0.1 mg) Tab) levothyroxine (levothyroxine 75 mcg (0.075 mg) Tab) magnesium oxide (magnesium oxide 400 mg Tab) metformin (metformin 1000 mg Tab) multivitamin with minerals (Multivitamins and Minerals) nitroglycerin (Nitro 0.4 mg Tab) pantoprazole (Pantoprazole [address] Tab) spironolactone (Aldactone 25 mg Tab) tamsulosin (tamsulosin 0.4 mg Cap) torsemide (torsemide 20 mg Tab) ubiquinone (Co-Q10 100 mg oral capsule) Procedures Performed Circumcision (07/25/2022), TURBT - Transurethral resection of [...] Esophagogastroduodenoscopy and biopsy, Mastoidectomy. Discharge Vitals Temperature (Oral) 37 ?C Heart Rate (Peripheral) 59 Respiratory Rate 16 Blood Pressure 112/66 Height 172 cm Weight 101.2 kg BMI 34.21 What to do next Scheduled Follow-Up Appointments Sunday 9:00 AM EDT With: Where: [facility] Sunday 10:00 AM EDT With: Caterina BROUSSARD, [place] Where: [facility] You Need to Schedule the Following Appointments Follow Up with Armani Yarbrough DO, ONC When: Comments: plan iv iron. 2 or 3 doses. f/u in 1 year. epo cbc, cmp iron studies every three months. Where: [facility] [address] [place] [address]. [place] [address]- [phone] Fax Business (1) Medications What How Much When Why Instructions Unchanged acetaminophen (acetaminophen 325 mg Tab) 2 Tablets By Mouth Every 6 hours as needed for Pain Unchanged albuterol (Pro-Air HFA CFC free 90 mcg/ inh MDI) 2 Puffs Inhalation Every 4 hours as needed for Shortness of breath or wheezing Unchanged albuterol-ipratropium (DuoNeb 2.5 mg-0.5 mg/ 3 mL Soln-Inh) 3 Milliliter Inhalation 4 times a day Unchanged alprazolam (alprazolam 0.25 mg Tab) 1 Tablets By Mouth 3 times a day as needed for anxiety Unchanged amiodarone 200 Milligram By Mouth Every day Unchanged amoxicillin (amoxicillin 500 mg Cap) 1 Capsules By Mouth [address] Ruiz Unchanged apixaban (Eliquis 5 mg oral tablet) 1 Tablets By Mouth 2 times a day Unchanged aripiprazole (aripiprazole 5 mg Tab) 2 Tablets By Mouth Every day Unchanged aspirin (aspirin 81 mg Oral EC Tab) 1 Tablets By Mouth Every day Unchanged atorvastatin (atorvastatin 80 mg Tab) 1 Tablets By Mouth At bedtime Unchanged carbidopa-levodopa (carbidopa-levodopa 25 mg-100 mg Tab) 1.5 Tablets By Mouth 3 times a day Unchanged carvedilol (carvedilol 25 mg Tab) 1 Tablets By Mouth 2 times a day Acute systolic CHF (congestive heart failure) Unchanged cholecalciferol (Vitamin D3 1000 intl units oral tablet) 1 Tablets By Mouth Every day Unchanged cyanocobalamin (cyanocobalamin 1000 mcg/ mL Inj) 1 Milliliter Intramuscular Once a month syringes for B12 injections-3ml, 25 guage 1 inch quantity sufficient for injections. Unchanged enalapril (enalapril 10 mg Tab) 1 Tablets By Mouth 2 times a day Unchanged glimepiride (glimepiride 2 mg Tab) 1 Tablets By Mouth 2 times a day Unchanged insulin isophane (NovoLIN N FlexPen 100 units/ mL subcutaneous suspension) 20 Units Subcutaneous 2 times a day Unchanged insulin lispro (Humalog) See instructions 0-150 = no coverage 151-200 = 2 units 201-250 = 4 units 251-300 = 6 units 301-350 = 8 units 351-400 = (more content not included)... [facility] Consent for Treatmenton 10-03 Consent for Treatment [id number]#1.00TIFF [facility] Oncology Progress Noteon Oncology Progress Note Chief Complaint Anemia; no concerns. Oncological History/ROS/PE/Assessment and Plan HPI 72-year-old male past medical history significant bipolar, bladder cancer, BPH, CAD with remote CABG x4 grafts, carotid artery disease, Charcot joint of the foot, chronic anemia, chronic anticoagulation, chronic GERD, chronic systolic heart failure, colon polyps, bladder cancer, hyperlipidemia, hypertension, hypothyroidism, morbid obesity, JASMIN on CPAP, paroxysmal atrial fibrillation, Parkinson's, ICD with remote ventricular tachycardia, type 2 diabetes. He has a family history of colon cancer. He has been seen by Dr. Tayo Miguel for many years for chronic intermittent iron deficiency and has received IV iron in the past. Recently he has had a few colonoscopies to see if he has any bleeding. Surveillance colonoscopy in April 2019 showed small external hemorrhoids, moderate internal hemorrhoids and sigmoid diverticulosis. Also 5 polyps. A follow-up colonoscopy in July 2019 Denies any complaints. He denies dark or bloody stools. He is doing well. 07/14/21 Has not been seen in our clinic since November 2019. He has had multiple procedures over the last year, most recently with his pacemaker being replaced in Apr 2021. He went into A Fib a week post op and had flash pulmonary edema. He was eventually cardioverted and returned to [facility]. He had a normal heart cath in May 2021. His daughter states that over the last month he has been having increased trouble with walking, he is more fatigued, has dyspnea on exertion and is weak. He states yesterday he fell and hit his head, but did not want to get checked out. He denies dizziness or balance issues, just feels weak. He does note some orthostatic hypotension. Otherwise he denies headaches, n/v/d/c, chest pains or any new pains. He also denies dark or bloody stools. He has been taking oral iron 325mg daily since March 2021 up until about [address] Baker referred him to our practice for continued anemia despite the oral iron. We do not have any recent labs, so will complete cbc, cmp, iron studies and epo today. 04/12/23 diagnosed with parkinsonian dementia. he is recently diagnosed with a bladder cancer. he is very fatigued. Improved much from a month ago. he had a lot of fluid overload. He notes a mini stroke during hospitalization in mar 2023. 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 recent hb from Dr. Baker was 10.8, normal plt and wbc. 10/31/23 Get a short hospitalization in August for renal insufficiency. His creatinine recovered to 1.4 which is near his baseline prior to discharge. He has a nonhealing ulcer on L foot. 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 Significant other notes his parkinsonian is advancing. Physical Examination VS/Measurements General: Alert and oriented, No acute distress. minimally flat affect. Eye: Pupils are equal, round and reactive to light, Extraocular movements are intact, Normal conjunctiva. HENT: Normocephalic, Oral mucosa is moist, No pharyngeal erythema. Neck: Supple, Non-tender, No carotid bruit, No jugular venous distention, No lymphadenopathy. Respiratory: Lungs are clear to auscultation, Respirations are non-labored, Breath sounds are equal, Symmetrical chest wall expansion. Cardiovascular: Normal rate, Regular rhythm, No murmur, BLE 1+ edema. unchanged Gastrointestinal: Soft, Non-tender, Normal bowel sounds. Lymphatics: No cervical, supraclavicular, axilla, inguinal adenopathy.. Musculoskeletal Normal range of motion. Integumentary: Warm, Dry, [place]. Neurologic: Alert, Oriented, Normal sensory. Psychiatric: Cooperative, Appropriate mood & affect. Impression and Plan Anemia is multifactorial, some degree from renal disease/chronic inflammation, also Recurrent iron deficiency anemia He has received IV iron in the past. Colonoscopy in April 2019 showed no obvious area of bleeding and 5 separate polyps were removed. He does have internal and external hemorrhoids. Has required IV iron in the past Iron again low in october 2023, no anemia yet though. b12 deficiency. he was on b12 gummies when checked. value was 265. will start im monthly shots. 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 monitored with Dr. Ware. He is on chronic anticoagulation for atrial fibrillation. He is being transitioned to coumadin from eliquis for cost reasons. Follow-up With When Contact Information Armani Yarbrough DO, ONC [facility] [address] [place] [address]- [phone] Fax Business (1) Additional Instructions: Medications acetaminophen 325 mg Tab, 650 mg= 2 tab(s), Oral, q6hr, PRN Aldactone 25 mg Tab, 25 mg= 1 tab(s), Oral, Daily alprazolam 0.25 mg Tab, 0.25 mg= 1 tab(s), Oral, TID, PRN, 2 refills amiodarone, 200 mg, Oral, Daily amoxicillin 500 mg Cap, 500 mg= 1 cap(s), Oral, BID aripiprazole 5 mg Tab, 10 mg= 2 tab(s), Oral, Daily aspi (more content not included)... [facility] Reference Lab Reporton 10-30 Reference Lab Report [id number]#1.00TIFF [facility] Consent for Treatmenton 10-03 Consent for Treatment [id number]#1.00TIFF [facility] Pulmonary Function Testson 0 10-24-2023 Pulmonary Function Tests [id number]#1.00TIFF [facility] ECG 12 Leadon 10-17-2023 ECG revealed atrial pacemaker rhythm, IVCD and nonspecific ST and T changes [facility] Work Phone: Erythropoiet Lvlon 4 Erythropoietin (EPO) Qn 27.1 mIU/mL High 2.6-18.5 [facility] Comment on above: Result Comment: [employer] UniCel DxI 800 Immunoassay System Values obtained with different assay methods or kits cannot be used interchangeably. Results cannot be interpreted as absolute evidence of the presence or absence of malignant disease. Performed at: [address] [id number] PhD Erick Nielsen Performed By: #### 4 [id number], [id number] #### [facility] [address] [place] [address] Free K+L Lt Chains,Qn,Son Immunoglobulin light chains.kappa.free (S) [Mass/Vol] 51.2 mg/L High 3.3-19.4 [facility] Comment on above: Performed By: #### 4 [id number], [id number] #### [facility] [address] [place] [address] Immunoglobulin light chains.kappa.free/Immu noglobulin light chains.lambda.free (S) [Mass ratio] 1.46 Invalid Interpretation Code 0.26-1.65 [facility] Comment on above: Result Comment: Perf ormed at: [facility] [address] [id number] PhD Erick Nielsen Performed By: #### 4 [id number], [id number] #### [facility] [address] [place] [address] Immunoglobulin light chains.lambda.free [Mass/Vol] 35.0 mg/L High 5.7-26.3 [facility] Comment on above: Performed By: #### 4 [id number], [id number] #### [facility] [address] [place] [address] MARGUERITE and PE, Serumon 10-17-19 24 Albumin [Mass/Vol] 3.5 g/dL Invalid Interpretation Code 2.9-4.4 [facility] Comment on above: Performed By: #### 4 [id number], [id number] #### [facility] [address] [place] [address] Albumin/Globulin [Mass ratio] 1.0 {ratio} Invalid Interpretation Code 0.7-1.7 [facility] Comment on above: Performed By: #### 4 [id number], [id number] #### [facility] [address] [place] [address] Alpha 1 globulin Elph [Mass/Vol] 0.2 g/dL Invalid Interpretation Code 0.0-0.4 [facility] Comment on above: Performed By: #### 4 [id number], [id number] #### [facility] [address] [place] [address] Alpha 2 globulin Elph [Mass/Vol] 1.2 g/dL High 0.4-1.0 [facility] Comment on above: Performed By: #### 4 [id number], [id number] #### [facility] [address] [place] [address] Beta globulin Elph [Mass/Vol] 1.1 g/dL Invalid Interpretation Code 0.7-1.3 [facility] Comment on above: Performed By: #### 4 [id number], [id number] #### [facility] [address] [facility] [place] [address] Gamma globulin Elph [Mass/Vol] 1.1 g/dL Invalid Interpretation Code 0.4-1.8 [facility] Comment on above: Performed By: #### 4 [id number], [id number] #### [facility] [address] [facility] [place] [address] Globulin (S) [Mass/Vol] 3.6 g/dL Invalid Interpretation Code 2.2-3.9 [facility] Comment on above: Performed By: #### 4 [id number], [id number] #### [facility] [address] [facility] [place] [address] IgA [Mass/Vol] 246 mg/dL Invalid Interpretation Code 61-437 [facility] Comment on above: Performed By: #### 4 [id number], [id number] #### [facility] [address] [facility] [place] [address] IgG [Mass/Vol] 1031 mg/dL Invalid Interpretation Code 6031613 [facility] Comment on above: Performed By: #### 4 [id number], [id number] #### [facility] [address] [place] [address] IgM [Mass/Vol] 102 mg/dL Invalid Interpretation Code 15-143 [facility] Comment on above: Performed By: #### 4 [id number], [id number] #### [facility] [address] [place] [address] Interpretation IEP [Interp] Comment Invalid Interpretation Code [facility] Comment on above: Result Comment: No m onoclonality detected. Performed By: #### 4 [id number], [id number] #### [facility] [address] [place] [address] Laboratory comment Alonso (Report) Comment Invalid Interpretation Code [facility] Comment on above: Result Comment: Prot ein electrophoresis scan will follow via computer, mail, or cerner analyst delivery. Performed at: [address] [id number] PhD Erick Nielsen Performed By: #### 4 [id number], [id number] #### [facility] [address] [place] [address] Protein [Mass/Vol] 7.1 g/dL Invalid Interpretation Code 6.0-8.5 [facility] Comment on above: Performed By: #### 4 [id number], [id number] #### [facility] [address] [place] [address] Protein.monoclonal Elph [Mass/Vol] Not Observed Invalid Interpretation Code Not Observed [facility] Comment on above: Performed By: #### 4 [id number], [id number] #### [facility] [address] [place] [address] Methylmalonic Acidon 024 Methylmalonate [Moles/Vol] 178 nmol/L Invalid Interpretation Code 0-378 [facility] Comment on above: Result Comment: This test was developed and its performance characteristics determined by [facility]. It has not been cleared or approved by the Food and Drug Administration. Performed at: [address] [id number] MD Timoteo Breen Performed By: #### 4 [id number], [id number] #### [facility] [address] [place] [address] Physician Orderon 10-17-2023 Physician Order [id number]#1.00TIFF Normal [facility] CBC w/ Auto Diffon 4 Basophils/100 WBC (Bld) 1.3 % Normal 0.0-2.0 [facility] Comment on above: Performed By: #### 2 381135, 20971190, 0664604, 4259296, 1816894, 6272089, 7425902 #### [facility] [address] [place] [address] Basophils/Leukocytes Auto (Bld) [Pure # fraction] 0.1 E9/L Normal 0.0-0.2 [facility] Comment on above: Performed By: #### 2 531119, 24931948, 7656818, 4165205, 6997149, 4968571, 8562399 #### [facility] [address] [place] [address] Eosinophils (Bld) [#/Vol] 0.3 E9/L Normal 0.0-0.5 [facility] Comment on above: Performed By: #### 2 582895, 64854472, 4482174, 7214790, 7613560, 4802182, 2402639 #### [facility] [address] [place] [address] Eosinophils/100 WBC (Bld) 3.8 % Normal 0.0-8.0 [facility] Comment on above: Performed By: #### 2 764775, 97833889, 6643976, 0736030, 1593243, 6268746, 2983691 #### [facility] [address] [place] [address] Erythrocyte distribution width (RBC) [Ratio] 16.5 % High 10.9-14.2 [facility] Comment on above: Performed By: #### 2 278483, 36145966, 0423474, 9727135, 2762835, 1069673, 0997180 #### [facility] [address] [place] [address] Hematocrit (Bld) [Volume fraction] 34.1 % Low 37.7-49.0 [facility] Comment on above: Performed By: #### 2 785960, 51269995, 5376872, 1293875, 0487508, 4223738, 6715503 #### [facility] [address] [place] [address] Hemoglobin (Bld) [Mass/Vol] 11.2 g/dL Low 13.5-17.5 [facility] Comment on above: Performed By: #### 2 239906, 94709546, 7061745, 1813001, 2085915, 7874463, 1101946 #### [facility] [address] [place] [address] Lymphocytes (Bld) [#/Vol] 1.4 E9/L Normal 1.0-4.0 [facility] Comment on above: Performed By: #### 2 941942, 52433658, 8645780, 8464372, 4107975, 0633688, 5108051 #### [facility] [address] [place] [address] Lymphocytes/100 WBC (Bld) 16.6 % Normal 14.0-50.0 [facility] Comment on above: Performed By: #### 2 463630, 21000544, 7645089, 1978658, 3413321, 3741079, 0265796 #### [facility] [address] [place] [address] MCH (RBC) [Entitic mass] 28.6 pg Normal 27.0-34.0 [facility] Comment on above: Performed By: #### 2 161162, 27974999, 3766864, 6464062, 8497921, 0591347, 0666088 #### [facility] [address] [place] [address] MCHC (RBC) [Mass/Vol] 32.9 g/dL Normal 31.4-36.[address] [facility] Comment on above: Performed By: #### 2 126453, 87915022, 3803669, 3499891, 5478561, 2447397, 8415057 #### [facility] [address] [place] [address] MCV (RBC) [Entitic vol] 86.9 fL Normal 80.0-100.0 [facility] Comment on above: Performed By: #### 2 768414, 42701599, 5925033, 3573550, 6654859, 1027434, 2550873 #### [facility] [address] [place] [address] Monocytes (Bld) [#/Vol] 0.5 E9/L Normal 0.2-1.0 [facility] Comment on above: Performed By: #### 2 863281, 64549239, 8070280, 8905100, 6318250, 9241551, 5377558 #### [facility] [address] [place] [address] Neutrophils (Bld) [#/Vol] 5.9 E9/L Normal 2.0-7.5 [facility] Comment on above: Performed By: #### 2 568303, 99231968, 5615223, 5168709, 4705814, 9405711, 4951983 #### [facility] [address] [place] [address] Neutrophils/100 WBC (Bld) 72.1 % Normal 36.0-75.0 [facility] Comment on above: Performed By: #### 2 050308, 58075898, 8165193, 8644616, 0793952, 0793343, 9137362 #### [facility] [address] [place] [address] Platelet mean volume (Bld) [Entitic vol] 7.0 fL Normal 6.4-10.8 [facility] Comment on above: Performed By: #### 2 167243, 33746440, 5710608, 0126395, 3059673, 6242049, 7478498 #### [facility] [address] [place] [address] Platelets (Bld) [#/Vol] 286.0 E9/L Normal 150.0-500. 0 [facility] Comment on above: Performed By: #### 2 188888, 71669569, 0093875, 4302489, 8198921, 6543569, 6047820 #### [facility] [address] [place] [address] RBC (Bld) [#/Vol] 3.9 E12/L Low 4.3-5.9 [facility] Comment on above: Performed By: #### 2 250026, 36806085, 3141007, 8561968, 9185118, 7451714, 7009886 #### [facility] [address] [place] [address] WBC corrected for nucl RBC Auto (Bld) [#/Vol] 8.3 E9/L Normal 4.0-11.0 [facility] Comment on above: Performed By: #### 2 301142, 42102092, 4375704, 7675249, 0160529, 5237612, 6732695 #### [facility] [address] [place] [address] CHEMISTRYOrdered By: SYSTEM SYSTEM on 10-13-2023 Albumin [...] 10-13-2023 Albumin [Mass/Vol] 4.2 g/dL Normal 3.3-5.0 [facility] Comment on above: Performed By: #### 2 128437, 84910712, 3751376, 6373326, 0920628, 0054274, 2744585 #### [facility] [address] [place] [address] Albumin/Globulin (S) [Mass conc ratio] 1.4 Normal 1.1-2.2 [facility] Comment on above: Performed By: #### 2 068492, 41988730, 4687763, 6719026, 7079151, 9194101, 1158977 #### [facility] [address] [place] [address] ALP [Catalytic activity/Vol] 80 Int._Unit/L Normal 21-98 [facility] Comment on above: Performed By: #### 2 122746, 41743330, 7851548, 3702070, 4099715, 7580591, 3749655 #### [facility] [address] [place] [address] ALT No additional P-5'-P [Catalytic activity/Vol] 16 Int._Unit/L Normal 6-46 [facility] Comment on above: Performed By: #### 2 511044, 28885668, 4369059, 0931111, 2091776, 3792271, 2743365 #### [facility] [address] [place] [address] Anion gap [Moles/Vol] 14 mmol/L Normal 6-[address] [facility] Comment on above: Performed By: #### 2 326690, 05896053, 9612104, 3081055, 2489423, 6345351, 9064561 #### [facility] [address] [place] [address] AST [Catalytic activity/Vol] 19 Int._Unit/L Normal 5-43 [facility] Comment on above: Performed By: #### 2 703086, 44932091, 4153562, 6073352, 1481952, 0314474, 5781926 #### [facility] [address] [place] [address] Bilirubin [Mass/Vol] 0.4 mg/dL Normal 0.0-1.1 [facility] Comment on above: Performed By: #### 2 685183, 41753121, 2065526, 4745345, 0046962, 0466157, 6042174 #### [facility] [address] [place] [address] Calcium [Mass/Vol] 8.7 mg/dL Low 8.9-11.1 [facility] Comment on above: Performed By: #### 2 524128, 67654455, 0529310, 4339627, 4881956, 6393081, 5607009 #### [facility] [address] [place] [address] Chloride [Moles/Vol] 105 mmol/L Normal 101-111 [facility] Comment on above: Performed By: #### 2 378137, 44697762, 8032969, 2328516, 3544764, 2133324, 8231446 #### [facility] [address] [place] [address] CO2 [Moles/Vol] 29 mmol/L Normal 21-31 [facility] Comment on above: Performed By: #### 2 346808, 37171821, 4663904, 6274891, 3800405, 7827325, 8089248 #### [facility] [address] [place] [address] Creatinine [Mass/Vol] 1.3 mg/dL Normal 0.5-1.[address] [facility] Comment on above: Performed By: #### 2 465566, 35480501, 8982688, 5932843, 4517365, 8303757, 1766614 #### [facility] [address] [place] [address] Globulin (S) [Mass/Vol] 3.1 g/dL Normal 1.4-4.0 [facility] Comment on above: Performed By: #### 2 401430, 63371786, 4530471, 8563611, 6928523, 6170649, 8285050 #### [facility] [address] [place] [address] Glucose [Mass/Vol] 204 mg/dL High 55-199 [facility] Comment on above: Performed By: #### 2 288158, 04980947, 4069515, 1408101, 1996605, 9608479, 2576359 #### [facility] [address] [place] [address] Potassium [Moles/Vol] 4.1 mmol/L Normal 3.5-5.[address] [facility] Comment on above: Performed By: #### 2 405366, 24063090, 7921730, 8180145, 8242444, 6598962, 3620974 #### [facility] [address] [place] [address] Protein [Mass/Vol] 7.3 g/dL Normal 6.0-7.8 [facility] Comment on above: Performed By: #### 2 410988, 74470836, 0306882, 4748969, 2440919, 5719752, 5721260 #### [facility] [address] [place] [address] Sodium [Moles/Vol] 144 mmol/L Normal 135-145 [facility] Comment on above: Performed By: #### 2 355034, 07611119, 1528642, 9802221, 1765291, 3909613, 4784054 #### [facility] [address] [place] [address] Urea nitrogen [Mass/Vol] 21 mg/dL Normal 5-21 [facility] Comment on above: Performed By: #### 2 940638, 36080940, 8328875, 6210990, 1826342, 3818137, 5109766 #### [facility] [address] [place] [address] Urea nitrogen/Creatinine [Mass ratio] 16 No Units Normal 10-20 [facility] Comment on above: Performed By: #### 2 628125, 13508626, 1451629, 7951616, 9081915, 8928787, 0146463 #### [facility] [address] [place] [address] Consent for Treatmenton 10-02 Consent for Treatment [id number] Normal [facility] Ferritinon 10-13-2023 Ferritin [Mass/Vol] 35 ng/mL Normal 24-336 [facility] Comment on above: Performed By: #### 2 789975, 02810832, 5663775, 1349707, 4133268, 4290300, 3712320 #### [facility] [address] [place] [address] HEMATOLOGYOrdered By: SYSTEM SYSTEM on 10-13-2023 Basophils/100 [...] 10-13-2023 Iron [Mass/Vol] 60 microgram/dL Normal 35-153 [facility] Comment on above: Performed By: #### 2 205480, 45569941, 2309780, 9878052, 5709935, 7949122, 0884439 #### [facility] [address] [place] [address] Iron Saturationon 10-13-2023 Iron binding capacity [Mass/Vol] 326 microgram/dL Normal 250-400 [facility] Comment on above: Performed By: #### 2 483977, 32669670, 3766501, 4550675, 6650651, 5207850, 8907941 ####[facility] [address] [place] [address] Iron saturation [Mass fraction] 18 % Low 20-50 [facility] Comment on above: Performed By: #### 2 585669, 14542571, 6980597, 1518268, 8660219, 3852144, 1029149 ####[facility] [address] [place] [address] Retic Counton 10-13-2023 Reticulocytes/100 RBC (Bld) 1.5 % Normal .5-2.2 [facility] Comment on above: Performed By: #### 4 36564682, [id number] #### [facility] [address] [place] [address] Transferrinon 10-13-2023 Transferrin [Mass/Vol] 233 mg/dL Normal 200-370 [facility] Comment on above: Performed By: #### 2 595426, 59728689, 4320999, 9483412, 2166637, 6339064, 3964180 ####[facility] [address] [place] [address] eGFRon 10-13-2023 eGFR 57 mL/min/1.73 m2 Low >=59 [facility] Comment on above: Order Comment: Order added by Discern Expert. Performed By: #### 2 505787, 70150705, 2891363, 8972683, 9199969, 4101620, 5104593 ####[facility] [address] [place] [address] 36on 09-25-2023 36 Left detailed messag e for pharmacy to remove Keisha brambila as prescriber for levothyroxine as this needs to go to his PCP . [facility] 36 Rx sent for 90 days, no refills. PCP should've taken over prescribing this. Can you follow-up with pt's pharmacy to send future refill requests to PCP? Thx Normal [facility] UroVysion Fish and Urine Cyt o ([facility])on 09-25-2023 UVFISH & UC Diagnosis Info Invalid Interpretation Code [facility] Comment on above: Result Comment: A:Ur ine,Urine:Bladder Wash Diagnosis Summary - No evidence of high grade urothelial carcinoma identified. Adequate cellularity for evaluation. Diagnosis Summary - The UroVysion FISH study detected [...] correlated with cytology and cystoscopy results.* CPT 24938, 66053. Microscopic Notes - Microscopic Notes - Abnormal cells 9p21 deletions: Abnormal cells aneploid events: Total cells analyzed: 100 Hematuria: Gross Description Site ID:A color Yellow fixative Alcohol Received 100 mls of clear yellow fluid with the patient's name and, Urine on the vial. Electronically signed by : on: 07/23/2023 23:12:06 Performed By: #### 1 [id number] ####[facility] [address] [place] [address] CHEMISTRYOrdered By: SYSTEM SYSTEM on 09-12-2023 Albumin [...] 09-12-2023 Albumin [Mass/Vol] 4.2 g/dL Normal 3.3-5.0 [facility] Comment on above: Performed By: #### 2 115497, 60735000 ####[facility] [address] [place] [address] Albumin/Globulin (S) [Mass conc ratio] 1.4 Normal 1.1-2.2 [facility] Comment on above: Performed By: #### 2 114981, 62012696 ####[facility] [address] [place] [address] ALP [Catalytic activity/Vol] 73 Int._Unit/L Normal 21-98 [facility] Comment on above: Performed By: #### 2 276586, 35317377 ####[facility] [address] [place] [address] ALT No additional P-5'-P [Catalytic activity/Vol] 12 Int._Unit/L Normal 6-46 [facility] Comment on above: Performed By: #### 2 780198, 12265544 ####[facility] [address] [place] [address] Anion gap [Moles/Vol] 14 mmol/L Normal 6-[address] [facility] Comment on above: Performed By: #### 2 828492, 13587350 ####[facility] [address] [place] [address] AST [Catalytic activity/Vol] 11 Int._Unit/L Normal 5-43 [facility] Comment on above: Performed By: #### 2 182047, 40242635 ####[facility] [address] [place] [address] Bilirubin [Mass/Vol] 0.4 mg/dL Normal 0.0-1.1 [facility] Comment on above: Performed By: #### 2 770373, 68876973 ####[facility] [address] [place] [address] Calcium [Mass/Vol] 9.2 mg/dL Normal 8.9-11.1 [facility] Comment on above: Performed By: #### 2 279808, 88453048 ####[facility] [address] [place] [address] Chloride [Moles/Vol] 103 mmol/L Normal 101-111 [facility] Comment on above: Performed By: #### 2 290635, 84453266 ####[address] [place] [address] CO2 [Moles/Vol] 27 mmol/L Normal 21-31 [facility] Comment on above: Performed By: #### 2 001586, 63540721 ####[address] [address] Creatinine [Mass/Vol] 1.5 mg/dL High 0.5-1.[address] [facility] Comment on above: Performed By: #### 2 506193, 30290207 ####[facility] [address] [place] [address] Globulin (S) [Mass/Vol] 3.0 g/dL Normal 1.4-4.0 [facility] Comment on above: Performed By: #### 2 855316, 41642667 ####[facility] [address] [place] [address] Glucose [Mass/Vol] 142 mg/dL Normal 55-199 [facility] Comment on above: Performed By: #### 2 350871, 59657396 ####[facility] [address] [place] [address] Potassium [Moles/Vol] 4.2 mmol/L Normal 3.5-5.[address] [facility] Comment on above: Performed By: #### 2 484915, 98143507 ####[address] [place] [address] Protein [Mass/Vol] 7.2 g/dL Normal 6.0-7.8 [facility] Comment on above: Performed By: #### 2 265270, 52207343 ####[facility] [address] [place] [address] Sodium [Moles/Vol] 140 mmol/L Normal 135-145 [facility] Comment on above: Performed By: #### 2 386302, 09779000 ####[facility] [address] [place] [address] Urea nitrogen [Mass/Vol] 21 mg/dL Normal 5-21 [facility] Comment on above: Performed By: #### 2 296314, 33711481 ####[facility] [address] [place] [address] Urea nitrogen/Creatinine [Mass ratio] 14 No Units Normal 10-20 [facility] Comment on above: Performed By: #### 2 662976, 39446942 ####[facility] [address] [place] [address] Consent for Treatmenton 09-02 Consent for Treatment [id number]#1.00TIFF Normal [facility] Physician Orderon 09-12-2023 Physician Order [id number]#1.00TIFF Normal [facility] eGFRon 09-12-2023 eGFR 48 mL/min/1.73 m2 Low >=59 [facility] Comment on above: Order Comment: Order added by Discern Expert. Performed By: #### 2 800102, 05342231 ####[facility] [address] [place] [address] Lab Reportson 09-07-2023 Lab Reports [id number]#1.00TIFF Normal [facility] Reference Lab Reporton 09-06 Reference Lab Report [id number]#1.00TIFF Normal [facility] Capillary blood glucose hakan urement by glucometer (mass/volume)Ordered By: Bill Mcgee on 09-06-2023 Glucose [Mass/Vol] 126 mg/dL [facility] Comment on above: Random Glucose Refer ence Range is dependent on time and content of last meal. Glucose of more than 200 mg/dL in a nonstressed, ambulatory subject supports the diagnosis of Diabetes Mellitus. Result Comment: [place] om Glucose Reference Range is dependent on time and content of last meal. Glucose of more than 200 mg/dL in a nonstressed, ambulatory subject supports the diagnosis of Diabetes Mellitus. Performed By: #### G LULS #### Point of Care testing , Glucose Poct Glucometerson 0 09-06-2023 Commemt1 Glu2: Cleaned Meter Normal [facility] Comment on above: Result Comment: PERF ORMED BY: [facility] [address] [place] [address] PATHOLOGIST FENDER MECHANIC APPRENTICE ANUSHA MANCUSO M.D. Performed By: #### G LULS #### Point of Care testing , Victor M 09-06-2023 L Specimen: Received: 09/06/23 Status: TAY Spangler Num: [id number] Spec Type: Surgical Subm Dr: Bill Mcgee MD Tissues: A Colon Biopsy (CECAL POLYP) B Colon Biopsy (SIGMOID POLYP) Procedures: HE/4, Gross/Micro L4/2 Age/ Patient Sex Location Account Attending Physician José Luis Faulkner 72/M [id number] Bill Mcgee MD SPEC NUM: RECD: 09/06/23 STATUS: FELIXJohnny RESejal NUM: [id number] BASIA: 09/06/23 DR: Bill Mcgee MD ENTERED: 09/06/[address] [facility] [address]: SPEC TYPE: Surgical DEPT: S ORDERED: [...] mm. All in 1 cassette. CPT Codes 23704b8 Specimen: Received: 09/06/23 Status: TAY Aníbal Num: [id number] Spec Type: Surgical Subm Dr: Bill Mcgee MD Tissues: A Colon Biopsy (CECAL POLYP) B Colon Biopsy (SIGMOID POLYP) Procedures: HE/Bulmaro, Gross/Micro L4/2 Patient: José Luis Faulkner [id number] (Continued) Signed (signature on file) Quirino Madrigal MD 09/07/23 1351 Normal [facility] No Panel InformationOrdered By: Bill Mcgee on 09-06-2023 Bedside Glucose Comment Glu2: cleaned meter [facility] General Message Officeon General Message Office --- --- --- --- - -- --- --- --- --- From: Renetta, DirectInbox To: JOSÉ LUIS FAULKNER Sent: 08/30/23 02:30:44 AM EDT Subject: Discharge Summary Ready to View A summary regarding your recent visit is available in the Documents section of your health record. Normal [facility] BMPon 08-29-2023 Anion gap [Moles/Vol] 10 mmol/L Normal 6-[address] [facility] Comment on above: Performed By: #### 4 [id number], [id number] #### [facility] [address] [place] [address] Calcium [Mass/Vol] 8.1 mg/dL Low 8.9-11.1 [facility] Comment on above: Performed By: #### 4 11166077, [id number] #### [facility] [address] [place] [address] Chloride [Moles/Vol] 109 mmol/L Normal 101-111 [facility] Comment on above: Performed By: #### 4 50180997, [id number] #### [facility] [address] [place] [address] CO2 [Moles/Vol] 24 mmol/L Normal 21-31 [facility] Comment on above: Performed By: #### 4 99195807, [id number] #### [facility] [address] [place] [address] Creatinine [Mass/Vol] 1.4 mg/dL High 0.5-1.[address] [facility] Comment on above: Performed By: #### 4 16386995, [id number] #### [facility] [address] [place] [address] Glucose [Mass/Vol] 118 mg/dL Normal 55-199 [facility] Comment on above: Performed By: #### 4 55919464, [id number] #### [facility] [address] [place] [address] Potassium [Moles/Vol] 4.5 mmol/L Normal 3.5-5.[address] [facility] Comment on above: Performed By: #### 4 50239199, [id number] #### [facility] [address] [place] [address] Sodium [Moles/Vol] 138 mmol/L Normal 135-145 [facility] Comment on above: Performed By: #### 4 39890944, 7987217829 #### [facility] [address] [place] [address] Urea nitrogen [Mass/Vol] 26 mg/dL High 5-21 [facility] Comment on above: Performed By: #### 4 96154591, 9565828513 #### [facility] [address] [place] [address] Urea nitrogen/Creatinine [Mass ratio] 19 No Units Normal 10-20 [facility] Comment on above: Performed By: #### 4 67403647, 8774011411 #### [facility] [address] [place] [address] CHEMISTRYOrdered By: Yvon [place] User on 08-29-2023 Glucose [Mass/Vol] 205 mg/dL High 55 - 99 mg/dL [facility] POC Subsection Comment on above: Result Comment: Kennedy espitia RN/ POC Device SN [id number] 1 Invalid Interpretation Code [facility] POC Subsection POC User ID [id number] 1 Invalid Interpretation Code [facility] POC Subsection POC Username DAWN LANDA Invalid Interpretation Code [facility] POC Subsection Glucose [Mass/Vol] 109 mg/dL High 55 - 99 mg/dL [facility] POC Subsection Comment on above: Result Comment: Repe at Test POC Device SN [id number] 1 Invalid Interpretation Code [facility] POC Subsection POC User ID [id number] 1 Invalid Interpretation Code [facility] POC Subsection POC Username DAWN LANDA CLAIRE Invalid Interpretation Code [facility] POC Subsection CHEMISTRYOrdered By: SYSTEM SYSTEM on [...] 08-03 Glucose [Mass/Vol] 205 mg/dL High 55-99 [facility] Comment on above: Result Comment: Kennedy espitia RN/ Performed By: #### 2 [id number] ####[facility] [address] [place] [address] Glucose [Mass/Vol] 109 mg/dL High 55-99 [facility] Comment on above: Result Comment: Repe at Test Performed By: #### 4 [id number], [id number] #### [facility] [address] [place] [address] Discharge Instructionson Discharge Instructions [id number]#1.00TIFF Normal [facility] Discharge Note-Nursingon Discharge Note-Nursing JOSÉ LUIS FAULKNER :1950 Visit Date:08/27/2023 Inpatient Discharge Instructions Your Care Team Admitting Physician - Rosi Mendez MD Reason for Your Visit I am dehydrated, weak and my kidney function is not well Your Diagnosis LAWANDA (acute kidney injury) Dyspnea Hypertension PAF (paroxysmal atrial fibrillation) Chronic systolic heart failure CAD (coronary artery disease) Parkinsonian syndrome Bipolar I disorder, mild, current or most recent episode depressed, in full remission, with mixed features Presence of combination internal cardiac defibrillator (ICD) and pacemaker Stage III chronic kidney disease Obese On deep vein thrombosis (DVT) prophylaxis Shortness of breath Weakness or fatigue Tests Performed US Renal XR Chest Single View This Is Your Medications List Misc Prescription (nebulizer machine) acetaminophen (acetaminophen 325 mg Tab) albuterol (Pro-Air HFA CFC free 90 mcg/inh MDI) albuterol-ipratropium (DuoNeb 2.5 mg-0.5 mg/3 mL Soln-Inh) alprazolam (alprazolam 0.25 mg Tab) amiodarone amoxicillin (amoxicillin 500 mg Cap) apixaban (Eliquis 5 mg oral tablet) aripiprazole (aripiprazole 5 mg Tab) aspirin (aspirin 81 mg Oral EC Tab) atorvastatin (atorvastatin 80 mg Tab) carbidopa-levodopa (carbidopa-levodopa 25 mg-100 mg Tab) carvedilol (carvedilol 25 mg Tab) cholecalciferol (Vitamin D3 1000 intl units oral tablet) cyanocobalamin (cyanocobalamin 1000 mcg/mL Inj) enalapril (enalapril 10 mg Tab) glimepiride (glimepiride 2 mg Tab) insulin isophane (NovoLIN N FlexPen 100 units/mL subcutaneous suspension) insulin lispro (Humalog) isosorbide mononitrate (isosorbide mononitrate 60 mg ER Tab) lamotrigine (Lamictal 200 mg Tab) levothyroxine (levothyroxine 100 mcg (0.1 mg) Tab) levothyroxine (levothyroxine 75 mcg (0.075 mg) Tab) magnesium oxide (magnesium oxide 400 mg Tab) metformin (metformin 1000 mg Tab) multivitamin with minerals (Multivitamins and Minerals) nitroglycerin (Nitro 0.4 mg Tab) pantoprazole (Pantoprazole [address] Tab) spironolactone (Aldactone 25 mg Tab) tamsulosin (tamsulosin 0.4 mg Cap) torsemide (torsemide 20 mg Tab) ubiquinone (Co-Q10 100 mg oral capsule) umeclidinium-vilanterol (Anoro Ellipta 62.5 mcg-25 mcg inhalation powder) Procedure History Circumcision (07/25/2022), TURBT - Transurethral [...] and biopsy, Mastoidectomy. Discharge Vitals Temperature (Axillary) 36.9 ?C Heart Rate (Monitored) 60 Respiratory Rate 17 Blood Pressure 136/67 Weight 109 kg What to do next Instructions From Your Doctor Event Name Event Result Discharge Activity Ambulate as tolerated, Activity as tolerated Discharge Diet(s) Calorie Controlled- 1800 Calorie Diet, Low Sodium- 2000 mg Pending Diagnostic Test Results None Pharmacy Information Shantell Singh Previously Scheduled Follow-Up Appointments 2023 2:15 PM EDT With: Armani Yarbrough DO Where: [facility] Sunday 10:30 AM EDT With: Caterina BROUSSARD, Nicolás Chavez Where: [facility] New Follow Up Appointments after Discharge Follow Up with Felipa Milligan When: Within 2 to 4 weeks Comments: Call for followup appointment Where: [facility] [address] [place] [address]- Business (1) Follow Up with Mona Baker When: Within 5 to 7 days Comments: Call for followup appointment Where: [address] [place] [address]- Business (1) Medications What How Much When Why Instructions Next Dose Changed levothyroxine (levothyroxine 100 mcg (0.1 mg) Tab) 1 Tablets By Mouth Every day 08/30/23 Changed levothyroxine (levothyroxine 75 mcg (0.075 mg) Tab) 1 Tablets By Mouth Every day 08/30/23 Unchanged acetaminophen (acetaminophen 325 mg Tab) 2 Tablets By Mouth Every 6 hours as needed for Pain Take as needed every 6 hours for pain Unchanged albuterol (Pro-Air HFA CFC free 90 mcg/ inh MDI) 2 Puffs Inhalation Every 4 hours as needed for Shortness of breath or wheezing Resume as needed Unchanged albuterol-ipratropium (DuoNeb 2.5 mg-0.5 mg/ 3 mL Soln-Inh) 3 Milliliter Inhalation 4 times a day Resume as needed Unchanged alprazolam (alprazolam 0.25 mg Tab) 1 Tablets By Mouth 3 times a day as needed for anxiety Resume as needed Unchanged amiodarone 300 Milligram By Mouth Every day 08/30/23 Unchan (more content not included)... Normal [facility] Super[employer] Education Videoon SuperSport Education Video What Is Atrial Fibrillation? Yes Patient Normal [facility] GetWell Education Video Yes Patient Caring for Your Urinary Catheter Normal [facility] GetWell Education Video Care in the Hospital: Preventing a Urinary Catheter Infection Normal [facility] GetWell Education Video Yes Patient Atrial Fibrillation: Managing Your Symptoms Normal [facility] GetWell Education Video Yes Patient Atrial Fibrillation: Living Well Normal [facility] GetWell Education Video Yes Patient Atrial Fibrillation: Feeling More in Control [facility] Vive UniqueWell Education Video Yes Patient Avoiding Infections in the Hospital [facility] Inpatient Clinical Summaryon 08-29-2023 Inpatient Clinical Summary [address] [address] Clinical Summary Person Information: Name: JOSÉ LUIS FAULKNER Age: 72 Years : 1950 Sex: Male PCP: Mona Baker MD Marital Status: Phone: [phone] Race: White Ethnicity: Non- or Language: Citizen Of [place] Visit Id: Visit Reason: Weakness or fatigue; Shortness of breath; WEAKNESS SOB Speciality: Acuity: Enc Type: Inpatient Med Service: Medical Arrival: 08/27/2023 20:34:43 Discharge: Dispo Type: Admitted as IP to this Hosp Address: [address] [place] [id number] Provider Notes: Diagnosis: 1:LAWANDA (acute kidney injury); 2:Dyspnea; 3:Hypertension; 4:PAF (paroxysmal atrial fibrillation); 5:Chronic systolic heart failure; 6:CAD (coronary artery disease); 7:Parkinsonian syndrome; 8:Bipolar I disorder, mild, current or most recent episode depressed, in full remission, with mixed features; 9:Presence of combination internal cardiac defibrillator (ICD) and pacemaker; 10:Stage III chronic kidney disease; 11:Obese; 12:On deep vein thrombosis (DVT) prophylaxis Problems Active History of bladder cancer Bladder cancer Family history of prostate cancer Screening PSA (prostate specific antigen) Chronic anticoagulation Paraphimosis Urinary retention Pain in limb Morbid obesity Contracture of ankle joint Other obstructive and reflux uropathy Parkinsonian syndrome 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 Refills: 2. amiodarone 300 Milligram By Mouth every day. amoxicillin (amoxicillin 500 mg Cap) 1 Capsules By Mouth [address] Ruiz. apixaban (Eliquis 5 mg oral tablet) 1 [...] every day. metformin (metformin 1000 mg Tab) 1 Tablets By Mouth 2 times a day. Misc Prescription (nebulizer machine) please provi (more content not included)... Normal [facility] Inpatient Patient Summaryon 08-29-2023 Inpatient Patient Summary [place] [address] Patient Discharge Instructions PERSON INFORMATION Name: JOSÉ LUIS FAULKNER Date of : 1950 Current Date: 08/29/2023 10:24:58 PHYSICIANS Admitting Physician: Rosi Mendez MD Primary Care Physician: Mona Baker MD PCP Comment: Discharge Diagnosis: 1:LAWANDA (acute kidney injury); 2:Dyspnea; 3:Hypertension; 4:PAF (paroxysmal atrial fibrillation); 5:Chronic systolic heart failure; 6:CAD (coronary artery disease); 7:Parkinsonian syndrome; 8:Bipolar I disorder, mild, current or most recent episode depressed, in full remission, with mixed features; 9:Presence of combination internal cardiac defibrillator (ICD) and pacemaker; 10:Stage III chronic kidney disease; 11:Obese; 12:On deep vein thrombosis (DVT) prophylaxis Condition at Discharge: Improved JOSÉ LUIS FAULKNER has been given the following list of follow-up instructions, prescriptions, and patient education materials: PATIENT FOLLOW-UP INFORMATION Diet: Calorie Controlled- 1800 Calorie Diet, Low Sodium- 2000 mg Discharge Activity: Ambulate as tolerated, Activity as tolerated Discharge Restrictions: Wound Care Instructions: Remove Your Dressing In Days Call Your Doctor For: IF UNABLE TO CONTACT YOUR PHYSICIAN AND YOU FEEL IT IS AN EMERGENCY, GO TO THE NEAREST EMERGENCY ROOM OR CALL 911 Home Treatment: Devices/Equipment: Other: Pacemaker and defibrillator implanted Special Services: Additional Instructions: Primary Care Physician to provide the following pending test results: None Follow up: With: Address: When: Felipa Milligan [facility], [address], [address] [place] [address] Business (1) Within 2 to 4 weeks Comments: Call for followup appointment With: Address: When: Mona [place] [address] Business (1) Within 5 to 7 days Comments: Call for followup appointment In the event that this physician does not participate in your insurance network, please consult with your insurance company to find a nearby participating provider. Type Location Start [facility] State ONC Office Visit 30 (FT) FT.ONCOLOGY 10/11/2023 2:15 PM 10/11/2023 2:45 PM Confirmed Pulmonary Follow Up (FT) FT.Pulmonary Clinic 10/22/2023 10:30 AM 10/22/2023 10:45 AM Confirmed Comment: MELY Moss NICOLAAS A, have received the attached patient education materials/instructions and have verbalized understanding: Patient Signature Date Clinican/Nurse Signature Date HERE ARE THE MEDICATION CHANGES THAT OCCURRED DURING YOUR HOSPITAL STAY Medications to Continue Taking That Have Changed Other Medications START: levothyroxine (levothyroxine 100 mcg (0.1 mg) Tab) 1 Tablets By Mouth every day. Last Dose: Ne xt Dose: START: levothyroxine (levothyroxine 75 mcg (0.075 mg) Tab) 1 Tablets By Mouth every day. Last Dose: Ne xt Dose: STOP: levothyroxine (levothyroxine 150 mcg (0.15 mg) Tab) 1 Tablets By Mouth every day. Medications to Continue with No Changes Other [...] 2. Last Dose: Ne xt Dose: amiodarone 300 Milligram By Mouth every day. Last Dose: Ne xt Dose: amoxicillin (amoxicillin 500 mg Cap) 1 Capsules By Mouth [address] Ruiz. Last Dose: Ne xt Dose: apixaban (Eliquis [...] a day. Last Dose: Ne xt Dose: (more content not included)... 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 Sinclair. Pt is aware of plan to DC home today. Pt is from home with , daughter who is nurse, son in law and grandchildren live with pt. Declines any HH or PM at NH. Medicare rights reviewed. CRM following . PCP verified and insurance information reviewed and DME discussed. Contact information provided and white board updated. [facility] Comment on above: Result Comment: Rajan escalonaally Signed By: Flaco MCCLELLAND, Estelita\.ricardo\Date and Time Signed: 08/29/23 10:35 EDT Message from Medicareon 08-03 Message from Medicare [id number]#1.00TIFF [facility] Monitor Recordon 08-29-2023 Monitor Record [id number]#1.00TIFF [facility] Progress Note-Physicianon Progress Note-Physician Assessment/Plan 72-year-old male with history of coronary artery disease, chronic systolic congestive [...] unspecified) Acute kidney injury on chronic kidney disease?secondary to ATN from diuretics and ADWOA inhibitor. Present on admission. Resolved. Treated with IV fluid. Renal ultrasound?negative. Ordered: Hospital Discharge Day > 30 Min 29317 2. Dyspnea (R06.00: Dyspnea, unspecified) Related to generalized weakness. Resolved. Ordered: Hospital Discharge Day > 30 Min 80274 3. Hypertension (I10: Essential (primary) hypertension) Blood pressure well-controlled. Continue on Coreg, isosorbide. Enalapril on hold.-May resume at discharge. Ordered: Hospital Discharge Day > 30 Min 95329 4. PAF (paroxysmal atrial fibrillation) (I48.0: Paroxysmal atrial fibrillation) Rate controlled. Continue on amiodarone, Coreg and Eliquis. Ordered: 5. Chronic systolic heart failure (I50.22: Chronic systolic (congestive) heart failure) Clinically stable. Continue on isosorbide. May resume Aldactone and Bumex at discharge. Ordered: Hospital Discharge Day > 30 Min 33000 6. 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 Disposition: Home today. Discharge time?greater than 30 minutes Orders: Basic Metabolic Panel eGFR Extra Lav Tube Subjective Seen and examined. Doing well this morning. Offers no complaints. Would like to go home today. Objective Vitals & Measurements T: 36.9 ?C(Axillary) TMIN: 36.7 ?C(Axillary) TMAX: 36.9 ?C(Oral) HR: 60(Monitored) RR: 20 BP: 125/82 SpO2: 96% WT: 109 kg Intake & Output This visit (24 hour periods starting at 07:00 EDT) 08/29/23 * 08/28/23 08/27/23 Total Summary Intake mL -- 1,131.07 -- Output mL -- 1,900 650 Fluid Balance -- -768.93 -650 Intake (1) Sodium Chloride 0.9% intravenous solution 1,000 mL mL -- 1,131.07 -- Total -- 1,131.07 -- Output (2) Urine Catheter mL -- 1,900 -- Urine Output Initial mL -- -- 650 Total -- 1,900 650 Counts (0) * This column has not completed the indicated time period. Physical Exam General: alert, no acute distress Skin: warm, dry Head: no trauma, normocephalic Neck: Trachea midline, no adenopathy, no tenderness Eye: normal conjunctiva, sclera clear ENMT: TM's clear, oral mucosa moist, no pharyngeal erythema or exudate Cardiovascular: regular rate and rhythm, normal peripheral perfusion Respiratory: Lungs CTA, respirations non labored Chest wall: no deformity. Gastrointestinal: soft, non distended, no tenderness, no guarding. Obese. Bowel sounds intact. Back: No tenderness, Normal ROM, Normal alignment. Extremities: no deformity, no trauma Neurological: oriented x 4, LOC appropriate for age, CN II-XII intact, motor strength equal & normal bilaterally, sensation equal & normal bilaterally, speech normal Psychiatric: cooperative, affect appropriate for age, normal judgement, normal psychiatric thoughts. Lab Results Glucose Lvl: 118 mg/dL (08/29/23 08:49:00) BUN: 26 mg/dL High (08/29/23 08:49:00) Creatinine: 1.4 mg/dL High (08/29/23 08:49:00) eGFR: 53 mL/min/1.73 m2 Low (08/29/23 08:49:00) BUN/Creat Ratio: 19 (08/29/23 08:49:00) Sodium Lvl: 138 mmol/L (08/29/23 08:49:00) Potassium Lvl: 4.5 mmol/L (08/29/23 08:49:00) Chloride: 109 mmol/L (08/29/23 08:49:00) CO2: 24 mmol/L (08/29/23 08:49:00) AGAP: 10 mEq/L (08/29/23 08:49:00) Calcium Lvl: 8.1 mg/dL Low (08/29/23 08:49:00) Glucose Cap: 109 mg/dL High (08/29/23 08:13:00) POC Device SN: [id number] (/ (more content not included)... Normal [facility] Comment on above: Result Comment: Elec tronically Signed By: JOSE BROUSSARD, Olaf\.br\Date and Time Signed: 08/29/23 09:58 EDT eGFRon 08-29-2023 eGFR 53 mL/min/1.73 m2 Low >=59 [facility] Comment on above: Order Comment: Order added by Discern Expert. Performed By: #### 4 [id number], [id number] #### [facility] [address] [place] [address] BMPon 08-28-2023 Anion gap [Moles/Vol] 15 mmol/L Normal 6-[address] [facility] Comment on above: Performed By: #### 4 [id number] #### [facility] [address] [place] [address] Calcium [Mass/Vol] 8.3 mg/dL Low 8.9-11.1 [facility] Comment on above: Performed By: #### 4 [id number] #### [facility] [address] [place] [address] Chloride [Moles/Vol] 107 mmol/L Normal 101-111 [facility] Comment on above: Performed By: #### 4 [id number] #### [facility] [address] [place] [address] CO2 [Moles/Vol] 23 mmol/L Normal 21-31 [facility] Comment on above: Performed By: #### 4 [id number], [id number] #### [facility] [address] [place] [address] Creatinine [Mass/Vol] 2.1 mg/dL High 0.5-1.[address] [facility] Comment on above: Performed By: #### 4 [id number], [id number] #### [facility] [address] [place] [address] Glucose [Mass/Vol] 84 mg/dL Normal 55-199 [facility] Comment on above: Performed By: #### 4 [id number], [id number] #### [facility] [address] [place] [address] Potassium [Moles/Vol] 4.6 mmol/L Normal 3.5-5.[address] [facility] Comment on above: Performed By: #### 4 [id number] #### [facility] [address] [place] [address] Sodium [Moles/Vol] 140 mmol/L Normal 135-145 [facility] Comment on above: Performed By: #### 4 [id number], [id number] #### [facility] [address] [place] [address] Urea nitrogen [Mass/Vol] 51 mg/dL High 5-21 [facility] Comment on above: Performed By: #### 4 [id number], [id number] #### [facility] [address] [place] [address] Urea nitrogen/Creatinine [Mass ratio] 24 No Units High 10-20 [facility] Comment on above: Performed By: #### 4 [id number], [id number] #### [facility] [address] [place] [address] CHEMISTRYOrdered By: Lab ROP User on 08-28-2023 Glucose [Mass/Vol] 220 mg/dL High 55 - 99 mg/dL [facility] POC Subsection Comment on above: Result Comment: Kennedy espitia RN/ POC Device SN [id number] 1 Invalid Interpretation Code [facility] POC Subsection POC User ID [id number] 1 Invalid Interpretation Code [facility] POC Subsection POC Username KIAN BROWN Invalid Interpretation Code [facility] POC Subsection CHEMISTRYOrdered By: SYSTEM SYSTEM on [...] Sensitivity Troponin I Instructions For Use, Milagro BRAIN, January 2018) Urea nitrogen [Mass/Vol] 51 mg/dL [...] High Sensitivity Troponin I Instructions For Use, [employer], January 2018) CHEMISTRYOrdered By: Cris Luis on 08-28-2023 HbA1c (Bld) [Mass fraction] 8.9 % High <=5.9% [facility] ChemAutoSS Capillary Glucose POCon 08-03 Glucose [Mass/Vol] 220 mg/dL High 55-99 [facility] Comment on above: Result Comment: Kennedy SULLIVAN Performed By: #### 2 [id number] #### [facility] [address] [place] [address] Glucose [Mass/Vol] 185 mg/dL High 55-99 [facility] Comment on above: Result Comment: Kennedy SULLIVAN Performed By: #### 4 [id number], [id number] #### [facility] [address] [place] [address] Glucose [Mass/Vol] 137 mg/dL High 55-99 [facility] Comment on above: Result Comment: Kennedy espitia RN/ Performed By: #### 2 [id number] ####[facility] [address] [place] [address] Glucose [Mass/Vol] 78 mg/dL Normal 55-99 [facility] Comment on above: Result Comment: Kennedy SULLIVAN Performed By: #### 4 [id number], [id number] #### [facility] [address] [place] [address] ED Clinical Summaryon 2023 ED Clinical Summary (Inserted Image. Valerie ble to display) [address] [address] ED Clinical Summary Person Information Name: JOSÉ LUIS FAULKNER [facility] Age: 72 Years : 1950 Sex: Male Language: Citizen Of [place] PCP: Mona Baker MD Marital Status: Phone: [phone] Visit Id: Visit Reason: Weakness or fatigue; Shortness of breath; WEAKNESS SOB Speciality: Acuity: 2 Enc Type: Inpatient Med Service: Med/Surg Arrival: 08/27/2023 20:34:43 Discharge: LOS: 000 04:56 Checkin: 08/27/2023 20:34:43 Checkout: 08/28/2023 01:30:57 Dispo Type: Admitted as IP to this [facility] EVENTS: Event Name Event Status Request Date/Time Start Date/Time Complete Date/Time Arrive Complete 08/27/2023 20:34:43 08/27/2023 20:34:43 08/27/2023 20:34:43 Document Home Meds Request 08/27/2023 20:34:43 Triage Complete 08/27/2023 20:34:43 08/27/2023 20:45:16 08/27/2023 20:45:16 EKG Complete 08/27/2023 20:37:45 08/27/2023 20:44:47 Bed Assign Complete 08/27/2023 20:38:12 08/27/2023 20:38:12 08/27/2023 20:38:12 Dr Exam Complete 08/27/2023 20:38:12 08/27/2023 20:39:51 08/27/2023 20:39:51 RN Exam Complete 08/27/2023 20:38:12 08/27/2023 21:50:15 08/27/2023 21:50:15 Registration Complete 08/27/2023 20:38:20 08/27/2023 20:38:20 08/27/2023 20:38:20 Reg Complete Request 08/27/2023 20:38:20 Reg Bed Request Complete 08/27/2023 20:38:20 08/27/2023 20:38:20 08/27/2023 20:38:20 Registration Complete 08/27/2023 20:39:51 08/27/2023 21:32:30 08/27/2023 21:32:30 EKG Complete 08/27/2023 20:49:23 08/27/2023 21:24:47 Pending Labs Request 08/27/2023 20:51:39 Lab Complete 08/27/2023 20:51:39 08/27/2023 21:42:10 Patient Care Request 08/27/2023 20:51:40 RT Request 08/27/2023 20:51:40 X-Ray Complete 08/27/2023 20:51:40 08/27/2023 21:05:03 08/27/2023 21:14:45 Swab Complete 08/27/2023 20:51:40 08/27/2023 21:30:21 Pending Labs Complete 08/27/2023 21:08:31 08/27/2023 21:08:31 08/27/2023 21:36:01 Lab Complete 08/27/2023 21:08:31 08/27/2023 21:08:31 08/27/2023 21:36:01 Wet Read Request 08/27/2023 21:14:45 Meds Admin Request 08/27/2023 21:37:23 Pending Labs Complete 08/27/2023 21:44:25 08/27/2023 21:44:25 08/27/2023 21:44:25 Fall Risk Request 08/27/2023 21:50:15 Consult Request 08/27/2023 22:59:05 Hospitalist Consult Request 08/27/2023 22:59:05 Bed Request Request 08/27/2023 23:00:40 Reg Bed Request Complete 08/27/2023 23:00:40 08/27/2023 23:13:08 08/27/2023 23:13:08 Admit Request 08/27/2023 23:00:40 Patient Care Request 08/27/2023 23:13:08 Patient Care Request 08/27/2023 23:13:09 Patient Care Request 08/27/2023 23:13:09 Patient Care Request 08/27/2023 23:13:09 Patient Care Request 08/27/2023 23:13:09 Patient Care Request 08/27/2023 23:13:10 ADDRESS: [address] [place] [address] [place] [phone] PHYS DOC NOTES: MEDICAL INFORMATION: Prescriptions Given: [...] day as needed anxiety. Refills: 2. amiodarone 300 Milligram By Mouth every day. amlodipine (amLODIPine 5 mg Tab) 1 Tablets By Mouth every day. amoxicillin (amoxicillin 500 mg Cap) 1 Capsules By Mouth [address] Ruiz. apixaban (Eliquis 5 mg oral tablet) 1 [...] tablet) 1 Tablets By Mouth every day. cholecalciferol (Vitamin D3) one tab By Mouth every day. cranberry (cranberry oral capsule) takes 1 capsule daily. cyanocobalamin (cyanocobalamin 1000 mcg/mL Inj) 1 Milliliter Intramuscular once a month. syringes for B12 injections-3ml, 25 guage 1 inch quantity sufficient for injections.. Refills: 1. doxycycline (doxycycline hyclate 100 mg Cap) 1 Capsules By Mouth every day. Take 1 pill the day before the procedure and 1 pill after the procedure. Refills: 0. enalapril (enalapril 10 mg [...] with breakfast and lunch and dinner NO B (more content not included)... Normal [facility] ED Patient Education Noteon 08-28-2023 ED Patient Education Note Normal [facility] ED Patient Summaryon 024 ED Patient Summary (Inserted Image. Valerie ble to display) [place] [id number] Patient Discharge Instructions Person Information Name: JOSÉ LUIS FAULKNER Age: 72 Years Arrival Date: 08/27/2023 20:34:43 Discharge Diagnosis: LAWANDA (acute kidney injury); Dyspnea Primary Care Physician: Mona Baker MD Provider Information Primary Provider: Srinivasa Courtney DO [employer] Associate:None The exam and treatment you received in the Emergency Department were for an urgent problem and are not intended as complete care. It is important that you follow up with a doctor, nurse practitioner, or physician?s roofer assistant for ongoing care. If your symptoms become [...] opioids can be used to help relieve qqirsfwp-wc-pnglak pain and are often prescribed following a [...] (www.fda.gov/Drugs/Resource sForYou). ? Visit www.cdc.gov/drugoverdose to learn about the risks of opioids abuse and overdose. ? If you believe you may be struggling with addiction, tell your health healthcare or medical and ask for guidance or call [facility]S National Helpline at 4-961-865-NDXD. h Source: US Department of Health and Human Services/Center for Disease Control & Prevention [facility] Medications Given: Medicat (more content not included)... 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 Sinclair. Pt is from home, lived with and in same home as daughter, son in law and 2 grandchildren. Pt is independent at home, and declines any concerns or DC needs. . Aware of plan to stay in hospital today and PT= no needs. Inpatient status reviewed, Medicare rights reviewed, signed by pt and original provided. Declines need to call family at this time. Pt has home oxygen 2L prn from [employer], currently on room air, Declines further needs. CRM following . PCP verified and insurance information reviewed and DME discussed. Contact information provided and white board updated. [facility] Comment on above: Result Comment: Elec tronically Signed By: Flaco MCCLELLAND, Estelita\.br\Date and Time Signed: 08/28/23 10:51 EDT Monitor Recordon 08-28-2023 Monitor Record [id number]#1.00TIFF [facility] Monitor Record [id number]#1.00TIFF [facility] Progress Note-Nurseon 2023 Progress Note-Nurse Patient does not kno w his medication what he usually takes everyday. He states that my daughter always refill my medications and she knows all my Meds. This nurse attempted to call her daughter Zackary and her several times but no answer. Dr mendez has been notified about his medication record not be able to complete at this time. This nurse will pass this report to dayshift. [facility] Progress Note-Physicianon Progress Note-Physician Assessment/Plan 72-year-old male with history of coronary artery disease, chronic systolic congestive [...] unspecified) Acute kidney injury on chronic kidney disease?secondary to ATN from diuretics and ADWOA I. Present on admission. Improving. Avoiding nephrotoxic drugs. Treating with IV fluid. Renal ultrasound pending. Ordered: [facility] Care/Day Moderate 35 Minutes 33530 2. Dyspnea (R06.00: Dyspnea, unspecified) Related to generalized weakness. Improved. Ordered: [facility] Care/Day Moderate 35 Minutes 68132 3. Hypertension (I10: Essential (primary) hypertension) Blood pressure well-controlled. Continue on Coreg, isosorbide. Enalapril on hold. Ordered: [facility] Care/Day Moderate 35 Minutes 10567 4. PAF (paroxysmal atrial fibrillation) (I48.0: Paroxysmal atrial fibrillation) Rate controlled. Continue on amiodarone, Coreg and Eliquis. Ordered: [facility] Care/Day Moderate 35 Minutes 26734 5. Chronic systolic heart failure (I50.22: Chronic systolic (congestive) heart failure) Clinically dry. Continue on isosorbide. Aldactone on hold. Bumex on hold. Ordered: [facility] Care/Day Moderate 35 Minutes 14852 6. CAD (coronary artery disease) (I25.10: Atherosclerotic heart disease of creek coronary artery without angina pectoris) Status post [...] deep vein thrombosis (DVT) prophylaxis (Z79.899: Other senior living (current) drug therapy) Eliquis. Disposition: Hopefully home in a.m after adequate hydration and improvement in renal functions. I discussed the diagnosis and plan of care with the patient at the bedside. Moderate level of MDM based on addressing above issues. This documentation was transcribed using voice recognition software. Several attempts were made to ensure accuracy. However inadvertent computerized lan engineer errors may be present. Olaf Sinclair. Hospitalist. [...] EDT, Start date 08/29/23 6:30:00 EDT magnesium oxid (more content not included)... Normal [facility] Comment on above: Result Comment: Elec tronically Signed By: JOSE BROUSSARD, Diazfo\.br\Date and Time Signed: 08/28/23 10:05 EDT Troponin 6 Hr.on 08-28-2023 Troponin 17.30 pg/mL Normal 15.90-38.4 0 [facility] Comment on above: Result Comment: The 95% CI (Confidence Interval) PPV (Positive Predictive Value) for myocardial infarction in females is 38 pg/mL, in males 51 pg/mL. The results should be used in conjunction with clinical conditions of myocardial infarction. (Access High Sensitivity Troponin I Instructions For Use, Milagro Carmen, January 2018) Performed By: #### 1 [id number] ####[facility] [address] [place] [address] Troponin 9 Hr.on 08-28-2023 Troponin 18.30 pg/mL Normal 15.90-38.4 0 [facility] Comment on above: Result Comment: The 95% CI (Confidence Interval) PPV (Positive Predictive Value) for myocardial infarction in females is 38 pg/mL, in males 51 pg/mL. The results should be used in conjunction with clinical conditions of myocardial infarction. (Access High Sensitivity Troponin I Instructions For Use, Milagro Wander, January 2018) Performed By: #### 4 [id number], [id number] #### [facility] [address] [place] [address] URINALYSISOrdered By: SYSTEM SYSTEM on 08-28-2023 Color (U) Light-Yellow 1 (08/28/23 5:34 AM) Normal Yellow [facility] UA Auto SS Comment on above: Interpretive Data: M icroscopic readings are only performed on those samples that meet specific criteria set forth by [facility]. Glucose (U) [Mass/Vol] 4 mg/dL [...] /dL [facility] UA Auto SS URINALYSISOrdered By: Lynn Gonzales on 08-28-2023 UA Spec Desc Catheter (08/28/23 5:34 AM) Normal [facility] UA Auto SS US Renalon 08-28-2023 US Renal Exam Date/Time: 08/28/2023 07:04 EDT Reason for Exam: Renal failure Report IMPRESSION: NEGATIVE ULTRASOUND OF THE KIDNEYS. CLINICAL HISTORY: Renal failure. COMMENT: The right kidney measures approximately 12.2 cm in length, with renal cortical thickness of approximately 1.1 cm. The left kidney measures approximately 11.6 cm in length, with renal cortical thickness of approximately 1.2 cm. The kidneys are unremarkable in sonographic appearance. No renal mass nor cyst is noted. No hydronephrosis is noted. Ordering Provider: Rosi Mendez FINAL REPORT Dictated: 08/28/2023 11:42 am Jeremías Astorga M.D. Signed (Electronic Signature): 08/28/2023 11:42 am Signed by: Jeremías Astorga M.D. Transcribed by: JUAN Technologist: JALEEL Lopez [facility] XR Chest Single Viewon 08-27 XR Chest Single View Exam Date/Time: 08/27/2023 21:14 EDT Reason for Exam: Chest pain Report IMPRESSION: NO EVIDENCE OF ACTIVE CARDIOPULMONARY DISEASE, BY PORTABLE CHEST RADIOGRAPHY. EXAM: XR Chest Single View DATE: 08/27/2023 9:05 PM CLINICAL HISTORY: Chest pain. COMPARISON: 03/09/2023. TECHNIQUE: A portable upright AP radiograph of the chest was obtained. FINDINGS: There is no significant pulmonary infiltrate, vascular congestion, sizable pleural effusion, pneumothorax, or displaced fractures identified. The heart remains borderline enlarged with postoperative changes from previous CABG and a left subclavian AICD. Ordering Provider: Srinivasa Courtney FINAL REPORT Dictated: 08/28/2023 11:56 am Per Arnold MD Signed (Electronic Signature): 08/28/2023 11:56 am Signed by: Per Arnold MD Transcribed by: JUAN Technologist: ELIAN Technical Comments Radiation Dose: Ka,r in mGy = na DAP = na Normal [facility] eGFRon 08-28-2023 eGFR 32 mL/min/1.73 m2 Low >=59 [facility] Comment on above: Order Comment: Order added by Discern Expert. Performed By: #### 4 [id number], [id number] #### [facility] [address] [place] [address] BMPon 08-27-2023 Anion gap [Moles/Vol] 18 mmol/L High 6-[address] [facility] Comment on above: Performed By: #### 1 [id number], 7655577, 0827674, 24581675, 59936930, 8358534, 65044667 ####[facility] [address] [place] [address] Calcium [Mass/Vol] 8.5 mg/dL Low 8.9-11.1 [facility] Comment on above: Performed By: #### 1 2430190, 6990192, 6090814, 78753551, 80571486, 9405281, 84920131 ####[facility] [address] [place] [address] Chloride [Moles/Vol] 103 mmol/L Normal 101-111 [facility] Comment on above: Performed By: #### 1 4752582, 8906480, 2479082, 67125379, 30500557, 4390234, 78908605 ####[facility] [address] [place] [address] CO2 [Moles/Vol] 21 mmol/L Normal 21-31 [facility] Comment on above: Performed By: #### 1 0215821, 2444532, 9266267, 34719232, 11521840, 1677595, 54452523 ####[facility] [address] [place] [address] Creatinine [Mass/Vol] 2.5 mg/dL High 0.5-1.[address] [facility] Comment on above: Performed By: #### 1 2205001, 2256392, 6743159, 78846938, 64440902, 9458192, 59550220 ####[facility] [address] [place] [address] Glucose [Mass/Vol] 182 mg/dL Normal 55-199 [facility] Comment on above: Performed By: #### 1 2780274, 2461778, 1029939, 94860959, 41296870, 4451453, 63603153 ####[facility] [address] [place] [address] Potassium [Moles/Vol] 4.9 mmol/L Normal 3.5-5.[address] [facility] Comment on above: Performed By: #### 1 8297525, 8325668, 1597354, 49834201, 14536635, 6020344, 20913199 ####[facility] [address] [place] [address] Sodium [Moles/Vol] 137 mmol/L Normal 135-145 [facility] Comment on above: Performed By: #### 1 7136410, 1291299, 9896151, 85468562, 06427479, 1080717, 12435263 ####[facility] [address] [place] [address] Urea nitrogen [Mass/Vol] 55 mg/dL High 5-21 [facility] Comment on above: Performed By: #### 1 7834989, 4198027, 8428876, 00607487, 29445480, 9168396, 24103783 ####[facility] [address] [place] [address] Urea nitrogen/Creatinine [Mass ratio] 22 No Units High 10-20 [facility] Comment on above: Performed By: #### 1 5242755, 3686321, 7869406, 67298624, 13616560, 3689713, 19572978 ####[facility] [address] [place] [address] BNPon 08-27-2023 Natriuretic peptide B (Bld) [Mass/Vol] 79 pg/mL Normal 5-80 [facility] Comment on above: Performed By: #### 1 3063821, 8331107, 0483819, 60294432, 43893540, 6544447, 72365622 ####[facility] [address] [place] [address] CBC w/ Auto Diffon 4 Basophils/100 WBC (Bld) 1.4 % Normal 0.0-2.0 [facility] Comment on above: Performed By: #### 1 7574312, 3264212, 5050197, 46934734, 11799386, 4206472, 26205461 ####[address] [place] [address] Basophils/Leukocytes Auto (Bld) [Pure # fraction] 0.1 E9/L Normal 0.0-0.2 [facility] Comment on above: Performed By: #### 1 1600971, 6160346, 4880011, 60678047, 01174986, 5165063, 21728515 ####[address] [address] Eosinophils (Bld) [#/Vol] 0.3 E9/L Normal 0.0-0.5 [facility] Comment on above: Performed By: #### 1 4396090, 9133528, 0627363, 89975682, 74159124, 5317584, 51885946 ####[place] [address] Eosinophils/100 WBC (Bld) 3.6 % Normal 0.0-8.0 [facility] Comment on above: Performed By: #### 1 8200140, 7227233, 2213072, 12755931, 00833594, 4080288, 19356758 ####[place] [address] Erythrocyte distribution width (RBC) [Ratio] 16.5 % High 10.9-14.2 [facility] Comment on above: Performed By: #### 1 5724202, 9895091, 4141813, 44038550, 81868719, 7479272, 78847885 ####[address] [address] Hematocrit (Bld) [Volume fraction] 33.3 % Low 37.7-49.0 [facility] Comment on above: Performed By: #### 1 2838890, 7913793, 4335129, 65847097, 78812922, 9642204, 03749044 ####[address] [address] Hemoglobin (Bld) [Mass/Vol] 10.9 g/dL Low 13.5-17.5 [facility] Comment on above: Performed By: #### 1 2573424, 5747373, 1093341, 67054149, 27496604, 8930357, 85992330 ####[facility] [address] [place] [address] Lymphocytes (Bld) [#/Vol] 1.9 E9/L Normal 1.0-4.0 [facility] Comment on above: Performed By: #### 1 1779164, 8660020, 2929431, 66977393, 76269176, 5604908, 45351104 ####[facility] [address] [place] [address] Lymphocytes/100 WBC (Bld) 23.6 % Normal 14.0-50.0 [facility] Comment on above: Performed By: #### 1 5527924, 9623527, 0131202, 72523796, 32910820, 4455930, 30536978 ####[facility] [address] [place] [address] MCH (RBC) [Entitic mass] 28.2 pg Normal 27.0-34.0 [facility] Comment on above: Performed By: #### 1 4707861, 5458570, 4669150, 62050058, 95385197, 1120214, 18055155 ####[facility] [address] [place] [address] MCHC (RBC) [Mass/Vol] 32.6 g/dL Normal 31.4-36.[address] [facility] Comment on above: Performed By: #### 1 9469534, 7136246, 9681661, 38661539, 55243895, 6038106, 84685086 ####[facility] [address] [place] [address] MCV (RBC) [Entitic vol] 86.4 fL Normal 80.0-100.0 [facility] Comment on above: Performed By: #### 1 1426268, 0367012, 2430247, 50293680, 81998154, 1893131, 47866135 ####[address] [place] [address] Monocytes (Bld) [#/Vol] 0.6 E9/L Normal 0.2-1.0 [facility] Comment on above: Performed By: #### 1 3384829, 4132654, 1061607, 15028133, 50170680, 8957827, 36783567 ####[address] [place] [address] Neutrophils (Bld) [#/Vol] 5.2 E9/L Normal 2.0-7.5 [facility] Comment on above: Performed By: #### 1 3327020, 6655584, 9572487, 33249894, 89204915, 8102677, 38695505 ####[address] [address] Neutrophils/100 WBC (Bld) 63.7 % Normal 36.0-75.0 [facility] Comment on above: Performed By: #### 1 0745457, 0568911, 5706425, 20876472, 74055496, 0206410, 93002233 ####[address] [address] Platelet 274.0 E9/L Normal 150.0-500. 0 [facility] Comment on above: Performed By: #### 1 8682998, 9394693, 3044346, 74003264, 86993092, 5153755, 30080559 ####[address] [place] [address] Platelet mean volume (Bld) [Entitic vol] 7.1 fL Normal 6.4-10.8 [facility] Comment on above: Performed By: #### 1 2276347, 5077161, 7202324, 83783823, 40286719, 3836080, 22534620 ####[address] [address] RBC (Bld) [#/Vol] 3.9 E12/L Low 4.3-5.9 [facility] Comment on above: Performed By: #### 1 3840950, 5546832, 3969845, 21127969, 91024675, 4019276, 59297406 ####[facility] [address] [place] [address] WBC corrected for nucl RBC Auto (Bld) [#/Vol] 8.1 E9/L Normal 4.0-11.0 [facility] Comment on above: Performed By: #### 1 0424041, 8256151, 5221097, 00567482, 35247145, 3298668, 31975971 ####[facility] [address] [place] [address] CHEMISTRYOrdered By: SYSTEM SYSTEM on 08-27-2023 Troponin [...] Sensitivity Troponin I Instructions For Use, [employer], January 2018) Anion gap [Moles/Vol] 18 mmol/L [...] 79 pg/mL Normal 5 - 80 pg/mL [facility] COAGULATIONOrdered By: Jerrell Corey on 08-27-2023 aPTT Coag (PPP) [Time] 39.2 s High 25.1 - 36.5 second(s) [facility] Auto Coag Comment on above: Interpretive Data: [...] the same coagulation reagent and instrumentation as [facility]. Currently there are no coagulation studies available worldwide for children to 14 days, and no normal ranges. Heparin therapeutic range (represented by Anti-Factor Xa activity of 0.2 - 0.4 U/mL) corresponds to PTT of 56.6 - 109.0 sec. INR Coag (PPP) [Relative time] 1.38 {INR} Invalid Interpretation Code [facility] Auto Coag Comment on above: Interpretive Data: I NR results are specifically intended to assess patients stabilized on long-term Anticoagulation therapy suggested INR s Less Intensive Anticoagulation 2.0 3.0 Conventional Range 3.0 4.5 PT Coag (PPP) [Time] 15.5 s High 9.4 - 1 2.5 second(s) [facility] Auto Coag Comment on above: Interpretive Data: [...] the same coagulation reagent and instrumentation as [facility]. Currently there are no coagulation studies available worldwide for children to 14 days, and no normal ranges. Consent for Treatmenton 08-03 Consent for Treatment [id number]#1.00TIFF Normal [facility] ED Note-Physicianon 08-27-19 ED Note-Physician Basic Information Time Seen: bridget Jasepastora Monroy 08/27/2023 20:39 Chief Complaint SOB and weakness over the past couple of days. Pt. denies CP. Slight cough. Has hx of parkinson's, but states generalized weakness now. History of Present Illness Patient is a 72-year-old male with past medical history of hypertension, hyperlipidemia, paroxysmal atrial fibrillation on Eliquis, CHF, CAD, bipolar disorder presenting to the ED for evaluation of shortness of breath and generalized weakness. Patient states he has had shortness of breath for the last several weeks however is worsened over the last couple of days. Patient also noted increasing weakness causing him to nearly fall several times. Patient denies any fevers, chills, chest pain. Does note some lightheadedness. Review of Systems A 10 point review of systems is negative except as noted above. Medical and Surgical History: Reviewed and noted Social history: Lives at home Tobacco: Denies Physical Exam Vitals & Measurements T: 36.6 ?C(Oral) HR: 60(Monitored) RR: 18 BP: 116/59 SpO2: 96% HT: 177 cm WT: 100.6 kg BMI: 32.11 General: Well developed, non toxic appearing, no acute distress HEENT: Head atraumatic, Mucosa moist, hearing grossly normal Neck: No JVD, tracheal deviation Cardiac: Regular rate, rhythm, no murmurs, or gallops, 2+ radial pulses Respiratory: Diminished breath sounds noted on auscultation bilaterally, normal respiratory effort Abdomen: Soft non tender, no rebound or guarding, no peritoneal signs Extremities: No edema noted in the LE B/L, no tenderness to palpation Neurologic: Alert and oriented, speech clear Skin: No rashes or lesions Psych: Appropriate mood and behavior Medical Decision Making MEDICAL DECISION MAKING Number and Complexity of Problems Differential Diagnosis: [] [facility] Data External documents reviewed: [] My EKG interpretation: [] My CT interpretation: [] My X-ray interpretation: [] My Ultrasound interpretation: [] Decision rules/scores evaluated: [] Discussed with: [] Treatment and Disposition ED Course: Patient is a 72-year-old male presenting to the ED for evaluation of generalized weakness, shortness of breath. Patient is nontoxic and on arrival, no acute distress. No edema on examination. Laboratory evaluation is obtained, chest x-ray is ordered. Patient's laboratory evaluation shows an LAWANDA with a creatinine of 2.5 with a baseline of 1.3, troponin is negative, BNP is negative flu and COVID swabs are negative. Chest x-ray shows cardiomegaly without evidence of volume overload. Patient is given a 500 mL normal saline fluid bolus. Due to patient's LAWANDA I discussed admission to the hospital with the patient he is agreeable. I discussed the case with the hospitalist accepts the patient for admission. Shared decision making: [] Code status: [] Assessment/Plan LAWANDA (acute kidney injury) (N17.9: Acute kidney failure, unspecified) Dyspnea (R06.00: Dyspnea, [...] Therapy PT & PTT Rapid COVID Antigen ([facility]) Saline Lock Insert Troponin 0 Hr. Troponin 3 Hr. Troponin 6 Hr. Troponin 9 Hr. XR Chest Single View Medications Administered Given Sodium Chloride 0.9% IV Ayanna 500 mL 500 mL, 500 mL, IV Disposition Plan Patient Discharge Condition Fair Discharge Disposition Admitted Discharge Prescription List Prescriptions No active prescription medications Follow-up No qualifying data available Problem List/Past Medical History Ongoing Bipolar I disorder, mild, current or most recent episode depressed, in full remission, with mixed features Bladder cancer BPH with obstruction/lower urinary tract symptoms CAD (coronary artery disease) Carotid artery stenosis Charcot's joint of foot due to diabetes Chronic anemia Chronic anticoagulation Chronic GERD Chronic systolic heart failure Colon polyps Contracture of ankle joint Family history of prostate cancer Generalized anxiety disorder History of bladder cancer Hyperlipidemia, unspecified Hypertension Hypothyroid MCFP (current) use of insulin Morbid obesity Obesity JASMIN on CPAP Other obstructive and reflux uropathy PAF (paroxysmal atrial fibrillation) Pain in limb Paraphimosis Parkinsonian syndrome Presence of combination internal cardiac defibrillator (ICD) and pacemaker Screening PSA (prostate specific antigen) Type 2 diabetes mellitus with hyperlipidemia Urinary retention Weakness generalized 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 Normal [facility] Comment on above: Result Comment: Elec tronically Signed By: Srinivasa Courtney DO\.br\Date and Time Signed: 08/27/23 23:01 EDT HEMATOLOGYOrdered [...] 4 Influenzae A Ag Negative Normal Negative [facility] Comment on above: Performed By: #### 4 [id number], [id number] #### [facility] [address] [place] [address] Influenzae B Ag Negative Normal Negative [facility] Comment on above: Result Comment: Test sensitivity and specificity vary for age group, specimen type, antigen types, and prevalence of disease. Test results must be evaluated in conjunction with other clinical data available to the physician. Individuals who received nasally administered Influenza A vaccine may have positive test results up to 3 days after vaccination. Performed By: #### 4 [id number], [id number] #### [facility] [address] [place] [address] MICRO OTHER TESTSOrdered By: Jerrell Corey on 08-27-2023 Influenzae A Ag Negative (08/27/23 9:02 PM) Normal Negative [facility] Influenzae B Ag Negative 2 (08/27/23 9:02 PM) Normal Negative [facility] Comment on above: Interpretive Data: [...] NEG Ctl Pass (08/27/23 9:02 PM) Normal [facility] Rapid COV Int POS Ctl Pass (08/27/23 9:02 PM) Normal [facility] SARS-CoV+SARS-CoV-2 (COVID-19) Ag IA.rapid Ql (Resp) Not Detected 12 (08/27/23 9:02 PM) Normal Not Detected [facility] Comment on above: Interpretive Data: T he [employer] System for Rapid Detection of SARS-CoV-2 [...] 08-27-2023 Magnesium [Mass/Vol] 2.3 mg/dL Normal 1.3-2.4 [facility] Comment on above: Performed By: #### 1 1608607, 9051590, 3996356, 77241389, 90092384, 4454267, 26700417 ####[facility] [address] [place] [address] PT & PTTon 08-27-2023 aPTT Coag (PPP) [Time] 39.2 second(s) High 25.1-36.5 [facility] Comment on above: Result Comment: Para [...] the same coagulation reagent and instrumentation as [facility]. Currently there are no coagulation studies available worldwide for children to 14 days, and no normal ranges. Heparin therapeutic range (represented by Anti-Factor Xa activity of 0.2 - 0.4 U/mL) corresponds to PTT of 56.6 - 109.0 sec. Performed By: #### 1 7994974, 9018228, 9290892, 16155961, 05015628, 7205961, 59867098 ####[facility] [address] [place] [address] INR Coag (PPP) [Relative time] 1.38 {INR} Invalid Interpretation Code [facility] Comment on above: Result Comment: INR results are specifically intended to assess patients stabilized on long-term Anticoagulation therapy suggested INR?s ?Less Intensive Anticoagulation? 2.0 ? 3.0 Conventional Range 3.0 ? 4.5 Performed By: #### 1 0935719, 5060072, 2480809, 21348125, 64337263, 5640911, 35434923 ####[facility] [address] [place] [address] PT Coag (PPP) [Time] 15.5 second(s) High 9.4-12.5 [facility] Comment on above: Result Comment: 15 [...] the same coagulation reagent and instrumentation as [facility]. Currently there are no coagulation studies available worldwide for children to 14 days, and no normal ranges. Performed By: #### 1 4929608, 5392477, 4189372, 58068820, 09456131, 8068511, 00425422 ####[facility] [address] [place] [address] Rapid COVID Antigen ([facility])on 08-27-2023 Rapid COV Int NEG Ctl Pass Normal [facility] Comment on above: Performed By: #### 4 [id number], [id number] #### [facility] [address] [place] [address] Rapid COV Int POS Ctl Pass Normal [facility] Comment on above: Performed By: #### 4 [id number], [id number] #### [facility] [address] [place] [address] SARS-CoV+SARS-CoV-2 (COVID-19) Ag IA.rapid Ql (Resp) Not detected Normal Not Detected [facility] Comment on above: Result Comment: The [employer] System for Rapid Detection of SARS-CoV-2 is [...] terminated or revoked sooner. Performed By: #### 4 [id number], [id number] #### [facility] [address] [place] [address] Troponin 0 Hr.on 08-27-2023 Troponin 18.90 pg/mL Normal 15.90-38.4 0 [facility] Comment on above: Result Comment: The 95% CI (Confidence Interval) PPV (Positive Predictive Value) for myocardial infarction in females is 38 pg/mL, in males 51 pg/mL. The results should be used in conjunction with clinical conditions of myocardial infarction. (Access High Sensitivity Troponin I Instructions For Use, [employer], January 2018) Performed By: #### 1 9000531, 6623565, 1384081, 44245275, 78786594, 0357437, 47032274 ####[facility] [address] [place] [address] Troponin 3 Hr.on 08-27-2023 Troponin 18.60 pg/mL Normal 15.90-38.4 0 [facility] Comment on above: Result Comment: The 95% CI (Confidence Interval) PPV (Positive Predictive Value) for myocardial infarction in females is 38 pg/mL, in males 51 pg/mL. The results should be used in conjunction with clinical conditions of myocardial infarction. (Access High Sensitivity Troponin I Instructions For Use, [employer], January 2018) Performed By: #### 2 435545, 43858556, 8748674, 2312608, 9833769, 5544713, 9326781 #### [facility] [address] [place] [address] eGFRon 08-27-2023 eGFR 26 mL/min/1.73 m2 Low >=59 [facility] Comment on above: Order Comment: Order added by Discern Expert. Performed By: #### 1 0652598, 4372259, 0783111, 99285840, 91955625, 2951304, 48597286 ####[facility] [address] [place] [address] C. diff by PCRon 08-11-2023 Clostridium difficile by PCR Negative Normal Negative [facility] Comment on above: Order Comment: Order added by Discern Expert. Result Comment: This test result should be correlated with clinical presentations and medical history by a healthcare provider to determine its clinical significance. Performed By: #### 4 [id number], [id number] #### [facility] [address] [place] [address] CDiff PCRon 08-11-2023 C. difficile toxin A+B Ql (Stl) No, PCR to follow Normal [facility] Comment on above: Performed By: #### 4 [id number], [id number] #### [facility] [address] [place] [address] No Panel Informationon 08-10 Clostridium difficile (PCR)(LAB) Specimen Negative for toxigenic C. difficile by DNA amplification. Negative [facility] Clostridium Difficile Toxin A & B Acceptable [facility] Physician Orderon 08-11-2023 Physician Order [id number]#1.00TIFF Normal [facility] CDiff PCRon 07-26-2023 Cdiff Specimen Acceptable Unacceptable Normal [facility] Comment on above: Performed By: #### 4 [id number], [id number] #### [facility] [address] [place] [id number] Order Cancelled YES Normal [facility] Comment on above: Performed By: #### 4 [id number], [id number] #### [facility] [address] [place] [id number] No Panel Informationon 07-26 Cancelled Test [facility] Clostridium difficile Note Unacceptable [facility] Physician Orderon 07-26-2023 Physician Order [id number]#1.00TIFF Normal [facility] CDiff PCRon 07-18-2023 Cdiff Specimen Acceptable Unacceptable Normal [facility] Comment on above: Performed By: #### 3 [id number] #### [facility] [address] [place] [address] Order Cancelled YES Normal [facility] Comment on above: Performed By: #### 3 [id number] #### [facility] [address] [place] [address] No Panel Informationon 07-18 Cancelled Test [facility] Clostridium difficile Note Unacceptable [facility] Physician Orderon 07-18-2023 Physician Order [id number]#1.00TIFF [facility] Consent for Procedure/Surger yon 07-17-2023 Consent for Procedure/Surgery [id number]#1.00TIFF [facility] Consent for Treatmenton 07-05 Consent for Treatment [id number]#1.00TIFF [facility] IntraOperative Documentson 0 07-17-2023 IntraOperative Documents [id number]#1.00TIFF [facility] Main OR Intraoperative Recor don 07-17-2023 Main OR Intraoperative Record IntraOp Document Type FTURO Summary Primary Physician: Andi WARE MD Finalized Date/Time: 07/17/23 09:58:15 Pt. Name: JOSÉ LUIS FAULKNER/Sex: 1950 Male Med Rec #: [id number] Physician: Andi WARE MD Financial #: [id number] Pt. 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 Surgeon Description CYSTO Primary Procedure Yes Primary Surgeon Andi WARE MD Start 07/17/23 09:52:00 Stop 07/17/23 09:57:00 Anesthesia Type Local Surgical Service Urology Wound Class 2 - Clean-Contaminated Last Modified By: IRAIDA Doll RN, Ruthann 07/17/23 09:55:54 General Case Data FTURO Pre-Care Text: Classifies surgical wound, implements aseptic technique, initiates traffic control Entry 1 Case Information OR URO 1 FT Case Level None Wound Class 2 - Clean-Contaminated Specialty Urology Preop Diagnosis HISTORY OF BLADDER Postop Same As Preop No CANCER Postop Diagnosis clear bladder Outcomes Met? Yes Last Modified By: IRAIDA Doll RN, Ruthann 07/17/23 09:57:54 Post-Care Text: The patient is free from signs and symptoms of infection EU IntraOp - FTURO Pre-Care Text: Implements protective measures prior to operative or invasive procedure, confirms identity before the operative or invasive procedure, verifies operative procedure, surgical site, and laterality Entry 1 EU Perioperative Protocols Procedure(s) CYSTOSCOPY LOCAL(.) Patient Identity Birthday, ID Band Check Verified (select at least 2): Consents / H and P HandP, Surgery/Procedure Operative Site N/A Verified Consent Marking Verified Surgical Site Yes Laterality Verified n/a Verified Procedure Verified Yes Correct Patient Yes Position Verified Availability Equipment, Medication Time Out Andi WARE MD, Verified (If Participants Katheryn SOLIS, Maxine Applicable) Lavon Monroy RN, CNOR, Ruthann Time Out Complete 07/17/23 09:47:00 Allergies Reviewed? Yes Allergies Reviewed Self/Patient With Body Position Supine Prep Area penis Prep Agents Betadine Solution Skin. Condition Unable to Visualize Additional None Specimens Collected Vitals - EU Blood Pressure 162/67 Pulse 60 bpm Respirations 18 br/min SPO2 IandO - EU Total Intake 0 Total Output 0 Outcomes Met? Yes Last Modified By: IRAIDA Doll RN, Ruthann 07/17/23 09:52:21 Post-Care Text: The patient is free from signs and symptoms of injury caused by extraneous objects Sign Out FTURO Entry 1 Before Patient Leaves OR Nurse verbally Yes Nurse verbally n/a confirms [...] name), if applicable addressed Sign Out Complete 07/17/23 09:59:00 Last Modified By: IRAIDA Doll RN, Ruthann 07/17/23 09:58:13 Case Comments Finalized By: IRAIDA Dlol RN, Ruthann Document Signatures Signed By: IRAIDA Doll RN, Ruthann 07/17/23 09:58 Normal [facility] Main OR Preoperative Recordo n 07-17-2023 Main OR Preoperative Record Holding Area Document Type FTURO Summary Primary Physician: Andi WARE MD Finalized Date/Time: 07/17/23 09:47:41 Pt. Name: JOSÉ LUIS FAULKNER/Sex: 1950 Male Med Rec #: [id number] Physician: nAdi WARE MD Financial #: [id number] Pt. Type: O Room/Bed: / Admit/Disch: 07/17/23 08:59:19 - Institution: Case Times Holding FTURO Pre-Care Text: Verifies consent for planned procedure, identifies individual values and wishes concerning care, includes family members in perioperative teaching Secures patient's records' belongings, and valuables, maintains patient's dignity and privacy, and maintains patient confidentiality Entry 1 In Holding 07/17/23 09:18:00 Outcomes Met? Yes Last Modified By: Darlene Barroso LPN 07/17/23 09:18:40 Post-Care Text: The patient participates in decisions affecting his or her perioperative plan of care The patient's right to privacy is maintained Surgery Checklist FTURO Entry 1 Patient Birthday, ID Band Procedure History and Physical Identification: Check, Patient Verification: Participation NPO after Midnight: No Personal Items: Cataract Lens Implant, Defibrilator, Dentures, Pacemaker Limitations: uses rollator Complaints of Pain: No Skin Integrity Intact, [place], Warm, & Dry Vitals - EU Blood Pressure 162/67 Pulse 60 bpm Respirations 18 br/min SPO2 97 % Additional MIKE MCCLELLAND Reviewed Yes Specimens Collected Last Modified By: IRAIDA Doll RN, Ruthann 07/17/23 09:47:38 Finalized By: IRAIDA Doll RN, Ruthann Document Signatures Signed By: Darlene Barroso LPN 07/17/23 09:32 IRAIDA Doll RN, Ruthann 07/17/23 09:47 Normal [facility] Operative Reporton Operative Report Patient: JOSÉ LUIS FAULKNER Age: 72 years Sex: Male : 1950 Associated Diagnoses: None Author: Andi WARE MD Procedure Operative Information Details: Date/ Time: 07/17/2023 09:58:00. Pre-Op Dx: Hx of Bladder CA - [...] Urethra is: Normal. The Prostatic Urethra is: Obstructed. The Bladder is: Trabeculated (Moderate (2), No bladder tumors. No erythematous mucosal lesions.). The ureteral orifices: Show efflux of clear urine. Specimens Removed: Bladder wash sent for FISH and Cytology test. Devices Implanted: None. Removal: Cystoscope is removed, The patient tolerated it well. Postoperative Information Discharge: Patient is discharged home with antibiotic coverage, Follow up arranged. Normal [facility] Comment on above: Result Comment: Elec tronically Signed By: MIGUELINA BROUSSARD, Andi Mar\Date and Time Signed: 07/17/23 09:59 EST [facility] Fish and Urine Cyt o ([facility])on 07-17-2023 [facility] Method of Extraction Bladder Wash Normal [facility] Comment on above: Performed By: #### 1 [id number] ####[facility] [id number] [place] [id number] [facility] Number of Jars 1 Invalid Interpretation Code [facility] Comment on above: Performed By: #### 1 [id number] ####[facility] [address] [place] [address] [facility] Specimen Urine Normal [facility] Comment on above: Performed By: #### 1 [id number] ####[facility] [address] [place] [address] [facility] Type of Service Technical Only Normal [facility] Comment on above: Performed By: #### 1 [id number] ####[facility] [address] [place] [address] Alanine aminotransferase [En zymatic activity/volume] in Serum or PlasmaOrdered By: Cayden Petty on 06-17-2023 ALT [Catalytic activity/Vol] 19 U/L Normal [facility] Comment on above: Performed By: #### C K, BNP, HS TROP, CBC, CMP #### [facility] [address] Albumin [Mass/volume] in Ser um or Plasma by Bromocresol green (BCG) dye binding methoOrdered By: Cayden Petty on 06-17-2023 Albumin BCG dye [Mass/Vol] 4.1 g/dL 3.5-5.7 [facility] Alkaline phosphatase [Enzyma tic activity/volume] in Serum or PlasmaOrdered By: Cayden Petty on 06-17-2023 ALP [Catalytic activity/Vol] 88 U/L Normal 34-104 [facility] Comment on above: Performed By: #### C K, BNP, HS TROP, CBC, CMP #### [facility] [address] [place] [address] Aspartate aminotransferase [ Enzymatic activity/volume] in Serum or PlasmaOrdered By: Cayden Petty on 06-17-2023 AST [Catalytic activity/Vol] 14 U/L Normal 13-39 [facility] Comment on above: Performed By: #### C K, BNP, HS TROP, CBC, CMP #### [address] Automated basophil %Ordered By: Cayden Petty on 06-17-2023 Basophils/100 WBC (Bld) 1.0 % Normal . [facility] Comment on above: Performed By: #### C K, BNP, HS TROP, CBC, CMP #### [address] Automated basophil countOrde red By: Cayden Petty on 06-17-2023 Basophils (Bld) [#/Vol] 0.1 10*3/uL Normal 0.0-0.2 [facility] Comment on above: Result Comment: PERF ORMED BY: [place] [address] PATHOLOGIST [employer] APPRENTICE ANUSHA MANCUSO M.D. Performed By: #### C K, BNP, HS TROP, CBC, CMP #### [address] Automated blood monocyte cou ntOrdered By: Cayden Petty on 06-17-2023 Monocytes (Bld) [#/Vol] 0.5 10*3/uL Normal 0.0-0.8 [facility] Comment on above: Performed By: #### C K, BNP, HS TROP, CBC, CMP #### [address] Automated eosinophil %Ordere d By: Cayden Petty on 06-17-2023 Eosinophils/100 WBC (Bld) 3.3 % Normal . [facility] Comment on above: Performed By: #### C K, BNP, HS TROP, CBC, CMP #### [address] Automated eosinophil countOr dered By: Cayden Petty on 06-17-2023 Eosinophils (Bld) [#/Vol] 0.2 10*3/uL Normal 0.0-0.45 [facility] Comment on above: Performed By: #### C K, BNP, HS TROP, CBC, CMP #### [address] Automated monocyte %Ordered By: Cayden Petty on 06-17-2023 Monocytes/100 WBC (Bld) 6.7 % Normal . [facility] Comment on above: Performed By: #### C K, BNP, HS TROP, CBC, CMP #### [address] Automated neutrophil %Ordere d By: Cayden Petty on 06-17-2023 Neutrophils/100 WBC (Bld) 72.9 % Normal . [facility] Comment on above: Performed By: #### C K, BNP, HS TROP, CBC, CMP #### [address] BNP ser/plasOrdered By: Cayden Petty on 06-17-2023 Natriuretic peptide B (Bld) [Mass/Vol] 271.0 pg/mL High 5-100 [facility] Comment on above: Result Comment: PERF ORMED BY: [place] [address] PATHOLOGIST [employer] APPRENTICE ANUSHA MANCUSO M.D. Performed By: #### C K, BNP, HS TROP, CBC, CMP #### [address] Bilirubin.total [Mass/volume ] in Serum or PlasmaOrdered By: Cayden Petty on 06-17-2023 Bilirubin [Mass/Vol] 0.4 mg/dL Normal 0.3-1.0 [facility] Comment on above: Performed By: #### C K, BNP, HS TROP, CBC, CMP #### [address] Calcium [Mass/volume] in Ser um or PlasmaOrdered By: Cayden Petty on 06-17-2023 Calcium [Mass/Vol] 8.6 mg/dL Normal 8.6-10.3 [facility] Comment on above: Performed By: #### C K, BNP, HS TROP, CBC, CMP #### [address] Carbon dioxide, total [Moles /volume] in Serum or PlasmaOrdered By: Cayden Petty on 06-17-2023 CO2 [Moles/Vol] 23.4 mmol/L Normal 21.0-31.0 [facility] Comment on above: Performed By: #### C K, BNP, HS TROP, CBC, CMP #### [address] Chloride [Moles/volume] in S annalise or PlasmaOrdered By: Cayden Petty on 06-17-2023 Chloride [Moles/Vol] 105 mmol/L Normal 98-107 [facility] Comment on above: Performed By: #### C K, BNP, HS TROP, CBC, CMP #### [address] Complete Blood Count Auto Di ffon 06-17-2023 Mean Corpuscular HGB Conc 32.5 g/dL Normal 32.5-35.6 [facility] Comment on above: Performed By: #### C K, BNP, HS TROP, CBC, CMP #### [address] Monocytes/100 WBC (Bld) 16.93 % Normal 0.00-20.00 [facility] Comment on above: Performed By: #### C K, BNP, HS TROP, CBC, CMP #### [address] NRBC% 0.1 /100{WBC} Normal 0-0.5 [facility] Comment on above: Performed By: #### C K, BNP, HS TROP, CBC, CMP #### [address] Comprehensive Metabolic Pane victor m 06-17-2023 Albumin [Mass/Vol] 4.1 g/dL Normal 3.5-5.7 [facility] Comment on above: Performed By: #### C K, BNP, HS TROP, CBC, CMP #### [address] Creatinine Clr Calc Pharmacy 51.38 Normal [facility] Comment on above: Result Comment: PERF ORMED BY: [place] [address] PATHOLOGIST [employer] APPRENTICE ANUSHA MANCUSO M.D. Performed By: #### C K, BNP, HS TROP, CBC, CMP #### [address] GFR/1.73 sq M.predicted MDRD (S/P/Bld) [Vol rate/Area] 49.339 mL/min/{1.73_m2} Normal [facility] Comment on above: Performed By: #### C K, BNP, HS TROP, CBC, CMP #### [address] Creatine kinase [Enzymatic a ctivity/volume] in Serum or PlasmaOrdered By: Cayden Petty on 06-17-2023 CK [Catalytic activity/Vol] 33 U/L Normal 30-223 [facility] Comment on above: Performed By: #### C K, BNP, HS TROP, CBC, CMP #### [address] Creatinine [Mass/volume] in Serum or PlasmaOrdered By: Cayden Petty on 06-17-2023 Creatinine [Mass/Vol] 1.48 mg/dL High 0.70-1.30 [facility] Comment on above: Performed By: #### C K, BNP, HS TROP, CBC, CMP #### [facility] [address] ECG 12 lead ECGon 06-17-2023 ECG 12 lead ECG [facility] [place] [address] [place] [address] Electrocardiograph Report Signed Patient: José Luis Faulkner MR#: [id number] : 1950 Acct:[id number] Age/Sex: 72 / M ADM Date: 06/17/23 Loc: ER Room: Type: [facility] ER Attending Dr: Ordering Provider: Cayden Petty [...] Cayden Petty MD 06/18/23 0009 Normal [facility] Erythrocyte distribution wid th [Ratio] by Automated countOrdered By: Cayden Petty on 06-17-2023 Erythrocyte distribution width (RBC) [Ratio] 16.6 % High 12.0-14.8 [facility] Comment on above: Performed By: #### C K, BNP, HS TROP, CBC, CMP #### [facility] [address] [place], [place] [id number] [facility] Erythrocytes [#/volume] in B lood by Automated countOrdered By: Cayden Petty on 06-17-2023 RBC (Bld) [#/Vol] 3.44 10*6/uL Low 3.90-5.60 [facility] Comment on above: Performed By: #### C K, BNP, HS TROP, CBC, CMP #### [facility] [address] Glucose [Mass/volume] in Ser um or PlasmaOrdered By: Cayden Petty on 06-17-2023 Glucose [Mass/Vol] 240 mg/dL High 70-100 [facility] Comment on above: ADA recommended refe rence rangeRandom Glucose Reference Range is dependent on time and content of last meal. Glucose of more than 200 mg/dL in a nonstressed, ambulatory subject supports the diagnosis of Diabetes Mellitus. Result Comment: [place] om Glucose Reference Range is dependent on time and content of last meal. Glucose of more than 200 mg/dL in a nonstressed, ambulatory subject supports the diagnosis of Diabetes Mellitus. ADA recommended reference range Performed By: #### C K, BNP, HS TROP, CBC, CMP #### [facility] [address] Hematocrit [Volume Fraction] of Blood by Automated countOrdered By: Cayden Petty on 06-17-2023 Hematocrit (Bld) [Volume fraction] 29.7 % Low 38.8-50.0 [facility] Comment on above: Performed By: #### C K, BNP, HS TROP, CBC, CMP #### [address] Hemoglobin [Mass/volume] in BloodOrdered By: Cayden Petty on 06-17-2023 Hemoglobin (Bld) [Mass/Vol] 9.6 g/dL Low 13.0-17.0 [facility] Comment on above: Performed By: #### C K, BNP, HS TROP, CBC, CMP #### [facility] [address] Leukocytes [#/volume] correc [place] for nucleated erythrocytes in Blood by Automated counOrdered By: Cayden Petty on 06-17-2023 WBC corrected for nucl RBC Auto (Bld) [#/Vol] 7.5 10*3/uL 4.1-10.5 [facility] Leukocytes [#/volume] in Blo od by Automated countOrdered By: Cayden Petty on 06-17-2023 WBC (Bld) [#/Vol] 7.5 10*3/uL Normal 4.1-10.5 [facility] Comment on above: Performed By: #### C K, BNP, HS TROP, CBC, CMP #### [facility] [address] Lymphocytes [#/volume] in Bl ood by Automated countOrdered By: Cayden Petty on 06-17-2023 Lymphocytes (Bld) [#/Vol] 1.2 10*3/uL Normal 1.00-4.8 [facility] Comment on above: Performed By: #### C K, BNP, HS TROP, CBC, CMP #### [facility] [address] Lymphocytes/100 leukocytes i n Blood by Automated countOrdered By: Cayden Petty on 06-17-2023 Lymphocytes/100 WBC (Bld) 16.1 % Normal . [facility] Comment on above: Performed By: #### C K, BNP, HS TROP, CBC, CMP #### [address] MCH [Entitic mass] by [place] countOrdered By: Cayden Petty on 06-17-2023 MCH (RBC) [Entitic mass] 28.0 pg Normal 27.5-35.2 [facility] Comment on above: Performed By: #### C K, BNP, HS TROP, CBC, CMP #### [facility] [address] MCHC Auto (RBC) [Mass/Vol]Or dered By: Cayden Petty on 06-17-2023 MCHC (RBC) [Mass/Vol] 32.5 g/dL 32.5-35.6 [facility] MCV [Entitic volume] by Auto mated countOrdered By: Cayden Petty on 06-17-2023 MCV (RBC) [Entitic vol] 86.2 fL Normal 83.5-101 [facility] Comment on above: Performed By: #### C K, BNP, HS TROP, CBC, CMP #### [facility] [address] Monocyte distribution width [Entitic volume] in Blood by AutomatedOrdered By: Cayden Petty on 06-17-2023 Monocyte distribution width Auto (Bld) [Entitic vol] 16.93 % 0.00-20.00 [facility] Neutrophils [#/volume] in Bl ood by Automated countOrdered By: Cayden Petty on 06-17-2023 Neutrophils (Bld) [#/Vol] 5.5 10*3/uL Normal 1.8-7.7 [facility] Comment on above: Performed By: #### C K, BNP, HS TROP, CBC, CMP #### [facility] [address] [place] [address] No Panel InformationOrdered By: Cayden Petty on 06-17-2023 Estimated GFR (CKD-EPI) 49.339 mL/Min [facility] Creatinine Clearance (Chem 51.38 [facility] Nucleated erythrocytes [Pres ence] in Blood by Automated countOrdered By: Cayden Petty on 06-17-2023 Nucleated RBC Auto Ql (Bld) 0.1 /100{WBC} 0-0.5 [facility] Platelet mean volume [Entiti c volume] in Blood by Automated countOrdered By: Cayden Petty on 06-17-2023 Platelet mean volume (Bld) [Entitic vol] 7.1 fL Normal 6.6-10.1 [facility] Comment on above: Performed By: #### C K, BNP, HS TROP, CBC, CMP #### [facility] [address] [place] [address] Platelets [#/volume] in Bloo d by Automated countOrdered By: Cayden Petty on 06-17-2023 Platelets (Bld) [#/Vol] 286 10*3/uL Normal 150-450 [facility] Comment on above: Performed By: #### C K, BNP, HS TROP, CBC, CMP #### [facility] [address] [place] [address] Potassium [Moles/volume] in Serum or PlasmaOrdered By: Cayden Petty on 06-17-2023 Potassium [Moles/Vol] 4.6 mmol/L Normal 3.5-5.1 [facility] Comment on above: Performed By: #### C K, BNP, HS TROP, CBC, CMP #### [address] Protein [Mass/volume] in Ser um or PlasmaOrdered By: Cayden Petty on 06-17-2023 Protein [Mass/Vol] 7.2 g/dL Normal 6.4-8.9 [facility] Comment on above: Performed By: #### C K, BNP, HS TROP, CBC, CMP #### [address] Serum globulin measurement b y calculation (mass/volume)Ordered By: Cayden Petty on 06-17-2023 Globulin (S) [Mass/Vol] 3.1 g/dL [facility] Comment on above: Performed By: #### C K, BNP, HS TROP, CBC, CMP #### [address] Serum or plasma albumin/glob ulin mass ratioOrdered By: Cayden Petty on 06-17-2023 Albumin/Globulin [Mass ratio] 1.3 {ratio} [facility] Comment on above: Performed By: #### C K, BNP, HS TROP, CBC, CMP #### [address] Serum or plasma anion gap de terminationOrdered By: Cayden Petty on 06-17-2023 Anion gap [Moles/Vol] 15.2 mmol/L High 6.0-15.0 [facility] Comment on above: Performed By: #### C K, BNP, HS TROP, CBC, CMP #### [address] Sodium [Moles/volume] in Ser um or PlasmaOrdered By: Cayden Petty on 06-17-2023 Sodium [Moles/Vol] 139 mmol/L Normal 136-145 [facility] Comment on above: Performed By: #### C K, BNP, HS TROP, CBC, CMP #### [address] Troponin I High Sensitivityo n 06-17-2023 Troponin I High Sensitivity 14.5 pg/mL Normal 0.0-20.0 [facility] Comment on above: Result Comment: PERF ORMED BY: [address] [place] [address] PATHOLOGIST [employer]CH[employer] APPRENTICE ANUSHA MANCUSO M.D. Performed By: #### C K, BNP, HS TROP, CBC, CMP #### [facility] [address] [place] [address] Troponin I.cardiac [Mass/vol ume] in Serum or Plasma by Detection limit <= 0.01 ng/Ordered By: Cayden Petty on 06-17-2023 Troponin I.cardiac DL <= 0.01 ng/mL [Mass/Vol] 14.5 pg/mL 0.0-20.0 [facility] Urea nitrogen [Mass/volume] in Serum or PlasmaOrdered By: Cayden Petty on 06-17-2023 Urea nitrogen [Mass/Vol] 18 mg/dL Normal 7-25 [facility] Comment on above: Performed By: #### C K, BNP, HS TROP, CBC, CMP #### [facility] [address] [place] [address] XR chest 1V portableon 06-17 XR chest 1V portable [facility] [place] [address] [place] [address] XRay Report Signed Patient: José Luis Faulkner MR#: [id number] : 1950 Acct:[id number] Age/Sex: 72 / M ADM Date: 06/17/23 Loc: ER Room: Type: [facility] ER Attending Dr: Copies to: Cayden Petty MD Ordering Provider: Cayden Petty MD Date of Service: 06/17/23 XR/XR [...] Carmen Liu M.D.06/17/2023 4:49 PM Dictation Location: [place] [address] Transcribed By: [facility] 06/17/231648 Dictated By: Carmen Liu II, MD 06/17/231645 Signed By: 06/17/231648 Normal [facility] BMPon 06-12-2023 Anion gap [Moles/Vol] 13 mmol/L Normal 6-[address] [facility] Comment on above: Performed By: #### 4 [id number], [id number] #### [facility] [address] [place] [address] BUN/Creat Ratio 15 No Units Normal 10-20 [facility] Comment on above: Performed By: #### 4 [id number], [id number] #### [facility] [address] [place] [address] Calcium [Mass/Vol] 8.9 mg/dL Normal 8.9-11.1 [facility] Comment on above: Performed By: #### 4 [id number], [id number] #### [facility] [address] [place] [address] Chloride [Moles/Vol] 104 mmol/L Normal 101-111 [facility] Comment on above: Performed By: #### 4 [id number], [id number] #### [facility] [address] [place] [address] CO2 [Moles/Vol] 30 mmol/L Normal 21-31 [facility] Comment on above: Performed By: #### 4 [id number], [id number] #### [facility] [address] [place] [address] Creatinine [Mass/Vol] 1.3 mg/dL Normal 0.5-1.[address] [facility] Comment on above: Performed By: #### 4 [id number], [id number] #### [facility] [address] [place] [address] Glucose [Mass/Vol] 151 mg/dL Normal 55-199 [facility] Comment on above: Performed By: #### 4 [id number], [id number] #### [facility] [address] [place] [address] Potassium [Moles/Vol] 4.4 mmol/L Normal 3.5-5.[address] [facility] Comment on above: Performed By: #### 4 [id number], [id number] #### [facility] [address] [place] [address] Sodium [Moles/Vol] 143 mmol/L Normal 135-145 [facility] Comment on above: Performed By: #### 4 [id number], [id number] #### [facility] [address] [place] [address] Urea nitrogen [Mass/Vol] 19 mg/dL Normal 5-21 [facility] Comment on above: Performed By: #### 4 [id number], [id number] #### [facility] [address] [place] [address] CHEMISTRYOrdered By: SYSTEM SYSTEM on 06-12-2023 Anion [...] Consent for Treatmenton Consent for Treatment [id number]#1.00TIFF [facility] Physician Orderon 06-12-2023 Physician Order [id number]#1.00TIFF [facility] eGFRon 06-12-2023 eGFR 57 mL/min/1.73 m2 Low >=59 [facility] Comment on above: Order Comment: Order added by Discern Expert. Performed By: #### 4 [id number], [id number] #### [facility] [address] [place] [address] Consent for Treatmenton 05-04 Consent for Treatment [id number]#1.00TIFF [facility] Consent for Treatmenton Consent for Treatment [id number]#1.00TIFF [facility] Oncology Noteon 04-12-2023 Oncology Note Oncology Care Coordi nator Office Visit/Treatment Note Current Patient Status/Reason: Pt in with spouse for scheduled clinic visit for diagnosis anemia and 1 year ago for bladder cancer. I accompanied Dr. Yarbrough in room. Dr took pt's history. states dtr is RN and she stated while hospitalized it was noted that his Hgb is low and they did not treat it. Treatment Plan: labs in 3 months Iron, epo, retic, SPEP, MARGUERITE and PE, serum, then in 6 months labs CBC, CMP, Iron. Oral iron every other day. B12 orally daily. Follow-Up Appointment Info/Referrals: F/U in 6 months. Resources Offered: Pt's dtr will give B12 injections, dtr is an RN. Pt/ voiced no questions or concerns to me when I asked. I instructed in calling with any questions or concerns. clarified will also get CBC, CMP in 3 months. Normal [facility] Comment on above: Result Comment: Elec tronically Signed By: Tricia MCCLELLAND, Maria Del Carmen\.br\Date and Time Signed: 04/12/23 11:33 EST Oncology Progress Noteon Oncology Progress Note Patient: JOSÉ LUIS CORONEL Age: 72 years Sex: Male : 1950 Associated Diagnoses: None Author: Armani Yarbrough DO History of Present Illness 68-year-old male past medical history significant bipolar, bladder cancer, BPH, CAD with remote CABG x4 grafts, carotid artery disease, Charcot joint of the foot, chronic anemia, chronic anticoagulation, chronic GERD, chronic systolic heart failure, colon polyps, bladder cancer, hyperlipidemia, hypertension, hypothyroidism, morbid obesity, JASMIN on CPAP, paroxysmal atrial fibrillation, Parkinson's, ICD with remote ventricular tachycardia, type 2 diabetes. He has a family history of colon cancer. He has been seen by Dr. Tayo Miguel for many years for chronic intermittent iron deficiency and has received IV iron in the past. Recently he has had a few colonoscopies to see if he has any bleeding. Surveillance colonoscopy in April 2019 showed small external hemorrhoids, moderate internal hemorrhoids and sigmoid diverticulosis. Also 5 polyps. A follow-up colonoscopy in July 2019 Denies any complaints. He denies dark or bloody stools. He is doing well. 07/14/21 Has not been seen in our clinic since November 2019. He has had multiple procedures over the last year, most recently with his pacemaker being replaced in Apr 2021. He went into A Fib a week post op and had flash pulmonary edema. He was eventually cardioverted and returned to [facility]. He had a normal heart cath in May 2021. His daughter states that over the last month he has been having increased trouble with walking, he is more fatigued, has dyspnea on exertion and is weak. He states yesterday he fell and hit his head, but did not want to get checked out. He denies dizziness or balance issues, just feels weak. He does note some orthostatic hypotension. Otherwise he denies headaches, n/v/d/c, chest pains or any new pains. He also denies dark or bloody stools. He has been taking oral iron 325mg daily since March 2021 up until about [address] Baker referred him to our practice for continued anemia despite the oral iron. We do not have any recent labs, so will complete cbc, cmp, iron studies and epo today. 04/12/23 diagnosed with parkinsonian dementia. he is recently diagnosed with a bladder cancer. he is very fatigued. Improved much from a month ago. he had a lot of fluid overload. He notes a mini stroke during hospitalization in mar 2023. 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 recent hb from Dr. Baker was 10.8, normal plt and wbc. Review of Systems Constitutional: Weakness, Fatigue, Decreased activity. Eye: Negative. Ear/Nose/Mouth/Throat: Negative. Respiratory: Shortness of breath. Cardiovascular: Negative. Gastrointestinal: Negative. Genitourinary: Negative. Hematology/Lymphatics: Negative. Endocrine: Negative. Immunologic: Negative. Musculoskeletal: Negative. Integumentary: Negative. Neurologic: Negative. Psychiatric: Negative. All other systems are negative Health Status Allergies: Allergic Reactions (Selected) No Known Allergies Current medications: Home Medications (36) Active acetaminophen 325 mg Tab 650 mg = 2 tab(s), PRN, Oral, q6hr Aldactone 25 mg Tab 25 mg = 1 tab(s), Oral, Daily alprazolam 0.25 mg Tab 0.25 mg = 1 tab(s), PRN, Oral, TID amiodarone 300 mg, Oral, Daily amLODIPine 5 mg Tab 5 mg = 1 tab(s), Oral, Daily amoxicillin 500 mg Cap 500 mg = 1 cap(s), Oral, BID Anoro Ellipta 62.5 mcg-25 mcg inhalation powder 1 inh, Inhalation, Daily aripiprazole 5 mg Tab 10 mg [...] 100 mg = 1 cap(s), Oral, Daily cranberry oral capsule See Instructions doxycycline hyclate 100 mg Cap 100 mg = 1 cap(s), Oral, Daily DuoNeb 2.5 mg-0.5 mg/3 mL Soln-Inh 3 [...] mg = 1 tab(s), Oral, Daily levothyroxine 150 mcg (0.15 mg) Tab 150 mcg = 1 tab(s), Oral, Daily magnesium oxide 400 mg Tab 400 mg = 1 tab(s), Oral, Daily metformin 1000 mg Tab 1,000 mg = 1 tab(s), Oral, BID Multivitamins and Minerals 1 tablet, Oral, Daily nebulizer machine See Instructions Nitro 0.4 mg Tab 1 tablet, PRN, SubLingual, q5min NovoLIN N FlexPen 100 units/mL subcutaneous suspension 20 unit(s), SubCutaneous, BID Pantoprazole [address] Tab 40 mg = 1 tab(s), Oral, Daily Pro-Air HFA CFC free 90 mcg/inh MDI 2 puff(s), PRN, Inhalation, q4hr tamsulosin 0.4 mg Cap torsemide 20 mg Tab 20 mg = 1 tab(s), (more content not included)... Normal [facility] Consent for Treatmenton Consent for Treatment [id number]#1.00TIFF [facility] Heart and Vascular Office/Cl inic Noteon 04-09-2023 Heart and Vascular Office/Clinic Note Chief Complaint inpatient f/u History of Present Illness Here for follow-up for COPD and JASMIN. He was recently hospitalized for CHF exacerbation. Here with (poor historian as he is becoming more forgetful). The patient apparently has not been having SOB with moderate to significant activities recently but still with limited activity. He denies wheezing, cough or sputum production. He had mild worsening in his lower extremity edema after eating Filipino food a few days ago. He is compliant with his diuretics. His weight is unchanged. He has been using Anoro and as needed albuterol with some help. Now using oxygen as needed since his recent hospitalization. Quite smoking 1998. Still poorly compliant with his CPAP machine as he was removing his mask at night and is only. He is using oxygen at night with help and denies significant fatigue or daytime sleepiness Review of Systems PHQ Score Initial Depression Screen Score: 0 Constitutional: no fever, no chills, no sweats, no weakness Skin: no Jaundice, no rash, no lesions, no petechiae ENT: no ear pain, no sore throat, no congestion, no hoarseness Respiratory: as per HPI Cardiovascular: no chest [...] no food allergies, no recurrent infections, no impaired immunity Additional ROS info: Except as noted in the above Review of Systems and in the History of Present Illness all other systems have been reviewed and are negative or noncontributory. Physical Exam Vitals & Measurements HR: 60(Peripheral) BP: 105/58 SpO2: 98% HT: 70 in HT: 177 cm WT: 99.6 kg WT: 219.12 lb BMI: 31.79 General: Awake and alert in no acute distress HEENT: NC, AT Neck: Supple no JVD Respiratory: Good breath sounds to both lung [place] without wheezing or crackles Cardiovascular: regular rate and rhythm, no murmurs Extremities: No edema. Procedure IMPRESSION: There is moderate to severe restrictive lung disease with component of obstruction. There is no significant response to bronchodilators except in small airways. The lung diffusion capacity is reduced. In comparison to prior testing, there is mild worsening in the lung diffusion capacity and significant worsening in the total lung capacity. Clinical and radiographic correlation is recommended. [1] still poorly compliant with Assessment/Plan 1. COPD without exacerbation (J44.9: Chronic obstructive pulmonary disease, unspecified) To be doing well on current bronchodilator regimen with Anoro and as needed albuterol. Recent hospitalization but predominantly due to congestive heart failure with volume overload. We will continue same treatment. Ordered: umeclidinium-vilanterol, 1 inh, Inhalation, Daily for 30 day(s), 30 blister(s), Refill(s) 5, [facility] 1987, 177, cm, 04/09/23 9:40:00 EST, Height/Length Dosing, 99.6, kg, 04/09/23 9:40:00 EST, Weight Dosing 2. JASMIN (obstructive sleep apnea) (G47.33: Obstructive sleep apnea (adult) (pediatric)) Still especially given his recurrent cardiac issues with poor compliance with CPAP. His prior sleep study was reviewed with mild underlying obstructive sleep apnea. Discussed with the patient importance of compliance with CPAP and alternative methods of treating his underlying mild sleep apnea including oral appliance and surgical options. He will try again to use his machine and will let me know if any issues. 3. Lung disease, restrictive (J98.4: Other disorders of lung) His most recent pulmonary function test results were reviewed and discussed with the patient. Evidence of significant restrictive lung disease that has worsened from his prior PFTs. Currently on amiodarone with concern for amiodarone toxicity. I have reviewed the available chest x-rays, lung windows from his abdominal CT and lung windows from his neck CT and I do not see any signs to suggest pulmonary fibrosis on the above studies. Nevertheless I think a designated CT scan of the chest would be helpful to rule out pulmonary fibrosis versus poor effort during his testing. I will obtain a CT and reevaluate based on the results. Ordered: CT Chest w/o Contrast Follow-up With When Contact Information Caterina BROUSSARD, Nicolás Chavez, PUL, AYAH Within 6 months Additional Instructions: Problem List/Past Medical History Ongoing Bipolar I disorder, mild, current or most recent episode depressed, in full remission, with mixed features Bladder cancer BPH with obstruction/lower urinary tract symptoms CAD (coronary artery disease) Carotid artery stenos (more content not included)... Normal [facility] Comment on above: Result Comment: Elec tronically Signed By: Caterina BROUSSARD, Nicolás Chavez\.br\Date and Time Signed: 04/09/23 10:21 EST Insurance Correspondenceon 1 06-09-2022 Insurance Correspondence [id number]#1.00TIFF [facility] ONC - Otheron 04-09-2023 ONC - Other [id number]#1.00TIFF [facility] Outside Labson 04-09-2023 Outside Labs [id number]#1.00TIFF [facility] Outside Labs [id number]#1.00TIFF [facility] Physician Orderon 04-09-2023 Physician Order [id number]#1.00TIFF [facility] ECG 12 Leadon 04-04-2023 Significant artifact due to tremor, atrial pacemaker rhythm with diffuse nonspecific ST and T changes [facility] Work Phone: 36on 03-20-2023 36 Scheduled virtual follow up [facility] 36 Name of Caller: Eduard Burks Contact Reason for Appointment: Caller is needing to scheduel a 3 month follow up for her dad. Office Name: Senior Services Medication Refills need, if any: no Medication Name: no Normal [facility] Progress Noteon 03-20-2023 Progress Note Interval [...] Diet Healthy Nutrition for Older Adults - [facility] Injury Prevention/Home Safety [facility] Home Safety Checklist [facility] Mobility for Adults Falls Prevention Conversation Guide for Caregivers Medications Medication Safety/Dispensers Sleep Getting a Good Night's Sleep ([facility]) Sleep Hygiene Personal Care Personal Care Tips Bathing Tips Normal [facility] Progress Note [facility] [address] [address] Dept: [phone] Dept Loc: [phone] Visit type: [facility] Family Summary Conference Patient was seen today [...] that they are currently in the [facility]. If the patient is a minor, [...] loss x 3-4 years, previous dementia diagnosis, [place] 19 (MIS 10), CDT 5, PHQ 1. [...] by mouth (more content not included)... Normal [facility] Insurance Correspondenceon 1 Insurance Correspondence [id number]#1.00TIFF Normal [facility] CHEMISTRYOrdered By: SYSTEM SYSTEM on 03-02-2023 Albumin [...] 63 mL/min/1.73 m2 Normal >=59mL/min /1.73 m2 [facility] Comment on above: Interpretive Data: C hronic kidney disease could be indicated at eGFR's of less than 60 mL/min/1.73m2. Kidney failure is indicated at less than 15 mL/min/1.73m2. Globulin (S) [Mass/Vol] 3.9 g/dL Normal 1.4 - 4.0 gm/dL [facility] Glucose [Mass/Vol] 302 mg/dL High 55 - 199 mg/dL [facility] Comment on above: Interpretive Data: I f this glucose result represents a fasting glucose, interpretation should refer to the following reference range: 55-99 mg/dL Potassium [Moles/Vol] 4.6 mmol/L Normal 3.5 - 5.3 mmol/L [facility] Protein [Mass/Vol] 7.4 g/dL Normal 6.0 - 7.8 gm/dL [facility] Sodium [Moles/Vol] 139 mmol/L Normal 135 - 145 mmol/L [facility] TSH Qn 9.87 m[IU]/L High 0.34 - 5.60 mcIU/mL [facility] Urea nitrogen [Mass/Vol] 21 mg/dL Normal 5 - 21 mg/dL [facility] Urea nitrogen/Creatinine [Mass ratio] 18 mg/mg Normal 10 - 20 [facility] HEMATOLOGYOrdered By: Jane Rasmussen on 03-02-2023 Erythrocyte [...] Normal 4.0 - 11.0 E9/L [facility] HemeAutoSS Office Visiton 02-20-2023 Follow-up visit [id number] Daniel Chambers 1950 Date Provider Department Center 02/20/2023 KEISHA STOUT [facility] CS None No family history on file Level of Service:18171 SD OFFICE/OUTPATIENT NEW MODERATE MDM 45-59 MINUTES Reason for Visit and Comments: Memory Loss [66] Normal [facility] Progress Noteon 02-20-2023 Progress Note [facility] [address] [address] Dept: [phone] Dept Loc: [phone] Visit type: [facility] Initial Assessment Visit Date: 02/21/2023 Reason for [...] burden. Will discuss in more detail at [facility] with pt and family. Follow up in about 4 weeks (around 03/20/2023) for virtual summary visit. Subjective HPI: José Luis Faulkner is a 72 y.o. male who presents to the [facility] for a comprehensive geriatric assessment. The patient [...] (MSSA), CHF, urinary retention, previous LAWANDA, h/o ID, bladder cancer- stage 0, chronic diarrhea Pt [...] was referred to a stroke doctor in [place] but doesn't want to go history of head trauma- No, history of seizures- No, history of toxin exposures- No, history o (more content not included)... 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 Activities: rides Ribbitooter outside, visits grandson/family, watches tv/movies/sports, goes to car shows with cousin Exercise: none Finances: has adequate savings, gets Social Security income, [facility] Power of Copy Center Operator: Yes: spouse- Alicia, then daughter Zackary Financial Power of Copy Center Operator: Yes: spouse- Alicia, then daughter Zackary Living [...] Diet Healthy Nutrition for Older Adults - [facility] Injury Prevention/Home Safety [facility] Home Safety Checklist [facility] Mobility for Adults Falls Prevention Conversation Guide for Caregivers Medications Medication Safety/Dispensers Sleep Getting a Good Night's Sleep ([facility]) Sleep Hygiene Personal Care Personal Care Tips Bathing Tips Normal [address] 02-16-2023 36 Scheduled 02/20/2023. Normal [address] 02-15-2023 36 Name of Caller: Eduard burns Contact Reason for Appointment: New Patient Office Name: Senior Services Medication Refills need, if any: na Medication Name: Na Normal [facility] CHEMISTRYOrdered By: SYSTEM SYSTEM on 11-24-2022 Creatinine [Mass/Vol] 1.3 mg/dL Normal 0.5 - 1.3 mg/dL [facility] Remisol GFR/1.73 sq M.predicted among non-blacks MDRD (S/P/Bld) [Vol rate/Area] 58 mL/min/1.73 m2 Low >=59mL/min /1.73 m2 [facility] Chem S Urea nitrogen [Mass/Vol] 32 mg/dL High 5 - 21 mg/dL [facility] Remisol Office Visit (Neuro-Movement )on 11-20-2022 Follow-up visit Chief Complaint fuv Adult Risk Screening Initial Fall Risk Screening: NICOLAAS has fallen in the last 6 months. [...] 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) (I25.810) Class [...] DIRECTED. Pant (more content not included)... Normal [facility] Follow-up visit Provider Impressions Venkatesh Gil [...] appropriate E/M code for this encounter is /15485,. Diagnoses/Problems Assessed Transient neurological symptoms (781.99) (R29.818) Parkinsonism (332.0) (G20) Orders Parkinsonism Renew: Carbidopa-Levodopa 25-100 MG Oral Tablet; TAKE 1.5 TABLET 4 times daily Transient neurological symptoms Neurolo (more content not included)... Normal [facility] Office Visit (Cardiology)on 09-22-2022 Follow-up visit Diagnoses/Problems [...] 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) (I25.810) Class 1 obesity with body mass index (BMI) of 32.0 to 32.9 in adult (278.00,V85.32) (E66.9,Z68.32) Former smoker (V15.82) (Z87.891) QUIT 11/2001 Abnormal involuntary movements (781.0) (R25.9) Orders Class 1 obesity with body mass index (BMI) of 32.0 to 32.9 in adult Healthy Weight Tips; Status:Complete - Retrospective Authorization; Done: [id number] Some eating tips that can help you lose weight.; Status:Complete - Retrospective Authorization; Done: [id number] Diabetes mellitus, Ischemic cardiomyopathy Start: Jardiance 10 MG Oral Tablet; TAKE 1 TABLET BY MOUTH ONCE DAILY Hypertension, essential, benign Renew: amLODIPine Besylate 5 MG Oral Tablet; TAKE 1 TABLET BY MOUTH EVERY DAY Hypothyroidism, adult Renew: Levothyroxine Sodium 150 MCG Oral Capsule; TAKE 1 CAPSULE BY MOUTH EVERY MORNING BEFORE BREAKFAST ON EMPTY STOMACH SocHx: Former smoker Tobacco Use Screening; Status:Complete; Done: [id number] Ventricular tachycardia (paroxysmal) IO EKG Electrocardiogram- 12 Lead; Status:Complete; Done: [id number] Patient Instructions Please bring all medicines, vitamins, [...] 6-7 months Device check as directed per [facility] protocol Chief Complaint JOSÉ LUIS GIL is [...] medication with (more content not included)... Normal [facility] Tobacco Screening.on 023 Adult depression screening assessment No -[facility] 600 DO Work Phone: Fall risk assessment a) No falls within the last year [facility] domo 600 DO Work Phone: Tobacco use status CP b) No [facility] domo 600 DO Work Phone: DATSCAN INJECTIONon 08-31-19 DATSCAN INJECTION Patient Name: JOSÉ LUIS GIL STUDY: DATSCAN INJECTION; DATSCAN IOFLUPANE IODINE 123; 08/30/2022 2:43 pm INDICATION: right rest tremor, asymmetric rigidity and bradykinesia. on Abilify, parkinson's disease vs drug-induced parkinsonism G20: Parkinsonism. COMPARISON: None. ACCESSION NUMBER(S): [id number]; [id number] ORDERING CLINICIAN: FRANCISCO CLINTON TECHNIQUE: DIVISION OF [...] as stated. This study was interpreted at [facility], [place], [place]. Electronically signed by: MIRZA TRINH MD Normal [facility] No Panel Informationon 08-30 FINAL REPORT Interpreted by: MIRZA TRINH MD and LUCILA RODRIGUEZ MD 08/30/22 14:54 Patient Name: JOSÉ LUIS GIL STUDY: DATSCAN INJECTION; DATSCAN IOFLUPANE IODINE 123; 08/30/2022 2:43 pm INDICATION: right rest tremor, asy Normal [facility] [facility] Work Phone: Office Visit (Neuro-Movement [...] appropriate [place] [address] . Diagnoses/Problems Assessed Parkinsonism (332.0) (G20) Abnormal involuntary movements (781.0) (R25.9) RLS (restless legs syndrome) (333.94) (G25.81) Orders Atheroscle (more content not included)... Normal [facility] Activated partial thrombopla stin time (aPTT) in platelet poor plasma by coagulation aOrdered By: Andi Ware on 07-25-2022 aPTT Coag (PPP) [Time] 29.6 s 25.1-36.5 [facility] Glucose Glucometer (BldC) [M ass/Vol]Ordered By: Andi Ware on 07-25-2022 Glucose [Mass/Vol] 194 mg/dL [facility] Comment on above: Random Glucose Refer ence Range is dependent on time and content of last meal. Glucose of more than 200 mg/dL in a nonstressed, ambulatory subject supports the diagnosis of Diabetes Mellitus. Laboratory - CoagulationOrde red By: Andi Ware on 07-25-2022 PT Coag (PPP) [Time] 11.4 s 9.0-12.9 [facility] No Panel InformationOrdered By: Andi Ware on 07-25-2022 Bedside Glucose Comment Glu2: cleaned meter [facility] Platelet poor plasma interna tional normalized ratio (INR) by coagulation assay (relatOrdered By: Andi Ware on 07-25-2022 INR Coag (PPP) [Relative time] 1.0 {INR} [facility] Comment on above: INR Therapeutic Rang e [...] aPTT Coag (PPP) [Time] 34.3 s 25.1-36.5 [facility] Basophils Auto (Bld) [#/Vol] Ordered By: Andi Ware on 07-11-2022 Basophils (Bld) [#/Vol] 0.1 10*3/uL 0.0-0.2 [facility] Basophils/100 WBC Auto (Bld) Ordered By: Andi Ware on 07-11-2022 Basophils/100 WBC (Bld) 1.0 % . [facility] Creatinine and Glomerular fi ltration rate.predicted panel (S/P/Bld)Ordered By: Andi Ware on 07-11-2022 Creatinine [Mass/Vol] 1.55 mg/dL 0.64-1.27 [facility] Eosinophils Auto (Bld) [#/Vo l]Ordered By: Andi Ware on 07-11-2022 Eosinophils (Bld) [#/Vol] 0.2 10*3/uL 0.0-0.45 [facility] Eosinophils/100 WBC Auto (Bl d)Ordered By: Andi Ware on 07-11-2022 Eosinophils/100 WBC (Bld) 2.9 % . [facility] Erythrocyte distribution wid th Auto (RBC) [Ratio]Ordered By: Andi Ware on 07-11-2022 Erythrocyte distribution width (RBC) [Ratio] 16.3 % 12.0-14.8 [facility] Estimated glomerular filtrat ion rate (GFR) non- AmericanOrdered By: Andi Ware on 07-11-2022 GFR/1.73 sq M.predicted among non-blacks MDRD (S/P/Bld) [Vol rate/Area] 44 mL/Min [facility] Hematocrit Auto (Bld) [Volum e fraction]Ordered By: Andi Ware on 07-11-2022 Hematocrit (Bld) [Volume fraction] 32.9 % 38.8-50.0 [facility] Hemoglobin [Mass/volume] in BloodOrdered By: Andi Ware on 07-11-2022 Hemoglobin (Bld) [Mass/Vol] 10.8 g/dL 13.0-17.0 [facility] Laboratory - CoagulationOrde red By: Andi Ware on 07-11-2022 PT Coag (PPP) [Time] 14.1 s 9.0-12.9 [facility] Leukocytes [#/volume] correc [place] for nucleated erythrocytes in Blood by Automated counOrdered By: Andi Ware on 07-11-2022 WBC corrected for nucl RBC Auto (Bld) [#/Vol] 8.2 10*3/uL 4.1-10.5 [facility] Lymphocytes Auto (Bld) [#/Vo l]Ordered By: Andi Ware on 07-11-2022 Lymphocytes (Bld) [#/Vol] 1.6 10*3/uL 1.00-4.8 [facility] Lymphocytes/100 WBC Auto (Bl d)Ordered By: Andi Ware on 07-11-2022 Lymphocytes/100 WBC (Bld) 19.4 % . [facility] MCH Auto (RBC) [Entitic mass ]Ordered By: Andi Ware on 07-11-2022 MCH (RBC) [Entitic mass] 27.1 pg 27.5-35.2 [facility] MCHC Auto (RBC) [Mass/Vol]Or dered By: Andi Ware on 07-11-2022 MCHC (RBC) [Mass/Vol] 32.7 g/dL 32.5-35.6 [facility] MCV Auto (RBC) [Entitic vol] Ordered By: Andi Ware on 07-11-2022 MCV (RBC) [Entitic vol] 83.1 fL 83.5-101 [facility] Monocytes Auto (Bld) [#/Vol] Ordered By: Andi Ware on 07-11-2022 Monocytes (Bld) [#/Vol] 0.6 10*3/uL 0.0-0.8 [facility] Monocytes/100 WBC Auto (Bld) Ordered By: Andi Ware on 07-11-2022 Monocytes/100 WBC (Bld) 7.3 % . [facility] Neutrophils Auto (Bld) [#/Vo l]Ordered By: Andi Ware on 07-11-2022 Neutrophils (Bld) [#/Vol] 5.7 10*3/uL 1.8-7.7 [facility] Neutrophils/100 WBC Auto (Bl d)Ordered By: Andi Ware on 07-11-2022 Neutrophils/100 WBC (Bld) 69.4 % . [facility] No Panel InformationOrdered By: Andi Ware on 07-11-2022 Estimated GFR () 53 mL/Min [facility] Comment on above: GFR estimated refere nce range: According to KDOQI guidelines, <60 ml/min/1.73m2 is sufficient to diagnose a patient with chronic kidney disease. Pharmacy Creatinine Clearance (Chem N/A [facility] Nucleated erythrocytes [Pres ence] in Blood by Automated countOrdered By: Andi Ware on 07-11-2022 Nucleated RBC Auto Ql (Bld) 0.1 /100{WBC} 0-0.5 [facility] Platelet mean volume Auto (B ld) [Entitic vol]Ordered By: Andi Ware on 07-11-2022 Platelet mean volume (Bld) [Entitic vol] 6.9 fL 6.6-10.1 [facility] Platelet poor plasma interna tional normalized ratio (INR) by coagulation assay (relatOrdered By: Andi Ware on 07-11-2022 INR Coag (PPP) [Relative time] 1.2 {INR} [facility] Comment on above: INR Therapeutic Rang e [...] 07-11-2022 Platelets (Bld) [#/Vol] 286 10*3/uL 150-450 [facility] RBC Auto (Bld) [#/Vol]Ordere d By: Andi Ware on 07-11-2022 RBC (Bld) [#/Vol] 3.97 10*6/uL 3.90-5.60 [facility] Serum or plasma anion gap de terminationOrdered By: Andi Ware on 07-11-2022 Anion gap [Moles/Vol] 16.4 mmol/L 6.0-15.0 [facility] Serum or plasma calcium hakan urement (mass/volume)Ordered By: Andi Ware on 07-11-2022 Calcium [Mass/Vol] 9.0 mg/dL 8.2-10.2 [facility] Serum or plasma chloride akbar surement (moles/volume)Ordered By: Andi Ware on 07-11-2022 Chloride [Moles/Vol] 100 mmol/L 95-114 [facility] Serum or plasma glucose hakan urement (mass/volume)Ordered By: Andi Ware on 07-11-2022 Glucose [Mass/Vol] 176 mg/dL 70-100 [facility] Comment on above: ADA recommended refe rence rangeRandom Glucose Reference Range is dependent on time and content of last meal. Glucose of more than 200 mg/dL in a nonstressed, ambulatory subject supports the diagnosis of Diabetes Mellitus. Serum or plasma potassium me asurement (moles/volume)Ordered By: Andi Ware on 07-11-2022 Potassium [Moles/Vol] 4.6 mmol/L 3.5-5.1 [facility] Serum or plasma sodium measu rement (moles/volume)Ordered By: Andi Ware on 07-11-2022 Sodium [Moles/Vol] 136 mmol/L 136-146 [facility] Serum or plasma total carbon dioxide measurement (moles/volume)Ordered By: Andi Ware on 07-11-2022 CO2 [Moles/Vol] 24.2 mmol/L 22.0-30.0 [facility] Serum or plasma urea nitroge n measurement (mass/volume)Ordered By: Andi Ware on 07-11-2022 Urea nitrogen [Mass/Vol] 28 mg/dL 9-23 [facility] WBC Auto (Bld) [#/Vol]Ordere d By: Andi Ware on 07-11-2022 WBC (Bld) [#/Vol] 8.2 10*3/uL 4.1-10.5 [facility] Activated partial thrombopla stin time (aPTT) in platelet poor plasma by coagulation aOrdered By: Andi Ware on 05-23-2022 aPTT Coag (PPP) [Time] 29.9 s 25.1-36.5 [facility] Glucose Glucometer (BldC) [M ass/Vol]Ordered By: Andi Ware on 05-23-2022 Glucose [Mass/Vol] 200 mg/dL [facility] Comment on above: Random Glucose Refer ence Range is dependent on time and content of last meal. Glucose of more than 200 mg/dL in a nonstressed, ambulatory subject supports the diagnosis of Diabetes Mellitus. Laboratory - CoagulationOrde red By: Andi Ware on 05-23-2022 PT Coag (PPP) [Time] 12.8 s 9.0-12.9 [facility] No Panel InformationOrdered By: Andi Ware on 05-23-2022 Bedside Glucose Comment Glu2: cleaned meter [facility] Platelet poor plasma interna tional normalized ratio (INR) by coagulation assay (relatOrdered By: Andi Ware on 05-23-2022 INR Coag (PPP) [Relative time] 1.1 {INR} [facility] Comment on above: INR Therapeutic Rang e [...] 05-19-2022 Basophils (Bld) [#/Vol] 0.1 10*3/uL 0.0-0.2 [facility] Basophils/100 WBC Auto (Bld) Ordered By: Janusz Davidson on 05-19-2022 Basophils/100 WBC (Bld) 0.9 % . [facility] COVID-19 SOFIAOrdered By: Judi Ware on 05-19-2022 SARS-CoV+SARS-CoV-2 (COVID-19) Ag IA.rapid Ql (Resp) Negative Negative [facility] Comment on above: This is a duplicate Lelo SARS Antigen (SHAKIRA) result to be used for statistical tracking purpose only. Creatinine and Glomerular fi ltration rate.predicted panel (S/P/Bld)Ordered By: Janusz Davidson on 05-19-2022 Creatinine [Mass/Vol] 1.37 mg/dL 0.64-1.27 [facility] Eosinophils Auto (Bld) [#/Vo l]Ordered By: Janusz Davidson on 05-19-2022 Eosinophils (Bld) [#/Vol] 0.3 10*3/uL 0.0-0.45 [facility] Eosinophils/100 WBC Auto (Bl d)Ordered By: Janusz Davidson on 05-19-2022 Eosinophils/100 WBC (Bld) 3.8 % . [facility] Erythrocyte distribution wid th Auto (RBC) [Ratio]Ordered By: Janusz Davidson on 05-19-2022 Erythrocyte distribution width (RBC) [Ratio] 16.6 % 12.0-14.8 [facility] Estimated glomerular filtrat ion rate (GFR) non- AmericanOrdered By: Janusz Davidson on 05-19-2022 GFR/1.73 sq M.predicted among non-blacks MDRD (S/P/Bld) [Vol rate/Area] 51 mL/Min [facility] Hematocrit Auto (Bld) [Volum e fraction]Ordered By: Janusz Davidson on 05-19-2022 Hematocrit (Bld) [Volume fraction] 33.3 % 38.8-50.0 [facility] Hemoglobin [Mass/volume] in BloodOrdered By: Janusz Davidson on 05-19-2022 Hemoglobin (Bld) [Mass/Vol] 10.6 g/dL 13.0-17.0 [facility] Leukocytes [#/volume] correc [place] for nucleated erythrocytes in Blood by Automated counOrdered By: Janusz Davidson on 05-19-2022 WBC corrected for nucl RBC Auto (Bld) [#/Vol] 8.2 10*3/uL 4.1-10.5 [facility] Lymphocytes Auto (Bld) [#/Vo l]Ordered By: Janusz Davidson on 05-19-2022 Lymphocytes (Bld) [#/Vol] 1.3 10*3/uL 1.00-4.8 [facility] Lymphocytes/100 WBC Auto (Bl d)Ordered By: Janusz Davidson on 05-19-2022 Lymphocytes/100 WBC (Bld) 16.3 % . [facility] MCH Auto (RBC) [Entitic mass ]Ordered By: Janusz Davidson on 05-19-2022 MCH (RBC) [Entitic mass] 26.9 pg 27.5-35.2 [facility] MCHC Auto (RBC) [Mass/Vol]Or dered By: Janusz Davidson on 05-19-2022 MCHC (RBC) [Mass/Vol] 31.8 g/dL 32.5-35.6 [facility] MCV Auto (RBC) [Entitic vol] Ordered By: Janusz Davidson on 05-19-2022 MCV (RBC) [Entitic vol] 84.5 fL 83.5-101 [facility] Monocytes Auto (Bld) [#/Vol] Ordered By: Janusz Davidson on 05-19-2022 Monocytes (Bld) [#/Vol] 0.6 10*3/uL 0.0-0.8 [facility] Monocytes/100 WBC Auto (Bld) Ordered By: Janusz Davidson on 05-19-2022 Monocytes/100 WBC (Bld) 6.9 % . [facility] Neutrophils Auto (Bld) [#/Vo l]Ordered By: Janusz Davidson on 05-19-2022 Neutrophils (Bld) [#/Vol] 5.9 10*3/uL 1.8-7.7 [facility] Neutrophils/100 WBC Auto (Bl d)Ordered By: Janusz Davidson on 05-19-2022 Neutrophils/100 WBC (Bld) 72.1 % . [facility] No Panel InformationOrdered By: Janusz Davidson on 05-19-2022 Estimated GFR () > 60 mL/Min [facility] Comment on above: GFR estimated refere nce range: According to KDOQI guidelines, <60 ml/min/1.73m2 is sufficient to diagnose a patient with chronic kidney disease. Pharmacy Creatinine Clearance (Chem N/A [facility] No Panel InformationOrdered By: Andi Ware on 05-19-2022 SARS Antigen (LFIA) [facility] SARS Antigen (LFIA) [facility] Nucleated erythrocytes [Pres ence] in Blood by Automated countOrdered By: Janusz Davidson on 05-19-2022 Nucleated RBC Auto Ql (Bld) 0.1 /100{WBC} 0-0.5 [facility] Platelet mean volume Auto (B ld) [Entitic vol]Ordered By: Janusz Davidson on 05-19-2022 Platelet mean volume (Bld) [Entitic vol] 7.1 fL 6.6-10.1 [facility] Platelets Auto (Bld) [#/Vol] Ordered By: Janusz Davidson on 05-19-2022 Platelets (Bld) [#/Vol] 315 10*3/uL 150-450 [facility] RBC Auto (Bld) [#/Vol]Ordere d By: Janusz Davidson on 05-19-2022 RBC (Bld) [#/Vol] 3.94 10*6/uL 3.90-5.60 [facility] Serum or plasma anion gap de terminationOrdered By: Janusz Davidson on 05-19-2022 Anion gap [Moles/Vol] 13.5 mmol/L 6.0-15.0 [facility] Serum or plasma calcium hakan urement (mass/volume)Ordered By: Janusz Davidson on 05-19-2022 Calcium [Mass/Vol] 8.9 mg/dL 8.2-10.2 [facility] Serum or plasma chloride akbar surement (moles/volume)Ordered By: Janusz Davidson on 05-19-2022 Chloride [Moles/Vol] 100 mmol/L 95-114 [facility] Serum or plasma glucose hakan urement (mass/volume)Ordered By: Janusz Davidson on 05-19-2022 Glucose [Mass/Vol] 188 mg/dL 70-100 [facility] Comment on above: ADA recommended refe rence rangeRandom Glucose Reference Range is dependent on time and content of last meal. Glucose of more than 200 mg/dL in a nonstressed, ambulatory subject supports the diagnosis of Diabetes Mellitus. Serum or plasma potassium me asurement (moles/volume)Ordered By: Janusz Davidson on 05-19-2022 Potassium [Moles/Vol] 4.3 mmol/L 3.5-5.1 [facility] Serum or plasma sodium measu rement (moles/volume)Ordered By: Janusz Davidson on 05-19-2022 Sodium [Moles/Vol] 139 mmol/L 136-146 [facility] Serum or plasma total carbon dioxide measurement (moles/volume)Ordered By: Janusz Davidson on 05-19-2022 CO2 [Moles/Vol] 29.8 mmol/L 22.0-30.0 [facility] Serum or plasma urea nitroge n measurement (mass/volume)Ordered By: Janusz Davidson on 05-19-2022 Urea nitrogen [Mass/Vol] 21 mg/dL 02-24 [facility] WBC Auto (Bld) [#/Vol]Ordere d By: Janusz Davidson on 05-19-2022 WBC (Bld) [#/Vol] 8.2 10*3/uL 4.1-10.5 [facility] Basophils Auto (Bld) [#/Vol] Ordered By: Janusz Davidson on 05-14-2022 Basophils (Bld) [#/Vol] 0.1 10*3/uL 0.0-0.2 [facility] Basophils/100 WBC Auto (Bld) Ordered By: Janusz Davidson on 05-14-2022 Basophils/100 WBC (Bld) 1.1 % . [facility] Creatinine and Glomerular fi ltration rate.predicted panel (S/P/Bld)Ordered By: Janusz Davidson on 05-14-2022 Creatinine [Mass/Vol] 1.27 mg/dL 0.64-1.27 [facility] Eosinophils Auto (Bld) [#/Vo l]Ordered By: Janusz Davidson on 05-14-2022 Eosinophils (Bld) [#/Vol] 0.2 10*3/uL 0.0-0.45 [facility] Eosinophils/100 WBC Auto (Bl d)Ordered By: Janusz Davidson on 05-14-2022 Eosinophils/100 WBC (Bld) 2.5 % . [facility] Erythrocyte distribution wid th Auto (RBC) [Ratio]Ordered By: Janusz Davidson on 05-14-2022 Erythrocyte distribution width (RBC) [Ratio] 15.7 % 12.0-14.8 [facility] Estimated glomerular filtrat ion rate (GFR) non- AmericanOrdered By: Janusz Davidson on 05-14-2022 GFR/1.73 sq M.predicted among non-blacks MDRD (S/P/Bld) [Vol rate/Area] 56 mL/Min [facility] Glucose Glucometer (BldC) [M ass/Vol]Ordered By: Janusz Davidson on 05-14-2022 Glucose [Mass/Vol] 226 mg/dL [facility] Comment on above: Random Glucose Refer ence Range is dependent on time and content of last meal. Glucose of more than 200 mg/dL in a nonstressed, ambulatory subject supports the diagnosis of Diabetes Mellitus. Hematocrit Auto (Bld) [Volum e fraction]Ordered By: Janusz Davidson on 05-14-2022 Hematocrit (Bld) [Volume fraction] 26.8 % 38.8-50.0 [facility] Hemoglobin [Mass/volume] in BloodOrdered By: Janusz Davidson on 05-14-2022 Hemoglobin (Bld) [Mass/Vol] 8.8 g/dL 13.0-17.0 [facility] Leukocytes [#/volume] correc [place] for nucleated erythrocytes in Blood by Automated counOrdered By: Janusz Davidson on 05-14-2022 WBC corrected for nucl RBC Auto (Bld) [#/Vol] 6.6 10*3/uL 4.1-10.5 [facility] Lymphocytes Auto (Bld) [#/Vo l]Ordered By: Janusz Davidson on 05-14-2022 Lymphocytes (Bld) [#/Vol] 1.2 10*3/uL 1.00-4.8 [facility] Lymphocytes/100 WBC Auto (Bl d)Ordered By: Janusz Davidson on 05-14-2022 Lymphocytes/100 WBC (Bld) 18.1 % . [facility] MCH Auto (RBC) [Entitic mass ]Ordered By: Janusz Davidson on 05-14-2022 MCH (RBC) [Entitic mass] 27.5 pg 27.5-35.2 [facility] MCHC Auto (RBC) [Mass/Vol]Or dered By: Janusz Davidson on 05-14-2022 MCHC (RBC) [Mass/Vol] 32.9 g/dL 32.5-35.6 [facility] MCV Auto (RBC) [Entitic vol] Ordered By: Janusz Davidson on 05-14-2022 MCV (RBC) [Entitic vol] 83.5 fL 83.5-101 [facility] Monocytes Auto (Bld) [#/Vol] Ordered By: Janusz Davidson on 05-14-2022 Monocytes (Bld) [#/Vol] 0.5 10*3/uL 0.0-0.8 [facility] Monocytes/100 WBC Auto (Bld) Ordered By: Janusz Davidson on 05-14-2022 Monocytes/100 WBC (Bld) 7.4 % . [facility] Neutrophils Auto (Bld) [#/Vo l]Ordered By: Janusz Davdison on 05-14-2022 Neutrophils (Bld) [#/Vol] 4.7 10*3/uL 1.8-7.7 [facility] Neutrophils/100 WBC Auto (Bl d)Ordered By: Janusz Davidson on 05-14-2022 Neutrophils/100 WBC (Bld) 70.9 % . [facility] No Panel InformationOrdered By: Janusz Davidson on 05-14-2022 Bedside Glucose Comment Glu2: cleaned meter [facility] Estimated GFR () > 60 mL/Min [facility] Comment on above: GFR estimated refere nce range: According to KDOQI guidelines, <60 ml/min/1.73m2 is sufficient to diagnose a patient with chronic kidney disease. Pharmacy Creatinine Clearance (Chem 66.09 [facility] Nucleated erythrocytes [Pres ence] in Blood by Automated countOrdered By: Janusz Davidson on 05-14-2022 Nucleated RBC Auto Ql (Bld) 0.1 /100{WBC} 0-0.5 [facility] Platelet mean volume Auto (B ld) [Entitic vol]Ordered By: Janusz Davidson on 05-14-2022 Platelet mean volume (Bld) [Entitic vol] 6.9 fL 6.6-10.1 [facility] Platelets Auto (Bld) [#/Vol] Ordered By: Janusz Davidson on 05-14-2022 Platelets (Bld) [#/Vol] 230 10*3/uL 150-450 [facility] RBC Auto (Bld) [#/Vol]Ordere d By: Janusz Davidson on 05-14-2022 RBC (Bld) [#/Vol] 3.20 10*6/uL 3.90-5.60 [facility] Serum or plasma anion gap de terminationOrdered By: Janusz Davidson on 05-14-2022 Anion gap [Moles/Vol] 11.0 mmol/L 6.0-15.0 [facility] Serum or plasma calcium hakan urement (mass/volume)Ordered By: Janusz Davidson on 05-14-2022 Calcium [Mass/Vol] 8.3 mg/dL 8.2-10.2 [facility] Serum or plasma chloride akbar surement (moles/volume)Ordered By: Janusz Davidson on 05-14-2022 Chloride [Moles/Vol] 100 mmol/L 95-114 [facility] Serum or plasma glucose hakan urement (mass/volume)Ordered By: Janusz Davidson on 05-14-2022 Glucose [Mass/Vol] 161 mg/dL 70-100 [facility] Comment on above: ADA recommended refe rence rangeRandom Glucose Reference Range is dependent on time and content of last meal. Glucose of more than 200 mg/dL in a nonstressed, ambulatory subject supports the diagnosis of Diabetes Mellitus. Serum or plasma potassium me asurement (moles/volume)Ordered By: Janusz Davidson on 05-14-2022 Potassium [Moles/Vol] 3.9 mmol/L 3.5-5.1 [facility] Serum or plasma sodium measu rement (moles/volume)Ordered By: Janusz Davidson on 05-14-2022 Sodium [Moles/Vol] 136 mmol/L 136-146 [facility] Serum or plasma total carbon dioxide measurement (moles/volume)Ordered By: Janusz Davidson on 05-14-2022 CO2 [Moles/Vol] 28.9 mmol/L 22.0-30.0 [facility] Serum or plasma urea nitroge n measurement (mass/volume)Ordered By: Janusz Davidson on 05-14-2022 Urea nitrogen [Mass/Vol] 18 mg/dL 9- [facility] WBC Auto (Bld) [#/Vol]Ordere d By: Janusz Davidson on 05-14-2022 WBC (Bld) [#/Vol] 6.6 10*3/uL 4.1-10.5 [facility] Activated partial thrombopla stin time (aPTT) in platelet poor plasma by coagulation aOrdered By: Janusz Reed on 05-12-2022 aPTT Coag (PPP) [Time] 37.3 s 25.1-36.5 [facility] Basophils Auto (Bld) [#/Vol] Ordered By: Janusz Reed on 05-12-2022 Basophils (Bld) [#/Vol] 0.1 10*3/uL 0.0-0.2 [facility] Basophils/100 WBC Auto (Bld) Ordered By: Janusz Reed on 05-12-2022 Basophils/100 WBC (Bld) 1.0 % . [facility] Body fluid albumin measureme nt (mass/volume)Ordered By: Janusz Reed on 05-12-2022 Albumin (Body fld) [Mass/Vol] 3.7 g/dL 3.2-5.5 [facility] Creatinine and Glomerular fi ltration rate.predicted panel (S/P/Bld)Ordered By: Janusz Reed on 05-12-2022 Creatinine [Mass/Vol] 1.31 mg/dL 0.64-1.27 [facility] Eosinophils Auto (Bld) [#/Vo l]Ordered By: Janusz Reed on 05-12-2022 Eosinophils (Bld) [#/Vol] 0.2 10*3/uL 0.0-0.45 [facility] Eosinophils/100 WBC Auto (Bl d)Ordered By: Janusz Reed on 05-12-2022 Eosinophils/100 WBC (Bld) 2.4 % . [facility] Erythrocyte distribution wid th Auto (RBC) [Ratio]Ordered By: Janusz Reed on 05-12-2022 Erythrocyte distribution width (RBC) [Ratio] 15.9 % 12.0-14.8 [facility] Estimated glomerular filtrat ion rate (GFR) non- AmericanOrdered By: Janusz Reed on 05-12-2022 GFR/1.73 sq M.predicted among non-blacks MDRD (S/P/Bld) [Vol rate/Area] 54 mL/Min [facility] Globulin Calc (S) [Mass/Vol] Ordered By: Janusz Reed on 05-12-2022 Globulin (S) [Mass/Vol] 3.6 g/dL [facility] Hematocrit Auto (Bld) [Volum e fraction]Ordered By: Janusz Reed on 05-12-2022 Hematocrit (Bld) [Volume fraction] 29.3 % 38.8-50.0 [facility] Hemoglobin [Mass/volume] in BloodOrdered By: Janusz Reed on 05-12-2022 Hemoglobin (Bld) [Mass/Vol] 9.4 g/dL 13.0-17.0 [facility] Laboratory - Chemistry and C hemistry - challengeOrdered By: Janusz Davidson on 05-12-2022 Natriuretic peptide B (Bld) [Mass/Vol] 177.0 pg/mL 5-100 [facility] Laboratory - CoagulationOrde red By: Janusz Reed on 05-12-2022 PT Coag (PPP) [Time] 19.4 s 9.0-12.9 [facility] Leukocytes [#/volume] correc [place] for nucleated erythrocytes in Blood by Automated counOrdered By: Janusz Reed on 05-12-2022 WBC corrected for nucl RBC Auto (Bld) [#/Vol] 8.0 10*3/uL 4.1-10.5 [facility] Lymphocytes Auto (Bld) [#/Vo l]Ordered By: Janusz Reed on 05-12-2022 Lymphocytes (Bld) [#/Vol] 1.2 10*3/uL 1.00-4.8 [facility] Lymphocytes/100 WBC Auto (Bl d)Ordered By: Janusz Reed on 05-12-2022 Lymphocytes/100 WBC (Bld) 15.3 % . [facility] MCH Auto (RBC) [Entitic mass ]Ordered By: Janusz Reed on 05-12-2022 MCH (RBC) [Entitic mass] 27.2 pg 27.5-35.2 [facility] MCHC Auto (RBC) [Mass/Vol]Or dered By: Janusz Reed on 05-12-2022 MCHC (RBC) [Mass/Vol] 32.1 g/dL 32.5-35.6 [facility] MCV Auto (RBC) [Entitic vol] Ordered By: Janusz Reed on 05-12-2022 MCV (RBC) [Entitic vol] 84.9 fL 83.5-101 [facility] Monocyte distribution width [Entitic volume] in Blood by AutomatedOrdered By: Janusz Reed on 05-12-2022 Monocyte distribution width Auto (Bld) [Entitic vol] 17.98 % 0.00-20.00 [facility] Monocytes Auto (Bld) [#/Vol] Ordered By: Janusz Reed on 05-12-2022 Monocytes (Bld) [#/Vol] 0.4 10*3/uL 0.0-0.8 [facility] Monocytes/100 WBC Auto (Bld) Ordered By: Janusz Reed on 05-12-2022 Monocytes/100 WBC (Bld) 5.6 % . [facility] Neutrophils Auto (Bld) [#/Vo l]Ordered By: Janusz Reed on 05-12-2022 Neutrophils (Bld) [#/Vol] 6.1 10*3/uL 1.8-7.7 [facility] Neutrophils/100 WBC Auto (Bl d)Ordered By: Janusz Reed on 05-12-2022 Neutrophils/100 WBC (Bld) 75.7 % . [facility] No Panel InformationOrdered By: Janusz Reed on 05-12-2022 Estimated GFR () > 60 mL/Min [facility] Comment on above: GFR estimated refere nce range: According to KDOQI guidelines, <60 ml/min/1.73m2 is sufficient to diagnose a patient with chronic kidney disease. Pharmacy Creatinine Clearance (Chem 59.78 [facility] Nucleated erythrocytes [Pres ence] in Blood by Automated countOrdered By: Janusz Reed on 05-12-2022 Nucleated RBC Auto Ql (Bld) 0.0 /100{WBC} 0-0.5 [facility] Platelet mean volume Auto (B ld) [Entitic vol]Ordered By: Janusz Reed on 05-12-2022 Platelet mean volume (Bld) [Entitic vol] 7.2 fL 6.6-10.1 [facility] Platelet poor plasma interna tional normalized ratio (INR) by coagulation assay (relatOrdered By: Janusz Reed on 05-12-2022 INR Coag (PPP) [Relative time] 1.7 {INR} [facility] Comment on above: INR Therapeutic Rang e [...] 05-12-2022 Platelets (Bld) [#/Vol] 264 10*3/uL 150-450 [facility] Protein [Mass/volume] in Ser um or PlasmaOrdered By: Janusz Reed on 05-12-2022 Protein [Mass/Vol] 7.3 g/dL 6.1-7.9 [facility] RBC Auto (Bld) [#/Vol]Ordere d By: Janusz Reed on 05-12-2022 RBC (Bld) [#/Vol] 3.46 10*6/uL 3.90-5.60 [facility] Serum or plasma alanine del valle otransferase measurement without P-5'-P (enzymatic activiOrdered By: Janusz Reed on 05-12-2022 ALT No additional P-5'-P [Catalytic activity/Vol] 24 U/L 10-60 [facility] Serum or plasma albumin/glob ulin mass ratioOrdered By: Janusz Reed on 05-12-2022 Albumin/Globulin [Mass ratio] 1.0 {ratio} [facility] Serum or plasma alkaline lula sphatase measurement (enzymatic activity/volume)Ordered By: Janusz Reed on 05-12-2022 ALP [Catalytic activity/Vol] 79 U/L 32-92 [facility] Serum or plasma anion gap de terminationOrdered By: Janusz Reed on 05-12-2022 Anion gap [Moles/Vol] 17.7 mmol/L 6.0-15.0 [facility] Serum or plasma aspartate am inotransferase measurement (enzymatic activity/volume)Ordered By: Janusz Reed on 05-12-2022 AST [Catalytic activity/Vol] 22 U/L 10-42 [facility] Serum or plasma calcium hakan urement (mass/volume)Ordered By: Janusz Reed on 05-12-2022 Calcium [Mass/Vol] 8.9 mg/dL 8.2-10.2 [facility] Serum or plasma chloride akbar surement (moles/volume)Ordered By: Janusz Reed on 05-12-2022 Chloride [Moles/Vol] 100 mmol/L 95-114 [facility] Serum or plasma glucose hakan urement (mass/volume)Ordered By: Janusz Reed on 05-12-2022 Glucose [Mass/Vol] 174 mg/dL 70-100 [facility] Comment on above: ADA recommended refe rence rangeRandom Glucose Reference Range is dependent on time and content of last meal. Glucose of more than 200 mg/dL in a nonstressed, ambulatory subject supports the diagnosis of Diabetes Mellitus. Serum or plasma potassium me asurement (moles/volume)Ordered By: Janusz Reed on 05-12-2022 Potassium [Moles/Vol] 4.3 mmol/L 3.5-5.1 [facility] Serum or plasma sodium measu rement (moles/volume)Ordered By: Janusz Reed on 05-12-2022 Sodium [Moles/Vol] 138 mmol/L 136-146 [facility] Serum or plasma total biliru bin measurement (mass/volume)Ordered By: Janusz Reed on 05-12-2022 Bilirubin [Mass/Vol] 0.8 mg/dL 0.3-1.2 [facility] Serum or plasma total carbon dioxide measurement (moles/volume)Ordered By: Janusz Reed on 05-12-2022 CO2 [Moles/Vol] 24.6 mmol/L 22.0-30.0 [facility] Serum or plasma urea nitroge n measurement (mass/volume)Ordered By: Janusz Reed on 05-12-2022 Urea nitrogen [Mass/Vol] 20 mg/dL 9-23 [facility] WBC Auto (Bld) [#/Vol]Ordere d By: Janusz Reed on 05-12-2022 WBC (Bld) [#/Vol] 8.0 10*3/uL 4.1-10.5 [facility] Office Visit (Cardiology)on 03-15-2022 Follow-up visit Diagnoses/Problems Assessed Stage 3b chronic kidney disease (585.3) (N18.32) 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) (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) Hypertension, [...] 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, Hypertension, essential, benign, Ischemic cardiomyopathy Renew: Enalapril Maleate 10 MG Oral Tablet; Take 1 tablet twice daily 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, Paroxysmal atrial fibrillation Renew: Carvedilol 25 MG Oral Tablet; TAKE 1 TABLET TWICE DAILY Class 1 obesity with body mass index (BMI) of 33.0 to 33.9 in adult Healthy Weight Tips; Status:Complete; Done: [id number] Some eating tips that can help you lose weight.; Status:Complete; Done: [id number] Hypertension, essential, benign Renew: amLODIPine Besylate 5 MG Oral Tablet; TAKE 1 TABLET BY MOUTH EVERY DAY Paroxysmal atrial fibrillation Renew: Eliquis 5 MG Oral Tablet; TAKE ONE TABLET TWO TIMES DAILY IO EKG Electrocardiogram- 12 Lead; Status:Complete; Done: [id number] Patient Instructions Please bring all medicines, vitamins, [...] arthrodesis Histor (more content not included)... Normal [facility] Tobacco Screening.on 022 Fall risk assessment a) No falls within the last year [facility] [place] lk 600 DO Work Phone: Tobacco use status CP b) No [facility] lk 600 DO Work Phone: CHEMISTRYOrdered By: Lab ROP User on 02-10-2022 Glucose [Mass/Vol] 89 mg/dL Normal 55 - 99 mg/dL [facility] POC Subsection Comment on above: Result Comment: Kennedy espitia RN/ POC Device SN [id number] Invalid Interpretation Code [facility] POC Subsection POC User ID [id number] Invalid Interpretation Code [facility] POC Subsection POC Username MEDINA MOLINA Invalid Interpretation Code [facility] POC Subsection Glucose [Mass/Vol] 130 mg/dL High 55 - 99 mg/dL [facility] POC Subsection Comment on above: Result Comment: Kennedy espitia RN/ POC Device SN [id number] Invalid Interpretation Code [facility] POC Subsection POC User ID [id number] Invalid Interpretation Code [facility] POC Subsection POC Username MEDINA MOLINA Invalid Interpretation Code [facility] POC Subsection Glucose [Mass/Vol] 113 mg/dL High 55 - 99 mg/dL [facility] POC Subsection Comment on above: Result Comment: Kennedy espitia RN/ POC Device SN [id number] Invalid Interpretation Code [facility] POC Subsection POC User ID [id number] Invalid Interpretation Code [facility] POC Subsection POC Username MEDINA MOLINA Invalid Interpretation Code [facility] POC Subsection CHEMISTRYOrdered By: SYSTEM SYSTEM on [...] 1.2 mg/dL Normal 0.5 - 1.3 mg/dL [facility] Remisol GFR/1.73 sq M.predicted among blacks MDRD (S/P/Bld) [Vol rate/Area] mL/min/1.73 m2 Normal >=59mL/min /1.73 m2 [facility] Chem S GFR/1.73 sq M.predicted among non-blacks MDRD (S/P/Bld) [Vol rate/Area] 59 mL/min/1.73 m2 Normal >=59mL/min /1.73 m2 [facility] Chem S Glucose [Mass/Vol] 70 mg/dL Normal [...] mg/mg Normal 10 - 20 [facility] CHEMISTRYOrdered By: SYSTEM SYSTEM on 02-09-2022 CK [Catalytic activity/Vol] 35 [iU]/d Normal 14 - 261 Int._Unit/ L [facility] CRP [Mass/Vol] 0.9 mg/dL Normal <=1.9mg/dL [facility] Cholesterol [Mass/Vol] 92 mg/dL Low 120 [...] Result Comment: Perf ormed at: CB [facility] [address] [id number] PhD Erick Nielsen CHEMISTRYOrdered By: SYSTEM SYSTEM [...] 52 mL/min/1.73 m2 Low >=59mL/min /1.73 m2 [facility] Chem S GFR/1.73 sq M.predicted among non-blacks MDRD (S/P/Bld) [Vol rate/Area] 43 mL/min/1.73 m2 Low >=59mL/min /1.73 m2 [facility] Chem S Globulin (S) [Mass/Vol] 3.8 g/dL Normal 1.4 - 4.0 gm/dL [facility] Glucose [Mass/Vol] 210 mg/dL High 55 - 199 mg/dL [facility] Lactate [Mass/Vol] 2.9 mmol/L High 0.5 - 2.2 mmol/L [facility] Potassium [Moles/Vol] 4.7 mmol/L Normal 3.5 - 5.3 mmol/L [facility] Protein [Mass/Vol] 7.2 g/dL Normal 6.0 [...] PM) Normal Negative [facility] UA Auto SS [place].plasma/[place] .RBC (Bld) [Mass ratio] 0-3 /HPF Normal 0-3/HPF [facility] UA Auto SS Nitrite Ql (U) Negative (02/08/22 9:15 PM) Normal Negative [facility] UA Auto SS pH (U) 5.0 *NA* (02/08/22 9:15 PM) Invalid Interpretation Code 5.0 - 9.0 [facility] UA Auto SS Protein (U) [Mass/Vol] Negative (02/08/22 9:15 PM) Normal Negative [facility] UA Auto SS Specific gravity (U) [Rel density] >=1.030 *NA* (02/08/22 9:15 PM) Invalid Interpretation Code 1.005 - 1.030 [facility] UA Auto SS UA Spec Desc Suazo (02/08/22 9:15 PM) Normal [facility] UA Auto SS Urobilinogen Qn (U) 0.9935167 {Gabby'U}/dL Normal 0.0 - 1.0 EU/dL [facility]A Auto SS WBC Auto Ql (U) Negative (02/08/22 9:15 PM) Normal Negative [facility] Auto SS WBC LM.HPF (Urine sed) [#/Area] 0-5 /HPF Normal 0-5/HPF [facility] UA Auto SS CHEMISTRYOrdered By: SYSTEM SYSTEM on 02-02-2022 Anion gap [Moles/Vol] 14 mmol/L Normal 6 - 16 mEq/L [facility] Remisol Calcium [Mass/Vol] 8.5 mg/dL Low 8.9 [...] /1.73 m2 [facility] Chem S Glucose [Mass/Vol] 225 mg/dL High 55 - 199 mg/dL [facility] Rem[facility] Potassium [Moles/Vol] 4.8 mmol/L Normal 3.5 - 5.3 mmol/L [facility] Sodium [Moles/Vol] 136 mmol/L Normal 135 - 145 mmol/L [facility] Rem[facility] Troponin I.cardiac [Mass/Vol] 16.20 pg/mL Normal 15.90 - 38.40 pg/mL [facility] Urea nitrogen [Mass/Vol] 33 mg/dL High 5 - 21 mg/dL [facility] Remisol Urea nitrogen/Creatinine [Mass ratio] 21 mg/mg High 10 - 20 [facility] Remisol CHEMISTRYOrdered By: Radha Vera on 02-02-2022 Natriuretic peptide B (Bld) [Mass/Vol] 125 pg/mL High 5 - 80 pg/mL FT HemeManSS HEMATOLOGYOrdered By: Netviewer SYSTEM on 02-02-2022 Basophils/100 WBC (Bld) 0.3 [...] PM) Normal Negative [facility] UA Auto SS [place].plasma/[place] .RBC (Bld) [Mass ratio] 0-3 /HPF Normal [...] [facility] UA Auto SS Urobilinogen Qn (U) 0.7363652 {Gabby'U}/dL Normal 0.0 - 1.0 EU/dL [facility] [...] 37 mL/min/1.73 m2 Low >=59mL/min /1.73 m2 [facility] Chem S Glucose [Mass/Vol] 130 mg/dL Normal [...] 33 mL/min/1.73 m2 Low >=59mL/min /1.73 m2 [facility] Chem S Glucose [Mass/Vol] 297 mg/dL High 55 - 199 mg/dL [facility] Potassium [Moles/Vol] 6.2 mmol/L Invalid Interpretation [...] 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 Follow with pcp /psych Status: Complete - Retrospective Authorization Done: [id number] Paroxysmal atrial fibrillation IO EKG Electrocardiogram- 12 Lead; Status:Complete; Done: [id number] SocHx: Former smoker Tobacco Use Screening; Status:Complete; Done: [id number] Patient Instructions By signing my name below, IMaria Del Carmen Lpn, Scribe, attest that this documentation has [...] continue Eliquis (more content not included)... Normal [facility] Tobacco Screening.on 022 Adult depression screening assessment [facility] Miley oliveros [address] DO Work Phone: Fall risk assessment b) One or more fall s in the last year [facility] Miley oliveros 600 DO Work Phone: Tobacco use status CPHS b) No [facility] Miley oliveros 600 DO Work Phone: Tobacco Screening. 1-Several days [facility] Miley oliveros 600 DO Work Phone: Tobacco Screening. 0-Not at all [facility] Miley oliveros 600 DO Work Phone: Tobacco Screening. 3-Nearly every day [facility] Miley oliveros 600 DO Work Phone: Tobacco Screening. Somewhat Difficult [facility] Miley oliveros 600 DO Work Phone: CHEMISTRYOrdered By: SYSTEM SYSTEM on 12-06-2021 Anion gap [Moles/Vol] 17 mmol/L High 6 - 16 mEq/L [facility] Calcium [Mass/Vol] 8.8 mg/dL Low 8.9 - 11. 1 mg/dL [facility] Chloride [Moles/Vol] 100 mmol/L Low 101 - 1 11 mmol/L [facility] CO2 [Moles/Vol] 26 mmol/L Normal 21 - 31 mmol/L FT [...] 43 mL/min/1.73 m2 Low >=59mL/min /1.73 m2 [facility] Chem S Glucose [Mass/Vol] 173 mg/dL Normal 55 - 199 mg/dL [facility] Remisol Potassium [Moles/Vol] 4.7 mmol/L Normal 3.5 - 5.3 mmol/L [facility] Sodium [Moles/Vol] 138 mmol/L Normal 135 - 145 mmol/L [facility] Triglyceride [Mass/Vol] 235 mg/dL High <=149mg/dL [facility] TSH Qn 38.68 m[IU]/L High 0.34 - 5.60 mcIU/mL [facility] Urea nitrogen [Mass/Vol] 24 mg/dL High 5 - 21 mg/dL [facility] Urea nitrogen/Creatinine [Mass ratio] 15 mg/mg Normal 10 - 20 [facility] CHEMISTRYOrdered By: Lab ROP User on 10-19-2021 Glucose [Mass/Vol] 269 mg/dL High 55 - 99 mg/dL [facility] POC Subsection Comment on above: Result Comment: Chela nohemi Meter POC Device SN [id number] Invalid Interpretation Code [facility] POC Subsection POC User ID [id number] Invalid Interpretation Code [facility] POC Subsection POC Username HOMA MCCLELLAND Invalid Interpretation Code [facility] POC Subsection Glucose [Mass/Vol] 192 mg/dL High 55 - 99 mg/dL [facility] POC Subsection Comment on above: Result Comment: Chela nohemi Meter POC Device SN [id number] Invalid Interpretation Code [facility] POC Subsection POC User ID [id number] Invalid Interpretation Code [facility] POC Subsection POC Username HOMA MCCLELLAND Invalid Interpretation Code [facility] POC Subsection CHEMISTRYOrdered By: Lab GUILLERMO User on 10-18-2021 Glucose [Mass/Vol] 224 mg/dL High 55 - 99 mg/dL FT POC Subsection POC Device SN [id number] Invalid Interpretation Code FT POC Subsection POC User ID [id number] Invalid Interpretation Code [facility] POC Subsection POC Username RAY JEAN Invalid Interpretation Code [facility] POC Subsection CHEMISTRYOrdered By: SYSTEM SYSTEM on 10-16-2021 Anion gap [Moles/Vol] 12 mmol/L Normal 6 - 16 mEq/L [facility] Calcium [Mass/Vol] 8.8 mg/dL Low 8.9 - 11. 1 mg/dL [facility] Chloride [Moles/Vol] 103 mmol/L Normal 101 - 1 11 mmol/L [facility] CO2 [Moles/Vol] 27 mmol/L Normal 21 - 31 mmol/L [facility] Creatinine [Mass/Vol] 1.1 mg/dL Normal 0.5 - 1.3 mg/dL [facility] GFR/1.73 sq M.predicted among blacks MDRD (S/P/Bld) [Vol rate/Area] mL/min/1.73 m2 Normal >=59mL/min /1.73 m2 [facility] Chem S GFR/1.73 sq M.predicted among non-blacks MDRD (S/P/Bld) [Vol rate/Area] mL/min/1.73 m2 Normal >=59mL/min /1.73 m2 [facility] Chem S Glucose [Mass/Vol] 214 mg/dL High 55 - 199 mg/dL [facility] Potassium [Moles/Vol] 4.5 mmol/L Normal 3.5 - 5.3 mmol/L [facility] Sodium [Moles/Vol] 137 mmol/L Normal 135 - 145 mmol/L [facility] Urea nitrogen [Mass/Vol] 21 mg/dL Normal 5 - 21 mg/dL [facility] Urea nitrogen/Creatinine [Mass ratio] 19 mg/mg Normal 10 - 20 [facility] Remisol CHEMISTRYOrdered By: SYSTEM SYSTEM on 10-14-2021 Anion gap [Moles/Vol] 17 mmol/L High 6 - 16 mEq/L [facility] Calcium [Mass/Vol] 8.6 mg/dL Low 8.9 - 11. 1 mg/dL [facility] Chloride [Moles/Vol] 105 mmol/L Normal 101 - 1 11 mmol/L [facility] CO2 [Moles/Vol] 24 mmol/L Normal 21 - 31 mmol/L [facility] Creatinine [Mass/Vol] 1.5 mg/dL High 0.5 - 1.3 mg/dL [facility] GFR/1.73 sq M.predicted among blacks MDRD (S/P/Bld) [Vol rate/Area] 56 mL/min/1.73 m2 Low >=59mL/min /1.73 m2 [facility] Chem S GFR/1.73 sq M.predicted among non-blacks MDRD (S/P/Bld) [Vol rate/Area] 46 mL/min/1.73 m2 Low >=59mL/min /1.73 m2 [facility] Chem S Glucose [Mass/Vol] 125 mg/dL Normal [...] ratio] 22 mg/mg High 10 - 20 [facility] HEMATOLOGYOrdered By: SYSTEM SYSTEM on 10-14-2021 [...] - 11.0 E9/L [facility] HemeAutoSS CHEMISTRYOrdered By: Lab ROP User on 10-13-2021 Glucose [Mass/Vol] 194 mg/dL High 55 - 99 mg/dL [facility] POC Subsection Comment on above: Result Comment: Kennedy SULLIVAN POC Device SN [id number] Invalid Interpretation Code [facility] POC Subsection POC User ID [id number] Invalid Interpretation Code [facility] POC Subsection POC Username Estelita Hernandez Invalid Interpretation Code [facility] POC Subsection Glucose [Mass/Vol] 170 mg/dL High 55 - 99 mg/dL [facility] POC Subsection Comment on above: Result Comment: Kennedy SULLIVAN POC Device SN [id number] Invalid Interpretation Code [facility] POC Subsection POC User ID [id number] Invalid Interpretation Code [facility] POC Subsection POC Username Estelita Hernandez Invalid Interpretation Code [facility] POC Subsection CHEMISTRYOrdered By: Lab ROP User on 10-12-2021 Glucose [Mass/Vol] 249 mg/dL High 55 - 99 mg/dL [facility] POC Subsection Comment on above: Result Comment: Kennedy espitia RN/ POC Device SN [id number] Invalid Interpretation Code [facility] POC Subsection POC User ID [id number] Invalid Interpretation Code [facility] POC Subsection POC Username KULDEEP HERNANDEZ Invalid Interpretation Code [facility] POC Subsection CHEMISTRYOrdered By: SYSTEM SYSTEM on [...] 1.1 mg/dL Normal 0.5 - 1.3 mg/dL [facility] Remisol GFR/1.73 sq M.predicted among blacks MDRD (S/P/Bld) [Vol rate/Area] mL/min/1.73 m2 Normal >=59mL/min /1.73 m2 [facility] Chem S GFR/1.73 sq M.predicted among non-blacks MDRD (S/P/Bld) [Vol rate/Area] mL/min/1.73 m2 Normal >=59mL/min /1.73 m2 [facility] Chem S Glucose [Mass/Vol] 150 mg/dL Normal [...] 0.5 % Normal 0.0 - 2.0 % FT [...] 3.7 E12/L Low 4.3 - 5.9 E12/L [facility] HemeAutoSS WBC corrected for nucl RBC Auto (Bld) [#/Vol] 10.0 E9/L Normal 4.0 - 11.0 E9/L [facility] HemeAutoSS CHEMISTRYOrdered By: Sohan Sosa on 10-08-2021 Anion gap [Moles/Vol] 11 mmol/L Normal 6 - 16 mEq/L [facility] Calcium [Mass/Vol] 8.3 mg/dL Low 8.9 - 11. 1 mg/dL [facility] Chloride [Moles/Vol] 103 mmol/L Normal 101 - 1 11 mmol/L [facility] CO2 [Moles/Vol] 27 mmol/L Normal 21 - 31 mmol/L [facility] Creatinine [Mass/Vol] 1.4 mg/dL High 0.5 - 1.3 mg/dL [facility] Comment on above: Result Comment: Resu lt S_CREA:1.40 Called to MAYURI WOMACK AT 3N by TABATHA SOSA And Read Back For Confirmation at: 10/08/2021 06:06:20 Glucose [Mass/Vol] 132 mg/dL Normal 55 - 199 mg/dL [facility] Potassium [Moles/Vol] 4.6 mmol/L Normal 3.5 - 5.3 mmol/L [facility] Sodium [Moles/Vol] 136 mmol/L Normal 135 - 145 mmol/L [facility] Urea nitrogen [Mass/Vol] 31 mg/dL High 5 - 21 mg/dL [facility] Urea nitrogen/Creatinine [Mass ratio] 22 mg/mg High 10 - 20 [facility] Remisol CHEMISTRYOrdered By: SYSTEM SYSTEM on 10-08-2021 GFR/1.73 sq M.predicted among blacks MDRD (S/P/Bld) [Vol rate/Area] 60 mL/min/1.73 m2 Normal >=59mL/min /1.73 m2 [facility] Chem S GFR/1.73 sq M.predicted among non-blacks MDRD (S/P/Bld) [Vol rate/Area] 50 mL/min/1.73 m2 Low >=59mL/min /1.73 m2 [facility] Chem S Laboratory - Microbiology an d Antimicrobial susceptibilityon 10-08-2021 Bacteria identified Cx Nom (U) 2,000 cfu/ml Mixed skin contaminants [facility] CHEMISTRYOrdered By: SYSTEM SYSTEM on 10-07-2021 25-hydroxyvitamin [...] 1.9 mg/dL High 0.5 - 1.3 mg/dL [facility] Folate [Mass/Vol] 11.0 ng/mL Normal >=6.7ng/mL [facility] GFR/1.73 sq M.predicted among blacks MDRD (S/P/Bld) [Vol rate/Area] 42 mL/min/1.73 m2 Low >=59mL/min /1.73 m2 [facility] Chem S GFR/1.73 sq M.predicted among non-blacks MDRD (S/P/Bld) [Vol rate/Area] 35 mL/min/1.73 m2 Low >=59mL/min /1.73 m2 [facility] Chem S Glucose [Mass/Vol] 135 mg/dL Normal [...] ratio] 23 mg/mg High 10 - 20 [facility] Remisol Reference Laboratory Testing Ordered By: Ember DomainUser on 10-07-2021 Reagin Ab RPR Ql (S) Non-Reactive Invalid Interpretation Code Non Reactive [facility] SendOutsSS Comment on above: Result Comment: Perf ormed at: [facility] [address] [id number] PhD Erick Nielsen URINALYSISOrdered By: Shannon Dobbs [...] PM) Normal Negative [facility] UA Auto SS [place].plasma/[place] .RBC (Bld) [Mass ratio] 0-3 /HPF Normal [...] [facility] UA Auto SS Urobilinogen Qn (U) 0.9982677 {Gabby'U}/dL Normal 0.0 - 1.0 EU/dL [facility] [...] [facility] Remisol CHEMISTRYOrdered By: SYSTEM SYSTEM on 05-05-2022 GFR/1.73 sq M.predicted among blacks MDRD (S/P/Bld) [Vol rate/Area] 38 mL/min/1.73 m2 Low >=59mL/min /1.73 m2 [facility] Chem S GFR/1.73 sq M.predicted among non-blacks MDRD (S/P/Bld) [Vol rate/Area] 31 mL/min/1.73 m2 Low >=59mL/min /1.73 m2 [facility] Chem S Albumin [Mass/Vol] 3.9 g/dL Normal [...] mcIU/mL [facility] Rem[facility] COAGULATIONOrdered By: Jose R Dobsb on 10-06-2021 aPTT Coag (PPP) [Time] 37.2 [...] 19.4 mm[Hg] High 5.0 - 15.0 mmHg FT Resp Auto SS Allens Test Positive (10/06/21 6:03 PM) Normal [facility] Resp Auto SS Base Excess Arterial 1.8 mmol/L Low >=2.8mm ol/ L [facility] Resp Auto SS cCa2+ Art 4.47 mg/dL Normal 4.40 - 5.30 mg/dL [facility] Resp Auto SS cCl- Art 101.0 mmol/L Normal 101.0 - 111.0 mmol/L [facility] Resp Auto SS cGlu Art 269 mg/dL High 55 - 99 mg/dL [facility] Resp Auto SS cK+ Art 5.0 mmol/L Normal 3.5 - 5.3 mmol/L [facility] Resp Auto SS cLac Art 1.9 mmol/L Normal 0.5 - 2.2 mmol/L [facility] Resp Auto SS manufacturing quality manager+ Art 139.0 mmol/L Normal 135.0 - 145.0 mmol/L [facility] Resp Auto SS Drawn by RLG Invalid Interpretation Code [facility] Resp Auto SS FCOHb Art % Low 1.5 - 4.9 % [facility] Resp Auto SS FIO2 BG 21 Invalid Interpretation Code [facility] Resp Auto SS FMetHb Art 0.9 % Normal 0.0 - 1.9 % [facility] Resp Auto SS FO2Hb Art 92.6 % Low 93.0 - 100.0 % [facility] Resp Auto SS HCO3 (Bld) [Moles/Vol] 25.9 mmol/L Normal 22.0 - 26.0 mmol/L [facility] Resp Auto SS Hemoglobin (Bld) [Mass/Vol] 10.6 g/dL Low 12.0 - 17.0 gm/dL [facility] Resp Auto SS P CO2 Arterial 44.8 mm[Hg] Normal 35.0 - 45.0 mmHg [facility] Resp Auto SS P O2 Arterial 75.9 mm[Hg] Low 80.0 - 100.0 mmHg [facility] Resp Auto SS pH Arterial 7.391 Normal 7.350 - 7.450 [facility] Resp Auto SS Sample Site R Radial (10/06/21 6:03 PM) Normal [facility] Resp Auto SS Sample Type Arterial Draw (10/06/21 6:03 PM) Normal [facility] Resp Auto SS HEMATOLOGYOrdered By: SYSTEM SYSTEM [...] 3.8 E12/L Low 4.3 - 5.9 E12/L [facility] HemeAutoSS WBC corrected for nucl RBC Auto (Bld) [#/Vol] 7.0 E9/L Normal 4.0 - 11.0 E9/L [facility] HemeAutoSS Erythrocyte distribution width (RBC) [Ratio] 17.8 % High 10.9 - 14.2 % [facility] HemeAutoSS Hematocrit (Bld) [Volume fraction] 32.6 % Low 37.7 - 49.0 % [facility] HemeAutoSS Hemoglobin (Bld) [Mass/Vol] 10.7 g/dL Low 13.5 - 17.5 gm/dL [facility] HemeAutoSS MCH (RBC) [Entitic mass] 28.7 pg Normal 27.0 - 34.0 pg [facility] HemeAutoSS MCHC (RBC) [Mass/Vol] 32.9 g/dL Normal 31.4 - 36.0 gm/dL [facility] HemeAutoSS MCV (RBC) [Entitic vol] 87.3 fL Normal 80.0 - 100.0 fL [facility] HemeAutoSS Platelet mean volume (Bld) [Entitic vol] 6.9 fL Normal 6.4 - 10.8 fL [facility] HemeAutoSS Platelets (Bld) [#/Vol] 233.0 E9/L Normal 150.0 - 500.0 E9/L [facility] HemeAutoSS RBC (Bld) [#/Vol] 3.7 E12/L Low 4.3 - 5.9 E12/L [facility] HemeAutoSS WBC corrected for nucl RBC Auto (Bld) [#/Vol] 7.4 E9/L Normal 4.0 - 11.0 E9/L [facility] HemeAutoSS Laboratory - Microbiology an d Antimicrobial susceptibilityon 10-06-2021 Bacteria identified Cx Nom (U) 1,000 cfu/ml Mixed skin contaminants [facility] MICRO OTHER TESTSOrdered By: Jb Cuevas on 10-06-2021 Rapid COV Int NEG Ctl Pass (10/06/21 8:55 PM) Normal [facility] Man Sero Rapid COV Int POS Ctl Pass (10/06/21 8:55 PM) Normal [facility] Man Sero SARS-CoV+SARS-CoV-2 (COVID-19) Ag IA.rapid Ql (Resp) Not Detected (10/06/21 8:55 PM) Normal Not Detected [facility] Man Sero No Panel Informationon 10-06 Blood Culture Charcoal No growth at 6 da ys. Final to follow at 7 days. [facility] Blood Culture Charcoal No growth at 6 da ys. Final to follow at 7 days. [facility] URINALYSISOrdered By: Jb jeter on 10-06-2021 Bilirubin [...] PM) Normal Negative [facility] UA Auto SS [place].plasma/[place] .RBC (Bld) [Mass ratio] 0-3 /HPF Normal [...] [facility] UA Auto SS Urobilinogen Qn (U) 0.9011821 {Gabby'U}/dL Normal 0.0 - 1.0 EU/dL [facility] [...] 9.6 E9/L Normal 4.0 - 11.0 E9/L [facility] HemeAutoSS Tobacco Screening.on 022 Adult depression screening assessment No [facility] 600 DO Work Phone: Fall risk assessment b) One or more fall s in the last year [facility] DO Work Phone: Tobacco use status CPHS b) No [facility] 600 DO Work Phone: Comprehensive Metabolic Pane victor m 08-11-2021 Albumin [Mass/Vol] 4.6 g/dL Normal 3.6-5.1 Susan mcclelland [place] [employer] Comment on above: Performed By: #### C MP #### [facility] [address], [place] [id number] Albumin/Globulin [Mass ratio] 1.6 {ratio} Normal 1.0-2.5 [facility] Specialist Comment on above: Performed By: #### C MP #### [facility] [address], [place] [id number] ALP [Catalytic activity/Vol] 101 U/L Normal 40-129 [facility] Specialist Comment on above: Performed By: #### C MP #### [facility] [address], [place] [id number] ALT [Catalytic activity/Vol] 26 U/L Normal 9-46 [facility] Specialist Comment on above: Result Comment: 05/04 Female reference range changed. Performed By: #### C MP #### [facility] [address], [place] [id number] Anion gap [Moles/Vol] 20 mmol/L Normal 12-20 [facility] Specialist Comment on above: Result Comment: Effe ctive 06/09/2019 reference range changed. Performed By: #### C MP #### [facility] [address], [place] [id number] AST [Catalytic activity/Vol] 17 U/L Normal 10-40 [facility] Specialist Comment on above: Performed By: #### C MP #### [facility] [address], [place] [id number] BUN/CREA 19 Ratio Normal 6-22 [facility] Business Supervisor Comment on above: Performed By: #### C MP #### [facility] [address], [place] [id number] Calcium [Mass/Vol] 9.0 mg/dL Normal 8.6-10.2 Susan mcclelland [place] [employer] Comment on above: Performed By: #### C MP #### [facility] [address], [place] [id number] Chloride [Moles/Vol] 101 mmol/L Normal 98-107 [facility] Comment on above: Performed By: #### C MP #### [facility] [address], [place] [id number] CO2 [Moles/Vol] 24 mmol/L Normal 20-31 [facility] Comment on above: Performed By: #### C MP #### [facility] [address], [place] [id number] Creatinine [Mass/Vol] 1.4 mg/dL Normal 0.7-1.[address] [facility] Comment on above: Performed By: #### C MP #### [facility] [address], [place] [id number] eGFRAA 63 mL/min/1.73m2 Normal >60 [facility] Comment on above: Performed By: #### C MP #### [facility] [address], [place] [id number] eGFRNAA 52 mL/min/1.73m2 Low >60 [facility] Comment on above: Performed By: #### C MP #### [facility] [address], [place] [id number] Globulin (S) [Mass/Vol] 2.8 g/dL Normal 1.9-3.7 [facility] Comment on above: Performed By: #### C MP #### [facility] [address], [place] [id number] Glucose [Mass/Vol] 197 mg/dL High 65-99 [facility] Specialist Comment on above: Result Comment: For FASTING Glucose --- ADA reference ranges: Normal 65-99 mg/dl Prediabetes 100-125 Diabetes >/= 126 Performed By: #### C MP #### [facility] [address], [place] [id number] Potassium [Moles/Vol] 5.1 mmol/L Normal 3.5-5.[address] [facility] Comment on above: Performed By: #### C MP #### [facility] [address], [place] [id number] Protein [Mass/Vol] 7.4 g/dL Normal 6.1-8.1 [facility] Specialist Comment on above: Performed By: #### C MP #### [facility] [address], [place] [id number] Sodium [Moles/Vol] 140 mmol/L Normal 135-146 [facility] Specialist Comment on above: Performed By: #### C MP #### [facility] [address], [place] [id number] TBIL <0.3 Normal [facility] Comment on above: Performed By: #### C MP #### [facility] [address], [place] [id number] Urea nitrogen [Mass/Vol] 25 mg/dL Normal 7-25 [facility] Comment on above: Performed By: #### C MP #### [facility] [address], [place] [id number] Complete Blood Count with Au to Diffon 07-27-2021 Basophils (Bld) [#/Vol] 0.11 10*3/uL Normal 0.00-0.20 [facility] Comment on above: Performed By: #### C BCAJacob, CMP #### [facility] [address], [place] [id number] Basophils/100 WBC (Bld) 0.9 % Normal [facility] Comment on above: Performed By: #### C BCAJacob, CMP #### [facility] [address], [place] [id number] Eosinophils (Bld) [#/Vol] 0.24 10*3/uL Normal 0.02-0.50 [facility] Comment on above: Performed By: #### C BCAJacob, CMP #### [facility] [address], [place] [id number] Eosinophils/100 WBC (Bld) 2.1 % Normal [facility] Comment on above: Performed By: #### C BCAJacob, CMP #### [facility] [address], [place] [id number] Erythrocyte distribution width (RBC) [Ratio] 16.9 % High 11.0-15.0 [facility] Comment on above: Performed By: #### C BCAD, CMP #### [facility] [address], [place] [id number] Hematocrit (Bld) [Volume fraction] 35.1 % Low 38.5-50.0 [facility] Comment on above: Performed By: #### C BCAD, CMP #### [facility] [address], [place] [id number] Hemoglobin (Bld) [Mass/Vol] 10.7 g/dL Low 13.0-17.1 [facility] Comment on above: Performed By: #### C BCAD, CMP #### [facility] [address], [place] [id number] Lymphocytes (Bld) [#/Vol] 2.0 10*3/uL Normal 0.9-3.9 [facility] Comment on above: Performed By: #### C BCAD, CMP #### [facility] [address], [place] [id number] Lymphocytes/100 WBC (Bld) 17.4 % Normal [facility] Comment on above: Performed By: #### C BCAD, CMP #### [facility] [address], [place] [id number] MCH (RBC) [Entitic mass] 26.8 pg Low 27.0-33.0 [facility] Comment on above: Performed By: #### C BCAD, CMP #### [facility] [address], [place] [id number] MCHC (RBC) [Mass/Vol] 30.5 g/dL Low 32.0-36.[address] [facility] Comment on above: Performed By: #### C BCAD, CMP #### [facility] [address], [place] [id number] MCV (RBC) [Entitic vol] 88 fL Normal 80-100 [facility] Comment on above: Performed By: #### C BCAD, CMP #### [facility] [address], [place] [id number] Monocytes (Bld) [#/Vol] 0.8 10*3/uL Normal 0.2-0.9 [facility] Comment on above: Performed By: #### C BCAD, CMP #### [facility] [address], [place] [id number] Monocytes/100 WBC (Bld) 6.4 % Normal [facility] Comment on above: Performed By: #### C BCAD, CMP #### [facility] [address], [place] [id number] Neutrophils (Bld) [#/Vol] 8.4 10*3/uL High 1.5-7.8 [facility] Comment on above: Performed By: #### C BCAD, CMP #### [facility] [address], [place] [id number] Neutrophils/100 WBC (Bld) 71.9 % Normal [facility] Comment on above: Performed By: #### C BCAD, CMP #### [facility] [address], [place] [id number] Platelet mean volume (Bld) [Entitic vol] 9.00 fL Normal 7.50-12.50 [facility] Comment on above: Performed By: #### C BCAD, CMP #### [facility] [address], [place] [id number] Platelets (Bld) [#/Vol] 406 10*3/uL High 140-400 [facility] Comment on above: Performed By: #### C BCAD, CMP #### [facility] [address], [place] [id number] RBC (Bld) [#/Vol] 3.99 10*6/uL Low 4.20-5.80 [facility] Comment on above: Performed By: #### C BCAD, CMP #### [facility] [address], [place] [id number] RDW-SD 54.1 fL High 37.0-50.0 [facility] Comment on above: Performed By: #### C BCAD, CMP #### [facility] [address], [place] [id number] WBC (Bld) [#/Vol] 11.7 10*3/uL High 3.8-11.0 [facility] Specialist Comment on above: Performed By: #### C BCAD, CMP #### [facility] [address], [place] [id number] Comprehensive Metabolic Pane victor m 07-27-2021 Albumin [Mass/Vol] 4.7 g/dL Normal 3.6-5.1 [facility] Comment on above: Performed By: #### C BCAD, CMP #### [facility] [address], [place] [id number] Albumin/Globulin [Mass ratio] 1.5 {ratio} Normal 1.0-2.5 [facility] Comment on above: Performed By: #### C BCAD, CMP #### [facility] [address], [place] [id number] ALP [Catalytic activity/Vol] 137 U/L High 40-129 [facility] Comment on above: Performed By: #### C BCAD, CMP #### [facility] [address], [place] [id number] ALT [Catalytic activity/Vol] 43 U/L Normal 9-46 [facility] Comment on above: Result Comment: 05/04 Female reference range changed. Performed By: #### C BCAD, CMP #### [facility] [address], [place] [id number] Anion gap [Moles/Vol] 27 mmol/L High 12-20 [facility] Specialist Comment on above: Result Comment: Effe ctive 06/09/2019 reference range changed. Performed By: #### C BCAD, CMP #### [facility] [address], [place] [id number] AST [Catalytic activity/Vol] 30 U/L Normal 10-40 [facility] Comment on above: Performed By: #### C BCAD, CMP #### [facility] [address], [place] [id number] Bilirubin [Mass/Vol] 0.32 mg/dL Normal 0.30-1.20 [facility] Specialist Comment on above: Performed By: #### C BCAD, CMP #### [facility] [address], [place] [id number] BUN/CREA 29 Ratio High 6-22 [facility] Comment on above: Performed By: #### C BCAD, CMP #### [facility] [address], [place] [id number] Calcium [Mass/Vol] 9.3 mg/dL Normal 8.6-10.2 [facility] Supervisor Comment on above: Performed By: #### C BCAD, CMP #### [facility] [address], [place] [id number] Chloride [Moles/Vol] 93 mmol/L Low 98-107 [facility] Comment on above: Performed By: #### C BCAD, CMP #### [facility] [address], [place] [id number] CO2 [Moles/Vol] 21 mmol/L Normal 20-31 [facility] Comment on above: Performed By: #### C BCAD, CMP #### [facility] [address], [place] [id number] Creatinine [Mass/Vol] 1.7 mg/dL High 0.7-1.[address] [facility] Comment on above: Performed By: #### C BCAD, CMP #### [facility] [address], [place] [id number] eGFRAA 49 mL/min/1.73m2 Low >60 [facility] Comment on above: Performed By: #### C BCAD, CMP #### [facility] [address], [place] [id number] eGFRNAA 40 mL/min/1.73m2 Low >60 [facility] Comment on above: Performed By: #### C BCAD, CMP #### [facility] [address], [place] [id number] Globulin (S) [Mass/Vol] 3.2 g/dL Normal 1.9-3.7 [facility] Comment on above: Performed By: #### C BCAD, CMP #### [facility] [address], [place] [id number] Glucose [Mass/Vol] 260 mg/dL High 65-99 [facility] Supervisor Comment on above: Result Comment: For FASTING Glucose --- ADA reference ranges: Normal 65-99 mg/dl Prediabetes 100-125 Diabetes >/= 126 Performed By: #### C BCAD, CMP #### [facility] [address], [place] [id number] Potassium [Moles/Vol] 5.4 mmol/L Normal 3.5-5.5 [facility] Business Supervisor Comment on above: Performed By: #### C BCAD, CMP #### [facility] [address], [place] [id number] Protein [Mass/Vol] 7.9 g/dL Normal 6.1-8.1 Susan [facility] [place] [facility] Supervisor Comment on above: Performed By: #### C BCAD, CMP #### [facility] [address], [place] [id number] Sodium [Moles/Vol] 136 mmol/L Normal 135-146 Susan [facility]cclell[facility] [place] [facility] Supervisor Comment on above: Performed By: #### C BCAD, CMP #### [facility] [address], [place] [id number] Urea nitrogen [Mass/Vol] 49 mg/dL High 7-25 [facility] Business Supervisor Comment on above: Performed By: #### C BCAD, CMP #### [facility] [address], [place] [id number] Tobacco Screening.on 022 Fall risk assessment b) One or more fall s in the last year [facility] [employer] 600 DO Work Phone: Tobacco use status [facility] b) No [facility] [employer] 600 DO Work Phone: Laboratory - Microbiology an d Antimicrobial susceptibilityon 05-10-2021 SARS-CoV-2 (COVID-19) RNA JOLANTA+probe Ql (Unsp spec) [facility] [employer] [address] [place] Work Phone: Tobacco Screening.on 021 Fall risk assessment a) No falls within the last year [facility] [address] [place] Work Phone: Tobacco use status [facility] b) No [facility] [address] [place] Work Phone: No Panel Informationon 04-27 Normal [facility] [employer] [address] [place] Work Phone: Falls Risk Screeningon 03-15 Fall risk assessment b) One or more fall s in the last year [facility] [employer] 250 DO Work Phone: Heart Rate Bounding [facility] [employer] 250 DO Work Phone: IO EKG Electrocardiogram- 12 Leadon 03-15-2021 IO EKG Electrocardiogram- 12 Lead See Scanned Document [facility] [employer] 250 DO Work Phone: Vital Signs Date Time Vital Sign Value Performing Clinician Facility 03-12-2024 10:37-0400 Body height 177.8 cm Chayo LAU Work Phone: [facility] 03-12-2024 10:37-0400 Body mass index (BMI) [Ratio] 31.57 kg/m2 Chayo LAU Work Phone: [facility] 03-12-2024 10:37-0400 Body weight 99.79 kg Chayo LAU Work Phone: [facility] 03-12-2024 10:37-0400 Diastolic blood pressure 84 mm[Hg] Chayo LAU Work Phone: [facility] 03-12-2024 10:37-0400 Heart rate 60 /min Chayo LAU Work Phone: [facility] 03-12-2024 10:37-0400 Respiratory rate 16 /min Chayo LAU Work Phone: [facility] 03-12-2024 10:37-0400 SaO2% (BldA) [Mass fraction] 95 % Chayo LAU Work Phone: [facility] 03-12-2024 10:37-0400 Systolic blood pressure 144 mm[Hg] Chayo LAU Work Phone: [facility] 03-06-2024 13:46-0400 Body height 177.8 cm Mona Baker MD Work Phone: [facility] 03-06-2024 13:46-0400 Body mass index (BMI) [Ratio] 31.6 kg/m2 Mona Baker MD Work Phone: [facility] 03-06-2024 13:46-0400 Body temperature 97.81 [degF] Mona Baker MD Work Phone: [facility] 03-06-2024 13:46-0400 Body weight 99.88 kg Mona Baker MD Work Phone: [facility] 03-06-2024 13:46-0400 Diastolic blood pressure 70 mm[Hg] Mona Baker MD Work Phone: [facility] 03-06-2024 13:46-0400 Heart rate 60 /min Mona Baker MD Work Phone: [facility] 03-06-2024 13:46-0400 SaO2% (BldA) [Mass fraction] 97 % Mona Baker MD Work Phone: [facility] 03-06-2024 13:46-0400 Systolic blood pressure 120 mm[Hg] Mona Baker MD Work Phone: [facility] 03-04-2024 14:00-0400 Hourly Rounding [facility] 03-04-2024 14:00-0400 [facility] Return [facility] 03-04-2024 13:23-0400 Hourly Rounding [facility] 03-04-2024 13:23-0400 [facility] 03-04-2024 12:45-0400 Heart rate 68 /min [facility] 03-04-2024 12:45-0400 Respiratory rate 20 /min [facility] 03-04-2024 12:38-0400 Heart rate 67 /min [facility] 03-04-2024 12:38-0400 Respiratory rate 20 /min [facility] 03-04-2024 12:00-0400 Hourly Rounding [facility] 03-04-2024 12:00-0400 [facility] 03-04-2024 11:15-0400 Heart rate 60 /min [facility] 03-04-2024 11:15-0400 SaO2% (BldA) [Mass fraction] 94 % [facility] 03-04-2024 11:14-0400 Diastolic blood pressure 64 mm[Hg] [facility] 03-04-2024 11:14-0400 Mean blood pressure 78 mm[Hg] [facility] 03-04-2024 11:14-0400 Systolic blood pressure 106 mm[Hg] [facility] 03-04-2024 11:13-0400 Body temperature 98.6 [degF] [facility] 03-04-2024 09:34-0400 SaO2% (BldA) [Mass fraction] 94 % [facility] 03-04-2024 08:41-0400 Respiratory rate 18 /min [facility] 03-04-2024 08:41-0400 SaO2% (BldA) [Mass fraction] 100 % [facility] 03-04-2024 08:16-0400 Diastolic blood pressure 70 mm[Hg] [facility] 03-04-2024 08:16-0400 Systolic blood pressure 144 mm[Hg] [facility] 03-04-2024 07:44-0400 Diastolic blood pressure 70 mm[Hg] [facility] 03-04-[facility]24 07:44-0400 Mean blood pressure 95 mm[Hg] [facility] 03-04-2024 07:44-0400 Systolic blood pressure 144 mm[Hg] [facility] 03-04-2024 07:44-0400 Body temperature 98.06 [degF] [facility] 03-04-2024 02:21-0400 Blood [facility] 03-04-2024 02:21-0400 Body temperature 98.24 [degF] [facility] 03-04-2024 02:21-0400 Mean blood pressure 84 mm[Hg[facility] 03-03-20[facility] 21:42-0400 Mean blood pressure 89 mm[Hg] [facility] 03-03-2024 21:41-0400 Body temperature 98.06 [degF] [facility] 03-03-2024 05:00-0400 Blood Pressure Location [facility] 03-03-2024 05:00-0400 Body temperature 97.52 [degF] [facility] 03-03-2024 05:00-0400 Mean blood pressure 113 mm[Hg] [facility] 03-03-2024 05:00-0400 Respiratory rate 18 /min [facility] 03-03-2024 00:00-0400 Blood Pressure Location [facility] 03-03-2024 00:00-0400 Mean blood pressure 107 mm[Hg] [facility] 03-03-2024 00:00-0400 Respiratory rate 18 /min [facility] 03-02-2024 12:30-0400 Body temperature 98.24 [degF] [facility] 03-02-2024 12:30-0400 Heart rate 63 /min [facility] 03-02-2024 11:54-0400 Respiratory rate 20 /min [facility] 03-02-2024 08:25-0400 SaO2% (BldA) [Mass fraction] 92.8 % [facility] 03-02-2024 08:08-0400 Heart rate 67 /min [facility] 01-23-2024 11:34-0400 Blood Pressure Location [employer] [facility] [employer] [facility] 01-23-2024 11:34-0400 Diastolic blood pressure 70 mm[Hg[facility] 01-23-2024 11:34-0400 Heart rate 60 /min [employer] [facility] [employer] [facility] 01-23-2024 11:34-0400 SaO2% (BldA) [Mass fraction] 97 % [facility] 01-23-2024 11:34-0400 Systolic blood pressure 125 mm[Hg] [facility] 01-03-2024 14:51-0400 Body height 177.8 cm MD Mona Baker Work Phone: [facility] 01-03-2024 14:51-0400 Body mass index (BMI) [Ratio] 32.5 kg/m2 MD Mona Baker Work Phone: [facility] 01-03-2024 14:51-0400 Body temperature 97.8 [degF] MD Mona Baker Work Phone: [facility] 01-03-2024 14:51-0400 Body weight 102.96 kg MD Mona Baker Work Phone: [facility] 01-03-2024 14:51-0400 Diastolic blood pressure 73 mm[Hg] MD Mona Baker Work Phone: [facility] 01-03-2024 14:51-0400 Heart rate 60 /min MD Mona Baker Work Phone: [facility] 01-03-2024 14:51-0400 Systolic blood pressure 160 mm[Hg] MD Mona Baker Work Phone: [facility] 12-05-2023 10:09-0400 Diastolic blood pressure 70 mm[Hg] [facility] 12-05-2023 10:09-0400 Heart rate 61 /min [facility] 12-05-2023 10:09-0400 Respiratory rate 16 /min [facility] 12-05-2023 10:09-0400 SaO2% (BldA) [Mass fraction] 96 % [facility] 12-05-2023 10:09-0400 Systolic blood pressure 126 mm[Hg] [facility] 11-26-2023 13:56-0400 Body height 177.8 cm MD Mona Baker Work Phone: [facility] 11-26-2023 13:56-0400 Body mass index (BMI) [Ratio] 33 kg/m2 MD Mona Baker Work Phone: [facility] 11-26-2023 13:56-0400 Body temperature 98.5 [degF] MD Mona Baker Work Phone: [facility] 11-26-2023 13:56-0400 Body weight 104.32 kg MD Mona Baker Work Phone: [facility] 11-26-2023 13:56-0400 Diastolic blood pressure 52 mm[Hg] MD Mona Baker Work Phone: [facility] 11-26-2023 13:56-0400 Heart rate 59 /min MD Mona Baker Work Phone: [facility] 11-26-2023 13:56-0400 Systolic blood pressure 125 mm[Hg] MD Mona Baker Work Phone: [facility] 11-22-2023 14:00-0400 Blood Pressure Location [facility] 11-22-2023 14:00-0400 Body temperature 98.24 [degF] [facility] 11-22-2023 14:00-0400 Diastolic blood pressure 71 mm[Hg] [facility] 11-22-2023 14:00-0400 Heart rate 59 /min [facility] 11-22-2023 14:00-0400 Respiratory rate 18 /min [facility] 11-22-2023 14:00-0400 SaO2% (BldA) [Mass fraction] 92 % [facility] 11-22-2023 14:00-0400 Systolic blood pressure 145 mm[Hg] [facility] 11-15-2023 14:42-0400 Blood Pressure Location [facility] 11-15-2023 14:42-0400 Body temperature 98.6 [degF] [facility] 11-15-2023 14:42-0400 Diastolic blood pressure 73 mm[Hg] [facility] 11-15-2023 14:42-0400 Heart rate 58 /min [facility] 11-15-2023 14:42-0400 Mean blood pressure 99 mm[Hg] [facility] 11-15-2023 14:42-0400 Respiratory rate 16 /min [facility] 11-15-2023 14:42-0400 SaO2% (BldA) [Mass fraction] 94 % [facility] 11-15-2023 14:42-0400 Systolic blood pressure 152 mm[Hg] [facility] 10-31-2023 13:56-0400 Body temperature 98.6 [degF] [facility] 10-31-2023 13:56-0400 Diastolic blood pressure 66 mm[Hg] [facility] 10-31-2023 13:56-0400 Heart rate 59 /min [facility] 10-31-2023 13:56-0400 Mean blood pressure 81 mm[Hg] [facility] 10-31-2023 13:56-0400 Respiratory rate 16 /min [facility] 10-31-2023 13:56-0400 SaO2% (BldA) [Mass fraction] 95 % [facility] 10-31-2023 13:56-0400 Systolic blood pressure 112 mm[Hg] [facility] 10-30-2023 11:18-0400 Body height 177.8 cm Ye Lobo MD Work Phone: [facility] 10-30-2023 11:18-0400 Body mass index (BMI) [Ratio] 32.57 kg/m2 Ye Lobo MD Work Phone: [facility] 10-30-2023 11:18-0400 Body weight 102.97 kg Ye Lobo MD Work Phone: [facility] 10-30-2023 11:18-0400 Diastolic blood pressure 63 mm[Hg] Ye Lobo MD Work Phone: [facility] 10-30-2023 11:18-0400 Heart rate 68 /min Ye Lobo MD Work Phone: [facility] 10-30-2023 11:18-0400 Respiratory rate 16 /min Ye Lobo MD Work Phone: [facility] 10-30-2023 11:18-0400 SaO2% (BldA) [Mass fraction] 94 % Ye Lobo MD Work Phone: [facility] 10-30-2023 11:18-0400 Systolic blood pressure 130 mm[Hg] Ye Lobo MD Work Phone: [facility] 10-18-2023 15:30-0400 Body height 177.8 cm MD Mona Baker Work Phone: [facility] 10-18-2023 15:30-0400 Body mass index (BMI) [Ratio] 32.5 kg/m2 MD Mona Baker Work Phone: [facility] 10-18-2023 15:30-0400 Body temperature 97.8 [degF] MD Mona Baker Work Phone: [facility] 10-18-2023 15:30-0400 Body weight 103 kg MD Mona Baker Work Phone: [facility] 10-18-2023 15:30-0400 Diastolic blood pressure 59 mm[Hg] MD Mona Baker Work Phone: [facility] 10-18-2023 15:30-0400 Heart rate 59 /min MD Mona Baker Work Phone: [facility] 10-18-2023 15:30-0400 Systolic blood pressure 134 mm[Hg] MD Mona Baker Work Phone: [facility] 10-17-2023 10:38-0400 Body height 177.8 cm Felipa Milligan MD Work Phone: [facility] 10-17-2023 10:38-0400 Body mass index (BMI) [Ratio] 32.28 kg/m2 Felipa Milligan MD Work Phone: [facility] 10-17-2023 10:38-0400 Body weight 102.06 kg Felipa Milligan MD Work Phone: [facility] 10-17-2023 10:38-0400 Diastolic blood pressure 66 mm[Hg] Felipa Milligan MD Work Phone: [facility] 10-17-2023 10:38-0400 Heart rate 60 /min Felipa Milligan MD Work Phone: [facility] 10-17-2023 10:38-0400 Systolic blood pressure 126 mm[Hg] Felipa Milligan MD Work Phone: [facility] 09-06-2023 09:01-0400 Diastolic blood pressure 57 mm[Hg] MD Mona Baker Work Phone: [facility] 09-06-2023 09:01-0400 Heart rate 60 /min MD Mona Baker Work Phone: [facility] 09-06-2023 09:01-0400 Respiratory rate 16 /min MD Mona Baker Work Phone: [facility] 09-06-2023 09:01-0400 SaO2% (BldA) [Mass fraction] 96 % MD Mona Baker Work Phone: [facility] 09-06-2023 09:01-0400 Systolic blood pressure 124 mm[Hg] MD Mona Baker Work Phone: [facility] 09-06-2023 07:29-0400 Body height 177.8 cm MD Mona Baker Work Phone: [facility] 09-06-2023 07:29-0400 Body weight 99.79 kg MD Mona Baker Work Phone: [facility] 08-29-2023 15:00-0400 Hourly Rounding [facility] 08-29-2023 15:00-0400 Promise to Return [facility] 08-29-2023 14:00-0400 Diastolic blood pressure 61 mm[Hg] [facility] 08-29-2023 14:00-0400 Heart rate 61 /min [facility] 08-29-2023 14:00-0400 Hour[employer] Round[facility] 08-29-2023 14:00-0400 Promise to Return [facility] 08-29-2023 14:00-0400 Systolic blood pressure 124 mm[Hg] [facility] 08-29-2023 13:00-0400 Hourly Rounding [facility] 08-29-2023 13:00-0400 Promise to Return [facility] 08-29-2023 11:59-0400 gluc 205 mg/dL [facility] 08-29-2023 11:33-0400 Heart rate 60 /min [facility] 08-29-2023 11:33-0400 SaO2% (BldA) [Mass fraction] 98 % [facility] 08-29-2023 11:32-0400 Respiratory rate 17 /min [facility] 08-29-2023 11:25-0400 Diastolic blood pressure 67 mm[Hg] [facility] 08-29-2023 11:25-0400 Mean blood pressure 90 mm[Hg] [facility] 08-29-2023 11:25-0400 Systolic blood pressure 136 mm[Hg] [facility] 08-29-2023 11:25-0400 Body temperature 98.42 [degF] [facility] 08-29-2023 08:27-0400 gluc 109 mg/dL [facility] 08-29-2023 08:14-0400 Heart rate 60 /min [facility] 08-29-2023 08:14-0400 SaO2% (BldA) [Mass fraction] 96 % [facility] 08-29-2023 08:14-0400 Respiratory rate 20 /min [facility] 08-29-2023 08:08-0400 Diastolic blood pressure 82 mm[Hg] [facility] 08-29-2023 08:08-0400 Mean blood pressure 96 mm[Hg] [facility] 08-29-2023 08:08-0400 Systolic blood pressure 125 mm[Hg] [facility] 08-29-2023 08:08-0400 Body temperature 98.42 [degF] [facility] 08-29-2023 08:08-0400 Mean blood pressure 96 mm[Hg] [facility] 08-29-2023 00:05-0400 Blood Pressure Location [facility] 08-29-2023 00:05-0400 Body temperature 98.42 [degF] [facility] 08-29-2023 00:05-0400 Respiratory rate 16 /min [facility] 08-29-2023 00:05-0400 SaO2% (BldA) [Mass fraction] 94 % [facility] 08-28-2023 20:19-0400 Body temperature 98.06 [degF] [facility] 08-28-2023 20:19-0400 Mean blood pressure 76 mm[Hg] [facility] 08-28-2023 15:00-0400 gluc 185 mg/dL [facility] 08-28-2023 15:00-0400 Respiratory rate 18 /min [facility] 08-28-2023 04:00-0400 Body temperature 98.24 [degF] [facility] 08-28-2023 04:00-0400 Heart rate 60 /min [facility] 08-28-2023 04:00-0400 Mean blood pressure 87 mm[Hg] [facility] 08-28-2023 01:49-0400 Blood Pressure Location [facility] 08-28-2023 01:49-0400 Body temperature 97.52 [degF] [facility] 08-28-2023 01:49-0400 Heart rate 60 /min [facility] 08-28-2023 01:25-0400 Mean blood pressure 88 mm[Hg] [facility] 08-28-2023 01:25-0400 Respiratory rate 10 /min [facility] 08-28-2023 00:45-0400 Respiratory rate 12 /min [facility] 08-27-2023 20:38-0400 Heart rate 60 /min [facility] 07-16-2023 13:15-0500 Body height 177.8 cm Janusz Ruiz Other [employer] Other 07-16-2023 13:15-0500 Body mass index (BMI) [Ratio] 32.71 kg/m2 Janusz Ruiz Other [employer] Other 07-16-2023 13:15-0500 Body temperature 97.4 [degF] Janusz Ruiz Other [employer] Other 07-16-2023 13:15-0500 Body weight 103.42 kg Janusz Ruiz Other [employer] Other 07-16-2023 13:15-0500 Diastolic blood pressure 55 mm[Hg] Janusz Ruiz Other [employer] Other 07-16-2023 13:15-0500 Systolic blood pressure 146 mm[Hg] Janusz Ruiz Other [employer] Other 06-17-2023 16:29-0500 Inhaled oxygen flow rate 2 L/min MD Dunn [facility] 06-17-2023 16:27-0500 SaO2% (BldA) [Mass fraction] 96 % Mona [facility] 06-17-2023 15:56-0500 Heart rate 60 /min [facility]-17-[facility]23 15:53-0500 Body height 172.72 cm MD Dunn [facility] 06-17-2023 15:53-0500 Body weight 104.77 kg MD Dunn [facility] 06-17-2023 15:52-0500 Body temperature 98.3 [degF] MD Mona Baker [facility] 06-17-2023 15:52-0500 Diastolic blood pressure 67 mm[Hg] MD Mona Baker [facility] 06-17-2023 15:52-0500 Respiratory rate 18 /min Mona Olivia [facility] 06-17-2023 15:52-0500 Systolic blood pressure 146 mm[Hg] [facility] 04-12-2023 09:00-0500 Blood Pressure Location Armani Yarbrough [facility] 04-12-2023 09:00-0500 Body temperature 97.88 [degF] Armani Yarbrough [facility] 04-12-2023 09:00-0500 Diastolic blood pressure 64 mm[Hg] Armanijustice Yarbrough [facility] 04-12-2023 09:00-0500 Heart rate 60 /min [facility] Linnea [facility] 04-12-2023 09:00-0500 Mean blood pressure 80 mm[Hg] Armani Yarbrough [facility] 04-12-2023 09:00-0500 Respiratory rate 18 /min [facility] 04-12-2023 09:00-0500 SaO2% (BldA) [Mass fraction] 95 % [facility]-12-2023 09:00-0500 Systolic blood pressure 113 mm[Hg] [facility] 04-09-2023 09:23-0500 Blood Pressure Location Basem Diggs [facility] 04-09-2023 09:23-0500 Diastolic blood pressure 58 mm[Hg] Basem Diggs [facility] 04-09-2023 09:23-0500 Heart rate 60 /min Basem Diggs [facility] 04-09-2023 09:23-0500 SaO2% (BldA) [Mass fraction] 98 % Basem Diggs [facility] 04-09-2023 09:23-0500 Systolic blood pressure 105 mm[Hg] Basem Diggs [facility] 04-04-2023 12:08-0400 Body height 177.8 cm Felipa Milligan MD Work Phone: [facility] 04-04-2023 12:08-0400 Body mass index (BMI) [Ratio] 31.71 kg/m2 Felipa Milligan MD Work Phone: [facility] 04-04-2023 12:08-0400 Body weight 100.25 kg Felipa Milligan MD Work Phone: [facility] 04-04-2023 12:08-0400 Diastolic blood pressure 62 mm[Hg] Felipa Milligan MD Work Phone: [facility] 04-04-2023 12:08-0400 Heart rate 60 /min Felipa Milligan MD Work Phone: [facility] 04-04-2023 12:08-0400 Systolic blood pressure 110 mm[Hg] Felipa Milligan MD Work Phone: [facility] 03-26-2023 13:31-0400 Body height 177.8 cm Jackie Mcginnis MD Work Phone: [facility] 03-26-2023 13:31-0400 Body mass index (BMI) [Ratio] 31.71 kg/m2 Jackie Mcginnis MD Work Phone: [facility] 03-26-2023 13:31-0400 Body weight 100.25 kg Jackie Mcginnis MD Work Phone: [facility] 03-26-2023 13:31-0400 Diastolic blood pressure 64 mm[Hg] Jackie Mcginnis MD Work Phone: [facility] 03-26-2023 13:31-0400 Heart rate 58 /min Jackie Mcginnis MD Work Phone: [facility] 03-26-2023 13:31-0400 Systolic blood pressure 139 mm[Hg] Jackie Mcginnis MD Work Phone: [facility] 02-20-2023 14:17-0400 Diastolic blood pressure 67 mm[Hg] Keisha Brambila [employer]PER[employer]END[employer] - [employer] Work Phone: [facility] [employer] 02-20-2023 14:17-0400 Heart rate 60 /min Keisha Brambila [employer] SUPERINTENDANT - [employer] W[employer]ER Work Phone: [employer] 02-20-2023 14:17-0400 Systolic blood pressure 146 mm[Hg] Keisha Brambila [employer]OUN[employer] SUPERINTENDANT - [employer] Work Phone: [facility] [employer] 02-20-2023 14:16-0400 Body height 172.7 cm Keisha Brambila [employer] SUPERINTENDANT - [employer] Work Phone: [facility] [employer] 02-20-2023 14:16-0400 Body mass index (BMI) [Ratio] 34.85 kg/m2 Keisha Brambila [employer] SUPERINTENDANT - [employer] Work Phone: [facility] [employer] 02-20-2023 14:16-0400 Body weight 103.96 kg Keisha Brambila [employer] SUPERINTENDANT - [employer] W[employer]ER Work Phone: [facility] [employer] 01-15-2023 13:00-0400 Body height 177.8 cm Janusz Ruiz Other [employer] Other 01-15-2023 13:00-0400 Body mass index (BMI) [Ratio] 33.14 kg/m2 Janusz Ruiz Other [employer] Other 01-15-2023 13:00-0400 Body temperature 97.7 [degF] Janusz Ruiz Other [employer] Other 01-15-2023 13:00-0400 Body weight 104.78 kg Janusz Ruiz Other [employer] Other 01-15-2023 13:00-0400 Diastolic blood pressure 56 mm[Hg] Janusz Ruiz Other [employer] Other 01-15-2023 13:00-0400 Systolic blood pressure 145 mm[Hg] Janusz Ruiz Other [employer] Other 11-20-2022 15:12-0400 Body height 177.8 cm Mona Baker Work Phone: JD-Jmlgwjvez-Uqpxqm ke B 101 Work Phone: 11-20-2022 15:12-0400 Body mass index (BMI) [Ratio] 32.86 kg/m2 Mona M Olivia Work Phone: KT-Wlthsuzvj-Pewsyc ke B 101 Work Phone: 11-20-2022 15:12-0400 Body surface area Derived from formula 2.21 m2 Mona M Olivia Work Phone: VG-Guiwgrnxh-Pzjamn ke B 101 Work Phone: 11-20-2022 15:12-0400 Body weight 103.87 kg Mona M Olivia Work Phone: CO-Cmeexqowr-Vtnxig ke B 101 Work Phone: 11-20-2022 15:12-0400 Diastolic blood pressure 54 mm[Hg] Mona M Olivia Work Phone: SM-Jjvvnfkkr-Fnwmby ke B 101 Work Phone: 11-20-2022 15:12-0400 Heart rate 59 /min Mona M Olivia Work Phone: EL-Erzbnjayb-Bndwhi ke B 101 Work Phone: 11-20-2022 15:12-0400 Systolic blood pressure 128 mm[Hg] Mona M Olivia Work Phone: FE-Qzwoepetu-Hzinfj ke B 101 Work Phone: 09-22-2022 15:18-0400 Body height 177.8 cm Mona M Olivia Work Phone: [facility] 600 DO Work Phone: 09-22-2022 15:18-0400 Body mass index (BMI) [Ratio] 32 kg/m2 Mona M Olivia Work Phone: [facility] 600 DO Work Phone: 09-22-2022 15:18-0400 Body surface area Derived from formula 2.19 m2 Mona M Olivia Work Phone: [facility] 600 DO Work Phone: 09-22-2022 15:18-0400 Body weight 101.15 kg Mona M Olivia Work Phone: [facility] 600 DO Work Phone: 09-22-2022 15:18-0400 Diastolic blood pressure 66 mm[Hg] Mona M Olivia Work Phone: [facility] 600 DO Work Phone: 09-22-2022 15:18-0400 Heart rate 60 /min Mona M Olivia Work Phone: [facility] 600 DO Work Phone: 09-22-2022 15:18-0400 Systolic blood pressure 128 mm[Hg] Mona Ed Olivia Work Phone: [facility] 600 DO Work Phone: 09-22-2022 12:02-0400 Blood Pressure Location Andi WARE [facility] 09-22-2022 12:02-0400 Diastolic blood pressure 63 mm[Hg] Andi WARE [facility] 09-22-2022 12:02-0400 Heart rate 69 /min Andi WARE [facility] 09-22-2022 12:02-0400 Respiratory rate 16 /min Andi WARE [facility] 09-22-2022 12:02-0400 Systolic blood pressure 112 mm[Hg] Andi WARE [facility] 08-16-2022 13:35-0400 Blood Pressure Location Andi WARE [facility] 08-16-2022 13:35-0400 Diastolic blood pressure 54 mm[Hg] Andi WARE [facility] 08-16-2022 13:35-0400 Heart rate 65 /min Andi WARE [facility] 08-16-2022 13:35-0400 Systolic blood pressure 124 mm[Hg] Andi WARE [facility] 08-09-2022 15:39-0500 Blood Pressure Location Andi WARE [facility] 08-09-2022 15:39-0500 Diastolic blood pressure 67 mm[Hg] Andi WARE [facility] 08-09-2022 15:39-0500 Heart rate 63 /min Andi WARE [facility] 08-09-2022 15:39-0500 Systolic blood pressure 141 mm[Hg] Andi WARE [facility] 07-31-2022 11:34-0500 Body height 177.8 cm Mona Ward Olivia Work Phone: NS-Yubmuarzl-Jheovh ke B 101 DO Work Phone: 07-31-2022 11:34-0500 Body mass index (BMI) [Ratio] 32.57 kg/m2 Mona M Olivia Work Phone: SD-Egmhjalxh-Rvnuoo ke B 101 DO Work Phone: 07-31-2022 11:34-0500 Body surface area Derived from formula 2.2 m2 Mona De Los Santoses Work Phone: JT-Yziralhxm-Dftwot ke B 101 DO Work Phone: 07-31-2022 11:34-0500 Body weight 102.97 kg Mona Baker Work Phone: BP-Bzqtemhzk-Qsjvzb ke B 101 DO Work Phone: 07-31-2022 11:34-0500 Diastolic blood pressure 62 mm[Hg] Mona Baker Work Phone: QG-Gdljumoeu-Lbmjyw ke B 101 DO Work Phone: 07-31-2022 11:34-0500 Heart rate 58 /min Mona Baker Work Phone: YO-Vukqutyfk-Ezrzun ke B 101 DO Work Phone: 07-31-2022 11:34-0500 Systolic blood pressure 137 mm[Hg] Mona Baker Work Phone: UE-Swglrtfnu-Gvaibc ke B 101 DO Work Phone: 07-25-2022 13:25-0500 Diastolic blood pressure 58 mm[Hg] MD Mona Baker [facility] 07-25-2022 13:25-0500 Heart rate 60 /min MD oMna Baker [facility] 07-25-2022 13:25-0500 Respiratory rate 16 /min MD Dunn Olivia [facility] 07-25-2022 13:25-0500 SaO2% (BldA) [Mass fraction] 92 % MD Dunn [facility] 07-25-2022 13:25-0500 Systolic blood pressure 117 mm[Hg] MD Dunn [facility] 07-25-2022 12:13-0500 Body temperature 98.1 [degF] [facility] 07-25-2022 12:13-0500 Inhaled oxygen flow rate 8 L/min MD Mona Baker [facility] 07-25-2022 10:54-0500 Body height 177.8 cm MD Mona Baker [facility] 07-25-2022 10:54-0500 Body mass index (BMI) [Ratio] 32.5 kg/m2 MD Mona Baker [facility] 07-25-2022 10:54-0500 Body weight 102.96 kg MD Mona Baker [facility] 07-17-2022 13:15-0500 Body height 177.8 cm Janusz Riuz Other [facility] [employer] Other 07-17-2022 13:15-0500 Body mass index (BMI) [Ratio] 32.71 kg/m2 Janusz Ruiz Other [employer] [facility] [place] [employer] Other 07-17-2022 13:15-0500 Body temperature 97.4 [degF] Janusz Ruiz Other [employer] [facility] [place] [employer] Other 07-17-2022 13:15-0500 Body weight 103.42 kg Janusz Ruiz Other [employer] Other 07-17-2022 13:15-0500 Diastolic blood pressure 55 mm[Hg] Janusz Ruiz Other [employer] [facility] [employer] Other 07-17-2022 13:15-0500 Systolic blood pressure 129 mm[Hg] Janusz Ruiz Other [employer] [facility] [place] [employer] Other 05-23-2022 12:03-0500 Diastolic blood pressure 65 mm[Hg] MD Mona Baker [facility] 05-23-2022 12:03-0500 Heart rate 60 /min MD Mona Baker [facility] 05-23-2022 12:03-0500 Respiratory rate 14 /min MD Mona Baker [facility] 05-23-2022 12:03-0500 SaO2% (BldA) [Mass fraction] 93 % MD Mona De Los Santoses [facility] 05-23-2022 12:03-0500 Systolic blood pressure 127 mm[Hg] MD Mona Baker [facility] 05-23-2022 10:41-0500 Inhaled oxygen flow rate 6 L/min MD [facility] 05-23-2022 10:36-0500 Body temperature 97 [degF] Monaandi Baker [facility] 05-23-2022 09:07-0500 Body mass index (BMI) [Ratio] 33 kg/m2 Monaandi Baker [facility] 05-23-2022 08:47-0500 Body height 177.8 cm Monaandi Baker [facility] 05-23-2022 08:47-0500 Body weight 104.32 kg Monaandi Baker [facility] 05-14-2022 16:15-0500 Heart rate 63 /min MD Mona Baker [facility] 05-14-2022 16:15-0500 Respiratory rate 20 /min [facility]-14-2022 16:00-0500 Body temperature 97.8 [degF] MD [facility] 05-14-2022 16:00-0500 Diastolic blood pressure 71 mm[Hg] MD Mona De Los Santoses [facility] 05-14-2022 16:00-0500 SaO2% (BldA) [Mass fraction] 95 % MD Mona De Los Santoses [facility] 05-14-2022 16:00-0500 Systolic blood pressure 136 mm[Hg] MD Mona Baker [facility] 05-14-2022 08:00-0500 Inhaled oxygen flow rate 3 L/min MD Mona Baker [facility] 05-14-2022 06:00-0500 Body weight 116 kg [facility] 05-12-2022 15:19-0500 Body height 177.8 cm MD Mona [facility] 05-12-2022 15:04-0500 Body temperature 97.5 [degF] [facility] 05-12-2022 14:30-0500 Diastolic blood pressure 63 mm[Hg] [facility] 05-12-2022 14:30-0500 Heart rate 60 /min MD Mona Baker [facility] 05-12-2022 14:30-0500 Respiratory rate 20 /min Mona [facility] 05-12-2022 14:30-0500 SaO2% (BldA) [Mass fraction] 95 % Mona [facility] 05-12-2022 14:30-0500 Systolic blood pressure 130 mm[Hg] Mona [facility] 05-12-2022 10:46-0500 Body height 175.26 cm Mona [facility] 05-12-2022 10:46-0500 Body weight 104.32 kg Mona [facility] 03-31-2022 09:42-0400 Blood Pressure Location Basem Diggs [facility] 03-31-2022 09:42-0400 Diastolic blood pressure 64 mm[Hg] Basem Diggs [facility] 03-31-2022 09:42-0400 Heart rate 60 /min Basem Diggs [facility] 03-31-2022 09:42-0400 SaO2% (BldA) [Mass fraction] 97 % Basem Diggs [facility] 03-31-2022 09:42-0400 Systolic blood pressure 142 mm[Hg] Basem Diggs [facility] 03-23-2022 09:12-0400 Blood Pressure Location Deshawn Gaffney [facility] [place] [place] [address]-20-2022 09:12-0400 Diastolic blood pressure 82 mm[Hg] Deshawn Gaffney [facility] 03-23-2022 09:12-0400 Heart rate 60 /min Deshawn Gaffney [facility] 03-23-2022 09:12-0400 Systolic blood pressure 149 mm[Hg] Deshawn Gaffney [facility] 03-15-2022 10:28-0400 Body height 177.8 cm [facility]a M [facility] Work Phone: 03-15-2022 10:28-0400 Body mass index (BMI) [Ratio] 33 kg/m2 Mona M Olivia Work Phone: [facility] 600 DO Work Phone: 03-15-2022 10:28-0400 Body surface area Derived from formula 2.22 m2 Mona M Olivia Work Phone: [facility] DO Work Phone: 03-15-2022 10:28-0400 Body weight 104.33 kg Mona M Olivia Work Phone: [facility] DO Work Phone: 03-15-2022 10:28-0400 Diastolic blood pressure 60 mm[Hg] Mona M Olivia Work Phone: [facility] DO Work Phone: 03-15-2022 10:28-0400 Heart rate 60 /min Mona M Olivia Work Phone: [facility] DO Work Phone: 03-15-2022 10:28-0400 Systolic blood pressure 130 mm[Hg] Mona M Olivia Work Phone: [facility] 600 DO Work Phone: 03-09-2022 14:31-0400 Blood Pressure Location Deshawn Gaffney [facility] 03-09-2022 14:31-0400 Diastolic blood pressure 69 mm[Hg] Deshawn Gaffney [facility] 03-09-2022 14:31-0400 Heart rate 60 /min Deshawn Gaffney [facility] 03-09-2022 14:31-0400 Systolic blood pressure 125 mm[Hg] Deshawn Gaffney [facility] 02-11-2022 15:00-0400 Hourly Rounding Ronobir GUZMAN [facility] 02-11-2022 15:00-0400 Promise to Return Ronobir GUZMAN [facility] 02-11-2022 14:00-0400 Body temperature 98.06 [degF] Ronobir GUZMAN [facility] 02-11-2022 14:00-0400 Hourly Rounding Ronobir GUZMAN [facility] 02-11-2022 14:00-0400 Promise to Return Ronobir GUZMAN [facility] 02-11-2022 13:00-0400 Hourly Rounding Ronobir GUZMAN [facility] 02-11-2022 13:00-0400 Promise to Return Ronobir GUZMAN [facility] 02-11-2022 11:27-0400 Blood Pressure Location Ronobir GUZMAN [facility] 02-11-2022 11:27-0400 Body temperature 97.88 [degF] Ronobir GUZMAN [facility] 02-11-2022 11:27-0400 BP/Pulse Patient Position Ronobir GUZMAN [facility] 02-11-2022 11:27-0400 Diastolic blood pressure 71 mm[Hg] Ronobir GUZMAN [facility] 02-11-2022 11:27-0400 Heart rate 60 /min Ronobir GUZMAN [facility] 02-11-2022 11:27-0400 Mean blood pressure 87 mm[Hg] Ronobir GUZMAN [facility] 02-11-2022 11:27-0400 Respiratory rate 18 /min Ronobir GUZMAN [facility] 02-11-2022 11:27-0400 SaO2% (BldA) [Mass fraction] 98 % Ronobir GUZMAN [facility] 02-11-2022 11:27-0400 Systolic blood pressure 119 mm[Hg] Ronobir GUZMAN [facility] 02-11-2022 10:30-0400 Diastolic blood pressure 71 mm[Hg] Ronobir GUZMAN [facility] 02-11-2022 10:30-0400 Heart rate 60 /min Ronobir GUZMAN [facility] 02-11-2022 10:30-0400 Mean blood pressure 87 mm[Hg] Ronobir GUZMAN [facility] 02-11-2022 10:30-0400 Respiratory rate 18 /min Ronobir GUZMAN [facility] 02-11-2022 10:30-0400 Systolic blood pressure 119 mm[Hg] Ronobir GUZMAN [facility] 02-11-2022 08:57-0400 Diastolic blood pressure 67 mm[Hg] Ronobir GUZMAN [facility] 02-11-2022 08:57-0400 Systolic blood pressure 127 mm[Hg] Ronobir GUZMAN [facility] 02-11-2022 07:50-0400 SaO2% (BldA) [Mass fraction] 95 % Ronobir GUZMAN [facility] 02-11-2022 07:40-0400 Body temperature 98.24 [degF] Ronobir GUZMAN [facility] 02-11-2022 07:40-0400 Heart rate 60 /min Ronobir GUZMAN [facility] 02-11-2022 07:40-0400 Mean blood pressure 87 mm[Hg] Ronobir GUZMAN [facility] 02-11-2022 07:40-0400 Respiratory rate 18 /min Ronobir GUZMAN [facility] 02-11-2022 07:40-0400 SaO2% (BldA) [Mass fraction] 96 % Ronobir GUZMAN [facility] 02-11-2022 07:00-0400 gluc 75 mg/dL Ronobir GUZMAN [facility] 02-11-2022 02:14-0400 Heart rate 61 /min Ronobir GUZMAN [facility] 02-11-2022 02:14-0400 Mean blood pressure 78 mm[Hg] Ronobir GUZMAN [facility] 02-10-2022 21:38-0400 gluc 97 mg/dL Ronobir GUZMAN [facility] 02-10-2022 21:38-0400 Heart rate 60 /min Ronobir GUZMAN [facility] 02-10-2022 19:41-0400 Mean blood pressure 74 mm[Hg] Ronobir GUZMAN [facility] 02-09-2022 04:00-0400 Respiratory rate 16 /min Ronobir GUZMAN [facility] 02-09-2022 00:30-0400 Respiratory rate 11 /min Ronobir GUZMAN [facility] 02-08-2022 23:16-0400 Respiratory rate 13 /min Ronobir GUZMAN [facility] 02-02-2022 16:00-0400 Diastolic blood pressure 77 mm[Hg] Cayden Rosee [facility] 02-02-2022 16:00-0400 Mean blood pressure 95 mm[Hg] Cayden Rosee [facility] 02-02-2022 16:00-0400 SaO2% (BldA) [Mass fraction] 99 % Cayden Rosee [facility] 02-02-2022 16:00-0400 Systolic blood pressure 131 mm[Hg] Cayden Rosee [facility] 02-02-2022 15:00-0400 Diastolic blood pressure 65 mm[Hg] Cayden Zina [facility] 02-02-2022 15:00-0400 Mean blood pressure 85 mm[Hg] Cayden Zina [facility] 02-02-2022 15:00-0400 Respiratory rate 14 /min Cayden Izaguirre [facility] 02-02-2022 15:00-0400 Systolic blood pressure 124 mm[Hg] Cayden Rosee [facility] 02-02-2022 14:00-0400 Diastolic blood pressure 91 mm[Hg] Cayden Rosee [facility] 02-02-2022 14:00-0400 Mean blood pressure 99 mm[Hg] Cayden Rosee [facility] 02-02-2022 14:00-0400 Respiratory rate 13 /min Cayden Rosee [facility] 02-02-2022 14:00-0400 SaO2% (BldA) [Mass fraction] 98 % Cayden Rosee [facility] 02-02-2022 14:00-0400 Systolic blood pressure 116 mm[Hg] Cayden Rosee [facility] 02-02-2022 12:24-0400 Body temperature 98.06 [degF] Cayden Rosee [facility] 02-02-2022 12:24-0400 Heart rate 60 /min Cayden Rosee [facility] 02-02-2022 12:24-0400 Respiratory rate 16 /min Cayden Rosee [facility] 01-16-2022 15:00-0400 Body height 177.8 cm Janusz Ruiz Other [employer] Other 01-16-2022 15:00-0400 Body mass index (BMI) [Ratio] 32.48 kg/m2 Janusz Ruiz Other [employer] Other 01-16-2022 15:00-0400 Body temperature 97.2 [degF] Janusz Ruiz Other [employer] Other 01-16-2022 15:00-0400 Body weight 102.7 kg Janusz Ruiz Other [employer] Other 01-16-2022 15:00-0400 Diastolic blood pressure 54 mm[Hg] Janusz Ruiz Other [employer] Other 01-16-2022 15:00-0400 Respiratory rate 18 /min Janusz Ruiz Other [employer] Other 01-16-2022 15:00-0400 SaO2% (BldA) [Mass fraction] 96 % Janusz Ruiz Other [employer] Other 01-16-2022 15:00-0400 Systolic blood pressure 123 mm[Hg] Janusz Ruiz Other [employer] Other 2021 20:00-0400 Body temperature 98.24 [degF] Cayden Rosee [facility] 2021 20:00-0400 Diastolic blood pressure 67 mm[Hg] Cayden Zina [facility] 2021 20:00-0400 Mean blood pressure 91 mm[Hg] Cayden Zina [facility] 2021 20:00-0400 Respiratory rate 15 /min Cayden Zina [facility] 2021 20:00-0400 Systolic blood pressure 140 mm[Hg] Cayden Zina [facility] 2021 19:00-0400 Body temperature 98.6 [degF] Cayden Zina [facility] 2021 19:00-0400 Diastolic blood pressure 57 mm[Hg] Cayden Zina [facility] 2021 19:00-0400 Heart rate 56 /min Cayden Zina [facility] 2021 19:00-0400 Mean blood pressure 84 mm[Hg] Cayden Zina [facility] 2021 19:00-0400 Respiratory rate 16 /min Cayden Zina [facility] 2021 19:00-0400 Systolic blood pressure 139 mm[Hg] Cayden Zina [facility] 2021 18:30-0400 Diastolic blood pressure 69 mm[Hg] Cayden Zina [facility] 2021 18:30-0400 Heart rate 60 /min Cayden Zina [facility] 2021 18:30-0400 Mean blood pressure 89 mm[Hg] Cayden Zina [facility] 2021 18:30-0400 Respiratory rate 18 /min Cayden Zina [facility] 2021 18:30-0400 SaO2% (BldA) [Mass fraction] 96 % Cayden Zina [facility] 2021 18:30-0400 Systolic blood pressure 128 mm[Hg] Cayden Zina [facility] 2021 17:30-0400 Respiratory rate 18 /min Cayden Zina [facility] 2021 15:30-0400 Heart rate 63 /min Cayden Zina [facility] 2021 15:21-0400 Body temperature 99.14 [degF] Cayden Izaguirre [facility] 12-15-2021 11:14-0400 Body height 172.72 cm Mona M Olivia Work Phone: [facility] [address] DO Work Phone: 12-15-2021 11:14-0400 Body mass index (BMI) [Ratio] Medical Reason Not Done Mona M Olivia Work Phone: [facility] DO Work Phone: 12-15-2021 11:14-0400 Diastolic blood pressure 58 mm[Hg] Mona M Olivia Work Phone: [facility] DO Work Phone: 12-15-2021 11:14-0400 Heart rate 60 /min Mona M Olivia Work Phone: [facility] DO Work Phone: 12-15-2021 11:14-0400 Systolic blood pressure 100 mm[Hg] Mona M Olivia Work Phone: [facility] DO Work Phone: 12-15-2021 11:14-0400 11 1 Mona M Olivia Work Phone: [facility] DO Work Phone: Comment on above: [id number] TS 11-07-2021 00:00-0400 60 1 Mona M Olivia Work Phone: [facility] DO Work Phone: Comment on above: FSLDL 10-19-2021 15:35-0400 Hourly Rounding Hasshantell AMIR [facility] 10-19-2021 15:35-0400 Promise to Return Hasan AMIR [facility] 10-19-2021 14:42-0400 Hourly Rounding Hasan AMIR [facility] 10-19-2021 14:42-0400 Promise to Return Hasan AMIR [facility] 10-19-2021 14:10-0400 gluc 269 mg/dL Hasan AMIR [facility] 10-19-2021 11:31-0400 Blood Pressure Location Hasan AMIR [facility] 10-19-2021 11:31-0400 Body temperature 98.06 [degF] Hasan AMIR [facility] 10-19-2021 11:31-0400 BP/Pulse Patient Position Hasan AMIR [facility] 10-19-2021 11:31-0400 Diastolic blood pressure 74 mm[Hg] Hasan AMIR [facility] 10-19-2021 11:31-0400 Heart rate 61 /min Hasan AMIR [facility] 10-19-2021 11:31-0400 Mean blood pressure 95 mm[Hg] Hasan AMIR [facility] 10-19-2021 11:31-0400 SaO2% (BldA) [Mass fraction] 97 % Hasan AMIR [facility] 10-19-2021 11:31-0400 Systolic blood pressure 136 mm[Hg] Hasan AMIR [facility] 10-19-2021 08:27-0400 Diastolic blood pressure 82 mm[Hg] Hasan AMIR [facility] 10-19-2021 08:27-0400 Systolic blood pressure 136 mm[Hg] Hasan AMIR [facility] 10-19-2021 08:12-0400 Blood Pressure Location Hasan AMIR [facility] 10-19-2021 08:12-0400 Body temperature 97.52 [degF] Hasan AMIR [facility] 10-19-2021 08:12-0400 BP/Pulse Patient Position Hasan AMIR [facility] 10-19-2021 08:12-0400 Diastolic blood pressure 67 mm[Hg] Hasan AMIR [facility] 10-19-2021 08:12-0400 Heart rate 60 /min Hasan AMIR [facility] 10-19-2021 08:12-0400 Mean blood pressure 87 mm[Hg] Hasan AMIR [facility] 10-19-2021 08:12-0400 Respiratory rate 16 /min Hasan AMIR [facility] 10-19-2021 08:12-0400 SaO2% (BldA) [Mass fraction] 97 % Hasan AMIR [facility] 10-19-2021 08:12-0400 Systolic blood pressure 129 mm[Hg] Hasan AMIR [facility] 10-19-2021 01:00-0400 Blood Pressure Location Hasan AMIR [facility] 10-19-2021 01:00-0400 Body temperature 98.24 [degF] Hasan AMIR [facility] 10-19-2021 01:00-0400 BP/Pulse Patient Position Hasan AMIR [facility] 10-19-2021 01:00-0400 Heart rate 60 /min Hasan AMIR [facility] 10-19-2021 01:00-0400 Mean blood pressure 88 mm[Hg] Hasan AMIR [facility] 10-19-2021 01:00-0400 Respiratory rate 18 /min Hasan AMIR [facility] 10-19-2021 01:00-0400 SaO2% (BldA) [Mass fraction] 96 % Hasan AMIR [facility] 10-18-2021 20:00-0400 gluc 224 mg/dL Hasan AMIR [facility] 10-18-2021 19:31-0400 Mean blood pressure 87 mm[Hg] Hasan AMIR [facility] 10-18-2021 19:00-0400 Heart rate 65 /min Hasan AMIR [facility] 10-18-2021 07:00-0400 gluc 255 mg/dL Hasan AMIR [facility] 10-18-2021 03:00-0400 Mean blood pressure 86 mm[Hg] Hasan AMIR [facility] 10-16-2021 19:00-0400 Mean blood pressure 94 mm[Hg] Hasan AMIR [facility] 10-14-2021 19:47-0400 Heart rate 60 /min Hasan AMIR [facility] 10-14-2021 16:28-0400 Heart rate 60 /min Hasan AMIR [facility] 10-13-2021 13:46-0400 Hourly Rounding Ronobir GUZMAN [facility] 10-13-2021 13:46-0400 Promise to Return Ronobir GUZMAN [facility] 10-13-2021 12:41-0400 Hourly Rounding Ronobir GUZMAN [facility] 10-13-2021 12:41-0400 Promise to Return Ronobir GUZMAN [facility] 10-13-2021 11:06-0400 Body temperature 98.42 [degF] Ronobir GUZMNA [facility] 10-13-2021 11:06-0400 Diastolic blood pressure 67 mm[Hg] Ronobir GUZMAN [facility] 10-13-2021 11:06-0400 Heart rate 59 /min Ronobir UGZMAN [facility] 10-13-2021 11:06-0400 Mean blood pressure 90 mm[Hg] Ronobir GUZMAN [facility] 10-13-2021 11:06-0400 SaO2% (BldA) [Mass fraction] 94 % Ronobir GUZMAN [facility] 10-13-2021 11:06-0400 Systolic blood pressure 138 mm[Hg] Ronobir GUZMAN [facility] 10-13-2021 08:25-0400 gluc 170 mg/dL Ronobir GUZMAN [facility] 10-13-2021 08:19-0400 Diastolic blood pressure 69 mm[Hg] Ronobir GUZMAN [facility] 10-13-2021 08:19-0400 Systolic blood pressure 129 mm[Hg] Ronobir GUZMAN [facility] 10-13-2021 08:11-0400 Heart rate 61 /min Ronobir GUZMAN [facility] 10-13-2021 08:11-0400 Respiratory rate 18 /min Ronobir GUZMAN [facility] 10-13-2021 08:06-0400 Heart rate 60 /min Ronobir GUZMAN [facility] 10-13-2021 08:06-0400 Respiratory rate 18 /min Ronobir GUZMAN [facility] 10-13-2021 07:21-0400 Blood Pressure Location Ronobir GUZMAN [facility] 10-13-2021 07:21-0400 Body temperature 98.06 [degF] Ronobir GUZMAN [facility] 10-13-2021 07:21-0400 BP/Pulse Patient Position Ronobir GUZMAN [facility] 10-13-2021 07:21-0400 Diastolic blood pressure 69 mm[Hg] Ronobir GUZMAN [facility] 10-13-2021 07:21-0400 Mean blood pressure 89 mm[Hg] Ronobir GUZMAN [facility] 10-13-2021 07:21-0400 Respiratory rate 18 /min Ronobir GUZMAN [facility] 10-13-2021 07:21-0400 SaO2% (BldA) [Mass fraction] 95 % Ronobir GUZMAN [facility] 10-13-2021 07:21-0400 Systolic blood pressure 129 mm[Hg] Ronobir GUZMAN [facility] 10-13-2021 04:00-0400 Body temperature 97.88 [degF] Ronobir GUZMAN [facility] 10-12-2021 20:29-0400 gluc 249 mg/dL Ronobir GUZMAN [facility] 10-12-2021 17:50-0400 Mean blood pressure 80 mm[Hg] Ronobir GUZMAN [facility] 10-12-2021 11:51-0400 Body temperature 97.16 [degF] Ronobir GUZMAN [facility] 10-12-2021 07:51-0400 Blood Pressure Location Ronobir GUZMAN [facility] 10-12-2021 07:51-0400 BP/Pulse Patient Position Ronobir GUZMAN [facility] 10-12-2021 07:51-0400 Mean blood pressure 98 mm[Hg] Ronobir GUZMAN [facility] 10-11-2021 16:06-0400 Blood Pressure Location Ronobir GUZMAN [facility] 10-11-2021 16:06-0400 BP/Pulse Patient Position Ronobir GUZMAN [facility] 10-11-2021 00:18-0400 Mean blood pressure 80 mm[Hg] Ronobir GUZMAN [facility] 10-10-2021 20:54-0400 gluc 194 mg/dL Ronobir GUZMAN [facility] 10-10-2021 19:00-0400 Mean blood pressure 74 mm[Hg] Ronobir GUZMAN [facility] 10-08-2021 08:27-0400 Heart rate 64 /min Ronobir GUZMAN [facility] 10-07-2021 04:15-0400 Heart rate 60 /min Ronobir GUZMAN [facility] 10-07-2021 00:36-0400 Heart rate 60 /min Ronobir GUZMAN [facility] 10-06-2021 18:03-0400 SaO2% (BldA) [Mass fraction] 93.3 % Ronobir GUZMAN [facility] Resp Auto SS 09-27-2021 13:05-0400 Body height 172.7 cm Upsylvain Lobo MD Work Phone: [facility] 09-27-2021 13:05-0400 Diastolic blood pressure 73 mm[Hg] Ye Lobo MD Work Phone: [facility] 09-27-2021 13:05-0400 Heart rate 60 /min Upsylvain Lobo MD Work Phone: [facility] 09-27-2021 13:05-0400 Respiratory rate 16 /min Ye Lobo MD Work Phone: [facility] 09-27-2021 13:05-0400 SaO2% (BldA) [Mass fraction] 94 % Ye Lobo MD Work Phone: [facility] 09-27-2021 13:05-0400 Systolic blood pressure 144 mm[Hg] Ye Lobo MD Work Phone: [facility] 08-16-2021 12:32-0400 Diastolic blood pressure 60 mm[Hg] Mona M Olivia Work Phone: [facility] 600 DO Work Phone: 08-16-2021 12:32-0400 Systolic blood pressure 105 mm[Hg] Mona M Olivia Work Phone: [facility] 600 DO Work Phone: 08-16-2021 12:11-0400 Body height 175.26 cm Mona M Olivia Work Phone: [facility] 600 DO Work Phone: 08-16-2021 12:11-0400 Body mass index (BMI) [Ratio] 34.56 kg/m2 Mona M Olivia Work Phone: [facility] 600 DO Work Phone: 08-16-2021 12:11-0400 Body surface area Derived from formula 2.21 m2 Mona M Olivia Work Phone: [facility] [address] DO Work Phone: 08-16-2021 12:11-0400 Body weight 106.14 kg Mona M Olivia Work Phone: [facility] DO Work Phone: 08-16-2021 12:11-0400 Diastolic blood pressure 74 mm[Hg] Mona M Olivia Work Phone: [facility] [address] DO Work Phone: 08-16-2021 12:11-0400 Heart rate 60 /min Mona M Olivia Work Phone: [facility] DO Work Phone: 08-16-2021 12:11-0400 Systolic blood pressure 140 mm[Hg] Mona M Olivia Work Phone: [facility] [address] DO Work Phone: 08-05-2021 13:23-0500 Body height 175.26 cm Mona M Olivia Work Phone: [facility] [address] DO Work Phone: 08-05-2021 13:23-0500 Body mass index (BMI) [Ratio] 33.37 kg/m2 Mona M Olivia Work Phone: [facility] 600 DO Work Phone: 08-05-2021 13:23-0500 Body surface area Derived from formula 2.18 m2 Mona M Olivia Work Phone: [facility] 600 DO Work Phone: 08-05-2021 13:23-0500 Body weight 102.51 kg Mona M Olivia Work Phone: [facility] 600 DO Work Phone: 08-05-2021 13:23-0500 Diastolic blood pressure 65 mm[Hg] Mona M Olivia Work Phone: [facility] 600 DO Work Phone: 08-05-2021 13:23-0500 Heart rate 60 /min Mona M Olivia Work Phone: [facility] 600 DO Work Phone: 08-05-2021 13:23-0500 Systolic blood pressure 134 mm[Hg] Mona M Olivia Work Phone: [facility] [address] DO Work Phone: 07-19-2021 11:11-0500 40 1 Mnoa M Olivia Work Phone: [facility] 250 DO Work Phone: Comment on above: [id number] 06-29-2021 11:08-0500 Body height 175.26 cm Mona M Olivia Work Phone: [facility] 600 DO Work Phone: 06-29-2021 11:08-0500 Body mass index (BMI) [Ratio] 35.15 kg/m2 Mona M Olivia Work Phone: [facility] 600 DO Work Phone: 06-29-2021 11:08-0500 Body surface area Derived from formula 2.22 m2 Mona M Olivia Work Phone: [facility] 600 DO Work Phone: 06-29-2021 11:08-0500 Body weight 107.96 kg Omna M Olivia Work Phone: [facility] 600 DO Work Phone: 06-29-2021 11:08-0500 Diastolic blood pressure 76 mm[Hg] Mona M Olivia Work Phone: [facility] 600 DO Work Phone: 06-29-2021 11:08-0500 Heart rate 93 /min Mona M Olivia Work Phone: [facility] 600 DO Work Phone: 06-29-2021 11:08-0500 Systolic blood pressure 118 mm[Hg] Mona M Olivia Work Phone: [facility] 600 DO Work Phone: 06-21-2021 12:27-0500 Body height 172.7 cm Ye Lobo MD Work Phone: [facility] 06-21-2021 12:27-0500 Body mass index (BMI) [Ratio] 35.61 kg/m2 Ye Lobo MD Work Phone: [facility] 06-21-2021 12:27-0500 Body weight 106.23 kg Ye Lobo MD Work Phone: [facility] 06-21-2021 12:27-0500 Diastolic blood pressure 67 mm[Hg] Ye Lobo MD Work Phone: [facility] 06-21-2021 12:27-0500 Heart rate 95 /min Upsylvain Lobo MD Work Phone: [facility] 06-21-2021 12:27-0500 Respiratory rate 16 /min Upsylvain Lobo MD Work Phone: [facility] 06-21-2021 12:27-0500 SaO2% (BldA) [Mass fraction] 91 % Upsylvain Lobo MD Work Phone: [facility] 06-21-2021 12:27-0500 Systolic blood pressure 119 mm[Hg] Upsylvain Lobo MD Work Phone: [facility] 05-10-2021 09:44-0500 66 1 Mona M Olivia Work Phone: [facility] [place] Work Phone: Comment on above: FSL 05-05-2021 11:38-0500 Body height 172.72 cm Mona M Olivia Work Phone: [facility] [place] Work Phone: 05-05-2021 11:38-0500 Body mass index (BMI) [Ratio] 35.94 kg/m2 Mona M Olivia Work Phone: [facility] [place] Work Phone: 05-05-2021 11:38-0500 Body surface area Derived from formula 2.19 m2 Mona M Olivia Work Phone: [facility] [address] [place] Work Phone: 05-05-2021 11:38-0500 Body weight 107.23 kg Mona M Olivia Work Phone: [facility] [address] [place] Work Phone: 05-05-2021 11:38-0500 Diastolic blood pressure 90 mm[Hg] Mona M Olivia Work Phone: [facility] [address] [place] Work Phone: 05-05-2021 11:38-0500 Heart rate 60 /min Mona M Olivia Work Phone: [facility] [place] Work Phone: 05-05-2021 11:38-0500 Systolic blood pressure 150 mm[Hg] Mona M Olivia Work Phone: [facility] [address] [place] Work Phone: 04-27-2021 12:30-0500 31 1 Mona M Olivia Work Phone: [facility] [place] Work Phone: Comment on above: [id number] 03-22-2021 08:24-0400 Body height 172.72 cm Mona M Olivia Work Phone: [facility] [address] DO Work Phone: 03-22-2021 08:24-0400 Body mass index (BMI) [Ratio] 36.8 kg/m2 Mona M Olivia Work Phone: [facility] [address] DO Work Phone: 03-22-2021 08:24-0400 Body surface area Derived from formula 2.22 m2 Mona M Olivia Work Phone: [facility] DO Work Phone: 03-22-2021 08:24-0400 Body weight 109.77 kg Mona M Olivia Work Phone: [facility] [address] DO Work Phone: 03-22-2021 08:24-0400 Diastolic blood pressure 64 mm[Hg] Mona M Olivia Work Phone: [facility] [address] DO Work Phone: 03-22-2021 08:24-0400 Heart rate 80 /min Mona Madrigalgles Work Phone: [facility] DO Work Phone: 03-22-2021 08:24-0400 Systolic blood pressure 126 mm[Hg] Mona Madrigalgles Work Phone: [facility] DO Work Phone: 03-15-2021 13:59-0400 Diastolic blood pressure 70 mm[Hg] Mona Madrigalgles Work Phone: [facility] [place] Work Phone: 03-15-2021 13:59-0400 Systolic blood pressure 100 mm[Hg] Mona Madrigalgles Work Phone: [facility] DO Work Phone: 03-15-2021 13:58-0400 Body height 172.72 cm Mona Madrigalgles Work Phone: [facility] DO Work Phone: 03-15-2021 13:58-0400 Body mass index (BMI) [Ratio] 35.73 kg/m2 Mona Madrigalgles Work Phone: [facility] DO Work Phone: 03-15-2021 13:58-0400 Body surface area Derived from formula 2.19 m2 Mona Madrigalgles Work Phone: [facility] DO Work Phone: 03-15-2021 13:58-0400 Body temperature 98.7 [degF] Mona Madrigalgles Work Phone: [facility] DO Work Phone: 03-15-2021 13:58-0400 Body weight 106.6 kg Mona M Olivia Work Phone: [facility] DO Work Phone: 03-15-2021 13:58-0400 Diastolic blood pressure 78 mm[Hg] Mona M Olivia Work Phone: [facility] DO Work Phone: 03-15-2021 13:58-0400 Heart rate 100 /min Mona M Olivia Work Phone: [facility] DO Work Phone: 03-15-2021 13:58-0400 Systolic blood pressure 118 mm[Hg] Mona M Olivia Work Phone: [facility] DO Work Phone: 03-15-2021 13:48-0400 Diastolic blood pressure 70 mm[Hg] Mona M Olivia Work Phone: [facility] DO Work Phone: 03-15-2021 13:48-0400 Systolic blood pressure 100 mm[Hg] Mona M Olivia Work Phone: [facility] DO Work Phone: 03-15-2021 13:39-0400 Body height 172.72 cm Mona M Olivia Work Phone: [facility] DO Work Phone: 03-15-2021 13:39-0400 Body mass index (BMI) [Ratio] 35.73 kg/m2 Mona M Olivia Work Phone: [facility] DO Work Phone: 03-15-2021 13:39-0400 Body surface area Derived from formula 2.19 m2 Mona Ward Olivia Work Phone: [facility] DO Work Phone: 03-15-2021 13:39-0400 Body temperature 98.7 [degF] Mona M Olivia Work Phone: [facility] DO Work Phone: 03-15-2021 13:39-0400 Body weight 106.6 kg Mona M Olivia Work Phone: [facility] DO Work Phone: 03-15-2021 13:39-0400 Diastolic blood pressure 78 mm[Hg] Mona Ed Olivia Work Phone: [facility] DO Work Phone: 03-15-2021 13:39-0400 Heart rate 100 /min Mona M Olivia Work Phone: [facility] DO Work Phone: 03-15-2021 13:39-0400 Systolic blood pressure 118 mm[Hg] Mona M Olivia Work Phone: [facility] DO Work Phone: 02-09-2021 14:57-0400 72 1 Felipa Milligan MD Work Phone: [facility] DO Work Phone: Comment on above: FSLDL Encounters Encounter Date Encounter Type Care Provider Facility Start: 03-12-2024 End: 03-12-2024 Anna flowsamparo LAU Work Phone: [facility] Start: 03-12-2024 End: 03-12-2024 Raduo flowsamparo LAU Work Phone: [facility] Start: 03-12-2024 End: 03-12-2024 Office outpatient visit 25 minutes Chayo LAU Work Phone: [facility] Comment on above: Parkinson's disease with dyskinesia and fluctuating manifestations (CMS/HCC) (Primary Dx); Cognitive impairment; History of stroke; Obstructive sleep apnea, adult; Left foot drop; Mild Lewy body dementia without behavioral disturbance, psychotic disturbance, mood disturbance, or anxiety (CMS/HCC) Start: 03-12-2024 End: 03-12-2024 ambulatory CHAYO FERNANDEZ Not Available Start: 03-06-2024 End: 03-06-2024 ambulatory MONA BAKER Not Available Start: 03-06-2024 End: 03-06-2024 Transitional care manage srvc 7 day discharge Mona Baker MD Work Phone: [facility] Comment on above: Hospital discharge [...] and management of inpatient MD Paul Samaniego Facility:[facility] Start: 03-02-2024 Emergency department patient visit Annemarie Nicholsonshashi Facility:[facility] Start: 03-02-2024 End: 03-04-2024 Evaluation and management of inpatient Paul Samaniego [facility] Start: 02-15-2024 End: 02-15-2024 ambulatory XXXX NONE Facility:[facility] Start: 02-06-2024 ambulatory Nicolás Jaffe y:[facility] Start: 02-05-2024 End: 02-05-2024 ambulatory Andi WARE Facility:[facility] Start: 02-05-2024 End: 02-05-2024 Patient encounter procedure Andi R MIGUELINA [facility] Start: 01-29-2024 End: 01-29-2024 Office outpatient visit 15 minutes Ye Lobo MD Work Phone: [facility] Comment on above: Bipolar 1 disorder, manic, full remission (HCC) (Primary Dx); Long-term use of high-risk medication; Generalized anxiety disorder Start: 01-29-2024 End: 01-29-2024 ambulatory [facility] Start: 01-29-2024 End: 01-29-2024 Telemedicine consultation with patient Ye Lobo MD Work Phone: [facility] Comment on above: Generalized anxiety disorder (Primary Dx) Start: 01-23-2024 End: 01-23-2024 ambulatory Nicolás Diggs Facility:[facility] Start: 01-23-2024 End: 01-23-2024 Patient encounter procedure [facility] [place] Start: 01-10-2024 End: 01-10-2024 ambulatory Felipa Milligan Facility:[facility] Start: 01-10-2024 End: 01-10-2024 Patient encounter procedure Felipa Milligan [facility] [place] Start: 01-03-2024 End: 01-03-2024 ambulatory MD Mona Baker Work Phone: [facility] Work Phone: Start: 01-03-2024 End: 01-03-2024 Patient encounter procedure MD Mona Baker Work Phone: [facility] Work Phone: Start: 12-27-2023 End: 12-27-2023 ambulatory Nicolás Diggs Facility:[facility] Start: 12-27-2023 End: 12-27-2023 Patient encounter procedure Nicolás Diggs [facility] [place] Start: 12-20-2023 End: 12-20-2023 ambulatory Nicolás Diggs Facility:[facility] Start: 12-20-2023 End: 12-20-2023 Patient encounter procedure Nicolás Diggs [facility] [place] Start: 12-05-2023 End: 12-05-2023 ambulatory XXXX NONE Facility:[facility] Start: 12-05-2023 End: 12-05-2023 Patient encounter procedure Nicolás Diggs [facility] [place] Start: 11-26-2023 End: 11-26-2023 ambulatory MD Mona Baker Work Phone: [facility] Work Phone: Start: 11-26-2023 End: 11-26-2023 Patient encounter procedure MD Mona Baker Work Phone: [facility] Infectious Disease Work Phone: Start: 11-22-2023 End: 11-22-2023 ambulatory Armani Yarbrough Facility:[facility] Start: 11-22-2023 End: 11-22-2023 Patient encounter procedure Armani Yarbrough [facility] [place] Start: 11-21-2023 End: 11-21-2023 ambulatory MICAELA TIWARI Not Available Start: 11-16-2023 ambulatory ACNP January Turcios lity:[facility] Start: 11-15-2023 End: 11-15-2023 ambulatory Armani Yarbrough Facility:[facility] Start: 11-15-2023 End: 11-15-2023 Patient encounter procedure Armani Yarbrough [facility] [place] Start: 11-12-2023 End: 11-12-2023 ambulatory MONA BAKER Not Available Start: 11-08-2023 End: 11-08-2023 ambulatory MD Mona Baker Work Phone: [facility] Work Phone: Start: 11-08-2023 End: 11-08-2023 Departed Referred MD Mona Baker Work Phone: [facility] Start: 10-31-2023 End: 10-31-2023 ambulatory Armani Yarbrough Facility:[facility] Start: 10-31-2023 End: 10-31-2023 Patient encounter procedure Armani Yarbrough [facility] [place] Start: 10-30-2023 End: 10-30-2023 Office outpatient visit 25 minutes Ye Lobo MD Work Phone: [facility] Comment on above: Bipolar 1 disorder, manic, full remission (HCC) (Primary Dx); Generalized anxiety disorder; Long-term use of high-risk medication Start: 10-30-2023 End: 10-30-2023 ambulatory YE LOBO [facility] Start: 10-26-2023 End: 10-26-2023 ambulatory PRINCESS DOS SANTOS Not Available Start: 10-24-2023 End: 10-24-2023 ambulatory Felipa Milligan Facility:[facility] Start: 10-24-2023 End: 10-24-2023 Patient encounter procedure Felipa Milligan [facility] [place] [facility] Start: 10-23-2023 End: 10-23-2023 ambulatory MONA BAKER Not Available Start: 10-18-2023 End: 10-18-2023 Patient encounter procedure MD Mona Baker Work Phone: [facility] Work Phone: Start: 10-17-2023 End: 10-17-2023 Office outpatient visit 25 minutes Felipa Milligan MD Work Phone: [facility] Comment on above: 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 (Primary Dx); Ventricular tachycardia (paroxysmal) (Multi); Ischemic cardiomyopathy; AICD (automatic cardioverter/defibrillator) present; S/P PTCA (percutaneous transluminal coronary angioplasty); Hypertension, essential, benign; Paroxysmal atrial fibrillation (Multi); Mixed hyperlipidemia; High risk medication use; S/P CABG (coronary artery bypass graft); Type 2 diabetes mellitus without complication, unspecified whether senior living insulin use (Multi); Class 1 obesity without serious comorbidity with body mass index (BMI) of 32.0 to 32.9 in adult, unspecified obesity type; Mild dementia without behavioral disturbance, psychotic disturbance, mood disturbance, or anxiety, unspecified dementia type (Multi) Start: 10-17-2023 End: 10-17-2023 ambulatory FELIPA Ward [facility] Ambulatory Start: 10-13-2023 End: 10-13-2023 ambulatory Armani Yarbrough Facility:[facility] Start: 10-13-2023 End: 10-13-2023 Patient encounter procedure Armani Yarbrough [facility] [place] Start: 09-24-2023 End: 09-24-2023 ambulatory PRINCESS DOS SANTOS Not Available Start: 09-12-2023 End: 09-12-2023 ambulatory Mona Baker Facility:[facility] Start: 09-12-2023 End: 09-12-2023 Patient encounter procedure Mona Baker [facility] [place] [facility] Start: 09-12-2023 End: 09-12-2023 ambulatory MONA BAKER Not Available Start: 09-06-2023 Non-patient / Non-visit MD Travon Baker Work Phone: [facility] Gastroenterology Work Phone: Start: 09-06-2023 End: 09-06-2023 Admission to same day surgery center MD Mona Baker Work Phone: [facility]-Digestive Health Work Phone: Start: 09-06-2023 End: 09-06-2023 ambulatory MD Mona Baker Work Phone: [facility] Work Phone: Start: 08-27-2023 End: 08-29-2023 Evaluation and management of inpatient Rosi Mendez [facility] [place] Start: 08-27-2023 End: 08-27-2023 ambulatory MONA BAKER Not Available Start: 08-22-2023 End: 08-22-2023 ambulatory PRINCESS DOS SANTOS Not Available Start: 08-11-2023 End: 08-11-2023 ambulatory Janusz Woods Sara Facility:[facility] Start: 08-11-2023 End: 08-11-2023 Lab Drop off Janusz Woods Blank [facility] [place] Start: 08-11-2023 Non-patient / Non-visit MD Travon Baker Work Phone: [facility] Work Phone: Start: 07-26-2023 End: 07-26-2023 ambulatory Janusz Woods Sara Facility:[facility] Start: 07-26-2023 End: 07-26-2023 Lab Drop off Janusz Woods Blank [facility] [place] [facility] Start: 07-26-2023 Non-patient / Non-visit MD Travon Baker Work Phone: [facility] Work Phone: Start: 07-25-2023 End: 07-25-2023 ambulatory PRINCESS S LEVON Not Available Start: 07-20-2023 ambulatory Andi Caballero ty:BARRY Weaver Start: 07-18-2023 End: 07-18-2023 ambulatory Janusz Ruiz Facility:[facility] Start: 07-18-2023 End: 07-18-2023 Lab Drop off Janusz Ruiz [facility] [place] [facility] Start: 07-18-2023 Non-patient / Non-visit MD Travon Baker Work Phone: [facility] [employer] Work Phone: Start: 07-17-2023 End: 07-17-2023 ambulatory Andi Harshal MIGUELINA Facility:[facility] Start: 07-17-2023 End: 07-17-2023 Patient encounter procedure Andi R MIGUELINA [facility] [place] [facility] Start: 07-16-2023 End: 07-16-2023 ambulatory Janusz Ruiz Other [facility] Other Start: 07-16-2023 Office outpatient vi sit 25 minutes Janusz Ruiz [facility] Start: 06-25-2023 End: 06-25-2023 ambulatory MONA BAKER Not Available Start: 06-20-2023 End: 06-22-2023 ambulatory [facility] Ambulatory Start: 06-17-2023 End: 06-17-2023 Emergency department patient visit MD Mona Baker [facility]-Emergency Room Work Phone: Start: 06-12-2023 End: 06-12-2023 ambulatory Felipa Milligan Facility:[facility] Start: 06-12-2023 End: 06-12-2023 Patient encounter procedure Felipa Milligan [facility] [place] [facility] Start: 05-17-2023 End: 08-17-2023 Pre-admission assessment Felipa Sandovalim [facility] [place] Start: 05-17-2023 End: 05-17-2023 ambulatory Jeremías Mims Facility:[facility] Start: 04-30-2023 End: 04-30-2023 ambulatory MONA BAKER Not Available Start: 04-12-2023 End: 04-12-2023 ambulatory Armani Yarbrough Facility:[facility] Start: 04-12-2023 End: 04-12-2023 Patient encounter procedure Armani Yarbrough [facility] [place] Start: 04-09-2023 End: 04-09-2023 ambulatory Nicolás Diggs Facility:[facility] Start: 04-09-2023 End: 04-09-2023 Patient encounter procedure Nicolás Diggs [facility] [place] Start: 04-04-2023 End: 04-04-2023 Office outpatient visit 25 minutes Felipa Milligan MD Work Phone: [facility] Comment on above: 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; S/P PTCA (percutaneous transluminal coronary angioplasty); Ventricular tachycardia (paroxysmal) (CMS/HCC); AICD (automatic cardioverter/defibrillator) present; Hypertension, essential, benign; Ischemic cardiomyopathy; Paroxysmal atrial fibrillation (CMS/HCC); Mixed hyperlipidemia; Stage 3b chronic kidney disease (CMS/HCC); S/P CABG (coronary artery bypass graft); Transient neurological symptoms; Obstructive sleep apnea, adult Start: 04-04-2023 End: 04-04-2023 ambulatory FELIPA Ward [facility] Ambulatory Start: 03-28-2023 End: 03-28-2023 ambulatory Janusz Ruiz Other [employer] Other Start: 03-28-2023 Telephone encounter Janusz Ruiz [facility] Start: 03-26-2023 End: 03-26-2023 Office outpatient visit 25 minutes Jackie Mcginnis MD Work Phone: [facility] Comment on above: Parkinsonism, unspec ified Parkinsonism type (Primary Dx); Cognitive impairment Start: 03-26-2023 End: 03-26-20[facility] Start: 03-20-2023 End: 03-20-2023 ambulatory [facility] Start: 03-20-2023 End: 03-20-2023 Office outpatient visit 25 minutes Keisha Brambila [employer]OUN[employer] SUPERINTENDANT - [employer]IRELESS WATCHER Work Phone: [facility] Comment on above: Mild dementia withou t behavioral disturbance, psychotic disturbance, mood disturbance, or anxiety, unspecified dementia type (HCC) (Primary Dx); B12 deficiency; Acquired hypothyroidism Start: 03-02-2023 End: 03-02-2023 Patient encounter procedure KEISHA BRAMBILA [facility] Start: 02-20-2023 End: 02-20-2023 ambulatory [facility] Start: 02-20-2023 End: 02-20-2023 Office outpatient new 45 minutes Keisha Brambila FOUNDRY SUPERINTENDANT - WIRELESS WATCHER Work Phone: [facility] Comment on above: Memory loss (Primary Dx); Parkinsonism, unspecified Parkinsonism type; Bipolar disorder, in partial remission, most recent episode mixed (CMS/HCC) (HCC); Polypharmacy Start: 02-15-2023 Telephone encounter Fariba Garner DO Work Phone: [facility] Comment on above: Appointment Start: 02-15-[address] Mona Carvajal Facility: Start: 02-15-2023 End: 02-15-2023 Patient encounter procedure Jeremías Mims [facility] [place] [facility] Start: 01-16-2023 End: 01-16-2023 Patient encounter procedure Andi WARE [facility] [place] [facility] Start: 01-15-2023 End: 01-15-2023 ambulatory Janusz Ruzi Other [employer] Other Start: 01-15-2023 Office outpatient vi sit 25 minutes Janusz Ruiz [facility] Start: 01-08-2023 Rx Renewal Mona Camarillo s Work Phone: [facility] 250 DO Work Phone: Start: 12-13-2022 Telephone encounter Mona saucedo Work Phone: [facility] Work Phone: Start: 12-13-2022 End: 12-13-2022 Patient encounter procedure Andi WARE [facility] [place] [facility] Start: 11-24-2022 End: 11-24-2022 Patient encounter procedure Andi WARE [facility] [place] Start: 11-20-2022 Patient encounter procedure Mona Baker Work Phone: [facility] [address] Work Phone: Start: 11-20-[address] Mona Carvajal Facility:[id number] Start: 11-09-[address] Mona Carvajal Facility: Start: 10-31-2022 End: 10-31-2022 Patient encounter procedure Andi WARE [facility] [place] Start: 09-22-2022 Office outpatient vi sit 40 minutes Mona Baker Work Phone: [facility] DO Work Phone: Start: 09-22-[address] Mona Carvajal Facility: Start: 09-22-2022 End: 09-22-2022 Patient encounter procedure Andi WARE [facility] [place] Start: 09-19-2022 End: 09-20-2022 ambulatory JOHN PAUL PRINCE Facility:H1 Start: 09-04-2022 Chart Update Mona woods Work Phone: [facility] [address] Work Phone: Start: 08-30-2022 Telephone encounter Mona saucedo Work Phone: [id number] 204 Movement Disorders Work Phone: Start: 08-30-[address] Francisco yanez [facility] Facility:[id number] Start: 08-29-2022 End: 08-30-2022 ambulatory [facility] Facility:H1 Start: 08-23-2022 End: 08-23-2022 Patient encounter procedure Andi WARE [facility] Start: 08-22-[address] Mona Carvajal Facility:[id number] Start: 08-18-2022 End: 08-19-2022 ambulatory [facility] Facility:H1 Start: 08-16-2022 End: 08-16-2022 Patient encounter procedure Andi WARE [facility] Start: 08-10-[address] Mona Carvajal Facility:[id number] Start: 08-10-2022 End: 08-10-2022 Patient encounter procedure Jeremías Mims [facility] [place] [facility] Start: 08-09-2022 End: 08-09-2022 Patient encounter procedure Andi WARE [facility] Start: 08-08-2022 End: 08-09-2022 ambulatory [facility] Facility:H1 Start: 08-01-2022 End: 08-02-2022 ambulatory [facility] Facility:H1 Start: 07-31-2022 Office outpatient ne w 45 minutes Mona Baker Work Phone: [id number] [place] [facility] Work Phone: Start: 07-31-2022 Patient encounter procedure Mona Baker Work Phone: [facility]Dqkpqjkyn-Pgqoshqf B 101 DO Work Phone: Start: 07-31-[address] Mona Carvajal Facility:[id number] Start: 07-28-2022 End: 07-29-2022 ambulatory JOHN PAUL ARCHIBALDKEREN Facility:H1 Start: 07-25-2022 End: 07-25-2022 Admission to same day surgery center MD Mona Baker [facility] [place] [facility] [place] Start: 07-25-2022 End: 07-25-2022 ambulatory MD Mona Baker [facility] Work Phone: Start: 07-24-2022 End: 08-16-2022 Pre-admission assessment Andi WARE [facility] Start: 07-17-2022 End: 07-17-2022 ambulatory Janusz Ruiz Other [employer] Other Start: 07-17-2022 Office outpatient vi sit 25 minutes Janusz Ruiz [facility] Start: 07-11-2022 End: 07-11-2022 ambulatory MD Mona Baker [facility] Work Phone: Start: 07-11-2022 End: 07-11-2022 Patient encounter procedure MD Mona Baker [facility] Vpt-Hoz-Aevjiacv Testing Work Phone: Start: 06-02-2022 End: 06-02-2022 Patient encounter procedure Andi WARE [facility] [place] Start: 05-23-2022 End: 05-23-2022 Admission to same day surgery center MD Mona Olivia [facility] [place] Start: 05-23-2022 End: 05-23-2022 ambulatory MD Mona Baker [facility] Work Phone: Start: 05-19-2022 End: 05-19-2022 ambulatory MD Mona Baker [facility] Work Phone: Start: 05-19-2022 End: 05-19-2022 Patient encounter procedure MD Mona Baker [facility] Vmd-Vte-Agiuwokc Testing Start: 05-15-2022 End: 05-15-2022 ambulatory Bill Mcgee Other [facility] Other Start: 05-15-2022 Telephone encounter Bill PLASENCIA [facility] Gastroenter[facility] Start: 05-12-2022 End: 05-14-2022 Evaluation and management of inpatient MD Mona Baker [facility] Start: 05-12-2022 End: 05-14-2022 observation encounter MD Mona Bakre [facility] Work Phone: Start: 05-11-2022 End: 06-23-2022 Pre-admission assessment Felipa Milligan [facility] Start: 05-10-2022 Patient encounter procedure Mona Baker Work Phone: [facility] 250 DO Work Phone: Start: 05-08-2022 End: 05-08-2022 Patient encounter procedure Nicolás Diggs [facility] [place] [facility] Start: 05-02-2022 End: 05-03-2022 ambulatory [facility] Facility: Start: 03-31-2022 End: 03-31-2022 Patient encounter procedure Nicolás Diggs [facility] [place] [facility] Start: 03-24-2022 End: 03-25-2022 ambulatory [facility] Facility:H1 Start: 03-23-2022 End: 03-23-2022 Patient encounter procedure Deshawn Gaffney [facility] Start: 03-15-2022 Office outpatient vi sit 25 minutes Mona Ward Olivia Work Phone: [facility] 600 DO Work Phone: Start: 03-15-2022 ambulatory Felipa [facility] Facility :[id number] Start: 03-10-2022 End: 03-11-2022 ambulatory [facility] Facility:H1 Start: 03-09-2022 End: 03-09-2022 Patient encounter procedure Deshawn Gaffney [facility] Start: 03-03-2022 End: 03-04-2022 ambulatory [facility] Facility:H1 Start: 02-17-2022 End: 02-17-2022 [facility] Start: 02-13-2022 End: 02-13-2022 Off-Site [facility] Start: 02-08-2022 End: 02-11-2022 Observation Gissel HINDS [facility] Start: 02-07-2022 End: 02-14-2022 Pre-admission assessment Nicolás Diggs [facility] Start: 02-02-2022 End: 02-02-2022 Emergency department patient visit Cayden Zina [facility] Start: 01-27-2022 Telephone encounter Mona coopergeorge Work Phone: [facility] 250 DO Work Phone: Start: 01-16-2022 End: 01-16-2022 ambulatory Janusz Ruiz Other [facility] Other Start: 01-16-2022 Office outpatient vi sit 25 minutes Janusz Ruiz [facility] Infectious Disease Start: 01-04-2022 End: 01-04-2022 Patient encounter procedure Mona De Los Santoses [facility] Start: 2021 End: 2021 Emergency department patient visit Cayden Izaguirre [facility] [place] [facility] Start: 2021 Telephone encounter Mona coopergeorge Work Phone: [facility] 250 DO Work Phone: Start: 12-27-2021 End: 12-27-2021 Office outpatient visit 15 minutes Ye Lobo MD Work Phone: [facility] Comment on above: Bipolar 1 disorder, manic, mild (HCC) (Primary Dx); Generalized anxiety disorder; Long-term use of high-risk medication Start: 12-20-2021 Telephone encounter Mona coopergeorge Work Phone: [facility] 250 DO Work Phone: Start: 12-19-2021 End: 01-24-2022 Recurring Felipa Milligan [facility] Start: 12-15-2021 Office outpatient vi sit 40 minutes Mona Baker Work Phone: [facility] 600 DO Work Phone: Start: 12-06-2021 End: 12-06-2021 Patient encounter procedure Mona Baker [facility] Start: 11-29-2021 AUDIT Mona De Los Santose s Work Phone: [facility] 250 DO Work Phone: Start: 11-22-2021 Rx Renewal Mona Madrigalgle s Work Phone: [facility] 250 DO Work Phone: Start: 11-11-2021 End: 11-12-2021 ambulatory [facility] Facility: Start: 11-04-2021 End: 11-05-2021 ambulatory [facility] Facility: Start: 10-28-2021 Rx Renewal Mona De Los Santose s Work Phone: [facility] 250 DO Work Phone: Start: 10-27-2021 End: 10-27-2021 Off-Site [facility] Start: 10-20-2021 End: 10-20-2021 Off-Site [facility] Start: 10-14-2021 End: 10-19-2021 Observation Delvin SANTANA [facility] [place] [facility] Start: 10-11-2021 End: 11-02-2021 Pre-admission assessment Lawson MATHIS [facility] Start: 10-06-2021 End: 10-13-2021 Observation Gissel HINDS [facility] Start: 09-27-2021 End: 09-27-2021 Office outpatient visit 25 minutes Upender Gehlot MD Work Phone: [facility] Comment on above: Bipolar 1 disorder, manic, mild (HCC) (Primary Dx); Generalized anxiety disorder; Long-term use of high-risk medication Start: 09-21-2021 End: 11-08-2021 Pre-admission assessment Felipa Milligan [facility] Start: 09-20-2021 Patient encounter procedure Mona Baker Work Phone: [facility] 600 DO Work Phone: Start: 09-16-2021 End: 12-09-2021 Pre-admission assessment Jeremías Mims [facility] Start: 08-31-2021 End: 08-31-2021 Patient encounter procedure Bess Granadomarcosprincess [facility] Start: 08-16-2021 Office outpatient vi sit 25 minutes Mona De Los Santoses Work Phone: [facility] DO Work Phone: Start: 07-25-2021 Rx Renewal Mona Camarillo s Work Phone: [facility] 250 DO Work Phone: Start: 07-14-2021 End: 10-14-2021 Pre-admission assessment Armani Yarbrough [facility] Start: 06-29-2021 Office outpatient vi sit 25 minutes Mona De Los Santoses Work Phone: [facility] DO Work Phone: Start: 06-29-2021 Patient encounter procedure Mona De Los Santoses Work Phone: [facility] 600 DO Work Phone: Start: 06-21-2021 End: 06-21-2021 Office outpatient visit 25 minutes Upender Yamil BROUSSARD Work Phone: [facility] Comment on above: Bipolar 1 disorder, mixed, mild (HCC) (Primary Dx); Generalized anxiety disorder; Long-term use of high-risk medication Start: 06-17-2021 Patient encounter procedure Mona Baker Work Phone: [facility] [address] [place] Work Phone: Start: 05-26-2021 Patient encounter procedure Mona Baker Work Phone: [facility] [place] Work Phone: Start: [facility] Felipa Milligan, Status: Pen, Time: 1:00 PM Mona Baker Work Phone: [facility] [address] [place] Work Phone: Start: 05-10-2021 Chart Update Mona Camarillo s Work Phone: [facility] [address] [place] Work Phone: Start: 05-05-2021 FUV, Provider: Felipa Milligan, Status: Pen, Time: 11:20 AM Mona Baker Work Phone: [facility] [address] [place] Work Phone: Start: 04-27-2021 Patient encounter procedure Mona Baker Work Phone: [facility] [address] [place] Work Phone: Start: 04-18-2021 Telephone encounter Mona Ed Andrea saucedo Work Phone: [facility] [address] [place] Work Phone: Start: 03-30-2021 Telephone encounter Mona saucedo Work Phone: [facility] 250 [place] Work Phone: Start: 03-22-2021 Patient encounter procedure Mona Madrigalgles Work Phone: [facility] DO Work Phone: Start: 03-16-2021 Telephone encounter Mona saucedo Work Phone: [facility] [facility] DO Work Phone: Start: 03-15-2021 Office outpatient vi sit 25 minutes Mona Baker Work Phone: [facility] 250 DO Work Phone: Start: 03-11-2021 Rx Renewal Felipa Milligan MD Work Phone: [facility] 600 DO Work Phone: Start: 03-10-2021 Rx Renewal Felipa Milligan MD Work Phone: [facility] 250 DO Work Phone: Procedures Date Procedure Procedure Detail Performing Clinician Start: 10-17-2023 ECG 12-LEAD JACKIE KI LBANE Start: 10-17-2023 FOLLOW UP IN CARDIOLOGY JACKIE YANDYBANE Start: 10-17-2023 Ecg routine ecg w/le ast 12 lds w/i&r Felipa Milligan MD Work Phone: Start: 09-06-2023 Colonoscopy MD Mona duong Work Phone: Start: 06-20-2023 HOLTER OR EVENT CARD IAC MONITOR JACKIE KILBANE Start: 06-20-2023 ECG 12-LEAD JACKIE KI LBANE Start: 06-17-2023 Plain chest X-ray MD Bharat Baker Start: 04-04-2023 ECG 12-LEAD JACKIE KI LBANE Start: 04-04-2023 FOLLOW UP IN CARDIOLOGY JACKIE KILBANE Start: 04-04-2023 Ecg routine ecg w/le ast 12 lds w/i&r Felipa Milligan MD Work Phone: Start: 02-23-2023 History of coronary artery bypass grafting S/P CABG (coronary artery bypass graft) Jackie Mcginnis MD Work Phone: Start: 02-20-2023 Adult depression scr eening assessment Keisha Brambila FOUNDRY SUPERINTENDANT - WIRELESS WATCHER Work Phone: Start: 07-25-2022 Circumcision MD Mona [...] 07-30-2029 Screening for malignant neoplasm of colon [facility] Start: 06-12-2024 Urine screening for protein Diabetes: Urine Protein Screening [facility] Start: 06-06-2024 Hemoglobin A1c measurement Diabetes: Hemoglobin A1C [facility] Start: 05-08-2024 End: 05-08-2024 Patient encounter procedure 05/08/2024 11:00 AM EST Office Visit [facility] [address] [place] [phone] Chayo Fernandez PA [address] [place] [address] [facility] Start: 04-15-2024 Screening for malignant neoplasm of colon [facility] Start: 04-03-2024 End: 04-03-2024 Patient encounter procedure 04/03/2024 11:00 AM EDT Office Visit [facility] [address] [place] [address] [place] [phone] Felipa Milligan MD [address] [facility] [address], [place] [address] [place] [address] [facility] Start: 03-12-2024 Echocardiography Echocardiogram [facility] Start: 03-12-2024 End: 03-12-2024 Patient encounter procedure [facility] Comment on above: Arrived Start: 03-06-2024 End: 03-06-2024 Patient encounter procedure 03/06/2024 1:20 PM EDT Office Visit [facility]INDY [facility] [address] [place] [phone] Mona Baker MD [address] [place] [address] [facility] Start: 02-28-2024 Hemoglobin A1c measurement A1C [facility] Start: 02-21-2024 Depression Screening Depression Screening [facility] Start: 02-03-2024 Influenza vaccination Influenza Vaccine (#1) [facility] Start: 01-29-2024 End: 01-29-2024 Telemedicine consultation with patient 01/29/2024 11:00 AM EDT Telemedicine [facility] [address] [place] [address] Ye Lobo MD [address] [address] [facility] Start: 01-17-2024 End: 10-16-2024 Alanine aminotransferase [Enzymatic activity/volume] in Serum or Plasma by With P-5'-P Alanine Aminotransferase Lab Routine 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 Mixed hyperlipidemia Expected: 01/17/2024 (Approximate), Expires: 10/16/2024 [facility] Service Area Work Phone: Comment on above: Expected: 01/17/2024 (Approximate), Expi res: 10/16/2024 Start: 01-17-2024 End: 10-16-2024 Aspartate aminotransferase [Enzymatic activity/volume] in Serum or Plasma by With P-5'-P Aspartate Aminotransferase Lab Routine 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 Mixed hyperlipidemia Expected: 01/17/2024 (Approximate), Expires: 10/16/2024 [facility] Work Phone: Comment on above: Expected: 01/17/2024 (Approximate), Expi res: 10/16/2024 Start: 01-17-2024 End: 10-16-2024 Basic metabolic 2000 panel - Serum or Plasma Basic Metabolic Panel Lab Routine 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 Paroxysmal atrial fibrillation (Multi) High risk medication use Expected: 01/17/2024 (Approximate), Expires: 10/16/2024 [facility] Work Phone: Comment on above: Expected: 01/17/2024 (Approximate), Expi res: 10/16/2024 Start: 01-17-2024 End: 10-16-2024 CBC panel - Blood by Automated count CBC Lab Routine 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 Ischemic cardiomyopathy Paroxysmal atrial fibrillation (Multi) Expected: 01/17/2024 (Approximate), Expires: 10/16/2024 [facility] Work Phone: Comment on above: Expected: 01/17/2024 (Approximate), Expi res: 10/16/2024 Start: 01-17-2024 End: 10-16-2024 Lipid 1996 panel - Serum or Plasma Lipid Panel Lab Routine 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 Mixed hyperlipidemia Expected: 01/17/2024 (Approximate), Expires: 10/16/2024 [facility] Work Phone: Comment on above: Expected: 01/17/2024 (Approximate), Expi res: 10/16/2024 Start: 01-17-2024 End: 10-16-2024 Thyrotropin [Units/volume] in Serum or Plasma Thyroid Stimulating Hormone Lab Routine Paroxysmal atrial fibrillation (Multi) S/P CABG (coronary artery bypass graft) Expected: 01/17/2024 (Approximate), Expires: 10/16/2024 [facility] Work Phone: Comment on above: Expected: 01/17/2024 (Approximate), Expi res: 10/16/2024 Start: 11-28-2023 Hemoglobin A1c measurement Diabetes: Hemoglobin A1C [facility] Start: 11-02-2023 Glaucoma screening [facility] Start: 10-17-2023 End: 10-16-2024 Complete Pulmonary Function Test (Spirometry/DLCO/Lung Volumes) Complete Pulmonary Function Test (Spirometry/DLCO/Lung Volumes) PFT Routine Paroxysmal atrial fibrillation (Multi) High risk medication use Expected: 10/17/2023 (Approximate), Expires: 10/16/2024 [facility] Work Phone: Comment on above: Expected: 10/17/2023 (Approximate), Expi res: 10/16/2024 Start: 10-17-2023 End: 10-17-2023 Patient encounter procedure 10/17/2023 10:40 AM EDT Office Visit [facility] [address] [place] [address] [place] [address] Felipa Milligan MD [address] [place] [address] [place] [address] [facility] Start: 10-01-2023 End: 10-01-2023 Patient encounter procedure 10/01/2023 12:00 PM EDT Office Visit [facility] [address] [facility] [address] [place] [phone] Jackie Mcginnis MD [address] [facility] [address] [place] [address] [place] [address] [facility] Start: 09-06-2023 [facility] Start: 08-21-2023 Depresssion Monitoring Depresssion Monitoring [facility] Start: 07-20-2023 COVID-19 Vaccine ( season) COVID-19 Vaccine ( season) [facility] Start: 06-08-2023 End: 06-08-2023 Patient encounter procedure 06/08/2023 10:45 AM EST Office Visit [facility] [address] [place] [phone] Keisha Brambila, FOUNDRY SUPERINTENDANT - WIRELESS WATCHER [address] [place] [address] [place] [address] [facility] Start: 05-14-2023 Administration of herpes zoster vaccine Zoster Vaccines (2 of 2) [facility] Start: 05-14-2023 COVID-19 Vaccine (6 - Pfizer risk series) COVID-19 Vaccine (6 - Pfizer risk series) [facility] Start: 05-14-2023 COVID-19 Vaccine (6 - Pfizer series) COVID-19 Vaccine (6 - Pfizer series) [facility] Start: 05-14-2023 Zoster Vaccines (2 of 2) Zoster Vaccines (2 of 2) [facility] Start: 04-04-2023 End: 04-04-2023 Patient encounter procedure 04/04/2023 11:30 AM EDT Office Visit [facility] [address] [place] [address] [place] [address] Felipa Milligan MD [address] [facility] [address], [place] [address] [place] [address] [facility] Start: 03-26-2023 FUV, Provider: Jackie Mcginnis, Status: Pen, Time: 1:00 PM FUV, Provider: Jackie Mcginnis, Status: Pen, Time: 1:00 PM RZ-Hauclqorl-Etwyq michelle B 101 Work Phone: Start: 02-20-2023 End: 02-21-2024 CBC panel - Blood by Automated count CBC Lab Routine Memory loss Expected: 02/20/2023 (Approximate), Expires: 02/21/2024 [facility] Work Phone: Comment on above: Expected: 02/20/2023 (Approximate), Expi res: 02/21/2024 Start: 02-20-2023 End: 02-21-2024 Cobalamin (Vitamin B12) [Mass/volume] in Serum or Plasma Vitamin B12 Lab Routine Memory loss Expected: 02/20/2023 (Approximate), Expires: 02/21/2024 [facility] Comment on above: Expected: 02/20/2023 (Approximate), Expi res: 02/21/2024 Start: 02-20-2023 End: 02-21-2024 Comprehensive metabolic 1998 panel - Serum or Plasma Comprehensive metabolic panel Lab Routine Memory loss Expected: 02/20/2023 (Approximate), Expires: 02/21/2024 [facility] Comment on above: Expected: 02/20/2023 (Approximate), Expi res: 02/21/2024 Start: 02-20-2023 End: 02-21-2024 CT Head WO contrast CT head wo IV contrast Imaging Routine Memory loss Expected: 02/20/2023, Expires: 02/21/2024 [facility] Comment on above: Expected: 02/20/2023, Expires: Start: 02-20-2023 End: 02-21-2024 Folate [Mass/volume] in Serum or Plasma Folate Lab Routine Memory loss Expected: 02/20/2023 (Approximate), Expires: 02/21/2024 [facility] Comment on above: Expected: 02/20/2023 (Approximate), Expi res: 02/21/2024 Start: 02-20-2023 End: 02-21-2024 Thyrotropin [Units/volume] in Serum or Plasma TSH Lab Routine Memory loss Expected: 02/20/2023 (Approximate), Expires: 02/21/2024 [facility] Comment on above: Expected: 02/20/2023 (Approximate), Expi res: 02/21/2024 Start: 02-20-2023 End: 02-20-2023 Patient encounter procedure 02/20/2023 1:45 PM EDT Office Visit [facility] [address] [place] [phone] Keisha Brambila, FOUNDRY SUPERINTENDANT - WIRELESS WATCHER [address] [phone] [facility] Start: 02-02-2023 COVID-19 Vaccine ( season) COVID-19 Vaccine ( season) [facility] Start: 02-02-2023 Influenza vaccination Influenza Vaccine (#1) [facility] Start: 11-20-2022 FUV, Provider: Jackie Mcginnis, Status: Pen, Time: 3:00 PM FUV, Provider: Jackie Mcginnis, Status: Pen, Time: 3:00 PM XQ-Cjszgbgtr-Bgygn michelle B 101 DO Work Phone: Start: 09-22-2022 FUV, Provider: Felipa Milligan, Status: Pen, Time: 3:00 PM FUV, Provider: Felipa Milligan, Status: Pen, Time: 3:00 PM GX-Pcatzzlzs-Gktlu michelle B 101 DO Work Phone: Start: 09-22-2022 FUV, Provider: Felipa Milligan, Status: Pen, Time: 11:00 AM FUV, Provider: Felipa Milligan, Status: Pen, Time: 11:00 AM [facility] Work Phone: Start: 07-31-2022 NPV, Provider: Jackie Mcginnis, Status: Pen, Time: 11:30 AM NPV, Provider: Jackie Mcginnis, Status: Pen, Time: 11:30 AM [facility] 250 DO Work Phone: Start: 07-25-2022 End: 07-25-2022 [facility] Start: 06-26-2022 NPV, Provider: Jackie Mcginnis, Status: Pen, Time: 1:00 PM NPV, Provider: Jackie Mcginnis, Status: Pen, Time: 1:00 PM [facility] 600 DO Work Phone: Start: 05-23-2022 [facility] Start: 05-23-2022 [facility] Start: 05-17-2022 Blood chemistry [facility] Start: 05-17-2022 [facility] Start: 05-16-2022 Blood chemistry [facility] Start: 05-16-2022 [facility] Start: 05-15-2022 Blood chemistry [facility] Start: 05-15-2022 [facility] Start: 05-14-2022 Blood chemistry [facility] Start: 05-14-2022 End: 05-14-2022 [facility] Start: 05-13-2022 Blood chemistry [facility] Start: 05-13-2022 [facility] Start: 05-12-2022 Hospital admission [facility] Start: 05-12-2022 Referral to imaging tech [facility] Start: 05-12-2022 [facility] Start: 04-04-2022 End: 04-04-2022 Patient encounter procedure 04/04/2022 Office Visit Psychiatry Ye Lobo MD [address] [facility] [address] [place] [id number] [facility] Start: 02-02-2022 Influenza vaccination Sequential Influenza Vaccine (#1) [facility] Start: 12-27-2021 End: 12-27-2021 Patient encounter procedure 12/27/2021 Office Visit Psychiatry Ye Lobo MD [address] [place] [id number] [facility] Start: 12-15-2021 FUV, Provider: Felipa Milligan, Status: Pen, Time: 10:40 AM FUV, Provider: Felipa Milligan, Status: Pen, Time: 10:40 AM [facility] 600 DO Work Phone: Start: 11-11-2021 History and physical examination, annual for health maintenance Wellness Visit [facility] Start: 09-27-2021 End: 09-27-2021 Patient encounter procedure 09/27/2021 Office Visit Psychiatry Ye Lobo MD [address] [place] [phone] [facility] Start: 09-20-2021 FUV, Provider: Felipa Milligan, Status: Pen, Time: 10:30 AM FUV, Provider: Felipa Milligan, Status: Pen, Time: 10:30 AM [facility] 250 DO Work Phone: Start: 09-13-2021 DTaP/Tdap/Td Vaccines (2 - Td or Tdap) DTaP/Tdap/Td Vaccines (2 - Td or Tdap) [facility] Start: 09-13-2021 Hemoglobin A1c measurement A1C [facility] Start: 09-13-2021 Tetanus vaccination Tetanus: Every 10yrs [facility] Start: 08-16-2021 FUV, Provider: Felipa Milligan, Status: Pen, Time: 11:30 AM FUV, Provider: Felipa Milligan, Status: Pen, Time: 11:30 AM -[facility] 250 DO Work Phone: Start: 08-05-2021 EKG, Provider: RENETTA ALMEIDA ASSISTANT GOLF PROFESSIONAL 1,[id number], Status: Pen, Time: 1:30 PM EKG, Provider: RENETTA ALMEIDA ASSISTANT GOLF PROFESSIONAL 1,[id number], Status: Pen, Time: 1:30 PM -[facility] 250 DO Work Phone: Start: 07-12-2021 FUV, Provider: Jeremías Mims, Status: Pen, Time: 10:30 AM FUV, Provider: Jeremías Mims, Status: Pen, Time: 10:30 AM -[facility] 250 DO Work Phone: Start: 06-29-2021 FUV, Provider: Felipa Milligan, Status: Pen, Time: 10:30 AM FUV, Provider: Felipa Milligan, Status: Pen, Time: 10:30 AM -[facility] [address] [place] Work Phone: Start: 06-20-2021 COVID-19 Vaccine (4 - Booster for Pfizer series) COVID-19 Vaccine (4 - Booster for Pfizer series) [facility] Start: 06-20-2021 COVID-19 Vaccine (6 - Pfizer series) COVID-19 Vaccine (6 - Pfizer series) [facility] Start: 05-05-2021 FUV, Provider: Felipa Milligan, Status: Pen, Time: 11:20 AM FUV, Provider: Felipa Milligan, Status: Pen, Time: 11:20 AM [facility] [address] [place] Work Phone: Start: 05-02-2021 STRESSNUC2, Provider: KEVIN HHVI NUCLEAR 01,[id number], Status: Pen, Time: 12:30 PM STRESSNUC2, Provider: KEVIN HHVI NUCLEAR 01,[id number], Status: Pen, Time: 12:30 PM -[facility] [address] [place] Work Phone: Start: 04-27-2021 STRESSNUC2, Provider: KEVIN HHVI NUCLEAR 01,[id number], Status: Pen, Time: 12:30 PM STRESSNUC2, Provider: KEVIN HHVI NUCLEAR 01,[id number], Status: Pen, Time: 12:30 PM [facility] [address] [place] Work Phone: Start: 03-22-2021 EKG, Provider: RENETTA ALMEIDA ASSISTANT GOLF PROFESSIONAL 1,[id number], Status: Pen, Time: 8:00 AM EKG, Provider: RENETTA ALMEIDA ASSISTANT GOLF PROFESSIONAL 1,[id number], Status: Pen, Time: 8:00 AM [facility] 250 DO Work Phone: Start: 03-15-2021 BPCHECK, Provider: RENETTA ALMEIDA ASSISTANT GOLF PROFESSIONAL 1,[id number], Status: Pen, Time: 1:45 PM BPCHECK, Provider: RENETTA ALMEIDA ASSISTANT GOLF PROFESSIONAL 1,[id number], Status: Pen, Time: 1:45 PM [facility] 250 DO Work Phone: Start: 07-16-2020 Pneumococcal Vaccine: 65+ Years (2 - PCV) Pneumococcal Vaccine: 65+ Years (2 - PCV) [facility] Start: 07-16-2020 Pneumococcal Vaccine: Age 65+ (2 - PCV) Pneumococcal Vaccine: Age 65+ (2 - PCV) [facility] Start: 07-16-2020 Pneumococcal Vaccine: Age 65+ (2 of 2 - PCV) Pneumococcal Vaccine: Age 65+ (2 of 2 - PCV) [facility] Start: 2013 Abdominal aortic aneurysm screening Abdominal Aortic Aneurysm (AAA) Screening [facility] Start: 2013 Fall risk assessment Falls Risk Assessment [facility] Start: 2013 Pneumococcal Vaccine: 65+ Years (1 - PCV) Pneumococcal Vaccine: 65+ Years (1 - PCV) [facility] Start: 2008 Hepatitis B Vaccines (1 of 3 - Risk 3-dose series) Hepatitis B Vaccines (1 of 3 - Risk 3-dose series) [facility] Start: 1998 Administration of herpes zoster vaccine Zoster Vaccines (1 of 2) [facility] Start: 1998 Screening for malignant neoplasm of colon [facility] Start: 1998 Zoster Vaccines (1 of 2) Zoster Vaccines (1 of 2) [facility] Start: 1970 DTaP/Tdap/Td Vaccines (1 - Tdap) DTaP/Tdap/Td Vaccines (1 - Tdap) [facility] Start: 12-31-1967 DTaP/Tdap/Td Vaccines (1 - Tdap) DTaP/Tdap/Td Vaccines (1 - Tdap) [facility] Start: 12-31-1967 Urine screening for protein Diabetes: Urine Protein Screening [facility] Start: 1966 Hepatitis C screening Hepatitis C Screening [facility] Start: 1960 Depression Screening Depression Screening [facility] Start: 1958 Diabetic foot examination [facility] Start: 1958 Glaucoma screening Diabetes: Retinopathy Screening [facility] Start: 1958 Microalbumin measurement, urine, quantitative Urine Microalbumin [facility] Start: 1958 Ophthalmic examination and evaluation Ophthalmology Exam [facility] Start: 1958 Preventive dental service Diabetes: Dental Exam [facility] Start: 1958 Urine screening for protein Urine Microalbumin [facility] Start: 12-31-1951 History and physical examination, annual for health maintenance Wellness Visit [facility] Start: 12-31-1951 Medicare Wellness Visit Medicare Wellness Visit [facility] Start: 07-02-1949 COVID-19 Vaccine (#1) COVID-19 Vaccine (#1) [facility] Start: 1948 Creatinine measurement Creatinine Level [facility] Start: 1948 Hemoglobin A1c measurement [facility] Start: 1948 Lipid panel Lipid Panel [facility] Start: 1948 Medicare Advantage Annual Wellness Visit (AWV) Medicare Advantage Annual Wellness Visit (AWV) [facility] Start: 1948 Medicare Annual Wellness Visit Medicare Annual Wellness Visit (AWV) [facility] Start: 1948 Potassium measurement Potassium Level [facility] Start: 1948 Prostate specific antigen measurement PSA Level [facility] Start: 1948 Screening for malignant neoplasm of colon [facility] Start: 1948 Tetanus vaccination Tetanus: Every 10yrs [facility] Start: 1948 Thyroid stimulating hormone measurement TSH Level [facility] Patient Education [facility] Work Phone: Patient referral [facility] Work Phone: Immunizations Immunization Date Immunization Notes Care Provider Fa cility 02-24-2024 influenza, high dose seasonal, preservative-free Mona Baker MD Work Phone: [facility] 02-24-2024 RSV, recombinant, protein subunit RSVpreF, adjuvant reconstitu, 120mcg/0.5mL, PF (Arexvy) Mona Baker MD Work Phone: [facility] 02-24-2024 zoster vaccine recombinant Mona Baker MD Work Phone: [facility] 03-19-2023 RSV, recombinant, protein subunit RSVpreF, adjuvant reconstitu, 120mcg/0.5mL, PF (Arexvy) Mona Baker MD Work Phone: [facility] 03-19-2023 SARS-COV-2 (COVID-19 ) vaccine, mRNA, spike protein, LNP, PF, 50 mcg/0.5 mL Mona Baker MD Work Phone: [facility] 03-19-2023 zoster vaccine recombinant Mona Baker MD Work Phone: [facility] 03-14-2023 Influenza, High-dose Seasonal, Quadrivalent, Preservative Free Mona Baker MD Work Phone: [facility] 03-14-2023 Pneumococcal Conjuga te PCV 20 Mona Baker MD Work Phone: [facility] 03-14-2023 influenza virus vacc ine, unspecified formulation Ye Lobo MD Work Phone: [facility] 04-03-2022 COVID-19 mRNA Bivale nt Booster (Pfizer) MD Mona Baker [facility] 04-03-2022 Flu vaccine, quadrivalent, high-dose, preservative free, age 65y+ (FLUZONE) Jackie Mcginnis MD Work Phone: [facility] Work Phone: 04-03-2022 influenza virus vacc ine, unspecified formulation Andi WARE [facility] 04-25-2021 Pfizer-BioNTech COVI D-19 Vacc 30 MCG/0.3ML Intramuscular Suspension Mona Baker Work Phone: [facility] 04-11-2021 influenza virus vacc ine, unspecified formulation Andi WARE [facility] 04-11-2021 influenza, injectabl e, quadrivalent, contains preservative Mona Baker Work Phone: [facility] [address] [place] Work Phone: Comment on above: Series: 03-30-2021 Fluzone High-Dose Quadrivalent 0.7 ML Intramuscular Suspension Prefilled Syringe Mona Baker Work Phone: [facility] 600 DO Work Phone: 03-30-2021 influenza virus vacc ine, unspecified formulation Lawson PERERAWOOD [facility] Comment on above: Result Comment: Rout e: Unknown Result Comment: Rout e: Unknown 03-21-2021 Pfizer-BioNTech COVI D-19 Vacc 30 MCG/0.3ML Intramuscular Suspension Mona Baker Work Phone: [facility] Comment on above: Series: 08-26-2020 Pfizer-BioNTech COVI D-19 Vacc 30 MCG/0.3ML Intramuscular Suspension; Translations: [Pfizer-BioNTech COVID-19 Vaccine] Mona Baker Work Phone: [facility] 600 DO Work Phone: Comment on above: Reason for Medicatio n: Prophylaxis Reason for Medicatio n: Prophylaxis 08-11-2020 Pfizer-BioNTech COVI D-19 Vacc 30 MCG/0.3ML Intramuscular Suspension Mona Ward Olivia Work Phone: [facility] Comment on above: Series: 07-29-2020 Pfizer-BioNTech COVI D-19 Vacc 30 MCG/0.3ML Intramuscular Suspension; Translations: [Pfizer-BioNTech COVID-19 Vaccine] Mona Ward Olivia Work Phone: [facility] [address] [place] Work Phone: Comment on above: Series: Reason for Medicatio n: Prophylaxis Reason for Medicatio n: Prophylaxis 03-28-2020 influenza virus vacc ine, unspecified formulation Andi Chroma [facility] 03-28-2020 influenza, high dose seasonal, preservative-free Mona M Olivia Work Phone: [facility] [address] [place] Work Phone: 03-17-2020 influenza virus vacc ine, unspecified formulation Andi Chroma [facility] 03-17-2020 influenza, seasonal, injectable Mona M Olivia Work Phone: [facility] 600 DO Work Phone: 02-25-2020 influenza virus vacc ine, unspecified formulation Felipa Milligan [facility] 02-21-2020 influenza virus vacc ine, unspecified formulation Andi Chroma [facility] 02-21-2020 influenza, high dose seasonal, preservative-free Mona M Olivia Work Phone: [facility] 600 DO Work Phone: 07-16-2019 pneumococcal polysaccharide vaccine, 23 valent Mona Madrigalgles Work Phone: [facility] 600 DO Work Phone: Comment on above: Result Comment: Rout e: Unknown Result Comment: Rout e: Unknown 04-07-2019 influenza, seasonal, injectable, preservative free Mona Baker MD Work Phone: [facility] 03-20-2019 influenza virus vacc ine, unspecified formulation Andi WARE [facility] 03-20-2019 influenza, high dose seasonal, preservative-free Mona Madrigalgles Work Phone: [facility] 600 DO Work Phone: 03-04-2019 influenza virus vacc ine, unspecified formulation Monaandi Madrigalgles Work Phone: [facility] [address] [place] Work Phone: 02-26-2018 influenza virus vacc ine, unspecified formulation Monaandi Madrigalgles Work Phone: [facility] [address] [place] Work Phone: 03-04-2017 influenza, high dose seasonal, preservative-free Mona Madrigalgles Work Phone: [facility] [address] [place] Work Phone: 04-04-2016 influenza virus vacc ine, unspecified formulation Mona Ed MadrigalOlivia Work Phone: [facility] [address] [place] Work Phone: 03-16-2015 influenza virus vacc ine, unspecified formulation Andi WARE [facility] 03-16-2015 influenza, seasonal, injectable Mona M Olivia Work Phone: [facility] 600 DO Work Phone: 03-04-2015 influenza virus vacc ine, unspecified formulation Mona Ward Olivia Work Phone: [facility] [address] [place] Work Phone: 03-04-2014 influenza virus vacc ine, unspecified formulation Mona Ward Olivia Work Phone: [facility] [address] [place] Work Phone: 03-07-2013 influenza, seasonal, injectable Leo Milligan [facility] Comment on above: Early/Late Reason: N ursing Judgment Early/Late Reason: N ursing Judgment 03-04-2012 influenza virus vacc ine, unspecified formulation Mona Madrigalgles Work Phone: [facility] [address] [place] Work Phone: 09-14-2011 tetanus toxoid, redu kelsea diphtheria toxoid, and acellular pertussis vaccine, adsorbed Leo Milligan [facility] 06-04-2011 tetanus toxoid, adsorbed Travon Madrigalgles Work Phone: [facility] [address] [place] Work Phone: 03-04-2011 influenza, high dose seasonal, preservative-free Jackie Mcginnis MD Work Phone: [facility] Work Phone: 03-04-2010 influenza, high dose seasonal, preservative-free Jackie Mcginnis MD Work Phone: [facility] Work Phone: 04-24-2009 novel influenza-H1N1 -09, preservative-free, injectable Mona Ward Olivia Work Phone: [facility] 600 DO Work Phone: 06-04-2008 pneumococcal polysaccharide vaccine, 23 valent Mona Baker Work Phone: [facility] [address] [place] Work Phone: influenza virus vacc ine, unspecified formulation Mona Baker Work Phone: [facility] [address] [place] Work Phone: Comment on above: 2010 2009 2008 Payers Date Payer Category Payer Medicare [id number] 2023 Self-pay [id number] 2022 Medicare [id number] 5 1959 Medicare [id number] 2.1 6.840.1.403283.19 1948 Unknown [id number] 2.16.8 40.1.127229.3.579.2.1069 1948 Unknown [id number] 2.16.8 40.1.103739.3.579.2.1068 1948 Unknown [id number] 2.16.84 0.1.803059.3.579.2.593 1948 Unknown [id number] 2.16.84 0.1.971580.3.579.2.593 1948 Unknown [id number] 2.16.84 0.1.535961.3.579.2.593 1948 Unknown [id number] 2.16.84 0.1.707095.3.579.2.593 1948 Unknown [id number] 2.16.84 0.1.117074.3.579.2.593 1948 Unknown [id number] 2.16.84 0.1.382514.3.579.2.593 1948 Unknown [id number] 2.16.84 0.1.155291.3.579.2.593 1948 Unknown [id number] 2.16.84 0.1.080475.3.579.2.593 1948 Unknown [id number] 2.16.84 0.1.545296.3.579.2.593 1948 Unknown [id number] 2.16.84 0.1.654934.3.579.2.593 1948 Unknown [id number] 2.16.84 0.1.849835.3.579.2.593 1948 Unknown [id number] 2.16.84 0.1.350776.3.579.2.593 1948 Unknown [id number] 2.16. 840.1.908999.3.579.2.356 1948 Unknown [id number] 2.16. 840.1.692702.3.579.2.356 1948 Unknown [id number] 2.16. 840.1.524126.3.579.2.356 1948 Unknown [id number] 2.16. 840.1.290377.3.579.2.356 1948 Unknown [id number] 2.16 840.1.217891.3.579.2.356 1948 Unknown [id number] 2.16. 840.1.077272.3.579.2.356 1948 Unknown [id number] 2.16. 840.1.952748.3.579.2.356 1948 Unknown [id number] 2.16.8 40.1.516895.3.579.2.727 1948 Unknown [id number] 2.16.8 40.1.295653.3.579.2.727 1948 Unknown [id number] 2.16.8 40.1.004197.3.579.2.72 1948 Unknown [id number] 2.16.8 40.1.506148.3.579.2.72 1948 Unknown [id number] 2.16.8 40.1.577570.3.579.2.72 1948 Unknown [id number] 2.16.8 40.1.366583.3.579.2.72 1948 Unknown [id number] 2.16. 840.1.636536.3.579.2.90 1948 Unknown [id number] 2.16. 840.1.681294.3.579.2.90 1948 Unknown [id number] 2.16. 840.1.025050.3.579.2. 1948 Unknown [id number] 2.16.8 40.1.642040.3.579.2. 1948 Unknown [id number] 2.16.8 40.1.844147.3.579.2. 1948 Unknown [id number] 2.16.8 40.1.915338.3.579.2. 1948 Unknown [id number] 2.16.8 40.1.975292.3.579.2. 1948 Unknown [id number] 2.16.8 40.1.535898.3.579.2.72 1948 Unknown [id number] 2.16.8 40.1.301602.3.579.2.72 1948 Unknown [id number] 2.16.8 40.1.807301.3.579.2. 1948 Unknown [id number] 2.16.8 40.1.596474.3.579.2.72 1948 Unknown [id number] 2.16.8 40.1.384923.3.579.2.727 1948 Unknown [id number] 2.16.8 40.1.091251.3.579.2.727 1948 Unknown [id number] 2.16.8 40.1.928354.3.579.2.727 1948 Unknown [id number] 2.16.8 40.1.983974.3.579.2.1244 1948 Unknown [id number] 2.16.8 40.1.666908.3.579.2.1244 1948 Unknown [id number] 2.16.8 40.1.350294.3.579.2.1244 1948 Unknown [id number] 2.16.8 40.1.453137.3.579.2.1244 1948 Unknown [id number] 2.16.8 40.1.998867.3.579.2.1244 1948 Unknown [id number] 2.16.84 0.1.454509.3.579.2.1259 1948 Unknown [id number] 2.16.84 0.1.026433.3.579.2.1259 1948 Unknown [id number] 2.16.84 0.1.011061.3.579.2.1259 1948 Unknown [id number] 2.16.84 0.1.223520.3.579.2.1259 1948 Unknown [id number] 2.16.84 0.1.792789.3.579.2.1259 1948 Unknown [id number] 2.16.84 0.1.953189.3.579.2.1259 1948 Unknown [id number] 2.16.84 0.1.305875.3.579.2.1259 1948 Unknown [id number] 2.16.84 0.1.006290.3.579.2.1259 1948 Unknown [id number] 2.16.84 0.1.072291.3.579.2.125 1948 Unknown [id number] 2.16.84 0.1.368403.3.579.2.125 1948 Unknown [id number] 2.16.84 0.1.906904.3.579.2.125 1948 Unknown [id number] 2.16.84 0.1.271575.3.579.2.125 1948 Unknown [id number] 2.16.840 .1.490493.3.579.2.125 1948 Unknown [id number] 2.16.8 40.1.562536.3.579.2. 1948 Unknown [id number] 2.16.8 40.1.173363.3.579.2. 1948 Unknown [id number] 2.16.8 40.1.336150.3.579.2.72 1948 Unknown [id number] 2.16.8 40.1.407293.3.579.2. 1948 Unknown [id number] 2.16.8 40.1.111212.3.579.2. 1948 Unknown [id number] 2.16.8 40.1.039908.3.579.2. 1948 Unknown [id number] 2.16.8 40.1.472427.3.579.2.72 1948 Unknown [id number] 2.16.8 40.1.366376.3.579.2. 1948 Unknown [id number] 2.16.8 40.1.943908.3.579.2.72 1948 Unknown [id number] 2.16.8 40.1.343008.3.579.2. 1948 Unknown [id number] 2.16.8 40.1.359059.3.579.2.727 1948 Unknown [id number] 2.16.8 40.1.409586.3.579.2.727 1948 Unknown [id number] 2.16.8 40.1.741343.3.579.2.727 1948 Unknown [id number] 2.16.8 40.1.779159.3.579.2.727 1948 Unknown [id number] 2.16.8 40.1.149818.3.579.2.727 1948 Unknown [id number] 2.16.8 40.1.860877.3.579.2.727 Unknown Unknown HCAP/HFA/FAP Active [id number] Unknown [id number] 2.16.8 40.1.090286.3.579.2.531 Unknown [id number] 2.16.8 40.1.969465.3.579.2.531 Unknown [id number] 2.16.8 40.1.323438.3.579.2.531 Social History Date Type Detail Facility Start: 03-20-2023 End: 04-30-2023 No alcohol use No alcohol use [facility] Comment on above: QUIT 11/2001; YETTI CUP OF COFFEE DAILY, PROTIEN SHAKE WITH COFFEE; Start: 06-21-2021 End: 12-05-2023 Tobacco smoking status NHIS Never smoked tobacco [facility] Start: 06-21-2021 End: 11-09-2022 Tobacco use and exposure Smokeless tobacco non-user [facility] Start: 06-21-2021 End: 01-29-2024 Alcohol intake Ex-drinker (finding) [facility] Start: 1950 Sex Assigned At Not on file [facility] Start: 09-17-2021 End: 10-17-2023 Exposure to SARS-CoV-2 (event) Not sure [facility] Tobacco [facility] Comment on above: deies DENIES denies Start: 03-20-2023 End: 04-30-2023 Sex Assigned At Male [facility] Tobacco smoking status No Smokin g Status Entered [facility] Start: 03-23-2022 End: 11-09-2022 Tobacco smoking status Ex-smoker (finding) [facility] Comment on above: The patient states, I quit smoking 22 years ago. Tobacco smoking status Never [facility] Comment on above: The patient states, I quit smoking 22 years ago. Start: 1950 Sex Assigned At Male Geronimo [facility] Tobacco smoking stat [facility] Tobacco smoking consumption unknown [facility] End: 06-04-2000 History of tobacco use Current smoker [facility] End: 06-04-2000 History of tobacco use Cigarette Smoker [facility] Start: 03-26-2023 End: 03-12-2024 Alcohol intake Lifetime non-drinker (finding) [facility] Work Phone: Within the last year , [...] Identifier Dates Insertion, pacemaker Dual-chamber implantable defibrillator ()[id number] FDA Start: 03-08-2021 CL CLOSURE DEVIC E [...] Assessment Result Facility 03-02-2024 Functional Status No [facility] 03-02-2024 Functional Status [facility] 02-05-2024 Functional Status N/A [facility] 01-23-2024 Functional Status N/A [facility] 12-05-2023 Functional Status N/A [facility] 08-28-2023 Functional Status N/A [facility] 08-27-2023 Functional Status [facility] 07-17-2023 Functional Status N/A [facility] 04-09-2023 Functional Status No [facility] 01-08-2023 Functional Status N/A [facility] 09-22-2022 Functional Status N/A [facility] 08-23-2022 Functional Status N/A [facility] 08-16-2022 Functional Status N/A [facility] 08-09-2022 Functional Status N/A [facility] 06-02-2022 Functional Status N/A [facility] 05-14-2022 Functional status Patient at Baseline [facility] Work Phone: 05-12-2022 Functional status Patient at Baseline [facility] Work Phone: 03-31-2022 Functional Status No [facility] 03-23-2022 Functional Status N/A [facility] 03-09-2022 Functional Status N/A [facility] 02-09-2022 Functional Status No [facility] 02-08-2022 Functional Status [facility] 02-02-2022 Functional Status N/A [facility] 2021 Functional Status Yes [facility] 12-15-2021 PHQ-9 [id number] Moderate (10-14) [facility] 600 DO Work Phone: Mental Status Date Assessment Result Facility 05-14-2022 Cognitive function Cognitive Sta tus Patient at Baseline [facility] Work Phone: 05-12-2022 Cognitive function Cognitive Sta tus Patient at Baseline [facility] Work Phone: Clinical Notes 07-23-2019 to 03-12-2024 JUDI Cuadra - 03/12/2024 10:40 AM AGUILATHchristina Baker MD - 03/06/2024 1:20 PM EDT Note Date & Type Note Facility 03-12-2024 History of Present illness Narrative Subjective José Luis Gil is a 73 y.o. year old male Chief Complaint Patient presents with Stroke Parkinson's Disease Memory Loss Sleep Apnea Past Medical History: Diagnosis Date A-fib ([facility]) Abscess of toe, left Anemia Anxiety Arthritis of left foot Asthma ([facility]) Atrial fibrillation ([facility]) 07/2021 Blood in stool 05/2022 [facility] CAD (coronary artery disease) ([facility]) Cataract Cellulitis of toe, left Charcot's joint of left foot CHF (congestive heart failure) ([facility]) 12/2021 [facility] Chronic kidney disease Chronic obstructive pulmonary disease ([facility]) 02/23/2023 Chronic venous insufficiency Contracture of left ankle COPD (chronic obstructive pulmonary disease) ([facility] Depression ([facility]) Diabetes mellitus ([facility]) Diabetes, polyneuropathy ([facility]) Foot pain, left Foot pain, right GERD (gastroesophageal reflux disease) Heart disease History of being hospitalized 04/2021 A-Fib- After Pacemaker/Defib battery replacement, 2 days Hypercholesterolemia ([facility] Hypertension ([facility] Hypothyroidism ([facility] Memory problem Myocardial infarction ([facility]) Neuromuscular disorder ([facility]) OM (onychomycosis) Parkinson's disease ([facility]) Stroke ([facility] Thyroid nodule ([facility]) Type 2 diabetes mellitus with diabetic peripheral angiopathy with gangrene ([facility]) Past Surgical History: Procedure Laterality Date BYPASS GRAFT 2001 Triple Bypass CARDIAC PACEMAKER PLACEMENT 2002 Defibrillator CATARACT EXTRACTION MASTOID SURGERY PACEMAKER BATTERY CHANGE Family History Problem Relation Name Age of Onset Cancer Mother Christina Faulkner Hypertension Mother Christina Faulkner Mental illness Mother Christina Faulkner Arthritis Mother Christina Faulkner Cancer Father José Luis Black Trish Asthma Sibling Cancer Sibling Diabetes Sibling Hypertension Sibling Mental illness Sibling Cancer Maternal Grandmother Diabetes Maternal Grandmother Cancer Maternal Grandfather Diabetes Maternal Grandfather Hypertension Maternal Grandfather No Known Problems Paternal Grandmother No Known Problems Paternal Grandfather Asthma Daughter Zackary Vitaliy Mental illness Daughter Zackary Vitaliy Asthma Son Sudeep Faulkner Mental illness Son Sudeep Faulkner Diabetes Mother's Sister Hypertension Mother's Sister Cancer Brother John Paul Faulkner Cancer Sister Elisabet Faulkner Cancer Brother Max Faulkner Social History Tobacco Use Smoking status: Former Types: Cigarettes Smokeless tobacco: Never Substance Use Topics Alcohol use: Never Comment: Caffeine intake: 1-2 cups per day HPI HPI STROKE -on ASA and atorvastatin -denies any new signs or symptoms of stroke -continues to have left sided weakness -states he has good and bad days that he can not walk -tends to lean to the left side -numbness and tingling in left hand -admits to imbalance -ambulates with walker inside of home and wheelchair outside - states he falls about once every 2-3 weeks -occurs when he tried to walk backwards . JASMIN -does not use CPAP -no longer on O2 at night - states he was found to not have JASMIN -sleeping well at night -averages 7 hours a night -feels rested when he wakes -naps throughout the day PARKINSONS -on Sinemet -does not notice tremor much anymore -tends to lean to his left side -no issues with swallow -reports slowness in movement MEMORY -patient feels memory is about the same - disagrees -she reports he is constantly repeating himself -asks the same questions multiple times -forgets recents events and conversations -denies any hallucinations -denies any vivid dreams ROS Review of Systems Constitutional: Negative for appetite change and fatigue. HENT: Negative for drooling. Respiratory: Negative for cough and shortness of breath. Cardiovascular: Negative for chest pain and palpitations. Gastrointestinal: Negative for nausea and vomiting. Musculoskeletal: Positive for gait problem. Negative for back pain and neck pain. Neurological: Positive for weakness and numbness. Negative for dizziness, tremors and headaches. Psychiatric/Behavioral: Positive for confusion. Negative for hallucinations. Objective Visit Vitals BP 144/84 Pulse 60 Resp 16 Ht 5' 10 Wt 220 lb SpO2 95% BMI 31.57 kg/m Smoking Status Former BSA 2.22 m GENERAL Apical RRR, no murmur Neurological Exam Mental Status Awake and alert. Recalls 0 of 3 objects immediately. Speech is normal. Language is fluent with no aphasia. Attention and concentration are normal. Cranial Nerves CN II: Visual acuity is normal. Visual calhoun full to confrontation. CN III, IV, : Extraocular movements intact bilaterally. Normal lids and orbits bilaterally. Pupils equal round and reactive to light bilaterally. CN V: Facial sensation is normal. CN VII: Full and symmetric facial movement. CN VIII: Hearing is normal. CN XI: Shoulder shrug strength is normal. Sensory Light touch abnormality: Decreased on the left compared to the right in upper and lower extremity. Coordination Right: Ozyoey-so-eokq normal. Rapid alternating movement normal.Left: Wpmavx-hk-yflt normal. Rapid alternating movement normal. Mild intermittent resting tremor in the right hand. No cogwheel rigidity noted. Gait Not assessed, in wheelchair. Motor Examination RUE Strength deltoid, biceps, triceps, wrist extensors, wrist extensors, wrist flexor, prop worker strength 5/5. LUE Strength deltoid, biceps, triceps, wrist extensors, wrist extensors, wrist flexor, prop worker strength 5/5. RLE Strength illopsoas, quadriceps, tibialis anterior, and gastrocnemius strength 5/5. LLE Strength illopsoas, quadriceps 5/5. Difficulty with dorsiflexion and eversion of the foot Tone Normal tone x4 extremities. Reflexes: RUE biceps reflex 2, brachioradialis reflex 2 LUE biceps reflex 2, brachioradialis reflex 2 RLE knee reflex 1 LLE knee reflex 1, Assessment and Plan Diagnoses and all orders for this visit: Parkinson's disease Patient with minimal rest tremor, has a stooped posture (which apparently did improve after initial Abilify decrease), freezing in the lower extremities, and bradykinesia of BUE. He has seen Dr. Mcginnis for movement specialist disorder and is diagnosed with PD. He is on Sinemet and states this course seems stable with fluctuating symptoms. Cognitive impairment Patient has complaints of cognitive impairment that mostly affect forgetfulness and short-term memory. 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 CT of the brain without contrast on 10/06/21: Chronic findings. No acute findings. No evidence of bleed. He was started on Namenda 5mg BID. I would be hesitant to try Aricept with AICD although he has no documents arrhythmia so we could consider this. History of stroke Patient was seen at [facility] with a medical history of significant carotid artery stenosis, coronary artery disease, hypertension, and hyperlipidemia. He was initially admitted to [facility] for SOB and dyspnea with exertion but developed an acute onset of left facial and arm numbness. The patient had a CT scan of the brain that did not reveal an acute infarct or hemorrhage. He has a pacemaker with incompatible wires and is unable to have an MRI. Carotid ultrasound revealed stenosis of the right and left internal carotid arteries estimated as less than 50%. Echo revealed ejection fraction at 50-55%. He still has baseline paresthesia and weakness although improved since hospitalization. He states he trips over his left foot at times and has an AFO, although he feels this isn't helpful. He is maintained on Eliquis and aspirin. He denies new stroke symptoms Obstructive sleep apnea, adult Mild JASMIN on previous PSG. He does have CPAP machine but does not use it. He was referred to ENT for consideration for inspire device and reportedly was determined not to have JASMIN. Left foot drop Patient had surgery for CMT, has AFO but states this does not work well for him. PLAN 1. Continue Eliquis and aspirin for secondary stroke prevention 2. I counseled the patient on stroke signs and symptoms and advised the patient to go immediately to the emergency room should these symptoms develop. The patient states understanding. 3. Confirmed with pharmacy and patient's daughter that patient has not had namenda filled in a few months. Will resume Namenda at 5mg PO BID for memory. 4. I will see the patient back in 2-3 months or sooner should he develop new symptoms, worsening symptoms, or side effects from medications. 5. I will update a MOCA at follow up documented in this encounter [facility] 03-09-2024 Note Microbiology PROCEDURE: Blood Culture Charcoal [R1] SOURCE: Blood BODY SITE: Arm R COLLECTED DATE/TIME: 03/02/2024 08:19 EDT RECEIVED DATE/TIME: 03/02/2024 09:43 EDT START DATE/TIME: 03/02/2024 09:43 EDT FREE TEXT SOURCE: rt dorothy Tony M.D., Annemarie Tony M.D., Annemarie H FINAL REPORTS Final Report [] Verified Date/Time: 03/09/2024 11:46 EDT No growth at 7 days. Performing Locations R1: This test was performed at: [facility], [address] [place] [address], [address] [place] [address], [phone] Comment on above: Performed By: #### 1 [id number] #### [facility] [address] [place] [address] 03-09-2024 Note Microbiology PROCEDURE: Blood Culture Charcoal [R1] SOURCE: Blood BODY SITE: Arm L COLLECTED DATE/TIME: 03/02/2024 08:28 EDT RECEIVED DATE/TIME: 03/02/2024 09:43 EDT START DATE/TIME: 03/02/2024 09:43 EDT FREE TEXT SOURCE: lt dorothy Tony M.D., Annemarie Tony M.D., Annemarie H FINAL REPORTS Final Report [] Verified Date/Time: 03/09/2024 11:46 EDT No growth at 7 days. Performing Locations R1: This test was performed at: [facility], [address] [place] [address], [address] [place] [address], [address] [place] [address] Comment on above: Performed By: #### 1 [id number] #### [facility] [address] [place] [address] 03-06-2024 History of Present illness Narrative Images [...] Flowsheet Row Patient Outreach from 03/06/2024 in [facility] with Kalpana Gomez LPN Hospital Information ED, Hospital or Residential Facility Discharge? Hospital Patient has been contacted [...] Date 03/04/24 Discharged To: Home Setting Discharge [facility] Engagement Admission Date 03/02/24 Medications Appointments Self Management Patient Teaching Wrap Up Wrap Up Additional Comments Had labs, CXR, Echo Review of Systems General: Denies fever, chills, fatigue, NICHOLSON or weight loss/gain CV: Denies CP, palpitations [...] fail to improve. documented in this encounter [facility] 03-04-2024 Hospital Discharge instructions Patient Education 03/04/2024 [...] Follow these instructions at home: Medicines Take [id number] and prescription medicines only as told by your health care provider. Do not stop taking your medicines or change the amount you take. If you are having problems or side effects from your medicines, talk to your health care provider. If you are having difficulty paying for your medicines, contact a forensic social worker or your clinic. There are many programs [...] provider. Document Revised: 08/29/2022 Document Reviewed: 12/11/2020 @Pay Patient Education 2023 [employer]. Follow Up Care 03/02/2024 08:08:14 With:Mona Baker Address: [address] [place] [address]- Business (1) When:03/06/2024 13:20:00 With:Mona Baker Address: [address] [place] [address]- Business (1) When:7 to 10 days Comments:Call for followup appointment [facility] 03-04-2024 Note GetWell Learning Par ticipants Patient GetWell Understands Education Yes GetWell Education Video Avoiding COPD Triggers [facility] 03-04-2024 Note GetWell Learning Par ticipants Patient GetWell Understands Education Yes GetWell Education Video Heart Failure: Limiting Sodium [facility] 03-04-2024 Note GetWell Education Vi miguel COPD: How to Use a Nebulizer GetWell Learning Participants Patient GetWell Understands Education Yes [facility] 03-04-2024 Note GetWell Learning Par ticipants Patient GetWell Understands Education I need more education GetWell Education Video Avoiding Infections in the Hospital [facility] 03-04-2024 Evaluation + Plan note Extrac [...] from: Title:Discharge Note Author:Virgil Teresa III, DO judith CastilloOri Date:03/04/24 Discharge To, Anticipated II - Home [...] 03/06/2024 01:20 PM EDT [address] [place] [address]- [employer] (1) Additional Instructions: Mona Baker Within 7 to [address] [place] [address]- [employer] (1) Additional Instructions: Call for followup appointment Heart Failure Exacerbation Extracted from: Title:APSO Note Author:Boaz Teresa III, DO Date:03/03/24 73-year-old male with Amol son's admitted for decompensated heart failure with [...] Basic Metabolic Panel CBC w/ Auto Diff Sbs[facility] Hospital Care/Day Moderate 35 Minutes 47519 2. Acute on chronic heart failure with [...] Basic Metabolic Panel CBC w/ Auto Diff [facility] Care/Day Moderate 35 Minutes 71849 3. COPD exacerbation (J44.1: Chronic obstructive pulmonary disease with (acute) exacerbation) Mild exacerbation. DuoNebs Ordered: [facility] Care/Day Moderate 35 Minutes 76102 4. Hypertensive crisis (I16.9: Hypertensive crisis, unspecified) Blood pressure significantly improved. Continue antihypertensives. Will switch IV Lasix to p.o. prior to discharge Ordered: [facility] Care/Day Moderate 35 Minutes 10092 5. Hyperlipidemia, unspecified, (E78.5: Hyperlipidemia, unspecified)Hyperlipidemia, unspecified [...] Ordered: Initial Hospital Care/Day High 75 Minutes 05226 2. Acute on chronic heart failure (I50.9: [...] Ordered: Initial Hospital Care/Day High 75 Minutes 30604 3. COPD exacerbation (J44.1: Chronic obstructive pulmonary disease with (acute) exacerbation) mild exacerbation will continue breathing treatment will try to avoid steroid since wheezing is not significant and may improve when appropriately diuresed. resume home breathing treatment Ordered: Initial Hospital Care/Day High 75 Minutes 98487 4. Hypertensive crisis (I16.9: Hypertensive crisis, unspecified) resume home meds when med rec is done Ordered: Initial Hospital Care/Day High 75 Minutes 65972 5. Hyperlipidemia, unspecified, (E78.5: Hyperlipidemia, unspecified)Hyperlipidemia, unspecified continue statin Ordered: Initial Hospital Care/Day High 75 Minutes 40222 6. PAF (paroxysmal atrial fibrillation) (I48.0: Paroxysmal atrial fibrillation) rate is well controlled continue home meds resume eliquis as DVT prophylaxis agent and for atrial fibrillation Ordered: Initial Hospital Care/Day High 75 Minutes 98934 7. Parkinsonian syndrome (G20: Parkinson's disease) continue med Ordered: Initial Hospital Care/Day High 75 Minutes 37177 8. Type 2 diabetes mellitus with hyperlipidemia (E11.69: Type 2 diabetes mellitus with other specified complication) elevated BGL this morning Solu-medrol given to patient may be contributing resume home medications accucheck achs Ordered: Initial Hospital Care/Day High 75 Minutes 26454 9. Hypertension (I10: Essential (primary) hypertension) poor control monitor and adjust home medications Ordered: Initial Hospital Care/Day High 75 Minutes 84185 10. Diabetic foot ulcer (E11.621: Type 2 diabetes mellitus with foot ulcer) wound appears clean and doesn't look infected. patient follows with podiatry daily localized wound care Ordered: Initial Hospital Care/Day High 75 Minutes 19190 Non-pressure chronic ulcer of other part of [...] Therapy PT & PTT Rapid COVID Antigen ([facility]) Saline Lock Insert Troponin 0 Hr. Troponin 1 Hr. UA with Cult Rflx XR Chest Single View Future Appointments Appointment Date:03/14/2024 02:00:00 PM Scheduled Provider: Location:[facility] Appointment Type:Anticoagulation Follow Up 15 () Appointment Date:04/10/2024 11:00:00 AM Scheduled Provider: Location:[facility] Appointment Type:NCV Pacemaker ([facility]) Appointment Date:10/30/2024 01:40:00 [...] 04/09/23 * MRI Brain w/o Contrast 03/15/23 [facility] 10-01-2024 NoteProgress Note-Physician Patient: JOSÉ LUIS FAULKNER [...] Problem list: All Problems Weakness generalized / 33441619 / Confirmed At risk for falls / 274215368 / 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 / 4137935000 / Confirmed Carotid artery stenosis / 844883822 / Confirmed Charcot's joint of foot due to diabetes / 629856354 / Confirmed Chronic anemia / 322633329 / Confirmed COPD without exacerbation / 905199307 / Confirmed Chronic systolic h (more content not included)...[facility] Comment on above:Result Comment: Electronically Signed By: Danna BROUSSARD, Felipa\.br\Date and Time Signed: 03/04/24 13:55 [id number] NoteDischarge Summary Admission and Discharge Information Admit Date/Time:03/02/2024 09:27 Admitting Physician - Paul Samaniego MD Consulting Physician - Danna BROUSSARD, Felipa [facility] Admitting Diagnoses: 3. COPD exacerbation, 03/02/2024 [...] minimal residual deficit who was admitted to [facility] on March 02, 2024 with acute hypoxic [...] -- 03/02/24 11:20:00 EDT, Consult and Co-manage, [facility] Physical Exam Vitals & Measurements T: 37 [...] Discharge Diet Discharge D (more content not included)...[facility]Result Comment: Electronically Signed By: Boaz Teresa III, DO\Date and Time Signed: 03/04/24 13:47 [id number] Telephone encounter Note* Telephone Encounter - Nettie Hernandez - 03/04/2024 1:34 PM EDT [facility] calls to sched felicia for resp fail w hypoxia , chf, hyperlipodemia, admit 03/02 discharge 03/04, pt sched, [id number] Miscellaneous Notes* Telephone Encounter - Nettie Hernandez - 03/04/2024 1:34 PM EDT [facility] calls to sched felicia for resp fail w hypoxia , chf, hyperlipodemia, admit 03/02 discharge 03/04, pt sched, closing enc documented in this encounterSh[facility]ers [facility] for [id number] NoteProgress Note - Pharmacy Pharmacy to Dose [...] Notes: 03/02: INR therapeutic. Patient follows with [facility] anticoagulation clinic. Will continue home regimentoday. Discharge Recommendations: tbd Do to questionable compliance with amiodarone priort to admission and large jump in INR from yesterday, will dose more conservatively at 2 mg [facility] NoteProgress Note-Physician Assessment/Plan 73-year-old male with [...] Basic Metabolic Panel CBC w/ Auto Diff [facility] Care/Day Moderate 35 Minutes 56564 2. Acute on chronic heart failure with [...] Basic Metabolic Panel CBC w/ Auto Diff [facility] Care/Day Moderate 35 Minutes 19392 3. COPD exacerbation (J44.1: Chronic obstructive pulmonary disease with (acute) exacerbation) Mild exacerbation. DuoNebs Ordered: [facility] Care/Day Moderate 35 Minutes 63708 4. Hypertensive crisis (I16.9: Hypertensive crisis, unspecified) Blood pressure significantly improved. Continue antihypertensives. Will switch IV Lasix to p.o. prior to discharge Ordered: [facility] Care/Day Moderate 35 Minutes 09329 5. Hyperlipidemia, unspecified, (E78.5: Hyperlipidemia, unspecified)Hyperlipidemia, unspecified [...] and rhythm, normal (more content not included)... [facility]:Result Comment: Electronically Signed By: Boaz Teresa III, DO.br\Date and Time Signed: 03/03/24 15:25 [id number] NoteProgress Note-Physician Patient: JOSÉ LUIS FAULKNER Age: [...] Problem list: All Problems Weakness generalized / 74213468 / Confirmed At risk for falls / 954359930 / 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 / 1899788634 / Confirmed Carotid artery stenosis / 571193704 / Confirmed Charcot's joint of foot due to diabetes / 536763842 / Confirmed Chronic anemia / 415612253 / Confirmed COPD without exacerbation / 230621495 / Confirmed Chronic systolic heart failure / 7078110660 / Confirmed Presence of combination internal cardiac defibrillator (ICD) and pacemaker / 2228930693 / Confirmed Contracture of ankle joint / 048330552 / Confirmed CAD (coronary artery disease) / 37231988 / Confirmed Bipolar I disorder, mild, current or most recent episode depressed, in full (more content not included)...[facility] above:Result Comment: Electronically Signed By: Danna BROUSSARD, Felipa\.br\Date and Time Signed: 03/03/24 14:51 [id number] NoteEchocardiology Procedure Exam Date/Time Accession # Ordering Echo Transthoracic w/ 03/03/2024 12:14 EDT [id number] Aden BROUSSARD, Paul Regalado Contrast CPT code C8929 Reason for Exam (Echo Transthoracic w/ Contrast) Congestive Heart Failure Report [facility] [address] [place] [address] Adult Echocardiogram Report Name: JOSÉ LUIS FAULKNER Study Date: 03/03/2024 11:19 AM BP: 149/69 mmHg Patient Location: [address] [place] [address] Bed(s) [facility] HR: 55 : 1950 Gender: Male Height: 69.5 in Age: 73 yrs Ethnicity: [facility] Weight: 229 lb Reason For Study: Congestive Heart Failure BSA: 2.2 m2 History: High Cholesterol,HTN,Diabetes,SOB,CAD,Atrial Fibrillation,CABG,CHF,COPD,JASMIN,Stents,Obesi ty Ordering Physician: Aden^Paul^Niall. Performed By: Daphnie Jimenez, [facility] Interpretation Summary Mild inferior wall hypokinesis The [...] Signed by: Felipa Milligan MD Transcribed by: VT Technologist: Jazzy [facility]09-30-2024 Note Interdisciplinary Note - PT PT evaluation completed with [facility] of = services. Pt mod I with supine<>sit due to use of hand rails. CGA for sit<>stand with FWW due to reports of frequent LOB. Pt ambulated 8ftwith FWW and CGA. Once pt is DC, recommended to the patient and his family for outpatient for Parkinson's treatment to work on balance and fall prevention.[facility]09-30-2024 Note Progress Note - Pharmacy Pharmacy to Dose Warfarin Indication for warfarin therapy: Afib Target INR: 2-3 Ordering Provider: Aedn Taking warfarin prior to admission: Yes Home Regimen: Sunday: 4mg Sunday: 4mg Sunday: 4mg Sunday: 4mg : 4mg Sunday: 4mg Sunday: 4mg Total Weekly Dose: 28mg INR values/Dose given: 03/02: INR 2.33 - 4mg 03/03: INR 2.04 Scheduled dose for today: 4mg Notes: 03/02: INR therapeutic. Patient follows with [facility] anticoagulation clinic. Will continue home regimentoday. Discharge Recommendations: tbdFkassandra [facility]09-29-2024 NoteConsultation Note Patient: JOSÉ LUIS FAULKNER [...] about 3 weeks ago. Solumedrol given per [facility] History of Present Illness Patient is known [...] Daily, # 30 tab(s), Refills(s) 0, Pharmacy: [facility], 172.7, cm, 03/09/23 15:05:00 EDT, Height/Length Dosing, 104.5, kg, 03/09/23 15:05:00 EDT, Weight Dosing Coumadin 4 mg Tab: See Instructions, take 6mg on sunday, take 4m g all other days, # 96 tab(s), Refills(s) 1, Pharmacy: [facility], 172, cm, 10/31/23 14:00:00 EDT, Height/Length Dosing, 101.2, kg, 10/31/23 14:00:00 EDT, Weight Dosing DuoNeb 2.5 mg-0.5 mg/3 mL Soln-Inh: 3 mL, Inhalation, QID, 1 EA, Refill(s) 0, [facility], 172.7, cm, 03/09/23 15:05:00 EDT, Height/Length Dosing, 104.5, kg, 03/09/23 15:05:00 EDT, Weight Dosing alprazolam 0.25 mg Tab: 0.25 mg = 1 tab(s), Oral, TID, PRN anxiety, # 30 tab(s), Refills(s) 2, other reason (Rx) carvedilol 25 mg Tab: 25 mg = 1 tab(s), Oral, BID, # 120 tab(s), Refills(s) 0, Pharmacy: [facility], 172, cm, 07/17/21 14:15:00 EST, Height/Length Dosing, 113, kg, 07/17/21 14:15:00 EST, Weight Dosing cyanocobalamin 1000 mcg/mL Inj: 1,000 mcg = 1 mL, IntraMuscular, qMonth, syringes for B12 injections-3ml, 25 guage 1 inch quantity sufficient for injections., # 10 mL, Refills(s) 1, Pharmacy: [facility], 177, cm, 04/12/23 9:03:00 EST, Height/Length Dosing, 101.6, kg, 11/0... nebulizer machine: nebulizer machine, See Instructions, 1 EA, 0, please provide machine with supplies, Supply torsemide 20 mg Tab: See Instructions, 1 tab(s) Oral Daily and then addtional 1 tab oral daily as needed for Leg swelling or weight gain of 3 pounds, # 60 tab(s), Refills(s) 0, Pharmacy: [facility], 177, cm, 08/27/23 20:45:00 [...] DR Tab: 40 m (more content not included)...[facility] above:Result Comment: Electronically Signed By: Raegan BROUSSARD, Feng\.br\Date and Time Signed: 03/02/2416:47 [id number] NoteHistory and Physical Basic Information Admit Date/Time:03/02/2024 09:27 Chief Complaint Patient presents with several days of SOB with hx of COPD. pt recently taken off O2 about 3 weeks ago. Solumedrol given per [facility] History of Present Illness Mr. Hoffman presented [...] 08:19:00) Lymph Auto: 17.8 % (03/02/24 08:19:00) [place] Auto: 6.9 % (03/02/24 08:19:00) Eos Auto: 1.7 % (03/02/24 08:19:00) Basophil Auto: 0.9 % (03/02/24 08:19:00) Neutro Absolute: 7 E9/L (03/02/24 08:19:00) Lymph Absolute: 1.7 E9/L (03/02/24 08:19:00) [place] Absolute: 0.7 E9/L (03/02/24 08:19:00) Eos Absolute: [...] Ag: Not Detected ( (more content not included)...[facility] on above:Result Comment: Electronically Signed By: Aden BROUSSARD, Paul Young\Date and Time Signed: 03/02/24 11:49 [id number] NoteHistory and Physical Patient: JOSÉ LUIS FAULKNER [...] stroke: yes 4. Serious co-morbid conditions (recent ID, anemia with Hct <30%, CRI with SCr [...] Daily, # 30 tab(s), Refills(s) 0, Pharmacy: [facility], 172.7, cm, 03/09/23 15:05:00 EDT, Height/Length Dosing, 104.5, kg, 03/09/23 15:05:00 EDT, Weight Dosing Coumadin 4 mg Tab: See Instructions, take 6mg on sunday, take 4m g all other days, # 96 tab(s), Refills(s) 1, Pharmacy: [facility], 172, cm, 10/31/23 14:00:00 EDT, Height/Length Dosing, 101.2, kg, 10/31/23 14:00:00 EDT, Weight Dosing DuoNeb 2.5 mg-0.5 mg/3 mL Soln-Inh: 3 mL, Inhalation, QID, 1 EA, Refill(s) 0, [facility], 172.7, cm, 03/09/23 15:05:00 EDT, Height/Length Dosing, 104.5, kg, 03/09/23 15:05:00 EDT, Weight Dosing alprazolam 0.25 mg Tab: 0.25 mg = 1 tab(s), Oral, TID, PRN anxiety, # 30 tab(s), Refills(s) 2, other reason (Rx) carvedilol 25 mg Tab: 25 mg = 1 tab(s), Oral, BID, # 120 tab(s), Refills(s) 0, Pharmacy: [facility], 172, cm, 07/17/21 14:15:00 EST, Height/Length Dosing, 113, kg, 07/17/21 14:15:00 EST, Weight Dosing cyanocobalamin 1000 mcg/mL Inj: 1,000 mcg = 1 mL, IntraMuscular, qMonth, syringes for B12 injections-3ml, 25 guage 1 inch quantity sufficient for injections., # 10 mL, Refills(s) 1, [facility], [facility], cm, 04/12/23 9:03:00 EST, Height/Length Dosing, 101.6, kg, ... doxycycline hyclate 100 mg Tab: 100 mg = 1 tab(s), Oral, BID, Take 1 tablet the day before procedure and 1 tablet after procedure, # 2 tab(s), Refills(s) 0, Pharmacy: [facility], 172, cm, 12/05/23 10:16:00 EDT, Height/Length Dosing, 107.6, kg, 12/05/23 10:16:00 EDT, Weigh... nebulizer machine: nebulizer machine, See Instructions, 1 EA, 0, please provide machine with supplies, Supply torsemide 20 mg Tab: See Instructions, 1 tab(s) Oral Daily and then addtional 1 tab oral daily as needed for Leg swelling or weight gain of 3 pounds, # 60 tab(s), Refills(s) 0, Pharmacy: [facility], 177, cm, 08/27/23 20:45:00 [...] mg = 1 cap(s), Oral, BID, Dr. Read (more content not included)...[facility]:Result Comment: Electronically Signed By: January Wells\.ricardo\Date and Time Signed: 02/22/24 14:04 [id number] Hospital Discharge instructions Patient Education 02/05/2024 11:34:36 [...] Up Care 12/11/2023 11:19:44 With:Andi WARE Address: [address] [place] [address] Business (1) When: Unknown Comments:Office will call to schedule follow up [facility] 09-03-2024 NotePatient Education Custom Cystoscopy ? Voiding [...] if you have a fever over 100 degrees.[facility] 01-29-2024 NoteDuplicate appointment AUTHENTICATED BY YE LOBO, ON 01/29/2024 11:40:26[facility] 01-29-2024 History of Present illness Narrative* Ye Lobo MD - 01/29/2024 11:39 AM EDT Duplicate appointment documented in this [id number] NoteVideo [address] [facility] [id number] Video Visit [facility] 01/29/2024 Ye Lobo MD Provider Location: [facility] Patient Location Data Analysis Manager: None Patient Location: Patient's Home Patient: José [...] there are inherent diagnostic limitations compared to oejw-xo-xbwh evaluations. We elected to proceed with the [...] Lobo MD AUTHENTICATED BY YE LOBO, ON 01/29/2024 11:45:55[facility] 01-29-2024 History of Present illness Narrative* Ye Lobo MD - 01/29/2024 11:31 AM EDT Video Visit [facility] [id number] Video Visit [facility] 01/29/2024 Ye Lobo MD Provider Location: [facility] Patient Location Data Analysis Manager: None Patient Location: Patient's Home Patient: José [...] there are inherent diagnostic limitations compared to yywf-wf-mjwt evaluations. We elected to proceed with the [...] None Ye Lobo MD documented in this [id number] Hospital Discharge instructions Follow Up Care 12/05/2023 10:49:04 With:Caterina BROUSSARD, Nicolás Chavez, PUL, AYAH Address: [address] [place] [address] [facility] [place] [address]- When: Unknown Comments:after his testing is completed [facility] 05-28-2024 NoteBEHAVIORAL HEALTH PSYCHIATRIC PROGRESS NOTE Patient [...] MD AUTHENTICATED BY YE LOBO, ON 10/30/2023 11:28:45[facility] 10-30-2023 History of Present illness Narrative* [...] None Ye Lobo MD documented in this [id number] Hospital Discharge instructions Follow Up Care 10/25/2023 09:24:55 With:Caterina BROUSSARD, Nicolás Chavez, PUL, AYAH Address: [address] [place] [address] [facility] [place] [address]- When: Unknown Comments:after his testing is completed [facility]05-15-2024 History of Present illness Narrative* Felipa Milligan MD - 10/17/2023 10:40 AM EDT Cristo Gil is a 72 y.o. male Chief Complaint Follow-up HPI Patient is in the office for follow-up for the problems noted below. He has had no cardiac events since his last visit but was admitted to [facility] in August 2023 for symptoms of dyspnea. 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 Class 1 obesity [...] my direction and personally dictated by me. Marc reviewed the chart and agree that the record accurately reflects my personal performance of the history, physical exam, discussion and plan. documented in [facility]Bl[facility] Work Phone: 1(798) 795-818405-15-2024 Instructions* Patient Instructions* Maria Del Carmen Campbell [...] at night INR 5 days later at [facility] CC Start coumadin 2 days before running out of Eliquis. Follow up 6 months BMI was above normal measurement. Current weight: 102 kg (225 lb) Weight change since last visit (-) denotes wt loss -6.2 lbs Weight loss needed to achieve BMI 25: 51.1 Lbs Weight loss needed to achieve BMI 30: 16.4 Lbs Provided instructions on dietary changes. documented in this encounterBlanchard [facility] Work Phone: [phone]) 581-383804-04-2024 [facility] Evaluation + Plan noteExtracted from: Title:Discharge Note Author:JOSE BROUSSARD, Mbalvaro James ate:08/29/23 Stable. Home. Discharge Diet(s): Calorie [...] Felipa Milligan Within [address] [facility] [address] [place] [address]- Business (1) Additional Instructions: Call for followup appointment Mona Baker Within 5 to 7 days [address] [place] [address]- Business (1) Additional Instructions: Call for followup [...] Ordered: Hospital Discharge Day > 30 Min 25551 2. Dyspnea (R06.00: Dyspnea, unspecified) Related to generalized weakness. Resolved. Ordered: Hospital Discharge Day > 30 Min 21809 3. Hypertension (I10: Essential (primary) hypertension) Blood pressure well-controlled. Continue on Coreg, isosorbide. Enalapril on hold.-May resume at discharge. Ordered: Hospital Discharge Day > 30 Min 54684 4. PAF (paroxysmal atrial fibrillation) (I48.0: Paroxysmal atrial fibrillation) Rate controlled. Continue on amiodarone, Coreg and Eliquis. Ordered: 5. Chronic systolic heart failure (I50.22: Chronic systolic (congestive) heart failure) Clinically stable. Continue on isosorbide. May resume Aldactone and Bumex at discharge. Ordered: Hospital Discharge Day > 30 Min 92710 6. CAD (coronary artery disease) (I25.10: Atherosclerotic heart disease of creek coronary artery without angina pectoris) Status post [...] deep vein thrombosis (DVT) prophylaxis (Z79.899: Other senior living (current) drug therapy) Eliquis. Disposition: Home today. [...] with IV fluid. Renal ultrasound pending. [facility] Moderate 35 Minutes 42964 2. Dyspnea (R06.00: Dyspnea, unspecified) Related to generalized weakness. Improved. Ordered: Sbsq Hospital Care/Day Moderate 35 Minutes 65291 3. Hypertension (I10: Essential (primary) hypertension) Blood pressure well-controlled. Continue on Coreg, isosorbide. Enalapril on hold. Ordered: Sbsq Hospital Care/Day Moderate 35 Minutes 07731 4. PAF (paroxysmal atrial fibrillation) (I48.0: Paroxysmal atrial fibrillation) Rate controlled. Continue on amiodarone, Coreg and Eliquis. Ordered: [facility] Care/Day Moderate 35 Minutes 69893 5. Chronic systolic heart failure (I50.22: Chronic systolic (congestive) heart failure) Clinically dry. Continue on isosorbide. Aldactone on hold. Bumex on hold. Ordered: [facility] Care/Day Moderate 35 Minutes 80651 6. 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 Disposition: Hopefully home in a.m after adequate hydration and improvement in renal functions. I discussed the diagnosis and plan of care with the patient at the bedside. Moderate level of MDM based on addressing above issues. This documentation was transcribed using voice recognition software. Several attempts were made to ensure accuracy. However inadvertent computerized lan engineer errors may be present. Olaf Sinclair. Hospitalist. [...] Extracted from: Title:Admission H & P Author:Rosi Mendez MD Date:08/28/23 1. Dyspnea (R06.00: Dyspnea, unspecified) [...] artery disease) (I25.10: Atherosclerotic heart disease of creek coronary artery without angina pectoris) With hx [...] automatic (implantable) cardiac defibrillator) Addendum by Romel Mendez MD on August 28, 2023 04:55:50 EDT [...] Therapy PT & PTT Rapid COVID Antigen ([facility]) Saline Lock Insert Troponin 0 Hr. Troponin 3 Hr. Troponin 6 Hr. Troponin 9 Hr. XR Chest Single View Future Appointments Appointment Date:10/11/2023 02:15:00 PM Scheduled Provider:Armani Yarbrough DO Location:[facility].ONCOLOGY Appointment Type:ONC Office Visit 30 (FT) Appointment Date:10/22/2023 10:30:00 AM Scheduled Provider:Caterina BROUSSARD, Priya Kathy Location:[facility].Pulmonary Clinic Appointment Type:Pulmonary Follow Up (FT) [...] 04/09/23 * MRI Brain w/o Contrast 03/15/23 [facility]03-27-2024 Hospital Discharge instructions Patient Education 08/29/2023 11:38:59 [...] follow-up visits. This is important. Medicines Take maak-xsz-ymgsixk and prescription medicines only as told by [...] provider. Document Revised: 03/28/2022 Document Reviewed: 03/28/2022 @Pay Patient Education 2022 [employer]. 08/29/2023 11:38:50 Acute Kidney Injury, Adult Acute [...] Follow these instructions at home: Medicines Take urgi-eza-yrdvotn and prescription medicines only as told by [...] follow-up visits. Where to find more information [place] [employer] of Kidney Patients: www.aakp.org National Kidney Foundation: www.kidney.org [place] Kidney [employer]: www.akfinc.org Medical Education [place]: ?LifeOptions: www.lifeoptions.org ?Kidney School: www.kidneyschool.org Contact a health care provider if: Your symptoms get worse. You have new symptoms such as: ?Headaches. ?Skin that is darker or yarder than normal. ?Easy bruising. ?Itchiness. ?Hiccups. ?Lack [...] provider. Document Revised: 08/28/2022 Document Reviewed: 03/30/2020 [employer] Patient Education 2022 @Pay Inc. Follow Up Care 08/27/2023 20:36:44 With:Felipa Milligan Address: [facility], [address] [place] [id number] Business (1) When:2 to 4 weeks Comments:Call for followup appointment With:Mona Baker Address: [address] [place] [address]- Business (1) When:5 to 7 days Comments:Call for followup appointment [facility]03-27-2024 NoteAdmission and Discharge Information Admit Date/Time:08/27/2023 23:00 Admitting Physician - Rosi Mendez MD Admitting Diagnoses: Discharge Order Date Discharge Patient - Ordered -- 08/29/23 10:06:00 EDT, Home Discharge Diagnoses 1. LAWANDA (acute kidney injury), 08/27/2023 2. Dyspnea, 08/27/2023 3. Hypertension, 08/28/2023 4. PAF (paroxysmal atrial fibrillation), 08/28/2023 5. Chronic systolic heart failure, 08/28/2023 6. CAD (coronary artery disease), 08/28/2023 7. Parkinsonian syndrome, 08/28/2023 8. Bipolar I disorder, mild, current or most recent episode depressed, in full remission, with mixed features, 08/28/2023 9. Presence of combination internal cardiac defibrillator (ICD) and pacemaker, 08/28/2023 10. Stage III chronic kidney disease, 08/28/2023 11. Obese, 08/28/2023 12. On deep vein thrombosis (DVT) prophylaxis, 08/28/2023 Shortness of breath, 08/27/2023 Weakness or fatigue, 08/27/2023 Procedure History Circumcision (07/25/2022), TURBT - Transurethral [...] Cystoscopy, Esophagogastroduodenoscopy and biopsy, Mastoidectomy. Hospital Course 72-year-old male with history of coronary artery disease, chronic systolic congestive heart failure, status post AICD placement, Parkinson's disease, COPD, chronic hypoxic respiratory failure, bipolar disorder, paroxysmal atrial fibrillation, hypertension, chronic kidney disease stage III, chronic o steomyelitis of the right foot secondary to diabetes mellitus/Charcot Jane syndrome, history of bladder cancer presented with complaints of shortness of breath and generalized weakness. He was subsequently admitted to [facility] with acute kidney injury on chronic kidney disease secondary to ATN from diuretics and ADWOA inhibitor. He was also admitted with dyspnea related to generalized weakness. He was treated with IV fluid hydration. Renal ultrasound was done and was negative.Patient's Aldactone, torsemide and enalapril were temporarily held during this admission. His renalfunctions improved and creatinine dropped down to 1.4. He participated well in physical therapy andwas found to have no needs. Patient's overall condition improved and he was anxious to be discharged home. He was seen prior to discharge and remained in an improved and stable condition for discharge and was subsequently discharged home. Torsemide was reduced to 20 mg daily at discharge. He will fo llow-up with his primary care physician as well as the information clerk cashier. Discharge time: 32 minutes. I spent 32 minutes in seeing, evaluating, educating patient on his conditions, coordinating care plan, medication reconciliation, speaking with nursing staff and case management. New medications: Torsemide 20 mg daily, may take additional torsemide if weight gain of greater than 3 pounds or legswelling. Physical Exam Vitals & Measurements T: 36.9 ?C(Axillary) TMIN: 36.7 ?C(Axillary) TMAX: 36.9 ?C(Oral) HR: 60(Monitored) RR: 17 BP: 136/67 SpO2: 98% WT: 109 kg General: alert, no acute distress Skin: warm, dry Head: no trauma, normocephalic Neck: Trachea midline, no adenopathy, no tenderness Eye: normal conjunctiva, sclera clear ENMT: TM's clear, oral mucosa moist, no pharyngeal erythema or exudate Cardiovascular: regular rate and rhythm, normal peripheral perfusion Respiratory: Lungs CTA, respirations non labored Chest wall: no deformity. Gastrointestinal: soft, non distended, no tenderness, no guarding. Obese. Bowel sounds intact. Back: No tenderness, Normal ROM, Normal alignment. Extremities: no deformity, no trauma, no edema. Neurological: oriented x 4, LOC appropriate for age, CN II-XII intact, motor strength equal & normal bilaterally, sensation equal & normal bilaterally, speech normal Psychiatric: cooperative, affect appropriate for age, normal judgement, normal psychiatric thoughts. Tests Performed US Renal XR Chest Single View Discharge Plan Patient Discharge Condition Stable. Discharge Disposition Home. Discharge Diet Discharge Diet(s): Calorie Controlled- 1800 Calorie Diet, Low Sodium- 2000 mg (08/29/23 10:04:00) Discharge Medication List Prescriptions Aldactone 25 mg Tab, 25 mg= 1 tab(s), Oral, Daily alprazolam 0.25 mg Tab, 0.25 mg= 1 tab(s), Oral, TID, PRN, 2 refills, Still taking, not as prescribed: BID scheduled 0800 and 1600 Anoro Ellipta 62.5 mcg-25 mcg inhalation powder, 1 inh, Inhalation, Daily, 5 refills carvedilol 25 mg Tab, 25 mg= 1 tab(s), Oral, BID cyanocobalamin 1000 mcg/mL (more content not included)...[facility]Result Comment: Electronically Signed By: JOSE BROUSSARD, Mbanefo\.br\Date and Time Signed: 08/29/23 13:22 [id number] NotePT Evaluation completed with an AMPAC score of 20/24. Pt was able to perform bed mobility with Mod I and transfers with SBA. Pt did ambulate 44 ft with FWW with decreased step/stride length. No LOB observed. Would recommend PT HH services to follow, but pt denies needing any further PT services at discharge. Will follow daily [facility]03-26-2024 NoteBasic Information Admit Date/Time:08/27/2023 23:12 Chief Complaint I am dehydrate, weak and my kidney function is not well History of Present Illness 72yo male with a PMH of hypertension, dyslipidemia, chronic systolic heart failure, CAD with a history of bypass, bipolar disorder, PAF on Eliquis, ICD and pacemaker placement, Parkinson's disease presented to the emergency room with a 2 to 3-day history of shortness of breath and weakness. He did feel unsteady on his feet. Nearly fell, but did not. Workup in the ED revealed evidence of LAWANDA. BUN/creatinine was 55/2.5. Prior baseline creatinine was1.3. No distinct etiology found for his shortness of breath. BNP was negative. He was not hypoxic. X-ray showed no infiltrate. He is anticoagulated on Eliquis. He is not sure of his home meds, but from what I can tell he is possibly on enalapril, Aldactone and torsemide. It appears the Aldactone was added in March when he became fluid overloaded on his torsemide. Review of Systems Constitutional: no fever, no chills, no sweats, + weakness Skin: no jaundice, no rash, no lesions, no petechiae ENMT: no ear pain, no sore throat, no congestion, no hoarseness Respiratory: + shortness of breath, no cough, no orthopnea, no wheezing Cardiovascular: no chest pain, no palpitations, no edema Gastrointestinal: no nausea, no vomiting, no diarrhea, no abdominal pain Genitourinary: no dysuria, no hematuria Musculoskeletal: no trauma, no joint or muscle pain Neurologic: no headache, + dizziness Psychiatric: no depression, no anxiety Heme/Lymph: no bleeding tendency, no bruising tendency Additional ROS info: Except as noted in the above Review of Systems and in the History of Present Illness all other systems have been reviewed and are negative or noncontributory. Scoring King Fall Risk Score: 85 High (08/28/23) Physical Exam Vitals & Measurements T: 36.4 ?C(Oral) TMIN: 36.4 ?C(Oral) TMAX: 36.6 ?C(Oral) HR: 60(Peripheral) RR: 18 BP: 112/70 SpO2:97% HT: 177.80 cm WT: 101.8 kg General: NAD Skin: warm, dry, no rash Head: AT/NC Neck: Trachea midline, supple Eye: normal conjunctiva, sclera clear Cardiovascular: regular rate and rhythm, S1S2, normal peripheral perfusion Respiratory: Lungs CTA, respirations non labored, breath sounds equal, no w/r/r Chest wall: no deformity. no TTP Gastrointestinal: soft, NT, ND, no peritoneal signs Extremities: no deformity, no edema Neurological: LOC appropriate for age, no focal deficits, normal speech Psychiatric: cooperative, affect appropriate for age, good eye contact Lab Results WBC: 8.1 E9/L (03/25/24 21:08:00) RBC: 3.9 E12/L Low (08/27/23:08:00) HGB: 10.9 gm/dL Low (08/27/23:08:00) Hct: 33.3 % Low (08/27/23:08:00) MCV: 86.4 fL (08/27/23:08:00) MCH: 28.2 pg (08/27/23:08:00) MCHC: 32.6 gm/dL (08/27/23:08:00) RDW: 16.5 % High (08/27/23:08:00) Platelet: 274 E9/L (08/27/23:08:) MPV: 7.1 fL (08/27/2308:) Neutro Auto: 63.7 % (08/27/23:08:) Lymph Auto: 23.6 % (08/27/23:08:) [place] Auto: 7.7 % (08/27/23:08:) Eos Auto: 3.6 % (08/27/23:08:) Basophil Auto: 1.4 % (08/27/23:08:) Neutro Absolute: 5.2 E9/L (08/27/2308:) Lymph Absolute: 1.9 E9/L (08/27/2308:00) [place] Absolute: 0.6 E9/L (08/27/23:08:00) Eos Absolute: 0.3 E9/L (08/27/23:08:00) Basophil Absolute: 0.1 E9/L (08/27/23:08:) PT: 15.5 second(s) High (08/27/23:08:00) INR: 1.38 (08/27/23:08:00) PTT: 39.2 second(s) High (08/27/23:08:00) Glucose Lvl: 182 mg/dL (08/27/23:08:00) BUN: 55 mg/dL High (08/27/23:08:00) Creatinine: 2.5 mg/dL High (08/27/23:08:00) eGFR: 26 mL/min/1.73 m2 Low (08/27/23:08:00) BUN/Creat Ratio: 22 High (08/27/23:08:00) Sodium Lvl: 137 mmol/L (08/27/23:08:00) Potassium Lvl: 4.9 mmol/L (08/27/23:08:00) Chloride: 103 mmol/L (08/27/23:08:00) CO2: 21 mmol/L (08/27/23:08:00) AGAP: 18 mEq/L High (08/27/23:08:00) Calcium Lvl: 8.5 mg/dL Low (08/27/23:08:) Magnesium: 2.3 mg/dL (08/27/23:08:00) Troponin: 17.3 pg/mL (08/28/23 02:36:00) BNP: 79 pg/mL (08/27/23:08:00) Influenzae A Ag: NEGATIVE1 (08/27/23 21:02:00) Influenzae B Ag: NEGATIVE1 (08/27/23:02:00) Rapid COVID Ag: Not Detected (08/27/23 21:02:00) Rapid COV Int NEG Ctl: Pass (08/27/23 21:02:00) Rapid COV Int POS Ctl: Pass (08/27/23 21:02:00) Assessment/Plan 1. Dyspnea (R06.00: Dyspnea, unspecified) Subjective complaint. [...] (primary) hypertension) Normotensive 4. PAF (paroxysmal atrial fibrillati (more content not included)...[facility]:Result Comment: Electronically Signed By: Erik BROUSSARD, Rosi\.br\Date and Time Signed: 08/28/23 04:56 [id number] Hospital Discharge instructions Patient Education 07/17/2023 09:56:47 [...] With:Andi WARE Address: [facility] [address] [place] [address] [place] (1) When: Unknown Comments:Office will call to schedule follow up [facility]02-13-2024 Note [id number] [facility] 07-17-2023 NoteCustom Cystoscopy ? Voiding after the procedure: there [...] if you have a fever over 100 degrees.[facility] 07-16-2023 Evaluation note* Encounter Date Diagnosis [...] quite some time. With the change of renewals manager thought worthwhile checking. Told patient to hold off on imodium while this test is going to be done. [facility] Other [id number] Hospital Discharge instructions Follow Up Care 04/12/2023 09:57:26 With:Armani Yrabrough DO, ONC Address: [facility] [place] [address]- [phone] Fax Business (1) When: Unknown Comments:plan iv iron. 2 or 3 doses.f/u in 1 year.epo cbc, cmp iron studies every three months. [facility]11-01-2023 History of Present illness Narrative* Felipa Milligan MD - 04/04/2023 11:30 AM EDT Cristo Gil is a 72 y.o. male [...] 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 Follow Up In [...] Obstructive sleep apnea, [facility] Work Phone: 1(772) 781-826311-01-2023 Instructions* Patient Instructions* Maria Del Carmen Campbell [...] Follow up 6 months documented in [facility]Bl[facility] Work Phone: 1(324) 501-972610-27-2023 Hospital Discharge instructions Follow Up Care 03/30/2023 14:59:20 With:Armani Yarbrough Address: [facility] [address] [place], [place] [address] [address] [phone] Fax Business (1) When: Unknown Comments:iron studies epo. retic count, spep sflc, simmunfIXATION, mma in 3 months. f/u in 6 months cbc, cmp, iron studies prior . start iron every other day orally. b12 shot monthly, can be at home. [facility]10-25-2023 Evaluation note* Encounter Date Diagnosis Assessment Notes Treatment Notes Treatment Clinical Notes Mar, Osteomyelitis of ankle and foot (ICD-10 - M86.9) [facility] Other [id number] History of Present illness Narrative* Jackie Mcginnis MD - 03/26/2023 1:30 PM EDT Subjective José Luis Gil is a right handed 72 y.o. year old male who presents with Parkinson's Disease. Patient is accompanied by: child daughter Visit type: follow up visit HPI Since last visit he was admitted to [facility] for CHF, during that time had an episode of transient L side of weakness/numbness. He has CT scan as well as CTA and carotid ultrasounds etc. He is due to have an MRI of the brain. He is on Asa 81 mg daily. He has now been seeing a Hand Box Coverer as well. Prior hx: R handed male [...] 3. Please send records from the memory test/certified hand therapist. 4. RTC in 6 months documented in this [facility] Work Phone: 1(663) 789-909610-23-2023 Instructions* Patient Instructions* Jackie Mcginnis MD - 03/26/2023 1:30 PM EDT It was nice to see you today. Plan: Continue current dose of carbidopa/levodopa 25/100 - one and half tab 4 times a day Try to exercise as much as you can Please send records from the memory test/certified hand therapist. RTC in 6 months documented in this [facility] Work Phone: 1(889) 331-428810-17-2023 History of Present illness Narrative* MONO Donaldson [...] Older Adults - [place] Injury Prevention/Home Safety [place] Home Safety Checklist [facility] Mobility for Adults Falls Prevention Conversation Guide for Caregivers Medications Medication Safety/Dispensers Sleep Getting a Good Night's Sleep ([facility]) Sleep Hygiene Personal Care Personal Care Tips Bathing Tips * Keisha Brambila APRN - WIRELESS WATCHER - 03/20/2023 8:45 AM EDT [facility] [address] [address] Dept: [phone] Dept Loc: [phone] Visit type: [facility] Family Summary Conference Patient was seen today [...] [facility] If the patient is a minor, [...] mcg) by mouth every morning(before breakfast)., Starting e 03/20/2023, Normal We reviewed the diagnosis of [...] months (around 06/20/2023) for virtual visit. Cristo José Luis Faulkner is a 72 y.o. male who returns today for a Family Summary Conference to review the care plan based on the comprehensive geriatric assessment completed at the last appointment. Initially seen in 02/2023 for memory loss x 3-4 years, previous dementia diagnosis, [place] 19 (MIS 10), CDT 5, PHQ 1. [...] in the evening. Take with meals. Coenzyme H15-Rxtujxb E (CoQ10 ST-100) 100-100 MG-UNIT capsule Take [...] found for: FOLATE No results found for: [id number] No results found for: RPR Imaging: head CT reviewed Testing: I reviewed the Adolph CognitiveAssessment from the initial assessment with the [...] care for the patient documented in this [facility]10-10-2023 Hospital Discharge instructions Follow Up Care 03/13/2023 15:59:25 With:Caterina BROUSSARD, Nicolás Chavez, PUL, AYAH Address: When:6 months [facility]09-19-2023 NoteMrOri Chambers was seen today for memory/geriatric evaluation. 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 Activities: rides scooter outside, visits grandson/family, watches tv/movies/sports, goes to car shows with cousin Exercise: none Finances: has adequate savings, gets Social Security income, [facility] Power of Copy Center Operator: Yes: spouse- Alicia, then daughter Zackary Financial Power of Copy Center Operator: Yes: spouse- Alicia, then daughter Zackary Living [...] Diet Healthy Nutrition for Older Adults - [facility] Injury Prevention/Home Safety [facility] Home Safety Checklist [facility] Mobility for Adults Falls Prevention Conversation Guide for Caregivers Medications Medication Safety/Dispensers Sleep Getting a Good Night's Sleep ([facility]) Sleep Hygiene Personal Care Personal Care Tips Bathing Tips * Keisha Brambila, FOUNDRY SUPERINTENDANT - WIRELESS WATCHER - 02/20/2023 1:45 PM EDT Images from the original note were not included. [facility] [address] [facility] [address] Dept: [phone] Dept Loc: [phone] Visit type: [facility] Initial Assessment Visit Date: 02/21/2023 Reason for [...] burden. Will discuss in more detail at [facility] with pt and family. Follow up in about 4 weeks (around 03/20/2023) for virtual summary visit. Subjective HPI: José Luis Faulkner is a 72 y.o. male who presents to the [facility] for a comprehensive geriatric assessment. The patient [...] (MSSA), CHF, urinary retention, previous LAWANDA, h/o ID, bladder cancer- stage 0, chronic diarrhea Pt [...] was referred to a stroke doctor in [place] but doesn't want to go history of [...] time. Hearing Screen: HHIE-S: Able to identify 02-02-: yes Current events: Current President? Biden Why [...] in the evening. Take with meals. Coenzyme Z83-Kqevszi E (CoQ10 ST-100) 100-100 MG-UNIT capsule Take [...] found for: FOLATE No results found for: [id number] No results found for: RPR Testing: The [...] appropriate exam and/or evaluation documented in this [facility]09-19-2023 Instructions* Patient Instructions* BALTAZAR Bae [...] via phone or MyChart. documented in this [facility]09-15-2023 Telephone encounter Note* Telephone Encounter - Ida Mosher - 02/16/2023 5:18 PM EDT Scheduled 02/20/2023. [id number] Miscellaneous Notes* Telephone Encounter - Ida Mosher - 02/16/2023 5:18 PM EDT Scheduled 02/20/2023. * Telephone Encounter - Michelle Blackmon - 02/15/2023 11:35 AM EDT Name of Caller: Zackary Contact Reason for Appointment: New Patient Office Name: [facility] Services Medication Refills need, if any: na Medication Name: Na documented in this [facility]09-14-2023 Telephone encounter Note* Telephone Encounter - Michelle Blackmon - 02/15/2023 11:35 AM EDT Name of Caller: Zackary Contact Reason for Appointment: New Patient Office Name: [facility] Services Medication Refills need, if any: na Medication Name: Na [facility]08-15-2023 Hospital Discharge instructions Patient Education 01/16/2023 [...] WARE Address: [facility] [address] [place] [address]- [place] (1) When: Unknown Comments:Office will call to schedule follow up [facility]08-14-2023 Evaluation note* Encounter Date Diagnosis Assessment Notes Treatment Notes Treatment Clinical Notes Jan, Osteomyelitis of ankle and foot (ICD-10 - M86.9) Once daily amoxicillin refilled. Probiotic refilled. No changes. Doing well clinically. Jan, Charcot foot due to diabetes mellitus (ICD-10 - E11.610) Jan, Chronic antibiotic suppression (ICD-10 - Z79.2) [facility] Other 05-30-2023 Hospital Discharge instructions Patient Education [...] With:Andi WARE Address: [facility] [address] [place] [address]- Business (1) When:01/31/2023 11:00:22 Comments:For next cystoscopy in 3 months [facility]04-20-2023 Hospital Discharge instructions Patient Education 09/21/2022 16:03:12 [...] if anything looks unusual. Men with a condid-ghya-hyolzd risk for skin cancer may want to see a accreditation specialist (documentation improvement specialist) for an annual body check. What are the benefits of screening? Cancer screening is done to look for cancer in the very early stages, before it spreads and becomesharder to treat and before you would start to notice symptoms. Finding cancer early improves the chances of successful treatment. It may save your life. Where to find more information [place] [employer]: www.cancer.org Centers for Disease Control and Prevention: www.cdc.gov National Cancer [place]: www.cancer.gov Contact a health care provider if: [...] provider. Document Revised: 10/17/2021 Document Reviewed: 04/16/2020 @Pay Patient Education 2022 [employer]. Follow Up Care 08/23/2022 10:38:51 With:MIGUELINA BROUSSARD, Andi Caputo, URL Address: [facility] [address] , [place] [address]- When: Unknown [facility] 03-22-2023 Hospital Discharge instructions Patient Education 08/23/2022 [...] pressure to the area. General instructions Take blxe-rrh-jdttxpj and prescription medicines only as told by [...] and water are not available, use hand atmospheric physics professor. ?Ask when you should remove your dressing. [...] Paraphimosis needs to be treated rightaway. Take grko-dsz-gmilzsk and prescription medicines only as told by [...] 03/18/2010 Document Revised: 10/30/2018 Document Reviewed: 10/30/2018 @Pay Patient Education 2020 [employer]. Follow Up Care 08/16/2022 14:04:38 With:MIGUELINA BROUSSARD, Andi Caputo, URL Address: [facility] [address] , [place] [address] [phone] When:09/23/2022 [facility] Kevin 03-15-2023 Hospital Discharge instructions Patient Education [...] pressure to the area. General instructions Take cnwd-adn-elsmvkd and prescription medicines only as told by [...] and water are not available, use hand atmospheric physics professor. ?Ask when you should remove your dressing. [...] Paraphimosis needs to be treated rightaway. Take fxiw-hqh-ttgvktg and prescription medicines only as told by [...] 03/18/2010 Document Revised: 10/30/2018 Document Reviewed: 10/30/2018 @Pay Patient Education 2019 [employer]. Follow Up Care 08/09/2022 16:13:36 With:MIGUELINA BROUSSARD, Andi Caputo, URL Address: [facility] [address], [place] [address]- When: Unknown [facility] Kevin 03-08-2023 Hospital Discharge instructions Patient Education [...] if anything looks unusual. Men with a qkeyic-arww-gduqns risk for skin cancer may want to see a accreditation specialist (documentation improvement specialist) for an annual body check. Where to find more information National Cancer [place]: https://www.cancer.gov/about-cancer/screening Centers for Disease Control and Prevention: https://www.cdc.gov/cancer/dcpc/prevention/screening.htm [place] [employer]: https://www.cancer.org/latest-news/8-pqyayg-qztsgkrgi-kickj-nbq-wnd.html Contact a health care provider if: You [...] 02/15/2017 Document Revised: 02/07/2019 Document Reviewed: 02/15/2017 @Pay Patient Education 2020 [employer]. Follow Up Care 08/09/2022 14:31:53 With:MIGUELINA BROUSSARD, Andi Caputo, URL Address: [facility] [address] [place] [address]- When: Unknown [facility] [place] 03-01-2023 History of Present illness Narrative* Venkatesh [...] see his psychiatrist Dr. Tejas Massey in [place]. * Denies slowness of movements and states [...] due to side effect of urinary retention [facility] Work Phone: 1(243) 300-929502-13-2023 Evaluation note* Encounter Date Diagnosis Assessment Notes Treatment Notes Treatment Clinical Notes Jul, Osteomyelitis of ankle and foot (ICD-10 - M86.9) Decrease Amoxicillin to once daily dosing now. Maintain this dose as his new dose. Jul, Charcot foot due to diabetes mellitus (ICD-10 - E11.610) Jul, Chronic antibiotic suppression (ICD-10 - Z79.2) [facility] Other 2022 Hospital Discharge instructions Patient Education [...] 05/18/2001 Document Revised: 11/04/2018 Document Reviewed: 11/04/2018 @Pay Patient Education 2020 [employer]. Follow Up Care 05/17/2022 11:48:41 With:MIGUELINA BROUSSARD, Andi Caputo, URL Address: [facility] [place] [address]- When: Unknown [facility] 12-11-2022 Discharge summary Author Janusz Davidson [facility] May 14, 2022 3:11pm Note Date/Time May 14, 2022 3:11pm [facility] [address] [place] [address] Discharge Summary Signed Patient: Mely José Luis Chambers MR #: [id number] : 1950 Acct:[id number] Age/Sex: 71 / M Adm Date: 2 Loc: 4N Room: 4B4010-[address]: Janusz Davidson DO Copies to: [...] % (Auto) 70.9, Lymph % (Auto) 18.1, [place] % (Auto) 7.4, Eos % (Auto) 2.5, Baso % (Auto) 1.1, Nucleat RBC Rel Count 0.1, Neut # (Auto) 4.7, Lymph # (Auto) 1.2, [place] # (Auto) 0.5, Eos # (Auto) 0.2, [...] administer with meals fluticasone propionate 50 mcg/actuation [place],Suspension 2 spray INTRANASAL DAILY PRN (Reason: Unknown) [...] <Electronically signed by Janusz Davidson DO> 05/14/[address] [place] [address] Work Phone: 1(596) 613-426112-11-2022 Progress note Author Bill Mcgee [facility] May 14, 2022 11:29am Note Date/Time May 14, 2022 11:29am [facility] [address] [place] [address] Gastroenterology PN Signed Patient: José Luis Faulkner MR #: [id number] : 1950 Acct:[id number] Age/Sex: 71 / M Adm Date: 2 Loc: Room: [address] [place] [address] Type: ADM INOo Attending Dr: Janusz Davidson [...] Propionate 2 spray 05/12/22 13:26 Fluticasone Propionate [place] 120 [place]/16 Gm Bottle INTRANASAL 05/12/23 13:25 DAILY PRN [...] 20:59 20 units BID MELANIE Administration Ipratropium [place] 0.5 mg 05/12/22 16:00 05/14/22 08:22 Ipratropium [place] 0.5 Mg/2.5 Ml Vial.Neb INHALATION 05/12/23 15:59 [...] <Electronically signed by Bill Mcgee MD> 05/14/221128 [facility] Work Phone: [phone]) 819-625412-10-2022 Progress note Author Janusz Davidson [facility] May 13, 2022 5:57pm Note Date/Time May 13, 2022 5:57pm [facility] [address] [place] [address] Hospitalist Progress Note Signed Patient: José Luis Faulkner MR #: [id number] : 1950 Acct:[id number] Age/Sex: 71 / M Adm Date: 2 Loc: Room: [address] [place] [address] Type: ADM INOo Attending Dr: Janusz Davidson [...] Propionate 2 spray 05/12/22 13:26 Fluticasone Propionate [place] 120 [place]/16 Gm Bottle INTRANASAL 05/12/23 13:25 DAILY PRN Unknown Furosemide 40 mg 05/13/22 18:45 Furosemide 40 Mg/4 Ml Vial IV-PUSH 05/13/23 18:44 BID@0800,1600 [facility] Magnesium Sulfate 2 gm in 50 mls @ 25 mls/hr 05/12/22 13:30 Magnesium Sulf 2gm-*Swfi* IV 05/12/23 13:29 DAILY PRN Magnesium < 1.6 Insulin Human NPH 20 units 05/12/22 21:00 05/13/22 08:26 Insulin Nph Human Isophane 300 Units/3 Ml Insuln.Pen SUBCUT 05/12/23 20:59 20 units BID MELANIE Administration Ipratropium [place] 0.5 mg 05/12/22 16:00 05/13/22 16:17 Ipratropium [place] 0.5 Mg/2.5 Ml Vial.Neb INHALATION 05/12/23 15:59 [...] <Electronically signed by Janusz Davidson DO> 05/13/[address] [place] [address] Work Phone: 1([phone]) 618-748212-09-2022 History and physical note Author Janusz Davidson [facility] May 12, 2022 8:50pm Note Date/Time May 12, 2022 8 :50pm [facility] [address] [place] [address] Hospitalist H&P Signed Patient: José Luis Faulkner MR #: [id number] : 1950 Acct:[id number] Age/Sex: 71 / M Adm Date: 2 Loc: Room: [address] [place] [address] Type: ADM IN Attending Dr: Janusz Davidson DO Copies to: Mona Davidson DO~ HPI DATE OF EXAMINATION: 05/12/22 CHIEF COMPLAINT: [...] negative unless noted below or in HPI [facility] Vaccinated for COVID-19?: Yes Medical History (Updated [...] spouse stay in in- law suite at [facility] home Meds Medications and Allergies Allergies [...] PO BID diabetes 02/24/21 [History Confirmed 05/12/22] kraqsawtwdlf-xsy-agarf acid-vit K-lycop 400 mcg-20 mcg-370 mcg tablet [...] % (Auto) 15.3 % (.) 05/12/22 11:45 [place] % (Auto) 5.6 % (.) 05/12/22 11:45 Eos % (Auto) 2.4 % (.) 05/12/22 11:45 Baso % (Auto) 1.0 % (.) 05/12/22 11:45 Nucleat RBC Rel Count 0.0 /100 WBC (0-0.5) 05/12/22 11:45 Neut # (Auto) 6.1 x10E3/uL (1.8-7.7) 05/12/22 11:45 Lymph # (Auto) 1.2 x10E3/uL (1.00-4.8) 05/12/22 11:45 [place] # (Auto) 0.4 x10E3/uL (0.0-0.8) 05/12/22 11:45 [...] 11:45 Documented By: Janusz Davidson DO 05/12/22 43 Signed By: <Electronically signed by Janusz Davidson DO> 05/12/222049 [facility] Work Phone: [phone]) 265-268112-09-2022 Consult note Author Bill Mcgee [facility] May 12, 2022 3:53pm Note Date/Time May 12, 2022 3 :46pm [facility] [address] [place] [address] Gastroenterology Consult Note Signed Patient: José Luis Faulkner MR #: [id number] : 1950 Acct:[id number] Age/Sex: 71 / M Adm Date: 2 Loc: Room: [address] [place] [address] Type: ADM IN Attending Dr: Janusz Davidson [...] approximately 24 hours and he went to [facility]. He was placedin observation there and told [...] PO BID diabetes 02/24/21 [History Confirmed 05/12/22] aphvgktwyohi-zwn-moygx acid-vit K-lycop 400 mcg-20 mcg-370 mcg tablet [...] % (Auto) 75.7 Lymph % (Auto) 15.3 [place] % (Auto) 5.6 Eos % (Auto) 2.4 Baso % (Auto) 1.0 Nucleat RBC Rel Count 0.0 Neut # (Auto) 6.1 Lymph # (Auto) 1.2 [place] # (Auto) 0.4 Eos # (Auto) 0.2 [...] MPV Neut % (Auto) Lymph % (Auto) [place] % (Auto) Eos % (Auto) Baso % (Auto) Nucleat RBC Rel Count Neut # (Auto) Lymph # (Auto) [place] # (Auto) Eos # (Auto) Baso # [...] weekend. Documented By: Bill Mcgee MD 05/12/22 1536 Signed By: <Electronically signed by Bill Mcgee MD> 05/12/22 5221 [facility] Work Phone: 1(855) 911-552111-30-2022 NotePROCEDURE: XR FOOT LT MIN 3 VIEWS [...] Electronically authenticated by: TERRY SHETTY Date: 2022-05-03 07:09[facility]10-20-2022 Evaluation + Plan note Future Scheduled Tests Laboratory* PSA Total 03/23/22 [facility]-20-2022 Hospital Discharge instructions Patient Education 03/23/2022 09:56:58 [...] have oneof these risk factors: ?Being of -[place] descent. ?Having a family history of prostate [...] you: Are older than age 55. Are -[place]. Have a father, brother, or uncle who [...] 03/01/2018 Document Revised: 05/03/2018 Document Reviewed: 03/01/2018 @Pay Patient Education 2020 [employer]. [facility] [place] 10-14-2022 Hospital Discharge instructions Follow Up Care 03/17/2022 12:37:20 With:Caterina BROUSSARD, Nicolás Chavez, KINSEY, AYAH Address: When:6 months [facility]10-07-2022 NotePROCEDURE: XR FOOT LT MIN 3 VIEWS [...] Electronically authenticated by: ENOC BACA Date: 2022-03-10 10:54[id number] Discharge instructions Patient Education 03/09/2022 15:32:50 Acute Urinary Retention, Male, Nthl-gr-Whhi Acute Urinary Retention, Male Acute urinary retention means that you cannot pee (urinate) at all, or that you pee too little and your bladder is not emptied completely. If it is not treated, it can lead to kidney damage or other serious problems. Follow these instructions at home: Take ejau-jij-uxhaweu and prescription medicines only as told by [...] 11/06/2008 Document Revised: 08/07/2019 Document Reviewed: 06/22/2017 @Pay Patient Education 2020 [employer]. 03/09/2022 15:32:45 Paraphimosis Paraphimosis Paraphimosis is a [...] pressure to the area. General instructions Take matj-hjq-nmhgneh and prescription medicines only as told by [...] and water are not available, use hand atmospheric physics professor. ?Ask when you should remove your dressing. [...] Paraphimosis needs to be treated rightaway. Take jhrh-xmg-jirrkuz and prescription medicines only as told by [...] 03/18/2010 Document Revised: 10/30/2018 Document Reviewed: 10/30/2018 @Pay Patient Education 2020 [employer]. Follow Up Care 02/08/2022 09:36:02 With:Deshawn Salinas URL Address:Unknown When: Unknown [facility] 09-10-2022 Evaluation + Plan noteExtracted from: Title:Discharge Note Author:MOIRA BROUSSARD, James Justen e:02/11/22 Discharge To, Anticipated II - Residential Unit Discharged to - Home with family [...] tab(s), Oral, Daily With When Contact Information Ahbay BROUSSARD, ELVER Wood Within 2 to 4 weeks [facility] [place] [address]- Additional Instructions: Parkinson's Disease Acute [...] Urinary retention. Relatively low suspicion for any COOLER OPERATOR cause. Cannot have MRI studies here because [...] reflux uropathy) Extracted from: Title:Urology Consult Note Author:MIGUELINA BROUSSARD, Radha Caputo Date:02/09/22 Impression and Plan Impression: #1. This [...] everything else going on we will consider COOLER OPERATOR causes such as brain pathology or thoracic [...] be observation status. Extracted from: Title:ED Note Author:Prieto Castro PA-C Justen e:02/08/22 Parkinsons (G20: Parkinson's disease) Urinary [...] (FT) Appointment Date:02/15/2022 02:30:00 PM Scheduled [facility] Appoint[facility] Type:PUL Pulmonary Function Test (FT) Appointment Date:02/15/2022 03:30:00 PM Scheduled Provider: [facility] Appoint[facility] Type:XR Chest (FT) Appointment Date:02/20/2022 10:00:00 AM Scheduled Provider:Deshawn Salinas Location:[facility] Appointment Type:URO New Patient Future Scheduled Tests Radiology* XR Chest 2 Views 02/15/22 [facility]09-10-2022 Hospital Discharge instructions Patient Education 02/11/2022 11:20:03 [...] responds to medicines differently. Your response may price changer time. Work with your health care provider to find the best medicines for you. Speech, occupational, and physical therapy. Deep brain stimulation surgery to reduce tremors and other involuntary movements. Follow these instructions at home: Medicines Take bqpl-vfa-vqfyaqk and prescription medicines only as told by [...] 05/18/2001 Document Revised: 08/07/2019 Document Reviewed: 08/07/2019 @Pay Patient Education 2020 [employer]. 02/11/2022 11:19:59 Acute Urinary Retention, Male Acute [...] complications. Follow these instructions at home: Take gdfu-lwh-kplmrys and prescription medicines only as told by [...] 08/27/2001 Document Revised: 05/03/2018 Document Reviewed: 06/22/2017 @Pay Patient Education Endo[facility]ex Follow Up Care 02/08/2022 20:46:13 With:Abhay BROUSSARD, ELVER Wood Address: [place] [id number]- When:2 to 4 weeks [facility]09-01-2022 Hospital Discharge instructions Patient Education 02/02/2022 16:55:48 [...] alcohol may irritate the prostate. Medicines Take hcim-rqu-cxsprio and prescription medicines only as told by [...] 02/16/2005 Document Revised: 05/03/2018 Document Reviewed: 03/07/2018 @Pay Patient Education 2020 [employer]. Follow Up Care 02/02/2022 12:21:30 With:Mona Baker Address: [address] [place] [address] [place] (1) When:02/05/2022 15:28:10 [facility]08-22-2022 Evaluation + Plan note Diagnostic Tests Pending * Methylmalonic Acid 01/23/22 [facility]08-15-2022 Evaluation note* Encounter Date Diagnosis Assessment Notes [...] Jan, Chronic antibiotic suppression (ICD-10 - Z79.2) [facility] Other 07-29-2022 Hospital Discharge instructions Patient Education [...] Slowly return to your usual activities. Take etvk-nmb-ljkuboh and prescription medicines only as told by [...] 02/13/2002 Document Revised: 10/21/2018 Document Reviewed: 10/21/2018 @Pay Patient Education 2020 [employer]. 2021 20:32:43 COVID-19: How to Protect Yourself and Others - [facility] COVID-19: How to Protect Yourself and Others Know how it spreads There is currently no vaccine to prevent coronavirus disease 2019 (COVID-19). The best way to prevent illness is to avoid being exposed to this virus. The virus is thought to spread mainly from ekcxtj-rj-tffmya. ?Between people who are in close contact [...] are not readily available, use a hand atmospheric physics professor that contains at least 60% alcohol. Cover [...] at higher risk of getting very sick.www.cdc.gov/cor onavirus/2019-ncov/tsic-jfkjb-ppjkaskizmt/femrnl-bs-tefdtq-risk.html Cover your mouth and nose with a [...] available, clean your hands with a hand atmospheric physics professor that contains at least 60% alcohol. Clean and disinfect Clean AND disinfect frequently touched surfaces daily. This includes tables, doorknobs, light switches, countertops, handles, desks, phones, keyboards, toilets, faucets, and sinks. www.cdc.gov/coronav irus/2019-ncov/yappsbx-raseplx-ypvj/tpkcwhnxxnvf-mpny-idie.html If surfaces are dirty, clean them: Use [...] 09/16/2019 Document Revised: 12/11/2019 Document Reviewed: 12/11/2019 [employer] Patient Education 2019 @[employer] 2021 20:32:43 COVID-19 Frequently Asked Questions [...] the coronavirus come from? In May 2019, [place] told the World Health Organization (WHO) of several cases of lung disease (human respiratory illness). These cases were linked to an open seafood and livestock market in the [facility]. The link to the seafood and [...] and virus naming World Health Organization (WHO): www.who.int/emergencies/diseases/vnevu-yxqxiujprgg-6511/technical-g uidance/jmlmwe-wzh-qumruhpkvhz-disease-(covid-2019)-cfg-tde-nbgcy-qkvz-mdkzve-zl Who is at risk for complications from [...] relieve his or her symptoms by using nexj-xjx-rmzafwx medicines that treat sneezing, coughing, and runny [...] water are not available, use alcohol-based hand atmospheric physics professor. Avoid touching your face, mouth, nose, or [...] Prevention (CDC): www.cdc.gov/coronavirus/2019-ncov/travelers/index.html World Health Organization (WHO): www.who.int/emergencies/diseases/qoivh-dynzujrjhfo-9705/travel-advice Know the risks and take action to [...] water are not available, use alcohol-based hand atmospheric physics professor. Cough or sneeze into a tissue, sleeve, [...] in hot, soapy water or use a locomotive crane engineer. Air-dry your dishes. Wash laundry in hot [...] Health Organization (WHO) Information and news updates: www.who.int/emergencies/diseases/uybnb-qvkwmgvctix-8805 Coronavirus health topic: www.who.int/health-topics/coronavirus Questions and answers on COVID-19: www.who.int/news-room/q-a-detail/c-f-hdmttejshsqom Global tracker: SGB.qcue [place] [employer] (AAP) Information for families: www.healthychildren.org/Citizen Of [place]/health-issues/conditions/chest-lungs/Pages /4292-Adusl-Uedcnfygeum.aspx The coronavirus situation is changing rapidly. Check [...] 09/16/2019 Document Revised: 09/16/2019 Document Reviewed: 09/16/2019 @Pay Patient Education 2019 [employer]. 2021 20:32:43 COVID-19 COVID-19 COVID-19 is a [...] to fight infection (immunocompromised). Live in a penitentiary or long-term care facility. Have a long-term [...] managed at home with rest, fluids, and yofq-nmb-nsjqqdz medicines. Treatment for a serious infection usually [...] are safe for you. General instructions Take skfl-uqa-kpukmhu and prescription medicines only as told by [...] water are not available, usean alcohol-based hand atmospheric physics professor. ?Avoid touching your mouth, face, eyes, or [...] water are not available, use alcohol-based hand atmospheric physics professor. Stay away from other members of your [...] have a weak immunity, live in a penitentiary, or have chronic disease. There is no [...] 06/26/2019 Document Revised: 10/16/2019 Document Reviewed: 06/26/2019 @Pay Patient Education 2020 [employer] Follow Up Care 2021 15:21:06 With:Mona Baker Address: [place] [place] [address] Business (1) When:01/02/2022 19:16:15 Comments:Follow-up with your primary care provider in 3 to 5 days. If symptoms worsen, do not improve, or new symptoms arise please report back to emergency department for further evaluation. [facility]07-26-2022 History of Present illness Narrative* Ye Lobo [...] Testing: None Ye Lobo documented in this [id number] NotePROCEDURE: XR FOOT LT MIN 3 VIEWS [...] Electronically authenticated by: TERRY SHETTY Date: 2021-11-04 17:19[facility]05-25-2022 Hospital Discharge instructions Follow Up Care 10/26/2021 09:06:29 With:Olivia BROUSSARD, Mona Ward Address: [place] [place] [address]- When: Unknown [facility] 05-17-2022 Evaluation [...] artery disease (I25.10: Atherosclerotic heart disease of creek coronary artery without angina pectoris) 7. PAF [...] mg= 1 tab(s), Oral, BID Vitamin D, [address] International_Unit, Oral, Daily With When Contact Information Mona Baker Within 3 to [address] [place] [address]- Business (1) Additional Instructions: Weakness, Wjte-cd-Wzqc Weakness, Lhni-qa-Lwhr discharge time > 30 min Extracted from: [...] artery disease (I25.10: Atherosclerotic heart disease of [place] coronary artery without angina pectoris) - ASA, [...] Initial Observation Care/Day Straight Fwd 30 min 84293 2. Diabetes (E11.9: Type 2 diabetes mellitus without complications) - 70/30, SSI 3. Hypertension (I10: Essential (primary) hypertension) - coreg, imdur 4. CKD (chronic kidney disease), stage III (N18.30: Chronic kidney disease, stage 3 unspecified) - stable 5. Hyperlipidemia (E78.5: Hyperlipidemia, unspecified) - atorvastatin 6. Coronary artery disease (I25.10: Atherosclerotic heart disease of creek coronary artery without angina pectoris) - ASA, [...] Provider Vital Signs Observation Care Discharge Day [address] Occupational Therapy Evaluate Patient, Develop a Plan [...] artery disease (I25.10: Atherosclerotic heart disease of [place] coronary artery without angina pectoris) - ASA, [...] Tests Radiology* XR Chest 2 Views 11/07/21 [facility]05-16-2022 Hospital Discharge instructions Patient Education 10/17/2021 09:37:43 Weakness, Mxdk-rq-Expt Weakness Weakness is a lack of strength. [...] about working with a physical therapist or six sigma black trainer to help you get stronger. General instructions Take ptut-zna-udtigms and prescription medicines only as told by [...] 05/03/2009 Document Revised: 12/25/2018 Document Reviewed: 12/25/2018 @Pay Patient Education 2020 [employer]. 10/17/2021 09:37:43 Weakness, Bnzx-fn-Ngmx Weakness Weakness is a lack of strength. [...] about working with a physical therapist or six sigma black trainer to help you get stronger. General instructions Take xwyg-cqi-cqbeynt and prescription medicines only as told by [...] 05/03/2009 Document Revised: 12/25/2018 Document Reviewed: 12/25/2018 @Pay Patient Education 2020 [employer]. Follow Up Care 10/14/2021 16:14:12 With:Mona Baker Address: [address] [place] [address]- Business (1) When:3 to 5 days [facility]05-12-2022 Hospital Discharge instructions Patient Education 10/13/2021 12:21:24 [...] Consider working with a physical therapist or six sigma black trainer who can develop an exercise plan to help you gain muscle strength. General instructions Take hubv-bhm-fnpifrj and prescription medicines only as told by [...] 05/21/2006 Document Revised: 12/25/2018 Document Reviewed: 12/25/2018 Elsevier Patient Education 2020 [employer]. Follow Up Care 10/06/2021 17:41:21 With:Mona Baker Address: [address] [place] [address]- Business (1) When:10/17/2021 10:40:00 [facility]05-12-2022 Evaluation + Plan noteExtracted from: Title:APSO Note Author:Delvin SANTANA MD Date: 1. Other acute kidney failur e (N17.8: Other acute kidney failure) - secondary to pre-renal causes - Cr decreased with IVF - acute kidney injury on CKD on admission as above Ordered: Sbsq Observation Care/Day Moderate 25 min 85105 2. CKD (chronic kidney disease), stage III [...] artery disease (I25.10: Atherosclerotic heart disease of [place] coronary artery without angina pectoris) - ASA, [...] with Home Health Extracted from: Title:APSO Note Author:Delvin SANTANA MD [...] artery disease (I25.10: Atherosclerotic heart disease of [place] coronary artery without angina pectoris) - ASA, [...] Ordered: Sbsq Observation Care/Day Moderate 25 min 38587 2. CKD (chronic kidney disease), stage III [...] artery disease (I25.10: Atherosclerotic heart disease of [place] coronary artery without angina pectoris) - ASA, [...] Other specified health status) - SCDs, eliquis Extracted from: Title:APSO Note Author:Delvin SANTANA MD Date: 2 1. Other acute kidney failur [...] artery disease (I25.10: Atherosclerotic heart disease of [place] coronary artery without angina pectoris) - ASA, [...] artery disease) (I25.10: Atherosclerotic heart disease of [place] coronary artery without angina pectoris) No active [...] Device Cardiac Monitoring Continuous Pulse Oximetry COVID-19 ([facility]) Diabetic/Calorie Control Diet Education Fall Risk Folate Level Hypoglycemia Protocol Responsive Patient Hypoglycemia Protocol Unresponsive Patient Magnesium Level Notify Provider Vital Signs Notify Provider Vital Signs Occupational Therapy Evaluate Patient, Develop a Plan of Care and Implement Plan Physical Therapy Evaluate Patient, Develop a Plan of Care and Implement Plan Place in Status Precautions Precautions Rapid COVID Antigen ([facility]) Resuscitation Status - Full Routine Capillary Glucose POC RPR with Conf Rfx Urine Culture Vital Signs Vitamin B12 Level Vitamin D 25 Hydroxy Weight Anticipated stay less than 2 midnights. Patient will be observation status. Extracted from: Title:ED Note Author:Cecily Manzano, Annemarie Wade Smith te:10/06/21 1. Altered mental status (R4 1.82: [...] TCU Appointment Date:10/20/2021 10:30:00 AM Scheduled Provider: Location:.CARDIO Appointment Type:PUL Pulmonary Function Test (FT) Appointment Date:10/20/2021 11:30:00 AM Scheduled Provider: Location:.XRAY Appointment Type:XR Chest (FT) Appointment Date:12/08/2021 10:00:00 AM Scheduled Provider: Location:.CARDIO Appointment Type:NCV ICD (FT) Future Scheduled Tests Radiology* XR Chest 2 Views 10/20/21 [facility]04-28-2022 History of Present illness Narrative* Ye Lobo [...] Testing: None Ye Lobo documented in this [id number] History of Present illness Narrative* Ye Lobo MD - 06/21/2021 12:26 PM EST BEHAVIORAL HEALTH PSYCHIATRIC PROGRESS NOTE 06/21/2021 José Luis Gil, a 70 y.o. male, to reestablish care at [facility]. Patient is a previously known patient, who was under my care for 8 years at [facility] Patient is referred by Mona Baker MD . Interval History: Patient is a 70-year-old , retired white male who resides in [facility] with his spouse. Patient was under my care for almost 7 years in [facility]. Patient stated that he was seeing psychNP [...] symptoms since he was last seen in [place]. No new stressors reported. Interpersonal issues were [...] Testing: None Ye Lobo documented in this [id number] Evaluation + Plan note Future Appointments Appointment Date:09/08/2021 10:00:00 AM Scheduled Provider: Location:FTCARDIO Appointment Type:NCV ICD (FT) Appointment Date:10/13/2021 02:30:00 PM Scheduled Provider:Armani Yarbrough DO [facility] Type:ONC Office Visit 15 (FT) Future Scheduled Tests Laboratory* CBC w/ Auto Diff 10/11/21 * Comprehensive Metabolic Panel 10/11/21 * Ferritin 10/11/21 * Iron Level 10/11/21 * Iron Percent Saturation 10/11/21 [facility]05-09-2020 Evaluation + Plan note Future Appointments Appointment Date:08/16/2023 10:00:00 AM Scheduled Provider: [facility] App[facility] Type:NCV ICD (FT) Appointment Date:10/11/2023 02:15:00 [...] 04/09/23 * MRI Brain w/o Contrast 03/15/23 [facility]05-09-2020 Evaluation + Plan note Future Appointments Appointment Date:08/16/2023 10:00:00 AM Scheduled Provider: [facility] Appoint[facility] Type:NCV ICD (FT) Appointment Date:10/11/2023 02:15:00 [...] 04/09/23 * MRI Brain w/o Contrast 03/15/23 [facility]03-15-2020 Evaluation + Plan note Future Appointments Appointment Date:08/10/2022 09:30:00 AM Scheduled Provider: Location:FT.CARDIO Appointment Type:NCV ICD (FT) Appointment Date:08/16/2022 01:00:00 PM Scheduled Provider:Andi WARE MD Location:[facility] Appointment Type:URO Office Visit Appointment Date:08/30/2022 01:00:00 PM Scheduled Provider:Andi WARE MD Location:[facility] Appointment Type:URO Office Visit Future Scheduled Tests Laboratory* PSA Total 03/23/22 [facility] [id number] Evaluation + Plan note Future Appointments Appointment Date:02/15/2023 10:30:00 AM Scheduled Provider: Location:FT.CARDIO Appointment Type:NCV ICD (FT) Appointment Date:07/23/2023 12:15:00 PM Scheduled Provider:Andi WARE MD [facility]O Office Visit Diagnostic Tests Pending * UroVysion Fish and Urine Cyto ([facility]) 01/16/23 Future Scheduled Tests Laboratory* PSA Total 03/23/22 [facility]02-19-2020 Evaluation + Plan note Future Appointments Appointment Date:05/17/2023 10:30:00 AM Scheduled Provider: Location:FT.CARDIO Appointment Type:NCV ICD (FT) Appointment Date:07/23/2023 12:15:00 PM Scheduled Provider:Andi WARE MD [facility] Type:URO Office Visit Appointment Date:10/11/2023 02:15:00 [...] 04/09/23 * MRI Brain w/o Contrast 03/15/23 [facility] N[facility] - Reported* Parkinsonism * Neurologic Evaluation. [id number] B 101 DO Work Phone: chief complaint Narrative - Reported* Parkinsonism * Neurologic Evaluation. [id number] Work Phone: chief complaint+Reason for visit Narrative* Chief Complaint rectal bleeding Reason for Visit Acute lower GI bleed ing Haemorrhage postprocedure Rectal bleeding [facility] Work Phone: Evaluation + Plan note Future Appointments Appointment Date:10/20/2021 10:30:00 AM Scheduled Provider: Location:FT.CARDIO Appointment Type:PUL Pulmonary Function Test (FT) Appointment Date:10/20/2021 11:30:00 AM Scheduled Provider: Location:FT.XRAY Appointment Type:XR Chest (FT) Appointment Date:12/08/2021 10:00:00 AM Scheduled Provider: Location:FT.CARDIO Appointment Type:NCV ICD (FT) Future Scheduled Tests Radiology* XR Chest 2 Views 10/20/21 [facility] Future Appointments Appointment Date:11/07/2021 12:30:00 PM Scheduled Provider: Location:FT.CARDIO Appointment Type:PUL Pulmonary Function Test (FT) Appointment Date:11/07/2021 01:30:00 PM Scheduled Provider: [facility] Type:XR Chest (FT) Appointment Date:12/08/2021 10:00:00 AM Scheduled Provider: [facility] Appoint[facility] Type:NCV ICD (FT) Future Scheduled Tests Radiology* XR Chest 2 Views 11/07/21 [facility] evaluation + Plan note Future Appointments Appointment Date:12/08/2021 10:00:00 AM Scheduled Provider: [facility] Appoint[facility] Type:NCV ICD (FT) [facility] Future Appointments Appointment Date:02/20/2022 10:00:00 AM Scheduled Provider:Deshawn Salinas Location:[facility] Appointment Type:URO New Patient [facility] Evaluation + Plan note Future Appointments Appointment Date:03/09/2022 02:00:00 PM Scheduled Provider:Deshawn Salinas Location:[facility] Appointment Type:URO New Patient [facility] Evaluation + Plan note Future Appointments Appointment Date:03/23/2022 09:00:00 AM Scheduled Provider:Deshawn Salinas Location:[facility] Appointment Type:URO Office Visit [facility] evaluation + Plan note Future Appointments Appointment Date:03/31/2022 09:30:00 AM Scheduled Provider:Nicolás Diggs MD Location[facility] Appointment Type:Pulmonary Follow Up (FT) Future Scheduled Tests Laboratory* PSA Total 03/23/22 [facility] Evaluation + Plan note Future Appointments Appointment Date:05/09/2022 10:30:00 AM Scheduled Provider: Location:[facility] Appointment Type:Urology FT Appointment Date:05/09/2022 11:45:00 AM Scheduled Provider: Location:[facility] Appointment Type:Urology FT Future Scheduled Tests Laboratory* PSA Total 03/23/22 [facility] Future Appointments Appointment Date:06/22/2022 12:45:00 PM Scheduled Provider: Location:FT.CARDIO Appointment Type:PUL Pulmonary Function Test (FT) Appointment Date:06/22/2022 01:45:00 PM Scheduled Provider: Location:FT.XRAY Appointment Type:XR Chest (FT) Appointment Date:07/20/2022 01:45:00 PM Scheduled Provider:Landon WILL MD Location:[facility] Appointment Type:BAD Follow Up Future Scheduled Tests Laboratory* PSA Total 03/23/22 Radiology* XR Chest 2 Views 06/22/22 [facility] evaluation + Plan note Future Appointments Appointment Date:07/20/2022 01:45:00 PM Scheduled Provider:Landon WILL MD Location:[facility] Appointment Type:BADH Follow Up Future Scheduled Tests Laboratory* PSA Total 03/23/22 [facility] Future Appointments Appointment Date:08/16/2022 01:00:00 PM Scheduled Provider:Andi WARE MD Location:[facility] Appointment Type:URO Office Visit Appointment Date:08/30/2022 01:00:00 PM Scheduled Provider:Andi WARE MD Location:[facility] Appointment Type:URO Office Visit Future Scheduled Tests Laboratory* PSA Total 03/23/22 [facility] Future Appointments Appointment Date:08/23/2022 10:15:00 AM Scheduled Provider:Andi WARE MD Location:[facility] Appointment Type:URO Office Visit Appointment Date:08/30/2022 01:00:00 PM Scheduled Provider:Andi WARE MD Location:[facility] Appointment Type:URO Office Visit Appointment Date:11/09/2022 10:30:00 AM Scheduled Provider: Location:CARDIO Appointment Type:NCV ICD (FT) Future Scheduled Tests Laboratory* PSA Total 03/23/22 [facility] Future Appointments Appointment Date:09/25/2022 11:15:00 AM Scheduled Provider:Andi WARE MD [facility] Type:URO Office Visit Appointment Date:11/09/2022 10:30:00 AM Scheduled Provider: Location:FT.CARDIO Appointment Type:NCV ICD (FT) Future Scheduled Tests Laboratory* PSA Total 03/23/22 [facility] Evaluation + Plan note Future Appointments Appointment Date:11/09/2022 10:30:00 AM Scheduled Provider: Location:FT.CARDIO Appointment Type:NCV ICD (FT) Future Scheduled Tests Laboratory* PSA Total 03/23/22 [facility] evaluation + Plan note Future Appointments Appointment Date:11/09/2022 10:30:00 AM Scheduled Provider: Location:FT.CARDIO Appointment Type:NCV ICD (FT) Diagnostic Tests Pending * UroVysion Fish and Urine Cyto ([facility]) 10/31/22 Future Scheduled Tests Laboratory* PSA Total 03/23/22 [facility] Future Appointments Appointment Date:02/15/2023 10:30:00 AM Scheduled Provider: Location:.CARDIO Appointment Type:NCV ICD (FT) Diagnostic Tests Pending * Urine Culture 11/24/22 Future Scheduled Tests Laboratory* PSA Total 03/23/22 Radiology* CT Abdomen/Pelvis w/ Contrast 11/24/22 [facility] Future Appointments Appointment Date:02/15/2023 10:30:00 AM Scheduled Provider: Location:.CARDIO Appointment Type:NCV ICD (FT) Future Scheduled Tests Laboratory* PSA Total 03/23/22 [facility] Future Appointments Appointment Date:07/23/2023 12:15:00 PM Scheduled Provider:Andi WARE MD [facility] Type:URO Office Visit Future Scheduled Tests Laboratory* PSA Total 03/23/22 [facility] Future Appointments Appointment Date:03/09/2023 10:00:00 AM Scheduled Provider: Location:.CAT SCAN Appointment Type:CT Head/Neck (FT) Appointment Date:05/17/2023 10:30:00 AM Scheduled Provider: [facility] Appoint[facility] Type:NCV ICD (FT) Appointment Date:07/23/2023 12:15:00 PM Scheduled Provider:Andi WARE MD Location:[facility] Appointment Type:URO Office Visit Future Scheduled Tests Laboratory* PSA Total 03/23/22 Radiology* CT Head or Brain w/o Contrast 03/09/23 [facility] Future Appointments Appointment Date:04/12/2023 09:00:00 AM Scheduled Provider:Armani Yarbrough DO [facility] Appoint[facility] Type:ONC Office Visit 30 (FT) Appointment Date:05/17/2023 10:30:00 AM Scheduled Provider: [facility] Appointment Type:NCV ICD (FT) Appointment Date:07/23/2023 12:15:00 PM Scheduled Provider:Andi WARE MD Location:[facility] Appointment Type:URO Office Visit Appointment Date:10/22/2023 10:30:00 AM Scheduled Provider:Nicolás Diggs MD Location[facility] Appointment Type:Pulmonary Follow Up (FT) Future Scheduled Tests Radiology* CT Chest w/o Contrast 04/09/23 * MRI Brain w/o Contrast 03/15/23 [facility] Future Appointments Appointment Date:07/23/2023 12:15:00 PM Scheduled Provider:Andi WARE MD Location:[facility] Appointment Type:URO Office Visit Appointment Date:08/16/2023 [...] 04/09/23 * MRI Brain w/o Contrast 03/15/23 [facility] Future Appointments Appointment Date:10/11/2023 02:15:00 PM Scheduled Provider:Armani Yarbrough DO [facility] Appoint[facility] Type:ONC Office Visit 30 (FT) Appointment Date:10/22/2023 10:30:00 AM Scheduled Provider:Nicolás Diggs MD [facility] Type:Pulmonary Follow Up (FT) Future [...] 04/09/23 * MRI Brain w/o Contrast 03/15/23 [facility] Future Appointments Appointment Date:10/31/2023 01:45:00 PM Scheduled Provider:Armani Yarbrough DO Location:FT.ONCOLOGY Appointment Type:ONC Office Visit 30 (FT) Diagnostic [...] 04/09/23 * MRI Brain w/o Contrast 03/15/23 [facility] Future Appointments Appointment Date:10/31/2023 01:45:00 PM Scheduled Provider:Armani Yarbrough DO Location:.ONCOLOGY Appointment Type:ONC Office Visit 30 (FT) Appointment Date:11/09/2023 09:00:00 AM Scheduled Provider: [facility] Appoint[facility] Type:Anticoagulation Initial Assessment 60 (F Future Scheduled Tests Laboratory* CBC w/ Auto Diff 07/13/23 * Comprehensive Metabolic Panel 07/13/23 * Ferritin 07/13/23 * Iron Level 07/13/23 * Iron Percent Saturation 07/13/23 * Transferrin 07/13/23 Radiology* CT Chest w/o Contrast 04/09/23 * MRI Brain w/o Contrast 03/15/23 [facility] Future Appointments Appointment Date:11/09/2023 09:00:00 AM Scheduled Provider: [facility] Appoint[facility] Type:Anticoagulation Initial Assessment 58 (F Appointment Date:12/05/2023 10:00:00 AM Scheduled Provider:Nicolás Diggs MD Location:.[facility] Appointment Type:Pulmonary Follow Up (FT) Appointment Date:10/30/2024 01:45:00 PM Scheduled Provider:Armani Yarbrough DO [facility] Appoint[facility] Type:ONC Office Visit 30 (FT) Future [...] 04/09/23 * MRI Brain w/o Contrast 03/15/23 [facility] Future Appointments Appointment Date:11/16/2023 02:45:00 PM Scheduled Provider: Location:.CARDIO Appointment Type:Anticoagulation Follow Up 15 (FT) Appointment Date:11/22/2023 02:00:00 PM Scheduled Provider: Location:.ONCOLOGY Appointment Type:ONC Injectafer (FT) Appointment Date:12/05/2023 10:00:00 AM Scheduled Provider:Nicolás [...] 04/09/23 * MRI Brain w/o Contrast 03/15/23 [facility] Future Appointments Appointment Date:11/23/2023 03:15:00 PM Scheduled Provider: Location:.CARDIO Appointment Type:Anticoagulation Follow Up 15 (FT) Appointment Date:12/05/2023 10:00:00 AM Scheduled Provider:Nicolás Diggs MD [facility] Type:Pulmonary Follow Up (FT) Appointment [...] 04/09/23 * MRI Brain w/o Contrast 03/15/23 [facility] Future Appointments Appointment Date:12/14/2023 11:45:00 AM Scheduled Provider: [facility] Appoint[facility] Type:Anticoagulation Follow Up 15 () Appointment Date:12/20/2023 12:00:00 PM Scheduled Provider: [facility] App[facility] Type:CT Chest () Appointment Date:01/23/2024 11:00:00 AM Scheduled Provider:Nicolás Diggs MD Location:.[facility] Appointment Type:Pulmonary Follow Up () Appointment Date:10/30/2024 01:40:00 PM Scheduled Provider:Armani Yarbrough DO [facility] Appoint[facility] Type:ONC Office Visit 30 () Future [...] 04/09/23 * MRI Brain w/o Contrast 03/15/23 [facility] Future Appointments Appointment Date:12/21/2023 11:45:00 AM Scheduled Provider: [facility] Appoint[facility] Type:Anticoagulation Follow Up 15 () Appointment Date:12/27/2023 08:15:00 PM Scheduled Provider: Location:.SLEEP LAB_ Appointment Type:DIRECTOR GENERAL Sleep Study PSG (FT) Appointment Date:01/10/2024 10:30:00 AM Scheduled Provider: [facility] Appointment Type:NCV ICD (FT) Appointment Date:01/23/2024 11:00:00 AM Scheduled Provider:Nicolás Diggs MD [facility] Type:Pulmonary Follow Up (FT) Appointment Date:01/31/2024 09:30:00 AM Scheduled Provider: Location:[facility] Appointment Type:Urology CALL PAT FT Appointment Date:02/05/2024 11:00:00 AM Scheduled Provider: Location:[facility] Appointment Type:Urology FT Appointment Date:10/30/2024 01:40:00 PM Scheduled Provider:Armani Yarbrough DO [facility] Appoint[facility] Type:ONC Office Visit 30 (FT) Future [...] 04/09/23 * MRI Brain w/o Contrast 03/15/23 [facility] Future Appointments Appointment Date:12/28/2023 01:45:00 PM Scheduled Provider: [facility] Appoint[facility] Type:Anticoagulation Follow Up 15 (FT) Appointment Date:01/10/2024 10:30:00 AM Scheduled Provider: [facility] Appointment Type:NCV ICD (FT) Appointment Date:01/23/2024 11:00:00 AM Scheduled Provider:Nicolás Diggs MD [facility] Type:Pulmonary Follow Up (FT) Appointment Date:01/31/2024 09:30:00 AM Scheduled Provider: Location:[facility] Appointment Type:Urology CALL PAT FT Appointment Date:02/05/2024 11:00:00 AM Scheduled Provider: Location:[facility] Appointment Type:Urology FT Appointment Date:10/30/2024 01:40:00 PM Scheduled Provider:Armani Yarbrough DO [facility] Appoint[facility] Type:ONC Office Visit 30 (FT) Future [...] 04/09/23 * MRI Brain w/o Contrast 03/15/23 [facility] Evaluation + Plan note Future Appointments Appointment Date:01/11/2024 01:45:00 PM Scheduled Provider: Location:.CARDIO Appointment Type:Anticoagulation Follow Up 15 (FT) Appointment Date:01/23/2024 11:00:00 AM Scheduled Provider:Nicolás Diggs MD Location:.[facility] Appointment Type:Pulmonary Follow Up (FT) Appointment Date:01/31/2024 09:30:00 AM Scheduled Provider: Location:[facility] Appointment Type:Urology CALL PAT FT Appointment Date:02/05/2024 11:00:00 AM Scheduled Provider: Location:[facility] Appointment Type:Urology FT Appointment Date:04/10/2024 11:00:00 AM Scheduled Provider: [facility] Appoint[facility] Type:NCV Pacemaker (FT) Appointment Date:10/30/2024 01:40:00 PM Scheduled Provider:Armani Yarbrough DO [facility] Appoint[facility] Type:ONC Office Visit 30 (FT) Future [...] 04/09/23 * MRI Brain w/o Contrast 03/15/23 [facility] Evaluation + Plan note Future Appointments Appointment Date:01/31/2024 09:30:00 AM Scheduled Provider: Location:[facility] Appointment Type:Urology CALL PAT FT Appointment Date:02/05/2024 11:00:00 AM Scheduled Provider: Location:[facility] Appointment Type:Urology FT Appointment Date:02/08/2024 02:00:00 PM Scheduled Provider: [facility] Appoint[facility] Type:Anticoagulation Follow Up 15 (FT) Appointment Date:04/10/2024 11:00:00 AM Scheduled Provider: [facility] Appoint[facility] Type:NCV Pacemaker (FT) Appointment Date:10/30/2024 01:40:00 PM Scheduled Provider:Armani Yarbrough DO [facility] Appoint[facility] Type:ONC Office Visit 30 (FT) Future [...] 04/09/23 * MRI Brain w/o Contrast 03/15/23 [facility] Evaluation + Plan note Future Appointments Appointment Date:02/06/2024 04:00:00 PM Scheduled Provider: [facility] App[facility] Type:NM PET w/ CT Scan Skull Base to Midthigh Appointment Date:02/08/2024 02:00:00 PM Scheduled Provider: Location:.CARDIO Appointment Type:Anticoagulation Follow Up 15 (FT) Appointment Date:04/10/2024 11:00:00 AM Scheduled Provider: [facility] Appoint[facility] Type:NCV Pacemaker (FT) Appointment Date:10/30/2024 01:40:00 PM Scheduled Provider:Armani Yarbrough DO Location:.ONCOLOGY Appointment Type:ONC Office Visit 30 (FT) Diagnostic [...] 04/09/23 * MRI Brain w/o Contrast 03/15/23 [facility] Evaluation note* Diagnosis Bipolar 1 disorder, mixed, mild (HCC)- Primary Generalized anxiety disorder Long-term use of high-risk [facility] Bipolar 1 disorder, manic, mild (HCC)- Primary Generalized anxiety disorder Long-term use of high-risk medication [facility] Diagnosis Bipolar 1 disorder, manic, mild (HCC)- Primary Generalized anxiety disorder Long-term use of high-risk medication [facility] Diagnosis Onset Date Resolution Status Acute lower GI bleeding acut e [facility] Work Phone: Evaluation note* Diagnosis Onset Date Resolution Status Acute lower GI bleeding acut e Haemorrhage postprocedure ac [place] Rectal bleeding acute [facility] Work Phone: Evaluation noteNo InformationNonortheast [facility] [employer] Other Evaluation note* Diagnosis Memory loss- Primary Parkinsonism, unspecified Parkinsonism type Bipolar disorder, in partial remission, most recent episode mixed (CMS/HCC) (HCC) Polypharmacy Issue of repeat [facility] Diagnosis Mild dementia without behavioral disturbance, psychotic disturbance, mood disturbance, or anxiety, unspecified dementia type (HCC)- Primary B12 deficiency Acquired hypothyroidism Unspecified hypothyroidism [facility] Diagnosis Parkinsonism, unspecified Parkinsonism type- Primary Cognitive impairment Unspecified persistent mental disorders due to conditions classified elsewhere documented in this encounter [facility] Work Phone: Evaluation note* Diagnosis 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 S/P PTCA (percutaneous [...] sleep apnea, adult documented in this encounter [facility] Work Phone: Evaluation noteNo assessment information available [facility] Work Phone: Evaluation note* Diagnosis 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- Primary Ventricular tachycardia [...] 2 diabetes mellitus without complication, unspecified whether senior living insulin use (Multi) Class 1 obesity without serious comorbidity with body mass index (BMI) of 32.0 to 32.9 in adult, unspecified obesity type Mild dementia without behavioral disturbance, psychotic disturbance, mood disturbance, or anxiety, unspecified dementia type (Multi) documented in this encounter [facility] Work Phone: Evaluation note* Diagnosis Bipolar 1 disorder, manic, full remission (HCC)- Primary Generalized anxiety disorder Long-term use of high-risk medication [facility] Onset Date Resolution Status Chronic antibiotic suppression acute Osteomyelitis of ankle and foot [facility] Work Phone: Evaluation note* Diagnosis Onset Date Resolution Status Chronic antibiotic suppression acute Osteomyelitis of ankle and foot acute Osteomyelitis of ankle and foot [facility] Work Phone: Evaluation note* Diagnosis Generalized anxiety disorder- Primary [facility] Diagnosis Bipolar 1 disorder, manic, full [...] Atherosclerosis of aorta [facility] Diagnosis Parkinson's disease with dyskinesia and fluctuating manifestations (CMS/HCC)- Primary Cognitive impairment Unspecified persistent mental disorders due to conditions classified elsewhere History of stroke Transient ischemic attack (TIA), and cerebral infarction without residual deficits Obstructive sleep apnea, adult Left foot drop Other acquired deformity of ankle and foot Mild Lewy body dementia without behavioral disturbance, psychotic disturbance, mood disturbance, or anxiety (CMS/HCC) [facility] Author Bill Mcgee [facility] September 06, 2023 8:14am Note Date/Time September 06, 2023 8:13 am [facility] [address] [place] [address] Gastroenterology H&P Signed Patient: José Luis Faulkner MR #: [id number] : 1950 Acct:[id number] Age/Sex: 72 / M Adm Date: 4 Loc: Room: Type: [facility] Attending Dr: Bill Mcgee MD Copies to: [...] signed by Bill Mcgee MD> 09/06/23 0814 [facility] Work Phone: History general Narrative - Reported* [...] SEE ABOVE SURGERY Hospitalization History HYPOTENSION 07/2016 [facility] Other History of Present illness Narrative* Venkatesh [...] year ago. 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 * - Tobacco use: Quit smoking cigarettes in 2000. * - Alcohol use: None * - Illicit drug use: None * Family History: * - No family history of Parkinson s disease or tremor. Possibly dementia in older sister. [id number] B 101 DO Work Phone: History of [...] year ago. 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 * - Tobacco use: Quit smoking cigarettes in 2000. * - Alcohol use: None * - Illicit drug use: None * Family History: * - No family history of Parkinson s disease or tremor. Possibly dementia in older sister. [id number] Alis 5 Work Phone: Hospital course Narrative No data available for this section [facility] No data available for this section [facility] Discharge instructions Additional Instructions Take Torsemide 20mg twice daily for 4 days then resume home dose and repeat labs [facility] Work Phone: Hospital Discharge instructions Additional Instructions [...] appointment and to remove the catheter. [ ][facility] Work Phone: Hospital Discharge instructions Additional Instructions [...] to schedule a follow up appointment.] [ ][facility] Work Phone: Progress note No data available for this section [facility] Family History Unknown Family Member Name Dates [...] have your Pulmonary Functions Test done at [facility]. The specific time and date of your testing is indicated on the form. It is also necessary for you to have a chest x-ray as well as lab work. These tests are needed if you are on one of the following medications: Cordarone, Pacerone, or Amiodarone. * (If your testing is being performed at [facility] - please enter through the [facility] entrance - NOT the Emergency Room entrance. ) * If you are unable to keep the appointment that has been made for you, please contact our office at [phone] and press option #3 so that we may assist you in rescheduling. * Thank you for your compliance with this testing, * The Staff * [facility] * Note: You MAY NOT USE inhalers for 4 hours PRIOR to your Pulmonary Function Test. * [facility] 06/16/2021 @ 10:30 AM * Enclosed you will find an order form to have your Pulmonary Functions Test done at [facility]. The specific time and date of your testing is indicated on the form. It is also necessary for you to have a chest x-ray as well as lab work. These tests are needed if you are on one of the following medications: Cordarone, Pacerone, or Amiodarone. * (If your testing is being performed at [facility] - please enter through the [facility] entrance - NOT the Emergency Room entrance. ) * If you are unable to keep the appointment that has been made for you, please contact our office at [phone] and press option #3 so that we may assist you in rescheduling. * Thank you for your compliance with this testing, * The Staff * [facility] * Note: You MAY NOT USE inhalers for 4 hours PRIOR to your Pulmonary Function Test * [facility] 07/21/2021 @ 12:45 pm CATH RESULTS.* CATH [...] JOSÉ LUIS GIL is being seen for [facility]. * Is in the office for follow-up [...] have your Pulmonary Functions Test done at [facility]. The specific time and date of your testing is indicated on the form. It is also necessary for you to have a chest x-ray as well as lab work. These tests are needed if you are on one of the following medications: Cordarone, Pacerone, or Amiodarone. * (If your testing is being performed at [facility] - please enter through the [facility] entrance - NOT the Emergency Room entrance. ) * If you are unable to keep the appointment that has been made for you, please contact our office at [phone] and press option #3 so that we may assist you in rescheduling. * Thank you for your compliance with this testing, * The Staff * [facility] * Note: You MAY NOT USE inhalers for 4 hours PRIOR to your Pulmonary Function Test * [facility] 10/20/2021 @ 10:30 AM * JOSÉ LUIS GIL is being seen for a 4 month follow-up of. * Patient is in the office for follow-up for the problems noted below. I saw him in the hospital lastweeke when he was there for increasing lower [...] have your Pulmonary Functions Test done at [facility]. The specific time and date of your testing is indicated on the form. It is also necessary for you to have a chest x-ray as well as lab work. These tests are needed if you are on one of the following medications: Cordarone, Pacerone, or Amiodarone. * (If your testing is being performed at [facility] - please enter through the [facility] entrance - NOT the Emergency Room entrance. ) * If you are unable to keep the appointment that has been made for you, please contact our office at [phone] and press option #3 so that we may assist you in rescheduling. * Thank you for your compliance with this testing, * The Staff * [facility] * Note: You MAY NOT USE inhalers for 4 hours PRIOR to your Pulmonary Function Test * [facility] 06/08/2022 @ 12:45 pm * JOSÉ LUIS [...] Documents on File Type Date Recorded Patient [employer] Consultant Expl anation Advance Directives and Living Will [...] f/u Unknown [facility] CULTURE RESULTS was in [facility] for Observation Reason for Visit Chronic antibiotic s uppression Osteomyelitis of ankle and foot Osteomyelitis of ankle and foot Reason for Referral Specialty Diagnoses / Procedures Referred By Contac t Referred To Contact Diagnoses Paroxysmal atrial fibrillation ([facility]) Procedures ECG 12 Lead Felipa Milligan MD [address] [address], [address] [address] Referral ID Status Reason Start Date Expiration Date V isits Requested Visits Authorized [id number] Pending Review 04/04/2023 04/03/2024 1 1 Specialty Diagnoses / Procedures Referred By Contac t Referred To Contact Cardiology Diagnoses 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 S/P PTCA (percutaneous transluminal coronary angioplasty) Ventricular tachycardia (paroxysmal) ([facility]) Procedures Follow Up In Cardiology Felipa Milligan MD [facility] [facility] [address], [address] [address] Felipa Milligan MD [facility] [facility], [place] [address] [place] [address] Referral ID Status Reason Start Date Expiration Date V isits Requested Visits Authorized [id number] Authorized 04/04/2023 04/03/2024 1 1 Specialty Diagnoses / Procedures Referred By Contac t Referred To Contact Radiology Diagnoses Memory loss Procedures CT head wo IV contrast Keisha Brambila, FOUNDRY SUPERINTENDANT - [facility] [address] [address] Referral ID Status Reason Start Date Expiration Date V isits Requested Visits Authorized [id number] Pending Review 02/20/2023 08/19/2023 1 1 Additional Source Comments Reason for Visit (unrecogniz ed section and content) Reason Comments Medication Management Reason Onset Date Comments Appointment 02/15/2023 Reason Comments Memory Loss Specialty Diagnoses / Procedures Referred By Contac t Referred To Contact Geriatric Medicine Diagnoses dementia (per zackary) Procedures geriatric assessment [address] [address] [place] [address] [address] Referral ID Status Reason Start Date Expiration Date Visits Re quested Visits Authorized [id number] Closed 02/16/2023 08/15/2023 1 1 Reason Comments Memory Loss Reason Comments Parkinson's Disease Reason Comments Hospital Follow-up Specialty Diagnoses / Procedures Referred By Contac t Referred To Contact Cardiology Diagnoses 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 Procedures Follow Up In Cardiology Jeremías Mims MD [address] [place] [address] 2, [address] [address] Referral ID Status Reason Start Date Expiration Date V isits Requested Visits Authorized [id number] Authorized 03/14/2023 09/10/2023 1 1 Reason Comments Follow-up 6m Specialty Diagnoses / Procedures Referred By Contac t Referred To Contact Cardiology Diagnoses 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 S/P PTCA (percutaneous transluminal coronary angioplasty) Ventricular tachycardia (paroxysmal) (Multi) Procedures Follow Up In Cardiology Felipa Milligan MD [address] [place] [address] 2, [address] [address] Felipa Milligan MD [address] [place] [address] 2, [address] [address] Referral ID Status Reason Start Date Expiration Date V isits Requested Visits Authorized [id number] Authorized 04/04/2023 04/03/2024 1 1 Reason Onset Date Comments Hospital Follow-up 03/04/2024 Reason Comments Hospital Follow-up Reason Comments Stroke Parkinson's Disease Memory Loss Sleep Apnea Care Teams (unrecognized sec tion and content) [...] Provider Active Sta rt: August 11, 2023 Thread Cutter Relationship Specialty Start Date End Date Mona Baker MD [address] [place] [address] PCP - General Family Medicine 06/21/21 Thread Cutter Relationship Specialty Start Date End Date Mona Baker MD [address] [facility] [place] [address] PCP - General Family Medicine 06/21/21 Team [...] Active Andi Ware MD Attending Provider Active Thread Cutter Relationship Specialty Start Date End Date Mona Baker [address] [place] [address] PCP - General Family Medicine 02/16/23 Thread Cutter Relationship Specialty Start Date End Date Mona Baker [address] [place] [address] PCP - General Family Medicine 02/16/23 Thread Cutter Relationship Specialty Start Date End Date Mona Baker [address] [place] [address] PCP - General Family Medicine 02/16/23 Thread Cutter Relationship Specialty Start Date End Date Mona Baker MD [address] [place] [address] PCP - General 06/04/14 Thread Cutter Relationship Specialty Start Date End Date Mona Baker MD [address] [place] [address] PCP - General 06/04/14 Elly Hill, FOUNDRY SUPERINTENDANT-WIRELESS WATCHER [address] [place] [address], [address], [place] [address] [place] [address] Nurse Practitioner Neurology 03/30/23 Team Status: Inactive Member Role Status Dates Mona Baker MD Primary Care Provider Active [place] [...] Provider Active Sta rt: July 26, 2023 Thread Cutter Relationship Specialty Start Date End Date Mona Baker MD [address] [place] [address] PCP - General 06/04/14 Elly Hill, BALTAZAR-WIRELESS WATCHER [address] [facility], [address], [place] [address] [place] [address] Nurse Practitioner Neurology 03/30/23 Thread Cutter Relationship Specialty Start Date End Date Mona Baker MD [address] [place] [address] PCP - General Family Medicine 06/21/21 Team Status: Inactive Member Role Status Yanna Baker MD Primary Care Provider Active Start: January 03, 2024 End: January 03, 2024 Janusz Ruiz MD Attending Provider Active Sta rt: January 03, 2024 End: January 03, 2024 Thread Cutter Relationship Specialty Start Date End Date Mona Baker MD [address] [place] [address] PCP - General Family Medicine 06/21/21 Thread Cutter Relationship Specialty Start Date End Date Mona Baker MD [address] [place] [address] PCP - General Family Medicine 07/25/23 Thread Cutter Relationship Specialty Start Date End Date Mona Baker MD [address] [place] [address] PCP - General Family Medicine 07/25/23 Thread Cutter Relationship Specialty Start Date End Date Mona Baker MD [address] [place] [address] PCP - General Family Medicine 07/25/23 Thread Cutter Relationship Specialty Start Date End Date Mona Baker MD [address] [place] [address] PCP - General Family Medicine 07/25/23 (unrecognized [...] section and content) DATE CREATED AUTHOR 08/13/2021 [facility] dical Specialist DATE CREATED AUTHOR AUTHOR'S ORGANIZ ATION 08/22/2022 [facility] DATE CREATED AUTHOR AUTHOR'S ORGANIZ ATION 09/03/2022 [facility] DATE CREATED AUTHOR AUTHOR'S ORGANIZ ATION 10/05/2022 [facility] DATE CREATED AUTHOR AUTHOR'S ORGANIZ ATION 11/21/2022 [employer] DATE CREATED AUTHOR AUTHOR'S ORGANIZ ATION 03/08/2023 [facility] DATE CREATED AUTHOR AUTHOR'S ORGANIZ ATION 09/26/2023 [facility] DATE CREATED AUTHOR AUTHOR'S ORGANIZ ATION 11/09/2023 [facility] DATE CREATED AUTHOR AUTHOR'S ORGANIZ ATION 11/25/2023 [facility] DATE CREATED AUTHOR AUTHOR'S ORGANIZ ATION 11/27/2023 [facility] DATE CREATED AUTHOR AUTHOR'S ORGANIZ ATION 12/26/2023 [facility] DATE CREATED AUTHOR AUTHOR'S ORGANIZ ATION 01/05/2024 [facility] DATE CREATED AUTHOR AUTHOR'S ORGANIZ ATION 01/19/2024 [facility] DATE CREATED AUTHOR AUTHOR'S ORGANIZ ATION 01/30/2024 [facility] DATE CREATED AUTHOR AUTHOR'S ORGANIZ ATION 01/31/2024 [facility] DATE CREATED AUTHOR AUTHOR'S ORGANIZ ATION 02/10/2024 [facility] DATE CREATED AUTHOR AUTHOR'S ORGANIZ ATION 02/21/2024 [facility] DATE CREATED AUTHOR AUTHOR'S ORGANIZ ATION 02/25/2024 [facility] DATE CREATED AUTHOR AUTHOR'S ORGANIZ ATION 03/02/2024 [facility] DATE CREATED AUTHOR AUTHOR'S ORGANIZ ATION 03/03/2024 [facility] DATE CREATED AUTHOR AUTHOR'S ORGANIZ ATION 03/04/2024 [facility] DATE CREATED AUTHOR AUTHOR'S ORGANIZ ATION 03/05/2024 [facility] DATE CREATED AUTHOR AUTHOR'S ORGANIZ ATION 03/09/2024 [facility] DATE CREATED AUTHOR AUTHOR'S ORGANIZ ATION 03/10/2024 [facility] DATE CREATED AUTHOR AUTHOR'S ORGANIZ ATION 03/11/2024 [facility] DATE CREATED AUTHOR AUTHOR'S ORGANIZ ATION 03/14/2024 [facility] DATE CREATED AUTHOR AUTHOR'S ORGANIZ ATION 03/16/2024 [facility] Goals (unrecognized section and content) Goals [...] BE BASED ON THE PRIMARY CLINICAL RECORDS. [facility] [employer] [facility]. provides no warranty or guarantee of the accuracy or completeness of information in this document.
== END 2024-03-21 11:55 | disposition home or self-care (01) ==
LOC: WC 11:54
PROVIDERS: PCP Student in an Organized Health Care Education/Training Program; Visit Provider Podiatrist Foot & Ankle Surgery
DX: E11.621 Type 2 diabetes mellitus with foot ulcer (principal); L97.422 Non-pressure chronic ulcer of left heel and midfoot with fat layer exposed; L97.512 Non-pressure chronic ulcer of other part of right foot with fat layer exposed
CPT/HCPCS: 29445; A6213

== ENCOUNTER 2024-03-27 14:03 | Outpatient (OUT) | payer MEDICARE, SELFPAY | END 2024-03-27 14:04 | disposition home or self-care (01) | LOC: WC 14:04 | PROVIDERS: PCP Student in an Organized Health Care Education/Training Program; Visit Provider Physician Assistant | DX: E11.621 Type 2 diabetes mellitus with foot ulcer (principal); L97.422 Non-pressure chronic ulcer of left heel and midfoot with fat layer exposed | CPT/HCPCS: 29445 ==

== ENCOUNTER 2024-03-31 10:28 | Outpatient (OUT) | payer MEDICARE, SELFPAY | END 2024-03-31 10:29 | disposition home or self-care (01) | PROVIDERS: PCP Student in an Organized Health Care Education/Training Program; Visit Provider Podiatrist Foot & Ankle Surgery | DX: Z01.818 Encounter for other preprocedural examination (principal); E11.621 Type 2 diabetes mellitus with foot ulcer; L97.529 Non-pressure chronic ulcer of other part of left foot with unspecified severity; E11.610 Type 2 diabetes mellitus with diabetic neuropathic arthropathy ==

== ENCOUNTER 2024-04-02 13:54 | Outpatient (OUT) | payer MEDICARE, SELFPAY | END 2024-04-02 13:55 | disposition home or self-care (01) | LOC: WC 13:54 | PROVIDERS: PCP Student in an Organized Health Care Education/Training Program; Visit Provider Physician Assistant | DX: E11.621 Type 2 diabetes mellitus with foot ulcer (principal); L97.422 Non-pressure chronic ulcer of left heel and midfoot with fat layer exposed; L97.512 Non-pressure chronic ulcer of other part of right foot with fat layer exposed | CPT/HCPCS: 29445 ==

== ENCOUNTER 2024-04-07 06:50 | Day surgery (SDC) | payer MEDICARE, SELFPAY ==
--- OUTSIDE RECORDS SUMMARY | 2024-04-07 06:57 | XMS_ITS | CCD ---
Author Organization [facility] Care Team Providers Care President & [employer] Name Role Phone Unavailable Unavailable Mona Baker Unavailable Mona Baker MD Primary Care Provider Mona Baker Primary Care Physician [phone] Luna Frank Unavailable Unavailable January Bravo Unavailable Unavailable Giselle Kelly Unavailable Unavailable Mona Baker MD Primary Care Provider Janusz Ruiz Unavailable MD Mona Baker Primary Care Provider Unavaila MD Janusz Contreras Emergency Provider [phone] DO Janusz Davidson Admit Provider [phone] DO Janusz Davidson Attending Provider MD Bill Mcgee Other Provider MD Andi Ware Attending Provider DO Janusz Davidson Other Provider Bill Mcgee Unavailable Dr. Mona Baker Primary Care Unavail able Dr. Jackie Mcginnis Attending Unavailable SnehalDr. Francisco wade Referring UnavailDr. Mona Pena Primary Care Unavail able Dr. Jackie Mcginnis Attending Unavailable JOHN PAUL PRINCE Admitting Unavailable JOHN PAUL PRINCE Attending Unavailable JANET BAKER Primary Care Unavailable JOHN PAUL PRINCE Admitting Unavailable JOHN PAUL PRINCE Attending Unavailable JANET BAKER Primary Care Unavailable ENOC BACA Consulting Unavailable JOHN PAUL PRINCE Consulting Unavailable HIGHLANDER, JOHN PAUL James Admitting Unavailable HIGHLANDER, JOHN PAUL James Attending Unavailable OLIVIA, [facility] Care Unavailable HIGHLANDER, JOHN PAUL James Admitting Unavailable OLIVIA, [place] Primary Care Unavailable HIGHLANDER, JOHN PAUL James Attending Unavailable HIGHLANDER, JOHN PAUL James Admitting Unavailable HIGHLANDER, JOHN PAUL James Attending Unavailable OLIVIA, [facility] Care Unavailable HIGHLANDER, JOHN PAUL James Admitting Unavailable HIGHLANDER, JOHN PAUL James Attending Unavailable OLIVIA, [facility] Care Unavailable ZIEBERDR TERRY Consulting Unavailable HIGHLANDER, JOHN PAUL James Consulting Unavailable HIGHLANDER, JOHN PAUL James Admitting Unavailable OLIVIA, [facility] Care Unavailable HIGHLANDER, JOHN PAUL James Attending Unavailable HIGHLANDER, JOHN PAUL James Admitting Unavailable OLIVIA, [facility] Care Unavailable HIGHLANDER, JOHN PAUL James Attending Unavailable HIGHLANDER, JOHN PAUL James Admitting Unavailable HIGHLANDER, JOHN PAUL James Attending Unavailable OLIVIA, [facility] Care Unavailable HIGHLANDER, JOHN PAUL James Admitting Unavailable HIGHLANDER, JOHN PAUL James Attending Unavailable OLIVIA, [facility] Care Unavailable HIGHLANDER, JOHN PAUL James Admitting Unavailable HIGHLANDER, JOHN PAUL James Attending Unavailable OLIVIA, [facility] Care Unavailable HIGHLANDER, JOHN PAUL James Admitting Unavailable HIGHLANDER, JOHN PAUL James Attending Unavailable OLIVIA, [facility] Unavailable ZIEBER, DR TERRY Caputo Consulting Unavailable HIGHLANDER, JOHN PAUL James Consulting Un[facility] [phone] Olivia, Dr. Mona Jules Primary Care Unavail [...] Olivia Mona BROUSSARD Primary Care Provider Sergio LEDESMA-Elly MORA Unavailable MD Olivia [place] Primary Care Provider Unavaila MD Cayden Quinn Emergency Provider [phone] MD Olivia Mona Primary Care Provider MD Cayden Petty Emergency Provider [phone] MD Bill Mcgee Attending Provider [phone] Mona Baker MD Jane Primary Care Provider [phone] Olivia BROUSSARD, [place] Primary Care Provider MD Olivia [place] Primary Care Provider HOA Prince Attending Provider Olivia [facility] Care Unavailable Bill Mcgee Admitting Unavailable Bill Mcgee Attending Unavailable [facility] Care Unavailable Cayden Petty Admitting Unavailable Cayden Petty Attending Unavailable John Paul Prince Admitting Unavailable John Paul Prince Attending Unavailable [facility] Primary Care Unavailable Armani Yarbrough Attending Unavailable Diggs, Basem G. Referring Unavailable Diggs, Basem G. Attending Unavailable Diggs, Basem GOri Admitting Unavailable MD Olivia Mona Primary Care Provider [phone] Diggs, Basem G. Admitting Unavailable Diggs, Basem G. Attending Unavailable Diggs, Basem G. Referring Unavailable Milligan, Leo Referring Unavailable Milligan, Leo Attending Unavailable Milligan, Leo Admitting Unavailable NONE, XXXX Referring Unavailable Diggs, Basem G. Admitting Unavailable Diggs, Basem G. Attending Unavailable Diggs, Basem G. Attending Unavailable NONE, XXXX Referring Unavailable GEHLOT, UPENDER Attending Unavailable [facility] Primary Care Unavailable OLIVIA, MONA Primary Care Unavailable GEHLOT, UPENDER Attending Unavailable GEHLOT, UPENDER Attending Unavailable [facility] Primary Care Unavailable Annemarie Tony Attending Unavailable MD Paul Samaniego Admitting Unavaila ble MD Paul Samaniego Attending Unavaila ble [facility], XXXX Consulting Unavailable Anderle, Boaz J. Attending Unavailable Mona Baker MD Primary Care Provider MD Paul Samaniego Admitting Unavaila ble Boaz Teresa. Attending Unavailable [facility], XXXX Consulting Unavailable Milligan, Leo Consulting Unavailable MD Felipa Milligan Consulting Unavailable Milligan, Leo Consulting Unavailable Milligan, Leo Consulting Unavailable Milligan, Leo Consulting Unavailable Milligan, Leo Consulting Unavailable Milligan, Leo Consulting Unavailable Milligan, Leo Consulting Unavailable Milligan, Leo Consulting Unavailable Milligan, Leo Consulting Unavailable OLIVIA, MONA Ward Attending Unavailable RUSHER, PRINCESS Jamil Attending Unavailable OLIVIA, MONA Ward Attending Unavailable RUSHER, PRINCESS Jamil Attending Unavailable OLIVIAMONA Attending Unavailable OLIVIAMONA Attending Unavailable RUSHERPRINCESS Attending Unavailable OLIVIAMONA Referring Unavailable OLIVIA, MONA Ward Attending Unavailable RUSHERPRINCESS Attending Unavailable OLIVIAMONA Attending Unavailable MICAELA TIWARI Attending Unavailable OLIVIAMONA Attending Unavailable CHAYO FERNANDEZ Attending Unavailable Milligan, Leo Admitting Unavailable Milligan, Leo Attending Unavailable OliviaMona Admitting Unavailable OliviaMona Attending Unavailable Andi WARE R Referring Unavailable WAREAndi Attending Unavailable Armnai Yarbrough Admitting Unavailable Adamowicz, Armani Attending Unavailable Blank, Janusz Jamil Admitting Unavailable Blank, Janusz Jamil Attending Unavailable Blank, Janusz S Admitting Unavailable Blank, Janusz Jamil Attending Unavailable Blank, Janusz Jamil Admitting Unavailable Blank, Janusz Jamil Attending Unavailable Olaf SINCLAIR Attending Unavailable Rosi Mendez Admitting Unavailable Linnea, Armani Attending Unavailable Linnea, Armani Attending Unavailable Linnea, Armani Attending Unavailable Nicolás Diggs Attending Unavailable NONE, XXXX Referring Unavailable Andi WARE R Referring Unavailable WARE, Andi R Admitting Unavailable WAREAndi R Attending Unavailable Justi, ACNP January Admitting Unavailable Justi, ACNP January Attending Unavailable Justi, ACNP January Referring Unavailable Milligan, Leo Admitting Unavailable Milligan, Leo Attending Unavailable Milligan, Leo Referring Unavailable Eyad Mims Admitting Unavailable Eyad Mims Attending Unavailable Eyad Mims Referring Unavailable Felipa Milligan Admitting Unavailable Felipa Milligan Attending Unavailable Felipa Milligan Attending Unavailable Danna, Felipa Admitting Unavailable Nicolás Diggs Attending Unavailable NONE, XXXX Referring Unavailable Andi WARE R Attending Unavailable Andi WARE Admitting Unavailable Andi WARE Referring Unavailable Nicolás Diggs Referring Unavailable Nicolás Diggs Attending Unavailable Elly Hayes Unavailable [phone] FELIPA MILLIGAN Referring Unavailable OLIVIA, MONA JANE Primary Care Unavailable ABEBA PETTY Attending Unavailable MILLIGANFELIPA M Attending Unavailable MILLIGANFELIPA M Referring Unavailable OLIVIA, MONA JANE Primary Care Unavailable FELIPA MILLIGAN M Attending Unavailable MILLIGANFELIPA M Referring Unavailable OLIVIA, MONA JANE Primary Care Unavailable Cayden Izaguirre Attending Unavailable Allergies Allergy Classification Reported Allergen(s) Allergy Type Date of Onset Reaction(s) Facility (8 sources) Piperacillin / tazobactam; Translations: [PIPERACILLIN-TA ZOBACTAM] Drug Allergy 1 GI Intolerance [facility] (1 source) Piperacillin / tazobactam Drug Allergy 1 [facility] (2 sources) Piperacillin / tazobactam Drug Allergy 1 [facility] (10 sources) Piperacillin Sod-Tazobactam So Drug Intolerance 1 [facility] Healthcare Medications Current Medications Medication Drug Class(es) [...] for mild pain (1 - 3). Active [id number] 200 actuat albuterol 0.09 mg/actuat metered dose [...] mL, Inhalation, QID, 1 EA, Refill(s) 0, [facility], 172.7, cm, 03/09/23 15:05:00 [...] May 10, 2021 12:00am Start: 05-05-2021 End: 03-20-2025 take 1 tablet by mouth in the [...] 15-Mar-2021 Active take 3 tablets by mo [facility] once daily amiodarone (Pacerone) 100 MG tablet [...] Start: 11-03-2020 take 1 capsule by mo [facility] twice daily amoxicillin 500 mg Cap 500 mg = 1 cap(s), Oral, BID, Dr. Ruiz, Refills(s) 0 Start Date: 02/22/22 Status: Ordered Start: 11-03-2020 Amoxicillin 50 0 MG Oral Capsule Quantity: 180 Refills: 0 Ordered: 25-Feb-2021 DO Start : 03-Nov-2020 Active take [address] [facility] once daily amoxicillin (Amoxil) 500 MG tablet Take 500 mg by mouth daily. 0 Active Anoro Ellipta 62.5 mcg-25 mc g inhalation powder (20 sources) Start: 04-09-2023 End: 10-06-2023 Anoro Ellipta 62.5 mcg-25 mc g inhalation powder 1 inh, Inhalation, Daily for 30 day(s), 30 blister(s), Refill(s) 5, [facility], 177, cm, 04/09/23 9:40:00 EST, Height/Length Dosing, 99.6, kg, 04/09/23 9:40:00 EST, Weight Dosing Start Date: 04/09/23 Stop Date: 10/06/23 Status: Ordered Start: 03-31-2022 End: 09-27-2022 Anoro Ellipta 62.5 mcg-25 mc g inhalation powder 1 inh, Inhalation, Daily for 30 day(s), 1 packet(s), Refill(s) 5, [facility], 178, cm, 03/31/22 9:44:00 EDT, Height/Length Dosing, 104.5, kg, 03/31/22 9:44:00 EDT, Weight Dosing Start Date: 03/31/22 Stop Date: 09/27/22 Status: Ordered Start: 08-03-2021 Anoro Ellipta 62.5 mcg-25 mcg inhalation powder 1 inh, Inhalation, Daily, 30 blister(s), Refill(s) 5, [facility], 178, cm, 08/03/21 11:33:00 EST, Height/Length Dosing, 102.7, kg, 08/03/21 11:33:00 EST, Weight Dosing Start Date: 08/03/21 Status: Ordered Start: 08-03-2021 End: 01-30-2022 Anoro Ellipta 62.5 mcg-25 mc g inhalation powder 1 inh, Inhalation, Daily for 30 day(s), 30 blister(s), Refill(s) 5, [facility] 1986, 178, cm, 08/03/21 11:33:00 [...] Active Start: 02-11-2022 take 2 tablets by [facility] once daily aripiprazole 5 mg Tab [...] Start: 01-28-2018 take 1 tablet by mouth once daily at bedtime atorvastatin (Lipitor) 80 mg tablet Indications: Mixed hyperlipidemia Take 1 tablet (80 mg) by mouth once daily at bedtime. 90 tablet 3 03/13/2023 Active carbidopa 25 mg / levodopa 100 mg [...] DO Start : 16-Feb-2021 Active Start: 02-05-2018 End: 03-04-2025 take 1 tablet by mouth twice daily carvedilol (Coreg) 25 mg tablet Indications: Ischemic cardiomyopathy , Hypertension, essential, benign Take 1 tablet (25 mg) by mouth 2 times a day. 180 tablet 3 03/04/2024 03/04/2025 Active carvedilol (Core g) 25 MG tablet every [...] 1 capsule (25 mcg) by mouth. Active Cholecalciferol (VITAMIN D3 GUMMIES ADULT PO) Take by mouth. Active Vitamin D 1000 U [...] procedure, # 2 tab(s), Refills(s) 0, Pharmacy: [facility], 177, cm, 05/02/22 10:41:00 EST, Height/Length Dosing, 104.5, kg, 03/31/22 9:44:00 E... Start Date: 05/03/22 Status: Ordered Co-Q10 100 mg oral capsule (20 sources) Start: 12-07-2019 take 1 capsule by mouth once daily Co-Q10 100 mg oral capsule 100 mg = 1 cap(s), Oral, Daily, Refills(s) 0 Start Date: 12/07/19 Status: Ordered Coenzyme J03-Hdkiqqn E (CoQ10 ST-100) 100-100 MG-UNIT capsule (2 sources) Coenzyme S19-Augrcuz E (CoQ10 ST-100) 100-100 MG-UNIT capsule Take 100 mg by mouth daily. 0 Active Continuous Blood Gluc Sensor (FreeStyle Sunny 2 Sensor) [facility] (10 sources) Start: 06-05-2023 Continuous Blood Gluc Sensor (FreeStyle Sunny 2 Sensor) [facility] Indications: Type 2 diabetes mellitus without complication, without long-term current use of insulin ([facility]) 1 each every 14 (fourteen) days 6 each 3 06/05/2023 Active CoQ10 100 MG (6 sources) CoQ10 100 MG as directed Orally Once a day Active dapagliflozin 5 mg oral tablet (1 source) Sodium-Glucose Cotransporter 2 Inhibitor take 1 tablet by mouth every twenty-four hours dapagliflozin propanediol (Farxiga) 5 mg Take 1 tablet (5 mg) by mouth once every 24 hours. Active enalapril maleate 10 mg oral tablet (20 sources) Angiotensin Converting Enzyme Inhibitor Start: 08-16-2021 take 1 tablet by mouth once daily Enalapril Maleate 10 MG Oral Tablet Take 1 tablet daily Quantity: 180 Refills: 3 Ordered: 16-Aug-2021 Felipa Milligan MD Start : 16-Aug-2021 Active Start: 02-05-2018 End: 03-04-2025 take 1 tablet by mouth twice daily enalapril (Vasotec) 10 mg tablet Indications: Hypertension, essential, benign Take 1 tablet (10 mg) by mouth 2 times a day. 180 tablet 3 03/04/2024 03/04/2025 Active enalapril (Vasot ec) 10 MG tablet every 12 (twelve) hours. Active ferrous sulfate 325 mg oral tablet (20 sources) Start: 04-08-2021 take 1 tablet by mouth once daily ferrous sulfate 325 mg Tab 325 mg = 1 tab(s), Oral, Daily, # 90 tab(s), Refills(s) 0, Pharmacy: [facility], 176, cm, 04/07/21 11:30:00 EDT, Height/Length Dosing, 103, kg, 04/07/21 11:30:00 EDT, Weight Dosing Start Date: 04/08/21 Status: Ordered Start: 04-08-2021 take 1 tablet by lashawn th three times daily ferrous sulfate 325 mg Tab 325 mg = 1 tab(s), Oral, TID, # 90 tab(s), Refills(s) 0, Pharmacy: [facility], 176, cm, 04/07/21 11:30:00 EDT, Height/Length Dosing, 103, kg, 04/07/21 11:30:00 EDT, Weight Dosing Start Date: 04/08/21 Status: Ordered Fish Oils (5 sources) take 1 capsule by mouth once daily Fish Oil [place]-3 1000 MG 1 capsule Orally Once a [...] End: 06-24-2024 take 1 tablet by mouth twice daily glimepiride (Amaryl) 2 mg tablet Take 1 tablet (2 mg) by mouth 2 times a day. 11/22/2020 04/03/2024 Discontinued (Med List Cleanup) take 1 tablet by lashawn th once daily before mealtime glimepiride (Amaryl) 2 mg tablet Take 1 tablet (2 mg) by mouth once daily in the morning. Take before meals. Active take 1 tablet by mouth before me altime glimepiride (Amaryl) 1 MG tablet Take 1 mg by mouth in the morning. Take before meals. Active Immodium (6 sources) Start: 07-25-2022 Immodium Activ [...] complication, with long-term current use of insulin ([facility]) INJECT 10 UNITS SUBCUTANEOUSLY ONCE DAILY [...] IN THE EVENING 04/30/2021 Active Start: 10-19-2020 End: 04-03-2024 insulin NPH, Isophane, (Uriel SABINO N NPH U-100 Insulin) 100 unit/mL injection Inject under the skin. 10/19/2020 04/03/2024 Discontinued (Med List Cleanup) Start: 10-19-2020 insulin NPH, I sophane, (NovoLIN N NPH U-100 Insulin) 100 unit/mL injection Inject under the skin. 0 10/19/2020 Active Start: 02-05-2018 inject 10 [IU] by vered bcutaneous injection twice daily Insulin Nph Isoph [...] Start Date: 04/07/21 Status: Ordered insulin NPH-insu sabino regular 70/30 (NovoLIN 70/30 U-100 Insulin) 100 [...] complication, without long-term current use of insulin ([facility]) Inject 1 each under the skin in the morning and 1 each before bedtime. Use as instructed. 180 each 3 03/19/2023 03/18/2024 Active 24 hr isosorbide mononitrate 60 mg extended release oral tablet (20 sources) Nitrate Vasodilator Start: 03-04-2024 End: 03-04-2025 take 1 tablet by mouth once daily isosorbide mononitrate ER (Imdur) 60 mg 24 hr tablet Indications: Hypertension, essential, benign , Atherosclerosis of coronary artery bypass graft of [place] heart without angina pectoris Take 1 tablet (60 mg) by mouth once daily. 90 tablet 3 03/04/2024 03/04/2025 Active Start: 03-16-2021 isosorbide mon onitrate (IMDUR) 60 MG 24 hr tablet 03/16/2021 [...] time 30 tablet 09/25/2023 Active levothyroxine sodium 0.2 mg oral tablet (20 sources) l-Thyroxine Start: 03-21-2024 End: 03-21-2025 take 1 tablet by mouth once daily before mealtime levothyroxine (Synthroid, Levoxyl) 200 mcg tablet Indications: Hypothyroidism, adult Take 1 tablet (200 mcg) by mouth once daily in the morning. Take before meals. 90 tablet 3 03/21/2024 03/21/2025 Active Start: 08-29-2023 take 1 tablet by lashawn th once daily levothyroxine 100 mcg (0.1 mg) Tab 100 mcg = 1 tab(s), Oral, Daily, Refills(s) 0 Start Date: 08/29/23 Status: Ordered Start: 08-29-2023 take 1 tablet by lashawn th once daily levothyroxine 75 mcg (0.075 mg) Tab 75 mcg = 1 tab(s), Oral, Daily, Refills(s) 0 Start Date: 08/29/23 Status: Ordered Start: 03-20-2023 End: 03-20-2024 take 1 tablet by mouth before mealtime levothyroxine (Synthroid, Levoxyl) 175 MCG tablet Indications: Acquired hypothyroidism (CMS/HCC) Take 1 tablet (175 mcg) by mouth in the morning. Take before meals. 90 tablet 03/20/2024 Active Start: 05-12-2022 End: 09-06-2023 take 75 [...] day(s), # 30 tab(s), Refills(s) 0, Pharmacy: [facility], 177, cm, 12/06/21 20:43:00 [...] Daily, # 30 tab(s), Refills(s) 0, Pharmacy: [facility], 178, cm, 10/14/21 16:31:00 EDT, Height/Length Dosing, 105, kg, 10/14/21 16:31:00 EDT, Weight Dosing Start Date: 10/27/21 Status: Ordered Start: 10-27-2021 take 1 tablet by lashawn th once daily levothyroxine 100 mcg (0.1 mg) Tab 100 mcg = 1 tab(s), Oral, Daily, # 30 tab(s), Refills(s) 0, Pharmacy: [facility], 178, cm, 10/14/21 16:31:00 [...] Not-Taking loperamide hydrochloride 2 mg oral capsule (20 sources) Opioid Agonist End: 04-04-2023 take 1 [...] Active memantine hydrochloride 5 mg oral tablet (13 sources) R-cjbhjw-T-aspartate Receptor Antagonist Start: 11-21-2023 End: 11-20-2024 take [...] Start Date: 10/21/21 Status: Ordered Start: 10-19-2020 End: 04-03-2024 take 1 tablet by mouth twice daily at mealtime metFORMIN (Glucophage) 1000 MG tablet Indications: Type 2 diabetes mellitus with other specified complication, with long-term current use of insulin (CMS/HCC) TAKE 1 TABLET BY MOUTH TWICE DAILY WITH MEALS 180 tablet 02/19/2024 Active Start: 02-05-2018 End: 02-24-2021 take 500 mg by mouth twice daily Metformin Discontinue d 500 MG PO Twice daily February 05, 2018 12:00am February 24, 2021 11:03am Start: 01-28-2018 take 2 tablets by mo uth twice daily metformin 500 mg Tab 1,000 mg = 2 tab(s), Oral, BID, # 60 tab(s), Refills(s) 0, Blood glucose Start Date: 01/28/18 Status: Ordered take 1 tablet by lashawn th once daily at breakfast metFORMIN (Glucophage) 1,000 mg tablet Take 1 tablet (1,000 mg) by mouth once daily with breakfast. Active methylPREDNISolone 4 mg oral tablet (2 sources) Corticosteroid Start: 2021 End: 01-05-2022 Medrol 4 mg Tab = 1 packet(s), Oral, As Directed, as directed on package labeling, X 6 day(s), # 21 tab(s), Refills(s) 0, Pharmacy: [id number], 177, cm, 12/30/21 15:24:00 EDT, Height/Length Dosing, 100.5, kg, 12/30/21 15:24:00 EDT, Weight Dosing Start Date: 12/30/21 Stop Date: 01/05/22 Status: Ordered Multiple Vitamins-Minerals (MULTI-VITAMIN GUMMIES PO) (10 sources) Multiple Vitamins-Minerals (MULTI-VITAMIN GUMMIES PO) Take by mouth. Active Multiple Vitamins-Minerals (multivitamin with minerals) tablet (2 sources) take 1 tablet by mouth once daily Multiple Vitamins-Minerals (multivitamin with minerals) tablet Take 1 tablet by mouth daily. 0 Active Ykwkicye-Vkx-Oioiz-Vit K-Lycop (Men's 50 Plus Multivitamin) 400-20-370 mcg Tablet (11 sources) Start: 02-24-2021 take 50-400 tablets by mouth once daily in the morning Japfakdv-Agp-Rjhco -Vit K-Lycop (Men's 50 Plus Multivitamin) 400-20-370 mcg Tablet Active 2 TAB PO Every morning February 24, 2021 12:00am Start: 02-24-2021 take 50-400 tablets by mouth once daily in the morning Pazajsnv-Ipf-Qains-Vit K-Lycop (Men's 50 Plus Multivitamin) 400-20-370 mcg [...] take 1 tablet by mouth once daily pantoprazole (ProtoNix) 40 mg EC tablet Indications: Paroxysmal atrial fibrillation (Multi) , Ischemic cardiomyopathy , Atherosclerosis of coronary artery bypass graft of [place] heart without angina pectoris , High risk medication use Take 1 tablet (40 mg) by mouth once daily. 90 tablet 3 03/13/2023 Active Start: 04-17-2019 take 1 tablet by lashawn once daily Pantoprazole [address] Tab 40 mg = 1 tab(s), Oral, Daily, Refills(s) 0 Start Date: 10/21/21 Status: Ordered pediatric multivitamin (Claudette i Bear Multivitamin) tablet,chewable (4 sources) pediatric multiv itamin (Gummi Bear Multivitamin) tablet,chewable Chew 2 tablets once daily. Active pediatric multiv itamin (Gummi Bear Multivitamin) tablet,chewable Chew 2 tablets once daily. 0 Active Physical therapy (3 sources) Start: 03-04-2024 Physical thera py Physical therapy, [...] Start: 01-16-2022 take 1 capsule by mo [facility] twice daily Florastor 250 MG 1 capsule [...] Daily, # 30 tab(s), Refills(s) 0, Pharmacy: [facility], 172.7, cm, 03/09/23 15:05:00 EDT, Height/Length Dosing, 104.5, kg, 03/09/23 15:05:00 EDT, Weight Dosing Start Date: 03/13/23 Status: Ordered Start: 12-08-2021 End: 01-07-2022 Aldactone 25 mg Tab 12.5 mg = 0.5 tab(s), Oral, Daily, X 30 day(s), # 15 tab(s), Refills(s) 0, Pharmacy: [facility], 177, cm, 12/06/21 20:43:00 EDT, Height/Length Dosing, 107.2, kg, 12/06/21 20:43:00 EDT, Weight Dosing Start Date: 12/08/21 Stop Date: 01/07/22 Status: Ordered Start: 10-27-2021 take 1 tablet by lashawn twice daily spironolactone 25 mg Tab 25 mg = 1 tab(s), Oral, BID, # 60 tab(s), Refills(s) 0, Pharmacy: [facility], 178, cm, 10/14/21 16:31:00 EDT, Height/Length Dosing, 105, kg, 10/14/21 16:31:00 EDT, Weight Dosing Start Date: 10/27/21 Status: Ordered Start: 07-22-2021 take 1 tablet by lashawn th twice daily spironolactone 25 mg Tab 25 mg = 1 tab(s), Oral, BID, # 120 tab(s), Refills(s) 0, Pharmacy: [facility], 172, cm, 07/17/21 14:15:00 [...] Refills: 0 Ordered: 29-Jun-2021 DO Active torsemide 10 mg oral tablet (20 sources) Loop Diuretic Start: 03-20-2024 End: 03-20-2025 take 1 tablet by mouth once daily torsemide (Demadex) 10 mg tablet Indications: Ischemic cardiomyopathy , Localized edema Take 1 tablet (10 mg) by mouth once daily. 90 tablet 3 03/20/2024 03/20/2025 Active Start: 08-29-2023 torsemide 20 m g Tab See Instructions, 1 tab(s) Oral Daily and then addtional 1 tab oral daily as needed for Leg swelling or weight gain of 3 pounds, # 60 tab(s), Refills(s) 0, Pharmacy: [facility], 177, cm, 08/27/23 20:45:00 [...] film to inside of foreskin twice daily., [facility], 177, cm, 03/09/22 14:32:00 [...] 1:00am Start: 12-07-2019 take 1 capsule by [facility] once daily Co-Q10 100 mg oral capsule [...] device Inhale. 0 08/03/2021 04/04/2023 Discontinued (Other) End: 04-03-2024 take 1 puff(s) by inhalation once daily umeclidinium-vilanteroL (Anoro Ellipta) 62.5-25 mcg/actuation blister with device Inhale 1 puff once daily. 04/03/2024 Discontinued (Med List Cleanup) take 1 puff(s) by inhalation once daily [...] injections., # 10 mL, Refills(s) 1, Pharmacy: [facility], 177, cm, 04/12/23 9:03:00 EST, Height/Length Dosing, 101.6, kg, 04/12/23 9:03:00 EST, Weight Dosing Start Date: 04/12/23 Status: Ordered Start: 04-12-2023 inject 1000 ug by in tramuscular injection every month cyanocobalamin 1000 mcg/mL Inj 1,000 mcg = 1 mL, IntraMuscular, qMonth, syringes for B12 injections-3ml, 25 guage 1 inch quantity sufficient for injections., # 10 mL, Refills(s) 1, Pharmacy: [facility], 177, cm, 04/12/23 9:03:00 [...] BIDWM, # 60 tab(s), Refills(s) 0, Pharmacy: [facility] 1985, 176, cm, 12/08/19 9:27:00 [...] Ordered warfarin sodium 4 mg oral tablet (20 sources) Vitamin K Antagonist Start: 11-19-2023 Coumadin 4 mg Tab See Instructions, take 6mg on sunday, take 4m g all other days, # 96 tab(s), Refills(s) 1, Pharmacy: [facility] 1986, 172, cm, 10/31/23 14:00:00 [...] A WEEK Quantity: 12 Refills: 0 Ordered: 18-Apr-2021 DO Start : 25-Jun-2020 Active amLODIPine 5 [...] 24, 2021 12:00am July 25, 2022 10:51am End: 04-03-2024 take 1 capsule by mouth twice daily ascorbic acid, vitamin C, 500 mg capsule Take 1 capsule by mouth 2 times a day. 04/03/2024 Discontinued (Med List Cleanup) busPIRone hydrochloride 10 mg oral tablet (18 [...] meals Start: 05-10-2022 take 1 capsule by [facility] once daily cranberry oral capsule See Instructions, [...] procedure, # 2 tab(s), Refills(s) 0, Pharmacy: [facility], 172, cm, 12/05/23 10:16:00 EDT, Height/Length Dosing, 107.6, kg, 12/05/23 10:16:00 EDT, Weight Dosing Start Date: 12/11/23 Status: Ordered Start: 06-28-2023 take 1 capsule by [facility] once daily doxycycline hyclate 100 mg Cap 100 mg = 1 cap(s), Oral, Daily, Take 1 pill the day before the procedure and 1 pill after the procedure, # 2 cap(s), Refills(s) 0, Pharmacy: [facility], 177, cm, 04/12/23 9:03:00 EST, Height/Length Dosing, 101.6, kg, 04/12/23 9:03:00 EST, Weight Dosing Start Date: 06/28/23 Status: Ordered Start: 01-01-2023 take 1 capsule by [facility] once daily doxycycline hyclate 100 mg Cap 100 mg = 1 cap(s), Oral, Daily, Take 1 pill the day before the procedure and 1 pill after the procedure, # 2 cap(s), Refills(s) 0, Pharmacy: [facility], 177, cm, 10/31/22 10:31:00 EDT, Height/Length Dosing, 100, kg, 09/22/22 12:09:00 EDT, Weight Dosing Start Date: 01/01/23 Status: Ordered Start: 10-26-2022 take 1 capsule by [facility] once daily doxycycline hyclate 100 mg Cap 100 mg = 1 cap(s), Oral, Daily, Take 1 pill the day before the procedure and 1 pill after the procedure, # 2 cap(s), Refills(s) 0, Pharmacy: [facility] 1986, 177, cm, 09/22/22 12:09:00 [...] 11-Nov-2020 Active empagliflozin 10 mg oral tablet (16 sources) Sodium-Glucose Cotransporter 2 Inhibitor Start: 06-25-2023 End: 06-24-2024 take 1 tablet by mouth in the morning empagliflozin (Jardiance) 10 MG Indications: Type 2 diabetes mellitus with other specified complication, with long-term current use of insulin ([facility]) Take 1 tablet (10 mg) by mouth in the morning. 100 tablet 3 06/25/2023 03/06/2024 Discontinued (Therapy completed) Start: 09-22-2022 End: 04-03-2024 take 1 tablet by mouth once daily [...] every week Vitamin D (Ergocalciferol) 1.25 MG (29645 UT) Oral Capsule TAKE 1 CAPSULE BY [...] mg tablet Discontinued 20 MG PO Daily 7 June 17, 2023 1:00am September 06, 2023 7:27am Start: 10-27-2021 take 1 tablet by [facility] once daily furosemide 40 mg Tab 40 mg = 1 tab(s), Oral, Daily, # 60 tab(s), Refills(s) 0, Pharmacy: [facility], 178, martina, 10/14/21 16:31:00 EDT, Height/Length Dosing, 105, kg, 10/14/21 16:31:00 EDT, Weight Dosing Start Date: 10/27/21 Status: Ordered Start: 07-22-20[address] [facility] twice daily furosemide 40 mg Tab 40 mg = 1 tab(s), Oral, BID, # 60 tab(s), Refills(s) 0, Pharmacy: [facility] 1986, 178, martina, 10/14/21 16:31:00 EDT, Height/Length Dosing, 105, kg, 10/14/21 16:31:00 EDT, Weight Dosing Start Date: 10/27/21 Status: Ordered Start: 12-16-[address] [facility] once daily Furosemide 40 MG Oral Tablet [...] Subcut AC for 30 days October, Active End: 04-03-2024 insulin lispro (HumaLOG U-10 0 Insulin) 100 unit/mL injection Inject under the skin. 04/03/2024 Discontinued (Med List Cleanup) insulin lispro ( HumaLOG KWIKPEN) 100 UNIT/ML injection 1 (one) time each day at the same time. Active Insulin Lispro ( HUMALOG SC) Inject [...] 09/14/11 Status: Ordered take 1 capsule by [facility] every twenty-four hours Magnesium Oxide 400 MG [...] supplies, Supply Start Date: 03/13/23 Status: Ordered Independence 3 1200 MG (5 sources) take 1 capsule by mouth once daily Independence 3 1200 MG 1 capsule Orally Once [...] 7:28am Start: 10-21-2021 take 1 capsule by [facility] once daily potassium chloride 10 mEq Cap-ER 10 mEq = 1 cap(s), Oral, Daily, Refills(s) 0 Start Date: 10/21/21 Status: Ordered Start: 10-21-2021 take 1 capsule by [facility] once daily potassium chloride 10 mEq Cap-ER [...] day(s), # 30 cap(s), Refills(s) 0, Pharmacy: [facility], 177.8, cm, 02/08/22 20:58:00 [...] Completed Start: 10-06-2021 take 1 capsule by [facility] once daily Flomax 0.4 mg Cap 0.4 [...] Documented Da te Episodic/Chronic Acquired foot deformities (10 sources) Acquired hammer toe of left foot; Translations: [Other hammer toe(s) (acquired), left foot] Onset: 3 03-09-2023 Chronic Acquired foot deformities (10 sources) Acquired hammer toe of right foot; Translations: [Other hammer toe(s) (acquired), right foot] Onset: 3 03-09-2023 Chronic Acquired foot deformities (3 sources) Other acquired deformities of left foot; Translations: [Left foot drop] Onset: 2 03-12-2024 Episodic Acute and unspecified renal failure (2 sources) Acute renal failure syndrome; Translations: [Other acute kidney failure] Onset: 2 Episodic Acute cerebrovascular disease (10 sources) Cerebrovascular accident; Translations: [Cerebral infarction, unspecified] [...] disease; Translations: [Chronic kidney disease, stage 3b (Multi)] Onset: 3 Chronic obstructive pulmonary disease and [...] dementia, and amnestic and other cognitive disorders (14 sources) Dementia; Translations: [Mild dementia without behavioral [...] Translations: [Mixed hyperlipidemia] Onset: 2 06-21-2021 Chronic E Codes: Fall (1 source) Fall; Translations: [Unspecified fall, initial encounter] Onset: 4 Episodic Esophageal disorders (20 sources) Gastroesophageal reflux disease; [...] sources) Carotid artery stenosis 04-07-2021 Chronic Osteoarthritis (20 sources) Primary osteoarthritis, left ankle and foot; Translations: [Unspecified osteoarthritis, unspecified site] Onset: 2 03-09-2023 Chronic Other acquired deformities (20 sources) Contracture of ankle joint 02-17-2022 Chronic Other acquired deformities (1 source) Contracture, left ankle; Translations: [CONTRACTURE LEFT ANKLE] Onset: 3 Chronic Other acquired deformities (10 sources) Contracture of joint of left ankle; Translations: [Contracture, left ankle] Onset: 3 03-09-2023 Chronic Other aftercare (20 sources) Drug therapy finding; Translations: [Long-term (current) use of other medications] Episodic Other aftercare (6 sources) H/O: high risk medication; Translations: [Other longterm (current) drug therapy] Episodic Other aftercare (6 sources) Long-term current use of insulin; Translations: [assisted (current) use of insulin] Episodic Other aftercare (7 sources) assisted (current) use of antibiotics; Translations: [Long-term (current) use of antibiotics] Onset: 2 Resolved: 2 Episodic Other aftercare (20 sources) Long-term current use of anticoagulant; Translations: [assisted (current) use of anticoagulants] Onset: 2 Episodic Other aftercare (4 sources) Encounter for follow-up examination after completed treatment for conditions other than malignant neoplasm; Translations: [ENC F/U EX AFTR CMPL TX NOT MAL ARMANDO] Onset: 3 Episodic Other aftercare (1 source) Polypharmacy ; Translations: [Other longterm (current) drug therapy] 02-21-2023 Episodic Other aftercare (6 sources) Taking high risk medication; Translations: [Other rn long term care (current) drug therapy] Onset: 3 02-23-2023 Episodic Other aftercare (1 source) Long-term current use of drug therapy; Translations: [Other rn long term care (current) drug therapy] Onset: 4 Episodic Other aftercare (3 sources) Long-term current use of antibiotic; Translations: [assisted (current) use of antibiotics] 10-18-2023 Episodic Other [...] Other hereditary and degenerative nervous system conditions (20 sources) Restless legs; Translations: [Restless legs syndrome (RLS)] Onset: 3 02-23-2023 Chronic Other injuries and conditions due to external causes (1 source) Injury of head; Translations: [Unspecified injury of head, initial encounter] Onset: 4 Episodic Other liver diseases (6 sources) Alkaline phosphatase raised 04-08-2021 Episodic Other lower respiratory disease (2 sources) Dyspnea; Translations: [Dyspnea, unspecified] Onset: 2 Episodic Other lower respiratory disease (2 sources) Disorder of lung; Translations: [Other disorders of lung] Onset: 3 Episodic Other lower respiratory disease (9 sources) Restrictive lung disease 12-05-2023 Episodic Other lower respiratory disease (1 source) Solitary nodule of lung; Translations: [Solitary pulmonary nodule] Onset: 4 Episodic Other lower respiratory disease (5 sources) Nodule of lung 01-23-2024 Episodic Other [...] Onset: 3 Chronic Other non-traumatic joint disorders (10 sources) Arthropathy associated with a neurological disorder; Translations: [Charcot's joint, unspecified site] Onset: 3 03-09-2023 Chronic Other non-traumatic joint disorders (1 source) Pain in left ankle and joints of left foot; Translations: [PAIN IN LEFT ANKLE] Onset: 3 Episodic Other non-traumatic joint disorders (1 source) Stiffness of left foot, not elsewhere classified; Translations: [STIFFNESS LEFT FOOT NEC] Onset: 3 Episodic Other non-traumatic joint disorders (1 source) Pain in elbow; Translations: [Pain in unspecified elbow] Onset: 4 Episodic Other nutritional; endocrine; and metabolic disorders [...] Respiratory failure; insufficiency; arrest (adult) (2 sources) [id number] respiratory failure; Translations: [Acute and chronic respiratory failure with hypoxia] Onset: 4 Chronic Respiratory failure; insufficiency; arrest (adult) (2 sources) Acute respiratory failure; Translations: [Acute respiratory failure with hypoxia] 03-06-2024 Episodic Thyroid disorders (20 sources) Hypothyroidism; Translations: [Unspecified acquired hypothyroidism] Onset: 1 06-21-2021 Chronic Unclassified (15 sources) Parkinsonism; Translations: [Parkinsonism, unspecified Parkinsonism type] Onset: 3 03-26-2023 Chronic Unclassified (20 sources) Long-term current use of insulin 10-23-2021 Unclassified (20 sources) Patient encounter status 03-23-2022 Unclassified (1 source) Other ventricular tachycardia; Translations: [Other ventricular tachycardia] Onset: 3 Unclassified (1 source) Other ventricular tachycardia (Multi); Translations: [Other ventricular tachycardia (Multi)] Onset: 3 Past or Other Problems Problem Classification Problem Date Documented Date Episodic/Chronic Coronary atherosclerosis and other heart disease (20 sources) Patient post percutaneous transluminal coronary angioplasty; Translations: [Percutaneous transluminal coronary angioplasty status] Onset: 02-23-2023 02-23-2023 Episodic Deficiency and other anemia (1 source) Anemia, unspecified; Translations: [ANEMIA UNSPECIFIED] Onset: 03-29-2022 Episodic Fluid and electrolyte disorders (17 sources) Hyperkalemia; Translations: [Hyperpotassemia] Onset: 02-23-2023 02-23-2023 Episodic Hemorrhoids (20 sources) Hemorrhoids without complication Resolved: 10-21-2021 01-28-2018 Episodic Mood disorders (4 sources) Mood disorders Onset: 12-15-2021 07-16-2022 Other aftercare (4 sources) Other rn long term care (current) drug therapy; Translations: [Other rn long term care (current) drug therapy] Onset: 02-23-2023 Episodic Other circulatory disease (20 sources) History of atrial flutter; Translations: [Personal history of other diseases of circulatory system] Resolved: 05-05-2021 Episodic Other circulatory disease (20 sources) H/O: angina pectoris; Translations: [Personal history of other diseases of circulatory system] Resolved: 06-29-2021 Episodic Other connective tissue disease (20 sources) Transient neurological symptoms; Translations: [Other symptoms involving nervous and musculoskeletal systems] Onset: 02-23-2023 02-23-2023 Episodic Other diseases of veins and lymphatics (10 sources) Peripheral venous insufficiency; Translations: [Venous insufficiency (chronic) (peripheral)] Onset: 03-29-2023 03-29-2023 Episodic Other injuries and conditions due to external causes (20 sources) At risk for falls ; Translations: [History of fall] Onset: 02-23-2023 02-23-2023 Episodic Other lower respiratory disease (1 source) Shortness of breath; Translations: [Shortness of breath] Onset: 06-17-2023 Episodic Other nervous system disorders (14 sources) Involuntary movement; Translations: [Unspecified abnormal involuntary movements] Onset: 02-23-2023 02-23-2023 Episodic Other nervous system disorders (10 sources) Abnormal gait; Translations: [Unspecified abnormalities of gait and mobility] Onset: 03-09-2023 03-09-2023 Episodic Other non-traumatic joint disorders (1 source) [...] Translations: [CORNS AND CALLOSITIES] Onset: 03-24-2022 Episodic Screening and history of mental health and substance abuse codes (20 sources) H/O: manic depressive disorder; Translations: [Personal history of affective disorders] Onset: 02-23-2023 02-23-2023 Episodic Comment on above: QUIT 11/2001; Unclassified (3 sources) Onset: 04-04-2023 Resolved: 04-03-2024 04-04-2023 Unclassified (1 source) Other ventricular tachycardia; Translations: [Other ventricular tachycardia] Onset: 04-03-2024 Unclassified (1 source) Other ventricular tachycardia (Multi); Translations: [Other ventricular tachycardia (Multi)] Onset: 10-17-2023 Varicose veins of lower extremity (1 source) Varicose veins of unspecified lower extremity with other complications; Translations: [VARICOSE VEINS OF UNS LE OTH COMP] Onset: 05-13-2022 Episodic Viral infection (1 source) Disease caused by 2019-nCoV; Translations: [COVID-19] Onset: 2021 Results Test Name Value Interpretation Reference Range Facility ECG 12 Leadon 04-03-2024 ECG revealed AV sequ ential pacemaker rhythm, abnormal ECG [facility] Work Phone: ED Note-Physicianon 04-01-20 24 ED Note-Physician ED Note-Physician Basic Information Time Seen: Irvin Saldivar PA-C 03/31/2024 11:29 Chief Complaint pt fell this morning walking with rollator. landed on L elbow. c/o L elbow pain. on plavix amd coumadin. pt did hit head. denies LOC. alert and oriented x4. MSPS intact. History of Present Illness 73-year-old male comes into the ED for evaluation of injury status post fall. The patient states he was walking with his rollator when he got tripped up and fell onto his left side. He presents complaining of pain to the right elbow. With questioning he does admit to striking his head. He has mild pain to the left side of his head and neck. He does take Coumadin with a history of atrial fibrillation. There is no loss of conscious. He has no visual changes nausea or vomiting. No chest pain or shortness of breath. No abdominal pain. Review of Systems A 10 point review of systems is negative except as noted above. Medical and Surgical History: Reviewed and noted Social history: Lives at home Tobacco: Denies Physical Exam Vitals & Measurements T: 36.5 ???C(Oral) HR: 60(Monitored) RR: 18 BP: 161/73 SpO2: 96% HT: 177.8 cm WT: 100.3 kg BMI: 31.73 Nurses notes and vital signs reviewed and patient is not hypoxic. General: The patient appears well, resting comfortably. Skin: Warm, dry. Head: Atraumatic. Neck: No JVD. Nontender, full range of motion Eye: Normal conjunctiva. Ears, Nose, Mouth, and Throat: Moist mucous membranes. Cardiovascular: Strong distal pulses. Chest wall: Respiratory: Respirations are nonlabored. Back: Normal range of motion. No midline tenderness. Musculoskeletal: Normal ROM with no gross deformity. No pelvic tenderness. There is mild tenderness over the left elbow with full range of motion. Gastrointestinal: Soft and nontender. Urological: Neurological: Awake and alert. No focal deficits. Follows commands. Psychiatric: Cooperative. Medical Decision Making Patient presents with mechanical fall and left-sided elbow pain. With questioning he does admit to the striking his head and he does take anticoagulation therefore CT scans head and neck were obtained are negative per radiologist. Imaging of the elbow with no fracture or dislocation. With serial examinations he is resting comfortably, has no other complaints or concerns, and is discharged home PCP follow-up. Patient was encouraged to return to the ED if symptoms worsen or change. Assessment/Plan Elbow pain (M25.529: Pain in unspecified elbow) Fall (W19.XXXA: Unspecified fall, initial encounter) Head injury (S09.90XA: Unspecified injury of head, initial encounter) Orders: CT Head or Brain w/o Contrast CT Spine Cervical w/o Contrast XR Elbow 3+ Views Left Disposition Plan Patient Discharge Condition Disposition: Discharged home Condition: Improved and stable Counseled: Patient and/or family were counseled to workup, results, treatment plan and follow-up recommendations Discharge Prescription List Prescriptions No active prescription medications Follow-up With When Contact Information Mona Baker In 3 days 04/03/[address] [place] [address]- Business (1) Additional Instructions: Patient Education Musculoskeletal Pain Head Injury, Adult Attestation I performed a substantive part of the MDM during the patient???s E/M visit. I personally made or approved the documented management plan and acknowledge its risk of complications. (Independent Interpretation) My (EKG/X-Ray/US/CT) interpretation as above. (Discussion) Management/test interpretation discussed with APC. This report was transcribed using voice recognition software. Every effort was made to ensure accuracy, however, inadvertently computerized pusher operator mistakes may be present. Appropriate healthcare PPE was used in evaluating this patient. 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 Normal [facility] Comment on above: Result Comment: Elec tronically Signed By: Irvin Saldivar PA-C\.br\Date and Time Signed: 03/31/24 16:51 EDT\.br\Electronically Co-Signed By: Cayden Izaguirre DO\.br\Date and Time Co-Signed: 04/01/24 07:[address] Head or Brain w/o Contras ton 03-31-2024 CT Head or Brain w/o Contrast Exam Date/Time: 03/31/2024 12:19 EDT Reason for Exam: Head trauma, mod-severe;Other (please specify) Report IMPRESSION: No acute intracranial process. HISTORY: Fall. Head trauma. TECHNIQUE: Serial axial images without IV contrast were obtained from the vertex to the foramen magnum, with sagittal and coronal reconstructions. All CT scans at this facility use dose modulation, iterative reconstruction, and/or weight based dosing when appropriate to reduce radiation dose to as low as reasonably achievable. COMPARISON: 03/12/2023. RESULT: Acute change: No evidence of an acute contusion or other acute parenchymal process. Hemorrhage: No evidence of acute intracranial hemorrhage. Mass Lesion / Mass Effect: There is no evidence of an intracranial mass or extraaxial fluid collection. No significant mass effect. Chronic change: Scattered patchy foci of decreased attenuation within supratentorial white matter which is a nonspecific finding but likely represents mild microvascular ischemia. Vascular calcifications. Parenchyma: Mild to moderate visualized volume loss. Ventricles: The ventricles are within normal limits of size and configuration for age. Paranasal sinuses and skull base: The visualized paranasal sinuses are grossly clear. Postsurgical changes right mastoid with opacification of some residual right mastoid air cells, chronic, unchanged. No evidence for acute skull fracture. Soft tissues unremarkable. Ordering Provider: Irvin Saldivar FINAL REPORT Dictated: 03/31/2024 12:30 pm Miguel Elizabeth MD Signed (Electronic Signature): 03/31/2024 12:30 pm Signed by: Miguel Elizabeth MD Transcribed by: JUAN Technologist: YECENIA Lopez [facility] CT Spine Cervical w/o Contra ston 03-31-2024 CT Spine Cervical w/o Contrast Exam Date/Time: 03/31/2024 12:19 EDT Reason for Exam: Neck trauma;Other (please specify) Report IMPRESSION: No acute fracture or traumatic malalignment in the cervical spine. HISTORY: Fall. Neck pain. TECHNIQUE: CT of the cervical spine without IV contrast. Spiral, high resolution axial images were obtained from the skull base to the cervicothoracic junction with sagittal and coronal planar reconstructions. All CT scans at this facility use dose modulation, iterative reconstruction, and/or weight based dosing when appropriate to reduce radiation dose to as low as reasonably achievable. COMPARISON: 07/17/2021. RESULT: Counting reference: Craniocervical junction. Alignment: Straightening/reversal of the cervical lordosis, grossly similar to prior. Minimal anterolisthesis of C4 on C5, similar to prior. Craniocervical junction: Maintained with degenerative changes. Osseous structures/fracture: No evidence for acute fracture. No destructive osseous lesions. Underlying decreased bone mineral density. Cervical soft tissues: No acute findings. Carotid calcifications. Canal and foramina, degenerative changes: Multilevel degenerative changes, similar to prior. Ordering Provider: Irvin Saldivar FINAL REPORT Dictated: 03/31/2024 12:34 pm Miguel Elizabeth MD Signed (Electronic Signature): 03/31/2024 12:34 pm Signed by: Miguel Elizabeth MD Transcribed by: JUAN Technologist: YECENIA Lopez [facility] ED Clinical Summaryon 2023 ED Clinical Summary ED Clinical Summary [address] [address] ED Clinical Summary Person Information Name: JOSÉ LUIS FAULKNER [place] Age: 73 Years : 1950 Sex: Male Language: Hungarian PCP: Mona Baker MD Marital Status: Phone: [phone] Visit Id: Visit Reason: Elbow pain-swelling; Fall; FALL TODAY- LEFT ELBOW PAIN Speciality: Acuity: 3 Enc Type: Emergency Med Service: Emergency Arrival: 03/31/2024 11:23:11 Discharge: 03/31/2024 13:27:02 LOS: 000 02:04 Checkin: 03/31/2024 11:23:11 Checkout: 03/31/2024 13:27:02 Dispo Type: Home (Routine DC) EVENTS: Event Name Event Status Request Date/Time Start Date/Time Complete Date/Time Arrive Complete 03/31/2024 11:23:11 03/31/2024 11:23:11 03/31/2024 11:23:11 Document Home Meds Request 03/31/2024 11:23:11 Triage Complete 03/31/2024 11:23:11 03/31/2024 11:35:56 03/31/2024 11:35:56 Registration Complete 03/31/2024 11:28:24 03/31/2024 11:28:24 03/31/2024 11:28:24 Reg Complete Request 03/31/2024 11:28:24 Reg Bed Request Complete 03/31/2024 11:28:24 03/31/2024 11:28:24 03/31/2024 11:28:24 Bed Assign Complete 03/31/2024 11:28:39 03/31/2024 11:28:39 03/31/2024 11:28:39 Dr Exam Complete 03/31/2024 11:28:39 03/31/2024 11:29:42 03/31/2024 11:29:42 RN Exam Complete 03/31/2024 11:28:39 03/31/2024 11:42:24 03/31/2024 11:42:24 Registration Complete 03/31/2024 11:29:42 03/31/2024 11:59:27 03/31/2024 11:59:27 30 Day Return Request 03/31/2024 11:35:58 CT Complete 03/31/2024 11:36:06 03/31/2024 11:43:24 03/31/2024 12:19:29 X-Ray Complete 03/31/2024 11:36:06 03/31/2024 12:03:35 03/31/2024 12:26:55 Dr Exam Complete 03/31/2024 11:36:20 03/31/2024 11:36:20 03/31/2024 11:36:20 Fall Risk Request 03/31/2024 11:42:24 Trauma II Request 03/31/2024 11:47:53 30 Day Return Request 03/31/2024 11:47:53 Wet Read Complete 03/31/2024 12:26:55 03/31/2024 12:29:07 03/31/2024 12:29:07 Discharge Complete 03/31/2024 13:17:08 03/31/2024 13:27:07 03/31/2024 13:27:07 Transfer Complete 03/31/2024 13:27:07 03/31/2024 13:27:07 03/31/2024 13:27:07 ADDRESS: [address] [place] [id number] [facility] DOC NOTES: MEDICAL INFORMATION: Prescriptions Given: Medications [...] every 5 minutes as needed Chest pain. pantoprazole (Pantoprazole [address] Tab) 1 Tablets By Mouth every day. tamsulosin (tamsulosin 0.4 mg Cap) 30 EA, TAKE 1 CAPSULE BY MOUTH ONCE DAILY FOR 30 DAYS. torsemide (torsemide 20 mg Tab) 1 tab(s) Oral Daily and then addtional 1 tab oral daily as needed for Leg swelling or weight gain of 3 pounds. Refills: 0. trihexyphenidyl (trihexyphenidyl 2 mg Tab) 1 Tablets. TAKE 1 TABLET BY MOUTH ONCE DAILY WITH SUPPER. ubiquinone (Co-Q10 100 mg oral capsule) 1 Capsules By Mouth every day. warfarin (Coumadin 4 mg (more content not included)... [facility] ED Patient Summaryon 024 ED Patient Summary ED Patient Summary [address] [address] Patient Discharge Instructions Person Information Name: JOSÉ LUIS FAULKNER Age: 73 Years Arrival Date: 03/31/2024 11:23:11 Discharge Diagnosis: Elbow pain; Fall; Head injury Primary Care Physician: Mona Baker MD Provider Information Primary Provider: Cayden Izaguirre DO Advanced Physical Therapy Instructor:Irvin Saldivar PA-C The exam and treatment you received in the Emergency Department were for an urgent problem and are not intended as complete care. It is important that you follow up with a doctor, nurse practitioner, or physician???s public services assistant for ongoing care. If your symptoms become worse or you do not improve as expected and you are unable to reach your usual health care provider, you should return to the Emergency Department. We are available 24 hours a day. JOSÉ LUIS FAULKNER has been given the following list of patient education materials, prescriptions and follow-up instructions: Follow-up Instructions: With: Address: When: Mona [place] [place] [address] [facility] () In 3 days 04/03/2024 In the event that this physician does not participate in your insurance network, please consult with your insurance company to find a nearby participating provider. Patient Education Materials: Musculoskeletal Pain; Head Injury, Adult A MESSAGE TO ALL PATIENTS REGARDING OPIOIDS PRESCRIPTION OPIOIDS: WHAT YOU NEED TO KNOW Prescription opioids can be used to help relieve ptxlnskj-br-hsbmjm pain and are often prescribed following a [...] as well, even when taken as directed: ??? Tolerance???meaning you might need to take more of the medication for the same pain relief ??? Physical dependence???meaning you have symptoms of withdrawal when a medication is stopped ??? Increased sensitivity to pain ??? Constipation ??? Nausea, vomiting, and dry mouth ??? Sleepiness and dizziness ??? Confusion ??? Depression ??? Low levels of testosterone that can result in lower sex drive, energy, and strength ??? Itching and sweating RISKS ARE GREATER WITH: ??? History of drug misuse, substance use disorder, or overdose ??? Mental health conditions (such as depression or anxiety) ??? Sleep apnea ??? Older age (65 years and older) ??? Avoid alcohol while taking prescription opioids. Also, unless specifically advised by your health care provider, medications to avoid include: ??? Benzodiazepines (such as Xanax or Valium) ??? Muscle relaxants (such as Soma or Flexeril) ??? Hypnotics (such as Ambien or Lunesta) ??? Other prescription opioids KNOW YOUR OPTIONS Talk to your health care provider about ways to manage your pain that don???t involve prescription opioids. Some of these options may actually work better and have fewer risks and side effects. Options may include: ??? Pain relievers such as acetaminophen, ibuprofen, and naproxen ??? Some medication that are also used for depression or seizures ??? Physical therapy and exercise ??? Cognitive behavioral therapy, a psychological, goal-directed approach, in which patients learn how to modify physical, behavioral, and emotional triggers of pain and stress. IF YOU ARE PRESCRIBED OPIOIDS FOR PAIN: ??? Never take opioids in greater amounts or more often than prescribed. ??? Follow up with your primary health care provider. o Work together to create a plan on how to manage your pain. o Talk about ways to help manage your pain that don???t involve prescription opioids. o Talk about any and all concerns and side effects. ??? Help prevent misuse and abuse o Never sell or share prescription opioids. o Never use another person???s prescription opioids. ??? Store prescription opioids in a secure place and out of reach of others (this may include visitors, children, friends, and family). ??? Safely dispose of unused prescription opioids: Find your community drug take-back program or your pharmacy mail-back program, or flush them down the toilet, following guidance from the Food and Drug Administration (www.fda.gov/Drugs/Resource sForYou). ??? Visit www.cdc.gov/drugoverdose to learn about the risks of opioids abuse and overdose. ??? If you believe you may be struggling with addiction, t (more content not included)... [facility] XR Elbow 3+ Views Lefton XR Elbow 3+ Views Left Exam Date/Time: 03/31/2024 12:26 EDT Reason for Exam: Pain, Traumatic Report IMPRESSION: No acute osseous findings. EXAMINATION/TECHNIQUE: XR Elbow 3+ Views Left HISTORY: Fall with left elbow pain. COMPARISON: None RESULT: No acute fracture. No dislocation. No significant joint effusion. Small medial and lateral epicondyle enthesophytes. Mild degenerative changes with small osteophytes. Mild soft tissue edema. No other significant abnormality. Ordering Provider: Irvin Saldivar FINAL REPORT Dictated: 03/31/2024 1:25 pm Miguel Elizabeth MD Signed (Electronic Signature): 03/31/2024 1:25 pm Signed by: Miguel Elizabeth MD Transcribed by: JUAN Technologist: JACOB Technical Comments Radiation Dose: Ka,r in mGy = na DAP = na [facility] POCT PT/INRon 03-25-2024 POCT INR 2.1 High .7-1.2 [facility] Comment on above: Performed By: #### 2 [id number] #### [facility] [address] [id number] POCT PT 23.1 second(s) High 8.0-15.0 [facility] Comment on above: Performed By: #### 2 [id number] #### [facility] [address] [place] [address] 36on 03-21-2024 36 PCP needs to fill this. Thx Normal [facility] [place] 03-21-2024 ALT No additional P-5'-P [Catalytic activity/Vol] 9 Int._Unit/L Normal 6-46 [facility] Comment on above: Performed By: #### 2 [id number] #### [facility] [address] [place] [address] Vika 03-21-2024 AST [Catalytic activity/Vol] 15 Int._Unit/L Normal 5-43 [facility] Comment on above: Performed By: #### 2 [id number] #### [facility] [address] [place] [address] BMPon 03-21-2024 Anion gap [Moles/Vol] 13 mmol/L Normal 6-[address] [facility] Comment on above: Performed By: #### 2 [id number] #### [facility] [address] [place] [address] Calcium [Mass/Vol] 8.7 mg/dL Low 8.9-11.1 [facility] Comment on above: Performed By: #### 2 [id number] #### [facility] [address] [place] [address] Chloride [Moles/Vol] 107 mmol/L Normal 101-111 [facility] Comment on above: Performed By: #### 2 [id number] #### [facility] [address] [place] [address] CO2 [Moles/Vol] 25 mmol/L Normal 21-31 [facility] Comment on above: Performed By: #### 2 097279 #### [facility] [address] [place] [address] Creatinine [Mass/Vol] 1.3 mg/dL Normal 0.5-1.[address] [facility] Comment on above: Performed By: #### 2 [id number] #### [facility] [address] [place] [address] Glucose [Mass/Vol] 128 mg/dL Normal 55-199 [facility] Comment on above: Performed By: #### 2 [id number] #### [facility] [address] [place] [address] Potassium [Moles/Vol] 4.1 mmol/L Normal 3.5-5.[address] [facility] Comment on above: Performed By: #### 2 558101 #### [facility] [address] [place] [address] Sodium [Moles/Vol] 141 mmol/L Normal 135-145 [facility] Comment on above: Performed By: #### 2 [id number] #### [facility] [address] [place] [address] Urea nitrogen [Mass/Vol] 18 mg/dL Normal 5-21 [facility] Comment on above: Performed By: #### 2 [id number] #### [facility] [address] [place] [address] Urea nitrogen/Creatinine [Mass ratio] 14 No Units Normal 10-20 [facility] Comment on above: Performed By: #### 2 [id number] #### [facility] [address] [place] [address] CBC w/ Auto Diffon 4 Basophils/100 WBC (Bld) 1.1 % Normal 0.0-2.0 [facility] Comment on above: Performed By: #### 2 [id number] #### [facility] [address] [place] [address] Basophils/Leukocytes Auto (Bld) [Pure # fraction] 0.1 E9/L Normal 0.0-0.2 [facility] Comment on above: Performed By: #### 2 [id number] #### [facility] [address] [place] [address] Eosinophils (Bld) [#/Vol] 0.2 E9/L Normal 0.0-0.5 [facility] Comment on above: Performed By: #### 2 155507 #### [facility] [address] [place] [address] Eosinophils/100 WBC (Bld) 2.6 % Normal 0.0-8.0 [facility] Comment on above: Performed By: #### 2 [id number] #### [facility] [address] [place] [address] Erythrocyte distribution width (RBC) [Ratio] 15.7 % High 10.9-14.2 [facility] Comment on above: Performed By: #### 2 [id number] #### [facility] [address] [place] [address] Hematocrit (Bld) [Volume fraction] 27.0 % Low 37.7-49.0 [facility] Comment on above: Performed By: #### 2 [id number] #### [facility] [address] [place] [address] Hemoglobin (Bld) [Mass/Vol] 9.2 g/dL Low 13.5-17.5 [facility] Comment on above: Performed By: #### 2 219409 #### [facility] [address] [place] [address] Lymphocytes (Bld) [#/Vol] 1.2 E9/L Normal 1.0-4.0 [facility] Comment on above: Performed By: #### 2 482075 #### [facility] [address] [place] [address] Lymphocytes/100 WBC (Bld) 14.8 % Normal 14.0-50.0 [facility] Comment on above: Performed By: #### 2 [id number] #### [facility] [address] [place] [address] MCH (RBC) [Entitic mass] 30.0 pg Normal 27.0-34.0 [facility] Comment on above: Performed By: #### 2 339373 #### [facility] [address] [place] [address] MCHC (RBC) [Mass/Vol] 34.2 g/dL Normal 31.4-36.[address] [facility] Comment on above: Performed By: #### 2 943231 #### [facility] [address] [place] [address] MCV (RBC) [Entitic vol] 87.9 fL Normal 80.0-100.0 [facility] Comment on above: Performed By: #### 2 [id number] #### [facility] [address] [place] [address] Monocytes (Bld) [#/Vol] 0.5 E9/L Normal 0.2-1.0 [facility] Comment on above: Performed By: #### 2 989228 #### [facility] [address] [place] [address] Neutrophils (Bld) [#/Vol] 5.9 E9/L Normal 2.0-7.5 [facility] Comment on above: Performed By: #### 2 131960 #### [facility] [address] [place] [address] Neutrophils/100 WBC (Bld) 75.1 % High 36.0-75.0 [facility] Comment on above: Performed By: #### 2 981814 #### [facility] [address] [place] [address] Platelet 264.0 E9/L Normal 150.0-500. 0 [facility] Comment on above: Performed By: #### 2 746590 #### [facility] [address] [place] [address] Platelet mean volume (Bld) [Entitic vol] 7.1 fL Normal 6.4-10.8 [facility] Comment on above: Performed By: #### 2 608966 #### [facility] [address] [place] [address] RBC (Bld) [#/Vol] 3.1 E12/L Low 4.3-5.9 [facility] Comment on above: Performed By: #### 2 710149 #### [facility] [address] [place] [address] WBC corrected for nucl RBC Auto (Bld) [#/Vol] 7.9 E9/L Normal 4.0-11.0 [facility] Comment on above: Performed By: #### 2 822857 #### [facility] [address] [place] [address] CHEMISTRYOrdered By: SYSTEM SYSTEM on 03-21-2024 ALT No additional P-5'-P [Catalytic activity/Vol] 9 [iU]/d Normal 6 - 46 Int._Unit/ L [facility] Anion gap [Moles/Vol] 13 mmol/L Normal 6 - 16 mEq/L [facility] AST [Catalytic activity/Vol] 15 [iU]/d Normal 5 - 43 Int._Unit/ L [facility] Calcium [Mass/Vol] 8.7 mg/dL Low 8.9 - 11. 1 mg/dL [facility] Chloride [Moles/Vol] 107 mmol/L Normal 101 - 1 11 mmol/L [facility] Cholesterol [Mass/Vol] 107 mg/dL Low 120 - 200 mg/dL [facility] Cholesterol in HDL [Mass/Vol] 39 mg/dL Invalid Interpretation Code [facility] Comment on above: Result Comment: '>= 60 LOW RISK' '<= 40 HIGH RISK' Cholesterol in LDL [Mass/Vol] 49 mg/dL Normal <=129mg/dL [facility] Cholesterol in VLDL [Mass/Vol] 32 mg/dL Normal 7 - 40 mg/dL [facility] CO2 [Moles/Vol] 25 mmol/L Normal 21 - 31 mmol/L [facility] Creatinine [Mass/Vol] 1.3 mg/dL Normal 0.5 - 1.3 mg/dL [facility] eGFR 57 mL/min/1.73 m2 Low >=59mL/min /1.73 m2 [facility] Glucose [Mass/Vol] 128 mg/dL Normal 55 - 199 mg/dL [facility] Potassium [Moles/Vol] 4.1 mmol/L Normal 3.5 - 5.3 mmol/L [facility] Sodium [Moles/Vol] 141 mmol/L Normal 135 - 145 mmol/L [facility] Triglyceride [Mass/Vol] 158 mg/dL High <=149mg/dL [facility] TSH Qn 13.90 m[IU]/L High 0.34 - 5.60 mcIU/mL [facility] Urea nitrogen [Mass/Vol] 18 mg/dL Normal 5 - 21 mg/dL [facility] Urea nitrogen/Creatinine [Mass ratio] 14 mg/mg Normal 10 - 20 [facility] HEMATOLOGYOrdered By: SYSTEM SYSTEM on 03-21-2024 Basophils/100 WBC (Bld) 1.1 % Normal 0.0 - 2.0 % [facility] Basophils/Leukocytes Auto (Bld) [Pure # fraction] 0.1 E9/L Normal 0.0 - 0.2 E9/L [facility] Eosinophils (Bld) [#/Vol] 0.2 E9/L Normal 0.0 - 0.5 E9/L [facility] Eosinophils/100 WBC (Bld) 2.6 % Normal 0.0 - 8.0 % [facility] Erythrocyte distribution width (RBC) [Ratio] 15.7 % High 10.9 - 14.2 % [facility] Hematocrit (Bld) [Volume fraction] 27.0 % Low 37.7 - 49.0 % [facility] Hemoglobin (Bld) [Mass/Vol] 9.2 g/dL Low 13.5 - 17.5 gm/dL [facility] Lymphocytes (Bld) [#/Vol] 1.2 E9/L Normal 1.0 - 4.0 E9/L [facility] Lymphocytes/100 WBC (Bld) 14.8 % Normal 14.0 - 50.0 % [facility] MCH (RBC) [Entitic mass] 30.0 pg Normal 27.0 - 34.0 pg [facility] MCHC (RBC) [Mass/Vol] 34.2 g/dL Normal 31.4 - 36.0 gm/dL [facility] MCV (RBC) [Entitic vol] 87.9 fL Normal 80.0 - 100.0 fL [facility] Monocytes (Bld) [#/Vol] 0.5 E9/L Normal 0.2 - 1.0 E9/L [facility] Monocytes/100 WBC (Bld) 6.4 % Normal 4.0 - 14.0 % [facility] Neutrophils (Bld) [#/Vol] 5.9 E9/L Normal 2.0 - 7.5 E9/L [facility] Neutrophils/100 WBC (Bld) 75.1 % High 36.0 - 75.0 % [facility] Platelet 264.0 E9/L Normal 150.0 - 500.0 E9/L [facility] Platelet mean volume (Bld) [Entitic vol] 7.1 fL Normal 6.4 - 10.8 fL [facility] RBC (Bld) [#/Vol] 3.1 E12/L Low 4.3 - 5.9 E12/L [facility] WBC corrected for nucl RBC Auto (Bld) [#/Vol] 7.9 E9/L Normal 4.0 - 11.0 E9/L [facility] Lipid Panelon 03-21-2024 Cholesterol [Mass/Vol] 107 mg/dL Low 120-200 [facility] Comment on above: Performed By: #### 2 [id number] #### [facility] [address] [place] [address] Cholesterol in HDL [Mass/Vol] 39 mg/dL Invalid Interpretation Code [facility] Comment on above: Result Comment: '>= 60 LOW RISK' '<= 40 HIGH RISK' Performed By: #### 2 [id number] #### [facility] [address] [place] [address] Cholesterol in LDL [Mass/Vol] 49 mg/dL Normal <=129 [facility] Comment on above: Performed By: #### 2 235733 #### [facility] [address] [place] [address] Cholesterol in VLDL [Mass/Vol] 32 mg/dL Normal 7-40 [facility] Comment on above: Performed By: #### 2 284074 #### [facility] [address] [place] [address] Triglyceride [Mass/Vol] 158 mg/dL High <=149 [facility] Comment on above: Performed By: #### 2 [id number] #### [facility] [address] [place] [address] TSHon 03-21-2024 TSH Qn 13.90 m[IU]/L High 0.34-5.60 [facility] Comment on above: Performed By: #### 2 070750 #### [facility] [address] [place] [address] eGFRon 03-21-2024 eGFR 57 mL/min/1.73 m2 Low >=59 [facility] Comment on above: Performed By: #### 1 [id number] #### [facility] [address] [place] [address] Patient Letter FTon 2023 Patient Letter [facility] Patient Letter [facility] March 14, 2024 JOSÉ LUIS FAULKNER [address] [place] [address] : 1950 Dear José Luis, This is a reminder that you are due for an appointment with [facility]. Please contact our office at [phone] to schedule an appointment at your earliest convenience. Thank you, [facility] Coding Queryon 03-07-2024 Coding Query Coding Query From: Ophelia Hutton RN To: Boaz Teresa III, DO; Sent: 03/04/2024 15:19:24 EDT ! Subject: Coding Query Due Date/Time: 03/05/2024 15:19:00 EDT Caller Name: JOSÉ LUIS FAULKNER; Caller Number: , M The following labs are documented [...] diuresis From: Boaz Teresa III, DO To: Brennen RN, Ophelia Monroy; Sent: 03/07/2024 15:08:41 EDT Subject: RE: Coding Query Caller Name: JOSÉ LUIS FAULKNER; Caller Number: H , M [facility] General Message Officeon [employer] Office General Message O ffice --- --- --- --- --- --- --- --- --- From: Renetta, [employer] To: JOSÉ LUIS FAULKNER Sent: 03/05/24 02:30:26 AM EDT Subject: Discharge Summary Ready to View A summary regarding your recent visit is available in the Documents section of your health record. [facility] BMPon 03-04-2024 Anion gap [Moles/Vol] 12 mmol/L Normal 6-[address] [facility] Comment on above: Performed By: #### 2 [id number] #### [facility] [address] [place] [address] Calcium [Mass/Vol] 8.8 mg/dL Low 8.9-11.1 [facility] Comment on above: Performed By: #### 2 632237 #### [facility] [address] [place] [address] Chloride [Moles/Vol] 100 mmol/L Low 101-111 [facility] Comment on above: Performed By: #### 2 [id number] #### [facility] [address] [place] [address] CO2 [Moles/Vol] 33 mmol/L High 21-31 [facility] Comment on above: Performed By: #### 2 837566 #### [facility] [address] [place] [address] Creatinine [Mass/Vol] 1.4 mg/dL High 0.5-1.[address] [facility] Comment on above: Performed By: #### 2 785802 #### [facility] [address] [place] [address] Glucose [Mass/Vol] 137 mg/dL Normal 55-199 [facility] Comment on above: Performed By: #### 2 096859 #### [facility] [address] [place] [address] Potassium [Moles/Vol] 3.7 mmol/L Normal 3.5-5.[address] [facility] Comment on above: Performed By: #### 2 593384 #### [facility] [address] [place] [address] Sodium [Moles/Vol] 141 mmol/L Normal 135-145 [facility] Comment on above: Performed By: #### 2 988975 #### [facility] [address] [place] [address] Urea nitrogen [Mass/Vol] 31 mg/dL High 5-21 [facility] Comment on above: Performed By: #### 2 081783 #### [facility] [address] [place] [address] Urea nitrogen/Creatinine [Mass ratio] 22 No Units High 10-20 [facility] Comment on above: Performed By: #### 2 642554 #### [facility] [address] [place] [address] CBC w/ Auto Diffon 4 Basophils/100 WBC (Bld) 0.7 % Normal 0.0-2.0 [facility] Comment on above: Performed By: #### 2 009904 #### [facility] [address] [place] [address] Basophils/Leukocytes Auto (Bld) [Pure # fraction] 0.1 E9/L Normal 0.0-0.2 [facility] Comment on above: Performed By: #### 2 769503 #### [facility] [address] [place] [address] Eosinophils (Bld) [#/Vol] 0.2 E9/L Normal 0.0-0.5 [facility] Comment on above: Performed By: #### 2 212166 #### [facility] [address] [place] [address] Eosinophils/100 WBC (Bld) 1.6 % Normal 0.0-8.0 [facility] Comment on above: Performed By: #### 2 951321 #### [facility] [address] [place] [address] Erythrocyte distribution width (RBC) [Ratio] 15.4 % High 10.9-14.2 [facility] Comment on above: Performed By: #### 2 952509 #### [facility] [address] [place] [address] Hematocrit (Bld) [Volume fraction] 28.9 % Low 37.7-49.0 [facility] Comment on above: Performed By: #### 2 [id number] #### [facility] [address] [place] [address] Hemoglobin (Bld) [Mass/Vol] 9.7 g/dL Low 13.5-17.5 [facility] Comment on above: Performed By: #### 2 698412 #### [facility] [address] [place] [address] Lymphocytes (Bld) [#/Vol] 1.7 E9/L Normal 1.0-4.0 [facility] Comment on above: Performed By: #### 2 995127 #### [facility] [address] [place] [address] Lymphocytes/100 WBC (Bld) 15.8 % Normal 14.0-50.0 [facility] Comment on above: Performed By: #### 2 183187 #### [facility] [address] [place] [address] MCH (RBC) [Entitic mass] 29.4 pg Normal 27.0-34.0 [facility] Comment on above: Performed By: #### 2 692289 #### [facility] [address] [place] [address] MCHC (RBC) [Mass/Vol] 33.6 g/dL Normal 31.4-36.[address] [facility] Comment on above: Performed By: #### 2 799502 #### [facility] [address] [place] [address] MCV (RBC) [Entitic vol] 87.7 fL Normal 80.0-100.0 [facility] Comment on above: Performed By: #### 2 911990 #### [facility] [address] [place] [address] Monocytes (Bld) [#/Vol] 0.8 E9/L Normal 0.2-1.0 [facility] Comment on above: Performed By: #### 2 577518 #### [facility] [address] [place] [address] Neutrophils (Bld) [#/Vol] 8.3 E9/L High 2.0-7.5 [facility] Comment on above: Performed By: #### 2 754704 #### [facility] [address] [place] [address] Neutrophils/100 WBC (Bld) 75.0 % Normal 36.0-75.0 [facility] Comment on above: Performed By: #### 2 407827 #### [facility] [address] [place] [address] Platelet mean volume (Bld) [Entitic vol] 6.4 fL Normal 6.4-10.8 [facility] Comment on above: Performed By: #### 2 472702 #### [facility] [address] [place] [address] Platelets (Bld) [#/Vol] 319.0 E9/L Normal 150.0-500. 0 [facility] Comment on above: Performed By: #### 2 579879 #### [facility] [address] [place] [address] RBC (Bld) [#/Vol] 3.3 E12/L Low 4.3-5.9 [facility] Comment on above: Performed By: #### 2 759442 #### [facility] [address] [place] [address] WBC corrected for nucl RBC Auto (Bld) [#/Vol] 11.0 E9/L Normal 4.0-11.0 [facility] Comment on above: Performed By: #### 2 545466 #### [facility] [address] [place] [address] CHEMISTRYOrdered By: Lab ROP User on 03-04-2024 Glucose [Mass/Vol] 249 mg/dL High 55 - 99 mg/dL [facility] POC Subsection Comment on above: Result Comment: Kennedy espitia RN/ POC Device SN [id number] Invalid Interpretation Code FT POC Subsection POC User ID [id number] 1 Invalid Interpretation Code [facility] POC Subsection POC Username DARLENE MCGARRY Invalid Interpretation Code [facility] POC Subsection Glucose [Mass/Vol] 141 mg/dL High 55 - 99 mg/dL [facility] POC Subsection Comment on above: Result Comment: Kennedy espitia RN/ POC Device SN [id number] 1 Invalid Interpretation Code [facility] POC Subsection POC User ID [id number] 1 Invalid Interpretation Code [facility] POC Subsection POC Username DARLENE MCGARRY Invalid Interpretation Code [facility] POC Subsection CHEMISTRYOrdered By: SYSTEM SYSTEM on [...] [Relative time] 2.71 {INR} Invalid Interpretation Code [facility] Auto Coag Comment on above: Interpretive Data: I NR results are specifically intended to assess patients stabilized on long-term Anticoagulation therapy suggested INR s Less Intensive Anticoagulation 2.0 3.0 Conventional Range 3.0 4.5 PT Coag (PPP) [Time] 30.7 s High 9.4 - 1 2.5 second(s) [facility] Auto Coag Comment on above: Interpretive Data: [...] the same coagulation reagent and instrumentation as [facility]. Currently there are no coagulation studies available worldwide for children to 14 days, and no normal ranges. Capillary Glucose POCon Glucose [Mass/Vol] 249 mg/dL High 55-99 [facility] Comment on above: Result Comment: Kennedy SULLIVAN Performed By: #### 2 [id number] #### [facility] [address] [place] [address] Glucose [Mass/Vol] 141 mg/dL High 55-99 [facility] Comment on above: Result Comment: Kennedy SULLIVAN Performed By: #### 2 [id number] #### [facility] [address] [place] [address] Discharge Note-Nursingon Discharge Note-Nursing Discharge Note-Cherelle shen JOSÉ LUIS FAULKNER :1950 Visit Date:03/02/2024 Inpatient Discharge Instructions Your Care Team Admitting Physician - Aden BROUSSARD, Paul Regalado Consulting Physician - Danna BROUSSARD, Felipa [facility], [facility]X Reason for Your Visit Shortness [...] Appointments Sunday 2:00 PM EDT With: Where: [facility] 2023 11:00 AM EST With: Where: [facility] 2024 1:40 PM EDT With: Armani Yarbrough DO Where: [facility] New Follow Up Appointments after Discharge Follow Up with Mona Baker When: 03/06/2024 01:20 PM EDT Where: [address] [place] [address]- [facility] (1) Follow Up with Mona Baker When: Within 7 to 10 days Comments: Call for followup appointment Where: [address] [place] [address]- [facility] (1) Medications What How Much When Why [...] needed Unchan (more content not included)... Normal [facility] HEMATOLOGYOrdered By: SYSTEM SYSTEM on 03-04-2024 [...] 03-04-2024 Inpatient Clinical Summary Inpatient Clinical Summary [address] [address] Clinical Summary Person Information: Name: JOSÉ LUIS FAULKNER Age: 73 Years : 1950 Sex: Male PCP: Mona Baker MD Marital Status: Phone: [phone] Race: White Ethnicity: Non- or Language: Hungarian Visit Id: Visit Reason: Shortness of breath; SOB Speciality: Acuity: Enc Type: Inpatient Med Service: Medical Arrival: 03/02/2024 08:07:40 Discharge: Dispo Type: Admitted as IP to this Hosp Address: [address] [place] [address] [facility] [place] [id number] Provider Notes: Diagnosis: 1:Acute on chronic respiratory [...] reflux uropathy Parkinsonian syndrome 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 (more content not included)... Normal [facility] Inpatient Patient Summaryon 03-04-2024 Inpatient Patient Summary Inpatient Patient Summary [address] [address] Patient Discharge Instructions PERSON INFORMATION Name: JOSÉ [...] with unspecified severity Condition at Discharge: Improved MELY IGNACIOJOSÉ LUIS BONILLA Eliana has been given the following list of [...] With: Address: When: [place] [address] Business (1) 03/06/2024 1:20 PM With: Address: When: [place] [address] [facility] (1) Within 7 to 10 days Comments: [...] Last Dose: (more content not included)... 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 [facility] Comment on above: Result Comment: Elec tronically Signed By: Flaco MCCLELLAND, Estelita\.ricardo\Date and Time Signed: 03/04/24 09:09 EDT PTon 03-04-2024 INR Coag (PPP) [Relative time] 2.71 {INR} Invalid Interpretation Code [facility] Comment on above: Result Comment: INR results are specifically intended to assess patients stabilized on long-term Anticoagulation therapy suggested INR?s ?Less Intensive Anticoagulation? 2.0 ? 3.0 Conventional Range 3.0 ? 4.5 Performed By: #### 2 [id number] #### [facility] [address] [place] [address] PT Coag (PPP) [Time] 30.7 second(s) High 9.4-12.5 [facility] Comment on above: Result Comment: 15 [...] the same coagulation reagent and instrumentation as [facility]. Currently there are no coagulation studies available worldwide for children to 14 days, and no normal ranges. Performed By: #### 2 [id number] #### [facility] [address] [place] [address] eGFRon 03-04-2024 eGFR 52 mL/min/1.73 m2 Low >=59 [facility] Comment on above: Performed By: #### 1 [id number] #### [facility] [address] [place] [address] BMPOrdered By: SYSTEM SYSTEM on 03-03-2024 Anion gap [Moles/Vol] 12 mmol/L Normal 6 - 16 mEq/L [facility] Comment on above: Performed By: #### 2 [id number] #### [facility] [address] [place] [address] Calcium [Mass/Vol] 8.8 mg/dL Low 8.9 - 11. 1 mg/dL [facility] Comment on above: Performed By: #### 2 [id number] #### [facility] [address] [place] [address] Chloride [Moles/Vol] 99 mmol/L Low 101 - 1 11 mmol/L [facility] Comment on above: Performed By: #### 2 [id number] #### [facility] [address] [place] [address] CO2 [Moles/Vol] 32 mmol/L High 21 - 31 mmol/L [facility] Comment on above: Performed By: #### 2 [id number] #### [facility] [address] [place] [address] Creatinine [Mass/Vol] 1.5 mg/dL High 0.5 - 1.3 mg/dL [facility] Comment on above: Performed By: #### 2 697837 #### [facility] [address] [place] [address] Glucose [Mass/Vol] 241 mg/dL High 55 - 199 mg/dL [facility] Comment on above: Performed By: #### 2 [id number] #### [facility] [address] [place] [address] Potassium [Moles/Vol] 4.3 mmol/L Normal 3.5 - 5.3 mmol/L [facility] Comment on above: Performed By: #### 2 [id number] #### [facility] [address] [place] [address] Sodium [Moles/Vol] 139 mmol/L Normal 135 - 145 mmol/L [facility] Comment on above: Performed By: #### 2 [id number] #### [facility] [address] [place] [address] Urea nitrogen [Mass/Vol] 29 mg/dL High 5 - 21 mg/dL [facility] Comment on above: Performed By: #### 2 [id number] #### [facility] [address] [place] [address] BMPon 03-03-2024 Urea nitrogen/Creatinine [Mass ratio] 19 No Units Normal 10-20 [facility] Comment on above: Performed By: #### 2 [id number] #### [facility] [address] [place] [address] CBC w/ Auto DiffOrdered By: SYSTEM SYSTEM on 03-03-2024 Basophils/100 WBC (Bld) 0.2 % Normal 0.0 - 2.0 % [facility] Comment on above: Performed By: #### 2 250094 #### [facility] [address] [place] [address] Basophils/Leukocytes Auto (Bld) [Pure # fraction] 0.0 E9/L Normal 0.0 - 0.2 E9/L [facility] Comment on above: Performed By: #### 2 [id number] #### [facility] [address] [place] [address] Eosinophils (Bld) [#/Vol] 0.0 E9/L Normal 0.0 - 0.5 E9/L [facility] Comment on above: Performed By: #### 2 553154 #### [facility] [address] [place] [address] Eosinophils/100 WBC (Bld) 0.0 % Normal 0.0 - 8.0 % [facility] Comment on above: Performed By: #### 2 219246 #### [facility] [address] [place] [address] Erythrocyte distribution width (RBC) [Ratio] 15.5 % High 10.9 - 14.2 % [facility] Comment on above: Performed By: #### 2 [id number] #### [facility] [address] [place] [address] Hematocrit (Bld) [Volume fraction] 27.9 % Low 37.7 - 49.0 % [facility] Comment on above: Performed By: #### 2 110274 #### [facility] [address] [place] [address] Hemoglobin (Bld) [Mass/Vol] 9.4 g/dL Low 13.5 - 17.5 gm/dL [facility] Comment on above: Performed By: #### 2 542063 #### [facility] [address] [place] [address] Lymphocytes (Bld) [#/Vol] 0.8 E9/L Low 1.0 - 4.0 E9/L [facility] Comment on above: Performed By: #### 2 369653 #### [facility] [address] [place] [address] Lymphocytes/100 WBC (Bld) 9.7 % Low 14.0 - 50.0 % [facility] Comment on above: Performed By: #### 2 617605 #### [facility] [address] [place] [address] MCH (RBC) [Entitic mass] 29.4 pg Normal 27.0 - 34.0 pg [facility] Comment on above: Performed By: #### 2 074785 #### [facility] [address] [place] [address] MCHC (RBC) [Mass/Vol] 33.7 g/dL Normal 31.4 - 36.0 gm/dL [facility] Comment on above: Performed By: #### 2 086800 #### [facility] [address] [place] [address] MCV (RBC) [Entitic vol] 87.3 fL Normal 80.0 - 100.0 fL [facility] Comment on above: Performed By: #### 2 [id number] #### [facility] [address] [place] [address] Monocytes (Bld) [#/Vol] 0.7 E9/L Normal 0.2 - 1.0 E9/L [facility] Comment on above: Performed By: #### 2 [id number] #### [facility] [address] [place] [address] Neutrophils (Bld) [#/Vol] 7.1 E9/L Normal 2.0 - 7.5 E9/L [facility] Comment on above: Performed By: #### 2 806331 #### [facility] [address] [place] [address] Neutrophils/100 WBC (Bld) 82.0 % High 36.0 - 75.0 % [facility] Comment on above: Performed By: #### 2 792261 #### [facility] [address] [place] [address] Platelet mean volume (Bld) [Entitic vol] 6.7 fL Normal 6.4 - 10.8 fL [facility] Comment on above: Performed By: #### 2 621945 #### [facility] [address] [place] [address] Platelets (Bld) [#/Vol] 323.0 E9/L Normal 150.0 - 500.0 E9/L [facility] Comment on above: Performed By: #### 2 [id number] #### [facility] [address] [place] [address] RBC (Bld) [#/Vol] 3.2 E12/L Low 4.3 - 5.9 E12/L [facility] Comment on above: Performed By: #### 2 804526 #### [facility] [address] [place] [address] WBC corrected for nucl RBC Auto (Bld) [#/Vol] 8.7 E9/L Normal 4.0 - 11.0 E9/L [facility] Comment on above: Performed By: #### 2 [id number] #### [facility] [address] [place] [address] CHEMISTRYOrdered By: Lab ROP User on 03-03-2024 Glucose [Mass/Vol] 262 mg/dL High 55 - 99 mg/dL [facility] POC Subsection Comment on above: Result Comment: Kennedy espitia RN/ POC Device SN [id number] Invalid Interpretation Code [facility] POC Subsection POC User ID [id number] 1 Invalid Interpretation Code [facility] POC Subsection POC Username LUIS ENRIQUE POWERS Invalid Interpretation Code [facility] POC Subsection CHEMISTRYOrdered By: SYSTEM SYSTEM on 03-03-2024 Urea nitrogen/Creatinine [Mass ratio] 19 mg/mg Normal 10 - 20 [facility] COAGULATIONOrdered By: Zay Saab on 03-03-2024 PT Coag (PPP) [Time] 23.0 s High 9.4 - 1 2.5 second(s) [facility] Auto Coag Comment on above: Interpretive Data: [...] the same coagulation reagent and instrumentation as [facility]. Currently there are no coagulation studies available worldwide for children to 14 days, and no normal ranges. Capillary Glucose POCon 02-04 Glucose [Mass/Vol] 262 mg/dL High 55-99 [facility] Comment on above: Result Comment: Kennedy SULLIVAN Performed By: #### 2 [id number] #### [facility] [address] [place] [address] Glucose [Mass/Vol] 168 mg/dL High 55-99 [facility] Comment on above: Result Comment: Kennedy SULLIVAN Performed By: #### 2 [id number] #### [facility] [address] [place] [address] Glucose [Mass/Vol] 205 mg/dL High 55-99 [facility] Comment on above: Result Comment: Kennedy SULLIVAN Performed By: #### 2 [id number] #### [facility] [address] [place] [address] Glucose [Mass/Vol] 211 mg/dL High 55-99 [facility] Comment on above: Result Comment: Kennedy SULLIVAN Performed By: #### 2 [id number] #### [facility] [address] [place] [address] Free W1Eszsqyl By: SYSTEM SY STEM on 03-03-2024 Free T4 [Mass/Vol] 1.07 ng/dL Normal 0.58 - 1.64 ng/dL [facility] Comment on above: Performed By: #### 2 [id number] #### [facility] [address] [place] [address] HEMATOLOGYOrdered By: SYSTEM SYSTEM on 03-03-2024 Monocytes/100 WBC (Bld) 8.1 % Normal 4.0 - 14.0 % [facility] Inpatient Clinical Summaryon 03-03-2024 Inpatient Clinical Summary Inpatient Clinical Summary [address] [address] Clinical Summary Person Information: Name: JOSÉ LUIS FAULKNER Age: 73 Years : 1950 Sex: Male PCP: Mona Baker MD Marital Status: Phone: [phone] Race: White Ethnicity: Non- or Language: Hungarian Visit Id: Visit Reason: Shortness of breath; SOB Speciality: Acuity: Enc Type: Inpatient Med Service: Medical Arrival: 03/02/2024 08:07:40 Discharge: Dispo Type: Admitted as IP to this Hosp Address: [address] [place] [id number] Provider Notes: Diagnosis: 1:Acute on chronic respiratory [...] reflux uropathy Parkinsonian syndrome JASMIN on CPAP assisted (current) use of insulin Weakness generalized BPH [...] 1 Tabl (more content not included)... Normal [facility] Inpatient Patient Summaryon 03-03-2024 Inpatient Patient Summary Inpatient Patient Summary [place] [address] Patient Discharge Instructions PERSON INFORMATION Name: JOSÉ LUIS FAULKNER Date of : 1950 Current Date: 03/03/2024 09:43:23 PHYSICIANS Admitting Physician: Paul Samaniego MD Primary [...] 1:40 PM 10/30/2024 2:00 PM Confirmed Comment: EMLY Moss NICOLAAS A, have received the attached [...] suspension) 20 Unit (more content not included)... [facility] Interdisciplinary Note - Edwardo e Manageron 03-03-2024 Interdisciplinary Note - Cnc Operator Programmer Interdisciplinary Note - Cnc Operator Programmer Patient is alert in bed, previously rounded with Dr. Teresa. Pt is inpt admit with CHF exacerbation. PT is from home with and also daughter, ANTON and 2 grandchildren live in a separate part of the house. Declines any anticipated concerns or DC needs. Pt had home oxygen from [employer], was recently taken away a few weeks [...] therapy evals and OPPT vs HH at [facility] Comment on above: Result Comment: Elec tronically Signed By: Estelita Sam RN\.br\Date and Time Signed: 03/03/24 14:55 EDT Interdisciplinary Note - Cnc Operator Programmer Interdisciplinary Note - Cnc Operator Programmer Patient is alert in bed, previously rounded with Dr. Teresa. Pt is inpt admit with CHF exacerbation. PT is from home with and also daughter, ANTON and 2 grandchildren live in a separate part of the house. Declines any anticipated concerns or DC needs. Pt had home oxygen from [employer], was recently taken away a few weeks ago as it was determined pt no longer needed at home. Pt is currently on 2L. will need to wean off oxygen or desat prior to DC. Pending therapy evals, Medicare rights reviewed, CRM folliowing. . PCP verified and insurance information reviewed and DME discussed. Contact information provided and white board updated. [facility] Comment on above: Result Comment: Elec tronically Signed By: Estelita Sam RN\.br\Date and Time Signed: 03/03/24 09:34 EDT Interdisciplinary [...] recommended at this time for discharge. Normal [facility] MagnesiumOrdered By: SYSTEM SYSTEM on 03-03-2024 Magnesium [Mass/Vol] 2.2 mg/dL Normal 1.3 - 2 .4 mg/dL [facility] Comment on above: Performed By: #### 2 [id number] #### [facility] [address] [place] [address] PTOrdered By: Sheree yanez on 03-03-2024 INR Coag (PPP) [Relative time] 2.04 {INR} Invalid Interpretation Code [facility] Auto Co[facility] Comment on above: Result Comment: INR results are specifically intended to assess patients stabilized on long-term Anticoagulation therapy suggested INR?s ?Less Intensive Anticoagulation? 2.0 ? 3.0 Conventional Range 3.0 ? 4.5 Performed By: #### 2 [id number] #### [facility] [address] [place] [id number] Interpretive Data: I NR results are specifically intended to assess patients stabilized on long-term Anticoagulation therapy suggested INR s Less Intensive Anticoagulation 2.0 3.0 Conventional Range 3.0 4.5 PTon 03-03-2024 PT Coag (PPP) [Time] 23.0 second(s) High 9.4-12.5 [facility] Comment on above: Result Comment: 15 [...] the same coagulation reagent and instrumentation as [facility]. Currently there are no coagulation studies available worldwide for children to 14 days, and no normal ranges. Performed By: #### 2 [id number] #### [facility] [address] [place] [address] TSH With T4fr ReflexOrdered By: SYSTEM SYSTEM on 03-03-2024 TSH Qn 6.84 m[IU]/L High 0.34 - 5.60 mcIU/mL [facility] Comment on above: Performed By: #### 1 [id number] #### [facility] [address] [place] [address] eGFROrdered By: SYSTEM SYSTE M on 03-03-2024 eGFR 48 mL/min/1.73 m2 Low >=59mL/min /1.73 m2 [facility] Comment on above: Performed By: #### 1 [id number] #### [facility] [address] [place] [address] BMPon 03-02-2024 Anion gap [Moles/Vol] 13 mmol/L Normal 6-[address] [facility] Comment on above: Performed By: #### 2 [id number] #### [facility] [address] [place] [address] Calcium [Mass/Vol] 8.6 mg/dL Low 8.9-11.1 [facility] Comment on above: Performed By: #### 2 505392 #### [facility] [address] [place] [address] Chloride [Moles/Vol] 103 mmol/L Normal 101-111 [facility] Comment on above: Performed By: #### 2 798170 #### [facility] [address] [place] [address] CO2 [Moles/Vol] 27 mmol/L Normal 21-31 [facility] Comment on above: Performed By: #### 2 142140 #### [facility] [address] [place] [address] Creatinine [Mass/Vol] 1.1 mg/dL Normal 0.5-1.[address] [facility] Comment on above: Performed By: #### 2 845918 #### [facility] [address] [place] [address] Glucose [Mass/Vol] 178 mg/dL Normal 55-199 [facility] Comment on above: Performed By: #### 2 [id number] #### [facility] [address] [place] [address] Potassium [Moles/Vol] 4.2 mmol/L Normal 3.5-5.[address] [facility] Comment on above: Performed By: #### 2 470605 #### [facility] [address] [place] [address] Sodium [Moles/Vol] 139 mmol/L Normal 135-145 [facility] Comment on above: Performed By: #### 2 188856 #### [facility] [address] [place] [address] Urea nitrogen [Mass/Vol] 18 mg/dL Normal 5-21 [facility] Comment on above: Performed By: #### 2 448510 #### [facility] [address] [place] [address] Urea nitrogen/Creatinine [Mass ratio] 16 No Units Normal 10-20 [facility] Comment on above: Performed By: #### 2 [id number] #### [facility] [address] [place] [address] BNPon 03-02-2024 Int Ctr BNP Pass Normal [facility] Comment on above: Performed By: #### 1 [id number] #### [facility] [address] [place] [address] Natriuretic peptide B (Bld) [Mass/Vol] 454 pg/mL High 5-80 [facility] Comment on above: Performed By: #### 1 [id number] #### [facility] [address] [place] [address] Blood Gas Art, with Lytes, G satish, [place] 03-02-2024 a/A Ratio Art 45.20 % Normal >=0.80 [facility] Comment on above: Performed By: #### 4 [id number] #### [facility] [address] [place] [address] AaDO2 Art 77.0 mmHg High 5.0-15.0 [facility] Comment on above: Performed By: #### 4 [id number] #### [facility] [address] [place] [address] Allens Test Positive Normal [facility] Comment on above: Performed By: #### 4 [id number] #### [facility] [address] [place] [address] Base Excess Arterial 1.8 mmol/L Low >=2.8 [facility] Comment on above: Performed By: #### 4 [id number] #### [facility] [address] [place] [address] cCa2+ Art 4.60 mg/dL Normal 4.40-5.30 [facility] Comment on above: Performed By: #### 4 [id number] #### [facility] [address] [place] [address] cCl- Art 104.0 mmol/L Normal 101.0-111. 0 [facility] Comment on above: Performed By: #### 4 [id number] #### [facility] [address] [place] [address] cGlu Art 198 mg/dL High 55-99 [facility] Comment on above: Performed By: #### 4 [id number] #### [facility] [address] [place] [address] cK+ Art 4.4 mmol/L Normal 3.5-5.3 [facility] Comment on above: Performed By: #### 4 [id number] #### [facility] [address] [place] [address] cLac Art .7 mmol/L Normal .5-2.2 [facility] Comment on above: Performed By: #### 4 [id number] #### [facility] [address] [facility] [place] [address] utility bill complaints investigator+ Art 143.0 mmol/L Normal 135.0-145. 0 [facility] Comment on above: Performed By: #### 4 [id number] #### [facility] [address] [place] [address] Drawn by Norma Johnson Invalid Interpretation Code [facility] Comment on above: Performed By: #### 4 [id number] #### [facility] [address] [place] [address] FCOHb Art 1.4 % Low 1.5-4.9 [facility] Comment on above: Result Comment: Refe rence range Nonsmoker <1.5% Smoker <5.0% Heavy Smoker <9.0% Performed By: #### 4 [id number] #### [facility] [address] [place] [address] FIO2 BG 28 Invalid Interpretation Code [facility] Comment on above: Performed By: #### 4 [id number] #### [facility] [address] [place] [address] FMetHb Art <1.0 Normal 0.0-1.9 [facility] Comment on above: Performed By: #### 4 [id number] #### [facility] [address] [place] [address] FO2Hb Art 91.2 % Low 93.0-100.0 [facility] Comment on above: Performed By: #### 4 [id number] #### [facility] [address] [place] [address] HCO3 (Bld) [Moles/Vol] 25.9 mmol/L Normal 22.0-26.0 F [facility] Comment on above: Performed By: #### 4 [id number] #### [facility] [address] [place] [address] Hemoglobin (Bld) [Mass/Vol] 9.9 g/dL Low 12.0-17.0 [facility] Comment on above: Performed By: #### 4 [id number] #### [facility] [address] [place] [address] Oxygen saturation in Blood 92.8 % Low 95.0-100.0 [facility] Comment on above: Performed By: #### 4 [id number] #### [facility] [address] [place] [address] P CO2 Arterial 47.2 mmHg High 35.0-45.0 [facility] Comment on above: Performed By: #### 4 [id number] #### [facility] [address] [place] [address] P O2 Arterial 63.5 mmHg Low 80.0-100.0 [facility] Comment on above: Performed By: #### 4 [id number] #### [facility] [address] [place] [address] pH Arterial 7.373 Normal 7.350-7.45 0 [facility] Comment on above: Performed By: #### 4 [id number] #### [facility] [address] [place] [address] Sample Site R Radial Normal [facility] Comment on above: Performed By: #### 4 [id number] #### [facility] [address] [place] [address] Sample Type Arterial Draw Normal [facility] Comment on above: Performed By: #### 4 [id number] #### [facility] [address] [place] [address] CBC w/ Auto Diffon 4 Basophils/100 WBC (Bld) 0.9 % Normal 0.0-2.0 [facility] Comment on above: Performed By: #### 2 [id number] #### [facility] [address] [place] [address] Basophils/Leukocytes Auto (Bld) [Pure # fraction] 0.1 E9/L Normal 0.0-0.2 [facility] Comment on above: Performed By: #### 2 [id number] #### [facility] [address] [place] [address] Eosinophils (Bld) [#/Vol] 0.2 E9/L Normal 0.0-0.5 [facility] Comment on above: Performed By: #### 2 [id number] #### [facility] [address] [place] [address] Eosinophils/100 WBC (Bld) 1.7 % Normal 0.0-8.0 [facility] Comment on above: Performed By: #### 2 [id number] #### [facility] [address] [place] [address] Erythrocyte distribution width (RBC) [Ratio] 15.6 % High 10.9-14.2 [facility] Comment on above: Performed By: #### 2 [id number] #### [facility] [address] [place] [address] Hematocrit (Bld) [Volume fraction] 30.2 % Low 37.7-49.0 [facility] Comment on above: Performed By: #### 2 [id number] #### [facility] [address] [place] [address] Hemoglobin (Bld) [Mass/Vol] 10.2 g/dL Low 13.5-17.5 [facility] Comment on above: Performed By: #### 2 [id number] #### [facility] [address] [place] [address] Lymphocytes (Bld) [#/Vol] 1.7 E9/L Normal 1.0-4.0 [facility] Comment on above: Performed By: #### 2 [id number] #### [facility] [address] [place] [address] Lymphocytes/100 WBC (Bld) 17.8 % Normal 14.0-50.0 [facility] Comment on above: Performed By: #### 2 [id number] #### [facility] [address] [place] [address] MCH (RBC) [Entitic mass] 29.9 pg Normal 27.0-34.0 [facility] Comment on above: Performed By: #### 2 [id number] #### [facility] [address] [place] [address] MCHC (RBC) [Mass/Vol] 33.9 g/dL Normal 31.4-36.[address] [facility] Comment on above: Performed By: #### 2 [id number] #### [facility] [address] [place] [address] MCV (RBC) [Entitic vol] 88.1 fL Normal 80.0-100.0 [facility] Comment on above: Performed By: #### 2 [id number] #### [facility] [address] [place] [address] Monocytes (Bld) [#/Vol] 0.7 E9/L Normal 0.2-1.0 [facility] Comment on above: Performed By: #### 2 [id number] #### [facility] [address] [place] [address] Neutrophils (Bld) [#/Vol] 7.0 E9/L Normal 2.0-7.5 [facility] Comment on above: Performed By: #### 2 [id number] #### [facility] [address] [place] [address] Neutrophils/100 WBC (Bld) 72.7 % Normal 36.0-75.0 [facility] Comment on above: Performed By: #### 2 [id number] #### [facility] [address] [place] [address] Platelet 319.0 E9/L Normal 150.0-500. 0 [facility] Comment on above: Performed By: #### 2 [id number] #### [facility] [address] [place] [address] Platelet mean volume (Bld) [Entitic vol] 6.3 fL Low 6.4-10.8 [facility] Comment on above: Performed By: #### 2 [id number] #### [facility] [address] [place] [address] RBC (Bld) [#/Vol] 3.4 E12/L Low 4.3-5.9 [facility] Comment on above: Performed By: #### 2 [id number] #### [facility] [address] [place] [address] WBC corrected for nucl RBC Auto (Bld) [#/Vol] 9.6 E9/L Normal 4.0-11.0 [facility] Comment on above: Performed By: #### 2 [id number] #### [facility] [address] [place] [address] CHEMISTRYOrdered By: SYSTEM SYSTEM on 03-02-2024 Troponin [...] High Sensitivity Troponin I Instructions For Use, [employer], January 2018) Anion gap [Moles/Vol] 13 mmol/L [...] Sensitivity Troponin I Instructions For Use, [employer] [place], January 2018) Urea nitrogen [Mass/Vol] 18 mg/dL Normal 5 - 21 mg/dL [facility] Urea nitrogen/Creatinine [Mass ratio] 16 mg/mg Normal 10 - 20 [facility] CHEMISTRYOrdered By: Sohan Sosa on 03-02-2024 Natriuretic peptide B (Bld) [Mass/Vol] 454 pg/mL High 5 - 80 pg/mL [facility] HemeManSS COAGULATIONOrdered By: Chioma Sosa on 03-02-2024 aPTT Coag (PPP) [Time] 46.0 s High 25.1 - 36.5 second(s) [facility] Auto Coag Comment on above: Interpretive Data: [...] the same coagulation reagent and instrumentation as [facility]. Currently there are no coagulation studies available worldwide for children to 14 days, and no normal ranges. Heparin therapeutic range (represented by Anti-Factor Xa activity of 0.2 - 0.4 U/mL) corresponds to PTT of 56.6 - 109.0 sec. INR Coag (PPP) [Relative time] 2.23 {INR} Invalid Interpretation Code [facility] Auto Coag Comment on above: Interpretive Data: I NR results are specifically intended to assess patients stabilized on long-term Anticoagulation therapy suggested INR s Less Intensive Anticoagulation 2.0 3.0 Conventional Range 3.0 4.5 PT Coag (PPP) [Time] 25.2 s High 9.4 - 1 2.5 second(s) [facility] Auto Coag Comment on above: Interpretive Data: [...] the same coagulation reagent and instrumentation as [facility]. Currently there are no coagulation studies available worldwide for children to 14 days, and no normal ranges. Capillary Glucose POCon 02-03 Glucose [Mass/Vol] 350 mg/dL High 55-99 [facility] Comment on above: Result Comment: Kennedy espitia RN/ Performed By: #### 2 [id number] #### [facility] [address] [place], [place] [id number] ED Clinical Summaryon 2023 ED Clinical Summary ED Clinical Summary [address] [address] ED Clinical Summary Person Information Name: JOSÉ LUIS FAULKNER [facility] Age: 73 Years : 1950 Sex: Male Language: Hungarian PCP: Mona Baker MD Marital Status: Phone: [phone] Visit Id: Visit Reason: Shortness of breath; SOB Speciality: Acuity: 1 Enc Type: Inpatient Med Service: Medical Arrival: 03/02/2024 08:07:40 Discharge: LOS: 000 04:14 Checkin: 03/02/2024 08:07:40 Checkout: 03/02/2024 12:21:02 Dispo Type: Admitted as IP to this [facility] EVENTS: Event Name Event Status Request [...] 03/02/2024 12:21:02 03/02/2024 12:21:02 03/02/2024 12:21:02 ADDRESS: [address] [place] [id number] PHYS DOC NOTES: MEDICAL INFORMATION: Prescriptions Given: [...] day. ins (more content not included)... Normal [facility] ED Note-Physicianon 03-02-20 ED Note-Physician ED Note-Physician Basic Information Time Seen: Annemarie Tony M.D. 03/02/2024 08:10 Chief Complaint Patient presents with several days of SOB with hx of COPD. pt recently taken off O2 about 3 weeks ago. Solumedrol [facility] History of Present Illness The patient [...] and Complexity of Problems Differential Diagnosis: [] [facility] Data External documents reviewed: [] My [...] B-Type Natriuret (more content not included)... Normal [facility] Comment on above: Result Comment: Elec tronically Signed By: Cecily Manzano, Annemarie Wade\.br\Date and Time Signed: 03/02/24 12:11 EDT ED Patient Education Noteon 03-02-2024 ED Patient Education Note ED Patient Education Note Normal [facility] ED Patient Summaryon ED Patient Summary ED Patient Summary [place] [address] Patient Discharge Instructions Person Information Name: JOSÉ [...] Information Primary Provider: Annemarie Tony M.D. Advanced Physical Therapy Instructor:None The exam and treatment you received in the Emergency Department were for an urgent problem and are not intended as complete care. It is important that you follow up with a doctor, nurse practitioner, or physician?s public services assistant for ongoing care. If your symptoms [...] opioids can be used to help relieve kdlbfhkq-at-ccdsvl pain and are often prescribed following a [...] to learn (more content not included)... Normal [facility] FT Blood GasesOrdered By: Bill Lozano on 03-02-2024 a/A Ratio Art 45.20 % Normal >=0.80% [facility] Resp Auto SS AaDO2 Art 77.0 mm[Hg] High 5.0 - 15.0 mmHg FT Resp Auto SS Allens Test Positive (03/02/24 8:25 AM) Normal [facility] Resp Auto SS Base Excess Arterial 1.8 mmol/L Low >=2.8mm ol/ L [facility] Resp Auto SS cCa2+ Art 4.60 mg/dL Normal 4.40 - 5.30 mg/dL [facility] Resp Auto SS cCl- Art 104.0 mmol/L Normal 101.0 - 111.0 mmol/L [facility] Resp Auto SS cGlu Art 198 mg/dL High 55 - 99 mg/dL [facility] Resp Auto SS cK+ Art 4.4 mmol/L Normal 3.5 - 5.3 mmol/L [facility] Resp Auto SS cLac Art 0.7 mmol/L Normal 0.5 - 2.2 mmol/L [facility] Resp Auto SS utility bill complaints investigator+ Art 143.0 mmol/L Normal 135.0 - 145.0 mmol/L [facility] Resp Auto SS Drawn by Norma Johnson Invalid Interpretation Code [facility] Resp Auto SS FCOHb Art 1.4 % Low 1.5 - 4.9 % [facility] Resp Auto SS Comment on above: Interpretive Data: R eference range Nonsmoker <1.5% Smoker <5.0% Heavy Smoker <9.0% FIO2 BG 28 1 Invalid Interpretation Code [facility] Resp Auto SS FMetHb Art % Normal 0.0 - 1.9 % [facility] Resp Auto SS FO2Hb Art 91.2 % Low 93.0 - 100.0 % [facility] Resp Auto SS HCO3 (Bld) [Moles/Vol] 25.9 mmol/L Normal 22.0 - 26.0 mmol/L [facility] Resp Auto SS Hemoglobin (Bld) [Mass/Vol] 9.9 g/dL Low 12.0 - 17.0 gm/dL [facility] Resp Auto SS P CO2 Arterial 47.2 mm[Hg] High 35.0 - 45.0 mmHg [facility] Resp Auto SS P O2 Arterial 63.5 mm[Hg] Low 80.0 - 100.0 mmHg [facility] Resp Auto SS pH (Bld) 7.373 [pH] Normal 7.350 - 7.450 [facility] Resp Auto SS Sample Site R Radial (03/02/24 8:25 AM) Normal [facility] Resp Auto SS Sample Type Arterial Draw (03/02/24 8:25 AM) Normal [facility] Resp Auto SS HEMATOLOGYOrdered By: SYSTEM SYSTEM [...] Lactic Acid Lvl 1.1 mmol/L Normal 0.5-2.2 [facility] Comment on above: Performed By: #### 2 [id number] #### [facility] [address] [place] [address] MICRO OTHER TESTSOrdered By: Jyothi Naranjo on 03-02-2024 Rapid COV Int NEG Ctl Pass (03/02/24 8:32 AM) Normal [facility] Man Sero Rapid COV Int POS Ctl Pass (03/02/24 8:32 AM) Normal [facility] Man Sero SARS-CoV+SARS-CoV-2 (COVID-19) Ag IA.rapid Ql (Resp) Not Detected 15 (03/02/24 8:32 AM) Normal Not Detected [facility] Man Sero Comment on above: Interpretive Data: T he BD Veritor System for Rapid Detection of SARS-CoV-2 [...] or revoked sooner. No Panel InformationOrdered By: ANGPROCESSSERVER MICROBIOLOGY on 03-02-2024 Blood Culture Charcoal No growth at 2 da ys. Final to follow at 7 days. [facility] Blood Culture Charcoal No growth at 2 da ys. Final to follow at 7 days. [facility] PT & PTTon 03-02-2024 aPTT Coag (PPP) [Time] 46.0 second(s) High 25.1-36.5 [facility] Comment on above: Result Comment: Para meter 15 days - 4 weeks 1 - 5 months 6 - 11 months 1 - 5 years 6 - 10 years 11 - 17 years PTT Mean: 35.4 (27.6-45.6) Mean: 33.5 (24.8-40.7) Mean: 32.4 (25.1-40.7) Mean: 31.6 (24.0-39.2) Mean: 31.6 (26.9-38.7) Mean: 31.0 (24.6-38.4) Pediatric Reference ranges were obtained from a study by obb Cortés al. prepared from 1437 samples obtained at 7 different centers using the same coagulation reagent and instrumentation as [facility]. Currently there are no coagulation studies available worldwide for children to 14 days, and no normal ranges. Heparin therapeutic range (represented by Anti-Factor Xa activity of 0.2 - 0.4 U/mL) corresponds to PTT of 56.6 - 109.0 sec. Performed By: #### 1 [id number] #### [facility] [address] [place] [address] INR Coag (PPP) [Relative time] 2.23 {INR} Invalid Interpretation Code [facility] Comment on above: Result Comment: INR results are specifically intended to assess patients stabilized on long-term Anticoagulation therapy suggested INR?s ?Less Intensive Anticoagulation? 2.0 ? 3.0 Conventional Range 3.0 ? 4.5 Performed By: #### 1 [id number] #### [facility] [address] [place] [address] PT Coag (PPP) [Time] 25.2 second(s) High 9.4-12.5 [facility] Comment on above: Result Comment: 15 [...] the same coagulation reagent and instrumentation as [facility]. Currently there are no coagulation studies available worldwide for children to 14 days, and no normal ranges. Performed By: #### 1 [id number] #### [facility] [address] [place] [address] Pre-Arrival Noteon 4 Pre-Arrival Note Pre-Arrival Note Pre-Arrival Summary Name: , HECTOR Current Date: 03/02/2024 08:19:59 EDT Gender: Date of : Age: 73 Pre-Arrival Type: EMS ETA: 03/02/2024 08:27:00 EDT Primary Care Physician: Presenting Problem: SOB Pre-Arrival User: Eron Bailey RN Referring Source: Location: [place] Completion Date/Time: 03/02/2024 07:57:00 [facility] Emergency Department Pre-Hospital Report Form Vital Signs: Pre-Hospital Report: Treatment in Route: Response to Treatment: Misc. Issues: Normal [facility] Rapid COVID Antigen ([facility])on 03-02-2024 Rapid COV Int NEG Ctl Pass Normal [facility] Comment on above: Performed By: #### 2 [id number] #### [facility] [address] [place] [address] Rapid COV Int POS Ctl Pass Normal [facility] Comment on above: Performed By: #### 2 [id number] #### [facility] [address] [place] [address] SARS-CoV+SARS-CoV-2 (COVID-19) Ag IA.rapid Ql (Resp) Not detected Normal Not Detected [facility] Comment on above: Result Comment: The [employer]? System for Rapid Detection of SARS-CoV-2 is [...] or revoked sooner. Performed By: #### 2 [id number] #### [facility] [address] [place] [address] Troponin 0 Hr.on 03-02-2024 Troponin HS 26.00 pg/mL Normal 15.90-38.4 0 [facility] Comment on above: Result Comment: The 95% CI (Confidence Interval) PPV (Positive Predictive Value) for myocardial infarction in females is 38 pg/mL, in males 51 pg/mL. The results should be used in conjunction with clinical conditions of myocardial infarction. (Access High Sensitivity Troponin I Instructions For Use, [employer], January 2018) Performed By: #### 1 [id number] #### [facility] [address] [place] [address] Troponin 1 Hr.on 03-02-2024 Troponin HS 26.40 pg/mL Normal 15.90-38.4 0 [facility] Comment on above: Order Comment: due @ 0919 Result Comment: The 95% CI (Confidence Interval) PPV (Positive Predictive Value) for myocardial infarction in females is 38 pg/mL, in males 51 pg/mL. The results should be used in conjunction with clinical conditions of myocardial infarction. (Access High Sensitivity Troponin I Instructions For Use, [employer], January 2018) Performed By: #### 1 [id number] #### [facility] [address] [place] [address] UA with Cult Rflxon 03-02-20 24 Bilirubin Ql (U) Negative Normal Negative [facility] Comment on above: Performed By: #### 4 [id number] #### [facility] [address] [place] [address] Clarity (U) Clear Normal Clear [facility] Comment on above: Performed By: #### 4 [id number] #### [facility] [address] [place] [address] Color (U) Light-Yellow Normal Yellow [facility] Comment on above: Result Comment: Micr oscopic readings are only performed on those samples that meet specific criteria set forth by [facility]. Performed By: #### 4 [id number] #### [facility] [address] [place] [address] Glucose Ql (U) Trace Abnormal Negative [facility] Comment on above: Performed By: #### 4 [id number] #### [facility] [address] [place] [address] Hemoglobin Auto test strip (U) [Mass/Vol] Negative Normal Negative [facility] Comment on above: Performed By: #### 4 [id number] #### [facility] [address] [place] [address] Ketones Auto test strip Ql (U) Negative Normal Negative [facility] Comment on above: Performed By: #### 4 [id number] #### [facility] [address] [place] [address] Leukocyte esterase Auto test strip Ql (U) Negative Normal Negative [facility] Comment on above: Performed By: #### 4 [id number] #### [facility] [address] [place] [address] Mucus Auto Ql (U) Trace Normal Negative [facility] Comment on above: Performed By: #### 4 [id number] #### [facility] [address] [place] [address] Nitrite Auto test strip Ql (U) Negative Normal Negative [facility] Comment on above: Performed By: #### 4 [id number] #### [facility] [address] [place] [address] pH (U) 5.5 [pH] Invalid Interpretation Code 5.0-9.0 [facility] Comment on above: Performed By: #### 4 [id number] #### [facility] [address] [place] [address] Protein Ql (U) 1+ mg/dL Abnormal Negative [facility] Comment on above: Performed By: #### 4 [id number] #### [facility] [address] [place] [address] RBC Ql (U) 0-3 Normal 0-3 [facility] Comment on above: Performed By: #### 4 [id number] #### [facility] [address] [place] [address] Specific gravity (U) [Rel density] 1.015 Invalid Interpretation Code 1.005-1.03 0 [facility] Comment on above: Performed By: #### 4 [id number] #### [facility] [address] [place] [address] Urobilinogen (U) [Mass/Vol] Negative Normal Negative [facility] Comment on above: Performed By: #### 4 [id number] #### [facility] [address] [place] [address] WBC Auto (Urine sed) [#/Area] 0-5 Normal 0-5 [facility] Comment on above: Performed By: #### 4 [id number] #### [facility] [address] [place] [address] Type of Urine collection method Clean Catch Normal [facility] Comment on above: Performed By: #### 4 [id number] #### [facility] [address] [place] [address] URINALYSISOrdered By: SYSTEM SYSTEM on 03-02-2024 Bilirubin Ql (U) Negative Normal Negativemg /dL FT UA Auto SS Clarity (U) Clear (03/02/24 9:24 AM) Normal Clear [facility] UA Auto SS Color (U) Light-Yellow 1 (03/02/24 9:24 AM) Normal Yellow [facility] UA Auto SS Comment on above: Interpretive Data: M icroscopic readings are only performed on those samples that meet specific criteria set forth by [facility]. Glucose Ql (U) Trace mg/dL Invalid Interpretation Code Negativemg /dL FT UA Auto SS Hemoglobin Auto test strip (U) [Mass/Vol] Negative Normal Negativemg /dL [facility] UA Auto SS Ketones Auto test strip Ql (U) Negative Normal Negativemg /dL [facility] UA Auto SS Leukocyte esterase Auto test strip Ql (U) Negative Normal NegativeLe u/uL [facility] UA Auto SS Mucus Auto Ql (U) Trace graded/LPF Normal Negati vegr aded/LPF [facility] UA Auto SS Nitrite Auto test strip Ql (U) Negative Normal Negativemg /dL [facility] UA Auto SS pH (U) 5.5 *NA* (03/02/24 9:24 AM) Invalid Interpretation Code 5.0 - 9.0 [facility] UA Auto SS Protein Ql (U) 1+ mg/dL Invalid Interpretation Code Negativemg /dL [facility] UA Auto SS RBC Ql (U) 0-3 graded/HPF Normal 0-3graded/ HPF [facility] UA Auto SS Specific gravity (U) [Rel density] 1.015 *NA* (03/02/24 9:24 AM) Invalid Interpretation Code 1.005 - 1.030 [facility] UA Auto SS Urobilinogen (U) [Mass/Vol] Negative Normal Negativemg /dL [facility] UA Auto SS WBC Auto (Urine sed) [#/Area] 0-5 graded/HPF Normal 0-5graded/ HPF [facility] UA Auto SS URINALYSISOrdered By: Eron Bailey on 03-02-2024 UA Spec Desc Clean Catch (03/02/24 9:24 AM) Normal [facility] UA Auto SS XR Chest Single Viewon [...] mGy = . DAP = . Normal [facility] eGFRon 03-02-2024 eGFR 70 mL/min/1.73 m2 Normal >=59 [facility] Comment on above: Performed By: #### 1 [id number] #### [facility] [address] [place] [address] POCT PT/INRon 02-22-2024 POCT INR 1.9 High .7-1.2 [facility] Comment on above: Performed By: #### 2 [id number] #### [facility] [address] [place] [address] POCT PT 21.1 second(s) High 8.0-15.0 [facility] Comment on above: Performed By: #### 2 [id number] #### [facility] [address] [place] [address] POCT INR 1.0 Normal .7-1.2 [facility] Comment on above: Performed By: #### 2 [id number] #### [facility] [address] [place] [address] POCT PT 12.1 second(s) Normal 8.0-15.0 [facility] Comment on above: Performed By: #### 2 [id number] #### [facility] [address] [place] [address] [employer] Fish and Urine Cyt o ( Labs)on 02-19-2024 UVFISH & UC Diagnosis Info Invalid Interpretation Code [facility] Comment on above: Result Comment: A:Ur [...] on: 02/19/2024 17:39:17 Performed By: #### 1 [id number] #### [facility] [address] [place] [address] Pulmonology Office/Clinic No joi 02-15-2024 Pulmonology Office/Clinic [...] of bladder cancer Hyperlipidemia, unspecified Hypertension Hypothyroid 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 Normal [facility] NM PET w/ CT Scan Skull [...] Following the administration of 14.02 millicuries of Y92-Lbkrdlqmzmakripjqv (FDG), scans were obtained from the base of the skull to the mid thigh on a dedicated PET CT unit. Using the glassware engraver\X2019\s standard software, data were reconstructed using filtered [...] 13.5 Imaging Post Administration (mins): 50 Normal [facility] POCT PT/INRon 02-08-2024 POCT INR 1.7 High .7-1.2 [facility] Comment on above: Performed By: #### 2 [id number] #### [facility] [address] [place] [address] POCT PT 18.6 second(s) High 8.0-15.0 [facility] Comment on above: Performed By: #### 2 [id number] #### [facility] [address] [place] [address] Main OR Intraoperative Recor don 02-05-2024 Main OR Intraoperative Record Main OR Intraoperative Record IntraOp Document Type [facility] Summary Primary Physician: Andi WARE MD Finalized Date/Time: 02/05/24 11:34:06 Pt. Name: MELY ARANZAJOSÉ LUIS/Sex: 1950 Male Med Rec #: [id number] Physician: Andi WARE MD Financial #: [id number] Pt. Type: O Room/Bed: / Admit/Disch: 02/05/24 10:25:59 - Institution: Case Times [facility] Entry 1 Patient Times In Room 02/05/24 11:26:00 Out Room 02/05/24 11:39:00 Procedure Times Start 02/05/24 11:28:00 Stop 02/05/24 11:32:00 Anesthesia Times Last Modified By: Jana MCCLELLAND, Linda Leahy 02/05/24 11:33:46 Case Attendance [facility] Entry 1 Entry 2 Entry 3 Case Attendee MIGUELINA BROUSSARD, Andi Bates RN, Shahana Tuttle Role Performed Surgeon - Primary Shirt Marker - Primary Scrub - Primary Time In 02/05/24 11:26:00 02/05/24 11:26:00 02/05/24 11:26:00 Time Out 02/05/24 11:39:00 02/05/24 11:39:00 02/05/24 11:39:00 Procedure CYSTOSCOPY LOCAL(.) CYSTOSCOPY LOCAL(.) CYSTOSCOPY LOCAL(.) Comments Last Modified By: Jana MCCLELLAND, Linda Bates RN, Lidna Bates RN, Linda Leahy 02/05/24 Marina Leahy [...] Outcomes Met? Yes CANCER Last Modified By: Linda Bates RN 02/05/24 11:25:47 Post-Care Text: The patient is [...] Position Verified Availability Equipment, Medication Time Out MIGUELINA BROUSSARD, Andi Caputo, Verified (If Participants Linda Bates RN Applicable) [...] By: Linda Bates RN 02/05/24 11:34 Normal [facility] Main OR Preoperative Recordo n 02-05-2024 Main OR Preoperative Record Main OR Preoperative Record Holding Area Document Type [facility] Summary Primary Physician: Andi WARE MD Finalized Date/Time: 02/05/24 11:27:03 Pt. Name: JOSÉ LUIS FAULKNER/Sex: 1950 Male Med Rec #: [id number] Physician: Andi WARE MD Financial #: [id number] Pt. Type: O Room/Bed: / Admit/Disch: 02/05/24 [...] Limitations: stand by assist Skin Integrity Intact, [place], Warm, & Dry Vitals - EU Blood Pressure 155/70 Pulse 60 bpm Respirations 18 br/min SPO2 Additional MIKE MCCLELLAND Reviewed Yes Specimens Collected Last Modified By: Linda Bates RN 02/05/24 11:27:02 Finalized By: Linda Bates RN Document Signatures Signed By: Darlene Barroso LPN 02/05/24 10:46 Linda Bates RN 02/05/24 11:27 Normal [facility] Operative Reporton 09-03-202 4 Operative Report Operative Report Patient: JOSÉ LUIS [...] with antibiotic coverage, Follow up arranged. Normal [facility] Comment on above: Result Comment: Elec tronically Signed By: Andi WARE MD\.br\Date and Time Signed: 02/05/24 11:36 EDT Reminderson 02-05-2024 Reminders Reminders From: Radha Henley To: EU - Recalls Miguelina; Sent: 12/11/2023 11:16:08 EDT Show up: 06/04/2024 11:16:00 EST Subject: Cysto/FISH/cytol Due Date/Time: 06/23/2024 11:16:00 EST Reminder/Recall Patient is due in August 2024 for 6 month cysto/fish/cytol (bt ck) Pt due in December 2024 for 10 month cysto/fish/cytol Normal [facility] Reminders Reminders From: Radha Henley To: EU - Recalls Ware; Sent: 02/05/2024 15:57:14 EDT Show up: 10/02/2024 15:57:00 EDT Subject: Cysto/fish/cytol Due Date/Time: 10/27/2024 15:57:00 EDT Reminder/Recall Patient needs 10 month Cysto/FISH/cytol (bt ck) December 2024 [facility] Fish and Urine Cyt o ([facility])on 02-05-2024 [facility] Method of Extraction Catheterized [facility] Comment on above: Performed By: #### 1 [id number] #### [facility] [address] [place] [address] [facility] Number of Jars 1 Invalid Interpretation Code [facility] Comment on above: Performed By: #### 1 [id number] #### [facility] [address] [place] [address] [facility] Specimen Urine [facility] Comment on above: Performed By: #### 1 [id number] #### [facility] [address] [place] [address] [facility] Type of Service Technical Only [facility] Comment on above: Performed By: #### 1 [id number] #### [facility] [address] [place] [address] Pulmonology Office/Clinic No joi 01-23-2024 Pulmonology Office/Clinic [...] Caterina BROUSSARD, Nicolás Chavez, PUL, AYAH [address] [facility] ([facility]) [place] [address]- Additional Instructions: after his testing is completed [...] Hypertension Hypothyroid (more content not included)... [facility] POCT PT/INRon 01-11-2024 POCT INR 2.3 High .7-1.2 [facility] Comment on above: Performed By: #### 2 [id number] #### [facility] [address] [place] [address] POCT PT 23.6 second(s) High 8.0-15.0 [facility] Comment on above: Performed By: #### 2 [id number] #### [facility] [address] [place] [address] POCT PT/INRon 12-28-2023 POCT INR 2.1 High .7-1.2 [facility] Comment on above: Performed By: #### 2 [id number] #### [facility] [address] [place] [address] POCT PT 22.0 second(s) High 8.0-15.0 [facility] Comment on above: Performed By: #### 2 [id number] #### [facility] [address] [place] [address] CT Chest w/o Contraston 12-03 CT Chest [...] Young DO Transcribed by: JUAN Technologist: Normal [facility] POCT PT/INRon 12-21-2023 POCT INR 2.5 High .7-1.2 [facility] Comment on above: Performed By: #### 2 [id number] #### [facility] [address] [facility] [place] [address] POCT PT 25.8 second(s) High 8.0-15.0 [facility] Comment on above: Performed By: #### 2 [id number] #### [facility] [address] [facility] [place] [address] POCT PT/INRon 12-14-2023 POCT INR 4.0 High .7-1.2 [facility] Comment on above: Performed By: #### 2 [id number] #### [facility] [address] [facility] [place] [address] POCT PT 39.3 second(s) High 8.0-15.0 [facility] Comment on above: Performed By: #### 2 [id number] #### [facility] [address] [facility] [place] [address] Reminderson 12-11-2023 Reminders Reminders From: Radha Henley To: EU - Recalls Ware; Sent: 09/25/2023 08:35:57 EDT Show up: 11/03/2023 08:35:00 EDT Subject: Cysto/FISH/cytol Due Date/Time: 11/26/2023 08:35:00 EDT Reminder/Recall Patient is due in January for 6 month Cysto/FISH/cytol (bt ck) Spoke to pt and , pt sched for 02/05/[address] [facility]. He had recent foot surgery.LG [facility] Office/Cl inic Noteon [...] Caterina BROUSSARD, Nicolás Chavez, PUL, AYAH [address] [facility] [place] [address]- Additional Instructions: after his testing is completed [...] of bladder cancer Hyperlipidemia, unspecified Hypertension Hypothyroid assisted (current) (more content not included)... [facility] Comment on above: Result Comment: Elec tronically Signed By: Caterina BROUSSARD, Nicolás Chavez\.br\Date and Time Signed: 12/05/23 10:47 EDT POCT PT/INRon 12-04-2023 POCT INR 2.4 High .7-1.2 [facility] Comment on above: Performed By: #### 2 [id number] #### [facility] [address] [place] [address] POCT PT 25.0 second(s) High 8.0-15.0 [facility] Comment on above: Performed By: #### 2 [id number] #### [facility] [address] [place] [address] Coding Summary.on 11-26-2023 Coding Summary. ARSFTjaa32ZNd3gMs+PG hlYWQ+P M4VWCUsD64deHXkcP4aD8CAKPxF GksiVKVRJXmPKsNvkoSrYY8igYY jZXJu IC8+IG0uWIAgStsahCJsz4T4oRR 0V17cqa3nNYsgaWP1IGHdHlUpvq jsv6rokTr0AKptWsvvWwAt AZLwhZ79POM4jM01Mk06tXDekIB bf3zxoLe9FjCfENDzAOT2dNcfMY nai9FyDSXrB67vaICks1X3 EVHtkWigdHZkZtRjsLA0cG5eYEj dfwiie2hpuqmgOlf4tm26cEQzn4 R8iYQ5M4EpszA6GYMwuBQd ThcbaOPBwU8mnodyr3ewxjuiVlH hSBBcUQh2OCw0WISmdSjjQiRzHV 47MEL6VRBvlnJhR5UaKZMy oDukTiM7g3A5Jd8AE4MSEdeoM9C NTUFSWTwvdGQ+TF44ls51C0HySk seKhj2FAQsWEP1nFK6iG0w TVQiDDuxe6R0rRO4O0TxlhPnom3 vj9gsPKJqQKilP89jrGIpo3T6GO UjbUF9ITUumXsfTnDlwU96 Oyc+ZEOtmMqkw4IyFgiwf8tsd7o hqKm0DhaqBLDtwbCcoNuxKTZ1h5 GpRs2uFOOzlSK2oWI0xH4l AfLqZgB0RLqzU177MgZqwLLsBbm gU82rM9OhwMA+ATKwZiu0IUPcgS fyGI1qD1SeYIOjmuqzuYCj nZixPQ7rBEDjldtsUYSazL9mRSF kM3u0EsXsLzV0RAoiF4QoEWAcns ipZw30pN9vLkOzNxS6MBst U3ZxgwV3ZNLkhPBfMXdlRJU5V25 gd2Y3SUEwVLIsLYM7zUL7jC0joA lnbjogbGVmdDsgdmVydGlj WJqvZWrfJ149NUBsfNszDaJnQBd uZyBEYXRlOiAgMDYvMjQvMjAyND wvdGQ+CBCeVLJ8dAutQQQd bEUwSDcjRu6opVhgcEccAU8uKKT wdxxrIDZjmZ5pWVOblUJsuLsfTJ 1mSFJnolwid412XwJgRWK9 UWBpgIOiK2SenQ3uXhCmPMBbXDE lU1EhsJMhWNosN800VWawUgO6MY FqtzIrN1LsJXIdwSdwAvV8 e0E5Zz2Kj8RxujhxW4CqeALsZqH hUeyhYSn0F0RzMmfnoRO+PC90YW WsVC61XQm0LTU6bTvrNAsl HNNqM1RfeP8gUvRuTPZeWEPpRbu +PHRhYmxlIHdpZHRoPScxMDAlJy OadLryFT7dAr8dXHYmDEAt wGmkbXThZzGhw9hiDKZhMEdvIE7 xeItoR7HluIK7CVRdi4n2Yt53O0 3sY6FpjYD+WKGafSI5fAY0 fQ7aVhTmGsQ4FRpsX433XoSidFN iYwpvl1kap0cnlLj3KnX0GPHjyk TwcSjvHFJ1w2LhOk85A94d IHdpZHRoPSIxNSUiIHZhbGlnbj0 nkH9gIy7+NMRkaLJ8tIU1tA8qKb RvZpL6HTadD064UxUorWZm Fllyr0ffb1xrzWf1BqBxOOCbhbX aeTtyUCA3h2MjTi30G6WmmRnrv6 IqNhv7fo40xDUcw6H3yNY6 R1QtQBEhzpoogTWmnJbqPN9mKNL sqfjqDPAwrH3mFZAcC0x3YyFeNb Z4XHxoM0XmhoI9UQLrtKZn IBYgoAEQxS7cwdyru0iyzrpnXdI oMSAoOGa2PTq8XXTqgMzfTfShPQ X4VpV9FBQ6kUKiaE3snGnu ojqaqS0bXqc+HND3uZXymDBRQA0 lOjwvdGQ+IEXaXEB6dYwqUWnkRE RcyJ9qUCMbQ7g3VkUdCmQ5 OVxqY2OjrkE2UODseXDzPACufQF NdD7ctidfu9pwtitoGhIeZJEnGZ m0EPh3VLGhdEloYsNeVIS0 DfY8ARE1bKEzbP0emOjymzknnW3 wOyc+LevtjNrqTME7JLo8K7OqKy c4NFZecTgfIT6jkNKvQIhs Rs6cdEvzsVafQU9nMZNegnwtd69 8EpZxu9blABGphOVnSNtkHDW6Z3 3mw6U4HWZjWUVgPLJ9iMO7 gY0bqCiiupvnmUEsdFydmzSveSx dMTiePKzwP776UVYicHttLhHvVO x6Y5XcIqs3RDEulRrtOC2c jQZhJRkjXm9zjByhhKnjWN4yNXY lgbmpm640HnZpo8iaUQUssXXjOW snFOF2R32wk7O8SMYkMVRr EKC8wXP9aE8vxHgooxswgDTbkCb ebdTjiWhpLYduKMfwN786ORVuoV ouNwBydZx2K2OdJlj8XMRl jIarDH5gvRTvPOcnFu6qhCdjhTh vPP0wXBOcqwxxs694MtSmx4dhCQ TzaPThCGkhHOA4Y37xi6F6 MIIkMOPcCSA6iOD0iF6nyUaqqln gbGVmdDsgdmVydGljYWwtYWxpZ2 46IHRvcDsnPlBhdGllbnQg UKyvONb3G0CzPplatZN+ET58ZDB jXT05vKJhoSDvh1adcRi3DyZgKK BpAFK2lOocWWjxd6ZhRDXx T94abHDis9W5KMNyhPlsfSPpPpX yzAM7vU1qRNkcnndra5qiiatvPh smz2smtp78gY28B55jKCfe TBLjPOSlPTPoZJXosDmwrt6gnV0 wIi8+RIFexOE1cEC5eK0zBJThNv G4RNzxU164NyNovDBbElro m5jaj8iycDq9SdP2CYWpohFuvCl xHWV8q1SyGb06M58vPXvmUKBeCH YtRXRzATGatVnquh5myR1d Ii8+NVWokWH6ePX4oQ2nOqEzQrP 0YKazB888XpCvyHUbAshkA15aW5 JvdXA+OOEtAol7EWNoaUkv YC3bqOTgEVgyHq9tLKY2MpObRdO yRIkyR3KwGHPsytsggazauPD8QC RfNJQyjB29Zh6whVgtMVPf wLELuD0bmoyqj2fjexkvXiXvABA tLNv9CIh0VQQqoEdiVgKhGQG2Xp X1LTM6fQVipR6ahEpxjczr xT7sE1IaHEFyqmbnAk24dQ7jTiQ aRtO4IZnoMcg+VkFOIEdJRVNFTi ftPxaRX5vJIZVvJHxoxWO+ IDSwVBH8dAayHDxhZVYfeD4eOON qU9m3SrLvCyV0ZQgtM2AkTPHbjn boCm97yZ4lYnNjAzT0QVbf Y7SepaZ0VRBuyKTmKZryUXI6T29 pz6C4WBFuSFZzGRA5nMV0bU8bhY lnbjogbGVmdDsgdmVydGlj VPyiJKluD225XUTjcKvaQaN2PbR 9OkV1YOf5J9RqJlu6ATHikIvbQO 8ynVXoDDplUm4roYpekUsr PM6rDRNohoinLENfhW5iPMWmcKK skRosNX2uSDTvbxjdt450CmJmOQ W8OOCnvPMsM1TntN4yRbFv TZDaBLEiF3OaiPRiZIbnG455VIp lUnR6ABEbbpTvK2YoLZZgjTdzLk R2i9T2No46HTIYPSSahmfd dGQ+RSDxPDN2tAfvIPgxRQLmcR1 zJGRyB2g4CvPlEhF7LEuoN2MuLQ GbeijvMy75xI7jHdZxIdL9 CMgjZ1GhpwD5UDRlqLYnGRpvLAA 1P38iy3Q3DWRkDVMqQFN6aQU2pM 1hbGlnbjogbGVmdDsgdmVy pSjmETugYCycO829JCFbmIpnAj6 jmGP7X8JyMbn4JMCznVtqGC4hkS NhSXmaHr9hgYotrNejRU4a ZUGvsvnrILKghD1jVZBpxEFkdFn rMW7yXKImrynhr737EoNgGUK3RI QjmDLpO4AilC8eBzPsODAv BLVuK2PfzAKtFHdtF363QAvoAdT 0AEGuxaCeY2ZfEXQtgLueZoA1o9 L9Rk4MnYNtEIZxWP60FR29 RD42F1LfAnbywDZvwGS+PHRhYmx lIHdpZHRoPScxMDAlJyBzdHlsZT 7lOf1oTSFiPIAwuReecZVb GxVqz7egOHLkALktED6ioCkvT6S doSG8JTNyl2v6Mc40S73fA0YjvF A+EFBuqEY1nBR4eC2fAmAv DvB2LCptR199GoFeyAXjAjgke6g bv5bhsEt6HwTsATOibfLdmKtiLY T1j2TlEj94X14fLLjkLXOm TRJzKDXvQHJnrLgxrg4soE3eJn5 +NWNhoXO2hNT0dA5tIsLwRlF6ZJ twQ252RzUsjJWvYgapN45s A2IbnCP+SHXbIbz7VKLkmRiuXK9 uwMYnWAmySy0kPGZ0CfYnUoHlUX akC1JlRJHlpdfwwlrplYZ4 GXFiUGMdtS55Ic8tkOxkPt1tMAU tKLN6PCXbpCSwQ4RbxA2mHiMcYW TtFFLzF6MivDBgNZdlM197 POjtVmG7YDAkgmHvJ8YdQGQwnRe nZaM0b2R7Gj2PeJxltTYlCW4nNy OhRIw5L9KgSsm3HABrqZtm HV9nzONaWQwkOl7ouHmowUyaAP9 dTRPpdydyd884KjKsw8ysDWOqzS EzBCzlUND8E34zv7C1TEJf PXTyAUM9kXG6bE6hgUgjseskjGS uaEmgwkDimMnfYVwxWUegS392WE EqeYopOuQXKug6Z9CjWkh0 XOWlhPdxEU5zuIHqGDtpPo5dhKq ysRudIY1nFHPhzjzsh760QmNch4 bcANTrwGJyJJpyVUS6E05j e9P8RMCnWSHgCAP8lYV6kO6rjAl nbjogbGVmdDsgdmVydGljYWwtYW mxS806KPToiQfbZd5HWua6 X0CyJbg0NPNmfOyjJP6isYDkWRr yPv4kkJfavCveLW7tFKHjgeqht2 64BgDjp6xbLVCcoOQaHIye TLF5S96pw2L7MLXjUHZhJBN0rBR 6bO7jlXiroesehANilWxcpfMeeC blVDdpXFeeA076ZQCwlTmz PlBheWVyOjwvdGQ+LY59at72H1B vTipdXet1ONLkRLQ2rCV5hE4uAQ GvKKeyt3C2xEI6L1MmpaTi zi0ad9kxCAXcW (more content not included)... [facility] POCT PT/INRon 11-23-2023 POCT INR 1.5 High .7-1.2 [facility] Comment on above: Performed By: #### 2 [id number] #### [facility] [address] [place] [address] POCT PT 16.5 second(s) High 8.0-15.0 [facility] Comment on above: Performed By: #### 2 [id number] #### [facility] [address] [place] [address] Consent for Treatmenton 11-03 Consent for Treatment [id number]#1.00TIFF [facility] Medication Refillon 11-19-19 24 Medication Refill Patient: JOSÉ LUIS FAULKNER Age: [...] Daily, # 30 tab(s), Refills(s) 0, [facility], 172.7, cm, 03/09/23 15:05:00 EDT, Height/Length Dosing, 104.5, kg, 03/09/23 15:05:00 EDT, Weight Dosing Coumadin 4 mg Tab: See Instructions, take 6mg on sunday, take 4m g all other days, # 96 tab(s), Refills(s) 1, [facility], [facility], cm, 10/31/23 14:00:00 EDT, Height/Length Dosing, 101.2, kg, 10/31/23 14:00:00 EDT, Weight Dosing DuoNeb 2.5 mg-0.5 mg/3 mL Soln-Inh: 3 mL, Inhalation, QID, 1 EA, Refill(s) 0, [facility], 172.7, cm, 03/09/23 15:05:00 EDT, Height/Length Dosing, 104.5, kg, 03/09/23 15:05:00 EDT, Weight Dosing alprazolam 0.25 mg Tab: 0.25 mg = 1 tab(s), Oral, TID, PRN anxiety, # 30 tab(s), Refills(s) 2, other reason (Rx) carvedilol 25 mg Tab: 25 mg = 1 tab(s), Oral, BID, # 120 tab(s), Refills(s) 0, Pharmacy: [facility], 172, cm, 07/17/21 14:15:00 EST, Height/Length Dosing, 113, kg, 07/17/21 14:15:00 EST, Weight Dosing cyanocobalamin 1000 mcg/mL Inj: 1,000 mcg = 1 mL, IntraMuscular, qMonth, syringes for B12 injections-3ml, 25 guage 1 inch quantity sufficient for injections., # 10 mL, Refills(s) 1, Pharmacy: [facility], 177, cm, 04/12/23 9:03:00 EST, Height/Length Dosing, 101.6, kg, 11/0... nebulizer machine: nebulizer machine, See Instructions, 1 EA, 0, please provide machine with supplies, Supply torsemide 20 mg Tab: See Instructions, 1 tab(s) Oral Daily and then addtional 1 tab oral daily as needed for Leg swelling or weight gain of 3 pounds, # 60 tab(s), Refills(s) 0, Pharmacy: [facility], 177, cm, 08/27/23 20:45:00 EDT, Height/Length [...] Active adwoa (more content not included)... [facility] Physician Orderon 11-19-2023 Physician Order [id number]#1.00TIFF [facility] Consent for Treatmenton 11-02 Consent for Treatment [id number]#1.00TIFF [facility] POCT PT/INRon 11-16-2023 POCT INR 1.8 High .7-1.2 [facility] Comment on above: Performed By: #### 2 [id number] #### [facility] [address] [place] [address] POCT PT 19.4 second(s) High 8.0-15.0 [facility] Comment on above: Performed By: #### 2 [id number] #### [facility] [address] [place] [address] Consent for Treatmenton 11-02 Consent for Treatment [id number]#1.00TIFF [facility] Insurance Correspondenceon 0 11-01-2023 Insurance Correspondence [id number]#1.00TIFF [facility] Pulmonary Function Studieson 11-01-2023 Pulmonary Function Studies PULMONARY FUNCTION TEST: 10/24/2023 REQUESTING PROVIDER: Felipa Milligan M.D., RumaCOriCOri REASON FOR TESTING: High-risk medication. Spirometry results [...] BY: Nicolás Diggs M.D. ca Dictated: 10/30/2023 [id number] Transcribed: 11/01/2023 cc:Felipa Milligan M.D., F.A.COriCOri [facility] Comment on above: Result Comment: Elec tronically Signed By: Caterina BROUSSARD, Nicolás Chavez\.br\Date and Time Signed: 11/01/23 23:16 EDT Ambulatory Visit Summaryon 0 10-31-2023 Ambulatory Visit Summary JOSÉ LUIS FAULKNER :1950 Visit Date:10/31/2023 Ambulatory Visit Instructions Your Care Team Attending Physician - Armani Yarbrough DO Primary Care Physician - Olivia BROUSSARD, Mona Ward Primary Nurse - Daren MCCLELLAND, Linda Corado RN, Hattie Carter This Is Your [...] Appointments Sunday 9:00 AM EDT With: Where: [facility] Sunday 10:00 AM EDT With: Caterina BROUSSARD, Nicolás Chavez Where: [facility] You Need to Schedule the Following Appointments Follow Up with Armani Yarbrough DO, ONC When: Comments: plan iv iron. 2 or 3 doses. f/u in 1 year. epo cbc, cmp iron studies every three months. Where: [facility] [address] [place] [address] [phone] Fax Business (1) Medications What How Much [...] [phone] = (more content not included)... [facility] Consent for Treatmenton 10-03 Consent for Treatment [id number]#1.00TIFF [facility] Oncology Progress Noteon Oncology Progress Note [...] He was eventually cardioverted and returned to [facility]. He had a normal heart cath in [...] Normal range of motion. Integumentary: Warm, Dry, [place]. Neurologic: Alert, Oriented, Normal sensory. Psychiatric: Cooperative, [...] When Contact Information Armani Yarbrough DO, ONC [facility] [address] [place] [address] [phone] Fax Business (1) Additional Instructions: Medications acetaminophen [...] Daily aspi (more content not included)... [facility] Reference Lab Reporton 10-30 Reference Lab Report [id number]#1.00TIFF [facility] Consent for Treatmenton 10-03 Consent for Treatment [id number]#1.00TIFF [facility] Pulmonary Function Testson 0 10-24-2023 Pulmonary Function Tests [id number]#1.00TIFF [facility] ECG 12 Leadon 10-17-2023 ECG revealed atrial pacemaker rhythm, IVCD and nonspecific ST and T changes [facility] Work Phone: Erythropoiet Lvlon 4 Erythropoietin (EPO) Qn 27.1 mIU/mL High 2.6-18.5 [facility] Comment on above: Result Comment: Comparioel DxI 800 Immunoassay System Values obtained with different assay methods or kits cannot be used interchangeably. Results cannot be interpreted as absolute evidence of the presence or absence of malignant disease. Performed at: [facility] [address], [place] [id number] PhD Erick Nielsen Performed By: #### 4 [id number] #### [facility] [address] [place] [address] Free K+L Lt Chains,Qn,Son Immunoglobulin light chains.kappa.free (S) [Mass/Vol] 51.2 mg/L High 3.3-19.4 [facility] Comment on above: Performed By: #### 4 [id number], [id number] #### [facility] [address] [place] [address] Immunoglobulin light chains.kappa.free/Immu noglobulin light chains.lambda.free (S) [Mass ratio] 1.46 Invalid Interpretation Code 0.26-1.65 [facility] Comment on above: Result Comment: Perf ormed at: [facility] [address] [place] [address] [id number] PhD Erick Nielsen Performed By: #### 4 [id number], [id number] #### [facility] [address] [place] [address] Immunoglobulin light chains.lambda.free [Mass/Vol] 35.0 mg/L High 5.7-26.3 [facility] Comment on above: Performed By: #### 4 [id number], [id number] #### [facility] [address] [place] [address] MARGUERITE and PE, Serumon 10-17-19 Albumin [Mass/Vol] 3.5 g/dL Invalid Interpretation Code 2.9-4.4 [facility] Comment on above: Performed By: #### 4 [id number], [id number] #### [facility] [address] [place] [address] Albumin/Globulin [Mass ratio] 1.0 {ratio} Invalid Interpretation Code 0.7-1.7 [facility] Comment on above: Performed By: #### 4 [id number], [id number] #### [facility] [address] [place] [address] Alpha 1 globulin Elph [Mass/Vol] 0.2 g/dL Invalid Interpretation Code 0.0-0.4 [facility] Comment on above: Performed By: #### 4 [id number], [id number] #### [facility] [address] [place] [address] Alpha 2 globulin Elph [Mass/Vol] 1.2 g/dL High 0.4-1.0 [facility] Comment on above: Performed By: #### 4 [id number], [id number] #### [facility] [address] [place] [address] Beta globulin Elph [Mass/Vol] 1.1 g/dL Invalid Interpretation Code 0.7-1.3 [facility] Comment on above: Performed By: #### 4 [id number], [id number] #### [facility] [address] [place] [address] Gamma globulin Elph [Mass/Vol] 1.1 g/dL Invalid Interpretation Code 0.4-1.8 [facility] Comment on above: Performed By: #### 4 [id number], [id number] #### [facility] [address] [place] [address] Globulin (S) [Mass/Vol] 3.6 g/dL Invalid Interpretation Code 2.2-3.9 [facility] Comment on above: Performed By: #### 4 [id number], [id number] #### [facility] [address] [place] [address] IgA [Mass/Vol] 246 mg/dL Invalid Interpretation Code 61437 [facility] Comment on above: Performed By: #### 4 [id number], [id number] #### [facility] [address] [place] [address] IgG [Mass/Vol] 1031 mg/dL Invalid Interpretation Code 603-2493 [facility] Comment on above: Performed By: #### 4 [id number], [id number] #### [facility] [address] [place] [address] IgM [Mass/Vol] 102 mg/dL Invalid Interpretation Code 15-143 [facility] Comment on above: Performed By: #### 4 [id number], [id number] #### [facility] [address] [place] [address] Interpretation IEP [Interp] Comment Invalid Interpretation Code [facility] Comment on above: Result Comment: No m onoclonality detected. Performed By: #### 4 [id number], [id number] #### [facility] [address] [place] [address] Laboratory comment Alonso (Report) Comment Invalid Interpretation Code [facility] Comment on above: Result Comment: Prot ein electrophoresis scan will follow via computer, mail, or consumer educator delivery. Performed at: [facility] [id number] PhD Erick Nielsen Performed By: #### 4 [id number], [id number] #### [facility] [address] [place] [address] Protein [Mass/Vol] 7.1 g/dL Invalid Interpretation Code 6.0-8.5 [facility] Comment on above: Performed By: #### 4 [id number], [id number] #### [facility] [address] [place] [address] Protein.monoclonal Elph [Mass/Vol] Not Observed Invalid Interpretation Code Not Observed [facility] Comment on above: Performed By: #### 4 [id number], [id number] #### [facility] [address] [place] [address] Methylmalonic Acidon 024 Methylmalonate [Moles/Vol] 178 nmol/L Invalid Interpretation Code 0-378 [facility] Comment on above: Result Comment: This test was developed and its performance characteristics determined by [facility]. It has not been cleared or approved by the Food and Drug Administration. Performed at: [facility] [address] [id number] MD Timoteo Breen Performed By: #### 4 [id number], [id number] #### [facility] [address] [place] [address] Physician Orderon 10-17-2023 Physician Order [id number]#1.00TIFF [facility] CBC w/ Auto Diffon Basophils/100 WBC (Bld) 1.3 % Normal 0.0-2.0 [facility] Comment on above: Performed By: #### 2 063772, [id number], 7949052, 8951433, 3872416, 5027022, 4072968 #### [facility] [address] [place] [address] Basophils/Leukocytes Auto (Bld) [Pure # fraction] 0.1 E9/L Normal 0.0-0.2 [facility] Comment on above: Performed By: #### 2 945304, 79637396, 0880509, 7075651, 3334345, 7835609, 7726696 #### [facility] [address] [place] [address] Eosinophils (Bld) [#/Vol] 0.3 E9/L Normal 0.0-0.5 [facility] Comment on above: Performed By: #### 2 896693, 71332680, 3825878, 4132521, 4750444, 8148835, 9532374 #### [facility] [address] [place] [address] Eosinophils/100 WBC (Bld) 3.8 % Normal 0.0-8.0 [facility] Comment on above: Performed By: #### 2 136686, 65884971, 4957842, 5073220, 0498288, 9874894, 3226996 #### [facility] [address] [place] [address] Erythrocyte distribution width (RBC) [Ratio] 16.5 % High 10.9-14.2 [facility] Comment on above: Performed By: #### 2 088898, 56622021, 5135348, 0579099, 8491784, 8443620, 7666508 #### [facility] [address] [place] [address] Hematocrit (Bld) [Volume fraction] 34.1 % Low 37.7-49.0 [facility] Comment on above: Performed By: #### 2 058561, 71182367, 6664420, 1665289, 7900482, 3011722, 7597728 #### [facility] [address] [place] [address] Hemoglobin (Bld) [Mass/Vol] 11.2 g/dL Low 13.5-17.5 [facility] Comment on above: Performed By: #### 2 483622, 93849584, 0392444, 3358339, 5693155, 1090395, 1616373 #### [facility] [address] [place] [address] Lymphocytes (Bld) [#/Vol] 1.4 E9/L Normal 1.0-4.0 [facility] Comment on above: Performed By: #### 2 177428, 03791060, 7877568, 1350257, 0541398, 9698047, 5516250 #### [facility] [address] [place] [address] Lymphocytes/100 WBC (Bld) 16.6 % Normal 14.0-50.0 [facility] Comment on above: Performed By: #### 2 326192, 30511346, 3183484, 0659162, 6753551, 1814080, 4057423 #### [facility] [address] [place] [address] MCH (RBC) [Entitic mass] 28.6 pg Normal 27.0-34.0 [facility] Comment on above: Performed By: #### 2 271342, 65384216, 0657411, 4901593, 7413517, 6111989, 2581861 #### [facility] [address] [place] [address] MCHC (RBC) [Mass/Vol] 32.9 g/dL Normal 31.4-36.[address] [facility] Comment on above: Performed By: #### 2 647773, 15899324, 7077951, 8421494, 1378475, 6140823, 0064344 #### [facility] [address] [place] [address]271 MCV (RBC) [Entitic vol] 86.9 fL Normal 80.0-100.0 [facility] Comment on above: Performed By: #### 2 344144, 59878576, 4735935, 8032852, 4702633, 0826437, 9327740 #### [facility] [address] [place] [address] Monocytes (Bld) [#/Vol] 0.5 E9/L Normal 0.2-1.0 [facility] Comment on above: Performed By: #### 2 989962, 42564850, 9211338, 6755475, 2403310, 0157196, 7904802 #### [facility] [address] [place] [address] Neutrophils (Bld) [#/Vol] 5.9 E9/L Normal 2.0-7.5 [facility] Comment on above: Performed By: #### 2 351897, 23890912, 2741133, 0733645, 9515645, 9961250, 2158091 #### [facility] [address] [place] [address] Neutrophils/100 WBC (Bld) 72.1 % Normal 36.0-75.0 [facility] Comment on above: Performed By: #### 2 261539, 18098602, 9227935, 6089776, 3796550, 9510985, 2213509 #### [facility] [address] [place] [address] Platelet mean volume (Bld) [Entitic vol] 7.0 fL Normal 6.4-10.8 [facility] Comment on above: Performed By: #### 2 785510, 03940784, 6840089, 5503081, 9672932, 8522499, 4411033 #### [facility] [address] [place] [address] Platelets (Bld) [#/Vol] 286.0 E9/L Normal 150.0-500. 0 [facility] Comment on above: Performed By: #### 2 246812, 36296018, 9558961, 1437873, 7221454, 8091457, 7262699 #### [facility] [address] [id number] RBC (Bld) [#/Vol] 3.9 E12/L Low 4.3-5.9 [facility] Comment on above: Performed By: #### 2 672484, 45651197, 2151599, 0137123, 6451461, 9513798, 9818213 #### [facility] [address] [place] [address] WBC corrected for nucl RBC Auto (Bld) [#/Vol] 8.3 E9/L Normal 4.0-11.0 [facility] Comment on above: Performed By: #### 2 987709, 64741977, 0724881, 9238579, 0466976, 2538916, 9064816 #### [facility] [address] [place] [address] CHEMISTRYOrdered By: SYSTEM SYSTEM on 10-13-2023 Albumin [...] 10-13-2023 Albumin [Mass/Vol] 4.2 g/dL Normal 3.3-5.0 [facility] Comment on above: Performed By: #### 2 040708, 59263135, 7487983, 0005733, 3440599, 8181843, 1069750 #### [facility] [address] [place] [address] Albumin/Globulin (S) [Mass conc ratio] 1.4 Normal 1.1-2.2 [facility] Comment on above: Performed By: #### 2 516842, 15041968, 1906114, 4002398, 8307619, 0163938, 7473185 #### [facility] [address] [place] [address] ALP [Catalytic activity/Vol] 80 Int._Unit/L Normal 21-98 [facility] Comment on above: Performed By: #### 2 680538, 98761991, 9369416, 0734059, 6780960, 6279620, 3811750 #### [facility] [address] [place] [address] ALT No additional P-5'-P [Catalytic activity/Vol] 16 Int._Unit/L Normal 6-46 [facility] Comment on above: Performed By: #### 2 196142, 10089340, 7792873, 6563680, 9016508, 0555350, 4487212 #### [facility] [address] [place] [address] Anion gap [Moles/Vol] 14 mmol/L Normal 6-[address] [facility] Comment on above: Performed By: #### 2 729707, 75041754, 9684019, 5420713, 1104136, 2723078, 9416176 #### [facility] [address] [place] [address] AST [Catalytic activity/Vol] 19 Int._Unit/L Normal 5-43 [facility] Comment on above: Performed By: #### 2 767431, 71562056, 7012495, 9114799, 5984498, 7234768, 8764847 #### [facility] [address] [place] [address] Bilirubin [Mass/Vol] 0.4 mg/dL Normal 0.0-1.1 [facility] Comment on above: Performed By: #### 2 591568, 90307569, 1779348, 1054377, 8007745, 5029687, 1064554 #### [facility] [address] [place] [address] Calcium [Mass/Vol] 8.7 mg/dL Low 8.9-11.1 [facility] Comment on above: Performed By: #### 2 424813, 20200419, 7389163, 9938778, 8096335, 3566429, 6213799 #### [facility] [address] [place] [address] Chloride [Moles/Vol] 105 mmol/L Normal 101-111 [facility] Comment on above: Performed By: #### 2 000146, 16130273, 8312507, 9559433, 2913551, 6434510, 4302682 #### [facility] [address] [place] [address] CO2 [Moles/Vol] 29 mmol/L Normal 21-31 [facility] Comment on above: Performed By: #### 2 695188, 85122250, 9569617, 2853193, 1247877, 8914461, 3745265 #### [facility] [address] [place] [address] Creatinine [Mass/Vol] 1.3 mg/dL Normal 0.5-1.[address] [facility] Comment on above: Performed By: #### 2 022488, 37738192, 7145929, 1785382, 0054996, 1170102, 7000485 #### [facility] [address] [place] [address] Globulin (S) [Mass/Vol] 3.1 g/dL Normal 1.4-4.0 [facility] Comment on above: Performed By: #### 2 047928, 53876021, 2793195, 6299464, 2745878, 3346965, 9039820 #### [facility] [address] [place] [address] Glucose [Mass/Vol] 204 mg/dL High 55-199 [facility] Comment on above: Performed By: #### 2 129149, 81649415, 3404189, 8656924, 8672738, 3635376, 8525099 #### [facility] [address] [place] [address] Potassium [Moles/Vol] 4.1 mmol/L Normal 3.5-5.[address] [facility] Comment on above: Performed By: #### 2 533014, 23697385, 8405821, 7905100, 7996409, 6179191, 3004915 #### [facility] [address] [place] [address] Protein [Mass/Vol] 7.3 g/dL Normal 6.0-7.8 [facility] Comment on above: Performed By: #### 2 668795, 16402350, 2775109, 0172788, 9050341, 5589140, 4998083 #### [facility] [address] [place] [address] Sodium [Moles/Vol] 144 mmol/L Normal 135-145 [facility] Comment on above: Performed By: #### 2 463650, 09489342, 1947943, 3598231, 1695781, 2166582, 4350995 #### [facility] [address] [place] [address] Urea nitrogen [Mass/Vol] 21 mg/dL Normal 5-21 [facility] Comment on above: Performed By: #### 2 524110, 07704556, 5778073, 9895885, 1330484, 9020034, 5658314 #### [facility] [address] [place] [address] Urea nitrogen/Creatinine [Mass ratio] 16 No Units Normal 10-20 [facility] Comment on above: Performed By: #### 2 413900, 90224903, 8265199, 1171707, 3472482, 9947316, 1330634 #### [facility] [address] [place] [address] Consent for Treatmenton 10-02 Consent for Treatment [id number]#1.00TIFF Normal [facility] Ferritinon 10-13-2023 Ferritin [Mass/Vol] 35 ng/mL Normal 24-336 [facility] Comment on above: Performed By: #### 2 598874, 98876718, 3095948, 2440104, 2010319, 5097634, 6883831 #### [facility] [address] [place] [address] HEMATOLOGYOrdered By: SYSTEM SYSTEM on 10-13-2023 Basophils/100 [...] 10-13-2023 Iron [Mass/Vol] 60 microgram/dL Normal 35-153 [facility] Comment on above: Performed By: #### 2 083607, 17253419, 4801133, 3786845, 2334557, 4657830, 2424301 #### [facility] [address] [place] [address] Iron Saturationon 10-13-2023 Iron binding capacity [Mass/Vol] 326 microgram/dL Normal 250-400 [facility] Comment on above: Performed By: #### 2 099659, 08274911, 7922522, 4379260, 2347025, 5448634, 7068928 ####[facility] [address] [place] [address] Iron saturation [Mass fraction] 18 % Low 20-50 [facility] Comment on above: Performed By: #### 2 886583, 86437851, 5739560, 0531281, 3470275, 5930129, 7385855 ####[facility] [address] [place] [address] Retic Counton 10-13-2023 Reticulocytes/100 RBC (Bld) 1.5 % Normal .5-2.2 [facility] Comment on above: Performed By: #### 4 11416931, 8622335292 #### [facility] [address] [place] [address] Transferrinon 10-13-2023 Transferrin [Mass/Vol] 233 mg/dL Normal 200-370 [facility] Comment on above: Performed By: #### 2 677439, 95485869, 0416881, 0438126, 7767258, 4616243, 2462898 ####[facility] [address] [place] [address] eGFRon 10-13-2023 eGFR 57 mL/min/1.73 m2 Low >=59 [facility] Comment on above: Order Comment: Order added by Discern Expert. Performed By: #### 2 097184, 57854224, 7382705, 9091035, 6149925, 7791343, 0633922 ####[facility] [address] [place] [address] 36on 09-25-2023 36 Left detailed messag e for pharmacy to remove Keisha brambila as prescriber for levothyroxine as this needs to go to his PCP . [facility] 36 Rx sent for 90 days, no refills. PCP should've taken over prescribing this. Can you follow-up with pt's pharmacy to send future refill requests to PCP? Thx [facility] Fish and Urine Cyt o ([facility])on 09-25-2023 UVFISH & UC Diagnosis Info Invalid Interpretation Code [facility] Comment on above: Result Comment: A:Ur [...] correlated with cytology and cystoscopy results.* CPT 07657, 42085. Microscopic Notes - Microscopic Notes - Abnormal cells 9p21 deletions: Abnormal cells aneploid events: Total cells analyzed: 100 Hematuria: Gross Description Site ID:A color Yellow fixative Alcohol Received 100 mls of clear yellow fluid with the patient's name and, Urine on the vial. Electronically signed by : on: 07/23/2023 23:12:06 Performed By: #### 1 [id number] ####[facility] [address] [place] [address] CHEMISTRYOrdered By: SYSTEM SYSTEM on 09-12-2023 Albumin [...] 09-12-2023 Albumin [Mass/Vol] 4.2 g/dL Normal 3.3-5.0 [facility] Comment on above: Performed By: #### 2 476461, 83141243 ####[facility] [address] [place] [address] Albumin/Globulin (S) [Mass conc ratio] 1.4 Normal 1.1-2.2 [facility] Comment on above: Performed By: #### 2 184397, 49330686 ####[facility] [address] [place] [address] ALP [Catalytic activity/Vol] 73 Int._Unit/L Normal 21-98 [facility] Comment on above: Performed By: #### 2 462102, 55450383 ####[facility] [address] [place] [address] ALT No additional P-5'-P [Catalytic activity/Vol] 12 Int._Unit/L Normal 6-46 [facility] Comment on above: Performed By: #### 2 916423, 20144020 ####[facility] [address] [place] [address] Anion gap [Moles/Vol] 14 mmol/L Normal 6-[address] [facility] Comment on above: Performed By: #### 2 487602, 23517951 ####[facility] [address] [place] [address] AST [Catalytic activity/Vol] 11 Int._Unit/L Normal 5-43 [facility] Comment on above: Performed By: #### 2 787816, 91139714 ####[facility] [address] [place] [address] Bilirubin [Mass/Vol] 0.4 mg/dL Normal 0.0-1.1 [facility] Comment on above: Performed By: #### 2 262921, 69530251 ####[facility] [address] [place] [address] Calcium [Mass/Vol] 9.2 mg/dL Normal 8.9-11.1 [facility] Comment on above: Performed By: #### 2 158093, 36245999 ####[facility] [address] [place] [address] Chloride [Moles/Vol] 103 mmol/L Normal 101-111 [facility] Comment on above: Performed By: #### 2 091875, 42996908 ####[facility] [address] [place] [address] CO2 [Moles/Vol] 27 mmol/L Normal 21-31 [facility] Comment on above: Performed By: #### 2 351829, 92907802 ####[facility] [address] [place] [address] Creatinine [Mass/Vol] 1.5 mg/dL High 0.5-1.[address] [facility] Comment on above: Performed By: #### 2 406280, 54412269 ####[facility] [address] [place] [address] Globulin (S) [Mass/Vol] 3.0 g/dL Normal 1.4-4.0 [facility] Comment on above: Performed By: #### 2 879920, 73492530 ####[facility] [address] [place] [address] Glucose [Mass/Vol] 142 mg/dL Normal 55-199 [facility] Comment on above: Performed By: #### 2 448901, 63748955 ####[facility] [address] [place] [address] Potassium [Moles/Vol] 4.2 mmol/L Normal 3.5-5.[address] [facility] Comment on above: Performed By: #### 2 563333, 65220525 ####[facility] [address] [place] [address] Protein [Mass/Vol] 7.2 g/dL Normal 6.0-7.8 [facility] Comment on above: Performed By: #### 2 143619, 65938412 ####[facility] [address] [place] [address] Sodium [Moles/Vol] 140 mmol/L Normal 135-145 [facility] Comment on above: Performed By: #### 2 576318, 94179794 ####[facility] [address] [place] [address] Urea nitrogen [Mass/Vol] 21 mg/dL Normal 5-21 [facility] Comment on above: Performed By: #### 2 473803, 34408965 ####[facility] [address] [place] [address] Urea nitrogen/Creatinine [Mass ratio] 14 No Units Normal 10-20 [facility] Comment on above: Performed By: #### 2 281528, 77988479 ####[facility] [address] [place] [address] Consent for Treatmenton 09-02 Consent for Treatment [id number]#1.00TIFF Normal [facility] Physician Orderon 09-12-2023 Physician Order [id number]#1.00TIFF Normal [facility] eGFRon 09-12-2023 eGFR 48 mL/min/1.73 m2 Low >=59 [facility] Comment on above: Order Comment: Order added by Discern Expert. Performed By: #### 2 869174, 56757795 ####[facility] [address] [place] [address] Lab Reportson 09-07-2023 Lab Reports [id number]#1.00TIFF [facility] Reference Lab Reporton 09-06 Reference Lab Report [id number]#1.00TIFF [facility] Capillary blood glucose hakan urement by glucometer (mass/volume)Ordered By: Bill Mcgee on 09-06-2023 Glucose [Mass/Vol] 126 mg/dL [facility] Comment on above: Random Glucose Refer ence Range is dependent on time and content of last meal. Glucose of more than 200 mg/dL in a nonstressed, ambulatory subject supports the diagnosis of Diabetes Mellitus. Result Comment: [place] om Glucose Reference Range is dependent on time and content of last meal. Glucose of more than 200 mg/dL in a nonstressed, ambulatory subject supports the diagnosis of Diabetes Mellitus. Performed By: #### G LULS #### Point of Care testing , Glucose Poct Glucometerson 0 09-06-2023 Commemt1 Glu2: Cleaned Meter Normal [facility] Comment on above: Result Comment: PERF ORMED BY: [facility] [address] [place] [address] PATHOLOGIST FLIGHT SURVEYOR ANUSHA MANCUSO M.D. Performed By: #### G LULS #### Point of Care testing , Victor M 09-06-2023 L Specimen: Received: 09/06/23 Status: TAY Martínez Num: [id number] Spec Type: Surgical Subm Dr: Bill Mcgee MD Tissues: A Colon Biopsy (CECAL POLYP) B Colon Biopsy (SIGMOID POLYP) Procedures: HE/4, Gross/Micro L4/2 Age/ Patient Sex Location Account Attending Physician Mely José Luis Chambers Eliana 72/M [id number] Bill Mcgee MD SPEC NUM: RECD: 09/06/23 STATUS: TAY MARTÍNEZ NUM: [id number] BASIA: 09/06/23 DR: Bill Mcgee MD ENTERED: 09/06/[address] [facility] [address]: SPEC TYPE: Surgical DEPT: S [...] mm. All in 1 cassette. CPT Codes 81583c6 Specimen: Received: 09/06/23 Status: TAY Martínez Num: [id number] Spec Type: Surgical Subm Dr: Bill Mcgee MD Tissues: A Colon Biopsy (CECAL POLYP) B Colon Biopsy (SIGMOID POLYP) Procedures: HE/4, Gross/Micro L4/2 Patient: José Luis Faulkner [id number] (Continued) Signed (signature on file) Quirino Madrigal MD 09/07/23 1351 Normal [facility] No Panel InformationOrdered By: Bill Mcgee on 09-06-2023 Bedside Glucose Comment Glu2: cleaned meter [facility] General Message Officeon General Message Office --- --- --- --- - -- --- --- --- --- From: Otis Jackson To: JOSÉ LUIS FAULKNER Sent: 08/30/23 02:30:44 AM EDT Subject: Discharge Summary Ready to View A summary regarding your recent visit is available in the Documents section of your health record. Normal [facility] BMPon 08-29-2023 Anion gap [Moles/Vol] 10 mmol/L Normal 6-[address] [facility] Comment on above: Performed By: #### 4 95623534, [id number] #### [facility] [address] [place] [address] Calcium [Mass/Vol] 8.1 mg/dL Low 8.9-11.1 [facility] Comment on above: Performed By: #### 4 55368662, [id number] #### [facility] [address] [place] [address] Chloride [Moles/Vol] 109 mmol/L Normal 101-111 [facility] Comment on above: Performed By: #### 4 64458941, 7264636801 #### [facility] [address] [place] [address] CO2 [Moles/Vol] 24 mmol/L Normal 21-31 [facility] Comment on above: Performed By: #### 4 18424148, 0679238840 #### [facility] [address] [place] [address] Creatinine [Mass/Vol] 1.4 mg/dL High 0.5-1.[address] [facility] Comment on above: Performed By: #### 4 38050682, 1871111888 #### [facility] [address] [place] [address] Glucose [Mass/Vol] 118 mg/dL Normal 55-199 [facility] Comment on above: Performed By: #### 4 84491867, [id number] #### [facility] [address] [place] [address] Potassium [Moles/Vol] 4.5 mmol/L Normal 3.5-5.[address] [facility] Comment on above: Performed By: #### 4 85404691, [id number] #### [facility] [address] [place] [address] Sodium [Moles/Vol] 138 mmol/L Normal 135-145 [facility] Comment on above: Performed By: #### 4 22161437, 3988741697 #### [facility] [address] [place] [address] Urea nitrogen [Mass/Vol] 26 mg/dL High 5-21 [facility] Comment on above: Performed By: #### 4 70517521, 3069965111 #### [facility] [address] [place] [address] Urea nitrogen/Creatinine [Mass ratio] 19 No Units Normal 10-20 [facility] Comment on above: Performed By: #### 4 13922868, [id number] #### [facility] [address] [place] [address] CHEMISTRYOrdered By: Lab ROP User on 08-29-2023 Glucose [Mass/Vol] 205 mg/dL High 55 - 99 mg/dL [facility] Subsection Comment on above: Result Comment: Kennedy espitia RN/ POC Device SN [id number] 1 Invalid Interpretation Code [facility] Subsection POC User ID [id number] 1 Invalid Interpretation Code [facility] Subsection POC Username DAWN LANDA Invalid Interpretation Code [facility] Subsection Glucose [Mass/Vol] 109 mg/dL High 55 - 99 mg/dL [facility] P[facility] Subsection Comment on above: Result Comment: Repe at Test POC Device SN [id number] 1 Invalid Interpretation Code [facility] POC Subsection POC User ID [id number] 1 Invalid Interpretation Code [facility] POC Subsection POC Username DAWN LANDA Invalid Interpretation Code [facility] P[facility] Subsection CHEMISTRYOrdered By: SYSTEM SYSTEM on [...] 08-03 Glucose [Mass/Vol] 205 mg/dL High 55-99 [facility] Comment on above: Result Comment: Kennedy espitia RN/ Performed By: #### 2 07277391 ####[facility] [address] [place] [address] Glucose [Mass/Vol] 109 mg/dL High 55-99 [facility] Comment on above: Result Comment: Repe at Test Performed By: #### 4 42701193, [id number] #### [facility] [address] [place] [address] Discharge Instructionson Discharge Instructions [id number]#1.00TIFF Normal [facility] Discharge Note-Nursingon Discharge Note-Nursing JOSÉ LUIS [...] Pending Diagnostic Test Results None Pharmacy Information [facility] Previously Scheduled Follow-Up Appointments October. 2023 2:15 PM EDT With: Armani Yarbrough DO Where: Oncology Sunday 10:30 AM EDT With: Caterina BROUSSARD, Priya Kathy Where: [facility] New Follow Up Appointments after Discharge Follow Up with Felipa Milligan When: Within 2 to 4 weeks Comments: Call for followup appointment Where: [facility] [address] [place] [address]- Business (1) Follow Up with Mona Baker When: Within 5 to 7 days Comments: Call for followup appointment Where[place] [address]- Business (1) Medications What How Much When [...] 08/30/23 Unchan (more content not included)... Normal [facility] Houzz Education Videoon Houzz Education Video What Is Atrial Fibrillation? Yes Patient Normal [facility] Houzz Education Video Yes Patient Caring for Your Urinary Catheter Normal [facility] Guided InterventionsWell Education Video Care in the Hospital: Preventing a Urinary Catheter Infection Normal [facility] Houzz Education Video Yes Patient Atrial Fibrillation: Managing Your Symptoms Normal [facility] Houzz Education Video Yes Patient Atrial Fibrillation: Living Well Normal [facility] Houzz Education Video Yes Patient Atrial Fibrillation: Feeling More in Control Normal [facility] Houzz Education Video Yes Patient Avoiding Infections in the Hospital Normal [facility] Inpatient Clinical Summaryon 08-29-2023 Inpatient Clinical Summary [address] [address] Clinical Summary Person Information: Name: JOSÉ LUIS FAULKNER Age: 72 Years : 1950 Sex: Male PCP: Mona Baker MD Marital Status: Phone: [phone] Race: White Ethnicity: Non- or Language: Hungarian Visit Id: Visit Reason: Weakness or fatigue; Shortness of breath; WEAKNESS SOB Speciality: Acuity: Enc Type: Inpatient Med Service: Medical Arrival: 08/27/2023 20:34:43 Discharge: Dispo Type: Admitted as IP to this Hosp Address: [address] [place] [phone] Provider Notes: Diagnosis: 1:LAWANDA (acute kidney injury); [...] reflux uropathy Parkinsonian syndrome JASMIN on CPAP assisted (current) use of insulin Weakness generalized BPH [...] please provi (more content not included)... Normal [facility] Inpatient Patient Summaryon 08-29-2023 Inpatient Patient Summary [address] [address] Patient Discharge Instructions PERSON INFORMATION Name: MELY LAURYRiriRYANTUTU Monroy Date of : 1950 Current Date: 08/29/2023 [...] vein thrombosis (DVT) prophylaxis Condition at Discharge: JOSÉ LUIS Jones has been given the following list of [...] Follow up: With: Address: When: Felipa Milligan [facility] [address] [place] [address] Business (1) Within 2 to 4 weeks Comments: Call for followup appointment With: Address: When: Mona [place] [address] [facility] () Within 5 to 7 days Comments: Call for followup appointment In the event that this physician does not participate in your insurance network, please consult with your insurance company to find a nearby participating provider. Type Location Start [facility] ONC Office Visit 30 (FT) FT.ONCOLOGY [...] Ne xt Dose: (more content not included)... 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 Sinclair. Pt is aware of plan to DC home today. Pt is from home with , daughter who is nurse, son in law and grandchildren live with pt. Declines any HH or PM at [place]. Medicare rights reviewed. CRM following . PCP verified and insurance information reviewed and DME discussed. Contact information provided and white board updated. [facility] Comment on above: Result Comment: Elec tronically Signed By: Flaco MCCLELLAND, Estelita\.ricardo\Date and Time Signed: 08/29/23 10:35 EDT Message from Medicareon 08-03 Message from Medicare [id number]#1.00TIFF [facility] Monitor Recordon 08-29-2023 Monitor Record [id number]#1.00TIFF [facility] Progress Note-Physicianon Progress Note-Physician Assessment/Plan 72-year-old male [...] Ordered: Hospital Discharge Day > 30 Min 19668 2. Dyspnea (R06.00: Dyspnea, unspecified) Related to generalized weakness. Resolved. Ordered: Hospital Discharge Day > 30 Min 39652 3. Hypertension (I10: Essential (primary) hypertension) Blood pressure well-controlled. Continue on Coreg, isosorbide. Enalapril on hold.-May resume at discharge. Ordered: Hospital Discharge Day > 30 Min 37438 4. PAF (paroxysmal atrial fibrillation) (I48.0: Paroxysmal atrial fibrillation) Rate controlled. Continue on amiodarone, Coreg and Eliquis. Ordered: 5. Chronic systolic heart failure (I50.22: Chronic systolic (congestive) heart failure) Clinically stable. Continue on isosorbide. May resume Aldactone and Bumex at discharge. Ordered: Hospital Discharge Day > 30 Min 20809 6. CAD (coronary artery disease) (I25.10: Atherosclerotic heart disease of [place] coronary artery without angina pectoris) Status post [...] deep vein thrombosis (DVT) prophylaxis (Z79.899: Other longterm (current) drug therapy) Eliquis. Disposition: Home today. [...] mg/dL High (08/29/23 08:13:00) POC Device SN: [id number] ( (more content not included)... [facility] Comment on above: Result Comment: Elec tronically Signed By: JOSE BROUSSARD, Olaf\.br\Date and Time Signed: 08/29/23 09:58 EDT eGFRon 08-29-2023 eGFR 53 mL/min/1.73 m2 Low >=59 [facility] Comment on above: Order Comment: Order added by Discern Expert. Performed By: #### 4 [id number], [id number] #### [facility] [address] [place] [address] BMPon 08-28-2023 Anion gap [Moles/Vol] 15 mmol/L Normal 6-[address] [facility] Comment on above: Performed By: #### 4 [id number], [id number] #### [facility] [address] [place] [address] Calcium [Mass/Vol] 8.3 mg/dL Low 8.9-11.1 [facility] Comment on above: Performed By: #### 4 [id number], [id number] #### [facility] [address] [place] [address] Chloride [Moles/Vol] 107 mmol/L Normal 101-111 [facility] Comment on above: Performed By: #### 4 [id number], [id number] #### [facility] [address] [place] [address] CO2 [Moles/Vol] 23 mmol/L Normal 21-31 [facility] Comment on above: Performed By: #### 4 [id number], [id number] #### [facility] [address] [place] [address] Creatinine [Mass/Vol] 2.1 mg/dL High 0.5-1.[address] [facility] Comment on above: Performed By: #### 4 [id number], [id number] #### [facility] [address] [place] [address] Glucose [Mass/Vol] 84 mg/dL Normal 55-199 [facility] Comment on above: Performed By: #### 4 [id number], [id number] #### [facility] [address] [place] [address] Potassium [Moles/Vol] 4.6 mmol/L Normal 3.5-5.[address] [facility] Comment on above: Performed By: #### 4 [id number], [id number] #### [facility] [address] [place] [address] Sodium [Moles/Vol] 140 mmol/L Normal 135-145 [facility] Comment on above: Performed By: #### 4 [id number], [id number] #### [facility] [address] [place] [address] Urea nitrogen [Mass/Vol] 51 mg/dL High 5-21 [facility] Comment on above: Performed By: #### 4 [id number], [id number] #### [facility] [address] [place] [address] Urea nitrogen/Creatinine [Mass ratio] 24 No Units High 10-20 [facility] Comment on above: Performed By: #### 4 [id number], [id number] #### [facility] [address] [place] [address] CHEMISTRYOrdered By: Yvon ROP User on 08-28-2023 Glucose [Mass/Vol] 220 mg/dL High 55 - 99 mg/dL [facility] POC Subsection Comment on above: Result Comment: Kennedy espitia RN/ POC Device SN [id number] Invalid Interpretation Code [facility] POC Subsection POC User ID [id number] 1 Invalid Interpretation Code [facility] POC Subsection POC Username KIAN BROWN Invalid Interpretation Code [facility] POC Subsection CHEMISTRYOrdered By: SYSTEM SYSTEM on [...] Milagro Wander, January 2018) Urea nitrogen [Mass/Vol] 51 mg/dL [...] Instructions For Use, Milagro Wander, January 2018) CHEMISTRYOrdered By: Cris Luis on 08-28-2023 HbA1c (Bld) [Mass fraction] 8.9 % High <=5.9% [facility] ChemAutoSS Capillary Glucose POCon 08-03 Glucose [Mass/Vol] 220 mg/dL High 55-99 [facility] Comment on above: Result Comment: Kenneyd SULLIVAN Performed By: #### 2 [id number], 07862603, 5942158, 0606305, 4088194, 5991851, 2976387 #### [facility] [address] [place] [address] Glucose [Mass/Vol] 185 mg/dL High 55-99 [facility] Comment on above: Result Comment: Kennedy SULLIVAN Performed By: #### 4 [id number], [id number] #### [facility] [address] [place] [address] Glucose [Mass/Vol] 137 mg/dL High 55-99 [facility] Comment on above: Result Comment: Kennedy SULLIVAN Performed By: #### 2 [id number] ####[facility] [address] [place] [address] Glucose [Mass/Vol] 78 mg/dL Normal 55-99 [facility] Comment on above: Result Comment: Kennedy SULLIVAN Performed By: #### 4 [id number], [id number] #### [facility] [address] [place] [address] ED Clinical Summaryon 2023 ED Clinical Summary (Inserted Image. Valerie ble to display) [address] [address] ED Clinical Summary Person Information Name: MELY LAURYJOSÉ LUIS [place]z [place] Age: 72 Years : 1950 Sex: Male Language: Hungarian PCP: Mona Baker MD Marital Status: Phone: [phone] Visit Id: Visit Reason: Weakness or fatigue; Shortness of breath; WEAKNESS SOB Speciality: Acuity: 2 Enc Type: Inpatient Med Service: Med/Surg Arrival: 08/27/2023 20:34:43 Discharge: LOS: 000 04:56 Checkin: 08/27/2023 20:34:43 Checkout: 08/28/2023 01:30:57 Dispo Type: Admitted as IP to this [facility] EVENTS: Event Name Event Status Request [...] 23:13:09 Patient Care Request 08/27/2023 23:13:10 ADDRESS: [address] [place] [phone] [facility] DOC NOTES: MEDICAL INFORMATION: Prescriptions Given: Medications [...] NO B (more content not included)... Normal [facility] ED Patient Education Noteon 08-28-2023 ED Patient Education Note Normal [facility] ED Patient Summaryon 024 ED Patient Summary (Inserted Image. Valerie ble to display) [place] [id number] Patient Discharge Instructions Person Information Name: JOSÉ LUIS FAULKNER Age: 72 Years Arrival Date: 08/27/2023 20:34:43 Discharge Diagnosis: LAWANDA (acute kidney injury); Dyspnea Primary Care Physician: Mona Baker MD Provider Information Primary Provider: Srinivasa Courtney DO Advanced Physical Therapy Instructor:None The exam and treatment you received in the Emergency Department were for an urgent problem and are not intended as complete care. It is important that you follow up with a doctor, nurse practitioner, or physician?s public services assistant for ongoing care. If your symptoms become worse or you do not improve as expected and you are unable to reach your usual health care provider, you should return to the Emergency Department. We are available 24 hours a day. MELY CHAMBERSOZDELORIS Monroy has been given the following list of [...] opioids can be used to help relieve enuyniuv-ei-lmepuq pain and are often prescribed following a [...] be struggling with addiction, tell your health pet caregiver and ask for guidance or call [facility]?S National Helpline at 4-141-129-IXQY. v Source: [place] Department of Health and Human Services/Center for Disease Control & Prevention [facility] Medications Given: Medicat (more content not included)... 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 CRM following . PCP verified and insurance information reviewed and DME discussed. Contact information provided and white board updated. [facility] Comment on above: Result Comment: Elec tronically Signed By: Flaco MCCLELLAND, Estelita\.ricardo\Date and Time Signed: 08/28/23 10:51 EDT Monitor Recordon 08-28-2023 Monitor Record [id number]#[id number] [facility] Monitor Record [id number]#[id number] [facility] Progress Note-Nurseon 2023 Progress Note-Nurse Patient does [...] This nurse will pass this report to corky. [facility] Progress Note-Physicianon Progress Note-Physician Assessment/Plan 72-year-old male [...] with IV fluid. Renal ultrasound pending. Ordered: [facility] Hospital Care/Day Moderate 35 Minutes 36511 2. Dyspnea (R06.00: Dyspnea, unspecified) Related to generalized weakness. Improved. Ordered: [facility] Care/Day Moderate 35 Minutes 55967 3. Hypertension (I10: Essential (primary) hypertension) Blood pressure well-controlled. Continue on Coreg, isosorbide. Enalapril on hold. Ordered: [facility] Hospital Care/Day Moderate 35 Minutes 77126 4. PAF (paroxysmal atrial fibrillation) (I48.0: Paroxysmal atrial fibrillation) Rate controlled. Continue on amiodarone, Coreg and Eliquis. Ordered: [facility] Care/Day Moderate 35 Minutes 71813 5. Chronic systolic heart failure (I50.22: Chronic systolic (congestive) heart failure) Clinically dry. Continue on isosorbide. Aldactone on hold. Bumex on hold. Ordered: [facility] Care/Day Moderate 35 Minutes 80170 6. CAD (coronary artery disease) (I25.10: Atherosclerotic heart disease of [place] coronary artery without angina pectoris) Status post [...] deep vein thrombosis (DVT) prophylaxis (Z79.899: Other rn long term care (current) drug therapy) Eliquis. Disposition: Hopefully home in a.m after adequate hydration and improvement in renal functions. I discussed the diagnosis and plan of care with the patient at the bedside. Moderate level of MDM based on addressing above issues. This documentation was transcribed using voice recognition software. Several attempts were made to ensure accuracy. However inadvertent computerized pusher operator errors may be present. Olaf Sinclair. [...] magnesium oxid (more content not included)... Normal [facility] Comment on above: Result Comment: Elec tronically Signed By: JOSE BROUSSARD, Olaf\.br\Date and Time Signed: 08/28/23 10:05 EDT Troponin 6 Hr.on 08-28-2023 Troponin 17.30 pg/mL Normal 15.90-38.4 0 [facility] Comment on above: Result Comment: The 95% CI (Confidence Interval) PPV (Positive Predictive Value) for myocardial infarction in females is 38 pg/mL, in males 51 pg/mL. The results should be used in conjunction with clinical conditions of myocardial infarction. (Access High Sensitivity Troponin I Instructions For Use, [employer], January 2018) Performed By: #### 1 [id number] ####[facility] [address] [place] [address] Troponin 9 Hr.on 08-28-2023 Troponin 18.30 pg/mL Normal 15.90-38.4 0 [facility] Comment on above: Result Comment: The 95% CI (Confidence Interval) PPV (Positive Predictive Value) for myocardial infarction in females is 38 pg/mL, in males 51 pg/mL. The results should be used in conjunction with clinical conditions of myocardial infarction. (Tã Em Bé High Sensitivity Troponin I Instructions For Use, [employer], January 2018) Performed By: #### 4 [id number], [id number] #### [facility] [address] [place] [address] URINALYSISOrdered By: SYSTEM SYSTEM on 08-28-2023 Color (U) Light-Yellow 1 (08/28/23 5:34 AM) Normal Yellow [facility] UA Auto SS Comment on above: Interpretive Data: M icroscopic readings are only performed on those samples that meet specific criteria set forth by [facility]. Glucose (U) [Mass/Vol] 4 mg/dL Invalid Interpretation Code Negativemg /dL FT UA Auto SS Ketones Ql (U) Negative Normal Negativemg /dL FT UA Auto SS UA Blood Negative Normal Negativemg /dL [facility] UA Auto SS UA Clarity Clear (08/28/23 5:34 AM) Normal Clear FT UA Auto SS UA Leuk Est Negative Normal NegativeLe u/uL [facility] UA Auto SS UA Nitrite Negative Normal Negativemg /dL FT UA Auto SS UA pH 5.0 *NA* (08/28/23 5:34 AM) Invalid Interpretation Code 5.0 - 9.0 [facility] UA Auto SS UA Protein Negative Normal Negativemg /dL FT UA Auto SS UA Spec Grav 1.017 *NA* (08/28/23 5:34 AM) Invalid Interpretation Code 1.005 - 1.030 [facility] UA Auto SS UA Urobilinogen Negative Normal Negativemg /dL FT UA Auto SS Urobilinogen (U) [Mass/Vol] Negative Normal Negativemg /dL [facility] UA Auto SS URINALYSISOrdered By: Alliso n Janet on 08-28-2023 UA Spec Desc Catheter (08/28/23 5:34 AM) Normal [facility] UA Auto SS US Renalon 08-28-2023 US [...] Mendez FINAL REPORT Dictated: 08/28/2023 11:42 am Eyad Astorga M.D. Signed (Electronic Signature): 08/28/2023 11:42 am Signed by: Eyad Astorga M.D. Transcribed by: JUAN Technologist: JALEEL Lopez [facility] XR Chest Single Viewon 08-27 XR [...] mGy = na DAP = na Normal [facility] eGFRon 08-28-2023 eGFR 32 mL/min/1.73 m2 Low >=59 [facility] Comment on above: Order Comment: Order added by Discern Expert. Performed By: #### 4 [id number], [id number] #### [facility] [address] [place] [address] BMPon 08-27-2023 Anion gap [Moles/Vol] 18 mmol/L High 6-[address] [facility] Comment on above: Performed By: #### 1 9093086, 1451160, 4197031, 30392104, 56480147, 9395209, 30085547 ####[facility] [address] [place] [address] Calcium [Mass/Vol] 8.5 mg/dL Low 8.9-11.1 [facility] Comment on above: Performed By: #### 1 8015152, 9661572, 4606612, 01590953, 12598409, 8787488, 35700878 ####[facility] [address] [place] [address] Chloride [Moles/Vol] 103 mmol/L Normal 101-111 [facility] Comment on above: Performed By: #### 1 4797528, 3988688, 9485235, 14008891, 79993400, 3479316, 99004418 ####[facility] [address] [place] [address] CO2 [Moles/Vol] 21 mmol/L Normal 21-31 [facility] Comment on above: Performed By: #### 1 8144889, 9926379, 3863638, 39850655, 13196873, 6907923, 05247367 ####[facility] [address] [place] [address] Creatinine [Mass/Vol] 2.5 mg/dL High 0.5-1.[address] [facility] Comment on above: Performed By: #### 1 9225668, 2906686, 3859377, 44327177, 78271160, 3941496, 21513303 ####[facility] [address] [place] [address] Glucose [Mass/Vol] 182 mg/dL Normal 55-199 [facility] Comment on above: Performed By: #### 1 5340416, 6894675, 4556532, 60884770, 97849029, 9997444, 28195055 ####[facility] [address] [place] [address] Potassium [Moles/Vol] 4.9 mmol/L Normal 3.5-5.[address] [facility] Comment on above: Performed By: #### 1 4987931, 5040088, 1542729, 70668964, 85653897, 5344842, 66676316 ####[facility] [address] [place] [address] Sodium [Moles/Vol] 137 mmol/L Normal 135-145 [facility] Comment on above: Performed By: #### 1 2503235, 2637065, 1336175, 95437522, 53546649, 0091159, 65609601 ####[facility] [address] [place] [address] Urea nitrogen [Mass/Vol] 55 mg/dL High 5-21 [facility] Comment on above: Performed By: #### 1 9876598, 1588338, 3478281, 99482395, 82487167, 7940351, 32858955 ####[facility] [address] [place] [address] Urea nitrogen/Creatinine [Mass ratio] 22 No Units High 10-20 [facility] Comment on above: Performed By: #### 1 4437461, 0256843, 5156969, 04006411, 30722967, 0933244, 98531996 ####[facility] [address] [place] [address] BNPon 08-27-2023 Natriuretic peptide B (Bld) [Mass/Vol] 79 pg/mL Normal 5-80 [facility] Comment on above: Performed By: #### 1 5363647, 7948751, 4225515, 05571312, 45978108, 3473530, 67074334 ####[place] [address] [place] [address] CBC w/ Auto Diffon Basophils/100 WBC (Bld) 1.4 % Normal 0.0-2.0 [facility] Comment on above: Performed By: #### 1 2662585, 5194498, 8813267, 15313010, 27619267, 6061975, 22033550 ####[place] [address] [place] [address] Basophils/Leukocytes Auto (Bld) [Pure # fraction] 0.1 E9/L Normal 0.0-0.2 [facility] Comment on above: Performed By: #### 1 5483289, 0139423, 3122147, 52538192, 27221863, 1657028, 83756850 ####[place] [address] [place] [address] Eosinophils (Bld) [#/Vol] 0.3 E9/L Normal 0.0-0.5 [facility] Comment on above: Performed By: #### 1 9202022, 6857097, 4616535, 59308502, 74914880, 1470900, 40054818 ####[address] [address] Eosinophils/100 WBC (Bld) 3.6 % Normal 0.0-8.0 [facility] Comment on above: Performed By: #### 1 2994216, 5122548, 1321221, 56340372, 99756436, 5413528, 13299650 ####[place] [address] [place] [address] Erythrocyte distribution width (RBC) [Ratio] 16.5 % High 10.9-14.2 [facility] Comment on above: Performed By: #### 1 8818404, 3606168, 2191149, 52640128, 63130259, 2443846, 47630496 ####[address] [address] Hematocrit (Bld) [Volume fraction] 33.3 % Low 37.7-49.0 [facility] Comment on above: Performed By: #### 1 8021503, 1390723, 4543548, 92560181, 14264772, 2169681, 99823019 ####[address] [address] Hemoglobin (Bld) [Mass/Vol] 10.9 g/dL Low 13.5-17.5 [facility] Comment on above: Performed By: #### 1 8020747, 7639456, 5451671, 82935016, 30893551, 7352052, 90138852 ####[address] [address] Lymphocytes (Bld) [#/Vol] 1.9 E9/L Normal 1.0-4.0 [facility] Comment on above: Performed By: #### 1 5019631, 8318907, 6219143, 16572077, 45795908, 3046449, 69080741 ####[address] [address] Lymphocytes/100 WBC (Bld) 23.6 % Normal 14.0-50.0 [facility] Comment on above: Performed By: #### 1 2254699, 4503650, 3474092, 93192265, 40751198, 0171570, 66593477 ####[address] [place] [address] MCH (RBC) [Entitic mass] 28.2 pg Normal 27.0-34.0 [facility] Comment on above: Performed By: #### 1 4822870, 2493450, 6685170, 02962734, 72788775, 4801933, 64393975 ####[place] [address] MCHC (RBC) [Mass/Vol] 32.6 g/dL Normal 31.4-36.[address] [facility] Comment on above: Performed By: #### 1 4085325, 4136868, 8664630, 03551551, 87912604, 2356526, 32611035 ####[place] [address] MCV (RBC) [Entitic vol] 86.4 fL Normal 80.0-100.0 [facility] Comment on above: Performed By: #### 1 7628548, 3778805, 9676538, 76553297, 82202183, 0560040, 68121436 ####[place] [address] Monocytes (Bld) [#/Vol] 0.6 E9/L Normal 0.2-1.0 [facility] Comment on above: Performed By: #### 1 3061771, 1352820, 8255784, 60407041, 48788795, 4648462, 77749199 ####[address] [address] Neutrophils (Bld) [#/Vol] 5.2 E9/L Normal 2.0-7.5 [facility] Comment on above: Performed By: #### 1 1534002, 9476733, 2513792, 02513786, 33606489, 3955834, 78010765 ####[address] [address] Neutrophils/100 WBC (Bld) 63.7 % Normal 36.0-75.0 [facility] Comment on above: Performed By: #### 1 7368012, 5856046, 5698091, 68164634, 88197944, 0788827, 44556628 ####[facility] [address] [place] [address] Platelet 274.0 E9/L Normal 150.0-500. 0 [facility] Comment on above: Performed By: #### 1 4545221, 0818803, 9328272, 61336448, 57579867, 8783964, 17178191 ####[facility] [address] [place] [address] Platelet mean volume (Bld) [Entitic vol] 7.1 fL Normal 6.4-10.8 [facility] Comment on above: Performed By: #### 1 7240936, 5472885, 1048760, 02841258, 49709779, 3714981, 49831845 ####[place] [address] RBC (Bld) [#/Vol] 3.9 E12/L Low 4.3-5.9 [facility] Comment on above: Performed By: #### 1 6064777, 4559124, 6562041, 40850243, 36720187, 3820138, 97123372 ####[place] [address] [place] [address] WBC corrected for nucl RBC Auto (Bld) [#/Vol] 8.1 E9/L Normal 4.0-11.0 [facility] Comment on above: Performed By: #### 1 8992467, 8540078, 0641985, 09342154, 70691142, 7592743, 36794118 ####[facility] [address] [place] [address] CHEMISTRYOrdered By: SYSTEM SYSTEM on 08-27-2023 Troponin [...] 79 pg/mL Normal 5 - 80 pg/mL [facility] HemeManSS COAGULATIONOrdered By: Jerrell Corey on 08-27-2023 aPTT Coag (PPP) [Time] 39.2 s High 25.1 - 36.5 second(s) [facility] Auto Coag Comment on above: Interpretive Data: [...] the same coagulation reagent and instrumentation as [facility]. Currently there are no coagulation studies available worldwide for children to 14 days, and no normal ranges. Heparin therapeutic range (represented by Anti-Factor Xa activity of 0.2 - 0.4 U/mL) corresponds to PTT of 56.6 - 109.0 sec. INR Coag (PPP) [Relative time] 1.38 {INR} Invalid Interpretation Code [facility] Auto Coag Comment on above: Interpretive Data: I NR results are specifically intended to assess patients stabilized on long-term Anticoagulation therapy suggested INR s Less Intensive Anticoagulation 2.0 3.0 Conventional Range 3.0 4.5 PT Coag (PPP) [Time] 15.5 s High 9.4 - 1 2.5 second(s) [facility] Auto Coag Comment on above: Interpretive Data: [...] the same coagulation reagent and instrumentation as [facility]. Currently there are no coagulation studies available worldwide for children to 14 days, and no normal ranges. Consent for Treatmenton 08-03 Consent for Treatment [id number] Normal [facility] ED Note-Physicianon 08-27-19 ED Note-Physician Basic Information Time Seen: Srinivasa Courtney DO 08/27/2023 20:39 Chief Complaint SOB and weakness [...] and Complexity of Problems Differential Diagnosis: [] [facility] Data External documents reviewed: [] My [...] Therapy PT & PTT Rapid COVID Antigen ([facility]) Saline Lock Insert Troponin 0 Hr. Troponin [...] of bladder cancer Hyperlipidemia, unspecified Hypertension Hypothyroid assisted (current) use of insulin Morbid obesity Obesity [...] Diabetic fo (more content not included)... Normal [facility] Comment on above: Result Comment: Elec tronically Signed By: Srinivasa Courtney DO\Date and Time Signed: 08/27/23 23:01 EDT HEMATOLOGYOrdered [...] 11.0 E9/L Remisol Heme Influenza A&B Agon Influenzae A Ag Negative Normal Negative [facility] Comment on above: Performed By: #### 4 [id number], [id number] #### [facility] [address] [place] [address] Influenzae B Ag Negative Normal Negative [facility] Comment on above: Result Comment: Test sensitivity and specificity vary for age group, specimen type, antigen types, and prevalence of disease. Test results must be evaluated in conjunction with other clinical data available to the physician. Individuals who received nasally administered Influenza A vaccine may have positive test results up to 3 days after vaccination. Performed By: #### 4 [id number], [id number] #### [facility] [address] [place] [address] MICRO OTHER TESTSOrdered By: Jerrell Corey on 08-27-2023 Influenzae A Ag Negative (08/27/23 9:02 PM) Normal Negative [facility] Man Sero Influenzae B Ag Negative 2 (08/27/23 9:02 PM) Normal Negative [facility] Man Sero Comment on above: Interpretive Data: T [...] NEG Ctl Pass (08/27/23 9:02 PM) Normal [facility] Man Sero Rapid COV Int POS Ctl Pass (08/27/23 9:02 PM) Normal [facility] Man Sero SARS-CoV+SARS-CoV-2 (COVID-19) Ag IA.rapid Ql (Resp) Not Detected 12 (08/27/23 9:02 PM) Normal Not Detected [facility] Emeka Sero Comment on above: Interpretive Data: [employer] Veritor System for Rapid Detection of SARS-CoV-2 [...] 08-27-2023 Magnesium [Mass/Vol] 2.3 mg/dL Normal 1.3-2.4 [facility] Comment on above: Performed By: #### 1 1198139, 7774937, 1132516, 90916460, 49463535, 0690421, 48680037 ####[facility] [address] [place] [address] PT & PTTon 08-27-2023 aPTT Coag (PPP) [Time] 39.2 second(s) High 25.1-36.5 [facility] Comment on above: Result Comment: Para [...] the same coagulation reagent and instrumentation as [facility]. Currently there are no coagulation studies available worldwide for children to 14 days, and no normal ranges. Heparin therapeutic range (represented by Anti-Factor Xa activity of 0.2 - 0.4 U/mL) corresponds to PTT of 56.6 - 109.0 sec. Performed By: #### 1 8812899, 7375107, 3204658, 09707788, 96168089, 4035200, 81905589 ####[facility] [address] [place] [address] INR Coag (PPP) [Relative time] 1.38 {INR} Invalid Interpretation Code [facility] Comment on above: Result Comment: INR results are specifically intended to assess patients stabilized on long-term Anticoagulation therapy suggested INR?s ?Less Intensive Anticoagulation? 2.0 ? 3.0 Conventional Range 3.0 ? 4.5 Performed By: #### 1 [id number], [id number], [id number], [id number], [id number], [id number], [id number] ####[facility] [address] [place] [address] PT Coag (PPP) [Time] 15.5 second(s) High 9.4-12.5 [facility] Comment on above: Result Comment: 15 [...] the same coagulation reagent and instrumentation as [facility]. Currently there are no coagulation studies available worldwide for children to 14 days, and no normal ranges. Performed By: #### 1 [id number], 2413440, 2292358, [id number], [id number], 1525926, [id number] ####[facility] [address] [place] [address] Rapid COVID Antigen ([facility])on 08-27-2023 Rapid COV Int NEG Ctl Pass Normal Fis [facility] Comment on above: Performed By: #### 4 [id number], [id number] #### [facility] [address] [place] [address] Rapid COV Int POS Ctl Pass Normal Fis [facility] Comment on above: Performed By: #### 4 [id number], [id number] #### [facility] [address] [place] [address] SARS-CoV+SARS-CoV-2 (COVID-19) Ag IA.rapid Ql (Resp) Not detected Normal Not Detected [facility] Comment on above: Result Comment: The [employer] Veritor? System for Rapid Detection of SARS-CoV-2 [...] other viruses or pathogens; and, in the [facility], this test is only authorized for the duration of the declaration that circumstances exist justifying the authorization of emergency use of in vitro diagnostics for detection and/or diagnosis of the virus that causes COVID-19 under Section 564(b)(1) of the Act, 21 U.S.C. ? 360bbb-3(b)(1), unless the authorization is terminated or revoked sooner. Performed By: #### 4 [id number], [id number] #### [facility] [address] [place] [address] Troponin 0 Hr.on 08-27-2023 Troponin 18.90 pg/mL Normal 15.90-38.4 0 [facility] Comment on above: Result Comment: The 95% CI (Confidence Interval) PPV (Positive Predictive Value) for myocardial infarction in females is 38 pg/mL, in males 51 pg/mL. The results should be used in conjunction with clinical conditions of myocardial infarction. (Access High Sensitivity Troponin I Instructions For Use, [employer], January 2018) Performed By: #### 1 [id number], [id number], 4932541, [id number], [id number], [id number], [id number] ####[facility] [address] [place] [address] Troponin 3 Hr.on 08-27-2023 Troponin 18.60 pg/mL Normal 15.90-38.4 0 [facility] Comment on above: Result Comment: The 95% CI (Confidence Interval) PPV (Positive Predictive Value) for myocardial infarction in females is 38 pg/mL, in males 51 pg/mL. The results should be used in conjunction with clinical conditions of myocardial infarction. (Access High Sensitivity Troponin I Instructions For Use, [employer], January 2018) Performed By: #### 2 [id number], [id number], 0833794, 2665727, 2609259, 4154611, [id number] #### [facility] [address] [place] [address] eGFRon 08-27-2023 eGFR 26 mL/min/1.73 m2 Low >=59 [facility] Comment on above: Order Comment: Order added by Discern Expert. Performed By: #### 1 [id number], 2383354, 7193994, 55054216, 80789199, 7878744, [id number] ####[facility] [address] [place] [address] C. diff by PCRon 08-11-2023 Clostridium difficile by PCR Negative Normal Negative [facility] Comment on above: Order Comment: Order added by Discern Expert. Result Comment: This test result should be correlated with clinical presentations and medical history by a healthcare provider to determine its clinical significance. Performed By: #### 4 [id number], [id number] #### [facility] [address] [place] [address] CDiff PCRon 08-11-2023 C. difficile toxin A+B Ql (Stl) No, PCR to follow Normal [facility] Comment on above: Performed By: #### 4 [id number], [id number] #### [facility] [address] [place] [address] No Panel Informationon 08-10 Clostridium difficile (PCR)(LAB) Specimen Negative for toxigenic C. difficile by DNA amplification. Negative [facility] Clostridium Difficile Toxin A & B Acceptable [facility] Physician Orderon 08-11-2023 Physician Order [id number]#1.00TIFF Normal [facility] CDiff PCRon 07-26-2023 Cdiff Specimen Acceptable Unacceptable Normal [facility] Comment on above: Performed By: #### 4 [id number], [id number] #### [facility] [address] [place] [address] Order Cancelled YES Normal [facility] Comment on above: Performed By: #### 4 [id number], [id number] #### [facility] [address] [place] [address] No Panel Informationon 07-26 Cancelled Test [facility] Clostridium difficile Note Unacceptable [facility] Physician Orderon 07-26-2023 Physician Order [id number]#1.00TIFF Normal [facility] CDiff PCRon 07-18-2023 Cdiff Specimen Acceptable Unacceptable Normal [facility] Comment on above: Performed By: #### 3 [id number] #### [facility] [address] [place] [address] Order Cancelled YES [facility] Comment on above: Performed By: #### 3 [id number] #### [facility] [address] [place] [address] No Panel Informationon 07-18 Cancelled Test [facility] Clostridium difficile Note Unacceptable [facility] Physician Orderon 07-18-2023 Physician Order [id number]#1.00TIFF Normal [facility] Consent for Procedure/Surger yon 07-17-2023 Consent for Procedure/Surgery [id number]#1.00TIFF Normal [facility] Consent for Treatmenton 07-05 Consent for Treatment [id number]#1.00TIFF [facility] IntraOperative Documentson 0 07-17-2023 IntraOperative Documents [id number]#1.00TIFF [facility] Main OR Intraoperative Recor don 07-17-2023 Main OR Intraoperative Record IntraOp Document Type FTURO Summary Primary Physician: Andi WARE MD Finalized Date/Time: 07/17/23 09:58:15 Pt. Name: JOSÉ LUIS FAULKNER/Sex: 1950 Male Med Rec #: [id number] Physician: Andi WARE MD Financial #: [id number] Pt. Type: O Room/Bed: / Admit/Disch: 07/17/23 08:59:19 - Institution: Case Times FTURO Entry 1 Patient Times In Room 07/17/23 09:46:00 Out Room 07/17/23 10:00:00 Procedure Times Start 07/17/23 09:52:00 Stop 07/17/23 09:57:00 Anesthesia Times Last Modified By: Lavon MCCLELLAND, IRAIDA, Genie 07/17/23 09:55:44 Case Attendance FTURO Entry 1 Entry 2 Entry 3 Case Attendee MIGUELINA BROUSSARD, Andi Doll RN, CNOR, Katheryn SOLIS, Maxine Prescott Role Performed Surgeon - Primary Shirt Marker - Primary Scrub - Primary Time In 07/17/23 09:46:00 07/17/23 09:46:00 07/17/23 09:46:00 Time Out 07/17/23 10:00:00 07/17/23 10:00:00 07/17/23 10:00:00 Procedure CYSTOSCOPY LOCAL(.) CYSTOSCOPY LOCAL(.) CYSTOSCOPY LOCAL(.) Comments Last Modified By: Lavon RN, CNOR, Lavon RN, CNOR, Lavon RN, BIBOR, Genie 07/17/23 Genie 07/17/23 Genie 07/17/23 09:55:51 09:55:51 [...] Andi WARE MD, Verified (If Participants Katheryn RUST, Maxine Applicable) Lavon Monroy RN, CNOR, Ruthann [...] 07/17/23 09:58:13 Case Comments Finalized By: IRAIDA Doll RN, Ruthann Document Signatures Signed By: IRAIDA Doll RN, Ruthann 07/17/23 09:58 Normal [facility] Main OR Preoperative Recordo n 07-17-2023 Main OR Preoperative Record Holding Area Document Type FTURO Summary Primary Physician: Andi WARE MD Finalized Date/Time: 07/17/23 09:47:41 Pt. Name: JOSÉ LUIS FAULKNER/Sex: 1950 Male Med Rec #: [id number] Physician: Andi WARE MD Financial #: [id number] Pt. Type: O Room/Bed: / Admit/Disch: 07/17/23 [...] Complaints of Pain: No Skin Integrity Intact, [place], Warm, & Dry Vitals - EU Blood Pressure 162/67 Pulse 60 bpm Respirations 18 br/min SPO2 97 % Additional MIKE RN Reviewed Yes Specimens Collected Last Modified By: IRAIDA Doll RN, Ruthann 07/17/23 09:47:38 Finalized By: IRAIDA Doll RN, Ruthann Document Signatures Signed By: Dharmesh REYNOLDS Darlene Jacob 07/17/23 09:32 IRAIDA Doll RN, Ruthann 07/17/23 09:47 Normal [facility] Operative Reporton Operative Report Patient: JOSÉ [...] with antibiotic coverage, Follow up arranged. Normal [facility] Comment on above: Result Comment: Elec tronically Signed By: Andi WARE MD\.br\Date and Time Signed: 07/17/23 09:59 EST [facility] ([facility])on 07-17-2023 [facility] Method of Extraction Bladder Wash Normal [facility] Comment on above: Performed By: #### 1 [id number] ####[facility] [address] [place] [address] [facility] Number of Jars 1 Invalid Interpretation Code [facility] Comment on above: Performed By: #### 1 [id number] ####[facility] [address] [place] [address] [facility] Specimen Urine Normal [facility] Comment on above: Performed By: #### 1 [id number] ####[facility] [address] [place] [address] [facility] Type of Service Technical Only Normal [facility] Comment on above: Performed By: #### 1 [id number] ####[facility] [address] [place] [address] Alanine aminotransferase [En zymatic activity/volume] in Serum or PlasmaOrdered By: Cayden Petty on 06-17-2023 ALT [Catalytic activity/Vol] 19 U/L Normal 7-52 [facility] Comment on above: Performed By: #### C K, BNP, HS TROP, CBC, CMP #### [facility] [address] [place] [address] [place] Albumin [Mass/volume] in Ser um or Plasma by Bromocresol green (BCG) dye binding methoOrdered By: Cayden Petty on 06-17-2023 Albumin BCG dye [Mass/Vol] 4.1 g/dL 3.5-5.7 [facility] Alkaline phosphatase [Enzyma tic activity/volume] in Serum or PlasmaOrdered By: Cayden Petty on 06-17-2023 ALP [Catalytic activity/Vol] 88 U/L Normal 34-104 [facility] Comment on above: Performed By: #### C K, BNP, HS TROP, CBC, CMP #### [facility] [address] [place] [address] [place] Aspartate aminotransferase [ Enzymatic activity/volume] in Serum or PlasmaOrdered By: Cayden Petty on 06-17-2023 AST [Catalytic activity/Vol] 14 U/L Normal 13-39 [facility] Comment on above: Performed By: #### C K, BNP, HS TROP, CBC, CMP #### [facility] [address] [place] [id number] [place] Automated basophil %Ordered By: Cayden Petty on 06-17-2023 Basophils/100 WBC (Bld) 1.0 % Normal . [facility] Comment on above: Performed By: #### C K, BNP, HS TROP, CBC, CMP #### [address] Automated basophil countOrde red By: Cayden Petty on 06-17-2023 Basophils (Bld) [#/Vol] 0.1 10*3/uL Normal 0.0-0.2 [facility] Comment on above: Result Comment: PERF ORMED BY: [place] [address] PATHOLOGIST FLIGHT SURVEYOR ANUSHA MANCUSO M.D. Performed By: #### C K, BNP, HS TROP, CBC, CMP #### [address] Automated blood monocyte cou ntOrdered By: Cayden Petty on 06-17-2023 Monocytes (Bld) [#/Vol] 0.5 10*3/uL Normal 0.0-0.8 [facility] Comment on above: Performed By: #### C K, BNP, HS TROP, CBC, CMP #### [address] Automated eosinophil %Ordere d By: Cayden Petty on 06-17-2023 Eosinophils/100 WBC (Bld) 3.3 % Normal . [facility] Comment on above: Performed By: #### C K, BNP, HS TROP, CBC, CMP #### [address] Automated eosinophil countOr dered By: Cayden Petty on 06-17-2023 Eosinophils (Bld) [#/Vol] 0.2 10*3/uL Normal 0.0-0.45 [facility] Comment on above: Performed By: #### C K, BNP, HS TROP, CBC, CMP #### [address] Automated monocyte %Ordered By: Cayden Petty on 06-17-2023 Monocytes/100 WBC (Bld) 6.7 % Normal . [facility] Comment on above: Performed By: #### C K, BNP, HS TROP, CBC, CMP #### [address] Automated neutrophil %Ordere d By: Cayden Petty on 06-17-2023 Neutrophils/100 WBC (Bld) 72.9 % Normal . [facility] Comment on above: Performed By: #### C K, BNP, HS TROP, CBC, CMP #### [address] BNP ser/plasOrdered By: Cayden Petty on 06-17-2023 Natriuretic peptide B (Bld) [Mass/Vol] 271.0 pg/mL High 5-100 [facility] Comment on above: Result Comment: PERF ORMED BY: [place] [address] PATHOLOGIST FLIGHT SURVEYOR ANUSHA MANCUSO M.D. Performed By: #### C K, BNP, HS TROP, CBC, CMP #### [address] Bilirubin.total [Mass/volume ] in Serum or PlasmaOrdered By: Cayden Petty on 06-17-2023 Bilirubin [Mass/Vol] 0.4 mg/dL Normal 0.3-1.0 [facility] Comment on above: Performed By: #### C K, BNP, HS TROP, CBC, CMP #### [address] Calcium [Mass/volume] in Ser um or PlasmaOrdered By: Cayden Petty on 06-17-2023 Calcium [Mass/Vol] 8.6 mg/dL Normal 8.6-10.3 [facility] Comment on above: Performed By: #### C K, BNP, HS TROP, CBC, CMP #### [address] Carbon dioxide, total [Moles /volume] in Serum or PlasmaOrdered By: Cayden Petty on 06-17-2023 CO2 [Moles/Vol] 23.4 mmol/L Normal 21.0-31.0 [facility] Comment on above: Performed By: #### C K, BNP, HS TROP, CBC, CMP #### [address] Chloride [Moles/volume] in S annalise or PlasmaOrdered By: Cayden Petty on 06-17-2023 Chloride [Moles/Vol] 105 mmol/L Normal 98-107 [facility] Comment on above: Performed By: #### C K, BNP, HS TROP, CBC, CMP #### [address] Complete Blood Count Auto Di ffon 06-17-2023 Mean Corpuscular HGB Conc 32.5 g/dL Normal 32.5-35.6 [facility] Comment on above: Performed By: #### C K, BNP, HS TROP, CBC, CMP #### [address] Monocytes/100 WBC (Bld) 16.93 % Normal 0.00-20.00 [facility] Comment on above: Performed By: #### C K, BNP, HS TROP, CBC, CMP #### [address] NRBC% 0.1 /100{WBC} Normal 0-0.5 [facility] Comment on above: Performed By: #### C K, BNP, HS TROP, CBC, CMP #### [address] Comprehensive Metabolic Pane victor m 06-17-2023 Albumin [Mass/Vol] 4.1 g/dL Normal 3.5-5.7 [facility] Comment on above: Performed By: #### C K, BNP, HS TROP, CBC, CMP #### [address] Creatinine Clr Calc Pharmacy 51.38 Normal [facility] Comment on above: Result Comment: PERF ORMED BY: [place] [address] PATHOLOGIST FLIGHT SURVEYOR ANUSHA MANCUSO M.D. Performed By: #### C K, BNP, HS TROP, CBC, CMP #### [address] GFR/1.73 sq M.predicted MDRD (S/P/Bld) [Vol rate/Area] 49.339 mL/min/{1.73_m2} Normal [facility] Comment on above: Performed By: #### C K, BNP, HS TROP, CBC, CMP #### [facility] [address] Creatine kinase [Enzymatic a ctivity/volume] in Serum or PlasmaOrdered By: Cayden Petty on 06-17-2023 CK [Catalytic activity/Vol] 33 U/L Normal 30-223 [facility] Comment on above: Performed By: #### C K, BNP, HS TROP, CBC, CMP #### [address] Creatinine [Mass/volume] in Serum or PlasmaOrdered By: Cayden Petty on 06-17-2023 Creatinine [Mass/Vol] 1.48 mg/dL High 0.70-1.30 [facility] Comment on above: Performed By: #### C K, BNP, HS TROP, CBC, CMP #### [address] ECG 12 lead ECGon 06-17-2023 ECG 12 lead ECG [facility] [place] [address] [place] [address] Electrocardiograph Report Signed Patient: José Luis Faulkner MR#: [id number] : 1950 Acct:[id number] Age/Sex: 72 / M ADM Date: 06/17/23 Loc: ER Room: Type: [facility] ER Attending Dr: Ordering Provider: Cayden [...] Cayden Petty MD 06/18/23 0009 Normal [facility] Erythrocyte distribution wid th [Ratio] by Automated countOrdered By: Cayden Petty on 06-17-2023 Erythrocyte distribution width (RBC) [Ratio] 16.6 % High 12.0-14.8 [facility] Comment on above: Performed By: #### C K, BNP, HS TROP, CBC, CMP #### [facility] [address] Erythrocytes [#/volume] in B lood by Automated countOrdered By: Cayden Petty on 06-17-2023 RBC (Bld) [#/Vol] 3.44 10*6/uL Low 3.90-5.60 [facility] Comment on above: Performed By: #### C K, BNP, HS TROP, CBC, CMP #### [facility] [address] [place] [address] [place] Glucose [Mass/volume] in Ser um or PlasmaOrdered By: Cayden Petty on 06-17-2023 Glucose [Mass/Vol] 240 mg/dL High 70-100 [facility] Comment on above: ADA recommended refe rence rangeRandom Glucose Reference Range is dependent on time and content of last meal. Glucose of more than 200 mg/dL in a nonstressed, ambulatory subject supports the diagnosis of Diabetes Mellitus. Result Comment: [place] om Glucose Reference Range is dependent on time and content of last meal. Glucose of more than 200 mg/dL in a nonstressed, ambulatory subject supports the diagnosis of Diabetes Mellitus. ADA recommended reference range Performed By: #### C K, BNP, HS TROP, CBC, CMP #### [facility] [address] [place] [id number] [place] Hematocrit [Volume Fraction] of Blood by Automated countOrdered By: Cayden Petty on 06-17-2023 Hematocrit (Bld) [Volume fraction] 29.7 % Low 38.8-50.0 [facility] Comment on above: Performed By: #### C K, BNP, HS TROP, CBC, CMP #### [address] Hemoglobin [Mass/volume] in BloodOrdered By: Cayden Petty on 06-17-2023 Hemoglobin (Bld) [Mass/Vol] 9.6 g/dL Low 13.0-17.0 [facility] Comment on above: Performed By: #### C K, BNP, HS TROP, CBC, CMP #### [address] Leukocytes [#/volume] correc [place] for nucleated erythrocytes in Blood by Automated counOrdered By: Cayden Petty on 06-17-2023 WBC corrected for nucl RBC Auto (Bld) [#/Vol] 7.5 10*3/uL 4.1-10.5 [facility] Leukocytes [#/volume] in Blo od by Automated countOrdered By: Cayden Petty on 06-17-2023 WBC (Bld) [#/Vol] 7.5 10*3/uL Normal 4.1-10.5 [facility] Comment on above: Performed By: #### C K, BNP, HS TROP, CBC, CMP #### [address] Lymphocytes [#/volume] in Bl ood by Automated countOrdered By: Cayden Petty on 06-17-2023 Lymphocytes (Bld) [#/Vol] 1.2 10*3/uL Normal 1.00-4.8 [facility] Comment on above: Performed By: #### C K, BNP, HS TROP, CBC, CMP #### [address] Lymphocytes/100 leukocytes i n Blood by Automated countOrdered By: Cayden Petty on 06-17-2023 Lymphocytes/100 WBC (Bld) 16.1 % Normal . [facility] Comment on above: Performed By: #### C K, BNP, HS TROP, CBC, CMP #### [address] [place] [address] [place] MCH [Entitic mass] by [employer] [place] countOrdered By: Cayden Petty on 06-17-2023 MCH (RBC) [Entitic mass] 28.0 pg Normal 27.5-35.2 [facility] Comment on above: Performed By: #### C K, BNP, HS TROP, CBC, CMP #### [facility] [address] [place] [address] MCHC Auto (RBC) [Mass/Vol]Or dered By: Cayden Petty on 06-17-2023 MCHC (RBC) [Mass/Vol] 32.5 g/dL 32.5-35.6 [facility] MCV [Entitic volume] by Auto mated countOrdered By: Cayden Petty on 06-17-2023 MCV (RBC) [Entitic vol] 86.2 fL Normal 83.5-101 [facility] Comment on above: Performed By: #### C K, BNP, HS TROP, CBC, CMP #### [facility] [address] [place] [address] Monocyte distribution width [Entitic volume] in Blood by AutomatedOrdered By: Cayden Petty on 06-17-2023 Monocyte distribution width Auto (Bld) [Entitic vol] 16.93 % 0.00-20.00 [facility] Neutrophils [#/volume] in Bl ood by Automated countOrdered By: Cayden Petty on 06-17-2023 Neutrophils (Bld) [#/Vol] 5.5 10*3/uL Normal 1.8-7.7 [facility] Comment on above: Performed By: #### C K, BNP, HS TROP, CBC, CMP #### [facility] [address] [place] [address] No Panel InformationOrdered By: Cayden Petty on 06-17-2023 Estimated GFR (CKD-EPI) 49.339 mL/Min [facility] Creatinine Clearance (Chem 51.38 [facility] Nucleated erythrocytes [Pres ence] in Blood by Automated countOrdered By: Cayden Petty on 06-17-2023 Nucleated RBC Auto Ql (Bld) 0.1 /100{WBC} 0-0.5 [facility] Platelet mean volume [Entiti c volume] in Blood by Automated countOrdered By: Cayden Petty on 06-17-2023 Platelet mean volume (Bld) [Entitic vol] 7.1 fL Normal 6.6-10.1 [facility] Comment on above: Performed By: #### C K, BNP, HS TROP, CBC, CMP #### [facility] [address] Platelets [#/volume] in Bloo d by Automated countOrdered By: Cayden Petty on 06-17-2023 Platelets (Bld) [#/Vol] 286 10*3/uL Normal 150-450 [facility] Comment on above: Performed By: #### C K, BNP, HS TROP, CBC, CMP #### [address] Potassium [Moles/volume] in Serum or PlasmaOrdered By: Cayden Petty on 06-17-2023 Potassium [Moles/Vol] 4.6 mmol/L Normal 3.5-5.1 [facility] Comment on above: Performed By: #### C K, BNP, HS TROP, CBC, CMP #### [facility] [address] [place] [address] Protein [Mass/volume] in Ser um or PlasmaOrdered By: Cayden Petty on 06-17-2023 Protein [Mass/Vol] 7.2 g/dL Normal 6.4-8.9 [facility] Comment on above: Performed By: #### C K, BNP, HS TROP, CBC, CMP #### [facility] [address] [place] [address] Serum globulin measurement b y calculation (mass/volume)Ordered By: Cayden Petty on 06-17-2023 Globulin (S) [Mass/Vol] 3.1 g/dL Normal [facility] Comment on above: Performed By: #### C K, BNP, HS TROP, CBC, CMP #### [address] Serum or plasma albumin/glob ulin mass ratioOrdered By: Cayden Petty on 06-17-2023 Albumin/Globulin [Mass ratio] 1.3 {ratio} Normal [facility] Comment on above: Performed By: #### C K, BNP, HS TROP, CBC, CMP #### [address] Serum or plasma anion gap de terminationOrdered By: Cayden Petty on 06-17-2023 Anion gap [Moles/Vol] 15.2 mmol/L High 6.0-15.0 [facility] Comment on above: Performed By: #### C K, BNP, HS TROP, CBC, CMP #### [address] Sodium [Moles/volume] in Ser um or PlasmaOrdered By: Cayden Petty on 06-17-2023 Sodium [Moles/Vol] 139 mmol/L Normal 136-145 [facility] Comment on above: Performed By: #### C K, BNP, HS TROP, CBC, CMP #### [address] Troponin I High Sensitivityo n 06-17-2023 Troponin I High Sensitivity 14.5 pg/mL Normal 0.0-20.0 [facility] Comment on above: Result Comment: PERF ORMED BY: [place] [address] PATHOLOGIST FLIGHT SURVEYOR ANUSHA MANCUSO M.D. Performed By: #### C K, BNP, HS TROP, CBC, CMP #### [address] Troponin I.cardiac [Mass/vol ume] in Serum or Plasma by Detection limit <= 0.01 ng/Ordered By: Cayden Petty on 06-17-2023 Troponin I.cardiac DL <= 0.01 ng/mL [Mass/Vol] 14.5 pg/mL 0.0-20.0 [facility] Urea nitrogen [Mass/volume] in Serum or PlasmaOrdered By: Cayden Petty on 06-17-2023 Urea nitrogen [Mass/Vol] 18 mg/dL Normal 7-25 [facility] Comment on above: Performed By: #### C K, BNP, HS TROP, CBC, CMP #### [facility] [address] [place] [address] [facility] XR chest 1V portableon 06-17 XR chest 1V portable [facility] Main [place] [address] [place] [id number] XRay Report Signed Patient: José Luis Faulkner MR#: [id number] : 1950 Acct:[id number] Age/Sex: 72 / M ADM Date: 06/17/23 Loc: ER Room: Type: [facility] ER Attending Dr: Copies to: Cayden [...] Carmen Liu M.D.06/17/2023 4:49 PM Dictation Location: [place] [address] Transcribed By: [facility] 06/17/231648 Dictated By: Carmen Liu II, MD 06/17/231645 Signed By: 06/17/23 164 Normal [facility] BMPon 06-12-2023 Anion gap [Moles/Vol] 13 mmol/L Normal 6-[address] [facility] Comment on above: Performed By: #### 4 [id number] #### [facility] [address] [place] [address] BUN/Creat Ratio 15 No Units Normal 10-20 [facility] Comment on above: Performed By: #### 4 [id number], [id number] #### [facility] [address] [place] [address] Calcium [Mass/Vol] 8.9 mg/dL Normal 8.9-11.1 [facility] Comment on above: Performed By: #### 4 [id number], [id number] #### [facility] [address] [place] [address] Chloride [Moles/Vol] 104 mmol/L Normal 101-111 [facility] Comment on above: Performed By: #### 4 [id number], [id number] #### [facility] [address] [place] [address] CO2 [Moles/Vol] 30 mmol/L Normal 21-31 [facility] Comment on above: Performed By: #### 4 [id number], [id number] #### [facility] [address] [place] [address] Creatinine [Mass/Vol] 1.3 mg/dL Normal 0.5-1.[address] [facility] Comment on above: Performed By: #### 4 [id number], [id number] #### [facility] [address] [place] [address] Glucose [Mass/Vol] 151 mg/dL Normal 55-199 [facility] Comment on above: Performed By: #### 4 [id number], [id number] #### [facility] [address] [place] [address] Potassium [Moles/Vol] 4.4 mmol/L Normal 3.5-5.[address] [facility] Comment on above: Performed By: #### 4 [id number], [id number] #### [facility] [address] [place] [address] Sodium [Moles/Vol] 143 mmol/L Normal 135-145 [facility] Comment on above: Performed By: #### 4 [id number], [id number] #### [facility] [address] [place] [address] Urea nitrogen [Mass/Vol] 19 mg/dL Normal 5-21 [facility] Comment on above: Performed By: #### 4 [id number], [id number] #### [facility] [address] [place] [address] CHEMISTRYOrdered By: SYSTEM SYSTEM on 06-12-2023 Anion [...] Consent for Treatmenton Consent for Treatment [id number]#1.00TIFF Normal [facility] Physician Orderon 06-12-2023 Physician Order [id number]#1.00TIFF Normal [facility] eGFRon 06-12-2023 eGFR 57 mL/min/1.73 m2 Low >=59 [facility] Comment on above: Order Comment: Order added by Discern Expert. Performed By: #### 4 [id number], [id number] #### [facility] [address] [place] [address] Consent for Treatmenton 05-04 Consent for Treatment [id number]#1.00TIFF [facility] Consent for Treatmenton Consent for Treatment [id number]#1.00TIFF [facility] Oncology Noteon 04-12-2023 Oncology Note Oncology Care [...] also get CBC, CMP in 3 months. [facility] Comment on above: Result Comment: Elec [...] He was eventually cardioverted and returned to [facility]. He had a normal heart cath in [...] 1 tab(s), (more content not included)... Normal [facility] Consent for Treatmenton Consent for Treatment [id number]#1.00TIFF Normal [facility] Heart and Vascular Office/Cl inic Noteon [...] in his lower extremity edema after eating Bangladeshi food a few days ago. He is [...] for 30 day(s), 30 blister(s), Refill(s) 5, [facility] 1985, 177, cm, 04/09/23 9:40:00 [...] w/o Contrast Follow-up With When Contact Information Nicolás Diggs MD, PUL, AYAH Within 6 months Additional Instructions: Problem List/Past Medical History Ongoing Bipolar I disorder, mild, current or most recent episode depressed, in full remission, with mixed features Bladder cancer BPH with obstruction/lower urinary tract symptoms CAD (coronary artery disease) Carotid artery stenos (more content not included)... Normal [facility] Comment on above: Result Comment: Elec tronically Signed By: Nicolás Diggs MD\.br\Date and Time Signed: 04/09/23 10:21 EST Insurance Correspondenceon 1 06-09-2022 Insurance Correspondence [id number]#1.00TIFF [facility] ONC - Otheron 04-09-2023 ONC - Other [id number]#1.00TIFF [facility] Outside Labson 04-09-2023 Outside Labs [id number]#1.00TIFF [facility] Outside Labs [id number]#1.00TIFF [facility] Physician Orderon 04-09-2023 Physician Order [id number]#1.00TIFF [facility] ECG 12 Leadon 04-04-2023 Significant artifact due to tremor, atrial pacemaker rhythm with diffuse nonspecific ST and T changes [facility] Work Phone: Insurance Correspondenceon 1 Insurance Correspondence [id number]#1.00TIFF Normal [facility] CHEMISTRYOrdered By: SYSTEM SYSTEM on 03-02-2023 [...] [facility] CHEMISTRYOrdered By: SYSTEM SYSTEM on 11-24-2022 Creatinine [Mass/Vol] 1.3 mg/dL Normal 0.5 - 1.3 mg/dL FT Remisol GFR/1.73 sq M.predicted among non-blacks MDRD (S/P/Bld) [Vol rate/Area] 58 mL/min/1.73 m2 Low >=59mL/min /1.73 m2 [facility] S Urea nitrogen [Mass/Vol] 32 mg/dL High 5 - 21 mg/dL [facility] Remisol Office Visit (Neuro-Movement )on 11-20-2022 Follow-up [...] 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) Class [...] DIRECTED. Pant (more content not included)... Normal [facility] Follow-up visit Provider Impressions Venkatesh Gil [...] appropriate E/M code for this encounter is /84710,. Diagnoses/Problems Assessed Transient neurological symptoms (781.99) (R29.818) Parkinsonism (332.0) (G20) Orders Parkinsonism Renew: Carbidopa-Levodopa 25-100 MG Oral Tablet; TAKE 1.5 TABLET 4 times daily Transient neurological symptoms Neurolo (more content not included)... 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) Class 1 obesity with body mass index (BMI) of 32.0 to 32.9 in adult (278.00,V85.32) (E66.9,Z68.32) Former smoker (V15.82) (Z87.891) QUIT 11/2001 Abnormal involuntary movements (781.0) (R25.9) Orders Class 1 obesity with body mass index (BMI) of 32.0 to 32.9 in adult Healthy Weight Tips; Status:Complete - Retrospective Authorization; Done: [id number] Some eating tips that can help you lose weight.; Status:Complete - Retrospective Authorization; Done: [id number] Diabetes mellitus, Ischemic cardiomyopathy Start: Jardiance 10 MG Oral Tablet; TAKE 1 TABLET BY MOUTH ONCE DAILY Hypertension, essential, benign Renew: amLODIPine Besylate 5 MG Oral Tablet; TAKE 1 TABLET BY MOUTH EVERY DAY Hypothyroidism, adult Renew: Levothyroxine Sodium 150 MCG Oral Capsule; TAKE 1 CAPSULE BY MOUTH EVERY MORNING BEFORE BREAKFAST ON EMPTY STOMACH SocHx: Former smoker Tobacco Use Screening; Status:Complete; Done: [id number] Ventricular tachycardia (paroxysmal) IO EKG Electrocardiogram- 12 Lead; Status:Complete; Done: [id number] Patient Instructions Please bring all medicines, vitamins, [...] 6-7 months Device check as directed per [facility] protocol Chief Complaint JOSÉ LUIS GIL [...] medication with (more content not included)... Normal [employer] Tobacco Screening.on 023 Adult depression screening assessment No [facility] [email or web address] 600 DO Work Phone: Fall risk assessment a) No falls within the last year [facility] 600 DO Work Phone: Tobacco use status CPHS b) No [facility] 600 DO Work Phone: DATSCAN INJECTIONon 08-31-19 23 DATSCAN INJECTION Patient Name: JOSÉ LUIS GIL STUDY: DATSCAN INJECTION; DATSCAN IOFLUPANE IODINE 123; 08/30/2022 2:43 pm INDICATION: right rest tremor, asymmetric rigidity and bradykinesia. on Abilify, parkinson's disease vs drug-induced parkinsonism G20: Parkinsonism. COMPARISON: None. ACCESSION NUMBER(S): [id number]; [id number] ORDERING CLINICIAN: FRANCISCO CLINTON TECHNIQUE: DIVISION OF [...] study was interpreted at [facility], [place], [place]. Electronically signed by: MIRZA TRINH MD Normal [facility] No Panel Informationon 08-30 FINAL REPORT Interpreted by: MIRZA TRINH MD and LUCILA RODRIGUEZ MD 08/30/22 14:54 Patient Name: JOSÉ LUIS GIL STUDY: DATSCAN INJECTION; DATSCAN IOFLUPANE IODINE 123; 08/30/2022 2:43 pm INDICATION: right rest tremor, asy Normal [facility] Work Phone: Office Visit (Neuro-Movement [...] appropriate [place] [address] . Diagnoses/Problems Assessed Parkinsonism (332.0) (G20) Abnormal involuntary movements (781.0) (R25.9) RLS (restless legs syndrome) (333.94) (G25.81) Orders Atheroscle (more content not included)... Normal [employer] Activated partial thrombopla stin time (aPTT) in platelet poor plasma by coagulation aOrdered By: Andi Ware on 07-25-2022 aPTT Coag (PPP) [Time] 29.6 s 25.1-36.5 [facility] Glucose Glucometer (BldC) [M ass/Vol]Ordered By: Andi Ware on 07-25-2022 Glucose [Mass/Vol] 194 mg/dL [facility] Comment on above: Random Glucose Refer ence Range is dependent on time and content of last meal. Glucose of more than 200 mg/dL in a nonstressed, ambulatory subject supports the diagnosis of Diabetes Mellitus. Laboratory - CoagulationOrde red By: Andi Ware on 07-25-2022 PT Coag (PPP) [Time] 11.4 s 9.0-12.9 [facility] No Panel InformationOrdered By: Andi Ware on 07-25-2022 Bedside Glucose Comment Glu2: cleaned meter [facility] Platelet poor plasma interna tional normalized ratio (INR) by coagulation assay (relatOrdered By: Andi Ware on 07-25-2022 INR Coag (PPP) [Relative time] 1.0 {INR} [facility] Comment on above: INR Therapeutic [...] Coag (PPP) [Time] 34.3 s 25.1-36.5 Fi [facility] Basophils Auto (Bld) [#/Vol] Ordered By: Andi Ware on 07-11-2022 Basophils (Bld) [#/Vol] 0.1 10*3/uL 0.0-0.2 [facility] Basophils/100 WBC Auto (Bld) Ordered By: Andi Ware on 07-11-2022 Basophils/100 WBC (Bld) 1.0 % . [facility] Creatinine and Glomerular fi ltration rate.predicted panel (S/P/Bld)Ordered By: Andi Ware on 07-11-2022 Creatinine [Mass/Vol] 1.55 mg/dL 0.64-1.27 [facility] Eosinophils Auto (Bld) [#/Vo l]Ordered By: Andi Ware on 07-11-2022 Eosinophils (Bld) [#/Vol] 0.2 10*3/uL 0.0-0.45 [facility] Eosinophils/100 WBC Auto (Bl d)Ordered By: Andi Ware on 07-11-2022 Eosinophils/100 WBC (Bld) 2.9 % . [facility] Erythrocyte distribution wid th Auto (RBC) [Ratio]Ordered By: Andi Ware on 07-11-2022 Erythrocyte distribution width (RBC) [Ratio] 16.3 % 12.0-14.8 [facility] Estimated glomerular filtrat ion rate (GFR) non- AmericanOrdered By: Andi Ware on 07-11-2022 GFR/1.73 sq M.predicted among non-blacks MDRD (S/P/Bld) [Vol rate/Area] 44 mL/Min [facility] Hematocrit Auto (Bld) [Volum e fraction]Ordered By: Andi Ware on 07-11-2022 Hematocrit (Bld) [Volume fraction] 32.9 % 38.8-50.0 [facility] Hemoglobin [Mass/volume] in BloodOrdered By: Andi Ware on 07-11-2022 Hemoglobin (Bld) [Mass/Vol] 10.8 g/dL 13.0-17.0 [facility] Laboratory - CoagulationOrde red By: Andi Ware on 07-11-2022 PT Coag (PPP) [Time] 14.1 s 9.0-12.9 [facility] Leukocytes [#/volume] correc [place] for nucleated erythrocytes in Blood by Automated counOrdered By: Andi Ware on 07-11-2022 WBC corrected for nucl RBC Auto (Bld) [#/Vol] 8.2 10*3/uL 4.1-10.5 [facility] Lymphocytes Auto (Bld) [#/Vo l]Ordered By: Andi Ware on 07-11-2022 Lymphocytes (Bld) [#/Vol] 1.6 10*3/uL 1.00-4.8 [facility] Lymphocytes/100 WBC Auto (Bl d)Ordered By: Andi Ware on 07-11-2022 Lymphocytes/100 WBC (Bld) 19.4 % . [facility] MCH Auto (RBC) [Entitic mass ]Ordered By: Andi Ware on 07-11-2022 MCH (RBC) [Entitic mass] 27.1 pg 27.5-35.2 [facility] MCHC Auto (RBC) [Mass/Vol]Or dered By: Andi Ware on 07-11-2022 MCHC (RBC) [Mass/Vol] 32.7 g/dL 32.5-35.6 [facility] MCV Auto (RBC) [Entitic vol] Ordered By: Andi Ware on 07-11-2022 MCV (RBC) [Entitic vol] 83.1 fL 83.5-101 [facility] Monocytes Auto (Bld) [#/Vol] Ordered By: Andi Ware on 07-11-2022 Monocytes (Bld) [#/Vol] 0.6 10*3/uL 0.0-0.8 [facility] Monocytes/100 WBC Auto (Bld) Ordered By: Andi Ware on 07-11-2022 Monocytes/100 WBC (Bld) 7.3 % . [facility] Neutrophils Auto (Bld) [#/Vo l]Ordered By: Andi Ware on 07-11-2022 Neutrophils (Bld) [#/Vol] 5.7 10*3/uL 1.8-7.7 [facility] Neutrophils/100 WBC Auto (Bl d)Ordered By: Andi Ware on 07-11-2022 Neutrophils/100 WBC (Bld) 69.4 % . [facility] No Panel InformationOrdered By: Andi Ware on 07-11-2022 Estimated GFR () 53 mL/Min [facility] Comment on above: GFR estimated refere nce range: According to KDOQI guidelines, <60 ml/min/1.73m2 is sufficient to diagnose a patient with chronic kidney disease. Pharmacy Creatinine Clearance (Chem N/A [facility] Nucleated erythrocytes [Pres ence] in Blood by Automated countOrdered By: Andi Ware on 07-11-2022 Nucleated RBC Auto Ql (Bld) 0.1 /100{WBC} 0-0.5 [facility] Platelet mean volume Auto (B ld) [Entitic vol]Ordered By: Andi Ware on 07-11-2022 Platelet mean volume (Bld) [Entitic vol] 6.9 fL 6.6-10.1 [facility] Platelet poor plasma interna tional normalized ratio (INR) by coagulation assay (relatOrdered By: Andi Ware on 07-11-2022 INR Coag (PPP) [Relative time] 1.2 {INR} [facility] Comment on above: INR Therapeutic [...] 07-11-2022 Platelets (Bld) [#/Vol] 286 10*3/uL 150-450 [facility] RBC Auto (Bld) [#/Vol]Ordere d By: Andi Waer on 07-11-2022 RBC (Bld) [#/Vol] 3.97 10*6/uL 3.90-5.60 [facility] Serum or plasma anion gap de terminationOrdered By: Andi Ware on 07-11-2022 Anion gap [Moles/Vol] 16.4 mmol/L 6.0-15.0 [facility] Serum or plasma calcium hakan urement (mass/volume)Ordered By: Andi Ware on 07-11-2022 Calcium [Mass/Vol] 9.0 mg/dL 8.2-10.2 [facility] Serum or plasma chloride akbar surement (moles/volume)Ordered By: Andi Ware on 07-11-2022 Chloride [Moles/Vol] 100 mmol/L 95-114 [facility] Serum or plasma glucose hakan urement (mass/volume)Ordered By: Andi Ware on 07-11-2022 Glucose [Mass/Vol] 176 mg/dL 70-100 [facility] Comment on above: ADA recommended refe rence rangeRandom Glucose Reference Range is dependent on time and content of last meal. Glucose of more than 200 mg/dL in a nonstressed, ambulatory subject supports the diagnosis of Diabetes Mellitus. Serum or plasma potassium me asurement (moles/volume)Ordered By: Andi Ware on 07-11-2022 Potassium [Moles/Vol] 4.6 mmol/L 3.5-5.1 [facility] Serum or plasma sodium measu rement (moles/volume)Ordered By: Andi Ware on 07-11-2022 Sodium [Moles/Vol] 136 mmol/L 136-146 [facility] Serum or plasma total carbon dioxide measurement (moles/volume)Ordered By: Andi Ware on 07-11-2022 CO2 [Moles/Vol] 24.2 mmol/L 22.0-30.0 [facility] Serum or plasma urea nitroge n measurement (mass/volume)Ordered By: Andi Ware on 07-11-2022 Urea nitrogen [Mass/Vol] 28 mg/dL 9-23 [facility] WBC Auto (Bld) [#/Vol]Ordere d By: Andi Ware on 07-11-2022 WBC (Bld) [#/Vol] 8.2 10*3/uL 4.1-10.5 [facility] Activated partial thrombopla stin time (aPTT) in platelet poor plasma by coagulation aOrdered By: Andi Ware on 05-23-2022 aPTT Coag (PPP) [Time] 29.9 s 25.1-36.5 [facility] Glucose Glucometer (BldC) [M ass/Vol]Ordered By: Andi Ware on 05-23-2022 Glucose [Mass/Vol] 200 mg/dL [facility] Comment on above: Random Glucose Refer ence Range is dependent on time and content of last meal. Glucose of more than 200 mg/dL in a nonstressed, ambulatory subject supports the diagnosis of Diabetes Mellitus. Laboratory - CoagulationOrde red By: Andi Ware on 05-23-2022 PT Coag (PPP) [Time] 12.8 s 9.0-12.9 [facility] No Panel InformationOrdered By: Andi Ware on 05-23-2022 Bedside Glucose Comment Glu2: cleaned meter [facility] Platelet poor plasma interna tional normalized ratio (INR) by coagulation assay (relatOrdered By: Andi Ware on 05-23-2022 INR Coag (PPP) [Relative time] 1.1 {INR} [facility] Comment on above: INR Therapeutic [...] 05-19-2022 Basophils (Bld) [#/Vol] 0.1 10*3/uL 0.0-0.2 [facility] Basophils/100 WBC Auto (Bld) Ordered By: Janusz Davidson on 05-19-2022 Basophils/100 WBC (Bld) 0.9 % . [facility] COVID-19 SOFIAOrdered By: Judi Wrae on 05-19-2022 SARS-CoV+SARS-CoV-2 (COVID-19) Ag IA.rapid Ql (Resp) Negative Negative [facility] Comment on above: This is a duplicate Lelo SARS Antigen (SHAKIRA) result to be used for statistical tracking purpose only. Creatinine and Glomerular fi ltration rate.predicted panel (S/P/Bld)Ordered By: Janusz Davidson on 05-19-2022 Creatinine [Mass/Vol] 1.37 mg/dL 0.64-1.27 [facility] Eosinophils Auto (Bld) [#/Vo l]Ordered By: Janusz Davidson on 05-19-2022 Eosinophils (Bld) [#/Vol] 0.3 10*3/uL 0.0-0.45 [facility] Eosinophils/100 WBC Auto (Bl d)Ordered By: Janusz Davidson on 05-19-2022 Eosinophils/100 WBC (Bld) 3.8 % . [facility] Erythrocyte distribution wid th Auto (RBC) [Ratio]Ordered By: Janusz Davidson on 05-19-2022 Erythrocyte distribution width (RBC) [Ratio] 16.6 % 12.0-14.8 [facility] Estimated glomerular filtrat ion rate (GFR) non- AmericanOrdered By: Janusz Davidson on 05-19-2022 GFR/1.73 sq M.predicted among non-blacks MDRD (S/P/Bld) [Vol rate/Area] 51 mL/Min [facility] Hematocrit Auto (Bld) [Volum e fraction]Ordered By: Janusz Davidson on 05-19-2022 Hematocrit (Bld) [Volume fraction] 33.3 % 38.8-50.0 [facility] Hemoglobin [Mass/volume] in BloodOrdered By: Janusz Davidson on 05-19-2022 Hemoglobin (Bld) [Mass/Vol] 10.6 g/dL 13.0-17.0 [facility] Leukocytes [#/volume] correc [place] for nucleated erythrocytes in Blood by Automated counOrdered By: Janusz Davidson on 05-19-2022 WBC corrected for nucl RBC Auto (Bld) [#/Vol] 8.2 10*3/uL 4.1-10.5 [facility] Lymphocytes Auto (Bld) [#/Vo l]Ordered By: Janusz Davidson on 05-19-2022 Lymphocytes (Bld) [#/Vol] 1.3 10*3/uL 1.00-4.8 [facility] Lymphocytes/100 WBC Auto (Bl d)Ordered By: Janusz Davidson on 05-19-2022 Lymphocytes/100 WBC (Bld) 16.3 % . [facility] MCH Auto (RBC) [Entitic mass ]Ordered By: Janusz Davidson on 05-19-2022 MCH (RBC) [Entitic mass] 26.9 pg 27.5-35.2 [facility] MCHC Auto (RBC) [Mass/Vol]Or dered By: Janusz Davidson on 05-19-2022 MCHC (RBC) [Mass/Vol] 31.8 g/dL 32.5-35.6 [facility] MCV Auto (RBC) [Entitic vol] Ordered By: Janusz Davidson on 05-19-2022 MCV (RBC) [Entitic vol] 84.5 fL 83.5-101 [facility] Monocytes Auto (Bld) [#/Vol] Ordered By: Janusz Davidson on 05-19-2022 Monocytes (Bld) [#/Vol] 0.6 10*3/uL 0.0-0.8 [facility] Monocytes/100 WBC Auto (Bld) Ordered By: Janusz Davidson on 05-19-2022 Monocytes/100 WBC (Bld) 6.9 % . [facility] Neutrophils Auto (Bld) [#/Vo l]Ordered By: Janusz Davidson on 05-19-2022 Neutrophils (Bld) [#/Vol] 5.9 10*3/uL 1.8-7.7 [facility] Neutrophils/100 WBC Auto (Bl d)Ordered By: Janusz Davidson on 05-19-2022 Neutrophils/100 WBC (Bld) 72.1 % . [facility] No Panel InformationOrdered By: Janusz Davidson on 05-19-2022 Estimated GFR () > 60 mL/Min [facility] Comment on above: GFR estimated refere nce range: According to KDOQI guidelines, <60 ml/min/1.73m2 is sufficient to diagnose a patient with chronic kidney disease. Pharmacy Creatinine Clearance (Chem N/A [facility] No Panel InformationOrdered By: Andi Ware on 05-19-2022 SARS Antigen (LFIA) [facility] SARS Antigen (LFIA) [facility] Nucleated erythrocytes [Pres ence] in Blood by Automated countOrdered By: Janusz Davidson on 05-19-2022 Nucleated RBC Auto Ql (Bld) 0.1 /100{WBC} 0-0.5 [facility] Platelet mean volume Auto (B ld) [Entitic vol]Ordered By: Janusz Davidson on 05-19-2022 Platelet mean volume (Bld) [Entitic vol] 7.1 fL 6.6-10.1 [facility] Platelets Auto (Bld) [#/Vol] Ordered By: Janusz Davidson on 05-19-2022 Platelets (Bld) [#/Vol] 315 10*3/uL 150-450 [facility] RBC Auto (Bld) [#/Vol]Ordere d By: Janusz Davidson on 05-19-2022 RBC (Bld) [#/Vol] 3.94 10*6/uL 3.90-5.60 [facility] Serum or plasma anion gap de terminationOrdered By: Janusz Davidson on 05-19-2022 Anion gap [Moles/Vol] 13.5 mmol/L 6.0-15.0 [facility] Serum or plasma calcium hakan urement (mass/volume)Ordered By: Janusz Davidson on 05-19-2022 Calcium [Mass/Vol] 8.9 mg/dL 8.2-10.2 [facility] Serum or plasma chloride akbar surement (moles/volume)Ordered By: Janusz Davidson on 05-19-2022 Chloride [Moles/Vol] 100 mmol/L 95-114 [facility] Serum or plasma glucose hakan urement (mass/volume)Ordered By: Janusz Davidson on 05-19-2022 Glucose [Mass/Vol] 188 mg/dL 70-100 [facility] Comment on above: ADA recommended refe rence rangeRandom Glucose Reference Range is dependent on time and content of last meal. Glucose of more than 200 mg/dL in a nonstressed, ambulatory subject supports the diagnosis of Diabetes Mellitus. Serum or plasma potassium me asurement (moles/volume)Ordered By: Janusz Davidson on 05-19-2022 Potassium [Moles/Vol] 4.3 mmol/L 3.5-5.1 [facility] Serum or plasma sodium measu rement (moles/volume)Ordered By: Janusz Davidson on 05-19-2022 Sodium [Moles/Vol] 139 mmol/L 136-146 [facility] Serum or plasma total carbon dioxide measurement (moles/volume)Ordered By: Janusz Davidson on 05-19-2022 CO2 [Moles/Vol] 29.8 mmol/L 22.0-30.0 [facility] Serum or plasma urea nitroge n measurement (mass/volume)Ordered By: Janusz Davidson on 05-19-2022 Urea nitrogen [Mass/Vol] 21 mg/dL 9-23 [facility] WBC Auto (Bld) [#/Vol]Ordere d By: Janusz Davidson on 05-19-2022 WBC (Bld) [#/Vol] 8.2 10*3/uL 4.1-10.5 [facility] Basophils Auto (Bld) [#/Vol] Ordered By: Janusz Davidson on 05-14-2022 Basophils (Bld) [#/Vol] 0.1 10*3/uL 0.0-0.2 [facility] Basophils/100 WBC Auto (Bld) Ordered By: Janusz Davidson on 05-14-2022 Basophils/100 WBC (Bld) 1.1 % . [facility] Creatinine and Glomerular fi ltration rate.predicted panel (S/P/Bld)Ordered By: Janusz Davidson on 05-14-2022 Creatinine [Mass/Vol] 1.27 mg/dL 0.64-1.27 [facility] Eosinophils Auto (Bld) [#/Vo l]Ordered By: Janusz Davidson on 05-14-2022 Eosinophils (Bld) [#/Vol] 0.2 10*3/uL 0.0-0.45 [facility] Eosinophils/100 WBC Auto (Bl d)Ordered By: Janusz Davidson on 05-14-2022 Eosinophils/100 WBC (Bld) 2.5 % . [facility] Erythrocyte distribution wid th Auto (RBC) [Ratio]Ordered By: Janusz Davidson on 05-14-2022 Erythrocyte distribution width (RBC) [Ratio] 15.7 % 12.0-14.8 [facility] Estimated glomerular filtrat ion rate (GFR) non- AmericanOrdered By: Janusz Davidson on 05-14-2022 GFR/1.73 sq M.predicted among non-blacks MDRD (S/P/Bld) [Vol rate/Area] 56 mL/Min [facility] Glucose Glucometer (BldC) [M ass/Vol]Ordered By: Janusz Davidson on 05-14-2022 Glucose [Mass/Vol] 226 mg/dL [facility] Comment on above: Random Glucose Refer ence Range is dependent on time and content of last meal. Glucose of more than 200 mg/dL in a nonstressed, ambulatory subject supports the diagnosis of Diabetes Mellitus. Hematocrit Auto (Bld) [Volum e fraction]Ordered By: Janusz Davidson on 05-14-2022 Hematocrit (Bld) [Volume fraction] 26.8 % 38.8-50.0 [facility] Hemoglobin [Mass/volume] in BloodOrdered By: Janusz Davidson on 05-14-2022 Hemoglobin (Bld) [Mass/Vol] 8.8 g/dL 13.0-17.0 [facility] Leukocytes [#/volume] correc [place] for nucleated erythrocytes in Blood by Automated counOrdered By: Janusz Davidson on 05-14-2022 WBC corrected for nucl RBC Auto (Bld) [#/Vol] 6.6 10*3/uL 4.1-10.5 [facility] Lymphocytes Auto (Bld) [#/Vo l]Ordered By: Janusz Davidson on 05-14-2022 Lymphocytes (Bld) [#/Vol] 1.2 10*3/uL 1.00-4.8 [facility] Lymphocytes/100 WBC Auto (Bl d)Ordered By: Janusz Davidson on 05-14-2022 Lymphocytes/100 WBC (Bld) 18.1 % . [facility] MCH Auto (RBC) [Entitic mass ]Ordered By: Janusz Davidson on 05-14-2022 MCH (RBC) [Entitic mass] 27.5 pg 27.5-35.2 [facility] MCHC Auto (RBC) [Mass/Vol]Or dered By: Janusz Davidson on 05-14-2022 MCHC (RBC) [Mass/Vol] 32.9 g/dL 32.5-35.6 [facility] MCV Auto (RBC) [Entitic vol] Ordered By: Janusz Davidson on 05-14-2022 MCV (RBC) [Entitic vol] 83.5 fL 83.5-101 [facility] Monocytes Auto (Bld) [#/Vol] Ordered By: Janusz Davidson on 05-14-2022 Monocytes (Bld) [#/Vol] 0.5 10*3/uL 0.0-0.8 [facility] Monocytes/100 WBC Auto (Bld) Ordered By: Janusz Davidson on 05-14-2022 Monocytes/100 WBC (Bld) 7.4 % . [facility] Neutrophils Auto (Bld) [#/Vo l]Ordered By: Janusz Davidson on 05-14-2022 Neutrophils (Bld) [#/Vol] 4.7 10*3/uL 1.8-7.7 [facility] Neutrophils/100 WBC Auto (Bl d)Ordered By: Janusz Davidson on 05-14-2022 Neutrophils/100 WBC (Bld) 70.9 % . [facility] No Panel InformationOrdered By: Janusz Davidson on 05-14-2022 Bedside Glucose Comment Glu2: cleaned meter [facility] Estimated GFR () > 60 mL/Min [facility] Comment on above: GFR estimated refere nce range: According to KDOQI guidelines, <60 ml/min/1.73m2 is sufficient to diagnose a patient with chronic kidney disease. Pharmacy Creatinine Clearance (Chem 66.09 [facility] Nucleated erythrocytes [Pres ence] in Blood by Automated countOrdered By: Janusz Davidson on 05-14-2022 Nucleated RBC Auto Ql (Bld) 0.1 /100{WBC} 0-0.5 [facility] Platelet mean volume Auto (B ld) [Entitic vol]Ordered By: Janusz Davidson on 05-14-2022 Platelet mean volume (Bld) [Entitic vol] 6.9 fL 6.6-10.1 [facility] Platelets Auto (Bld) [#/Vol] Ordered By: Janusz Davidson on 05-14-2022 Platelets (Bld) [#/Vol] 230 10*3/uL 150-450 [facility] RBC Auto (Bld) [#/Vol]Ordere d By: Janusz Davidson on 05-14-2022 RBC (Bld) [#/Vol] 3.20 10*6/uL 3.90-5.60 [facility] Serum or plasma anion gap de terminationOrdered By: Janusz Davidson on 05-14-2022 Anion gap [Moles/Vol] 11.0 mmol/L 6.0-15.0 [facility] Serum or plasma calcium hakan urement (mass/volume)Ordered By: Janusz Davidson on 05-14-2022 Calcium [Mass/Vol] 8.3 mg/dL 8.2-10.2 [facility] Serum or plasma chloride akbar surement (moles/volume)Ordered By: Janusz Davidson on 05-14-2022 Chloride [Moles/Vol] 100 mmol/L 95-114 [facility] Serum or plasma glucose hakan urement (mass/volume)Ordered By: Janusz Davidson on 05-14-2022 Glucose [Mass/Vol] 161 mg/dL 70-100 [facility] Comment on above: ADA recommended refe rence rangeRandom Glucose Reference Range is dependent on time and content of last meal. Glucose of more than 200 mg/dL in a nonstressed, ambulatory subject supports the diagnosis of Diabetes Mellitus. Serum or plasma potassium me asurement (moles/volume)Ordered By: Janusz Davidson on 05-14-2022 Potassium [Moles/Vol] 3.9 mmol/L 3.5-5.1 [facility] Serum or plasma sodium measu rement (moles/volume)Ordered By: Janusz Davidson on 05-14-2022 Sodium [Moles/Vol] 136 mmol/L 136-146 [facility] Serum or plasma total carbon dioxide measurement (moles/volume)Ordered By: Janusz Davidson on 05-14-2022 CO2 [Moles/Vol] 28.9 mmol/L 22.0-30.0 [facility] Serum or plasma urea nitroge n measurement (mass/volume)Ordered By: Janusz Davidson on 05-14-2022 Urea nitrogen [Mass/Vol] 18 mg/dL 9-23 [facility] WBC Auto (Bld) [#/Vol]Ordere d By: Janusz Davidson on 05-14-2022 WBC (Bld) [#/Vol] 6.6 10*3/uL 4.1-10.5 [facility] Activated partial thrombopla stin time (aPTT) in platelet poor plasma by coagulation aOrdered By: Janusz Reed on 05-12-2022 aPTT Coag (PPP) [Time] 37.3 s 25.1-36.5 [facility] Basophils Auto (Bld) [#/Vol] Ordered By: Janusz Reed on 05-12-2022 Basophils (Bld) [#/Vol] 0.1 10*3/uL 0.0-0.2 [facility] Basophils/100 WBC Auto (Bld) Ordered By: Janusz Reed on 05-12-2022 Basophils/100 WBC (Bld) 1.0 % . [facility] Body fluid albumin measureme nt (mass/volume)Ordered By: Janusz Reed on 05-12-2022 Albumin (Body fld) [Mass/Vol] 3.7 g/dL 3.2-5.5 [facility] Creatinine and Glomerular fi ltration rate.predicted panel (S/P/Bld)Ordered By: Janusz Reed on 05-12-2022 Creatinine [Mass/Vol] 1.31 mg/dL 0.64-1.27 [facility] Eosinophils Auto (Bld) [#/Vo l]Ordered By: Janusz Reed on 05-12-2022 Eosinophils (Bld) [#/Vol] 0.2 10*3/uL 0.0-0.45 [facility] Eosinophils/100 WBC Auto (Bl d)Ordered By: Janusz Reed on 05-12-2022 Eosinophils/100 WBC (Bld) 2.4 % . [facility] Erythrocyte distribution wid th Auto (RBC) [Ratio]Ordered By: Janusz Reed on 05-12-2022 Erythrocyte distribution width (RBC) [Ratio] 15.9 % 12.0-14.8 [facility] Estimated glomerular filtrat ion rate (GFR) non- AmericanOrdered By: Janusz Reed on 05-12-2022 GFR/1.73 sq M.predicted among non-blacks MDRD (S/P/Bld) [Vol rate/Area] 54 mL/Min [facility] Globulin Calc (S) [Mass/Vol] Ordered By: Janusz Reed on 05-12-2022 Globulin (S) [Mass/Vol] 3.6 g/dL [facility] Hematocrit Auto (Bld) [Volum e fraction]Ordered By: Janusz Reed on 05-12-2022 Hematocrit (Bld) [Volume fraction] 29.3 % 38.8-50.0 [facility] Hemoglobin [Mass/volume] in BloodOrdered By: Janusz Reed on 05-12-2022 Hemoglobin (Bld) [Mass/Vol] 9.4 g/dL 13.0-17.0 [facility] Laboratory - Chemistry and C hemistry - challengeOrdered By: Janusz Davidson on 05-12-2022 Natriuretic peptide B (Bld) [Mass/Vol] 177.0 pg/mL 5-100 [facility] Laboratory - CoagulationOrde red By: Janusz Reed on 05-12-2022 PT Coag (PPP) [Time] 19.4 s 9.0-12.9 [facility] Leukocytes [#/volume] correc [place] for nucleated erythrocytes in Blood by Automated counOrdered By: Janusz Reed on 05-12-2022 WBC corrected for nucl RBC Auto (Bld) [#/Vol] 8.0 10*3/uL 4.1-10.5 [facility] Lymphocytes Auto (Bld) [#/Vo l]Ordered By: Janusz Reed on 05-12-2022 Lymphocytes (Bld) [#/Vol] 1.2 10*3/uL 1.00-4.8 [facility] Lymphocytes/100 WBC Auto (Bl d)Ordered By: Janusz Reed on 05-12-2022 Lymphocytes/100 WBC (Bld) 15.3 % . [facility] MCH Auto (RBC) [Entitic mass ]Ordered By: Janusz Reed on 05-12-2022 MCH (RBC) [Entitic mass] 27.2 pg 27.5-35.2 [facility] MCHC Auto (RBC) [Mass/Vol]Or dered By: Janusz Reed on 05-12-2022 MCHC (RBC) [Mass/Vol] 32.1 g/dL 32.5-35.6 [facility] MCV Auto (RBC) [Entitic vol] Ordered By: Janusz Reed on 05-12-2022 MCV (RBC) [Entitic vol] 84.9 fL 83.5-101 [facility] Monocyte distribution width [Entitic volume] in Blood by AutomatedOrdered By: Janusz Reed on 05-12-2022 Monocyte distribution width Auto (Bld) [Entitic vol] 17.98 % 0.00-20.00 [facility] Monocytes Auto (Bld) [#/Vol] Ordered By: Janusz Reed on 05-12-2022 Monocytes (Bld) [#/Vol] 0.4 10*3/uL 0.0-0.8 [facility] Monocytes/100 WBC Auto (Bld) Ordered By: Janusz Reed on 05-12-2022 Monocytes/100 WBC (Bld) 5.6 % . [facility] Neutrophils Auto (Bld) [#/Vo l]Ordered By: Janusz Reed on 05-12-2022 Neutrophils (Bld) [#/Vol] 6.1 10*3/uL 1.8-7.7 [facility] Neutrophils/100 WBC Auto (Bl d)Ordered By: Janusz Reed on 05-12-2022 Neutrophils/100 WBC (Bld) 75.7 % . [facility] No Panel InformationOrdered By: Janusz Reed on 05-12-2022 Estimated GFR () > 60 mL/Min [facility] Comment on above: GFR estimated refere nce range: According to KDOQI guidelines, <60 ml/min/1.73m2 is sufficient to diagnose a patient with chronic kidney disease. Pharmacy Creatinine Clearance (Chem 59.78 [facility] Nucleated erythrocytes [Pres ence] in Blood by Automated countOrdered By: Janusz Reed on 05-12-2022 Nucleated RBC Auto Ql (Bld) 0.0 /100{WBC} 0-0.5 [facility] Platelet mean volume Auto (B ld) [Entitic vol]Ordered By: Janusz Reed on 05-12-2022 Platelet mean volume (Bld) [Entitic vol] 7.2 fL 6.6-10.1 [facility] Platelet poor plasma interna tional normalized ratio (INR) by coagulation assay (relatOrdered By: Janusz Reed on 05-12-2022 INR Coag (PPP) [Relative time] 1.7 {INR} [facility] Comment on above: INR Therapeutic [...] 05-12-2022 Platelets (Bld) [#/Vol] 264 10*3/uL 150-450 [facility] Protein [Mass/volume] in Ser um or PlasmaOrdered By: Janusz Reed on 05-12-2022 Protein [Mass/Vol] 7.3 g/dL 6.1-7.9 [facility] RBC Auto (Bld) [#/Vol]Ordere d By: Janusz Reed on 05-12-2022 RBC (Bld) [#/Vol] 3.46 10*6/uL 3.90-5.60 [facility] Serum or plasma alanine del valle otransferase measurement without P-5'-P (enzymatic activiOrdered By: Janusz Reed on 05-12-2022 ALT No additional P-5'-P [Catalytic activity/Vol] 24 U/L 10-60 [facility] Serum or plasma albumin/glob ulin mass ratioOrdered By: Janusz Reed on 05-12-2022 Albumin/Globulin [Mass ratio] 1.0 {ratio} [facility] Serum or plasma alkaline lula sphatase measurement (enzymatic activity/volume)Ordered By: Janusz Reed on 05-12-2022 ALP [Catalytic activity/Vol] 79 U/L 32-92 [facility] Serum or plasma anion gap de terminationOrdered By: Janusz Reed on 05-12-2022 Anion gap [Moles/Vol] 17.7 mmol/L 6.0-15.0 [facility] Serum or plasma aspartate am inotransferase measurement (enzymatic activity/volume)Ordered By: Janusz Reed on 05-12-2022 AST [Catalytic activity/Vol] 22 U/L 10-42 [facility] Serum or plasma calcium hakan urement (mass/volume)Ordered By: Janusz Reed on 05-12-2022 Calcium [Mass/Vol] 8.9 mg/dL 8.2-10.2 [facility] Serum or plasma chloride akbar surement (moles/volume)Ordered By: Janusz Reed on 05-12-2022 Chloride [Moles/Vol] 100 mmol/L 95-114 [facility] Serum or plasma glucose hakan urement (mass/volume)Ordered By: Janusz Reed on 05-12-2022 Glucose [Mass/Vol] 174 mg/dL 70-100 [facility] Comment on above: ADA recommended refe rence rangeRandom Glucose Reference Range is dependent on time and content of last meal. Glucose of more than 200 mg/dL in a nonstressed, ambulatory subject supports the diagnosis of Diabetes Mellitus. Serum or plasma potassium me asurement (moles/volume)Ordered By: Janusz Reed on 05-12-2022 Potassium [Moles/Vol] 4.3 mmol/L 3.5-5.1 [facility] Serum or plasma sodium measu rement (moles/volume)Ordered By: Janusz Reed on 05-12-2022 Sodium [Moles/Vol] 138 mmol/L 136-146 [facility] Serum or plasma total biliru bin measurement (mass/volume)Ordered By: Janusz Reed on 05-12-2022 Bilirubin [Mass/Vol] 0.8 mg/dL 0.3-1.2 [facility] Serum or plasma total carbon dioxide measurement (moles/volume)Ordered By: Janusz Reed on 05-12-2022 CO2 [Moles/Vol] 24.6 mmol/L 22.0-30.0 [facility] Serum or plasma urea nitroge n measurement (mass/volume)Ordered By: Janusz Reed on 05-12-2022 Urea nitrogen [Mass/Vol] 20 mg/dL 9-23 [facility] WBC Auto (Bld) [#/Vol]Ordere d By: Jaunsz Reed on 05-12-2022 WBC (Bld) [#/Vol] 8.0 10*3/uL 4.1-10.5 [facility] Office Visit (Cardiology)on 03-15-2022 Follow-up visit Diagnoses/Problems Assessed Stage 3b chronic kidney disease (585.3) (N18.32) 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) Hypertension, [...] Atherosclerosis of coronary artery bypass graft of [place] heart without angina pectoris, Hypertension, essential, benign, Ischemic cardiomyopathy Renew: Enalapril Maleate 10 MG Oral Tablet; Take 1 tablet twice daily Atherosclerosis of coronary artery bypass graft of [place] heart without angina pectoris, Paroxysmal atrial fibrillation Renew: Carvedilol 25 MG Oral Tablet; TAKE 1 TABLET TWICE DAILY Class 1 obesity with body mass index (BMI) of 33.0 to 33.9 in adult Healthy Weight Tips; Status:Complete; Done: [id number] Some eating tips that can help you lose weight.; Status:Complete; Done: [id number] Hypertension, essential, benign Renew: amLODIPine Besylate 5 MG Oral Tablet; TAKE 1 TABLET BY MOUTH EVERY DAY Paroxysmal atrial fibrillation Renew: Eliquis 5 MG Oral Tablet; TAKE ONE TABLET TWO TIMES DAILY IO EKG Electrocardiogram- 12 Lead; Status:Complete; Done: [id number] Patient Instructions Please bring all medicines, vitamins, [...] arthrodesis Histor (more content not included)... Normal [employer] Tobacco Screening.on 022 Fall risk assessment a) No falls within the last year [facility] [address] DO Work Phone: Tobacco use status [facility] b) No [facility] 600 DO Work Phone: CHEMISTRYOrdered By: Lab ROP User on 02-10-2022 Glucose [Mass/Vol] 89 mg/dL Normal 55 - 99 mg/dL [facility] POC Subsection Comment on above: Result Comment: Kennedy espitia RN/ POC Device SN [id number] Invalid Interpretation Code [facility] POC Subsection POC User ID [id number] Invalid Interpretation Code [facility] POC Subsection POC Username MEDINA MOLINA Invalid Interpretation Code [facility] POC Subsection Glucose [Mass/Vol] 130 mg/dL High 55 - 99 mg/dL [facility] POC Subsection Comment on above: Result Comment: Kennedy nupur RN/MD POC Device SN [id number] Invalid Interpretation Code [facility] POC Subsection POC User ID [id number] Invalid Interpretation Code [facility] POC Subsection POC Username MEDINA MOLINA Invalid Interpretation Code [facility] POC Subsection Glucose [Mass/Vol] 113 mg/dL High 55 - 99 mg/dL [facility] POC Subsection Comment on above: Result Comment: Kennedy espitia RN/MD POC Device SN [id number] Invalid Interpretation Code [facility] POC Subsection POC User ID [id number] Invalid Interpretation Code [facility] POC Subsection POC Username ALMA DELIA MOLINARYN Invalid Interpretation Code [facility] Subsection CHEMISTRYOrdered By: SYSTEM SYSTEM on 02-10-2022 Anion gap [Moles/Vol] 11 mmol/L Normal 6 - 16 mEq/L [facility] Remisol Calcium [Mass/Vol] 8.4 mg/dL Low 8.9 - 11. 1 mg/dL [facility] Remisol Chloride [Moles/Vol] 104 mmol/L Normal 101 - 1 11 mmol/L [facility] Remisol CO2 [Moles/Vol] 29 mmol/L Normal 21 - 31 mmol/L [facility] Remisol Creatinine [Mass/Vol] 1.2 mg/dL Normal 0.5 - 1.3 mg/dL [facility] Remisol GFR/1.73 sq M.predicted among blacks MDRD (S/P/Bld) [Vol rate/Area] mL/min/1.73 m2 Normal >=59mL/min /1.73 m2 [facility] Chem S GFR/1.73 sq M.predicted among non-blacks MDRD (S/P/Bld) [Vol rate/Area] 59 mL/min/1.73 m2 Normal >=59mL/min /1.73 m2 [facility] Chem S Glucose [Mass/Vol] 70 mg/dL Normal 55 - 199 mg/dL [facility] Remisol Magnesium [Mass/Vol] 2.2 mg/dL Normal 1.3 [...] (Bld) [Mass fraction] 8.2 % High <=5.9% [facility] ChemAutoSS Reference Laboratory Testing Ordered By: Generated DomainUser on 02-09-2022 Reagin Ab RPR Ql (S) Non-Reactive Invalid Interpretation Code Non Reactive [facility] SendOutsSS Comment on above: Result Comment: Perf ormed at: CB [facility] [address] [id number] PhD Erick Nielsen CHEMISTRYOrdered By: SYSTEM SYSTEM [...] PM) Normal Negative [facility] UA Auto SS Velarde.plasma/Velarde .RBC (Bld) [Mass ratio] 0-3 /HPF Normal [...] [facility] UA Auto SS Urobilinogen Qn (U) 0.4715538 {Gabby'U}/dL Normal 0.0 - 1.0 EU/dL [facility] [...] 27 mmol/L Normal 21 - 31 mmol/L [facility] Remisol Creatinine [Mass/Vol] 1.6 mg/dL High 0.5 - 1.3 mg/dL [facility] Remisol GFR/1.73 sq M.predicted among blacks MDRD (S/P/Bld) [Vol rate/Area] 52 mL/min/1.73 m2 Low >=59mL/min /1.73 m2 [facility] Chem S GFR/1.73 sq M.predicted among non-blacks MDRD (S/P/Bld) [Vol rate/Area] 43 mL/min/1.73 m2 Low >=59mL/min /1.73 m2 [facility] Chem S Glucose [Mass/Vol] 225 mg/dL High 55 - 199 mg/dL [facility] Remisol Potassium [Moles/Vol] 4.8 mmol/L Normal 3.5 - 5.3 mmol/L [facility] Remisol Sodium [Moles/Vol] 136 mmol/L Normal 135 - 145 mmol/L [facility] Remisol Troponin I.cardiac [Mass/Vol] 16.20 pg/mL Normal 15.90 - 38.40 pg/mL [facility] Remisol Urea nitrogen [Mass/Vol] 33 mg/dL High 5 - 21 mg/dL [facility] Remisol Urea nitrogen/Creatinine [Mass ratio] 21 mg/mg High 10 - 20 [facility] Remisol CHEMISTRYOrdered By: Radha Vera on 02-02-2022 Natriuretic peptide B (Bld) [Mass/Vol] 125 pg/mL High 5 - 80 pg/mL [facility] HemeManSS HEMATOLOGYOrdered By: GoldenSUN SYSTEM on 02-02-2022 Basophils/100 WBC (Bld) 0.3 % Normal 0.0 - 2.0 % [facility] HemeAutoSS Basophils/Leukocytes Auto (Bld) [Pure # fraction] 0.0 E9/L Normal 0.0 - 0.2 E9/L [facility] HemeAutoSS Eosinophils/100 WBC (Bld) 3.7 % Normal [...] PM) Normal Negative [facility] UA Auto SS Velarde.plasma/Velarde .RBC (Bld) [Mass ratio] 0-3 /HPF Normal [...] [facility] UA Auto SS Urobilinogen Qn (U) 0.4652802 {Gabby'U}/dL Normal 0.0 - 1.0 EU/dL [facility] [...] 45 mL/min/1.73 m2 Low >=59mL/min /1.73 m2 [facility] Chem S GFR/1.73 sq M.predicted among non-blacks MDRD (S/P/Bld) [Vol rate/Area] 37 mL/min/1.73 m2 Low >=59mL/min /1.73 m2 [facility] Chem S Glucose [Mass/Vol] 130 mg/dL Normal 55 - 199 mg/dL [facility] Remisol Potassium [Moles/Vol] 4.3 mmol/L Normal 3.5 [...] 8.7 g/dL Low 13.5 - 17.5 gm/dL [facility] HemeAutoSS MCH (RBC) [Entitic mass] 29.7 pg Normal 27.0 - 34.0 pg [facility] HemeAutoSS MCHC (RBC) [Mass/Vol] 33.4 g/dL Normal 31.4 - 36.0 gm/dL [facility] HemeAutoSS MCV (RBC) [Entitic vol] 88.7 fL Normal 80.0 - 100.0 fL [facility] HemeAutoSS Platelet mean volume (Bld) [Entitic vol] 6.6 fL Normal 6.4 - 10.8 fL [facility] HemeAutoSS Platelets (Bld) [#/Vol] 194.0 E9/L Normal 150.0 - 500.0 E9/L [facility] HemeAutoSS RBC (Bld) [#/Vol] 2.9 E12/L Low 4.3 - 5.9 E12/L [facility] HemeAutoSS WBC corrected for nucl RBC Auto (Bld) [#/Vol] 7.0 E9/L Normal 4.0 - 11.0 E9/L [facility] HemeAutoSS CHEMISTRYOrdered By: SYSTEM SYSTEM on 12-19-2021 [...] 33 mL/min/1.73 m2 Low >=59mL/min /1.73 m2 [facility] Chem S Glucose [Mass/Vol] 297 mg/dL High 55 - 199 mg/dL [facility] Remisol Potassium [Moles/Vol] 6.2 mmol/L Invalid Interpretation Code 3.5 - 5.3 mmol/L [facility] Remisol Comment on above: Result Comment: Crit ical Result verified by repeat analysis\Critical Result S_K:6.2 Called to RIVKA SOUZA AT OFFICE by [place] And Read Back For Confirmation at: 12/19/2021 14:02:36 Sodium [Moles/Vol] 135 mmol/L Normal 135 - 145 mmol/L [facility] Remisol Urea nitrogen [Mass/Vol] 53 mg/dL High 5 - 21 mg/dL [facility] Remisol Urea nitrogen/Creatinine [Mass ratio] 26 mg/mg High 10 - 20 [facility] Remisol Office Visit (Cardiology)on 12-15-2021 Follow-up visit Diagnoses/Problems Assessed 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 Follow with pcp /psych Status: Complete - Retrospective Authorization Done: [id number] Paroxysmal atrial fibrillation IO EKG Electrocardiogram- 12 Lead; Status:Complete; Done: [id number] SocHx: Former smoker Tobacco Use Screening; Status:Complete; Done: [id number] Patient Instructions By signing my name below, [...] continue Eliquis (more content not included)... Normal [employer] Tobacco Screening.on 022 Adult depression screening assessment [facility] [place] [address] DO Work Phone: Fall risk assessment b) One or more fall s in the last year [facility] [place] 600 DO Work Phone: Tobacco use status [facility] b) No [facility] [place] [address] DO Work Phone: Tobacco Screening. 1-Several days [facility] [place] 600 DO Work Phone: Tobacco Screening. 0-Not at all [facility] [place] 600 DO Work Phone: Tobacco Screening. 3-Nearly every day [facility] [place] [address] DO Work Phone: Tobacco Screening. Somewhat Difficult -[facility] 600 DO Work Phone: CHEMISTRYOrdered By: SYSTEM [...] 43 mL/min/1.73 m2 Low >=59mL/min /1.73 m2 [facility] Chem S Glucose [Mass/Vol] 173 mg/dL Normal 55 - 199 mg/dL [facility] Remisol Potassium [Moles/Vol] 4.7 mmol/L Normal 3.5 - 5.3 mmol/L [facility] Remisol Sodium [Moles/Vol] 138 mmol/L Normal 135 - 145 mmol/L [facility] Remisol Triglyceride [Mass/Vol] 235 mg/dL High <=149mg/dL [facility] Remisol TSH Qn 38.68 m[IU]/L High 0.34 - 5.60 mcIU/mL [facility] Remisol Urea nitrogen [Mass/Vol] 24 mg/dL High 5 - 21 mg/dL [facility] Remisol Urea nitrogen/Creatinine [Mass ratio] 15 mg/mg Normal 10 - 20 [facility] Remisol CHEMISTRYOrdered By: Yvon LI User on 10-19-2021 Glucose [Mass/Vol] 269 mg/dL High 55 - 99 mg/dL [facility] P[facility] Subsection Comment on above: Result Comment: Chela nohemi Meter POC Device SN [id number] Invalid Interpretation Code [facility] POC Subsection POC User ID [id number] Invalid Interpretation Code [facility] POC Subsection POC Username STAS HOMA Invalid Interpretation Code [facility] POC Subsection Glucose [Mass/Vol] 192 mg/dL High 55 - 99 mg/dL [facility] P[facility] Subsection Comment on above: Result Comment: Chela fuentesd Meter POC Device SN [id number] Invalid Interpretation Code [facility] POC Subsection POC User ID [id number] Invalid Interpretation Code [facility] POC Subsection POC Username STAS HOMA Invalid Interpretation Code [facility] POC Subsection CHEMISTRYOrdered By: Lab ROP User on 10-18-2021 Glucose [Mass/Vol] 224 mg/dL High 55 - 99 mg/dL [facility] POC Subsection POC Device SN [id number] Invalid Interpretation Code [facility] POC Subsection POC User ID [id number] Invalid Interpretation Code [facility] POC Subsection POC Username JEANMIKELEliana Invalid Interpretation Code [facility] POC Subsection CHEMISTRYOrdered By: SYSTEM SYSTEM on [...] 1.1 mg/dL Normal 0.5 - 1.3 mg/dL [facility] Remisol GFR/1.73 sq M.predicted among blacks MDRD (S/P/Bld) [Vol rate/Area] mL/min/1.73 m2 Normal >=59mL/min /1.73 m2 [facility] Chem S GFR/1.73 sq M.predicted among non-blacks MDRD (S/P/Bld) [Vol rate/Area] mL/min/1.73 m2 Normal >=59mL/min /1.73 m2 [facility] Chem S Glucose [Mass/Vol] 214 mg/dL High 55 - 199 mg/dL [facility] Remisol Potassium [Moles/Vol] 4.5 mmol/L Normal 3.5 - 5.3 mmol/L [facility] Sodium [Moles/Vol] 137 mmol/L Normal 135 - 145 mmol/L [facility] Urea nitrogen [Mass/Vol] 21 mg/dL Normal 5 - 21 mg/dL [facility] Remisol Urea nitrogen/Creatinine [Mass ratio] 19 mg/mg Normal 10 - 20 [facility]isol CHEMISTRYOrdered By: SYSTEM SYSTEM on 10-14-2021 Anion gap [Moles/Vol] 17 mmol/L High 6 - 16 mEq/L [facility] Calcium [Mass/Vol] 8.6 mg/dL Low 8.9 - 11. 1 mg/dL [facility] Chloride [Moles/Vol] 105 mmol/L Normal 101 - 1 11 mmol/L [facility] CO2 [Moles/Vol] 24 mmol/L Normal 21 - 31 mmol/L [facility] Rem[facility] Creatinine [Mass/Vol] 1.5 mg/dL High 0.5 - 1.3 mg/dL [facility] Remisol GFR/1.73 sq M.predicted among blacks MDRD (S/P/Bld) [Vol rate/Area] 56 mL/min/1.73 m2 Low >=59mL/min /1.73 m2 [facility] Chem S GFR/1.73 sq M.predicted among non-blacks MDRD (S/P/Bld) [Vol rate/Area] 46 mL/min/1.73 m2 Low >=59mL/min /1.73 m2 [facility] Chem S Glucose [Mass/Vol] 125 mg/dL Normal 55 - 199 mg/dL [facility] Remisol Potassium [Moles/Vol] 4.7 mmol/L Normal 3.5 - 5.3 mmol/L [facility] Remisol Sodium [Moles/Vol] 141 mmol/L Normal 135 - 145 mmol/L [facility] Remisol Troponin I.cardiac [Mass/Vol] 11.00 pg/mL Low 15.90 - 38.40 pg/mL [facility] Remisol Urea nitrogen [Mass/Vol] 33 mg/dL High 5 - 21 mg/dL [facility] Remisol Urea nitrogen/Creatinine [Mass ratio] 22 mg/mg High 10 - 20 [facility] Remisol HEMATOLOGYOrdered By: SYSTEM SYSTEM on 10-14-2021 Basophils/100 WBC (Bld) 0.8 % Normal 0.0 - 2.0 % [facility] HemeAutoSS Basophils/Leukocytes Auto (Bld) [Pure # fraction] [...] Comment: Kennedy espitia RN/ POC Device SN [id number] Invalid Interpretation Code [facility] POC Subsection POC User ID [id number] Invalid Interpretation Code [facility] POC Subsection POC Username Esetlita Hernandez Invalid Interpretation Code [facility] POC Subsection Glucose [Mass/Vol] 170 mg/dL High 55 - 99 mg/dL [facility] POC Subsection Comment on above: Result Comment: Kennedy espitia RN/ POC Device SN [id number] Invalid Interpretation Code [facility] POC Subsection POC User ID [id number] Invalid Interpretation Code [facility] POC Subsection POC Username Estelita Hernandez Invalid Interpretation Code [facility] POC Subsection CHEMISTRYOrdered By: Lab ROP User on 10-12-2021 Glucose [Mass/Vol] 249 mg/dL High 55 - 99 mg/dL [facility] POC Subsection Comment on above: Result Comment: Kennedy espitia RN/ POC Device SN [id number] Invalid Interpretation Code [facility] POC Subsection POC User ID [id number] Invalid Interpretation Code [facility] POC Subsection POC Username [email or web address] Invalid Interpretation Code [facility] POC Subsection CHEMISTRYOrdered By: SYSTEM SYSTEM on 10-11-2021 Anion gap [Moles/Vol] 12 mmol/L Normal 6 - 16 mEq/L [facility] Remisol Calcium [Mass/Vol] 9.0 mg/dL Normal 8.9 - 11. 1 mg/dL [facility] Remisol Chloride [Moles/Vol] 103 mmol/L Normal 101 - 1 11 mmol/L [facility] Remisol CO2 [Moles/Vol] 27 mmol/L Normal 21 - 31 mmol/L [facility] Remisol Creatinine [Mass/Vol] 1.1 mg/dL Normal 0.5 - 1.3 mg/dL [facility] GFR/1.73 sq M.predicted among blacks MDRD (S/P/Bld) [Vol rate/Area] mL/min/1.73 m2 Normal >=59mL/min /1.73 m2 [facility] Chem S GFR/1.73 sq M.predicted among non-blacks MDRD (S/P/Bld) [Vol rate/Area] mL/min/1.73 m2 Normal >=59mL/min /1.73 m2 [facility] Chem S Glucose [Mass/Vol] 150 mg/dL Normal [...] 60 mL/min/1.73 m2 Normal >=59mL/min /1.73 m2 [facility] Chem S GFR/1.73 sq M.predicted among non-blacks MDRD (S/P/Bld) [Vol rate/Area] 50 mL/min/1.73 m2 Low >=59mL/min /1.73 m2 [facility] Chem S Laboratory - Microbiology an d Antimicrobial susceptibilityon 10-08-2021 Bacteria identified Cx Nom (U) 2,000 cfu/ml Mixed skin contaminants [facility] CHEMISTRYOrdered By: SYSTEM SYSTEM on 10-07-2021 [...] 42 mL/min/1.73 m2 Low >=59mL/min /1.73 m2 [facility] Chem S GFR/1.73 sq M.predicted among non-blacks MDRD (S/P/Bld) [Vol rate/Area] 35 mL/min/1.73 m2 Low >=59mL/min /1.73 m2 [facility] Chem S Glucose [Mass/Vol] 135 mg/dL Normal [...] Remisol Reference Laboratory Testing Ordered By: Ember DomainUsemaría on 10-07-2021 Reagin Ab RPR Ql (S) Non-Reactive Invalid Interpretation Code Non Reactive [facility] SendOutsSS Comment on above: Result Comment: Perf ormed at: [facility] [address] [id number] PhD Erick Nielsen URINALYSISOrdered By: Sahnnon Dobbs on 10-07-2021 Bilirubin Ql (U) Negative [...] PM) Normal Negative [facility] UA Auto SS Velarde.plasma/Velarde .RBC (Bld) [Mass ratio] 0-3 /HPF Normal [...] Spec Desc Catheter (10/07/21 4:00 PM) Normal [facility] Auto SS Urobilinogen Qn (U) 0.6737214 {Gabby'U}/dL Normal 0.0 - 1.0 EU/dL [facility] [...] 38 mL/min/1.73 m2 Low >=59mL/min /1.73 m2 [facility] [...] 4.47 mg/dL Normal 4.40 - 5.30 mg/dL [facility] Resp Auto SS cCl- Art 101.0 mmol/L Normal 101.0 - 111.0 mmol/L [facility] Resp Auto SS cGlu Art 269 mg/dL High 55 - 99 mg/dL [facility] Resp Auto SS cK+ Art 5.0 mmol/L Normal 3.5 - 5.3 mmol/L [facility] Resp Auto SS cLac Art 1.9 mmol/L Normal 0.5 - 2.2 mmol/L [facility] Resp Auto SS utility bill complaints investigator+ Art 139.0 mmol/L Normal 135.0 - 145.0 mmol/L [facility] Resp Auto SS Drawn by RLG Invalid Interpretation Code [facility] Resp Auto SS FCOHb Art % Low 1.5 - 4.9 % [facility] Resp Auto SS FIO2 BG 21 Invalid Interpretation Code [facility] Resp Auto SS FMetHb Art 0.9 % Normal 0.0 - 1.9 % [facility] Resp Auto SS FO2Hb Art 92.6 % Low 93.0 - 100.0 % [facility] Resp Auto SS HCO3 (Bld) [Moles/Vol] 25.9 mmol/L Normal 22.0 - 26.0 mmol/L [facility] Resp Auto SS Hemoglobin (Bld) [Mass/Vol] 10.6 g/dL Low 12.0 - 17.0 gm/dL [facility] Resp Auto SS P CO2 Arterial 44.8 mm[Hg] Normal 35.0 - 45.0 mmHg [facility] Resp Auto SS P O2 Arterial 75.9 mm[Hg] Low 80.0 - 100.0 mmHg [facility] Resp Auto SS pH Arterial 7.391 Normal 7.350 - 7.450 [facility] Resp Auto SS Sample Site R Radial (10/06/21 6:03 PM) Normal [facility] Resp Auto SS Sample Type Arterial Draw (10/06/21 6:03 PM) Normal [facility] Resp Auto SS HEMATOLOGYOrdered By: SYSTEM SYSTEM on 10-06-2021 Basophils/100 WBC (Bld) 1.0 % Normal 0.0 - 2.0 % [facility] HemeAutoSS Basophils/Leukocytes Auto (Bld) [Pure # fraction] 0.1 E9/L Normal 0.0 - 0.2 E9/L [facility] HemeAutoSS Eosinophils/100 WBC (Bld) 3.4 % Normal [...] 87.3 fL Normal 80.0 - 100.0 fL [facility] HemeAutoSS Platelet mean volume (Bld) [Entitic vol] 6.9 fL Normal 6.4 - 10.8 fL [facility] HemeAutoSS Platelets (Bld) [#/Vol] 233.0 E9/L Normal 150.0 - 500.0 E9/L [facility] HemeAutoSS RBC (Bld) [#/Vol] 3.7 E12/L Low 4.3 - 5.9 E12/L [facility] HemeAutoSS WBC corrected for nucl RBC Auto (Bld) [#/Vol] 7.4 E9/L Normal 4.0 - 11.0 E9/L [facility] HemeAutoSS Laboratory - Microbiology an d Antimicrobial susceptibilityon 10-06-2021 Bacteria identified Cx Nom (U) 1,000 cfu/ml Mixed skin contaminants [facility] MICRO OTHER TESTSOrdered By: Jb Cuevas on 10-06-2021 Rapid COV Int NEG Ctl Pass (10/06/21 8:55 PM) Normal [facility] Man Sero Rapid COV Int POS Ctl Pass (10/06/21 8:55 PM) Normal [facility] Man Sero SARS-CoV+SARS-CoV-2 (COVID-19) Ag IA.rapid Ql (Resp) Not Detected (10/06/21 8:55 PM) Normal Not Detected [facility] Man Sero No Panel Informationon 10-06 Blood Culture Charcoal No growth at 6 da ys. Final to follow at 7 days. [facility] Blood Culture Charcoal No growth at 6 da ys. Final to follow at 7 days. [facility] URINALYSISOrdered By: Jb jeter on 10-06-2021 [...] (10/06/21 8:50 PM) Invalid Interpretation Code Negative [facility]A Auto SS Hemoglobin Ql (U) Negative (10/06/21 8:50 PM) Normal Negative [facility] UA Auto SS Ketones (U) [Mass/Vol] Negative (10/06/21 8:50 PM) Normal Negative [facility] UA Auto SS Velarde.plasma/Velarde .RBC (Bld) [Mass ratio] 0-3 /HPF Normal 0-3/HPF [facility] UA Auto SS Mucus Ql (Urine sed) Trace (10/06/21 8:50 PM) Normal [facility] Auto SS Nitrite Ql (U) Negative [...] [facility] Auto SS UA Spec Desc Clean Catch (10/06/21 8:50 PM) Normal [facility] UA Auto SS Urobilinogen Qn (U) 0.5044809 {Gabby'U}/dL Normal 0.0 - 1.0 EU/dL [facility] [...] 11.8 g/dL Low 13.5 - 17.5 gm/dL [facility] HemeAutoSS MCH (RBC) [Entitic mass] 28.0 pg [...] 9.6 E9/L Normal 4.0 - 11.0 E9/L [facility] HemeAutoSS Tobacco Screening.on 022 Adult depression screening assessment No [facility] DO Work Phone: Fall risk assessment b) One or more fall s in the last year [facility] lk 600 DO Work Phone: Tobacco use status [facility] b) No [facility] lk 600 DO Work Phone: Comprehensive Metabolic Pane victor m 08-11-2021 Albumin [Mass/Vol] 4.6 g/dL Normal 3.6-5.1 [facility] Coating Manager Comment on above: Performed By: #### C MP #### [facility] [address], [place] [id number] Albumin/Globulin [Mass ratio] 1.6 {ratio} Normal 1.0-2.5 [facility] Coating Manager Comment on above: Performed By: #### C MP #### [facility] [address] [place] [id number] ALP [Catalytic activity/Vol] 101 U/L Normal 40-129 [facility] Coating Manager Comment on above: Performed By: #### C MP #### [facility] [address], [place] [id number] ALT [Catalytic activity/Vol] 26 U/L Normal 9-46 [facility] Comment on above: Result Comment: 05/04 Female reference range changed. Performed By: #### C MP #### [facility] [address], [place] [id number] Anion gap [Moles/Vol] 20 mmol/L Normal 12-20 [facility] Comment on above: Result Comment: Effe ctive 06/09/2019 reference range changed. Performed By: #### C MP #### [facility] [address], [place] [id number] AST [Catalytic activity/Vol] 17 U/L Normal 10-40 [facility] Comment on above: Performed By: #### C MP #### [facility] [address], [place] [id number] BUN/CREA 19 Ratio Normal 6-22 [facility] Comment on above: Performed By: #### C MP #### [facility] [address], [place] [id number] Calcium [Mass/Vol] 9.0 mg/dL Normal 8.6-10.2 [facility] Comment on above: Performed By: #### C MP #### [facility] [address], [place] [id number] Chloride [Moles/Vol] 101 mmol/L Normal 98-107 [facility] Comment on above: Performed By: #### C MP #### [facility] [address], [place] [id number] CO2 [Moles/Vol] 24 mmol/L Normal 20-31 [facility] Comment on above: Performed By: #### C MP #### [facility] [address], [place] [id number] Creatinine [Mass/Vol] 1.4 mg/dL Normal 0.7-1.4 [facility] Comment on above: Performed By: #### C MP #### [facility] [address] [facility] [place] [id number] eGFRAA 63 mL/min/1.73m2 Normal >60 [facility] [place] Coating Manager Comment on above: Performed By: #### C MP #### [facility] [address], [place] [id number] eGFRNAA 52 mL/min/1.73m2 Low >60 [facility] Comment on above: Performed By: #### C MP #### [facility] [address], [place] [id number] Globulin (S) [Mass/Vol] 2.8 g/dL Normal 1.9-3.7 [facility] Comment on above: Performed By: #### C MP #### [facility] [address], [place] [id number] Glucose [Mass/Vol] 197 mg/dL High 65-99 [facility] Comment on above: Result Comment: For FASTING Glucose --- ADA reference ranges: Normal 65-99 mg/dl Prediabetes 100-125 Diabetes >/= 126 Performed By: #### C MP #### [facility] [address], [place] [id number] Potassium [Moles/Vol] 5.1 mmol/L Normal 3.5-5.5 [facility] Comment on above: Performed By: #### C MP #### [facility] [address], [place] [id number] Protein [Mass/Vol] 7.4 g/dL Normal 6.1-8.1 [facility] Comment on above: Performed By: #### C MP #### [facility] [address], [place] [id number] Sodium [Moles/Vol] 140 mmol/L Normal 135-146 [facility] Comment on above: Performed By: #### C MP #### [facility] [address], [place] [id number] TBIL <0.3 Normal [facility] Comment on above: Performed By: #### C MP #### [facility] [address], [place] [id number] Urea nitrogen [Mass/Vol] 25 mg/dL Normal 7-25 [facility] Comment on above: Performed By: #### C MP #### [facility] [address], [place] [id number] Complete Blood Count with Au to Diffon 07-27-2021 Basophils (Bld) [#/Vol] 0.11 10*3/uL Normal 0.00-0.20 [facility] Specialist Comment on above: Performed By: #### Talya HUNT, CMP #### [facility] [address], [place] [id number] Basophils/100 WBC (Bld) 0.9 % Normal [facility] Specialist Comment on above: Performed By: #### C MARILEE, CMP #### [facility] [address], [place] [id number] Eosinophils (Bld) [#/Vol] 0.24 10*3/uL Normal 0.02-0.50 [facility] Specialist Comment on above: Performed By: #### Talya HUNT, CMP #### [facility] [address], [place] [id number] Eosinophils/100 WBC (Bld) 2.1 % Normal [facility] Specialist Comment on above: Performed By: #### Talya HUNT, CMP #### [facility] [address], [place] [id number] Erythrocyte distribution width (RBC) [Ratio] 16.9 % High 11.0-15.0 [facility] Coating Manager Comment on above: Performed By: #### Talya HUNT, CMP #### [facility] [address], [place] [id number] Hematocrit (Bld) [Volume fraction] 35.1 % Low 38.5-50.0 [facility] Specialist Comment on above: Performed By: #### C MARILEE, CMP #### [facility] [address], [place] [id number] Hemoglobin (Bld) [Mass/Vol] 10.7 g/dL Low 13.0-17.1 [facility] Coating Manager Comment on above: Performed By: #### C MARILEE, CMP #### [facility] [address], [place] [id number] Lymphocytes (Bld) [#/Vol] 2.0 10*3/uL Normal 0.9-3.9 [facility] Coating Manager Comment on above: Performed By: #### C MARILEE, CMP #### [facility] [address], [place] [id number] Lymphocytes/100 WBC (Bld) 17.4 % Normal [facility] Specialist Comment on above: Performed By: #### C MARILEE, CMP #### [facility] [address], [place] [id number] MCH (RBC) [Entitic mass] 26.8 pg Low 27.0-33.0 [facility] Comment on above: Performed By: #### C MARILEE, CMP #### [facility] [address], [place] [id number] MCHC (RBC) [Mass/Vol] 30.5 g/dL Low 32.0-36.0 [facility] Comment on above: Performed By: #### C MARILEE, CMP #### [facility] [address], [place] [id number] MCV (RBC) [Entitic vol] 88 fL Normal 80-100 [facility] Comment on above: Performed By: #### C MARILEE, CMP #### [facility] [address], [place] [id number] Monocytes (Bld) [#/Vol] 0.8 10*3/uL Normal 0.2-0.9 [facility] Comment on above: Performed By: #### C MARILEE, CMP #### [facility] [address], [place] [id number] Monocytes/100 WBC (Bld) 6.4 % Normal [facility] Comment on above: Performed By: #### C MARILEE, CMP #### [facility] [address], [place] [id number] Neutrophils (Bld) [#/Vol] 8.4 10*3/uL High 1.5-7.8 [facility] Comment on above: Performed By: #### C BCAJacob, CMP #### [facility] [address], [place] [id number] Neutrophils/100 WBC (Bld) 71.9 % Normal [facility] Specialist Comment on above: Performed By: #### C MARILEE, CMP #### [facility] [address], [place] [id number] Platelet mean volume (Bld) [Entitic vol] 9.00 fL Normal 7.50-12.50 [facility] Comment on above: Performed By: #### C MARILEE, CMP #### [facility] [address], [place] [id number] Platelets (Bld) [#/Vol] 406 10*3/uL High 140-400 [facility] Comment on above: Performed By: #### C MARILEE, CMP #### [facility] [address], [place] [id number] RBC (Bld) [#/Vol] 3.99 10*6/uL Low 4.20-5.80 [facility] Comment on above: Performed By: #### C MARILEE, CMP #### [facility] [address], [place] [id number] RDW-SD 54.1 fL High 37.0-50.0 [facility] Specialist Comment on above: Performed By: #### C MARILEE, CMP #### [facility] [address], [place] [id number] WBC (Bld) [#/Vol] 11.7 10*3/uL High 3.8-11.0 [facility] Comment on above: Performed By: #### C MARILEE, CMP #### [facility] [address], [place] [id number] Comprehensive Metabolic Pane victor m 07-27-2021 Albumin [Mass/Vol] 4.7 g/dL Normal 3.6-5.1 [facility] Comment on above: Performed By: #### C BCAD, CMP #### [facility] [address], [place] [id number] Albumin/Globulin [Mass ratio] 1.5 {ratio} Normal 1.0-2.5 [facility] Comment on above: Performed By: #### C BCAD, CMP #### [facility] [address], [place] [id number] ALP [Catalytic activity/Vol] 137 U/L High 40-129 [facility] Comment on above: Performed By: #### C BCAD, CMP #### [facility] [address] [facility] [place] [id number] ALT [Catalytic activity/Vol] 43 U/L Normal 9-46 [facility] Comment on above: Result Comment: 05/04 Female reference range changed. Performed By: #### C BCAD, CMP #### [facility] [address] [place], [place] [id number] Anion gap [Moles/Vol] 27 mmol/L High 12-20 [facility] Comment on above: Result Comment: Effe ctive 06/09/2019 reference range changed. Performed By: #### C BCAD, CMP #### [facility] [address] [place] [id number] AST [Catalytic activity/Vol] 30 U/L Normal 10-40 [facility] Comment on above: Performed By: #### C BCAD, CMP #### [facility] [address] [facility] [place] [id number] Bilirubin [Mass/Vol] 0.32 mg/dL Normal 0.30-1.20 [facility] Comment on above: Performed By: #### C BCAD, CMP #### [facility] [address] [facility] [place] [id number] BUN/CREA 29 Ratio High 6-22 [facility] Comment on above: Performed By: #### C BCAD, CMP #### [facility] [address] [facility] [id number] Calcium [Mass/Vol] 9.3 mg/dL Normal 8.6-10.2 [facility] Comment on above: Performed By: #### C BCAD, CMP #### [facility] [address] [place], [place] [id number] Chloride [Moles/Vol] 93 mmol/L Low 98-107 [facility] Comment on above: Performed By: #### C BCAD, CMP #### [facility] [address] [facility] [place] [id number] CO2 [Moles/Vol] 21 mmol/L Normal 20-31 [facility] Comment on above: Performed By: #### C BCAD, CMP #### [facility] [address], [place] [id number] Creatinine [Mass/Vol] 1.7 mg/dL High 0.7-1.4 [facility] Specialist Comment on above: Performed By: #### C BCAD, CMP #### [facility] [address], [place] [id number] eGFRAA 49 mL/min/1.73m2 Low >60 [facility] Specialist Comment on above: Performed By: #### C BCAD, CMP #### [facility] [address], [place] [id number] eGFRNAA 40 mL/min/1.73m2 Low >60 [facility] Specialist Comment on above: Performed By: #### C BCAD, CMP #### [facility] [address], [place] [id number] Globulin (S) [Mass/Vol] 3.2 g/dL Normal 1.9-3.7 [facility] Coating Manager Comment on above: Performed By: #### C BCAD, CMP #### [facility] [address], [place] [id number] Glucose [Mass/Vol] 260 mg/dL High 65-99 [facility] Coating Manager Comment on above: Result Comment: For FASTING Glucose --- ADA reference ranges: Normal 65-99 mg/dl Prediabetes 100-125 Diabetes >/= 126 Performed By: #### C BCAD, CMP #### [facility] [address], [place] [id number] Potassium [Moles/Vol] 5.4 mmol/L Normal 3.5-5.5 [facility] Specialist Comment on above: Performed By: #### C BCAD, CMP #### [facility] [address], [place] [id number] Protein [Mass/Vol] 7.9 g/dL Normal 6.1-8.1 [facility] Coating Manager Comment on above: Performed By: #### C BCAD, CMP #### [facility] [address], [place] [id number] Sodium [Moles/Vol] 136 mmol/L Normal 135-146 [facility] Coating Manager Comment on above: Performed By: #### C BCAD, CMP #### [facility] [address] [place], [place] [id number] Urea nitrogen [Mass/Vol] 49 mg/dL High 7-25 [facility] Coating Manager Comment on above: Performed By: #### C JOSE HUNT #### [facility] [address], [place] [id number] Tobacco Screening.on 022 Fall risk assessment b) One or more fall s in the last year [facility] [employer] lk 600 DO Work Phone: Tobacco use status [facility] b) No [facility] Miley lk 600 DO Work Phone: Laboratory - Microbiology an d Antimicrobial susceptibilityon 05-10-2021 SARS-CoV-2 (COVID-19) RNA JOLANTA+probe Ql (Unsp spec) [facility] [employer]jarrez [address] [place] Work Phone: Tobacco Screening.on 021 Fall risk assessment a) No falls within the last year [facility] [employer] manjarrez [address] [place] Work Phone: Tobacco use status [facility] b) No [facility] [employer] manjarrez [address] [place] Work Phone: No Panel Informationon 04-27 Normal [facility] [employer] manjarrez [address] [place] Work Phone: Falls Risk Screeningon 03-15 Fall risk assessment b) One or more fall s in the last year [facility] [employer] manjarrez 250 DO Work Phone: Heart Rate Bounding [facility] [employer] manjarrez 250 DO Work Phone: IO EKG Electrocardiogram- 12 Leadon 03-15-2021 IO EKG Electrocardiogram- 12 Lead See Scanned Document [facility] [employer] manjarrez 250 DO Work Phone: Vital Signs Date Time Vital Sign Value Performing Clinician Facility 04-03-2024 11:30-0400 Body height 177.8 cm Felipa Milligan MD Work Phone: [facility] 04-03-2024 11:30-0400 Diastolic blood pressure 64 mm[Hg] Felipa Milligan MD Work Phone: [facility] 04-03-2024 11:30-0400 Heart rate 60 /min Felipa Milligan MD Work Phone: [facility] 04-03-2024 11:30-0400 Systolic blood pressure 124 mm[Hg] Felipa Milligan MD Work Phone: [facility] 03-31-2024 13:21-0400 Diastolic blood pressure 73 mm[Hg] Cayden Rosee [facility] 03-31-2024 13:21-0400 Heart rate 60 /min Cayden Rosee [facility] 03-31-2024 13:21-0400 Mean blood pressure 102 mm[Hg] Cayden Rosee [facility] 03-31-2024 13:21-0400 Respiratory rate 18 /min Cayden Rosee [facility] 03-31-2024 13:21-0400 SaO2% (BldA) [Mass fraction] 96 % Cayden Zina [facility] 03-31-2024 13:21-0400 Systolic blood pressure 161 mm[Hg] Cayden Zina [facility] 03-31-2024 12:27-0400 Diastolic blood pressure 68 mm[Hg] Cayden Zina [facility] 03-31-2024 12:27-0400 Heart rate 60 /min Cayden Rosee [facility] 03-31-2024 12:27-0400 Mean blood pressure 93 mm[Hg] Cayden Zina [facility] 03-31-2024 12:27-0400 Respiratory rate 18 /min Cayden Rosee [facility] 03-31-2024 12:27-0400 SaO2% (BldA) [Mass fraction] 95 % Cayden Izaguirre [facility] 03-31-2024 12:27-0400 Systolic blood pressure 144 mm[Hg] Cayden Izaguirre [facility] 03-31-2024 11:45-0400 Body temperature 97.7 [degF] Cayden Rosee [facility] 03-31-2024 11:45-0400 Diastolic blood pressure 72 mm[Hg] Cayden Izaguirre [facility] 03-31-2024 11:45-0400 Heart rate 60 /min Cayden Izaguirre [facility] 03-31-2024 11:45-0400 Respiratory rate 18 /min Cayden Izaguirre [facility] 03-31-2024 11:45-0400 SaO2% (BldA) [Mass fraction] 96 % aCyden Izaguirre [facility] 03-31-2024 11:45-0400 Systolic blood pressure 152 mm[Hg] Cayden Izaguirre [facility] 03-31-2024 11:30-0400 Body temperature 98.78 [degF] Cayden Izaguirre [facility] 03-31-2024 11:30-0400 Heart rate 60 /min Cayden Izaguirre [facility] 03-12-2024 10:37-0400 Body height 177.8 cm Chayo LAU Work Phone: [facility] 03-12-2024 10:37-0400 Body mass index (BMI) [Ratio] 31.57 kg/m2 Chayo LAU Work Phone: [facility] 03-12-2024 10:37-0400 Body weight 99.79 kg Chayokrystle Fernandez PA Work Phone: [facility] 03-12-2024 10:37-0400 Diastolic blood pressure 84 mm[Hg] Chayo Jim PA Work Phone: [facility] 03-12-2024 10:37-0400 Heart rate 60 /min Chayo Fernandez PA Work Phone: [facility] 03-12-2024 10:37-0400 Respiratory rate 16 /min Chayo Fernandez PA Work Phone: [facility] 03-12-2024 10:37-0400 SaO2% (BldA) [Mass fraction] 95 % Chayo Fernandez PA Work Phone: [facility] 03-12-2024 10:37-0400 Systolic blood pressure 144 mm[Hg] Chayo Fernandez PA Work Phone: [facility] 03-06-2024 13:46-0400 Body height 177.8 cm Mona Baker MD Work Phone: [facility] 03-06-2024 13:46-0400 Body mass index (BMI) [Ratio] 31.6 kg/m2 Mona Baker MD Work Phone: [facility] 03-06-2024 13:46-0400 Body temperature 97.81 [degF] Mona Baker MD Work Phone: [facility] 03-06-2024 13:46-0400 Body weight 99.88 kg Mona Baker MD Work Phone: [facility] 03-06-2024 13:46-0400 Diastolic blood pressure 70 mm[Hg] Mona Baker MD Work Phone: [facility] 03-06-2024 13:46-0400 Heart rate 60 /min Mona Baker MD Work Phone: [facility] 03-06-2024 13:46-0400 SaO2% (BldA) [Mass fraction] 97 % Mona Baker MD Work Phone: [facility] 03-06-2024 13:46-0400 Systolic blood pressure 120 mm[Hg] Mona Baker MD Work Phone: [facility] 03-04-2024 14:00-0400 [facility] 03-04-2024 14:00-0400 Promise to Return [facility] 03-04-2024 13:23-0400 [facility] 03-04-2024 13:23-0400 [facility] Return [facility] 03-04-2024 12:45-0400 Heart rate 68 /min [facility] 03-04-2024 12:45-0400 Respiratory rate 20 /min [facility] 03-04-2024 12:38-0400 Heart rate 67 /min [facility] 03-04-2024 12:38-0400 Respiratory rate 20 /min [facility] 03-04-2024 12:00-0400 [facility] 03-04-2024 12:00-0400 Promise [facility] Return [facility] 03-04-2024 11:15-0400 Heart rate 60 /min [facility] 03-04-2024 11:15-0400 SaO2% (BldA) [Mass fraction] 94 % [facility] 03-04-2024 11:14-0400 Diastolic blood pressure 64 mm[Hg] [facility] 03-04-2024 11:14-0400 Mean blood pressure 78 mm[Hg] [facility] 03-04-2024 11:14-0400 Systolic blood pressure 106 mm[Hg] [facility]-04-[facility] 11:13-0400 Body temperature 98.6 [degF] [facility]-04-[facility] 09:34-0400 SaO2% (BldA) [Mass fraction] 94 % [facility] 03-04-2024 08:41-0400 Respiratory rate 18 /min [facility] 03-04-2024 08:41-0400 SaO2% (BldA) [Mass fraction] 100 % [facility] 03-04-2024 08:16-0400 Diastolic blood pressure 70 mm[Hg] [facility] 03-04-2024 08:16-0400 Systolic blood pressure 144 mm[Hg] [facility] 03-04-2024 07:44-0400 Diastolic blood pressure 70 mm[Hg] [facility] 03-04-2024 07:44-0400 Mean blood pressure 95 mm[Hg] [facility] 03-04-2024 07:44-0400 Systolic blood pressure 144 mm[Hg] [facility] 03-04-2024 07:44-0400 Body temperature 98.06 [degF] [facility] 03-04-2024 02:21-0400 Blood Pressure Location [facility] 03-04-2024 02:21-0400 Body temperature 98.24 [degF] [facility] 03-04-2024 02:21-0400 Mean blood pressure 84 mm[Hg] [facility] 03-03-2024 21:42-0400 Mean blood pressure 89 mm[Hg] [facility] 03-03-[facility]24 21:41-0400 Body temperature 98.06 [degF] [facility] 03-03-2024 05:00-0400 Blood Pressure Location [facility] 03-03-2024 05:00-0400 Body temperature 97.52 [degF] [facility] 03-03-2024 05:00-0400 Mean blood pressure 113 mm[Hg] [facility] 03-03-2024 05:00-0400 Respiratory rate 18 /min [facility] 03-03-2024 00:00-0400 Blood Pressure Location [facility] 03-03-2024 00:00-0400 Mean blood pressure 107 mm[Hg] [facility] 03-03-2024 00:00-0400 Respiratory rate 18 /min [facility] 03-02-2024 12:30-0400 Body temperature 98.24 [degF] [facility] 03-02-2024 12:30-0400 Heart rate 63 /min [facility] 03-02-2024 11:54-0400 Respiratory rate 20 /min [facility] 03-02-2024 08:25-0400 SaO2% (BldA) [Mass fraction] 92.8 % [facility] 03-02-2024 08:08-0400 Heart rate 67 /min [facility] 01-23-2024 11:34-0400 Blood Pressure Location [facility] Diggs [facility] 01-23-2024 11:34-0400 Diastolic blood pressure 70 mm[Hg] [facility] Diggs [facility] 01-23-2024 11:34-0400 Heart rate 60 /min Basem Diggs [facility] 01-23-2024 11:34-0400 SaO2% (BldA) [Mass fraction] 97 % Basem Diggs [facility] 01-23-2024 11:34-0400 Systolic blood pressure 125 mm[Hg] Basem Diggs [facility] 01-03-2024 14:51-0400 Body height 177.8 cm MD Mona Baker Work Phone: [facility] 01-03-2024 14:51-0400 Body mass index (BMI) [Ratio] 32.5 kg/m2 MD Mona Baker Work Phone: [facility] 01-03-2024 14:51-0400 Body temperature 97.8 [degF] MD Mona Baker Work Phone: [facility] 01-03-2024 14:51-0400 Body weight 102.96 kg MD Mona Baker Work Phone: [facility] 01-03-2024 14:51-0400 Diastolic blood pressure 73 mm[Hg] MD Mona Baker Work Phone: [facility] 01-03-2024 14:51-0400 Heart rate 60 /min MD Mona Baker Work Phone: [facility] 01-03-2024 14:51-0400 Systolic blood pressure 160 mm[Hg] MD Mona Baker Work Phone: [facility] 12-05-2023 10:09-0400 Diastolic blood pressure 70 mm[Hg] Basem Diggs [facility] 12-05-2023 10:09-0400 Heart rate 61 /min Basem Diggs [facility] 12-05-2023 10:09-0400 Respiratory rate 16 /min Nicolás Diggs [facility] 12-05-2023 10:09-0400 SaO2% (BldA) [Mass fraction] 96 % Nicolás Diggs [facility] 12-05-2023 10:09-0400 Systolic blood pressure 126 mm[Hg] Basejens Diggs [facility] 11-26-2023 13:56-0400 Body height 177.8 cm MD Mona Baker Work Phone: [facility] 11-26-2023 13:56-0400 Body mass index (BMI) [Ratio] 33 kg/m2 MD Mona Baker Work Phone: [facility] 11-26-2023 13:56-0400 Body temperature 98.5 [degF] MD Mona Baker Work Phone: [facility] 11-26-2023 13:56-0400 Body weight 104.32 kg MD Mona Baker Work Phone: [facility] 11-26-2023 13:56-0400 Diastolic blood pressure 52 mm[Hg] MD Mona Baker Work Phone: [facility] 11-26-2023 13:56-0400 Heart rate 59 /min MD Mona Baker Work Phone: [facility] 11-26-2023 13:56-0400 Systolic blood pressure 125 mm[Hg] MD Mona Baker Work Phone: [facility] 11-22-2023 14:00-0400 Blood Pressure Location Armani Yarbrough [facility] 11-22-2023 14:00-0400 Body temperature 98.24 [degF] Armani Yarbrough [facility] 11-22-2023 14:00-0400 Diastolic blood pressure 71 mm[Hg] [facility] 11-22-2023 14:00-0400 Heart rate 59 /min [facility] 11-22-2023 14:00-0400 Respiratory rate 18 /min [facility] 11-22-2023 14:00-0400 SaO2% (BldA) [Mass fraction] 92 % [facility] 11-22-2023 14:00-0400 Systolic blood pressure 145 mm[Hg] [facility] 11-15-2023 14:42-0400 Blood Pressure Location [facility] 11-15-2023 14:42-0400 Body temperature 98.6 [degF] [facility] 11-15-2023 14:42-0400 Diastolic blood pressure 73 mm[Hg] [facility] 11-15-2023 14:42-0400 Heart rate 58 /min [facility] 11-15-2023 14:42-0400 Mean blood pressure 99 mm[Hg] [facility] 11-15-2023 14:42-0400 Respiratory rate 16 /min [facility] 11-15-2023 14:42-0400 SaO2% (BldA) [Mass fraction] 94 % [facility] 11-15-2023 14:42-0400 Systolic blood pressure 152 mm[Hg] [facility] 10-31-2023 13:56-0400 Body temperature 98.6 [degF] [facility] 10-31-2023 13:56-0400 Diastolic blood pressure 66 mm[Hg] [facility] 10-31-2023 13:56-0400 Heart rate 59 /min [facility] 10-31-2023 13:56-0400 Mean blood pressure 81 mm[Hg] [facility] 10-31-2023 13:56-0400 Respiratory rate 16 /min Armani Yarbrough [facility] 10-31-2023 13:56-0400 SaO2% (BldA) [Mass fraction] 95 % Armani Yarbrough [facility] 10-31-2023 13:56-0400 Systolic blood pressure 112 mm[Hg] Armani Yarbrough [facility] 10-30-2023 11:18-0400 Body height 177.8 cm Ye Lobo MD Work Phone: [facility] 10-30-2023 11:18-0400 Body mass index (BMI) [Ratio] 32.57 kg/m2 Ye Lobo MD Work Phone: [facility] 10-30-2023 11:18-0400 Body weight 102.97 kg Ye Lobo MD Work Phone: [facility] 10-30-2023 11:18-0400 Diastolic blood pressure 63 mm[Hg] Ye Lobo MD Work Phone: [facility] 10-30-2023 11:18-0400 Heart rate 68 /min Ye Lobo MD Work Phone: [facility] 10-30-2023 11:18-0400 Respiratory rate 16 /min Ye Lobo MD Work Phone: [facility] 10-30-2023 11:18-0400 SaO2% (BldA) [Mass fraction] 94 % Ye Lobo MD Work Phone: [facility] 10-30-2023 11:18-0400 Systolic blood pressure 130 mm[Hg] Ye Lobo MD Work Phone: [facility] 10-18-2023 15:30-0400 Body height 177.8 cm MD Mona Baker Work Phone: [facility] 10-18-2023 15:30-0400 Body mass index (BMI) [Ratio] 32.5 kg/m2 MD Mona Baker Work Phone: [facility] 10-18-2023 15:30-0400 Body temperature 97.8 [degF] MD Mona Baker Work Phone: [facility] 10-18-2023 15:30-0400 Body weight 103 kg MD Mona Baker Work Phone: [facility] 10-18-2023 15:30-0400 Diastolic blood pressure 59 mm[Hg] MD Mona Baker Work Phone: [facility] 10-18-2023 15:30-0400 Heart rate 59 /min MD Mona Baker Work Phone: [facility] 10-18-2023 15:30-0400 Systolic blood pressure 134 mm[Hg] MD Mona Baker Work Phone: [facility] 10-17-2023 10:38-0400 Body height 177.8 cm Felipa Milligan MD Work Phone: [facility] 10-17-2023 10:38-0400 Body mass index (BMI) [Ratio] 32.28 kg/m2 Felipa Milligan MD Work Phone: [facility] 10-17-2023 10:38-0400 Body weight 102.06 kg Felipa Milligan MD Work Phone: [facility] 10-17-2023 10:38-0400 Diastolic blood pressure 66 mm[Hg] Felipa Milligan MD Work Phone: [facility] 10-17-2023 10:38-0400 Heart rate 60 /min Felipa Milligan MD Work Phone: [facility] 10-17-2023 10:38-0400 Systolic blood pressure 126 mm[Hg] Felipa Milligan MD Work Phone: [facility] 09-06-2023 09:01-0400 Diastolic blood pressure 57 mm[Hg] MD Mona Baker Work Phone: [facility] 09-06-2023 09:01-0400 Heart rate 60 /min MD Mona Baker Work Phone: [facility] 09-06-2023 09:01-0400 Respiratory rate 16 /min MD Mona Baker Work Phone: [facility] 09-06-2023 09:01-0400 SaO2% (BldA) [Mass fraction] 96 % MD Mona Baker Work Phone: [facility] 09-06-2023 09:01-0400 Systolic blood pressure 124 mm[Hg] MD Mona Baker Work Phone: [facility] 09-06-2023 07:29-0400 Body height 177.8 cm MD Mona Baker Work Phone: [facility] 09-06-2023 07:29-0400 Body weight 99.79 kg MD Mona Baker Work Phone: [facility] 08-29-2023 15:00-0400 Hourly Rounding [facility] 08-29-2023 15:00-0400 Promise to Return [facility] 08-29-2023 14:00-0400 Diastolic blood pressure 61 mm[Hg] [facility] 08-29-2023 14:00-0400 Heart rate 61 /min [facility] 08-29-2023 14:00-0400 Hourly Rounding [facility] 08-29-2023 14:00-0400 Promise to Return [facility] 08-29-2023 14:00-0400 Systolic blood pressure 124 mm[Hg] [facility] 08-29-2023 13:00-0400 Hourly Rounding [facility] 08-29-2023 13:00-0400 Promise to Return [facility] 08-29-2023 11:59-0400 gluc 205 mg/dL [facility] 08-29-2023 11:33-0400 Heart rate 60 /min [facility] 08-29-2023 11:33-0400 SaO2% (BldA) [Mass fraction] 98 % [facility] 08-29-2023 11:32-0400 Respiratory rate 17 /min [facility] 08-29-2023 11:25-0400 Diastolic blood pressure 67 mm[Hg] [facility] 08-29-2023 11:25-0400 Mean blood pressure 90 mm[Hg] [facility] 08-29-2023 11:25-0400 Systolic blood pressure 136 mm[Hg] [facility] 08-29-2023 11:25-0400 Body temperature 98.42 [degF] [facility] 08-29-2023 08:27-0400 gluc 109 mg/dL [facility] 08-29-2023 08:14-0400 Heart rate 60 /min [facility] 08-29-2023 08:14-0400 SaO2% (BldA) [Mass fraction] 96 % [facility] 08-29-2023 08:14-0400 Respiratory rate 20 /min [facility] 08-29-2023 08:08-0400 Diastolic blood pressure 82 mm[Hg] [facility] 08-29-2023 08:08-0400 Mean blood pressure 96 mm[Hg] [facility] 08-29-2023 08:08-0400 Systolic blood pressure 125 mm[Hg] [facility] 08-29-2023 08:08-0400 Body temperature 98.42 [degF] [facility] 08-29-2023 08:08-0400 Mean blood pressure 96 mm[Hg] Rosi [facility] 08-29-2023 00:05-0400 Blood Pressure Location [facility] 08-29-2023 00:05-0400 Body temperature 98.42 [degF] [facility] 08-29-2023 00:05-0400 Respiratory rate 16 /min [facility] 08-29-2023 00:05-0400 SaO2% (BldA) [Mass fraction] 94 % [facility] 08-28-2023 20:19-0400 Body temperature 98.06 [degF] [facility] 08-28-2023 20:19-0400 Mean blood pressure 76 mm[Hg] [facility] 08-28-2023 15:00-0400 gluc 185 mg/dL [facility] 08-28-2023 15:00-0400 Respiratory rate 18 /min [facility] 08-28-2023 04:00-0400 Body temperature 98.24 [degF] [facility] 08-28-2023 04:00-0400 Heart rate 60 /min [facility] 08-28-2023 04:00-0400 Mean blood pressure 87 mm[Hg] Rosi [facility] 08-28-2023 01:49-0400 Blood Pressure Location [facility] 08-28-2023 01:49-0400 Body temperature 97.52 [degF] [facility] 08-28-2023 01:49-0400 Heart rate 60 /min [facility] 08-28-2023 01:25-0400 Mean blood pressure 88 mm[Hg] Rosi Mendez [facility] 08-28-2023 01:25-0400 Respiratory rate 10 /min Rosi Mendez [facility] 08-28-2023 00:45-0400 Respiratory rate 12 /min Rosifozia Mendez [facility] 08-27-2023 20:38-0400 Heart rate 60 /min Rosifozia Mendez [facility] 07-16-2023 13:15-0500 Body height 177.8 cm Janusz Ruiz Other [facility] [employer] Other 07-16-2023 13:15-0500 Body mass index (BMI) [Ratio] 32.71 kg/m2 Janusz Ruiz Other [employer] [facility] [employer] Other 07-16-2023 13:15-0500 Body temperature 97.4 [degF] Janusz Ruiz Other [employer] [facility] [employer] Other 07-16-2023 13:15-0500 Body weight 103.42 kg Janusz Ruiz Other [employer] Other 07-16-2023 13:15-0500 Diastolic blood pressure 55 mm[Hg] Janusz Ruiz Other [employer] Other 07-16-2023 13:15-0500 Systolic blood pressure 146 mm[Hg] Janusz Ruiz Other [employer] Other 06-17-2023 16:29-0500 Inhaled oxygen flow rate 2 L/min MD Mona Baker [facility] 06-17-2023 16:27-0500 SaO2% (BldA) [Mass fraction] 96 % [facility] 06-17-2023 15:56-0500 Heart rate 60 /min MD Mona Baker [facility] 06-17-2023 15:53-0500 Body height 172.72 cm [facility] 06-17-2023 15:53-0500 Body weight 104.77 kg [facility] 06-17-2023 15:52-0500 Body temperature 98.3 [degF] Mona [place] 06-17-2023 15:52-0500 Diastolic blood pressure 67 mm[Hg] [facility]-17-2023 15:52-0500 Respiratory rate 18 /min MD Dunn [place] 06-17-2023 15:52-0500 Systolic blood pressure 146 mm[Hg] Mona [facility] 04-12-2023 09:00-0500 Blood Pressure Location [facility] 04-12-2023 09:00-0500 Body temperature 97.88 [degF] [facility] 04-12-2023 09:00-0500 Diastolic blood pressure 64 mm[Hg] [facility] 04-12-2023 09:00-0500 Heart rate 60 /min [facility] 04-12-2023 09:00-0500 Mean blood pressure 80 mm[Hg] [facility] 04-12-2023 09:00-0500 Respiratory rate 18 /min [facility] 04-12-2023 09:00-0500 SaO2% (BldA) [Mass fraction] 95 % [facility] 04-12-2023 09:00-0500 Systolic blood pressure 113 mm[Hg] [facility] 04-09-2023 09:23-0500 Blood Pressure Location Nicolás Diggs [facility] 04-09-2023 09:23-0500 Diastolic blood pressure 58 mm[Hg] Basem Diggs [facility] 04-09-2023 09:23-0500 Heart rate 60 /min Nicolás Diggs [facility] 04-09-2023 09:23-0500 SaO2% (BldA) [Mass fraction] 98 % Basejens Diggs [facility] 04-09-2023 09:23-0500 Systolic blood pressure 105 mm[Hg] Basejens Diggs [facility] 04-04-2023 12:08-0400 Body height 177.8 cm Felipa Milligan MD Work Phone: [facility] 04-04-2023 12:08-0400 Body mass index (BMI) [Ratio] 31.71 kg/m2 Felipa Milligan MD Work Phone: [facility] 04-04-2023 12:08-0400 Body weight 100.25 kg Felpia Milligan MD Work Phone: [facility] 04-04-2023 12:08-0400 Diastolic blood pressure 62 mm[Hg] Felipa Milligan MD Work Phone: [facility] 04-04-2023 12:08-0400 Heart rate 60 /min Felipa Milligan MD Work Phone: [facility] 04-04-2023 12:08-0400 Systolic blood pressure 110 mm[Hg] Felipa Milligan MD Work Phone: [facility] 03-26-2023 13:31-0400 Body height 177.8 cm Jackie Mcginnis MD Work Phone: [facility] 03-26-2023 13:31-0400 Body mass index (BMI) [Ratio] 31.71 kg/m2 Jackie Mcginnis MD Work Phone: [facility] 03-26-2023 13:31-0400 Body weight 100.25 kg Jackie Mcginnis MD Work Phone: [facility] 03-26-2023 13:31-0400 Diastolic blood pressure 64 mm[Hg] Jackie Mcginnis MD Work Phone: [facility] 03-26-2023 13:31-0400 Heart rate 58 /min Jackie Mcginnis MD Work Phone: [facility] 03-26-2023 13:31-0400 Systolic blood pressure 139 mm[Hg] Jackie Mcginnis MD Work Phone: [facility] 02-20-2023 14:17-0400 Diastolic blood pressure 67 mm[Hg] Keisha Littleiremma HORTICULTURE SUPERINTENDENT - METEOROLOGICAL OBSERVER Work Phone: [employer] 02-20-2023 14:17-0400 Heart rate 60 /min Keisha Quirk HORTICULTURE SUPERINTENDENT - METEOROLOGICAL OBSERVER Work Phone: [employer] 02-20-2023 14:17-0400 Systolic blood pressure 146 mm[Hg] Keisha Quirk HORTICULTURE SUPERINTENDENT - METEOROLOGICAL OBSERVER Work Phone: [employer] 02-20-2023 14:16-0400 Body height 172.7 cm Keisha Quirk HORTICULTURE SUPERINTENDENT - METEOROLOGICAL OBSERVER Work Phone: [employer] 02-20-2023 14:16-0400 Body mass index (BMI) [Ratio] 34.85 kg/m2 Keisha Quirk HORTICULTURE SUPERINTENDENT - METEOROLOGICAL OBSERVER Work Phone: [employer] 02-20-2023 14:16-0400 Body weight 103.96 kg Keisha Quirk HORTICULTURE SUPERINTENDENT - METEOROLOGICAL OBSERVER Work Phone: [employer] 01-15-2023 13:00-0400 Body height 177.8 cm Janusz Ruiz Other [employer] Other 01-15-2023 13:00-0400 Body mass index (BMI) [Ratio] 33.14 kg/m2 Janusz Ruiz Other [employer] Other 01-15-2023 13:00-0400 Body temperature 97.7 [degF] Janusz Ruiz Other [employer] Other 01-15-2023 13:00-0400 Body weight 104.78 kg Janusz Ruiz Other [employer] Other 01-15-2023 13:00-0400 Diastolic blood pressure 56 mm[Hg] Janusz Ruiz Other [employer] Other 01-15-2023 13:00-0400 Systolic blood pressure 145 mm[Hg] Janusz Ruiz Other [employer] Other 11-20-2022 15:12-0400 Body height 177.8 cm Mona Ward Olivia Work Phone: HK-Oilkrbnzd-Dsgnmm ke [address] Work Phone: 11-20-2022 15:12-0400 Body mass index (BMI) [Ratio] 32.86 kg/m2 Mona Ward Olivia Work Phone: PH-Yexzupvgd-Wgjeon [facility] [address] Work Phone: 11-20-2022 15:12-0400 Body surface area Derived from formula 2.21 m2 Mona Ward Olivia Work Phone: CY-Vbxfwooap-Nokzbl [address] Work Phone: 11-20-2022 15:12-0400 Body weight 103.87 kg Mona Jens Olivia Work Phone: XS-Tpopczyju-Xtmrap [address] Work Phone: 11-20-2022 15:12-0400 Diastolic blood pressure 54 mm[Hg] Mona Ward Olivia Work Phone: EB-Ugupkjccv-Yaxwfy [address] Work Phone: 11-20-2022 15:12-0400 Heart rate 59 /min Mona M Olivia Work Phone: AN-Eblwzvybv-Kqzaau [address] Work Phone: 11-20-2022 15:12-0400 Systolic blood pressure 128 mm[Hg] Mona M Olivia Work Phone: YZ-Qvbxcttos-Iquzxm ke [address] Work Phone: 09-22-2022 15:18-0400 Body height 177.8 cm Mona M Olivia Work Phone: [facility] 600 DO Work Phone: 09-22-2022 15:18-0400 Body mass index (BMI) [Ratio] 32 kg/m2 Mona M Olivia Work Phone: [facility] 600 DO Work Phone: 09-22-2022 15:18-0400 Body surface area Derived from formula 2.19 m2 Mona M Olivia Work Phone: [facility] 600 DO Work Phone: 09-22-2022 15:18-0400 Body weight 101.15 kg Mona M Olivia Work Phone: [facility] 600 DO Work Phone: 09-22-2022 15:18-0400 Diastolic blood pressure 66 mm[Hg] Mona M Olivia Work Phone: [facility] 600 DO Work Phone: 09-22-2022 15:18-0400 Heart rate 60 /min Mona M Olivia Work Phone: [facility] 600 DO Work Phone: 09-22-2022 15:18-0400 Systolic blood pressure 128 mm[Hg] Mona M Olivia Work Phone: [facility] 600 DO Work Phone: 09-22-2022 12:02-0400 Blood Pressure Location Andi WARE [facility] 09-22-2022 12:02-0400 Diastolic blood pressure 63 mm[Hg] Andi WARE [facility] 09-22-2022 12:02-0400 Heart rate 69 /min Andi WARE [facility] 09-22-2022 12:02-0400 Respiratory rate 16 /min Andi WARE [facility] 09-22-2022 12:02-0400 Systolic blood pressure 112 mm[Hg] Andi WARE [facility] 08-16-2022 13:35-0400 Blood Pressure Location Andi WARE [facility] 08-16-2022 13:35-0400 Diastolic blood pressure 54 mm[Hg] Andi WARE [facility] 08-16-2022 13:35-0400 Heart rate 65 /min Andi WARE [facility] 08-16-2022 13:35-0400 Systolic blood pressure 124 mm[Hg] Andi WARE [facility] 08-09-2022 15:39-0500 Blood Pressure Location Andi WARE [facility] 08-09-2022 15:39-0500 Diastolic blood pressure 67 mm[Hg] Andi WARE [facility] 08-09-2022 15:39-0500 Heart rate 63 /min Andi WARE [facility] 08-09-2022 15:39-0500 Systolic blood pressure 141 mm[Hg] Andi WARE [facility] 07-31-2022 11:34-0500 Body height 177.8 cm Mona M Olivia Work Phone: [facility]Uffupcjom-Eobqcm ke B 101 DO Work Phone: 07-31-2022 11:34-0500 Body mass index (BMI) [Ratio] 32.57 kg/m2 Mona M Loivia Work Phone: IB-Zfdszuvjn-Hzperj ke B 101 DO Work Phone: 07-31-2022 11:34-0500 Body surface area Derived from formula 2.2 m2 Mona M Olivia Work Phone: LY-Cpupfqymp-Gftzkl ke B 101 DO Work Phone: 07-31-2022 11:34-0500 Body weight 102.97 kg Mona M Olivia Work Phone: YC-Gpterkzjs-Wtfuux ke B 101 DO Work Phone: 07-31-2022 11:34-0500 Diastolic blood pressure 62 mm[Hg] Mona M Olivia Work Phone: WU-Ulfhcgwec-Soaabd ke B 101 DO Work Phone: 07-31-2022 11:34-0500 Heart rate 58 /min Mona M Olivia Work Phone: BY-Ahlbdhkgu-Vborvo ke B 101 DO Work Phone: 07-31-2022 11:34-0500 Systolic blood pressure 137 mm[Hg] Mona M Olivia Work Phone: [facility] 101 DO Work Phone: 07-25-2022 13:25-0500 Diastolic blood pressure 58 mm[Hg] [facility]-25-[facility]22 13:25-0500 Heart rate 60 /min Mona [facility] 07-25-2022 13:25-0500 Respiratory rate 16 /min Mona Olivia [facility] 07-25-2022 13:25-0500 SaO2% (BldA) [Mass fraction] 92 % Mona [facility] 07-25-2022 13:25-0500 Systolic blood pressure 117 mm[Hg] [facility] 07-25-2022 12:13-0500 Body temperature 98.1 [degF] Mona [place] 07-25-2022 12:13-0500 Inhaled oxygen flow rate 8 L/min Mona [facility] 07-25-2022 10:54-0500 Body height 177.8 cm Mona [facility] 07-25-2022 10:54-0500 Body mass index (BMI) [Ratio] 32.5 kg/m2 Mona [facility] 07-25-2022 10:54-0500 Body weight 102.96 kg [facility] 07-17-2022 13:15-0500 Body height 177.8 cm Janusz Ruiz Other [employer] Other 07-17-2022 13:15-0500 Body mass index (BMI) [Ratio] 32.71 kg/m2 Janusz Ruiz Other [employer] Other 07-17-2022 13:15-0500 Body temperature 97.4 [degF] Janusz Ruiz Other [employer] Other 07-17-2022 13:15-0500 Body weight 103.42 kg Janusz Ruiz Other [employer] Other 07-17-2022 13:15-0500 Diastolic blood pressure 55 mm[Hg] Janusz Ruiz Other [employer] Other 07-17-2022 13:15-0500 Systolic blood pressure 129 mm[Hg] Janusz Ruiz Other [employer] Other 05-23-2022 12:03-0500 Diastolic blood pressure 65 mm[Hg] MD Mona Baker [facility] 05-23-2022 12:03-0500 Heart rate 60 /min [facility] 12:03-0500 Respiratory rate 14 /min MD Mona Baker [facility] 05-23-2022 12:03-0500 SaO2% (BldA) [Mass fraction] 93 % MD Mona Baker [facility] 05-23-2022 12:03-0500 Systolic blood pressure 127 mm[Hg] MD Mona Baker [facility] 05-23-2022 10:41-0500 Inhaled oxygen flow rate 6 L/min Monaandi Baker [facility] 05-23-2022 10:36-0500 Body temperature 97 [degF] MD Mona Baker [facility] 05-23-2022 09:07-0500 Body mass index (BMI) [Ratio] 33 kg/m2 MD Mona Baker [facility] 05-23-2022 08:47-0500 Body height 177.8 cm MD Mona Baker [facility] 05-23-2022 08:47-0500 Body weight 104.32 kg MD Mona Baker [facility] 05-14-2022 16:15-0500 Heart rate 63 /min MD Mona Baker [facility] 05-14-2022 16:15-0500 Respiratory rate 20 /min MD Moan Baker [facility] 05-14-2022 16:00-0500 Body temperature 97.8 [degF] MD Mona Baker [facility] 05-14-2022 16:00-0500 Diastolic blood pressure 71 mm[Hg] MD Mona Baker [facility] 05-14-2022 16:00-0500 SaO2% (BldA) [Mass fraction] 95 % MD Mona Baker [facility] 05-14-2022 16:00-0500 Systolic blood pressure 136 mm[Hg] MD Mona Baker [facility] 05-14-2022 08:00-0500 Inhaled oxygen flow rate 3 L/min MD Mona Baker [facility] 05-14-2022 06:00-0500 Body weight 116 kg Monaandi Baker [facility] 05-12-2022 15:19-0500 Body height 177.8 cm Monaandi Baker [facility] 05-12-2022 15:04-0500 Body temperature 97.5 [degF] MD Mona Baker [facility] 05-12-2022 14:30-0500 Diastolic blood pressure 63 mm[Hg] Monaandi Baker [facility] 05-12-2022 14:30-0500 Heart rate 60 /min MD Mona Baker [facility] 05-12-2022 14:30-0500 Respiratory rate 20 /min MD Mona Baker [facility] 05-12-2022 14:30-0500 SaO2% (BldA) [Mass fraction] 95 % MD Mona Baker [facility] 05-12-2022 14:30-0500 Systolic blood pressure 130 mm[Hg] MD Mona Baker [facility] 05-12-2022 10:46-0500 Body height 175.26 cm MD Mona Baker [facility] 05-12-2022 10:46-0500 Body weight 104.32 kg MD Mona Baker [facility] 03-31-2022 09:42-0400 Blood Pressure Location Basem Diggs [facility] 03-31-2022 09:42-0400 Diastolic blood pressure 64 mm[Hg] Basem Diggs [facility] 03-31-2022 09:42-0400 [facility] 60 /[facility] 03-31-2022 09:42-0400 SaO2% (BldA) [Mass fraction] 97 % [facility] 03-31-2022 09:42-0400 Systolic blood pressure 142 mm[Hg] [facility] 03-23-2022 09:12-0400 Blood Pressure Location Deshawn Gaffney [facility] 03-23-2022 09:12-0400 Diastolic blood pressure 82 mm[Hg] Deshawn Gaffney [facility] 03-23-2022 09:12-0400 Heart rate 60 /min Deshawn Gaffney [facility] 03-23-2022 09:12-0400 Systolic blood pressure 149 mm[Hg] Deshawn Gaffney [facility] 03-15-2022 10:28-0400 Body height 177.8 cm [employer] Work Phone: [facility] 600 DO Work Phone: 03-15-2022 10:28-0400 Body mass index (BMI) [Ratio] 33 kg/m2 [employer] Work Phone: [facility] 600 DO Work Phone: 03-15-2022 10:28-0400 Body surface area Derived from formula 2.22 m2 Mona Jens Olivia Work Phone: [facility] 600 DO Work Phone: 03-15-2022 10:28-0400 Body weight 104.33 kg Mona M Olivia Work Phone: [facility] 600 DO Work Phone: 03-15-2022 10:28-0400 Diastolic blood pressure 60 mm[Hg] Mona Jens Olivia Work Phone: [facility] 600 DO Work Phone: 03-15-2022 10:28-0400 Heart rate 60 /min Mona Jens Olivia Work Phone: [facility] 600 DO Work Phone: 03-15-2022 10:28-0400 Systolic blood pressure 130 mm[Hg] Mona Ward Olivia [facility] Phone: [facility] DO Work Phone: 03-09-2022 14:31-0400 Blood Pressure Location Deshawn Gaffney [facility] 03-09-2022 14:31-0400 Diastolic blood pressure 69 mm[Hg] Deshawn Gaffney [facility] 03-09-2022 14:31-0400 Heart rate 60 /min Deshawn Gaffney [facility] 03-09-2022 14:31-0400 Systolic blood pressure 125 mm[Hg] Deshawn Gaffney [facility] 02-11-2022 15:00-0400 Hourly Rounding Ronobir GUZMAN [facility] 02-11-2022 15:00-0400 Promise to Return Ronobir GUZMAN [facility] 02-11-2022 14:00-0400 Body temperature 98.06 [degF] Ronobir GUZMAN [facility] 02-11-2022 14:00-0400 Hourly Rounding Ronobir GUZMAN [facility] 02-11-2022 14:00-0400 Promise to Return Ronobir GUZMAN [facility] 02-11-2022 13:00-0400 Hourly Rounding Ronobir GUZMAN [facility] 02-11-2022 13:00-0400 Promise to Return Ronobir GUZMAN [facility] 02-11-2022 11:27-0400 Blood Pressure Location Ronobir GUZMAN [facility] 02-11-2022 11:27-0400 Body temperature 97.88 [degF] Ronobir GUZMAN [facility] 02-11-2022 11:27-0400 BP/Pulse Patient Position Ronobir GUZMAN [facility] 02-11-2022 11:27-0400 Diastolic blood pressure 71 mm[Hg] Ronobir GUZMAN [facility] 02-11-2022 11:27-0400 Heart rate 60 /min Ronobir GUZMAN [facility] 02-11-2022 11:27-0400 Mean blood pressure 87 mm[Hg] Ronobir GUZMAN [facility] 02-11-2022 11:27-0400 Respiratory rate 18 /min Ronobir GUZMAN [facility] 02-11-2022 11:27-0400 SaO2% (BldA) [Mass fraction] 98 % Ronobir GUZMAN [facility] 02-11-2022 11:27-0400 Systolic blood pressure 119 mm[Hg] Ronobir GUZMAN [facility] 02-11-2022 10:30-0400 Diastolic blood pressure 71 mm[Hg] Ronobir GUZMAN [facility] 02-11-2022 10:30-0400 Heart rate 60 /min Ronobir GUZMAN [facility] 02-11-2022 10:30-0400 Mean blood pressure 87 mm[Hg] Ronobir GUZMAN [facility] 02-11-2022 10:30-0400 Respiratory rate 18 /min Ronobir GUZMAN [facility] 02-11-2022 10:30-0400 Systolic blood pressure 119 mm[Hg] Ronobir GUZMAN [facility] 02-11-2022 08:57-0400 Diastolic blood pressure 67 mm[Hg] Ronobir GUZMAN [facility] 02-11-2022 08:57-0400 Systolic blood pressure 127 mm[Hg] Ronobir GUZMAN [facility] 02-11-2022 07:50-0400 SaO2% (BldA) [Mass fraction] 95 % Ronobir GUZMAN [facility] 02-11-2022 07:40-0400 Body temperature 98.24 [degF] Ronobir GUZMAN [facility] 02-11-2022 07:40-0400 Heart rate 60 /min Ronobir GUZMAN [facility] 02-11-2022 07:40-0400 Mean blood pressure 87 mm[Hg] Ronobir GUZMAN [facility] 02-11-2022 07:40-0400 Respiratory rate 18 /min Ronobir GUZMAN [facility] 02-11-2022 07:40-0400 SaO2% (BldA) [Mass fraction] 96 % Ronobir GUZMAN [facility] 02-11-2022 07:00-0400 gluc 75 mg/dL Ronobir GUZMAN [facility] 02-11-2022 02:14-0400 Heart rate 61 /min Ronobir GUZMAN [facility] 02-11-2022 02:14-0400 Mean blood pressure 78 mm[Hg] Ronobir GUZMAN [facility] 02-10-2022 21:38-0400 gluc 97 mg/dL Ronobir GUZMAN [facility] 02-10-2022 21:38-0400 Heart rate 60 /min Ronobir GUZMAN [facility] 02-10-2022 19:41-0400 Mean blood pressure 74 mm[Hg] Ronobir GUZMAN [facility] 02-09-2022 04:00-0400 Respiratory rate 16 /min Ronobir GUZMAN [facility] 02-09-2022 00:30-0400 Respiratory rate 11 /min Ronobir GUZMAN [facility] 02-08-2022 23:16-0400 Respiratory rate 13 /min Ronobir GUZMAN [facility] 02-02-2022 16:00-0400 Diastolic blood pressure 77 mm[Hg] Cayden Izaguirre [facility] 02-02-2022 16:00-0400 Mean blood pressure 95 mm[Hg] Cayden Zina [facility] 02-02-2022 16:00-0400 SaO2% (BldA) [Mass fraction] 99 % Cayden Zina [facility] 02-02-2022 16:00-0400 Systolic blood pressure 131 mm[Hg] Cayden Zina [facility] 02-02-2022 15:00-0400 Diastolic blood pressure 65 mm[Hg] Cayden Zina [facility] 02-02-2022 15:00-0400 Mean blood pressure 85 mm[Hg] Cayden Zina [facility] 02-02-2022 15:00-0400 Respiratory rate 14 /min Cayden Zina [facility] 02-02-2022 15:00-0400 Systolic blood pressure 124 mm[Hg] Cayden Zina [facility] 02-02-2022 14:00-0400 Diastolic blood pressure 91 mm[Hg] Cayden Zina [facility] 02-02-2022 14:00-0400 Mean blood pressure 99 mm[Hg] Cayden Zina [facility] 02-02-2022 14:00-0400 Respiratory rate 13 /min Cayden Zina [facility] 02-02-2022 14:00-0400 SaO2% (BldA) [Mass fraction] 98 % Cayden Zina [facility] 02-02-2022 14:00-0400 Systolic blood pressure 116 mm[Hg] Cayden Zina [facility] 02-02-2022 12:24-0400 Body temperature 98.06 [degF] Cayden Izaguirre [facility] 02-02-2022 12:24-0400 Heart rate 60 /min Cayden Izaguirre [facility] 02-02-2022 12:24-0400 Respiratory rate 16 /min Cayden Izaguirre [facility] 01-16-2022 15:00-0400 Body height 177.8 cm Janusz Ruiz Other [facility] [employer] Other 01-16-2022 15:00-0400 Body mass index (BMI) [Ratio] 32.48 kg/m2 Janusz Ruiz Other [employer] Other 01-16-2022 15:00-0400 Body temperature 97.2 [degF] Janusz Ruiz Other [employer] Other 01-16-2022 15:00-0400 Body weight 102.7 kg Janusz Ruiz Other [employer] Other 01-16-2022 15:00-0400 Diastolic blood pressure 54 mm[Hg] Janusz Ruiz Other [employer] Other 01-16-2022 15:00-0400 Respiratory rate 18 /min Janusz Ruiz Other [employer] Other 01-16-2022 15:00-0400 SaO2% (BldA) [Mass fraction] 96 % Janusz Ruiz Other [employer] Other 01-16-2022 15:00-0400 Systolic blood pressure 123 mm[Hg] Janusz Ruiz Other [employer] Other 2021 20:00-0400 Body temperature 98.24 [degF] Cayden Zina [facility] 2021 20:00-0400 Diastolic blood pressure 67 mm[Hg] Cayden Zina [facility] 2021 20:00-0400 Mean blood pressure 91 mm[Hg] Cayden Zina [facility] 2021 20:00-0400 Respiratory rate 15 /min Cayden Zina [facility] 2021 20:00-0400 Systolic blood pressure 140 mm[Hg] Cayden Zina [facility] 2021 19:00-0400 Body temperature 98.6 [degF] Cayden Zina [facility] 2021 19:00-0400 Diastolic blood pressure 57 mm[Hg] Cayden Zina [facility] 2021 19:00-0400 Heart rate 56 /min Cayden Zina [facility] 2021 19:00-0400 Mean blood pressure 84 mm[Hg] Cayden Zina [facility] 2021 19:00-0400 Respiratory rate 16 /min Cayden Zina [facility] 2021 19:00-0400 Systolic blood pressure 139 mm[Hg] Cayden Zina [facility] 2021 18:30-0400 Diastolic blood pressure 69 mm[Hg] Cayden Zina [facility] 2021 18:30-0400 Heart rate 60 /min Cayden Zina [facility] 2021 18:30-0400 Mean blood pressure 89 mm[Hg] Cayden Izaguirre [facility] 2021 18:30-0400 Respiratory rate 18 /min Cayden Izaguirre [facility] 2021 18:30-0400 SaO2% (BldA) [Mass fraction] 96 % Cayden Izaguirre [facility] 2021 18:30-0400 Systolic blood pressure 128 mm[Hg] Cayden Izaguirre [facility] 2021 17:30-0400 Respiratory rate 18 /min Cayden Izaguirre [facility] 2021 15:30-0400 Heart rate 63 /min Cayden Izaguirre [facility] 2021 15:21-0400 Body temperature 99.14 [degF] Cayden Izaguirre [facility] 12-15-2021 11:14-0400 Body height 172.72 cm Mona [employer] Work Phone: [facility] [employer] 600 DO Work Phone: 12-15-2021 11:14-0400 Body mass index (BMI) [Ratio] Medical Reason Not Done Mona [employer] Work Phone: [facility] 600 DO Work Phone: 12-15-2021 11:14-0400 Diastolic blood pressure 58 mm[Hg] Mona M Olivia Work Phone: [facility] [employer] 600 DO Work Phone: 12-15-2021 11:14-0400 Heart rate 60 /min Mona [employer] Olivia Work Phone: [facility] 600 DO Work Phone: 12-15-2021 11:14-0400 Systolic blood pressure 100 mm[Hg] Mona Jens Olivia Work Phone: [facility] 600 DO Work Phone: 12-15-2021 11:14-0400 11 1 Mona M Olivia Work Phone: [facility] 600 DO Work Phone: Comment on above: [id number] TS 11-07-2021 00:00-0400 60 1 Mona M Olivia Work Phone: [facility] 250 DO Work Phone: Comment on above: FSL 10-19-2021 15:35-0400 Hourly Rounding Hasan AMIR [facility] 10-19-2021 15:35-0400 Promise to Return Hasan AMIR [facility] 10-19-2021 14:42-0400 Hourly Rounding Hasan AMIR [facility] 10-19-2021 14:42-0400 Promise to Return Hasan AMIR [facility] 10-19-2021 14:10-0400 gluc 269 mg/dL Hasan AMIR [facility] 10-19-2021 11:31-0400 Blood Pressure Location Hasan AMIR [facility] 10-19-2021 11:31-0400 Body temperature 98.06 [degF] Hasan AMIR [facility] 10-19-2021 11:31-0400 BP/Pulse Patient Position Hasan AMIR [facility] 10-19-2021 11:31-0400 Diastolic blood pressure 74 mm[Hg] Hasan AMIR [facility] 10-19-2021 11:31-0400 Heart rate 61 /min Hasan AMIR [facility] 10-19-2021 11:31-0400 Mean blood pressure 95 mm[Hg] Hasan AMIR [facility] 10-19-2021 11:31-0400 SaO2% (BldA) [Mass fraction] 97 % Hasan AMIR [facility] 10-19-2021 11:31-0400 Systolic blood pressure 136 mm[Hg] Hasan AMIR [facility] 10-19-2021 08:27-0400 Diastolic blood pressure 82 mm[Hg] Hasan AMIR [facility] 10-19-2021 08:27-0400 Systolic blood pressure 136 mm[Hg] Hasan AMIR [facility] 10-19-2021 08:12-0400 Blood Pressure Location Hasan AMIR [facility] 10-19-2021 08:12-0400 Body temperature 97.52 [degF] Hasan AMIR [facility] 10-19-2021 08:12-0400 BP/Pulse Patient Position Hasan AMIR [facility] 10-19-2021 08:12-0400 Diastolic blood pressure 67 mm[Hg] Hasan AMIR [facility] 10-19-2021 08:12-0400 Heart rate 60 /min Hasan AMIR [facility] 10-19-2021 08:12-0400 Mean blood pressure 87 mm[Hg] Hasan AMIR [facility] 10-19-2021 08:12-0400 Respiratory rate 16 /min Hasan AMIR [facility] 10-19-2021 08:12-0400 SaO2% (BldA) [Mass fraction] 97 % Hasan AMIR [facility] 10-19-2021 08:12-0400 Systolic blood pressure 129 mm[Hg] Hasan AMIR [facility] 10-19-2021 01:00-0400 Blood Pressure Location Hasan AMIR [facility] 10-19-2021 01:00-0400 Body temperature 98.24 [degF] Hasan AMIR [facility] 10-19-2021 01:00-0400 BP/Pulse Patient Position Hasan AMIR [facility] 10-19-2021 01:00-0400 Heart rate 60 /min Hasan AMIR [facility] 10-19-2021 01:00-0400 Mean blood pressure 88 mm[Hg] Hasan AMIR [facility] 10-19-2021 01:00-0400 Respiratory rate 18 /min Hasan AMIR [facility] 10-19-2021 01:00-0400 SaO2% (BldA) [Mass fraction] 96 % Hasan AMIR [facility] 10-18-2021 20:00-0400 gluc 224 mg/dL Hasan AMIR [facility] 10-18-2021 19:31-0400 Mean blood pressure 87 mm[Hg] Hasan AMIR [facility] 10-18-2021 19:00-0400 Heart rate 65 /min Hasan AMIR [facility] 10-18-2021 07:00-0400 gluc 255 mg/dL Hasan AMIR [facility] 10-18-2021 03:00-0400 Mean blood pressure 86 mm[Hg] Hasan AMIR [facility] 10-16-2021 19:00-0400 Mean blood pressure 94 mm[Hg] Hasan AMIR [facility] 10-14-2021 19:47-0400 Heart rate 60 /min Hasan AMIR [facility] 10-14-2021 16:28-0400 Heart rate 60 /min Hasan AMIR [facility] 10-13-2021 13:46-0400 Hourly Rounding Ronobir GUZMAN [facility] 10-13-2021 13:46-0400 Promise to Return Ronobir GUZMAN [facility] 10-13-2021 12:41-0400 Hourly Rounding Ronobir GUZMAN [facility] 10-13-2021 12:41-0400 Promise to Return Ronobir GUZMAN [facility] 10-13-2021 11:06-0400 Body temperature 98.42 [degF] Ronobir GUZMAN [facility] 10-13-2021 11:06-0400 Diastolic blood pressure 67 mm[Hg] Ronobir GUZMAN [facility] 10-13-2021 11:06-0400 Heart rate 59 /min Ronobir GUZMAN [facility] 10-13-2021 11:06-0400 Mean blood pressure 90 mm[Hg] Ronobir GUZMAN [facility] 10-13-2021 11:06-0400 SaO2% (BldA) [Mass fraction] 94 % Ronobir GUZMAN [facility] 10-13-2021 11:06-0400 Systolic blood pressure 138 mm[Hg] Ronobir GUZMAN [facility] 10-13-2021 08:25-0400 gluc 170 mg/dL Ronobir GUZMAN [facility] 10-13-2021 08:19-0400 Diastolic blood pressure 69 mm[Hg] Ronobir GUZMAN [facility] 10-13-2021 08:19-0400 Systolic blood pressure 129 mm[Hg] Ronobir GUZMAN [facility] 10-13-2021 08:11-0400 Heart rate 61 /min Ronobir GUZMAN [facility] 10-13-2021 08:11-0400 Respiratory rate 18 /min Ronobir GUZMAN [facility] 10-13-2021 08:06-0400 Heart rate 60 /min Ronobir GUZMAN [facility] 10-13-2021 08:06-0400 Respiratory rate 18 /min Ronobir GUZMAN [facility] 10-13-2021 07:21-0400 Blood Pressure Location Ronobir GUZMAN [facility] 10-13-2021 07:21-0400 Body temperature 98.06 [degF] Ronobir GUZMAN [facility] 10-13-2021 07:21-0400 BP/Pulse Patient Position Ronobir GUZMAN [facility] 10-13-2021 07:21-0400 Diastolic blood pressure 69 mm[Hg] Ronobir GUZMAN [facility] 10-13-2021 07:21-0400 Mean blood pressure 89 mm[Hg] Ronobir GUZMAN [facility] 10-13-2021 07:21-0400 Respiratory rate 18 /min Ronobir GUZMAN [facility] 10-13-2021 07:21-0400 SaO2% (BldA) [Mass fraction] 95 % Ronobir GUZMAN [facility] 10-13-2021 07:21-0400 Systolic blood pressure 129 mm[Hg] Ronobir GUZMAN [facility] 10-13-2021 04:00-0400 Body temperature 97.88 [degF] Ronobir GUZMAN [facility] 10-12-2021 20:29-0400 gluc 249 mg/dL Ronobir GUZMAN [facility] 10-12-2021 17:50-0400 Mean blood pressure 80 mm[Hg] Ronobir GUZMAN [facility] 10-12-2021 11:51-0400 Body temperature 97.16 [degF] Ronobir GUZMAN [facility] 10-12-2021 07:51-0400 Blood Pressure Location Ronobir GUZMAN [facility] 10-12-2021 07:51-0400 BP/Pulse Patient Position Ronobir GUZMAN [facility] 10-12-2021 07:51-0400 Mean blood pressure 98 mm[Hg] Ronobir GUZMAN [facility] 10-11-2021 16:06-0400 Blood Pressure Location Ronobir GUZMAN [facility] 10-11-2021 16:06-0400 BP/Pulse Patient Position Ronobir GUZMAN [facility] 10-11-2021 00:18-0400 Mean blood pressure 80 mm[Hg] Ronobir GUZMAN [facility] 10-10-2021 20:54-0400 gluc 194 mg/dL Ronobir GUZMAN [facility] 10-10-2021 19:00-0400 Mean blood pressure 74 mm[Hg] Ronobir GUZMAN [facility] 10-08-2021 08:27-0400 Heart rate 64 /min Ronobir GUZMAN [facility] 10-07-2021 04:15-0400 Heart rate 60 /min Ronobir GUZMAN [facility] 10-07-2021 00:36-0400 Heart rate 60 /min Ronobir GUZMAN [facility] 10-06-2021 18:03-0400 SaO2% (BldA) [Mass fraction] 93.3 % Ronobir GUZMAN [facility] [employer] 09-27-2021 13:05-0400 Body height 172.7 cm Ye Lobo MD Work Phone: [facility] 09-27-2021 13:05-0400 Diastolic blood pressure 73 mm[Hg] Ye Lobo MD Work Phone: [facility] 09-27-2021 13:05-0400 Heart rate 60 /min Ye Lobo MD Work Phone: [facility] 09-27-2021 13:05-0400 Respiratory rate 16 /min Ye Lobo MD Work Phone: [facility] 09-27-2021 13:05-0400 SaO2% (BldA) [Mass fraction] 94 % Ye Lobo MD Work Phone: [facility] 09-27-2021 13:05-0400 Systolic blood pressure 144 mm[Hg] Ye Lobo MD Work Phone: [facility] 08-16-2021 12:32-0400 Diastolic blood pressure 60 mm[Hg] Mona [employer] Work Phone: [facility] [employer]. 600 DO Work Phone: 08-16-2021 12:32-0400 Systolic blood pressure 105 mm[Hg] Mona M Olivia Work Phone: [facility] [employer] 600 DO Work Phone: 08-16-2021 12:11-0400 Body height 175.26 cm Mona M Olivia Work Phone: [facility] [employer]. 600 DO Work Phone: 08-16-2021 12:11-0400 Body mass index (BMI) [Ratio] 34.56 kg/m2 Mona M Olivia Work Phone: [facility] [employer] 600 DO Work Phone: 08-16-2021 12:11-0400 Body surface area Derived from formula 2.21 m2 Mona M Olivia Work Phone: [facility] [employer] 600 DO Work Phone: 08-16-2021 12:11-0400 Body weight 106.14 kg Mona M Olivia Work Phone: [facility] [employer] 600 DO Work Phone: 08-16-2021 12:11-0400 Diastolic blood pressure 74 mm[Hg] Mona M Olivia Work Phone: [facility] 600 DO Work Phone: 08-16-2021 12:11-0400 Heart rate 60 /min Mona M Olivia Work Phone: [facility] 600 DO Work Phone: 08-16-2021 12:11-0400 Systolic blood pressure 140 mm[Hg] Mona M Olivia Work Phone: [facility] 600 DO Work Phone: 08-05-2021 13:23-0500 Body height 175.26 cm Mona M Olivia Work Phone: [facility] 600 DO Work Phone: 08-05-2021 13:23-0500 Body mass index (BMI) [Ratio] 33.37 kg/m2 Mona M Olivia Work Phone: [facility] 600 DO Work Phone: 08-05-2021 13:23-0500 Body surface area Derived from formula 2.18 m2 Mona M Olivia Work Phone: [facility] 600 DO Work Phone: 08-05-2021 13:23-0500 Body weight 102.51 kg Mona M Olivia Work Phone: [facility] 600 DO Work Phone: 08-05-2021 13:23-0500 Diastolic blood pressure 65 mm[Hg] Mona M Olivia Work Phone: [facility] 600 DO Work Phone: 08-05-2021 13:23-0500 Heart rate 60 /min Mona M Olivia Work Phone: [facility] 600 DO Work Phone: 08-05-2021 13:23-0500 Systolic blood pressure 134 mm[Hg] Mona M Olivia Work Phone: [facility] 600 DO Work Phone: 07-19-2021 11:11-0500 40 1 Mona M Olivia Work Phone: [facility] 250 DO Work Phone: Comment on above: [id number] 06-29-2021 11:08-0500 Body height 175.26 cm Mona M Olivia Work Phone: [facility] 600 DO Work Phone: 06-29-2021 11:08-0500 Body mass index (BMI) [Ratio] 35.15 kg/m2 Mona M Olivia Work Phone: [facility] 600 DO Work Phone: 06-29-2021 11:08-0500 Body surface area Derived from formula 2.22 m2 Mona M Olivia Work Phone: [facility] 600 DO Work Phone: 06-29-2021 11:08-0500 Body weight 107.96 kg Mona M Olivia Work Phone: [facility] 600 DO Work Phone: 06-29-2021 11:08-0500 Diastolic blood pressure 76 mm[Hg] Mona M Olivia Work Phone: [facility] 600 DO Work Phone: 06-29-2021 11:08-0500 Heart rate 93 /min Mona M Olivia [facility] Work Phone: 06-29-2021 11:08-0500 Systolic blood pressure 118 mm[Hg] Mona M Olivia Work Phone: [facility] 600 DO Work Phone: 06-21-2021 12:27-0500 Body height 172.7 cm Ye Lobo MD Work Phone: [facility] 06-21-2021 12:27-0500 Body mass index (BMI) [Ratio] 35.61 kg/m2 Ye Lobo MD Work Phone: [facility] 06-21-2021 12:27-0500 Body weight 106.23 kg Ye Lobo MD Work Phone: [facility] 06-21-2021 12:27-0500 Diastolic blood pressure 67 mm[Hg] Ye Lobo MD Work Phone: [facility] 06-21-2021 12:27-0500 Heart rate 95 /min Ye Lobo MD Work Phone: [facility] 06-21-2021 12:27-0500 Respiratory rate 16 /min Ye Lobo MD Work Phone: [facility] 06-21-2021 12:27-0500 SaO2% (BldA) [Mass fraction] 91 % Ye Lobo MD Work Phone: [facility] 06-21-2021 12:27-0500 Systolic blood pressure 119 mm[Hg] Ye Lobo MD Work Phone: [facility] 05-10-2021 09:44-0500 66 1 Mona M Olivia Work Phone: [facility] [address] [place] Work Phone: Comment on above: [facility] 05-05-2021 11:38-0500 Body height 172.72 cm Mona M Olivia Work Phone: [facility] [address] [place] Work Phone: 05-05-2021 11:38-0500 Body mass index (BMI) [Ratio] 35.94 kg/m2 Mona M Olivia Work Phone: [facility] [address] [place] Work Phone: 05-05-2021 11:38-0500 Body surface area Derived from formula 2.19 m2 Mona M Olivia Work Phone: [facility] [address] [place] Work Phone: 05-05-2021 11:38-0500 Body weight 107.23 kg Mona M Olivia Work Phone: [facility] [address] [place] Work Phone: 05-05-2021 11:38-0500 Diastolic blood pressure 90 mm[Hg] Mona M Olivia Work Phone: [facility] [address] [place] Work Phone: 05-05-2021 11:38-0500 Heart rate 60 /min Mona M Olivia Work Phone: [facility] [address] [place] Work Phone: 05-05-2021 11:38-0500 Systolic blood pressure 150 mm[Hg] Mona M Olivia Work Phone: [facility] [address] [place] Work Phone: 04-27-2021 12:30-0500 31 1 Mona M Olivia Work Phone: [facility] [address] [place] Work Phone: Comment on above: [id number] 03-22-2021 08:24-0400 Body height 172.72 cm Mona M Olivia Work Phone: [facility] 250 DO Work Phone: 03-22-2021 08:24-0400 Body mass index (BMI) [Ratio] 36.8 kg/m2 Mona M Olivia Work Phone: [facility] 250 DO Work Phone: 03-22-2021 08:24-0400 Body surface area Derived from formula 2.22 m2 Mona M Olivia Work Phone: [facility] 250 DO Work Phone: 03-22-2021 08:24-0400 Body weight 109.77 kg Mona M Olivia Work Phone: [facility] 250 DO Work Phone: 03-22-2021 08:24-0400 Diastolic blood pressure 64 mm[Hg] Mona M Olivia Work Phone: [facility] 250 DO Work Phone: 03-22-2021 08:24-0400 Heart rate 80 /min Mona M Olivia Work Phone: [facility] 250 DO Work Phone: 03-22-2021 08:24-0400 Systolic blood pressure 126 mm[Hg] Mona M Olivia Work Phone: [facility] 250 DO Work Phone: 03-15-2021 13:59-0400 Diastolic blood pressure 70 mm[Hg] Mona M Olivia Work Phone: [facility] 250 DO Work Phone: 03-15-2021 13:59-0400 Systolic blood pressure 100 mm[Hg] Mona M Olivia Work Phone: [facility] 250 DO Work Phone: 03-15-2021 13:58-0400 Body height 172.72 cm Mona M Olivia Work Phone: [facility] 250 DO Work Phone: 03-15-2021 13:58-0400 Body mass index (BMI) [Ratio] 35.73 kg/m2 Mona M Olivia Work Phone: [facility] 250 DO Work Phone: 03-15-2021 13:58-0400 Body surface area Derived from formula 2.19 m2 Mona M Olivia Work Phone: [facility] 250 DO Work Phone: 03-15-2021 13:58-0400 Body temperature 98.7 [degF] Mona M Olivia Work Phone: [facility] 250 DO Work Phone: 03-15-2021 13:58-0400 Body weight 106.6 kg Mona M Olivia Work Phone: [facility] 250 DO Work Phone: 03-15-2021 13:58-0400 Diastolic blood pressure 78 mm[Hg] Mona M Olivia Work Phone: [facility] 250 DO Work Phone: 03-15-2021 13:58-0400 Heart rate 100 /min Mona M Olivia Work Phone: [facility] 250 DO Work Phone: 03-15-2021 13:58-0400 Systolic blood pressure 118 mm[Hg] Mona M Olivia Work Phone: [facility] 250 DO Work Phone: 03-15-2021 13:48-0400 Diastolic blood pressure 70 mm[Hg] Mona M Olivia Work Phone: [facility] 250 DO Work Phone: 03-15-2021 13:48-0400 Systolic blood pressure 100 mm[Hg] Mona M Olivia Work Phone: [facility] 250 DO Work Phone: 03-15-2021 13:39-0400 Body height 172.72 cm Mona M Olivia Work Phone: [facility] 250 DO Work Phone: 03-15-2021 13:39-0400 Body mass index (BMI) [Ratio] 35.73 kg/m2 Mona M Olivia Work Phone: [facility] 250 DO Work Phone: 03-15-2021 13:39-0400 Body surface area Derived from formula 2.19 m2 Mona M Olivia Work Phone: [facility] 250 DO Work Phone: 03-15-2021 13:39-0400 Body temperature 98.7 [degF] Mona M Olivia Work Phone: [facility] 250 DO Work Phone: 03-15-2021 13:39-0400 Body weight 106.6 kg Mona M Olivia Work Phone: [facility] 250 DO Work Phone: 03-15-2021 13:39-0400 Diastolic blood pressure 78 mm[Hg] Mona M Olivia Work Phone: [facility] 250 DO Work Phone: 03-15-2021 13:39-0400 Heart rate 100 /min Mona M Olivia Work Phone: [facility] 250 DO Work Phone: 03-15-2021 13:39-0400 Systolic blood pressure 118 mm[Hg] Mona Baker Work Phone: [facility] 250 DO Work Phone: 02-09-2021 14:57-0400 72 1 Felipa Milligan MD Work Phone: [facility] 250 DO Work Phone: Comment on above: FSLDL Encounters Encounter Date Encounter Type Care Provider Facility Start: 04-03-2024 End: 04-03-2024 Telephone encounter Mona Baker MD Work Phone: [facility] Comment on above: Medication Question Start: 04-03-2024 End: 04-03-2024 Office outpatient visit 40 minutes Felipa Milligan MD Work Phone: [facility] Comment on above: 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; Paroxysmal atrial fibrillation (Multi); High risk medication use; Ischemic cardiomyopathy; Ventricular tachycardia (paroxysmal) (Multi); AICD (automatic cardioverter/defibrillator) present; Hypertension, essential, benign; Mixed hyperlipidemia; S/P CABG (coronary artery bypass graft); S/P PTCA (percutaneous transluminal coronary angioplasty); Stage 3b chronic kidney disease (Multi); Hypothyroidism, adult; Obstructive sleep apnea, adult Start: 04-03-2024 End: 04-03-2024 ambulatory FELIPA Ward [facility] Ambulatory Start: 04-01-2024 End: 04-01-2024 Telephone encounter Mona Baker MD Work Phone: [facility] Comment on above: Medication Question Start: 03-31-2024 End: 03-31-2024 Emergency department patient visit Cayden Izaguirre [facility] Start: 03-25-2024 End: 03-25-2024 Telephone encounter Mona Baker MD Work Phone: [facility] Comment on above: Med Refill Start: 03-21-2024 End: 03-21-2024 ambulatory Felipa Milligan Facility[place] Start: 03-21-2024 End: 03-21-2024 Patient encounter procedure Felipa Milligan [facility] Start: 03-20-2024 End: 03-20-2024 Refill Mona Baker MD Work Phone: [facility] Comment on above: Acquired hypothyroid ism (CMS/HCC) Start: 03-12-2024 End: 03-12-2024 Bamboo flowsheet Chayo LAU Work Phone: [facility] Start: 03-12-2024 End: 03-12-2024 Bamboo flowsheet Chayo LAU Work Phone: [facility] Start: 03-12-2024 End: 03-12-2024 Office outpatient visit 25 minutes Chayo LAU Work Phone: [facility] Comment on above: Parkinson's disease with [...] discharge Mona Baker MD Work Phone: [facility] Comment on above: Hospital discharge f ollow-up (Primary Dx); Acute hypoxic respiratory failure (CMS/HCC); Acute on chronic heart failure, unspecified heart failure type (CMS/HCC); Stage 3a chronic kidney disease (HCC) (CMS/HCC); BMI 31.0-31.9,adult; Obesity (BMI 30.0-34.9); Atherosclerosis of aorta ([facility]/HCC) Start: 03-04-2024 End: 03-04-2024 Telephone encounter Mona Baker MD Work Phone: [facility] Comment on above: Hospital Follow-up Start: 03-02-2024 End: 03-04-2024 Evaluation and management of inpatient MD Paul Samaniego Facility:[facility] Start: 03-02-2024 Emergency department patient visit Annemarie Tony Facility:[facility] Start: 03-02-2024 End: 03-04-2024 Evaluation and management of inpatient Paul Samaniego [facility] Start: 02-15-2024 End: 02-15-2024 ambulatory Nicolás Jacobdad Facility:[facility] Start: 02-06-2024 ambulatory Nicolás Diggs Facilit y:[facility] Start: 02-05-2024 End: 02-05-2024 ambulatory Andi WARE Facility:[facility] Start: 02-05-2024 End: 02-05-2024 Patient encounter procedure Andi WARE [facility] Start: 01-29-2024 End: 01-29-2024 Office outpatient visit 15 minutes Ye Lobo MD Work Phone: [facility] Comment on above: Bipolar 1 disorder, manic, full remission (HCC) (Primary Dx); Long-term use of high-risk medication; Generalized anxiety disorder Start: 01-29-2024 End: 01-29-2024 ambulatory MNOA BAKER [facility] Start: 01-29-2024 End: 01-29-2024 Telemedicine consultation with patient Ye Lobo MD Work Phone: [facility] Comment on above: Generalized anxiety disorder (Primary Dx) Start: 01-23-2024 End: 01-23-2024 ambulatory Nicolás Jacobdad Facility:[facility] Start: 01-23-2024 End: 01-23-2024 Patient encounter procedure Basejens Jacobdad [facility] Start: 01-10-2024 End: 01-10-2024 ambulatory Felipa Sandovalim Facility:[facility] Start: 01-10-2024 End: 01-10-2024 Patient encounter procedure Felipa Milligan [facility] Start: 01-03-2024 End: 01-03-2024 ambulatory MD Mona Baker Work Phone: [facility] Work Phone: Start: 01-03-2024 End: 01-03-2024 Patient encounter procedure MD Mona Baker Work Phone: [facility] Infectious Disease Work Phone: Start: 12-27-2023 End: 12-27-2023 ambulatory Basem Kathy Jacobdad Facility:[facility] Start: 12-27-2023 End: 12-27-2023 Patient encounter procedure Basejens Jacobdad [facility] Start: 12-20-2023 End: 12-20-2023 ambulatory Basem Kathy Jacobdad Facility:[facility] Start: 12-20-2023 End: 12-20-2023 Patient encounter procedure Basejens Jacobdad [facility] Start: 12-05-2023 End: 12-05-2023 ambulatory XXXX NONE Facility:[facility] Start: 12-05-2023 End: 12-05-2023 Patient encounter procedure Basejens Jacobdad [facility] Start: 11-26-2023 End: 11-26-2023 ambulatory MD Mona Baker Work Phone: [facility] Work Phone: Start: 11-26-2023 End: 11-26-2023 Patient encounter procedure MD Mona Baker Work Phone: [facility] Infectious Disease Work Phone: Start: 11-22-2023 End: 11-22-2023 ambulatory Armani Yarbrough Facility:[facility] Start: 11-22-2023 End: 11-22-2023 Patient encounter procedure Armani Yarbrough [facility] Start: 11-21-2023 End: 11-21-2023 ambulatory MICAELA Babin KARIE Not Available Start: 11-16-2023 ambulatory ACNP January Kaplan Karolina lity:[facility] Start: 11-15-2023 End: 11-15-2023 ambulatory Armani Yarbrough Facility:[facility] Start: 11-15-2023 End: 11-15-2023 Patient encounter procedure Armani Yarbrough [facility] Start: 11-12-2023 End: 11-12-2023 ambulatory MONA BAKER Not Available Start: 11-08-2023 End: 11-08-2023 ambulatory MD Mona Baker Work Phone: [facility] Work Phone: Start: 11-08-2023 End: 11-08-2023 Departed Referred MD Mona Baker Work Phone: [facility] Start: 10-31-2023 End: 10-31-2023 ambulatory Armani Yarbrough Facility:[facility] Start: 10-31-2023 End: 10-31-2023 Patient encounter procedure Armani Yarbrough [facility] Start: 10-30-2023 End: 10-30-2023 Office outpatient visit 25 minutes Upsylvain Lobo MD Work Phone: [facility] Comment on above: Bipolar 1 disorder, manic, full remission (HCC) (Primary Dx); Generalized anxiety disorder; Long-term use of high-risk medication Start: 10-30-2023 End: 10-30-2023 ambulatory YE LOBO [facility] Start: 10-26-2023 End: 10-26-2023 ambulatory PRINCESS DOS SANTOS Not Available Start: 10-24-2023 End: 10-24-2023 ambulatory Leo Milligan Facility:[facility] Start: 10-24-2023 End: 10-24-2023 Patient encounter procedure Felipa Milligan [facility] Start: 10-23-2023 End: 10-23-2023 ambulatory MONA BAKER Not Available Start: 10-18-2023 End: 10-18-2023 Patient encounter procedure MD Mona Baker Work Phone: [facility] Infectious Disease Work Phone: Start: 10-17-2023 End: 10-17-2023 Office outpatient visit 25 minutes Felipa Milligan MD Work Phone: [facility] Comment on above: 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 (Primary Dx); Ventricular tachycardia (paroxysmal) (Multi); Ischemic cardiomyopathy; AICD (automatic cardioverter/defibrillator) present; S/P PTCA (percutaneous transluminal coronary angioplasty); Hypertension, essential, benign; Paroxysmal atrial fibrillation (Multi); Mixed hyperlipidemia; High risk medication use; S/P CABG (coronary artery bypass graft); Type 2 diabetes mellitus without complication, unspecified whether longterm insulin use (Multi); Class 1 obesity without serious comorbidity with body mass index (BMI) of 32.0 to 32.9 in adult, unspecified obesity type; Mild dementia without behavioral disturbance, psychotic disturbance, mood disturbance, or anxiety, unspecified dementia type (Multi) Start: 10-17-2023 End: 10-17-2023 ambulatory [facility] Start: 10-13-2023 End: 10-13-2023 ambulatory Armani Yarbrough Facility:[facility] Start: 10-13-2023 End: 10-13-2023 Patient encounter procedure Armani Yarbrough [facility] Start: 09-24-2023 End: 09-24-2023 ambulatory PRINCESS DOS SANTOS Not Available Start: 09-12-2023 End: 09-12-2023 ambulatory Mona Baker Facility:[facility] Start: 09-12-2023 End: 09-12-2023 Patient encounter procedure Mona Baker [facility] Start: 09-12-2023 End: 09-12-2023 ambulatory MONA BAKER Not Available Start: 09-06-2023 Non-patient / Non-visit MD Travon Baker Work Phone: [facility] Gastroenterology Work Phone: Start: 09-06-2023 End: 09-06-2023 Admission to same day surgery center MD Mona Baker Work Phone: [facility] Work Phone: Start: 09-06-2023 End: 09-06-2023 ambulatory MD Mona Baker Work Phone: [facility] Work Phone: Start: 08-27-2023 End: 08-29-2023 Evaluation and management of inpatient Rosi Mendez [facility] Start: 08-27-2023 End: 08-27-2023 ambulatory MONA BAKER Not Available Start: 08-22-2023 End: 08-22-2023 ambulatory PRINCESS DOS SANTOS Not Available Start: 08-11-2023 End: 08-11-2023 ambulatory Janusz Ruiz Facility:[facility] Start: 08-11-2023 End: 08-11-2023 Lab Drop off Janusz Ruiz [facility] Start: 08-11-2023 Non-patient / Non-visit MD Travon Baker Work Phone: [facility] Work Phone: Start: 07-26-2023 End: 07-26-2023 ambulatory Janusz Ruiz Facility:[facility] Start: 07-26-2023 End: 07-26-2023 Lab Drop off Janusz Ruiz [facility] Start: 07-26-2023 Non-patient / Non-visit MD Travon Baker Work Phone: [facility] Work Phone: Start: 07-25-2023 End: 07-25-2023 ambulatory PRINCESS S LEVON Not Available Start: 07-20-2023 ambulatory Andi WARE Facili ty:[facility] Start: 07-18-2023 End: 07-18-2023 ambulatory Janusz Ruiz Facility:[facility] Start: 07-18-2023 End: 07-18-2023 Lab Drop off Janusz Ruiz [facility] Start: 07-18-2023 Non-patient / Non-visit MD Travon Baker Work Phone: [facility] Work Phone: Start: 07-17-2023 End: 07-17-2023 ambulatory Andi WARE Facility:[facility] Start: 07-17-2023 End: 07-17-2023 Patient encounter procedure Andi WARE [facility] Start: 07-16-2023 End: 07-16-2023 ambulatory Janusz Sara Other [facility] [employer] Other Start: 07-16-2023 Office outpatient vi sit 25 minutes Janusz Ruiz [facility] Start: 06-25-2023 End: 06-25-2023 ambulatory MONA BAKER Not Available Start: 06-20-2023 End: 06-22-2023 ambulatory FELIPA Ward [facility] Ambulatory Start: 06-17-2023 End: 06-17-2023 Emergency department patient visit MD Mona Baker [facility] Work Phone: Start: 06-12-2023 End: 06-12-2023 ambulatory Felipa Milligan Facility:[facility] Start: 06-12-2023 End: 06-12-2023 Patient encounter procedure Felipa Perezahim [facility] Start: 05-17-2023 End: 08-17-2023 Pre-admission assessment Felipa Perezahim [facility] Start: 05-17-2023 End: 05-17-2023 ambulatory Eyad Mims Facility:[facility] Start: 04-30-2023 End: 04-30-2023 ambulatory MONA BAKER Not Available Start: 04-12-2023 End: 04-12-2023 ambulatory Armani Yarbrough Facility:[facility] Start: 04-12-2023 End: 04-12-2023 Patient encounter procedure Armani Cainflaquito [facility] Start: 04-09-2023 End: 04-09-2023 ambulatory Nicolás Diggs Facility:[facility] Start: 04-09-2023 End: 04-09-2023 Patient encounter procedure Nicolás Diggs [facility] Start: 04-04-2023 End: 04-04-2023 Office outpatient visit 25 minutes Felipa Milligan MD Work Phone: [facility] Comment on above: 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; S/P PTCA (percutaneous transluminal coronary angioplasty); Ventricular tachycardia (paroxysmal) (CMS/HCC); AICD (automatic cardioverter/defibrillator) present; Hypertension, essential, benign; Ischemic cardiomyopathy; Paroxysmal atrial fibrillation (CMS/HCC); Mixed hyperlipidemia; Stage 3b chronic kidney disease (CMS/HCC); S/P CABG (coronary artery bypass graft); Transient neurological symptoms; Obstructive sleep apnea, adult Start: 03-28-2023 End: 03-28-2023 ambulatory Janusz Ruiz Other [employer] Other Start: 03-28-2023 Telephone encounter Janusz Ruiz [facility] Disease Start: 03-26-2023 End: 03-26-2023 Office outpatient visit 25 minutes Jackie Mcginnis MD Work Phone: [facility] Comment on above: Parkinsonism, unspec ified Parkinsonism type (Primary Dx); Cognitive impairment Start: 03-20-2023 End: 03-20-2023 Office outpatient visit 25 minutes Keisha Brambila APRN - ETC Education Work Phone: [facility] Comment on above: Mild dementia withou t behavioral disturbance, psychotic disturbance, mood disturbance, or anxiety, unspecified dementia type (HCC) (Primary Dx); B12 deficiency; Acquired hypothyroidism Start: 03-02-2023 End: 03-02-2023 Patient encounter procedure KEISHA BRAMBILA [facility] Start: 02-20-2023 End: 02-20-2023 Office outpatient new 45 minutes Keisha Brambila HORTICULTURE SUPERINTENDENT - ETC Education Work Phone: [facility] Comment on above: Memory loss (Primary Dx); Parkinsonism, unspecified Parkinsonism type; Bipolar disorder, in partial remission, most recent episode mixed (CMS/HCC) (HCC); Polypharmacy Start: 02-15-2023 Telephone encounter Fariba Garner DO Work Phone: [facility] Comment on above: Appointment Start: 02-15-[address] Mona Carvajal Facility: Start: 02-15-2023 End: 02-15-2023 Patient encounter procedure Eyad Mims [facility] Start: 01-16-2023 End: 01-16-2023 Patient encounter procedure Andi WARE [facility] Start: 01-15-2023 End: 01-15-2023 ambulatory Janusz Ruiz Other [facility] [employer] [place] Other Start: 01-15-2023 Office outpatient vi sit 25 minutes Janusz Ruiz [facility] Infectious Disease Start: 01-08-2023 Rx Renewal Mona Camarillo s Work Phone: [facility] 250 DO Work Phone: Start: 12-13-2022 Telephone encounter Mona cooperles Work Phone: [facility] 600 DO Work Phone: Start: 12-13-2022 End: 12-13-2022 Patient encounter procedure Andi R MIGUELINA [facility] Start: 11-24-2022 End: 11-24-2022 Patient encounter procedure Andi WARE [facility] Start: 11-20-2022 Patient encounter procedure Mona Baker Work Phone: [facility] [address] Work Phone: Start: 11-20-[address] Mona Carvajal Facility:[id number] Start: 11-09-[address] Mona Carvajal Facility:[id number] Start: 10-31-2022 End: 10-31-2022 Patient encounter procedure Andi WARE [facility] Start: 09-22-2022 Office outpatient vi sit 40 minutes Mona Baker Work Phone: -[facility] 600 DO Work Phone: Start: 09-22-[address] Mona Carvajal Facility: Start: 09-22-2022 End: 09-22-2022 Patient encounter procedure Andi WARE [facility] Start: 09-19-2022 End: 09-20-2022 [facility]ulatory [facility]H1 Start: 09-04-2022 Chart Update Mona Camarillo s Work Phone: [facility] 101 Work Phone: Start: 08-30-2022 Telephone encounter Mona saucedo Work Phone: [facility] 204 Movement Disorders Work Phone: Start: 08-30-[address] Francisco yanez [facility] Facility:[id number] Start: 08-29-2022 End: 08-30-2022 ambulatory JOHN PAUL James [facility] Facility:H1 Start: 08-23-2022 End: 08-23-2022 Patient encounter procedure Andi WARE [facility] [place] Start: 08-22-[address] Mona Carvajal Facility:[id number] Start: 08-18-2022 End: 08-19-2022 ambulatory JOHN PAUL PRINCE Facility:H1 Start: 08-16-2022 End: 08-16-2022 Patient encounter procedure Andi WARE [facility] Kevin Start: 08-10-[address] Mona Carvajal Facility: Start: 08-10-2022 End: 08-10-2022 Patient encounter procedure Eyad Mims [facility] Start: 08-09-2022 End: 08-09-2022 Patient encounter procedure Andi WARE [facility] Kevin Start: 08-08-2022 End: 08-09-2022 ambulatory [facility] Facility:H1 Start: 08-01-2022 End: 08-02-2022 ambulatory [facility] Facility:H1 Start: 07-31-2022 Office outpatient ne w 45 minutes Mona Baker Work Phone: [facility]qlfuk[facility]MLKQM Boll[facility] 5 Work Phone: Start: 07-31-2022 Patient encounter procedure Mona Baker Work Phone: [facility]Hfubqtxkf-Eohszevg B 101 DO Work Phone: Start: 07-31-[address] Mona Carvajal Facility:[id number] Start: 07-28-2022 End: 07-29-2022 ambulatory [facility] Facility:H1 Start: 07-25-2022 End: 07-25-2022 Admission to same day surgery center MD Mona Baker [facility] [place] Start: 07-25-2022 End: 07-25-2022 ambulatory MD Mona Baker [facility] Work Phone: Start: 07-24-2022 End: 08-16-2022 Pre-admission assessment Andi WARE [facility] Start: 07-17-2022 End: 07-17-2022 ambulatory Janusz Ruiz Other [employer] Other Start: 07-17-2022 Office outpatient vi sit 25 minutes Janusz Ruiz [facility] Start: 07-11-2022 End: 07-11-2022 ambulatory MD Mona Baker [facility] Work Phone: Start: 07-11-2022 End: 07-11-2022 Patient encounter procedure MD Mona Baker [facility] Gdw-Bew-Xtefrykg Testing Work Phone: Start: 06-02-2022 End: 06-02-2022 Patient encounter procedure Andi Caputo MIGUELINA [facility] Start: 05-23-2022 End: 05-23-2022 Admission to same day surgery center MD Mona Baker [facility] [place] Start: 05-23-2022 End: 05-23-2022 ambulatory MD Mona Baker [facility] Work Phone: Start: 05-19-2022 End: 05-19-2022 ambulatory MD Mona Baker [facility] Work Phone: Start: 05-19-2022 End: 05-19-2022 Patient encounter procedure MD Mona Baker [facility] Lgk-Bbl-Yexzaztq Testing Start: 05-15-2022 End: 05-15-2022 ambulatory Bill Mcgee Other [facility] [employer] [place] Other Start: 05-15-2022 Telephone encounter Bill Mcgee [facility] G[facility] Start: 05-12-2022 End: 05-14-2022 Evaluation and management of inpatient MD Mona Baker [facility] [place] [facility] Start: 05-12-2022 End: 05-14-2022 observation encounter MD Mona Baker [facility] Work Phone: Start: 05-11-2022 End: 06-23-2022 Pre-admission assessment Felipa Milligan [facility] Start: 05-10-2022 Patient encounter procedure Mona Baker Work Phone: [facility] 250 DO Work Phone: Start: 05-08-2022 End: 05-08-2022 Patient encounter procedure Nicolás Diggs [facility] Start: 05-02-2022 End: 05-03-2022 ambulatory [facility] Facility:H1 Start: 03-31-2022 End: 03-31-2022 Patient encounter procedure Nicolás Diggs [facility] Start: 03-24-2022 End: 03-25-2022 ambulatory [facility] Facility:H1 Start: 03-23-2022 End: 03-23-2022 Patient encounter procedure Deshawn Gaffney [facility] Start: 03-15-2022 Office outpatient vi sit 25 minutes Mona Baker [facility]: [facility] DO Work Phone: Start: 03-15-2022 ambulatory Felipa Sandovalim Facility :[id number] Start: 03-10-2022 End: 03-11-2022 ambulatory [facility] Facility:H1 Start: 03-09-2022 End: 03-09-2022 Patient encounter procedure Deshawn Gaffney [facility] Start: 03-03-2022 End: 03-04-2022 ambulatory [facility] Facility:H1 Start: 02-17-2022 End: 02-17-2022 Off-Site [facility] Start: 02-13-2022 End: 02-13-2022 Off-Site [facility] Start: 02-08-2022 End: 02-11-2022 Observation Gsisel HINDS [facility] Start: 02-07-2022 End: 02-14-2022 Pre-admission assessment Nicolás Diggs [facility] Start: 02-02-2022 End: 02-02-2022 Emergency department patient visit Cayden Izaguirre [facility] Start: 01-27-2022 Telephone encounter Mona saucedo Work Phone: [facility] [employer] 250 DO Work Phone: Start: 01-16-2022 End: 01-16-2022 ambulatory Janusz Ruiz Other [facility] [employer] [place] Other Start: 01-16-2022 Office outpatient vi sit 25 minutes Janusz Ruiz [facility] Infectious Disease Start: 01-04-2022 End: 01-04-2022 Patient encounter procedure Mona Baker [facility] Start: 2021 End: 2021 Emergency department patient visit Cayden Izaguirre [facility] Start: 2021 Telephone encounter Mon[facility] saucedo [facility]: [facility] Work Phone: Start: 12-27-2021 End: 12-27-2021 Office outpatient visit 15 minutes Ye Lobo MD Work Phone: [facility] Comment on above: Bipolar 1 disorder, manic, mild (HCC) (Primary Dx); Generalized anxiety disorder; Long-term use of high-risk medication Start: 12-20-2021 Telephone encounter Mona M Ru ggles Work Phone: [facility] 250 DO Work Phone: Start: 12-19-2021 End: 01-24-2022 Recurring Felipa Milligan [facility] Start: 12-15-2021 Office outpatient vi sit 40 minutes Mona Madrigalgles Work Phone: [facility] 600 DO Work Phone: Start: 12-06-2021 End: 12-06-2021 Patient encounter procedure Mona De Los Santoses [facility] Start: 11-29-2021 AUDIT Mona Jens Ruggle s Work Phone: [facility] 250 DO Work Phone: Start: 11-22-2021 Rx Renewal Mona Ward Ruggle s Work Phone: [facility] 250 DO Work Phone: Start: 11-11-2021 End: 11-12-2021 ambulatory [facility] Facility:H1 Start: 11-04-2021 End: 11-05-2021 ambulatory [facility] Facility:H1 Start: 10-28-2021 Rx Renewal Mona Ward Ruggle s Work Phone: [facility] 250 DO Work Phone: Start: 10-27-2021 End: 10-27-2021 Off-Site [facility] Start: 10-20-2021 End: 10-20-2021 Off-Site [facility] Start: 10-14-2021 End: 10-19-2021 Observation Delvin SANTANA [facility] Start: 10-11-2021 End: 11-02-2021 Pre-admission assessment Lawson DELFINA [facility] Start: 10-06-2021 End: 10-13-2021 Observation Gissel HINDS [facility] Start: 09-27-2021 End: 09-27-2021 Office outpatient visit 25 minutes Ye Lobo MD Work Phone: [facility] Comment on above: Bipolar 1 disorder, manic, mild (HCC) (Primary Dx); Generalized anxiety disorder; Long-term use of high-risk medication Start: 09-21-2021 End: 11-08-2021 Pre-admission assessment Felipa Milligan [facility] Start: 09-20-2021 Patient encounter procedure [facility]: [facility] DO Work Phone: Start: 09-16-2021 End: 12-09-2021 Pre-admission assessment Eyad Mims [facility] Start: 08-31-2021 End: 08-31-2021 Patient encounter procedure Bess Granadomarcosprincess [facility] Start: 08-16-2021 Office outpatient vi sit 25 minutes Mona Baker Work [facility]: [facility] DO Work Phone: Start: 07-25-2021 Rx Renewal Mona Camarillo s Work Phone: [facility] 250 DO Work Phone: Start: 07-14-2021 End: 10-14-2021 Pre-admission assessment Armani Yarbrough [facility] Start: 06-29-2021 Office outpatient vi sit 25 minutes Mona Madrigalgles Work Phone: [facility] 600 DO Work Phone: Start: 06-29-2021 Patient encounter procedure Mona Baker Work Phone: [facility] 600 DO Work Phone: Start: 06-21-2021 End: 06-21-2021 Office outpatient visit 25 minutes Ye Lobo MD Work Phone: [facility] Comment on above: Bipolar 1 disorder, mixed, mild (HCC) (Primary Dx); Generalized anxiety disorder; Long-term use of high-risk medication Start: 06-17-2021 Patient encounter procedure Mona Baker Work Phone: [facility] 250A [place] Work Phone: Start: 05-26-2021 Patient encounter procedure Mona Madrigalgles Work Phone: [facility] 250[address] [place] Work Phone: Start: 05-12-20[facility]: Felipa Milligan, Status: Pen, Time: 1:00 PM Mona Madrigalgles Work Phone: [facility] 250[address] [place] Work Phone: Start: 05-10-2021 Chart Update Mona De Los Santose s Work Phone: [facility] 250A [place] Work Phone: Start: 05-05-2021 FUV, Provider: Felipa Milligan, Status: Pen, Time: 11:20 AM Mona M Olivia Work Phone: [facility] 250[address] [place] Work Phone: Start: 04-27-2021 Patient encounter procedure Mona Baker Work Phone: [facility] 250[address] [place] Work Phone: Start: 04-18-2021 Telephone encounter Mona Mendez ggles Work Phone: [facility] 250[address] [place] Work Phone: Start: 03-30-2021 Telephone encounter Mona Mendez ggles Work Phone: [facility] 250 DO Work Phone: Start: 03-22-2021 Patient encounter procedure Mona Baker Work Phone: [facility] 250 DO Work Phone: Start: 03-16-2021 Telephone encounter Mona Mendez ggles Work Phone: [facility] 250 DO Work Phone: Start: 03-15-2021 Office outpatient vi sit 25 minutes Mona Baker Work Phone: [facility] 250 DO Work Phone: Start: 03-11-2021 Rx Renewal Felipa Milligan MD Work Phone: [facility] 600 DO Work Phone: Start: 03-10-2021 Rx Renewal Felipa Milligan MD Work Phone: [facility] 250 DO Work Phone: Procedures Date Procedure Procedure Detail Performing Clinician Start: 04-03-2024 Ecg routine ecg w/le ast 12 lds w/i&r Felipa Milligan MD Work Phone: Start: 10-17-2023 ECG 12-LEAD FELIPA EDWARDS Start: 10-17-2023 FOLLOW UP IN CARDIOLOGY FELIPA MILLIGAN Start: 10-17-2023 Ecg routine ecg w/le ast 12 lds w/i&r Felipa Milligan MD Work Phone: Start: 09-06-2023 End: 09-06-2023 Colonoscopy MD Mona Baker Work Phone: Start: 06-20-2023 HOLTER OR EVENT CARD IAC MONITOR EFLIPA MILLIGAN Start: 06-20-2023 ECG 12-LEAD FELIPA EDWARDS Start: 06-17-2023 Plain chest X-ray MD Bharat Baker Start: 04-04-2023 Ecg routine ecg w/le ast 12 lds w/i&r Felipa Milligan MD Work Phone: Start: 02-23-2023 History of coronary artery bypass grafting S/P CABG (coronary artery bypass graft) Jackie Mcginnis MD Work Phone: Start: 02-20-2023 Adult depression scr eening assessment Keisha Quscottie HORTICULTURE SUPERINTENDENT - METEOROLOGICAL OBSERVER Work Phone: Start: 07-25-2022 Circumcision MD Mona duong Start: 07-25-2022 Circumcision Andi CHATTERJEE Start: 05-23-2022 Cystoscopy and transurethral resection of bladder tumor MD Mona Baker Start: 05-23-2022 Transurethral resect ion of bladder neoplasm Andi WAER Start: 05-19-2022 SARS Antigen (LFIA) MD Mona [...] s test using pharmacologic stress agent Felipa Mililgan Cataract surgery Felipa bonilla MD Work Phone: [...] grafting S/P CABG (coronary artery bypass graft) Feilpa Milligan MD Work Phone: History of coronary artery bypass grafting S/P CABG (coronary artery bypass graft) Felipa Milligan MD Work Phone: Insertion of pacemak er pulse generator Felipa Milligan MD Work Phone: Insertion of periphe rally inserted central catheter Feilpa Milligan MD Work Phone: Mastoidectomy Felipa Milligan MD Work Phone: Mastoidectomy Felipa Milligan Operation on bladder Mona Ward Olivia Work Phone: Operative procedure on foot Felipa Milligan MD Work Phone: Comment on above: LEFT FOOT RECON; Placement of stent Stent placeme nt( Confirmed ) Felipa Milligan Plan of Treatment Date Care Activity Detail Author Start: 09-05-2033 Screening for malignant neoplasm of colon [facility] Start: 07-30-2029 Screening for malignant neoplasm of colon [facility] Start: 03-21-2025 Urine screening for protein Diabetes: Urine Protein Screening [facility] Start: 03-03-2025 Echocardiography Echocardiogram [facility] Start: 12-12-2024 End: 12-12-2024 Patient encounter procedure 12/12/2024 11:00 AM EDT Office Visit [facility] [address] [place] [address] [place] [address] Felipa Milligan MD [address] [facility], [place] [address] [place] [address] [facility] Start: 06-12-2024 Urine screening for protein Diabetes: Urine Protein Screening [facility] Start: 06-06-2024 Hemoglobin A1c measurement Diabetes: Hemoglobin A1C [facility] Start: 05-08-2024 End: 05-08-2024 Patient encounter procedure 05/08/2024 11:00 AM EST Office Visit [facility] [address] [place] [address] Chayo Fernandez [place] [address] [place] [address] [facility] Start: 04-15-2024 Screening for malignant neoplasm of colon [facility] Start: 04-03-2024 End: 04-03-2024 Patient encounter procedure 04/03/2024 11:00 AM EDT Office Visit [facility] [address] [place] [address] [place] [phone] Felip[facility] Milligan [facility] [facility] [place] [address] [place] [address] [facility] Start: 03-12-2024 Echocardiography Echocardiogram [facility] Start: 03-12-2024 End: 03-12-2024 Patient encounter procedure [facility] Comment on above: Arrived Start: 03-06-2024 End: 03-06-2024 Patient encounter procedure 03/06/2024 1:20 PM EDT Office Visit [facility] [address] [place] [id number] Mona Baker MD [address] [place] [address] [facility] Start: 02-28-2024 Hemoglobin A1c measurement A1C [facility] Start: 02-21-2024 Depression Screening Depression Screening [facility] Start: 02-03-2024 Influenza vaccination Influenza Vaccine (#1) [facility] Start: 01-29-2024 End: 01-29-2024 Telemedicine consultation with patient 01/29/2024 11:00 AM EDT Telemedicine [facility] [address] [place] [phone] Ye Lobo MD [address] [place] [id number] [facility] Start: 01-17-2024 End: 10-16-2024 Alanine aminotransferase [Enzymatic activity/volume] in Serum or Plasma by With P-5'-P Alanine Aminotransferase Lab Routine Atherosclerosis of coronary artery bypass graft of [place] heart without angina pectoris Mixed hyperlipidemia Expected: 01/17/2024 (Approximate), Expires: 10/16/2024 [facility] Service Area Work Phone: Comment on above: Expected: 01/17/2024 (Approximate), Expi res: 10/16/2024 Start: 01-17-2024 End: 10-16-2024 Aspartate aminotransferase [Enzymatic activity/volume] in Serum or Plasma by With P-5'-P Aspartate Aminotransferase Lab Routine Atherosclerosis of coronary artery bypass graft of [place] heart without angina pectoris Mixed hyperlipidemia Expected: 01/17/2024 (Approximate), Expires: 10/16/2024 [facility] Work Phone: Comment on above: Expected: 01/17/2024 (Approximate), Expi res: 10/16/2024 Start: 01-17-2024 End: 10-16-2024 Basic metabolic 2000 panel - Serum or Plasma Basic Metabolic Panel Lab Routine Atherosclerosis of coronary artery bypass graft of [place] heart without angina pectoris Paroxysmal atrial fibrillation (Multi) High risk medication use Expected: 01/17/2024 (Approximate), Expires: 10/16/2024 [facility] Work Phone: Comment on above: Expected: 01/17/2024 (Approximate), Expi res: 10/16/2024 Start: 01-17-2024 End: 10-16-2024 CBC panel - Blood by Automated count CBC Lab Routine Atherosclerosis of coronary artery bypass graft of [place] heart without angina pectoris Ischemic cardiomyopathy Paroxysmal atrial fibrillation (Multi) Expected: 01/17/2024 (Approximate), Expires: 10/16/2024 [facility] Work Phone: Comment on above: Expected: 01/17/2024 (Approximate), Expi res: 10/16/2024 Start: 01-17-2024 End: 10-16-2024 Lipid 1996 panel - Serum or Plasma Lipid Panel Lab Routine Atherosclerosis of coronary artery bypass graft of [place] heart without angina pectoris Mixed hyperlipidemia Expected: 01/17/2024 (Approximate), Expires: 10/16/2024 [facility] Work Phone: Comment on above: Expected: 01/17/2024 (Approximate), Expi res: 10/16/2024 Start: 01-17-2024 End: 10-16-2024 Thyrotropin [Units/volume] in Serum or Plasma Thyroid Stimulating Hormone Lab Routine Paroxysmal atrial fibrillation (Multi) S/P CABG (coronary artery bypass graft) Expected: 01/17/2024 (Approximate), Expires: 10/16/2024 [facility] Work Phone: Comment on above: Expected: 01/17/2024 (Approximate), Expi res: 10/16/2024 Start: 11-28-2023 Hemoglobin A1c measurement Diabetes: Hemoglobin A1C [facility] Start: 11-02-2023 Glaucoma screening [facility] Start: 10-17-2023 End: 10-16-2024 Complete Pulmonary Function Test (Spirometry/DLCO/Lung Volumes) Complete Pulmonary Function Test (Spirometry/DLCO/Lung Volumes) PFT Routine Paroxysmal atrial fibrillation (Multi) High risk medication use Expected: 10/17/2023 (Approximate), Expires: 10/16/2024 [facility] Work Phone: Comment on above: Expected: 10/17/2023 (Approximate), Expi res: 10/16/2024 Start: 10-17-2023 End: 10-17-2023 Patient encounter procedure 10/17/2023 10:40 AM EDT Office Visit [facility] [address] [place] [address] [place] [phone] Felipa Milligan MD [address] [facility] [address] [place] [address] [place] [address] [facility] Start: 10-01-2023 End: 10-01-2023 Patient encounter procedure 10/01/2023 12:00 PM EDT Office Visit [facility] [address] [facility] [address] [place] [phone] Jackie Mcginnis MD [address] [facility] [place] [address] [place] [address] [facility] Start: 09-06-2023 [facility] Start: 08-21-2023 Depresssion Monitoring Depresssion Monitoring [facility] Start: 07-20-2023 COVID-19 Vaccine ( season) COVID-19 Vaccine () [facility] Start: 06-08-2023 End: 06-08-2023 Patient encounter procedure 06/08/2023 10:45 AM EST Office Visit [facility] [address] [place] [phone] Keisha Brambila APRN - METEOROLOGICAL OBSERVER [address] [place] [address] [place] [address] [facility] Start: 05-14-2023 Administration of herpes zoster vaccine Zoster Vaccines (2 of 2) [facility] Start: 05-14-2023 COVID-19 Vaccine (6 - Pfizer risk series) COVID-19 Vaccine (6 - Pfizer risk series) [facility] Start: 05-14-2023 COVID-19 Vaccine (6 - Pfizer series) COVID-19 Vaccine (6 - Pfizer series) [facility] Start: 05-14-2023 Zoster Vaccines (2 of 2) Zoster Vaccines (2 of 2) [facility] Start: 04-04-2023 End: 04-04-2023 Patient encounter procedure 04/04/2023 11:30 AM EDT Office Visit [facility] [address] [place] [address] [place] [address] Felipa Milligan MD [facility] [facility] [place] [address] [place] [address] [facility] Start: 10-23-2023 [facility]UV, Provider: Jackie Mcginnis, Status: Pen, Time: 1:00 PM [facility], Provider: Jackie Mcginnis, Status: Pen, Time: 1:00 PM [facility] [address] Work Phone: Start: 02-20-2023 End: 02-21-2024 CBC panel - Blood by Automated count CBC Lab Routine Memory loss Expected: 02/20/2023 (Approximate), Expires: 02/21/2024 [facility] Work Phone: Comment on above: Expected: 02/20/2023 (Approximate), Expi res: 02/21/2024 Start: 02-20-2023 End: 02-21-2024 Cobalamin (Vitamin B12) [Mass/volume] in Serum or Plasma Vitamin B12 Lab Routine Memory loss Expected: 02/20/2023 (Approximate), Expires: 02/21/2024 [facility] Comment on above: Expected: 02/20/2023 (Approximate), Expi res: 02/21/2024 Start: 02-20-2023 End: 02-21-2024 Comprehensive metabolic 1998 panel - Serum or Plasma Comprehensive metabolic panel Lab Routine Memory loss Expected: 02/20/2023 (Approximate), Expires: 02/21/2024 [facility] Comment on above: Expected: 02/20/2023 (Approximate), Expi res: 02/21/2024 Start: 02-20-2023 End: 02-21-2024 CT Head WO contrast CT head wo IV contrast Imaging Routine Memory loss Expected: 02/20/2023, Expires: 02/21/2024 [facility] Comment on above: Expected: 02/20/2023, Expires: Start: 02-20-2023 End: 02-21-2024 Folate [Mass/volume] in Serum or Plasma Folate Lab Routine Memory loss Expected: 02/20/2023 (Approximate), Expires: 02/21/2024 [facility] Comment on above: Expected: 02/20/2023 (Approximate), Expi res: 02/21/2024 Start: 02-20-2023 End: 02-21-2024 Thyrotropin [Units/volume] in Serum or Plasma TSH Lab Routine Memory loss Expected: 02/20/2023 (Approximate), Expires: 02/21/2024 [facility] Comment on above: Expected: 02/20/2023 (Approximate), Expi res: 02/21/2024 Start: 02-20-2023 End: 02-20-2023 Patient encounter procedure 02/20/2023 1:45 PM EDT Office Visit [facility] [address] [place] [address] Keisha Brambila, HORTICULTURE SUPERINTENDENT - METEOROLOGICAL OBSERVER [address] [address] [facility] Start: 02-02-2023 COVID-19 Vaccine ( season) COVID-19 Vaccine ( season) [facility] Start: 02-02-2023 Influenza vaccination Influenza Vaccine (#1) [facility] Start: 11-20-2022 FUV, Provider: Jackie Mcginnis, Status: Pen, Time: 3:00 PM FUV, Provider: Jackie Mcginnis, Status: Pen, Time: 3:00 PM [facility] B 101 DO Work Phone: Start: 09-22-2022 FUV, Provider: Felipa Milligan, Status: Pen, Time: 3:00 PM FUV, Provider: Felipa Milligan, Status: Pen, Time: 3:00 PM [facility] B 101 DO Work Phone: Start: 09-22-2022 FUV, Provider: Felipa Milligan, Status: Pen, Time: 11:00 AM FUV, Provider: Felipa Milligan, Status: Pen, Time: 11:00 AM [facility] 600 DO Work Phone: Start: 07-31-2022 NPV, Provider: Jackie Mcginnis, Status: Pen, Time: 11:30 AM NPV, Provider: Jackie Mcginnis, Status: Pen, Time: 11:30 AM [facility] 250 DO Work Phone: Start: 07-25-2022 End: 07-25-2022 [facility] Start: 06-26-2022 NPV, Provider: Jackie Mcginnis, Status: Pen, Time: 1:00 PM NPV, Provider: Jackie Mcginnis, Status: Pen, Time: 1:00 PM [facility] 600 DO Work Phone: Start: 05-23-2022 [facility] Start: 05-23-2022 [facility] Start: 05-17-2022 Blood chemistry [facility] Start: 05-17-2022 [facility] Start: 05-16-2022 Blood chemistry [facility] Start: 05-16-2022 [facility] Start: 05-15-2022 Blood chemistry [facility] Start: 05-15-2022 [facility] Start: 05-14-2022 Blood chemistry [facility] Start: 05-14-2022 End: 05-14-2022 [facility] Start: 05-13-2022 Blood chemistry [facility] Start: 05-13-2022 [facility] Start: 05-12-2022 Hospital admission [facility] Start: 05-12-2022 Referral to machine rope maker [facility] Start: 05-12-2022 [facility] Start: 04-04-2022 End: 04-04-2022 Patient encounter procedure 04/04/2022 Office Visit Ye Ramirez MD [address] [place] [id number] [facility] Start: 02-02-2022 Influenza vaccination Sequential Influenza Vaccine (#1) [facility] Start: 12-27-2021 End: 12-27-2021 Patient encounter procedure 12/27/2021 Office Visit Ye Ramirez MD [address] [facility] [address] [place] [id number] [facility] Start: 12-15-2021 FUV, Provider: Felipa Milligan, Status: Pen, Time: 10:40 AM FUV, Provider: Felipa Milligan, Status: Pen, Time: 10:40 AM [facility] 600 DO Work Phone: Start: 11-11-2021 History and physical examination, annual for health maintenance Wellness Visit [facility] Start: 09-27-2021 End: 09-27-2021 Patient encounter procedure 09/27/2021 Office Visit Psychiatry Ye Lobo MD [address] [place] [address] [facility] Start: 09-20-2021 FUV, Provider: Felipa Milligan, Status: Pen, Time: 10:30 AM FUV, Provider: Felipa Milligan, Status: Pen, Time: 10:30 AM [facility] 250 DO Work Phone: Start: 09-13-2021 DTaP/Tdap/Td Vaccines (2 - Td or Tdap) DTaP/Tdap/Td Vaccines (2 - Td or Tdap) [facility] Start: 09-13-2021 Hemoglobin A1c measurement A1C [facility] Start: 09-13-2021 Tetanus vaccination Tetanus: Every 10yrs [facility] Start: 08-16-2021 FUV, Provider: Felipa Milligan, Status: Pen, Time: 11:30 AM FUV, Provider: Felipa Milligan, Status: Pen, Time: 11:30 AM [facility] 250 DO Work Phone: Start: 08-05-2021 EKG, Provider: [facility] 1,[id number], Status: Pen, Time: 1:30 PM EKG, Provider: [facility] 1,[id number], Status: Pen, Time: 1:30 PM [facility] 250 DO Work Phone: Start: 07-12-2021 FUV, Provider: Eyad Mims, Status: Pen, Time: 10:30 AM FUV, Provider: Eyad Mims, Status: Pen, Time: 10:30 AM [facility] 250 DO Work Phone: Start: 06-29-2021 FUV, Provider: Felipa Milligan, Status: Pen, Time: 10:30 AM FUV, Provider: Felipa Milligan, Status: Pen, Time: 10:30 AM [facility] [address] [place] Work Phone: Start: 06-20-2021 COVID-19 Vaccine (4 - Booster for Pfizer series) COVID-19 Vaccine (4 - Booster for Pfizer series) [facility] Start: 06-20-2021 COVID-19 Vaccine (6 - Pfizer series) COVID-19 Vaccine (6 - Pfizer series) [facility] Start: 05-05-2021 FUV, Provider: Felipa Milligan, Status: Pen, Time: 11:20 AM FUV, Provider: Felipa Milligan, Status: Pen, Time: 11:20 AM [facility] [address] [place] Work Phone: Start: 05-02-2021 STRESSNUC2, Provider: KEVIN HHVI NUCLEAR 01,[id number], Status: Pen, Time: 12:30 PM STRESSNUC2, Provider: KEVIN HHVI NUCLEAR 01,[id number], Status: Pen, Time: 12:30 PM [facility] [address] [place] Work Phone: Start: 04-27-2021 STRESSNUC2, Provider: KEVIN HHVI NUCLEAR 01,[id number], Status: Pen, Time: 12:30 PM STRESSNUC2, Provider: KEVIN HHVI NUCLEAR 01,[id number], Status: Pen, Time: 12:30 PM [facility] [address] [place] Work Phone: Start: 03-22-2021 EKG, Provider: [facility] 1,[id number], Status: Pen, Time: 8:00 AM EKG, Provider: [facility] 1,[id number], Status: Pen, Time: 8:00 AM [facility] 250 DO Work Phone: Start: 03-15-2021 GEORGE, Provider: [facility] 1,[id number], Status: Pen, Time: 1:45 PM GEORGE, Provider: [facility] 1,[id number], Status: Pen, Time: 1:45 PM [facility] 250 DO Work Phone: Start: 07-16-2020 Pneumococcal Vaccine: 65+ Years (2 - PCV) Pneumococcal Vaccine: 65+ Years (2 - PCV) [facility] Start: 07-16-2020 Pneumococcal Vaccine: Age 65+ (2 - PCV) Pneumococcal Vaccine: Age 65+ (2 - PCV) [facility] Start: 07-16-2020 Pneumococcal Vaccine: Age 65+ (2 of 2 - PCV) Pneumococcal Vaccine: Age 65+ (2 of 2 - PCV) [facility] Start: 2013 Abdominal aortic aneurysm screening Abdominal Aortic Aneurysm (AAA) Screening [facility] Start: 2013 Fall risk assessment Falls Risk Assessment [facility] Start: 2013 Pneumococcal Vaccine: 65+ Years (1 - PCV) Pneumococcal Vaccine: 65+ Years (1 - PCV) [facility] Start: 2008 Hepatitis B Vaccines (1 of 3 - Risk 3-dose series) Hepatitis B Vaccines (1 of 3 - Risk 3-dose series) [facility] Start: 1998 Administration of herpes zoster vaccine Zoster Vaccines (1 of 2) [facility] Start: 1998 Screening for malignant neoplasm of colon [facility] Start: 1998 Zoster Vaccines (1 of 2) Zoster Vaccines (1 of 2) [facility] Start: 1970 DTaP/Tdap/Td Vaccines (1 - Tdap) DTaP/Tdap/Td Vaccines (1 - Tdap) [facility] Start: 12-31-1967 DTaP/Tdap/Td Vaccines (1 - Tdap) DTaP/Tdap/Td Vaccines (1 - Tdap) [facility] Start: 12-31-1967 Urine screening for protein Diabetes: Urine Protein Screening [facility] Start: 1966 Hepatitis C screening Hepatitis C Screening [facility] Start: 1960 Depression Screening Depression Screening [facility] Start: 1958 Diabetic foot examination [facility] Start: 1958 Glaucoma screening Diabetes: Retinopathy Screening [facility] Start: 1958 Microalbumin measurement, urine, quantitative Urine Microalbumin [facility] Start: 1958 Ophthalmic examination and evaluation Ophthalmology Exam [facility] Start: 1958 Preventive dental service Diabetes: Dental Exam [facility] Start: 1958 Urine screening for protein Urine Microalbumin [facility] Start: 12-31-1951 History and physical examination, annual for health maintenance Wellness Visit [facility] Start: 12-31-1951 Medicare Wellness Visit Medicare Wellness Visit [facility] Start: 07-02-1949 COVID-19 Vaccine (#1) COVID-19 Vaccine (#1) [facility] Start: 1948 Creatinine measurement Creatinine Level [facility] Start: 1948 Hemoglobin A1c measurement [facility] Start: 1948 Lipid panel Lipid Panel [facility] Start: 1948 Medicare Advantage Annual Wellness Visit (AWV) Medicare Advantage Annual Wellness Visit (AWV) [facility] Start: 1948 Medicare Annual Wellness Visit Medicare Annual Wellness Visit (AWV) [facility] Start: 1948 Potassium measurement Potassium Level [facility] Start: 1948 Prostate specific antigen measurement PSA Level [facility] Start: 1948 Screening for malignant neoplasm of colon [facility] Start: 1948 Tetanus vaccination Tetanus: Every 10yrs [facility] Start: 1948 Thyroid stimulating hormone measurement TSH Level [facility] Patient Education [facility] Work Phone: Patient referral [facility] Work Phone: Immunizations Immunization Date Immunization Notes Care Provider [facility] 02-24-2024 influenza, high dose seasonal, preservative-free Mona Baker MD Work Phone: [facility] 02-24-2024 RSV, recombinant, protein subunit RSVpreF, adjuvant reconstitu, 120mcg/0.5mL, PF (Arexvy) Mona Baker MD Work Phone: [facility] 02-24-2024 zoster vaccine recombinant Mona Baker MD Work Phone: [facility] 03-19-2023 RSV, recombinant, protein subunit RSVpreF, adjuvant reconstitu, 120mcg/0.5mL, PF (Arexvy) Moan Baker MD Work Phone: [facility] 03-19-2023 SARS-COV-2 (COVID-19 ) vaccine, mRNA, spike protein, LNP, PF, 50 mcg/0.5 mL Mona Baker MD Work Phone: [facility] 03-19-2023 zoster vaccine recombinant Mona Baker MD Work Phone: [facility] 03-14-2023 Influenza, High-dose Seasonal, Quadrivalent, Preservative Free Mona Baker MD Work Phone: [facility] 03-14-2023 Pneumococcal Conjuga te PCV 20 Mona Baker MD Work Phone: [facility] 03-14-2023 influenza virus vacc ine, unspecified formulation Ye Lobo MD Work Phone: [facility] 04-03-2022 COVID-19 mRNA Bivale nt Booster (Pfizer) MD Mona Baker [facility] 04-03-2022 Flu vaccine, quadrivalent, high-dose, preservative free, age 65y+ (FLUZONE) Jackie Mcginnis MD Work Phone: [facility] Work Phone: 04-03-2022 influenza virus vacc ine, unspecified formulation Andi WARE [facility] 04-25-2021 Pfizer-BioNTPhrazit COVI D-19 Vacc 30 MCG/0.3ML Intramuscular Suspension Mona Baker Work Phone: [facility] 04-11-2021 influenza virus vacc ine, unspecified formulation Andi WARE [facility] 04-11-2021 influenza, injectabl e, quadrivalent, contains preservative Mona Baker Work Phone: [facility] [address] [place] Work Phone: Comment on above: Series: 03-30-2021 Fluzone High-Dose Quadrivalent 0.7 ML Intramuscular Suspension Prefilled Syringe Mona Baker Work Phone: [facility] 600 DO Work Phone: 03-30-2021 influenza virus vacc ine, unspecified formulation Lawson MATHIS [facility] Comment on above: Result Comment: Andrei dalton: Unknown Result Comment: Rout e: Unknown 03-21-2021 Pfizer-BioNTech COVI D-19 Vacc 30 MCG/0.3ML Intramuscular Suspension Mona Baker Work Phone: [facility] Comment on above: Series: 08-26-2020 Pfizer-BioNTech COVI D-19 Vacc 30 MCG/0.3ML Intramuscular Suspension; Translations: [Pfizer-BioNTech COVID-19 Vaccine] Mona Baker Work Phone: [facility] 600 DO Work Phone: Comment on above: Reason for Medicatio n: Prophylaxis Reason for Medicatio n: Prophylaxis 08-11-2020 Pfizer-BioNTech COVI D-19 Vacc 30 MCG/0.3ML Intramuscular Suspension Mona Baker Work Phone: [facility] Comment on above: Series: 07-29-2020 Pfizer-BioNTech COVI D-19 Vacc 30 MCG/0.3ML Intramuscular Suspension; Translations: [Pfizer-BioNTech COVID-19 Vaccine] Mona M Olivia Work Phone: [facility] [address] [place] Work Phone: Comment on above: Series: Reason for Medicatio n: Prophylaxis Reason for Medicatio n: Prophylaxis 03-28-2020 influenza virus vacc ine, unspecified formulation Andi WARE [facility] 03-28-2020 influenza, high dose seasonal, preservative-free Mona M Olivia Work Phone: [facility] [address] [place] Work Phone: 03-17-2020 influenza virus vacc ine, unspecified formulation Andi Sian's Plan [facility] 03-17-2020 influenza, seasonal, injectable Mona Jens Olivia Work Phone: [facility] 600 DO Work Phone: 02-25-2020 influenza virus vacc ine, unspecified formulation Felipa Milligan [facility] 02-21-2020 influenza virus vacc ine, unspecified formulation Andi Sian's Plan [facility] 02-21-2020 influenza, high dose seasonal, preservative-free Mona Jens Olivia Work Phone: [facility] 600 DO Work Phone: 07-16-2019 pneumococcal polysaccharide vaccine, 23 valent Mona Ward Olivia Work Phone: [facility] 600 DO Work Phone: Comment on above: Result Comment: Rout e: Unknown Result Comment: Rout e: Unknown 04-07-2019 influenza, seasonal, injectable, preservative free Mona Baker MD Work Phone: [facility] 03-20-2019 influenza virus vacc ine, unspecified formulation Andi WARE [facility] 03-20-2019 influenza, high dose seasonal, preservative-free Mona M Olivia Work Phone: [facility] 600 DO Work Phone: 03-04-2019 influenza virus vacc ine, unspecified formulation Mona M Olivia Work Phone: [facility] [address] [place] Work Phone: 02-26-2018 influenza virus vacc ine, unspecified formulation Mona M Olivia Work Phone: [facility] [address] [place] Work Phone: 03-04-2017 influenza, high dose seasonal, preservative-free Mona M Olivia Work Phone: [facility] [address] [place] Work Phone: 04-04-2016 influenza virus vacc ine, unspecified formulation Mona M Olivia Work Phone: [facility] [address] [place] Work Phone: 03-16-2015 influenza virus vacc ine, unspecified formulation Andi WARE [facility] 03-16-2015 influenza, seasonal, injectable Mona M Olivia Work Phone: [facility] 600 DO Work Phone: 03-04-2015 influenza virus vacc ine, unspecified formulation Mona M Olivia Work Phone: [facility] [address] [place] Work Phone: 03-04-2014 influenza virus vacc ine, unspecified formulation Mona M Olivia Work Phone: [facility] [address] [place] Work Phone: 03-07-2013 influenza, seasonal, injectable Leo Milligan [facility] Comment on above: Early/Late Reason: N ursing Judgment Early/Late Reason: N ursing Judgment 03-04-2012 influenza virus vacc ine, unspecified formulation Mona Ward Olivia Work Phone: [facility] [address] [place] Work Phone: 09-14-2011 tetanus toxoid, redu kelsea diphtheria toxoid, and acellular pertussis vaccine, adsorbed Leo Milligan [facility] 06-04-2011 tetanus toxoid, adsorbed Travon Ward Olivia Work Phone: [facility] [address] [place] Work Phone: 03-04-2011 influenza, high dose seasonal, preservative-free Jackie Mcginnis MD Work Phone: [facility] Work Phone: 03-04-2010 influenza, high dose seasonal, preservative-free Jackie Mcginnis MD Work Phone: [facility] Work Phone: 04-24-2009 novel influenza-H1N1 -09, preservative-free, injectable Mona Ward Olivia Work Phone: [facility] 600 DO Work Phone: 06-04-2008 pneumococcal polysaccharide vaccine, 23 valent Mona Ward Olivia Work Phone: [facility] [address] [place] Work Phone: influenza virus vacc ine, unspecified formulation Mona Ward Olivia Work Phone: [facility] [address] [place] Work Phone: Comment on above: 2010 2009 2008 Payers Date Payer Category Payer Medicare [id number] 2023 Self-pay [id number] 2022 Worker's Compensation [employer] [id number] 2022 Medicare [id number]. [id number] 2022 Medicare (Managed Care) [employer] [id number] 1959 Medicare [id number] 2.16.840.1.487847.19 1948 Unknown [id number] 2.16.840.1.769499.3.579. 2.1068 1948 Unknown [id number] 2.16.840.1.487683.3.579. 2.1068 1948 Unknown [id number] 2.16.840.1.806163.3.579. 2.593 1948 Unknown [id number] 2.16.840.1.042119.3.579. 2.593 1948 Unknown [id number] 2.16.840.1.442490.3.579. 2.593 1948 Unknown [id number] 2.16.840.1.366836.3.579. 2.593 1948 Unknown [id number] 2.16.840.1.064625.3.579. 2.593 1948 Unknown [id number] 2.16.840.1.973839.3.579. 2.593 1948 Unknown [id number] 2.16.840.1.951310.3.579. 2.593 1948 Unknown [id number] 2.16.840.1.258528.3.579. 2.593 1948 Unknown [id number] 2.16.840.1.715322.3.579. 2.593 1948 Unknown [id number] 2.16.840.1.675382.3.579. 2.593 1948 Unknown [id number] 2.16.840.1.610990.3.579. 2.593 1948 Unknown [id number] 2.16.840.1.572859.3.579. 2.593 1948 Unknown [id number] 2.16.840.1.236431.3.579. 2.356 1948 Unknown [id number] 2.16.840.1.623800.3.579. 2.356 1948 Unknown [id number] 2.16.840.1.425352.3.579. 2.356 1948 Unknown [id number] 2.16.840.1.271663.3.579. 2.356 1948 Unknown [id number] 2.16.840.1.162107.3.579. 2.356 1948 Unknown [id number] 2.16.840.1.646814.3.579. 2.356 1948 Unknown [id number] 2.16.840.1.465771.3.579. 2.356 1948 Unknown [id number] 2.16.840.1.541272.3.579. 2.72 1948 Unknown [id number] 2.16.840.1.606708.3.579. 2.72 1948 Unknown [id number] 2.16840.1.118866.3.579. 2.72 1948 Unknown [id number] 2.840.1.011456.3.579. 2.72 1948 Unknown [id number] 2.840.1.883827.3.579. 2.72 1948 Unknown [id number] 2.840.1.970161.3.579. 2.72 1948 Unknown [id number] 2.840.1.426902.3.579. 2.903 1948 Unknown [id number] 2.16840.1.274597.3.579. 2.903 1948 Unknown [id number] 2.840.1.003263.3.579. 2.903 1948 Unknown [id number] 2.16840.1.767811.3.579. 2.727 1948 Unknown [id number] 2.16840.1.657355.3.579. 2.72 1948 Unknown [id number] 2.16840.1.959487.3.579. 2.727 1948 Unknown [id number] 2.16840.1.949191.3.579. 2.72 1948 Unknown [id number] 2.16.840.1.153019.3.579. 2.72 1948 Unknown [id number] 2.16.840.1.553016.3.579. 2. 1948 Unknown [id number] 2.16.840.1.107214.3.579. 2.72 1948 Unknown [id number] 2.16.840.1.749663.3.579. 2.72 1948 Unknown [id number] 2.16.840.1.171650.3.579. 2.1258 1948 Unknown [id number] 2.16.840.1.897326.3.579. 2.1258 1948 Unknown [id number] 2.16.840.1.506215.3.579. 2.1258 1948 Unknown [id number] 2.16.840.1.459908.3.579. 2.125 1948 Unknown [id number] 2.16.840.1.551828.3.579. 2.1258 1948 Unknown [id number] 2.16.840.1.625380.3.579. 2.1258 1948 Unknown [id number] 2.16.840.1.804437.3.579. 2.125 1948 Unknown [id number] 2.16.840.1.153214.3.579. 2.125 1948 Unknown [id number] 2.16.840.1.245128.3.579. 2.125 1948 Unknown [id number] 2.16.840.1.291627.3.579. 2.125 1948 Unknown [id number] 2.16.840.1.689140.3.579. 2.125 1948 Unknown [id number] 2.16.840.1.586936.3.579. 2.1259 1948 Unknown [id number] 2.16.840.1.758687.3.579. 2.1259 1948 Unknown [id number] 2.16.840.1.457866.3.579. 2.72 1948 Unknown [id number] 2.16.840.1.623321.3.579. 2.72 1948 Unknown [id number] 2.16.840.1.266477.3.579. 2.72 1948 Unknown [id number] 2.16.840.1.931306.3.579. 2. 1948 Unknown [id number] 2.16.840.1.056794.3.579. 2. 1948 Unknown [id number] 2.16840.1.688806.3.579. 2. 1948 Unknown [id number] 2.16.840.1.795555.3.579. 2. 1948 Unknown [id number] 2.16.840.1.957708.3.579. 2 1948 Unknown [id number] 2.16.840.1.776801.3.579. 2. 1948 Unknown [id number] 2.16.840.1.364154.3.579. 2.72 1948 Unknown [id number] 2.16.840.1.150064.3.579. 2.72 1948 Unknown [id number] 2.16.840.1.154749.3.579. 2. 1948 Unknown [id number] 2.16.840.1.014107.3.579. 2.72 1948 Unknown [id number] 2.16.840.1.133792.3.579. 2 1948 Unknown [id number] 2.16.840.1.386231.3.579. 2.72 1948 Unknown [id number] 2.16.840.1.063815.3.579. 2.727 1948 Unknown [id number] 2.16.840.1.538834.3.579. 2.72 1948 Unknown [id number] 2.16.840.1.573294.3.579. 2.72 1948 Unknown [id number] 2.16.840.1.122072.3.579. 2.72 1948 Unknown [id number] 2.16.840.1.973402.3.579. 2.72 1948 Unknown [id number] 2.16840.1.947657.3.579. 2.124 1948 Unknown [id number] 2.16840.1.325745.3.579. 2.124 1948 Unknown [id number] 2.16840.1.725707.3.579. 2.124 1948 Unknown [id number] 2.16840.1.710046.3.579. 2.124 1948 Unknown [id number] 2.840.1.769101.3.579. 2.72 Unknown Unknown HCAP/HFA/FAP Active [id number] Unknown [id number] 2.16840.1.861998.3.579. 2.531 Unknown [id number] 2.16840.1.466512.3.579. 2.531 Unknown [id number] 2.16840.1.434757.3.579. 2.531 Social History Date Type Detail Facility Start: 03-20-2023 End: 04-30-2023 No alcohol use No alcohol use [facility] Comment on above: QUIT 11/2001; YETTI CUP OF COFFEE DAILY, PROTIEN SHAKE WITH COFFEE; Start: 06-21-2021 End: 12-05-2023 Tobacco smoking status NHIS Never smoked tobacco [facility] Start: 06-21-2021 End: 11-09-2022 Tobacco use and exposure Smokeless tobacco non-user [facility] Start: 06-21-2021 End: 01-29-2024 Alcohol intake Ex-drinker (finding) [facility] Start: 1950 Sex Assigned At Not on file [facility] Start: 09-17-2021 End: 04-03-2024 Exposure to SARS-CoV-2 (event) Not sure [facility] Tobacco [facility] Comment on above: deies DENIES denies Start: 03-20-2023 End: 04-30-2023 Sex Assigned At Male [facility] Tobacco smoking status No Smokin g Status Entered [facility] Start: 03-23-2022 End: 11-09-2022 Tobacco smoking status Ex-smoker (finding) [facility] Comment on above: The patient states, I quit smoking 22 years ago. Tobacco smoking status Never [facility] Comment on above: The patient states, I quit smoking 22 years ago. Start: 1950 Sex Assigned At Male [facility] smoking consumption unknown [facility] End: 06-04-2000 History of tobacco use Current smoker [facility] End: 06-04-2000 History of tobacco use Cigarette Smoker [facility] Start: 03-26-2023 End: 03-12-2024 Alcohol intake Lifetime non-drinker (finding) [facility] Work Phone: Within the last year , [...] Identifier Dates Insertion, pacemaker Dual-chamber implantable defibrillator ()[id number] FDA Start: 03-08-2021 CL CLOSURE DEVIC E [...] /State Functional Status Date Assessment Result Facility 03-31-2024 Functional Status N/A [facility] 03-02-2024 Functional Status No [facility] 03-02-2024 Functional Status [facility] 02-05-2024 Functional Status N/A [facility] 01-23-2024 Functional Status N/A [facility] 12-05-2023 Functional Status N/A [facility] 08-28-2023 Functional Status N/A [facility] 08-27-2023 Functional Status [facility] 07-17-2023 Functional Status N/A [facility] 04-09-2023 Functional Status No [facility] 01-08-2023 Functional Status N/A [facility] 09-22-2022 Functional Status N/A [facility] 08-23-2022 Functional Status N/A [facility] 08-16-2022 Functional Status N/A [facility] 08-09-2022 Functional Status N/A [facility] 06-02-2022 Functional Status N/A [facility] 05-14-2022 Functional status Patient at [facility] Work Phone: 05-12-2022 Functional status Patient at [facility] Work Phone: 03-31-2022 Functional Status No [facility] 03-23-2022 Functional Status N/A [facility] 03-09-2022 Functional Status N/A [facility] 02-09-2022 Functional Status No [facility] 02-08-2022 Functional Status [facility] 02-02-2022 Functional Status N/A [facility] 2021 Functional Status Yes [facility] 12-15-2021 PHQ-9 [id number] Moderate (10-14) [facility] 600 DO Work Phone: Mental Status Date Assessment Result Facility 05-14-2022 Cognitive function Cognitive Sta tus Patient at [facility] Work Phone: 05-12-2022 Cognitive function Cognitive Sta tus Patient at [facility] Work Phone: Clinical Notes 07-23-2019 to 04-03-2024 Felipa Milligan MD - 04/03/2024 11:00 AM EDTPatient InstructionsTelephone Encounter - Tranoumar Reddykins - 04/03/2024 8:06 AM EDTTelephone Encounter - Tranoumar Reddykins - 04/03/2024 8:06 AM EDT Note Date & Type Note Facility 04-03-2024 History of Present illness Narrative Cristo Gil is a 73 y.o. male Chief Complaint Follow-up HPI Patient is in the office for follow-up for the problems noted below, he came with his in the wheelchair. His Parkinson's has become advanced to the point where he is unable to walk on his own. And as a result he had another fall recently requiring ER visit with no indication of trauma of significance. His cardiovascular condition is stable in relation to ischemic heart disease, cardiac arrhythmias and heart failure. The findings of the last echocardiogram from February 2024 was shared with the patient and his which showed EF of 45%. I did see the patient 2 weeks ago at [facility] as an inpatient for acute heart failure decompensation with resolution after aggressive diuresis. His medical therapy which is very complicated was reviewed with the patient and his . His lungs sounded clear and his EKG revealed AV sequential pacemaker. ASSESSMENT AND PLAN: 1. Severe coronary artery disease, status post bypass surgery in the remote past, cardiac catheterization May 2021 revealed patent ZAVALA and 2 other vein grafts, the last graft was occluded but there was excellent collaterals. We will continue aggressive risk factor management for CAD continue nitrates 2. Mild ischemic cardiomyopathy stage C, functional class II NYHA for CHF, ejection fraction February 2024 was 45%, current medical therapy will be left unchanged, currently on GDMT which has been well-tolerated 4. AICD in place for primary prevention purposes, being monitored in the [facility]. 5. Type II diabetes, managed by PCP. A1c is on target 6. Hyperlipidemia, on medical therapy, under control. 7. Hypothyroidism, on replacement therapy. Under control, thyroid function will be followed periodically while on amiodarone 8. Obstructive sleep apnea on CPAP machine. 9. Parkinson's disease stable, advancing and causing severe limitations of mobility 10. History of ventricular tachycardia with no recurrent events, currently on amiodarone therapy 11. Paroxysmal atrial fibrillation, currently his EKG showed AV sequential pacing 12. CVA with mild left-sided residual deficit followed by neurology 13. Class I obesity, patient was encouraged to reduce caloric consumption especially from snacks 14. High risk medication with anticoagulation and amiodarone both have been monitored closely. 15. Early dementia with forgetfulness but no behavior changes 16. Recurrent falls, education regarding prevention of fall was discussed and provided the patient and his Review of Systems Cardiovascular: Positive for dyspnea on exertion. Vitals: 04/03/24 1130 BP: 124/64 BP Location: Right arm Patient Position: Sitting Pulse: 60 Height: 1.778 m (5' 10 ) Objective Physical Exam Constitutional: Appearance: Normal appearance. HENT: Nose: Nose normal. Neck: Vascular: No carotid bruit. Cardiovascular: Rate and Rhythm: Normal rate. Pulses: Normal pulses. Heart sounds: Normal heart sounds. Comments: Left foot wrapping noted Pulmonary: Effort: Pulmonary effort is normal. Abdominal: [...] (200 mg) by mouth once daily., Disp: 90 tablet, Rfl: 1 ARIPiprazole (Abilify) 10 mg disintegrating tablet, Take 1 tablet (10 mg) by mouth once daily., Disp: , Rfl: aspirin 81 mg EC [...] by mouth once daily., Disp: , Rfl: dapagliflozin propanediol (Farxiga) 5 mg, Take 1 tablet (5 mg) by mouth once every 24 hours., Disp: , Rfl: enalapril (Vasotec) 10 mg tablet, Take 1 tablet (10 mg) by mouth 2 times a day., Disp: 180 tablet, Rfl: 3 glimepiride (Amaryl) 2 mg tablet, Take 1 tablet (2 mg) by mouth once daily in the morning. Take before meals., Disp: , Rfl: isosorbide mononitrate ER (Imdur) 60 mg 24 hr tablet, Take 1 tablet (60 mg) by mouth once daily., Disp: 90 tablet, Rfl: 3 lamoTRIgine (LaMICtal) 200 mg tablet, Take 1 tablet (200 mg) by mouth once daily., Disp: , Rfl: levothyroxine (Synthroid, Levoxyl) 200 mcg tablet, Take 1 tablet (200 mcg) by mouth once daily in the morning. Take before meals., Disp: 90 tablet, Rfl: 3 magnesium oxide (Mag-Ox) 400 mg (241.3 mg magnesium) tablet, Take 1 tablet (400 mg) by mouth once daily., Disp: , Rfl: memantine (Namenda) 5 mg tablet, Take 1 tablet (5 mg) by mouth 2 times a day., Disp: , Rfl: metFORMIN (Glucophage) 1,000 mg tablet, Take 1 tablet (1,000 mg) by mouth once daily with breakfast., Disp: , Rfl: nitroglycerin (Nitrostat) 0.4 mg [...] (10 mg) by mouth once daily., Disp: 90 tablet, Rfl: 3 warfarin (Coumadin) 4 mg tablet, Take as directed per After Visit Summary., Disp: 14 tablet, Rfl: 0 Assessment/Plan 1. Atherosclerosis of coronary artery bypass graft of [place] heart without angina pectoris Follow Up In Cardiology Follow Up In Cardiology 2. Paroxysmal atrial fibrillation (Multi) ECG 12 Lead 3. High risk medication use 4. Ischemic cardiomyopathy 5. Ventricular tachycardia (paroxysmal) (Multi) 6. AICD (automatic cardioverter/defibrillator) present 7. Hypertension, essential, benign 8. Mixed hyperlipidemia 9. S/P CABG (coronary artery bypass graft) 10. S/P PTCA (percutaneous transluminal coronary angioplasty) 11. Stage 3b chronic kidney disease (Multi) 12. Hypothyroidism, adult 13. Obstructive sleep apnea, adult Scribe Attestation By signing my name below, I, Maria Del Carmen Aguilar LPN, Scribe attest that this documentation has [...] discussion and plan. documented in this encounter [facility] Work Phone: 04-03-2024 Instructions Maria Del Carmen Campbell LPN - 04/03/2024 11:00 AM EDT Please bring all medicines, vitamins, and herbal supplements with you when you come to the office. Prescriptions will not be filled unless you are compliant with your follow up appointments or have a follow up appointment scheduled as per instruction of your physician. Refills should be requested at the time of your visit. Amiodarone follow up per routine EKG done in office today pft at this time Pacemaker/Defibrillator follow up per routine documented in this encounter [facility] Work Phone: 04-03-2024 Telephone encounter Note Spoke to Jessica at Dr. Prince's office she stated pt is having a surgical procedure done on his foot due to a chronic wound. The procedure is being done on Sunday. Jessica spoke with Pain Management at [facility] and they took care of the bridging for coumadin. Thank you [facility] 04-03-2024 Miscellaneous Notes Spoke to Jessica at Dr. Prince's office she stated pt is having a surgical procedure done on his foot due to a chronic wound. The procedure is being done on Sunday. Jessica spoke with Pain Management at [facility] and they took care of the bridging for coumadin. Thank you documented in this encounter [facility] 04-01-[address] Tosin Prince called requesting bridging for coumadin if Dr. Baker can because [facility] don't do bridging please advise please call direct [phone] ext [phone] Jessica [facility] 04-01-[address] Tosin Prince called requesting bridging for coumadin if Dr. Baker can because [facility] don't do bridging please advise please call direct [phone] ext [phone] Jessica documented in this encounter [facility] 03-31-2024 Hospital Discharge instructions Patient Education 03/31/2024 13:27:08 Musculoskeletal Pain Musculoskeletal Pain Musculoskeletal pain refers to aches and pains in your bones, joints, muscles, and the tissues that surround them. This pain can occur in any part of the body. It can last for a short time (acute) or a long time (chronic). A physical exam, lab tests, and imaging studies may be done to find the cause of your musculoskeletal pain. Follow these instructions at home: Lifestyle Try to control or lower your stress levels. Stress increases muscle tension and can worsen musculoskeletal pain. It is important to recognize when you are anxious or stressed and learn ways to manage it. This may include: ?Meditation or yoga. ?Cognitive or behavioral therapy. ?Acupuncture or massage therapy. You may continue all activities unless the activities cause more pain. When the pain gets better, slowly resume your normal activities. Gradually increase the intensity and duration of your activities or exercise. Managing pain, stiffness, and swelling Treatment may include medicines for pain and inflammation that are taken by mouth or applied to the skin. Take evuc-svs-bmivlir and prescription medicines only as told by your health care provider. When your pain is severe, bed rest may be helpful. Lie or sit in any position that is comfortable, but get out of bed and walk around at least every couple of hours. If directed, apply heat to the affected area as often as told by your health care provider. Use the heat source that your health care provider recommends, such as a moist heat pack or a heating pad. ?Place a towel between your skin and the heat source. ?Leave the heat on for 20 30 minutes. ?Remove the heat if your skin turns bright red. This is especially important if you are unable to feel pain, heat, or cold. You may have a greater risk of getting burned. If directed, put ice on the painful area. To do this: ?Put ice in a plastic bag. ?Place a towel between your skin and the bag. ?Leave the ice on for 20 minutes, 2 3 times a day. ?Remove the ice if your skin turns bright red. This is very important. If you cannot feel pain, heat, or cold, you have a greater risk of damage to the area. General instructions Your health care provider may recommend that you see a physical therapist. This person can help you come up with a safe exercise program. If told by your health care provider, do physical therapy exercises to improve movement and strength in the affected area. Keep all follow-up visits. This is important. This includes any physical therapy visits. Contact a health care provider if: Your pain gets worse. Medicines do not help ease your pain. You cannot use the part of your body that hurts, such as your arm, leg, or neck. You have trouble sleeping. You have trouble doing your normal activities. Get help right away if: You have a new injury and your pain is worse or different. You feel numb or you have tingling in the painful area. Summary Musculoskeletal pain refers to aches and pains in your bones, joints, muscles, and the tissues that surround them. This pain can occur in any part of the body. Your health care provider may recommend that you see a physical therapist. This person can help you come up with a safe exercise program. Do any exercises as told by your physical therapist. Lower your stress level. Stress can worsen musculoskeletal pain. Ways to lower stress may include meditation, yoga, cognitive or behavioral therapy, acupuncture, and massage therapy. This information is not intended to replace advice given to you by your health care provider. Make sure you discuss any questions you have with your health care provider. Document Revised: 09/23/2020 Document Reviewed: 09/01/2020 [employer] Patient Education 2023 [employer]. 03/31/2024 13:27:08 Head Injury, Adult Head Injury, Adult There are many types of head injuries. Head injuries can be as minor as a small bump, or they can be a serious medical issue. More severe head injuries include: A jarring injury to the brain (concussion). A bruise (contusion) of the brain. This means there is bleeding in the brain that can cause swelling. A cracked skull (skull fracture). Bleeding in the brain that collects, clots, and forms a bump (hematoma). After a head injury, most problems occur within the first 24 hours, but side effects may occur up to 7 10 days after the injury. It is important to watch your condition for any changes. You may need to be observed in the emergency department or urgent care, or you may have to stay in the hospital. What are the causes? There are many causes of a head injury. Serious head injuries may be caused by car crashes, bicycle or motorcycle crashes, sports injuries, falls, or being struck by an object. What are the symptoms? Symptoms of a head injury include a contusion, bump, or bleeding at the site of the injury. Other physical symptoms may include: Headache. Nausea or vomiting. Dizziness. Blurred or double vision. Sensitivity to bright lights or loud noises. Feeling tired. Trouble waking up. Severe symptoms such as: ?Weakness or numbness on one side of the body. ?Slurred speech or swallowing problems. ?Loss of consciousness. ?Seizures. Mental symptoms may include: Irritability. Confusion and memory problems. Poor attention and concentration. Changes in eating or sleeping habits. Anxiety or depression. How is this diagnosed? This condition is diagnosed based on your symptoms and a physical exam. You may also have imaging tests done, such as a CT scan or an MRI. How is this treated? Treatment for this condition depends on the severity and type of injury you have. The main goal of treatment is to prevent complications and allow the brain time to heal. Mild head injury If you have a mild head injury, you may be sent home, and treatment may include: Observation. A responsible adult should stay with you for 24 hours after your injury and check on you often. Physical rest. Brain rest. Pain medicines. Severe head injury If you have a severe head injury, treatment may include: Close observation. You may have to stay in the hospital and have: ?Frequent physical exams. ?Frequent checks of how your brain and nervous system are working. ?Your blood pressure and oxygen levels checked. Medicines to relieve pain, prevent seizures, and decrease brain swelling. Airway protection and breathing support. This may include using a ventilator. Monitoring and managing swelling inside the brain. Brain surgery. Surgery may include: ?Removing a collection of blood or blood clots. ?Stopping the bleeding. ?Removing a part of the skull to make room for the brain to swell. Follow these instructions at home: Activity Rest. Avoid activities that are hard or tiring. Make sure you get enough sleep. Let your brain rest by limiting activities that take a lot of thought or attention, such as: ?Watching TV. ?Playing memory games and doing puzzles. ?Job-related work or homework. ?Working on the computer, using social media, and texting. Avoid activities that could cause another head injury, such as playing sports, until your health care provider approves. Ask your provider when it is safe for you to return to your regular activities, such as work or school. Ask your provider when you can drive, ride a bicycle, or use machinery. Your ability to react may be slower after a brain injury. Do not do these activities if you are dizzy. Lifestyle Do not drink alcohol until your provider approves. Do not use drugs. Alcohol and certain drugs may slow your recovery and can put you at risk of further injury. If it is hard to remember things, write them down. If you are easily distracted, try to do one thing at a time. Talk with family members or close friends when making important decisions. Tell your friends, family, a trusted colleague, and harvest worker about your injury, symptoms, and restrictions. Ask them to watch for any problems that are new or get worse. General instructions Take ndyo-fag-bbienee and prescription medicines only as told by your provider. Have a responsible adult stay with you for 24 hours after your head injury. They should watch you for any changes in your symptoms and be ready to get help right away. Keep all follow-up visits to make sure your needs are being met and catch any new problems early. How is this prevented? Avoiding another brain injury is very important. In rare cases, another injury can lead to permanent brain damage, brain swelling, or . The risk of this is greatest during the first 7 10 days after a head injury. To avoid injuries: Improve your balance and strength to avoid falls. Wear a seat belt when you are in a moving vehicle. Wear a helmet when riding a bicycle, skiing, or doing any other sport that has a risk of injury. Take safety measures in your home to prevent falls, such as: ?Removing clutter and tripping hazards. ?Using grab bars in bathrooms and handrails by stairs. ?Placing non-slip mats on floors and in bathtubs. ?Improving lighting in dim areas. Where to find more information Brain Injury Association: biausa.org Contact a health care provider if: You have headaches that do not go away. You have dizziness that does not go away. You have double vision or vision changes that do not go away. You have difficulty sleeping. You have changes in your mood. You have new symptoms. Get help right away if: You have sudden: ?Severe headache. ?Severe vomiting. ?Unequal pupil size. One is bigger than the other. ?Vision problems. ?Confusion or irritability. You have a seizure. Your symptoms get worse. You have clear or bloody fluid coming from your nose or ears. These symptoms may be an emergency. Get help right away. Call 911. Do not wait to see if the symptoms will go away. Do not drive yourself to the hospital. This information is not intended to replace advice given to you by your health care provider. Make sure you discuss any questions you have with your health care provider. Document Revised: 03/08/2023 Document Reviewed: 03/08/2023 [employer] Patient Education 2023 [employer]. Follow Up Care 03/31/2024 11:25:41 With:Mona Baker Address: [address] [place] [address]- Business (1) When:04/03/2024 13:17:04 [facility] 03-31-2024 Note ED Patient Education Note Neurology Head Injury, Adult There are many types of head injuries. Head injuries can be as minor as a small bump, or they can be a serious medical issue. More severe head injuries include: ??? A jarring injury to the brain (concussion). ??? A bruise (contusion) of the brain. This means there is bleeding in the brain that can cause swelling. ??? A cracked skull (skull fracture). ??? Bleeding in the brain that collects, clots, and forms a bump (hematoma). After a head injury, most problems occur within the first 24 hours, but side effects may occur up to 7?10 days after the injury. It is important to watch your condition for any changes. You may need to be observed in the emergency department or urgent care, or you may have to stay in the hospital. What are the causes? There are many causes of a head injury. Serious head injuries may be caused by car crashes, bicycle or motorcycle crashes, sports injuries, falls, or being struck by an object. What are the symptoms? Symptoms of a head injury include a contusion, bump, or bleeding at the site of the injury. Other physical symptoms may include: ??? Headache. ??? Nausea or vomiting. ??? Dizziness. ??? Blurred or double vision. ??? Sensitivity to bright lights or loud noises. ??? Feeling tired. ??? Trouble waking up. ??? Severe symptoms such as: ? Weakness or numbness on one side of the body. ? Slurred speech or swallowing problems. ? Loss of consciousness. ? Seizures. Mental symptoms may include: ??? Irritability. ??? Confusion and memory problems. ??? Poor attention and concentration. ??? Changes in eating or sleeping habits. ??? Anxiety or depression. How is this diagnosed? This condition is diagnosed based on your symptoms and a physical exam. You may also have imaging tests done, such as a CT scan or an MRI. How is this treated? Treatment for this condition depends on the severity and type of injury you have. The main goal of treatment is to prevent complications and allow the brain time to heal. Mild head injury If you have a mild head injury, you may be sent home, and treatment may include: ??? Observation. A responsible adult should stay with you for 24 hours after your injury and check on you often. ??? Physical rest. ??? Brain rest. ??? Pain medicines. Severe head injury If you have a severe head injury, treatment may include: ??? Close observation. You may have to stay in the hospital and have: ? Frequent physical exams. ? Frequent checks of how your brain and nervous system are working. ? Your blood pressure and oxygen levels checked. ??? Medicines to relieve pain, prevent seizures, and decrease brain swelling. ??? Airway protection and breathing support. This may include using a ventilator. ??? Monitoring and managing swelling inside the brain. ??? Brain surgery. Surgery may include: ? Removing a collection of blood or blood clots. ? Stopping the bleeding. ? Removing a part of the skull to make room for the brain to swell. Follow these instructions at home: Activity ??? Rest. Avoid activities that are hard or tiring. ??? Make sure you get enough sleep. ??? Let your brain rest by limiting activities that take a lot of thought or attention, such as: ? Watching TV. ? Playing memory games and doing puzzles. ? Job-related work or homework. ? Working on the computer, using social media, and texting. ??? Avoid activities that could cause another head injury, such as playing sports, until your health care provider approves. ??? Ask your provider when it is safe for you to return to your regular activities, such as work or school. ??? Ask your provider when you can drive, ride a bicycle, or use machinery. Your ability to react may be slower after a brain injury. Do not do these activities if you are dizzy. Lifestyle ??? Do not drink alcohol until your provider approves. Do not use drugs. Alcohol and certain drugs may slow your recovery and can put you at risk of further injury. ??? If it is hard to remember things, write them down. ??? If you are easily distracted, try to do one thing at a time. ??? Talk with family members or close friends when making important decisions. ??? Tell your friends, family, a trusted colleague, and harvest worker about your injury, symptoms, and restrictions. Ask them to watch for any problems that are new or get worse. General instructions ??? Take txqh-isw-fvwfwig and prescription medicines only as told by your provider. ??? Have a responsible adult stay with you for 24 hours after your head injury. They should watch you for any changes in your symptoms and be ready to get help right away. ??? Keep all follow-up visits to make sure your needs are being met and catch any new problems early. How is this prevented? Avoiding another brain injury is very important. In rare cases, ano (more content not included)... [facility] 03-25-2024 Telephone encounter Note Ok to do [facility] 03-25-2024 Miscellaneous Notes Ok to do Pt daughter comes into the office and asks for samples of farciga documented in this encounter [facility] 03-25-2024 Telephone encounter Note Pt daughter comes into the office and asks for samples of farciga [facility] 03-20-2024 Telephone encounter Note Pt called refill line [facility] 03-20-2024 Miscellaneous Notes Pt called refill line documented in this encounter [facility] 03-12-2024 History of Present illness Narrative Subjective José Luis Gil is a 73 y.o. year old male Chief Complaint Patient presents with Stroke Parkinson's Disease Memory Loss Sleep Apnea Past Medical History: Diagnosis Date A-fib ([facility]) Abscess of toe, left Anemia Anxiety Arthritis of left foot Asthma ([facility]) Atrial fibrillation ([facility]) 07/2021 Blood in stool 05/2022 [facility] [place] CAD (coronary artery disease) ([facility]) Cataract Cellulitis of toe, left Charcot's joint of left foot CHF (congestive heart failure) ([facility]) 12/2021 [facility] Chronic kidney disease Chronic obstructive pulmonary disease ([facility]) 02/23/2023 Chronic venous insufficiency Contracture of left ankle COPD (chronic obstructive pulmonary disease) ([facility]) Depression ([facility]) Diabetes mellitus ([facility]) Diabetes, polyneuropathy ([facility]) Foot pain, left Foot pain, right GERD (gastroesophageal reflux disease) Heart disease History of being hospitalized 04/2021 A-Fib- After Pacemaker/Defib battery replacement, 2 days Hypercholesterolemia ([facility]) Hypertension ([facility] Hypothyroidism ([facility] Memory problem Myocardial infarction ([facility]) Neuromuscular disorder ([facility]) OM (onychomycosis) Parkinson's disease ([facility]) Stroke ([facility]) Thyroid nodule ([facility]) Type 2 diabetes mellitus with diabetic peripheral angiopathy with gangrene ([facility]) Past Surgical History: Procedure Laterality Date BYPASS GRAFT 2001 Triple Bypass CARDIAC PACEMAKER PLACEMENT 2002 Defibrillator CATARACT EXTRACTION MASTOID SURGERY PACEMAKER BATTERY CHANGE Family History Problem Relation Name Age of Onset Cancer Mother Marisaeliana Faulkner Hypertension Mother Marisaeliana Faulkner Mental illness Mother Marisa Faulkner Arthritis Mother Marisa Faulkner Cancer Father José Luis Mely Chambers Asthma Sibling Cancer Sibling Diabetes Sibling Hypertension [...] Brother John Paul Faulkner Cancer Sister Elisabet Mely Giesen Cancer Brother Max Faulkner Social History Tobacco [...] in upper and lower extremity. Coordination Right: Uvcudj-pp-qgvx normal. Rapid alternating movement normal.Left: Xyynab-ex-fnzd normal. Rapid alternating movement normal. Mild intermittent resting tremor in the right hand. No cogwheel rigidity noted. Gait Not assessed, in wheelchair. 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 RLE Strength illopsoas, quadriceps, [...] History of stroke Patient was seen at [facility] with a medical history of significant carotid artery stenosis, coronary artery disease, hypertension, and hyperlipidemia. He was initially admitted to [facility] for SOB and dyspnea with exertion but [...] at follow up documented in this encounter [facility] 03-09-2024 Note Microbiology PROCEDURE: Blood Culture Charcoal [...] Locations R1: This test was performed at: [facility], [address] [place] [address], [address], [facility] Comment on above: Performed By: #### 1 [id number] #### [facility] [address] [place] [address] 03-09-2024 Note Microbiology PROCEDURE: Blood Culture Charcoal [...] Locations R1: This test was performed at: [facility], [address] [place] [address], [id number] [place] [address], [facility] Comment on above: Performed By: #### 1 [id number] #### [facility] [address] [place] [address] 03-06-2024 History of Present illness Narrative Images [...] Flowsheet Row Patient Outreach from 03/06/2024 in [facility] with Kalpana Gomez LPN Hospital Information ED, Hospital or Snf Facility Discharge? Hospital Patient has been contacted [...] Date 03/04/24 Discharged To: Home Setting Discharge [facility] Engagement Admission Date 03/02/24 Medications Appointments [...] fail to improve. documented in this encounter [facility] 03-04-2024 Hospital Discharge instructions Patient Education 03/04/2024 [...] Follow these instructions at home: Medicines Take uomd-uhl-didkrpi and prescription medicines only as told by your health care provider. Do not stop taking your medicines or change the amount you take. If you are having problems or side effects from your medicines, talk to your health care provider. If you are having difficulty paying for your medicines, contact a social work msw or your clinic. There are many programs [...] provider. Document Revised: 08/29/2022 Document Reviewed: 12/11/2020 [employer] Patient Education 2023 [employer]. Follow Up Care 03/02/2024 08:08:14 With:Mona Baker Address: [address] [place] [address]- Business (1) When:03/06/2024 13:20:00 With:Mona Olivia Address: [address] [place] [address]- Business (1) When:7 to 10 days Comments:Call for followup appointment [facility] 03-04-2024 Note GetWell Learning Par ticipants Patient GetWell Understands Education Yes GetWell Education Video Avoiding COPD Triggers [facility] 03-04-2024 Note [employer] Learning Par ticipants Patient GetWell Understands Education Yes GetWell Education Video Heart Failure: Limiting Sodium [facility] 03-04-2024 Note GetWell Education Vi miguel COPD: How to Use a Nebulizer [employer] Learning Participants Patient GetWell Understands Education Yes [facility] 03-04-2024 Note [employer] Learning Par ticipants Patient GetWell Understands Education I need more education GetWell Education Video Avoiding Infections in the Hospital [facility] 03-04-2024 Evaluation + Plan note Extrac [...] 01:20 PM EDT [address] [place] [address]- Business (1) Additional Instructions: Mona Baker Within 7 to [address] [place] [address]- Business (1) Additional Instructions: Call for followup appointment Heart Failure Exacerbation Extracted from: Title:APSO Note Author:Boaz Teresa III, DO Date:03/03/24 73-year-old male with [place] son's admitted for decompensated heart failure with [...] Diff Sbsq Hospital Care/Day Moderate 35 Minutes 86792 2. Acute on chronic heart failure with [...] Diff Sbsq Hospital Care/Day Moderate 35 Minutes 89515 3. COPD exacerbation (J44.1: Chronic obstructive pulmonary disease with (acute) exacerbation) Mild exacerbation. DuoNebs [facility] Moderate 35 Minutes 67125 4. Hypertensive crisis (I16.9: Hypertensive crisis, unspecified) Blood pressure significantly improved. Continue antihypertensives. Will switch IV Lasix to p.o. prior to discharge Ordered: [facility] Care/Day Moderate 35 Minutes 78582 5. Hyperlipidemia, unspecified, (E78.5: Hyperlipidemia, unspecified)Hyperlipidemia, unspecified [...] Jardiance Extracted from: Title:Admission H & P Author:Aden BROUSSARD, Delaney Regalado Date:03/02/24 1. Acute on chronic respirat ory failure with hypoxia (J96.21: Acute and chronic respiratory failure with hypoxia) this is due to CHF and COPD supplemental oxygen as tolerated wean off as able per patient, he was on home oxygen at some point but this was discontinued Ordered: Initial Hospital Care/Day High 75 Minutes 72854 2. Acute on chronic heart failure (I50.9: [...] Ordered: Initial Hospital Care/Day High 75 Minutes 14817 3. COPD exacerbation (J44.1: Chronic obstructive pulmonary disease with (acute) exacerbation) mild exacerbation will continue breathing treatment will try to avoid steroid since wheezing is not significant and may improve when appropriately diuresed. resume home breathing treatment Ordered: Initial Hospital Care/Day High 75 Minutes 02271 4. Hypertensive crisis (I16.9: Hypertensive crisis, unspecified) resume home meds when med rec is done Ordered: Initial Hospital Care/Day High 75 Minutes 22368 5. Hyperlipidemia, unspecified, (E78.5: Hyperlipidemia, unspecified)Hyperlipidemia, unspecified continue statin Ordered: Initial Hospital Care/Day High 75 Minutes 16283 6. PAF (paroxysmal atrial fibrillation) (I48.0: Paroxysmal atrial fibrillation) rate is well controlled continue home meds resume eliquis as DVT prophylaxis agent and for atrial fibrillation Ordered: Initial Hospital Care/Day High 75 Minutes 62860 7. Parkinsonian syndrome (G20: Parkinson's disease) continue med Ordered: Initial Hospital Care/Day High 75 Minutes 72940 8. Type 2 diabetes mellitus with hyperlipidemia (E11.69: Type 2 diabetes mellitus with other specified complication) elevated BGL this morning Solu-medrol given to patient may be contributing resume home medications accucheck achs Ordered: Initial Hospital Care/Day High 75 Minutes 66850 9. Hypertension (I10: Essential (primary) hypertension) poor control monitor and adjust home medications Ordered: Initial Hospital Care/Day High 75 Minutes 99948 10. Diabetic foot ulcer (E11.621: Type 2 diabetes mellitus with foot ulcer) wound appears clean and doesn't look infected. patient follows with podiatry daily localized wound care Ordered: Initial Hospital Care/Day High 75 Minutes 27627 Non-pressure chronic ulcer of other part of [...] Weight Extracted from: Title:ED Note Author:Cecily Manzano, Milkaxavier Wade Smith te:03/02/24 1. Acute on chronic respirat ory [...] Therapy PT & PTT Rapid COVID Antigen ([facility]) Saline Lock Insert Troponin 0 Hr. 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 / 4692107558 / Confirmed Carotid artery stenosis / 459638985 / Confirmed Charcot's joint of foot due to diabetes / 239058718 / Confirmed Chronic anemia / 085246220 / Confirmed COPD without exacerbation / 720669388 / Confirmed Chronic systolic h (more content not included)...[facility] Comment on above:Result Comment: Electronically Signed By: Danna BROUSSARD, Felipa\.br\Date and Time Signed: 03/04/24 13:55 [id number] NoteDischarge Summary Admission and Discharge Information Admit [...] minimal residual deficit who was admitted to [facility] on March 02, 2024 with acute [...] -- 03/02/24 11:20:00 EDT, Consult and Co-manage, [facility] Physical Exam Vitals & Measurements T: [...] Discharge Diet Discharge D (more content not included)...[facility]Result Comment: Electronically Signed By: Boaz Teresa III, DO\mary\Date and Time Signed: 03/04/24 13:47 [id number] Telephone encounter Note* Telephone Encounter - Nettie Hernandez - 03/04/2024 1:34 PM EDT [facility] [place] [facility] calls to sched felicia for resp fail w hypoxia , chf, hyperlipodemia, admit 03/02 discharge 03/04, pt sched, [id number] Miscellaneous Notes* Telephone Encounter - Nettie Hernandez - 03/04/2024 1:34 PM EDT [facility] calls to sched felicia for resp fail w hypoxia , chf, hyperlipodemia, admit 03/02 discharge 03/04, pt sched, closing enc documented in this encounterOzarks Medical [id number] NoteProgress Note - Pharmacy Pharmacy to Dose [...] Notes: 03/02: INR therapeutic. Patient follows with [facility] anticoagulation clinic. Will continue home regimentoday. Discharge Recommendations: tbd Do to questionable compliance with amiodarone priort to admission and large jump in INR from yesterday, will dose more conservatively at 2 mg [facility] NoteProgress Note-Physician Assessment/Plan 73-year-old male with [...] Basic Metabolic Panel CBC w/ Auto Diff [facility] Hospital Care/Day Moderate 35 Minutes 78071 2. Acute on chronic heart failure with [...] Basic Metabolic Panel CBC w/ Auto Diff [facility] Hospital Care/Day Moderate 35 Minutes 17083 3. COPD exacerbation (J44.1: Chronic obstructive pulmonary disease with (acute) exacerbation) Mild exacerbation. DuoNebs Ordered: [facility] Hospital Care/Day Moderate 35 Minutes 91929 4. Hypertensive crisis (I16.9: Hypertensive crisis, unspecified) Blood pressure significantly improved. Continue antihypertensives. Will switch IV Lasix to p.o. prior to discharge Ordered: [facility] Hospital Care/Day Moderate 35 Minutes 67350 5. Hyperlipidemia, unspecified, (E78.5: Hyperlipidemia, unspecified)Hyperlipidemia, unspecified [...] and rhythm, normal (more content not included)... 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 / 7958053443 / Confirmed Carotid artery stenosis / 826751161 / Confirmed Charcot's joint of foot due to diabetes / 744023230 / Confirmed Chronic anemia / 935227602 / Confirmed COPD without exacerbation / 013038246 / Confirmed Chronic systolic heart failure / 9615288401 / Confirmed Presence of combination internal cardiac defibrillator (ICD) and pacemaker / 6306408268 / Confirmed Contracture of ankle joint / 585346880 / Confirmed CAD (coronary artery disease) / 59286828 / Confirmed Bipolar I disorder, mild, current or most recent episode depressed, in full (more content not included)...[facility]:Result Comment: Electronically Signed By: Danna BROUSSARD, Felipa\.br\Date and Time Signed: 03/03/24 14:51 [id number] NoteEchocardiology Procedure Exam Date/Time Accession # Ordering Dr. Lott Transthoracic w/ 03/03/2024 12:14 EDT [id number] Aden BROUSSARD, Paul Regalado Contrast CPT code C8929 Reason for Exam (Echo Transthoracic w/ Contrast) Congestive Heart Failure Report [facility] [address] [place] [address] Adult Echocardiogram Report Name: JOSÉ LUIS FAULKNER Study Date: 03/03/2024 11:19 AM BP: 149/69 mmHg Patient Location: [facility] [address] [place] [address] Bed(s) [facility] HR: 55 : 1950 Gender: Male Height: 69.5 in Age: 73 yrs Ethnicity: [employer] Weight: 229 lb Reason For Study: Congestive Heart Failure BSA: 2.2 m2 History: High Cholesterol,HTN,Diabetes,SOB,CAD,Atrial Fibrillation,CABG,CHF,COPD,JASMIN,Stents,Obesi ty Ordering Physician: Aden^Paul^Fabricio Performed By: Daphnie Jimeenz RDCS Interpretation Summary Mild inferior wall hypokinesis [...] Signed by: Felipa Milligan MD Transcribed by: [place] Technologist: Jazzy [facility]09-30-2024 Note Interdisciplinary Note - PT PT evaluation completed with [facility] of = services. Pt mod I with supine<>sit due to use of hand rails. CGA for sit<>stand with FWW due to reports of frequent LOB. Pt ambulated 8ftwith FWW and CGA. Once pt is DC, recommended to the patient and his family for outpatient for Parkinson's treatment to work on balance and fall prevention.[facility]09-30-2024 Note Progress Note - Pharmacy Pharmacy [...] Notes: 03/02: INR therapeutic. Patient follows with [facility] [place] clinic. Will continue home regimentoday. Discharge Recommendations: tbdFkassandra [facility]09-29-2024 NoteConsultation Note Patient: JOSÉ LUIS FAULKNER [...] Daily, # 30 tab(s), Refills(s) 0, Pharmacy: [facility], 172.7, cm, 03/09/23 15:05:00 EDT, Height/Length Dosing, 104.5, kg, 03/09/23 15:05:00 EDT, Weight Dosing Coumadin 4 mg Tab: See Instructions, take 6mg on sunday, take 4m g all other days, # 96 tab(s), Refills(s) 1, Pharmacy: [facility], 172, cm, 10/31/23 14:00:00 EDT, Height/Length Dosing, 101.2, kg, 10/31/23 14:00:00 EDT, Weight Dosing DuoNeb 2.5 mg-0.5 mg/3 mL Soln-Inh: 3 mL, Inhalation, QID, 1 EA, Refill(s) 0, [facility], 172.7, cm, 03/09/23 15:05:00 EDT, Height/Length Dosing, 104.5, kg, 03/09/23 15:05:00 EDT, Weight Dosing alprazolam 0.25 mg Tab: 0.25 mg = 1 tab(s), Oral, TID, PRN anxiety, # 30 tab(s), Refills(s) 2, other reason (Rx) carvedilol 25 mg Tab: 25 mg = 1 tab(s), Oral, BID, # 120 tab(s), Refills(s) 0, Pharmacy: [facility], 172, cm, 07/17/21 14:15:00 EST, Height/Length Dosing, 113, kg, 07/17/21 14:15:00 EST, Weight Dosing cyanocobalamin 1000 mcg/mL Inj: 1,000 mcg = 1 mL, IntraMuscular, qMonth, syringes for B12 injections-3ml, 25 guage 1 inch quantity sufficient for injections., # 10 mL, Refills(s) 1, Pharmacy: [facility], 177, cm, 04/12/23 9:03:00 EST, Height/Length Dosing, 101.6, kg, 11... nebulizer machine: nebulizer machine, See Instructions, 1 EA, 0, please provide machine with supplies, Supply torsemide 20 mg Tab: See Instructions, 1 tab(s) Oral Daily and then addtional 1 tab oral daily as needed for Leg swelling or weight gain of 3 pounds, # 60 tab(s), Refills(s) 0, Pharmacy: [facility], 177, cm, 08/27/23 20:45:00 EDT, Height/Length [...] DR Tab: 40 m (more content not included)...[facility] HospitalComment on above:Result Comment: Electronically Signed By: Raegan BROUSSARD, Feng\.br\Date and Time Signed: 03/02/2416:47 [id number] NoteHistory and Physical Basic Information Admit Date/Time:03/02/2024 09:27 Chief Complaint Patient presents with several days of SOB with hx of COPD. pt recently taken off O2 about 3 weeks ago. Solumedrol [facility] History of Present Illness Mr. Hofmfan presented to the hospital with complaint of [...] 08:19:00) Lymph Auto: 17.8 % (03/02/24 08:19:00) Jasper Auto: 6.9 % (03/02/24 08:19:00) Eos Auto: 1.7 % (03/02/24 08:19:00) Basophil Auto: 0.9 % (03/02/24 08:19:00) Neutro Absolute: 7 E9/L (03/02/24 08:19:00) Lymph Absolute: 1.7 E9/L (03/02/24 08:19:00) Jasper Absolute: 0.7 E9/L (03/02/24 08:19:00) Eos Absolute: [...] Ag: Not Detected ( (more content not included)...[facility] HospitalComment on above:Result Comment: Electronically Signed By: Aden BROUSSARD, Paul Young\Date and Time Signed: 09/29/24 11:49 [id number] NoteHistory and Physical Patient: JOSÉ LUIS FAULKNER [...] stroke: yes 4. Serious co-morbid conditions (recent IL, anemia with Hct <30%, CRI with SCr [...] Daily, # 30 tab(s), Refills(s) 0, Pharmacy: [facility], 172.7, cm, 03/09/23 15:05:00 EDT, Height/Length Dosing, 104.5, kg, 03/09/23 15:05:00 EDT, Weight Dosing Coumadin 4 mg Tab: See Instructions, take 6mg on sunday, take 4m g all other days, # 96 tab(s), Refills(s) 1, Pharmacy: [facility], 172, cm, 10/31/23 14:00:00 EDT, Height/Length Dosing, 101.2, kg, 10/31/23 14:00:00 EDT, Weight Dosing DuoNeb 2.5 mg-0.5 mg/3 mL Soln-Inh: 3 mL, Inhalation, QID, 1 EA, Refill(s) 0, [facility], 172.7, cm, 03/09/23 15:05:00 EDT, Height/Length Dosing, 104.5, kg, 03/09/23 15:05:00 EDT, Weight Dosing alprazolam 0.25 mg Tab: 0.25 mg = 1 tab(s), Oral, TID, PRN anxiety, # 30 tab(s), Refills(s) 2, other reason (Rx) carvedilol 25 mg Tab: 25 mg = 1 tab(s), Oral, BID, # 120 tab(s), Refills(s) 0, Pharmacy: [facility], 172, cm, 07/17/21 14:15:00 EST, Height/Length Dosing, 113, kg, 07/17/21 14:15:00 EST, Weight Dosing cyanocobalamin 1000 mcg/mL Inj: 1,000 mcg = 1 mL, [facility], [facility], syringes for B12 injections-3ml, 25 guage 1 inch quantity sufficient for injections., # 10 mL, Refills(s) 1, Pharmacy: [facility], 177, cm, 04/12/23 9:03:00 EST, Height/Length Dosing, 101.6, kg, 11... doxycycline hyclate 100 mg Tab: 100 mg = 1 tab(s), Oral, BID, Take 1 tablet the day before procedure and 1 tablet after procedure, # 2 tab(s), Refills(s) 0, Pharmacy: [facility], 172, cm, 12/05/23 10:16:00 EDT, Height/Length Dosing, 107.6, kg, 12/05/23 10:16:00 EDT, Weigh... nebulizer machine: nebulizer machine, See Instructions, 1 EA, 0, please provide machine with supplies, Supply torsemide 20 mg Tab: See Instructions, 1 tab(s) Oral Daily and then addtional 1 tab oral daily as needed for Leg swelling or weight gain of 3 pounds, # 60 tab(s), Refills(s) 0, Pharmacy: [facility], 177, cm, 08/27/23 20:45:00 [...] Oral, BID, Dr. Read (more content not included)...[facility] HospitalComment on above:Result Comment: Electronically Signed By: Frank Wells.ricardo\Date and Time Signed: 02/22/24 14:04 [id number] Hospital Discharge instructions Patient Education 02/05/2024 11:34:36 [...] Up Care 12/11/2023 11:19:44 With:Andi WARE Address: [address] [place] [address] [facility] (1) When: Unknown Comments:Office will call to schedule follow up [facility] 09-03-2024 NotePatient Education Custom Cystoscopy ? Voiding [...] if you have a fever over 100 degrees.[facility] 01-29-2024 NoteDuplicate appointment AUTHENTICATED BY YE LOBO, ON 01/29/2024 11:40:26[facility] 01-29-2024 History of Present illness Narrative* Ye Lobo MD - 01/29/2024 11:39 AM EDT Duplicate appointment documented in this [id number] NoteVideo Visit [facility] [id number] Video Visit [facility] 01/29/2024 Ye Lobo MD Provider Location: [facility] Patient Location Computer Language Coder: None Patient Location: Patient's Home Patient: José [...] there are inherent diagnostic limitations compared to doym-cf-ncfc evaluations. We elected to proceed with the [...] MD AUTHENTICATED BY YE LOBO ON 01/29/2024 11:45:[facility] 01-29-2024 History of Present illness Narrative* Ye Lobo MD - 01/29/2024 11:31 AM EDT Video Visit [facility] [id number] Video Visit [facility] 01/29/2024 Ye Lobo MD Provider Location: [facility] Patient Location Computer Language Coder: None Patient Location: Patient's Home Patient: José [...] there are inherent diagnostic limitations compared to tbtd-xv-lany evaluations. We elected to proceed with the [...] None Ye Lobo MD documented in this [id number] Hospital Discharge instructions Follow Up Care 12/05/2023 10:49:04 With:Caterina BROUSSARD, Nicolás Chavez, PUL, AYAH Address: [address] [place] [address] Pulmonary Clinic (Heart & Vascular) [place] [address]- When: Unknown Comments:after his testing is completed [facility] 05-28-2024 NoteBEHAVIORAL HEALTH PSYCHIATRIC PROGRESS NOTE Patient [...] MD AUTHENTICATED BY YE LOBO, ON 10/30[facility] History of Present illness Narrative* [...] None Ye Lobo MD documented in this [id number] Hospital Discharge instructions Follow Up Care 10/25/2023 09:24:55 With:Caterina BROUSSARD, Nicolás Chavez, PUL, AYAH Address: [address] [place] [address] Pulmonary Clinic (Heart [facility] Vascular) [place] [address]- When: Unknown Comments:after his testing is completed [facility]05-15-2024 History of Present illness Narrative* Felipa Milligan MD - 10/17/2023 10:40 AM EDT Subjective José Luis Gil is a 72 y.o. male Chief Complaint Follow-up HPI Patient is in the office for follow-up for the problems noted below. He has had no cardiac events since his last visit but was admitted to [facility] in August 2023 for symptoms of [...] Atherosclerosis of coronary artery bypass graft of [place] heart without angina pectoris Follow Up In [...] 2 diabetes mellitus without complication, unspecified whether rn long term care insulin use (Multi) 12. Class 1 obesity [...] exam, discussion and plan. documented in this encounterW[facility] Center Work Phone: 1(988) 168-284405-15-2024 Instructions* Patient Instructions* Maria Del Carmen Campbell [...] at night INR 5 days later at [facility] Start coumadin 2 days before running out of Eliquis. Follow up 6 months BMI was above normal measurement. Current weight: 102 kg (225 lb) Weight change since last visit (-) denotes wt loss -6.2 lbs Weight loss needed to achieve BMI 25: 51.1 Lbs Weight loss needed to achieve BMI 30: 16.4 Lbs Provided instructions on dietary changes. documented in this encounterWexner Medical Center Work Phone: 1(590) 378-381104-04-2024 [facility] Evaluation + Plan noteExtracted from: Title:Discharge [...] Felipa Milligan Within 2 to 4 weeks [facility] [address] [place] [address]- Business (1) Additional Instructions: Call for followup appointment Mona Baker Within 5 to 7 days [address] [place] [address]- Business (1) Additional Instructions: Call for followup [...] Ordered: Hospital Discharge Day > 30 Min 61463 2. Dyspnea (R06.00: Dyspnea, unspecified) Related to generalized weakness. Resolved. Ordered: Hospital Discharge Day > 30 Min 23060 3. Hypertension (I10: Essential (primary) hypertension) Blood pressure well-controlled. Continue on Coreg, isosorbide. Enalapril on hold.-May resume at discharge. Ordered: Hospital Discharge Day > 30 Min 46942 4. PAF (paroxysmal atrial fibrillation) (I48.0: Paroxysmal atrial fibrillation) Rate controlled. Continue on amiodarone, Coreg and Eliquis. Ordered: 5. Chronic systolic heart failure (I50.22: Chronic systolic (congestive) heart failure) Clinically stable. Continue on isosorbide. May resume Aldactone and Bumex at discharge. Ordered: Hospital Discharge Day > 30 Min 78824 6. CAD (coronary artery disease) (I25.10: Atherosclerotic heart disease of [place] coronary artery without angina pectoris) Status post [...] deep vein thrombosis (DVT) prophylaxis (Z79.899: Other longterm (current) drug therapy) Eliquis. Disposition: Home today. [...] with IV fluid. Renal ultrasound pending. Ordered: [facility] Hospital Care/Day Moderate 35 Minutes 82754 2. Dyspnea (R06.00: Dyspnea, unspecified) Related to generalized weakness. Improved. Ordered: [facility] Hospital Care/Day Moderate 35 Minutes 82055 3. Hypertension (I10: Essential (primary) hypertension) Blood pressure well-controlled. Continue on Coreg, isosorbide. Enalapril on hold. Ordered: [facility] Hospital Care/Day Moderate 35 Minutes 96914 4. PAF (paroxysmal atrial fibrillation) (I48.0: Paroxysmal atrial fibrillation) Rate controlled. Continue on amiodarone, Coreg and Eliquis. Ordered: [facility] Hospital Care/Day Moderate 35 Minutes 93881 5. Chronic systolic heart failure (I50.22: Chronic systolic (congestive) heart failure) Clinically dry. Continue on isosorbide. Aldactone on hold. Bumex on hold. [facility] Care/Day Moderate 35 Minutes 21692 6. CAD (coronary artery disease) (I25.10: Atherosclerotic heart disease of [place] coronary artery without angina pectoris) Status post [...] deep vein thrombosis (DVT) prophylaxis (Z79.899: Other rn long term care (current) drug therapy) Eliquis. Disposition: Hopefully home in a.m after adequate hydration and improvement in renal functions. I discussed the diagnosis and plan of care with the patient at the bedside. Moderate level of MDM based on addressing above issues. This documentation was transcribed using voice recognition software. Several attempts were made to ensure accuracy. However inadvertent computerized pusher operator errors may be present. Olaf Sinclair. [...] artery disease) (I25.10: Atherosclerotic heart disease of [place] coronary artery without angina pectoris) With hx [...] Therapy PT & PTT Rapid COVID Antigen ([facility]) Saline Lock Insert Troponin 0 Hr. Troponin 3 Hr. Troponin 6 Hr. Troponin 9 Hr. XR Chest Single View Future Appointments Appointment Date:10/11/2023 02:15:00 PM Scheduled Provider:Armani Yarbrough DO Location:[facility].ONCOLOGY Appointment Type:ONC Office Visit 30 (FT) Appointment Date:10/22/2023 10:30:00 AM Scheduled Provider:[facility]SSARD, [facility] Appointment Type:Pulmonary Follow Up (FT) [...] 04/09/23 * MRI Brain w/o Contrast 03/15/23 [facility]03-27-2024 Hospital Discharge instructions Patient Education 08/29/2023 [...] follow-up visits. This is important. Medicines Take iwns-nvd-hhgtcdv and prescription medicines only as told by [...] provider. Document Revised: 03/28/2022 Document Reviewed: 03/28/2022 [employer] Patient Education 2022 [employer]. 08/29/2023 11:38:50 Acute Kidney Injury, Adult Acute [...] Follow these instructions at home: Medicines Take ldfx-bby-qiupzhh and prescription medicines only as told by [...] follow-up visits. Where to find more information [place] Association of Kidney Patients: www.aakp.org National Kidney Foundation: www.kidney.org [place] Kidney Fund: www.akfinc.org Medical Education [place]: ?LifeOptions: www.lifeoptions.org ?Kidney School: www.kidneyschool.org Contact a health care provider if: Your symptoms get worse. You have new symptoms such as: ?Headaches. ?Skin that is darker or silviculture forester than normal. ?Easy bruising. ?Itchiness. ?Hiccups. ?Lack [...] provider. Document Revised: 08/28/2022 Document Reviewed: 03/30/2020 [employer] Patient Education 2022 [employer]. Follow Up Care 08/27/2023 20:36:44 With:Felipa Milligan Address: [facility] [place] [address], [address] [place] [address]- Business (1) When:2 to 4 weeks Comments:Call for followup appointment With:Mona Baker Address: [place] [address]- Business (1) When:5 to 7 days Comments:Call for followup appointment [facility]03-27-2024 NoteAdmission and Discharge Information Admit Date/Time:08/27/2023 23:00 [...] generalized weakness. He was subsequently admitted to [facility] with acute kidney injury on chronic [...] primary care physician as well as the lining caser. Discharge time: 32 minutes. I spent 32 [...] BID cyanocobalamin 1000 mcg/mL (more content not included)...[facility]:Result Comment: Electronically Signed By: JOSE BROUSSARD, Mbanefo\.br\Date and Time Signed: 08/29/23 13:22 [id number] NotePT Evaluation completed with an AMPAC score of 20/24. Pt was able to perform bed mobility with Mod I and transfers with SBA. Pt did ambulate 44 ft with FWW with decreased step/stride length. No LOB observed. Would recommend PT HH services to follow, but pt denies needing any further PT services at discharge. Will follow daily [facility]03-26-2024 NoteBasic Information Admit Date/Time:08/27/2023 23:12 Chief [...] eye contact Lab Results WBC: 8.1 E9/L (08/27/23 21:08:00) RBC: 3.9 E12/L Low (08/27/23 21:08:00) HGB: 10.9 gm/dL Low (08/27/23 21:08:00) Hct: 33.3 % Low (08/27/23:08:00) MCV: 86.4 fL (08/27/23:08:00) MCH: 28.2 pg (08/27/23:08:00) MCHC: 32.6 gm/dL (08/27/23:08:00) RDW: 16.5 % High (08/27/23:08:00) Platelet: 274 E9/L (08/27/23:08:00) MPV: 7.1 fL (08/27/23:08:00) Neutro Auto: 63.7 % (08/27/23:08:00) Lymph Auto: 23.6 % (08/27/23:08:) Jasper Auto: 7.7 % (08/27/2308:) Eos Auto: 3.6 % (08/27/2308:) Basophil Auto: 1.4 % (08/27/23:08:) Neutro Absolute: 5.2 E9/L (08/27/23:08:) Lymph Absolute: 1.9 E9/L (08/27/23:08:00) Jasper Absolute: 0.6 E9/L (08/27/23:08:) Eos Absolute: 0.3 E9/L (08/27/23:08:) Basophil Absolute: 0.1 E9/L (08/27/23:08:) PT: 15.5 second(s) High (08/27/23:08:00) INR: 1.38 (08/27/23:08:) PTT: 39.2 second(s) High (08/27/23:08:00) Glucose Lvl: 182 mg/dL (08/27/23:08:00) BUN: 55 mg/dL High (08/27/23:08:00) Creatinine: 2.5 mg/dL High (08/27/23:08:00) eGFR: 26 mL/min/1.73 m2 Low (08/27/23:08:00) BUN/Creat Ratio: 22 High (08/27/23:08:00) Sodium Lvl: 137 mmol/L (08/27/23:08:00) Potassium Lvl: 4.9 mmol/L (08/27/23:08:00) Chloride: 103 mmol/L (08/27/23:08:00) CO2: 21 mmol/L (08/27/23:08:00) AGAP: 18 mEq/L High (08/27/23 21:08:00) Calcium Lvl: 8.5 mg/dL Low (08/27/23:08:00) Magnesium: 2.3 mg/dL (08/27/23:08:00) Troponin: 17.3 pg/mL (08/28/23 02:36:00) BNP: 79 pg/mL (08/27/23:08:00) Influenzae A Ag: NEGATIVE1 (08/27/23 21:02:00) Influenzae B Ag: NEGATIVE1 (08/27/23 21:02:00) Rapid COVID Ag: Not Detected (08/27/23 21:02:00) [...] PAF (paroxysmal atrial fibrillati (more content not included)...[facility]:Result Comment: Electronically Signed By: Rosi Mendez MD\.ricardo\Date and Time Signed: 08/28/23 04:56 [id number] Hospital Discharge instructions Patient Education 07/17/2023 09:56:47 [...] Address: [facility] [address], [place] [address] Business (1) When: Unknown Comments:Office will call to schedule follow up [facility]02-13-2024 Note [id number]20[facility] NoteCustom Cystoscopy ? Voiding after [...] if you have a fever over 100 degrees.[facility] 07-16-2023 Evaluation note* Encounter Date Diagnosis [...] quite some time. With the change of glassware engraver thought worthwhile checking. Told patient to hold off on imodium while this test is going to be done. [employer] Other [id number] Hospital Discharge instructions Follow Up Care 04/12/2023 09:57:26 With:Armani Yarbrough DO, ONC Address: [facility] [place] [address]- [phone] Fax Business (1) When: Unknown Comments:plan iv iron. 2 or 3 doses.f/u in 1 year.epo cbc, cmp iron studies every three months. [facility]11-01-2023 History of Present illness Narrative* Felipa [...] Atherosclerosis of coronary artery bypass graft of [place] heart without angina pectoris Follow Up In [...] Obstructive sleep apnea, adult documented in this encounterW[facility] Center Work Phone: 1(211) 639-439111-01-2023 Instructions* Patient Instructions* Maria Del Carmen Campbell [...] Follow up 6 months documented in this encounterWexner [facility] Center Work Phone: [phone] 155-172610-27-2023 Hospital Discharge instructions Follow Up Care 03/30/2023 14:59:20 With:Armani Yarbrough Address: [facility] [address] [place] [address]- [phone] Fax Business (1) When: Unknown Comments:iron studies epo. retic count, spep sflc, simmunfIXATION, mma in 3 months. f/u in 6 months cbc, cmp, iron studies prior . start iron every other day orally. b12 shot monthly, can be at home. [facility]10-25-2023 Evaluation note* Encounter Date Diagnosis Assessment Notes Treatment Notes Treatment Clinical Notes Mar, Osteomyelitis of ankle and foot (ICD-10 - M86.9) [employer] Other 10-23-2023 History of Present illness Narrative* Jackie Mcginnis MD - 03/26/2023 1:30 PM EDT Subjective José Luis Gil is a right handed 72 y.o. year old male who presents with Parkinson's Disease. Patient is accompanied by: child daughter Visit type: follow up visit HPI Since last visit he was admitted to [facility] for CHF, during that time had an episode of transient L side of weakness/numbness. He has CT scan as well as CTA and carotid ultrasounds etc. He is due to have an MRI of the brain. He is on Asa 81 mg daily. He has now been seeing a Pneumatic Riveter as well. Prior hx: R handed male [...] 3. Please send records from the memory test/analysis consultant. 4. RTC in 6 months documented in this encounterWexner Medical Center Work Phone: 1(523) 694-712310-23-2023 Instructions* Patient Instructions* Jackie Mcginnis MD - 03/26/2023 1:30 PM EDT It was nice to see you today. Plan: Continue current dose of carbidopa/levodopa 25/100 - one and half tab 4 times a day Try to exercise as much as you can Please send records from the memory test/analysis consultant. RTC in 6 months documented in this encounterWexner Medical Center Work Phone: [phone]) 754-389910-17-2023 History of Present illness Narrative* MONO Donaldson [...] Diet Healthy Nutrition for Older Adults - [facility] Injury Prevention/Home Safety Summ Home Safety Checklist [facility] Mobility for Adults Falls Prevention Conversation Guide for Caregivers Medications Medication Safety/Dispensers Sleep Getting a Good Night's Sleep ([facility]) Sleep Hygiene Personal Care Personal Care Tips Bathing Tips * BALTAZAR Bae CNP - 03/20/2023 8:45 AM EDT [facility] [address] [facility] [address] Dept: [phone] Dept Loc: [phone] Visit type: [facility] Family Summary Conference Patient was [...] [facility] If the patient is a minor, permission [...] following means: Alzheimer's Association support and Lenin chandler Reviewed advanced care plan. Already has POAs [...] loss x 3-4 years, previous dementia diagnosis, [facility] 19 (MIS 10), CDT 5, PHQ 1. [...] in the evening. Take with meals. Coenzyme V62-Yboaqru E (CoQ10 ST-100) 100-100 MG-UNIT capsule Take [...] History: Diagnosis Date LAWANDA (acute kidney injury) ([facility]) Allergies Anemia Anxiety Arthritis Asthma Atrial fibrillation [...] found for: FOLATE No results found for: [id number] No results found for: RPR Imaging: head [...] care for the patient documented in this [facility]10-10-2023 Hospital Discharge instructions Follow Up Care 03/13/2023 15:59:25 With:Caterina BROUSSARD, Nicolás Chavez, KINSEY, AYAH Address: When:6 months [facility]09-19-2023 History of Present illness Narrative* Kassandra Basurto, MINE ENGINEERING MANAGER - 02/20/2023 1:45 PM EDT Senior Services/Geriatrics [...] of education: college 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 Activities: rides scooter outside, visits grandson/family, watches tv/movies/sports, goes to car shows with cousin Exercise: none Finances: has adequate savings, gets Social Security income, intermediate Healthcare Power of Asic Verification Engineer: Yes: spouse- Alicia, then daughter Zackary Financial Power of Asic Verification Engineer: Yes: spouse- Alicia, then daughter Zackary Living [...] Diet Healthy Nutrition for Older Adults - [facility] Injury Prevention/Home Safety [facility] Home Safety Checklist [facility] Mobility for Adults Falls Prevention Conversation Guide for Caregivers Medications Medication Safety/Dispensers Sleep Getting a Good Night's Sleep ([facility]) Sleep Hygiene Personal Care Personal Care Tips Bathing Tips * Keisha Brambila APRN - ABBY - 02/20/2023 1:45 PM EDT Images from the original note were not included. [facility] [address] [place] [address] Dept: [phone] Dept Loc: [phone] Visit type: [facility] Initial Assessment Visit Date: 02/21/2023 Reason for Visit: Memory Loss Assessment and Plan 1. Memory loss - CBC - Comprehensive metabolic panel - Vitamin B12 - Folate - TSH - CT head wo IV contrast 2. Parkinsonism, unspecified Parkinsonism type 3. Bipolar disorder, in partial remission, most recent episode mixed (CMS/HCC) ([facility]) 4. Polypharmacy - Mental status change [...] burden. Will discuss in more detail at [facility] with pt and family. Follow up in about 4 weeks (around 03/20/2023) for virtual summary visit. Subjective HPI: José Luis Faulkner is a 72 y.o. male who presents to the [facility] for a comprehensive geriatric assessment. [...] (MSSA), CHF, urinary retention, previous LAWANDA, h/o [place], bladder cancer- stage 0, chronic diarrhea Pt [...] was referred to a stroke doctor in [place] but doesn't want to go history of [...] President? Biden Why were we wearing masks? COVID Reviewed progress notes completed by DOUGLAS (SAMANTHA)and [...] in the evening. Take with meals. Coenzyme D99-Lnyscnr E (CoQ10 ST-100) 100-100 MG-UNIT capsule Take [...] History: Diagnosis Date LAWANDA (acute kidney injury) ([facility]) ([facility]) Allergies Anemia Anxiety Arthritis Asthma Atrial fibrillation and flutter ([facility]) Bipolar 1 disorder ([facility]) Bladder cancer ([facility]) CHF (congestive heart failure) ([facility]) (HCC) COPD (chronic obstructive pulmonary disease) (HCC) Coronary artery disease Dementia (HCC) Diabetes mellitus (HCC) Diarrhea GERD (gastroesophageal reflux disease) Hyperlipemia Hypertension Hypothyroidism Old myocardial infarction Osteoarthritis Osteomyelitis (HCC) Parkinson's disease ([facility]) Urinary retention Social History Tobacco Use Smoking [...] found for: FOLATE No results found for: XSOMQWFH69 No results found for: RPR Testing: The [...] appropriate exam and/or evaluation documented in this [facility]09-19-2023 Instructions* Patient Instructions* BALTAZAR Bae CNP [...] via phone or MyChart. documented in this [facility]09-15-2023 Telephone encounter Note* Telephone Encounter - Ida Mosher - 02/16/2023 5:18 PM EDT Scheduled 02/20/2023. [id number] Miscellaneous Notes* Telephone Encounter - Ida Mosher - 02/16/2023 5:18 PM EDT Scheduled 02/20/2023. * Telephone Encounter - Michelle Blackmon - 02/15/2023 11:35 AM EDT Name of Caller: Zackary Contact Reason for Appointment: New Patient Office Name: Senior Services Medication Refills need, if any: na Medication Name: Na documented in this encounterSSelect Medical [facility] Rehabilitation [id number] Telephone encounter Note* Telephone Encounter - Michelle Blackmon - 02/15/2023 11:35 AM EDT Name of Caller: Zackary Contact Reason for Appointment: New Patient Office Name: Senior Services Medication Refills need, if any: na Medication Name: Na [id number] Hospital Discharge instructions Patient Education 01/16/2023 10:37:42 [...] the nearest emergency room or call 911 [facility] you may resume your normal diet. Activity you may resume your normal activities Call if you have a fever over 100 degrees. Follow Up Care 01/01/2023 13:32:34 With:Andi WARE Address: [facility] [address] [place] [address]- Business (1) When: Unknown Comments:Office will call to schedule follow up [facility]08-14-2023 Evaluation note* Encounter Date Diagnosis Assessment Notes Treatment Notes Treatment Clinical Notes Jan, Osteomyelitis of ankle and foot (ICD-10 - M86.9) Once daily amoxicillin refilled. Probiotic refilled. No changes. Doing well clinically. Jan, Charcot foot due to diabetes mellitus (ICD-10 - E11.610) Jan, Chronic antibiotic suppression (ICD-10 - Z79.2) [employer] Other 05-30-2023 Hospital Discharge instructions Patient Education [...] Address: [facility] [address] [place] [address]- Business (1) When:01/31/2023 11:00:22 Comments:For next cystoscopy in 3 months [facility]04-20-2023 Hospital Discharge instructions Patient Education 09/21/2022 [...] if anything looks unusual. Men with a ieafmi-xtay-eotjaa risk for skin cancer may want to see a skin former (mri technician) for an annual body check. What are the benefits of screening? Cancer screening is done to look for cancer in the very early stages, before it spreads and becomesharder to treat and before you would start to notice symptoms. Finding cancer early improves the chances of successful treatment. It may save your life. Where to find more information [place] Cancer [employer]: www.cancer.org Centers for Disease Control and Prevention: www.cdc.gov National Cancer [place]: www.cancer.gov Contact a health care provider if: [...] provider. Document Revised: 10/17/2021 Document Reviewed: 04/16/2020 [employer] Patient Education 2022 [employer]. Follow Up Care 08/23/2022 10:38:51 With:MIGUELINA BROUSSARD, Andi Caputo, URL Address: [facility] [address] [place] [address]- When: Unknown [facility] 03-22-2023 Hospital Discharge instructions Patient Education [...] pressure to the area. General instructions Take jiwg-xfu-pszvdqh and prescription medicines only as told by [...] and water are not available, use hand nuclear security officer. ?Ask when you should remove your dressing. [...] Paraphimosis needs to be treated rightaway. Take apij-aev-otrvcbe and prescription medicines only as told by [...] 03/18/2010 Document Revised: 10/30/2018 Document Reviewed: 10/30/2018 [employer] Patient Education 2020 [employer]. Follow Up Care 08/16/2022 14:04:38 With:MIGUELINA BROUSSARD, Andi Caputo, URL Address: [facility] [address] [place] [address]- [phone] When:09/23/2022 [facility] 03-15-2023 Hospital Discharge instructions Patient Education 08/16/2022 [...] pressure to the area. General instructions Take efer-ecr-ccvhgzb and prescription medicines only as told by [...] and water are not available, use hand nuclear security officer. ?Ask when you should remove your dressing. [...] Paraphimosis needs to be treated rightaway. Take ddzz-qao-eidovtq and prescription medicines only as told by [...] 03/18/2010 Document Revised: 10/30/2018 Document Reviewed: 10/30/2018 [employer] Patient Education 2020 [employer]. Follow Up Care 08/09/2022 16:13:36 With:MIGUELINA BROUSSARD, Andi Caputo, URL Address: [facility] [address] , [place] [address]- When: Unknown [facility] [place] 03-08-2023 Hospital Discharge instructions Patient Education 08/09/2022 [...] if anything looks unusual. Men with a ikdizp-gehp-xhfhah risk for skin cancer may want to see a skin former (mri technician) for an annual body check. Where to find more information National Cancer [place]: https://www.cancer.gov/about-cancer/screening Centers for Disease Control and Prevention: https://www.cdc.gov/cancer/dcpc/prevention/screening.htm [place] [employer]: https://www.cancer.org/latest-news/8-vqdzlf-juonpzeuj-nzfkp-uzy-clb.html Contact a health care provider if: You [...] 02/15/2017 Document Revised: 02/07/2019 Document Reviewed: 02/15/2017 [employer] Patient Education 2020 [employer]. Follow Up Care 08/09/2022 14:31:53 With:MIGUELINA BROUSSARD, Andi Caputo, URL Address: [facility] [address] , [place] [address]- When: Unknown [facility] 03-01-2023 History of Present illness Narrative* Venkatesh [...] see his psychiatrist Dr. Tejas Massey in [place]. * Denies slowness of movements and states [...] due to side effect of urinary retention [facility] Work Phone: 1(846) 937-968902-13-2023 Evaluation note* Encounter Date Diagnosis Assessment Notes Treatment Notes Treatment Clinical Notes Jul, Osteomyelitis of ankle and foot (ICD-10 - M86.9) Decrease Amoxicillin to once daily dosing now. Maintain this dose as his new dose. Jul, Charcot foot due to diabetes mellitus (ICD-10 - E11.610) Jul, Chronic antibiotic suppression (ICD-10 - Z79.2) [employer] Other 2022 Hospital Discharge instructions Patient Education [...] 05/18/2001 Document Revised: 11/04/2018 Document Reviewed: 11/04/2018 [employer] Patient Education 2020 [employer]. Follow Up Care 05/17/2022 11:48:41 With:MIGUELINA BROUSSARD, Andi Caputo, URL Address: [address] [place] [address]- When: Unknown [facility] 12-11-2022 Discharge summary Author Janusz Davidson [facility] May 14, 2022 3:11pm Note Date/Time May 14, 2022 3:11pm [facility] [address] [place] [address] Discharge Summary Signed Patient: José Luis Faulkner MR #: [id number] : 1950 Acct:[id number] Age/Sex: 71 / M Adm Date: 2 Loc: Room: [address] [place] [address]: Janusz Davidson DO Copies to: [...] % (Auto) 70.9, Lymph % (Auto) 18.1, Jasper % (Auto) 7.4, Eos % (Auto) 2.5, Baso % (Auto) 1.1, Nucleat RBC Rel Count 0.1, Neut # (Auto) 4.7, Lymph # (Auto) 1.2, Jasper # (Auto) 0.5, Eos # (Auto) 0.2, [...] administer with meals fluticasone propionate 50 mcg/actuation Hayward,Suspension 2 spray INTRANASAL DAILY PRN (Reason: Unknown) [...] <Electronically signed by Janusz Davidson DO> 05/14/22 9031 [facility] Work Phone: 1(898) 459-603012-11-2022 Progress note Author Bill Mcgee [facility] May 14, 2022 11:29am Note Date/Time May 14, 2022 11:29am [facility] [address] [place] [address] Gastroenterology PN Signed Patient: José Luis Faulkner MR #: [id number] : 1950 Acct:[id number] Age/Sex: 71 / M Adm Date: 2 Loc: 4 Room: [id number] Type: ADM INOo Attending Dr: Janusz Davidson DO Copies to: MD Mona Barakat MD, ~ Date of Service: 05/14/2022 Subjective Subjective Narrative: [...] Propionate 2 spray 05/12/22 13:26 Fluticasone Propionate Hayward 120 Hayward/16 Gm Bottle INTRANASAL 05/12/23 13:25 DAILY PRN [...] 20:59 20 units BID MELANIE Administration Ipratropium [place] 0.5 mg 05/12/22 16:00 05/14/22 08:22 Ipratropium [place] 0.5 Mg/2.5 Ml Vial.Neb INHALATION 05/12/23 15:59 [...] pending discharge. Documented By: Bill Mcgee MD 05/14/22 1126 Signed By: <Electronically signed by Bill Mcgee MD> 05/14/22 1129 [facility] Work Phone: 1(326) 838-449612-10-2022 Progress note Author Janusz Davidson [facility] May 13, 2022 5:57pm Note Date/Time May 13, 2022 5:57pm [facility] [address] [place] [address] Hospitalist Progress Note Signed Patient: José Luis Faulkner MR #: [id number] : 1950 Acct:[id number] Age/Sex: 71 / M Adm Date: 2 Loc: Room: [address] [place] [address] Type: ADM INOo Attending Dr: Janusz Davidson [...] Propionate 2 spray 05/12/22 13:26 Fluticasone Propionate Hayward 120 Hayward/16 Gm Bottle INTRANASAL 05/12/23 13:25 DAILY PRN Unknown Furosemide 40 mg 05/13/22 18:45 Furosemide 40 Mg/4 Ml Vial IV-PUSH 05/13/23 18:44 BID@0800,1600 [facility] Magnesium Sulfate 2 gm in 50 mls @ 25 mls/hr 05/12/22 13:30 Magnesium Sulf 2gm-*Swfi* IV 05/12/23 13:29 DAILY PRN Magnesium < 1.6 Insulin Human NPH 20 units 05/12/22 21:00 05/13/22 08:26 Insulin Nph Human Isophane 300 Units/3 Ml Insuln.Pen SUBCUT 05/12/23 20:59 20 units BID MELANIE Administration Ipratropium [place] 0.5 mg 05/12/22 16:00 05/13/22 16:17 Ipratropium [place] 0.5 Mg/2.5 Ml Vial.Neb INHALATION 05/12/23 15:59 [...] <Electronically signed by Janusz Davidson DO> 05/13/22 1757 [facility] Work Phone: [phone]) 972-835312-09-2022 History and physical note Author Janusz Davidson [facility] May 12, 2022 8:50pm Note Date/Time May 12, 2022 8 :50pm [facility] [address] [place] [address] Hospitalist H&P Signed Patient: José Luis Faulkner MR #: [id number] : 1950 Acct:[id number] Age/Sex: 71 / M Adm Date: 2 Loc: Room: [address] [place] [address] Type: ADM IN Attending Dr: Janusz Davidson [...] negative unless noted below or in HPI [facility] Vaccinated for COVID-19?: Yes Medical History (Updated [...] spouse stay in in- law suite at [facility] home Meds Medications and Allergies Allergies No [...] PO BID diabetes 02/24/21 [History Confirmed 05/12/22] iesenpvviztu-err-vjuax acid-vit K-lycop 400 mcg-20 mcg-370 mcg tablet [...] % (Auto) 15.3 % (.) 05/12/22 11:45 Jasper % (Auto) 5.6 % (.) 05/12/22 11:45 Eos % (Auto) 2.4 % (.) 05/12/22 11:45 Baso % (Auto) 1.0 % (.) 05/12/22 11:45 Nucleat RBC Rel Count 0.0 /100 WBC (0-0.5) 05/12/22 11:45 Neut # (Auto) 6.1 x10E3/uL (1.8-7.7) 05/12/22 11:45 Lymph # (Auto) 1.2 x10E3/uL (1.00-4.8) 05/12/22 11:45 Jasper # (Auto) 0.4 x10E3/uL (0.0-0.8) 05/12/22 11:45 [...] <Electronically signed by Janusz Davidson DO> 05/12/222049 [facility] Work Phone: 1(487) 562-923412-09-2022 Consult note Author Bill Mcgee [facility] May 12, 2022 3:53pm Note Date/Time May 12, 2022 3 :46pm [facility] [address] [place] [address] Gastroenterology Consult Note Signed Patient: José Luis Faulkner MR #: [id number] : 1950 Acct:[id number] Age/Sex: 71 / M Adm Date: 2 Loc: 4N Room: [address] [place] [address] Type: ADM IN Attending Dr: Janusz Davidson [...] approximately 24 hours and he went to [facility]. He was placedin observation there and [...] surgery, left h/o Charcot Stented coronary artery 2017 Family History Mother HTN (hypertension) Hyperlipidemia Colon cancer Father Prostate cancer Social History Smoking Status: Former smoker Tobacco Type: cigarettes Substance Use Type: None Social History Comments: Patient and spouse stay in in- law suite at [facility] home Meds Medications and Allergies Allergies No [...] PO BID diabetes 02/24/21 [History Confirmed 05/12/22] wejnjvzpolkl-bvv-ltzej acid-vit K-lycop 400 mcg-20 mcg-370 mcg tablet [...] % (Auto) 75.7 Lymph % (Auto) 15.3 Jasper % (Auto) 5.6 Eos % (Auto) 2.4 Baso % (Auto) 1.0 Nucleat RBC Rel Count 0.0 Neut # (Auto) 6.1 Lymph # (Auto) 1.2 Jasper # (Auto) 0.4 Eos # (Auto) 0.2 [...] MPV Neut % (Auto) Lymph % (Auto) Jasper % (Auto) Eos % (Auto) Baso % (Auto) Nucleat RBC Rel Count Neut # (Auto) Lymph # (Auto) Jasper # (Auto) Eos # (Auto) Baso # [...] <Electronically signed by Bill Mcgee MD> 05/12/22 1553 [facility] Work Phone: 1(590) 109-872711-30-2022 NotePROCEDURE: XR FOOT LT MIN 3 VIEWS [...] Electronically authenticated by: TERRY SHETTY Date: 2022-05-03 07:09[facility]10-20-2022 Evaluation + Plan note Future Scheduled Tests Laboratory* PSA Total 03/23/22 [facility]10-20-2022 Hospital Discharge instructions Patient Education 03/23/2022 [...] have oneof these risk factors: ?Being of -[place] descent. ?Having a family history of prostate [...] you: Are older than age 55. Are -[place]. Have a father, brother, or uncle who [...] 03/01/2018 Document Revised: 05/03/2018 Document Reviewed: 03/01/2018 Elsevier Patient Education 2020 [employer] [facility] 10-14-2022 Hospital Discharge instructions Follow Up Care 03/17/2022 12:37:20 With:Caterina BROUSSARD, Basem G., PUL, AYAH Address: When:6 months [facility]10-07-2022 NotePROCEDURE: XR FOOT LT MIN 3 [...] Electronically authenticated by: ENOC BACA Date: 2022-03-10 10:54[facility]10-06-2022 Hospital Discharge instructions Patient Education 03/09/2022 15:32:50 Acute Urinary Retention, Male, Xknv-sh-Tiic Acute Urinary Retention, Male Acute urinary retention means that you cannot pee (urinate) at all, or that you pee too little and your bladder is not emptied completely. If it is not treated, it can lead to kidney damage or other serious problems. Follow these instructions at home: Take blec-xfy-msfstvb and prescription medicines only as told by [...] 11/06/2008 Document Revised: 08/07/2019 Document Reviewed: 06/22/2017 [employer] Patient Education 2020 [employer]. 03/09/2022 15:32:45 Paraphimosis Paraphimosis Paraphimosis is a [...] pressure to the area. General instructions Take qdsi-sld-zhigpep and prescription medicines only as told by [...] and water are not available, use hand nuclear security officer. ?Ask when you should remove your dressing. [...] Paraphimosis needs to be treated rightaway. Take wknb-xes-fymhgck and prescription medicines only as told by [...] 03/18/2010 Document Revised: 10/30/2018 Document Reviewed: 10/30/2018 [employer] Patient Education 2020 [employer]. Follow Up Care 02/08/2022 09:36:02 With:Yeimy LAU, Deshawn Monroy, URL Address:Unknown When: Unknown [facility] 09-10-2022 Evaluation + Plan noteExtracted from: Title:Discharge Note Author:MOIRA BROUSSARD, James Justen e:02/11/22 Discharge To, Anticipated II - Snf Unit Discharged to - Home with family [...] ELVER Wood Within 2 to [address] [address]- Additional Instructions: Parkinson's Disease Acute Urinary [...] Urinary retention. 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 Cannot have MRI studies here because [...] everything else going on we will consider P 3 ARMAMENT/ORDNANCE IMA TECHNICIAN causes such as brain pathology or thoracic [...] Title:Admission H & P Author:Gissel HINDS DO María Date:02/08/22 1. Weakness (R53.1: Weakness ) Unclear [...] Extracted from: Title:ED Note Author:Prieto Castro PA-C e:02/08/22 Parkinsons (G20: Parkinson's disease) Urinary retention [...] Tests Radiology* XR Chest 2 Views 02/15/22 [facility]09-10-2022 Hospital Discharge instructions Patient Education 02/11/2022 [...] responds to medicines differently. Your response may loom changer time. Work with your health care provider to find the best medicines for you. Speech, occupational, and physical therapy. Deep brain stimulation surgery to reduce tremors and other involuntary movements. Follow these instructions at home: Medicines Take ihkp-ajv-jtyuhgx and prescription medicines only as told by [...] 05/18/2001 Document Revised: 08/07/2019 Document Reviewed: 08/07/2019 [employer] Patient Education 2020 [employer]. 02/11/2022 11:19:59 Acute Urinary Retention, Male Acute [...] complications. Follow these instructions at home: Take rynp-kuf-babwduh and prescription medicines only as told by [...] 08/27/2001 Document Revised: 05/03/2018 Document Reviewed: 06/22/2017 [employer] Patient Education 2020 [employer]. Follow Up Care 02/08/2022 20:46:13 With:Abhay BROUSSARD, EL[place] Wood Address: [place] [address] [email or web address] [address]- When:2 to 4 weeks [facility]09-01-2022 Hospital Discharge instructions Patient Education 02/02/2022 [...] alcohol may irritate the prostate. Medicines Take erwc-lxt-xpebvmt and prescription medicines only as told by [...] 02/16/2005 Document Revised: 05/03/2018 Document Reviewed: 03/07/2018 [employer] Patient Education [employer] Follow Up Care 02/02/2022 12:21:30 With:Mona Baker Address: [address] [place] [address] [facility] (1) When:02/05/2022 15:28:10 [facility]08-22-2022 Evaluation + Plan note Diagnostic Tests Pending * Methylmalonic Acid 01/23/22 [facility]08-15-2022 Evaluation note* Encounter Date Diagnosis Assessment [...] Jan, Chronic antibiotic suppression (ICD-10 - Z79.2) [employer] Other 07-29-2022 Hospital Discharge instructions Patient Education [...] Slowly return to your usual activities. Take huls-dbd-wcuigha and prescription medicines only as told by [...] 02/13/2002 Document Revised: 10/21/2018 Document Reviewed: 10/21/2018 [employer] Patient Education 2019 [employer]. 2021 20:32:43 COVID-19: How to Protect Yourself and Others - [facility] COVID-19: How to Protect Yourself and Others Know how it spreads There is currently no vaccine to prevent coronavirus disease 2019 (COVID-19). The best way to prevent illness is to avoid being exposed to this virus. The virus is thought to spread mainly from iqomjc-ct-qselbb. ?Between people who are in close contact [...] are not readily available, use a hand nuclear security officer that contains at least 60% alcohol. Cover [...] at higher risk of getting very sick.www.cdc.gov/cor onavirus/2019-ncov/pkrd-unhdu-eipccdmxuef/nkbwrk-do-flnowu-risk.html Cover your mouth and nose with a [...] available, clean your hands with a hand nuclear security officer that contains at least 60% alcohol. Clean and disinfect Clean AND disinfect frequently touched surfaces daily. This includes tables, doorknobs, light switches, countertops, handles, desks, phones, keyboards, toilets, faucets, and sinks. www.cdc.gov/coronav irus/2019-ncov/exuljkc-ngplxer-cmip/vehadhflhrjc-fclp-yhas.html If surfaces are dirty, clean them: Use [...] 09/16/2019 Document Revised: 12/11/2019 Document Reviewed: 12/11/2019 [employer] Patient Education 2020 [employer] 2021 20:32:43 COVID-19 Frequently Asked Questions [...] the coronavirus come from? In May 2019, [place] told the World Health Organization (WHO) of several cases of lung disease (human respiratory illness). These cases were linked to an open seafood and livestock market in the city of [facility]. The link to the seafood and [...] and virus naming World Health Organization (WHO): www.who.int/emergencies/diseases/vkgoh-dngvvjzmwyr-7473/technical-g uidance/jfwwln-qyr-falcezoeldn-disease-(covid-2019)-dhd-hov-mnjhk-lehp-owopev-lc Who is at risk for complications from [...] relieve his or her symptoms by using kkon-rdp-uuezopz medicines that treat sneezing, coughing, and runny [...] water are not available, use alcohol-based hand nuclear security officer. Avoid touching your face, mouth, nose, or [...] Prevention (CDC): www.cdc.gov/coronavirus/2019-ncov/travelers/index.html World Health Organization (WHO): www.who.int/emergencies/diseases/czzzk-tjatsxrafoi-6455/travel-advice Know the risks and take action to [...] water are not available, use alcohol-based hand nuclear security officer. Cough or sneeze into a tissue, sleeve, [...] in hot, soapy water or use a refrigeration plant cork insulator. Air-dry your dishes. Wash laundry in hot [...] Health Organization (WHO) Information and news updates: www.who.int/emergencies/diseases/txwpd-hnygmxbiunr-7923 Coronavirus health topic: www.who.int/health-topics/coronavirus Questions and answers on COVID-19: www.who.int/news-room/q-a-detail/b-v-vsgualsyohbil Global tracker: who.[facility] [place] [employer] (AAP) Information for families: www.healthychildren.org/Hungarian/health-issues/conditions/chest-lungs/Pages /2397-Ofkve-Qsbrsmxpirf.aspx The coronavirus situation is changing rapidly. Check [...] 09/16/2019 Document Revised: 09/16/2019 Document Reviewed: 09/16/2019 [employer] Patient Education 2020 [employer] 2021 20:32:43 COVID-19 COVID-19 COVID-19 is a [...] to fight infection (immunocompromised). Live in a half-way or long-term care facility. Have a long-term [...] managed at home with rest, fluids, and kbhz-tit-azabhxh medicines. Treatment for a serious infection usually [...] are safe for you. General instructions Take yeao-sfz-iezercm and prescription medicines only as told by [...] water are not available, usean alcohol-based hand nuclear security officer. ?Avoid touching your mouth, face, eyes, or [...] water are not available, use alcohol-based hand nuclear security officer. Stay away from other members of your [...] have a weak immunity, live in a half-way, or have chronic disease. There is no [...] 06/26/2019 Document Revised: 10/16/2019 Document Reviewed: 06/26/2019 [employer] Patient Education 2019 [employer]. Follow Up Care 2021 15:21:06 With:Mona Baker Address: [place] [address]- Business (1) When:01/02/2022 19:16:15 Comments:Follow-up with your primary care provider in 3 to 5 days. If symptoms worsen, do not improve, or new symptoms arise please report back to emergency department for further evaluation. [facility]07-26-2022 History of Present illness Narrative* Ye [...] Testing: None Ye Lobo documented in this [id number] NotePROCEDURE: XR FOOT LT MIN 3 VIEWS [...] Electronically authenticated by: TERRY SHETTY Date: 2021-11-04 17:19[facility]05-25-2022 Hospital Discharge instructions Follow Up Care 10/26/2021 09:06:29 With:Olivia BROUSSARD, Mona Ward Address: [address] [place] [address] [place] [address]- When: Unknown [facility] 05-17-2022 Evaluation [...] artery disease (I25.10: Atherosclerotic heart disease of [place] coronary artery without angina pectoris) 7. PAF [...] mg= 1 tab(s), Oral, BID Vitamin D, [address] International_Unit, Oral, Daily With When Contact Information Mona Baker Within 3 to [address] [place] [address]- [facility] (1) Additional Instructions: Weakness, Jqxy-pt-Hzoa Weakness, Lfeq-ak-Rzxr discharge time > 30 min Extracted from: [...] artery disease (I25.10: Atherosclerotic heart disease of [place] coronary artery without angina pectoris) - ASA, [...] Initial Observation Care/Day Straight Fwd 30 min [address]481 2. Diabetes (E11.9: Type 2 diabetes mellitus without complications) - 70/30, SSI 3. Hypertension (I10: Essential (primary) hypertension) - coreg, imdur 4. CKD (chronic kidney disease), stage III (N18.30: Chronic kidney disease, stage 3 unspecified) - stable 5. Hyperlipidemia (E78.5: Hyperlipidemia, unspecified) - atorvastatin 6. Coronary artery disease (I25.10: Atherosclerotic heart disease of [place] coronary artery without angina pectoris) - ASA, [...] artery disease (I25.10: Atherosclerotic heart disease of [place] coronary artery without angina pectoris) - ASA, [...] Tests Radiology* XR Chest 2 Views 11/07/21 [facility]05-16-2022 Hospital Discharge instructions Patient Education 10/17/2021 09:37:43 Weakness, Zmyd-lx-Tgkq Weakness Weakness is a lack of strength. [...] help you get stronger. General instructions Take aykk-vrj-mglgvlz and prescription medicines only as told by [...] 05/03/2009 Document Revised: 12/25/2018 Document Reviewed: 12/25/2018 [employer] Patient Education 2020 [employer]. 10/17/2021 09:37:43 Weakness, Zsoz-jh-Qzmx Weakness Weakness is a lack of strength. [...] help you get stronger. General instructions Take thoe-byh-gykpugm and prescription medicines only as told by [...] 05/03/2009 Document Revised: 12/25/2018 Document Reviewed: 12/25/2018 [employer] Patient Education 2020 [employer]. Follow Up Care 10/14/2021 16:14:12 With:Mona Baker Address: [address] [place] [address] [facility] (1) When:3 to 5 days [facility]05-12-2022 Hospital Discharge instructions Patient Education 10/13/2021 [...] you gain muscle strength. General instructions Take flod-deb-pmhyayt and prescription medicines only as told by [...] 05/21/2006 Document Revised: 12/25/2018 Document Reviewed: 12/25/2018 [employer] Patient Education 2020 [employer]. Follow Up Care 10/06/2021 17:41:21 With:Mona Baker Address: [address] [place] [address]- Business (1) When:10/17/2021 10:40:00 [facility]05-12-2022 Evaluation + Plan noteExtracted from: Title:APSO Note Author:Delvin SANTANA MD Date: 1. Other acute kidney failur e (N17.8: Other acute kidney failure) - secondary to pre-renal causes - Cr decreased with IVF - acute kidney injury on CKD on admission as above Ordered: Sbsq Observation Care/Day Moderate 25 min [address]59 2. CKD (chronic kidney disease), stage III [...] artery disease (I25.10: Atherosclerotic heart disease of [place] coronary artery without angina pectoris) - ASA, [...] artery disease (I25.10: Atherosclerotic heart disease of [place] coronary artery without angina pectoris) - ASA, [...] 10/12/21 9:17:00 EDT Extracted from: Title:APSO Note Author:Delvin SANTANA MD Date: 1. Other acute kidney failur e (N17.8: Other acute kidney failure) - secondary to pre-renal causes - Cr decreased with IVF - acute kidney injury on CKD on admission as above Ordered: Sbsq Observation Care/Day Moderate 25 min 36952 2. CKD (chronic kidney disease), stage III [...] artery disease (I25.10: Atherosclerotic heart disease of [place] coronary artery without angina pectoris) - ASA, [...] artery disease (I25.10: Atherosclerotic heart disease of [place] coronary artery without angina pectoris) - ASA, [...] artery disease) (I25.10: Atherosclerotic heart disease of [place] coronary artery without angina pectoris) No active [...] Device Cardiac Monitoring Continuous Pulse Oximetry COVID-19 ([facility]) Diabetic/Calorie Control Diet Education Fall Risk Folate Level Hypoglycemia Protocol Responsive Patient Hypoglycemia Protocol Unresponsive Patient Magnesium Level Notify Provider Vital Signs Notify Provider Vital Signs Occupational Therapy Evaluate Patient, Develop a Plan of Care and Implement Plan Physical Therapy Evaluate Patient, Develop a Plan of Care and Implement Plan Place in Status Precautions Precautions Rapid COVID Antigen ([facility]) Resuscitation Status - Full Routine Capillary Glucose [...] Tests Radiology* XR Chest 2 Views 10/20/21 [facility]04-28-2022 History of Present illness Narrative* Ye [...] Testing: None Ye Lobo documented in this [id number] History of Present illness Narrative* Ye Lobo MD - 06/21/2021 12:26 PM EST BEH[facility]IORAL HE[facility] PSYCHIATRIC PROGRESS NOTE 06/21/2021 José Luis Gil, a 70 y.o. male, to reestablish care at [facility]. Patient is a previously known patient, who was under my care for 8 years at [facility] Patient is referred by Mona Baker MD . Interval History: Patient is a 70-year-old , retired white male who resides in [facility] with his spouse. Patient was under my care for almost 7 years in [facility]. Patient stated that he was seeing psychNP [...] symptoms since he was last seen in [place]. No new stressors reported. Interpersonal issues were [...] and Objectives discussed. Other Referrals/Consults/Psychological Testing: None eY Lobo documented in this [id number] Evaluation + Plan note Future Appointments Appointment Date:09/08/2021 10:00:00 AM Scheduled Provider: Location:FT.CARDIO Appointment Type:NCV ICD (FT) Appointment Date:10/13/2021 02:30:00 PM Scheduled Provider:Armani Yarbrough DO Location:.ONCOLOGY Appointment Type:ONC Office Visit 15 (FT) Future Scheduled Tests Laboratory* CBC w/ Auto Diff 10/11/21 * Comprehensive Metabolic Panel 10/11/21 * Ferritin 10/11/21 * Iron Level 10/11/21 * Iron Percent Saturation 10/11/21 [facility]05-09-2020 Evaluation + Plan note Future Appointments Appointment Date:08/16/2023 10:00:00 AM Scheduled Provider: Location:FT.CARDIO Appointment Type:NCV ICD (FT) Appointment Date:10/11/2023 02:15:00 PM Scheduled Provider:Armani Yarbrough DO Location:.ONCOLOGY Appointment Type:ONC Office Visit 30 (FT) Appointment Date:10/22/2023 10:30:00 AM Scheduled Provider[facility] Appointment Type:Pulmonary Follow Up (FT) [...] 04/09/23 * MRI Brain w/o Contrast 03/15/23 [facility]05-09-2020 Evaluation + Plan note Future Appointments Appointment Date:08/16/2023 10:00:00 AM Scheduled Provider: [facility] Type:NCV ICD (FT) Appointment Date:10/11/2023 02:15:00 PM Scheduled Provider:Armani Yarbrough DO [facility] Type:ONC Office Visit 30 (FT) Appointment Date:10/22/2023 10:30:00 AM Scheduled Provider:Nicolás Diggs MD [facility] Type:Pulmonary Follow Up (FT) Future [...] 04/09/23 * MRI Brain w/o Contrast 03/15/23 [facility]03-15-2020 Evaluation + Plan note Future Appointments Appointment Date:08/10/2022 09:30:00 AM Scheduled Provider: [facility] Appoint[facility] Type:NCV ICD (FT) Appointment Date:08/16/2022 01:00:00 PM Scheduled Provider:Andi WARE MD Location[facility] Appointment Type:URO Office Visit Appointment Date:08/30/2022 01:00:00 PM Scheduled Provider:Andi WARE MD Location:[facility] Appointment Type:URO Office Visit Future Scheduled Tests Laboratory* PSA Total 03/23/22 [facility] Kevin [id number] Evaluation + Plan note Future Appointments Appointment Date:02/15/2023 10:30:00 AM Scheduled Provider: [facility] Appoint[facility] Type:NCV ICD (FT) Appointment Date:07/23/2023 12:15:00 PM Scheduled Provider:Andi WARE MD Location:[facility] Appointment Type:URO Office Visit Diagnostic Tests Pending * UroVysion Fish and Urine Cyto ([facility]) 01/16/23 Future Scheduled Tests Laboratory* PSA Total 03/23/22 [facility]02-19-2020 Evaluation + Plan note Future Appointments Appointment Date:05/17/2023 10:30:00 AM Scheduled Provider: [facility] Type:NCV ICD () Appointment Date:07/23/2023 12:15:00 PM Scheduled Provider:Andi WARE MD Location:[facility] Appointment Type:URO Office Visit Appointment Date:10/11/2023 02:15:00 PM Scheduled Provider:Armani Yarbrough DO [facility] Type:ONC Office Visit 30 (FT) Appointment Date:10/22/2023 10:30:00 AM Scheduled Provider:Priya Diggs MD Kathy Location:.Pulmonary Clinic Appointment Type:Pulmonary Follow Up (FT) [...] Count 07/13/23 * Transferrin 07/13/23 * Transferrin 5/9/24 Radiology* CT Chest w/o Contrast 04/09/23 * MRI Brain w/o Contrast 03/15/23 [facility] - Reported* Parkinsonism * Neurologic Evaluation. [id number] B 101 DO Work Phone: chief complaint Narrative - Reported* Parkinsonism * Neurologic Evaluation. CK-[id number] Alis 5 Work Phone: chief complaint+Reason for visit Narrative* Chief Complaint rectal bleeding Reason for Visit Acute lower GI bleed ing Haemorrhage postprocedure Rectal bleeding [facility] Work Phone: Evaluation + Plan note Future Appointments Appointment Date:10/20/2021 10:30:00 AM Scheduled Provider: Location:.CARDIO Appointment Type:PUL Pulmonary Function Test (FT) Appointment Date:10/20/2021 11:30:00 AM Scheduled Provider: Location:.XRAY Appointment Type:XR Chest (FT) Appointment Date:12/08/2021 10:00:00 AM Scheduled Provider: Location:.CARDIO Appointment Type:NCV ICD (FT) Future Scheduled Tests Radiology* XR Chest 2 Views 10/20/21 [facility] Future Appointments Appointment Date:11/07/2021 12:30:00 PM Scheduled Provider: Location:.CARDIO Appointment Type:PUL Pulmonary Function Test (FT) Appointment Date:11/07/2021 01:30:00 PM Scheduled Provider: Location:.XRAY Appointment Type:XR Chest (FT) Appointment Date:12/08/2021 10:00:00 AM Scheduled Provider: Location:.CARDIO Appointment Type:NCV ICD (FT) Future Scheduled Tests Radiology* XR Chest 2 Views 11/07/21 [facility] Evaluation + Plan note Future Appointments Appointment Date:12/08/2021 10:00:00 AM Scheduled Provider: Location:.CARDIO Appointment Type:NCV ICD (FT) [facility] Future Appointments Appointment Date:02/20/2022 10:00:00 AM Scheduled Provider:Deshawn Salinas Location: Appointment Type:URO [facility] Evaluation + Plan note Future Appointments Appointment Date:03/09/2022 02:00:00 PM Scheduled Provider:Deshawn Salinas Location: Appointment Type:URO [facility] Evaluation + Plan note Future Appointments Appointment Date:03/23/2022 09:00:00 AM Scheduled Provider:Deshawn Salinas Location: Appointment Type:URO Office Visit [facility] Evaluation + Plan note Future Appointments Appointment Date:03/31/2022 09:30:00 AM Scheduled Provider:Nicolás Diggs MD [facility] App[facility] Type:Pulmonary Follow Up (FT) Future Scheduled Tests Laboratory* PSA Total 03/23/22 [facility] Evaluation + Plan note Future Appointments Appointment Date:05/09/2022 10:30:00 AM Scheduled Provider: Location:[facility] Appointment Type:Urology FT Appointment Date:05/09/2022 11:45:00 AM Scheduled Provider: Location:[facility] Appointment Type:Urology FT Future Scheduled Tests Laboratory* PSA Total 03/23/22 [facility] Future Appointments Appointment Date:06/22/2022 12:45:00 PM Scheduled Provider: Location:.CARDIO Appointment Type:PUL Pulmonary Function Test (FT) Appointment Date:06/22/2022 01:45:00 PM Scheduled Provider: Location:.XRAY Appointment Type:XR Chest (FT) Appointment Date:07/20/2022 01:45:00 PM Scheduled Provider:Landon WILL MD Location:[facility] Appointment Type:BADH Follow Up Future Scheduled Tests Laboratory* PSA Total 03/23/22 Radiology* XR Chest 2 Views 06/22/22 [facility] evaluation + Plan note Future Appointments Appointment Date:07/20/2022 01:45:00 PM Scheduled Provider:Landon WILL MD Location:[facility] Appointment Type:BAD Follow Up Future Scheduled Tests Laboratory* PSA Total 03/23/22 [facility] Future Appointments Appointment Date:08/16/2022 01:00:00 PM Scheduled Provider:Andi WARE MD Location:[facility] Appointment Type:URO Office Visit Appointment Date:08/30/2022 01:00:00 PM Scheduled Provider:Andi WARE MD Location:[facility] Appointment Type:URO Office Visit Future Scheduled Tests Laboratory* PSA Total 03/23/22 [facility] Future Appointments Appointment Date:08/23/2022 10:15:00 AM Scheduled Provider:[facility] Office Visit Appointment Date:08/30/2022 01:00:00 PM Scheduled Provider:Andi WARE MD Location:[facility] Appointment Type:URO Office Visit Appointment Date:11/09/2022 10:30:00 AM Scheduled Provider: Location:FTOriCARDIO Appointment Type:NCV ICD (FT) Future Scheduled Tests Laboratory* PSA Total 03/23/22 [facility] Future Appointments Appointment Date:09/25/2022 11:15:00 AM Scheduled Provider:Andi WARE MD Location:[facility] Appointment Type:URO Office Visit Appointment Date:11/09/2022 10:30:00 AM Scheduled Provider: Location:FTOriCARDIO Appointment Type:NCV ICD (FT) Future Scheduled Tests Laboratory* PSA Total 03/23/22 [facility] Evaluation + Plan note Future Appointments Appointment Date:11/09/2022 10:30:00 AM Scheduled Provider: Location:FTOriCARDIO Appointment Type:NCV ICD (FT) Future Scheduled Tests Laboratory* PSA Total 03/23/22 [facility] evaluation + Plan note Future Appointments Appointment Date:11/09/2022 10:30:00 AM Scheduled Provider: Location:FT.CARDIO Appointment Type:NCV ICD (FT) Diagnostic Tests Pending * UroVysion Fish and Urine Cyto ([facility]) 10/31/22 Future Scheduled Tests Laboratory* PSA [facility] Future Appointments Appointment Date:02/15/2023 10:30:00 AM Scheduled Provider: [facility] Appoint[facility] Type:NCV ICD (FT) Diagnostic Tests Pending * Urine Culture 11/24/22 Future Scheduled Tests Laboratory* PSA Total 03/23/22 Radiology* CT Abdomen/Pelvis w/ Contrast 11/24/22 [facility] Future Appointments Appointment Date:02/15/2023 10:30:00 AM Scheduled Provider: [facility] Appoint[facility] Type:NCV ICD (FT) Future Scheduled Tests Laboratory* PSA Total [facility]23/22 [facility] Future Appointments Appointment Date:07/23/2023 12:15:00 PM Scheduled Provider:Andi WARE MD Location:[facility] Appointment Type:URO Office Visit Future Scheduled Tests Laboratory* PSA Total 03/23/22 [facility] Future Appointments Appointment Date:03/09/2023 10:00:00 AM Scheduled Provider: [facility] Appoint[facility] Type:CT Head/Neck (FT) Appointment Date:05/17/2023 10:30:00 AM Scheduled Provider: [facility] Appointment Type:NCV ICD (FT) Appointment Date:07/23/2023 12:15:00 PM Scheduled Provider:Andi WARE MD Location:[facility] Appointment Type:URO Office Visit Future Scheduled Tests Laboratory* PSA Total 03/23/22 Radiology* CT Head or Brain w/o Contrast 03/09/23 [facility] Future Appointments Appointment Date:04/12/2023 09:00:00 AM Scheduled Provider:Armani Yarbrough DO Location:.ONCOLOGY Appointment Type:ONC Office Visit 30 (FT) Appointment Date:05/17/2023 10:30:00 AM Scheduled Provider: [facility] Appointment Type:NCV ICD (FT) Appointment Date:07/23/2023 12:15:00 PM Scheduled Provider:Adni WARE MD Location:[facility] Appointment Type:URO Office Visit Appointment Date:10/22/2023 10:30:00 AM Scheduled Provider:Nicolás Diggs MD Location:.Pulmonary Clinic Appointment Type:Pulmonary Follow Up (FT) Future Scheduled Tests Radiology* CT Chest w/o Contrast 04/09/23 * MRI Brain w/o Contrast 03/15/23 [facility] Future Appointments Appointment Date:07/23/2023 12:15:00 PM Scheduled Provider:Andi WARE MD Location:[facility] Appointment Type:URO Office Visit Appointment Date:08/16/2023 10:00:00 AM Scheduled Provider: [facility] Appointment Type:NCV ICD (FT) Appointment Date:10/11/2023 02:15:00 PM Scheduled Provider:Armani Yarbrough DO [facility] Type:ONC Office Visit 30 (FT) Appointment [...] 04/09/23 * MRI Brain w/o Contrast 03/15/23 [facility] Future Appointments Appointment Date:10/11/2023 02:15:00 PM Scheduled Provider:Armani Yarbrough DO [facility] App[facility] Type:ONC Office Visit 30 (FT) Appointment Date:10/22/2023 10:30:00 AM Scheduled Provider:Nicolás Diggs MD Location:FTPulmonary Clinic Appointment Type:Pulmonary Follow Up (FT) Future [...] 04/09/23 * MRI Brain w/o Contrast 03/15/23 [facility] Future Appointments Appointment Date:10/31/2023 01:45:00 PM Scheduled Provider:Armani Yarbrough DO [facility] Type:ONC Office Visit 30 (FT) Diagnostic [...] 04/09/23 * MRI Brain w/o Contrast 03/15/23 [facility] Future Appointments Appointment Date:10/31/2023 01:45:00 PM Scheduled Provider:Armani Yarbrough DO [facility] App[facility] Type:ONC Office Visit 30 (FT) Appointment Date:11/09/2023 09:00:00 AM Scheduled Provider: [facility] Appointment Type:Anticoagulation Initial Assessment 58 (F Future Scheduled Tests Laboratory* CBC w/ Auto Diff 07/13/23 * Comprehensive Metabolic Panel 07/13/23 * Ferritin 07/13/23 * Iron Level 07/13/23 * Iron Percent Saturation 07/13/23 * Transferrin 07/13/23 Radiology* CT Chest w/o Contrast 04/09/23 * MRI Brain w/o Contrast 03/15/23 [facility] Future Appointments Appointment Date:11/09/2023 09:00:00 AM Scheduled Provider: [facility] Appointment Type:Anticoagulation Initial Assessment 58 (F Appointment Date:12/05/2023 10:00:00 AM Scheduled Provider:Nicolás Diggs MD [facility] Appointment Type:Pulmonary Follow Up (FT) Appointment Date:10/30/2024 01:45:00 PM Scheduled Provider:Armani Yarbrough DO [facility] Type:ONC Office Visit 30 (FT) Future [...] 04/09/23 * MRI Brain w/o Contrast 03/15/23 [facility] Future Appointments Appointment Date:11/16/2023 02:45:00 PM Scheduled Provider: Location:.CARDIO Appointment Type:Anticoagulation Follow Up 15 (FT) Appointment Date:11/22/2023 02:00:00 PM Scheduled Provider: Location:.ONCOLOGY Appointment Type:ONC Injectafer (FT) Appointment Date:12/05/2023 10:00:00 AM Scheduled Provider:Nicolás Diggs MD Location:.Pulmonary Clinic Appointment Type:Pulmonary Follow Up (FT) Appointment Date:10/30/2024 01:45:00 PM Scheduled Provider:Armani Yarbrough DO Location:.ONCOLOGY Appointment Type:ONC Office Visit 30 () Future [...] 04/09/23 * MRI Brain w/o Contrast 03/15/23 [facility] Future Appointments Appointment Date:11/23/2023 03:15:00 PM Scheduled Provider: [facility] Appointment Type:Anticoagulation Follow Up 15 (FT) Appointment [...] 04/09/23 * MRI Brain w/o Contrast 03/15/23 [facility] Future Appointments Appointment Date:12/14/2023 11:45:00 AM Scheduled Provider: Location:.CARDIO Appointment Type:Anticoagulation Follow Up 15 (FT) Appointment Date:12/20/2023 12:00:00 PM Scheduled Provider: Location:.CAT SCAN Appointment Type:CT Chest (FT) Appointment Date:01/23/2024 11:00:00 AM Scheduled Provider:Caterina BROUSSARD, Nicolás Chavez Location:.Pulmonary [...] 04/09/23 * MRI Brain w/o Contrast 03/15/23 [facility] Future Appointments Appointment Date:12/21/2023 11:45:00 AM Scheduled Provider: [facility] Appointment Type:Anticoagulation Follow Up 15 (FT) Appointment Date:12/27/2023 08:15:00 PM Scheduled Provider: [facility] Appointment Type:PEDIATRIC LICENSED PRACTICAL NURSE Sleep Study PSG (FT) Appointment Date:01/10/2024 10:30:00 AM Scheduled Provider: [facility] Appointment Type:NCV ICD (FT) Appointment Date:01/23/2024 11:00:00 AM Scheduled Provider:Nicolás iDggs MD [facility] Appointment Type:Pulmonary Follow Up (FT) Appointment Date:01/31/2024 09:30:00 AM Scheduled Provider: Location:[facility] Appointment Type:Urology CALL PAT FT Appointment Date:02/05/2024 11:00:00 AM Scheduled Provider: Location:[facility] Appointment Type:Urology FT Appointment Date:10/30/2024 01:40:00 PM Scheduled Provider:Armani Yarbrough DO [facility] Type:ONC Office Visit 30 (FT) Future [...] 04/09/23 * MRI Brain w/o Contrast 03/15/23 [facility] Future Appointments Appointment Date:12/28/2023 01:45:00 PM Scheduled Provider: [facility] Appointment Type:Anticoagulation Follow Up 15 (FT) Appointment Date:01/10/2024 10:30:00 AM Scheduled Provider: [facility] Appointment Type:NCV ICD (FT) Appointment Date:01/23/2024 11:00:00 AM Scheduled Provider:Nicolás Diggs MD [facility] Appointment Type:Pulmonary Follow Up (FT) Appointment Date:01/31/2024 09:30:00 AM Scheduled Provider: Location:[facility] Appointment Type:Urology CALL PAT FT Appointment Date:02/05/2024 11:00:00 AM Scheduled Provider: Location:[facility] Appointment Type:Urology FT Appointment Date:10/30/2024 01:40:00 PM Scheduled Provider:Armani Yarbrough DO [facility] Type:ONC Office Visit 30 (FT) Future [...] 04/09/23 * MRI Brain w/o Contrast 03/15/23 [facility] Evaluation + Plan note Future Appointments Appointment Date:01/11/2024 01:45:00 PM Scheduled Provider: [facility] Appointment Type:Anticoagulation Follow Up 15 (FT) Appointment Date:01/23/2024 11:00:00 AM Scheduled Provider:Nicolás Diggs MD [facility] Appointment Type:Pulmonary Follow Up (FT) Appointment Date:01/31/2024 09:30:00 AM Scheduled Provider: Location:[facility] Appointment Type:Urology CALL PAT FT Appointment Date:02/05/2024 11:00:00 AM Scheduled Provider: Location:[facility] Appointment Type:Urology FT Appointment Date:04/10/2024 11:00:00 AM Scheduled Provider: [facility] Appointment Type:NCV Pacemaker (FT) Appointment Date:10/30/2024 01:40:00 [...] 04/09/23 * MRI Brain w/o Contrast 03/15/23 [facility] Evaluation + Plan note Future Appointments Appointment Date:01/31/2024 09:30:00 AM Scheduled Provider: Location:[facility] Appointment Type:Urology CALL PAT FT Appointment Date:02/05/2024 11:00:00 AM Scheduled Provider: Location:[facility] Appointment Type:Urology FT Appointment Date:02/08/2024 02:00:00 PM Scheduled Provider: Location:.CARDIO Appointment Type:Anticoagulation Follow Up 15 (FT) Appointment Date:04/10/2024 11:00:00 AM Scheduled Provider: Location:FT.CARDIO [...] 04/09/23 * MRI Brain w/o Contrast 03/15/23 [facility] Evaluation + Plan note Future Appointments Appointment Date:02/06/2024 04:00:00 PM Scheduled Provider: [facility] Appointment Type:NM PET w/ CT Scan Skull Base to Midthigh Appointment Date:02/08/2024 02:00:00 PM Scheduled Provider: [facility] Appointment Type:Anticoagulation Follow Up 15 (FT) Appointment Date:04/10/2024 11:00:00 AM Scheduled Provider: [facility] Appointment Type:NCV Pacemaker (FT) Appointment Date:10/30/2024 01:40:00 [...] 04/09/23 * MRI Brain w/o Contrast 03/15/23 [facility] Evaluation + Plan note Future Appointments Appointment Date:03/25/2024 02:30:00 PM Scheduled Provider: Location:.CARDIO Appointment Type:Anticoagulation Follow Up 15 (FT) Appointment Date:04/10/2024 11:00:00 AM Scheduled Provider: [facility] Appointment Type:NCV Pacemaker (FT) Appointment Date:10/30/2024 01:40:00 [...] 08/14/24 * CT Chest w/o Contrast 04/09/23 [facility] Evaluation + Plan note Future Appointments Appointment Date:04/10/2024 11:00:00 AM Scheduled Provider: Location:FT.CARDIO Appointment Type:NCV Pacemaker (FT) Appointment Date:04/15/2024 02:30:00 PM Scheduled Provider: Location:.CARDIO Appointment Type:Anticoagulation Follow Up 15 (FT) Appointment Date:10/30/2024 01:40:00 PM Scheduled Provider:Armani [...] 08/14/24 * CT Chest w/o Contrast 04/09/23 [facility] Evaluation note* Diagnosis Bipolar 1 disorder, mixed, mild (HCC)- Primary Generalized anxiety disorder Long-term use of high-risk medication [facility] Bipolar 1 disorder, manic, mild (HCC)- Primary Generalized anxiety disorder Long-term use of high-risk medication [facility] Diagnosis Bipolar 1 disorder, manic, mild (HCC)- Primary Generalized anxiety disorder Long-term use of high-risk medication [facility] Diagnosis Onset Date Resolution Status Acute lower GI bleeding acut e [facility] Work Phone: Evaluation note* Diagnosis Onset Date Resolution Status Acute lower GI bleeding acut e Haemorrhage postprocedure ac [place] Rectal bleeding acute [facility] Work Phone: Evaluation noteNo [employer] Other Evaluation note* Diagnosis Memory loss- Primary Parkinsonism, unspecified Parkinsonism type Bipolar disorder, in partial remission, most recent episode mixed (CMS/HCC) (HCC) Polypharmacy Issue of repeat prescriptions [facility] Diagnosis Mild dementia without behavioral disturbance, psychotic disturbance, mood disturbance, or anxiety, unspecified dementia type (HCC)- Primary B12 deficiency Acquired hypothyroidism Unspecified hypothyroidism [facility]* Diagnosis Parkinsonism, unspecified Parkinsonism type- Primary Cognitive impairment Unspecified persistent mental disorders due to conditions classified elsewhere documented in this encounter [facility] Work Phone: Evaluation note* Diagnosis Atherosclerosis of coronary artery bypass graft of [place] heart without angina pectoris S/P PTCA (percutaneous [...] sleep apnea, adult documented in this encounter [facility] Work Phone: Evaluation noteNo assessment information available [facility] Work Phone: Evaluation note* Diagnosis Atherosclerosis of coronary artery bypass graft of [place] heart without angina pectoris- Primary Ventricular tachycardia [...] 2 diabetes mellitus without complication, unspecified whether longterm insulin use (Multi) Class 1 obesity without serious comorbidity with body mass index (BMI) of 32.0 to 32.9 in adult, unspecified obesity type Mild dementia without behavioral disturbance, psychotic disturbance, mood disturbance, or anxiety, unspecified dementia type (Multi) documented in this encounter [facility] Work Phone: Evaluation note* Diagnosis Bipolar 1 disorder, manic, full remission (HCC)- Primary Generalized anxiety disorder Long-term use of high-risk medication [facility] Diagnosis Onset Date Resolution Status Chronic antibiotic suppression acute Osteomyelitis of ankle and foot acute [facility] Work Phone: Evaluation note* Diagnosis Onset Date Resolution Status Chronic antibiotic suppression acute Osteomyelitis of ankle and foot acute Osteomyelitis of ankle and foot acute [facility] Work Phone: Evaluation note* Diagnosis [...] of aorta [facility] Diagnosis Parkinson's disease with dyskinesia and [...] or anxiety (CMS/HCC) documented in [facility] encounter [facility]* Diagnosis Acquired hypothyroidism (CMS/HCC) Unspecified hypothyroidism documented in this encounter [facility]* Diagnosis Other hypervolemia- Primary BMI 33.0-33.9,adult Paroxysmal atrial fibrillation (Multi) Atrial fibrillation Atherosclerosis of coronary artery bypass graft of [place] heart without angina pectoris Paroxysmal atrial fibrillation (Multi) Atrial fibrillation High risk medication use Ischemic cardiomyopathy Other specified forms of chronic ischemic heart disease Ventricular tachycardia (paroxysmal) (Multi) Paroxysmal ventricular tachycardia AICD (automatic cardioverter/defibrillator) present Automatic implantable cardiac defibrillator in situ Hypertension, essential, benign Essential hypertension, benign Mixed hyperlipidemia S/P CABG (coronary artery bypass graft) Postsurgical aortocoronary bypass status S/P PTCA (percutaneous transluminal coronary angioplasty) Postsurgical percutaneous transluminal coronary angioplasty status Stage 3b chronic kidney disease (Multi) Hypothyroidism, adult Other specified acquired hypothyroidism Obstructive sleep apnea, adult documented in this encounter [facility] Work Phone: History and physical note Author Bill Mcgee [facility] September 06, 2023 8:14am Note Date/Time September 06, 2023 8:13 am [facility] [address] [place] [address] Gastroenterology H&P Signed Patient: José Luis Faulkner MR #: [id number] : 1950 Acct:[id number] Age/Sex: 72 / M Adm Date: 4 Loc: Room: Type: [facility] Attending Dr: Bill Mcgee MD [...] Mcgee MD Documented By: Bill Mcgee MD 09/06/2312 Signed By: <Electronically signed by Bill Mcgee MD> 09/06/2314 [facility] Work Phone: History general Narrative - Reported* [...] SEE ABOVE SURGERY Hospitalization History HYPOTENSION 07/2016 [employer] Other History of Present illness Narrative* Venkatesh [...] year ago. 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 * - Tobacco use: Quit smoking cigarettes in 2000. * - Alcohol use: None * - Illicit drug use: None * Family History: * - No family history of Parkinson s disease or tremor. Possibly dementia in older sister. [id number] B 101 DO Work Phone: History of [...] year ago. 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 * - Tobacco use: Quit smoking cigarettes in 2000. * - Alcohol use: None * - Illicit drug use: None * Family History: * - No family history of Parkinson s disease or tremor. Possibly dementia in older sister. [id number] [place] [facility] Work Phone: Hospital course Narrative No data available for this section [facility] No data available for this section [facility] Discharge instructions Additional Instructions Take Torsemide 20mg twice daily for 4 days then resume home dose and repeat labs [facility] Work Phone: Hospital Discharge instructions Additional Instructions [...] appointment and to remove the catheter. [ ][facility] Work Phone: Hospital Discharge instructions Additional Instructions [...] to schedule a follow up appointment.] [ ][facility] Work Phone: Progress note No data available for this section [facility] Family History No Family History Records [...] Medication list reviewed and updated. * to Abbea Jones NP for review in Dr. Felipa Milligan MD absence * to Dr. Felipa Milligan MD for review upon return. * Enclosed you will find an order form to have your Pulmonary Functions Test done at [facility]. The specific time and date of your testing is indicated on the form. It is also necessary for you to have a chest x-ray as well as lab work. These tests are needed if you are on one of the following medications: Cordarone, Pacerone, or Amiodarone. * (If your testing is being performed at [facility] - please enter through the [facility] entrance - NOT the Emergency Room entrance. ) * If you are unable to keep the appointment that has been made for you, please contact our office at [phone] and press option #3 so that we may assist you in rescheduling. * Thank you for your compliance with this testing, * The Staff * [facility] * Note: You MAY NOT USE inhalers for 4 hours PRIOR to your Pulmonary Function Test. * [facility] 06/16/2021 @ 10:30 AM * Enclosed you will find an order form to have your Pulmonary Functions Test done at [facility]. The specific time and date of your testing is indicated on the form. It is also necessary for you to have a chest x-ray as well as lab work. These tests are needed if you are on one of the following medications: Cordarone, Pacerone, or Amiodarone. * (If your testing is being performed at [facility] - please enter through the [facility] entrance - NOT the Emergency Room entrance. ) * If you are unable to keep the appointment that has been made for you, please contact our office at [phone] and press option #3 so that we may assist you in rescheduling. * Thank you for your compliance with this testing, * The Staff * [facility] * Note: You MAY NOT USE inhalers for 4 hours PRIOR to your Pulmonary Function Test * [facility] 07/21/2021 @ 12:45 pm CATH RESULTS.* CATH [...] JOSÉ LUIS GIL is being seen for [facility]. * Is in the office for follow-up [...] have your Pulmonary Functions Test done at [facility]. The specific time and date of your testing is indicated on the form. It is also necessary for you to have a chest x-ray as well as lab work. These tests are needed if you are on one of the following medications: Cordarone, Pacerone, or Amiodarone. * (If your testing is being performed at [facility] - please enter through the [facility] entrance - NOT the Emergency Room entrance. ) * If you are unable to keep the appointment that has been made for you, please contact our office at [phone] and press option #3 so that we may assist you in rescheduling. * Thank you for your compliance with this testing, * The Staff * [facility] * Note: You MAY NOT USE inhalers for 4 hours PRIOR to your Pulmonary Function Test * [facility] 10/20/2021 @ 10:30 AM * JOSÉ LUIS [...] have your Pulmonary Functions Test done at [facility]. The specific time and date of your testing is indicated on the form. It is also necessary for you to have a chest x-ray as well as lab work. These tests are needed if you are on one of the following medications: Cordarone, Pacerone, or Amiodarone. * (If your testing is being performed at [facility] - please enter through the [facility] entrance - NOT the Emergency Room entrance. ) * If you are unable to keep the appointment that has been made for you, please contact our office at [phone] and press option #3 so that we may assist you in rescheduling. 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 Expl anation Advance Directives and Living Will [...] f/u Unknown [facility] CULTURE RESULTS was in [facility] for Observation Reason for Visit Chronic antibiotic s uppression Osteomyelitis of ankle and foot Osteomyelitis of ankle and foot Reason for Referral Specialty Diagnoses / Procedures Referred By Gutierrez t Referred To Contact Diagnoses Paroxysmal atrial fibrillation ([facility]) Procedures ECG 12 Lead Felipa Milligan MD [address] [place] [address] 2, [address] [address] Referral ID Status Reason Start Date Expiration Date V isits Requested Visits Authorized [id number] Pending Review 04/04/2023 04/03/2024 1 1 Specialty Diagnoses / Procedures Referred By Gutierrez t Referred To Contact Cardiology Diagnoses Atherosclerosis of coronary artery bypass graft of [place] heart without angina pectoris S/P PTCA (percutaneous transluminal coronary angioplasty) Ventricular tachycardia (paroxysmal) ([facility]) Procedures Follow Up In Cardiology Felipa Milligan MD [address] [facility] 2, [address] [address] Felipa Milligan MD [address] [facility] 2, [address] [address] Referral ID Status Reason Start Date Expiration Date V isits Requested Visits Authorized [id number] Authorized 04/04/2023 04/03/2024 1 1 Specialty Diagnoses / Procedures Referred By Contac t Referred To Contact Radiology Diagnoses Memory loss Procedures CT head wo IV contrast MaliaemmaKeisha, [facility] [address] [address] Referral ID Status Reason Start Date Expiration Date V isits Requested Visits Authorized [id number] Pending Review 02/20/2023 08/19/2023 1 1 Additional Source Comments Reason for Visit (unrecogniz ed section and content) Reason Comments Medication Management Reason Onset Date Comments Appointment 02/15/2023 Reason Comments Memory Loss Specialty Diagnoses / Procedures Referred By Contac t Referred To Contact Geriatric Medicine Diagnoses dementia (per zackary) Procedures geriatric assessment [address] [address] [address] Referral ID Status Reason Start Date Expiration Date Visits Re quested Visits Authorized [id number] Closed 02/16/2023 08/15/2023 1 1 Reason Comments Memory Loss Reason Comments Parkinson's Disease Reason Comments Hospital Follow-up Specialty Diagnoses / Procedures Referred By Contac t Referred To Contact Cardiology Diagnoses Atherosclerosis of coronary artery bypass graft of [place] heart without angina pectoris Procedures Follow Up In Cardiology Eyad Mims MD [address] [facility] 2, [facility] [address] [place] [address] Referral ID Status Reason Start Date Expiration Date V isits Requested Visits Authorized [id number] Authorized 03/14/2023 09/10/2023 1 1 Reason Comments Follow-up Specialty Diagnoses / Procedures Referred By Contac t Referred To Contact Cardiology Diagnoses Atherosclerosis of coronary artery bypass graft of [place] heart without angina pectoris S/P PTCA (percutaneous transluminal coronary angioplasty) Ventricular tachycardia (paroxysmal) (Multi) Procedures Follow Up In Cardiology Felipa Milligan MD [address] [facility] 2, [place] [address] [place] [address] Felipa Milligan MD [address] [place] [address] 2, [address] [address] Referral ID Status Reason Start Date Expiration Date V isits Requested Visits Authorized [id number] Authorized 04/04/2023 04/03/2024 1 1 Reason Onset Date Comments Hospital Follow-up 03/04/2024 Reason Comments Hospital Follow-up Reason Comments Stroke Parkinson's Disease Memory Loss Sleep Apnea Reason Onset Date Comments Med Refill 03/25/2024 Reason Onset Date Comments Medication Question 04/01/2024 Reason Comments Follow-up 6m c ekg Specialty Diagnoses / Procedures Referred By Contac t Referred To Contact Cardiology Diagnoses Atherosclerosis of coronary artery bypass graft of [place] heart without angina pectoris Procedures Follow Up In Cardiology Felipa Milligan MD [address] [place] [address] 2, [address] [address] Phone: tel: fax: Felipa Milligan MD [address] [place] [address] 2, [address] [address] Phone: tel: fax: Referral ID Status Reason Start Date Expiration Date V isits Requested Visits Authorized [id number] Authorized 10/17/2023 10/16/2024 1 1 Reason Onset Date Comments Medication Question 04/03/2024 Care Teams (unrecognized sec tion and content) [...] Provider Active Sta rt: August 11, 2023 [employer] Relationship Specialty Start Date End Date Mona Baker MD [address] [place] [address] PCP - General Family Medicine 06/21/21 [employer] Relationship Specialty Start Date End Date Mona Baker MD [address] [place] [address] PCP - General Family Medicine 06/21/21 Team [...] Active Andi Ware MD Attending Provider Active [employer] Relationship Specialty Start Date End Date Mona Baker [address] [place] [address] PCP - General Family Medicine 02/16/23 [employer] Relationship Specialty Start Date End Date Mona Baekr [address] [place] [address] PCP - General Family Medicine 02/16/23 [employer] Relationship Specialty Start Date End Date Mona Baker [address] [place] [address] PCP - General Family Medicine 02/16/23 [employer] Relationship Specialty Start Date End Date Mona Baker MD [address] [place] [address] PCP - General 06/04/14 [employer] Relationship Specialty Start Date End Date Mona Baker MD [address] [place] [address] PCP - General 06/04/14 Elly Hill, HORTICULTURE SUPERINTENDENT-METEOROLOGICAL OBSERVER [address] [place] [address], [facility] B, [facility] [address] [place] [address] Nurse Practitioner Neurology 03/30/23 Team Status: Inactive [...] Provider Active Sta rt: July 26, 2023 [employer] Relationship Specialty Start Date End Date Mona Baker MD [address] [place] [address] PCP - General 06/04/14 Elly Hill, HORTICULTURE SUPERINTENDENT-METEOROLOGICAL OBSERVER [facility], [place] [address] [place] [address] Nurse Practitioner Neurology 03/30/23 [employer] Relationship Specialty Start Date End Date Mona Baker MD [address] [place] [address] PCP - General Family Medicine 06/21/21 Team Status: Inactive Member Role Status Dates Mona Baker MD Primary Care Provider Active Start: January 03, 2024 End: January 03, 2024 Janusz Ruiz MD Attending Provider Active Sta rt: January 03, 2024 End: January 03, 2024 [employer] Relationship Specialty Start Date End Date Mona Baker MD [address] [place] [address] PCP - General Family Medicine 06/21/21 [employer] Relationship Specialty Start Date End Date Mona Baker MD [address] [place] [address] PCP - General Family Medicine 07/25/23 [employer] Relationship Specialty Start Date End Date Mona Baker MD [address] [place] [address] PCP - General Family Medicine 07/25/23 [employer] Relationship Specialty Start Date End Date Mona Baker MD [address] [place] [address] PCP - General Family Medicine 07/25/23 [employer] Relationship Specialty Start Date End Date Mona Baker MD [address] [place] [address] PCP - General Family Medicine 07/25/23 [employer] Relationship Specialty Start Date End Date Mona Baker MD [address] [place] [address] PCP - General Family Medicine 07/25/23 [employer] Relationship Specialty Start Date End Date Mona aBker MD [address] [place] [address] PCP - General Family Medicine 07/25/23 [employer] Relationship Specialty Start Date End Date Mona Baker MD [address] [place] [address] PCP - General 06/04/14 Elly Hill, HORTICULTURE SUPERINTENDENT-METEOROLOGICAL OBSERVER [address] [place] [address] Nurse Practitioner Neurology 03/30/23 (unrecognized sect ion and content) No Status [...] section and content) DATE CREATED AUTHOR 08/13/2021 [facility] dical Specialist DATE CREATED AUTHOR AUTHOR'S ORGANIZ ATION 08/22/2022 [facility] DATE CREATED AUTHOR AUTHOR'S ORGANIZ ATION 09/03/2022 [facility] DATE CREATED AUTHOR AUTHOR'S ORGANIZ ATION 10/05/2022 [facility] DATE CREATED AUTHOR AUTHOR'S ORGANIZ ATION 11/21/2022 [employer] DATE CREATED AUTHOR AUTHOR'S ORGANIZ ATION 03/08/2023 [facility] DATE CREATED AUTHOR AUTHOR'S ORGANIZ ATION 11/09/2023 [facility] DATE CREATED AUTHOR AUTHOR'S ORGANIZ ATION 11/25/2023 [facility] DATE CREATED AUTHOR AUTHOR'S ORGANIZ ATION 11/27/2023 [facility] DATE CREATED AUTHOR AUTHOR'S ORGANIZ ATION 12/26/2023 [facility] DATE CREATED AUTHOR AUTHOR'S ORGANIZ ATION 01/05/2024 [facility] DATE CREATED AUTHOR AUTHOR'S ORGANIZ ATION 01/19/2024 [facility] DATE CREATED AUTHOR AUTHOR'S ORGANIZ ATION 01/30/2024 [facility] DATE CREATED AUTHOR AUTHOR'S ORGANIZ ATION 01/31/2024 [facility] DATE CREATED AUTHOR AUTHOR'S ORGANIZ ATION 02/10/2024 [facility] DATE CREATED AUTHOR AUTHOR'S ORGANIZ ATION 02/21/2024 [facility] DATE CREATED AUTHOR AUTHOR'S ORGANIZ ATION 02/25/2024 [facility] DATE CREATED AUTHOR AUTHOR'S ORGANIZ ATION 03/02/2024 [facility] DATE CREATED AUTHOR AUTHOR'S ORGANIZ ATION 03/03/2024 [facility] DATE CREATED AUTHOR AUTHOR'S ORGANIZ ATION 03/04/2024 [facility] DATE CREATED AUTHOR AUTHOR'S ORGANIZ ATION 03/05/2024 [facility] DATE CREATED AUTHOR AUTHOR'S ORGANIZ ATION 03/09/2024 [facility] DATE CREATED AUTHOR AUTHOR'S ORGANIZ ATION 03/10/2024 [facility] DATE CREATED AUTHOR AUTHOR'S ORGANIZ ATION 03/14/2024 [facility] dical Specialists EP[facility] DATE CREATED AUTHOR AUTHOR'S ORGANIZ ATION 03/16/2024 [facility] DATE CREATED AUTHOR AUTHOR'S ORGANIZ ATION 03/23/2024 [facility] DATE CREATED AUTHOR AUTHOR'S ORGANIZ ATION 03/24/2024 [facility] DATE CREATED AUTHOR AUTHOR'S ORGANIZ ATION 03/29/2024 [facility] DATE CREATED AUTHOR AUTHOR'S ORGANIZ ATION 04/05/2024 [facility] tals Ambulatory DATE CREATED AUTHOR AUTHOR'S ORGANIZ ATION 04/05/2024 [facility] Goals (unrecognized [...] BE BASED ON THE PRIMARY CLINICAL RECORDS. [employer] provides no warranty or guarantee of the accuracy or completeness of information in this document.
[2024-04-07 07:02] LABS: Basophils Absolute Auto 0.1 10^3/uL (0.0-0.1); Basophils Percent Auto 0.8 % (0.2-2.0); Eosinophils Absolute Auto 0.3 10^3/uL (0.0-0.7); Hematocrit 33.2 % (42.0-54.0); Hemoglobin 10.4 g/dL (14.0-18.0); Immature Granulocytes Abs Auto 0.06 10^3/uL (0.00-0.03); Immature Granulocytes Pct Auto 0.8 % (0.0-0.5); Lymphocytes Absolute Auto 1.3 10^3/uL (1.2-3.8); Lymphocytes Percent Auto 16.7 % (20.5-60.0); Mean Corpuscular HGB Conc 31.3 g/dL (29.9-35.2); Mean Corpuscular Hemoglobin 29.1 pg (25.9-34.0); Mean Corpuscular Volume 92.7 fL (80.0-94.0); Mean Platelet Volume 8.7 fL (9.5-13.5); Monocytes Absolute Auto 0.6 10^3/uL (0.3-0.8); Monocytes Percent Auto 7.9 % (1.7-12.0); Neutrophils Absolute Auto 5.2 10^3/uL (1.4-6.5); Neutrophils Percent Auto 69.8 % (43.0-75.0); Platelet Count 256 10^3/uL (150-450); Red Blood Count 3.58 10^6/uL (4.70-6.10); Red Cell Distribution Width 14.8 % (11.0-15.0); White Blood Count 7.5 10^3/uL (4.0-11.0)
[2024-04-07 07:10] VITALS: BP 186/75; PULSE 60; TEMP 36.1; O2SAT 94
[2024-04-07 07:28] LABS: INR 1.15; Partial Thromboplastin Time 33.2 sec (22.3-36.2)
[2024-04-07 07:32] LABS: Glucometer 155 mg/dL (74-106)
[2024-04-07] MEDS: LACTATED RINGER'S SOLUTION 1,000 ML 50 ML IV (07:50)
--- NOTE | 2024-04-07 09:01 | XR_ITS ---
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 Extensive fusion hardware with cannulated screws and plates and no new fracture or dislocation. SOFT TISSUES:Negative. No visible soft tissue swelling. EFFUSION:None visible. OTHER: Negative. XR/XR foot LT min 3V IMPRESSION: Extensive degenerative and postsurgical changes Electronically authenticated by: ENOC BACA Date: 04/09/2024 08:54
[2024-04-07] MEDS: VANCOMYCIN HCL 1,250 MG in 0.9 % SODIUM CHLORIDE 250 ML 166.667 MG IV (09:07)
--- NOTE | 2024-04-07 09:27 | P.ORON_ITS ---
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 Despite offloading and local wound care his wound has recurred and has been slow to heal. At recent appointment in the wound center I met with the patient and his family and discussed the potential risks and benefits of surgical intervention. Patient and family wish to undergo the above procedure. Intraoperative findings: 1.2 x 1.0 cm ulceration subcuboid without sign of infection. Wound was full-thickness and associated with plantarly prominent cuboid. Bone was somewhat soft consistent with Charcot but bled appropriately and was of normal color. No evidence of deep space infection. Wound did bleed appropriately as well. Following excision of the bone midfoot was stressed and was noted to be stable Procedure in detail: Patient was identified preop holding by myself which time correct side and site were marked and consent was obtained. Preoperative antibiotics were started. Patient's brought back in the operating theater placed on table in supine position. Tourniquet was placed in the left lower extremity was prepped and draped in usual sterile fashion. Formal timeout was performed. Local anesthesia was administered using 10 cc of 1% lidocaine plain and 10 cc of 0.5% Marcaine plain. The operative extremity was exsanguinated and tourniquet was inflated. The ulcer on the plantar lateral midfoot was excised and a 3-1 ellipse transversely along the skin tension lines. All questionable and nonviable tissue was excised. Combination of sharp and blunt dissection with all bleeders being coagulated gained access to the plantarly prominent bone. The prominence was excised with a combination of osteotomes, rongeurs and a power rasp. The area was contoured to ensure no prominent edges remained. Surgical site was irrigated with copious months of sterile saline. The midfoot remained stable with stress examination on the table. Then the wound was closed in a single layer without skin tension. The tourniquet was deflated with a prompt hyperemic response. A dry sterile dressing with Xeroform 4 x 4's and Kerlix was applied. Then a well-padded total contact cast was applied accordingly using the TCC-EZ system. Postoperative plan: Discharge home under family's care. Prescriptions were sent to his pharmacy using the office EMR. Patient may weight-bear in the total contact cast with use of cane or walker but is to rest and elevate is much as possible. Will follow-up in 5 to 7 days for cast change Patient may restart Coumadin as recommended by med management who will be monitoring patient's INR and bridging the patient to therapeutic levels Implants: none Anesthesia: MAC Surgeon: Jude Ma Estimated blood loss (mL): 10 Pathology: other (Ulcer and bone) Condition: stable Disposition: PACU
[2024-04-07] MEDS: BUPIVACAINE HCL 0.5% PF 50 MG/10 ML VIAL INJ (09:39)
[2024-04-07] MEDS: LIDOCAINE HCL 1% 100 MG/10 ML MDV INJ (09:39)
[2024-04-07 10:22] VITALS: BP 159/72; PULSE 60; TEMP 36.3; O2SAT 95
[2024-04-07 10:37] VITALS: BP 190/88; PULSE 60; O2SAT 95
[2024-04-07 10:46] LABS: Glucometer 142 mg/dL (74-106)
[2024-04-07 10:59] VITALS: BP 194/79; PULSE 59; O2SAT 96
== END 2024-04-07 11:10 | disposition home or self-care (01) ==
PROVIDERS: Anesthesiology; PCP Student in an Organized Health Care Education/Training Program; Visit Provider Podiatrist Foot & Ankle Surgery
PROC: (CPT 28120; principal; 2024-04-07 08:10)
DX: E11.621 Type 2 diabetes mellitus with foot ulcer (principal); E11.610 Type 2 diabetes mellitus with diabetic neuropathic arthropathy; Z79.01 Long term (current) use of anticoagulants; I25.10 Atherosclerotic heart disease of native coronary artery without angina pectoris; Z95.0 Presence of cardiac pacemaker; E11.42 Type 2 diabetes mellitus with diabetic polyneuropathy; L97.422 Non-pressure chronic ulcer of left heel and midfoot with fat layer exposed; Z95.1 Presence of aortocoronary bypass graft; G20.A1 Parkinson's disease without dyskinesia, without mention of fluctuations; Z79.4 Long term (current) use of insulin; Z79.84 Long term (current) use of oral hypoglycemic drugs; I48.91 Unspecified atrial fibrillation; Z95.5 Presence of coronary angioplasty implant and graft; I69.954 Hemiplegia and hemiparesis following unspecified cerebrovascular disease affecting left non-dominant side; E03.9 Hypothyroidism, unspecified
CPT/HCPCS: 28120; 36415; 73630; 82948; 85025; 85610; 85730; 88304; 88305; J0665; J2250; J2704; J3010; J3370

== ENCOUNTER 2024-04-22 15:56 | Outpatient (OUT) | payer MEDICARE, SELFPAY | END 2024-04-22 15:57 | disposition home or self-care (01) | LOC: WC 15:57 | PROVIDERS: PCP Student in an Organized Health Care Education/Training Program; Visit Provider Physician Assistant | DX: E11.621 Type 2 diabetes mellitus with foot ulcer (principal); L97.422 Non-pressure chronic ulcer of left heel and midfoot with fat layer exposed | CPT/HCPCS: 29445 ==

== ENCOUNTER 2024-04-29 09:58 | Outpatient (OUT) | payer MEDICARE, SELFPAY | END 2024-04-29 09:59 | disposition home or self-care (01) | LOC: WC 09:58 | PROVIDERS: PCP Student in an Organized Health Care Education/Training Program; Visit Provider Physician Assistant | DX: E11.621 Type 2 diabetes mellitus with foot ulcer (principal); L97.422 Non-pressure chronic ulcer of left heel and midfoot with fat layer exposed | CPT/HCPCS: 29445 ==

== ENCOUNTER 2024-05-07 15:13 | Outpatient (OUT) | payer MEDICARE, SELFPAY | END 2024-05-07 15:14 | disposition home or self-care (01) | LOC: WC 15:13 | PROVIDERS: PCP Student in an Organized Health Care Education/Training Program; Visit Provider Physician Assistant | DX: E11.621 Type 2 diabetes mellitus with foot ulcer (principal); L97.422 Non-pressure chronic ulcer of left heel and midfoot with fat layer exposed | CPT/HCPCS: 29445 ==

== ENCOUNTER 2024-05-16 11:25 | Outpatient (OUT) | payer MEDICARE, SELFPAY | END 2024-05-16 11:26 | disposition home or self-care (01) | LOC: WC 11:25 | PROVIDERS: PCP Student in an Organized Health Care Education/Training Program; Visit Provider Podiatrist Foot & Ankle Surgery | DX: E11.621 Type 2 diabetes mellitus with foot ulcer (principal); L97.422 Non-pressure chronic ulcer of left heel and midfoot with fat layer exposed | CPT/HCPCS: G0463 ==

== ENCOUNTER 2024-06-10 15:29 | Outpatient (OUT) | payer MEDICARE, SELFPAY | END 2024-06-10 15:30 | disposition home or self-care (01) | LOC: WC 15:29 | PROVIDERS: PCP Student in an Organized Health Care Education/Training Program; Visit Provider Physician Assistant | DX: E11.621 Type 2 diabetes mellitus with foot ulcer (principal); L97.422 Non-pressure chronic ulcer of left heel and midfoot with fat layer exposed | CPT/HCPCS: G0463 ==